=== PATIENT | female | born 1995 | race Caucasian/White ===

== ENCOUNTER 2017-10-25 19:30 | Emergency (ER) | payer OTHER ==
[2017-10-25] MEDS ORDERED: IPRATROPIUM BROM 0.5MG/2.5ML ONE ×2 (20:11→20:13)
[2017-10-25] MEDS ORDERED: ONDANSETRON 4 MG (ODT) TAB ONE ×2 (20:12→20:14)
[2017-10-25] MEDS ORDERED: LEVALBUTEROL 1.25 MG/3 ML NEB ONE ×2 (20:12→20:14)
--- NOTE | 2017-10-25 20:46 | ER ---
Nurse's Notes [facility] Name: Deborah Torres Age: 22 yrs Sex: Female : 1995 Arrival Date: 10/25/2017 Time: 19:36 Bed 18 Private MD: Diagnosis: Cough Presentation: 10/25 19:44 Presenting complaint: Patient states: cough \T\ congestion x 2 weeks. Was seen by PCP and aa1 given allergy medicine, nasal spray, and an inhaler but nothing is helping. Transition of care: patient was not received from another setting of care. Onset of symptoms was October 10, 2017. Care prior to arrival: None. 19:44 Method Of Arrival: Ambulatory aa1 19:44 Acuity: NORM 4 aa1 Triage Assessment: 19:46 General: Appears in no apparent distress. comfortable, Behavior is calm, cooperative, aa1 appropriate for age. 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 - Social history:: Smoking status: Patient uses tobacco products, denies chronic smoking, but will smoke occasionally. Screenin:00 Abuse screen: Denies threats or abuse. Denies injuries from another. Nutritional aj1 screening: No deficits noted. Tuberculosis screening: No symptoms or risk factors identified. Fall Risk None identified. Assessment: 20:00 General: Appears in no apparent distress. uncomfortable, Behavior is calm, cooperative, aj1 appropriate for age. Pain: Complains of pain in left aspect of posterior pharynx and right aspect of posterior pharynx Pain does not radiate. Neuro: Level of Consciousness is awake, alert, obeys commands, Oriented to person, place, time, situation, Speech is normal, Facial symmetry appears normal. Cardiovascular: Heart tones S1 S2 present Patient's skin is warm and dry. Rhythm is regular. Respiratory: Airway is patent Respiratory effort is even, unlabored, Respiratory pattern is regular, symmetrical, Breath sounds are clear bilaterally. GI: Abdomen is non-distended, Reports vomiting, Patient currently denies diarrhea, nausea. : Denies burning with urination. EENT: Reports nasal congestion nasal discharge sore throat. Derm: No signs and/or symptoms reported regarding the dermatologic system. Skin is pink, warm \T\ dry. normal. Musculoskeletal: No signs and/or symptoms reported regarding the musculoskeletal system. Circulation, motion, and sensation intact. 21:11 Reassessment: Patient appears in no apparent distress at this time. No changes from aj1 previously documented assessment. Patient and/or family updated on plan of care and expected duration. Pain level reassessed. Patient is alert, oriented x 3, equal unlabored respirations, skin warm/dry/pink. Vital Signs: 19:46 BP 134 / 82; Pulse 117; Resp 20; Temp 97.6; Pulse Ox 98% on R/A; Weight 84.82 kg; aa1 Height 5 ft. 4 in. (162.56 cm); Pain 10/10; 21:06 BP 132 / 92; Pulse 127; Resp 20; Pulse Ox 100% on R/A; aj1 19:46 Body Mass Index 32.10 (84.82 kg, 162.56 cm) aa1 21:06 Notified Matt Hooper NP of patient vital signs, ok to discharge patietn aj1 ED Course: 19:36 Patient arrived in ED. al2 19:45 Triage completed. aa1 19:46 Arm band placed on left wrist. Patient placed in an exam room, on a stretcher. aa1 19:47 Tea Hooper [facility]C [facility]. kb 19:47 Sheng Griffith MD is Attending Physician. kb 19:51 Thea Jules, ELÍAS is Primary Nurse. aj1 20:00 Patient has correct armband on for positive identification. Bed in low position. Call aj1 light in reach. Side rails up X 1. 20:00 Strep Sent. aa1 20:00 No provider procedures requiring assistance completed. Patient did not have IV access aj during this emergency room visit. 20:27 Patient moved to radiology via wheelchair. kp1 20:33 Patient moved back from radiology. kp1 Administered Medications: 20:00 Drug: Xopenex (3) 1.25 mg Route: Inhalation; aa1 20:00 Drug: AtroVENT Aerosol 0.5 mg Route: Inhalation; aa1 20:00 Drug: Zofran 4 mg Route: PO; aa1 21:12 Follow up: Response: No adverse reaction aj1 Outcome: 20:46 Discharge ordered by . kb 21:11 Discharged to home ambulatory. aj1 21:11 Condition: good 21:11 Discharge instructions given to patient, Instructed on discharge instructions, follow up and referral plans. Demonstrated understanding of instructions, follow-up care. 21:11 Patient left the ED. aj1 Signatures: Tea Hooper, HUMERA-C SIEBEL CRM DEVELOPER-Thea Padgett RN RN aj1 Myriam Gonzalez RN RN aa1 Cherry Rosales kp1 Cici Magana al2
--- NOTE | 2017-10-25 20:46 | EDPHYS ---
Physician Documentation [facility] Name: Deborah Torres Age: 22 yrs Sex: Female : 1995 Arrival Date: 10/25/2017 Time: 19:36 Bed 18 Private MD: ED Physician Sheng Griffith HPI: 10/25 19:55 This 22 yrs old Female presents to ER via Ambulatory with complaints of kb Cough, Congestion, Fever. 19:55 The patient or guardian reports cough, that is intermittent, described as moderate. kb Onset: The symptoms/episode began/occurred 2 week(s) ago. Severity of symptoms: At their worst the symptoms were mild, moderate, in the emergency department the symptoms are unchanged. Modifying factors: The symptoms are alleviated by nothing, the symptoms are aggravated by nothing. Associated signs and symptoms: Pertinent positives: rhinorrhea, sore throat, vomiting, Pertinent negatives: chest pain, diarrhea, ear ache, fever, nausea. The patient has not experienced similar symptoms in the past. The patient has not recently seen a physician. 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 - Social history:: Smoking status: Patient uses tobacco products, denies chronic smoking, but will smoke occasionally. ROS: 19:54 Cardiovascular: Negative for chest pain, palpitations, and edema, Back: Negative for kb injury and pain, : Negative for injury, bleeding, discharge, and swelling, MS/Extremity: Negative for injury and deformity, Skin: Negative for injury, rash, and discoloration, Neuro: Negative for headache, weakness, numbness, tingling, and seizure. 19:54 Constitutional: Positive for fever, Negative for body aches, chills, fatigue, malaise, poor PO intake, weight loss. 19:54 ENT: Positive for rhinorrhea, sinus congestion, sore throat. 19:54 Respiratory: Positive for cough, Negative for dyspnea on exertion, hemoptysis, orthopnea, pleurisy, shortness of breath, sputum production, wheezing. Exam: 19:54 Constitutional: This is a well developed, well nourished patient who is awake, alert, kb and in no acute distress. Head/Face: Normocephalic, atraumatic. ENT: Nares patent. No nasal discharge, no septal abnormalities noted. Tympanic membranes are normal and external auditory canals are clear. Oropharynx with no redness, swelling, or masses, exudates, or evidence of obstruction, uvula midline. Mucous membranes moist. Neck: Trachea midline, no thyromegaly or masses palpated, and no cervical lymphadenopathy. Supple, full range of motion without nuchal rigidity, or vertebral point tenderness. No Meningismus. Chest/axilla: Normal chest wall appearance and motion. Nontender with no deformity. No lesions are appreciated. Cardiovascular: Regular rate and rhythm with a normal S1 and S2. No gallops, murmurs, or rubs. Normal PMI, no JVD. No pulse deficits. Respiratory: Lungs have equal breath sounds bilaterally, clear to auscultation and percussion. No rales, rhonchi or wheezes noted. No increased work of breathing, no retractions or nasal flaring. Abdomen/GI: Soft, non-tender, with normal bowel sounds. No distension or tympany. No guarding or rebound. No evidence of tenderness throughout. Skin: Warm, dry with normal turgor. Normal color with no rashes, no lesions, and no evidence of cellulitis. MS/ Extremity: Pulses equal, no cyanosis. Neurovascular intact. Full, normal range of motion. Neuro: Awake and alert, GCS 15, oriented to person, place, time, and situation. Cranial nerves II-XII grossly intact. Motor strength 5/5 in all extremities. Sensory grossly intact. Cerebellar exam normal. Normal gait. Vital Signs: 19:46 BP 134 / 82; Pulse 117; Resp 20; Temp 97.6; Pulse Ox 98% on R/A; Weight 84.82 kg; aa1 Height 5 ft. 4 in. (162.56 cm); Pain 10/10; 21:06 BP 132 / 92; Pulse 127; Resp 20; Pulse Ox 100% on R/A; aj1 19:46 Body Mass Index 32.10 (84.82 kg, 162.56 cm) aa1 21:06 Notified Matt Hooper NP of patient vital signs, ok to discharge fordmeghana aj1 MDM: 19:47 Patient medically screened. kb 19:52 Data reviewed: vital signs, nurses notes. Data interpreted: Pulse oximetry: on room air kb is 98 %. Interpretation: normal. Counseling: I had a detailed discussion with the patient and/or guardian regarding: the historical points, exam findings, and any diagnostic results supporting the discharge/admit diagnosis, lab results, radiology results, the need for outpatient follow up, a family practitioner, to return to the emergency department if symptoms worsen or persist or if there are any questions or concerns that arise at home. 10/25 19:48 Order name: Strep 10/25 20:36 Order name: Group A Streptococcus Rapid Sc; Complete Time: 20:37 EDMS 10/25 19:48 Order name: Chest Pa And Lat (2 Views) XRAY 10/25 20:52 Order name: RAD; Complete Time: 20:55 EDMS Administered Medications: 20:00 Drug: Xopenex (3) 1.25 mg Route: Inhalation; aa1 20:00 Drug: AtroVENT Aerosol 0.5 mg Route: Inhalation; aa1 20:00 Drug: Zofran 4 mg Route: PO; aa1 21:12 Follow up: Response: No adverse reaction aj1 Disposition: 21:13 Co-signature as Attending Physician, Sheng Griffith MD. pkl Disposition: 10/25/17 20:46 Discharged to Home. Impression: Cough. - Condition is Stable. - Discharge Instructions: Cough, Adult, [id number]. - Medication Reconciliation Form, Thank You Letter, Antibiotic Education, Prescription Opioid Use form. - Follow up: Emergency Department; When: As needed; Reason: Worsening of condition. Follow up: Private Physician; When: 2 - 3 days; Reason: Recheck today's complaints, Continuance of care, Re-evaluation by your physician. Signatures: Dispatcher [employer] EDPR Tea Hooper, NAM SNOWP-Thea Padgett RN RN aj1 Myriam Gonzalez RN RN aa1 Sheng Griffith, MD MD pkl
--- NOTE | 2017-10-25 20:52 | RAD REPORT ---
EXAM DESCRIPTION: RAD - Chest Pa And Lat (2 Views) - 10/25/2017 8:33 pm CLINICAL HISTORY: Persistent cough and congestion COMPARISON: October 2015 TECHNIQUE: PA and lateral views of the chest were obtained. FINDINGS: The lungs are clear. Lung markings are similar to comparison. Heart size is normal and ce ntral vasculature is within normal limits. No pleural effusion or pneumothorax seen. No acute bony finding noted. No aortic abnormality. IMPRESSION: No acute cardiopulmonary process. No significant interval change.
[2017-10-25 21:23] VITALS: BP 132/92; O2SAT 100
[2017-10-25 21:24] VITALS: TEMP 97.6
== END 2017-10-25 21:11 | disposition home or self-care (01) ==
LOC: ER 19:30
DX: R05 Cough (principal); F41.9 Anxiety disorder, unspecified; F32.9 Major depressive disorder, single episode, unspecified; J45.909 Unspecified asthma, uncomplicated; Z72.0 Tobacco use; Z88.5 Allergy status to narcotic agent; Z88.8 Allergy status to other drugs, medicaments and biological substances; Z91.048 Other nonmedicinal substance allergy status
CPT/HCPCS: 71046; 87070; 87081; 99284

== ENCOUNTER 2017-11-06 11:57 | Emergency (ER) | payer OTHER ==
--- OUTSIDE RECORDS SUMMARY | 2017-11-06 12:00 | XMS REPORT | Clinical Summary ---
:1995 Author Organization [facility] Address [address] [place] [address] Phone Care Team Providers Name Role Phone Unavailable Primary Care Provider Unavailable Allergies Not on File Current Medications Not on file Active Problems Not on file Encounters Date Type Specialty Care Team Description 02/05/2017 Telephone Transplant Anurag Belcher RN Kidney Transplant Donor Pre-evaluation 02/05/2017 Abstract Transplant Abdullahi Terrazas after 11/05/2016 Social History Tobacco Use Types Packs/Day Years Used Date Never Assessed Sex Assigned at Date Recorded Not on file Last Filed Vital Signs Not on file Plan of Treatment Health Maintenance Due Date Last Done Comments INFLUENZA VACCINE 05/03/2017 Results Not on fileafter 11/05/2016
[2017-11-06 12:50] LABS: Absolute Lymphocytes (CBC) 2.4 K/uL (0.7-4.9); Absolute Monocytes 0.4 K/uL (0.1-1.3); Absolute Neutrophil 5.4 K/uL (1.8-8.0); Basophils % 0.4 % (0-1.3); Eosinophils % 4.6 % (0-4.4); Hematocrit 35.4 % (36.0-45.0); Lymphocytes % 27.4 % (15.3-44.8); MCH 19.1 pg (27.0-35.0); MCV 62.4 fL (80-100); MPV 9.2 fL (7.6-11.3); Monocytes % 4.6 % (3.3-12.3); RBC Red Blood Cell Count 5.68 M/uL (3.86-4.86)
[2017-11-06 12:52] LABS: Bicarbonate 22 mEq/L (21-31); Glucose Level 102 mg/dL (65-120); Lipase 22 U/L (22-51); Potassium 3.8 mEq/L (3.6-5.0); Sodium Level 136 mEq/L (135-145)
--- NOTE | 2017-11-06 12:57 | RAD REPORT ---
EXAM DESCRIPTION: US - Abdomen Exam Limited - 11/06/2017 12:31 pm CLINICAL HISTORY: Abdominal pain. COMPARISON: 2012 FINDINGS: The gallbladder wall is not thickened. A gallstone is not seen. The biliary tree is normal caliber. Fatty infiltration liver seen IMPRESSION: Unremarkable gallbladder ultrasound.
[2017-11-06 12:58] LABS: ALT/SGPT 80 IU/L (10-60); AST/SGOT 50 IU/L (10-42); Alkaline Phosphatase 113 IU/L (42-121); Amylase Level 51 U/L (28-100); BUN Blood Urea Nitrogen 14 mg/dL (6-20); Bilirubin Direct 0.1 mg/dL (0-0.2); Bilirubin Total 0.5 mg/dL (0.3-1.2); Protein, Total 7.6 g/dL (6.0-8.3)
[2017-11-06 13:12] LABS: Blood Morphology Comment NOTED (NOT SEEN); Hypochromasia 2+; Platelet Estimate ADEQ; Urine White Blood Cell Casts OK
--- NOTE | 2017-11-06 13:15 | ER ---
Nurse's Notes [facility] Name: Deborah Torres Age: 22 yrs Sex: Female : 1995 Arrival Date: 11/06/2017 Time: 11:59 Bed 20 Private MD: Diagnosis: Upper abdominal pain, unspecified Presentation: 11/06 12:02 Presenting complaint: Patient states: I had a miscarriage in August, got a depo-shot la1 last week and been having epigastric pain that radiates to my back and nausea. Transition of care: patient was not received from another setting of care. Onset of symptoms was November 06, 2017. Care prior to arrival: None. 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 - Social history:: Smoking status: Patient uses tobacco products, denies chronic smoking, but will smoke occasionally. Screenin:24 Abuse screen: Denies threats or abuse. Nutritional screening: No deficits noted. em Tuberculosis screening: No symptoms or risk factors identified. Fall Risk None identified. Assessment: 12:12 General: Appears in no apparent distress. uncomfortable, Behavior is calm, cooperative. em Pain: Complains of pain in epigastric area, right upper quadrant and left upper quadrant Pain radiates to left low back and right low back Pain currently is 8 out of 10 on a pain scale. Quality of pain is described as crampy, pressure, Pain began 2 weeks ago. Neuro: Level of Consciousness is awake, alert, obeys commands, Oriented to person, place, time, situation. Cardiovascular: Capillary refill < 3 seconds Patient's skin is warm and dry. Respiratory: Airway is patent Respiratory effort is even, unlabored, Respiratory pattern is regular, symmetrical. GI: Abdomen is flat, Bowel sounds present X 4 quads. Abd is soft X 4 quads Abdomen is tender to palpation in right upper quadrant and left upper quadrant Reports nausea, vomiting, Patient currently denies diarrhea. : Reports urinary frequency, Denies burning with urination. EENT: No signs and/or symptoms were reported regarding the EENT system. Derm: Skin is intact, Skin is pink, warm \T\ dry. Musculoskeletal: Range of motion: intact in all extremities. 12:15 General: The previous assessment is accurate, call light remains within reach. . ss 12:52 Reassessment: Patient appears in no apparent distress at this time. Patient and/or em family updated on plan of care and expected duration. Pain level reassessed. Patient is alert, oriented x 3, equal unlabored respirations, skin warm/dry/pink. Patient states feeling better. 13:40 Reassessment: Patient appears in no apparent distress at this time. Patient and/or em family updated on plan of care and expected duration. Pain level reassessed. Patient is alert, oriented x 3, equal unlabored respirations, skin warm/dry/pink. Patient states feeling better. Patient states symptoms have improved. Vital Signs: 12:03 BP 125 / 100; Pulse 102; Resp 19; Temp 98.2(TE); Pulse Ox 100% on R/A; Weight 136.08 la1 kg; Height 5 ft. 4 in. (162.56 cm); 12:53 BP 120 / 95; Pulse 85; Resp 18; Pulse Ox 100% on R/A; em 13:40 BP 123 / 93; Pulse 88; Resp 18; Pulse Ox 99% on R/A; Pain 3/10; em 12:03 Body Mass Index 51.49 (136.08 kg, 162.56 cm) la1 ED Course: 11:59 Patient arrived in ED. as 12:01 Tea Hooper FNP-C is PHCP. kb 12:01 Shawn Pollard MD is Attending Physician. kb 12:03 Triage completed. la1 12:04 Arm band placed on right wrist. la1 12:08 Thanh Connolly LVN is Primary Nurse. em 12:22 No provider procedures requiring assistance completed. Initial lab(s) drawn, by me, em sent to lab. Inserted saline lock: 20 gauge in right antecubital area, using aseptic technique. Blood collected. 12:24 Patient has correct armband on for positive identification. Placed in gown. Bed in low em position. Call light in reach. Side rails up X2. 12:25 Urine collected: clean catch specimen, clear. mh5 12:28 US Abdomen Limited In Process Unspecified. EDMS 12:32 Ultrasound completed. Patient tolerated well. sg3 13:49 IV discontinued, intact, bleeding controlled, No redness/swelling at site. Pressure em dressing applied. Administered Medications: 13:46 Drug: Bentyl 20 mg Route: PO; em 13:46 Follow up: Response: Medication administered at discharge. em Outcome: 13:14 Discharge ordered by . nicki 13:49 Discharged to home ambulatory. em 13:49 Condition: good 13:49 Discharge instructions given to patient, Instructed on discharge instructions, follow up and referral plans. medication usage, Demonstrated understanding of instructions, follow-up care, medications, Prescriptions given X 1. 13:51 Patient left the ED. em Signatures: Dispatcher [employer] EDWI Tea Hooper, RIPSHEAR OPERATOR-C RIPSHEAR OPERATOR-Ckb Thanh Connolly, POISER POISER em Radha Bourne Shelby, RN RN ss Attema, Lee, RN RN la1 Martinez, [facility] Lesly Dietz sg3
--- NOTE | 2017-11-06 13:15 | EDPHYS ---
Physician Documentation [facility] Name: Deborah Torres Age: 22 yrs Sex: Female : 1995 Arrival Date: 11/06/2017 Time: 11:59 Bed 20 Private MD: ED Physician Shawn Pollard HPI: 11/06 12:21 This 22 yrs old Female presents to ER via Ambulatory with complaints of kb Abdominal Pain. 12:21 The patient presents with abdominal pain in the upper abdomen. Onset: The kb symptoms/episode began/occurred 1 week(s) ago. The symptoms do not radiate. Associated signs and symptoms: Pertinent positives: diarrhea, Pertinent negatives: nausea and vomiting. The symptoms are described as achy, constant. Modifying factors: The symptoms are alleviated by nothing, the symptoms are aggravated by pressure. Severity of pain: At its worst the pain was moderate in the emergency department the pain is unchanged. The patient has not experienced similar symptoms in the past. The patient has not recently seen a physician. CHICKEN BONER: 13:50 LMP 10/28/2017 em Historical: - Allergies: 12:03 HYDROCODONE; la1 12:03 promethazine HCl; la1 12:03 Tape; la1 - PMHx: 12:03 Anxiety; Asthma; Bipolar disorder; Depression; Pre-eclampsia; premature births, 2 la1 miscarrages; Thyroid problem; - Immunization history:: Adult Immunizations up to date. - Social history:: Smoking status: Patient uses tobacco products, denies chronic smoking, but will smoke occasionally. ROS: 12:22 Constitutional: Negative for fever, chills, and weight loss, Cardiovascular: Negative kb for chest pain, palpitations, and edema, Respiratory: Negative for shortness of breath, cough, wheezing, and pleuritic chest pain, : Negative for injury, bleeding, discharge, and swelling, MS/Extremity: Negative for injury and deformity, Skin: Negative for injury, rash, and discoloration, Neuro: Negative for headache, weakness, numbness, tingling, and seizure. 12:22 Abdomen/GI: Positive for abdominal pain, diarrhea, Negative for nausea and vomiting. Exam: 12:22 Constitutional: This is a well developed, well nourished patient who is awake, alert, kb and in no acute distress. Head/Face: Normocephalic, atraumatic. Chest/axilla: Normal chest wall appearance and motion. Nontender with no deformity. No lesions are appreciated. Cardiovascular: Regular rate and rhythm with a normal S1 and S2. No gallops, murmurs, or rubs. Normal PMI, no JVD. No pulse deficits. Respiratory: Lungs have equal breath sounds bilaterally, clear to auscultation and percussion. No rales, rhonchi or wheezes noted. No increased work of breathing, no retractions or nasal flaring. Skin: Warm, dry with normal turgor. Normal color with no rashes, no lesions, and no evidence of cellulitis. MS/ Extremity: Pulses equal, no cyanosis. Neurovascular intact. Full, normal range of motion. Neuro: Awake and alert, GCS 15, oriented to person, place, time, and situation. Cranial nerves II-XII grossly intact. Motor strength 5/5 in all extremities. Sensory grossly intact. Cerebellar exam normal. Normal gait. 12:22 Abdomen/GI: Inspection: abdomen appears normal, Bowel sounds: normal, in all quadrants, Palpation: soft, in all quadrants, mild abdominal tenderness, in the right lower quadrant and left lower quadrant, moderate abdominal tenderness, in the right upper quadrant and left upper quadrant. Vital Signs: 12:03 BP 125 / 100; Pulse 102; Resp 19; Temp 98.2(TE); Pulse Ox 100% on R/A; Weight 136.08 la1 kg; Height 5 ft. 4 in. (162.56 cm); 12:53 BP 120 / 95; Pulse 85; Resp 18; Pulse Ox 100% on R/A; em 13:40 BP 123 / 93; Pulse 88; Resp 18; Pulse Ox 99% on R/A; Pain 3/10; em 12:03 Body Mass Index 51.49 (136.08 kg, 162.56 cm) la1 MDM: 12:05 Patient medically screened. kb 12:22 Data reviewed: vital signs, nurses notes. Data interpreted: Pulse oximetry: on room air kb is 100 %. Interpretation: normal. 13:13 Counseling: I had a detailed discussion with the patient and/or guardian regarding: the kb historical points, exam findings, and any diagnostic results supporting the discharge/admit diagnosis, lab results, radiology results, the need for outpatient follow up, a family practitioner, to return to the emergency department if symptoms worsen or persist or if there are any questions or concerns that arise at home. 11/06 12:05 Order name: Amylase, Serum; Complete Time: 13:02 kb 11/06 12:05 Order name: Basic Metabolic Panel; Complete Time: 13:02 kb 11/06 12:05 Order name: CBC with Diff; Complete Time: 13:13 kb 11/06 12:05 Order name: Hepatic Function; Complete Time: 13:02 kb 11/06 12:05 Order name: Lipase; Complete Time: 13:02 kb 11/06 12:05 Order name: Urine Microscopic Only; Complete Time: 13:26 kb 11/06 12:05 Order name: Urine Test (obtain specimen); Complete Time: 12:22 kb 11/06 12:05 Order name: IV Saline Lock; Complete Time: 12:22 kb 11/06 12:05 Order name: US Abdomen Limited; Complete Time: 13:02 kb 11/06 12:20 Order name: Urine Dipstick--Ancillary (enter results); Complete Time: 13:29 ag 11/06 12:20 Order name: Urine --Ancillary (enter results); Complete Time: 13:29 ag 11/06 12:53 Order name: CBC Smear Scan; Complete Time: 13:13 EDMS 11/06 13:25 Order name: Urine Culture EDMS 11/06 12:05 Order name: Labs collected and sent; Complete Time: 12:22 kb 11/06 12:05 Order name: Urine Dipstick-Ancillary (obtain specimen); Complete Time: 12:22 kb Administered Medications: 13:46 Drug: Bentyl 20 mg Route: PO; em 13:46 Follow up: Response: Medication administered at discharge. em Disposition: 15:49 Co-signature as Attending Physician, Shawn Pollard MD I agree with the assessment and emilie plan of care. Disposition: 11/06/17 13:14 Discharged to Home. Impression: Upper abdominal pain, unspecified. - Condition is Stable. - Discharge Instructions: Abdominal Pain, Adult, [id number]. - Prescriptions for Bentyl 20 mg Oral Tablet - take 1 tablet by ORAL route every 6 hours As needed; 20 tablet. - Medication Reconciliation Form, Thank You Letter, Antibiotic Education, Prescription Opioid Use form. - Follow up: Emergency Department; When: As needed; Reason: Worsening of condition. Follow up: Private Physician; When: 2 - 3 days; Reason: Recheck today's complaints, Continuance of care, Re-evaluation by your physician. Signatures: Dispatcher [employer] Tea Ambrosio, NAM GRUBBS-Shawn Perez MD MD cha Munoz, Edgar, QUILTING MACHINE OPERATOR QUILTING MACHINE OPERATOR Donnell Segundo, RN RN la1
[2017-11-06 13:22] LABS: Urine Bacteria 20-50 /HPF (<20); Urine RBC <5 /HPF (NONE SEEN)
[2017-11-06 13:23] LABS: Urine Culture Reflex Order REFLEXED
[2017-11-06 13:24] LABS: Urine Amorphous Sediment 1+ /HPF (NONE SEEN); Urine Mucus 1+ /HPF (NONE SEEN)
[2017-11-06 13:28] LABS: Urine Blood NEGATIVE (NEG); Urine Glucose NEGATIVE (NEG); Urine Protein NEGATIVE (NEG); Urine Specific Gravity 1.025 (1.005-1.030); Urine pH 5.5 (5.0-7.0)
[2017-11-06 14:02] VITALS: TEMP 98.2
[2017-11-06] MEDS ORDERED: DICYCLOMINE HCL 10 MG CAP ONE (14:03)
[2017-11-06 14:05] VITALS: BP 123/93; O2SAT 99
== END 2017-11-06 13:51 | disposition home or self-care (01) ==
LOC: ER 11:57
DX: R10.10 Upper abdominal pain, unspecified (principal); Z72.0 Tobacco use; Z88.5 Allergy status to narcotic agent; Z88.8 Allergy status to other drugs, medicaments and biological substances
CPT/HCPCS: 36415; 76705; 80048; 80076; 81003; 81015; 81025; 82150; 83690; 85025; 87086; 87088; 99284

== ENCOUNTER 2018-07-27 16:44 | Emergency (ER) | payer OTHER, SELFPAY ==
--- OUTSIDE RECORDS SUMMARY | 2018-07-27 16:46 | XMS REPORT | Clinical Summary ---
:1995 Author Organization [facility] Address [address] [place] [address] Care Team Providers Name Role Phone Unavailable Primary Care Provider Unavailable Allergies Not on File Medications Not on file Active Problems Not on file Social History Tobacco Use Types Packs/Day Years Used Date Never Assessed Sex Assigned at Date Recorded Not on file Job Start Date Occupation Industry Not on file Not on file Not on file Travel History Travel Start Travel End No recent travel history available. Last Filed Vital Signs Not on file Plan of Treatment Health Maintenance Due Date Last Done Comments INFLUENZA VACCINE 05/03/2018 Results Not on fileafter 07/26/2017
--- NOTE | 2018-07-27 19:21 | ER ---
Nurse's Notes [facility] Name: Deborah Torres Age: 23 yrs Sex: Female : 1995 Arrival Date: 07/27/2018 Time: 16:47 Bed 8 Private MD: Diagnosis: Otitis externa Presentation: 07/27 17:02 Presenting complaint: Patient states: Right ear pain for 2 weeks and pelvic cramping aj for 2 days. Transition of care: patient was not received from another setting of care. Onset of symptoms was July 12, 2018. Risk Assessment: Do you want to hurt yourself or someone else? Patient reports no desire to harm self or others. Initial Sepsis Screen: Does the patient meet any 2 criteria? No. Patient's initial sepsis screen is negative. Does the patient have a suspected source of infection? No. Patient's initial sepsis screen is negative. Care prior to arrival: None. 17:02 Method Of Arrival: Ambulatory aj 17:02 Acuity: NORM 3 aj Triage Assessment: 17:04 General: Appears in no apparent distress. comfortable, Behavior is calm, cooperative, aj appropriate for age. Pain: Complains of pain in right ear. EENT: Reports pain in right ear. Neuro: Level of Consciousness is awake, alert, obeys commands, Oriented to person, place, time, situation, Appropriate for age. Respiratory: Airway is patent Respiratory effort is even, unlabored, Respiratory pattern is regular, symmetrical. GI: Reports cramping. Derm: Skin is intact, is healthy with good turgor, Skin is pink, warm \T\ dry. normal. 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 - Social history:: Smoking status: Patient uses tobacco products, denies chronic smoking, but will smoke occasionally, Patient uses alcohol, only on a social basis. - Ebola Screening: : Patient negative for fever greater than or equal to 101.5 degrees Fahrenheit, and additional compatible Ebola Virus Disease symptoms Patient denies exposure to infectious person Patient denies travel to an Ebola-affected area in the 21 days before illness onset No symptoms or risks identified at this time. Screenin:07 Abuse screen: Denies threats or abuse. Denies injuries from another. Nutritional hj screening: No deficits noted. Tuberculosis screening: No symptoms or risk factors identified. Fall Risk None identified. Assessment: 18:13 General: Appears in no apparent distress. Behavior is calm, cooperative. Pain: Pain hb currently is 1 out of 10 on a pain scale. Neuro: Level of Consciousness is awake, alert, obeys commands, Oriented to person, place, time, situation. Cardiovascular: Capillary refill < 3 seconds Patient's skin is warm and dry. Respiratory: Airway is patent Trachea midline Respiratory effort is even, unlabored, Respiratory pattern is regular, symmetrical, Breath sounds are clear bilaterally. GI: No signs and/or symptoms were reported involving the gastrointestinal system. : Reports cramping. EENT: No signs and/or symptoms were reported regarding the EENT system. Derm: Skin is intact, is healthy with good turgor, Skin is pink, warm \T\ dry. Musculoskeletal: No signs and/or symptoms reported regarding the musculoskeletal system. 18:58 Reassessment: Patient and/or family updated on plan of care and expected duration. Pain hj level reassessed. Patient is alert, oriented x 3, equal unlabored respirations, skin warm/dry/pink. awaiting POC;. Vital Signs: 17:04 BP 127 / 84; Pulse 98; Resp 18; Temp 97.5; Pulse Ox 99% on R/A; Weight 97.52 kg; Height aj 5 ft. 4 in. (162.56 cm); 18:39 BP 125 / 80; Pulse 95; Resp 18; Pulse Ox 99% on R/A; hj 17:04 Body Mass Index 36.90 (97.52 kg, 162.56 cm) aj ED Course: 16:47 Patient arrived in ED. rg4 17:03 Triage completed. aj 17:04 Arm band placed on left wrist. Patient placed in waiting room, Patient notified of wait aj time. 17:35 Ethan Block MD is Attending Physician. tw4 17:50 Larry Patten, RN is Primary Nurse. hj 18:07 Patient has correct armband on for positive identification. Placed in gown. Bed in low hj position. Call light in reach. Side rails up X 1. Adult w/ patient. 19:25 No provider procedures requiring assistance completed. Patient did not have IV access ak1 during this emergency room visit. Administered Medications: No medications were administered Outcome: 19:20 Discharge ordered by . tw4 19:25 Discharged to home ambulatory, with family. ak1 19:25 Condition: good 19:25 Discharge instructions given to patient, Instructed on discharge instructions, follow up and referral plans. medication usage, Demonstrated understanding of instructions, follow-up care, medications, Prescriptions given X 1. 19:41 Patient left the ED. ak1 Signatures: Linda Dickerson RN RN Stephenie De Leon RN RN ak1 Larry Patten, RN Zonia Peres RN RN hb Garcia, Rubi 4 Ethan Block MD MD 4
--- NOTE | 2018-07-27 19:21 | EDPHYS ---
Physician Documentation [facility] Name: Deborah Torres Age: 23 yrs Sex: Female : 1995 Arrival Date: 07/27/2018 Time: 16:47 Bed 8 Private MD: ED Physician Ethan Block HPI: 07/27 19:23 This 23 yrs old Female presents to ER via Ambulatory with complaints of Ear tw4 Pain, Diarrhea, Abdominal Pain. 19:23 The patient presents with pain. The complaints affect the right ear. Onset: The tw4 symptoms/episode began/occurred yesterday. Modifying factors: The symptoms are alleviated by nothing, the symptoms are aggravated by nothing. Associated signs and symptoms: The patient has no apparent associated signs or symptoms. Severity of symptoms: At their worst the symptoms were moderate in the emergency department the symptoms are unchanged. The patient has not experienced similar symptoms in the past. RN INTENSIVE CARE UNIT: 17:04 LMP N/A - Irregular menses aj Historical: - Allergies: 17:04 HYDROCODONE; aj 17:04 promethazine HCl; aj 17:04 Tape; aj - Home Meds: 17:04 ProAir HFA 90 mcg/actuation inhalation HFAA 2 puffs every 4-6 hours [Active]; aj - PMHx: 17:04 Anxiety; Asthma; Bipolar disorder; Depression; Pre-eclampsia; premature births, 2 aj miscarrages; Thyroid problem; - PSHx: 17:04 Tonsillectomy; ; aj - Immunization history:: Adult Immunizations up to date. - Social history:: Smoking status: Patient uses tobacco products, denies chronic smoking, but will smoke occasionally, Patient uses alcohol, only on a social basis. - Ebola Screening: : Patient negative for fever greater than or equal to 101.5 degrees Fahrenheit, and additional compatible Ebola Virus Disease symptoms Patient denies exposure to infectious person Patient denies travel to an Ebola-affected area in the 21 days before illness onset No symptoms or risks identified at this time. ROS: 19:23 Constitutional: Negative for fever, chills, and weight loss, Eyes: Negative for injury, tw4 pain, redness, and discharge. 19:23 Cardiovascular: Negative for chest pain, palpitations, and edema, Respiratory: Negative for shortness of breath, cough, wheezing, and pleuritic chest pain. 19:23 Back: Negative for injury and pain, MS/Extremity: Negative for injury and deformity, Skin: Negative for injury, rash, and discoloration. 19:23 ENT: Positive for ear pain, Negative for injury or acute deformity, drainage from ear(s), Gum pain hearing loss, pulling at ears, Teeth pain tinnitus, nasal discharge. 19:23 Abdomen/GI: Positive for abdominal pain, Negative for nausea and vomiting, nausea, vomiting, and diarrhea, nausea, vomiting, diarrhea. Exam: 19:23 Constitutional: This is a well developed, well nourished patient who is awake, alert, tw4 and in no acute distress. Head/Face: Normocephalic, atraumatic. Chest/axilla: Normal chest wall appearance and motion. Nontender with no deformity. No lesions are appreciated. Cardiovascular: Regular rate and rhythm with a normal S1 and S2. No gallops, murmurs, or rubs. Normal PMI, no JVD. No pulse deficits. Respiratory: Lungs have equal breath sounds bilaterally, clear to auscultation and percussion. No rales, rhonchi or wheezes noted. No increased work of breathing, no retractions or nasal flaring. Abdomen/GI: Soft, non-tender, with normal bowel sounds. No distension or tympany. No guarding or rebound. No evidence of tenderness throughout. Back: No spinal tenderness. No costovertebral tenderness. Full range of motion. MS/ Extremity: Pulses equal, no cyanosis. Neurovascular intact. Full, normal range of motion. Neuro: Awake and alert, GCS 15, oriented to person, place, time, and situation. Cranial nerves II-XII grossly intact. Motor strength 5/5 in all extremities. Sensory grossly intact. Cerebellar exam normal. Normal gait. Vital Signs: 17:04 BP 127 / 84; Pulse 98; Resp 18; Temp 97.5; Pulse Ox 99% on R/A; Weight 97.52 kg; Height aj 5 ft. 4 in. (162.56 cm); 18:39 BP 125 / 80; Pulse 95; Resp 18; Pulse Ox 99% on R/A; hj 17:04 Body Mass Index 36.90 (97.52 kg, 162.56 cm) aj MDM: 17:51 Patient medically screened. tw4 19:23 Differential diagnosis: otitis media, otitis externa. Data reviewed: vital signs, tw4 nurses notes. Counseling: I had a detailed discussion with the patient and/or guardian regarding: the historical points, exam findings, and any diagnostic results supporting the discharge/admit diagnosis. 07/27 18:15 Order name: Urine Dipstick--Ancillary (enter results) bd 07/27 18:15 Order name: Urine --Ancillary (enter results) bd Administered Medications: No medications were administered Disposition: 07/27/18 19:20 Discharged to Home. Impression: Otitis externa. - Condition is Stable. - Discharge Instructions: Otitis Externa. - Prescriptions for Cortisporin- TC 3.3-3-10-0.5 mg/mL Otic Suspension - instill 4 drop by OTIC route every 6 hours; 1 bottle. - Medication Reconciliation Form, Thank You Letter, Antibiotic Education, Prescription Opioid Use form. - Follow up: Private Physician; When: Upon discharge from the Emergency Department; Reason: Recheck today's complaints, Continuance of care. - Problem is new. - Symptoms have improved. Signatures: Dispatcher [employer] EDLinda Ray, RN RN Stephenie De Leon RN RN ak1 Ethan Block MD MD tw4 Corrections: (The following items were deleted from the chart) 19:41 19:20 07/27/2018 19:20 Discharged to Home. Impression: Otitis externa. Condition is ak1 Stable. Forms are Medication Reconciliation Form, Thank You Letter, Antibiotic Education, Prescription Opioid Use. Follow up: Private Physician; When: Upon discharge from the Emergency Department; Reason: Recheck today's complaints, Continuance of care. Problem is new. Symptoms have improved. tw4
[2018-07-27 20:46] VITALS: TEMP 97.5; O2SAT 99
[2018-07-27 20:47] VITALS: BP 125/80
[2018-07-27 21:32] LABS: Urine Blood TRACE (NEG); Urine Glucose NEGATIVE (NEG); Urine Protein NEGATIVE (NEG)
== END 2018-07-27 19:41 | disposition home or self-care (01) ==
LOC: ER 16:44
DX: H60.91 Unspecified otitis externa, right ear (principal); J45.909 Unspecified asthma, uncomplicated; Z72.0 Tobacco use; Z88.5 Allergy status to narcotic agent; Z88.8 Allergy status to other drugs, medicaments and biological substances; Z91.048 Other nonmedicinal substance allergy status
CPT/HCPCS: 81003; 81025; 99282

== ENCOUNTER 2018-08-16 15:35 | Emergency (ER) | payer SELFPAY ==
--- OUTSIDE RECORDS SUMMARY | 2018-08-16 15:59 | XMS REPORT | Clinical Summary ---
:1995 Author Organization [facility] Address [address] [place] [address] Care Team Providers Name Role Phone Unavailable [...] INFLUENZA VACCINE 05/03/2018 Results Not on fileafter 08/15/2017
--- NOTE | 2018-08-16 17:44 | ER ---
Nurse's Notes [facility] Name: Deborah Torres Age: 23 yrs Sex: Female : 1995 Arrival Date: 08/16/2018 Time: 15:36 Bed 9 Private MD: Diagnosis: Left leg pain Presentation: 08/16 15:49 Presenting complaint: Patient states: i was running and fell on a hole, my whole L leg hj fell in the hole; denies hitting head or LOC;. Transition of care: patient was not received from another setting of care. Onset of symptoms was August 16, 2018. Risk Assessment: Do you want to hurt yourself or someone else? Patient reports no desire to harm self or others. Initial Sepsis Screen: Does the patient meet any 2 criteria? No. Patient's initial sepsis screen is negative. Does the patient have a suspected source of infection? No. Patient's initial sepsis screen is negative. Care prior to arrival: None. 15:49 Method Of Arrival: Ambulatory 15:49 Acuity: NORM 4 15:52 Mechanism of Injury: Fall. Trauma event details: Injury occurred in the [facility], Injury occurred: at home. Injury occurred: August 16, 2018. Triage Assessment: 15:51 General: Appears in no apparent distress. uncomfortable, Behavior is calm, cooperative, hj appropriate for age. Pain: Complains of pain in left leg Pain currently is 10 out of 10 on a pain scale. 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 - Social history:: Smoking status: Patient/guardian denies using tobacco, Patient/guardian denies using alcohol. - Ebola Screening: : Patient negative for fever greater than or equal to 101.5 degrees Fahrenheit, and additional compatible Ebola Virus Disease symptoms Patient denies exposure to infectious person Patient denies travel to an Ebola-affected area in the 21 days before illness onset. Screenin:51 Abuse screen: Denies threats or abuse. Denies injuries from another. Nutritional hj screening: No deficits noted. Tuberculosis screening: No symptoms or risk factors identified. Fall Risk None identified. Assessment: 17:00 General: Appears in no apparent distress. comfortable, Behavior is cooperative. Pain: iw Complains of pain in left knee and left leg. Neuro: Level of Consciousness is awake, alert, obeys commands, Moves all extremities. Full function. Cardiovascular: Patient's skin is warm and dry. Respiratory: Respiratory effort is even, unlabored, Respiratory pattern is regular. Derm: Skin is intact, is healthy with good turgor. Musculoskeletal: Reports pain in left knee and left leg. Vital Signs: 15:52 BP 117 / 78; Pulse 96; Resp 18; Temp 97.6(TE); Pulse Ox 100% on R/A; Weight 113.4 kg; hj Height 5 ft. 4 in. (162.56 cm); Pain 10/10; 15:52 Body Mass Index 42.91 (113.40 kg, 162.56 cm) ED Course: 15:36 Patient arrived in ED. mr 15:50 Triage completed. hj 15:51 Arm band placed on left wrist. hj 16:17 Linda Dickerson, RN is Primary Nurse. lizeth 16:21 Rodolfo Freire MD is Attending Physician. ps1 17:31 Bonnie Abad RN is Primary Nurse. iw 17:47 No provider procedures requiring assistance completed. Patient did not have IV access iw during this emergency room visit. Administered Medications: No medications were administered Outcome: 17:47 AMA AMA form signed iw 17:47 Condition: good 17:47 Discharge instructions given to patient, family, Instructed on follow up and referral plans. 17:48 Patient left the ED. iw Signatures: Linda Dickerson RN RN aj Rivera, Mary mr Bonnie Abad RN RN iw Joaquin, Henry, RN RN Rodolfo Freire MD MD ps1 Corrections: (The following items were deleted from the chart) 15:55 15:52 Pulse 96bpm; Resp 18bpm; Pulse Ox 100% RA; Temp 97.6F Temporal; 113.4 kg; Height hj 5 ft. 4 in.; BMI: 42.9; Pain 05/12; hj
--- NOTE | 2018-08-16 17:44 | EDPHYS ---
Physician Documentation [facility] Name: Deborah Torres Age: 23 yrs Sex: Female : 1995 Arrival Date: 08/16/2018 Time: 15:36 Bed 9 Private MD: ED Physician Rodolfo Freire HPI: 08/16 17:37 This 23 yrs old Female presents to ER via Ambulatory with complaints of Fall ps1 Injury. 17:37 patient states that she fell in a hole and twisted her leg and ankle. She states that ps1 she has not been able to ambulate without pain. Pain is rated as moderate and worse with movement. No medications tried prior to evaluation. . 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 - Social history:: Smoking status: Patient/guardian denies using tobacco, Patient/guardian denies using alcohol. - Ebola Screening: : Patient negative for fever greater than or equal to 101.5 degrees Fahrenheit, and additional compatible Ebola Virus Disease symptoms Patient denies exposure to infectious person Patient denies travel to an Ebola-affected area in the 21 days before illness onset. ROS: 17:37 Constitutional: Negative for fever, chills, and weight loss, Eyes: Negative for injury, ps1 pain, redness, and discharge, Cardiovascular: Negative for chest pain, palpitations, and edema, Respiratory: Negative for shortness of breath, cough, wheezing, and pleuritic chest pain, Abdomen/GI: Negative for abdominal pain, nausea, vomiting, diarrhea, and constipation, Back: Negative for injury and pain, Skin: Negative for injury, rash, and discoloration. 17:37 MS/extremity: Positive for pain. Exam: 17:37 Constitutional: This is a well developed, well nourished patient who is awake, alert, ps1 and in no acute distress. Head/Face: Normocephalic, atraumatic. Eyes: Pupils equal round and reactive to light, extra-ocular motions intact. Lids and lashes normal. Conjunctiva and sclera are non-icteric and not injected. ENT: Nares patent. No nasal discharge, no septal abnormalities noted. Tympanic membranes are normal and external auditory canals are clear. Oropharynx with no redness, swelling, or masses, exudates, or evidence of obstruction, uvula midline. Mucous membranes moist. Chest/axilla: Normal chest wall appearance and motion. Nontender with no deformity. No lesions are appreciated. Cardiovascular: Regular rate and rhythm. No gallops, murmurs, or rubs. Normal PMI, no JVD. No pulse deficits. Respiratory: Lungs have equal breath sounds bilaterally, clear to auscultation and percussion. No rales, rhonchi or wheezes noted. No increased work of breathing, no retractions or nasal flaring. Abdomen/GI: Soft, non-tender, with normal bowel sounds. No distension or tympany. No guarding or rebound. No evidence of tenderness throughout. Neuro: Awake and alert, GCS 15, oriented to person, place, time, and situation. Cranial nerves II-XII grossly intact. Sensory grossly intact. 17:37 Musculoskeletal/extremity: Extremities: grossly normal except: noted in the left knee and anterior aspect of left ankle: Vital Signs: 15:52 BP 117 / 78; Pulse 96; Resp 18; Temp 97.6(TE); Pulse Ox 100% on R/A; Weight 113.4 kg; hj Height 5 ft. 4 in. (162.56 cm); Pain 10/10; 15:52 Body Mass Index 42.91 (113.40 kg, 162.56 cm) MDM: 16:51 Patient medically screened. ps1 17:37 Data reviewed: vital signs, nurses notes. ED course: patient is requesting to leave AMA ps1 2/2 not being able to wait for imaging. R/B discussed. Wrapped with ALFREDO bandage. . 08/16 17:30 Order name: Urine Dipstick--Ancillary (enter results) bd 08/16 17:30 Order name: Urine --Ancillary (enter results) bd Administered Medications: No medications were administered Disposition: 08/16/18 17:43 Patient has left against medical advice. Impression: Left leg pain. - Patients states they are going to Home. - Condition is Stable. - Discharge Instructions: Ankle Pain. Follow up: Private Physician; When: As needed; Reason: Further diagnostic work-up, Recheck today's complaints, Re-evaluation by your physician. Follow up: Emergency Department; When: As needed; Reason: Worsening of condition. - Problem is new. - Symptoms have improved. Signatures: Dispatcher [employer] EDBonnie Monroe RN RN iw Larry Patten RN RN hj Rodolfo Freire MD MD ps1 Corrections: (The following items were deleted from the chart) 17:48 17:43 08/16/2018 17:43 Patients has left against medical advice. Impression: Left leg iw pain. Patient states they are going to Home. Condition is Stable. Follow up: Private Physician; When: As needed; Reason: Further diagnostic work-up, Recheck today's complaints, Re-evaluation by your physician. Follow up: Emergency Department; When: As needed; Reason: Worsening of condition. Problem is new. Symptoms have improved. ps1
[2018-08-16 18:00] LABS: Urine Blood NEGATIVE (NEG); Urine Glucose NEGATIVE (NEG); Urine Protein NEGATIVE (NEG); Urine Specific Gravity 1.015 (1.005-1.030); Urine pH 5.5 (5.0-7.0)
[2018-08-16 18:35] VITALS: BP 117/78; TEMP 97.6; O2SAT 100
== END 2018-08-16 17:48 | disposition left against medical advice (07) ==
LOC: ER 15:35
DX: M79.605 Pain in left leg (principal); J45.909 Unspecified asthma, uncomplicated; Z88.6 Allergy status to analgesic agent
CPT/HCPCS: 81003; 81025; 99281

== ENCOUNTER 2018-08-24 21:35 | Emergency (ER) | payer SELFPAY ==
--- OUTSIDE RECORDS SUMMARY | 2018-08-24 21:38 | XMS REPORT | Clinical Summary ---
:1995 Author Organization [facility] Address [address] [place] [address] Care Team Providers Name Role Phone Unavailable [...] INFLUENZA VACCINE 05/03/2018 Results Not on fileafter 08/23/2017
--- NOTE | 2018-08-24 23:34 | EDPHYS ---
Physician Documentation [facility] Name: Deborah Torres Age: 23 yrs Sex: Female : 1995 Arrival Date: 08/24/2018 Time: 21:39 Bed 25 Private MD: ED Physician Ethan Block HPI: 08/25 05:26 This 23 yrs old Female presents to ER via Ambulatory with complaints of Ear tw4 Pain. 05:26 The patient presents with pain. The complaints affect the left ear. Onset: The tw4 symptoms/episode began/occurred this morning. Modifying factors: The symptoms are alleviated by nothing, the symptoms are aggravated by. Associated signs and symptoms: The patient has no apparent associated signs or symptoms. The patient has not experienced similar symptoms in the past, but family has similar symptoms. 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 - Social history:: Smoking status: Patient uses tobacco products, denies chronic smoking, but will smoke occasionally. - Ebola Screening: : No symptoms or risks identified at this time. ROS: 08/25 05:26 Constitutional: Negative for fever, chills, and weight loss, Eyes: Negative for injury, tw4 pain, redness, and discharge. ENT: Positive for ear pain. Exam: 05:26 Constitutional: This is a well developed, well nourished patient who is awake, alert, tw4 and in no acute distress. Head/Face: Normocephalic, atraumatic. ENT: Nares patent. No nasal discharge, no septal abnormalities noted. Tympanic membranes are normal and external auditory canals are clear. Oropharynx with no redness, swelling, or masses, exudates, or evidence of obstruction, uvula midline. Mucous membranes moist. Chest/axilla: Normal chest wall appearance and motion. Nontender with no deformity. No lesions are appreciated. Cardiovascular: Regular rate and rhythm with a normal S1 and S2. No gallops, murmurs, or rubs. Normal PMI, no JVD. No pulse deficits. Respiratory: Lungs have equal breath sounds bilaterally, clear to auscultation and percussion. No rales, rhonchi or wheezes noted. No increased work of breathing, no retractions or nasal flaring. Vital Signs: 08/24 22:02 BP 156 / 110 RA; Pulse 94; Resp 18; Temp 98.8(O); Pulse Ox 99% on R/A; Weight 113.4 kg; lp1 Height 5 ft. 4 in. (162.56 cm); Pain 10/10; 23:06 BP 143 / 99; Pulse 88; Resp 16; Temp 98.4(O); Pulse Ox 99% ; Pain 0/10; ls4 22:02 Body Mass Index 42.91 (113.40 kg, 162.56 cm) lp1 MDM: 22:29 Patient medically screened. tw4 23:31 Differential diagnosis: otitis media, otitis externa, acute otalgia, cerumen impaction. tw4 Data reviewed: vital signs, nurses notes. Data interpreted: Pulse oximetry: Interpretation: normal. Medical screen evaluation completed. EMTALA emergency medical condition absent. Special discussion: I discussed with the patient/guardian in detail that at this point there is no indication for admission to the hospital. It is understood, however, that if the symptoms persist or worsen the patient needs to return immediately for re-evaluation. 08/25 05:26 Counseling: I had a detailed discussion with the patient and/or guardian regarding: the tw4 historical points, exam findings, and any diagnostic results supporting the discharge/admit diagnosis. Administered Medications: No medications were administered Disposition: 08/24 23:31 [facility] [place]. tw4 Disposition: 08/24/18 23:33 Discharged to Home. Impression: Otalgia, right ear. - Condition is Stable. - Discharge Instructions: Pain Without a Known Cause, Medical Screening Exam. - Medication Reconciliation Form, Thank You Letter, Antibiotic Education, Prescription Opioid Use form. - Follow up: Private Physician; When: Upon discharge from the Emergency Department; Reason: Recheck today's complaints, Continuance of care. - Problem is new. - Symptoms are unchanged. Signatures: Tamie Davis, RN RN lp1 Ethan Block MD MD tw4 Kacey Lawrence RN RN ls4 Corrections: (The following items were deleted from the chart) 23:41 23:33 08/24/2018 23:33 Discharged to Home. Impression: Otalgia, right ear. Condition is ls4 Stable. Forms are Medication Reconciliation Form, Thank You Letter, Antibiotic Education, Prescription Opioid Use. Follow up: Private Physician; When: Upon discharge from the Emergency Department; Reason: Recheck today's complaints, Continuance of care. Problem is new. Symptoms are unchanged. tw4
--- NOTE | 2018-08-24 23:34 | ER ---
Nurse's Notes [facility] Name: Deborah Torres Age: 23 yrs Sex: Female : 1995 Arrival Date: 08/24/2018 Time: 21:39 Bed 25 Private MD: Diagnosis: Otalgia, right ear Presentation: 08/24 22:00 Presenting complaint: Patient states: Left ear pain x 1 month, worse today; Denies and lp1 fever. Transition of care: patient was not received from another setting of care. Onset of symptoms was August 24, 2018. Risk Assessment: Do you want to hurt yourself or someone else? Patient reports no desire to harm self or others. Initial Sepsis Screen: Does the patient meet any 2 criteria? No. Patient's initial sepsis screen is negative. Does the patient have a suspected source of infection? No. Patient's initial sepsis screen is negative. Care prior to arrival: None. 22:00 Method Of Arrival: Ambulatory lp1 22:00 Acuity: NORM 4 lp1 Triage Assessment: 22:03 General: Appears uncomfortable, Behavior is crying. EENT: Reports pain in left ear. 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 - Social history:: Smoking status: Patient uses tobacco products, denies chronic smoking, but will smoke occasionally. - Ebola Screening: : No symptoms or risks identified at this time. Screenin:02 Abuse screen: Denies threats or abuse. Denies injuries from another. Nutritional lp1 screening: No deficits noted. Tuberculosis screening: No symptoms or risk factors identified. Fall Risk None identified. Assessment: 22:52 General: Appears uncomfortable, Behavior is anxious. Pain: Complains of pain in left ls4 ear Pain currently is 10 out of 10 on a pain scale. Neuro: No deficits noted. Cardiovascular: No deficits noted. Respiratory: No deficits noted. Derm: No deficits noted. Musculoskeletal: No deficits noted. 23:05 Reassessment: Patient and/or family updated on plan of care and expected duration. Pain ls4 level reassessed. Patient is alert, oriented x 3, equal unlabored respirations, skin warm/dry/pink. patient resting quietly. 23:40 Reassessment: Patient appears in no apparent distress at this time. pt given ls4 information on dental clinic . Vital Signs: 22:02 BP 156 / 110 RA; Pulse 94; Resp 18; Temp 98.8(O); Pulse Ox 99% on R/A; Weight 113.4 kg; lp1 Height 5 ft. 4 in. (162.56 cm); Pain 10/10; 23:06 BP 143 / 99; Pulse 88; Resp 16; Temp 98.4(O); Pulse Ox 99% ; Pain 0/10; ls4 22:02 Body Mass Index 42.91 (113.40 kg, 162.56 cm) lp1 ED Course: 21:39 Patient arrived in ED. al2 22:01 Triage completed. lp1 22:02 Arm band placed on left wrist. lp1 22:07 Kacey Lawrence, ELÍAS is Primary Nurse. ls4 22:29 Ethan Block MD is Attending Physician. tw4 22:51 No provider procedures requiring assistance completed. ls4 22:52 Placed in gown. Bed in low position. Side rails up X 1. ls4 23:39 Patient did not have IV access during this emergency room visit. ls4 Administered Medications: No medications were administered Outcome: 23:33 Discharge ordered by . tw4 23:39 Discharged to home ambulatory. ls4 23:39 Condition: stable 23:39 Discharge instructions given to patient, family. 23:41 Patient left the ED. ls4 Signatures: Tamie Davis, RN RN lp1 Cici Magana al2 Ethan Block MD MD tw4 Kacey Lawrence RN RN ls4 Corrections: (The following items were deleted from the chart) 22:04 22:02 BP 156 / 110; Pulse 94bpm; Resp 18bpm; Pulse Ox 99% RA; Temp 98.8F Oral; 113.4 lp1 kg; Height 5 ft. 4 in.; BMI: 42.9; Pain 10/10; lp1
[2018-08-25 00:53] VITALS: O2SAT 99
[2018-08-25 00:55] VITALS: BP 143/99; TEMP 98.4
== END 2018-08-24 23:41 | disposition home or self-care (01) ==
LOC: ER 21:35
DX: H92.01 Otalgia, right ear (principal); Z72.0 Tobacco use
CPT/HCPCS: 99281

== ENCOUNTER 2018-08-28 18:51 | Emergency (ER) | payer SELFPAY ==
--- OUTSIDE RECORDS SUMMARY | 2018-08-28 18:53 | XMS REPORT | Clinical Summary ---
:1995 Author Organization [facility] Address [address] [place] [address] Care Team Providers Name Role Phone Unavailable [...] INFLUENZA VACCINE 05/03/2018 Results Not on fileafter 08/27/2017
--- OUTSIDE RECORDS SUMMARY | 2018-08-28 18:53 | XMS REPORT ---
:1995 [facility] [address] [place] [address] Dr. Cartwright [address] [place] [address] Care Team Providers Name Role Phone Unavailable Unavailable Unavailable Problems This patient has no known problems. Allergies, Adverse Reactions, Alerts This patient has no known allergies or adverse reactions. Medications This patient has no known medications.
[2018-08-28 20:09] LABS: Urine Blood NEGATIVE (NEG); Urine Glucose NEGATIVE (NEG); Urine Protein NEGATIVE (NEG)
[2018-08-28 20:16] LABS: Absolute Lymphocytes (CBC) 2.2 K/uL (0.7-4.9); Absolute Monocytes 0.5 K/uL (0.1-1.3); Basophils % 0.5 % (0-1.3); Eosinophils % 0.7 % (0-4.4); Hematocrit 39.5 % (36.0-45.0); Lymphocytes % 24.4 % (15.3-44.8)
[2018-08-28 20:31] LABS: BUN Blood Urea Nitrogen 11 mg/dL (7-18); Bicarbonate 26 mmol/L (21-32); Glucose Level 81 mg/dL (74-106); HCG, Quantitative 110 mIU/mL (1-3); Potassium 3.7 mmol/L (3.5-5.1); Sodium Level 140 mmol/L (136-145)
--- NOTE | 2018-08-28 21:20 | RAD REPORT ---
EXAM DESCRIPTION: US - Transvaginal OB - 08/28/2018 9:09 pm CLINICAL HISTORY: Vaginal bleeding, beta HCG 110 COMPARISON: None. TECHNIQUE: Endovaginal sonography performed FINDINGS: No uterine mass identified. Uterus is 7.2 x 4.1 x 4.7 cm. No intrauterine gestational sac or sac remnant. No endometrial hematoma or mass. A 1.4 centimeter left ovarian cyst is present. Doppler evaluation shows normal ovarian stroma blood f low pattern. No suspicious solid or cystic ovarian or adnexal finding. No evidence for ectopic pregna ncy. IMPRESSION: No intrauterine gestational sac or sac remnant. No evidence for ectopic . A 1.4 centimeter left ovarian cyst is present.
[2018-08-28] MEDS ORDERED: ACETAMINOPHEN 500 MG TAB ONE (21:27)
--- NOTE | 2018-08-28 21:39 | ER ---
Nurse's Notes [facility] Name: Deborah Torres Age: 23 yrs Sex: Female : 1995 Arrival Date: 08/28/2018 Time: 18:52 Bed 26 [facility] MD: Diagnosis: Incomplete spontaneous without complication Presentation: 08/28 19:07 Presenting complaint: Patient states: "I just found out I was and I am lp1 spotting, I feel like I'm being stabbed in my hips and it hurts"; Cramping began yesterday, patient had positive test last night; Light pink spotting noticed when she wipes. Transition of care: patient was not received from another setting of care. Onset of symptoms was August 28, 2018. Risk Assessment: Do you want to hurt yourself or someone else? Patient reports no desire to harm self or others. Initial Sepsis Screen: Does the patient meet any 2 criteria? No. Patient's initial sepsis screen is negative. Does the patient have a suspected source of infection? No. Patient's initial sepsis screen is negative. Care prior to arrival: None. 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 - Social history:: Smoking status: Patient uses tobacco products, denies chronic smoking, but will smoke occasionally. - Ebola Screening: : No symptoms or risks identified at this time. Screenin:12 Abuse screen: Denies threats or abuse. Denies injuries from another. Nutritional lp1 screening: No deficits noted. Tuberculosis screening: No symptoms or risk factors identified. Fall Risk None identified. Assessment: 19:38 General: Appears in no apparent distress. Behavior is calm, cooperative. Pain: la1 Complains of pain in right lower quadrant and left lower quadrant. Neuro: Level of Consciousness is awake, alert, obeys commands, Oriented to person, place, time, situation. Cardiovascular: Heart tones S1 S2 present Capillary refill < 3 seconds Patient's skin is warm and dry. Respiratory: Airway is patent Respiratory effort is even, unlabored, Respiratory pattern is regular, symmetrical. GI: Abdomen is round Bowel sounds present X 4 quads. Abd is soft X 4 quads. : No signs and/or symptoms were reported regarding the genitourinary system. 21:04 Reassessment: Patient appears in no apparent distress at this time. No changes from la1 previously documented assessment. Patient and/or family updated on plan of care and expected duration. Pain level reassessed. Patient is alert, oriented x 3, equal unlabored respirations, skin warm/dry/pink. Vital Signs: 19:09 BP 136 / 88; Pulse 88; Resp 18; Temp 98.4(TE); Pulse Ox 99% on R/A; Weight 99.79 kg lp1 (R); Height 5 ft. 4 in. (162.56 cm); Pain 7/10; 22:02 BP 135 / 84; Pulse 83; Resp 19; Pulse Ox 100% ; rv 19:09 Body Mass Index 37.76 (99.79 kg, 162.56 cm) lp1 ED Course: 18:52 Patient arrived in ED. as 19:09 Triage completed. lp1 19:12 Arm band placed on left wrist. lp1 19:34 Donnell Sharif RN is Primary Nurse. la1 19:35 Graham Nicholson MD is Attending Physician. gs 19:38 No provider procedures requiring assistance completed. Inserted saline lock: 20 gauge la1 in right antecubital area, using aseptic technique. Blood collected. 19:39 Call light in reach. Side rails up X 1. la1 21:09 Transvaginal OB In Process Unspecified. EDMS 21:10 Ultrasound completed. Patient tolerated well. sg3 22:03 IV discontinued, bleeding controlled, No redness/swelling at site. Pressure dressing rv applied. Administered Medications: 21:19 Drug: Tylenol 1000 mg Route: PO; la1 21:39 Follow up: Response: No adverse reaction; Pain is decreased la1 Outcome: 21:38 Discharge ordered by . chris 22:03 Discharged to home ambulatory. rv 22:03 Condition: good 22:03 Discharge instructions given to patient, Instructed on discharge instructions, follow up and referral plans. Demonstrated understanding of instructions, follow-up care. 22:04 Patient left the ED. rv Signatures: Dispatcher [employer] Radha Swift Laura, RN RN lp1 Donnell Sharif RN RN la1 Graham Nicholson MD MD gs Godinez, Sarah 3 Joaquín Amlaguer RN RN rv
--- NOTE | 2018-08-28 21:39 | EDPHYS ---
Physician Documentation [facility] Name: Deborah Torres Age: 23 yrs Sex: Female : 1995 Arrival Date: 08/28/2018 Time: 18:52 Bed 26 Private MD: ED Physician Graham Nicholson HPI: 08/28 21:33 This 23 yrs old Female presents to ER via Ambulatory with complaints of gs Vaginal Bleeding, + Preg <12wks. 21:33 The patient presents to the emergency department with vaginal bleeding, described as gs spotting. The estimated gestational age is 6 weeks. Associated signs and symptoms: Pertinent negatives: chest pain, dysuria, fever. The patient has experienced similar episodes in the past, a few times. 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 - Social history:: Smoking status: Patient uses tobacco products, denies chronic smoking, but will smoke occasionally. - Ebola Screening: : No symptoms or risks identified at this time. ROS: 21:33 All other systems are negative. gs Exam: 21:33 Head/Face: Normocephalic, atraumatic. Eyes: Pupils equal round and reactive to light, gs extra-ocular motions intact. Lids and lashes normal. Conjunctiva and sclera are non-icteric and not injected. Cornea within normal limits. Periorbital areas with no swelling, redness, or edema. ENT: Nares patent. No nasal discharge, no septal abnormalities noted. Tympanic membranes are normal and external auditory canals are clear. Oropharynx with no redness, swelling, or masses, exudates, or evidence of obstruction, uvula midline. Mucous membranes moist. Neck: Trachea midline, no thyromegaly or masses palpated, and no cervical lymphadenopathy. Supple, full range of motion without nuchal rigidity, or vertebral point tenderness. No Meningismus. Chest/axilla: Normal chest wall appearance and motion. Nontender with no deformity. No lesions are appreciated. Cardiovascular: Regular rate and rhythm with a normal S1 and S2. No gallops, murmurs, or rubs. Normal PMI, no JVD. No pulse deficits. Respiratory: Lungs have equal breath sounds bilaterally, clear to auscultation and percussion. No rales, rhonchi or wheezes noted. No increased work of breathing, no retractions or nasal flaring. Back: No spinal tenderness. No costovertebral tenderness. Full range of motion. Skin: Warm, dry with normal turgor. Normal color with no rashes, no lesions, and no evidence of cellulitis. MS/ Extremity: Pulses equal, no cyanosis. Neurovascular intact. Full, normal range of motion. Neuro: Awake and alert, GCS 15, oriented to person, place, time, and situation. Cranial nerves II-XII grossly intact. Motor strength 5/5 in all extremities. Sensory grossly intact. Cerebellar exam normal. Normal gait. 21:33 Constitutional: The patient appears alert, awake. 21:33 Abdomen/GI: Palpation: mild abdominal tenderness, in the suprapubic area, right lower quadrant and left lower quadrant, rebound tenderness, is not appreciated. Vital Signs: 19:09 BP 136 / 88; Pulse 88; Resp 18; Temp 98.4(TE); Pulse Ox 99% on R/A; Weight 99.79 kg lp1 (R); Height 5 ft. 4 in. (162.56 cm); Pain 7/10; 22:02 BP 135 / 84; Pulse 83; Resp 19; Pulse Ox 100% ; rv 19:09 Body Mass Index 37.76 (99.79 kg, 162.56 cm) lp1 MDM: 19:50 Patient medically screened. gs 21:33 Differential diagnosis: threatened Ab, inevitable Ab, complete Ab, ectopic . gs Data reviewed: vital signs, nurses notes. Counseling: I had a detailed discussion with the patient and/or guardian regarding: the historical points, exam findings, and any diagnostic results supporting the discharge/admit diagnosis, lab results, radiology results, the need for outpatient follow up. Response to treatment: the patient's symptoms have markedly improved after treatment. 08/28 19:42 Order name: Urine Dipstick--Ancillary (enter results); Complete Time: 21: 08/28 19:42 Order name: Urine --Ancillary (enter results); Complete Time: 21: 08/28 19:52 Order name: Quantitative Hcg; Complete Time: 21: 08/28 19:52 Order name: Abo/rh Typing; Complete Time: 21: 08/28 19:52 Order name: Basic Metabolic Panel; Complete Time: 21: 08/28 19:52 Order name: CBC with Diff; Complete Time: 21: 08/28 19:52 Order name: Urine Test (obtain specimen); Complete Time: :56 08/28 19:52 Order name: IV Saline Lock; Complete Time: 19:56 08/28 19:52 Order name: Labs collected and sent; Complete Time: 19:56 08/28 19:52 Order name: NPO; Complete Time: 19:56 08/28 19:52 Order name: Urine Dipstick-Ancillary (obtain specimen); Complete Time: 19:56 08/28 21:09 Order name: Transvaginal OB; Complete Time: 21:33 EDMS Administered Medications: 21:19 Drug: Tylenol 1000 mg Route: PO; la1 21:39 Follow up: Response: No adverse reaction; Pain is decreased la1 Disposition: 08/28/18 21:38 Discharged to Home. Impression: Incomplete spontaneous without complication. - Condition is Stable. - Discharge Instructions: Miscarriage. - Medication Reconciliation Form, Thank You Letter, Antibiotic Education, Prescription Opioid Use form. - Follow up: Private Physician; When: 2 - 3 days; Reason: Re-evaluation by your physician. Signatures: Dispatcher [employer] EDMS Tamie Davis RN RN lp1 Donnell Sharif RN RN la1 Graham Nicholson MD MD gs Vicente, Ronaldo RN RN rv Corrections: (The following items were deleted from the chart) 21:09 19:53 Pelvis Complete+US.RAD.BRZ ordered. EDSD EDMS 22:04 21:38 08/28/2018 21:38 Discharged to Home. Impression: Incomplete spontaneous rv without complication. Condition is Stable. Forms are Medication Reconciliation Form, Thank You Letter, Antibiotic Education, Prescription Opioid Use. Follow up: Private Physician; When: 2 - 3 days; Reason: Re-evaluation by your physician. gs
[2018-08-28 22:18] VITALS: TEMP 98.4
[2018-08-28 22:19] VITALS: BP 135/84; O2SAT 100
== END 2018-08-28 22:04 | disposition home or self-care (01) ==
LOC: ER 18:51
DX: O03.4 Incomplete spontaneous abortion without complication (principal); O99.331 Smoking (tobacco) complicating pregnancy, first trimester; J45.909 Unspecified asthma, uncomplicated; Z3A.01 Less than 8 weeks gestation of pregnancy; Z88.5 Allergy status to narcotic agent; Z88.8 Allergy status to other drugs, medicaments and biological substances
CPT/HCPCS: 36415; 76817; 80048; 81003; 81025; 84702; 85025; 86900; 86901; 99284

== ENCOUNTER 2018-09-05 21:03 | Emergency (ER) | payer OTHER, SELFPAY ==
--- OUTSIDE RECORDS SUMMARY | 2018-09-05 21:06 | XMS REPORT ---
:1995 [facility] Address [address] [place] [address] Dr. Cart[address] [place] [id number] Care Team Providers Name Role Phone Unavailable Unavailable Unavailable Problems This patient has no known problems. Allergies, Adverse Reactions, Alerts This patient has no known allergies or adverse reactions. Medications This patient has no known medications.
--- OUTSIDE RECORDS SUMMARY | 2018-09-05 21:06 | XMS REPORT | Clinical Summary ---
:1995 Author Organization [facility] Address [address] [place] [address] Care Team Providers Name Role Phone Unavailable [...] INFLUENZA VACCINE 05/03/2018 Results Not on fileafter 09/04/2017
--- NOTE | 2018-09-05 23:07 | EDPHYS ---
Physician Documentation [facility] Name: Deborah Torres Age: 23 yrs Sex: Female : 1995 Arrival Date: 09/05/2018 Time: 21:07 Bed Hall1 Private MD: Itzel Patrick C ED Physician Graham Nicholson HPI: 09/05 21:47 This 23 yrs old Female presents to ER via Ambulatory with complaints of jr8 Vomiting, Headache, Sore Throat. 21:47 The patient presents to the emergency department with nausea, vomiting. Onset: The jr8 symptoms/episode began/occurred acutely, yesterday. Possible causes: sick contacts, by family, daughter. The symptoms are aggravated by nothing. The symptoms are alleviated by nothing. Associated signs and symptoms: Pertinent positives: nausea, vomiting, sinus congestion, cough. Severity of symptoms: At their worst the symptoms were moderate in the emergency department the symptoms are unchanged. The patient has not experienced similar symptoms in the past. The patient has not recently seen a physician. 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 - Social history:: Smoking status: Patient/guardian denies using tobacco. - Ebola Screening: : No symptoms or risks identified at this time. ROS: 21:47 Eyes: Negative for injury, pain, redness, and discharge, Neck: Negative for injury, jr8 pain, and swelling, Cardiovascular: Negative for chest pain, palpitations, and edema, Back: Negative for injury and pain, MS/Extremity: Negative for injury and deformity, Skin: Negative for injury, rash, and discoloration, Neuro: Negative for headache, weakness, numbness, tingling, and seizure. 21:47 Constitutional: Positive for body aches, chills, fever. 21:47 ENT: Positive for ear pain, rhinorrhea, sinus pain, sore throat. 21:47 Respiratory: Positive for cough, Negative for dyspnea on exertion, shortness of breath, sputum production, wheezing. 21:47 Abdomen/GI: Positive for nausea and vomiting, Negative for abdominal pain, diarrhea, abdominal distension. Exam: 21:47 Eyes: Pupils equal round and reactive to light, extra-ocular motions intact. Lids and jr8 lashes normal. Conjunctiva and sclera are non-icteric and not injected. Cornea within normal limits. Periorbital areas with no swelling, redness, or edema. ENT: Nares patent. No nasal discharge, no septal abnormalities noted. Mild erythema and swelling of turbinates present bilaterally. Tympanic membranes are normal and external auditory canals are clear. Oropharynx with no redness, swelling, or masses, exudates, or evidence of obstruction, uvula midline. Mucous membranes moist. Neck: Trachea midline, no thyromegaly or masses palpated, and no cervical lymphadenopathy. Supple, full range of motion without nuchal rigidity, or vertebral point tenderness. No Meningismus. Cardiovascular: Regular rate and rhythm with a normal S1 and S2. No gallops, murmurs, or rubs. Normal PMI, no JVD. No pulse deficits. Respiratory: Lungs have equal breath sounds bilaterally, clear to auscultation and percussion. No rales, rhonchi or wheezes noted. No increased work of breathing, no retractions or nasal flaring. Abdomen/GI: Soft, non-tender, with normal bowel sounds. No distension or tympany. No guarding or rebound. No evidence of tenderness throughout. Back: No spinal tenderness. No costovertebral tenderness. Full range of motion. Skin: Warm, dry with normal turgor. Normal color with no rashes, no lesions, and no evidence of cellulitis. MS/ Extremity: Pulses equal, no cyanosis. Neurovascular intact. Full, normal range of motion. Neuro: Awake and alert, GCS 15, oriented to person, place, time, and situation. Cranial nerves II-XII grossly intact. Motor strength 5/5 in all extremities. Sensory grossly intact. Cerebellar exam normal. Normal gait. Vital Signs: 21:25 BP 133 / 84; Pulse 98; Resp 18; Temp 97.4; Pulse Ox 98% on R/A; Weight 96.16 kg (R); ak1 Height 5 ft. 4 in. (162.56 cm) (R); Pain 7/10; 22:58 BP 129 / 87; Pulse 95; Resp 17 S; Temp 98.6(O); Pulse Ox 98% on R/A; cc3 21:25 Body Mass Index 36.39 (96.16 kg, 162.56 cm) ak1 MDM: 21:25 Patient medically screened. jr8 23:05 Data reviewed: vital signs, nurses notes, lab test result(s), Flu: negative and as a jr8 result, I will discharge patient. Data interpreted: Pulse oximetry: on room air is 98 %. Interpretation: normal. Counseling: I had a detailed discussion with the patient and/or guardian regarding: the historical points, exam findings, and any diagnostic results supporting the discharge/admit diagnosis, lab results, the need for outpatient follow up, a family practitioner, to return to the emergency department if symptoms worsen or persist or if there are any questions or concerns that arise at home. 09/05 21:39 Order name: Influenza Screen (a \T\ B); Complete Time: 23:04 jr8 Administered Medications: No medications were administered Disposition: 09/06 02:53 Co-signature as Attending Physician, Graham Nicholson MD. Disposition: 09/05/18 23:07 Discharged to Home. Impression: Acute upper respiratory infection, unspecified, Viral infection, unspecified. - Condition is Stable. - Discharge Instructions: Viral Respiratory Infection. - Prescriptions for Augmentin 875- 125 mg Oral Tablet - take 1 tablet by ORAL route every 12 hours for 10 days; 20 tablet. Reglan 10 mg Oral Tablet - take 1 tablet by ORAL route every 6 hours As needed; 20 tablet. - Medication Reconciliation Form, Thank You Letter, Antibiotic Education, Prescription Opioid Use form. - Follow up: Private Physician; When: As needed; Reason: Recheck today's complaints, Continuance of care, Re-evaluation by your physician. - Problem is new. - Symptoms have improved. Signatures: Dispatcher [employer] EDMS Uziel Nobles PA PA jr8 Stephenie Diez, RN RN ak1 Graham Nicholson MD MD Gabriella Crespo cc3 Corrections: (The following items were deleted from the chart) 09/05 23:26 23:07 09/05/2018 23:07 Discharged to Home. Impression: Acute upper respiratory cc3 infection, unspecified; Viral infection, unspecified. Condition is Stable. Forms are Medication Reconciliation Form, Thank You Letter, Antibiotic Education, Prescription Opioid Use. Follow up: Private Physician; When: As needed; Reason: Recheck today's complaints, Continuance of care, Re-evaluation by your physician. Problem is new. Symptoms have improved. jr8
--- NOTE | 2018-09-05 23:07 | ER ---
Nurse's Notes [facility] Name: Deborah Torres Age: 23 yrs Sex: Female : 1995 Arrival Date: 09/05/2018 Time: 21:07 Bed [place]1 Private MD: Itzel Patrick C Diagnosis: Acute upper respiratory infection, unspecified;Viral infection, unspecified Presentation: 09/05 21:23 Presenting complaint: Patient states: abd pain, headache, throat pain. pt LMP 07/18/18. ak1 Transition of care: patient was not received from another setting of care. Onset of symptoms was September 05, 2018. Risk Assessment: Do you want to hurt yourself or someone else? Patient reports no desire to harm self or others. Initial Sepsis Screen: Does the patient meet any 2 criteria? No. Patient's initial sepsis screen is negative. Does the patient have a suspected source of infection? No. Patient's initial sepsis screen is negative. Care prior to arrival: None. 21:23 Method Of Arrival: Ambulatory ak1 21:23 Acuity: NORM 4 ak1 Triage Assessment: 21:20 GI: Reports vomiting. cc3 21:25 General: Appears in no apparent distress. Behavior is calm, cooperative. 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 - Social history:: Smoking status: Patient/guardian denies using tobacco. - Ebola Screening: : No symptoms or risks identified at this time. Screenin:20 Abuse screen: Denies threats or abuse. Denies injuries from another. Nutritional cc3 screening: No deficits noted. Tuberculosis screening: No symptoms or risk factors identified. Fall Risk Ambulatory Aid- None/Bed Rest/Nurse Assist (0 pts). Gait- Normal/Bed Rest/Wheelchair (0 pts) Mental Status- Oriented to own ability (0 pts). Assessment: 21:20 Pain: Complains of pain in head. GI: Abdomen is round obese. cc3 22:30 Reassessment: Patient appears in no apparent distress at this time. Patient and/or cc3 family updated on plan of care and expected duration. Pain level reassessed. Patient is alert, oriented x 3, equal unlabored respirations, skin warm/dry/pink. 23:25 Reassessment: Patient appears in no apparent distress at this time. Patient and/or cc3 family updated on plan of care and expected duration. Pain level reassessed. Patient is alert, oriented x 3, equal unlabored respirations, skin warm/dry/pink. SHADI Nobles discharged the patient home with prescription given. No IV cannula in situ. Patient left ER vitally stable and ambulatory with her family. Vital Signs: 21:25 BP 133 / 84; Pulse 98; Resp 18; Temp 97.4; Pulse Ox 98% on R/A; Weight 96.16 kg (R); ak1 Height 5 ft. 4 in. (162.56 cm) (R); Pain 7/10; 22:58 BP 129 / 87; Pulse 95; Resp 17 S; Temp 98.6(O); Pulse Ox 98% on R/A; cc3 21:25 Body Mass Index 36.39 (96.16 kg, 162.56 cm) ak1 ED Course: 21:07 Patient arrived in ED. am2 21:08 Itzel Patrick FNP is Private Physician. am2 21:20 Gabriella Crespo is Primary Nurse. cc3 21:20 Patient has correct armband on for positive identification. Bed in low position. Call cc3 light in reach. Side rails up X 1. Pulse ox on. NIBP on. 21:22 Uziel Nobles PA is PHCP. jr8 21:22 Graham Nicholson MD is Attending Physician. jr8 21:24 Triage completed. ak1 21:25 Arm band placed on Patient placed in an exam room, on a stretcher, Patient notified of ak1 wait time. 23:25 No provider procedures requiring assistance completed. Patient did not have IV access cc3 during this emergency room visit. Administered Medications: No medications were administered Outcome: 23:07 Discharge ordered by . ryan 23:25 Discharged to home ambulatory, with family. cc3 23:25 Condition: stable 23:25 Discharge instructions given to patient, Instructed on discharge instructions, follow up and referral plans. medication usage, Demonstrated understanding of instructions, follow-up care, medications, Prescriptions given X 2. 23:26 Patient left the ED. cc3 Signatures: Uziel Nobles PA PA jr8 Krenek, Amber, RN RN ak1 Linda Valente Charlene cc3
[2018-09-06 01:01] VITALS: BP 133/84; TEMP 97.4; O2SAT 98
== END 2018-09-05 23:26 | disposition home or self-care (01) ==
LOC: ER 21:03
DX: J06.9 Acute upper respiratory infection, unspecified (principal); B34.9 Viral infection, unspecified; O99.511 Diseases of the respiratory system complicating pregnancy, first trimester; J45.909 Unspecified asthma, uncomplicated; Z3A.01 Less than 8 weeks gestation of pregnancy
CPT/HCPCS: 87804; 99283

== ENCOUNTER 2018-09-07 23:37 | Emergency (ER) | payer OTHER ==
--- OUTSIDE RECORDS SUMMARY | 2018-09-07 23:39 | XMS REPORT ---
:1995 [facility] Address [address] [place] [address] Dr. Cartwright [address] [place] [id number] Care Team Providers Name Role Phone Unavailable Unavailable Unavailable Problems This patient has no known problems. Allergies, Adverse Reactions, Alerts This patient has no known allergies or adverse reactions. Medications This patient has no known medications.
--- OUTSIDE RECORDS SUMMARY | 2018-09-07 23:39 | XMS REPORT | Clinical Summary ---
:1995 Author Organization [facility] Address [address] [place] [address] Care Team Providers Name Role Phone Unavailable [...] INFLUENZA VACCINE 05/03/2018 Results Not on fileafter 09/06/2017
--- NOTE | 2018-09-08 00:04 | ER ---
Nurse's Notes [facility] Name: Deborah Torres Age: 23 yrs Sex: Female : 1995 Arrival Date: 09/07/2018 Time: 23:39 Bed 15 Private MD: Diagnosis: Otalgia, left ear Presentation: 09/07 23:55 Presenting complaint: Patient states: I have an ear ache in my left ear that I have had jb4 since july. 23:55 Transition of care: patient was not received from another setting of care. Onset of jb4 symptoms was July 03, 2018. Risk Assessment: Do you want to hurt yourself or someone else? Patient reports no desire to harm self or others. Initial Sepsis Screen: Does the patient meet any 2 criteria? No. Patient's initial sepsis screen is negative. Does the patient have a suspected source of infection? No. Patient's initial sepsis screen is negative. Care prior to arrival: None. 23:55 Method Of Arrival: Ambulatory jb4 23:55 Acuity: NORM 5 jb4 Triage Assessment: 23:55 General: Appears in no apparent distress. uncomfortable, Behavior is calm, cooperative, jb4 appropriate for age. Pain: Complains of pain in left ear Pain does not radiate. Pain currently is 6 out of 10 on a pain scale. EENT: Ear canal clear on left ear. Neuro: Level of Consciousness is awake, alert, obeys commands, confused, Oriented to person, place, time, situation. Cardiovascular: Patient's skin is warm and dry. Respiratory: Airway is patent Respiratory effort is even, unlabored, Respiratory pattern is regular, symmetrical. GI: No signs and/or symptoms were reported involving the gastrointestinal system. : No signs and/or symptoms were reported regarding the genitourinary system. Derm: Skin is intact, Skin is pink, warm \T\ dry. Musculoskeletal: Circulation, motion, and sensation intact. Historical: - Allergies: 23:55 HYDROCODONE; jb4 23:55 promethazine HCl; jb4 23:55 Tape; jb4 - Home Meds: 23:55 Vitamin Oral [Active]; ProAir HFA 90 mcg/actuation inhalation HFAA 2 puffs jb4 every 4-6 hours [Active]; Amoxicillin Oral [Active]; - PMHx: 23:55 Anxiety; Asthma; Bipolar disorder; Depression; Hypertension; Pre-eclampsia; premature jb4 births, 2 miscarrages; Thyroid problem; - PSHx: 23:55 ; Tonsillectomy; jb4 - Immunization history:: Adult Immunizations up to date. - Social history:: Smoking status: Patient/guardian denies using tobacco, but has a distant history of tobacco abuse, Patient/guardian denies using alcohol. - Ebola Screening: : No symptoms or risks identified at this time. Screenin:55 Abuse screen: Denies threats or abuse. Nutritional screening: No deficits noted. jb4 Tuberculosis screening: No symptoms or risk factors identified. Fall Risk None identified. Assessment: 23:55 General: see triage assessment.. jb4 Vital Signs: 23:52 BP 150 / 104 RA Sitting (auto/reg); Pulse 90 RA; Temp 99.0(O); Pulse Ox 100% on R/A; mb4 ED Course: 23:39 Patient arrived in ED. ds1 23:43 Tea Hooper FNP-C is [facility]. kb 23:43 Shawn Pollard MD is Attending Physician. kb 23:55 Arm band placed on left wrist. jb4 23:55 Patient has correct armband on for positive identification. Bed in low position. Call jb4 light in reach. Side rails up X 1. Pulse ox on. NIBP on. 02/06 00:04 Sandoval Preciado, RN is Primary Nurse. jb4 00:06 Triage completed. jb4 00:21 No provider procedures requiring assistance completed. Patient did not have IV access jb4 during this emergency room visit. Administered Medications: 00:20 Drug: Tylenol 1000 mg Route: PO; jb4 00:20 Follow up: Response: No adverse reaction jb4 Outcome: 00:03 Discharge ordered by . kb 00:21 Discharged to home ambulatory, with family. jb4 00:21 Condition: stable 00:21 Discharge instructions given to patient, family, Instructed on discharge instructions, follow up and referral plans. medication usage, Demonstrated understanding of instructions, follow-up care, medications. 00:21 Patient left the ED. jb4 Signatures: Tea Hooper FNP-C FNP-Ckb Sanford, Demi ds1 Sandoval Preciado, RN RN jb4 Oneyda Venegas 4
--- NOTE | 2018-09-08 00:05 | EDPHYS ---
Physician Documentation [facility] Name: Deborah Torres Age: 23 yrs Sex: Female : 1995 Arrival Date: 09/07/2018 Time: 23:39 Bed 15 Private MD: ED Physician Shawn Pollard HPI: 09/08 00:11 This 23 yrs old Female presents to ER via Ambulatory with complaints of Ear kb Pain. 00:11 The patient presents with pain, moderate. The complaints affect the left ear. Onset: kb The symptoms/episode began/occurred 2 month(s) ago. Modifying factors: The symptoms are alleviated by nothing, the symptoms are aggravated by nothing. Associated signs and symptoms: The patient has no apparent associated signs or symptoms. Severity of symptoms: At their worst the symptoms were moderate in the emergency department the symptoms are unchanged. The patient has not experienced similar symptoms in the past. The patient has been recently seen at the [facility] Emergency Department, this week, for similar complaints. Historical: - Allergies: 09/07 23:55 HYDROCODONE; jb4 23:55 promethazine HCl; jb4 23:55 Tape; jb4 - Home Meds: 23:55 Vitamin Oral [Active]; ProAir HFA 90 mcg/actuation inhalation HFAA 2 puffs jb4 every 4-6 hours [Active]; Amoxicillin Oral [Active]; - PMHx: 23:55 Anxiety; Asthma; Bipolar disorder; Depression; Hypertension; Pre-eclampsia; premature jb4 births, 2 miscarrages; Thyroid problem; - PSHx: 23:55 ; Tonsillectomy; jb4 - Immunization history:: Adult Immunizations up to date. - Social history:: Smoking status: Patient/guardian denies using tobacco, but has a distant history of tobacco abuse, Patient/guardian denies using alcohol. - Ebola Screening: : No symptoms or risks identified at this time. ROS: 09/08 00:08 Constitutional: Negative for fever, chills, and weight loss, Neck: Negative for injury, kb pain, and swelling, Cardiovascular: Negative for chest pain, palpitations, and edema, Respiratory: Negative for shortness of breath, cough, wheezing, and pleuritic chest pain, Abdomen/GI: Negative for abdominal pain, nausea, vomiting, diarrhea, and constipation, MS/Extremity: Negative for injury and deformity, Skin: Negative for injury, rash, and discoloration, Neuro: Negative for headache, weakness, numbness, tingling, and seizure. ENT: Positive for ear pain. Exam: 00:11 Constitutional: This is a well developed, well nourished patient who is awake, alert, kb and in no acute distress. Head/Face: Normocephalic, atraumatic. ENT: Nares patent. No nasal discharge, no septal abnormalities noted. Tympanic membranes are normal and external auditory canals are clear. Oropharynx with no redness, swelling, or masses, exudates, or evidence of obstruction, uvula midline. Mucous membranes moist. Neck: Trachea midline, no thyromegaly or masses palpated, and no cervical lymphadenopathy. Supple, full range of motion without nuchal rigidity, or vertebral point tenderness. No Meningismus. Chest/axilla: Normal chest wall appearance and motion. Nontender with no deformity. No lesions are appreciated. Cardiovascular: Regular rate and rhythm with a normal S1 and S2. No gallops, murmurs, or rubs. Normal PMI, no JVD. No pulse deficits. Respiratory: Lungs have equal breath sounds bilaterally, clear to auscultation and percussion. No rales, rhonchi or wheezes noted. No increased work of breathing, no retractions or nasal flaring. Abdomen/GI: Soft, non-tender, with normal bowel sounds. No distension or tympany. No guarding or rebound. No evidence of tenderness throughout. Skin: Warm, dry with normal turgor. Normal color with no rashes, no lesions, and no evidence of cellulitis. MS/ Extremity: Pulses equal, no cyanosis. Neurovascular intact. Full, normal range of motion. Neuro: Awake and alert, GCS 15, oriented to person, place, time, and situation. Cranial nerves II-XII grossly intact. Motor strength 5/5 in all extremities. Sensory grossly intact. Cerebellar exam normal. Normal gait. Vital Signs: 09/07 23:52 BP 150 / 104 RA Sitting (auto/reg); Pulse 90 RA; Temp 99.0(O); Pulse Ox 100% on R/A; mb4 MDM: 23:43 Patient medically screened. kb 09/08 00:01 Data reviewed: vital signs, nurses notes. Data interpreted: Pulse oximetry: on room air kb is 100 %. Interpretation: normal. Counseling: I had a detailed discussion with the patient and/or guardian regarding: the historical points, exam findings, and any diagnostic results supporting the discharge/admit diagnosis, the need for outpatient follow up, an ENT specialist, to return to the emergency department if symptoms worsen or persist or if there are any questions or concerns that arise at home. Administered Medications: 00:20 Drug: Tylenol 1000 mg Route: PO; jb4 00:20 Follow up: Response: No adverse reaction jb4 Disposition: 12:26 Co-signature as Attending Physician, Shawn Pollard MD I agree with the assessment and emilie plan of care. Disposition: 09/08/18 00:03 Discharged to Home. Impression: Otalgia, left ear. - Condition is Stable. - Discharge Instructions: Earache, Adult. - Medication Reconciliation Form, Thank You Letter, Antibiotic Education, Prescription Opioid Use form. - Follow up: Emergency Department; When: As needed; Reason: Worsening of condition. Follow up: Private Physician; When: 2 - 3 days; Reason: Recheck today's complaints, Continuance of care, Re-evaluation by your physician. Signatures: Tea Hooper, FAST BRIM POUNCER-C FAST BRIM POUNCER-Ckb Shawn Pollard MD MD cha Bryson, James, RN RN jb4 Corrections: (The following items were deleted from the chart) 00:21 00:03 09/08/2018 00:03 Discharged to Home. Impression: Otalgia, left ear. Condition is jb4 Stable. Forms are Medication Reconciliation Form, Thank You Letter, Antibiotic Education, Prescription Opioid Use. Follow up: Emergency Department; When: As needed; Reason: Worsening of condition. Follow up: Private Physician; When: 2 - 3 days; Reason: Recheck today's complaints, Continuance of care, Re-evaluation by your physician. kb
[2018-09-08] MEDS ORDERED: ACETAMINOPHEN 500 MG TAB ONE (00:21)
[2018-09-08 01:33] VITALS: BP 150/104; TEMP 99; O2SAT 100
== END 2018-09-08 00:21 | disposition home or self-care (01) ==
LOC: ER 23:37
DX: H92.02 Otalgia, left ear (principal); I10 Essential (primary) hypertension; F32.9 Major depressive disorder, single episode, unspecified; J45.909 Unspecified asthma, uncomplicated; F31.9 Bipolar disorder, unspecified; Z88.5 Allergy status to narcotic agent; Z88.8 Allergy status to other drugs, medicaments and biological substances
CPT/HCPCS: 99283

== ENCOUNTER 2018-09-21 21:17 | Emergency (ER) | payer OTHER ==
--- OUTSIDE RECORDS SUMMARY | 2018-09-21 21:21 | XMS REPORT ---
:1995 [facility] Address [address] [place] [address] Dr. Cartwright [address] [place] [id number] Care Team Providers Name Role Phone Unavailable Unavailable Unavailable Problems This patient has no known problems. Allergies, Adverse Reactions, Alerts This patient has no known allergies or adverse reactions. Medications This patient has no known medications.
--- OUTSIDE RECORDS SUMMARY | 2018-09-21 21:21 | XMS REPORT | Clinical Summary ---
:1995 Author Organization [facility] Address [address] [place] [address] Care Team Providers Name Role Phone Unavailable [...] INFLUENZA VACCINE 05/03/2018 Results Not on fileafter 09/20/2017
[2018-09-21 22:15] LABS: Urine Blood NEGATIVE (NEG); Urine Glucose NEGATIVE (NEG); Urine Protein NEGATIVE (NEG); Urine Specific Gravity 1.015 (1.005-1.030); Urine pH 6.5 (5.0-7.0)
[2018-09-21 22:51] LABS: Absolute Lymphocytes (CBC) 2.4 K/uL (0.7-4.9); Absolute Monocytes 0.4 K/uL (0.1-1.3); Absolute Neutrophil 7.3 K/uL (1.8-8.0); Basophils % 0.6 % (0-1.3); Lymphocytes % 23.4 % (15.3-44.8); MPV 9.8 fL (7.6-11.3); Monocytes % 4.2 % (3.3-12.3); RBC Red Blood Cell Count 5.73 M/uL (3.86-4.86)
[2018-09-21] MEDS ORDERED: NA CHLORIDE 0.9% 1,000 ML ONE (22:52)
[2018-09-21 23:17] LABS: ALT/SGPT 85 U/L (12-78); AST/SGOT 49 U/L (15-37); Albumin 3.4 g/dL (3.4-5.0); Alkaline Phosphatase 134 U/L (45-117); BUN Blood Urea Nitrogen 7 mg/dL (7-18); Bicarbonate 25 mmol/L (21-32); Bilirubin Direct 0.1 mg/dL (0-0.2); Bilirubin Total 0.6 mg/dL (0.2-1.0); Glucose Level 98 mg/dL (74-106); HCG, Quantitative 41408 mIU/mL (1-3); Potassium 3.9 mmol/L (3.5-5.1); Protein, Total 7.6 g/dL (6.4-8.2); Sodium Level 136 mmol/L (136-145)
--- NOTE | 2018-09-21 23:45 | EDPHYS ---
Physician Documentation [facility] Name: Deborah Torres Age: 23 yrs Sex: Female : 1995 Arrival Date: 09/21/2018 Time: 21:20 Bed 4 Private MD: ED Physician Luke Hi GAMBLING COUNSELLOR: 09/21 21:34 LMP 07/18/2018 lp1 Historical: - Allergies: 21:34 HYDROCODONE; lp1 21:34 promethazine HCl; lp1 21:34 Tape; lp1 - Home Meds: 21:34 Vitamin Oral [Active]; Iron CR Oral [Active]; ProAir HFA 90 mcg/actuation lp1 inhalation HFAA 2 puffs every 4-6 hours [Active]; - PMHx: 21:34 Anxiety; Asthma; Bipolar disorder; Depression; Hypertension; Pre-eclampsia; premature lp1 births, 2 miscarrages; Thyroid problem; - PSHx: 21:34 ; Tonsillectomy; lp1 - Immunization history:: Adult Immunizations up to date, Flu vaccine is not up to date. - Social history:: Smoking status: Patient/guardian denies using tobacco. - Ebola Screening: : No symptoms or risks identified at this time. Vital Signs: 21:34 BP 124 / 90; Pulse 89; Resp 16; Temp 98.5(O); Pulse Ox 100% on R/A; Weight 104.33 kg; lp1 Height 5 ft. 4 in. (162.56 cm); Pain 7/10; 21:34 Body Mass Index 39.48 (104.33 kg, 162.56 cm) lp1 MDM: 23:09 Patient medically screened. snw 09/21 22:07 Order name: Urine Dipstick--Ancillary (enter results); Complete Time: 22:16 5 09/21 22:07 Order name: Urine --Ancillary (enter results); Complete Time: 22:16 ar5 09/21 22:17 Order name: Basic Metabolic Panel; Complete Time: 23:19 snw 09/21 22:17 Order name: CBC with Diff; Complete Time: 22:55 snw 09/21 22:17 Order name: Hepatic Function; Complete Time: 23:19 snw 09/21 22:17 Order name: HCG-Quantitative; Complete Time: 23:19 snw 09/21 22:17 Order name: IV Saline Lock; Complete Time: 22:36 snw 09/21 22:17 Order name: Labs collected and sent; Complete Time: 22:36 snw 09/21 22:37 Order name: US Transvaginal Ob snw Administered Medications: 22:45 Drug: NS 0.9% 1000 ml Route: IV; Rate: 125 ml/hr; Site: right antecubital; ak1 23:58 Follow up: IV Status: Order to discontinue infusion ak1 Disposition: 23:44 Chart complete. [facility] 09/22 00:35 Co-signature as Attending Physician, Luke Hi MD. rn Disposition: 09/21/18 23:45 Discharged to Home. Impression: related conditions, unspecified. - Condition is Stable. - Discharge Instructions: Abdominal Pain During , First Trimester of , Hypertension During . - Medication Reconciliation Form, Thank You Letter, Antibiotic Education, Prescription Opioid Use form. - Follow up: Private Physician; When: as scheduled; Reason: Recheck today's complaints, Continuance of care, Re-evaluation by your physician. Follow up: Emergency Department; When: As needed; Reason: Worsening of condition. Signatures: Dispatcher [employer] EDID Princess Hoover, UPHOLSTERY CLEANER-C UPHOLSTERY CLEANER-Csnw Luke Hi MD MD rn Pena, Laura, RN RN lp1 Stephenie Diez RN RN ak1 Corrections: (The following items were deleted from the chart) 09/21 22:41 22:38 Transvaginal Study (Probe)+US.RAD.BRZ ordered. [facility] 09/22 00:05 09/21 23:45 09/21/2018 23:45 Discharged to Home. Impression: related ak1 conditions, unspecified. Condition is Stable. Forms are Medication Reconciliation Form, Thank You Letter, Antibiotic Education, Prescription Opioid Use. Follow up: Private Physician; When: as scheduled; Reason: Recheck today's complaints, Continuance of care, Re-evaluation by your physician. Follow up: Emergency Department; When: As needed; Reason: Worsening of condition. snw
--- NOTE | 2018-09-21 23:45 | ER ---
Nurse's Notes [facility] Name: Deborah Torres Age: 23 yrs Sex: Female : 1995 Arrival Date: 09/21/2018 Time: 21:20 Bed 4 Private MD: Diagnosis: related conditions, unspecified Presentation: 09/21 21:31 Presenting complaint: Patient states: Nasal drainage, vomiting, headaches, chest pain, lp1 dizziness, pain in hips for 3 days; " I feel like I'm dehydrated"; States "I've been discharging a lot, I'm supposed to be 9 weeks ". Transition of care: patient was not received from another setting of care. Onset of symptoms was September 21, 2018. Risk Assessment: Do you want to hurt yourself or someone else? Patient reports no desire to harm self or others. Initial Sepsis Screen: Does the patient meet any 2 criteria? No. Patient's initial sepsis screen is negative. Does the patient have a suspected source of infection? No. Patient's initial sepsis screen is negative. Care prior to arrival: None. 21:31 Method Of Arrival: Ambulatory lp1 21:31 Acuity: NORM 3 lp1 Triage Assessment: 22:23 Headache History: Other pt did not mention a headache upon assessment in ER4. General: ak1 Appears in no apparent distress. Pain: Pain began pt did not mention a headache upon assessment once in ER4. 22:24 Pain: Pain level that patient reports is acceptable is 4 out of 10 on a pain scale. ak1 23:57 Pain: Also complains of no other associated symptoms. ak1 MATERIAL STRESS TESTER: 21:34 LMP 07/18/2018 lp1 Historical: - Allergies: 21:34 HYDROCODONE; lp1 21:34 promethazine HCl; lp1 21:34 Tape; lp1 - Home Meds: 21:34 Vitamin Oral [Active]; Iron CR Oral [Active]; ProAir HFA 90 mcg/actuation lp1 inhalation HFAA 2 puffs every 4-6 hours [Active]; - PMHx: 21:34 Anxiety; Asthma; Bipolar disorder; Depression; Hypertension; Pre-eclampsia; premature lp1 births, 2 miscarrages; Thyroid problem; - PSHx: 21:34 ; Tonsillectomy; lp1 - Immunization history:: Adult Immunizations up to date, Flu vaccine is not up to date. - Social history:: Smoking status: Patient/guardian denies using tobacco. - Ebola Screening: : No symptoms or risks identified at this time. Screenin:36 Abuse screen: Denies threats or abuse. Denies injuries from another. Nutritional lp1 screening: No deficits noted. Tuberculosis screening: No symptoms or risk factors identified. Fall Risk None identified. Assessment: 22:20 General: Appears in no apparent distress. Behavior is calm, cooperative, no vomiting ak1 noted or reported since arriving to ER. pt c/o nasal congestion. . Pain: Denies pain. Neuro: Level of Consciousness is awake, alert, obeys commands, Oriented to person, place, time, situation, Coffee Sommelier are equal bilaterally Moves all extremities. Gait is steady, Speech is normal, Facial symmetry appears normal. Cardiovascular: No deficits noted. Respiratory: Reports cough that is pt states she had an asthma attack this morning using her inhaler and did an at home neb treatment. GI: No signs and/or symptoms were reported involving the gastrointestinal system. : No signs and/or symptoms were reported regarding the genitourinary system. EENT: Reports nasal congestion nasal discharge. Derm: No signs and/or symptoms reported regarding the dermatologic system. Musculoskeletal: No signs and/or symptoms reported regarding the musculoskeletal system. Vital Signs: 21:34 BP 124 / 90; Pulse 89; Resp 16; Temp 98.5(O); Pulse Ox 100% on R/A; Weight 104.33 kg; lp1 Height 5 ft. 4 in. (162.56 cm); Pain 7/10; 21:34 Body Mass Index 39.48 (104.33 kg, 162.56 cm) lp1 ED Course: 21:20 Patient arrived in ED. es 21:33 Triage completed. lp1 21:33 Arm band placed on left wrist. lp1 22:00 Princess Hoover [facility] snw 22:00 Luke Hi MD is Attending Physician. snw 22:20 Stephenie Diez, ELÍAS is Primary Nurse. ak1 22:22 Patient has correct armband on for positive identification. Bed in low position. Call ak1 light in reach. Side rails up X 1. Pulse ox on. NIBP on. 22:35 Inserted saline lock: 20 gauge in right antecubital area, using aseptic technique. mw2 Blood collected. 22:58 US Transvaginal Ob In Process Unspecified. EDMS 22:58 US Transvaginal Ob Sent. mw2 23:56 No provider procedures requiring assistance completed. IV discontinued, intact, ak1 bleeding controlled, No redness/swelling at site. Pressure dressing applied. Administered Medications: 22:45 Drug: NS 0.9% 1000 ml Route: IV; Rate: 125 ml/hr; Site: right antecubital; ak1 23:58 Follow up: IV Status: Order to discontinue infusion ak1 Outcome: 23:45 Discharge ordered by . snnaseem 23:57 Discharged to home ambulatory. ak1 23:57 Condition: good 23:57 Discharge instructions given to patient, Instructed on discharge instructions, follow up and referral plans. Demonstrated understanding of instructions, follow-up care. 09/22 00:05 Patient left the ED. ak1 Signatures: Dispatcher [employer] EDVT Princess Hoover, MACHINE DEBURRER-C MACHINE DEBURRER-Csnw Elin Sy Laura, RN RN lp1 Stephenie Diez RN RN ak1 Clem Pichardo mw2
[2018-09-22 02:21] VITALS: BP 124/90; TEMP 98.5; O2SAT 100
--- NOTE | 2018-09-22 08:23 | RAD REPORT ---
EXAM DESCRIPTION: US - Transvaginal OB - 09/21/2018 10:58 pm CLINICAL HISTORY: with abdominal pain and vaginal bleeding COMPARISON: August 28, 2018 FINDINGS: The uterus 6 x 5 x 6 centimeters. A gestational sac is present within the endometrium. Wi thin this is a yolk sac and pole with a crown-rump length 1.1 centimeters. Cardiac activity 123 beats per minute. Two small subchorionic bleeds are present Left ovary is normal size and echotexture. Right ovary was not seen. Right and left adnexa unremarkab le. No significant free fluid is seen. IMPRESSION: Single live intrauterine with an estimated gestational age 7 weeks 1 day JEIMY 05/09/2019 Small subchorionic bleeds
== END 2018-09-22 00:05 | disposition home or self-care (01) ==
LOC: ER 21:17
DX: O26.91 Pregnancy related conditions, unspecified, first trimester (principal); O99.341 Other mental disorders complicating pregnancy, first trimester; F41.9 Anxiety disorder, unspecified; F31.9 Bipolar disorder, unspecified; F32.9 Major depressive disorder, single episode, unspecified; O16.1 Unspecified maternal hypertension, first trimester; O99.511 Diseases of the respiratory system complicating pregnancy, first trimester; J45.909 Unspecified asthma, uncomplicated; Z3A.01 Less than 8 weeks gestation of pregnancy; Z88.5 Allergy status to narcotic agent; Z88.8 Allergy status to other drugs, medicaments and biological substances
CPT/HCPCS: 36415; 76817; 80048; 80076; 81003; 81025; 84702; 85025; 96360; 99284; J7030

== ENCOUNTER 2018-10-12 22:33 | Emergency (ER) | payer OTHER ==
--- OUTSIDE RECORDS SUMMARY | 2018-10-12 22:34 | XMS REPORT | Clinical Summary ---
:1995 Author Organization [facility] Address [address] [place] [address] Care Team Providers Name Role Phone Unavailable [...] INFLUENZA VACCINE 05/03/2018 Results Not on fileafter 10/11/2017
--- OUTSIDE RECORDS SUMMARY | 2018-10-12 22:34 | XMS REPORT ---
:1995 [facility] [address] [place] [address] Dr. Cart[address] [place] [id number] Care Team Providers Name Role Phone Unavailable Unavailable Unavailable Problems This patient has no known problems. Allergies, Adverse Reactions, Alerts This patient has no known allergies or adverse reactions. Medications This patient has no known medications.
[2018-10-12 23:18] LABS: Absolute Monocytes 0.4 K/uL (0.1-1.3); Absolute Neutrophil 5.9 K/uL (1.8-8.0); Basophils % 0.9 % (0-1.3); Eosinophils % 1.1 % (0-4.4); Hematocrit 38.2 % (36.0-45.0); Lymphocytes % 23.2 % (15.3-44.8); MPV 9.6 fL (7.6-11.3); Monocytes % 4.7 % (3.3-12.3); RBC Red Blood Cell Count 5.22 M/uL (3.86-4.86)
[2018-10-12 23:44] LABS: Urine Blood NEGATIVE (NEG); Urine Glucose NEGATIVE (NEG); Urine Protein NEGATIVE (NEG); Urine Specific Gravity >1.030 (1.005-1.030); Urine pH 6.5 (5.0-7.0)
--- NOTE | 2018-10-13 00:35 | EDPHYS ---
Physician Documentation [facility] Name: Deborah Torres Age: 23 yrs Sex: Female : 1995 Arrival Date: 10/12/2018 Time: 22:35 Bed 20 Private MD: Pat Patrick ED Physician Graham Nicholson HPI: 10/12 23:24 This 23 yrs old Female presents to ER via Ambulatory with complaints of snw Vaginal Bleeding, + Preg <12wks. 23:24 The patient presents with vaginal bleeding that is spotting. Onset: The snw symptoms/episode began/occurred suddenly, today, and improved today. Associated signs and symptoms: The patient has no apparent associated signs or symptoms. Severity of symptoms: At their worst the symptoms were very mild. The patient has experienced similar episodes in the past. The patient has been recently seen by a physician: with similar presenting complaints, and was referred to a specialist. Historical: - Allergies: 22:49 HYDROCODONE; jd3 22:49 promethazine HCl; jd3 22:49 Tape; jd3 - Home Meds: 22:49 Vitamin Oral [Active]; ProAir HFA 90 mcg/actuation inhalation HFAA 2 puffs jd3 every 4-6 hours [Active]; - PMHx: 22:49 Anxiety; Bipolar disorder; Depression; Hypertension; Pre-eclampsia; Asthma; Thyroid jd3 problem; - PSHx: 22:49 Tonsillectomy; ; jd3 - Immunization history:: Adult Immunizations up to date, Flu vaccine is up to date. - Social history:: Smoking status: Patient uses tobacco products, denies chronic smoking, but will smoke occasionally. - Ebola Screening: : Patient negative for fever greater than or equal to 101.5 degrees Fahrenheit, and additional compatible Ebola Virus Disease symptoms. ROS: 23:23 Constitutional: Negative for fever, chills, and weight loss, Eyes: Negative for injury, snw pain, redness, and discharge, ENT: Negative for injury, pain, and discharge, Neck: Negative for injury, pain, and swelling, Cardiovascular: Negative for chest pain, palpitations, and edema, Respiratory: Negative for shortness of breath, cough, wheezing, and pleuritic chest pain, Abdomen/GI: Negative for abdominal pain, nausea, vomiting, diarrhea, and constipation, Back: Negative for injury and pain, MS/Extremity: Negative for injury and deformity, Skin: Negative for injury, rash, and discoloration, Neuro: Negative for headache, weakness, numbness, tingling, and seizure. 23:23 : Positive for spotting x 1 episode today, pt states her feet hurt as she has worked all day and has been standing a lot. Exam: 22:58 Constitutional: This is a well developed, well nourished patient who is awake, alert, snw and in no acute distress. Head/Face: Normocephalic, atraumatic. Eyes: Pupils equal round and reactive to light, extra-ocular motions intact. Lids and lashes normal. Conjunctiva and sclera are non-icteric and not injected. Cornea within normal limits. Periorbital areas with no swelling, redness, or edema. ENT: Nares patent. No nasal discharge, no septal abnormalities noted. Tympanic membranes are normal and external auditory canals are clear. Oropharynx with no redness, swelling, or masses, exudates, or evidence of obstruction, uvula midline. Mucous membranes moist. Neck: Trachea midline, no thyromegaly or masses palpated, and no cervical lymphadenopathy. Supple, full range of motion without nuchal rigidity, or vertebral point tenderness. No Meningismus. Chest/axilla: Normal chest wall appearance and motion. Nontender with no deformity. No lesions are appreciated. Cardiovascular: Regular rate and rhythm with a normal S1 and S2. No gallops, murmurs, or rubs. Normal PMI, no JVD. No pulse deficits. Respiratory: Lungs have equal breath sounds bilaterally, clear to auscultation and percussion. No rales, rhonchi or wheezes noted. No increased work of breathing, no retractions or nasal flaring. Abdomen/GI: Soft, non-tender, with normal bowel sounds. No distension or tympany. No guarding or rebound. No evidence of tenderness throughout. Back: No spinal tenderness. No costovertebral tenderness. Full range of motion. Skin: Warm, dry with normal turgor. Normal color with no rashes, no lesions, and no evidence of cellulitis. MS/ Extremity: Pulses equal, no cyanosis. Neurovascular intact. Full, normal range of motion. Neuro: Awake and alert, GCS 15, oriented to person, place, time, and situation. Cranial nerves II-XII grossly intact. Motor strength 5/5 in all extremities. Sensory grossly intact. Cerebellar exam normal. Normal gait. Psych: Awake, alert, with orientation to person, place and time. Behavior, mood, and affect are within normal limits. Vital Signs: 22:50 BP 128 / 78; Pulse 88; Resp 18 S; Temp 98.4(O); Pulse Ox 100% on R/A; Weight 57.61 kg jd3 (R); Height 5 ft. 3 in. (160.02 cm) (R); Pain 3/; 10/13 00:16 BP 124 / 79; Pulse 76; Resp 19; Pulse Ox 100% on R/A; Pain 3/10; ed1 10/12 22:50 Body Mass Index 22.50 (57.61 kg, 160.02 cm) jd3 MDM: 10/12 22:43 Patient medically screened. snw 10/13 00:19 Data reviewed: vital signs, nurses notes. Data interpreted: Pulse oximetry: on room air snw is 100 %. Interpretation: normal. Counseling: I had a detailed discussion with the patient and/or guardian regarding: the historical points, exam findings, and any diagnostic results supporting the discharge/admit diagnosis, lab results, the need for outpatient follow up, for definitive care, to return to the emergency department if symptoms worsen or persist or if there are any questions or concerns that arise at home. Special discussion: Based on the history and exam findings, there is no indication for further emergent testing or inpatient evaluation. I discussed with the patient/guardian the need to see the brand representative for further evaluation of the symptoms. 10/12 22:47 Order name: CBC with Diff; Complete Time: 23:40 snw 10/12 22:47 Order name: HCG-Quantitative; Complete Time: 00:04 snw 10/12 22:48 Order name: TS snw 10/12 22:58 Order name: Urine Dipstick--Ancillary (enter results); Complete Time: 23:49 ar5 10/12 22:58 Order name: Urine --Ancillary (enter results); Complete Time: 23:49 ar5 Administered Medications: No medications were administered Disposition: 07:00 Co-signature as Attending Physician, Graham Nicholson MD. chris Disposition: 10/13/18 00:35 Discharged to Home. Impression: Threatened . - Condition is Stable. - Discharge Instructions: Threatened Miscarriage, Vaginal Bleeding During , First Trimester, Pelvic Rest. - Work release form, Medication Reconciliation Form, Thank You Letter, Antibiotic Education, Prescription Opioid Use form. - Follow up: Private Physician; When: Tomorrow; Reason: Recheck today's complaints, Continuance of care, Re-evaluation by your physician. Follow up: Emergency Department; When: As needed; Reason: Worsening of condition. Signatures: Dispatcher [employer] EDMS Princess Hoover, MARKETING TECHNOLOGY COORDINATOR-C MARKETING TECHNOLOGY COORDINATOR-Csnw Sandrita Wood RN RN ed1 Graham Nicholson MD MD Emile Malagon RN RN jd3 Corrections: (The following items were deleted from the chart) 00:49 00:35 10/13/2018 00:35 Discharged to Home. Impression: Threatened . Condition ed1 is Stable. Forms are Medication Reconciliation Form, Thank You Letter, Antibiotic Education, Prescription Opioid Use. Follow up: Private Physician; When: Tomorrow; Reason: Recheck today's complaints, Continuance of care, Re-evaluation by your physician. Follow up: Emergency Department; When: As needed; Reason: Worsening of condition. snw
--- NOTE | 2018-10-13 00:35 | ER ---
Nurse's Notes [facility] Name: Deborah Torres Age: 23 yrs Sex: Female : 1995 Arrival Date: 10/12/2018 Time: 22:35 Bed 20 Private MD: Pat Ptarick Diagnosis: Threatened Presentation: 10/12 22:46 Presenting complaint: Patient states: "I have had 4 miscarriages and I am currently 10 jd3 weeks . I was having pressure at work and I thought I just had to pee, but when I went I noticed blood in the urine.". Transition of care: patient was not received from another setting of care. Onset of symptoms was October 12, 2018. Risk Assessment: Do you want to hurt yourself or someone else? Patient reports no desire to harm self or others. Initial Sepsis Screen: Does the patient meet any 2 criteria? No. Patient's initial sepsis screen is negative. Does the patient have a suspected source of infection? No. Patient's initial sepsis screen is negative. Care prior to arrival: None. 22:46 Method Of Arrival: Ambulatory jd3 22:46 Acuity: NORM 3 jd3 Historical: - Allergies: 22:49 HYDROCODONE; jd3 22:49 promethazine HCl; jd3 22:49 Tape; jd3 - Home Meds: 22:49 Vitamin Oral [Active]; ProAir HFA 90 mcg/actuation inhalation HFAA 2 puffs jd3 every 4-6 hours [Active]; - PMHx: 22:49 Anxiety; Bipolar disorder; Depression; Hypertension; Pre-eclampsia; Asthma; Thyroid jd3 problem; - PSHx: 22:49 Tonsillectomy; ; jd3 - Immunization history:: Adult Immunizations up to date, Flu vaccine is up to date. - Social history:: Smoking status: Patient uses tobacco products, denies chronic smoking, but will smoke occasionally. - Ebola Screening: : Patient negative for fever greater than or equal to 101.5 degrees Fahrenheit, and additional compatible Ebola Virus Disease symptoms. Screenin:13 Abuse screen: Denies threats or abuse. Denies injuries from another. Nutritional ed1 screening: No deficits noted. Tuberculosis screening: No symptoms or risk factors identified. Fall Risk None identified. Assessment: 23:13 Obstetrical Assessment: Patient reports abdominal cramping, vaginal spotting. General: ed1 Appears in no apparent distress. Behavior is calm, cooperative. Pain: Complains of pain in suprapubic area Pain does not radiate. Pain currently is 3 out of 10 on a pain scale. Quality of pain is described as crampy, Pain began 1 hour ago. Is intermittent. Neuro: Level of Consciousness is awake, alert, obeys commands, Oriented to person, place, time, situation. Cardiovascular: Denies chest pain, Heart tones S1 S2 present. Respiratory: Airway is patent Respiratory effort is even, unlabored, Respiratory pattern is regular, symmetrical, Breath sounds are clear bilaterally. GI: No signs and/or symptoms were reported involving the gastrointestinal system. : Reports vaginal bleeding that is spotty. EENT: No signs and/or symptoms were reported regarding the EENT system. Derm: Skin is intact, is healthy with good turgor, Skin is dry, Skin is normal, Skin temperature is warm. Musculoskeletal: Circulation, motion, and sensation intact. Range of motion: intact in all extremities. 10/13 00:16 Reassessment: Patient appears in no apparent distress at this time. No changes from ed1 previously documented assessment. Patient and/or family updated on plan of care and expected duration. Pain level reassessed. Patient is alert, oriented x 3, equal unlabored respirations, skin warm/dry/pink. Vital Signs: 10/12 22:50 BP 128 / 78; Pulse 88; Resp 18 S; Temp 98.4(O); Pulse Ox 100% on R/A; Weight 57.61 kg jd3 (R); Height 5 ft. 3 in. (160.02 cm) (R); Pain 3/10; 10/13 00:16 BP 124 / 79; Pulse 76; Resp 19; Pulse Ox 100% on R/A; Pain 3/10; ed1 10/12 22:50 Body Mass Index 22.50 (57.61 kg, 160.02 cm) jd3 ED Course: 10/12 22:35 Patient arrived in ED. mr 22:36 Princess Hoover FNP-C is [facility]. snw 22:36 Graham Nicholson MD is Attending Physician. snw 22:36 Pat Patrick is Private Physician. mr 22:40 Sandrita Wood, RN is Primary Nurse. ed1 22:48 Triage completed. jd3 22:51 Arm band placed on. jd3 23:13 Patient has correct armband on for positive identification. Placed in gown. Bed in low ed1 position. Call light in reach. Side rails up X 1. Pulse ox on. NIBP on. Door closed. Warm blanket given. 23:13 Initial lab(s) drawn, by me, sent to lab. T\\T\\S collected, blood band applied to patient. ed1 Inserted saline lock: 20 gauge in right antecubital area, using aseptic technique. Blood collected. 03 00:48 No provider procedures requiring assistance completed. IV discontinued, intact, ed1 bleeding controlled, No redness/swelling at site. Pressure dressing applied. Administered Medications: No medications were administered Outcome: 00:35 Discharge ordered by . snw 00:48 Discharged to home ambulatory. ed1 00:48 Condition: good 00:48 Discharge instructions given to patient, Instructed on discharge instructions, follow up and referral plans. Demonstrated understanding of instructions, follow-up care. 00:49 Patient left the ED. ed1 Signatures: Princess Hoover, FRONT CLERK-C FRONT CLERK-Csnw Seema Thomas WoodSandrita, RN RN ed1 Emile Malagon, ELÍAS RN jd3
[2018-10-13 01:19] VITALS: TEMP 98.4; O2SAT 100
[2018-10-13 01:21] VITALS: BP 124/79
== END 2018-10-13 00:49 | disposition home or self-care (01) ==
LOC: ER 22:33
DX: O20.0 Threatened abortion (principal); Z3A.10 10 weeks gestation of pregnancy; J45.909 Unspecified asthma, uncomplicated; Z88.6 Allergy status to analgesic agent
CPT/HCPCS: 36415; 81003; 81025; 84702; 85025; 86850; 86900; 86901; 99283

== ENCOUNTER 2018-11-27 11:25 | Emergency (ER) | payer OTHER ==
--- OUTSIDE RECORDS SUMMARY | 2018-11-27 11:27 | XMS REPORT | Clinical Summary ---
:1995 Author Organization [facility] Address [address] [place] [address] Care Team Providers Name Role Phone Unavailable [...] INFLUENZA VACCINE 05/03/2018 Results Not on fileafter 11/26/2017
--- OUTSIDE RECORDS SUMMARY | 2018-11-27 11:28 | XMS REPORT ---
:1995 [facility] Address [address] [place] [address] Dr. Cart[address] [place] [id number] Care Team Providers Name Role Phone Unavailable Unavailable Unavailable Problems This patient has no known problems. Allergies, Adverse Reactions, Alerts This patient has no known allergies or adverse reactions. Medications This patient has no known medications.
[2018-11-27] MEDS ORDERED: METOCLOPRAMIDE 10 MG/2mL INJ ONE (12:16)
[2018-11-27] MEDS ORDERED: KETOROLAC 30 MG/ML INJ ONE (12:16)
[2018-11-27] MEDS ORDERED: DIPHENHYDRAMINE 50 MG/ML VIAL ONE (12:16)
[2018-11-27] MEDS ORDERED: NA CHLORIDE 0.9% 1,000 ML ONE (12:16)
[2018-11-27 12:29] LABS: Absolute Lymphocytes (CBC) 2.1 K/uL (0.7-4.9); Absolute Monocytes 0.4 K/uL (0.1-1.3); Absolute Neutrophil 4.9 K/uL (1.8-8.0); Basophils % 0.7 % (0-1.3); Eosinophils % 2.5 % (0-4.4); Hematocrit 36.9 % (36.0-45.0); Lymphocytes % 27.2 % (15.3-44.8); Monocytes % 5.3 % (3.3-12.3)
[2018-11-27 12:32] LABS: Urine Blood NEGATIVE (NEG); Urine Glucose NEGATIVE (NEG); Urine Protein NEGATIVE (NEG); Urine pH 5.5 (5.0-7.0)
[2018-11-27 12:46] LABS: BUN Blood Urea Nitrogen 13 mg/dL (7-18); Bicarbonate 24 mmol/L (21-32); Glucose Level 97 mg/dL (74-106); Potassium 3.9 mmol/L (3.5-5.1); Sodium Level 141 mmol/L (136-145)
--- NOTE | 2018-11-27 13:47 | ER ---
Nurse's Notes [facility] Name: Deborah Torres Age: 23 yrs Sex: Female : 1995 Arrival Date: 11/27/2018 Time: 11:28 Bed 14 Private MD: Diagnosis: Nausea and vomiting;Diarrhea, unspecified;Migraine Presentation: 11/27 11:42 Presenting complaint: Patient states: diarrhea X 1 week, vomiting for a few days, iw fever, chills, sore throat, runny nose for 4 days, and headache. Transition of care: patient was not received from another setting of care. Onset of symptoms was November 23, 2018. Risk Assessment: Do you want to hurt yourself or someone else? Patient reports no desire to harm self or others. Initial Sepsis Screen: Does the patient meet any 2 criteria? No. Patient's initial sepsis screen is negative. Does the patient have a suspected source of infection? No. Patient's initial sepsis screen is negative. Care prior to arrival: None. 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 - Social history:: Smoking status: Patient uses tobacco products, denies chronic smoking, but will smoke occasionally. - Ebola Screening: : Patient negative for fever greater than or equal to 101.5 degrees Fahrenheit, and additional compatible Ebola Virus Disease symptoms Patient denies exposure to infectious person Patient denies travel to an Ebola-affected area in the 21 days before illness onset No symptoms or risks identified at this time. Screenin:36 Abuse screen: Denies threats or abuse. Denies injuries from another. Nutritional jl7 screening: No deficits noted. Tuberculosis screening: No symptoms or risk factors identified. Fall Risk IV access (20 points). Total Chan Fall Scale indicates No Risk (0-24 pts). Assessment: 12:00 Pain: Complains of pain in EATON Pain currently is 8.5 out of 10 on a pain scale. Quality jl7 of pain is described as aching, Pain began 2-3 days ago. Is continuous. Neuro: Level of Consciousness is awake, alert, obeys commands, Oriented to person, place, time, situation. Cardiovascular: Patient's skin is warm and dry. Respiratory: Airway is patent Respiratory effort is even, unlabored, Respiratory pattern is regular, symmetrical. GI: Abdomen is round non-distended. : No signs and/or symptoms were reported regarding the genitourinary system. EENT: No signs and/or symptoms were reported regarding the EENT system. Derm: Skin is pink, warm \T\ dry. Musculoskeletal: No signs and/or symptoms reported regarding the musculoskeletal system. 12:33 General: Appears in no apparent distress. jl7 13:30 Reassessment: Patient appears in no apparent distress at this time. Patient and/or jl7 family updated on plan of care and expected duration. Pain level reassessed. Patient is alert, oriented x 3, equal unlabored respirations, skin warm/dry/pink. Pt given a cup of water and is attempting to drink it now. Vital Signs: 11:44 BP 133 / 85; Pulse 80; Resp 16; Temp 99.5(O); Pulse Ox 99% on R/A; Weight 90.72 kg; iw Height 5 ft. 4 in. (162.56 cm); Pain 7/10; 13:48 BP 123 / 68; Pulse 68; Resp 16 S; Pulse Ox 99% on R/A; Pain 2/10; jl7 11:44 Body Mass Index 34.33 (90.72 kg, 162.56 cm) iw ED Course: 11:28 Patient arrived in ED. rg4 11:31 Tea Hooper FNP-C [facility]. kb 11:31 Luke Hi MD is Attending Physician. kb 11:43 Triage completed. iw 11:45 Arm band placed on. iw 11:55 Monse Tran, ELÍAS is Primary Nurse. jl7 12:20 Initial lab(s) drawn, by me, sent to lab. Urine collected: clean catch specimen, clear, jl7 Flu and/or RSV swab sent to lab. Inserted saline lock: 22 gauge in right forearm, using aseptic technique. Blood collected. 12:36 Patient has correct armband on for positive identification. Bed in low position. Call jl7 light in reach. Side rails up X 1. Pulse ox on. NIBP on. Warm blanket given. 13:58 No provider procedures requiring assistance completed. IV discontinued, intact, jl7 bleeding controlled, No redness/swelling at site. Pressure dressing applied. Administered Medications: 12:12 Drug: NS 0.9% 1000 ml Route: IV; Rate: 1000 ml; Site: right forearm; jl7 13:30 Follow up: IV Status: Completed infusion; IV Intake: 1000ml jl7 12:13 Drug: TORadol 30 mg Route: IVP; Site: right forearm; jl7 13:30 Follow up: Response: No adverse reaction; Pain is decreased jl7 12:15 Drug: Benadryl 12.5 mg Route: IVP; Site: right forearm; jl7 13:15 Follow up: Response: No adverse reaction; Pain is decreased jl7 12:18 Drug: Reglan 10 mg Route: IVP; Site: right forearm; jl7 13:30 Follow up: Response: No adverse reaction jl7 Intake: 13:30 IV: 1000ml; Total: 1000ml. jl7 Outcome: 13:46 Discharge ordered by . nicki 13:58 Discharged to home ambulatory. jl7 13:58 Condition: stable 13:58 Discharge instructions given to patient, Instructed on discharge instructions, follow up and referral plans. medication usage, Demonstrated understanding of instructions, follow-up care, medications, Prescriptions given X 2. 13:59 Patient left the ED. jl7 Signatures: Tea Hooper, KYLEEC ULTRASOUND TECH-Bonnie Felipe, RN Anna Birch Jahala, RN RN jl7
--- NOTE | 2018-11-27 13:47 | EDPHYS ---
Physician Documentation [facility] Name: Deborah Torres Age: 23 yrs Sex: Female : 1995 Arrival Date: 11/27/2018 Time: 11:28 Bed 14 Private MD: ED Physician Luke Hi HPI: 11/27 13:31 This 23 yrs old Female presents to ER via Ambulatory with complaints of kb Vomiting, Cough, Runny Nose. 13:31 The patient presents to the emergency department with nausea, vomiting, diarrhea, kb abdominal pain, described as crampy. Onset: The symptoms/episode began/occurred 1 week(s) ago. Possible causes: unknown. The symptoms are aggravated by nothing. The symptoms are alleviated by nothing. Associated signs and symptoms: Pertinent positives: diarrhea, nausea, vomiting. Severity of symptoms: At their worst the symptoms were moderate in the emergency department the symptoms are unchanged. The patient has not experienced similar symptoms in the past. The patient has not recently seen a physician. 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 - Social history:: Smoking status: Patient uses tobacco products, denies chronic smoking, but will smoke occasionally. - Ebola Screening: : Patient negative for fever greater than or equal to 101.5 degrees Fahrenheit, and additional compatible Ebola Virus Disease symptoms Patient denies exposure to infectious person Patient denies travel to an Ebola-affected area in the 21 days before illness onset No symptoms or risks identified at this time. ROS: 13:31 ENT: Negative for injury, pain, and discharge, Neck: Negative for injury, pain, and kb swelling, Cardiovascular: Negative for chest pain, palpitations, and edema, Respiratory: Negative for shortness of breath, cough, wheezing, and pleuritic chest pain, Back: Negative for injury and pain, MS/Extremity: Negative for injury and deformity, Skin: Negative for injury, rash, and discoloration, Neuro: Negative for headache, weakness, numbness, tingling, and seizure. 13:31 Constitutional: Positive for body aches, chills, fatigue, fever, malaise, Negative for poor PO intake, weight loss. 13:31 Abdomen/GI: Positive for nausea, vomiting, and diarrhea, abdominal cramps. Exam: 13:30 Constitutional: This is a well developed, well nourished patient who is awake, alert, kb and in no acute distress. Head/Face: Normocephalic, atraumatic. ENT: Nares patent. No nasal discharge, no septal abnormalities noted. Tympanic membranes are normal and external auditory canals are clear. Oropharynx with no redness, swelling, or masses, exudates, or evidence of obstruction, uvula midline. Mucous membranes moist. Neck: Trachea midline, no thyromegaly or masses palpated, and no cervical lymphadenopathy. Supple, full range of motion without nuchal rigidity, or vertebral point tenderness. No Meningismus. Chest/axilla: Normal chest wall appearance and motion. Nontender with no deformity. No lesions are appreciated. Cardiovascular: Regular rate and rhythm with a normal S1 and S2. No gallops, murmurs, or rubs. Normal PMI, no JVD. No pulse deficits. Respiratory: Lungs have equal breath sounds bilaterally, clear to auscultation and percussion. No rales, rhonchi or wheezes noted. No increased work of breathing, no retractions or nasal flaring. Abdomen/GI: Soft, non-tender, with normal bowel sounds. No distension or tympany. No guarding or rebound. No evidence of tenderness throughout. Skin: Warm, dry with normal turgor. Normal color with no rashes, no lesions, and no evidence of cellulitis. MS/ Extremity: Pulses equal, no cyanosis. Neurovascular intact. Full, normal range of motion. Neuro: Awake and alert, GCS 15, oriented to person, place, time, and situation. Cranial nerves II-XII grossly intact. Motor strength 5/5 in all extremities. Sensory grossly intact. Cerebellar exam normal. Normal gait. Vital Signs: 11:44 BP 133 / 85; Pulse 80; Resp 16; Temp 99.5(O); Pulse Ox 99% on R/A; Weight 90.72 kg; iw Height 5 ft. 4 in. (162.56 cm); Pain 7/10; 13:48 BP 123 / 68; Pulse 68; Resp 16 S; Pulse Ox 99% on R/A; Pain 2/10; jl7 11:44 Body Mass Index 34.33 (90.72 kg, 162.56 cm) iw MDM: 11:33 Patient medically screened. kb 13:30 Data reviewed: vital signs, nurses notes. Data interpreted: Pulse oximetry: on room air kb is 99 %. Interpretation: normal. Counseling: I had a detailed discussion with the patient and/or guardian regarding: the historical points, exam findings, and any diagnostic results supporting the discharge/admit diagnosis, lab results, the need for outpatient follow up, a family practitioner, to return to the emergency department if symptoms worsen or persist or if there are any questions or concerns that arise at home. 11/27 11:44 Order name: Basic Metabolic Panel; Complete Time: 12:48 kb 11/27 11:44 Order name: CBC with Diff; Complete Time: 12:40 kb 11/27 11:44 Order name: Flu; Complete Time: 12:41 kb 11/27 12:08 Order name: Urine Dipstick--Ancillary (enter results); Complete Time: 12:39 eb 11/27 12:08 Order name: Urine --Ancillary (enter results); Complete Time: 12:39 eb 11/27 11:44 Order name: IV Saline Lock; Complete Time: 12:25 kb 11/27 11:44 Order name: Labs collected and sent; Complete Time: 12:25 kb 11/27 11:44 Order name: Urine Dipstick-Ancillary (obtain specimen); Complete Time: 12:24 kb 11/27 13:30 Order name: PO challenge; Complete Time: 13:45 kb Administered Medications: 12:12 Drug: NS 0.9% 1000 ml Route: IV; Rate: 1000 ml; Site: right forearm; jl7 13:30 Follow up: IV Status: Completed infusion; IV Intake: 1000ml jl7 12:13 Drug: TORadol 30 mg Route: IVP; Site: right forearm; jl7 13:30 Follow up: Response: No adverse reaction; Pain is decreased jl7 12:15 Drug: Benadryl 12.5 mg Route: IVP; Site: right forearm; jl7 13:15 Follow up: Response: No adverse reaction; Pain is decreased jl7 12:18 Drug: Reglan 10 mg Route: IVP; Site: right forearm; jl7 13:30 Follow up: Response: No adverse reaction jl7 Disposition: 16:53 Co-signature as Attending Physician, Luke Hi MD. rn Disposition: 11/27/18 13:46 Discharged to Home. Impression: Nausea and vomiting, Diarrhea, unspecified, Migraine. - Condition is Stable. - Discharge Instructions: Nausea and Vomiting, Adult, [id number], Diarrhea, Adult, [id number], Migraine Headache, [id number]. - Prescriptions for Bentyl 20 mg Oral Tablet - take 1 tablet by ORAL route every 6 hours As needed; 20 tablet. Zofran 4 mg Oral Tablet - take 1 tablet by ORAL route every 6 hours As needed; 20 tablet. - Medication Reconciliation Form, Thank You Letter, Antibiotic Education, Prescription Opioid Use, Work release form form. - Follow up: Emergency Department; When: As needed; Reason: Worsening of condition. Follow up: Private Physician; When: 2 - 3 days; Reason: Recheck today's complaints, Continuance of care, Re-evaluation by your physician. Signatures: Dispatcher [employer] EDTea Ventura, PHYSICAL TESTING SUPERVISOR-C PHYSICAL TESTING SUPERVISOR-Ckb Bonnie Abad RN RN iw Nieto, Roman, MD MD rn Leal, Jahala, RN RN jl7 Corrections: (The following items were deleted from the chart) 13:59 13:46 11/27/2018 13:46 Discharged to Home. Impression: Nausea and vomiting; Diarrhea, jl7 unspecified; Migraine. Condition is Stable. Forms are Medication Reconciliation Form, Thank You Letter, Antibiotic Education, Prescription Opioid Use. Follow up: Emergency Department; When: As needed; Reason: Worsening of condition. Follow up: Private Physician; When: 2 - 3 days; Reason: Recheck today's complaints, Continuance of care, Re-evaluation by your physician. kb
[2018-11-27 14:04] VITALS: TEMP 99.5; O2SAT 99
[2018-11-27 14:05] VITALS: BP 123/68
== END 2018-11-27 13:59 | disposition home or self-care (01) ==
LOC: ER 11:25
DX: G43.909 Migraine, unspecified, not intractable, without status migrainosus (principal); R11.2 Nausea with vomiting, unspecified; R19.7 Diarrhea, unspecified; F41.9 Anxiety disorder, unspecified; J45.909 Unspecified asthma, uncomplicated; F31.9 Bipolar disorder, unspecified; F32.9 Major depressive disorder, single episode, unspecified; I10 Essential (primary) hypertension; Z88.5 Allergy status to narcotic agent; Z88.8 Allergy status to other drugs, medicaments and biological substances; Z72.0 Tobacco use
CPT/HCPCS: 36415; 80048; 81003; 81025; 85025; 87804; 96361; 96374; 96375; 99284; J2765; J7030

== ENCOUNTER 2018-12-17 15:47 | Emergency (ER) | payer OTHER ==
--- OUTSIDE RECORDS SUMMARY | 2018-12-17 15:49 | XMS REPORT ---
:1995 [facility] Address [address] [place] [address] Dr. Cartwright [address] [place] [id number] Care Team Providers Name Role Phone Unavailable Unavailable Unavailable Problems This patient has no known problems. Allergies, Adverse Reactions, Alerts This patient has no known allergies or adverse reactions. Medications This patient has no known medications.
--- OUTSIDE RECORDS SUMMARY | 2018-12-17 15:49 | XMS REPORT | Clinical Summary ---
:1995 Author Organization [facility] Address [address] [place] [address] Care Team Providers Name Role Phone Unavailable [...] INFLUENZA VACCINE 05/03/2018 Results Not on fileafter 12/16/2017
[2018-12-17 18:15] LABS: Absolute Lymphocytes (CBC) 2.3 K/uL (0.7-4.9); Absolute Monocytes 0.5 K/uL (0.1-1.3); Absolute Neutrophil 6.5 K/uL (1.8-8.0); Basophils % 1.2 % (0-1.3); Eosinophils % 1.1 % (0-4.4); Hematocrit 37.6 % (36.0-45.0); Lymphocytes % 23.9 % (15.3-44.8); MPV 9.9 fL (7.6-11.3); Monocytes % 5.2 % (3.3-12.3); RBC Red Blood Cell Count 5.33 M/uL (3.86-4.86)
[2018-12-17] MEDS ORDERED: NA CHLORIDE 0.9% 1,000 ML ONE (18:15)
[2018-12-17 18:42] LABS: Urine Blood NEGATIVE (NEG); Urine Glucose NEGATIVE (NEG); Urine Protein TRACE (NEG); Urine Specific Gravity 1.025 (1.005-1.030); Urine pH 5.5 (5.0-7.0)
[2018-12-17 19:00] LABS: ALT/SGPT 87 U/L (12-78); AST/SGOT 43 U/L (15-37); Albumin 3.7 g/dL (3.4-5.0); Alkaline Phosphatase 118 U/L (45-117); BUN Blood Urea Nitrogen 12 mg/dL (7-18); Bicarbonate 23 mmol/L (21-32); Bilirubin Direct 0.2 mg/dL (0-0.2); Bilirubin Total 0.8 mg/dL (0.2-1.0); Glucose Level 88 mg/dL (74-106); Lipase 87 U/L (73-393); Potassium 3.8 mmol/L (3.5-5.1); Protein, Total 7.3 g/dL (6.4-8.2); Sodium Level 143 mmol/L (136-145)
--- NOTE | 2018-12-17 19:49 | ER ---
Nurse's Notes [facility] Name: Deborah Torres Age: 23 yrs Sex: Female : 1995 Arrival Date: 12/17/2018 Time: 15:49 Bed 23 Private MD: Diagnosis: Abdominal and pelvic pain;Diarrhea, unspecified Presentation: 12/17 15:52 Presenting complaint: Patient states: N/V/D and lower abd pressure that began 3.5 weeks ss ago. Pt was diagnosed with a stomach bug 2 weeks ago in the ER. Transition of care: patient was not received from another setting of care. Onset of symptoms was November 2018. Risk Assessment: Do you want to hurt yourself or someone else? Patient reports no desire to harm self or others. Initial Sepsis Screen: Does the patient meet any 2 criteria? No. Patient's initial sepsis screen is negative. Does the patient have a suspected source of infection? No. Patient's initial sepsis screen is negative. Care prior to arrival: None. 15:52 Method Of Arrival: Ambulatory ss 15:52 Acuity: NORM 3 ss Triage Assessment: 19:20 General: Appears in no apparent distress. Behavior is calm, cooperative. Pain: Denies ls4 pain. GI: Reports diarrhea. 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 - Social history:: Smoking status: Patient uses tobacco products, smokes one-half pack cigarettes per day. - Ebola Screening: : Patient denies exposure to infectious person Patient denies travel to an Ebola-affected area in the 21 days before illness onset. Screenin:23 Abuse screen: Denies threats or abuse. Denies injuries from another. Nutritional ls4 screening: No deficits noted. Tuberculosis screening: No symptoms or risk factors identified. Fall Risk None identified. Assessment: 19:21 GI: Abdomen is non-distended, obese, Bowel sounds present X 4 quads. Abd is soft and ls4 non tender X 4 quads. Vital Signs: 15:54 BP 132 / 92; Pulse 89; Resp 16; Temp 98.5(TE); Pulse Ox 98% on R/A; Weight 106.59 kg; ss Height 5 ft. 4 in. (162.56 cm); Pain 8/10; 19:22 BP 127 / 88; Pulse 76; Resp 16; Temp 98.3; Pulse Ox 99% on R/A; Pain 0/10; ls4 15:54 Body Mass Index 40.34 (106.59 kg, 162.56 cm) ED Course: 15:49 Patient arrived in ED. as 15:53 Triage completed. ss 15:54 Arm band placed on left wrist. ss 17:10 Bed in low position. Call light in reach. Side rails up X 1. ls4 17:12 Robles Graham PA is PHCP. [facility] 17:12 Graham Nicholson MD is Attending Physician. [facility] 17:48 Kacey Lawrence RN is Primary Nurse. ls4 18:00 No provider procedures requiring assistance completed. Inserted saline lock: 20 gauge ls4 in right antecubital area, using aseptic technique. Blood collected. 18:05 Basic Metabolic Panel Sent. ls4 19:05 Pulse ox on. NIBP on. Door closed. Warm blanket given. Pillow given. Verbal reassurance ls4 given. 19:05 Initial lab(s) drawn, by dc, sent to lab. ls4 19:48 Macario Cummins MD is Referral Physician. jmm 20:15 IV discontinued, intact, bleeding controlled, No redness/swelling at site. Pressure ls4 dressing applied. Administered Medications: 18:05 Drug: NS 0.9% 1000 ml Route: IV; Rate: 1 bolus; Site: right antecubital; ls4 19:05 Follow up: IV Status: Completed infusion; IV Intake: 1000ml ls4 Intake: 19:05 IV: 1000ml; Total: 1000ml. ls4 Outcome: 19:48 Discharge ordered by . [facility] 20:15 Discharged to home ambulatory, with family. ls4 20:15 Condition: improved 20:15 Discharge instructions given to Instructed on discharge instructions, follow up and referral plans. medication usage, Demonstrated understanding of instructions, follow-up care, medications. 20:16 Patient left the ED. ls4 Signatures: Mickail, Robles, PA PA jmm Steffen, Radha as Smirch, Deloris, ELÍAS RN ss Kacey Lawrence RN RN ls4
--- NOTE | 2018-12-17 19:49 | EDPHYS ---
Physician Documentation [facility] Name: Deborah Torres Age: 23 yrs Sex: Female : 1995 Arrival Date: 12/17/2018 Time: 15:49 Bed 23 Private MD: ED Physician Graham Nicholson HPI: 12/17 17:40 This 23 yrs old Female presents to ER via Ambulatory with complaints of jmm Vomiting/Diarrhea, Abdominal Pain, Headache. 17:40 The patient presents to the emergency department with nausea, diarrhea. Onset: The jmm symptoms/episode began/occurred gradually, 2.5 week(s) ago. Possible causes: unknown. The symptoms are aggravated by nothing. The symptoms are alleviated by nothing. This is a 23 year old female with a history of anxiety, bipolar, depression, htn that presents to the ED with complaints of ongoing cough, sore throat, diarrhea, beginning 2.5 weeks ago. Patient states over the counter medication gives her no relief. . [employer]: 19:20 LMP N/A - control method ls4 Historical: - Allergies: 15:54 HYDROCODONE; ss 15:54 promethazine HCl; ss 15:54 Tape; ss - PMHx: 15:54 Anxiety; Asthma; Bipolar disorder; Depression; Hypertension; Pre-eclampsia; Thyroid ss problem; - PSHx: 15:54 Tonsillectomy; ; ss - Immunization history:: Adult Immunizations up to date. - Social history:: Smoking status: Patient uses tobacco products, smokes one-half pack cigarettes per day. - Ebola Screening: : Patient denies exposure to infectious person Patient denies travel to an Ebola-affected area in the 21 days before illness onset. ROS: 17:40 Constitutional: Negative for fever, chills, and weight loss. jmm 17:40 Cardiovascular: Negative for chest pain, palpitations, and edema. 17:40 ENT: Positive for sore throat. 17:40 Respiratory: Positive for cough. 17:40 Abdomen/GI: Positive for diarrhea. 17:40 All other systems are negative. Exam: 17:40 Head/Face: atraumatic. Eyes: EOMI, no conjunctival erythema appreciated ENT: Moist jmm Mucus Membranes Neck: Trachea midline, Supple Chest/axilla: Normal chest wall appearance and motion. Cardiovascular: Regular rate and rhythm. No edema appreciated Respiratory: Normal respirations, no respiratory distress appreciated 17:40 Constitutional: The patient appears in no acute distress, alert, awake. 17:40 Abdomen/GI: Inspection: abdomen appears normal, Bowel sounds: normal, Palpation: soft, in all quadrants. 17:40 Musculoskeletal/extremity: ROM: intact in all extremities. 17:40 Skin: Appearance: Color: 17:40 Neuro: Orientation: is normal, Mentation: is normal, Memory: is normal. 17:40 Psych: Behavior/mood is pleasant, cooperative. Vital Signs: 15:54 BP 132 / 92; Pulse 89; Resp 16; Temp 98.5(TE); Pulse Ox 98% on R/A; Weight 106.59 kg; ss Height 5 ft. 4 in. (162.56 cm); Pain 8/10; 19:22 BP 127 / 88; Pulse 76; Resp 16; Temp 98.3; Pulse Ox 99% on R/A; Pain 0/10; ls4 15:54 Body Mass Index 40.34 (106.59 kg, 162.56 cm) ss MDM: 17:35 Patient medically screened. [facility] 19:47 Data reviewed: vital signs, nurses notes. Counseling: I had a detailed discussion with [facility] the patient and/or guardian regarding: the historical points, exam findings, and any diagnostic results supporting the discharge/admit diagnosis, the need for outpatient follow up, to return to the emergency department if symptoms worsen or persist or if there are any questions or concerns that arise at home. 19:47 ED course: On reeevaluation of the patient's abdomen, patient has pain on palpation of [facility] the right upper and lower quadrant. I advised the patient the need for ct imaging for further evaluation. Patient declined CT. Patient was made aware that missed appendicitis could be life threatening. Patient understood and stated she would return to the ED tomorrow morning for reevaluation. Patient was otherwise given strict return precautions. . 12/17 17:36 Order name: Basic Metabolic Panel [facility] 12/17 17:36 Order name: CBC with Diff; Complete Time: 18:50 [facility] 12/17 17:36 Order name: Creatinine for Radiology; Complete Time: 18:50 [facility] 12/17 17:36 Order name: Hepatic Function; Complete Time: 19:17 [facility] 12/17 17:36 Order name: Lipase; Complete Time: 19:17 [facility] 12/17 17:36 Order name: Coles Screen Profile; Complete Time: 18:50 [facility] 12/17 17:36 Order name: IV Saline Lock; Complete Time: 18:05 [facility] 12/17 17:36 Order name: Labs collected and sent; Complete Time: 18:05 [facility] 12/17 17:36 Order name: Urine Dipstick-Ancillary (obtain specimen); Complete Time: 18:50 [facility] 12/17 17:36 Order name: Basic Metabolic Panel; Complete Time: 19:17 [facility] 12/17 18:19 Order name: Urine Dipstick--Ancillary (enter results); Complete Time: 18:50 eb Administered Medications: 18:05 Drug: NS 0.9% 1000 ml Route: IV; Rate: 1 bolus; Site: right antecubital; ls4 19:05 Follow up: IV Status: Completed infusion; IV Intake: 1000ml ls4 Disposition: 12/18 08:26 Co-signature as Attending Physician, Graham Nicholson MD. Disposition: 12/17/18 19:48 Discharged to Home. Impression: Abdominal and pelvic pain, Diarrhea, unspecified. - Condition is Stable. - Discharge Instructions: Abdominal Pain, Adult, Diarrhea, Adult, Pelvic Pain, Female. - Medication Reconciliation Form, Thank You Letter, Antibiotic Education, Prescription Opioid Use, Work release form form. - Follow up: Macario Cummins MD; When: 2 - 3 days; Reason: Recheck today's complaints, Continuance of care, Re-evaluation by your physician. Signatures: Dispatcher [employer] [facility] Robles Graham PA PA jmm Smirch, Shelby, Graham Arevalo RN, MD MD Kacey Lawrence, RN RN ls4 Corrections: (The following items were deleted from the chart) 12/17 20:16 19:48 12/17/2018 19:48 Discharged to Home. Impression: Abdominal and pelvic pain; ls4 Diarrhea, unspecified. Condition is Stable. Forms are Medication Reconciliation Form, Thank You Letter, Antibiotic Education, Prescription Opioid Use. Follow up: Macario Cummins; When: 2 - 3 days; Reason: Recheck today's complaints, Continuance of care, Re-evaluation by your physician. [facility]
[2018-12-17 20:23] VITALS: BP 127/88; TEMP 98.3; O2SAT 99
== END 2018-12-17 20:16 | disposition home or self-care (01) ==
LOC: ER 15:47
DX: R19.7 Diarrhea, unspecified (principal); I10 Essential (primary) hypertension; F17.210 Nicotine dependence, cigarettes, uncomplicated; Z88.5 Allergy status to narcotic agent; Z88.8 Allergy status to other drugs, medicaments and biological substances
CPT/HCPCS: 36415; 80048; 80076; 81003; 83690; 85025; 86308; 96360; 99284; J7030

== ENCOUNTER 2019-03-28 18:36 | Emergency (ER) | payer OTHER ==
--- OUTSIDE RECORDS SUMMARY | 2019-03-28 19:07 | XMS REPORT | Clinical Summary ---
:1995 Author Organization [facility] Address [address] [place] [address] Care Team Providers Name Role Phone Unavailable [...] INFLUENZA VACCINE 05/03/2018 Results Not on fileafter 03/27/2018
--- OUTSIDE RECORDS SUMMARY | 2019-03-28 19:07 | XMS REPORT | Summary of Care ---
:1995 Author Organization [facility] Address [address] [place] [address] Care Team Providers Name Role Phone Jeremie Michael Medicaid o Jaswinder Montesinos Primary Care Provider Unavailable Encounter Details Date Type Department Care Team Description 03/02/2019 Orders Only [facility] Doctor Unassigned, No [address] [facility] [place] [address] [address] [place] [address] Allergies Active Allergy Reactions Severity Noted Date Comments Adhesive Tape-Silicones Rash 10/09/2015 Hydrocodone Rash 09/14/2014 itching Promethazine Hcl Itching 09/02/2018 Itching and hives documented as of this encounter (statuses as of 03/03/2019) Medications Medication Sig Dispensed Refills Start Date End Date Status acetaminophen (TYLENOL) Take by mouth. 0 Active 325 mg Cap albuterol 90 Inhale 2 Puffs 8.5 g 3 09/02/2018 Active mcg/actuation every 6 (six) inhalerIndications: hours as needed History of asthma for Wheezing or Shortness of Breath. hydroxyprogesterone 1 mL by 1 mL 0 09/27/2018 Active caproate, ppres, 250 Intramuscular mg/mL route weekly. injectionIndications: H/O premature rupture of membranes in previous , currently , first trimester doxylamine-pyridoxine, Take two tablets 60 tablet 1 09/27/2018 Active vit B6, (DICLEGIS) 10-10 at bedtime on day mg per 1 and 2. If tabletIndications: High symptoms persist, risk , take a 1 tablet in antepartum morning and 2 at bedtime. If symptoms persist, take 1 in am, 1 in pm and 2 at bedtime. (maximum 4 tablets per day) vit Take 1 Packet by 30 Each 6 10/11/2018 Active 77-ffsz-chgxr-dha mouth daily. (SELECT-OB + DHA) 29 mg iron-1 mg -250 mg combo packIndications: High risk , antepartum ondansetron (ZOFRAN) 4 Take 1 tablet by 4 tablet 0 10/28/2018 Active mg tabletIndications: mouth every 8 Missed (eight) hours as needed for Nausea and Vomiting (N/V). ibuprofen 800 mg Take 1 tablet by 20 tablet 0 11/04/2018 Active tabletIndications: mouth every 8 Missed (eight) hours as needed for Pain (scale 1-3) or Pain (scale 4-6). documented as of this encounter (statuses as of 03/03/2019) Active Problems Problem Noted Date Threatened miscarriage in early 10/13/2018 Desires (vaginal after ) trial 09/02/2018 Hx of preeclampsia, prior , currently , first trimester 09/02 Right thyroid nodule 08/05/2017 H/O premature rupture of membranes in previous , currently 07/30/2017 , first trimester Previous delivery affecting , antepartum 10/20/2016 Multiparity 10/20/2016 Obesity 10/20/2016 History of depression 04/16/2015 History of anxiety 04/16/2015 History of asthma 04/16/2015 Thyroid hormone resistance syndrome 02/14/2015 Other specified hypothyroidism 09/18/2014 Overview: Dx at age 11. Levothyroxine- discontinued by Mar 2104. 12/11/2013 TSH=4.5 FT4=2.82 (high) FT3=7.28 (high). Recurrent too hot or too cold, N/V no weight loss (3 lb wt gain in preg). YAN (-), RF (-). History of seizures 09/18/2014 Overview: Childhood x 1 episiode documented as of this encounter (statuses as of 03/03/2019) Resolved Problems Problem Noted Date Resolved Date High-risk in first trimester 07/30/2017 09/02/2018 Supervision of high risk , antepartum, first 10/20/2016 09/02/2018 trimester Encounter for routine gynecological examination 04/16/2015 10/20/2016 Overview: ICD10 Diagnosis Term Dye Line Operator Utility Screening for STD (sexually transmitted disease) 04/16/2015 10/20/2016 General counseling and advice for contraceptive management 04/16/20152016 Overview: ICD10 Diagnosis Term Dye Line Operator Utility Initiation of Depo Provera 04/16/2015 10/20/2016 Anemia 04/16/2015 10/20/2016 Overview: ICD10 Diagnosis Term Dye Line Operator Utility care and examination of lactating mother 03/14/2015 04/16/2015 Hemorrhoids, 03/14/2015 04/16/2015 contractions, third trimester 02/22/2015 03/14/2015 Thyroid nodule 02/14/2015 03/15/2015 Elevated blood pressure 02/13/2015 03/15/2015 Hyperthyroidism 02/13/2015 03/14/2015 Acute headache 02/12/2015 03/14/2015 Nausea and vomiting during prior to 22 weeks 12/18/2014 03/14/2015 gestation Supervision of other high-risk 09/18/2014 03/14/2015 Overview: ICD10 Diagnosis Term Dye Line Operator Utility Asthma 09/18/2014 04/16/2015 Overview: Dx at age 6-7. Inhaler combivent, albuterol nebulizer and xopinex. ICD10 Diagnosis Term Dye Line Operator Utility Generalized anxiety disorder 09/18/2014 04/16/2015 Overview: Problem with breathing and leg paralyze with "shockling pain". No med Depression 09/18/2014 04/16/2015 Overview: Bipolar- since age 16-17 with suicidal attempt with conflict with mom. Trial of antidepressant and stopped med due to thyroid med problem. No med last 2 years.. Cannot control anger. No manic state. Obesity complicating , childbirth, or puerperium, 09/18/20142014 antepartum Overview: ICD10 Diagnosis Term Dye Line Operator Utility documented as of this encounter (statuses as of 03/03/2019) Immunizations Name Administration Dates Next Due HPV 07/05/2010, 02/12/2010, 12/14/2009 Influenza Virus Vaccine - Whole 07/05/2010 Influenza Virus Vaccine Quad .5 mL IM 6+ 09/27/2018 MO Influenza Virus Vaccine Quad IM 3+ YRS 10/20/2016 Tdap 01/29/2015 documented as of this encounter Social History Tobacco Use Types Packs/Day Years Used Date Former Smoker 0.5 1 Smokeless Tobacco: Never Used Comments: 3-4 cig /day for 8 yrs but stopped for Alcohol Use Drinks/Week oz/Week Comments No 0 Standard drinks or equivalent 0.0 Sex Assigned at Date Recorded Not on file Job Start Date Occupation Industry Not on file Not on file Not on file Travel History Travel Start Travel End No recent travel history available. documented as of this encounter Last Filed Vital Signs Not on filedocumented in this encounter Plan of Treatment Health Maintenance Due Date Last Done Comments MENINGOCOCCAL B VACCINES (1 2005 of 2 - Risk Bexsero 2-dose series) INFLUENZA VACCINE 04/03/2019 09/27/2018, 10/20/2016, 07/05/2010 CHLAMYDIA SCREENING 09/02/2019 09/02/2018, 07/02/2017, 10/20/2016, Additional history exists PAP SMEAR 10/21/2019 10/20/2016 DTaP,Tdap,and Td Vaccines (2 01/29/2025 01/29/2015 - Td) HPV VACCINES Completed 07/05/2010, 02/12/2010, 12/14/2009 PNEUMOCOCCAL 0-64 YEARS Aged Out No longer eligible COMBINED SERIES based on patient's age to complete this topic documented as of this encounter Procedures Procedure Name Priority Date/Time Associated Diagnosis Comments SCANNED LAB RESULTS Routine 03/02/2019 12:01 AM CDT documented in this encounter Results SCANNED LAB RESULTS (03/02/2019 12:01 AM CDT) Specimen Performing Organization Address City/State/Zipcode Phone Number HIM documented in this encounter Insurance Payer Benefit Plan / Subscriber ID Effective Phone Address Type Group Dates [employer] xxxxxxxxx 2019-Pres [address] Medicaid [facility] ent [id number] [place] [address] [employer] MEDICAID OF xxxxxxxxx 2018-Pres [phone] Medicaid [place] ent [id number] [place] [address] documented as of this encounter
--- OUTSIDE RECORDS SUMMARY | 2019-03-28 19:07 | XMS REPORT ---
:1995 Author [facility] Address [address] [place] [address] Dr. Cartwright [address] [place] [id number] Care Team Providers Name Role Phone Unavailable Unavailable Unavailable Problems This patient has no known problems. Allergies, Adverse Reactions, Alerts This patient has no known allergies or adverse reactions. Medications This patient has no known medications.
[2019-03-28] MEDS ORDERED: FAMOTIDINE 20 MG/2 ML VIAL IV ONE (19:47)
[2019-03-28] MEDS ORDERED: ONDANSETRON 4 MG/2 ML VIAL ONE (19:47)
[2019-03-28 20:26] LABS: Absolute Lymphocytes (CBC) 2.4 K/uL (0.7-4.9); Basophils % 0.6 % (0-1.3); Hematocrit 40.9 % (36.0-45.0); Lymphocytes % 25.6 % (15.3-44.8); RBC Red Blood Cell Count 5.73 M/uL (3.86-4.86)
[2019-03-28 20:39] LABS: Albumin 3.7 g/dL (3.4-5.0); Bilirubin Direct 0.1 mg/dL (0-0.2); Bilirubin Total 0.6 mg/dL (0.2-1.0); Potassium 3.5 mmol/L (3.5-5.1)
--- NOTE | 2019-03-28 20:44 | RAD REPORT ---
EXAM DESCRIPTION: US - Abdomen Exam Limited - 03/28/2019 8:02 pm CLINICAL HISTORY: ABD PAIN COMPARISON: Abdomen Exam Limited dated 11/06/2017 FINDINGS: No gallstones, sludge or other abnormalities within the gallbladder lumen. There is no wal l thickening or pericholecystic fluid. No common duct stone or biliary tree dilatation identified. Fatty infiltration of the liver. IMPRESSION: Normal gallbladder and biliary tree ultrasound. Fatty infiltration of the liver. Liver only partially imaged.
[2019-03-28] MEDS ORDERED: LIDOCAINE VISCOUS 2% SOLN 15 ML UDC ONE (20:56)
[2019-03-28] MEDS ORDERED: MAGNE/ALUM HYDROXD 30 ML UCUP ONE (20:56)
[2019-03-28 21:13] LABS: Urine Blood NEGATIVE (NEG); Urine Glucose NEGATIVE (NEG); Urine Protein NEGATIVE (NEG); Urine pH 5.5 (5.0-7.0)
--- NOTE | 2019-03-28 21:22 | ER ---
Nurse's Notes [facility] Name: Deborah Torres Age: 23 yrs Sex: Female : 1995 Arrival Date: 03/28/2019 Time: 18:43 Bed 8 Private MD: Pat Patrick Diagnosis: Upper abdominal pain, unspecified;Cough Presentation: 03/28 19:12 Presenting complaint: Patient states: Upper abdominal pain that has increased; cough lp1 and congestion, fatigue; "I kailey throw up every now and then and it's mucus"; "It hurts for me to breath, cough and laugh; and my urine is a whole different color". Transition of care: patient was not received from another setting of care. Onset of symptoms was March 28, 2019. Risk Assessment: Do you want to hurt yourself or someone else? Patient reports no desire to harm self or others. Care prior to arrival: None. 19:12 Method Of Arrival: Ambulatory lp1 19:12 Acuity: NORM 3 lp1 19:30 Initial Sepsis Screen: Does the patient meet any 2 criteria? No. Patient's initial rr5 sepsis screen is negative. Does the patient have a suspected source of infection? No. Patient's initial sepsis screen is negative. 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 - Social history:: Smoking status: Patient uses tobacco products, smokes one pack cigarettes per day. - Ebola Screening: : No symptoms or risks identified at this time. Screenin:18 Abuse screen: Denies threats or abuse. Denies injuries from another. Nutritional rr5 screening: No deficits noted. Tuberculosis screening: No symptoms or risk factors identified. Fall Risk IV access (20 points). Total Chan Fall Scale indicates No Risk (0-24 pts). Assessment: 19:30 General: Appears in no apparent distress. comfortable, Behavior is calm, cooperative, rr5 appropriate for age, Reports fatigue for. 19:30 Pain: Complains of pain in right upper quadrant and left upper quadrant Pain does not rr5 radiate. Pain currently is 10 out of 10 on a pain scale. Quality of pain is described as aching, Pain began gradually, Is intermittent. Neuro: Level of Consciousness is awake, alert, obeys commands, Oriented to person, place, time, situation, Appropriate for age. Cardiovascular: Capillary refill < 3 seconds Patient's skin is warm and dry. Respiratory: Reports cough that is congestion Airway is patent Respiratory effort is even, unlabored, Respiratory pattern is regular, symmetrical. GI: Abdomen is round obese, Bowel sounds present X 4 quads. Abd is soft and non tender Reports upper abdominal pain, nausea, vomiting. : No signs and/or symptoms were reported regarding the genitourinary system. EENT: No signs and/or symptoms were reported regarding the EENT system. Derm: Skin is intact, Skin temperature is warm. Musculoskeletal: Circulation, motion, and sensation intact. Capillary refill < 3 seconds. 20:40 Reassessment: patient complaint still in pain.pain score 10/10. ED provider aware with rr5 order made and carried out. 21:20 Reassessment: pt given ice water for PO challenge with [facility] at the bedside. will ak1 reassess after pt drinks. 21:35 Reassessment: Patient appears in no apparent distress at this time. Patient is alert, rr5 oriented x 3, equal unlabored respirations, skin warm/dry/pink. discharge instruction given and explained without complaints made. Vital Signs: 19:25 BP 128 / 90; Pulse 81; Resp 18; Temp 98.4(O); Pulse Ox 100% on R/A; Weight 94 kg (M); lp1 Height 5 ft. 4 in. (162.56 cm); Pain 10/10; 20:30 BP 133 / 78; Pulse 75; Resp 17; Temp 98.4; Pulse Ox 100% ; Pain 10/10; rr5 21:30 BP 136 / 85; Pulse 79; Resp 17; Temp 98.3; Pulse Ox 99% on R/A; rr5 19:25 Body Mass Index 35.57 (94.00 kg, 162.56 cm) lp1 ED Course: 18:43 Patient arrived in ED. mr 18:43 Hermilo Patrickie is Private Physician. mr 19:14 Triage completed. lp1 19:14 Arm band placed on right wrist. lp1 19:25 hSawn Roberts PA is PHCP. cp 19:25 Shawn Pollard MD is Attending Physician. cp 19:33 Matthew Weller, ELÍAS is Primary Nurse. rr5 19:42 Attending Physician role handed off by Shawn Pollard MD cp 19:42 Chula Bowman MD is Attending Physician. cp 20:02 US Abdomen Limited: RUQ/epigastric pain In Process Unspecified. EDMS 20:15 Inserted saline lock: 20 gauge in right antecubital area, using aseptic technique. rr5 Blood collected. 20:20 Patient has correct armband on for positive identification. Bed in low position. Call rr5 light in reach. 21:15 XRAY Chest (1 view) In Process Unspecified. EDMS 21:21 Edilberto Garcias MD is Referral Physician. cp 21:36 No provider procedures requiring assistance completed. IV discontinued, intact, rr5 bleeding controlled, No redness/swelling at site. Pressure dressing applied. Administered Medications: 20:15 Drug: Zofran 4 mg Route: IVP; Site: right antecubital; rr5 21:05 Follow up: Response: No adverse reaction rr5 20:17 Drug: Pepcid 20 mg Route: IVP; Site: right antecubital; rr5 21:06 Follow up: Response: No adverse reaction rr5 20:55 Drug: GI Cocktail without - (Maalox Suspension 30 ml, Lidocaine Liquid 2 % 15 rr5 ml) Route: PO; 21:20 Follow up: Response: No adverse reaction ak1 Outcome: 21:22 Discharge ordered by . cp 21:36 Discharged to home ambulatory, with family. rr5 21:36 Condition: stable 21:36 Discharge instructions given to patient, Instructed on discharge instructions, follow up and referral plans. medication usage, Demonstrated understanding of instructions, follow-up care, medications, Prescriptions given X 3. 21:37 Patient left the ED. rr5 Signatures: Dispatcher [employer] EDMS Seema Thomas mr RyanTamie, RN RN lp1 Stephenie Diez RN RN ak1 Shawn Roberts PA PA cp Roque, Raymond RN RN rr5 Corrections: (The following items were deleted from the chart) 19:16 19:15 LMP 02/14/2019 lp1 lp1
--- NOTE | 2019-03-28 21:23 | EDPHYS ---
Physician Documentation [facility] Name: Deborah Torres Age: 23 yrs Sex: Female : 1995 Arrival Date: 03/28/2019 Time: 18:43 Bed 8 Private MD: Pat Patrick ED Physician Chula Bowman HPI: 03/28 19:45 This 23 yrs old Female presents to ER via Ambulatory with complaints of cp Abdominal Pain, Congestion. 19:45 The patient presents with abdominal pain in the upper abdomen. cp 19:45 Onset: The symptoms/episode began/occurred 3 month(s) ago. cp 19:45 The symptoms do not radiate. Associated signs and symptoms: Pertinent positives: cough cp for past 3 days, Pertinent negatives: chest pain, constipation, diarrhea, dysuria, fever, hematuria, vomiting. 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 - Social history:: Smoking status: Patient uses tobacco products, smokes one pack cigarettes per day. - Ebola Screening: : No symptoms or risks identified at this time. ROS: 20:00 Constitutional: Negative for body aches, chills, fever, poor PO intake. cp 20:00 Eyes: Negative for injury, pain, redness, and discharge. cp Exam: 20:10 Constitutional: The patient appears in no acute distress, alert, awake, non-toxic, well cp developed, well nourished. 20:10 Head/Face: Normocephalic, atraumatic. cp 20:10 Eyes: Periorbital structures: appear normal, Conjunctiva: normal, no exudate, no injection, Sclera: no appreciated abnormality, Lids and lashes: appear normal, bilaterally. 20:10 ENT: External ear(s): are unremarkable, Nose: is normal, Mouth: is normal, Posterior pharynx: is normal, airway is patent, no erythema, no exudate. 20:10 Chest/axilla: Inspection: normal, Palpation: is normal, no crepitus, no tenderness. 20:10 Cardiovascular: Rate: normal, Rhythm: regular. 20:10 Respiratory: the patient does not display signs of respiratory distress, Respirations: normal, no use of accessory muscles, no retractions, no splinting, no tachypnea, labored breathing, is not present, intercostal retractions, are absent, shallow respirations, are not present, tachypnea, is not appreciated, Breath sounds: are clear throughout, no decreased breath sounds, no stridor, no wheezing. 20:10 Abdomen/GI: Inspection: abdomen appears normal, Bowel sounds: active, all quadrants, Palpation: soft, in all quadrants, mild abdominal tenderness, in the right upper quadrant and left upper quadrant, rebound tenderness, is not appreciated, involuntary guarding, is not appreciated. 20:10 Back: pain, is absent, ROM is normal. Vital Signs: 19:25 BP 128 / 90; Pulse 81; Resp 18; Temp 98.4(O); Pulse Ox 100% on R/A; Weight 94 kg (M); lp1 Height 5 ft. 4 in. (162.56 cm); Pain 10/10; 20:30 BP 133 / 78; Pulse 75; Resp 17; Temp 98.4; Pulse Ox 100% ; Pain 10/10; rr5 21:30 BP 136 / 85; Pulse 79; Resp 17; Temp 98.3; Pulse Ox 99% on R/A; rr5 19:25 Body Mass Index 35.57 (94.00 kg, 162.56 cm) lp1 MDM: 19:29 Patient medically screened. emilie 20:00 Differential diagnosis: cholecystitis, Cholelithiasis, gastritis, non-specific abd cp pain, pancreatitis, Peptic Ulcer Disease, Perf. Duodenal Ulcer, Perf. Gastric Ulcer. 21:20 Data reviewed: vital signs, nurses notes, lab test result(s), radiologic studies, cp ultrasound. 21:20 Counseling: I had a detailed discussion with the patient and/or guardian regarding: the cp historical points, exam findings, and any diagnostic results supporting the discharge/admit diagnosis, lab results, radiology results, the need for outpatient follow up, a health policy nurse, to return to the emergency department if symptoms worsen or persist or if there are any questions or concerns that arise at home. Response to treatment: the patient's symptoms have mildly improved after treatment, and as a result, I will discharge patient. Special discussion: Based on the patient's Hx, exam, and Dx evaluation, there is no indication for emergent surgery or inpatient Tx. It is understood by the patient/guardian that if the Sx's persist or worsen they need to return immediately for re-evaluation. 03/28 19:37 Order name: Basic Metabolic Panel; Complete Time: 21:16 03/28 21:16 Interpretation: Normal except: GFR 80. 03/28 19:37 Order name: CBC with Diff; Complete Time: 21:16 03/28 21:16 Interpretation: Normal except: RBC 5.73; MCV 71.3; MCH 22.6; MCHC 31.7; RDW 18.2. 03/28 19:37 Order name: Creatinine for Radiology; Complete Time: 21:16 03/28 19:37 Order name: Hepatic Function; Complete Time: 21:16 03/28 21:17 Interpretation: Normal except: AST 66; ALT 91; GLOB 4.3; A/G 0.9. 03/28 19:37 Order name: Lipase; Complete Time: 21:16 03/28 21:06 Order name: Urine Dipstick--Ancillary (enter results); Complete Time: 21:16 [facility] 03/28 19:37 Order name: IV Saline Lock; Complete Time: 20:19 03/28 19:37 Order name: Labs collected and sent; Complete Time: 20:19 03/28 19:37 Order name: US Abdomen Limited: RUQ/epigastric pain; Complete Time: 21:16 03/28 21:17 Interpretation: Report reviewed. 03/28 20:32 Order name: XRAY Chest (1 view) 03/28 21:06 Order name: Urine --Ancillary (enter results); Complete Time: 21:16 [facility] 03/28 19:37 Order name: Urine Dipstick-Ancillary (obtain specimen); Complete Time: 20:19 03/28 19:37 Order name: Urine Test (obtain specimen); Complete Time: 20:19 cp 03/28 19:37 Order name: NPO; Complete Time: 19:38 cp 03/28 21:17 Order name: PO challenge; Complete Time: 21:20 cp Administered Medications: 20:15 Drug: Zofran 4 mg Route: IVP; Site: right antecubital; rr5 21:05 Follow up: Response: No adverse reaction rr5 20:17 Drug: Pepcid 20 mg Route: IVP; Site: right antecubital; rr5 21:06 Follow up: Response: No adverse reaction rr5 20:55 Drug: GI Cocktail without - (Maalox Suspension 30 ml, Lidocaine Liquid 2 % 15 rr5 ml) Route: PO; 21:20 Follow up: Response: No adverse reaction ak1 Disposition: 03/28/19 21:22 Discharged to Home. Impression: Upper abdominal pain, unspecified, Cough. - Condition is Stable. - Discharge Instructions: Abdominal Pain, Adult, Cough, Adult. - Prescriptions for Bentyl 20 mg Oral Tablet - take 1 tablet by ORAL route every 6 hours As needed; 30 tablet. Protonix 40 mg Oral Tablet - take 1 tablet by ORAL route once daily; 30 tablet. Zofran 4 mg Oral Tablet - take 1 tablet by ORAL route every 12 hours As needed; 20 tablet. - Medication Reconciliation Form, Thank You Letter, Antibiotic Education, Prescription Opioid Use form. - Follow up: Edilberto Garcias MD; When: 2 - 3 days; Reason: upper abdomen pain. - Problem is an ongoing problem. - Symptoms have improved. Addendum: 03/30/2019 07:30 Co-signature as Attending Physician, Chula Bowman MD. m a2 Signatures: Dispatcher [employer] Shawn Galarza MD MD cha Pena, Laura RN RN lp1 Shawn Roberts PA PA Chula Sanchez MD MD ma2 Matthew Weller RN RN rr5 Stephenie Diez RN ak1 Corrections: (The following items were deleted from the chart) 03/28 21:37 21:22 03/28/2019 21:22 Discharged to Home. Impression: Upper abdominal pain, rr5 unspecified; Cough. Condition is Stable. Forms are Medication Reconciliation Form, Thank You Letter, Antibiotic Education, Prescription Opioid Use. Follow up: Edilberto Garcias; When: 2 - 3 days; Reason: upper abdomen pain. Problem is an ongoing problem. Symptoms have improved. cp
[2019-03-28 22:09] VITALS: BP 136/85; TEMP 98.3; O2SAT 99
--- NOTE | 2019-03-29 07:20 | RAD REPORT ---
EXAM DESCRIPTION: RAD - Chest Single View - 03/28/2019 9:14 pm CLINICAL HISTORY: Upper abdominal pain, cough and congestion, asthma history COMPARISON: October 2017 TECHNIQUE: AP portable chest image was obtained 2046 hours . FINDINGS: Lung volumes are low. No focal lung parenchymal process. Interstitial pattern matches comp arison. Heart and vasculature are normal. No measurable pleural effusion and no pneumothorax. No acut e bony abnormality seen. No acute aortic findings suspected. IMPRESSION: No acute cardiopulmonary process. No significant interval change.
== END 2019-03-28 21:37 | disposition home or self-care (01) ==
LOC: ER 18:36
DX: R05 Cough (principal); I10 Essential (primary) hypertension; J45.909 Unspecified asthma, uncomplicated; F17.210 Nicotine dependence, cigarettes, uncomplicated; Z88.5 Allergy status to narcotic agent; Z88.8 Allergy status to other drugs, medicaments and biological substances; Z91.048 Other nonmedicinal substance allergy status
CPT/HCPCS: 85025; 80048; 36415; 81025; 80076; 81003; 83690; 71045; 76705; J2405; 96374; 96375; 99284

== ENCOUNTER 2019-05-22 17:37 | Emergency (ER) | payer OTHER ==
[2019-05-22] MEDS ORDERED: KETOROLAC 30 MG/ML INJ ONE (18:19)
[2019-05-22] MEDS ORDERED: ONDANSETRON 4 MG/2 ML VIAL ONE ×2 (18:20→20:08)
[2019-05-22] MEDS ORDERED: NA CHLORIDE 0.9% 1,000 ML ONE (18:20)
[2019-05-22 18:39] LABS: Urine Blood TRACE (NEG); Urine Glucose NEGATIVE (NEG); Urine Protein 1+ (NEG)
[2019-05-22 18:43] LABS: Absolute Lymphocytes (CBC) 2.1 K/uL (0.7-4.9); Basophils % 0.3 % (0-1.3); Hematocrit 38.2 % (36.0-45.0); MPV 9.7 fL (7.6-11.3); RBC Red Blood Cell Count 5.28 M/uL (3.86-4.86)
[2019-05-22 18:55] LABS: BUN Blood Urea Nitrogen 10 mg/dL (7-18); Bicarbonate 27 mmol/L (21-32); Glucose Level 101 mg/dL (74-106); Potassium 3.9 mmol/L (3.5-5.1); Sodium Level 140 mmol/L (136-145)
--- NOTE | 2019-05-22 19:47 | RAD REPORT ---
EXAM DESCRIPTION: CT - Abdomen Pelvis W Contrast - 05/22/2019 7:35 pm CLINICAL HISTORY: Abdominal pain COMPARISON: 2018 TECHNIQUE: Computed axial tomography of the abdomen pelvis was obtained. 100 cc Isovue-300 was admin istered intravenously. Oral contrast was not requested which limits evaluation of bowel. All CT scans are performed using dose optimization technique as appropriate and may include automated exposure control or mA/KV adjustment according to patient size. FINDINGS: Liver has a diminished attenuation consistent with fatty infiltration. Liver is borderline enlarged. Spleen is borderline enlarged Pancreas, adrenal and kidneys appear unremarkable. There is no evidence of diverticulitis. Normal appendix IMPRESSION: Fatty infiltration liver Borderline hepatic and splenic enlargement
--- NOTE | 2019-05-22 19:58 | ER ---
Nurse's Notes [facility] Name: Deborah Torres Age: 24 yrs Sex: Female : 1995 Arrival Date: 05/22/2019 Time: 17:39 Bed 19 Private MD: Diagnosis: Abdominal and pelvic pain Presentation: 05/22 17:44 Presenting complaint: Cough, sinus congestion, and chills x 3 weeks, sore throat, lower hb abdominal pain, and pain all over x 3 days. Transition of care: patient was not received from another setting of care. Onset of symptoms was May 07, 2019. Risk Assessment: Do you want to hurt yourself or someone else? Patient reports no desire to harm self or others. Initial Sepsis Screen: Does the patient meet any 2 criteria? No. Patient's initial sepsis screen is negative. Does the patient have a suspected source of infection? No. Patient's initial sepsis screen is negative. Care prior to arrival: None. 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 - Social history:: Smoking status: Patient/guardian denies using tobacco. - Ebola Screening: : No symptoms or risks identified at this time. Screenin:04 Abuse screen: Denies threats or abuse. Nutritional screening: No deficits noted. em Tuberculosis screening: No symptoms or risk factors identified. Fall Risk None identified. Assessment: 18:20 General: Appears in no apparent distress. comfortable, Behavior is calm, cooperative, em Reports fever for off and on for 3 weeks. Pain: Complains of pain in left lower quadrant and right lower quadrant Pain currently is 10 out of 10 on a pain scale. Quality of pain is described as crampy, Pain began 3 weeks ago. Neuro: Level of Consciousness is awake, alert, obeys commands, Oriented to person, place, time, situation, Appropriate for age. Cardiovascular: Capillary refill < 3 seconds Patient's skin is warm and dry. Respiratory: Reports cough that is productive, Airway is patent Respiratory effort is even, unlabored, Respiratory pattern is regular, symmetrical, Breath sounds are clear bilaterally. GI: Abdomen is round non-distended, Bowel sounds present X 4 quads. Abd is soft X 4 quads Abdomen is tender to palpation in right lower quadrant and left lower quadrant Reports diarrhea, nausea, vomiting. : Denies burning with urination, discharge, vaginal bleeding. EENT: Nares are clear Oral mucosa is moist. Throat is clear is pink. Derm: Skin is intact, is healthy with good turgor, Skin is pink, warm \T\ dry. Musculoskeletal: Capillary refill < 3 seconds, Range of motion: intact in all extremities. 18:53 Reassessment: Patient appears in no apparent distress at this time. Patient and/or em family updated on plan of care and expected duration. Pain level reassessed. Patient is alert, oriented x 3, equal unlabored respirations, skin warm/dry/pink. reports pain 10/10. 19:47 Reassessment: Patient appears in no apparent distress at this time. Patient and/or ak1 family updated on plan of care and expected duration. Pain level reassessed. Patient is alert, oriented x 3, equal unlabored respirations, skin warm/dry/pink. Vital Signs: 17:46 BP 154 / 94; Pulse 87; Resp 16; Temp 97.9; Pulse Ox 100% on R/A; Weight 99.79 kg; hb Height 5 ft. 4 in. (162.56 cm); Pain 10/10; 18:53 BP 111 / 71; Pulse 73; Resp 18; Pulse Ox 99% on R/A; Pain 10/10; em 19:56 BP 123 / 62 LA Supine (auto/); Pulse 72 MON; Resp 16; Temp 98.6(O); Pulse Ox 100% on ds4 R/A; Pain 8/10; 17:46 Body Mass Index 37.76 (99.79 kg, 162.56 cm) hb ED Course: 17:39 Patient arrived in ED. as 17:45 Triage completed. hb 17:46 Arm band placed on. hb 17:51 Thanh Connolly LVN is Primary Nurse. em 18:01 Uziel Nobles PA is PHCP. jr8 18:01 Graham Nicholson MD is Attending Physician. jr8 18:04 Patient has correct armband on for positive identification. Placed in gown. Bed in low em position. Call light in reach. Adult w/ patient. Pulse ox on. NIBP on. 18:27 Urine collected: clean catch specimen, clear. mh5 19:32 CT completed. Patient tolerated procedure well. Patient moved back from CT. bq 19:35 CT Abd/Pelvis - IV Contrast Only In Process Unspecified. EDMS 20:15 No provider procedures requiring assistance completed. IV discontinued, intact, ak1 bleeding controlled, No redness/swelling at site. Pressure dressing applied. Administered Medications: 18:30 Drug: NS 0.9% 1000 ml Route: IV; Rate: 1000 ml; Site: right forearm; ss 19:59 Follow up: IV Status: Completed infusion; IV Intake: 1000ml ak1 18:32 Drug: Zofran 4 mg Route: IVP; Site: right forearm; ss 18:53 Follow up: Response: No adverse reaction; Nausea is decreased em 18:32 Drug: TORadol - Ketorolac 15 mg Route: IVP; Site: right forearm; ss 18:53 Follow up: Response: No adverse reaction; Pain is unchanged, physician notified em 20:05 Not Given (Patient Refused; pt stated she is allergic to phenergen): Phenergan 12.5 mg ak1 IVP once 20:13 Drug: Bentyl 20 mg Route: PO; ak1 20:14 Follow up: Response: No adverse reaction ak1 20:14 Drug: Zofran 4 mg Route: IVP; Site: right forearm; ak1 20:14 Follow up: Response: No adverse reaction ak1 Intake: 19:59 IV: 1000ml; Total: 1000ml. ak1 Outcome: 19:58 Discharge ordered by MD. davis 20:14 Discharged to home ambulatory. ak1 20:14 Condition: good 20:14 Discharge instructions given to patient, Instructed on discharge instructions, follow up and referral plans. no drinking with medication, no driving heavy equipment, medication usage, Demonstrated understanding of instructions, follow-up care, medications, Prescriptions given X 2. 20:19 Patient left the ED. ak1 Signatures: Dispatcher [employer] EDMS Anna Marie Gardiner bq Thanh Connolly, MARINE EQUIPMENT PRESERVATION INSPECTOR MARINE EQUIPMENT PRESERVATION INSPECTOR Radha Levi Shelby, RN RN Uziel Nobles PA PA jr8 Swanson, Donovan ds4 Krenek, Amber RN RN ak1 Zonia Venegas RN RN Rylee Bourne [facility] Corrections: (The following items were deleted from the chart) 17:44 Presenting complaint: Cough, sinus congestion, and chills x 3 weeks, sore throat, hb lower abdominal pain, and pain all over x 3 days. hb 17:44 Acuity: NORM 4 hb hb
--- NOTE | 2019-05-22 19:58 | EDPHYS ---
Physician Documentation [facility] Name: Deborah Torres Age: 24 yrs Sex: Female : 1995 Arrival Date: 05/22/2019 Time: 17:39 Bed 19 Private MD: ED Physician Graham Nicholson HPI: 05/22 18:17 This 24 yrs old Female presents to ER via Ambulatory with complaints of jr8 Congestion, Sore Throat, Pain All Over. 18:17 The patient presents with abdominal pain in the lower abdomen. Onset: The jr8 symptoms/episode began/occurred 3 day(s) ago. The symptoms do not radiate. Associated signs and symptoms: Pertinent positives: nausea, vomiting, and diarrhea. The symptoms are described as sharp. Pt reports she has had congestion for three weeks, abd pain for the last three days, and an episode of syncope this morning after using the restroom. 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 - Social history:: Smoking status: Patient/guardian denies using tobacco. - Ebola Screening: : No symptoms or risks identified at this time. ROS: 18:20 Constitutional: Negative for fever, chills, and weight loss, Eyes: Negative for injury, jr8 pain, redness, and discharge, Neck: Negative for injury, pain, and swelling, Cardiovascular: Negative for chest pain, palpitations, and edema, Respiratory: Negative for shortness of breath, cough, wheezing, and pleuritic chest pain, Back: Negative for injury and pain, MS/Extremity: Negative for injury and deformity, Neuro: Negative for headache, weakness, numbness, tingling, and seizure. 18:20 ENT: Positive for sore throat. 18:20 Abdomen/GI: Positive for abdominal pain, nausea, vomiting, and diarrhea, abdominal cramps. Exam: 18:21 Constitutional: This is a well developed, well nourished patient who is awake, alert, jr8 and in no acute distress. Head/Face: Normocephalic, atraumatic. Eyes: Pupils equal round and reactive to light, extra-ocular motions intact. Lids and lashes normal. Conjunctiva and sclera are non-icteric and not injected. Cornea within normal limits. Periorbital areas with no swelling, redness, or edema. ENT: Nares patent. No nasal discharge, no septal abnormalities noted. Tympanic membranes are normal and external auditory canals are clear. Oropharynx with no redness, swelling, or masses, exudates, or evidence of obstruction, uvula midline. Mucous membranes moist. Neck: Trachea midline, no thyromegaly or masses palpated, and no cervical lymphadenopathy. Supple, full range of motion without nuchal rigidity, or vertebral point tenderness. No Meningismus. Chest/axilla: Normal chest wall appearance and motion. Nontender with no deformity. No lesions are appreciated. Cardiovascular: Regular rate and rhythm with a normal S1 and S2. No gallops, murmurs, or rubs. Normal PMI, no JVD. No pulse deficits. Respiratory: Lungs have equal breath sounds bilaterally, clear to auscultation and percussion. No rales, rhonchi or wheezes noted. No increased work of breathing, no retractions or nasal flaring. Back: No spinal tenderness. No costovertebral tenderness. Full range of motion. MS/ Extremity: Pulses equal, no cyanosis. Neurovascular intact. Full, normal range of motion. 18:21 Abdomen/GI: Inspection: abdomen appears normal, obese Bowel sounds: normal, in all quadrants, Palpation: soft, in all quadrants, moderate abdominal tenderness, in the right lower quadrant and left lower quadrant, Indicators: McBurney's point is not tender, Anderson's sign is negative, Rovsing's sign is negative, Obturator sign is negative, Psoas sign is negative. Vital Signs: 17:46 BP 154 / 94; Pulse 87; Resp 16; Temp 97.9; Pulse Ox 100% on R/A; Weight 99.79 kg; hb Height 5 ft. 4 in. (162.56 cm); Pain 10/10; 18:53 BP 111 / 71; Pulse 73; Resp 18; Pulse Ox 99% on R/A; Pain 10/10; em 19:56 BP 123 / 62 LA Supine (auto/); Pulse 72 MON; Resp 16; Temp 98.6(O); Pulse Ox 100% on ds4 R/A; Pain 8/10; 17:46 Body Mass Index 37.76 (99.79 kg, 162.56 cm) hb MDM: 18:02 Patient medically screened. jr8 19:56 Data reviewed: vital signs, nurses notes, lab test result(s), radiologic studies, and jr8 as a result, I will discharge patient. Data interpreted: Pulse oximetry: on room air is 99 %. Interpretation: normal. Counseling: I had a detailed discussion with the patient and/or guardian regarding: the historical points, exam findings, and any diagnostic results supporting the discharge/admit diagnosis, lab results, radiology results, the need for outpatient follow up, a family practitioner. ED course: Pt tolerating PO, no fevers, no localized abd pain. Return precautions given. 05/22 18:16 Order name: CBC with Diff; Complete Time: 18:49 jr8 05/22 18:16 Order name: BMP; Complete Time: 18:56 jr8 05/22 18:28 Order name: Urine Dipstick--Ancillary (enter results); Complete Time: 18:49 bd 05/22 18:28 Order name: Urine --Ancillary (enter results); Complete Time: 18:49 bd 05/22 19:15 Order name: CT Abd/Pelvis - IV Contrast Only; Complete Time: 19:56 jr8 05/22 18:16 Order name: SL; Complete Time: 18:17 jr8 05/22 18:16 Order name: Urine Dipstick-Ancillary (obtain specimen); Complete Time: 18:17 jr8 05/22 18:16 Order name: Urine Test (obtain specimen); Complete Time: 18:17 jr8 Administered Medications: 18:30 Drug: NS 0.9% 1000 ml Route: IV; Rate: 1000 ml; Site: right forearm; ss 19:59 Follow up: IV Status: Completed infusion; IV Intake: 1000ml ak1 18:32 Drug: Zofran 4 mg Route: IVP; Site: right forearm; ss 18:53 Follow up: Response: No adverse reaction; Nausea is decreased em 18:32 Drug: TORadol - Ketorolac 15 mg Route: IVP; Site: right forearm; ss 18:53 Follow up: Response: No adverse reaction; Pain is unchanged, physician notified em 20:05 Not Given (Patient Refused; pt stated she is allergic to phenergen): Phenergan 12.5 mg ak1 IVP once 20:13 Drug: Bentyl 20 mg Route: PO; ak1 20:14 Follow up: Response: No adverse reaction ak1 20:14 Drug: Zofran 4 mg Route: IVP; Site: right forearm; ak1 20:14 Follow up: Response: No adverse reaction ak1 Disposition: 05/22/19 19:58 Discharged to Home. Impression: Abdominal and pelvic pain. - Condition is Stable. - Discharge Instructions: Abdominal Pain, Adult, Gastritis, Adult. - Prescriptions for Bentyl 20 mg Oral Tablet - take 1 tablet by ORAL route every 6 hours As needed; 20 tablet. Zofran 4 mg Oral Tablet - take 1 tablet by ORAL route every 12 hours As needed; 20 tablet. - Work release form, Medication Reconciliation Form, Thank You Letter form. - Follow up: Private Physician; When: 2 - 3 days; Reason: Recheck today's complaints, Re-evaluation by your physician. Follow up: Emergency Department; When: As needed; Reason: Worsening of condition. - Problem is new. - Symptoms have improved. Signatures: Dispatcher [employer] EDDeloris Zamudio RN RN Uziel Ramirez PA PA jr8 Stephenie Diez RN RN ak1 Zonia Venegas RN RN Thanh Connolly IRRIGATION SYSTEM INSTALLER Corrections: (The following items were deleted from the chart) 19:58 05/22/2019 19:58 Discharged to Home. Impression: Abdominal and pelvic pain. ak1 Condition is Stable. Forms are Medication Reconciliation Form, Thank You Letter, Antibiotic Education, Prescription Opioid Use. Follow up: Private Physician; When: 2 - 3 days; Reason: Recheck today's complaints, Re-evaluation by your physician. Follow up: Emergency Department; When: As needed; Reason: Worsening of condition. Problem is new. Symptoms have improved. jr8
[2019-05-22] MEDS ORDERED: DICYCLOMINE HCL 10 MG CAP ONE (20:08)
[2019-05-22 20:34] VITALS: BP 123/62; TEMP 98.6; O2SAT 100
== END 2019-05-22 20:19 | disposition home or self-care (01) ==
LOC: ER 17:37
DX: R10.2 Pelvic and perineal pain (principal); Z88.5 Allergy status to narcotic agent; Z88.8 Allergy status to other drugs, medicaments and biological substances; Z91.048 Other nonmedicinal substance allergy status
CPT/HCPCS: 96361; 85025; 80048; 36415; 81025; 81003; 74177; 96375; 96374; 99284; Q9967; J7030; J2405 ×2

== ENCOUNTER 2019-08-10 20:06 | Emergency (ER) | payer OTHER ==
--- OUTSIDE RECORDS SUMMARY | 2019-08-10 20:09 | XMS REPORT ---
:1995 [facility] Address [address] [place] [address] Dr. Cartwright [address] [place] [id number] Care Team Providers Name Role Phone Unavailable Unavailable Unavailable Problems This patient has no known problems. Allergies, Adverse Reactions, Alerts This patient has no known allergies or adverse reactions. Medications This patient has no known medications.
[2019-08-10] MEDS ORDERED: ALBUTEROL 2.5 MG/3 ML NEB SOL ONE (20:25)
[2019-08-10] MEDS ORDERED: IPRATROPIUM BROM 0.5MG/2.5ML ONE (20:25)
[2019-08-10] MEDS ORDERED: IBUPROFEN 400 MG TAB ONE (20:58)
--- NOTE | 2019-08-10 21:43 | ER ---
Nurse's Notes [facility] Name: Deborah Torres Age: 24 yrs Sex: Female : 1995 Arrival Date: 08/10/2019 Time: 20:09 Bed 20 Private MD: Diagnosis: Bronchitis, not specified as acute or chronic Presentation: 08/10 20:33 Presenting complaint: Patient states: "I am having a hard time breathing and my chest jd3 hurts because I am so congested.". Transition of care: patient was not received from another setting of care. Onset of symptoms was August 10, 2019. Risk Assessment: Do you want to hurt yourself or someone else? Patient reports no desire to harm self or others. Initial Sepsis Screen: Does the patient meet any 2 criteria? No. Patient's initial sepsis screen is negative. Does the patient have a suspected source of infection? No. Patient's initial sepsis screen is negative. Care prior to arrival: None. 20:33 Method Of Arrival: Ambulatory j 20:33 Acuity: NORM 3 jd3 Triage Assessment: 20:38 Respiratory: Onset: The symptoms/episode began/occurred at an unknown time. the patient jd3 has mild shortness of breath. 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 - Social history:: Smoking status: Patient uses tobacco products, denies chronic smoking, but will smoke occasionally. - Ebola Screening: : Patient negative for fever greater than or equal to 101.5 degrees Fahrenheit, and additional compatible Ebola Virus Disease symptoms. Screenin:39 Abuse screen: Denies threats or abuse. Nutritional screening: No deficits noted. jd3 Tuberculosis screening: No symptoms or risk factors identified. Fall Risk Ambulatory Aid- None/Bed Rest/Nurse Assist (0 pts). Gait- Normal/Bed Rest/Wheelchair (0 pts) Mental Status- Oriented to own ability (0 pts). Total Chan Fall Scale indicates No Risk (0-24 pts). Assessment: 20:37 General: Appears in no apparent distress. uncomfortable, Behavior is calm, cooperative, jd3 appropriate for age. Pain: Complains of pain in chest Quality of pain is described as aching, pressure. Neuro: Level of Consciousness is awake, alert, obeys commands, Oriented to person, place, time, situation. Cardiovascular: Capillary refill < 3 seconds Patient's skin is warm and dry. Respiratory: Reports shortness of breath at rest cough that is persistent Airway is patent Respiratory effort is even, unlabored, Respiratory pattern is regular, symmetrical. GI: Abdomen is round non-distended, Abd is soft and non tender Reports vomiting, Patient currently denies abdominal pain. : No signs and/or symptoms were reported regarding the genitourinary system. EENT: No signs and/or symptoms were reported regarding the EENT system. Derm: Skin is intact, Skin is dry, Skin is normal, Skin temperature is warm. Musculoskeletal: Circulation, motion, and sensation intact. Range of motion: intact in all extremities. 21:22 Reassessment: Patient appears in no apparent distress at this time. Patient and/or jd3 family updated on plan of care and expected duration. Pain level reassessed. Patient is alert, oriented x 3, equal unlabored respirations, skin warm/dry/pink. Patient states feeling better. Vital Signs: 20:36 BP 116 / 45; Pulse 100; Resp 22 S; Temp 98.1(O); Pulse Ox 99% on R/A; Weight 95.25 kg jd3 (R); Height 5 ft. 4 in. (162.56 cm) (R); Pain 10/10; 21:23 BP 118 / 57; Pulse 105; Resp 19 S; Pulse Ox 98% on R/A; jd3 20:36 Body Mass Index 36.05 (95.25 kg, 162.56 cm) d3 ED Course: 20:09 Patient arrived in ED. cf2 20:10 Tea Hooper FNP-C is [facility]. jd3 20:10 Luke Hi MD is Attending Physician. jd3 20:21 Emile Malagon, RN is Primary Nurse. jd3 20:34 Triage completed. jd3 20:37 Arm band placed on. jd3 20:38 Patient has correct armband on for positive identification. Bed in low position. Call jd3 light in reach. Side rails up X 1. 20:40 Strep Sent. jd3 20:40 Flu Sent. jd3 21:48 No provider procedures requiring assistance completed. Patient did not have IV access jd3 during this emergency room visit. Administered Medications: 20:39 Drug: DuoNeb (3:1) (2.5 mg - 0.5 mg) 3 ml Route: Nebulizer; jd3 21:49 Follow up: Response: No adverse reaction jd3 20:57 Drug: Ibuprofen 800 mg Route: PO; jd3 21:49 Follow up: Response: No adverse reaction jd3 Outcome: 21:42 Discharge ordered by . kb 21:48 Discharged to home ambulatory. jd3 21:48 Condition: stable 21:48 Discharge instructions given to patient, Instructed on discharge instructions, follow up and referral plans. medication usage, Demonstrated understanding of instructions, follow-up care, medications, Prescriptions given X 3. 21:49 Patient left the ED. jd3 Signatures: Tea Hooper FNP-C FNP-Emile Renee, RN RN jd3 Adams, Candido cf2
--- NOTE | 2019-08-10 21:43 | EDPHYS ---
Physician Documentation [facility] Name: Deborah Torres Age: 24 yrs Sex: Female : 1995 Arrival Date: 08/10/2019 Time: 20:09 Bed 20 Private MD: ED Physician Luke Hi HPI: 08/10 20:25 This 24 yrs old Female presents to ER via Unassigned with complaints of kb Breathing Difficulty, Chest Pain, Cough. 20:25 The patient or guardian reports cough, that is intermittent, described as moderate, kb with no sputum, difficulty breathing, flu symptoms, low-grade fever, myalgias. Onset: The symptoms/episode began/occurred 1 week(s) ago, and became worse 3 day(s) ago. Severity of symptoms: At their worst the symptoms were moderate, in the emergency department the symptoms are unchanged. Modifying factors: The symptoms are alleviated by nothing, the symptoms are aggravated by nothing. Associated signs and symptoms: Pertinent positives: fever, rhinorrhea, sore throat. The patient has experienced similar episodes in the past. The patient has not recently seen a physician. Pt reports cough for a week that got worse 3 days ago. Now reports congestion, chills, sore throat and shortness of breath as well. . 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 - Social history:: Smoking status: Patient uses tobacco products, denies chronic smoking, but will smoke occasionally. - Ebola Screening: : Patient negative for fever greater than or equal to 101.5 degrees Fahrenheit, and additional compatible Ebola Virus Disease symptoms. ROS: 20:23 Neck: Negative for injury, pain, and swelling, Cardiovascular: Negative for chest pain, kb palpitations, and edema, Abdomen/GI: Negative for abdominal pain, nausea, vomiting, diarrhea, and constipation, Back: Negative for injury and pain, MS/Extremity: Negative for injury and deformity, Skin: Negative for injury, rash, and discoloration, Neuro: Negative for headache, weakness, numbness, tingling, and seizure. 20:23 Constitutional: Positive for body aches, chills, fatigue, malaise. 20:23 ENT: Positive for rhinorrhea, sinus congestion, sore throat. 20:23 Respiratory: Positive for cough, shortness of breath. Exam: 20:24 Constitutional: This is a well developed, well nourished patient who is awake, alert, kb and in no acute distress. Head/Face: Normocephalic, atraumatic. Neck: Trachea midline, no thyromegaly or masses palpated, and no cervical lymphadenopathy. Supple, full range of motion without nuchal rigidity, or vertebral point tenderness. No Meningismus. Chest/axilla: Normal chest wall appearance and motion. Nontender with no deformity. No lesions are appreciated. Cardiovascular: Regular rate and rhythm with a normal S1 and S2. No gallops, murmurs, or rubs. Normal PMI, no JVD. No pulse deficits. Respiratory: Lungs have equal breath sounds bilaterally, clear to auscultation and percussion. No rales, rhonchi or wheezes noted. No increased work of breathing, no retractions or nasal flaring. Abdomen/GI: Soft, non-tender, with normal bowel sounds. No distension or tympany. No guarding or rebound. No evidence of tenderness throughout. Back: No spinal tenderness. No costovertebral tenderness. Full range of motion. Skin: Warm, dry with normal turgor. Normal color with no rashes, no lesions, and no evidence of cellulitis. MS/ Extremity: Pulses equal, no cyanosis. Neurovascular intact. Full, normal range of motion. Neuro: Awake and alert, GCS 15, oriented to person, place, time, and situation. Cranial nerves II-XII grossly intact. Motor strength 5/5 in all extremities. Sensory grossly intact. Cerebellar exam normal. Normal gait. 20:24 ENT: External ear(s): are unremarkable, Ear canal(s): are normal, TM's: are normal, kb Nose: nasal drainage, that is minimal, and is seen coming from both nares, that is clear, Mouth: is normal, Posterior pharynx: is normal. Vital Signs: 20:36 BP 116 / 45; Pulse 100; Resp 22 S; Temp 98.1(O); Pulse Ox 99% on R/A; Weight 95.25 kg jd3 (R); Height 5 ft. 4 in. (162.56 cm) (R); Pain 10/10; 21:23 BP 118 / 57; Pulse 105; Resp 19 S; Pulse Ox 98% on R/A; jd3 20:36 Body Mass Index 36.05 (95.25 kg, 162.56 cm) jd3 MDM: 20:13 Patient medically screened. kb 20:23 Data reviewed: vital signs, nurses notes. kb 20:59 Data interpreted: Pulse oximetry: on room air is 99 %. Interpretation: normal. kb 21:41 Counseling: I had a detailed discussion with the patient and/or guardian regarding: the kb historical points, exam findings, and any diagnostic results supporting the discharge/admit diagnosis, lab results, radiology results, the need for outpatient follow up, a family practitioner, to return to the emergency department if symptoms worsen or persist or if there are any questions or concerns that arise at home. 08/10 20:16 Order name: Flu; Complete Time: 21:40 kb 08/10 20:16 Order name: Strep; Complete Time: 21:40 kb 08/10 21:15 Order name: Throat Culture EDMS Administered Medications: 20:39 Drug: DuoNeb (3:1) (2.5 mg - 0.5 mg) 3 ml Route: Nebulizer; jd3 21:49 Follow up: Response: No adverse reaction jd3 20:57 Drug: Ibuprofen 800 mg Route: PO; jd3 21:49 Follow up: Response: No adverse reaction jd3 Disposition: 08/11 00:29 Co-signature as Attending Physician, Luke Hi MD. rn Disposition: 08/10/19 21:42 Discharged to Home. Impression: Bronchitis, not specified as acute or chronic. - Condition is Stable. - Discharge Instructions: Acute Bronchitis, [id number], Viral Respiratory Infection, [id number]. - Prescriptions for Prednisone 20 mg Oral Tablet - take 1 tablet by ORAL route once daily for 5 days; 5 tablet. Tessalon Perles 100 mg Oral Capsule - take 1 capsule by ORAL route every 8 hours As needed; 15 capsule. Albuterol Sulfate 90 mcg/actuation - inhale 1-2 puff by INHALATION route every 4-6 hours; 1 Inhaler. - Medication Reconciliation Form, Thank You Letter, Antibiotic Education, Prescription Opioid Use form. - Follow up: Emergency Department; When: As needed; Reason: Worsening of condition. Follow up: Private Physician; When: 2 - 3 days; Reason: Recheck today's complaints, Continuance of care, Re-evaluation by your physician. Signatures: Dispatcher [employer] EDMS Tea Hooper, NAM GRUBBS-Luke Campos MD MD rn Davies, Jonathon, RN RN jd3 Corrections: (The following items were deleted from the chart) 08/10 20:25 20:24 Constitutional: This is a well developed, well nourished patient who is awake, kb alert, and in no acute distress. Head/Face: Normocephalic, atraumatic. ENT: Nares patent. No nasal discharge, no septal abnormalities noted. Tympanic membranes are normal and external auditory canals are clear. Oropharynx with no redness, swelling, or masses, exudates, or evidence of obstruction, uvula midline. Mucous membranes moist. Neck: Trachea midline, no thyromegaly or masses palpated, and no cervical lymphadenopathy. Supple, full range of motion without nuchal rigidity, or vertebral point tenderness. No Meningismus. Chest/axilla: Normal chest wall appearance and motion. Nontender with no deformity. No lesions are appreciated. Cardiovascular: Regular rate and rhythm with a normal S1 and S2. No gallops, murmurs, or rubs. Normal PMI, no JVD. No pulse deficits. Respiratory: Lungs have equal breath sounds bilaterally, clear to auscultation and percussion. No rales, rhonchi or wheezes noted. No increased work of breathing, no retractions or nasal flaring. Abdomen/GI: Soft, non-tender, with normal bowel sounds. No distension or tympany. No guarding or rebound. No evidence of tenderness throughout. Back: No spinal tenderness. No costovertebral tenderness. Full range of motion. Skin: Warm, dry with normal turgor. Normal color with no rashes, no lesions, and no evidence of cellulitis. MS/ Extremity: Pulses equal, no cyanosis. Neurovascular intact. Full, normal range of motion. Neuro: Awake and alert, GCS 15, oriented to person, place, time, and situation. Cranial nerves II-XII grossly intact. Motor strength 5/5 in all extremities. Sensory grossly intact. Cerebellar exam normal. Normal gait. kb 20:59 20:58 ECG was reviewed by the Attending Physician. kb kb :59 :58 Rate is 66 beats/min. Rhythm is regular. QRS [place] is Normal. HI interval is kb normal at 134 msec. QRS interval is normal at 70 msec. QT interval is normal at 426 msec. kb 21:49 21:42 08/10/2019 21:42 Discharged to Home. Impression: Bronchitis, not specified as jd3 acute or chronic. Condition is Stable. Forms are Medication Reconciliation Form, Thank You Letter, Antibiotic Education, Prescription Opioid Use. Follow up: Emergency Department; When: As needed; Reason: Worsening of condition. Follow up: Private Physician; When: 2 - 3 days; Reason: Recheck today's complaints, Continuance of care, Re-evaluation by your physician. kb
[2019-08-10 22:07] VITALS: TEMP 98.1
[2019-08-10 22:09] VITALS: BP 118/57; O2SAT 98
== END 2019-08-10 21:49 | disposition home or self-care (01) ==
LOC: ER 20:06
DX: J40 Bronchitis, not specified as acute or chronic (principal); I10 Essential (primary) hypertension; F31.9 Bipolar disorder, unspecified; E07.9 Disorder of thyroid, unspecified; Z72.0 Tobacco use
CPT/HCPCS: 87070; 87081; 87804; 94640; 99284

== ENCOUNTER 2019-10-13 22:39 | Emergency (ER) | payer OTHER ==
[2019-10-14 00:38] LABS: Urine Blood NEGATIVE (NEG); Urine Glucose NEGATIVE (NEG); Urine Protein 1+ (NEG); Urine Specific Gravity >1.030 (1.005-1.030); Urine pH 5.5 (5.0-7.0)
[2019-10-14 00:59] LABS: Urine Bacteria 20-50 /HPF (<20); Urine Culture Reflex Order REFLEXED; Urine Mucus 1+ /HPF (NONE SEEN); Urine RBC <5 /HPF (NONE SEEN)
[2019-10-14] MEDS ORDERED: IBUPROFEN 400 MG TAB ONE (01:06)
[2019-10-14] MEDS ORDERED: CEFTRIAXONE 1000 MG/VIAL ONE (01:10)
[2019-10-14] MEDS ORDERED: LIDOCAINE 2% MPF 5 ML VIAL ONE (01:10)
--- NOTE | 2019-10-14 01:14 | ER ---
Nurse's Notes [facility] Name: Deborah Torres Age: 24 yrs Sex: Female : 1995 Arrival Date: 10/13/2019 Time: 22:45 Bed 14 Private MD: Diagnosis: Urinary tract infection, site not specified;Generalized abdominal pain Presentation: 10/12 23:26 Chief complaint: Patient states: RIGHT UPPER QUADRANT PAIN THAT COMES AND GOES OVER THE ls4 LAST MONTH. Coronavirus screen: The patient has NOT traveled to a country currently being monitored by the [facility] within the last 14 days. Ebola Screen: Patient negative for fever greater than or equal to 101.5 degrees Fahrenheit, and additional compatible Ebola Virus Disease symptoms. Initial Sepsis Screen: Does the patient meet any 2 criteria? No. Patient's initial sepsis screen is negative. Does the patient have a suspected source of infection? No. Patient's initial sepsis screen is negative. Risk Assessment: Do you want to hurt yourself or someone else? Patient reports no desire to harm self or others. 23:26 Method Of Arrival: Ambulatory ls4 23:26 Acuity: NORM 4 ls4 Triage Assessment: 23:30 General: Appears in no apparent distress. Behavior is calm, cooperative. Pain: ls4 Complains of pain in right upper quadrant Pain currently is 10 out of 10 on a pain scale. Noted to be AMBULATES EASILY, NO FACIAL GRIMACE. HANDS AND LEGS RELAXED. SITS AND LIFTS LEGS INTO BED WITH NO DIFFICULTY. Historical: - Allergies: 23:30 HYDROCODONE; ls4 23:30 promethazine HCl; ls4 23:30 Tape; ls4 - PMHx: 23:30 Anxiety; Asthma; Bipolar disorder; Depression; Hypertension; Migraines; Pre-eclampsia; ls4 premature births, 2 miscarrages; Thyroid problem; - Immunization history:: Adult Immunizations up to date, Flu vaccine is not up to date. Patient has never been vaccinated. . - Social history:: Smoking status: Patient denies any tobacco usage or history of. Screenin:35 Abuse screen: Denies threats or abuse. Denies injuries from another. Nutritional ls4 screening: No deficits noted. Tuberculosis screening: No symptoms or risk factors identified. Fall Risk None identified. Assessment: 23:40 General: Appears in no apparent distress. comfortable, Behavior is calm, cooperative, aa1 appropriate for age. Pain: Complains of pain in right upper quadrant Pain began 2 months ago Is intermittent. Neuro: Level of Consciousness is awake, alert, obeys commands, Oriented to person, place, time, situation, Moves all extremities. Full function Gait is steady, Speech is normal. Respiratory: Airway is patent Respiratory effort is even, unlabored, Respiratory pattern is regular, symmetrical. GI: Abdomen is non-distended, Bowel sounds present X 4 quads. Abd is soft X 4 quads Abdomen is tender to palpation in right upper quadrant Reports upper abdominal pain, nausea, vomiting. : Reports "her uterus hurts" Denies discharge, vaginal bleeding. EENT: No signs and/or symptoms were reported regarding the EENT system. Derm: Skin is intact, is healthy with good turgor, Skin is pink, warm \\T\\ dry. Musculoskeletal: Circulation, motion, and sensation intact. Capillary refill < 3 seconds. 10/13 01:49 Reassessment: Patient appears in no apparent distress at this time. Patient is alert, aa1 oriented x 3, equal unlabored respirations, skin warm/dry/pink. Discussed d/c \\T\\ f/u instructions with pt; denies questions or concerns at this time. Ambulatory to lobby with steady gait. Patient states feeling better. Vital Signs: 10/12 23:26 BP 130 / 81; Pulse 74; Resp 14; Temp 98.5; Pulse Ox 100% on R/A; Weight 88 kg; Height 5 ls4 ft. 2 in. (157.48 cm); Pain 10/10; 23:33 BP 130 / 81; Pulse 74; Resp 14; Temp 98.4; Pulse Ox 99% ; Pain 10/10; ls4 23:26 Body Mass Index 35.48 (88.00 kg, 157.48 cm) ls4 ED Course: 22:45 Patient arrived in ED. jg7 22:59 Princess Hoover FNP-C is [facility]. snw 22:59 Shawn Pollard MD is Attending Physician. snw 23:26 Kacey Lawrence, ELÍAS is Primary Nurse. ls4 23:29 Triage completed. ls4 23:35 Patient has correct armband on for positive identification. Bed in low position. Call ls4 light in reach. Side rails up X 1. 10/13 00:52 Myriam Garcia, RN is Primary Nurse. aa1 01:49 No provider procedures requiring assistance completed. Patient did not have IV access aa1 during this emergency room visit. Administered Medications: 01:10 Drug: Rocephin (cefTRIAXone) 1 grams Route: IM; Site: right gluteus; aa1 01:48 Follow up: Response: No adverse reaction aa1 01:10 Drug: Motrin 800 mg Route: PO; aa1 01:48 Follow up: Response: No adverse reaction; Pain is decreased aa1 Outcome: :13 Discharge ordered by . blanca 01:49 Discharged to home ambulatory, with family. aa1 01:49 Condition: good 01:49 Discharge instructions given to patient, Instructed on discharge instructions, follow up and referral plans. medication usage, Demonstrated understanding of instructions, follow-up care, medications, Prescriptions given X 2. 01:53 Patient left the ED. aa1 Signatures: Myriam Garcia, ELÍAS RN aa1 Princess Hoover, FILTER TANK TENDER-C FILTER TANK TENDER-Royaw Kacey Lawrence RN RN ls4 Ellie Whitman jg7
--- NOTE | 2019-10-14 01:15 | EDPHYS ---
Physician Documentation [facility] Name: Deborah Torres Age: 24 yrs Sex: Female : 1995 Arrival Date: 10/13/2019 Time: 22:45 Bed 14 Private MD: JUDY Physician Shawn Pollard HPI: 10/13 00:08 This 24 yrs old Female presents to ER via Ambulatory with complaints of snw Abdominal Pain, Vomiting, Decreased Appetite. 00:08 The patient presents with abdominal pain in the right upper quadrant, right lower snw quadrant. Onset: The symptoms/episode began/occurred acutely, waxing and waning. The symptoms do not radiate. Associated signs and symptoms: none. The symptoms are described as crampy. Severity of pain: At its worst the pain was moderate. The patient has experienced similar episodes in the past. It is unknown whether or not the patient has recently seen a physician. Historical: - Allergies: 10/12 23:30 HYDROCODONE; ls4 23:30 promethazine HCl; ls4 23:30 Tape; ls4 - PMHx: 23:30 Anxiety; Asthma; Bipolar disorder; Depression; Hypertension; Migraines; Pre-eclampsia; ls4 premature births, 2 miscarrages; Thyroid problem; - Immunization history:: Adult Immunizations up to date, Flu vaccine is not up to date. Patient has never been vaccinated. . - Social history:: Smoking status: Patient denies any tobacco usage or history of. ROS: 10/13 00:07 Constitutional: Negative for fever, chills, and weight loss, Eyes: Negative for injury, snw pain, redness, and discharge, ENT: Negative for injury, pain, and discharge, Neck: Negative for injury, pain, and swelling, Cardiovascular: Negative for chest pain, palpitations, and edema, Respiratory: Negative for shortness of breath, cough, wheezing, and pleuritic chest pain, Back: Negative for injury and pain, : Negative for injury, bleeding, discharge, and swelling, MS/Extremity: Negative for injury and deformity, Skin: Negative for injury, rash, and discoloration, Neuro: Negative for headache, weakness, numbness, tingling, and seizure, Psych: Negative for depression, anxiety, suicide ideation, homicidal ideation, and hallucinations. Abdomen/GI: Positive for abdominal pain, of the right upper quadrant and right lower quadrant. Exam: 00:07 Head/Face: Normocephalic, atraumatic. Eyes: Pupils equal round and reactive to light, snw extra-ocular motions intact. Lids and lashes normal. Conjunctiva and sclera are non-icteric and not injected. Cornea within normal limits. Periorbital areas with no swelling, redness, or edema. ENT: Nares patent. No nasal discharge, no septal abnormalities noted. Tympanic membranes are normal and external auditory canals are clear. Oropharynx with no redness, swelling, or masses, exudates, or evidence of obstruction, uvula midline. Mucous membranes moist. Neck: Trachea midline, no thyromegaly or masses palpated, and no cervical lymphadenopathy. Supple, full range of motion without nuchal rigidity, or vertebral point tenderness. No Meningismus. Chest/axilla: Normal chest wall appearance and motion. Nontender with no deformity. No lesions are appreciated. Cardiovascular: Regular rate and rhythm with a normal S1 and S2. No gallops, murmurs, or rubs. Normal PMI, no JVD. No pulse deficits. Respiratory: Lungs have equal breath sounds bilaterally, clear to auscultation and percussion. No rales, rhonchi or wheezes noted. No increased work of breathing, no retractions or nasal flaring. Abdomen/GI: Soft, non-tender, with normal bowel sounds. No distension or tympany. No guarding or rebound. No evidence of tenderness throughout. Back: No spinal tenderness. No costovertebral tenderness. Full range of motion. Skin: Warm, dry with normal turgor. Normal color with no rashes, no lesions, and no evidence of cellulitis. MS/ Extremity: Pulses equal, no cyanosis. Neurovascular intact. Full, normal range of motion. Neuro: Awake and alert, GCS 15, oriented to person, place, time, and situation. Cranial nerves II-XII grossly intact. Motor strength 5/5 in all extremities. Sensory grossly intact. Cerebellar exam normal. Normal gait. Psych: Awake, alert, with orientation to person, place and time. Behavior, mood, and affect are within normal limits. 00:07 Constitutional: The patient appears alert, awake, obese, unkempt. Vital Signs: 10/12 23:26 BP 130 / 81; Pulse 74; Resp 14; Temp 98.5; Pulse Ox 100% on R/A; Weight 88 kg; Height 5 ls4 ft. 2 in. (157.48 cm); Pain 10/10; 23:33 BP 130 / 81; Pulse 74; Resp 14; Temp 98.4; Pulse Ox 99% ; Pain 10/10; ls4 23:26 Body Mass Index 35.48 (88.00 kg, 157.48 cm) ls4 MDM: 23:08 Patient medically screened. [facility] 10/13 01:14 Data reviewed: vital signs, nurses notes. Data interpreted: Pulse oximetry: on room air snw is 99 %. Interpretation: normal. Counseling: I had a detailed discussion with the patient and/or guardian regarding: the historical points, exam findings, and any diagnostic results supporting the discharge/admit diagnosis, the presence of at least one elevated blood pressure reading (>120/80) during this emergency department visit, lab results, the need for outpatient follow up, to return to the emergency department if symptoms worsen or persist or if there are any questions or concerns that arise at home. Special discussion: Based on the patient's Hx, exam, and Dx evaluation, there is no indication for emergent surgery or inpatient Tx. It is understood by the patient/guardian that if the Sx's persist or worsen they need to return immediately for re-evaluation. I have referred the patient to see his PCP for further evaluation of high blood pressure. Based on the history and exam findings, there is no indication for further emergent testing or inpatient evaluation. I discussed with the patient/guardian the need to see the primary care provider for further evaluation of the symptoms. 10/12 23:59 Order name: Urine Microscopic Only; Complete Time: 01:00 snw 10/13 00:24 Order name: Urine Dipstick--Ancillary (enter results) [facility] 10/13 00:24 Order name: Urine --Ancillary (enter results) [facility] 10/13 01:02 Order name: Urine Culture [facility] 10/12 23:59 Order name: Urine Test (obtain specimen); Complete Time: 00:24 snw 10/12 23:59 Order name: Urine Dipstick-Ancillary (obtain specimen); Complete Time: 00:24 snw Administered Medications: 01:10 Drug: Rocephin (cefTRIAXone) 1 grams Route: IM; Site: right gluteus; aa1 01:48 Follow up: Response: No adverse reaction aa1 01:10 Drug: Motrin 800 mg Route: PO; aa1 01:48 Follow up: Response: No adverse reaction; Pain is decreased aa1 Disposition: 07:42 Co-signature as Attending Physician, Shawn Pollard MD I agree with the assessment and emilie plan of care. Disposition: 10/14/19 01:13 Discharged to Home. Impression: Urinary tract infection, site not specified, Generalized abdominal pain. - Condition is Stable. - Discharge Instructions: Abdominal Pain, Adult, Urinary Tract Infection, Adult, Rehydration, Adult, [place] Diet. - Prescriptions for Augmentin 875- 125 mg Oral Tablet - take 1 tablet by ORAL route every 12 hours for 10 days; 20 tablet. Zofran 4 mg Oral Tablet - take 1 tablet by ORAL route every 12 hours As needed; 6 tablet. - Work release form, Medication Reconciliation Form, Thank You Letter, Antibiotic Education, Prescription Opioid Use form. - Follow up: Emergency Department; When: As needed; Reason: Worsening of condition. Follow up: Private Physician; When: 1 - 2 days; Reason: Recheck today's complaints, Continuance of care, Re-evaluation by your physician. Signatures: Dispatcher [employer] Myriam Cooper RN RN aa1 Shawn Pollard MD MD cha Therrien, Shelly, TRAIN BRAKEMAN-C TRAIN BRAKEMAN-Csnw Kacey Lawrence RN RN ls4 Corrections: (The following items were deleted from the chart) 01:53 01:13 10/14/2019 01:13 Discharged to Home. Impression: Urinary tract infection, site aa1 not specified; Generalized abdominal pain. Condition is Stable. Forms are Medication Reconciliation Form, Thank You Letter, Antibiotic Education, Prescription Opioid Use. Follow up: Emergency Department; When: As needed; Reason: Worsening of condition. Follow up: Private Physician; When: 1 - 2 days; Reason: Recheck today's complaints, Continuance of care, Re-evaluation by your physician. snw
[2019-10-14 02:06] VITALS: BP 130/81
[2019-10-14 02:08] VITALS: TEMP 98.4; O2SAT 99
== END 2019-10-14 01:53 | disposition home or self-care (01) ==
LOC: ER 22:39
DX: N39.0 Urinary tract infection, site not specified (principal); Z88.5 Allergy status to narcotic agent; Z88.8 Allergy status to other drugs, medicaments and biological substances; Z91.048 Other nonmedicinal substance allergy status
CPT/HCPCS: 81003; 81015; 81025; 87086; 87088; 96372; 99283

== ENCOUNTER 2019-10-25 14:54 | Emergency (ER) | payer OTHER ==
--- OUTSIDE RECORDS SUMMARY | 2019-10-25 14:56 | XMS REPORT ---
:1995 [facility] [address] [place] [address] Dr. Cartwright [address] [place] [id number] Care Team Providers Name Role Phone Unavailable Unavailable Unavailable Problems This patient has no known problems. Allergies, Adverse Reactions, Alerts This patient has no known allergies or adverse reactions. Medications This patient has no known medications.
[2019-10-25] MEDS ORDERED: NA CHLORIDE 0.9% 1,000 ML ONE (15:49)
[2019-10-25] MEDS ORDERED: DIPHENHYDRAMINE 50 MG/ML VIAL ONE (15:49)
[2019-10-25] MEDS ORDERED: KETOROLAC 30 MG/ML INJ ONE (15:49)
[2019-10-25] MEDS ORDERED: METOCLOPRAMIDE 10 MG/2mL INJ ONE (15:49)
[2019-10-25 16:40] LABS: Absolute Lymphocytes (CBC) 0.9 K/uL (0.7-4.9); Basophils % 0.3 % (0-1.3); Hematocrit 40.8 % (36.0-45.0); Lymphocytes % 8.9 % (15.3-44.8); MPV 10.2 fL (7.6-11.3)
[2019-10-25 16:55] LABS: Albumin 3.5 g/dL (3.4-5.0); Bilirubin Direct 0.2 mg/dL (0-0.2); Bilirubin Total 1.4 mg/dL (0.2-1.0); Potassium 3.3 mmol/L (3.5-5.1); Protein, Total 7.4 g/dL (6.4-8.2)
--- NOTE | 2019-10-25 18:24 | RAD REPORT ---
EXAM DESCRIPTION: CT - Abdomen Pelvis W Contrast - 10/25/2019 5:45 pm CLINICAL HISTORY: Abdominal pain COMPARISON: 2018 TECHNIQUE: Computed axial tomography of the abdomen pelvis was obtained. 100 cc Isovue-300 was admin istered intravenously. Oral contrast was not requested which limits evaluation of bowel. All CT scans are performed using dose optimization technique as appropriate and may include automated exposure control or mA/KV adjustment according to patient size. FINDINGS: Fatty liver. The liver and spleen are mildly enlarged. Pancreas, adrenal and kidneys appear unremarkable. There is no evidence of diverticulitis. Normal appendix IMPRESSION: Mild hepatosplenomegaly
--- NOTE | 2019-10-25 19:22 | ER ---
Nurse's Notes [facility] Name: Deborah Torres Age: 24 yrs Sex: Female : 1995 Arrival Date: 10/25/2019 Time: 14:56 Bed 8 Private MD: Diagnosis: Generalized abdominal pain;Diarrhea, unspecified;Nausea with vomiting, unspecified Presentation: 10/24 15:08 Chief complaint: Diffuse abdominal pain and diarrhea x 2 days. Body aches, sore throat, hb and cough x 3 days. Coronavirus screen: Patient reports a subjective fever or greater than 100.4F, or cough, or shortness of breath, or difficulty breathing. Surgical mask placed on patient. Patient moved to private room, placed in contact and droplet isolation with eye protection until further assessment. Ebola Screen: No symptoms or risks identified at this time. Initial Sepsis Screen: Does the patient meet any 2 criteria? No. Patient's initial sepsis screen is negative. Does the patient have a suspected source of infection? No. Patient's initial sepsis screen is negative. Risk Assessment: Do you want to hurt yourself or someone else? Patient reports no desire to harm self or others. 15:08 Method Of Arrival: Ambulatory hb 15:08 Acuity: NORM 3 hb 19:39 Onset of symptoms was October 25, 2019. jd3 [employer]: 19:39 LMP N/A - Irregular menses jd3 Historical: - Allergies: 15:09 HYDROCODONE; hb 15:09 promethazine HCl; hb 15:09 Tape; hb - PMHx: 15:09 Anxiety; Asthma; Depression; Hypertension; Migraines; Pre-eclampsia; premature births, hb 2 miscarrages; Thyroid problem; Bipolar disorder; - Immunization history:: Adult Immunizations up to date. - Social history:: Smoking status: Patient denies any tobacco usage or history of. Screenin:25 Abuse screen: Denies threats or abuse. Nutritional screening: No deficits noted. em Tuberculosis screening: No symptoms or risk factors identified. Fall Risk None identified. Assessment: 15:35 General: Appears in no apparent distress. comfortable, Behavior is calm, cooperative, em Reports fatigue for >3 days, Denies feeling ill. Pain: Complains of pain in abdomen and head Pain currently is 10 out of 10 on a pain scale. Neuro: Level of Consciousness is awake, alert, obeys commands, Oriented to person, place, time, situation, Appropriate for age. Cardiovascular: Capillary refill < 3 seconds Patient's skin is warm and dry. Respiratory: Airway is patent Respiratory effort is even, unlabored, Respiratory pattern is regular, symmetrical, Breath sounds are clear. Respiratory: Reports cough that is. GI: Abdomen is flat, Bowel sounds present X 4 quads. Abd is soft X 4 quads Abdomen is tender to palpation in abdomen diffusely Reports diarrhea, nausea, vomiting. Derm: Skin is intact, is healthy with good turgor, Skin is pink, warm \T\ dry. Musculoskeletal: Capillary refill < 3 seconds, Range of motion: intact in all extremities. 16:57 Reassessment: Patient appears in no apparent distress at this time. Patient and/or em family updated on plan of care and expected duration. Pain level reassessed. Patient is alert, oriented x 3, equal unlabored respirations, skin warm/dry/pink. Patient denies pain at this time. Patient states feeling better. Patient states symptoms have improved. 17:34 Reassessment: Patient appears in no apparent distress at this time. wheeled to CT via em stretcher. 19:36 Reassessment: Patient appears in no apparent distress at this time. Patient and/or jd3 family updated on plan of care and expected duration. Pain level reassessed. Patient is alert, oriented x 3, equal unlabored respirations, skin warm/dry/pink. pt reported understanding of discharge instructions. pt discharged to lobby with a mask to wait for family. Patient states feeling better. General: Appears in no apparent distress. uncomfortable, Behavior is calm, cooperative, appropriate for age. Pain: Complains of pain in head and abdomen Quality of pain is described as aching. Neuro: Level of Consciousness is awake, alert, obeys commands, Oriented to person, place, time, situation. Cardiovascular: Denies chest pain, Heart tones S1 S2 present Capillary refill < 3 seconds Patient's skin is warm and dry. Respiratory: Reports cough that is non-productive, Airway is patent Respiratory effort is even, unlabored, Respiratory pattern is regular, symmetrical, Breath sounds are clear bilaterally. GI: Abdomen is round non-distended, Bowel sounds present X 4 quads. Abd is soft and non tender X 4 quads. Reports diarrhea, nausea. : No signs and/or symptoms were reported regarding the genitourinary system. EENT: No signs and/or symptoms were reported regarding the EENT system. Derm: Skin is intact, Skin is dry, Skin is normal, Skin temperature is warm. Musculoskeletal: Circulation, motion, and sensation intact. Range of motion: intact in all extremities. Vital Signs: 15:08 BP 151 / 100; Pulse 73; Resp 16; Temp 99; Pulse Ox 98% on R/A; Weight 90.72 kg; Height hb 5 ft. 4 in. (162.56 cm); Pain 10/10; 16:58 BP 121 / 72; Pulse 81; Resp 18; Pulse Ox 99% on R/A; Pain 0/10; em 19:40 BP 125 / 82; Pulse 89; Resp 17 S; Pulse Ox 100% on R/A; jd3 15:08 Body Mass Index 34.33 (90.72 kg, 162.56 cm) hb ED Course: 14:56 Patient arrived in ED. ag5 15:09 Triage completed. hb 15:10 Arm band placed on. hb 15:14 Thanh Connolly, RN is Primary Nurse. em 15:25 Patient has correct armband on for positive identification. Bed in low position. Call em light in reach. 15:26 Tea Hooper FNP-C [facility]. kb 15:26 Luke Hi MD is Attending Physician. kb 15:42 Urine collected: clean catch specimen, cloudy. em 15:50 Initial lab(s) drawn, by me, sent to lab. Inserted saline lock: 20 gauge in right em antecubital area, using aseptic technique. Blood collected. 17:47 CT Abd/Pelvis - IV Contrast Only In Process Unspecified. EDMS 19:39 No provider procedures requiring assistance completed. IV discontinued, intact, jd3 bleeding controlled, No redness/swelling at site. Pressure dressing applied. Administered Medications: 15:50 Drug: NS 0.9% 1000 ml Route: IV; Rate: 1000 ml; Site: right antecubital; em 18:40 Follow up: IV Status: Completed infusion; IV Intake: 1000ml em 15:50 Drug: Benadryl 12.5 mg Route: IVP; Site: right antecubital; em 17:00 Follow up: Response: No adverse reaction; Marked relief of symptoms; Pain is decreased em 15:52 Drug: TORadol 30 mg Route: IVP; Site: right antecubital; em 17:00 Follow up: Response: No adverse reaction; Marked relief of symptoms; Pain is decreased em 15:53 Drug: Reglan 10 mg Route: IVP; Site: right antecubital; em 17:00 Follow up: Response: No adverse reaction; Marked relief of symptoms; Pain is decreased em 19:25 Drug: Potassium Chloride 20 mEq Route: PO; ea 19:36 Follow up: Response: Medication administered at discharge. jd3 19:35 Drug: fentaNYL (PF) 25 mcg Route: IVP; Site: right antecubital; jd3 19:36 Follow up: Response: Medication administered at discharge.; RASS: Alert and Calm (0) jd3 Intake: 18:40 IV: 1000ml; Total: 1000ml. em Outcome: 19:21 Discharge ordered by MD. kb 19:39 Discharged to home ambulatory, with family. jd3 19:39 Condition: stable 19:39 Discharge instructions given to patient, Instructed on discharge instructions, follow up and referral plans. medication usage, Demonstrated understanding of instructions, follow-up care, medications, Prescriptions given X 2. 19:41 Patient left the ED. jd3 Signatures: Dispatcher [employer] EDMS Tea Hooper, HUMERA-C [employer]ING ASSEMBLER-Thanh Kim, Zonia Castro RN, RN Emili Hernadez RN RN ea Davies, Jonathon, RN RN jd3 Gaskin, Ajare ag5 Corrections: (The following items were deleted from the chart) 15:10 15:08 Chief complaint: Diffuse abdominal pain and diarrhea x 2 days hb hb 15:10 15:08 Coronavirus screen: Patient denies fever greater than 100.4F, cough, shortness of hb breath, or difficulty breathing. Proceed with normal triage process. hb 19:39 19:36 Reassessment: Patient appears in no apparent distress at this time. Patient jd3 and/or family updated on plan of care and expected duration. Pain level reassessed. Patient is alert, oriented x 3, equal unlabored respirations, skin warm/dry/pink. pt reported understanding of discharge instructions. Patient states feeling better. jd3
--- NOTE | 2019-10-25 19:22 | EDPHYS ---
Physician Documentation [facility] Name: Deborah Torres Age: 24 yrs Sex: Female : 1995 Arrival Date: 10/25/2019 Time: 14:56 Bed 8 Private MD: ED Physician Luke Hi HPI: 10/24 16:08 This 24 yrs old Female presents to ER via Ambulatory with complaints of kb Vomiting/Diarrhea, Weakness, Headache. 16:08 The patient presents to the emergency department with nausea, vomiting, diarrhea, kb abdominal pain. Onset: The symptoms/episode began/occurred 1 week(s) ago. Possible causes: unknown. The symptoms are aggravated by nothing. The symptoms are alleviated by nothing. Associated signs and symptoms: Pertinent positives: abdominal pain, diarrhea, fever, nausea, vomiting. Severity of symptoms: At their worst the symptoms were moderate in the emergency department the symptoms are unchanged. The patient has not experienced similar symptoms in the past. The patient has not recently seen a physician. Pt reports diarrhea for a week, nausea and vomiting with abd pain since this morning, cough, congestion, shortness of breath, sore throat, EATON and fever since yesterday. History of asthma and migraines. . 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 - Social history:: Smoking status: Patient denies any tobacco usage or history of. ROS: 16:07 Neck: Negative for injury, pain, and swelling, Cardiovascular: Negative for chest pain, kb palpitations, and edema, Back: Negative for injury and pain, : Negative for injury, bleeding, discharge, and swelling, MS/Extremity: Negative for injury and deformity, Skin: Negative for injury, rash, and discoloration. 16:07 Constitutional: Positive for body aches, chills, fatigue, fever, malaise. 16:07 ENT: Positive for sinus congestion, sore throat. 16:07 Respiratory: Positive for cough, shortness of breath, Negative for dyspnea on exertion, hemoptysis, orthopnea, pleurisy, sputum production, wheezing. 16:07 Neuro: Positive for headache. Exam: 16:07 Constitutional: This is a well developed, well nourished patient who is awake, alert, kb and in no acute distress. Head/Face: Normocephalic, atraumatic. ENT: Nares patent. No nasal discharge, no septal abnormalities noted. Tympanic membranes are normal and external auditory canals are clear. Oropharynx with no redness, swelling, or masses, exudates, or evidence of obstruction, uvula midline. Mucous membranes moist. Neck: Trachea midline, no thyromegaly or masses palpated, and no cervical lymphadenopathy. Supple, full range of motion without nuchal rigidity, or vertebral point tenderness. No Meningismus. Chest/axilla: Normal chest wall appearance and motion. Nontender with no deformity. No lesions are appreciated. Cardiovascular: Regular rate and rhythm with a normal S1 and S2. No gallops, murmurs, or rubs. Normal PMI, no JVD. No pulse deficits. Respiratory: Lungs have equal breath sounds bilaterally, clear to auscultation and percussion. No rales, rhonchi or wheezes noted. No increased work of breathing, no retractions or nasal flaring. Back: No spinal tenderness. No costovertebral tenderness. Full range of motion. Skin: Warm, dry with normal turgor. Normal color with no rashes, no lesions, and no evidence of cellulitis. MS/ Extremity: Pulses equal, no cyanosis. Neurovascular intact. Full, normal range of motion. Neuro: Awake and alert, GCS 15, oriented to person, place, time, and situation. Cranial nerves II-XII grossly intact. Motor strength 5/5 in all extremities. Sensory grossly intact. Cerebellar exam normal. Normal gait. 16:07 Abdomen/GI: Inspection: abdomen appears normal, Bowel sounds: normal, in all quadrants, Palpation: soft, in all quadrants, moderate abdominal tenderness, in all quadrants. Vital Signs: 15:08 BP 151 / 100; Pulse 73; Resp 16; Temp 99; Pulse Ox 98% on R/A; Weight 90.72 kg; Height hb 5 ft. 4 in. (162.56 cm); Pain 10/10; 16:58 BP 121 / 72; Pulse 81; Resp 18; Pulse Ox 99% on R/A; Pain 0/10; em 19:40 BP 125 / 82; Pulse 89; Resp 17 S; Pulse Ox 100% on R/A; jd3 15:08 Body Mass Index 34.33 (90.72 kg, 162.56 cm) hb MDM: 15:26 Patient medically screened. kb 16:08 Data reviewed: vital signs, nurses notes. Data interpreted: Pulse oximetry: on room air kb is 98 %. Interpretation: normal. 19:20 Counseling: I had a detailed discussion with the patient and/or guardian regarding: the kb historical points, exam findings, and any diagnostic results supporting the discharge/admit diagnosis, lab results, radiology results, the need for outpatient follow up, a family practitioner, to return to the emergency department if symptoms worsen or persist or if there are any questions or concerns that arise at home. 10/24 15:38 Order name: Basic Metabolic Panel; Complete Time: 16:56 kb 10/24 15:38 Order name: CBC with Diff; Complete Time: 16:45 kb 10/24 15:38 Order name: Hepatic Function; Complete Time: 16:56 kb 10/24 15:38 Order name: Lipase; Complete Time: 16:56 kb 10/24 15:38 Order name: Flu; Complete Time: 17:19 kb 10/24 15:38 Order name: Strep; Complete Time: 16:59 kb 10/24 15:42 Order name: Urine Dipstick--Ancillary (enter results); Complete Time: 10:10 bd 10/24 15:42 Order name: Urine --Ancillary (enter results); Complete Time: 10:10 bd 10/24 16:59 Order name: Throat Culture EDKS 10/24 17:20 Order name: CT Abd/Pelvis - IV Contrast Only; Complete Time: 18:31 kb 10/24 15:38 Order name: IV Saline Lock; Complete Time: 16:22 kb 10/24 15:38 Order name: Labs collected and sent; Complete Time: 16:22 kb 10/24 15:38 Order name: Urine Dipstick-Ancillary (obtain specimen); Complete Time: 15:41 kb Administered Medications: 15:50 Drug: NS 0.9% 1000 ml Route: IV; Rate: 1000 ml; Site: right antecubital; em 18:40 Follow up: IV Status: Completed infusion; IV Intake: 1000ml em 15:50 Drug: Benadryl 12.5 mg Route: IVP; Site: right antecubital; em 17:00 Follow up: Response: No adverse reaction; Marked relief of symptoms; Pain is decreased em 15:52 Drug: TORadol 30 mg Route: IVP; Site: right antecubital; em 17:00 Follow up: Response: No adverse reaction; Marked relief of symptoms; Pain is decreased em 15:53 Drug: Reglan 10 mg Route: IVP; Site: right antecubital; em 17:00 Follow up: Response: No adverse reaction; Marked relief of symptoms; Pain is decreased em 19:25 Drug: Potassium Chloride 20 mEq Route: PO; ea 19:36 Follow up: Response: Medication administered at discharge. jd3 19:35 Drug: fentaNYL (PF) 25 mcg Route: IVP; Site: right antecubital; jd3 19:36 Follow up: Response: Medication administered at discharge.; RASS: Alert and Calm (0) jd3 Disposition: 10/25 10:10 Co-signature as Attending Physician, Luke Hi MD. rn Disposition: 10/25/19 19:21 Discharged to Home. Impression: Generalized abdominal pain, Diarrhea, unspecified, Nausea with vomiting, unspecified. - Condition is Stable. - Discharge Instructions: Food Choices to Help Relieve Diarrhea, Adult, Viral Gastroenteritis, Adult, [id number]. - Prescriptions for Bentyl 20 mg Oral Tablet - take 1 tablet by ORAL route every 6 hours As needed; 20 tablet. Zofran 4 mg Oral Tablet - take 1 tablet by ORAL route every 6 hours As needed; 20 tablet. - Medication Reconciliation Form, Thank You Letter, Antibiotic Education, Prescription Opioid Use form. - Follow up: Emergency Department; When: As needed; Reason: Worsening of condition. Follow up: Private Physician; When: 2 - 3 days; Reason: Recheck today's complaints, Continuance of care, Re-evaluation by your physician. Signatures: Dispatcher [employer] Tea Ambrosio, NAM GRUBBS-Thanh Kim RN Luke Escobedo MD MD rn Baxter, Heather, RN RN hb Antunez, Elena, RN RN ea Davies, Jonathon, RN RN jd3 Corrections: (The following items were deleted from the chart) 10/24 19:41 19:21 10/25/2019 19:21 Discharged to Home. Impression: Generalized abdominal pain; jd3 Diarrhea, unspecified; Nausea with vomiting, unspecified. Condition is Stable. Forms are Medication Reconciliation Form, Thank You Letter, Antibiotic Education, Prescription Opioid Use. Follow up: Emergency Department; When: As needed; Reason: Worsening of condition. Follow up: Private Physician; When: 2 - 3 days; Reason: Recheck today's complaints, Continuance of care, Re-evaluation by your physician. kb
[2019-10-25 20:00] VITALS: TEMP 99
[2019-10-25 20:03] VITALS: BP 125/82; O2SAT 100
[2019-10-25 20:42] LABS: Urine Blood NEGATIVE (NEG); Urine Glucose NEGATIVE (NEG); Urine Protein TRACE (NEG); Urine Specific Gravity 1.025 (1.005-1.030)
[2019-10-27] MEDS ORDERED: NA CHLORIDE 0.9% 250 ML ONE (12:45)
[2019-11-04] MEDS ORDERED: PIPER/TAZO/NS 3.375gm 3.375 GM/100 ML BAG ONE (02:39)
== END 2019-10-25 19:41 | disposition home or self-care (01) ==
LOC: ER 14:54
DX: R10.84 Generalized abdominal pain (principal); R19.7 Diarrhea, unspecified; I10 Essential (primary) hypertension; Z88.5 Allergy status to narcotic agent; Z88.8 Allergy status to other drugs, medicaments and biological substances; Z91.048 Other nonmedicinal substance allergy status
CPT/HCPCS: 87070; 85025; 80048; 36415; 81025; 80076; 87081; 81003; 83690; 87804 ×2; 74177; Q9967; J2765; J1200; J7030; 96361; 96374; 96375; 99284

== ENCOUNTER 2020-02-13 15:47 | Emergency (ER) | payer OTHER ==
--- OUTSIDE RECORDS SUMMARY | 2020-02-13 17:03 | XMS REPORT | Clinical Summary ---
:1995 Author Organization [facility] Address [address] [place] [address] Care Team Providers Name Role Phone Unavailable [...] INFLUENZA VACCINE 05/03/2018 Results Not on fileafter 02/12/2019
--- OUTSIDE RECORDS SUMMARY | 2020-02-13 17:03 | XMS REPORT | Continuity of Care Document ---
:1995 Author Organization [facility] t Address [address] [place] [address] Care Team Providers Name Role Phone Doctor Unassigned, Name Attending Clinician Unavailable Problems This patient has no known problems. Allergies, Adverse Reactions, Alerts This patient has no known allergies or adverse reactions. Social History Social Habit Start Date Stop Date Quantity Comments Source Sex Assigned At [facility] Medications This patient has no known medications. Procedures This patient has no known procedures. Plan of Care Planned Activity Planned Date Details Comments Source Future Scheduled 2018-05-[address] [facility] 00:00:00 [code = INFLUENZA Medical Ce nter VACCINE] Encounters Start End Encounter Admission Attending Care Care Encounter Source Date/Time Date/Time Type Type Clinicians Facility Department ID 2019-03-02 2019-03-02 Orders Doctor ADRIÁN [id number] 00:00:00 00:00:00 Only Unassigned, BAILEY [id number] [place] [facility] [id number] Results This patient has no known results.
--- NOTE | 2020-02-13 19:45 | ER ---
Nurse's Notes [facility] Name: Deborah Torres Age: 24 yrs Sex: Female : 1995 Arrival Date: 02/13/2020 Time: 15:53 Bed Waiting Private MD: Diagnosis: Presentation: 02/12 16:40 Chief complaint: Patient states: Positive test Thursday. Vaginal bleeding and ll1 cramping started today. Believes she is having another miscarriage. G12, P2. Coronavirus screen: Proceed with normal triage. Patient denies a cough. Patient denies shortness of breath or difficulty breathing. Patient denies measured and/or subjective temperature greater than 100.4F prior to today's visit. Patient denies travel on a cruise ship or to a country the [facility] currently lists as an affected area. Patient denies contact with known and/or suspected case of COVID-19. Ebola Screen: Patient denies travel to an Ebola-affected area in the 21 days before illness onset. Initial Sepsis Screen: Does the patient meet any 2 criteria? No. Patient's initial sepsis screen is negative. Risk Assessment: Do you want to hurt yourself or someone else? Patient reports no desire to harm self or others. Onset of symptoms was February 13, 2020. 16:40 Method Of Arrival: Ambulatory ll1 16:40 Acuity: NORM 3 ll1 Historical: - Allergies: 16:43 HYDROCODONE; ll1 16:43 promethazine HCl; ll1 16:43 Tape; ll1 16:43 PENICILLINS; ll1 - PMHx: 16:43 Anxiety; Asthma; Depression; Hypertension; Migraines; Pre-eclampsia; premature births, ll1 2 miscarrages; Thyroid problem; Bipolar disorder; - PSHx: 16:43 ; Tonsillectomy; ll1 - Immunization history:: Flu vaccine is up to date. - Social history:: Smoking status: Patient reports the use of cigarette tobacco products, smokes one-half pack cigarettes per day, Patient uses street drugs, marijuana, Patient/guardian denies using alcohol. Vital Signs: 16:40 BP 128 / 95; Pulse 86; Resp 18; Temp 98.2; Pulse Ox 96% ; Pain 7/10; ll1 ED Course: 15:53 Patient arrived in ED. mr 16:42 Triage completed. ll1 16:43 Arm band placed on Patient notified of wait time. ll1 18:22 Geraldo Alcala NP is PHCP. pm1 18:22 Shawn Pollard MD is Attending Physician. pm1 18:26 Patient's name was called from ER lobby. No response. sv 19:35 not in lobby when called at 1900 and 1935. Left without being treated. ll1 Administered Medications: No medications were administered Outcome: 19:44 Patient left the ED. ll1 Signatures: Pat Duckworth, RN RN Seema Thomas mr Geraldo Alcala, [employer] SUPPORT SPECIALIST pm1 Geeta Simmons RN RN 1
[2020-02-13 19:50] VITALS: BP 128/95; TEMP 98.2; O2SAT 96
== END 2020-02-13 19:44 | disposition left against medical advice (07) ==
LOC: ER 15:47
DX: O20.9 Hemorrhage in early pregnancy, unspecified (principal); F17.210 Nicotine dependence, cigarettes, uncomplicated; Z88.0 Allergy status to penicillin; Z88.6 Allergy status to analgesic agent; Z53.21 Procedure and treatment not carried out due to patient leaving prior to being seen by health care provider
CPT/HCPCS: 99281

== ENCOUNTER 2020-07-26 10:34 | Emergency (ER) | payer OTHER ==
--- OUTSIDE RECORDS SUMMARY | 2020-07-26 10:35 | XMS REPORT | Clinical Summary ---
:1995 Author Organization [facility] Address [address] [place] [address] Care Team Providers Name Role Phone Unavailable Primary Care Provider Unavailable Allergies Not on File Medications Not on file Active Problems Not on file Social History Tobacco Use Types Packs/Day Years Used Date Never Assessed Sex Assigned at Date Recorded Not on file Last Filed Vital Signs Not on file Plan of Treatment Not on file Results Not on fileafter 07/26/2019
--- OUTSIDE RECORDS SUMMARY | 2020-07-26 10:35 | XMS REPORT | Continuity of Care Document ---
:[address] [facility] t Address [address] [place] [address] Care Team Providers Name Role Phone Doctor Unassigned, Name Attending Clinician Unavailable Problems This patient has no known problems. Allergies, Adverse Reactions, Alerts This patient has no known allergies or adverse reactions. Social History Social Habit Start Date Stop Date Quantity Comments Source Sex Assigned At [facility] Medications This patient has no known medications. Procedures This patient has no known procedures. Encounters Start End Encounter Admission Attending Care Care Encounter Source Date/Time Date/Time Type Type Clinicians Facility Department ID 2019-03-02 2019-03-02 Orders Doctor SAMPSON [id number] 00:00:00 00:00:00 Only UnassBAILEY cross [id number] [place] [facility] [id number] Results This patient has no known results.
[2020-07-26] MEDS ORDERED: DIPHENHYDRAMINE 50 MG/ML VIAL ONE (11:18)
[2020-07-26] MEDS ORDERED: NA CHLORIDE 0.9% 1,000 ML ONE (11:18)
[2020-07-26] MEDS ORDERED: KETOROLAC 30 MG/ML INJ ONE (11:18)
[2020-07-26] MEDS ORDERED: METOCLOPRAMIDE 10 MG/2mL INJ ONE (11:18)
[2020-07-26] MEDS ORDERED: ONDANSETRON 4 MG/2 ML VIAL ONE (11:18)
[2020-07-26 11:59] LABS: Urine Blood NEGATIVE (NEG); Urine Glucose NEGATIVE (NEG); Urine Protein NEGATIVE (NEG); Urine pH 6.5 (5.0-7.0)
--- NOTE | 2020-07-26 12:19 | ER ---
Nurse's Notes [facility] Name: Deborah Torres Age: 25 yrs Sex: Female : 1995 Arrival Date: 07/26/2020 Time: 10:36 Bed 8 Private MD: Diagnosis: Headache;Dizziness and giddiness Presentation: 07/26 10:46 Chief complaint: Patient states: Migraine EATON for 1 week. N/V with dizziness for 3 days. ll1 No fever. Coronavirus screen: Client denies travel out of the [place] in the last 14 days. headache, nausea, vomiting. Client presents with at least one sign or symptom that may indicate coronavirus-19. Standard/surgical mask placed on the client. Ebola Screen: Patient denies travel to an Ebola-affected area in the 21 days before illness onset. Initial Sepsis Screen: Does the patient meet any 2 criteria? HR > 90 bpm. No. Patient's initial sepsis screen is negative. Does the patient have a suspected source of infection? Yes: Other: EATON, N/V. Risk Assessment: Do you want to hurt yourself or someone else? Patient reports no desire to harm self or others. Onset of symptoms was July 20, 2020. 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 - Social history:: Smoking status: Patient reports the use of cigarette tobacco products, denies chronic smoking, but will smoke occasionally. Screenin:15 Abuse screen: Denies threats or abuse. Denies injuries from another. Nutritional jl7 screening: No deficits noted. Tuberculosis screening: No symptoms or risk factors identified. Fall Risk IV access (20 points). Total Chan Fall Scale indicates No Risk (0-24 pts). Assessment: 11:00 General: Appears in no apparent distress. uncomfortable, Behavior is calm, cooperative, jl7 appropriate for age. Pain: Complains of pain in EATON Pain does not radiate. Pain currently is 7 out of 10 on a pain scale. at worst was 10 out of 10 on a pain scale. Quality of pain is described as throbbing, Pain began 1 week ago Is continuous. Neuro: Level of Consciousness is awake, alert, obeys commands, Oriented to person, place, time, situation, Moves all extremities. Full function Gait is steady, Speech is normal, Facial symmetry appears normal. Cardiovascular: Denies chest pain, Patient's skin is warm and dry. Respiratory: Airway is patent Respiratory effort is even, unlabored, Respiratory pattern is regular, symmetrical. GI: Reports nausea, vomiting. : Reports cramping. Derm: Skin is pink, warm \T\ dry. Vital Signs: 10:46 BP 136 / 103; Pulse 98; Resp 17; Temp 98.7; Pulse Ox 98% ; Weight 89.36 kg; Height 5 ll1 ft. 4 in. (162.56 cm); Pain 6/10; 12:18 BP 112 / 76; Pulse 60; Resp 15; Pulse Ox 100% ; Pain 0/10; jl7 10:46 Body Mass Index 33.81 (89.36 kg, 162.56 cm) ll1 ED Course: 10:36 Patient arrived in ED. as 10:38 Shawn Roberts PA is PHCP. cp 10:38 Shawn Pollard MD is Attending Physician. cp 10:45 Arm band placed on Patient placed in an exam room, on a stretcher. ll1 10:48 Triage completed. ll1 10:59 Monse Tran, ELÍAS is Primary Nurse. jl7 11:15 Patient has correct armband on for positive identification. Bed in low position. Call jl7 light in reach. Side rails up X 1. Pulse ox on. NIBP on. 11:15 Inserted saline lock: 20 gauge in right antecubital area, using aseptic technique. jl7 12:32 No provider procedures requiring assistance completed. IV discontinued, intact, jl7 bleeding controlled, No redness/swelling at site. Pressure dressing applied. Administered Medications: 11:15 Drug: NS 0.9% 1000 ml Route: IV; Rate: 1 bolus; Site: right antecubital; jl7 12:00 Follow up: Response: No adverse reaction; IV Status: Completed infusion; IV Intake: jl7 1000ml 11:15 Drug: TORadol - Ketorolac 15 mg Route: IVP; Site: right antecubital; jl7 12:19 Follow up: Response: No adverse reaction; Pain is decreased jl7 11:18 Drug: Zofran (Ondansetron) 4 mg Route: IVP; Site: right antecubital; jl7 11:35 Follow up: Response: No adverse reaction; Nausea is decreased jl7 11:20 Drug: Benadryl 25 mg Route: IVP; Site: right antecubital; jl7 12:19 Follow up: Response: No adverse reaction; Marked relief of symptoms jl7 11:24 Drug: Reglan 10 mg Route: IVP; Site: right antecubital; jl7 12:19 Follow up: Response: No adverse reaction; Marked relief of symptoms jl7 Intake: 12:00 IV: 1000ml; Total: 1000ml. jl7 Outcome: 12:19 Discharge ordered by MD. crow 12:32 Discharged to home ambulatory. jl7 12:32 Condition: stable 12:32 Discharge instructions given to patient, Instructed on discharge instructions, follow up and referral plans. medication usage, Demonstrated understanding of instructions, follow-up care, medications, Prescriptions given X 3. 12:36 Patient left the ED. jl7 Signatures: Radha Bourne Corey, PA PA cp Leal, Jahala, RN RN jl7 Geeta Simmons RN RN ll1 Corrections: (The following items were deleted from the chart) 11:29 11:18 Zofran (Ondansetron) 4 mg IVP in left antecubital jl7 jl7 11:30 11:15 TORadol - Ketorolac 15 mg IVP in left antecubital jl7 jl7
--- NOTE | 2020-07-26 12:19 | EDPHYS ---
Physician Documentation [facility] Name: Deborah Torres Age: 25 yrs Sex: Female : 1995 Arrival Date: 07/26/2020 Time: 10:36 Bed 8 Private MD: ED Physician Shawn Pollard HPI: 07/26 11:00 This 25 yrs old Female presents to ER via Ambulatory with complaints of cp Headache, Dizziness, Vomiting. 11:00 The patient complains of pain to the top of head and forehead. The patient describes cp the headache as aching. Onset: The symptoms/episode began/occurred 1 week(s) ago. 11:00 Associated signs and symptoms: Pertinent positives: dizziness, nausea, vomiting, cp Pertinent negatives: fever, neck stiffness, sinus congestion, sinus tenderness, vision changes, weakness. Severity of symptoms: in the emergency department the pain is unchanged, despite home interventions. Headache History: The patient has had previous headaches and this one is similar to previous episodes. 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 - Social history:: Smoking status: Patient reports the use of cigarette tobacco products, denies chronic smoking, but will smoke occasionally. ROS: 11:05 Constitutional: Negative for body aches, chills, fever, poor PO intake. cp 11:05 Eyes: Negative for injury, pain, redness, and discharge. cp 11:05 ENT: Negative for ear pain, sinus congestion, sinus pain, sore throat, difficulty swallowing, difficulty handling secretions. 11:05 Neck: Negative for pain with movement, pain at rest, stiffness, tenderness. 11:05 Cardiovascular: Negative for chest pain, palpitations. 11:05 Respiratory: Negative for cough, shortness of breath, wheezing. 11:05 Abdomen/GI: Positive for nausea and vomiting, Negative for abdominal pain, diarrhea, constipation. 11:05 : Negative for urinary symptoms. 11:05 Neuro: Positive for dizziness, headache, Negative for altered mental status, weakness. 11:05 All other systems are negative. Exam: 11:10 Head/Face: Normocephalic, atraumatic. cp 11:10 Constitutional: The patient appears in no acute distress, alert, awake, non-toxic, well developed, well nourished. 11:10 Eyes: Periorbital structures: appear normal, Pupils: equal, round, and reactive to light and accomodation, Extraocular movements: intact throughout, Conjunctiva: normal, no exudate, no injection, Sclera: no appreciated abnormality, Lids and lashes: appear normal, bilaterally. 11:10 ENT: External ear(s): are unremarkable, Ear canal(s): are normal, clear, TM's: dullness, bilaterally, Nose: is normal, Mouth: Lips: moist, Oral mucosa: pink and intact, moist, Posterior pharynx: Airway: no evidence of obstruction, patent, Tonsils: are normal in appearance, erythema, is not appreciated, exudate, is not appreciated, Voice: is normal. 11:10 Neck: ROM/movement: is normal, is supple, without pain, no range of motions limitations, no meningismus. 11:10 Chest/axilla: Inspection: normal, Palpation: is normal, no crepitus, no tenderness. 11:10 Cardiovascular: Rate: normal, Rhythm: regular, Edema: is not appreciated, JVD: is not appreciated. 11:10 Respiratory: the patient does not display signs of respiratory distress, Respirations: normal, no use of accessory muscles, no retractions, labored breathing, is not present, Breath sounds: are clear throughout, no decreased breath sounds, no stridor, no wheezing. 11:10 Abdomen/GI: Inspection: abdomen appears normal, Palpation: abdomen is soft and non-tender, in all quadrants. 11:10 Neuro: Orientation: to person, place \T\ time. Mentation: is normal, Cerebellar function: is grossly normal, Motor: moves all fours, strength is normal, Sensation: is normal, Gait: is steady, at a normal pace, without difficulty. Vital Signs: 10:46 BP 136 / 103; Pulse 98; Resp 17; Temp 98.7; Pulse Ox 98% ; Weight 89.36 kg; Height 5 ll1 ft. 4 in. (162.56 cm); Pain 6/10; 12:18 BP 112 / 76; Pulse 60; Resp 15; Pulse Ox 100% ; Pain 0/10; jl7 10:46 Body Mass Index 33.81 (89.36 kg, 162.56 cm) ll1 MDM: 10:41 Patient medically screened. 11:15 Differential diagnosis: cluster headache, meningitis, meningoencephalitis, migraine, cp sinusitis, tension headache. 12:15 Data reviewed: vital signs, nurses notes, lab test result(s), and as a result, I will cp discharge patient. 12:15 Counseling: I had a detailed discussion with the patient and/or guardian regarding: the cp historical points, exam findings, and any diagnostic results supporting the discharge/admit diagnosis, lab results, to return to the emergency department if symptoms worsen or persist or if there are any questions or concerns that arise at home. Response to treatment: the patient's symptoms have markedly improved after treatment, Headache and nausea improved. No vomiting observed. Will discharge to home for continued monitoring. 07/26 11:11 Order name: Urine Dipstick--Ancillary (enter results); Complete Time: 12:10 em1 07/26 12:10 Interpretation: Reviewed. 07/26 11:11 Order name: Urine --Ancillary (enter results); Complete Time: 12:10 em1 07/26 12:10 Interpretation: Reviewed. 07/26 10:50 Order name: Urine Dipstick-Ancillary (obtain specimen); Complete Time: 11:10 07/26 10:50 Order name: Urine Test (obtain specimen); Complete Time: 11:10 07/26 10:50 Order name: IV; Complete Time: 12:02 cp Administered Medications: 11:15 Drug: NS 0.9% 1000 ml Route: IV; Rate: 1 bolus; Site: right antecubital; jl7 12:00 Follow up: Response: No adverse reaction; IV Status: Completed infusion; IV Intake: jl7 1000ml 11:15 Drug: TORadol - Ketorolac 15 mg Route: IVP; Site: right antecubital; jl7 12:19 Follow up: Response: No adverse reaction; Pain is decreased jl7 11:18 Drug: Zofran (Ondansetron) 4 mg Route: IVP; Site: right antecubital; jl7 11:35 Follow up: Response: No adverse reaction; Nausea is decreased jl7 11:20 Drug: Benadryl 25 mg Route: IVP; Site: right antecubital; jl7 12:19 Follow up: Response: No adverse reaction; Marked relief of symptoms jl7 11:24 Drug: Reglan 10 mg Route: IVP; Site: right antecubital; jl7 12:19 Follow up: Response: No adverse reaction; Marked relief of symptoms jl7 Disposition: 07/26/20 12:19 Discharged to Home. Impression: Headache, Dizziness and giddiness. - Condition is Stable. - Discharge Instructions: Dizziness, Migraine Headache. - Prescriptions for Ibuprofen 800 mg Oral Tablet - take 1 tablet by ORAL route every 8 hours As needed take with food; 30 tablet. Zofran 4 mg Oral Tablet - take 1 tablet by ORAL route every 12 hours As needed; 20 tablet. Meclizine 25 mg Oral Tablet - take 1 tablet by ORAL route every 8 hours As needed; 30 tablet. - Medication Reconciliation Form, Thank You Letter, Antibiotic Education, Prescription Opioid Use form. - Follow up: Private Physician; When: 1 - 2 days; Reason: Worsening of condition. - Problem is new. - Symptoms have improved. Addendum: 07/28/2020 11:34 Co-signature as Attending Physician, Shawn Pollard MD I agree with the assessment and c enrique plan of care. Signatures: Dispatcher [employer] EDShawn Dixon MD MD cha Page, Corey, PA PA cp Monse Tran RN RN stone7 Geeta Simmons RN RN ll1 Corrections: (The following items were deleted from the chart) 07/26 12:20 12:19 07/26/2020 12:19 Discharged to Home. Impression: Headache. Condition is Stable. cp Forms are Medication Reconciliation Form, Thank You Letter, Antibiotic Education, Prescription Opioid Use. Follow up: Private Physician; When: 1 - 2 days; Reason: Worsening of condition. Problem is new. Symptoms have improved. cp 12:36 12:20 07/26/2020 12:19 Discharged to Home. Impression: Headache; Dizziness and jl7 giddiness. Condition is Stable. Discharge Instructions: Dizziness, Migraine Headache. Prescriptions for Ibuprofen 800 mg Oral Tablet - take 1 tablet by ORAL route every 8 hours As needed take with food; 30 tablet, Zofran 4 mg Oral Tablet - take 1 tablet by ORAL route every 12 hours As needed; 20 tablet, Meclizine 25 mg Oral Tablet - take 1 tablet by ORAL route every 8 hours As needed; 30 tablet. and Forms are Medication Reconciliation Form, Thank You Letter, Antibiotic Education, Prescription Opioid Use. Follow up: Private Physician; When: 1 - 2 days; Reason: Worsening of condition. Problem is new. Symptoms have improved. cp
[2020-07-26 12:41] VITALS: TEMP 98.7
[2020-07-26 12:42] VITALS: BP 112/76; O2SAT 100
== END 2020-07-26 12:36 | disposition home or self-care (01) ==
LOC: ER 10:34
DX: R51.9 Headache, unspecified (principal); R42 Dizziness and giddiness; I10 Essential (primary) hypertension; Z88.0 Allergy status to penicillin; Z88.5 Allergy status to narcotic agent; Z88.8 Allergy status to other drugs, medicaments and biological substances; Z91.048 Other nonmedicinal substance allergy status
CPT/HCPCS: 96361; 81025; 81003; 96375; 96374; 99284; J2765; J1200; J7030; J2405

== ENCOUNTER 2020-11-13 00:30 | Emergency (ER) | payer OTHER ==
--- OUTSIDE RECORDS SUMMARY | 2020-11-13 00:32 | XMS REPORT | Continuity of Care Document ---
:1995 Author Organization [facility] t Address [address] [place] [address] Care Team Providers Name Role Phone Manish Osorio Attending Clinician Problems This patient has no known problems. Allergies, Adverse Reactions, Alerts This patient has no known allergies or adverse reactions. Social History Social Habit Start Date Stop Date Quantity Comments Source Sex Assigned At [facility] Medications This patient has no known medications. Procedures This patient has no known procedures. 

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
[2020-11-13] MEDS ORDERED: ACETAMINOPHEN 500 MG TAB ONE (01:42)
[2020-11-13 02:17] VITALS: TEMP 98.1
[2020-11-13 02:18] VITALS: BP 115/76; O2SAT 96
== END 2020-11-13 02:00 | disposition home or self-care (01) ==
LOC: ER 00:30
DX: S60.512A Abrasion of left hand, initial encounter (principal); S60.511A Abrasion of right hand, initial encounter; V03.00XA Pedestrian on foot injured in collision with car, pick-up truck or van in nontraffic accident, initial encounter; F41.9 Anxiety disorder, unspecified; J45.909 Unspecified asthma, uncomplicated; F31.9 Bipolar disorder, unspecified; I10 Essential (primary) hypertension
CPT/HCPCS: 99284

== ENCOUNTER 2021-10-04 15:28 | Emergency (ER) | payer OTHER ==
--- OUTSIDE RECORDS SUMMARY | 2021-10-04 15:32 | XMS REPORT | Continuity of Care Document ---
:1995 Author Organization [facility] t Address [address] [place] [address] Care Team Providers Name Role Phone GABI, A Primary Care Physician Unavailable MARISOL VAZ Attending Clinician Unavailable VANESSA Attending Clinician Unavailable Micaela ASHLEY Attending Clinician Unavailable KING ALLISON, C Attending Clinician Unavailable Marisol Vaz MD Attending Clinician Vanessa GOTTLIEB Attending Clinician Pollo GRUBBS N Attending Clinician Denzelu_P Attending Clinician Unavailable Raju_P Admitting Clinician Unavailable Payers Payer Name Policy Type Policy Number Effective Date Expiration Date Kris acosta [facility] [id number] 2019 00:00:00 Problems Condition Condition Condition Status Onset Resolution Last Treating Co mments Source Name Details Category Date Date Treatment Clinician Date Disease Active Uni vers with with 2-11 ity of inconclusi [place]clus[place] Med[place] viability, viability, Br anch single or single or unspecifie unspecifie d fetus d fetus S/P S/P Disease Active Univers 9- ity of 00:00: [place] 00 Medical Branch COVID-19 COVID-19 Disease Active Unive rs virus IgG virus IgG 8-18 ity of antibody antibody 00:00: [place] detected detected 00 Medica l Branch Marijuana Marijuana Disease Active Uni vers use use 1-19 ity of 00:00: [place] 00 [facility] Branch Thyroid Thyroid Disease Active Overview: Univ ers hormone hormone 7-15 Formattin ity o f resistance resistance 00:00: g of this [place] syndrome syndrome 00 note Medica l might be Branch different from the original. Please see scanned labs for genetic report 03/02/19. Has Autosomal dominant THR syndrome Thyroid Thyroid Disease Active Univers nodule nodule 02-14 ity of 00:00: [place] [facility] Branch Asthma Asthma Disease Active Overview: Univer s affecting affecting 2-16 Formattin i ty of 00:00: [place] in third in third 00 note Medica l trimester trimester might be Br anch different from the original. Dx at age 6-7. 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 Bipolar- since age 16-17 with suicidal attempt with conflict with mom. Trial of antidepre ssant and stopped med due to thyroid med problem. No med last 2 years.. Cannot control anger. No manic state. History of History of Disease Active Overview : Univers seizures seizures 2-16 Formattin ity of 00:00: g of this [place] note Medical might be Branch different from the original. Childhood x 1 episiode Allergies, Adverse Reactions, Alerts Allergy Allergy Status Severity Reaction(s) Onset Inactive Treating Comm ents Source Name Type Date Date Clinician Penicill Propensi Active Nausea 2020-08 Univer s in ty to and/or 0-06 ity of adverse Vomiting 00:00: [place] reaction 00 Medical s Branch PENICILL DRUG Active High N/V 2020-08 Univers IN INGREDI 0-06 ity of 00:00: [place] [facility] Prometha Propensi Active Itching 2019-0 Itching Univ ers zine Hcl ty to 09-02 and hives ity o f adverse 00:00: [place] reaction 00 Medical s Branch PROMETHA DRUG Active ITCHING 2019- Univers ZINE HCL INGREDI 09-02 ity of 00:00: [place] [facility] Adhesive Propensi Active Rash 2016-0 Univer s Tape-Lolly ty to 3-08 ity of icones adverse 00:00: [place] reaction 00 Medical s Branch ADHESIVE DRUG Active Rash 2015- Univers TAPE-LOLLY 3-08 ity of ICONES 00:00: [place] 00 Medical Branch Hydrocod Drug Active Itching 2011- itching Univer s one Allergy 03-29 ity of 00:00: [place] 00 Medical Branch HYDROCOD DRUG Active Low Rash 2011- Univers ONE INGREDI 03-29 ity of 00:00: [place] 00 [facility] Social History Social Habit Start Date Stop Date Quantity Comments Source ASSERTION 2021-08-01 University of 00:00:00 [facility] Exposure to Not sure [place] of SARS-CoV-2 (event) [facility] Alcohol intake 2021-09-13 2021-09-13 0 /d University of 00:00:00 00:00:00 [facility] Cigarettes smoked 2021-08-30 2021-08-30 Univers ity of current (pack per 00:00:00 00:00:00 ) - Reported [place] Cigarette 2021-08-30 2021-08-30 University of pack-years 00:00:00 00:00:00 [facility] Tobacco use and 2021-08-30 2021-08-30 Never used Universit y of exposure 00:00:00 00:00:00 [facility] Tobacco Comment 2021-08-30 2021-08-30 2-3 cig /day Univers ity of 00:00:00 00:00:00 [facility] History of tobacco 2020-08-14 Smoker Univer sity of use 00:00:00 [facility] Sex [birth year] At [birth year] Universit y of 00:00:00 00:00:00 [facility] Smoking Status Start Date Stop Date Source Current every day 2021-08-30 00:00:00 [facility] smoker [facility] Former smoker 2017-07-02 00:00:00 2017-07-02 00:00:00 [facility] Medications Ordered Filled Start Stop Current Ordering Indication Dosage Frequency Signature Comments Components Source Medication Medication Date Date Medication? Clinician (SIG) Name Name [facility] everettaminoph Yes Take by Un mohamud en (TYLENOL 2-11 mouth. ity of ORAL) 11:54: [address] acetaminoph Yes Take by Un mohamud en (TYLENOL 2-11 mouth. ity of ORAL) 11:54: [address] acetaminoph Yes Take by Un mohamud en (TYLENOL 2-11 mouth. ity of ORAL) 11:54: [address] acetaminoph Yes Take by Un m[place]amud en (TYLENOL 2-11 mouth. ity of ORAL) 11:54: [address] acetaminoph Yes Take by Un mohamud en (TYLENOL 2-11 mouth. ity of ORAL) 11:54: [address] PNV Yes [id number] Take 1 Univers 102-iron-fo -28 TAB-CAP/M2 it y of 00:00: by mouth [place] (VITAFOL FE 00 daily. Medica l PLUS) 90 mg Branch iron- 1 mg-200 mg Cap PNV 2021- No [id number] Take 1 Univer s 102-iron-fo -28 02-11 TAB-CAP/M2 i ty of 00:00: 00:[place] (VITAFOL FE 00 :00 daily. Medica l PLUS) 90 mg Branch iron- 1 mg-200 mg Cap ondansetron Yes [id number] 4mg Take 1 Univers 4 mg 1-27 tablet by ity of disintegrat 00:00: mouth [place] ing tablet 00 every 8 Medica l (eight) Branch hours as needed for Nausea and Vomiting (N/V) or N/V alternatin g with Promethazi ne. ondansetron 2021- No [id number] 4mg Take 1 Univers 4 mg 08-29 tablet by ity of disintegrat 00:00: 00:00 [place] tablet 00 :00 every 8 Medica l (eight) Branch hours as needed for Nausea and Vomiting (N/V) or N/V alternatin g with Promethazi ne. amoxicillin 2020-08 Yes Univer s 400 mg/5 mL 08-25 ity of oral 00:00: [place] suspension 00 Medical Branch amoxicillin 2020-08- No Unive rs 400 mg/5 mL 08-25 ity of oral 00:00: 00:00 [place] suspension 00 :00 Medical Branch fluticasone 2020-08 Yes [id number] 1{puff} Inhale 1 Univers propion-ina 1-22 Puff every it y of meteroL 00:00: 12 [place] (ADVAIR (twelve) Medical DISKUS) hours. Branch 250-50 mcg/dose inhalation disk fluticasone 2020-08 Yes [id number] 1{puff} Inhale 1 Univers propion-ina 1-22 Puff every it y of meteroL 00:00: 12 [place] (ADVAIR () Medical DISKUS) hours. Branch 250-50 mcg/dose inhalation disk fluticasone 2020-08 Yes [id number] 1{puff} Inhale 1 Univers propion-ina 1-22 Puff every it y of meteroL 00:00: 12 [place] (ADVAIR () Medical DISKUS) hours. Branch 250-50 mcg/dose inhalation disk fluticasone 2020-08 Yes [id number] 1{puff} Inhale 1 Univers propion-ina 1-22 Puff every it y of meteroL 00:00: 12 [place] (ADVAIR (twelve) Medical DISKUS) hours. Branch 250-50 mcg/dose inhalation disk fluticasone 2020-08 Yes [id number] 1{puff} Inhale 1 Univers propion-ina 1-22 Puff every it y of meteroL 00:00: 12 [place] (ADVAIR (twelve) Medical DISKUS) hours. Branch 250-50 mcg/dose inhalation disk fluticasone 2020-08 Yes [id number] 1{puff} Inhale 1 Univers propion-ina 1-22 Puff every it y of meteroL 00:00: 12 [place] (ADVAIR 00 (twelve) Medical DISKUS) hours. Branch 250-50 mcg/dose inhalation disk fluticasone 2020-08 Yes [id number] 1{puff} Inhale 1 Univers propion-ina 1-22 Puff every it y of meteroL 00:00: 12 [place] (ADVAIR 00 (twelve) Medical DISKUS) hours. Branch 250-50 mcg/dose inhalation disk famotidine 2020-08 Yes Univers 40 mg/5 mL 1-13 ity of (8 mg/mL) 00:00: [place] suspension 00 Medical Branch famotidine 2020-08 Yes Univers 40 mg/5 mL 1-13 ity of (8 mg/mL) 00:00: [place] suspension 00 Medical Branch famotidine 2020-08 Yes Univers 40 mg/5 mL 1-13 ity of (8 mg/mL) 00:00: [place] suspension 00 Medical Branch famotidine 2020-08- No Univer s 40 mg/5 mL 1-13 02-11 ity of (8 mg/mL) 00:00: 00:00 [place] suspension 00 :00 Medical Branch SERTRALINE 2020-08- No [id number] 50mg TAKE 1 Univers 50 mg 08-03 TABLET BY ity of tablet 00:00: 05:59 MOUTH [place] 00 :00 DAILY FOR Medical 45 DAYS. Branch SERTRALINE 2020-08- No [id number] 50mg TAKE 1 Univers 50 mg 08-03 TABLET BY ity of tablet 00:00: 05:59 MOUTH [place] 00 :00 DAILY FOR Medical 45 DAYS. Branch cetirizine 2020-08 Yes [id number] 10mg Take 1 U nivers (ZYRTEC) 10 0-06 tablet by ity of mg tablet 00:00: mouth [place] 00 daily. Medical Branch fluticasone 2020-08 Yes [id number] 1{spray Use 1 Univers propionate 0-06 } [place] in ity o f 50 00:00: each [place] mcg/actuati 00 nostril Medic al on nasal daily. Branch spray azelastine 2020-08 Yes [id number] 1{spray Use 1 Univers 137 mcg 0-06 } [place] in ity of (0.1 %) 00:00: each [place] nasal spray 00 nostril 2 Med ical (two) Branch times daily. Use in each nostril as directed albuterol 2020-08 Yes [id number] 2{puff} Inhale 2 Univers 90 0-06 Puffs ity of mcg/actuati 00:00: every 6 [place] on inhaler 00 (six) Medical hours as Branch needed for Wheezing or Shortness of Breath. cetirizine 2020-08 Yes [id number] 10mg Take 1 U nivers (ZYRTEC) 10 0-06 tablet by ity of mg tablet 00:00: mouth [place] 00 daily. Medical Branch fluticasone 2020-08 Yes [id number] 1{spray Use 1 Univers propionate 0-06 } [place] in ity o f 50 00:00: each [place] mcg/actuati 00 nostril Medic al on nasal daily. Branch spray azelastine 2020-08 Yes [id number] 1{spray Use 1 Univers 137 mcg 0-06 } [place] in ity of (0.1 %) 00:00: each [place] nasal spray 00 nostril 2 Med ical (two) Branch times daily. Use in each nostril as directed albuterol 2020-08 Yes [id number] 2{puff} Inhale 2 Univers 90 0-06 Puffs ity of mcg/actuati 00:00: every 6 [place] on inhaler 00 (six) Medical hours as Branch needed for Wheezing or Shortness of Breath. cetirizine 2020-08 Yes [id number] 10mg Take 1 U nivers (ZYRTEC) 10 0-06 tablet by ity of mg tablet 00:00: mouth [place] 00 daily. Medical Branch fluticasone 2020-08 Yes [id number] 1{spray Use 1 Univers propionate 0-06 } [place] in ity o f 50 00:00: each [place] mcg/actuati 00 nostril Medic al on nasal daily. Branch spray azelastine 2020-08 Yes [id number] 1{spray Use 1 Univers 137 mcg 0-06 } [place] in ity of (0.1 %) 00:00: each [place] nasal spray 00 nostril 2 Med ical (two) Branch times daily. Use in each nostril as directed albuterol 2020-08 Yes [id number] 2{puff} Inhale 2 Univers 90 0-06 Puffs ity of mcg/actuati 00:00: every 6 [place] on inhaler 00 (six) Medical hours as Branch needed for Wheezing or Shortness of Breath. cetirizine 2020-08 Yes [id number] 10mg Take 1 U nivers (ZYRTEC) 10 0-06 tablet by ity of mg tablet 00:00: mouth [place] 00 daily. Medical Branch fluticasone 2020-08 Yes [id number] 1{spray Use 1 Univers propionate 0-06 } [place] in ity o f 50 00:00: each [place] mcg/actuati 00 nostril Medic al on nasal daily. Branch spray azelastine 2020-08 Yes [id number] 1{spray Use 1 Univers 137 mcg 0-06 } [place] in ity of (0.1 %) 00:00: each [place] nasal spray 00 nostril 2 Med ical (two) Branch times daily. Use in each nostril as directed albuterol 2020-08 Yes [id number] 2{puff} Inhale 2 Univers 90 0-06 Puffs ity of mcg/actuati 00:00: every 6 [place] on inhaler 00 (six) Medical hours as Branch needed for Wheezing or Shortness of Breath. cetirizine 2020-08 Yes [id number] 10mg Take 1 U nivers (ZYRTEC) 10 0-06 tablet by ity of mg tablet 00:00: mouth [place] 00 daily. Medical Branch fluticasone 2020-08 Yes [id number] 1{spray Use 1 Univers propionate 0-06 } [place] in ity o f 50 00:00: each [place] mcg/actuati 00 nostril Medic al on nasal daily. Branch spray azelastine 2020-08 Yes [id number] 1{spray Use 1 Univers 137 mcg 0-06 } [place] in ity of (0.1 %) 00:00: each [place] nasal spray 00 nostril 2 Med ical (two) Branch times daily. Use in each nostril as directed albuterol 2020-08 Yes [id number] 2{puff} Inhale 2 Univers 90 0-06 Puffs ity of mcg/actuati 00:00: every 6 [place] on inhaler 00 (six) Medical hours as Branch needed for Wheezing or Shortness of Breath. cetirizine 2020-08 Yes [id number] 10mg Take 1 U nivers (ZYRTEC) 10 0-06 tablet by ity of mg tablet 00:00: mouth [place] 00 daily. Medical Branch fluticasone 2020-08 Yes [id number] 1{spray Use 1 Univers propionate 0-06 } [place] in ity o f 50 00:00: each [place] mcg/actuati 00 nostril Medic al on nasal daily. Branch spray azelastine 2020-08 Yes [id number] 1{spray Use 1 Univers 137 mcg 0-06 } [place] in ity of (0.1 %) 00:00: each [place] nasal spray 00 nostril 2 Med ical (two) Branch times daily. Use in each nostril as directed albuterol 2020-08 Yes [id number] 2{puff} Inhale 2 Univers 90 0-06 Puffs ity of mcg/actuati 00:00: every 6 [place] on inhaler 00 (six) Medical hours as Branch needed for Wheezing or Shortness of Breath. cetirizine 2020-08 Yes [id number] 10mg Take 1 U nivers (ZYRTEC) 10 0-06 tablet by ity of mg tablet 00:00: mouth [place] 00 daily. Medical Branch fluticasone 2020-08 Yes [id number] 1{spray Use 1 Univers propionate 0-06 } [place] in ity o f 50 00:00: each [place] mcg/actuati 00 nostril Medic al on nasal daily. Branch spray azelastine 2020-08 Yes [id number] 1{spray Use 1 Univers 137 mcg 0-06 } [place] in ity of (0.1 %) 00:00: each [place] nasal spray 00 nostril 2 Med ical (two) Branch times daily. Use in each nostril as directed albuterol 2020-08 Yes [id number] 2{puff} Inhale 2 Univers 90 0-06 Puffs ity of mcg/actuati 00:00: every 6 [place] on inhaler 00 (six) Medical hours as Branch needed for Wheezing or Shortness of Breath. Yes [id number] 1{tbl} Take 1 Univers vitamin 8-31 tablet by ity of w/FA tablet 00:00: mouth [place] 00 daily. Medical Branch Yes [id number] 1{tbl} Take 1 Univers vitamin 8-31 tablet by ity of w/FA tablet 00:00: mouth [place] 00 daily. Medical Branch 0 Yes [id number] 1{tbl} Take 1 Univers vitamin 8-31 tablet by ity of w/FA tablet 00:00: mouth [place] 00 daily. Medical Branch 0 2022- No [id number] 1{tbl} Take 1 Univers vitamin 8-31 02-11 tablet by ity of w/FA tablet 00:00: 00:00 [place] 00 :00 daily. [facility] Immunizations Ordered Filled Immunization Date Status Comments [facility] e Immunization Name Name TDAP 2021-01-29 Completed University of 00:00:00 [facility] TDAP 2021-01-29 Completed University of 00:00:00 [facility] TDAP 2021-01-29 Completed University of 00:00:00 [facility] TDAP 2021-01-29 Completed University of 00:00:00 [facility] TDAP 2021-01-29 Completed University of 00:00:00 [facility] TDAP 2021-01-29 Completed University of 00:00:00 [facility] TDAP 2021-01-29 Completed University of 00:00:00 [facility] Influenza Virus 2018-09-27 Completed Universit y of Vaccine Quad .5 mL 00:00:00 [facility] 6+ MO Branch Influenza Virus 2018-09-27 Completed Universit y of Vaccine [place] .5 mL 00:00:00 [facility] 6+ MO Branch Influenza Virus 2018-09-27 Completed Universit y of Vaccine Quad .5 mL 00:00:[address] [facility] [place] IM 6+ MO Branch Influenza Virus 2018-09-27 Completed Universit y of Vaccine [place] .5 mL 00:00:[address] [facility] [place] IM 6+ MO Branch Influenza Virus 2018-09-27 Completed Universit y of Vaccine [place] .5 mL 00:00:[address] [facility] [place] IM 6+ MO Branch Influenza Virus 2018-09-27 Completed Universit y of Vaccine [place] .5 mL 00:00:[address] [facility] [place] IM 6+ MO Branch Influenza Virus 2018-09-27 Completed Universit y of Vaccine Quad .5 mL 00:00:00 [facility] 6+ MO Branch Influenza Virus 2016-10-20 Completed Universit y of Vaccine Quad IM 3+ 00:00:00 [facility] Influenza Virus 2016-10-20 Completed Universit y of Vaccine Quad IM 3+ 00:00:00 [facility] Influenza Virus 2016-10-20 Completed Universit y of Vaccine Quad IM 3+ 00:00:00 [facility] Influenza Virus 2016-10-20 Completed Universit y of Vaccine Quad IM 3+ 00:00:00 [facility] Influenza Virus 2016-10-20 Completed Universit y of Vaccine Quad IM 3+ 00:00:00 [facility] Influenza Virus 2016-10-20 Completed Universit y of Vaccine Quad IM 3+ 00:00:00 [facility] Influenza Virus 2016-10-20 Completed Universit y of Vaccine Quad IM 3+ 00:00:00 [facility] TDAP 2015-01-29 Completed University of 00:00:00 [facility] TDAP 2015-01-29 Completed University of 00:00:00 [facility] TDAP 2015-01-29 Completed University of 00:00:00 [facility] TDAP 2015-01-29 Completed University of 00:00:00 [facility] TDAP 2015-01-29 Completed University of 00:00:00 [facility] TDAP 2015-01-29 Completed University of 00:00:00 [facility] TDAP 2015-01-29 Completed University of 00:00:00 [facility] HPV 2010-07-05 Completed University of 00:00:00 [facility] Influenza Virus 2010-07-05 Completed Universit y of Vaccine - Whole 00:00:00 [facility] HPV 2010-07-05 Completed University of 00:00:00 [facility] Influenza Virus 2010-07-05 Completed Universit y of Vaccine - Whole 00:00:00 [facility] HPV 2010-07-05 Completed University of 00:00:00 [facility] Influenza Virus 2010-07-05 Completed Universit y of Vaccine - Whole 00:00:00 [facility] HPV 2010-07-05 Completed University of 00:00:00 [facility] Influenza Virus 2010-07-05 Completed Universit y of Vaccine - Whole 00:00:00 [facility] HPV 2010-07-05 Completed University of 00:00:00 [facility] Influenza Virus 2010-07-05 Completed Universit y of Vaccine - Whole 00:00:00 [facility] HPV 2010-07-05 Completed University of 00:00:00 [facility] Influenza Virus 2010-07-05 Completed Universit y of Vaccine - Whole 00:00:00 [facility] HPV 2010-07-05 Completed University of 00:00:00 [facility] Influenza Virus 2010-07-05 Completed Universit y of Vaccine - Whole 00:00:00 [facility] HPV 2010-02-12 Completed University of 00:00:[address] [facility] [place] Branch HPV 2010-02-12 Completed University of 00:00:[address] [facility] [place] Branch HPV 2010-02-12 Completed University of 00:00:[address] [facility] [place] Branch HPV 2010-02-12 Completed University of 00:00:[address] [facility] [place] Branch HPV 2010-02-12 Completed University of 00:00:[address] [facility] [place] Branch HPV 2010-02-12 Completed University of 00:00:[address] [facility] [place] Branch HPV 2010-02-12 Completed University of 00:00:00 [facility] HPV 2009-12-14 Completed University of 00:00:00 [facility] HPV 2009-12-14 Completed University of 00:00:[address] [facility] [place] Branch HPV 2009-12-14 Completed University of 00:00:[address] [facility] [place] Branch HPV 2009-12-14 Completed University of 00:00:[address] [facility] [place] Branch HPV 2009-12-14 Completed University of 00:00:00 [facility] HPV 2009-12-14 Completed University of 00:00:00 [facility] HPV 2009-12-14 Completed University of 00:00:00 [facility] Vital Signs Vital Name Observation Time Observation Value Comments Source Systolic blood 2021-09-13 17:53:00 109 mm[Hg] Univer sity of pressure [facility] Diastolic blood 2021-09-13 17:53:00 75 mm[Hg] Unive rsity of pressure [facility] Heart rate 2021-09-13 17:53:00 76 /min [facility] Body temperature 2021-09-13 17:53:[address] [facility] Res[facility] rate 2021-09-13 17:53:00 20 /min [facility] Body height 2021-09-13 17:53:00 162.6 cm [facility] Body weight 2021-09-13 17:53:00 83.575 kg [facility] BMI 2021-09-13 17:53:00 31.63 kg/m2 Universi [facility] [place] [facility] Systolic blood 2021-08-27 19:18:00 126 mm[Hg] Univer sity of pressure [facility] Diastolic blood 2021-08-27 19:18:00 75 mm[Hg] Unive rsity of pressure [facility] Heart rate 2021-08-27 19:18:00 91 /min [facility] Body height 2021-08-27 19:18:00 162.6 cm [facility] Body weight 2021-08-27 19:18:00 83.598 kg [facility] BMI 2021-08-27 19:18:00 31.64 kg/m2 [facility] Oxygen saturation in 2021-08-27 19:18:00 97 /min [facility] Arterial blood by [facility] Pulse oximetry Branch Procedures Procedure Date / Time Performing Clinician Source Performed US OB TRANSVAGINAL 2021-09-13 18:37:27 Rebekah Vaz [facility] POCT URINALYSIS W/O 2021-09-13 00:00:00 Rebekah Vaz [facility] Encounters Start End Encounter Admission Attending Care Care Encounter Source Date/Time Date/Time Type Type Clinicians Facility Department ID 2021-10-02 2021-10-02 Outpatient R REBEKAH VAZ [facility] [id number] Univers 14:00:00 14:00:00 [id number] [facility] 2021-10-02 2021-10-02 Outpatient R REBEKAH VAZ [facility] [id number] Univers 14:00:00 14:00:00 [facility] 2021-10-01 2021-10-01 Outpatient R VANESSA [facility] [id number] Univers 12:30:00 12:30:00 WENTONG [facility] 2021-10-01 2021-10-01 Outpatient [facility] [id number] Univers 12:30:00 12:30:00 [id number] [facility] 2021-09-[facility] 2021-09-30 Outpatient R [facility] [id number] Univers 17:00:00 17:00:00 [id number] ity [facility] 2021-09-30 2021-09-30 Outpatient R GABI, [facility] [id number] Univers 17:00:00 17:00:00 SHILA ity [facility] 2021-09-28 2021-09-28 Outpatient R KARLA ALLISON, [facility] [id number] Univers 09:20:00 09:35:47 VERNON ity [facility] 2021-09-28 2021-09-28 Outpatient R [facility] [id number] Univers 09:20:00 09:20:00 [id number] ity [facility] 2021-09-27 2021-09-27 Outpatient R REBEKAH VAZ [facility] [id number] Univers 12:30:00 12:30:00 [id number] ity [facility] 2021-09-27 2021-09-27 Outpatient R REBEKAH VAZ [facility] [id number] Univers 12:30:00 12:30:00 ity [facility] 2021-09-27 2021-09-27 Telephone Татьяна [facility] [id number] Univers 00:00:00 00:00:00 Marisol TAYLOR [id number] it y of W[place]'S [id number] [place] [facility] [id number] [address] 2021-09-20 2021-09-20 Telephone Rebekah Vaz [facility] [id number] Univers 00:00:00 00:00:00 Marisol TAYLOR [id number] it y of [id number] [id number] [address] 2021-09-14 2021-09-14 Patient Vanessa [facility] [id number] Univers 00:00:00 00:00:00 Secure [facility] [id number] ity of [place] [id number] Marty as ROSAS?BLEA [phone] [place] MYERS [address] [place] [address] MEDICAL OFFICE BUILDING 2021-09-13 2021-09-13 Outpatient R REEBKAH VAZ [facility] [id number] Univers 11:15:00 12:08:16 ity of [facility] 2021-09-13 2021-09-13 Routine Rebekah Vaz [facility] [id number] Univers 11:15:00 12:08:16 Marisol CLAUDIA [id number] i ty of [id number] [id number] [address] 2021-09-13 2021-09-13 Letter Rebekah Vaz [facility] [id number] Univers 00:00:00 00:00:00 (Out) Marisol CLAUDIA [id number] it y [id number] [id number] [address] 2021-09-04 2021-09-04 Outpatient R ТАТЬЯНА [facility] [id number] Univers 15:00:00 15:00:00 ity of [facility] 2021-09-02 2021-09-02 Outpatient R GABI [facility] [id number] Univers 09:45:00 09:45:00 [facility] 2021-09-02 2021-09-02 Outpatient R VANESSA [facility] [id number] Univers 00:00:00 00:00:00 [facility] 2021-08-30 2021-08-30 Outpatient R [facility] [id number] Univers 17:00:00 17:00:00 [id number] ity [facility] 2021-08-27 2021-08-27 [facility] [id number] Univers 13:00:00 14:05:18 Visit [facility] [id number] it y of [place] [id number] Marty as ROSAS?BLEA [id number] [place] [address] MEDICAL OFFICE BUILDING 2021-08-27 2021-08-27 Outpatient R VANESSA [facility] [id number] Univers 13:00:00 14:05:18 [facility] 2020-11-07 2020-11-07 Routine [facility] [id number] 10:03:48 10:53:52 Opal N [employer] [id number] Visit REGIONAL [id number] MATERNAL [id number] & CHILD [address] [place] [address] 2019-10-28 2019-10-28 Outpatient Raju_P [facility] [id number] [place] 02:06:00 02:06:00 [id number] [facility] Results Test Description Test Time Test Comments Results Result Comments Source POCT URINALYSIS W/O SPECIFIC GRAVITY 2021-09-13 17:47:00 Test Item Value Reference Range Interpretation Comme nts POCT PH U (test code = 3254) n/a 5-8 POCT U LEUK EST (test code = 3263) n/a Negative - Negative POCT U NIT (test code = 3262) n/a Negative - Negative POCT U PROT (test code = 3259) negative Negative - Negative POCT U GLU (test code = 3256) negative Negative - Negative POCT U KETONE (test code = 3258) n.a Negative - Negative POCT U BLD (test code = 3257) n/a Negative - Negative [facility]
[2021-10-04] MEDS ORDERED: ONDANSETRON 4 MG/2 ML VIAL ONE (16:04)
[2021-10-04] MEDS ORDERED: NA CHLORIDE 0.9% 1,000 ML ONE (16:04)
[2021-10-04] MEDS ORDERED: MORPHINE 4 MG/ML SYR ONE ×2 (16:04→17:07)
[2021-10-04 16:21] LABS: Absolute Lymphocytes (CBC) 1.1 K/uL (0.7-4.9); Hematocrit 34.8 % (36.0-45.0); Lymphocytes % 11.2 % (15.3-44.8); MPV 8.9 fL (7.6-11.3); RBC Red Blood Cell Count 4.98 M/uL (3.86-4.86)
[2021-10-04 16:41] LABS: BUN Blood Urea Nitrogen 13 mg/dL (7-18); Bicarbonate 25 mmol/L (21-32); Glucose Level 112 mg/dL (74-106); Sodium Level 138 mmol/L (136-145)
[2021-10-04 16:57] LABS: HCG, Quantitative 4519 mIU/mL (1-3)
[2021-10-04 17:02] LABS: Blood Morphology Comment NOTED (NOT SEEN); Platelet Estimate ADEQ; White Blood Cell Scan OK (OK)
--- NOTE | 2021-10-04 17:13 | RAD REPORT ---
EXAM DESCRIPTION: US - Transvaginal Study Probe - 10/04/2021 4:58 pm CLINICAL HISTORY: Abdominal pain/vaginal bleeding COMPARISON: none FINDINGS: The uterus measures 10 x 4 x 5cm. A fibroid is not seen. Endometrial stripe measures 9 mil limeters. A gestational sac is not seen. Small nabothian cysts within the cervix. Uterus is retroverted The ovaries are normal in size and echotexture. The right and left at adnexa unremarkable. No significant free fluid is seen. IMPRESSION: If the patient is beta HCG positive then this may indicate an . Other considerat ions include an early intrauterine in which the gestational sac is not seen or even ectopic . This all should be correlated clinically and with serial beta HCG levels. Followup endovaginal sonogr am in 1 week may be helpful
[2021-10-04] MEDS ORDERED: METHYLERGONOVINE 0.2MG/ML AMP IM ONE (18:01)
[2021-10-04 18:27] LABS: Urine Blood 3+ (Negative); Urine Glucose Negative (Negative); Urine Protein Trace (Negative)
--- NOTE | 2021-10-04 18:53 | EDPHYS ---
Physician Documentation [facility] Name: Deborah Torres Age: 26 yrs Sex: Female : 1995 Arrival Date: 10/04/2021 Time: 15:37 Bed 25 Private MD: ED Physician Shawn Pollard HPI: 10/04 15:44 This 26 yrs old Female presents to ER via Unassigned with complaints of Vaginal cp Bleeding. 15:44 The patient presents to the emergency department with abdominal pain, of the right cp lower quadrant and left lower quadrant, that started today, vaginal bleeding, with clots, with tissue. 15:44 course: care: private OB physician, Dr. Griffith, Ultrasound: the patient cp had an ultrasound. 15:44 Associated signs and symptoms: Pertinent positives: abdominal pain, vaginal bleeding, cp Pertinent negatives: chest pain, dysuria, fever, vomiting. 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 - Social history:: Smoking status: Patient denies any tobacco usage or history of. ROS: 15:50 Constitutional: Negative for body aches, chills, fever, poor PO intake. cp 15:50 Abdomen/GI: Positive for abdominal pain, Negative for vomiting, diarrhea, constipation. cp 15:50 : Positive for vaginal bleeding. 15:50 Eyes: Negative for injury, pain, redness, and discharge. cp 15:50 Cardiovascular: Negative for chest pain, palpitations. 15:50 Respiratory: Negative for cough, shortness of breath, wheezing. 15:50 Neuro: Negative for altered mental status, headache, numbness, weakness. 15:50 All other systems are negative. Exam: 15:55 Constitutional: The patient appears in no acute distress, alert, awake, non-toxic, well cp developed, well nourished, uncomfortable. 15:55 Head/Face: Normocephalic, atraumatic. cp 15:55 Eyes: Periorbital structures: appear normal, Conjunctiva: normal, no exudate, no injection, Sclera: no appreciated abnormality, Lids and lashes: appear normal, bilaterally. 15:55 ENT: External ear(s): are unremarkable, Nose: is normal, Mouth: Lips: moist, Oral mucosa: moist, Posterior pharynx: Airway: no evidence of obstruction, patent. 15:55 Chest/axilla: Inspection: normal, Palpation: is normal, no crepitus, no tenderness. 15:55 Cardiovascular: Rate: tachycardic, Rhythm: regular. 15:55 Respiratory: the patient does not display signs of respiratory distress, Respirations: normal, no use of accessory muscles, no retractions, labored breathing, is not present, Breath sounds: are clear throughout, no decreased breath sounds, no stridor, no wheezing. 15:55 Abdomen/GI: Inspection: abdomen appears normal, Bowel sounds: active, all quadrants, Palpation: soft, in all quadrants, severe abdominal tenderness, in the suprapubic area, rebound tenderness, is not appreciated, voluntary guarding, is elicited in the suprapubic area. 15:55 Back: CVA tenderness, is absent. 15:55 Neuro: Orientation: to person, place \T\ time. Mentation: is normal. 18:30 : Pelvic Exam: External exam: is normal, Speculum exam: mild bleeding, os that is cp closed, no tissue in cervix is seen, no tissue in vagina is seen, discharge, bloody, the nurse was present for the exam. Vital Signs: 15:47 BP 111 / 83; Pulse 101; Resp 20; Temp 98.3; Pulse Ox 100% ; Weight 84.37 kg; Height 5 enrique ft. 4 in. (162.56 cm); 19:19 BP 120 / 77; Pulse 96; Resp 18; Pulse Ox 99% on R/A; ab2 15:47 Body Mass Index 31.93 (84.37 kg, 162.56 cm) enrique MDM: 15:40 Patient medically screened. emilie 16:00 Differential diagnosis: threatened Ab, inevitable Ab, complete Ab, retained Ab. cp 18:53 Data reviewed: vital signs, nurses notes, lab test result(s), radiologic studies, cp ultrasound. 18:53 Counseling: I had a detailed discussion with the patient and/or guardian regarding: the cp historical points, exam findings, and any diagnostic results supporting the discharge/admit diagnosis, lab results, radiology results, the need for outpatient follow up, an OB/Gyne specialist, to return to the emergency department if symptoms worsen or persist or if there are any questions or concerns that arise at home. Response to treatment: the patient's symptoms have markedly improved after treatment, and as a result, I will discharge patient. 10/04 15:42 Order name: Abo/rh Typing; Complete Time: 17:01 10/04 15:42 Order name: Basic Metabolic Panel; Complete Time: 17:01 10/04 17:01 Interpretation: Normal except: GLUC 112. 10/04 15:42 Order name: CBC with Diff; Complete Time: 17:15 10/04 16:27 Interpretation: Normal except: RBC 4.98; HGB 11.4; HCT 34.8; MCV 69.9; MCH 23.0; RDW cp 17.6; MARYAN% 82.4; LYM% 11.2; NEUT A 8.2. 03 15:42 Order name: Quantitative Hcg; Complete Time: 17:01 10/04 17:02 Interpretation: Abnormal: HCGQ 4519. cp 10/04 17:02 Order name: CBC Smear Scan; Complete Time: 17:15 [facility] 10/04 18:27 Order name: Urine Dipstick-Ancillary; Complete Time: 18:49 [facility] 10/04 16:57 Order name: Transvaginal Study Probe; Complete Time: 17:15 [facility] 10/04 15:42 Order name: IV Saline Lock; Complete Time: 16:03 10/04 15:42 Order name: Labs collected and sent; Complete Time: 16:03 10/04 15:42 Order name: NPO; Complete Time: 16:03 10/04 15:42 Order name: Urine Dipstick-Ancillary (obtain specimen); Complete Time: 18:34 10/04 15:42 Order name: Urine Test (obtain specimen); Complete Time: 18:34 10/04 17:19 Order name: Pelvic Exam Setup cp Administered Medications: 16:03 Drug: morphine 2 mg Route: IVP; Site: left antecubital; enrique 16:03 Drug: Zofran (Ondansetron) 4 mg Route: IVP; Site: left antecubital; enrique 16:06 Follow up: Response: No adverse reaction enrique 16:04 Drug: NS 0.9% 1000 ml Route: IV; Rate: 1 bolus; Site: left antecubital; enrique 16:06 Drug: morphine 2 mg Route: IVP; Site: left antecubital; enrique 17:16 Follow up: Response: No adverse reaction enrique 18:05 Drug: METHERgine 0.2 mg Route: IM; Site: left gluteus; enrique 18:28 Follow up: Response: No adverse reaction enrique 19:19 Drug: Tylenol #3 (300 mg-30 mg) 2 tabs Route: PO; ab2 Disposition Summary: 10/04/21 18:53 Discharge Ordered Location: Home cp Problem: new cp Symptoms: have improved cp Condition: Stable cp Diagnosis - Complete or unspecified spontaneous without complication cp Followup: cp - With: Private Physician - When: 2 - 3 days - Reason: Repeat Beta-HCG (48 Hours) Discharge Instructions: - Discharge Summary Sheet cp - Miscarriage cp - Recurrent Loss cp Forms: - Medication Reconciliation Form cp - Thank You Letter cp - Antibiotic Education cp - Prescription Opioid Use cp - Work release form Prescriptions: - Tylenol-Codeine #3 300 mg-30 mg Oral - take 2 tablet by ORAL route every 8 hours; 15 tablet; Refills: 0, Product cp Selection Permitted - Methergine 0.2 mg Oral tablet - take 1 tablet by ORAL route every 6 hours for 2 days; 5 tablet; Refills: 0, cp Product Selection Permitted - Zofran 4 mg Oral Tablet - take 1 tablet by ORAL route every 12 hours As needed; 20 tablet; Refills: 0, cp Product Selection Permitted Signatures: Dispatcher [employer] EDShawn Dixon MD MD cha Page, Corey, PA PA cp Ida-StagerZonia RN RN Renny Pryor ab2 Corrections: (The following items were deleted from the chart) 15:49 15:48 PMHx: premature births, 2 miscarrages; enrique enrique 16:57 15:42 Transvaginal Ob+US.RAD.BRZ ordered. EDMS EDMS
--- NOTE | 2021-10-04 18:53 | ER ---
Nurse's Notes [facility] Name: Deborah Torres Age: 26 yrs Sex: Female : 1995 Arrival Date: 10/04/2021 Time: 15:37 Bed 25 Private MD: Diagnosis: Complete or unspecified spontaneous without complication Presentation: 10/04 15:47 Chief complaint: Patient states: 9 WEEKS VAGINAL BLEED. Coronavirus screen: Vaccine status: Patient reports being unvaccinated. Ebola Screen: Patient denies travel to an Ebola-affected area in the 21 days before illness onset. Initial Sepsis Screen: Does the patient meet any 2 criteria? No. Patient's initial sepsis screen is negative. Does the patient have a suspected source of infection? No. Patient's initial sepsis screen is negative. Risk Assessment: Do you want to hurt yourself or someone else? Patient reports no desire to harm self or others. Onset of symptoms was October 04, 2021. 15:47 Method Of Arrival: EMS: [facility] 15:47 Acuity: NORM 3 enrique Triage Assessment: 15:48 General: Appears uncomfortable, Behavior is anxious, crying. Pain: Complains of pain in enrique abdomen. 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 - Social history:: Smoking status: Patient denies any tobacco usage or history of. Screenin:50 Abuse screen: Denies threats or abuse. Denies injuries from another. Nutritional enrique screening: No deficits noted. Tuberculosis screening: No symptoms or risk factors identified. Fall Risk None identified. Assessment: 15:50 General: Appears uncomfortable, Behavior is cooperative, anxious, crying. Pain: enrique Complains of pain in abdomen. : Reports vaginal bleeding that is bright red, heavy flow. Vital Signs: 15:47 BP 111 / 83; Pulse 101; Resp 20; Temp 98.3; Pulse Ox 100% ; Weight 84.37 kg; Height 5 enrique ft. 4 in. (162.56 cm); 19:19 BP 120 / 77; Pulse 96; Resp 18; Pulse Ox 99% on R/A; ab2 15:47 Body Mass Index 31.93 (84.37 kg, 162.56 cm) enrique ED Course: 15:37 Patient arrived in ED. eb 15:39 Shawn Roberts PA is PHCP. cp 15:39 Shawn Pollard MD is Attending Physician. cp 15:48 Triage completed. enrique 15:48 Arm band placed on. enrique 15:50 Patient has correct armband on for positive identification. Bed in low position. enrique 15:50 No provider procedures requiring assistance completed. enrique 16:57 Transvaginal Study Probe In Process Unspecified. EDMS 19:20 IV discontinued, intact, bleeding controlled, No redness/swelling at site. Pressure ab2 dressing applied. Administered Medications: 16:03 Drug: morphine 2 mg Route: IVP; Site: left antecubital; enrique 16:03 Drug: Zofran (Ondansetron) 4 mg Route: IVP; Site: left antecubital; enrique 16:06 Follow up: Response: No adverse reaction enrique 16:04 Drug: NS 0.9% 1000 ml Route: IV; Rate: 1 bolus; Site: left antecubital; enrique 16:06 Drug: morphine 2 mg Route: IVP; Site: left antecubital; enrique 17:16 Follow up: Response: No adverse reaction enrique 18:05 Drug: METHERgine 0.2 mg Route: IM; Site: left gluteus; enrique 18:28 Follow up: Response: No adverse reaction enrique 19:19 Drug: Tylenol #3 (300 mg-30 mg) 2 tabs Route: PO; ab2 Outcome: 18:53 Discharge ordered by . cp 19:19 Discharged to home ambulatory, with family. ab2 19:19 Condition: good 19:19 Discharge instructions given to patient, Instructed on discharge instructions, follow up and referral plans. Demonstrated understanding of instructions, follow-up care. 19:20 Patient left the ED. ab2 Signatures: Dispatcher [employer] EDMS Shawn Roberts PA PA cp Botello, Elizabeth eb Au-Stager, Heather, RN RN Renny Pryor Corrections: (The following items were deleted from the chart) 15:49 15:48 PMHx: premature births, 2 miscarrages; klaus enrique
[2021-10-04] MEDS ORDERED: CODEINE 30MG/APAP 300MG TAB ONE (19:21)
[2021-10-04 19:59] VITALS: TEMP 98.3
[2021-10-04 20:01] VITALS: BP 120/77; O2SAT 99
== END 2021-10-04 19:20 | disposition home or self-care (01) ==
LOC: ER 15:28
DX: O03.9 Complete or unspecified spontaneous abortion without complication (principal); I10 Essential (primary) hypertension; F31.9 Bipolar disorder, unspecified; Z88.0 Allergy status to penicillin; Z88.5 Allergy status to narcotic agent; Z91.048 Other nonmedicinal substance allergy status
CPT/HCPCS: 85025; 80048; 36415; 86900; 86901; 84702; 81003; 76830; 96375; 96372; 96374; 99283; J2210; J7030; J2405

== ENCOUNTER 2021-11-16 14:24 | Emergency (ER) | payer OTHER ==
--- OUTSIDE RECORDS SUMMARY | 2021-11-16 14:29 | XMS REPORT | Continuity of Care Document ---
:1995 Author Organization [facility] t Address [address] [place] [address] Care Team Providers Name Role Phone Micaela Rivera Primary Care Physician JARETT Attending Clinician Unavailable Jarett GOTTLIEB Attending Clinician Gato SOLORIO Attending Clinician MARISOL VAZ Attending Clinician Unavailable VANESSA Attending Clinician Unavailable Micaela ASHLEY Attending Clinician Unavailable Cesar ACOSTA III Attending Clinician Unavailable Marisol Vaz MD Attending Clinician Vanessa GOTTLIEB Attending Clinician Doctor Unassigned, Name Attending Clinician Unavailable Manish Osorio Attending Clinician Raju_P Attending Clinician Unavailable Raju_P Admitting Clinician Unavailable Payers Payer Name Policy Type Policy Number Effective Date Expiration Date S [facility] [id number] 2019 00:00:00 Problems Condition Condition Condition Status Onset Resolution Last Treating Co mments Source Name Details Category Date Date Treatment Clinician Date Disease Active Uni vers with with 2-11 ity of inconclusi [place] Med[place] viability, viability, Br anch single or single or unspecifie unspecifie d fetus d fetus S/P S/P Disease Active Univers 04-03 ity of 00:00: [place] 00 Medical Branch COVID-19 COVID-19 Disease Active Unive rs virus IgG virus IgG 8-18 ity of antibody antibody 00:00: [place] detected detected 00 Medica l Branch Marijuana Marijuana Disease Active Uni vers use use 1- ity of 00:00: [place] 00 Medical Branch Thyroid Thyroid Disease Active Overview: Univ ers hormone hormone 7-15 Formattin ity o f resistance resistance 00:00: 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 Please see scanned labs for genetic report 03/02/19. Has Autosomal dominant THR syndrome Thyroid Thyroid Disease Active Univers nodule nodule 02-14 ity of 00:00: [place] 00 Medical Branch Asthma Asthma Disease Active Overview: Univer s affecting affecting 2-16 Formattin i ty of 00:00: [place] in third in third 00 note Medica l trimester trimester might be Br anch different from the original. Dx at age 6-7. 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 Bipolar- since age 16-17 with suicidal attempt with conflict with mom. Trial of antidepre ssant and stopped med due to thyroid med problem. No med last 2 years.. Cannot control anger. No manic state. History of History of Disease Active Overview : Univers seizures seizures 2-16 Formattin ity of 00:00: g of this [place] note Medical might be Branch different from [...] IN INGREDI 0-06 ity of 00:00: [place] 00 Medical Branch Prometha Propensi Active Itching 2018- Itching Univ ers zine Hcl ty to 09-02 and hives ity o f adverse 00:00: [place] reaction 00 Medical s Branch PROMETHA DRUG Active ITCHING 2018- Univers ZINE HCL INGREDI 09-02 ity of 00:00: [place] 00 Medical Branch Adhesive Propensi Active Rash 2015-0 Univer s Tape-Lolly ty to 3-08 ity of icones adverse 00:00: [place] reaction 00 Medical s Branch ADHESIVE DRUG Active Rash Univers TAPE-LOLLY 3-08 ity of ICONES 00:00: [place] 00 [facility] Branch Hydrocod Drug Active Itching 2011- itching Univer s one Allergy 8-27 ity of 00:00: [place] 00 [facility] Branch HYDROCOD DRUG Active Low Rash 2011- Univers ONE INGREDI 8-27 ity of 00:00: [place] 00 [facility] Social History Social Habit Start Date Stop Date Quantity Comments Source ASSERTION 2021-08-01 [place] of 00:00:00 [facility] Exposure to Not sure University of SARS-CoV-2 (event) [facility] Alcohol intake 2021-10-28 2021-10-28 0 /d University of 00:00:00 00:00:00 [facility] Cigarettes smoked 2021-08-30 2021-08-30 Univers ity of current (pack per 00:00:00 00:00:00 ) - Reported Branch Cigarette 2021-08-30 2021-08-30 University of pack-years 00:00:00 00:00:00 [facility] Tobacco use and 2021-08-30 2021-08-30 Never used Universit y of exposure 00:00:00 00:00:00 [facility] Tobacco Comment 2021-08-30 2021-08-30 2-3 cig /day Univers ity of 00:00:00 00:00:00 [facility] History of tobacco 2020-08-14 Smoker Univer sity of use 00:00:00 [facility] Sex [birth year] Universit y of 00:00:00 00:00:00 [facility] Smoking Status Start Date Stop Date Source Current every day 2021-08-30 00:00:00 [facility] smoker [facility] Former smoker 2017-07-02 00:00:00 2017-07-02 00:00:00 [facility] [place] Medications Ordered Filled Start Stop Current Ordering Indication Dosage Frequency Signature Comments Components Source Medication Medication Date Date Medication? Clinician (SIG) Name Name acetaminoph Yes Take by Un mohamud en (TYLENOL 3-28 mouth. ity of ORAL) 17:23: [address] Branch bromphenira Yes [id number] 5mL Take 5 mL Univers mine-pseudo 3-28 by mouth 4 it y of ephedrine-D 00:00: (four[place] (BROMFED 00 times Medical DM) 2-30-10 daily as Bran ch mg/5 mL needed for syrup Congestion /Allergies . doxycycline 2021- Yes [id number] 100mg Take 1 Univers hyclate 100 3-28 04-08 tablet by it y of mg tablet 00:00: 04:59 [place] 2 [place] 00 :00 (two) Medical times Branch daily for 10 days. albuterol Yes [id number] 2{puff} Inhale 2 Univers 90 2-26 Puffs ity of mcg/actuati 00:00: every 6 [place] as on inhaler 00 (six) Medical hours as Branch needed for Wheezing or Shortness of Breath. cetirizine Yes [id number] 10mg Take 1 U nivers 10 mg 2-26 tablet by ity of tablet 00:00: mouth [place] 00 daily. Medical Branch fluticasone Yes [id number] 2{spray Use 2 Univers propionate 2-26 } Sprays in ity of 50 00:00: each [place] mcg/actuati 00 nostril Medic al on nasal daily. Branch spray albuterol Yes [id number] 2{puff} Inhale 2 Univers 90 2-26 Puffs ity of mcg/actuati 00:00: every 6 [place] on inhaler 00 (six) Medical hours as Branch needed for Wheezing or Shortness of Breath. cetirizine Yes [id number] 10mg Take 1 U nivers 10 mg 2-26 tablet by ity of tablet 00:00: mouth [place] 00 daily. Medical Branch fluticasone Yes [id number] 2{spray Use 2 Univers propionate 2-26 } Sprays in ity of 50 00:00: each [place] mcg/actuati 00 nostril Medic al on nasal daily. Branch spray acetaminoph Yes Take by Un mohamud en (TYLENOL 2-11 mouth. ity of ORAL) 11:54: [place] Medical Branch acetaminoph Yes Take by Un mohamud en (TYLENOL 2-11 mouth. ity of ORAL) 11:54: [place] [id number] Medical Branch acetaminoph Yes Take by Un mohamud en (TYLENOL 2-11 mouth. ity of ORAL) 11:54: [place] [address] Medical Branch acetaminoph Yes Take by Un mohamud en (TYLENOL 2-11 mouth. ity of ORAL) 11:54: [place] [address] Medical Branch acetaminoph Yes Take by Un mohamud en (TYLENOL 2-11 mouth. ity of ORAL) 11:54: [place] [address] Medical Branch acetaminoph Yes Take by Un mohamud en (TYLENOL 2-11 mouth. ity of ORAL) 11:54: [place] [address] Medical Branch acetaminoph Yes Take by Un mohamud en (TYLENOL 2-11 mouth. ity of ORAL) 11:54: [place] [address] Medical Branch PNV Yes [id number] Take 1 Univers 102-iron-fo 1-28 TAB-CAP/M2 it y of late-dha 00:00: by mouth [place] (VITAFOL FE 00 daily. Medica l PLUS) 90 mg Branch iron- 1 mg-200 mg Cap PNV 2021- No [id number] Take 1 Univer s 102-iron-fo 1-28 02-11 TAB-CAP/M2 i ty of late-dha 00:00: 00:00 by [facility] [place] [facility] (VIT[facility] FE 00 :00 daily. Medica l PLUS) 90 mg Branch iron- 1 mg-200 mg Cap ondansetron Yes [id number] 4mg Take 1 Univers 4 mg 1-27 tablet by ity of disintegrat 00:00: mouth [place] ing tablet 00 every 8 Medica l (eight) Branch hours as needed for Nausea and Vomiting (N/V) or N/V alternatin g with Promethazi ne. ondansetron 2021- No [id number] 4mg Take 1 Univers 4 mg 1-27 -11 tablet by ity of disintegrat 00:00: 00:00 [place] tablet 00 :00 every 8 Medica l (eight) Branch hours as needed for Nausea and Vomiting (N/V) or N/V alternatin g with Promethazi ne. amoxicillin 2020-08 Yes Univer s 400 mg/5 mL 23 ity of oral 00:00: [place] suspension 00 Medical Branch amoxicillin 2020-08- No Unive rs 400 mg/5 mL 23 -11 ity of oral 00:00: 00:00 [place] suspension 00 :00 Medical Branch fluticasone 2020-08 Yes [id number] 1{puff} Inhale 1 Univers propion-ina 1-22 Puff every it y of meteroL 00:00: 12 [place] (ADVAIR ) Medical DISKUS) hours. Branch 250-50 mcg/dose inhalation disk fluticasone 2020-08 Yes [id number] 1{puff} Inhale 1 Univers propion-ina 1-22 Puff every it y of meteroL 00:00: 12 [place] (ADVAIR ) Medical DISKUS) hours. Branch 250-50 mcg/dose inhalation disk fluticasone 2020-08 Yes [id number] 1{puff} Inhale 1 Univers propion-ina 1-22 Puff every it y of meteroL 00:00: 12 [place] (ADVAIR ) Medical DISKUS) hours. Branch 250-50 mcg/dose inhalation disk fluticasone 2020-08 Yes [id number] 1{puff} Inhale 1 Univers propion-ina 1-22 Puff every it y of meteroL 00:00: 12 [place] (ADVAIR ) Medical DISKUS) hours. Branch 250-50 mcg/dose inhalation disk fluticasone 2020-1 Yes [id number] 1{puff} Inhale 1 Univers propion-ina 1-22 Puff every it y of meteroL 00:00: 12 [place] (ADVAIR () Medical DISKUS) hours. Branch 250-50 mcg/dose inhalation disk fluticasone 2020-1 Yes [id number] 1{puff} Inhale 1 Univers propion-ina 1-22 Puff every it y of meteroL 00:00: 12 [place] (ADVAIR () Medical DISKUS) hours. Branch 250-50 mcg/dose inhalation disk fluticasone 2020-1 Yes [id number] 1{puff} Inhale 1 Univers propion-ina 1-22 Puff every it y of meteroL 00:00: 12 [place] (ADVAIR () Medical DISKUS) hours. Branch 250-50 mcg/dose inhalation disk fluticasone 2020- Yes [id number] 1{puff} Inhale 1 Univers propion-ina 1-22 Puff every it y of meteroL 00:00: 12 [place] (ADVAIR () Medical DISKUS) hours. Branch 250-50 mcg/dose inhalation disk fluticasone 2020-1 Yes [id number] 1{puff} Inhale 1 Univers propion-ina 1-22 Puff every it y of meteroL 00:00: 12 [place] (ADVAIR () Medical DISKUS) hours. Branch 250-50 mcg/dose inhalation disk fluticasone 2020-1 Yes [id number] 1{puff} Inhale 1 Univers propion-ina 1-22 Puff every it y of meteroL 00:00: 12 [place] (ADVAIR () Medical DISKUS) hours. Branch 250-50 mcg/dose inhalation disk famotidine 2020-08 Yes Univers 40 mg/5 mL 1-13 ity of (8 mg/mL) 00:00: [place] suspension Medical Branch famotidine 2020-08 Yes Univers 40 mg/5 mL 1-13 ity of (8 mg/mL) 00:00: [place] suspension Medical Branch famotidine 2020-08 Yes Univers 40 mg/5 mL 1-13 ity of (8 mg/mL) 00:00: [place] suspension 00 Medical Branch famotidine 2020-08- No Univer s 40 mg/5 mL 08-15 ity of (8 mg/mL) 00:00: 00:00 [place] suspension 00 :00 Medical Branch SERTRALINE 2020-08- No [id number] 50mg TAKE 1 Univers 50 mg 08-03 TABLET BY ity of tablet 00:00: 05:59 MOUTH [place] 00 :00 DAILY FOR Medical 45 DAYS. Branch SERTRALINE 2020-08- No [id number] 50mg TAKE 1 Univers 50 mg 08-03 TABLET BY ity of tablet 00:00: 05:59 MOUTH [place] 00 :00 DAILY FOR Medical 45 DAYS. Branch albuterol 2020-08 Yes [id number] 2{puff} Inhale 2 Univers 90 0-06 Puffs ity of mcg/actuati 00:00: every 6 [place] on inhaler 00 (six) Medical hours as Branch needed for Wheezing or Shortness of Breath. cetirizine 2020-08 Yes [id number] 10mg Take 1 U nivers (ZYRTEC) 10 0-06 tablet by ity of mg tablet 00:00: mouth [place] 00 daily. Medical Branch fluticasone 2020-08 Yes [id number] 1{spray Use 1 Univers propionate 0-06 } [place] in ity o f 50 00:00: each [place] mcg/actuati 00 nostril Medic al on nasal daily. Branch spray azelastine 2020-08 Yes [id number] 1{spray Use 1 Univers 137 mcg 0-06 } [place] in ity of (0.1 %) 00:00: each [place] nasal spray 00 nostril 2 Med ical (two) Branch times daily. Use in each nostril as directed albuterol 2020-08 Yes [id number] 2{puff} Inhale 2 Univers 90 0-06 Puffs ity of mcg/actuati 00:00: every 6 [place] on inhaler 00 (six) Medical hours as Branch needed for Wheezing or Shortness of Breath. cetirizine 2020-08 Yes [id number] 10mg Take 1 U nivers (ZYRTEC) 10 0-06 tablet by ity of mg tablet 00:00: mouth [place] 00 daily. Medical Branch fluticasone 2020-08 Yes [id number] 1{spray Use 1 Univers propionate 0-06 } [place] in ity o f 50 00:00: each [place] mcg/actuati 00 nostril Medic al on nasal daily. Branch spray azelastine 2020-08 Yes [id number] 1{spray Use 1 Univers 137 mcg 0-06 } [place] in ity of (0.1 %) 00:00: each [place] nasal spray 00 nostril 2 Med ical (two) Branch times daily. Use in each nostril as directed albuterol 2020-08 Yes [id number] 2{puff} Inhale 2 Univers 90 0-06 Puffs ity of mcg/actuati 00:00: every 6 [place] on inhaler 00 (six) Medical hours as Branch needed for Wheezing or Shortness of Breath. cetirizine 2020-08 Yes [id number] 10mg Take 1 U nivers (ZYRTEC) 10 0-06 tablet by ity of mg tablet 00:00: mouth [place] 00 daily. Medical Branch fluticasone 2020-08 Yes [id number] 1{spray Use 1 Univers propionate 0-06 } [place] in ity o f 50 00:00: each [place] mcg/actuati 00 nostril Medic al on nasal daily. Branch spray azelastine 2020-08 Yes [id number] 1{spray Use 1 Univers 137 mcg 0-06 } [place] in ity of (0.1 %) 00:00: each [place] nasal spray 00 nostril 2 Med ical (two) Branch times daily. Use in each nostril as directed albuterol 2020-08 Yes [id number] 2{puff} Inhale 2 Univers 90 0-06 Puffs ity of mcg/actuati 00:00: every 6 [place] on inhaler 00 (six) Medical hours as Branch needed for Wheezing or Shortness of Breath. cetirizine 2020-08 Yes [id number] 10mg Take 1 U nivers (ZYRTEC) 10 0-06 tablet by ity of mg tablet 00:00: mouth [place] 00 daily. Medical Branch fluticasone 2020-08 Yes [id number] 1{spray Use 1 Univers propionate 0-06 } [place] in ity o f 50 00:00: each [place] mcg/actuati 00 nostril Medic al on nasal daily. Branch spray azelastine 2020-08 Yes [id number] 1{spray Use 1 Univers 137 mcg 0-06 } [place] in ity of (0.1 %) 00:00: each [place] nasal spray 00 nostril 2 Med ical (two) Branch times daily. Use in each nostril as directed albuterol 2020-08 Yes [id number] 2{puff} Inhale 2 Univers 90 0-06 Puffs ity of mcg/actuati 00:00: every 6 [place] on inhaler 00 (six) Medical hours as Branch needed for Wheezing or Shortness of Breath. cetirizine 2020-08 Yes [id number] 10mg Take 1 U nivers (ZYRTEC) 10 0-06 tablet by ity of mg tablet 00:00: mouth [place] 00 daily. Medical Branch fluticasone 2020-08 Yes [id number] 1{spray Use 1 Univers propionate 0-06 } [place] in ity o f 50 00:00: each [place] mcg/actuati 00 nostril Medic al on nasal daily. Branch spray azelastine 2020-08 Yes [id number] 1{spray Use 1 Univers 137 mcg 0-06 } [place] in ity of (0.1 %) 00:00: each [place] nasal spray 00 nostril 2 Med ical (two) Branch times daily. Use in each nostril as directed albuterol 2020-08 Yes [id number] 2{puff} Inhale 2 Univers 90 0-06 Puffs ity of mcg/actuati 00:00: every 6 [place] on inhaler 00 (six) Medical hours as Branch needed for Wheezing or Shortness of Breath. cetirizine 2020-08 Yes [id number] 10mg Take 1 U nivers (ZYRTEC) 10 0-06 tablet by ity of mg tablet 00:00: mouth [place] 00 daily. Medical Branch fluticasone 2020-08 Yes [id number] 1{spray Use 1 Univers propionate 0-06 } [place] in ity o f 50 00:00: each [place] mcg/actuati 00 nostril Medic al on nasal daily. Branch spray azelastine 2020-08 Yes [id number] 1{spray Use 1 Univers 137 mcg 0-06 } [place] in ity of (0.1 %) 00:00: each [place] nasal spray 00 nostril 2 Med ical (two) Branch times daily. Use in each nostril as directed albuterol 2020-08 Yes [id number] 2{puff} Inhale 2 Univers 90 0-06 Puffs ity of mcg/actuati 00:00: every 6 [place] on inhaler 00 (six) Medical hours as Branch needed for Wheezing or Shortness of Breath. cetirizine 2020-08 Yes [id number] 10mg Take 1 U nivers (ZYRTEC) 10 0-06 tablet by ity of mg tablet 00:00: mouth [place] 00 daily. Medical Branch fluticasone 2020-08 Yes [id number] 1{spray Use 1 Univers propionate 0-06 } [place] in ity o f 50 00:00: each [place] mcg/actuati 00 nostril Medic al on nasal daily. Branch spray azelastine 2020-08 Yes [id number] 1{spray Use 1 Univers 137 mcg 0-06 } [place] in ity of (0.1 %) 00:00: each [place] nasal spray 00 nostril 2 Med ical (two) Branch times daily. Use in each nostril as directed albuterol 2020-08 Yes [id number] 2{puff} Inhale 2 Univers 90 0-06 Puffs ity of mcg/actuati 00:00: every 6 [place] on inhaler 00 (six) Medical hours as Branch needed for Wheezing or Shortness of Breath. cetirizine 2020-08 Yes [id number] 10mg Take 1 U nivers (ZYRTEC) 10 0-06 tablet by ity of mg tablet 00:00: mouth [place] 00 daily. Medical Branch fluticasone 2020-08 Yes [id number] 1{spray Use 1 Univers propionate 0-06 } [place] in ity o f 50 00:00: each [place] mcg/actuati 00 nostril Medic al on nasal daily. Branch spray azelastine 2020-08 Yes [id number] 1{spray Use 1 Univers 137 mcg 0-06 } [place] in ity of (0.1 %) 00:00: each [place] nasal spray 00 nostril 2 Med ical (two) Branch times daily. Use in each nostril as directed albuterol 2020-08 Yes [id number] 2{puff} Inhale 2 Univers 90 0-06 Puffs ity of mcg/actuati 00:00: every 6 [place] on inhaler 00 (six) Medical hours as Branch needed for Wheezing or Shortness of Breath. cetirizine 2020-08 Yes [id number] 10mg Take 1 U nivers (ZYRTEC) 10 0-06 tablet by ity of mg tablet 00:00: mouth [place] 00 daily. Medical Branch fluticasone 2020-08 Yes [id number] 1{spray Use 1 Univers propionate 0-06 } [place] in ity o f 50 00:00: each [place] mcg/actuati 00 nostril Medic al on nasal daily. Branch spray azelastine 2020-08 Yes [id number] 1{spray Use 1 Univers 137 mcg 0-06 } [place] in ity of (0.1 %) 00:00: each [place] nasal spray 00 nostril 2 Med ical (two) Branch times daily. Use in each nostril as directed albuterol 2020-08 Yes [id number] 2{puff} Inhale 2 Univers 90 0-06 Puffs ity of mcg/actuati 00:00: every 6 [place] on inhaler 00 (six) Medical hours as Branch needed for Wheezing or Shortness of Breath. cetirizine 2020-08 Yes [id number] 10mg Take 1 U nivers (ZYRTEC) 10 0-06 tablet by ity of mg tablet 00:00: mouth [place] 00 daily. Medical Branch fluticasone 2020-08 Yes [id number] 1{spray Use 1 Univers propionate 0-06 } [place] in ity o f 50 00:00: each [place] mcg/actuati 00 nostril Medic al on nasal daily. Branch spray azelastine 2020-08 Yes [id number] 1{spray Use 1 Univers 137 mcg 0-06 } [place] in ity of (0.1 %) 00:00: each [place] nasal spray 00 nostril 2 Med ical (two) Branch times daily. Use in each nostril as directed Yes [id number] 1{tbl} Take 1 Univers vitamin 8-31 tablet by ity of w/FA tablet 00:00: mouth [place] 00 daily. Medical Branch Yes [id number] 1{tbl} Take 1 Univers vitamin 8-31 tablet by ity of w/FA tablet 00:00: mouth [place] 00 daily. Medical Branch 2020-0 Yes [id number] 1{tbl} Take 1 Univers vitamin 8-31 tablet by ity of w/FA tablet 00:00: mouth [place] 00 daily. Medical Branch 0 2022- No [id number] 1{tbl} Take 1 Univers vitamin 8-31 02-11 tablet by ity of w/FA tablet 00:00: 00:00 [place] 00 :00 daily. [facility] Immunizations Ordered Filled Immunization Date Status Comments [facility] e Immunization Name Name TDAP 2021-01-29 Completed University of 00:00:00 [facility] TDAP 2021-01-29 Completed University of 00:00:00 [facility] TDAP 2021-01-29 Completed University of 00:00:00 [facility] TDAP 2021-01-29 Completed University of 00:00:00 [facility] TDAP 2021-01-29 Completed University of 00:00:00 [facility] TDAP 2021-01-29 Completed University of 00:00:00 [facility] TDAP 2021-01-29 Completed University of 00:00:00 [facility] TDAP 2021-01-29 Completed University of 00:00:00 [facility] TDAP 2021-01-29 Completed University of 00:00:00 [facility] TDAP 2021-01-29 Completed University of 00:00:00 [facility] Influenza Virus 2018-09-27 Completed Universit y of Vaccine [place] .5 mL 00:00:00 [facility] IM 6+ MO Branch Influenza Virus 2018-09-27 Completed Universit y of Vaccine [place] .5 mL 00:00:00 [facility] IM 6+ MO Branch Influenza Virus 2018-09-27 Completed Universit y of Vaccine [place] .5 mL 00:00:00 [place] [facility] IM 6+ MO Branch Influenza Virus 2018-09-27 Completed Universit y of Vaccine [place] .5 mL 00:00:00 [place] [facility] IM 6+ MO Branch Influenza Virus 2018-09-27 Completed Universit y of Vaccine [place] .5 mL 00:00:00 [place] [facility] IM 6+ MO Branch Influenza Virus 2018-09-27 Completed Universit y of Vaccine [place] .5 mL 00:00:00 [facility] IM 6+ MO Branch Influenza Virus 2018-09-27 Completed Universit y of Vaccine [place] .5 mL 00:00:00 [place] [facility] IM 6+ MO Branch Influenza Virus 2018-09-27 Completed Universit y of Vaccine [place] .5 mL 00:00:00 [place] [facility] IM 6+ MO Branch Influenza Virus 2018-09-27 Completed Universit y of Vaccine [place] .5 mL 00:00:00 [place] [facility] IM 6+ MO Branch Influenza Virus 2018-09-27 Completed Universit y of Vaccine [place] .5 mL 00:00:00 [place] [facility] IM 6+ MO [place] Influenza Virus 2016-10-20 Completed Universit y of Vaccine [place] IM 3+ 00:00:00 [facility] Influenza Virus 2016-10-20 Completed Universit y of Vaccine [place] IM 3+ 00:00:00 [facility] Influenza Virus 2016-10-20 Completed Universit y of Vaccine [place] IM 3+ 00:00:00 [facility] Influenza Virus 2016-10-20 Completed Universit y of Vaccine [place] IM 3+ 00:00:00 [facility] Influenza Virus 2016-10-20 Completed Universit y of Vaccine [place] IM 3+ 00:00:00 [facility] Influenza Virus 2016-10-20 Completed Universit y of Vaccine [place] IM 3+ 00:00:00 [facility] Influenza Virus 2016-10-20 Completed Universit y of Vaccine [place] IM 3+ 00:00:00 [facility] Influenza Virus 2016-10-20 Completed Universit y of Vaccine [place] IM 3+ 00:00:00 [facility] Influenza Virus 2016-10-20 Completed Universit y of Vaccine [place] IM 3+ 00:00:00 [facility] Influenza Virus 2016-10-20 Completed Universit y of Vaccine [place] IM 3+ 00:00:00 [facility] TDAP 2015-01-29 Completed University of 00:00:00 [facility] TDAP 2015-01-29 Completed University of 00:00:00 [facility] TDAP 2015-01-29 Completed University of 00:00:00 [facility] TDAP 2015-01-29 Completed University of 00:00:00 [facility] TDAP 2015-01-29 Completed University of 00:00:00 [facility] TDAP 2015-01-29 Completed University of 00:00:00 [facility] TDAP 2015-01-29 Completed University of 00:00:00 [facility] TDAP 2015-01-29 Completed University of 00:00:00 [facility] TDAP 2015-01-29 Completed University of 00:00:00 [facility] TDAP 2015-01-29 Completed University of 00:00:00 [facility] HPV 2010-07-05 Completed University of 00:00:00 [facility] Influenza Virus 2010-07-05 Completed Universit y of Vaccine - Whole 00:00:00 [facility] HPV 2010-07-05 Completed University of 00:00:00 [facility] Influenza Virus 2010-07-05 Completed Universit y of Vaccine - Whole 00:00:00 [facility] HPV 2010-07-05 Completed University of 00:00:00 [facility] Influenza Virus 2010-07-05 Completed Universit y of Vaccine - Whole 00:00:00 [facility] HPV 2010-07-05 Completed University of 00:00:00 [facility] Influenza Virus 2010-07-05 Completed Universit y of Vaccine - Whole 00:00:00 [facility] HPV 2010-07-05 Completed University of 00:00:00 [facility] Influenza Virus 2010-07-05 Completed Universit y of Vaccine - Whole 00:00:00 [facility] HPV 2010-07-05 Completed University of 00:00:00 [facility] Influenza Virus 2010-07-05 Completed Universit y of Vaccine - Whole 00:00:00 [facility] HPV 2010-07-05 Completed University of 00:00:00 [facility] Influenza Virus 2010-07-05 Completed Universit y of Vaccine - Whole 00:00:00 [facility] HPV 2010-07-05 Completed University of 00:00:00 [facility] Influenza Virus 2010-07-05 Completed Universit y of Vaccine - Whole 00:00:00 [facility] HPV 2010-07-05 Completed University of 00:00:00 [facility] Influenza Virus 2010-07-05 Completed Universit y of Vaccine - Whole 00:00:00 [facility] HPV 2010-07-05 Completed University of 00:00:00 [facility] Influenza Virus 2010-07-05 Completed Universit y of Vaccine - Whole 00:00:00 [facility] HPV 2010-02-12 Completed University of 00:00:00 [facility] HPV 2010-02-12 Completed University of 00:00:00 [facility] HPV 2010-02-12 Completed University of 00:00:00 [facility] HPV 2010-02-12 Completed University of 00:00:00 [facility] HPV 2010-02-12 Completed University of 00:00:00 [facility] HPV 2010-02-12 Completed University of 00:00:00 [facility] HPV 2010-02-12 Completed University [facility] 00:00:00 [facility] HPV 2010-02-12 Completed University of 00:00:00 [facility] HPV 2010-02-12 Completed University of 00:00:00 [facility] HPV 2010-02-12 Completed University of 00:00:00 [facility] HPV 2009-12-14 Completed University of 00:00:00 [facility] HPV 2009-12-14 Completed University of 00:00:00 [facility] HPV 2009-12-14 Completed University of 00:00:00 [facility] HPV 2009-12-14 Completed University of 00:00:00 [facility] HPV 2009-12-14 Completed University of 00:00:00 [facility] HPV 2009-12-14 Completed University of 00:00:00 [facility] HPV 2009-12-14 Completed University of 00:00:00 [facility] HPV 2009-12-14 Completed University of 00:00:00 [facility] HPV 2009-12-14 Completed University of 00:00:00 [facility] HPV 2009-12-14 Completed University of 00:00:00 [facility] Vital Signs Vital Name Observation Time Observation Value Comments Source Systolic blood 2021-10-28 22:18:00 132 mm[Hg] Univer sity of pressure [facility] Diastolic blood 2021-10-28 22:18:00 95 mm[Hg] Unive rsity of pressure [facility] Heart rate 2021-10-28 22:18:00 113 /min [facility] Body temperature 2021-10-28 22:18:00 36.83 Lien [facility] 2021-10-28 22:18:00 16 /min [facility] Body height 2021-10-28 22:18:00 162.6 cm [facility] Body weight 2021-10-28 22:18:00 83.462 kg [facility] BMI 2021-10-28 22:18:00 31.58 kg/m2 Universi ty of [facility] Oxygen saturation in 2021-10-28 22:18:00 100 /min University of Arterial blood by [facility] Pulse oximetry Branch Systolic blood 2021-09-13 17:53:00 109 mm[Hg] Univer sity of pressure [facility] Diastolic blood 2021-09-13 17:53:00 75 mm[Hg] Unive rsity of pressure [facility] Heart rate 2021-09-13 17:53:00 76 /min Universi ty of [facility] Body temperature 2021-09-13 17:53:00 36.78 Lien Univ ersity of [facility] Respiratory rate 2021-09-13 17:53:00 20 /min Univ ersity of [facility] Body height 2021-09-13 17:53:00 162.6 cm Universi ty of [facility] Body weight 2021-09-13 17:53:00 83.575 kg Universi ty of [facility] BMI 2021-09-13 17:53:00 31.63 kg/m2 Universi ty of [facility] Systolic blood 2021-08-27 19:18:00 126 mm[Hg] Univer sity of pressure [facility] Diastolic blood 2021-08-27 19:18:00 75 mm[Hg] Unive rsity of pressure [facility] Heart rate 2021-08-27 19:18:00 91 /min Universi ty of [facility] Body height 2021-08-27 19:18:00 162.6 cm Universi ty of [facility] Body weight 2021-08-27 19:18:00 83.598 kg Universi ty of [facility] BMI 2021-08-27 19:18:00 31.64 kg/m2 Universi ty of [facility] Oxygen saturation in 2021-08-27 19:18:00 97 /min University of Arterial blood by [facility] Pulse oximetry Branch Procedures Procedure Date / Time Performing Clinician Source Performed US OB TRANSVAGINAL 2021-09-13 18:37:27 Rebekah Vaz [facility] 2021-09-13 06:01:00 Doctor Unassigned, [facility] POCT URINALYSIS W/O 2021-09-13 00:00:00 Rebekah Vaz [facility] SPECIFIC [facility] Encounters Start End Encounter Admission Attending Care Care Encounter Source Date/Time Date/Time Type Type Clinicians Facility Department ID 2021-10-28 2021-10-28 Outpatient R JARETT [facility] [id number] Univers 17:20:00 17:53:40 [facility] 2021-10-28 2021-10-28 Jimbo Denson [facility] [id number] [id number] Univers 17:20:00 17:53:40 Care Miguel HEALTH [id number] it y [facility] [id number] Marty as ROSAS?BLEA [id number] [address] MEDICAL OFFICE [facility] 2021-10-28 2021-10-28 Outpatient R [facility] [id number] Univers 17:20:00 17:20:00 [id number] [facility] 2021-10-21 2021-10-21 Shirley Hoskins [facility] [id number] Univers 00:00:00 00:00:00 [facility] [id number] it y of [facility] [id number] Marty as ROSAS?BLEA [id number] [address] MEDICAL OFFICE [facility] 2021-10-02 2021-10-02 Outpatient R REBEKAH VAZ [facility] [id number] Univers 14:00:00 14:00:00 [id number] [facility] 2021-10-02 2021-10-02 Outpatient R REBEKAH VAZ [facility] [id number] Univers 14:00:00 14:00:00 ity [facility] 2021-10-01 2021-10-01 Outpatient R VANESSA [facility] [id number] Univers 12:30:00 12:30:00 [facility] 2021-10-01 2021-10-01 Outpatient [facility] [id number] Univers 12:30:00 12:30:00 [id number] [facility] 2021-09-30 2021-09-30 Outpatient R [facility] [id number] Univers 17:00:00 17:00:00 [id number] ity [facility] 2021-09-30 2021-09-30 Outpatient R GABI, [facility] [id number] Univers 17:00:00 17:00:00 SHILA ity [facility] 2021-09-28 2021-09-28 Outpatient R KING ALLISON, [facility] [id number] Univers 09:20:00 09:35:47 VERNON ity [facility] 2021-09-28 2021-09-28 Outpatient R [facility] [id number] Univers 09:20:00 09:20:00 [id number] ity [facility] 2021-09-27 2021-09-27 Outpatient R ТАТЬЯНА REBEKAH [facility] [id number] Univers 12:30:00 12:30:00 [id number] ity [facility] 2021-09-27 2021-09-27 Outpatient R ТАТЬЯНА REBEKAH [facility] [id number] Univers 12:30:00 12:30:00 ity of [facility] 2021-09-27 2021-09-27 Telephone Татьяна Rebekah [facility] [id number] Univers 00:00:00 00:00:00 Marisol TAYLOR [id number] it y [id number] [id number] [address] 2021-09-20 2021-09-20 Telephone Татьяна Rebekah [facility] [id number] Univers 00:00:00 00:00:00 Marisol TAYLOR [id number] it [id number] [id number] [address] 2021-09-14 2021-09-14 Patient Vanessa [facility] [id number] Univers 00:00:00 00:00:00 Secure [facility] [id number] ity of [place] [id number] Marty as ROSAS?BLEA [id number] [place] marcela MYERS [address] [place] [address] MEDICAL OFFICE BUILDING 2021-09-13 2021-09-13 Outpatient R REBEKAH VAZ [facility] [id number] Univers 11:15:00 12:08:16 ity [facility] 2021-09-13 2021-09-13 Routine Rebekah Vaz [facility] [id number] [id number] Univers 11:15:00 12:08:16 Marisol TAYLOR [id number] i ty of [id number] [id number] [address] 2021-09-13 2021-09-13 Letter Rebekah Vaz [facility] [id number] Univers 00:00:00 00:00:00 (Out) Marisol TAYLOR [id number] it y [id number] [id number] [address] 2021-09-13 2021-09-13 Orders Doctor ADRIÁN [id number] [id number] Univers 00:00:00 00:00:00 Only Unassigned, BAILEY [id number] ity of [place] [facility] [id number] Marty as [id number] [address] 2021-09-04 2021-09-04 Outpatient R ТАТЬЯНА REBEKAH [facility] [id number] Univers 15:00:00 15:00:00 ity [facility] 2021-09-02 2021-09-02 Outpatient R GABI [facility] [id number] Univers 09:45:00 09:45:00 SHILA [facility] 2021-09-02 2021-09-02 Outpatient R VANESSA [facility] [id number] Univers 00:00:00 00:00:00 ABRAHAMKIMANI [facility] 2021-08-30 2021-08-30 Outpatient R [facility] [id number] Univers 17:00:00 17:00:00 [id number] [facility] 2021-08-27 2021-08-27 Office Vanessa [facility] 1.2.840.114 [id number] Univers 13:00:00 14:05:18 Visit [facility] [id number] it y [facility] [id number] Marty as ROSAS?BLEA [id number] [place] marcela [address] MEDICAL OFFICE BUILDING 2021-08-27 2021-08-27 Outpatient R VANESSA [facility] [id number] Univers 13:00:00 14:05:18 [facility] 2020-11-07 2020-11-07 [facility] [id number] 10:03:48 10:53:52 Opal N [facility] [id number] Visit [facility] [id number] MATERNAL [id number] & CHILD 107 [facility] 2019-10-28 2019-10-28 Outpatient Raju_P [facility] [id number] [place] 02:06:00 02:06:00 [id number] Medical [...] code = 3257) n/a Negative - Negative [facility]
[2021-11-16] MEDS ORDERED: NA CHLORIDE 0.9% 1,000 ML ONE (15:12)
[2021-11-16] MEDS ORDERED: ONDANSETRON 4 MG/2 ML VIAL ONE (15:12)
[2021-11-16 15:23] LABS: Absolute Lymphocytes (CBC) 1.7 K/uL (0.7-4.9); Hematocrit 30.6 % (36.0-45.0); Lymphocytes % 19.7 % (15.3-44.8); MPV 9.2 fL (7.6-11.3); RBC Red Blood Cell Count 4.74 M/uL (3.86-4.86)
[2021-11-16 15:34] LABS: Albumin 3.1 g/dL (3.4-5.0); Bilirubin Total 0.9 mg/dL (0.2-1.0); Potassium 3.9 mmol/L (3.5-5.1); Protein, Total 6.6 g/dL (6.4-8.2)
[2021-11-16] MEDS ORDERED: ACETAMINOPHEN 325 MG TABLET ONE (15:51)
[2021-11-16 16:01] LABS: Urine Blood Trace-intact (Negative); Urine Glucose Negative (Negative); Urine Protein Negative (Negative); Urine Specific Gravity 1.025 (1.005-1.030); Urine pH 6.5 (5.0-7.0)
[2021-11-16 16:30] LABS: SARS-COV-2 RT PCR NEGATIVE (NEGATIVE)
[2021-11-16 17:00] LABS: Urine Specific Gravity/Preg 1.025 (1.005-1.030)
--- NOTE | 2021-11-16 18:13 | RAD REPORT ---
EXAM DESCRIPTION: CTAbdomen Pelvis W Contrast - 11/16/2021 6:02 pm CLINICAL HISTORY: LLQ abdominal pain COMPARISON: Abdomen Pelvis W Contrast dated 10/25/2019; Abdomen Pelvis W Contrast dated 9; Abdomen Pelvis W Contrast dated 08/22/2017; CT ABD PELVIS W CONTRAST dated 02/19/2009 TECHNIQUE: CT of the abdomen and pelvis was performed. All CT scans are performed using dose optimization technique as appropriate and may include automated exposure control or mA/KV adjustment according to patient size. FINDINGS: Lower chest: No acute abnormality. Liver: No acute abnormality or suspicious lesions. Mild hepatomegaly with steatosis. Biliary: No biliary ductal dilatation. Stomach: No significant focal abnormality. Duodenum: No significant focal abnormality. Pancreas: No significant abnormality. Spleen: Mild splenomegaly. Adrenal: No suspicious lesions. Kidney/ureter: No hydronephrosis. No renal calculi. Retroperitoneum: No retroperitoneal adenopathy. Vascular: No aneurysm. Bowel: No significant focal abnormality. Normal appendix. Peritoneum: No ascites or free air. Bladder: Grossly unremarkable. Reproductive: No adnexal masses. Bones: No acute fracture. Other: n/a IMPRESSION: No acute intra-abdominal or pelvic finding. Normal appendix.
--- NOTE | 2021-11-16 18:49 | EDPHYS ---
Physician Documentation [facility] Name: Deborah Torres Age: 26 yrs Sex: Female : 1995 Arrival Date: 11/16/2021 Time: 14:27 Bed 19 Private MD: ED Physician Shawn Pollard HPI: 11/16 14:40 This 26 yrs old Female presents to ER via Ambulatory with complaints of Sinus jmm Infection-symptoms worsening. 14:40 The patient presents to the emergency department with nausea, vomiting, diarrhea, jmm abdominal pain. Onset: The symptoms/episode began/occurred acutely, 1 day(s) ago. Possible causes: unknown. The symptoms are aggravated by nothing. The symptoms are alleviated by nothing. Associated signs and symptoms: Pertinent positives: abdominal pain, diarrhea, vomiting. The patient has not experienced similar symptoms in the past. Patient also complains of cough, congestion, which has been ongoing for over a week. . 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 - Social history:: Smoking status: Patient reports the use of cigarette tobacco products. ROS: 14:40 Constitutional: Positive for body aches, chills. jmm 14:40 Respiratory: Positive for cough. 14:40 Abdomen/GI: Positive for abdominal pain, nausea and vomiting, vomiting. 14:40 All other systems are negative. 14:40 ENT: Positive for sinus congestion, sinus pain. jmm 14:40 Constitutional: Positive for fever. jmm Exam: 14:40 Constitutional: This is a well developed, well nourished patient who is awake, alert, jmm and in no acute distress. Head/Face: atraumatic. Eyes: EOMI, no conjunctival erythema appreciated ENT: Moist Mucus Membranes Neck: Trachea midline, Supple Chest/axilla: Normal chest wall appearance and motion. Cardiovascular: Regular rate and rhythm. No edema appreciated Respiratory: Normal respirations, no respiratory distress appreciated Abdomen/GI: Non distended, soft Back: Normal ROM Skin: General appearance color normal MS/ Extremity: Moves all extremities, no obvious deformities appreciated, no edema noted to the lower extremities Neuro: Awake and alert Psych: Behavior is normal, Mood is normal, Patient is cooperative and pleasant 18:43 Head/face: Noted is Sinus tenderness, that is moderate, is located over the right [facility] maxillary sinus and left maxillary sinus. Vital Signs: 14:38 BP 137 / 94; Pulse 103; Resp 18; Temp 98.6; Pulse Ox 100% on R/A; Weight 81.65 kg; 7 Height 5 ft. 4 in. (162.56 cm); Pain 10/10; 16:04 BP 98 / 56; Pulse 95; Resp 16 S; Temp 98.7(O); Pulse Ox 99% on R/A; aa5 18:30 BP 107 / 59; Pulse 88; Resp 18 S; Temp 98.3(O); Pulse Ox 99% on R/A; aa5 14:38 Body Mass Index 30.90 (81.65 kg, 162.56 cm) 7 MDM: 14:43 Patient medically screened. [facility] 18:43 Data reviewed: vital signs, nurses notes. [facility] 18:46 Counseling: I had a detailed discussion with the patient and/or guardian regarding: the [facility] historical points, exam findings, and any diagnostic results supporting the discharge/admit diagnosis. 18:47 Counseling: I had a detailed discussion with the patient and/or guardian regarding: lab [facility] results, radiology results, the need for outpatient follow up, to return to the emergency department if symptoms worsen or persist or if there are any questions or concerns that arise at home. ED course: Patient is alert and non toxic in appearance in the ED. States feeling better. Now able to tolerate PO. Patient otherwise given strict return precautions. Patient understood and agrees with the plan of care. . 11/16 14:40 Order name: CBC with Diff; Complete Time: 15:46 [facility] 11/16 14:40 Order name: CMP; Complete Time: 15:46 [facility] 11/16 14:40 Order name: Lipase; Complete Time: 15:46 [facility] 11/16 14:40 Order name: COVID-19/FLU A+B (Document "Date of Onset" if Symptomatic); Complete Time: [facility] 16:36 11/16 16:01 Order name: Urine Dipstick-Ancillary; Complete Time: 16:08 [facility] 11/16 16:04 Order name: Urine --Ancillary (enter results); Complete Time: 17:26 em1 11/16 14:40 Order name: IV Saline Lock; Complete Time: 15:05 [facility] 11/16 14:40 Order name: Labs collected and sent; Complete Time: 15:05 [facility] 11/16 14:41 Order name: Urine Dipstick-Ancillary (obtain specimen); Complete Time: 16:00 [facility] 11/16 14:41 Order name: Urine Test (obtain specimen); Complete Time: 16:00 [facility] 11/16 16:57 Order name: CT Abd/Pelvis - IV Contrast Only; Complete Time: 18:17 [facility] Administered Medications: 15:00 Drug: NS 0.9% 1000 ml Route: IV; Rate: 1 bolus; Site: left antecubital; aa5 16:00 Follow up: IV Status: Completed infusion; IV Intake: 1000ml aa5 15:00 Drug: Zofran (Ondansetron) 4 mg Route: IVP; Site: left antecubital; aa5 15:10 Follow up: Response: No adverse reaction aa5 16:00 Drug: Tylenol 650 mg Route: PO; aa5 18:30 Follow up: Response: No adverse reaction aa5 Disposition Summary: 11/16/21 18:49 Discharge Ordered Location: Home jmm Condition: Stable jmm Diagnosis - Cough jmm - Vomiting jmm - Diarrhea, unspecified jmm - Lower abdominal pain, unspecified jmm Followup: jmm - With: Private Physician - When: 2 - 3 days - Reason: Recheck today's complaints, Continuance of care, Re-evaluation by your physician Discharge Instructions: - Discharge Summary Sheet jmm - Abdominal Pain, Adult jmm - Diarrhea, Adult jmm - Vomiting, Adult jmm Forms: - Medication Reconciliation Form jmm - Thank You Letter jmm - Antibiotic Education jmm - Prescription Opioid Use jmm - Work release form tw5 Prescriptions: - cefdinir 300 mg Oral capsule - take 1 capsule by ORAL route every 12 hours for 10 days; 20 capsule; Refills: [facility] 0, Product Selection Permitted - ondansetron 4 mg Oral tablet,disintegrating - take 1 tablet by ORAL route every 4-6 hours As needed; 20 tablet; Refills: 0, [facility] Product Selection Permitted - dicyclomine 20 mg Oral Tablet - take 1 tablet by ORAL route 4 times per day; 20 tablet; Refills: 0, Product [facility] Selection Permitted Signatures: Dispatcher [employer] Robles Tejada PA PA jmm Calderon, Audri, RN RN aa5 Monse Tran RN RN jl7
--- NOTE | 2021-11-16 18:49 | ER ---
Nurse's Notes [facility] Name: Deborah Torres Age: 26 yrs Sex: Female : 1995 Arrival Date: 11/16/2021 Time: 14:27 Bed 19 Private MD: Diagnosis: Cough;Vomiting;Diarrhea, unspecified;Lower abdominal pain, unspecified Presentation: 11/16 14:38 Chief complaint: Patient states: Congestion, N/V/D, body aches, EATON x 1 week. jl7 Coronavirus screen: chills, congestion, fatigue, headache, nausea, vomiting. Client presents with at least one sign or symptom that may indicate coronavirus-19. Standard/surgical mask placed on the client. Provider contacted for isolation considerations. Ebola Screen: No symptoms or risks identified at this time. Initial Sepsis Screen: Does the patient meet any 2 criteria? No. Patient's initial sepsis screen is negative. Does the patient have a suspected source of infection? No. Patient's initial sepsis screen is negative. Risk Assessment: Do you want to hurt yourself or someone else? Patient reports no desire to harm self or others. Onset of symptoms is unknown. 14:38 Method Of Arrival: Ambulatory [facility] 14:38 Acuity: NORM 3 jl7 Triage Assessment: 14:40 General: Appears in no apparent distress. uncomfortable, Behavior is calm, cooperative, jl7 appropriate for age. Pain: Complains of pain in EATON Pain currently is 10 out of 10 on a pain scale. 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 - Social history:: Smoking status: Patient reports the use of cigarette tobacco products. Screenin:05 Abuse screen: Denies threats or abuse. Nutritional screening: No deficits noted. aa5 Tuberculosis screening: No symptoms or risk factors identified. Fall Risk None identified. Assessment: 15:00 General: Appears uncomfortable, Behavior is calm, cooperative. Pain: Complains of pain aa5 in whole body. Neuro: Level of Consciousness is awake, alert, obeys commands, Oriented to person, place, time, situation. Cardiovascular: Heart tones S1 S2 present Rhythm is regular. Respiratory: Airway is patent Respiratory effort is even, unlabored, Respiratory pattern is regular, symmetrical, Breath sounds are clear bilaterally. GI: Abdomen is round non-distended, Bowel sounds present X 4 quads. Abd is soft and non tender X 4 quads. Reports diarrhea, nausea, vomiting. : No signs and/or symptoms were reported regarding the genitourinary system. EENT: Reports nasal congestion sore throat . Derm: Skin is pink, warm \T\ dry. 16:05 Reassessment: Patient is alert, oriented x 3, equal unlabored respirations, skin aa5 warm/dry/pink. Patient states symptoms have not improved. 17:10 Reassessment: Patient is alert, oriented x 3, equal unlabored respirations, skin aa5 warm/dry/pink. awaiting CT scan . 19:22 Reassessment: Patient is alert, oriented x 3, equal unlabored respirations, skin aa5 warm/dry/pink. 19:22 General: Appears comfortable. aa5 Vital Signs: 14:38 BP 137 / 94; Pulse 103; Resp 18; Temp 98.6; Pulse Ox 100% on R/A; Weight 81.65 kg; jl7 Height 5 ft. 4 in. (162.56 cm); Pain 10/10; 16:04 BP 98 / 56; Pulse 95; Resp 16 S; Temp 98.7(O); Pulse Ox 99% on R/A; aa5 18:30 BP 107 / 59; Pulse 88; Resp 18 S; Temp 98.3(O); Pulse Ox 99% on R/A; aa5 14:38 Body Mass Index 30.90 (81.65 kg, 162.56 cm) 7 ED Course: 14:27 Patient arrived in ED. as 14:40 Robles Graham PA is PHCP. [facility] 14:40 Shawn Pollard MD is Attending Physician. [facility] 14:40 Triage completed. jl7 14:40 Arm band placed on right wrist. jl7 14:52 Tiff Fernandez, RN is Primary Nurse. aa5 15:00 Patient has correct armband on for positive identification. Bed in low position. Call aa5 light in reach. Side rails up X 1. Pulse ox on. NIBP on. 15:00 Inserted saline lock: 20 gauge in left antecubital area, using aseptic technique. Blood aa5 collected. 15:05 Initial lab(s) drawn, by me, sent to lab. aa5 18:04 CT Abd/Pelvis - IV Contrast Only In Process Unspecified. EDMS 19:22 No provider procedures requiring assistance completed. IV discontinued, intact, aa5 bleeding controlled, No redness/swelling at site. Pressure dressing applied. Administered Medications: 15:00 Drug: NS 0.9% 1000 ml Route: IV; Rate: 1 bolus; Site: left antecubital; aa5 16:00 Follow up: IV Status: Completed infusion; IV Intake: 1000ml aa5 15:00 Drug: Zofran (Ondansetron) 4 mg Route: IVP; Site: left antecubital; aa5 15:10 Follow up: Response: No adverse reaction aa5 16:00 Drug: Tylenol 650 mg Route: PO; aa5 18:30 Follow up: Response: No adverse reaction aa5 Intake: 16:00 IV: 1000ml; Total: 1000ml. aa5 Outcome: 18:49 Discharge ordered by . ada 19:22 Discharged to home ambulatory. aa5 19:22 Condition: stable 19:22 Discharge instructions given to patient, Instructed on discharge instructions, follow up and referral plans. medication usage, Demonstrated understanding of instructions, follow-up care, medications, Prescriptions given X 3. 19:25 Patient left the ED. aa5 Signatures: Dispatcher [employer] EDMS Robles Graham PA PA jmm Martinez, Amelia as Tiff Fernandez, RN RN aa5 Monse Tran RN RN jl7 Corrections: (The following items were deleted from the chart) 15:32 15:05 Inserted saline lock: 20 gauge in left antecubital area, using aseptic technique. aa5 Blood collected. aa5 16:08 16:04 Pulse 95bpm; Resp 16bpm; Spontaneous; Pulse Ox 99% RA; Temp 98.7F Oral; aa5 aa5 16:11 15:00 EENT: Reports sore throat . aa5 aa5
[2021-11-16 20:33] VITALS: BP 98/56; TEMP 98.7; O2SAT 99
== END 2021-11-16 19:25 | disposition home or self-care (01) ==
LOC: ER 14:24
DX: R05.9 Cough, unspecified (principal); R11.10 Vomiting, unspecified; R19.7 Diarrhea, unspecified; R10.30 Lower abdominal pain, unspecified; I10 Essential (primary) hypertension; J45.909 Unspecified asthma, uncomplicated; F31.9 Bipolar disorder, unspecified; Z20.822 Contact with and (suspected) exposure to COVID-19; Z72.0 Tobacco use; Z88.0 Allergy status to penicillin; Z88.5 Allergy status to narcotic agent; Z88.8 Allergy status to other drugs, medicaments and biological substances; Z91.048 Other nonmedicinal substance allergy status
CPT/HCPCS: 96361; 85025; 36415; 81025; 81003; 83690; 80053; 0240U; 74177; 96374; 99284; Q9967; J7030; J2405

== ENCOUNTER 2022-01-22 00:43 | Emergency (ER) | payer OTHER ==
--- OUTSIDE RECORDS SUMMARY | 2022-01-22 00:46 | XMS REPORT | Continuity of Care Document ---
:1995 Author Organization [facility] t Address 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 Please see scanned labs for genetic report 03/02/19. Has Autosomal dominant THR syndrome Thyroid Thyroid Disease Active Univers nodule nodule 02-14 ity of 00:00: [place] [facility] Asthma Asthma Disease Active Overview: Univer s affecting affecting 2-16 Formattin i ty of 00:00: [place] of this [place] third in third 00 note Medica l trimester trimester might be Br anch different from the original. Dx at age 6-7. 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 Bipolar- since age 16-17 with suicidal attempt with conflict with mom. Trial of antidepre ssant and stopped med due to thyroid med problem. No med last 2 years.. Cannot control anger. No manic state. History of History of Disease Active Overview : Univers seizures seizures 2-16 Formattin ity of 00:00: g of this note Medical might be Branch different from [...] 00 Medical Branch Prometha Propensi Active Itching 2019-0 Itching Univ ers zine Hcl ty to 09-02 and hives ity o f adverse 00:00: [place] reaction 00 Medical s Branch PROMETHA DRUG Active ITCHING 2019-0 Univers ZINE HCL INGREDI 09-02 ity of 00:00: [place] [facility] Adhesive Propensi Active Rash 2016-0 Univer s Tape-Lolly ty to 3-08 ity of icones adverse 00:00: [place] reaction 00 Medical s Branch ADHESIVE DRUG Active Rash 2016-0 Univers TAPE-LOLLY 3-08 ity of ICONES 00:00: [place] 00 Medical Branch Hydrocod Drug Active Itching 2011- itching Univer s one Allergy 03-29 ity of 00:00: [place] 00 Medical Branch HYDROCOD DRUG Active Low Rash 2011- Univers ONE INGREDI 03-29 ity of 00:00: [place] [address] [facility] Social History Social Habit Start Date Stop Date Quantity Comments Source Exposure to 2021-11-30 2021-12-10 Not sure University SARS-CoV-2 (event) 00:00:00 15:44:00 [facility] Alcohol intake 2021-12-10 2021-12-10 0 /d University of 00:00:00 00:00:00 [facility] Cigarettes smoked 2021-08-30 2021-08-30 Univers ity of current (pack per 00:00:00 00:00:00 ) - Reported Branch Cigarette 2021-08-30 2021-08-30 University of pack-years 00:00:00 00:00:00 [facility] Tobacco use and 2021-08-30 2021-08-30 Never used Universit y of exposure 00:00:00 00:00:00 [facility] Tobacco Comment 2021-08-30 2021-08-30 2-3 cig /day Univers ity of 00:00:00 00:00:00 [facility] History of tobacco 2020-08-14 Smoker Univer sity of use 00:00:00 [facility] Sex Ass[birth year] At [birth year] Universit y of 00:00:00 00:00:00 [facility] Smoking Status Start Date Stop Date Source Current every day smoker 2021-08-30 00:00:00 [facility] Medications Ordered Filled Start Stop Current Ordering Indication Dosage Frequency Signature Comments Components Source Medication Medication Date Date Medication? Clinician (SIG) Name Name eli 2021- Yes [id number] 10mg Take 1 Univers (SINGULAIR) 5-10 06-10 tablet by it y of 10 mg 00:00: 04:59 mouth [place] tablet 00 :00 daily for Medical 30 days. [place] kylest 2021- Yes [id number] 10mg Take 1 Univers (SINGULAIR) 5-10 06-10 tablet by it y of 10 mg 00:00: 04:59 mouth [place] tablet 00 :00 daily for Medical 30 days. [place] eli 2021- Yes [id number] 10mg Take 1 Univers (SINGULAIR) 5-10 06-10 tablet by it y of 10 mg 00:00: 04:59 mouth [place] tablet 00 :00 daily for Medical 30 days. [place] benzonatate 2021- Yes [id number] 100mg Take 1 Univers (TESSALON 5-10 05-18 capsule by Simone) 100 00:00: 04:59 [place] mg capsule 00 :00 every 8 Medica l (eight) Branch hours for 7 days. benzonatate 2021- Yes [id number] 100mg Take 1 Univers (TESSALON 5-10 05-18 capsule by Simone) 100 00:00: 04:59 [place] mg capsule 00 :00 every 8 Medica l (eight) Branch hours for 7 days. ondansetron 2021- Yes [id number] 4mg Take 1 Univers 4 mg 5-10 05-16 tablet by ity of disintegrat 00:00: 04:59 [place] tablet 00 :00 every 8 Medica l (eight) Branch hours as needed for Nausea and Vomiting (N/V) for up to 5 days. ondansetron 2021- Yes [id number] 4mg Take 1 Univers 4 mg 5-10 05-16 tablet by ity of disintegrat 00:00: 04:59 [place] tablet 00 :00 every 8 Medica l (eight) Branch hours as needed for Nausea and Vomiting (N/V) for up to 5 days. acetaminoph Yes Take by Un mohamud en (TYLENOL 3-28 mouth. ity of ORAL) 17:23: [address] Branch acetaminoph 0 Yes Take by Un mohamud en (TYLENOL 3-28 mouth. ity of ORAL) 17:23: [address] Branch acetaminoph 0 Yes Take by Un mohamud en (TYLENOL 3-28 mouth. ity of ORAL) 17:23: [address] Branch bromphenira Yes [id number] 5mL Take 5 mL Univers mine-pseudo 3-28 by mouth 4 it y of ephedrine-D 00:00: (four[place] (BROMFED 00 times Medical DM) 2-30-10 daily as Bran ch mg/5 mL needed for syrup Congestion /Allergies . bromphenira 0 Yes [id number] 5mL Take 5 mL Univers mine-pseudo 3-28 by mouth 4 it y of ephedrine-D 00:00: (four[place] (BROMFED 00 times Medical DM) 2-30-10 daily as Bran ch mg/5 mL needed for syrup Congestion /Allergies . bromphenira 0 Yes [id number] 5mL Take 5 mL Univers mine-pseudo 3-28 by mouth 4 it y of ephedrine-D 00:00: (four) [place] (BROMFED 00 times Medical DM) 2-30-10 daily as Bran ch mg/5 mL needed for syrup Congestion /Allergies . albuterol Yes [id number] 2{puff} Inhale 2 Univers 90 2-26 Puffs ity of mcg/actuati 00:00: every 6 [place] as on inhaler 00 (six) Medical hours as Branch needed for Wheezing or Shortness of Breath. cetirizine Yes [id number] 10mg Take 1 U nivers 10 mg 2-26 tablet by ity of tablet 00:00: mouth [place] 00 daily. Medical Branch fluticasone Yes [id number] 2{spray Use 2 Univers propionate 2-26 } Sprays in ity of 50 00:00: each [place] mcg/actuati 00 nostril Medic al on nasal daily. Branch spray albuterol 0 Yes [id number] 2{puff} Inhale 2 Univers 90 2-26 Puffs ity of mcg/actuati 00:00: every 6 [place] as on inhaler 00 (six) Medical hours as Branch needed for Wheezing or Shortness of Breath. cetirizine 0 Yes [id number] 10mg Take 1 U nivers 10 mg 2-26 tablet by ity of tablet 00:00: mouth [place] 00 daily. Medical Branch fluticasone 0 Yes [id number] 2{spray Use 2 Univers propionate 2-26 } Sprays in ity of 50 00:00: each [place] mcg/actuati 00 nostril Medic al on nasal daily. Branch spray albuterol 0 Yes [id number] 2{puff} Inhale 2 Univers 90 2-26 Puffs ity of mcg/actuati 00:00: every 6 [place] as on inhaler 00 (six) Medical hours as Branch needed for Wheezing or Shortness of Breath. cetirizine 0 Yes [id number] 10mg Take 1 U nivers 10 mg 2-26 tablet by ity of tablet 00:00: mouth [place] 00 daily. Medical Branch fluticasone 0 Yes [id number] 2{spray Use 2 Univers propionate 2-26 } Sprays in ity of 50 00:00: each [place] mcg/actuati 00 nostril Medic al on nasal daily. Branch spray fluticasone 2020-08 Yes [id number] 1{puff} Inhale 1 Univers propion-ina 1-22 Puff every it y of meteroL 00:00: 12 [place] (ADVAIR () Medical DISKUS) hours. Branch 250-50 mcg/dose inhalation disk fluticasone 2020-08 Yes [id number] 1{puff} Inhale 1 Univers propion-ina 1-22 Puff every it y of meteroL 00:00: 12 [place] (ADVAIR () Medical DISKUS) hours. Branch 250-50 mcg/dose inhalation disk fluticasone 2020-08 Yes [id number] 1{puff} Inhale 1 Univers propion-ina 1-22 Puff every it y of meteroL 00:00: 12 [place] (ADVAIR () Medical DISKUS) hours. Branch 250-50 mcg/dose inhalation disk albuterol 2020-08 Yes [id number] 2{puff} Inhale 2 Univers 90 0-06 Puffs ity of mcg/actuati 00:00: every 6 [place] on inhaler 00 (six) Medical hours as Branch needed for Wheezing or Shortness of Breath. cetirizine 2020-08 Yes [id number] 10mg Take 1 U nivers (ZYRTEC) 10 0-06 tablet by ity of mg tablet 00:00: mouth [place] 00 daily. Medical Branch fluticasone 2020-08 Yes [id number] 1{spray Use 1 Univers propionate 0-06 } [place] ity o f 50 00:00: each [place] mcg/actuati 00 nostril Medic al on nasal daily. Branch spray azelastine 2020-08 Yes [id number] 1{spray Use 1 Univers 137 mcg 0-06 } [place] in ity of (0.1 %) 00:00: each [place] nasal spray 00 nostril 2 Med ical (two) Branch times daily. Use in each nostril as directed albuterol 2020-08 Yes [id number] 2{puff} Inhale 2 Univers 90 0-06 Puffs ity of mcg/actuati 00:00: every 6 [place] as on inhaler 00 (six) Medical hours as Branch needed for Wheezing or Shortness of Breath. cetirizine 2020-08 Yes [id number] 10mg Take 1 U nivers (ZYRTEC) 10 0-06 tablet by ity of mg tablet 00:00: mouth [place] 00 daily. Medical Branch fluticasone 2020-08 Yes [id number] 1{spray Use 1 Univers propionate 0-06 } [place] in ity o f 50 00:00: each [place] mcg/actuati 00 nostril Medic al on nasal daily. Branch spray azelastine 2020-08 Yes [id number] 1{spray Use 1 Univers 137 mcg 0-06 } [place] in ity of (0.1 %) 00:00: each [place] nasal spray 00 nostril 2 Med ical (two) Branch times daily. Use in each nostril as directed albuterol 2020-08 Yes [id number] 2{puff} Inhale 2 Univers 90 0-06 Puffs ity of mcg/actuati 00:00: every 6 [place] as on inhaler 00 (six) Medical hours as Branch needed for Wheezing or Shortness of Breath. cetirizine 2020-08 Yes [id number] 10mg Take 1 U nivers (ZYRTEC) 10 0-06 tablet by ity of mg tablet 00:00: mouth [place] 00 daily. Medical Branch fluticasone 2020-08 Yes [id number] 1{spray Use 1 Univers propionate 0-06 } [place] in ity o f 50 00:00: each [place] mcg/actuati 00 nostril Medic al on nasal daily. Branch spray azelastine 2020-08 Yes [id number] 1{spray Use 1 Univers 137 mcg 0-06 } [place] in ity of (0.1 %) 00:00: each [place] nasal spray 00 nostril 2 Med ical (two) Branch times daily. Use in each nostril as directed Immunizations Ordered Filled Immunization Date Status Comments [facility] e Immunization Name Name [facility] 2021-01-29 Completed University of 00:00:00 [facility] TDAP 2021-01-29 Completed University of 00:00:00 [facility] TDAP 2021-01-29 Completed University of 00:00:00 [facility] Influenza Virus 2018-09-27 Completed Universit y of Vaccine Quad .5 mL 00:00:00 [facility] 6+ [place] Influenza Virus 2018-09-27 Completed Universit y of Vaccine Quad .5 mL 00:00:00 [facility] 6+ [place] Influenza Virus 2018-09-27 Completed Universit y of Vaccine Quad .5 mL 00:00:00 [facility] 6+ [place] Influenza Virus 2016-10-20 Completed Universit y of Vaccine Quad IM 3+ 00:00:00 [facility] Influenza Virus 2016-10-20 Completed Universit y of Vaccine Quad IM 3+ 00:00:00 [facility] Influenza Virus 2016-10-20 Completed Universit y of Vaccine Quad IM 3+ 00:00:00 [facility] TDAP 2015-01-29 Completed University of 00:00:00 [facility] TDAP 2015-01-29 Completed University of 00:00:00 [facility] TDAP 2015-01-29 Completed University of 00:00:00 [facility] HPV 2010-07-05 Completed University of 00:00:00 [facility] Influenza Virus 2010-07-05 Completed Universit y of Vaccine - Whole 00:00:00 [facility] Branch HPV 2010-07-05 Completed University of 00:00:00 [facility] Influenza Virus 2010-07-05 Completed Universit y of Vaccine - Whole 00:00:00 [facility] Branch HPV 2010-07-05 Completed University of 00:00:00 [facility] Influenza Virus 2010-07-05 Completed Universit y of Vaccine - Whole 00:00:00 [facility] Branch HPV 2010-02-12 Completed University of 00:00:00 [facility] HPV 2010-02-12 Completed University of 00:00:00 [facility] HPV 2010-02-12 Completed University of 00:00:00 [facility] HPV 2009-12-14 Completed University of 00:00:00 [facility] HPV 2009-12-14 Completed University of 00:00:00 [facility] HPV 2009-12-14 Completed University of 00:00:00 [facility] Vital Signs Vital Name Observation Time Observation Value Comments Source Systolic blood 2021-12-10 20:45:00 134 mm[Hg] Univer sity of pressure [facility] Diastolic blood 2021-12-10 20:45:00 84 mm[Hg] Unive rsity of [facility] Heart rate 2021-12-10 20:45:00 91 /min [facility] Body temperature 2021-12-10 20:45:00 36.94 Lien [facility] [place] [facility] rate 2021-12-10 20:45:00 18 /min [facility] Body height 2021-12-10 20:45:00 162.6 cm [facility] Body weight 2021-12-10 20:45:00 83.235 kg [facility] BMI 2021-12-10 20:45:00 31.50 kg/m2 [facility] Oxygen saturation in 2021-12-10 20:45:00 98 /min [facility] blood by [facility] [place] Pulse oximetry Branch Procedures Procedure Date / Time Performed Performing Clinician Sourc e POCT GRP A STREP 2021-12-10 21:36:00 Tata Hammonds [facility] (MOLECULAR) [facility] POCT MOLECULAR FLU 2021-12-10 21:02:00 Tata Hammonds [facility] Encounters Start End Encounter Admission Attending Care Care Encounter Source Date/Time Date/Time Type Type Clinicians Facility Department ID 2022-01-08 2022-01-08 Refilana Elbertdieter [facility] [id number] Univers 00:00:00 00:00:00 [employer] [facility] [id number] it y of [place] [id number] Marty as ROSAS?BLEA [id number] [address] MEDICAL OFFICE [facility] 2021-12-11 2021-12-11 Telephone ADRIÁN Josue [id number] Univers 00:00:00 00:00:00 Rhonda BAILEY [id number] it y of [facility] [id number] [place] as [id number] [address] 2021-12-10 2021-12-10 Urgent Cecelia Vogel [facility] [id number] Univers 15:40:00 16:07:31 Care Cassius [facility] [id number] ity [facility] [id number] Marty as ROSAS?BLEA [id number] [address] OFFICE [facility] 2021-12-10 2021-12-10 Outpatient R LELA [facility] [id number] Univers 15:40:00 16:07:31 [facility] 2020-11-07 2020-11-07 [facility] [id number] 10:03:48 10:53:52 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 Visit REGIONAL [id number] MATERNAL [phone] & CHILD [address] [place] [address] 2019-10-28 2019-10-28 Outpatient Raju_P [facility] [id number] [place] 02:06:00 02:06:00 [id number] [facility] Results Test Description Test Time Test Comments Results Result Comments Source POCT GRP A STREP (MOLECULAR) 2021-12-10 21:46:00 Test Item Value Reference Range Interpretation Comme nts POCT GP A STREP (test code = 68481-1) negative Negative - Negat tigist Lab Interpretation (test code = 66803-2) [id number] 21:14:37 Test Item Value Reference Range Interpretation Comments POCT Molecular FluA (test code = Negative Negative 37866-5) POCT Molecular FluB (test code = Negative Negative 82754-0) Lab Interpretation (test code = Normal 39024-6) [facility]
[2022-01-22 01:28] LABS: Urine Blood Negative (Negative); Urine Glucose Negative (Negative); Urine Protein Negative (Negative); Urine Specific Gravity 1.025 (1.005-1.030)
[2022-01-22 01:30] LABS: Absolute Lymphocytes (CBC) 3.2 K/uL (0.7-4.9); Hematocrit 35.2 % (36.0-45.0); Lymphocytes % 31.4 % (15.3-44.8); RBC Red Blood Cell Count 5.59 M/uL (3.86-4.86)
[2022-01-22 01:38] LABS: Albumin 3.6 g/dL (3.4-5.0); Bilirubin Total 0.5 mg/dL (0.2-1.0); Potassium 3.7 mmol/L (3.5-5.1); Protein, Total 7.2 g/dL (6.4-8.2)
[2022-01-22] MEDS ORDERED: NA CHLORIDE 0.9% 1,000 ML ONE (01:38)
[2022-01-22] MEDS ORDERED: ONDANSETRON 4 MG/2 ML VIAL ONE (01:38)
[2022-01-22 01:54] LABS: Urine Specific Gravity/Preg 1.025 (1.005-1.030)
[2022-01-22 02:49] LABS: Anisocytosis 1+; Blood Morphology Comment NOTED (NOT SEEN); Hypochromasia 1+; Platelet Estimate ADEQ; White Blood Cell Scan OK (OK)
--- NOTE | 2022-01-22 04:11 | ER ---
Nurse's Notes [facility] Name: Deborah Torres Age: 26 yrs Sex: Female : 1995 Arrival Date: 01/22/2022 Time: 00:46 Bed 19 Private MD: Diagnosis: Abdominal pain, vomiting, intrauterine (5-week / 3-day) Presentation: 01/22 01:23 Chief complaint: Patient states: "I'm having nausea, vomiting, body aches, sore throat, as6 and I took a test and it was positive". Coronavirus screen: Client presents with at least one sign or symptom that may indicate coronavirus-19. Standard/surgical mask placed on the client. Provider contacted for isolation considerations. Ebola Screen: No symptoms or risks identified at this time. Initial Sepsis Screen: Does the patient meet any 2 criteria? No. Patient's initial sepsis screen is negative. Does the patient have a suspected source of infection? No. Patient's initial sepsis screen is negative. Risk Assessment: Do you want to hurt yourself or someone else? Patient reports no desire to harm self or others. Onset of symptoms is unknown. 01:23 Method Of Arrival: Ambulatory as6 01:23 Acuity: NORM 3 as6 PROP DRAWER: 01:43 LMP N/A - Irregular menses, Verified lg3 Historical: - Allergies: 01:25 HYDROCODONE; as6 01:25 PENICILLINS; as6 01:25 promethazine HCl; as6 01:25 Tape; as6 - PMHx: 01:25 Anxiety; Asthma; Bipolar disorder; Depression; Hypertension; Migraines; Pre-eclampsia; as6 Thyroid problem; - PSHx: 01:25 Tonsillectomy; section; as6 - Immunization history:: Client reports having NOT received the Covid vaccine. - Social history:: Smoking status: Patient reports the use of cigarette tobacco products, smokes one pack cigarettes per day. Screenin:39 Abuse screen: Denies threats or abuse. Denies injuries from another. Nutritional lg3 screening: No deficits noted. Tuberculosis screening: No symptoms or risk factors identified. Fall Risk None identified. Assessment: 01:39 General: Appears in no apparent distress. comfortable, Behavior is calm, cooperative. lg3 Pain: Complains of pain in generalized. Neuro: No deficits noted. [place] Agitation-Sedation Scale (RASS): 0 - Alert and Calm Level of Consciousness is awake, alert, obeys commands, Oriented to person, place, time, situation. Cardiovascular: No deficits noted. Denies chest pain, Capillary refill < 3 seconds Clubbing of nail beds is absent JVD is absent Patient's skin is warm and dry. Respiratory: No deficits noted. Airway is patent Trachea midline Respiratory effort is even, unlabored, Respiratory pattern is regular, symmetrical, Breath sounds are clear bilaterally. GI: Abdomen is round non-distended, Bowel sounds present X 4 quads. Abd is soft and non tender X 4 quads. Reports nausea, vomiting. : No deficits noted. No signs and/or symptoms were reported regarding the genitourinary system. EENT: No deficits noted. Reports sore throat. Derm: Parent/caregiver reports the patient having an increase of generalized bruising. Musculoskeletal: No deficits noted. No signs and/or symptoms reported regarding the musculoskeletal system. Circulation, motion, and sensation intact. Range of motion: intact in all extremities. 02:21 Reassessment: Patient appears in no apparent distress at this time. No changes from lg3 previously documented assessment. Patient and/or family updated on plan of care and expected duration. Pain level reassessed. Patient is alert, oriented x 3, equal unlabored respirations, skin warm/dry/pink. 04:01 Reassessment: Patient appears in no apparent distress at this time. No changes from ke1 previously documented assessment. Patient and/or family updated on plan of care and expected duration. Pain level reassessed. Patient is alert, oriented x 3, equal unlabored respirations, skin warm/dry/pink. Vital Signs: 01:23 BP 125 / 84; Pulse 94; Resp 18 S; Temp 98.5(O); Pulse Ox 100% on R/A; Weight 86.18 kg as6 (R); Height 5 ft. 4 in. (162.56 cm) (R); Pain 7/10; 01:23 Body Mass Index 32.61 (86.18 kg, 162.56 cm) as6 ED Course: 00:46 Patient arrived in ED. bp1 00:56 Rod Moya MD is Attending Physician. kdr 01:23 Inserted saline lock: 20 gauge in right antecubital area, using aseptic technique. oe Blood collected. 01:25 Triage completed. as6 01:26 Arm band placed on. as6 01:28 Diane Sanders, RN is Primary Nurse. lg3 01:28 Strep Sent. mw2 01:28 Flu Sent. mw2 01:28 COVID-19 SARS RT PCR (Document "Date of Onset" if Symptomatic) Sent. mw2 01:29 CBC with Diff Sent. lg3 01:29 CMP Sent. lg3 01:29 Lipase Sent. lg3 01:39 Patient has correct armband on for positive identification. Bed in low position. Call lg3 light in reach. Side rails up X 1. Client placed on continuous cardiac and pulse oximetry monitoring. NIBP monitoring applied. Door closed. Noise minimized. Warm blanket given. 01:39 Droplet isolation initiated. lg3 01:46 CBC Smear Scan Sent. lg3 02:20 HCG, Quantitative Sent. lg3 02:20 Throat Culture Sent. lg3 03:29 Transvaginal OB In Process Unspecified. EDMS 06:30 No provider procedures requiring assistance completed. IV discontinued. ke1 Administered Medications: 01:38 Drug: NS 0.9% 1000 ml Route: IV; Rate: 1 bolus; Site: right antecubital; lg3 01:38 Drug: Zofran (Ondansetron) 4 mg Route: IVP; Site: right antecubital; lg3 01:38 Follow up: Response: No adverse reaction lg3 Medication: 01:39 VIS not applicable for this client. lg3 Outcome: 04:10 Discharge ordered by . kdr 06:30 Discharged to home ambulatory. ke1 06:30 Condition: good 06:30 Discharge instructions given to patient. 06:31 Patient left the ED. ke1 Signatures: Dispatcher [employer] EDMS Rod Moya MD MD kdr Joshua Wilson oe Clem Pichardo mw2 Diane Sanders, RN RN lg3 Val Bedolla Ashby, ELÍAS MCKINLEY as6 Pascual Huertas, ELÍAS RN ke1 Corrections: (The following items were deleted from the chart) 01:52 01:46 QUANTITATIVE HCG+C.LAB.BRZ drawn and sent. lg3 EDMS
--- NOTE | 2022-01-22 04:11 | EDPHYS ---
Physician Documentation [facility] Name: Deborah Torres Age: 26 yrs Sex: Female : 1995 Arrival Date: 01/22/2022 Time: 00:46 Bed 19 Private MD: ED Physician Rod Moya HPI: 01/22 04:05 This 26 yrs old Female presents to ER via Ambulatory with complaints of Vomiting. kdr 04:05 Patient states that she is been feeling poorly for a few days. She states that she has kdr had some nausea, vomiting, body aches and sore throat. She also indicated that she recently took a test and found that it was positive. He is nontoxic-appearing and does not require immediate emergent intervention. Onset: The symptoms/episode began/occurred Over the last few days. Severity of symptoms: At their worst the symptoms were mild. The patient has not experienced similar symptoms in the past. The patient has not recently seen a physician. 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 - Social history:: Smoking status: Patient reports the use of cigarette tobacco products, smokes one pack cigarettes per day. ROS: 04:05 Constitutional: Negative for fever, chills, and weight loss, Eyes: Negative for injury, kdr pain, redness, and discharge, Neck: Negative for injury, pain, and swelling, Cardiovascular: Negative for chest pain, palpitations, and edema, Respiratory: Negative for shortness of breath, cough, wheezing, and pleuritic chest pain, Back: Negative for injury and pain, : Negative for injury, bleeding, discharge, and swelling, MS/Extremity: Negative for injury and deformity, Skin: Negative for injury, rash, and discoloration, Neuro: Negative for headache, weakness, numbness, tingling, and seizure activity. Psych: Negative for depression, anxiety, suicide ideation, homicidal ideation, and hallucinations, Allergy/Immunology: Negative for hives, rash, and allergies, Endocrine: Negative for neck swelling, polydipsia, polyuria, polyphagia, and marked weight changes, Hematologic/Lymphatic: Negative for swollen nodes, abnormal bleeding, and unusual bruising. 04:05 Abdomen/GI: Positive for abdominal pain, nausea and vomiting, Negative for diarrhea, constipation, abdominal cramps, abdominal distension, anorexia, dysphagia, hematemesis, black/tarry stool, rectal pain, rectal bleeding. Exam: 04:05 Constitutional: This is a well developed, well nourished patient who is awake, alert, kdr and in no acute distress. Head/Face: Normocephalic, atraumatic. Eyes: Pupils equal round and reactive to light, extra-ocular motions intact. Lids and lashes normal. Conjunctiva and sclera are non-icteric and not injected. Cornea within normal limits. Periorbital areas with no swelling, redness, or edema. Neck: Trachea midline, no thyromegaly or masses palpated, and no cervical lymphadenopathy. Supple, full range of motion without nuchal rigidity, or vertebral point tenderness. No Meningismus. Chest/axilla: Normal chest wall appearance and motion. Nontender with no deformity. No lesions are appreciated. Cardiovascular: Regular rate and rhythm with a normal S1 and S2. No gallops, murmurs, or rubs. Normal PMI, no JVD. No pulse deficits. Respiratory: Lungs have equal breath sounds bilaterally, clear to auscultation and percussion. No rales, rhonchi or wheezes noted. No increased work of breathing, no retractions or nasal flaring. Abdomen/GI: Soft, non-tender, with normal bowel sounds. No distension or tympany. No guarding or rebound. No evidence of tenderness throughout. Back: No spinal tenderness. No costovertebral tenderness. Full range of motion. Skin: Warm, dry with normal turgor. Normal color with no rashes, no lesions, and no evidence of cellulitis. MS/ Extremity: Pulses equal, no cyanosis. Neurovascular intact. Full, normal range of motion. Neuro: Awake and alert, GCS 15, oriented to person, place, time, and situation. Cranial nerves II-XII grossly intact. Motor strength 5/5 in all extremities. Sensory grossly intact. Cerebellar exam normal. Normal gait. Psych: Awake, alert, with orientation to person, place and time. Behavior, mood, and affect are within normal limits. Vital Signs: 01:23 BP 125 / 84; Pulse 94; Resp 18 S; Temp 98.5(O); Pulse Ox 100% on R/A; Weight 86.18 kg as6 (R); Height 5 ft. 4 in. (162.56 cm) (R); Pain 7/10; 01:23 Body Mass Index 32.61 (86.18 kg, 162.56 cm) as6 MDM: 04:05 Data reviewed: vital signs, nurses notes, lab test result(s), radiologic studies. ED kdr course: The loader technician indicated that the exam showed a 5-week 3-day intrauterine . The exam was otherwise unremarkable.. 04:10 Medical screening is not applicable. kdr 01/22 00:56 Order name: CBC with Diff; Complete Time: 03:55 kdr 01/22 00:56 Order name: CMP; Complete Time: 03:55 kdr 01/22 00:56 Order name: Lipase; Complete Time: 03:55 kdr 01/22 01:05 Order name: PT-INR kdr 01/22 01:05 Order name: Flu; Complete Time: 03:55 kdr 01/22 01:16 Order name: COVID-19 SARS RT PCR (Document "Date of Onset" if Symptomatic); Complete mw2 Time: 03:55 01/22 01:20 Order name: Strep; Complete Time: 02:21 lg3 01/22 01:28 Order name: Urine --Ancillary (enter results); Complete Time: 02:21 mw2 01/22 01:28 Order name: Urine Dipstick-Ancillary; Complete Time: 02:21 EDMS 01/22 01:44 Order name: CBC Smear Scan; Complete Time: 03:55 EDMS 01/22 01:52 Order name: Throat Culture [facility] 01/22 01:52 Order name: HCG, Quantitative; Complete Time: 03:55 EDMS 01/22 00:56 Order name: IV Saline Lock; Complete Time: 01:29 kdr 01/22 00:56 Order name: Labs collected and sent; Complete Time: 01:29 kdr 01/22 01:16 Order name: Urine Test (obtain specimen); Complete Time: 01:28 [facility] 01/22 01:16 Order name: Urine Dipstick-Ancillary (obtain specimen); Complete Time: 01:27 [facility] 01/22 03:29 Order name: Transvaginal OB EDMS Administered Medications: 01:38 Drug: NS 0.9% 1000 ml Route: IV; Rate: 1 bolus; Site: right antecubital; lg3 01:38 Drug: Zofran (Ondansetron) 4 mg Route: IVP; Site: right antecubital; lg3 01:38 Follow up: Response: No adverse reaction lg3 Disposition Summary: 01/22/22 04:10 Discharge Ordered Location: Home kdr Problem: new kdr Symptoms: have improved kdr Condition: Fair kdr Diagnosis - Abdominal pain, vomiting, intrauterine (5-week / 3-day) kdr Followup: kdr - With: Private Physician - When: 2 - 3 days - Reason: If symptoms return, Further diagnostic work-up, Recheck today's complaints, Continuance of care, Re-evaluation by your physician Discharge Instructions: - Discharge Summary Sheet kdr - First Trimester of , [id number] kdr - Nausea and Vomiting, Adult, [id number] kdr - Abdominal Pain During , [id number] kdr - Managing Stress During kdr Forms: - Medication Reconciliation Form kdr - Thank You Letter kdr Prescriptions: - Zofran 4 mg Oral Tablet - take 1 tablet by ORAL route every 4-6 hours As needed; 12 tablet; Refills: 0, kdr Product Selection Permitted - Pepcid 20 mg Oral Tablet - take 1 tablet by ORAL route once daily for 10 days; 10 tablet; Refills: 0, kdr Product Selection Permitted Signatures: Dispatcher [employer] EDMS Rod Moya MD MD kdr Clem Pichardo mw2 Diane Sanders RN RN lg3 David Villalobos, ELÍAS RN as6 Corrections: (The following items were deleted from the chart) 01:52 01:44 QUANTITATIVE HCG+C.LAB.BRZ ordered. EDMS EDMS 03:29 02:45 OB Limited+US.RAD.BRZ ordered. EDMS EDMS
[2022-01-22 05:15] LABS: Protime INR 0.99
[2022-01-22 06:53] VITALS: BP 125/84; TEMP 98.5; O2SAT 100
--- NOTE | 2022-01-22 13:36 | RAD REPORT ---
EXAM DESCRIPTION: US - Transvaginal OB - 01/22/2022 4:51 am COMPARISON: None. CLINICAL HISTORY: [facility] MAIN ABD PAIN TECHNIQUE: Transvaginal sonographic images of the pelvis were performed. FINDINGS: Uterus: The uterus is in a retroverted position. Endometrial Cavity: An intrauterine gestational sac is present and measures 5 mm. This correspond s to an estimated gestational age of 5 weeks 1 days. No pole is identified. Right Adnexa: The right ovary is unremarkable. Normal vascularity. This measures 3.3 x 2.0 x 2.4 cm. Left Adnexa: The left ovary is unremarkable. Incompletely visualized. This measures 2.5 x 1.5 x 2.2 cm. Peritoneal cavity: No free fluid is seen in the cul-de-sac. IMPRESSION: Early intrauterine gestation. Follow-up ultrasound in 14 days or more is recommended to assess viability. Electronically signed by: Kenrick Bazan MD 01/22/2022 4:34 AM CDT Due to temporary technical issues with the PACS/Fluency reporting system, reports are being signed by the in house radiologist without review as a courtesy to ensure prompt reporting. The interpreting r adiologist is fully responsible for the content of the report.
== END 2022-01-22 06:31 | disposition home or self-care (01) ==
LOC: ER 00:43
DX: O21.9 Vomiting of pregnancy, unspecified (principal); O99.331 Smoking (tobacco) complicating pregnancy, first trimester; F17.210 Nicotine dependence, cigarettes, uncomplicated; Z3A.01 Less than 8 weeks gestation of pregnancy; Z88.0 Allergy status to penicillin; Z88.5 Allergy status to narcotic agent; Z88.8 Allergy status to other drugs, medicaments and biological substances; Z91.048 Other nonmedicinal substance allergy status; Z20.822 Contact with and (suspected) exposure to COVID-19
CPT/HCPCS: 87070; 85025; 36415; 81025; 85610; 87081; 84702; 81003; 83690; 80053; 87804 ×2; 76817; U0003; J7030; J2405

== ENCOUNTER 2022-03-29 20:49 | Emergency (ER) | payer OTHER ==
--- OUTSIDE RECORDS SUMMARY | 2022-03-29 20:53 | XMS REPORT | Continuity of Care Document ---
:1995 Author Organization [facility] t Address [address] [place] [address] Care Team Providers Name Role Phone Soni Rivera Primary Care Physician Rosa Velasco MA Attending Clinician Unavailable Rhonda Josue RN Attending Clinician Unavailable ZIGGY VOGEL Attending Clinician Unavailable Ebrahim Ziggy GRUBBS Attending Clinician Provider, [facility] Attending Clinician Unavailable JAMILA ZALDIVAR Attending Clinician Unavailable KASHIF RYAN Attending Clinician Unavailable Kashif Solano Attending Clinician SONI ASHLEY Attending Clinician Unavailable Jamila Zaldivar MD Attending Clinician Miguel Denson MD Attending Clinician MIGUEL DENSON Attending Clinician Unavailable Doctor Unassigned, [place] Attending Clinician Unavailable Opal Osorio Attending Clinician Denzelu_P Attending Clinician Unavailable Raju_P Admitting Clinician Unavailable Payers Payer Name Policy Type Policy Number Effective Date Expiration Date S ource Problems Condition Condition Condition Status Onset Resolution Last Treating Co mments Source Name Details Category Date Date Treatment Clinician Date History of History of Disease Active U nivers 6-30 ity of labor labor 00:00: [place] 00 [facility] History of History of Disease Active U nivers miscarriag miscarriag 6 it y of e, e, 00:00: [place] currently currently 00 [facility] Branch Tobacco Tobacco Disease Active Univers abuse abuse 6 ity of 00:00: [place] 00 [facility] Disease Active Uni vers with with 2-11 ity of inconclusi inconclusi [place] Med[place] viability, viability, Br anch single or single or unspecifie unspecifie d fetus d fetus History of History of Disease Active U nivers 9- ity of section section 00:00: [place] 00 [facility] Branch COVID-19 COVID-19 Disease Active Unive rs virus IgG virus IgG 8-18 ity of antibody antibody 00:00: [place] detected detected 00 Medica l Branch Marijuana Marijuana Disease Active Uni vers use use 1-19 ity of 00:00: [place] 00 [facility] Branch History of History of Disease Active U nivers gestationa gestationa 1-31 it y of l l 00:00: [place] hypertensi hypertensi 00 Me dical on on Branch Thyroid Thyroid Disease Active Overview: Univ ers hormone hormone 7-15 Formattin ity o f resistance resistance 00:00: 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 Please see scanned labs for genetic report 03/02/19. Has Autosomal dominant THR syndrome Thyroid Thyroid Disease Active Univers nodule nodule 7-15 ity of 00:00: [place] 00 Medical [facility] Asthma Asthma Disease Active Overview: Univer s affecting affecting 2-16 Formattin i ty of 00:00: [place] third in third 00 note Medica l trimester trimester might be Br anch different from the original. Dx at age 6-7. Inhaler combivent , albuterol nebulizer and xopinex.I CD10 Diagnosis [employer] Utility Anxiety Anxiety Disease Active Overview: [...] [place] [facility] Prometha Propensi Active Itching Itching Univ ers zine Hcl ty to 09-02 and hives ity o f adverse 00:00: [place] reaction Medical s Branch PROMETHA DRUG Active ITCHING Univers ZINE HCL INGREDI 09-02 ity of 00:00: [place] [facility] Adhesive Propensi Active Rash 2015- Univer s Tape-Lolly ty to 3-08 ity of icones adverse 00:00: [place] reaction Medical s Branch ADHESIVE DRUG Active Rash Univers TAPE-LOLLY 3-08 ity of ICONES 00:00: Medical Branch Hydrocod Drug Active Itching itching Univer s one Allergy 03-29 ity of 00:00: [place] [facility] HYDROCOD DRUG Active Low Rash 2011- Univers ONE INGREDI 03-29 ity of 00:00: Medical Branch Social History Social Habit Start Date Stop Date Quantity Comments Source ASSERTION 2022-01-02 University of 00:00:00 [facility] Exposure to 2022-03-10 2022-03-20 Yes [place] of SARS-CoV-2 (event) 00:00:00 17:34:00 [facility] Alcohol intake 2022-03-20 2022-03-20 0 /d University of 00:00:00 00:00:00 [facility] Cigarettes smoked 2022-02-27 2022-02-27 Univers ity of current (pack per 00:00:00 00:00:00 [facility] ed) - Reported Branch Cigarette 2022-02-27 2022-02-27 University of pack-years 00:00:00 00:00:00 [facility] Tobacco use and 2022-02-27 2022-02-27 Smokeless Universit y of exposure 00:00:00 00:00:00 tobacco [facility]-user [facility] Comment 2022-02-27 2022-02-27 2-3 cig /day Univers ity of 00:00:00 00:00:00 [facility] History of tobacco 2020-08-14 Cigarette Smoker University of use 00:00:00 [facility] Sex Assigned At [address] [facility] 00:[facility] Smoking Status Start Date Stop Date Source Smokes tobacco daily 2022-02-27 00:00:00 [facility] ity of [facility] Medications Ordered Filled Start Stop Current Ordering Indication Dosage Frequency Signature Comments Components Source Medication Medication Date Date Medication? Clinician (SIG) Name Name ondansetron 2021- Yes [id number] 4mg Take 1 Univers 4 mg 8-18 08-24 tablet by ity of disintegrat 00:00: 04:59 [place] :00 every 8 Medica l (eight) Branch hours as needed for Nausea and Vomiting (N/V) for up to 5 days. ondansetron 2021- Yes [id number] 4mg Take 1 Univers 4 mg 8-18 08-24 tablet by ity of disintegrat 00:00: 04:59 [place] 00 :00 every 8 Medica l (eight) Branch hours as needed for Nausea and Vomiting (N/V) for up to 5 days. ondansetron 2021- Yes [id number] 4mg Take 1 Univers 4 mg 8-18 08-24 tablet by ity of disintegrat 00:00: 04:59 [place] 00 :00 every 8 Medica l (eight) Branch hours as needed for Nausea and Vomiting (N/V) for up to 5 days. ondansetron 2021- Yes [id number] 4mg Take 1 Univers 4 mg 8-18 08-24 tablet by ity of disintegrat 00:00: 04:59 [place] :00 every 8 Medica l (eight) Branch hours as needed for Nausea and Vomiting (N/V) for up to 5 days. amoxicillin 2021- Yes [id number] 1{tbl} Take 1 Univers -clavulanat 8- 08-12 tablet by it y of e 875-125 00:00: 04:59 mouth [place] mg per 00 :00 every 12 Medical tablet (twelve) Branch hours for 10 days. Levothyroxi 2021- No [id number] 25ug Take 1 Univers ne 25 mcg 7-29 -29 capsule by ity of capsule 00:00: 00:00 mouth in [place] 00 :00 the Medical morning. Branch doxylamine Yes [id number] 25mg Take 1 Univers 25 mg 7-28 tablet by ity of tablet 00:00: mouth at [place] [address] bedtime. Medical Branch doxylamine Yes [id number] 25mg Take 1 Univers 25 mg 7-28 tablet by ity of tablet 00:00: mouth at [place] 00 bedtime. Medical Branch doxylamine Yes [id number] 25mg Take 1 Univers 25 mg 7-28 tablet by ity of tablet 00:00: mouth at [place] 00 bedtime. Medical Branch doxylamine 0 Yes [id number] 25mg Take 1 Univers 25 mg 7-28 tablet by ity of tablet 00:00: mouth at [place] 00 bedtime. Medical Branch doxylamine Yes [id number] 25mg Take 1 Univers 25 mg 7-28 tablet by ity of tablet 00:00: mouth at [place] [address] bedtime. Medical Branch doxylamine Yes [id number] 25mg Take 1 Univers 25 mg 7-28 tablet by ity of tablet 00:00: mouth at [place] 00 bedtime. Medical Branch doxylamine- Yes [id number] Doxylamine Univers pyridoxine, 02-07 10 ity of vit B6, 00:00: mg/pyridox [place] (DICLEGIS[place] 00 ine 10 mg Medi rosa isela 10-10 mg (Diclegis) Branc h per tablet : Oral: Initial: Two tablets at bedtime on day 1 and 2; if symptoms persist, take 1 tablet in morning and 2 tablets at bedtime on day 3; if symptoms persist, may increase to 1 tablet in morning, 1 tablet mid-aftern oon, and 2 tablets at bedtime on day 4 (maximum: doxylamine 40 mg/pyridox ine 40 mg (4 tablets) per day). albuterol Yes [id number] 2{puff} Inhale 2 Univers 90 7-08 Puffs ity of mcg/actuati 00:00: every 6 [place] on inhaler 00 (six) Medical hours as Branch needed for Shortness of Breath. doxylamine- Yes [id number] Doxylamine Univers pyridoxine, 02-07 10 ity of vit B6, 00:00: mg/pyridox [place] (DICLEGIS[place] 00 ine 10 mg Medi rosa isela 10-10 mg (Diclegis) Branc h per tablet : Oral: Initial: Two tablets at bedtime on day 1 and 2; if symptoms persist, take 1 tablet in morning and 2 tablets at bedtime on day 3; if symptoms persist, may increase to 1 tablet in morning, 1 tablet mid-aftern oon, and 2 tablets at bedtime on day 4 (maximum: doxylamine 40 mg/pyridox ine 40 mg (4 tablets) per day). albuterol Yes [id number] 2{puff} Inhale 2 Univers 90 7-08 Puffs ity of mcg/actuati 00:00: every 6 [place] on inhaler 00 (six) Medical hours as Branch needed for Shortness of Breath. doxylamine- Yes [id number] Doxylamine Univers pyridoxine, 02-07 10 ity of vit B6, 00:00: mg/pyridox [place] (DICLEGIS[place] 00 ine 10 mg Medi rosa isela 10-10 mg (Diclegis) Branc h per tablet : Oral: Initial: Two tablets at bedtime on day 1 and 2; if symptoms persist, take 1 tablet in morning and 2 tablets at bedtime on day 3; if symptoms persist, may increase to 1 tablet in morning, 1 tablet mid-aftern oon, and 2 tablets at bedtime on day 4 (maximum: doxylamine 40 mg/pyridox ine 40 mg (4 tablets) per day). albuterol Yes [id number] 2{puff} Inhale 2 Univers 90 7-08 Puffs ity of mcg/actuati 00:00: every 6 [place] on inhaler 00 (six) Medical hours as Branch needed for Shortness of Breath. doxylamine- Yes [id number] Doxylamine Univers pyridoxine, 02-07 10 ity of vit B6, 00:00: mg/pyridox [place] (DICLEGIS[place] 00 ine 10 mg Medi rosa isela 10-10 mg (Diclegis) Branc h per tablet : Oral: Initial: Two tablets at bedtime on day 1 and 2; if symptoms persist, take 1 tablet in morning and 2 tablets at bedtime on day 3; if symptoms persist, may increase to 1 tablet in morning, 1 tablet mid-aftern oon, and 2 tablets at bedtime on day 4 (maximum: doxylamine 40 mg/pyridox ine 40 mg (4 tablets) per day). albuterol Yes [id number] 2{puff} Inhale 2 Univers 90 7-08 Puffs ity of mcg/actuati 00:00: every 6 [place] on inhaler 00 (six) Medical hours as Branch needed for Shortness of Breath. doxylamine- Yes [id number] Doxylamine Univers pyridoxine, 02-07 10 ity of vit B6, 00:00: mg/pyridox [place] (DICLEGIS[place] 00 ine 10 mg Medi rosa isela 10-10 mg (Diclegis) Branc h per tablet : Oral: Initial: Two tablets at bedtime on day 1 and 2; if symptoms persist, take 1 tablet in morning and 2 tablets at bedtime on day 3; if symptoms persist, may increase to 1 tablet in morning, 1 tablet mid-aftern oon, and 2 tablets at bedtime on day 4 (maximum: doxylamine 40 mg/pyridox ine 40 mg (4 tablets) per day). albuterol Yes [id number] 2{puff} Inhale 2 Univers 90 7-08 Puffs ity of mcg/actuati 00:00: every 6 [place] inhaler 00 (six) Medical hours as Branch needed for Shortness of Breath. doxylamine- Yes [id number] Doxylamine Univers pyridoxine, 02-07 10 ity of vit B6, 00:00: mg/pyridox [place] (DICLEGIS[place] 00 ine 10 mg Medi rosa isela 10-10 mg (Diclegis) Branc h per tablet : Oral: Initial: Two tablets at bedtime on day 1 and 2; if symptoms persist, take 1 tablet in morning and 2 tablets at bedtime on day 3; if symptoms persist, may increase to 1 tablet in morning, 1 tablet mid-aftern oon, and 2 tablets at bedtime on day 4 (maximum: doxylamine 40 mg/pyridox ine 40 mg (4 tablets) per day). albuterol Yes [id number] 2{puff} Inhale 2 Univers 90 7-08 Puffs ity of mcg/actuati 00:00: every 6 [place] inhaler 00 (six) Medical hours as Branch needed for Shortness of Breath. doxylamine- Yes [id number] Doxylamine Univers pyridoxine, 02-07 10 ity of vit B6, 00:00: mg/pyridox [place] (DICLEGIS[place] 00 ine 10 mg Medi rosa isela 10-10 mg (Diclegis) Branc h per tablet : Oral: Initial: Two tablets at bedtime on day 1 and 2; if symptoms persist, take 1 tablet in morning and 2 tablets at bedtime on day 3; if symptoms persist, may increase to 1 tablet in morning, 1 tablet mid-aftern oon, and 2 tablets at bedtime on day 4 (maximum: doxylamine 40 mg/pyridox ine 40 mg (4 tablets) per day). albuterol Yes [id number] 2{puff} Inhale 2 Univers 90 7-08 Puffs ity of mcg/actuati 00:00: every 6 [place] inhaler 00 (six) Medical hours as Branch needed for Shortness of Breath. doxylamine- Yes [id number] Doxylamine Univers pyridoxine, 7-08 10 ity of vit B6, 00:00: mg/pyridox [place] (DICLEGIS[place] 00 ine 10 mg Medi rosa isela 10-10 mg (Diclegis) Branc h per tablet : Oral: Initial: Two tablets at bedtime on day 1 and 2; if symptoms persist, take 1 tablet in morning and 2 tablets at bedtime on day 3; if symptoms persist, may increase to 1 tablet in morning, 1 tablet mid-aftern oon, and 2 tablets at bedtime on day 4 (maximum: doxylamine 40 mg/pyridox ine 40 mg (4 tablets) per day). albuterol Yes [id number] 2{puff} Inhale 2 Univers 90 7-08 Puffs ity of mcg/actuati 00:00: every 6 [place] on inhaler 00 (six) Medical hours as Branch needed for Shortness of Breath. aspirin 81 Yes [id number] 81mg Take 1 Univers mg EC 7-07 tablet by ity of tablet 00:00: mouth [place] 00 daily. Medical Branch aspirin 81 Yes [id number] 81mg Take 1 Univers mg EC 7-07 tablet by ity of tablet 00:00: mouth [place] 00 daily. Medical Branch aspirin 81 0 Yes [id number] 81mg Take 1 Univers mg EC 7-07 tablet by ity of tablet 00:00: mouth [place] 00 daily. Medical Branch aspirin 81 0 Yes [id number] 81mg Take 1 Univers mg EC 7-07 tablet by ity of tablet 00:00: mouth [place] 00 daily. Medical Branch aspirin 81 0 Yes [id number] 81mg Take 1 Univers mg EC 7-07 tablet by ity of tablet 00:00: mouth [place] 00 daily. Medical Branch aspirin 81 0 Yes [id number] 81mg Take 1 Univers mg EC 7-07 tablet by ity of tablet 00:00: mouth [place] 00 daily. Medical Branch aspirin 81 0 Yes [id number] 81mg Take 1 Univers mg EC 7-07 tablet by ity of tablet 00:00: mouth [place] 00 daily. Medical Branch aspirin 81 2021-0 Yes [id number] 81mg Take 1 Univers mg EC 7-07 tablet by ity of tablet 00:00: mouth [place] 00 daily. Medical Branch aspirin 81 2021-0 Yes [id number] 81mg Take 1 Univers mg EC 7-07 tablet by ity of tablet 00:00: mouth [place] 00 daily. Medical Branch Prenat Vit 2021-0 Yes [id number] 1{packe Take 1 Univers Comb.10-Iro 6-27 t} Packet by ity of n-FA-DHA 00:00: mouth [place] (VITAFOL-OB 00 daily. Medica l +DHA) Branch 65-1-250 mg combo pack Prenat Vit 2021-0 Yes [id number] 1{packe Take 1 Univers Comb.10-Iro 6-27 t} Packet by ity of n-FA-DHA 00:00: mouth [place] (VITAFOL-OB 00 daily. Medica l +DHA) Branch 65-1-250 mg combo pack Prenat Vit 2021-0 Yes [id number] 1{packe Take 1 Univers Comb.10-Iro 6-27 t} Packet by ity of n-FA-DHA 00:00: mouth [place] (VITAFOL-OB 00 daily. Medica l +DHA) Branch 65-1-250 mg combo pack Prenat Vit 2021-0 Yes [id number] 1{packe Take 1 Univers Comb.10-Iro 6-27 t} Packet by ity of n-FA-DHA 00:00: mouth [place] (VITAFOL-OB 00 daily. Medica l +DHA) Branch 65-1-250 mg combo pack Prenat Vit 2021-0 Yes [id number] 1{packe Take 1 Univers Comb.10-Iro 6-27 t} Packet by ity of n-FA-DHA 00:00: mouth [place] (VITAFOL-OB 00 daily. Medica l +DHA) Branch 65-1-250 mg combo pack Prenat Vit 2-0 Yes [id number] 1{packe Take 1 Univers Comb.10-Iro 6-27 t} Packet by ity of n-FA-DHA 00:00: mouth [place] (VITAFOL-OB 00 daily. Medica l +DHA) Branch 65-1-250 mg combo pack Prenat Vit 2022-0 Yes [id number] 1{packe Take 1 Univers Comb.10-Iro 6-27 t} Packet by ity of n-FA-DHA 00:00: mouth [place] (VITAFOL-OB 00 daily. Medica l +DHA) Branch 65-1-250 mg combo pack Prenat Vit 2022-0 Yes [id number] 1{packe Take 1 Univers Comb.10-Iro 6-27 t} Packet by ity of n-FA-DHA 00:00: mouth [place] (VITAFOL-OB 00 daily. Medica l +DHA) Branch 65-1-250 mg combo pack Prenat Vit 2022-0 Yes [id number] 1{packe Take 1 Univers Comb.10-Iro 6-27 t} Packet by ity of n-FA-DHA 00:00: mouth [place] (VITAFOL-OB 00 daily. Medica l +DHA) Branch 65-1-250 mg combo pack Prenat Vit 2-0 Yes [id number] 1{packe Take 1 Univers Comb.10-Iro 6-27 t} Packet by ity of n-FA-DHA 00:00: mouth [place] (VITAFOL-OB 00 daily. Medica l +DHA) Branch 65-1-250 mg combo pack Immunizations Ordered Filled Immunization Date Status Comments [facility] e Immunization Name Name [facility] 2021-01-29 Completed University of 00:00:00 [facility] TDAP 2021-01-29 Completed University of 00:00:00 [facility] TDAP 2021-01-29 Completed University of 00:00:00 [facility] TDAP 2021-01-29 Completed University of 00:00:00 [facility] TDAP 2021-01-29 Completed University of 00:00:00 [facility] TDAP 2021-01-29 Completed University of 00:00:00 [facility] TDAP 2021-01-29 Completed University of 00:00:00 [facility] TDAP 2021-01-29 Completed University of 00:00:00 [facility] TDAP 2021-01-29 Completed University of 00:00:00 [facility] TDAP 2021-01-29 Completed University of 00:00:00 [facility] Influenza Virus 2018-09-27 Completed Universit y of Vaccine Quad .5 mL 00:00:00 [place] [facility] IM 6+ MO Branch Influenza Virus 2018-09-27 Completed Universit y of Vaccine Quad .5 mL 00:00:00 [place] [facility] IM 6+ MO Branch Influenza Virus 2018-09-27 Completed Universit y of Vaccine [place] .5 mL 00:00:00 [place] [facility] IM 6+ MO Branch Influenza Virus 2018-09-27 Completed Universit y of Vaccine [place] .5 mL 00:00:00 [place] [facility] IM 6+ MO Branch Influenza Virus 2018-09-27 Completed Universit y of Vaccine [place] .5 mL 00:00:00 [place] [facility] IM 6+ MO Branch Influenza Virus 2018-09-27 Completed Universit y of Vaccine [place] .5 mL 00:00:00 [place] [facility] IM 6+ MO Branch Influenza Virus 2018-09-27 Completed Universit y of Vaccine [place] .5 mL 00:00:00 [place] [facility] IM 6+ MO Branch Influenza Virus 2018-09-27 Completed Universit y of Vaccine [place] .5 mL 00:00:00 [place] [facility] IM 6+ MO Branch Influenza Virus 2018-09-27 Completed Universit y of Vaccine [place] .5 mL 00:00:00 [place] [facility] IM 6+ MO Branch Influenza Virus 2018-09-27 Completed Universit y of Vaccine [place] .5 mL 00:00:00 [place] [facility] 6+ MO Branch Influenza Virus 2016-10-20 Completed Universit y of Vaccine [place] IM 3+ 00:00:00 [facility] Influenza Virus 2016-10-20 Completed Universit y of Vaccine Quad IM 3+ 00:00:00 [facility] Influenza Virus 2016-10-20 Completed Universit y of Vaccine [place] IM 3+ 00:00:00 [facility] Influenza Virus 2016-10-20 Completed Universit y of Vaccine [place] IM 3+ 00:00:00 [facility] Influenza Virus 2016-10-20 Completed Universit y of Vaccine [place] IM 3+ 00:00:00 [facility] Influenza Virus 2016-10-20 Completed Universit y of Vaccine [place] IM 3+ 00:00:00 [facility] Influenza Virus 2016-10-20 Completed Universit y of Vaccine Quad IM 3+ 00:00:00 [facility] Influenza Virus 2016-10-20 Completed Universit y of Vaccine Quad IM 3+ 00:00:00 [facility] Influenza Virus 2016-10-20 Completed Universit y of Vaccine Quad IM 3+ 00:00:00 [facility] Influenza Virus 2016-10-20 Completed Universit y of Vaccine Quad IM 3+ 00:00:00 [facility] TDAP 2015-01-29 Completed University of 00:00:00 [facility] TDAP 2015-01-29 Completed University of 00:00:00 [facility] TDAP 2015-01-29 Completed University of 00:00:00 [facility] TDAP 2015-01-29 Completed University of 00:00:00 [facility] TDAP 2015-01-29 Completed University of 00:00:00 [facility] TDAP 2015-01-29 Completed University of 00:00:00 [facility] TDAP 2015-01-29 Completed University of 00:00:00 [facility] TDAP 2015-01-29 Completed University of 00:00:00 [facility] TDAP 2015-01-29 Completed University of 00:00:00 [facility] TDAP 2015-01-29 Completed University of 00:00:00 [facility] HPV 2010-07-05 Completed University of 00:00:00 [facility] Influenza Virus 2010-07-05 Completed Universit y of Vaccine - Whole 00:00:00 [facility] HPV 2010-07-05 Completed University of 00:00:00 [facility] Influenza Virus 2010-07-05 Completed Universit y of Vaccine - Whole 00:00:00 [facility] HPV 2010-07-05 Completed University of 00:00:00 [facility] Influenza Virus 2010-07-05 Completed Universit y of Vaccine - Whole 00:00:00 [facility] HPV 2010-02-12 Completed University of 00:00:00 [facility] HPV 2010-02-12 Completed University of 00:00:00 [facility] HPV 2010-02-12 Completed University of 00:00:00 [facility] HPV 2009-12-14 Completed University of 00:00:00 [facility] HPV 2009-12-14 Completed University of 00:00:00 [facility] HPV 2009-12-14 Completed University of 00:00:00 [facility] Vital Signs Vital Name Observation Time Observation Value Comments Source Systolic blood 2022-03-20 22:37:00 126 mm[Hg] Univer sity of pressure [facility] Diastolic blood 2022-03-20 22:37:00 80 mm[Hg] Unive rsity of pressure [place] [facility] Heart rate 2022-03-20 22:37:00 83 /min Universi ty of [place] [facility] Body temperature 2022-03-20 22:37:00 37.33 Lien Univ ersity of [place] [facility] Respiratory rate 2022-03-20 22:37:00 18 /min Univ ersity of [place] [facility] Body height 2022-03-20 22:37:00 162.6 cm Universi ty of [place] [facility] Body weight 2022-03-20 22:37:00 86.637 kg Universi ty of [place] [facility] BMI 2022-03-20 22:37:00 32.79 kg/m2 Universi ty of [place] [facility] Oxygen saturation in 2022-03-20 22:37:00 97 /min University of Arterial blood by [place] [employer] rosa isela Pulse oximetry Branch Systolic blood 2022-03-03 21:16:00 127 mm[Hg] Univer sity of pressure [place] [facility] Diastolic blood 2022-03-03 21:16:00 79 mm[Hg] Unive rsity of pressure [place] [facility] Heart rate 2022-03-03 21:16:00 98 /min Universi ty of [place] [facility] Body temperature 2022-03-03 21:16:00 37.22 Lien Univ ersity of [place] [facility] Respiratory rate 2022-03-03 21:16:00 18 /min Univ ersity of [place] [facility] Body height 2022-03-03 21:16:00 162.6 cm Universi ty of [place] [facility] Body weight 2022-03-03 21:16:00 86.637 kg Universi ty of [place] [facility] BMI 2022-03-03 21:16:00 32.79 kg/m2 Universi ty of [place] [facility] Oxygen saturation in 2022-03-03 21:16:00 97 /min University of Arterial blood by [place] [employer] rosa isela Pulse oximetry Branch Systolic blood 2022-02-27 18:51:00 139 mm[Hg] Univer sity of pressure [place] [facility] Diastolic blood 2022-02-27 18:51:00 84 mm[Hg] Unive rsity of pressure [place] [facility] Heart rate 2022-02-27 18:51:00 94 /min Universi ty of [place] [facility] Body temperature 2022-02-27 18:51:00 36.89 Lien Univ ersity of [place] [facility] Respiratory rate 2022-02-27 18:51:00 18 /min Univ ersity of [place] [facility] Body height 2022-02-27 18:51:00 162.6 cm Universi ty of [place] [facility] Body weight 2022-02-27 18:51:00 86.637 kg Universi ty of [place] [facility] BMI 2022-02-27 18:51:00 32.79 kg/m2 Universi ty of [facility] Systolic blood 2022-02-07 22:20:00 125 mm[Hg] Univer sity of pressure [place] [facility] Diastolic blood 2022-02-07 22:20:00 76 mm[Hg] Unive rsity of pressure [facility] Heart rate 2022-02-07 22:20:00 112 /min Universi ty of [place] [facility] Respiratory rate 2022-02-07 22:20:00 17 /min Univ ersity of [place] [facility] Body height 2022-02-07 22:20:00 162.6 cm Universi ty of [place] [facility] Body weight 2022-02-07 22:20:00 87.091 kg Universi ty of [place] [facility] BMI 2022-02-07 22:20:00 32.96 kg/m2 Universi ty of [facility] Oxygen saturation in 2022-02-07 22:20:00 99 /min University of Arterial blood by [facility] Pulse oximetry Branch Systolic blood 2022-02-06 18:06:00 124 mm[Hg] Univer sity of pressure [place] [facility] Diastolic blood 2022-02-06 18:06:00 83 mm[Hg] Unive rsity of pressure [place] [facility] Heart rate 2022-02-06 18:06:00 74 /min Universi ty of [facility] Body temperature 2022-02-06 18:06:00 36.61 Lien Univ ersity of [facility] Respiratory rate 2022-02-06 18:06:00 19 /min [facility] Body height 2022-02-06 18:06:00 162.6 cm [facility] Body weight 2022-02-06 18:06:00 87.59 kg [facility] BMI 2022-02-06 18:06:00 33.15 kg/m2 [facility] Procedures Procedure Date / Time Performed Performing Clinician Sourc e POCT MOLECULAR STREP 2022-03-20 22:48:00 Ziggy Vogel [facility] CONSENT/REFUSAL FOR 2022-03-03 21:12:46 Doctor Unassigned, No Un [facility] DIAGNOSIS AND Name [facility] TREATMENT POCT URINALYSIS W/O 2022-02-27 00:00:00 Sam Zaldivarn [facility] SPECIFIC Formerly [facility] <14 WEEKS US 2022-02-06 22:17:13 Zen Jamila [facility] POCT URINALYSIS W/O 2022-02-06 18:15:00 Zen Jamila [facility] 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 2022-01-27 05:01:00 Doctor Unassigned, No [facility] ULTRASOUND Name [facility] Encounters Start End Encounter Admission Attending Care Care Encounter Source Date/Time Date/Time Type Type Clinicians Facility Department ID 2022-03-24 2022-03-24 ANNETTE Haley [id number] Univers 00:00:00 00:00:00 Management Rosa OLIVAS 350.1.13.10 ity [facility] [place]2.7.2.[place] [phone] [facility] 086 Branch 2022-03-21 2022-03-21 ADRIÁN Murray [id number] Univers 00:00:00 00:00:00 (Out) Rhonda AVALOS 350.1.13.10 it y of [facility] 4.2.7.2.686 Marty as [phone] [facility] 019 Branch 2022-03-20 2022-03-20 Outpatient R LELA [facility] [id number] Univers 17:40:00 18:04:01 [facility] 2022-03-20 2022-03-20 Urgent Lela RUST [id number] Univers 17:40:00 18:00:00 Care [facility] 350.1.13.10 it y of [place] 4.2.7.2.686 Marty as ROSAS?BLEA [id number] In marcela [address] MEDICAL OFFICE BUILDING 2022-03-20 2022-03-20 Outpatient R [facility] [id number] Univers 17:40:00 17:40:00 [id number] ity of [facility] 2022-03-20 2022-03-20 [facility] [id number] Univers 17:15:00 17:15:00 RANIA ity of [facility] 2022-03-20 2022-03-20 Letter Provider, RUST [id number] Univers 00:00:00 00:00:00 (Out) [facility] 350.1.13.10 it y of Urgent Care [place] 4.2.7.2.686 [place] ROSAS?BLEA [id number] [address] MEDICAL OFFICE [facility] 2022-03-18 2022-03-18 Outpatient R [facility] [id number] Univers 13:00:00 13:00:00 [id number] ity of [facility] 2022-03-18 2022-03-18 Outpatient R [facility]AMILA [facility] [id number] Univers 13:00:00 13:00:00 ity of [facility] 2022-03-13 2022-03-13 Outpatient R [facility]AMILA [facility] [id number] Univers 09:00:00 09:00:00 [id number] ity of [facility] 2022-03-07 2022-03-07 Outpatient [facility] [id number] Univers 08:30:00 08:30:00 [id number] ity of [facility] 2022-03-07 2022-03-07 Outpatient R JAMILA [facility] [id number] Univers 08:30:00 08:30:00 ity of [facility] 2022-03-03 2022-03-03 Emergency X RIDDLE, RUST ERT [id number] Univers 16:18:00 16:40:00 KASHIF it y of [facility] 2022-03-03 2022-03-03 Emergency [place], RUST [id number] Univers 16:18:00 16:40:00 Chanoguerrero MARSHALL 350.1.13.10 ity [facility] 4.2.7.2.686 [facility] [id number] [facility] [address] [place] 2022-03-03 2022-03-03 Outpatient R [facility] [id number] Univers 09:45:00 09:45:00 [id number] ity [facility] 2022-03-03 2022-03-03 Outpatient R GABI[facility] [id number] Univers 09:45:00 09:45:00 SONI ity [facility] 2022-02-27 2022-02-27 Outpatient R JAMILA [facility] [id number] Univers 13:45:00 14:33:07 ity [facility] 2022-02-27 2022-02-27 Routine Jamila Zaldivar [facility] [id number] Univers 13:45:00 14:33:07 CLAUDIA 350.1.13.10 i ty of Visit [facility] 4.2.7.2.686 [facility] [id number] [facility] 134 Branch 2022-02-08 2022-02-08 ADRIÁN Murray [id number] Univers 00:00:00 00:00:00 (Out) Rhonda AVALOS 350.1.13.10 it y of [facility] 4.2.7.2.686 Marty as [id number] [facility] 019 Branch 2022-02-07 2022-02-07 [facility] [id number] Univers 17:40:00 18:00:00 [facility] 350.1.13.10 it y of [place] 4.2.7.2.686 Marty as ROSAS?BLEA [id number] In [address] MEDICAL OFFICE BUILDING 2022-02-07 2022-02-07 Outpatient R JARETT [facility] [id number] Univers 17:40:00 17:49:36 MIGUEL ity [facility] 2022-02-072022-02-07 Outpatient R [facility] [id number] Univers 17:40:00 17:40:00 [id number] ity of [facility] 2022-02-06 2022-02-06 Routine Jamila Zaldivar RUST FATOU 1.2.840.114 [id number] Univers 13:00:00 13:54:43 CLAUDIA 350.1.13.10 i ty of Visit [facility] 4.2.7.2.686 [facility] [id number] [facility] 134 Branch 2022-01-27 2022-01-27 Orders Doctor ADRIÁN [id number] Univers 00:00:00 00:00:00 Only Unassigned, BAILEY 350.1.13.10 ity of [place] [facility] 4.2.7.2.686 Marty [id number] [facility] 009 Branch 2020-11-07 2020-11-07 Routine Pollo RUST [id number] 10:03:48 10:53:52 Opal N CLEANER TOUCH UP WORKER 350.1.13.[address] [facility] 4.2.7.2.686 MATERNAL [id number] & CHILD 107 [facility] 2019-10-28 2019-10-28 Outpatient Raju_P [facility] [id number] [place] 02:06:00 02:06:00 [id number] [facility] Results Test Description Test Time Test Comments Results Result Comments Source POCT MOLECULAR STREP 2022-03-20 22:56:08 Test Item Value Reference Range Interpretation Comme nts POCT Molecular Strep (test code = 66219-3) Negative Negative Lab Interpretation (test code = 15118-9) [facility]O SPECIFIC [id number] 18:52:00 Test Item Value Reference Range Interpretation Comments POCT PH U (test code = 3254) N/A 5-8 POCT U LEUK EST (test code = N/A Negative - Negative 3263) POCT U NIT (test code = 3262) N/A Negative - Negative POCT U PROT (test code = 3259) Negative Negative - Negative POCT U GLU (test code = 3256) Negative Negative - Negative POCT U KETONE (test code = 3258) N/A Negative - Negative POCT U BLD (test code = 3257) N/A Negative - Negative [facility] W/O SPECIFIC [id number] 18:15:00 Test Item Value Reference Range Interpretation Comments POCT PH U (test code = 3254) n/a 5-8 POCT U LEUK EST (test code = n/a Negative - Negative 3263) POCT U NIT (test code = 3262) n/a Negative - Negative POCT U PROT (test code = 3259) negative Negative - Negative POCT U GLU (test code = 3256) normal Negative - Negative POCT U KETONE (test code = 3258) n/a Negative - Negative POCT U BLD (test code = 3257) n/a Negative - Negative [facility]
--- NOTE | 2022-03-29 21:25 | RAD REPORT ---
EXAM DESCRIPTION: CT - Head Brain Wo Cont - 03/29/2022 9:19 pm CLINICAL HISTORY: head injury COMPARISON: <Comparisons> TECHNIQUE: All CT scans are performed using dose optimization technique as appropriate and may inclu de automated exposure control or mA/KV adjustment according to patient size. FINDINGS: No intracranial hemorrhage, hydrocephalus or extra-axial fluid collection.No areas of brai n edema or evidence of midline shift. Left maxillary sinus thickening. The calvarium is intact. IMPRESSION: No acute intracranial abnormality.
[2022-03-29] MEDS ORDERED: ACETAMINOPHEN 500 MG TAB ONE (21:32)
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
--- NOTE | 2022-03-29 22:08 | RAD REPORT ---
EXAM DESCRIPTION: US - OB Limited - 03/29/2022 9:57 pm CLINICAL HISTORY: ABD PAIN COMPARISON: <Comparisons> FINDINGS: A single variable presenting gestation is identified. Heart rate normal. The intracranial contents and spine are grossly normal. A normal stomach bubble is noted. A nor mal fluid-filled urinary bladder seen without pelviectasis. The cord appears three-vessel. Four -chamber view of the heart is grossly unremarkable for gestational age. No gross abnormalities are id entifiable for gestational age. measurements are as follows: BPD:2.9 Centimeters 15 week 2 day HC:11.3 Centimeters 15 week 3 day AC:9.9 Centimeters 16 week 0 day FL:1.8 Centimeters 15 week 3 day The estimated gestational age (EGA) is 15 week 4 day with an JEIMY of09/16/2022. The placenta is posterior. No placenta previa. The amniotic fluid index is subjectively normal. The maternal adnexa show no worrisome findings. IMPRESSION: 1. Single, variable presenting gestation with an EGA of 15 week 4 day and an JEIMY of the 09/16/2022. 2. No gross abnormalities are identifiable. 3. Posterior placenta. No previa. 4. Amniotic fluid index issubjectively normal.
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
[2022-03-30 01:15] VITALS: TEMP 98.6
[2022-03-30 01:18] VITALS: BP 126/85; O2SAT 99
== END 2022-03-29 22:48 | disposition home or self-care (01) ==
LOC: ER 20:49
DX: O9A.212 Injury, poisoning and certain other consequences of external causes complicating pregnancy, second trimester (principal); S09.90XA Unspecified injury of head, initial encounter; O26.892 Other specified pregnancy related conditions, second trimester; Y04.8XXA Assault by other bodily force, initial encounter; Z3A.15 15 weeks gestation of pregnancy; Z79.82 Long term (current) use of aspirin; Z88.0 Allergy status to penicillin; Z88.5 Allergy status to narcotic agent; Z88.8 Allergy status to other drugs, medicaments and biological substances; Z91.048 Other nonmedicinal substance allergy status
CPT/HCPCS: 70450; 71045; 76815; 99284

== ENCOUNTER 2022-05-17 10:52 | Emergency (ER) | payer OTHER ==
--- OUTSIDE RECORDS SUMMARY | 2022-05-17 11:00 | XMS REPORT | Continuity of Care Document ---
:1995 Author Organization [facility] t Address [address] [place] [address] Care Team Providers Name Role Phone SONI CONTRERAS Primary Care Physician Unavailable ROD PRICE Attending Clinician Unavailable REBEKAH VAZ Attending Clinician Unavailable Lab, Ang - Db Attending Clinician Unavailable Rod Price MD Attending Clinician Nurse, [facility] Attending Clinician Unavailable Rebekah Vaz MD Attending Clinician , [facility] Room Attending Clinician Unavailable Severo Mcclellan MD Attending Clinician SEVERO MCCLELLAN Attending Clinician Unavailable SEVERO MCCLELLAN Attending Clinician Unavailable Mayo MCKINLEY, Christine Attending Clinician Unavailable Pob, [facility] Main Attending Clinician Unavailable Aydin Ferrera MD Attending Clinician JULIAN ELENA Attending Clinician Unavailable 2, [facility] Room Attending Clinician Unavailable Ulices GOTTLIBE, Julian Austin Attending Clinician Jamila Zaldivar MD Attending Clinician Nurse, [facility] Attending Clinician Unavailable Doctor Unassigned, [place] Attending Clinician Unavailable Ana Cristina Coates RN Attending Clinician Unavailable Conchita Hoskins PA-C Attending Clinician Wicho Boateng DO Attending Clinician Nurse, [facility] Attending Clinician Unavailable Cecelia Welch Attending Clinician CECELIA SANDERSON Attending Clinician Unavailable Jarett GOTTLIEB, Linda Attending Clinician Rosa Velasco MA Attending Clinician Unavailable Rhonda Josue RN Attending Clinician Unavailable Provider, [facility] Attending Clinician Unavailable JAMILA ZALDIVAR Attending Clinician Unavailable KASHIF RYAN Attending Clinician Unavailable Kayla ACNKashif Colón Attending Clinician SONI CONTRERAS Attending Clinician Unavailable JEANNA BULLOCK Attending Clinician Unavailable LINDA DENSON Attending Clinician Unavailable Amanda Patiño Attending Clinician Nelson Patel Attending Clinician VERNON GONZALEZ III Attending Clinician Unavailable Jeanna Bullock MD Attending Clinician NELSON HAMMONDS Attending Clinician Unavailable King ALLISON MD, James C Attending Clinician MAR SEGURA Attending Clinician Unavailable JOSH BECKHAM Attending Clinician Unavailable Only, Ang Db Test Attending Clinician Unavailable LIBBY GR Attending Clinician Unavailable Libby Richard Attending Clinician Soni Rivera Attending Clinician MUKUND SOTO Attending Clinician Unavailable Mukund Celaya Attending Clinician ERIC MOCK Attending Clinician Unavailable Eric Osorio Attending Clinician AMANDA CHINCHILLA Attending Clinician Unavailable Hill Barfield MD Attending Clinician Adrián Parikh MD Attending Clinician TAB KERNS Attending Clinician Unavailable [facility], [facility] Attending Clinician Unavailable Susanna Jeronimo MD Attending Clinician [phone] Lab, [facility] Attending Clinician Unavailable Visit, [facility] Nurse Attending Clinician Unavailable Ang FILTER TANK TENDER, Kathryn Miranda Attending Clinician Fellow, [facility] Mfm Attending Clinician Unavailable Faculty, [facility] Mf Attending Clinician Unavailable Makayla Lechuga Attending Clinician Unavailable Maico Saini MD Attending Clinician Jurgen RN, Chuy Attending Clinician Unavailable Bonnie [facility], Tab Guerrero Attending Clinician [phone] Al Lorenzo MD, Leona Attending Clinician [phone] Damien MCKINLEY, Ellie Ponce Attending Clinician Unavailable Kandi Reid MD Attending Clinician MAICO SAINI Attending Clinician Unavailable Brandon Whitten MD Attending Clinician Tammy Ortiz MD Attending Clinician ROBERT HARVEY Attending Clinician Unavailable Emmanuel Lepe MD Attending Clinician Maldonado Marie MD Attending Clinician [facility], Rhonda Howe Attending Clinician Risk, Vbu-Mgmsf-Wn/High Attending Clinician Unavailable [facility] Attending Clinician Raju_P Attending Clinician Unavailable JAMILA ZALDIVAR Admitting Clinician Unavailable SEVERO MCCLELLAN Admitting Clinician Unavailable Jamila Zaldivar MD Admitting Clinician Julian Elena MD Admitting Clinician Raju_P Admitting Clinician Unavailable Payers Payer Name Policy Type Policy Number Effective Date Expiration Date Kris acosta [employer] NELI [id number] 2021 00:00:00 Problems Condition Condition Condition Status Onset Resolution Last Treating Co mments Source Name Details Category Date Date Treatment Clinician Date Round Round Disease Active Univers ligament ligament 9-30 ity of pain pain 00:00: [place] 00 Medical Branch History of History of Disease Active U nivers 6-30 [place] [facility] History of History of Disease Active U nivers miscarriag miscarriag 6-27 it y of e, e, 00:00: [place] currently currently 00 [facility] Branch Tobacco Tobacco Disease Active Univers abuse abuse 6-27 ity of 00:00: [place] 00 Medical Branch History of History of Disease Active U nivers 9- ity of section section 00:00: [place] 00 Medical Branch COVID-19 COVID-19 Disease Active Unive rs virus IgG virus IgG 8-18 ity of antibody antibody 00:00: [place] detected detected 00 Medica l Branch High risk High risk Disease Active Uni vers , , 7-20 [place] of ante[place] Marijuana Marijuana Disease Active Uni vers use use 1-19 ity of 00:00: [place] 00 Medical Branch History of [...] albuterol nebulizer and xopinex.I CD10 Diagnosis Term Ob/Gyn Physician Utility Anxiety Anxiety Disease Active Overview: Univ [...] Univers IN INGREDI 0-06 ity of 00:00: Medical [place] Prometha Propensi Active Itching 2018- Itching Univ ers zine Hcl ty to 09-02 and hives ity o f adverse 00:00: [place] reaction 00 Medical s Branch PROMETHA DRUG Active ITCHING Univers ZINE HCL INGREDI 09-02 ity of 00:00: Medical [place] Adhesive Propensi Active Rash 2015- Univer s Tape-Fannie ty to 3-08 ity of icones adverse 00:00: [place] reaction 00 Medical s Branch ADHESIVE DRUG Active Rash 2016- Univers TAPE-FANNIE 3-08 ity of ICONES 00:00: [facility] [place] Hydrocod Drug Active Itching itching Univer s one Allergy 8-27 ity of 00:00: [place] 00 [facility] [place] HYDROCOD DRUG Active Low Rash 2011- Univers ONE INGREDI 8-27 ity of 00:00: [facility] [place] Social History Social Habit Start Date Stop Date Quantity Comments Source ASSERTION 2022-01-02 University of 00:00:00 [facility] Exposure to 2022-05-06 2022-05-16 Not sure [facility] SARS-CoV-2 (event) 00:00:00 08:07:00 [facility] Alcohol intake 2022-05-09 2022-05-09 0 /d University of 00:00:00 00:00:00 [facility] Cigarettes smoked 2022-02-27 2022-02-27 Univers ity of current (pack per 00:00:00 00:00:00 ) - Reported Branch Cigarette 2022-02-27 2022-02-27 University of pack-years 00:00:00 00:00:00 [facility] Tobacco use and 2022-02-27 2022-02-27 Smokeless Universit y of exposure 00:00:00 00:00:00 tobacco non-user [facility] dical [place] Tobacco Comment 2022-02-27 2022-02-27 2-3 cig /day Univers ity of 00:00:00 00:00:00 [facility] History of tobacco 2020-08-14 Cigarette Smoker University of use 00:00:00 [facility] Sex Assigned At [birth year] [facility] Smoking Status Start Date Stop Date Source Smokes tobacco daily 2022-02-27 00:00:00 Univers ity of [facility] Medications Ordered Filled Start Stop Current Ordering Indication Dosage Frequency Signature Comments Components Source Medication Medication Date Date Medication? Clinician (SIG) Name Name hydroxyprog 2021-08- No [id number] 275mg Univers esterone(PF 0-05-16 ity of ) (YI 14:30: 13:21 [place] AUTO-INJECT 00 :00 Medical OR) 275 Branch mg/1.1 mL injection 275 mg hydroxyprog 2021-08- No [id number] 275mg 275 mg, Univers esterone(PF 005-16 Subcutaneo i ty of ) (YI 14:30: 13:21 [place]-INJECT [place] :00 1 dose, On Me dical OR) 275 Fri Branch mg/1.1 mL 05/16/22 injection at 0930, 275 mg Routine hydroxyprog 2021-08- No [id number] 275mg Univers esterone(PF 007 07 ity of ) (YI 15:15: 14:19 [place] AUTO-INJECT 00 :00 Medical OR) 275 Branch mg/1.1 mL injection 275 mg hydroxyprog 2022-1 2022- No [id number] 275mg 275 mg, Univers esterone(PF 05-09 Subcutaneo i ty of ) (YI 15:15: 14:19 [place] AUTO-INJECT 00 :00 1 dose, On Me dical OR) 275 Fri Branch mg/1.1 mL 05/09/22 at injection 1015, 275 mg Routine hydroxyprog 2022-0 2022- No [id number] 275mg Univers esterone(PF 05-02 ity of ) (YI :45: 21:31 [place] AUTO-INJECT 00 :00 Medical OR) 275 Branch mg/1.1 mL injection 275 mg hydroxyprog 2022-0 2022- No [id number] 275mg 275 mg, Univers esterone(PF 05-02 Subcutaneo i ty of ) (YI :45: 21:31 [place] AUTO-INJECT 00 :00 1 dose, On Me dical OR) 275 Fri Branch mg/1.1 mL 05/02/22 at injection 1645, 275 mg Routine hydroxyprog 2022-0 2022- No [id number] 275mg Univers esterone(PF 05-02 ity of ) (YI :45: 21:31 [place] AUTO-INJECT 00 :00 Medical OR) 275 Branch mg/1.1 mL injection 275 mg hydroxyprog 2022-0 2022- No [id number] 275mg 275 mg, Univers esterone(PF 05-02 Subcutaneo i ty of ) (YI :45: 21:31 [place], [place] AUTO-INJECT 00 :00 1 dose, On Me dical OR) 275 Fri Branch mg/1.1 mL 05/02/22 at injection 1645, 275 mg Routine hydroxyprog 2022-0 2022- No [id number] 275mg Univers esterone(PF 05-02 ity of ) (YI :45: 21:31 [place] AUTO-INJECT 00 :00 Medical OR) 275 Branch mg/1.1 mL injection 275 mg hydroxyprog 0 2021- No [id number] 275mg 275 mg, Univers esterone(PF 05-02 Subcutaneo i ty of ) (YI 21:45: 21:31 [place], [place] AUTO-INJECT 00 :00 1 dose, On Me dical OR) 275 Fri Branch mg/1.1 mL 05/02/22 at injection 1645, 275 mg Routine hydroxyprog 2021-0 2021- No [id number] 275mg Univers esterone(PF 04-25 ity of ) (YI 15:45: 14:56 [place] AUTO-INJECT 00 :00 Medical OR) 275 Branch mg/1.1 mL injection 275 mg hydroxyprog 2021- No [id number] 275mg 275 mg, Univers esterone(PF 04-25 Subcutaneo i ty of ) (YI 15:45: 14:56 [place], [place] AUTO-INJECT 00 :00 1 dose, On Me dical OR) 275 Fri Branch mg/1.1 mL 04/25/22 at injection 1045, 275 mg Routine hydroxyprog 2021- No [id number] 275mg Univers esterone(PF 04-25 ity of ) (YI 15:45: 14:56 [place] AUTO-INJECT 00 :00 Medical OR) 275 Branch mg/1.1 mL injection 275 mg hydroxyprog 2021- No [id number] 275mg 275 mg, Univers esterone(PF 04-25 Subcutaneo i ty of ) (YI 15:45: 14:56 [place] AUTO-INJECT 00 :00 1 dose, On Me dical OR) 275 Fri Branch mg/1.1 mL 04/25/22 at injection 1045, 275 mg Routine YI, PF, 2021-0 Yes Univer s 275 mg/1.1 9-16 ity of mL 00:00: [place] injection 00 Medical Branch YI, PF, 2021-0 Yes Univer s 275 mg/1.1 9-16 ity of mL 00:00: [place] injection 00 Medical Branch YI, PF, 2021-0 Yes Univer s 275 mg/1.1 9-16 ity of mL 00:00: [place] injection 00 Medical Branch YI, PF, 2-0 Yes Univer s 275 mg/1.1 9-16 ity of mL 00:00: [place] injection 00 Medical Branch YI, PF, 2-0 Yes Univer s 275 mg/1.1 9-16 ity of mL 00:00: [place] injection 00 Medical Branch YI, PF, 2-0 Yes Univer s 275 mg/1.1 9-16 ity of mL 00:00: [place] injection 00 Medical Branch YI, PF, 2021-0 Yes Univer s 275 mg/1.1 9-16 ity of mL 00:00: [place] injection 00 Medical Branch YI, PF, 2021-0 Yes Univer s 275 mg/1.1 9-16 ity of mL 00:00: [place] injection 00 Medical Branch YI, PF, 2021-0 Yes Univer s 275 mg/1.1 9-16 ity of mL 00:00: [place] injection 00 Medical Branch YI, PF, 2021-0 Yes Univer s 275 mg/1.1 9-16 ity of mL 00:00: [place] injection 00 Medical Branch YI, PF, 2021-0 Yes Univer s 275 mg/1.1 9-16 ity of mL 00:00: [place] injection 00 Medical Branch YI, PF, 2-0 Yes Univer s 275 mg/1.1 9-16 ity of mL 00:00: [place] injection 00 Medical Branch YI, PF, 2-0 Yes Univer s 275 mg/1.1 9-16 ity of mL 00:00: [place] injection 00 Medical Branch YI, PF, 2021-0 Yes Univer s 275 mg/1.1 9-16 ity of mL 00:00: [place] injection 00 Medical Branch YI, PF, 2-0 Yes Univer s 275 mg/1.1 9-16 ity of mL 00:00: [place] injection 00 Medical Branch YI, PF, 2021-0 Yes Univer s 275 mg/1.1 9-16 ity of mL 00:00: [place] injection 00 Medical Branch cephALEXin 2-0 Yes [id number] 500mg Take 1 Univers (KEFLEX) 9-11 capsule by ity o f 500 mg 00:00: mouth in [place] capsule 00 the Medical morning Branch and 1 capsule in the evening. cephALEXin 2022-0 Yes [id number] 500mg Take 1 Univers (KEFLEX) 9-11 capsule by ity o f 500 mg 00:00: mouth in [place] capsule 00 the Medical morning Branch and 1 capsule in the evening. cephALEXin 2022-0 Yes [id number] 500mg Take 1 Univers (KEFLEX) 9-11 capsule by ity o f 500 mg 00:00: mouth in [place] capsule 00 the Medical morning Branch and 1 capsule in the evening. cephALEXin 2022-0 Yes [id number] 500mg Take 1 Univers (KEFLEX) 9-11 capsule by ity o f 500 mg 00:00: mouth in [place] capsule 00 the Medical morning Branch and 1 capsule in the evening. cephALEXin 2022-0 Yes [id number] 500mg Take 1 Univers (KEFLEX) 9-11 capsule by ity o f 500 mg 00:00: mouth in [place] capsule 00 the Medical morning Branch and 1 capsule in the evening. cephALEXin 2022-0 Yes [id number] 500mg Take 1 Univers (KEFLEX) 9-11 capsule by ity o f 500 mg 00:00: mouth in [place] capsule 00 the Medical morning Branch and 1 capsule in the evening. cephALEXin 2022-0 Yes [id number] 500mg Take 1 Univers (KEFLEX) 9-11 capsule by ity o f 500 mg 00:00: mouth in [place] capsule 00 the Medical morning Branch and 1 capsule in the evening. cephALEXin 2022-0 Yes [id number] 500mg Take 1 Univers (KEFLEX) 9-11 capsule by ity o f 500 mg 00:00: mouth in [place] capsule 00 the Medical morning Branch and 1 capsule in the evening. cephALEXin 2022-0 Yes [id number] 500mg Take 1 Univers (KEFLEX) 9-11 capsule by ity o f 500 mg 00:00: mouth in [place] capsule 00 the Medical morning Branch and 1 capsule in the evening. cephALEXin 2022-0 Yes [id number] 500mg Take 1 Univers (KEFLEX) 9-11 capsule by ity o f 500 mg 00:00: mouth in [place] capsule 00 the Medical morning Branch and 1 capsule in the evening. cephALEXin 2022-0 Yes [id number] 500mg Take 1 Univers (KEFLEX) 9-11 capsule by ity o f 500 mg 00:00: mouth in [place] capsule 00 the Medical morning Branch and 1 capsule in the evening. cephALEXin 2022-0 Yes [id number] 500mg Take 1 Univers (KEFLEX) 9-11 capsule by ity o f 500 mg 00:00: mouth in [place] capsule 00 the Medical morning Branch and 1 capsule in the evening. cephALEXin 2022-0 Yes [id number] 500mg Take 1 Univers (KEFLEX) 9-11 capsule by ity o f 500 mg 00:00: mouth in [place] capsule 00 the Medical morning Branch and 1 capsule in the evening. cephALEXin 2022-0 Yes [id number] 500mg Take 1 Univers (KEFLEX) 9-11 capsule by ity o f 500 mg 00:00: mouth in [place] capsule 00 the Medical morning Branch and 1 capsule in the evening. cephALEXin 2022-0 Yes [id number] 500mg Take 1 Univers (KEFLEX) 9-11 capsule by ity o f 500 mg 00:00: mouth in [place] capsule 00 the Medical morning Branch and 1 capsule in the evening. cephALEXin 2022-0 Yes [id number] 500mg Take 1 Univers (KEFLEX) 9-11 capsule by ity o f 500 mg 00:00: mouth in [place] capsule 00 the Medical morning Branch and 1 capsule in the evening. cephALEXin 2022-0 Yes [id number] 500mg Take 1 Univers (KEFLEX) 9-11 capsule by ity o f 500 mg 00:00: mouth in [place] capsule 00 the Medical morning Branch and 1 capsule in the evening. cephALEXin 2022-0 Yes [id number] 500mg Take 1 Univers (KEFLEX) 9-11 capsule by ity o f 500 mg 00:00: mouth in [place] capsule 00 the Medical morning Branch and 1 capsule in the evening. cephALEXin 2022-0 Yes [id number] 500mg Take 1 Univers (KEFLEX) 9-11 capsule by ity o f 500 mg 00:00: mouth in [place] capsule 00 the Medical morning Branch and 1 capsule in the evening. cephALEXin 2022-0 Yes [id number] 500mg Take 1 Univers (KEFLEX) 9-11 capsule by ity o f 500 mg 00:00: mouth in [place] capsule 00 the Medical morning Branch and 1 capsule in the evening. cephALEXin 2022-0 Yes [id number] 500mg Take 1 Univers (KEFLEX) 9-11 capsule by ity o f 500 mg 00:00: mouth in [place] capsule 00 the Medical morning Branch and 1 capsule in the evening. cephALEXin 2022-0 Yes [id number] 500mg Take 1 Univers (KEFLEX) 9-11 capsule by ity o f 500 mg 00:00: mouth in [place] capsule 00 the Branch and 1 capsule in the evening. cephALEXin 2022-0 Yes [id number] 500mg Take 1 Univers (KEFLEX) 9-11 capsule by ity o f 500 mg 00:00: mouth in [place] capsule 00 the Branch and 1 capsule in the evening. cephALEXin 2022-0 Yes [id number] 500mg Take 1 Univers (KEFLEX) 9-11 capsule by ity o f 500 mg 00:00: mouth in [place] capsule 00 the and 1 capsule in the evening. cephALEXin 2-0 Yes [id number] 500mg Take 1 Univers (KEFLEX) 9-11 capsule by ity o f 500 mg 00:00: mouth in [place] capsule 00 the and 1 capsule in the evening. cephALEXin 2-0 Yes [id number] 500mg Take 1 Univers (KEFLEX) 9-11 capsule by ity o f 500 mg 00:00: mouth in [place] capsule 00 the and 1 capsule in the evening. metroNIDAZO 0 No 500mg 500 mg, U nivers LE (FLAGYL) 04-11 Oral, ity of tablet 500 23:15: 23:48 ONCE, 1 [place] as mg 00 :00 dose, On Medical Thu04/11/22 Branch at 1815, Routine
Reason for Anti-Infec tive: Documented Infection< br>Documen vivek Infection Site: Other
O ther site: vaginal
Duration of Therapy: 7 days metroNIDAZO 2021-0 Yes [id number] 500mg Take 1 Univers LE (FLAGYL) 04-11 tablet by ity of 500 mg 00:00: mouth [place] tablet 00 every 12 Medical (twelve) Branch hours. metroNIDAZO 2022-0 Yes [id number] 500mg Take 1 Univers LE (FLAGYL) - tablet by ity of 500 mg 00:00: mouth [place] tablet 00 every 12 Medical (twelve) Branch hours. metroNIDAZO 2022-0 Yes [id number] 500mg Take 1 Univers LE (FLAGYL) 9-09 tablet by ity of 500 mg 00:00: mouth [place] tablet 00 every 12 Medical (twelve) Branch hours. metroNIDAZO 2022-0 Yes [id number] 500mg Take 1 Univers LE (FLAGYL) 9-09 tablet by ity of 500 mg 00:00: mouth [place] tablet 00 every 12 Medical (twelve) Branch hours. metroNIDAZO 2022-0 Yes [id number] 500mg Take 1 Univers LE (FLAGYL) 9-09 tablet by ity of 500 mg 00:00: mouth [place] tablet 00 every 12 Medical (twelve) Branch hours. metroNIDAZO 2-0 Yes [id number] 500mg Take 1 Univers LE (FLAGYL) 9-09 tablet by ity of 500 mg 00:00: mouth [place] tablet 00 every 12 Medical (twelve) Branch hours. metroNIDAZO 2-0 Yes [id number] 500mg Take 1 Univers LE (FLAGYL) 9-09 tablet by ity of 500 mg 00:00: mouth [place] tablet 00 every 12 Medical (twelve) Branch hours. metroNIDAZO 2021-0 Yes [id number] 500mg Take 1 Univers LE (FLAGYL) 9-09 tablet by ity of 500 mg 00:00: mouth [place] tablet 00 every 12 Medical (twelve) Branch hours. metroNIDAZO 2-0 Yes [id number] 500mg Take 1 Univers LE (FLAGYL) 9-09 tablet by ity of 500 mg 00:00: mouth [place] tablet 00 every 12 Medical (twelve) Branch hours. metroNIDAZO 2-0 Yes [id number] 500mg Take 1 Univers LE (FLAGYL) 9-09 tablet by ity of 500 mg 00:00: mouth [place] tablet 00 every 12 Medical (twelve) Branch hours. metroNIDAZO 2022-0 Yes [id number] 500mg Take 1 Univers LE (FLAGYL) 9-09 tablet by ity of 500 mg 00:00: mouth [place] tablet 00 every 12 Medical (twelve) Branch hours. metroNIDAZO 2022-0 Yes [id number] 500mg Take 1 Univers LE (FLAGYL) 9-09 tablet by ity of 500 mg 00:00: mouth [place] tablet 00 every 12 Medical (twelve) Branch hours. metroNIDAZO 2-0 Yes [id number] 500mg Take 1 Univers LE (FLAGYL) 9-09 tablet by ity of 500 mg 00:00: mouth [place] tablet 00 every 12 Medical (twelve) Branch hours. metroNIDAZO 2-0 Yes [id number] 500mg Take 1 Univers LE (FLAGYL) 9-09 tablet by ity of 500 mg 00:00: mouth [place] tablet 00 every 12 Medical (twelve) Branch hours. metroNIDAZO 2021-0 Yes [id number] 500mg Take 1 Univers LE (FLAGYL) 9-09 tablet by ity of 500 mg 00:00: mouth [place] tablet 00 every 12 Medical (twelve) Branch hours. metroNIDAZO 2021-0 Yes [id number] 500mg Take 1 Univers LE (FLAGYL) 9-09 tablet by ity of 500 mg 00:00: mouth [place] tablet 00 every 12 Medical (twelve) Branch hours. metroNIDAZO 2021-0 Yes [id number] 500mg Take 1 Univers LE (FLAGYL) 9-09 tablet by ity of 500 mg 00:00: mouth [place] tablet 00 every 12 Medical (twelve) Branch hours. metroNIDAZO 2021-0 Yes [id number] 500mg Take 1 Univers LE (FLAGYL) 9-09 tablet by ity of 500 mg 00:00: mouth [place] tablet 00 every 12 Medical (twelve) Branch hours. metroNIDAZO 2021-0 Yes [id number] 500mg Take 1 Univers LE (FLAGYL) 9-09 tablet by ity of 500 mg 00:00: mouth [place] tablet 00 every 12 Medical (twelve) Branch hours. metroNIDAZO 2021-0 Yes [id number] 500mg Take 1 Univers LE (FLAGYL) 9-09 tablet by ity of 500 mg 00:00: mouth [place] tablet 00 every 12 Medical (twelve) Branch hours. metroNIDAZO 2021-0 Yes [id number] 500mg Take 1 Univers LE (FLAGYL) 9-09 tablet by ity of 500 mg 00:00: mouth [place] tablet 00 every 12 Medical (twelve) Branch hours. metroNIDAZO 2022-0 Yes [id number] 500mg Take 1 Univers LE (FLAGYL) 9-09 tablet by ity of 500 mg 00:00: mouth [place] tablet 00 every 12 Medical (twelve) Branch hours. metroNIDAZO 2-0 Yes [id number] 500mg Take 1 Univers LE (FLAGYL) 9-09 tablet by ity of 500 mg 00:00: mouth [place] tablet 00 every 12 Medical (twelve) Branch hours. metroNIDAZO 2022-0 Yes [id number] 500mg Take 1 Univers LE (FLAGYL) 9-09 tablet by ity of 500 mg 00:00: mouth [place] tablet 00 every 12 Medical (twelve) Branch hours. metroNIDAZO 2022-0 Yes [id number] 500mg Take 1 Univers LE (FLAGYL) 9-09 tablet by ity of 500 mg 00:00: mouth [place] tablet 00 every 12 Medical (twelve) Branch hours. metroNIDAZO 2022-0 Yes [id number] 500mg Take 1 Univers LE (FLAGYL) 9-09 tablet by ity of 500 mg 00:00: mouth [place] tablet 00 every 12 Medical (twelve) Branch hours. metoclopram 2022-0 Yes [id number] 10mg Take 1 Univers richa HCl 10 8-31 tablet by ity of mg tablet 00:00: mouth [place] 00 every 6 Medical (six) Branch hours as needed for Nausea and Vomiting (N/V) or Gastroesop hageal reflux. famotidine 2022-0 Yes [id number] 20mg Take 1 U nivers 20 mg 8-31 tablet by ity of tablet 00:00: mouth in [place] 00 the Medical morning Branch and 1 tablet in the evening. metoclopram 2022-0 Yes [id number] 10mg Take 1 Univers richa HCl 10 8-31 tablet by ity of mg tablet 00:00: mouth [place] 00 every 6 Medical (six) Branch hours as needed for Nausea and Vomiting (N/V) or Gastroesop hageal reflux. famotidine 2022-0 Yes [id number] 20mg Take 1 U nivers 20 mg 8-31 tablet by ity of tablet 00:00: mouth in [place] 00 the Medical morning Branch and 1 tablet in the evening. metoclopram 2022-0 Yes [id number] 10mg Take 1 Univers richa HCl 10 8-31 tablet by ity of mg tablet 00:00: mouth [place] 00 every 6 Medical (six) Branch hours as needed for Nausea and Vomiting (N/V) or Gastroesop hageal reflux. famotidine 2022-0 Yes [id number] 20mg Take 1 U nivers 20 mg 8-31 tablet by ity of tablet 00:00: mouth in [place] 00 the Medical morning Branch and 1 tablet in the evening. metoclopram 2022-0 Yes [id number] 10mg Take 1 Univers richa HCl 10 8-31 tablet by ity of mg tablet 00:00: mouth [place] 00 every 6 Medical (six) Branch hours as needed for Nausea and Vomiting (N/V) or Gastroesop hageal reflux. famotidine 2022-0 Yes [id number] 20mg Take 1 U nivers 20 mg 8-31 tablet by ity of tablet 00:00: mouth in [place] 00 the Medical morning Branch and 1 tablet in the evening. metoclopram 2022-0 Yes [id number] 10mg Take 1 Univers richa HCl 10 8-31 tablet by ity of mg tablet 00:00: mouth [place] 00 every 6 Medical (six) Branch hours as needed for Nausea and Vomiting (N/V) or Gastroesop hageal reflux. famotidine 2022-0 Yes [id number] 20mg Take 1 U nivers 20 mg 8-31 tablet by ity of tablet 00:00: mouth in [place] 00 the Medical morning Branch and 1 tablet in the evening. metoclopram 2022-0 Yes [id number] 10mg Take 1 Univers richa HCl 10 8-31 tablet by ity of mg tablet 00:00: mouth [place] 00 every 6 Medical (six) Branch hours as needed for Nausea and Vomiting (N/V) or Gastroesop hageal reflux. famotidine 2022-0 Yes [id number] 20mg Take 1 U nivers 20 mg 8-31 tablet by ity of tablet 00:00: mouth in [place] 00 the Medical morning Branch and 1 tablet in the evening. metoclopram 2022-0 Yes [id number] 10mg Take 1 Univers richa HCl 10 8-31 tablet by ity of mg tablet 00:00: mouth [place] 00 every 6 Medical (six) Branch hours as needed for Nausea and Vomiting (N/V) or Gastroesop hageal reflux. famotidine 2022-0 Yes [id number] 20mg Take 1 U nivers 20 mg 8-31 tablet by [facility] of tablet 00:00: mouth in [place] 00 the Medical morning Branch and 1 tablet in the evening. metoclopram 2022-0 Yes [id number] 10mg Take 1 [facility] HCl 10 8-31 tablet by [facility] of mg tablet 00:00: mouth [place] 00 every 6 Medical (six) Branch hours as needed for Nausea and Vomiting (N/V) or Gastroesop hageal reflux. famotidine 2022-0 Yes [id number] 20mg Take 1 [facility] 20 mg 8-31 tablet by [facility] of tablet 00:00: mouth in [place] 00 the Medical morning Branch and 1 tablet in the evening. metoclopram 2022-0 Yes [id number] 10mg Take 1 [facility] HCl 10 8-31 tablet by [facility] of mg tablet 00:00: mouth [place] 00 every 6 Medical (six) Branch hours as needed for Nausea and Vomiting (N/V) or Gastroesop hageal reflux. famotidine 2022-0 Yes [id number] 20mg Take 1 [facility] 20 mg 8-31 tablet by [facility] of tablet 00:00: mouth in [place] 00 the Medical morning Branch and 1 tablet in the evening. metoclopram 2022-0 Yes [id number] 10mg Take 1 [facility] HCl 10 8-31 tablet by [facility] of mg tablet 00:00: mouth [place] 00 every 6 Medical (six) Branch hours as needed for Nausea and Vomiting (N/V) or Gastroesop hageal reflux. famotidine 2022-0 Yes [id number] 20mg Take 1 [facility] 20 mg 8-31 tablet by [facility] of tablet 00:00: mouth in [place] 00 the Medical morning Branch and 1 tablet in the evening. metoclopram 2022-0 Yes [id number] 10mg Take 1 [facility] HCl 10 8-31 tablet by [facility] of mg tablet 00:00: mouth [place] 00 every 6 Medical (six) Branch hours as needed for Nausea and Vomiting (N/V) or Gastroesop hageal reflux. famotidine 2022-0 Yes [id number] 20mg Take 1 [facility] 20 mg 8-31 tablet by [facility] of tablet 00:00: mouth in [place] 00 the Medical morning Branch and 1 tablet in the evening. metoclopram 2022-0 Yes [id number] 10mg Take 1 [facility] HCl 10 8-31 tablet by [facility] of mg tablet 00:00: mouth [place] 00 every 6 Medical (six) Branch hours as needed for Nausea and Vomiting (N/V) or Gastroesop hageal reflux. famotidine 2022-0 Yes [id number] 20mg Take 1 [facility] 20 mg 8-31 tablet by [facility] of tablet 00:00: mouth in [place] 00 the Medical morning Branch and 1 tablet in the evening. metoclopram 2022-0 Yes [id number] 10mg Take 1 [facility] HCl 10 8-31 tablet by [facility] of mg tablet 00:00: mouth [place] 00 every 6 Medical (six) Branch hours as needed for Nausea and Vomiting (N/V) or Gastroesop hageal reflux. famotidine 2022-0 Yes [id number] 20mg Take 1 [facility] 20 mg 8-31 tablet by [facility] of tablet 00:00: mouth in [place] 00 the Medical morning Branch and 1 tablet in the evening. metoclopram 2022-0 Yes [id number] 10mg Take 1 [facility] HCl 10 8-31 tablet by [facility] of mg tablet 00:00: mouth [place] 00 every 6 Medical (six) Branch hours as needed for Nausea and Vomiting (N/V) or Gastroesop hageal reflux. famotidine 2022-0 Yes [id number] 20mg Take 1 [facility] 20 mg 8-31 tablet by [facility] of tablet 00:00: mouth in [place] 00 the Medical morning Branch and 1 tablet in the evening. metoclopram 2022-0 Yes [id number] 10mg Take 1 [facility] HCl 10 8-31 tablet by [facility] of mg tablet 00:00: mouth [place] [address] every 6 Medical (six) Branch hours as needed for Nausea and Vomiting (N/V) or Gastroesop hageal reflux. famotidine 2022-0 Yes [id number] 20mg Take 1 [facility] 20 mg 8-31 tablet by [facility] of tablet 00:00: mouth in [place] 00 the Medical morning Branch and 1 tablet in the evening. metoclopram 2022-0 Yes [id number] 10mg Take 1 [facility] HCl 10 8-31 tablet by [facility] of mg tablet 00:00: mouth [place] [address] every 6 Medical (six) Branch hours as needed for Nausea and Vomiting (N/V) or Gastroesop hageal reflux. famotidine 2022-0 Yes [id number] 20mg Take 1 [facility] 20 mg 8-31 tablet by [facility] of tablet 00:00: mouth in [place] 00 the Medical morning Branch and 1 tablet in the evening. metoclopram 2022-0 Yes [id number] 10mg Take 1 [facility] HCl 10 8-31 tablet by [facility] of mg tablet 00:00: mouth [place] 00 every 6 Medical (six) Branch hours as needed for Nausea and Vomiting (N/V) or Gastroesop hageal reflux. famotidine 2022-0 Yes [id number] 20mg Take 1 [facility] 20 mg 8-31 tablet by [facility] of tablet 00:00: mouth in [place] 00 the Medical morning Branch and 1 tablet in the evening. metoclopram 2022-0 Yes [id number] 10mg Take 1 [facility] HCl 10 8-31 tablet by [facility] of mg tablet 00:00: mouth [place] 00 every 6 Medical (six) Branch hours as needed for Nausea and Vomiting (N/V) or Gastroesop hageal reflux. famotidine 2022-0 Yes [id number] 20mg Take 1 [facility] 20 mg 8-31 tablet by [facility] of tablet 00:00: mouth in [place] 00 the Medical morning Branch and 1 tablet in the evening. metoclopram 2022-0 Yes [id number] 10mg Take 1 [facility] HCl 10 8-31 tablet by [facility] of mg tablet 00:00: mouth [place] 00 every 6 Medical (six) Branch hours as needed for Nausea and Vomiting (N/V) or Gastroesop hageal reflux. famotidine 2022-0 Yes [id number] 20mg Take 1 [facility] 20 mg 8-31 tablet by [facility] of tablet 00:00: mouth in [place] 00 the Medical morning Branch and 1 tablet in the evening. metoclopram 2022-0 Yes [id number] 10mg Take 1 [facility] HCl 10 8-31 tablet by [facility] of mg tablet 00:00: mouth [place] 00 every 6 Medical (six) Branch hours as needed for Nausea and Vomiting (N/V) or Gastroesop hageal reflux. famotidine 2022-0 Yes [id number] 20mg Take 1 [facility] 20 mg 8-31 tablet by [facility] of tablet 00:00: mouth in [place] 00 the Medical morning Branch and 1 tablet in the evening. metoclopram 2022-0 Yes [id number] 10mg Take 1 [facility] HCl 10 8-31 tablet by [facility] of mg tablet 00:00: mouth [place] 00 every 6 Medical (six) Branch hours as needed for Nausea and Vomiting (N/V) or Gastroesop hageal reflux. famotidine 2022-0 Yes [id number] 20mg Take 1 [facility] 20 mg 8-31 tablet by [facility] of tablet 00:00: mouth in [place] 00 the Medical morning Branch and 1 tablet in the evening. metoclopram 2022-0 Yes [id number] 10mg Take 1 [facility] HCl 10 8-31 tablet by [facility] of mg tablet 00:00: mouth [place] 00 every 6 Medical (six) Branch hours as needed for Nausea and Vomiting (N/V) or Gastroesop hageal reflux. famotidine 2022-0 Yes [id number] 20mg Take 1 [facility] 20 mg 8-31 tablet by [facility] of tablet 00:00: mouth in [place] 00 the Medical morning Branch and 1 tablet in the evening. metoclopram 2022-0 Yes [id number] 10mg Take 1 [facility] HCl 10 8-31 tablet by [facility] of mg tablet 00:00: mouth [place] 00 every 6 Medical (six) Branch hours as needed for Nausea and Vomiting (N/V) or Gastroesop hageal reflux. famotidine 2022-0 Yes [id number] 20mg Take 1 [facility] 20 mg 8-31 tablet by [facility] of tablet 00:00: mouth in [place] 00 the Medical morning Branch and 1 tablet in the evening. metoclopram 2022-0 Yes [id number] 10mg Take 1 [facility] HCl 10 8-31 tablet by [facility] of mg tablet 00:00: mouth [place] 00 every 6 Medical (six) Branch hours as needed for Nausea and Vomiting (N/V) or Gastroesop hageal reflux. famotidine 2022-0 Yes [id number] 20mg Take 1 [facility] 20 mg 8-31 tablet by [facility] of tablet 00:00: mouth in [place] 00 the Medical morning Branch and 1 tablet in the evening. metoclopram 2022-0 Yes [id number] 10mg Take 1 [facility] HCl 10 8-31 tablet by [facility] of mg tablet 00:00: mouth [place] 00 every 6 Medical (six) Branch hours as needed for Nausea and Vomiting (N/V) or Gastroesop hageal reflux. famotidine 2022-0 Yes [id number] 20mg Take 1 [facility] 20 mg 8-31 tablet by [facility] of tablet 00:00: mouth in [place] 00 the Medical morning Branch and 1 tablet in the evening. metoclopram 2022-0 Yes [id number] 10mg Take 1 [facility] HCl 10 8-31 tablet by [facility] of mg tablet 00:00: mouth [place] 00 every 6 Medical (six) Branch hours as needed for Nausea and Vomiting (N/V) or Gastroesop hageal reflux. famotidine 2022-0 Yes [id number] 20mg Take 1 [facility] 20 mg 8-31 tablet by [facility] of tablet 00:00: mouth in [place] 00 the Medical morning Branch and 1 tablet in the evening. metoclopram 2022-0 Yes [id number] 10mg Take 1 [facility] HCl 10 8-31 tablet by [facility] of mg tablet 00:00: mouth [place] 00 every 6 Medical (six) Branch hours as needed for Nausea and Vomiting (N/V) or Gastroesop hageal reflux. famotidine 2022-0 Yes [id number] 20mg Take 1 [facility] 20 mg 8-31 tablet by [facility] of tablet 00:00: mouth in [place] 00 the Medical morning Branch and 1 tablet in the evening. metoclopram 2022-0 Yes [id number] 10mg Take 1 [facility] HCl 10 8-31 tablet by [facility] of mg tablet 00:00: mouth [place] 00 every 6 Medical (six) Branch hours as needed for Nausea and Vomiting (N/V) or Gastroesop hageal reflux. famotidine 2022-0 Yes [id number] 20mg Take 1 [facility] 20 mg 8-31 tablet by [facility] of tablet 00:00: mouth in [place] 00 the Medical morning Branch and 1 tablet in the evening. metoclopram 2022-0 Yes [id number] 10mg Take 1 [facility] HCl 10 8-31 tablet by [facility] of mg tablet 00:00: mouth [place] 00 every 6 Medical (six) Branch hours as needed for Nausea and Vomiting (N/V) or Gastroesop hageal reflux. famotidine 2022-0 Yes [id number] 20mg Take 1 [facility] 20 mg 8-31 tablet by [facility] of tablet 00:00: mouth in [place] 00 the Medical morning Branch and 1 tablet in the evening. metoclopram 2022-0 Yes [id number] 10mg Take 1 [facility] HCl 10 8-31 tablet by [facility] of mg tablet 00:00: mouth [place] 00 every 6 Medical (six) Branch hours as needed for Nausea and Vomiting (N/V) or Gastroesop hageal reflux. famotidine Yes [id number] 20mg Take 1 [facility] 20 mg 8-31 tablet by [facility] of tablet 00:00: mouth in [place] 00 the Medical morning Branch and 1 tablet in the evening. doxylamine Yes [id number] 25mg Take 1 [facility] 25 mg 7-28 tablet by [facility] of tablet 00:00: mouth at [place] [address] bedtime. Medical Branch doxylamine Yes [id number] 25mg Take 1 [facility] 25 mg 7-28 tablet by [facility] of tablet 00:00: mouth at [place] [address] bedtime. Medical Branch doxylamine Yes [id number] 25mg Take 1 [facility] 25 mg 7-28 tablet by [facility] of tablet 00:00: mouth at [place] [address] bedtime. Medical Branch doxylamine Yes [id number] 25mg Take 1 [facility] 25 mg 7-28 tablet by [facility] of tablet 00:00: mouth at [place] [address] bedtime. Medical Branch doxylamine Yes [id number] 25mg Take 1 [facility] 25 mg 7-28 tablet by [facility] of tablet 00:00: mouth at [place] [address] bedtime. Medical Branch doxylamine Yes [id number] 25mg Take 1 [facility] 25 mg 7-28 tablet by [facility] of tablet 00:00: mouth at [place] [address] bedtime. Medical Branch doxylamine Yes [id number] 25mg Take 1 [facility] 25 mg 7-28 tablet by [facility] of tablet 00:00: mouth at [place] [address] bedtime. Medical Branch doxylamine Yes [id number] 25mg Take 1 [facility] 25 mg 7-28 tablet by [facility] of tablet 00:00: mouth at [place] [address] bedtime. Medical Branch doxylamine Yes [id number] 25mg Take 1 [facility] 25 mg 7-28 tablet by [facility] of tablet 00:00: mouth at [place] [address] bedtime. Medical Branch doxylamine Yes [id number] 25mg Take 1 [facility] 25 mg 7-28 tablet by [facility] of tablet 00:00: mouth at [place] [address] bedtime. Medical Branch doxylamine Yes [id number] 25mg Take 1 [facility] 25 mg 7-28 tablet by [facility] of tablet 00:00: mouth at [place] [address] bedtime. Medical Branch doxylamine 0 Yes [id number] 25mg Take 1 [facility] 25 mg 7-28 tablet by [facility] of tablet 00:00: mouth at [place] [address] bedtime. Medical Branch doxylamine 0 Yes [id number] 25mg Take 1 [facility] 25 mg 7-28 tablet by [facility] of tablet 00:00: mouth at [place] [address] bedtime. Medical Branch doxylamine 0 Yes [id number] 25mg Take 1 [facility] 25 mg 7-28 tablet by [facility] of tablet 00:00: mouth at [place] [address] bedtime. Medical Branch doxylamine Yes [id number] 25mg Take 1 [facility] 25 mg 7-28 tablet by [facility] of tablet 00:00: mouth at [place] [address] bedtime. Medical Branch doxylamine Yes [id number] 25mg Take 1 [facility] 25 mg 7-28 tablet by [facility] of tablet 00:00: mouth at [place] [address] bedtime. Medical Branch doxylamine 0 Yes [id number] 25mg Take 1 [facility] 25 mg 7-28 tablet by [facility] of tablet 00:00: mouth at [place] [address] bedtime. Medical Branch doxylamine Yes [id number] 25mg Take 1 [facility] 25 mg 7-28 tablet by [facility] of tablet 00:00: mouth at [place] [address] bedtime. Medical Branch doxylamine 0 Yes [id number] 25mg Take 1 [facility] 25 mg 7-28 tablet by [facility] of tablet 00:00: mouth at [place] [address] bedtime. Medical Branch doxylamine 0 Yes [id number] 25mg Take 1 [facility] 25 mg 7-28 tablet by [facility] of tablet 00:00: mouth at [place] [address] bedtime. Medical Branch doxylamine 0 Yes [id number] 25mg Take 1 [facility] 25 mg 7-28 tablet by [facility] of tablet 00:00: mouth at [place] [address] bedtime. Medical Branch doxylamine 0 Yes [id number] 25mg Take 1 [facility] 25 mg 7-28 tablet by [facility] of tablet 00:00: mouth at [place] [address] bedtime. Medical Branch doxylamine 2021-0 Yes [id number] 25mg Take 1 [facility] 25 mg 7-28 tablet by [facility] of tablet 00:00: mouth at [place] [address] bedtime. Medical Branch doxylamine Yes [id number] 25mg Take 1 [facility] 25 mg 7-28 tablet by [facility] of tablet 00:00: mouth at [place] [address] bedtime. Medical Branch doxylamine Yes [id number] 25mg Take 1 [facility] 25 mg 7-28 tablet by [facility] of tablet 00:00: mouth at [place] [address] bedtime. Medical Branch doxylamine Yes [id number] 25mg Take 1 [facility] 25 mg 7-28 tablet by [facility] of tablet 00:00: mouth at [place] [address] bedtime. Medical Branch doxylamine Yes [id number] 25mg Take 1 [facility] 25 mg 7-28 tablet by [facility] of tablet 00:00: mouth at [place] [address] bedtime. Medical Branch doxylamine Yes [id number] 25mg Take 1 [facility] 25 mg 7-28 tablet by [facility] of tablet 00:00: mouth at [place] [address] bedtime. Medical Branch doxylamine Yes [id number] 25mg Take 1 [facility] 25 mg 7-28 tablet by [facility] of tablet 00:00: mouth at [place] [address] bedtime. Medical Branch doxylamine Yes [id number] 25mg Take 1 [facility] 25 mg 7-28 tablet by [facility] of tablet 00:00: mouth at [place] [address] bedtime. Medical Branch doxylamine- Yes [id number] Doxylamine [facility] pyridoxine, 02-07 10 ity of [...] mg (4 tablets) per day). albuterol Yes [id number] 2{puff} Inhale 2 [facility] 90 7-08 Puffs ity of mcg/actuati 00:00: every 6 [place] as on inhaler 00 (six) Medical hours as Branch needed for Shortness of Breath. doxylamine- Yes [id number] Doxylamine [facility] pyridoxine, 02-07 10 ity of [...] mg (4 tablets) per day). albuterol Yes [id number] 2{puff} Inhale 2 [facility] 90 7-08 Puffs [facility] of mcg/actuati 00:00: every 6 [place] on inhaler 00 (six) Medical hours as Branch needed for Shortness of Breath. doxylamine Yes [id number] Doxylamine [facility] pyridoxine, 02-07 10 ity of [...] mg (4 tablets) per day). albuterol Yes [id number] 2{puff} Inhale 2 [facility] 90 7-08 Puffs [facility] of mcg/actuati 00:00: every 6 [place] on inhaler 00 (six) Medical hours as Branch needed for Shortness of Breath. doxylamine- Yes [id number] Doxylamine [facility] pyridoxine, 02-07 10 ity of [...] mg (4 tablets) per day). albuterol Yes [id number] 2{puff} Inhale 2 [facility] 90 7-08 Puffs [facility] of mcg/actuati 00:00: every 6 [place] on inhaler 00 (six) Medical hours as Branch needed for Shortness of Breath. doxylamine- Yes [id number] Doxylamine [facility] pyridoxine, 02-07 10 ity of [...] mg (4 tablets) per day). albuterol Yes [id number] 2{puff} Inhale 2 [facility] 90 7-08 Puffs [facility] of mcg/actuati 00:00: every 6 [place] on inhaler 00 (six) Medical hours as Branch needed for Shortness of Breath. doxylamine- Yes [id number] Doxylamine [facility] pyridoxine, 02-07 10 ity of [...] mg (4 tablets) per day). albuterol Yes [id number] 2{puff} Inhale 2 [facility] 90 7-08 Puffs [facility]y of mcg/actuati 00:00: every 6 [place] on inhaler 00 (six) Medical hours as Branch needed for Shortness of Breath. doxylamine- Yes [id number] Doxylamine [facility] pyridoxine, 02-07 10 ity of [...] mg (4 tablets) per day). albuterol Yes [id number] 2{puff} Inhale 2 [facility] 90 7-08 Puffs [facility] of mcg/actuati 00:00: every 6 [place] on inhaler 00 (six) Medical hours as Branch needed for Shortness of Breath. doxylamine- Yes [id number] Doxylamine [facility] pyridoxine, 02-07 10 ity of [...] mg (4 tablets) per day). albuterol Yes [id number] 2{puff} Inhale 2 [facility] 90 7-08 Puffs [facility] of mcg/actuati 00:00: every 6 [place] on inhaler 00 (six) Medical hours as Branch needed for Shortness of Breath. doxylamine- Yes [id number] Doxylamine [facility] pyridoxine, 02-07 10 ity of [...] mg (4 tablets) per day). albuterol Yes [id number] 2{puff} Inhale 2 [facility] 90 7-08 Puffs [facility]y of mcg/actuati 00:00: every 6 [place] on inhaler 00 (six) Medical hours as Branch needed for Shortness of Breath. doxylamine Yes [id number] Doxylamine [facility] pyridoxine, 02-07 10 ity of [...] mg (4 tablets) per day). albuterol Yes [id number] 2{puff} Inhale 2 [facility] 90 7-08 Puffs ity of mcg/actuati 00:00: every 6 [place] inhaler 00 (six) Medical hours as Branch needed for Shortness of Breath. doxylamine- Yes [id number] Doxylamine [facility] pyridoxine, 02-07 10 ity of [...] mg (4 tablets) per day). albuterol Yes [id number] 2{puff} Inhale 2 [facility] 90 7-08 Puffs [facility]y of mcg/actuati 00:00: every 6 [place] on inhaler 00 (six) Medical hours as Branch needed for Shortness of Breath. doxylamine- Yes [id number] Doxylamine [facility] pyridoxine, 02-07 10 ity of [...] mg (4 tablets) per day). albuterol Yes [id number] 2{puff} Inhale 2 [facility] 90 7-08 Puffs ity of mcg/actuati 00:00: every 6 [place] on inhaler 00 (six) Medical hours as Branch needed for Shortness of Breath. doxylamine- Yes [id number] Doxylamine [facility] pyridoxine, 02-07 10 ity of [...] mg (4 tablets) per day). albuterol Yes [id number] 2{puff} Inhale 2 [facility] 90 7-08 Puffs [facility]y of mcg/actuati 00:00: every 6 [place] inhaler 00 (six) Medical hours as Branch needed for Shortness of Breath. doxylamine- Yes [id number] Doxylamine [facility] pyridoxine, 02-07 10 ity of [...] mg (4 tablets) per day). albuterol Yes [id number] 2{puff} Inhale 2 [facility] 90 7-08 Puffs ity of mcg/actuati 00:00: every 6 [place] inhal[place] 00 (six) Medical hours as Branch needed for Shortness of Breath. doxylamine- Yes [id number] Doxylamine [facility] pyridoxine, 02-07 10 ity of [...] mg (4 tablets) per day). albuterol Yes [id number] 2{puff} Inhale 2 [facility] 90 7-08 Puffs ity of mcg/actuati 00:00: every 6 [place] 00 (six) Medical hours as Branch needed for Shortness of Breath. doxylamine- Yes [id number] Doxylamine [facility] pyridoxine, 02-07 10 ity of [...] mg (4 tablets) per day). albuterol Yes [id number] 2{puff} Inhale 2 [facility] 90 7-08 Puffs [facility]y of mcg/actuati 00:00: every 6 [place] on inhaler 00 (six) Medical hours as Branch needed for Shortness of Breath. doxylamine- Yes [id number] Doxylamine [facility] pyridoxine, 02-07 10 ity of [...] mg (4 tablets) per day). albuterol Yes [id number] 2{puff} Inhale 2 [facility] 90 7-08 Puffs ity of mcg/actuati 00:00: every 6 [place] on inhaler 00 (six) Medical hours as Branch needed for Shortness of Breath. doxylamine- Yes [id number] Doxylamine [facility] pyridoxine, 02-07 10 ity of [...] mg (4 tablets) per day). albuterol Yes [id number] 2{puff} Inhale 2 [facility] 90 7-08 Puffs ity of mcg/actuati 00:00: every 6 [place] inhaler 00 (six) Medical hours as Branch needed for Shortness of Breath. doxylamine- Yes [id number] Doxylamine [facility] pyridoxine, 02-07 10 ity of [...] mg (4 tablets) per day). albuterol Yes [id number] 2{puff} Inhale 2 [facility] 90 7-08 Puffs ity of mcg/actuati 00:00: every 6 [place] on inhaler 00 (six) Medical hours as Branch needed for Shortness of Breath. doxylamine- Yes [id number] Doxylamine [facility] pyridoxine, 02-07 10 ity of [...] mg (4 tablets) per day). albuterol Yes [id number] 2{puff} Inhale 2 [facility] 90 7-08 Puffs ity of mcg/actuati 00:00: every 6 [place] on inhaler 00 (six) Medical hours as Branch needed for Shortness of Breath. doxylamine- Yes [id number] Doxylamine [facility] pyridoxine, 02-07 10 ity of [...] mg (4 tablets) per day). albuterol Yes [id number] 2{puff} Inhale 2 [facility] 90 7-08 Puffs ity of mcg/actuati 00:00: every 6 [place] on inhaler 00 (six) Medical hours as Branch needed for Shortness of Breath. doxylamine- Yes [id number] Doxylamine [facility] pyridoxine, 02-07 10 ity of [...] mg (4 tablets) per day). albuterol Yes [id number] 2{puff} Inhale 2 [facility] 90 7-08 Puffs ity of mcg/actuati 00:00: every 6 [place] on inhaler 00 (six) Medical hours as Branch needed for Shortness of Breath. doxylamine- Yes [id number] Doxylamine [facility] pyridoxine, 02-07 10 ity of [...] mg (4 tablets) per day). albuterol Yes [id number] 2{puff} Inhale 2 [facility] 90 7-08 Puffs ity of mcg/actuati 00:00: every 6 [place] on inhaler 00 (six) Medical hours as Branch needed for Shortness of Breath. doxylamine- Yes [id number] Doxylamine [facility] pyridoxine, 02-07 10 ity of [...] mg (4 tablets) per day). albuterol Yes [id number] 2{puff} Inhale 2 [facility] 90 7-08 Puffs ity of mcg/actuati 00:00: every 6 [place] on inhaler 00 (six) Medical hours as Branch needed for Shortness of Breath. doxylamine- Yes [id number] Doxylamine [facility] pyridoxine, 02-07 10 ity of [...] mg (4 tablets) per day). albuterol Yes [id number] 2{puff} Inhale 2 [facility] 90 7-08 Puffs ity of mcg/actuati 00:00: every 6 [place] on inhaler 00 (six) Medical hours as Branch needed for Shortness of Breath. doxylamine- Yes [id number] Doxylamine [facility] pyridoxine, 02-07 10 ity of [...] mg (4 tablets) per day). albuterol Yes [id number] 2{puff} Inhale 2 [facility] 90 7-08 Puffs ity of mcg/actuati 00:00: every 6 [place] on inhaler 00 (six) Medical hours as Branch needed for Shortness of Breath. doxylamine- Yes [id number] Doxylamine [facility] pyridoxine, 02-07 10 ity of [...] mg (4 tablets) per day). albuterol Yes [id number] 2{puff} Inhale 2 [facility] 90 7-08 Puffs ity of mcg/actuati 00:00: every 6 [place] on inhaler 00 (six) Medical hours as Branch needed for Shortness of Breath. doxylamine- Yes [id number] Doxylamine [facility] pyridoxine, 02-07 10 ity of [...] mg (4 tablets) per day). albuterol Yes [id number] 2{puff} Inhale 2 [facility] 90 7-08 Puffs ity of mcg/actuati 00:00: every 6 [place] on inhaler 00 (six) Medical hours as Branch needed for Shortness of Breath. doxylamine- Yes [id number] Doxylamine [facility] pyridoxine, 02-07 10 ity of [...] mg (4 tablets) per day). albuterol Yes [id number] 2{puff} Inhale 2 [facility] 90 7-08 Puffs ity of mcg/actuati 00:00: every 6 [place] on inhaler 00 (six) Medical hours as Branch needed for Shortness of Breath. doxylamine- Yes [id number] Doxylamine [facility] pyridoxine, 708 10 ity of vit B6, 00:00: mg/pyridox [...] mg (4 tablets) per day). albuterol Yes [id number] 2{puff} Inhale 2 [facility] 90 7-08 Puffs ity of mcg/actuati 00:00: every 6 [place] as on inhaler 00 (six) Medical hours as Branch needed for Shortness of Breath. aspirin 81 Yes [id number] 81mg Take 1 [facility] mg EC 7-07 tablet by ity of tablet 00:00: mouth [place] 00 daily. Medical Branch aspirin 81 Yes [id number] 81mg Take 1 [facility] mg EC 7-07 tablet by ity of tablet 00:00: mouth [place] 00 daily. Medical Branch aspirin 81 0 Yes [id number] 81mg Take 1 [facility] mg EC 7-07 tablet by ity of tablet 00:00: mouth [place] 00 daily. Medical Branch aspirin 81 0 Yes [id number] 81mg Take 1 [facility] mg EC 7-07 tablet by ity of tablet 00:00: mouth [place] 00 daily. Medical Branch aspirin 81 0 Yes [id number] 81mg Take 1 [facility] mg EC 7-07 tablet by ity of tablet 00:00: mouth [place] 00 daily. Medical Branch aspirin 81 0 Yes [id number] 81mg Take 1 [facility] mg EC 7-07 tablet by ity of tablet 00:00: mouth [place] 00 daily. Medical Branch aspirin 81 0 Yes [id number] 81mg Take 1 [facility] mg EC 7-07 tablet by ity of tablet 00:00: mouth [place] 00 daily. Medical Branch aspirin 81 2021-0 Yes [id number] 81mg Take 1 [facility] mg EC 7-07 tablet by ity of tablet 00:00: mouth [place] 00 daily. Medical Branch aspirin 81 2021-0 Yes [id number] 81mg Take 1 [facility] mg EC 7-07 tablet by ity of tablet 00:00: mouth [place] 00 daily. Medical Branch aspirin 81 2021-0 Yes [id number] 81mg Take 1 [facility] mg EC 7-07 tablet by ity of tablet 00:00: mouth [place] 00 daily. Medical Branch aspirin 81 2021-0 Yes [id number] 81mg Take 1 [facility] mg EC 7-07 tablet by ity of tablet 00:00: mouth [place] 00 daily. Medical Branch aspirin 81 2021-0 Yes [id number] 81mg Take 1 [facility] mg EC 7-07 tablet by ity of tablet 00:00: mouth [place] 00 daily. Medical Branch aspirin 81 2021-0 Yes [id number] 81mg Take 1 [facility] mg EC 7-07 tablet by ity of tablet 00:00: mouth [place] 00 daily. Medical Branch aspirin 81 2021-0 Yes [id number] 81mg Take 1 [facility] mg EC 7-07 tablet by ity of tablet 00:00: mouth [place] 00 daily. Medical Branch aspirin 81 2021-0 Yes [id number] 81mg Take 1 [facility] mg EC 7-07 tablet by ity of tablet 00:00: mouth [place] 00 daily. Medical Branch aspirin 81 2021-0 Yes [id number] 81mg Take 1 [facility] mg EC 7-07 tablet by ity of tablet 00:00: mouth [place] 00 daily. Medical Branch aspirin 81 2021-0 Yes [id number] 81mg Take 1 [facility] mg EC 7-07 tablet by ity of tablet 00:00: mouth [place] 00 daily. [facility] aspirin 81 2021-0 Yes [id number] 81mg Take 1 [facility] mg EC 7-07 tablet by ity of tablet 00:00: mouth [place] 00 daily. [facility] aspirin 81 2021-0 Yes [id number] 81mg Take 1 [facility] mg EC 7-07 tablet by ity of tablet 00:00: mouth [place] 00 daily. [facility] aspirin 81 2021-0 Yes [id number] 81mg Take 1 [facility] mg EC 7-07 tablet by ity of tablet 00:00: mouth [place] 00 daily. [facility] aspirin 81 0 Yes [id number] 81mg Take 1 [facility] mg EC 7-07 tablet by ity of tablet 00:00: mouth [place] 00 daily. [facility] aspirin 81 2021-0 Yes [id number] 81mg Take 1 [facility] mg EC 7-07 tablet by ity of tablet 00:00: mouth [place] 00 daily. [facility] aspirin 81 2021-0 Yes [id number] 81mg Take 1 [facility] mg EC 7-07 tablet by ity of tablet 00:00: mouth [place] 00 daily. [facility] aspirin 81 0 Yes [id number] 81mg Take 1 [facility] mg EC 7-07 tablet by ity of tablet 00:00: mouth [place] 00 daily. [facility] aspirin 81 2021-0 Yes [id number] 81mg Take 1 [facility] mg EC 7-07 tablet by ity of tablet 00:00: mouth [place] 00 daily. [facility] aspirin 81 2021-0 Yes [id number] 81mg Take 1 [facility] mg EC 7-07 tablet by ity of tablet 00:00: mouth [place] 00 daily. [facility] aspirin 81 0 Yes [id number] 81mg Take 1 [facility] mg EC 7-07 tablet by ity of tablet 00:00: mouth [place] 00 daily. [facility] aspirin 81 2021-0 Yes [id number] 81mg Take 1 [facility] mg EC 7-07 tablet by ity of tablet 00:00: mouth [place] 00 daily. [facility] aspirin 81 0 Yes [id number] 81mg Take 1 [facility] mg EC 7-07 tablet by ity of tablet 00:00: mouth [place] 00 daily. [facility] aspirin 81 2021-0 Yes [id number] 81mg Take 1 [facility] mg EC 7-07 tablet by ity of tablet 00:00: mouth [place] 00 daily. [facility] aspirin 81 2021-0 Yes [id number] 81mg Take 1 [facility] mg EC 7-07 tablet by ity of tablet 00:00: mouth [place] 00 daily. [facility] Prenat Vit 2021-0 Yes [id number] 1{packe Take 1 Univers Comb.10-Iro 6-27 t} Packet by ity of n-FA-DHA 00:00: mouth [place] (VITAFOL-OB 00 daily. Medica l +DHA) Branch 65-1-250 mg combo pack Prenat Vit 2021-0 Yes [id number] 1{packe Take 1 [facility] Comb.10-Iro 6-27 t} Packet by ity of n-FA-DHA 00:00: mouth [place] (VITAFOL-OB 00 daily. Medica l +DHA) Branch 65-1-250 mg combo pack Prenat Vit 2022-0 Yes [id number] 1{packe Take 1 [facility] Comb.10-Iro 6-27 t} Packet by ity of n-FA-DHA 00:00: mouth [place] (VITAFOL-OB 00 daily. Medica l +DHA) Branch 65-1-250 mg combo pack Prenat Vit 2022-0 Yes [id number] 1{packe Take 1 [facility] Comb.10-Iro 6-27 t} Packet by ity of n-FA-DHA 00:00: mouth [place] (VITAFOL-OB 00 daily. Medica l +DHA) Branch 65-1-250 mg combo pack Prenat Vit 2022-0 Yes [id number] 1{packe Take 1 [facility] Comb.10-Iro 6-27 t} Packet by ity of n-FA-DHA 00:00: mouth [place] (VITAFOL-OB 00 daily. Medica l +DHA) Branch 65-1-250 mg combo pack Prenat Vit 2022-0 Yes [id number] 1{packe Take 1 [facility] Comb.10-Iro 6-27 t} Packet by ity of n-FA-DHA 00:00: mouth [place] (VITAFOL-OB 00 daily. Medica l +DHA) Branch 65-1-250 mg combo pack Prenat Vit 2022-0 Yes [id number] 1{packe Take 1 [facility] Comb.10-Iro 6-27 t} Packet by ity of n-FA-DHA 00:00: mouth [place] (VITAFOL-OB 00 daily. Medica l +DHA) Branch 65-1-250 mg combo pack Prenat Vit 2022-0 Yes [id number] 1{packe Take 1 [facility] Comb.10-Iro 6-27 t} Packet by ity of n-FA-DHA 00:00: mouth [place] (VITAFOL-OB 00 daily. Medica l +DHA) Branch 65-1-250 mg combo pack Prenat Vit 2022-0 Yes [id number] 1{packe Take 1 [facility] Comb.10-Iro 6-27 t} Packet by ity of n-FA-DHA 00:00: mouth [place] (VITAFOL-OB 00 daily. Medica l +DHA) Branch 65-1-250 mg combo pack Prenat Vit 2022-0 Yes [id number] 1{packe Take 1 [facility] Comb.10-Iro 6-27 t} Packet by ity of n-FA-DHA 00:00: mouth [place] (VITAFOL-OB 00 daily. Medica l +DHA) Branch 65-1-250 mg combo pack Prenat Vit 2022-0 Yes [id number] 1{packe Take 1 [facility] Comb.10-Iro 6-27 t} Packet by ity of n-FA-DHA 00:00: mouth [place] (VITAFOL-OB 00 daily. Medica l +DHA) Branch 65-1-250 mg combo pack Prenat Vit 2022-0 Yes [id number] 1{packe Take 1 [facility] Comb.10-Iro 6-27 t} Packet by ity of n-FA-DHA 00:00: mouth [place] (VITAFOL-OB 00 daily. Medica l +DHA) Branch 65-1-250 mg combo pack Prenat Vit 2022-0 Yes [id number] 1{packe Take 1 [facility] Comb.10-Iro 6-27 t} Packet by ity of n-FA-DHA 00:00: mouth [place] (VITAFOL-OB 00 daily. Medica l +DHA) Branch 65-1-250 mg combo pack Prenat Vit 2022-0 Yes [id number] 1{packe Take 1 [facility] Comb.10-Iro 6-27 t} Packet by ity of n-FA-DHA 00:00: mouth [place] (VITAFOL-OB 00 daily. Medica l +DHA) Branch 65-1-250 mg combo pack Prenat Vit 2022-0 Yes [id number] 1{packe Take 1 [facility] Comb.10-Iro 6-27 t} Packet by ity of n-FA-DHA 00:00: mouth [place] (VITAFOL-OB 00 daily. Medica l +DHA) Branch 65-1-250 mg combo pack Prenat Vit 2022-0 Yes [id number] 1{packe Take 1 [facility] Comb.10-Iro 6-27 t} Packet by ity of n-FA-DHA 00:00: mouth [place] (VITAFOL-OB 00 daily. Medica l +DHA) Branch 65-1-250 mg combo pack Prenat Vit 2022-0 Yes [id number] 1{packe Take 1 [facility] Comb.10-Iro 6-27 t} Packet by ity of n-FA-DHA 00:00: mouth [place] (VITAFOL-OB 00 daily. Medica l +DHA) Branch 65-1-250 mg combo pack Prenat Vit 2022-0 Yes [id number] 1{packe Take 1 [facility] Comb.10-Iro 6-27 t} Packet by ity of n-FA-DHA 00:00: mouth [place] (VITAFOL-OB 00 daily. Medica l +DHA) Branch 65-1-250 mg combo pack Prenat Vit 2022-0 Yes [id number] 1{packe Take 1 [facility] Comb.10-Iro 6-27 t} Packet by ity of n-FA-DHA 00:00: mouth [place] (VITAFOL-OB 00 daily. Medica l +DHA) Branch 65-1-250 mg combo pack Prenat Vit 2022-0 Yes [id number] 1{packe Take 1 [facility] Comb.10-Iro 6-27 t} Packet by ity of n-FA-DHA 00:00: mouth [place] (VITAFOL-OB 00 daily. Medica l +DHA) Branch 65-1-250 mg combo pack Prenat Vit 2022-0 Yes [id number] 1{packe Take 1 [facility] Comb.10-Iro 6-27 t} Packet by ity of n-FA-DHA 00:00: mouth [place] (VITAFOL-OB 00 daily. Medica l +DHA) Branch 65-1-250 mg combo pack Prenat Vit 2022-0 Yes [id number] 1{packe Take 1 [facility] Comb.10-Iro 6-27 t} Packet by ity of n-FA-DHA 00:00: mouth [place] (VITAFOL-OB 00 daily. Medica l +DHA) Branch 65-1-250 mg combo pack Prenat Vit 2022-0 Yes [id number] 1{packe Take 1 [facility] Comb.10-Iro 6-27 t} Packet by ity of n-FA-DHA 00:00: mouth [place] (VITAFOL-OB 00 daily. Medica l +DHA) Branch 65-1-250 mg combo pack Prenat Vit 2022-0 Yes [id number] 1{packe Take 1 [facility] Comb.10-Iro 6-27 t} Packet by ity of n-FA-DHA 00:00: mouth [place] (VITAFOL-OB 00 daily. Medica l +DHA) Branch 65-1-250 mg combo pack Prenat Vit 2022-0 Yes [id number] 1{packe Take 1 [facility] Comb.10-Iro 6-27 t} Packet by ity of n-FA-DHA 00:00: mouth [place] (VITAFOL-OB 00 daily. Medica l +DHA) Branch 65-1-250 mg combo pack Prenat Vit 2022-0 Yes [id number] 1{packe Take 1 [facility] Comb.10-Iro 6-27 t} Packet by ity of n-FA-DHA 00:00: mouth [place] (VITAFOL-OB 00 daily. Medica l +DHA) Branch 65-1-250 mg combo pack Prenat Vit 2022-0 Yes [id number] 1{packe Take 1 [facility] Comb.10-Iro 6-27 t} Packet by ity of n-FA-DHA 00:00: mouth [place] (VITAFOL-OB 00 daily. Medica l +DHA) Branch 65-1-250 mg combo pack Prenat Vit 2022-0 Yes [id number] 1{packe Take 1 [facility] Comb.10-Iro 6-27 t} Packet by ity of n-FA-DHA 00:00: mouth [place] (VITAFOL-OB 00 daily. Medica l +DHA) Branch 65-1-250 mg combo pack Prenat Vit 2022-0 Yes [id number] 1{packe Take 1 [facility] Comb.10-Iro 6-27 t} Packet by ity of n-FA-DHA 00:00: mouth [place] (VITAFOL-OB 00 daily. Medica l +DHA) Branch 65-1-250 mg combo pack Prenat Vit 2022-0 Yes [id number] 1{packe Take 1 [facility] Comb.10-Iro 6-27 t} Packet by ity of n-FA-DHA 00:00: mouth [place] (VITAFOL-OB 00 daily. Medica l +DHA) Branch 65-1-250 mg combo pack Prenat Vit 2021-0 Yes [id number] 1{packe Take 1 [facility] Comb.10-Iro 6-27 t} Packet by ity of n-FA-DHA 00:00: mouth [place] (VITAFOL-OB 00 daily. Medica l +DHA) Branch 65-1-250 mg combo pack Immunizations Ordered Filled Immunization Date Status Comments [facility] e Immunization Name Name Influenza Virus 2022-05-02 Completed [facility], 00:00:00 [place] [facility] Preserv and ABX Branch Free 6 MO-64 YRS Influenza Virus 2022-05-02 Completed [facility], 00:00:00 [place] [facility] Preserv and ABX Branch Free 6 MO-64 YRS Influenza Virus 2022-05-02 Completed [facility], 00:00:00 [place] [facility] Preserv and ABX Branch Free 6 MO-64 YRS Influenza Virus 2022-05-02 Completed [facility], 00:00:00 [place] [facility] Preserv and ABX Branch Free 6 MO-64 YRS Influenza Virus 2022-05-02 Completed [facility], 00:00:00 [place] [facility] Preserv and ABX Branch Free 6 MO-64 YRS Influenza Virus 2022-05-02 Completed [facility], 00:00:00 [place] [facility] Preserv and ABX Branch Free 6 MO-64 YRS Influenza Virus 2022-05-02 Completed [facility], 00:00:00 [place] [facility] Preserv and ABX Branch Free 6 MO-64 YRS Influenza Virus 2022-05-02 Completed [facility], 00:00:00 [place] [facility] Preserv and ABX Branch Free 6 MO-64 YRS Influenza Virus 2022-05-02 Completed [facility] y [facility], 00:00:00 [place] [facility] Preserv and ABX Branch Free 6 MO-64 YRS Influenza Virus 2022-05-02 Completed [facility] y [facility], 00:00:00 [place] [facility] Preserv and ABX Branch Free 6 MO-64 YRS Influenza Virus 2022-05-02 Completed [facility] y [facility], 00:00:00 [place] [facility] Preserv and ABX Branch Free 6 MO-64 YRS Influenza Virus 2022-05-02 Completed [facility] y [facility], 00:00:00 [place] [facility] Preserv and ABX Branch Free 6 MO-64 YRS Influenza Virus 2022-05-02 Completed [facility] y [facility], 00:00:00 [place] [facility] Preserv and ABX Branch Free 6 MO-64 YRS Influenza Virus 2022-05-02 Completed [facility] y [facility], 00:00:00 [place] [facility] Preserv and ABX Branch Free 6 MO-64 YRS Influenza Virus 2022-05-02 Completed [facility] y [facility], 00:00:00 [place] [facility] Preserv and ABX Branch Free 6 MO-64 YRS Influenza Virus 2022-05-02 Completed [facility] y [facility], 00:00:00 [place] [facility] Preserv and ABX Branch Free 6 MO-64 YRS TDAP 2021-01-29 Completed [facility] of 00:00:00 [facility] TDAP 2021-01-29 Completed [facility] of 00:00:00 [facility] TDAP 2021-01-29 Completed University of 00:00:00 [facility] TDAP 2021-01-29 Completed [facility] of 00:00:00 [facility] TDAP 2021-01-29 Completed [facility] of 00:00:00 [facility] TDAP 2021-01-29 Completed [facility] of 00:00:00 [facility] TDAP 2021-01-29 Completed [facility] of 00:00:00 [facility] TDAP 2021-01-29 Completed [facility] of 00:00:00 [facility] TDAP 2021-01-29 Completed [facility] of 00:00:00 [facility] TDAP 2021-01-29 Completed [facility] of 00:00:00 [facility] TDAP 2021-01-29 Completed [facility] of 00:00:00 [facility] TDAP 2021-01-29 Completed [facility] of 00:00:00 [facility] TDAP 2021-01-29 Completed University of 00:00:00 [facility] TDAP 2021-01-29 Completed [facility] of 00:00:00 [facility] TDAP 2021-01-29 Completed [facility] of 00:00:00 [facility] TDAP 2021-01-29 Completed [facility] of 00:00:00 [place] [facility] TDAP 2021-01-29 Completed [facility] 00:00:00 [place] [facility] TDAP 2021-01-29 Completed [facility] of 00:00:00 [facility] TDAP 2021-01-29 Completed [facility] of 00:00:00 [facility] TDAP 2021-01-29 Completed [facility] of 00:00:00 [facility] TDAP 2021-01-29 Completed [facility] of 00:00:00 [facility] TDAP 2021-01-29 Completed [facility] of 00:00:00 [facility] TDAP 2021-01-29 Completed [facility] of 00:00:00 [facility] TDAP 2021-01-29 Completed [facility] of 00:00:00 [facility] TDAP 2021-01-29 Completed [facility] of 00:00:00 [facility] TDAP 2021-01-29 Completed [facility] of 00:00:00 [facility] TDAP 2021-01-29 Completed [facility] of 00:00:00 [facility] TDAP 2021-01-29 Completed [facility] of 00:00:00 [facility] TDAP 2021-01-29 Completed [facility] of 00:00:00 [facility] TDAP 2021-01-29 Completed [facility] of 00:00:00 [facility] TDAP 2021-01-29 Completed [facility] of 00:00:00 [facility] Influenza Virus 2018-09-27 Completed [facility] .5 mL 00:00:00 [place] [facility] 6+ MO Branch Influenza Virus 2018-09-27 Completed [facility] .5 mL 00:00:00 [place] [facility] 6+ MO Branch Influenza Virus 2018-09-27 Completed [facility] .5 mL 00:00:00 [place] [facility] 6+ MO Branch Influenza Virus 2018-09-27 Completed [facility] .5 mL 00:00:00 [place] [facility] 6+ MO Branch Influenza Virus 2018-09-27 Completed [facility] .5 mL 00:00:00 [place] [facility] 6+ MO Branch Influenza Virus 2018-09-27 Completed [facility] .5 mL 00:00:00 [place] [facility] 6+ MO Branch Influenza Virus [...] y of [facility] .5 mL 00:00:00 [place] [facility] 6+ MO Branch Influenza Virus 2018-09-27 Completed [facility] y [facility] .5 mL 00:00:00 [place] [facility] 6+ MO Branch Influenza Virus 2018-09-27 Completed [facility] .5 mL 00:00:00 [place] [facility] 6+ MO Branch Influenza Virus 2018-09-27 Completed [facility] .5 mL 00:00:00 [place] [facility] 6+ MO Branch Influenza Virus 2018-09-27 Completed [facility] .5 mL 00:00:00 [place] [facility] 6+ MO Branch Influenza Virus 2018-09-27 Completed [facility] y [facility] .5 mL 00:00:00 [facility] 6+ MO Branch Influenza Virus 2018-09-27 Completed [facility] y of [facility] .5 mL 00:00:00 [place] [facility] 6+ MO Branch Influenza Virus 2018-09-27 Completed [facility] .5 mL 00:00:00 [place] [facility] 6+ MO Branch Influenza Virus 2018-09-27 Completed [facility] .5 mL 00:00:00 [place] [facility] 6+ MO Branch Influenza Virus 2018-09-27 Completed [facility] .5 mL 00:00:00 [place] [facility] 6+ MO Branch Influenza Virus 2018-09-27 Completed [facility] .5 mL 00:00:00 [place] [facility] 6+ MO Branch Influenza Virus 2018-09-27 Completed [facility] .5 mL 00:00:00 [place] [facility] 6+ MO Branch Influenza Virus 2018-09-27 Completed [...] y of [facility] .5 mL 00:00:00 [place] [facility] 6+ MO Branch Influenza Virus 2018-09-27 Completed [facility] .5 mL 00:00:00 [place] [facility] 6+ MO Branch Influenza Virus 2016-10-20 Completed [facility] y [facility] 3+ 00:00:00 [facility] Influenza Virus 2016-10-20 Completed [facility]it y of [facility] IM 3+ 00:00:00 [facility] Influenza Virus 2016-10-20 Completed [facility] y of [facility] IM 3+ 00:00:00 [facility] Influenza Virus 2016-10-20 Completed [facility] y of [facility] IM 3+ 00:00:00 [facility] Influenza Virus 2016-10-20 Completed [facility] y of [facility] IM 3+ 00:00:00 [facility] Influenza Virus 2016-10-20 Completed [facility] y of [facility] IM 3+ 00:00:00 [facility] Influenza Virus 2016-10-20 Completed [facility] y of [facility] IM 3+ 00:00:00 [facility] Influenza Virus 2016-10-20 Completed [facility] y of [facility] IM 3+ 00:00:00 [facility] Influenza Virus 2016-10-20 Completed [facility] y of [facility] IM 3+ 00:00:00 [facility] Influenza Virus 2016-10-20 Completed [facility] y of [facility] IM 3+ 00:00:00 [facility] Influenza Virus 2016-10-20 Completed [facility] y of [facility] IM 3+ 00:00:00 [facility] Influenza Virus 2016-10-20 Completed [facility] y of [facility] IM 3+ 00:00:00 [facility] Influenza Virus 2016-10-20 Completed [facility] y of [facility] IM 3+ 00:00:00 [facility] Influenza Virus 2016-10-20 Completed [facility] y of [facility] IM 3+ 00:00:00 [facility] Influenza Virus 2016-10-20 Completed [facility] y of [facility] 3+ 00:00:00 [facility] Influenza Virus 2016-10-20 Completed [facility] y of [facility] 3+ 00:00:00 [facility] Influenza Virus 2016-10-20 Completed [facility] y of [facility] 3+ 00:00:00 [facility] Influenza Virus 2016-10-20 Completed [facility] y of [facility] 3+ 00:00:00 [facility] Influenza Virus 2016-10-20 Completed [facility] y of [facility] 3+ 00:00:00 [facility] Influenza Virus 2016-10-20 Completed [facility] y of [facility] 3+ 00:00:00 [facility] Influenza Virus 2016-10-20 Completed [facility] y of [facility] 3+ 00:00:00 [facility] Influenza Virus 2016-10-20 Completed [facility] y of [facility] 3+ 00:00:00 [facility] Influenza Virus 2016-10-20 Completed [facility] y of [facility] IM 3+ 00:00:00 [facility] Influenza Virus 2016-10-20 Completed [facility] y of [facility] IM 3+ 00:00:00 [facility] Influenza Virus 2016-10-20 Completed [facility] y of [facility] IM 3+ 00:00:00 [facility] Influenza Virus 2016-10-20 Completed [facility] y of [facility] IM 3+ 00:00:00 [facility] Influenza Virus 2016-10-20 Completed [facility] y of [facility] 3+ 00:00:00 [facility] Influenza Virus 2016-10-20 Completed [facility] y of [facility] 3+ 00:00:00 [facility] Influenza Virus 2016-10-20 Completed [facility] y of [facility] IM 3+ 00:00:00 [facility] Influenza Virus 2016-10-20 Completed [facility]it y of [facility]ine [facility] IM 3+ 00:00:00 [facility] Influenza Virus 2016-10-20 Completed [facility]it y of [facility] IM 3+ 00:00:00 [facility] TDAP 2015-01-29 Completed University of 00:00:00 [facility] TDAP 2015-01-29 Completed [facility] of 00:00:00 [facility] TDAP 2015-01-29 Completed [facility] of 00:00:00 [facility] TDAP 2015-01-29 Completed [facility] of 00:00:00 [facility] TDAP 2015-01-29 Completed [facility] of 00:00:00 [facility] TDAP 2015-01-29 Completed [facility] of 00:00:00 [facility] TDAP 2015-01-29 Completed [facility] of 00:00:00 [facility] TDAP 2015-01-29 Completed [facility] of 00:00:00 [facility] TDAP 2015-01-29 Completed [facility] of 00:00:00 [facility] TDAP 2015-01-29 Completed [facility] of 00:00:00 [facility] TDAP 2015-01-29 Completed [facility] of 00:00:00 [facility] TDAP 2015-01-29 Completed [facility] of 00:00:00 [facility] TDAP 2015-01-29 Completed [facility] of 00:00:00 [facility] TDAP 2015-01-29 Completed [facility] of 00:00:00 [facility] TDAP 2015-01-29 Completed [facility] of 00:00:00 [facility] TDAP 2015-01-29 Completed [facility] of 00:00:00 [facility] TDAP 2015-01-29 Completed [facility] of 00:00:00 [facility] TDAP 2015-01-29 Completed [facility] of 00:00:00 [facility] TDAP 2015-01-29 Completed [facility] of 00:00:00 [facility] TDAP 2015-01-29 Completed [facility] of 00:00:00 [facility] TDAP 2015-01-29 Completed [facility] of 00:00:00 [facility] TDAP 2015-01-29 Completed [facility] of 00:00:00 [facility] TDAP 2015-01-29 Completed [facility] of 00:00:00 [facility] TDAP 2015-01-29 Completed [facility] of 00:00:00 [facility] TDAP 2015-01-29 Completed [facility] of 00:00:00 [facility] TDAP 2015-01-29 Completed [facility] of 00:00:00 [facility] TDAP 2015-01-29 Completed University of 00:00:00 [facility] TDAP 2015-01-29 Completed University of 00:00:00 [facility] TDAP 2015-01-29 Completed University of 00:00:00 [facility] TDAP 2015-01-29 Completed [facility] of 00:00:00 [facility] TDAP 2015-01-29 Completed [facility] of 00:00:00 [facility] HPV 2010-07-05 Completed University of 00:00:00 [facility] Influenza Virus 2010-07-05 Completed Universit y of Vaccine - Whole 00:00:[address] [facility] HPV 2010-07-05 Completed University of 00:00:00 [facility] Influenza Virus 2010-07-05 Completed Universit y of Vaccine - Whole 00:00:[address] [facility] HPV 2010-07-05 Completed [facility] of 00:00:00 [facility] Influenza Virus 2010-07-05 Completed Universit y of Vaccine - Whole 00:00:[address] [facility] HPV 2010-07-05 Completed [facility] of 00:00:00 [facility] Influenza Virus 2010-07-05 Completed Universit y of Vaccine - Whole 00:00:[address] [facility] HPV 2010-07-05 Completed [facility] of 00:00:00 [facility] Influenza Virus 2010-07-05 Completed Universit y of Vaccine - Whole 00:00:[address] [facility] HPV 2010-07-05 Completed [facility] of 00:00:00 [facility] Influenza Virus 2010-07-05 Completed Universit y of Vaccine - Whole 00:00:[address] [facility] HPV 2010-02-12 Completed [facility] of 00:00:00 [facility] HPV 2010-02-12 Completed [facility] of 00:00:00 [facility] HPV 2010-02-12 Completed [facility] of 00:00:00 [facility] HPV 2010-02-12 Completed [facility] of 00:00:00 [facility] HPV 2010-02-12 Completed [facility] of 00:00:00 [facility] HPV 2010-02-12 Completed [facility] of 00:00:00 [facility] HPV 2009-12-14 Completed [facility] of 00:00:00 [facility] HPV 2009-12-14 Completed [facility] of 00:00:00 [facility] HPV 2009-12-14 Completed [facility] of 00:00:00 [facility] HPV 2009-12-14 Completed [facility] of 00:00:00 [place] [facility] HPV 2009-12-14 Completed [facility] of 00:00:00 [facility] HPV 2009-12-14 Completed [facility] of 00:00:00 [facility] Vital Signs Vital Name Observation Time Observation Value Comments Source Body weight 2022-05-16 13:20:00 90.266 kg [facility] [place] [facility] BMI 2022-05-16 13:20:00 34.16 kg/m2 [facility] [place] [facility] Systolic blood 2022-05-09 14:17:00 116 mm[Hg] Univer sity of pressure [place] [facility] Diastolic blood 2022-05-09 14:17:00 80 mm[Hg] Unive rsity of pressure [facility] Heart rate 2022-05-09 14:17:00 79 /min [facility] [place] [facility] [place] Body temperature 2022-05-09 14:17:00 36.56 Lien Univ ersity of [facility] Respiratory rate 2022-05-09 14:17:00 18 /min Univ ersity of [facility] Body height 2022-05-09 14:17:00 162.6 cm [facility] [place] [facility] Body weight 2022-05-09 14:17:00 88.451 kg [facility] [place] [facility] BMI 2022-05-09 14:17:00 33.47 kg/m2 [facility] [place] [facility] Systolic blood 2022-05-02 19:37:00 120 mm[Hg] [facility]ity of pressure [place] [facility] Diastolic blood 2022-05-02 19:37:00 82 mm[Hg] Unive rsity of pressure [place] [facility] Heart rate 2022-05-02 19:37:00 85 /min [facility] [place] [facility] Body temperature 2022-05-02 19:37:00 36.67 Lien Univ ersity of [facility] Respiratory rate 2022-05-02 19:37:00 18 /min [facility] [place] [facility] Body height 2022-05-02 19:37:00 162.6 cm [facility] [place] [facility] Body weight 2022-05-02 19:37:00 88.905 kg [facility] [place] [facility] BMI 2022-05-02 19:37:00 33.64 kg/m2 [facility] [place] [facility] Systolic blood 2022-04-25 14:49:00 116 mm[Hg] Un[facility]ity of pressure [place] [facility] Diastolic blood 2022-04-25 14:49:00 76 mm[Hg] Unive rsity of pressure [place] [facility] Heart rate 2022-04-25 14:49:00 77 /min [facility] [place] [facility] Body temperature 2022-04-25 14:49:00 36.67 Lien [facility] [place] [facility] Branch Respiratory rate 2022-04-25 14:49:00 18 /min [facility] Body weight 2022-04-25 14:49:00 88.27 kg [facility] BMI 2022-04-25 14:49:00 33.39 kg/m2 [facility] Systolic blood 2022-04-11 20:50:00 135 mm[Hg] [facility] Diastolic blood 2022-04-11 20:50:00 81 mm[Hg] [facility] Heart rate 2022-04-11 20:50:00 84 /min [facility] Oxygen saturation in 2022-04-11 20:50:00 99 /min [facility] of Arterial blood by [facility] Pulse oximetry Branch Body height 2022-04-11 20:45:00 162.6 cm [facility] Body weight 2022-04-11 20:45:00 86.637 kg [facility] BMI 2022-04-11 20:45:00 32.77 kg/m2 [facility] Body temperature 2022-04-11 20:18:00 37.22 Lien [facility] Respiratory rate 2022-04-11 20:18:00 18 /min [facility] Systolic blood 2022-04-11 19:39:00 116 mm[Hg] [facility] Diastolic blood 2022-04-11 19:39:00 75 mm[Hg] [facility] Heart rate 2022-04-11 19:39:00 90 /min [facility] Body temperature 2022-04-11 19:39:00 37.06 Lien [facility] Respiratory rate 2022-04-11 19:39:00 18 /min [facility] Body height 2022-04-11 19:39:00 162.6 cm [facility] Body weight 2022-04-11 19:39:00 88.083 kg [facility] BMI 2022-04-11 19:39:00 33.33 kg/m2 [facility] Oxygen saturation in 2022-04-11 19:39:00 97 /min [facility] Arterial blood by [facility] Pulse oximetry Branch BMI 2022-04-02 14:51:00 33.99 kg/m2 [facility] Systolic blood 2022-04-02 14:51:00 114 mm[Hg] [facility] Diastolic blood 2022-04-02 14:51:00 73 mm[Hg] [facility] Heart rate 2022-04-02 14:51:00 82 /min [facility] Body temperature 2022-04-02 14:51:00 36.78 Lien [facility] Respiratory rate 2022-04-02 14:51:00 18 /min [facility] Body height 2022-04-02 14:51:00 162.6 cm [facility] Body weight 2022-04-02 14:51:00 89.812 kg [facility] Procedures Procedure Date / Time Performing Clinician Source Performed SECOND AND THIRD 2022-05-12 19:14:00 Rebekah Vaz [facility] TRIMESTER ULTRASOUND Medical [facility] URINE CULTURE 2022-05-02 21:31:00 [place]bekah Vaz [place] [facility] FLU VACC ([phone]), 6 2022-05-02 19:55:18 Rebekah Vaz [facility] MO-64 YRS, .5ML, IM, QUAD Medica l Branch (FLUCELVAX) POCT URINALYSIS W/O 2022-05-02 00:00:00 Rebekah Vaz [facility] SPECIFIC GRAVITY [facility] EXTERNAL PROVIDER RECORDS 2022-04-24 05:01:00 Doctor Unassigned, [facility] [place] [facility] MEDICATION CORRESPONDENCE 2022-04-15 05:01:00 Doctor Krueger [facility] [place] [facility] [place] URINALYSIS 2022-04-11 21:14:00 Rebekah Vaz [place] [facility] ADC CLC OR LCC ONLY - WET 2022-04-11 21:14:00 Rebekah Vaz [facility] CONSENT/REFUSAL FOR 2022-04-11 20:18:44 Doctor Evans [facility]NOSIS [facility] AUTHORIZATION TO RELEASE 2022-04-02 05:01:00 Doctor Krueger [facility] PHI TO [facility] POCT URINALYSIS W/O 2022-04-02 00:00:00 Rebekah Vaz [facility] SPECIFIC GRAVITY [facility] 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 2022-02-06 05:01:00 Doctor Krueger [facility] [place] [facility] Encounters Start End Encounter Admission Attending Care Care Encounter Source Date/Time Date/Time Type Type Clinicians Facility Department ID 2022-04-11 Outpatient X [facility] CHRISTOPHER [id number] Univers 19:02:10 ity [facility] 2021-06-03 Outpatient [facility] [id number] Univers 18:52:17 ity [facility] 2021-06-03 Outpatient P [facility] CHRISTOPHER [id number] Univers 07:14:53 [facility] 2021-06-03 Outpatient [facility] [id number] Univers 07:14:18 ity [facility] 2021-06-03 Emergency [facility] [id number] [facility]02 Emergency [facility] [id number] [facility] 2022-08-15 2022-08-15 Outpatient Ruben PRICE [facility] [id number] Univers 11:00:00 11:00:00 ROD anglin [facility] 2022-07-11 2022-07-11 Outpatient Ruben PRICE [facility] [id number] Univers 10:00:00 10:00:00 ROD anglin [facility] 2022-05-30 2022-05-30 Outpatient R REBEKAH VAZ [facility] [id number] Univers 09:00:00 09:00:00 ity [facility] 2022-05-27 2022-05-27 Outpatient P [facility] [id number] Univers 13:45:00 13:45:00 ity [facility] 2022-05-23 2022-05-23 Outpatient R REBEKAH VAZ [facility] [id number] Univers 09:00:00 09:00:00 ity [facility] 2022-05-16 2022-05-16 [facility] [id number] Univers 11:15:00 11:15:00 ROD anglin [facility] 2022-05-16 2022-05-16 Braiding Operator Lab, Poncho Diamond [facility] 1.2.840.1 14 [id number] Univers 11:15:00 11:15:00 Visit Rod Price HEALTH 350.1.13.10 ity of [place] 4.2.7.2.686 Marty as EMMETT?BLEA [id number] Ma marcela MYERS [address] [place] MEDICAL OFFICE BUILDING 2022-05-16 2022-05-16 Nurse Nurse, Lkj [facility] 1.2.840.114 [id number] Univers 09:00:00 09:15:00 Visit Rebekah Vaz 350.1.13.10 ity of [place] [id number] [facility] [address] [place] 2022-05-16 2022-05-16 Letter Dee [facility] 1.2.299.661 [id number] Univers 00:00:00 00:00:00 (Out) Rod Mosqueda HEALTH 350.1.13.10 it y of [place] 4.2.7.2.686 Marty as EMMETT?BLEA [id number] Ma marcela MYERS [address] [place] MEDICAL OFFICE BUILDING 2022-05-12 2022-05-12 Braiding Operator 1, [facility] Usg Room UNIVERSIT 1 .2.840.114 [id number] Univers 13:30:00 14:29:00 Visit Severo Mcclellan HEALTH 350.1.13.10 ity of CL[place]ICS [place].2.[place] [id number] [facility] 104 [address] 2022-05-12 2022-05-12 Outpatient P SEVERO MCCLELLAN [facility] [id number] Univers 13:30:00 13:30:00 RITCHIE SEVERO [facility] 2022-05-10 2022-05-10 Nurse ADRIÁN Huber 1.2.840.114 [id number] Univers 00:00:00 00:00:00 Triage Christine AVALOS 350.1.13.10 it y of [facility] 4.2.7.2.686 [place] as [id number] [facility] 019 Branch 2022-05-09 2022-05-09 Outpatient R REBEKAH VAZ [facility] [id number] Univers 09:00:00 09:15:22 [facility] 2022-05-09 2022-05-09 Nurse [facility] 1.2.840.114 [id number] Univers 09:00:00 09:15:22 Visit Rebekah Vaz 350.1.13.10 ity of [facility] 4.2.7.2.[place] [id number] [facility] 134 [address] 2022-05-09 2022-05-09 [facility] 1.2.840.114 [id number] Univers 00:00:00 00:00:00 Rod [facility] 350.1.13.10 it y of [place] 4.2.7.2.686 [place] as EMMETT?BLEA [phone] Ma marcela MYERS [address] [place] MEDICAL OFFICE BUILDING 2022-05-05 2022-05-05 Braiding Operator David, Mehdi Lab Main [facility] 1.2.8 40.114 [id number] Univers 13:45:00 14:00:00 Visit Aydin Ferrera 350.1.13.10 ity of Rebekah Vaz 4.2.7.2.686 [place] PROFESSIO [id number] Ma marcela WALSH [address] [facility] 2022-05-05 2022-05-05 Outpatient R REBEKAH VAZ [facility] [id number] Univers 13:45:00 13:45:00 ity [facility] 2022-05-05 2022-05-05 Telephone Татьяна Rebekah [facility] 1.2.840.114 [id number] Univers 00:00:00 00:00:00 Yonathan MARSHALL 350.1.13.10 i ty of [place] 4.2.7.2.[place] PROFESS[place] [id number] Ma dical [address] 2022-05-02 2022-05-02 Outpatient R ТАТЬЯНА REBEKAH [facility] [id number] Univers 14:30:00 16:22:52 ity [facility] 2022-05-02 2022-05-02 Routine Татьяна Rebekah [facility] 1.2.840.114 [id number] Univers 14:30:00 16:22:52 Cam CLAUDIA 350.1.13.10 i ty of Visit [place] 4.2.7.2.686 [place] [facility] [id number] [address] 2022-04-28 2022-04-28 Outpatient P ULICES [facility] [id number] Univers 14:15:00 15:28:24 JULIAN ity [facility] 2022-04-28 2022-04-28 Braiding Operator 2, [facility] Us Room UNIVERSIT 1 .2.840.114 [id number] Univers 14:15:00 14:45:00 Visit Julian Elena HEALTH 350.1.13. 10 ity of CL[place] [id number] [address] 2022-04-28 2022-04-28 Telephone Jamila Zaldivar [facility] FATOU 1.2.840.11 [id number] Univers 00:00:00 00:00:00 CALUDIA 350.1.13.10 it y [place] [id number] [address] 2022-04-25 2022-04-25 Nurse Nurse, [facility] 1.2.840.114 [id number] Univers 10:00:00 10:00:00 Visit ТатьянаDarshanteo MARSHALL 350.1.13.10 ity of [facility] [place].2.[place] PROF[place] [id number] Ma dical NAL [address] [place] [address] 2022-04-25 2022-04-25 Outpatient R REBEKAH VAZ [facility] [id number] Univers 10:00:00 09:46:21 ity of [facility] 2022-04-24 2022-04-24 Orders Doctor ADRIÁN 1.2.840.114 [id number] Univers 00:00:00 00:00:00 Only Unassigned, BAILEY 350.1.13.[address] [facility] 4.2.7.2.686 [place] as [id number] [address] 2022-04-22 2022-04-22 Telephone Rebekah Vaz [facility] 1.2.840.114 [id number] Univers 00:00:00 00:00:00 Cam ROLANDO 350.1.13.10 i ty of [facility] 4.2.7.2.[place] PROF[place] [id number] Ma dical NAL [address] [place] [address] 2022-04-18 2022-04-18 Telephone Rebekah Vaz [facility] 1.2.840.114 [id number] Univers 00:00:00 00:00:00 Cam ROLANDO 350.1.13.10 i ty of [facility] 4.2.7.2.[place] [id number] Ma dical NAL [address] [place] [address] 2022-04-15 2022-04-15 Orders Doctor ADRIÁN 1.2.840.114 [id number] Univers 00:00:00 00:00:00 Only Unassigned, BAILEY 350.1.13.10 ity of [facility] 4.2.7.2.686 Marty as [id number] [address] 2022-04-14 2022-04-14 Patient Jaxon [facility] 1.2.840.114 [id number] Univers 00:00:00 00:00:00 Secure Msg Ana Cristinanisa MARSHALL 350.1.13.10 ity of [facility] 4.2.7.2.[place] PROF[place] [id number] Ma dical NAL [address] [place] [address] 2022-04-132022-04-13 Case REID Hoskins 1.2.946.525 [id number] Univers 00:00:00 00:00:00 Management Conchita PEDIATRIC 350.1.13.10 ity of [place].2.7.2.686 [place] ADULT [id number] [facility] PRIMARY [address] CARE CLINIC 2022-04-11 2022-04-11 Outpatient X REBEKAH VAZ [facility] CHRISTOPHER [id number] Univers 15:23:00 19:00:00 ity of [facility] 2022-04-11 2022-04-11 Emergency Wicho Boateng [facility] 1.2.840.1 14 [id number] Univers 15:23:00 19:00:00 ZenNatividadbarrett MARSHALL 350.1.13.10 ity of Rebekah Vaz 4.2.7.2.686 [facility] [id number] [place] 984223 Branch 2022-04-11 2022-04-11 Nurse Nurse, Poncho Diamond [facility] 1.2.840.114 [id number] Univers 14:45:00 15:05:00 Visit [facility] 350.1.13.10 ity of [place] 4.2.7.2.686 Marty as EMMETT?BLEA [id number] [address] MEDICAL OFFICE BUILDING 2022-04-11 2022-04-11 Outpatient R LELA [facility] [id number] Univers 14:45:00 15:02:41 [facility] 2022-04-11 2022-04-11 Outpatient R LELA [facility] [id number] Univers 14:20:00 14:20:00 [facility]IA [facility] 2022-04-10 2022-04-10 Outpatient R [facility] [id number] Univers 08:45:00 08:45:00 ity [facility] 2022-04-02 2022-04-02 Outpatient R REBEKAH VAZ [facility] [id number] Univers 10:00:00 10:44:45 ity [facility] 2022-04-02 2022-04-02 Routine Rebekah Vaz [facility] 1.2.514.638 [id number] Univers 10:00:00 10:44:45 Cam ANGLEKENNETH 350.1.13.10 ity of Visit [place] 4.2.[place] PROFESS[place] [id number] [facility] 134 [facility] 2022-04-02 2022-04-02 Outpatient R VAZ [facility] [id number] Univers 10:00:00 10:44:45 ity of [facility] 2022-04-02 2022-04-02 Telephone Татьяна [facility] 1.2.840.114 [id number] Univers 00:00:00 00:00:00 Cam ROLANDO 350.1.13.10 i ty of [place] 4.2.7.2.[place] PROFESS[place] [id number] [address] 2022-04-02 2022-04-02 Orders Doctor ADRIÁN 1.2.840.114 [id number] Univers 00:00:00 00:00:00 Only Unassigned, BAILEY 350.1.13.10 ity of [place] [facility] 4.2.7.2.686 Marty as [id number] [facility] [address] [place] 2022-03-30 2022-03-30 Shirley Denson [facility] 1.2.840.114 [id number] Univers 00:00:00 00:00:00 Linda HEALTH 350.1.13.10 it y of [place] 4.2.7.2.686 Marty as EMMETT?BLEA [id number] [facility] [address] [place] MEDICAL OFFICE BUILDING 2022-03-24 2022-03-24 ANNETTE Haley 1.2.840.114 [id number] Univers 00:00:00 00:00:00 Management Rosa OLIVAS 350.1.13.10 [place] of [place].7.2.[place] [id number] [facility] [address] [place] 2022-03-21 2022-03-21 ADRIÁN Murray 1.2.840.114 [id number] Univers 00:00:00 00:00:00 (Out) Rhonda BAILEY 350.1.13.10 it y of HOSPITAL 4.2.7.2.686 [place] [id number] [address] 2022-03-20 2022-03-20 Outpatient R LELA [facility] [id number] Univers 17:40:00 18:04:01 [facility] 2022-03-20 2022-03-20 Urgent [facility] 1.2.840.114 [id number] Univers 17:40:00 18:00:00 Care [facility] 350.1.13.10 it y of [place] 4.2.7.2.686 Marty as EMMETT?BLEA [id number] [address] MEDICAL OFFICE [facility] 2022-03-20 2022-03-20 Outpatient R LELA [facility] [id number] Univers 17:15:00 17:15:00 [facility] 2022-03-20 2022-03-20 Letter Provider, [facility] 1.2.917.454 [id number] Univers 00:00:00 00:00:00 (Out) [facility] 350.1.13.10 it y of Urgent Care [place] 4.2.7.2.686 [place] EMMETT?BLEA [id number] [address] MEDICAL OFFICE BUILDING 2022-03-18 2022-03-18 Outpatient R JAMILA ZALDIVAR [facility] [id number] Univers 13:00:00 13:00:00 ity of [facility] 2022-03-07 2022-03-07 Outpatient R NATIVIDAD ZALDIVARN [facility] [id number] Univers 08:30:00 08:30:00 ity of [facility] 2022-03-03 2022-03-03 [facility] ERT [id number] Univers 16:18:00 16:40:00 [place] it y of [facility] 2022-03-03 2022-03-03 Emergency [facility] 1.2.515.990 [id number] Univers 16:18:00 16:40:00 [facility] 350.1.13.10 [facility]y [facility].2.7.2.686 [facility] [id number] [facility] 0[address] 2022-03-03 2022-03-03 Outpatient R DIANE [facility] [id number] Univers 09:45:00 09:45:00 SONI ity [facility] 2022-02-27 2022-02-27 Outpatient R JAMILA ZALDIVAR [facility] [id number] Univers 13:45:00 14:33:07 ity [facility] 2022-02-27 2022-02-27 Routine Jamila Zaldivar [facility] LAINEZ 1.2.840.114 [id number] Univers 13:45:00 14:33:07 CLAUDIA 350.1.13.10 i ty of Visit [place] 4.2.7.2.[place] [facility] [id number] [facility] [address] [place] 2022-02-27 2022-02-27 Outpatient R JAMILA ZALDIVAR [facility] [id number] Univers 13:45:00 13:45:00 ity [facility] 2022-02-11 2022-02-11 Outpatient R KOBE [facility] [id number] Univers 14:00:00 14:00:00 [facility] 2022-02-11 2022-02-11 Outpatient R KOBE [facility] [id number] Univers 14:00:00 14:00:00 [facility] 2022-02-08 2022-02-08 ADRIÁN Murray 1.2.840.114 [id number] Univers 00:00:00 00:00:00 (Out) Rhonda AVALOS 350.1.13.10 it y of HOSPITAL 4.2.7.2.686 [place] as [id number] [facility] [address] 2022-02-07 2022-02-07 Jimbo Denson ILANTONELLA 1.2.840.114 [id number] Univers 17:40:00 18:00:00 Care Linda HEALTH 350.1.13.10 it y of [place] 4.2.7.2.686 [place] as EMMETT?BLEA [id number] [address] MEDICAL OFFICE BUILDING 2022-02-07 2022-02-07 Outpatient R JARETT [facility] [id number] Univers 17:40:00 17:49:36 LINDA ity of [facility] 2022-02-07 2022-02-07 Outpatient R [facility] [id number] Univers 09:00:00 09:00:00 ity of [facility] 2022-02-06 2022-02-06 Outpatient R JAMILA ZALDIVAR [facility] [id number] Univers 13:00:00 13:54:43 ity of [facility] 2022-02-06 2022-02-06 Routine Jamila Zaldivar [facility] 1.2.840.114 [id number] Univers 13:00:00 13:54:43 CLAUDIA 350.1.13.10 i ty of Visit [facility] 4.2.7.2.686 [facility] [id number] [address] 2022-02-06 2022-02-06 Outpatient R JAMILA ZALDIVAR [facility] [id number] Univers 13:00:00 13:00:00 ity of [facility] 2022-02-06 2022-02-06 Orders Doctor ADRIÁN 1.2.840.114 [id number] Univers 00:00:00 00:00:00 Only Unassigned, BAILEY 350.1.13.10 ity of [place] [facility] 4.2.7.2.686 Marty as [id number] [address] 2022-01-31 2022-01-31 Outpatient R JAMILA ZALDIVAR [facility] [id number] Univers 13:15:00 14:15:21 ity of [facility] 2022-01-31 2022-01-31 Routine Jamila Zaldivar [facility] 1.2.840.114 [id number] Univers 13:15:00 14:15:21 [place] 350.1.13.10 ity of Visit [place] 4.2.7.2.686 [place] [facility] [id number] Ma dical [address] 2022-01-31 2022-01-31 Outpatient R JAMILA ZALDIVAR [facility] [id number] Univers 13:30:00 13:30:00 ity [facility] 2022-01-29 2022-01-29 Braiding Operator Lab, [facility] 1.2.840.1 14 [id number] Univers 14:30:00 14:58:49 Visit Jamila Zaldivar 350.1.13.10 ity of [place] 4.2.7.2.686 [place] as EMMETT?BLEA [id number] [address] OFFICE [facility] 2022-01-29 2022-01-29 Braiding Operator Lab, [facility] 1.2.840.1 14 [id number] Univers 14:30:00 14:45:00 Visit Jamila Zaldivar 350.1.13.10 ity of [facility] 4.2.7.2.686 [place] as EMMETT?BLEA [id number] [address] 2022-01-29 2022-01-29 Outpatient R JAMILA ZALDIVAR [facility] [id number] Univers 14:30:00 14:30:00 ity [facility] 2022-01-29 2022-01-29 Outpatient R JAMILA ZALDIVAR [facility] [id number] Univers 10:30:00 10:30:00 ity of [facility] 2022-01-29 2022-01-29 Telephone Jamila Zaldivar [facility] 1.2.840.11 [id number] Univers 00:00:00 00:00:00 CLAUDIA 350.1.13.10 it y [place] [id number] [address] 2022-01-29 2022-01-29 Patient Jaxon [facility] 1.2.840.114 [id number] Univers 00:00:00 00:00:00 Secure Msg Ana Cristina MARSHALL 350.1.13.10 ity of [place].7.2.[place] PROFESS[place] [id number] [address] 2022-01-29 2022-01-29 Telephone Jamila Zaldivar [facility] 1.2.840.11 [id number] Univers 00:00:00 00:00:00 CLAUDIA 350.1.13.10 it y of W[place] 4.2.7.2.[place] HEALTH [id number] [address] 2022-01-27 2022-01-27 Braiding Operator Lab, Ang - Db [facility] 1.2.840.1 14 [id number] Univers 10:45:00 10:45:00 Visit Jamila Zaldivar 350.1.13.10 ity of [place] 4.2.7.2.686 Marty as EMMETT?BLEA [id number] Ma marcela [facility] [address] MEDICAL OFFICE [facility] 2022-01-27 2022-01-27 Urgent Amanda Chinchilla [facility] 1.2.840. 114 [id number] Univers 10:20:00 10:40:00 Care Song Linda HEALTH 350.1.13.10 ity of [facility] 4.2.7.2.686 [place] as EMMETT?BLEA [id number] [facility] [address] [facility] OFFICE [facility] 2022-01-27 2022-01-27 Outpatient R JAMILA ZALDIVAR [facility] [id number] Univers 08:30:00 09:36:17 ity of [facility] 2022-01-27 2022-01-27 Initial Jamila Zaldivar [facility] 1.2.840.114 [id number] Univers 08:30:00 09:36:17 CLAUDIA 350.1.13.10 i ty of [place] [id number] [address] 2022-01-27 2022-01-27 Letter Jamila Zaldivar [facility] 1.2.840.114 [id number] Univers 00:00:00 00:00:00 (Out) CLAUDIA 350.1.13.10 it y [place] [id number] [address] 2022-01-27 2022-01-27 Telephone Jamila Zaldivar [facility] 1.2.840.11 [id number] Univers 00:00:00 00:00:00 CLAUDIA 350.1.13.10 it [place] [id number] [address] 2022-01-27 2022-01-27 Orders Doctor ADRIÁN 1.2.840.114 [id number] Univers 00:00:00 00:00:00 Only Unassigned, BAILEY 350.1.13.10 ity of [place] 4.2.7.2.686 Marty as [phone] [facility] [address] [place] 2022-01-08 2022-01-08 [facility] 1.2.840.114 [id number] Univers 00:00:00 00:00:00 Rania HEALTH 350.1.13.10 it y of [place] 4.2.7.2.686 Marty as EMMETT?BLEA [id number] [address] MEDICAL OFFICE [facility] 2021-12-11 2021-12-11 Telephone ADRIÁN Josue 1.2.419.035 [id number] Univers 00:00:00 00:00:00 Rhonda BAILEY 350.1.13.10 it y of [facility] 4.2.7.2.686 Marty as [id number] [facility] [address] [place] 2021-12-10 2021-12-10 Outpatient R EBRARODDY, [facility] [id number] Univers 15:40:00 16:07:31 CECELIA [facility] 2021-12-10 2021-12-10 Urgent Ebrahim, Cecelia [facility] 1.2.840.114 [id number] Univers 15:40:00 16:07:31 Care Green, [place] [facility] 350.1.13.10 ity of [place] 4.2.7.2.686 Marty as EMMETT?BLEA [id number] [address] MEDICAL OFFICE [facility] 2021-12-10 2021-12-10 Outpatient R EBRAHIM, [facility] [id number] Univers 15:40:00 16:07:31 CECELIA anglin [facility] 2021-10-28 2021-10-28 [facility] [id number] Univers 17:20:00 17:53:40 LINDA itcorona [facility] 2021-10-28 2021-10-28 [facility] 1.2.840.114 [id number] Univers 17:20:00 17:53:40 [facility] 350.1.13.10 it y of [place] 4.2.7.2.686 Marty as EMMETT?BLEA [id number] [address] [place] [facility] 2021-10-21 2021-10-21 [facility] 1.2.678.417 [id number] Univers 00:00:00 00:00:00 [facility] 350.1.13.10 it y of [place] 4.2.7.2.686 Marty as EMMETT?BLEA [id number] [address] MEDICAL OFFICE [facility] 2021-10-02 2021-10-02 Outpatient R REBEKAH VAZ [facility] [id number] Univers 14:00[facility]00 [facility] 2021-10-01 Outpatient R KOBE [facility] [id number] Univers 12:30:00 12:30:00 [facility] 2021-10-01 2021-10-01 Outpatient R KOBE [facility] [id number] Univers 10:00:00 10:00:00 [facility] 2021-09-30 2021-09-30 Outpatient R DIANE [facility] [id number] Univers 17:00:00 17:00:00 SONI [facility] 2021-09-28 2021-09-28 Outpatient R KING ALLISON [facility] [id number] Univers 09:20:00 09:35:47 VERNON [facility] 2021-09-27 2021-09-27 Outpatient R REBEKAH VAZ [facility] [id number] Univers 12:30:00 12:30:00 [facility] 2021-09-27 2021-09-27 Telephone Rebekah Vaz ILANTONELLA LAINEZ 1.2.840.114 [id number] Univers 00:00:00 00:00:00 Yonathan CLAUDIA 350.1.13.10 it y of [place] [id number] [place] [address] [place] 2021-09-20 2021-09-20 Telephone Rebekah Vaz [facility] 1.2.840.114 [id number] Univers 00:00:00 00:00:00 Yonathan TAYLOR 350.1.13.10 it y of [place] [id number] [address] 2021-09-14 2021-09-14 Patient Kobe [facility] 1.2.840.114 [id number] Univers 00:00:00 00:00:00 [facility] 350.1.13.10 ity of [place] 4.2.7.2.686 Marty as EMMETT?BLEA [phone] [address] MEDICAL OFFICE BUILDING 2021-09-13 2021-09-13 Outpatient R ТАТЬЯНА [facility] [id number] Univers 11:15:00 12:08:16 ity of [facility] 2021-09-13 2021-09-13 Routine Татьяна [facility] 1.2.840.114 [id number] Univers 11:15:00 12:08:16 Yonathan TAYLOR 350.1.13.10 i ty of Visit [place] [id number] [address] 2021-09-13 2021-09-13 Letter Rebekah Vaz [facility] 1.2.840.114 [id number] Univers 00:00:00 00:00:00 (Out) Yonathan TAYLOR 350.1.13.10 it y of [place] [id number] [address] 2021-09-13 2021-09-13 Orders Doctor ADRIÁN 1.2.840.114 [id number] Univers 00:00:00 00:00:00 Only Unassigned, BAILEY 350.1.13.10 ity of [place] [facility] 4.2.7.2.686 Marty as [id number] [address] 2021-09-04 2021-09-04 Outpatient R ТАТЬЯНА [facility] [id number] Univers 15:00:00 15:00:00 ity of [facility] 2021-09-02 2021-09-02 Outpatient R DIANE [facility] [id number] Univers 09:45:00 09:45:00 SONI ity [facility] 2021-09-02 2021-09-02 Outpatient R KOBE [facility] [id number] Univers 00:00:00 00:00:00 ABRAHAMONG itcorona [facility] 2021-09-02 2021-09-02 Outpatient R KOBE [facility] [id number] Univers 00:00:00 00:00:00 WENTONG [facility] 2021-09-02 2021-09-02 Outpatient R KOBE [facility] [id number] Univers 00:00:00 00:00:00 [facility] 2021-08-30 2021-08-30 Outpatient R DARSHAN VAZEN [facility] [id number] Univers 12:30:00 13:36:54 ity [facility] 2021-08-30 2021-08-30 Initial Vaz Rebekah [facility] LAINEZ 1.2.840.114 [id number] Univers 12:30:00 13:36:54 Yonathan TAYLOR 350.1.13.10 i ty of Visit [place] 4.[place] [id number] [address] 2021-08-30 2021-08-30 Letter Rebekah Vaz [facility] LAINEZ 1.2.840.114 [id number] Univers 00:00:00 00:00:00 (Out) Yonathan TAYLOR 350.1.13.10 it y of [place] [id number] [address] 2021-08-29 2021-08-29 Outpatient R CASSIUS [facility] [id number] Univers 18:40:00 19:35:58 [facility] 2021-08-29 2021-08-29 Urgent Vernon Gonzalez [facility] 1.2.840.114 [id number] Univers 18:40:00 19:00:00 [facility] [employer] 350.1.13.10 ity of [place] 4.2.7.2.686 Marty as EMMETT?BLEA [id number] Ma marcela MYERS [address] MEDICAL OFFICE [facility] 2021-08-29 2021-08-29 Outpatient R CASSIUS [facility] [id number] Univers 18:40:00 18:40:00 NELSON ity [facility] 2021-08-27 2021-08-27 Braiding Operator Lab, Ang - Db [facility] 1.2.840.1 14 [id number] Univers 14:00:00 14:15:00 Visit Kobe [facility] 350.1.13.10 ity of [place] 4.2.7.2.686 Marty as EMMETT?BLEA [id number] Ma marcela MYERS [address] MEDICAL OFFICE [facility] 2021-08-27 2021-08-27 Office Kobe [facility] 1.2.840.114 [id number] Univers 13:00:00 14:05:18 Visit [facility] [employer] 350.1.13.10 it y of [place] 4.2.7.2.686 Marty as EMMETT?BLEA [id number] Ma marcela MYERS [address] MEDICAL OFFICE [facility] 2021-08-27 2021-08-27 Outpatient R KOBE [facility] [id number] Univers 13:00:00 14:05:18 [facility] 2021-08-27 2021-08-27 Outpatient R COLTON [facility] [id number] Univers 14:00:00 14:00:00 MAR ity [facility] 2021-08-27 2021-08-27 Outpatient R KOBE [facility] [id number] Univers 14:00:00 14:00:00 [facility] 2021-08-27 2021-08-27 Orders Doctor ADRIÁN 1.2.840.114 [id number] Univers 00:00:00 00:00:00 Only Unassigned, BAILEY 350.1.13.10 ity of [place] [facility] 4.2.7.2.686 Marty as [id number] [address] 2021-08-27 2021-08-27 Letter Kobe [facility] 1.2.840.114 [id number] Univers 00:00:00 00:00:00 (Out) [facility] [employer] 350.1.13.10 it y of [place] 4.2.7.2.686 Marty as EMMETT?BLEA [id number] Ma marcela MYERS [address] MEDICAL OFFICE BUILDING 2021-08-26 2021-08-26 Outpatient R GRACEALDEN [facility] [id number] Univers 09:00:00 09:00:00 [facility] ity [facility] 2021-08-26 2021-08-26 Outpatient R GRACEALDEN [facility] [id number] Univers 09:00:00 09:00:00 JOSH ity [facility] 2021-08-26 2021-08-26 Outpatient R GRACEALDEN [facility] [id number] Univers 09:00:00 09:00:00 [facility] 2021-08-23 2021-08-23 Outpatient R REBEKAH VAZ [facility] [id number] Univers 10:45:00 10:45:00 ity [facility] 2021-07-23 2021-07-23 Laboratory Only, Ang Db Test [facility] 1.2.8 40.114 [id number] Univers 18:00:00 18:15:[address] [facility] 350.1.13.10 ity of [place] 4.2.7.2.686 Marty as EMMETT?BLEA [id number] Ma marcela [facility] [address] MEDICAL OFFICE [facility] 2021-07-23 2021-07-23 [facility] [id number] Univers 18:00:00 18:00:00 NELSON ity [facility] 2021-07-23 2021-07-23 [facility] [id number] Univers 16:00:00 16:00:00 NELSON ity [facility] 2021-07-23 2021-07-23 Outpatient R [facility] [id number] Univers 15:45:00 15:45:00 ity [facility] 2021-07-04 2021-07-04 Orders Doctor SAMPSON 1.2.840.114 [id number] Univers 00:00:00 00:00:00 Only Unassigned, BAILEY 350.1.13.[address] 4.2.7.2.686 Marty as [id number] [address] 2021-06-26 2021-06-26 [facility] [id number] Univers 16:00:00 16:11:06 LIBBY young [facility] 2021-06-26 2021-06-26 Urgent Nelson Hammonds [facility] 1.2.840.114 [id number] Univers 14:02:21 14:22:21 Brandon Libby Gr J HEALTH 350.1.13.10 ity [facility] 4.2.7.2.686 Marty as EMMETT?BLEA [id number] [address] MEDICAL OFFICE BUILDING 2021-06-26 2021-06-26 Outpatient [facility] [id number] Univers 14:00:00 14:00:00 LIBBY young [facility] 2021-06-26 2021-06-26 Outpatient R [facility] [id number] Univers 10:00:00 10:00:00 [facility] 2021-06-24 2021-06-24 Out[facility] [id number] Univers 10:00:00 10:00:00 SONI [facility] 2021-06-24 2021-06-24 Telephone [facility] 1.2.727.393 [id number] Univers 00:00:00 00:00:00 Soni Hinojosa HEALTH 350.1.13.10 i ty [facility] 4.2.7.2.686 Marty as EMMETT?BLEA [id number] [address] MEDICAL OFFICE BUILDING 2021-06-21 2021-06-21 Outpatient [facility] [id number] Univers 09:30:00 09:30:00 MUKUND [facility] 2021-06-21 2021-06-21 Refilana [facility]otoUNIVERS[facility] 1.2.840.114 [id number] Univers 00:00:00 00:00:00 Mukund HEALTH 350.1.13.10 it y of [place] 4.2.7.2.686 Marty as EMMETT?BLEA [id number] [facility] [address] MEDICAL OFFICE [facility] 2021-06-18 2021-06-18 Outpatient R CHARLES [facility] [id number] Univers 09:30:00 09:30:00 MUKUND ity [facility] 2021-06-18 2021-06-18 Telephone [facility]UN[facility] 1.2.271.532 [id number] Univers 00:00:00 00:00:00 Mukund HEALTH 350.1.13.10 it y of [place] 4.2.7.2.686 Marty as EMMETT?BLEA [phone] [address] OFFICE [facility] 2021-06-13 2021-06-13 Patient [facility]UN[facility] 1.2.840.114 [id number] Univers 00:00:00 00:00:00 Secure Msg Mukund HEALTH 350.1.13.10 ity [facility] 4.2.7.2.686 Marty as EMMETT?BLEA [id number] [address] 2021-06-12 2021-06-12 [facility] [id number] Univers 13:30:00 14:12:46 ERIC anglin [facility] 2021-06-12 2021-06-12 Office [facility] 1.2.306.474 [id number] Univers 13:23:25 14:12:46 Visit Eric Hammond AUTOMOBILE SERVICE [employer]ITER 350.1.13.10 it y of [facility] 4.2.7.2.686 Marty as MATERNAL [phone] Med ical & CHILD [address] [place] [address] 2021-06-12 2021-06-12 Out[facility] [id number] Univers 13:30:00 13:30:00 ERIC anglin [facility] 2021-06-07 2021-06-07 Hospital [facility]UN[facility] 1.2.840.114 [id number] Univers 10:32:59 23:59:00 Encounter Mukund HEALTH 350.1.13.10 ity of [place] 4.2.7.2.686 Marty as EMMETT?BLEA [id number] Ma marcela MYERS [address] [facility] OFFICE [facility] 2021-06-07 2021-06-07 Outpatient R CHARLES, [facility] [id number] Univers 10:32:59 23:59:00 MUKUND anglin [facility] 2021-06-07 2021-06-07 Outpatient R CHARLES, [facility] [id number] Univers 09:30:00 10:38:03 MUKUNDJUSTO anglin [facility] 2021-06-07 2021-06-07 Office CharlesUN[facility] 1.2.840.114 [id number] Univers 09:27:17 10:38:03 Visit Mukund HEALTH 350.1.13.10 it y of [place] 4.2.7.2.686 Marty as EMMETT?BLEA [id number] Ma marcela [facility] [address] [facility] OFFICE [facility] 2021-06-07 2021-06-07 Outpatient R CHARLES, [facility] [id number] Univers 09:30:00 09:30:00 MUKUND anglin [facility] 2021-06-05 2021-06-05 Shirley DensonUNIVERSITY OF [facility] 1.2.840.114 [id number] Univers 00:00:00 00:00:00 Linda HEALTH 350.1.13.10 it y of [place] 4.2.7.2.686 Marty as EMMETT?BLEA [phone] Ma marcela MYERS [address] [facility] OFFICE [facility] 2021-06-04 2021-06-04 Outpatient R CHARLES [facility] [id number] Univers 09:30:00 09:30:00 MUKUND anglin [facility] 2021-06-01 2021-06-01 Shirley [facility]UNIV[facility] 1.2.840.114 [id number] Univers 00:00:00 00:00:00 Mukund HEALTH 350.1.13.10 it y of [place] 4.2.7.2.686 Marty as EMMETT?BLEA [id number] Ma marcela [address] OFFICE [facility] 2021-05-31 2021-05-31 Shirley Denson [facility] 1.2.840.114 [id number] Univers 00:00:00 00:00:00 Linda HEALTH 350.1.13.10 it y of [place] 4.2.7.2.686 Marty as EMMETT?BLEA [id number] Ma marcela ALCANTARA [address] [facility] OFFICE [facility] 2021-05-20 2021-05-20 Outpatient R CHAPINCITO [facility] [id number] Univers 13:30:00 13:30:00 JOSH corona [facility] 2021-05-17 2021-05-17 Outpatient R EMILI [facility] [id number] Univers 10:15:00 10:15:00 ERIC corona [facility] 2021-05-10 2021-05-10 Braiding Operator Lab, Ang - Db [facility] 1.2.840.1 14 [id number] Univers 13:53:17 14:07:26 Visit Soni [facility] 350.1.13.10 ity of [place] 4.2.7.2.686 Marty as Emmett?Blea [id number] [facility] 353 [facility] Office [facility] 2021-05-10 2021-05-10 Office Mukund Soto [facility] 1.2.840.114 [id number] Univers 12:57:45 13:53:07 Visit Soin [facility] 350.1.13.10 ity of [place] 4.2.7.2.686 Marty as Emmett?Blea [phone] Ma marcela myers 044 [facility] Office [facility] 2021-05-10 2021-05-10 Out[facility] [id number] Univers 13:00:00 13:00:00 SONI anglin [facility] 2021-05-08 2021-05-08 Urgent Linda Denson [facility] 1.2.840.114 [id number] Univers 18:49:53 19:09:53 Care Amanda [facility] 350.1.13.10 ity of [place] 4.2.7.2.686 Marty as Emmett?Blea [id number] [facility] 370 [facility] Office [facility] 2021-05-08 2021-05-08 Outpatient R ISAIAH [facility] [id number] Univers 19:00:00 19:00:00 AMANDA anglin o f [facility] 2021-05-08 2021-05-08 Outpatient R [facility] [id number] Univers 17:20:00 17:20:00 itcorona [facility] 2021-04-25 2021-04-25 Routine [facility] 1.2.791.712 [id number] Univers 15:59:10 16:44:08 Eric Barrett AUTOMOBILE SERVICE WRITER 350.1.13.10 i ty of Visit REGIONAL 4.2.7.2.686 Marty as MATERNAL [id number] Med ical & CHILD [address] [place] [address] 2021-04-25 2021-04-25 Outpatient R EMILI [facility] [id number] Univers 16:00:00 16:00:00 ERIC anglin [facility] 2021-03-31 2021-04-03 Hospital ADRIÁN Elena 1.2.007.913 [id number] Univers 16:58:00 13:59:00 Encounter Julian AVALOS [place].1.13.10 [place] [address]..2.686 Marty as [id number] [address] 2021-04-02 2021-04-02 Outpatient R EMILI [facility] [id number] Univers 14:15:00 14:15:00 ERIC anglin [facility] 2021-03-31 2021-04-01 Anesthesia [place] 1.2.840 .114 [id number] Univers 20:35:00 03:48:00 Event Adrián Parikh 350.1.13.10 [place] [address].7.2.686 Marty as [id number] [address] 2021-03-31 2021-04-01 Surgery ADRIÁN Elena 1.2.840.114 [id number] Univers 23:00:00 00:43:00 Julian AVALOS [address]1.13.[address]686 Marty as [phone] [address] 2021-03-27 2021-03-27 Out[facility] [id number] Univers 15:45:00 15:45:00 TAB anglin o f [facility] 2021-03-26 2021-03-26 Braiding Operator Ultrasound, [facility] 1.2 .840.114 [id number] Univers 15:04:09 15:34:09 Visit Eric Mock AUTOMOBILE SERVICE WRITER 350.1.13.10 ity of [place]anna Jeronimo REGIONAL 4.2.7.2 .686 [place] MATERNAL [phone] [facility] & CHILD [address] [place] [address] 2021-03-26 2021-03-26 Braiding Operator Ultrasound, [facility] 1.2 .840.114 [id number] Univers 15:04:09 15:34:09 Visit Eric Mock AUTOMOBILE SERVICE WRITER 350.1.13.10 ity of Susanna Jeronimojeanette REGIONAL 4.2.7.2 .686 [place] MATERNAL [id number] [facility] & [address] 2021-03-26 2021-03-26 Outpatient P [facility] [id number] Univers 15:15:00 15:15:00 ERIC anglin [facility] 2021-03-26 2021-03-26 Routine [facility] 1.2.594.012 [id number] Univers 14:15:58 15:03:13 Eric Hammond AUTOMOBILE SERVICE WRITER 350.1.13.10 i ty of Visit REGIONAL 4.2.7.2.686 Marty as MATERNAL [id number] [facility] & [address] 2021-03-26 2021-03-26 Routine [facility] 1.2.812.881 [id number] Univers 14:15:58 15:03:13 Eric Hammond AUTOMOBILE SERVICE WRITER 350.1.13.10 i ty of Visit REGIONAL 4.2.7.2.686 Marty as MATERNAL [id number] [facility] & [address] 2021-03-21 2021-03-21 Telephone [facility] 1.2.840.114 [id number] Univers 00:00:00 00:00:00 Eric Hammond AUTOMOBILE SERVICE WRITER 350.1.13.10 it y of REGIONAL 4.2.7.2.686 Marty as MATERNAL [phone] Med ical & CHILD [address] [place] [address] 2021-03-20 2021-03-20 Outpatient R EMILI [facility] [id number] Univers 12:45:00 12:45:00 ERIC anglin [facility] 2021-03-20 2021-03-20 Braiding Operator Lab, Ang-Rmchp [facility] 1.2.840. 114 [id number] Univers 12:42:40 12:42:47 Visit Eric Mock AUTOMOBILE SERVICE WRITER 350.1.13.10 ity of [facility] 4.2.7.2.686 Marty as MATERNAL [phone] Med ical & CHILD 107 [facility] 2021-03-20 2021-03-20 Telephone [facility] 1.2.840.114 [id number] Univers 00:00:00 00:00:00 Eric Hammond AUTOMOBILE SERVICE WRITER 350.1.13.10 it y of [facility] 4.2.7.2.686 Marty as MATERNAL [phone] Med ical & CHILD [address] [place] [address] 2021-03-19 2021-03-19 Routine [facility] 1.2.938.638 [id number] Univers 14:24:31 15:03:42 Eric N AUTOMOBILE SERVICE WRITER 350.1.13.10 i ty of Visit [facility] 4.2.7.2.686 Marty as MATERNAL [phone] Med ical & CHILD [address] [place] [address] 2021-03-19 2021-03-19 [facility] [id number] Univers 14:15:00 14:15:00 ERIC anglin [facility] 2021-03-12 2021-03-12 Outpatient R [facility] [id number] Univers 09:30:00 09:30:00 itcorona [facility] 2021-03-05 2021-03-05 Routine [facility] 1.2.471.917 [id number] Univers 10:48:25 11:35:50 Eric N AUTOMOBILE SERVICE WRITER 350.1.13.10 i ty of Visit [facility] 4.2.7.2.686 Marty as MATERNAL [phone] Med ical & CHILD 107 [facility] 2021-03-05 2021-03-05 Outpatient Ruben MOCK [facility] [id number] Univers 11:00:00 11:00:00 ERIC corona [facility] 2021-02-27 2021-02-27 Nurse Visit, Ruperto Nurse [facility] 1.2 .840.114 [id number] Univers 15:40:08 15:58:05 Visit Kathryn Fry AUTOMOBILE SERVICE WRITER 350.1.13.10 ity of [facility] 4.2.7.2.686 Marty as MATERNAL [phone] [facility] ical & CHILD [address] [place] [address] 2021-02-27 2021-02-27 Braiding Operator Ultrasound, Margie [facility] 1.2 .840.114 [id number] Univers 14:55:25 15:25:25 Visit Eric Mock AUTOMOBILE SERVICE WRITER 350.1.13.10 ity of [facility] 4.2.7.2.686 Marty as MATERNAL [id number] [facility] ical & CHILD 369 [facility] 2021-02-27 2021-02-27 Outpatient P [facility] [id number] Univers 15:00:00 [facility] 2021-02-26 2021-02-26 Outpatient Ruben MOCK [facility] [id number] Univers 10:45:00 10:45:00 ERIC anglin [facility] 2021-02-22 2021-02-22 Outpatient SEVERO ESCOBAR [facility] [id number] Univers 10:45:00 10:45:00 SEVERO MCCLELLAN [facility] 2021-02-22 2021-02-22 Telemedici Fellow, [facility] 1.2.840.114 [id number] Univers 08:26:49 08:41:49 ne Visit Severo Mcclellan [facility] 350.1.13.[address] [facility] 4.2.7.2.686 [place] [phone] [address] 2021-02-19 2021-02-19 Routine Emili [facility] 1.2.287.420 [id number] Univers 13:04:02 13:55:40 Eric Barrett AUTOMOBILE SERVICE WRITER 350.1.13.10 i ty of Visit REGIONAL 4.2.7.2.686 [place] as MATERNAL [id number] [facility] & CHILD [address] [place] [address] 2021-02-19 2021-02-19 Outpatient R [facility] [id number] Univers 13:00:00 13:00:00 ity [facility] 2021-02-19 2021-02-19 [facility] [id number] Univers 13:00:00 13:00:00 ERIC ity [facility] 2021-02-19 2021-02-19 Telephone Emili [facility] 1.2.840.114 [id number] Univers 00:00:00 00:00:00 Eric Hammond AUTOMOBILE SERVICE WRITER 350.1.13.10 it y of REGIONAL 4.2.7.2.686 [place] as MATERNAL [phone] [address] 2021-02-18 2021-02-18 Outpatient R [facility] [id number] Univers 10:00:00 10:00:00 ity [facility] 2021-02-18 2021-02-18 Telephone Hortencia [facility] 1.2.840.114 [id number] Univers 00:00:00 00:00:00 [facility] AUTOMOBILE SERVICE WRITER 350.1.13.10 ity of [facility] REGIONAL 4.2.7.2.686 Marty as MATERNAL [id number] [facility] & CHILD [address] [place] [address] 2021-02-15 2021-02-15 Telemedici Makayla Lechuga [facility] 1.2.8 40.114 [id number] Univers 12:53:36 12:53:48 ne Visit Maico Saini AUTOMOBILE SERVICE WRITER 350.1.13.10 ity of REGIONAL 4.2.7.2.686 Marty as MATERNAL [id number] [facility] & CHILD [address] [place] [address] 2021-02-15 2021-02-15 Outpatient P [facility] [id number] Univers 09:45:00 09:45:00 ity [facility] 2021-02-12 2021-02-12 Routine [facility] [id number] [id number] Univers 13:33:25 14:47:59 Eric N AUTOMOBILE SERVICE WRITER 350.1.13.10 i ty of Visit REGIONAL 4.2.7.2.686 Marty as MATERNAL [phone] [address] 2021-02-12 2021-02-12 Outpatient R [facility] [id number] Univers 14:00:00 14:00:00 ERIC ity of [facility] 2021-02-08 2021-02-08 Telephone [facility] 1.2.840.114 [id number] Univers 00:00:00 00:00:00 Eric Hammond AUTOMOBILE SERVICE WRITER 350.1.13.10 it y of [facility] 4.2.7.2.686 Marty as MATERNAL [id number] [address] 2021-02-08 2021-02-08 Nurse ADRIÁN Seaman 1.2.840.114 [id number] Univers 00:00:00 00:00:00 Triage Chuy AVALOS 350.1.13.10 ity of [facility] 4.2.7.2.686 Marty as [id number] [address] 2021-02-05 2021-02-05 Outpatient R [facility] [id number] Univers 12:45:00 12:45:00 ity [facility] 2021-02-01 2021-02-01 [facility] 1.2.840.114 [id number] Univers 00:00:00 00:00:00 Tab Guerrero AUTOMOBILE SERVICE WRITER 350.1.13.10 ity of [facility] 4.2.7.2.686 Marty as MATERNAL [phone] [facility] & CHILD [address] [place] [address] 2021-01-31 2021-01-31 Braiding Operator 1, [facility] Us Room UNIVERSIT 1 .2.840.114 [id number] Univers 15:10:46 16:18:12 Visit Leona Ambriz 350.1 .13.[address] [facility] 4.2.7.2.686 [place] [phone] [facility] [address] 2021-01-31 2021-01-31 Outpatient P [facility] [id number] Univers 15:30:00 15:30:00 ity [facility] 2021-01-29 2021-01-29 Emergency Jamila Zaldivar [facility] 1.2.840.114 [id number] Univers 22:06:00 23:25:00 [place] 350.1.13.10 i ty of [place].7.2.686 [place] [phone] [facility] 083 [place] 2021-01-29 2021-01-29 [facility] 1.2.874.631 [id number] Univers 13:29:22 14:23:00 Eric Hammond AUTOMOBILE SERVICE WRITER 350.1.13.10 i ty of Visit [facility] 4.2.7.2.686 [place] as MATERNAL [phone] Med ical & CHILD [address] [place] [address] 2021-01-29 2021-01-29 Outpatient R EMILI [facility] [id number] Univers 13:45:00 13:45:00 ERIC anglin of [facility] 2021-01-29 2021-01-29 Telephone Emili [facility] 1.2.840.114 [id number] Univers 00:00:00 00:00:00 Eric Hammond AUTOMOBILE SERVICE WRITER 350.1.13.10 it y of [facility] 4.2.7.2.686 [place] as MATERNAL [phone] [facility] & CHILD [address] [place] [address] 2021-01-29 2021-01-29 Nurse ADRIÁN Quezada 1.2.840.114 [id number] Univers 00:00:00 00:00:00 Triage Ellie Ponce BAILEY 350.1.13.10 ity of [facility] 4.2.7.2.686 Marty as [phone] [facility] 019 [place] 2021-01-29 2021-01-29 Orders Doctor SAMPSON 1.2.840.114 [id number] Univers 00:00:00 00:00:00 Only Unassigned, BAILEY 350.1.13.10 ity of [place] [facility] 4.2.7.2.686 Marty as [phone] [address] 2021-01-21 2021-01-21 Outpatient R [facility] [id number] Univers 11:00:00 11:00:00 ity [facility] 2021-01-21 2021-01-21 Telemedici Faculty, [facility] 1.2.840.114 [id number] Univers 09:02:46 09:17:46 ne Visit Julian Elena AUTOMOBILE SERVICE WRITER 350.1.13. 10 ity of REGIONAL 4.2.7.2.686 [place] as MATERNAL [phone] [facility] ical & CHILD [address] [place] [address] 2021-01-18 2021-01-18 Telephone Emili [facility] 1.2.840.114 [id number] Univers 00:00:00 00:00:00 Eric Hammond AUTOMOBILE SERVICE WRITER 350.1.13.10 it y of REGIONAL 4.2.7.2.686 [place] as MATERNAL [phone] [facility] & CHILD [address] [place] [address] 2021-01-15 2021-01-15 [facility] [id number] Univers 10:00:00 10:00:00 ERIC anglin [facility] 2021-01-15 2021-01-15 Tele[facility] 1.2.840.114 [id number] Univers 00:00:00 00:00:00 Eric Hammond AUTOMOBILE SERVICE WRITER 350.1.13.10 it y of REGIONAL 4.2.7.2.686 [place] as MATERNAL [phone] [facility] & CHILD [address] [place] [address] 2021-01-08 2021-01-08 Nurse Visit, Ruperto Nurse [facility] 1.2 .840.114 [id number] Univers 10:03:31 10:18:41 Visit Eric Mock AUTOMOBILE SERVICE WRITER 350.1.13.10 ity of REGIONAL 4.2.7.2.686 [place] as MATERNAL [phone] [facility] & CHILD [address] [place] [address] 2021-01-08 2021-01-08 Outpatient R [facility] [id number] Univers 10:00:00 10:00:00 ity [facility] 2021-01-03 2021-01-03 Braiding Operator Lab, InocencioRmchp [facility] 1.2.840. 114 [id number] Univers 08:59:03 10:31:23 Visit Eric Mock AUTOMOBILE SERVICE WRITER 350.1.13.10 ity of REGIONAL 4.2.7.2.686 [place] as MATERNAL [phone] [facility] & CHILD [address] [place] [address] 2021-01-03 2021-01-03 Outpatient R [facility] [id number] Univers 08:30:00 08:30:00 ity [facility] 2021-01-02 2021-01-02 Outpatient R [facility] [id number] Univers 10:30:00 10:30:00 ity [facility] 2021-01-01 2021-01-01 Outpatient R EMILI [facility] [id number] Univers 12:45:00 12:45:00 ERIC anglin [facility] 2021-01-01 2021-01-01 Routine Emili [facility] 1.2.563.832 [id number] Univers 08:34:05 09:19:16 Eric Hammond AUTOMOBILE SERVICE WRITER 350.1.13.10 i ty of Visit [facility] 4.2.7.2.686 Marty as MATERNAL [phone] [address] 2021-01-01 2021-01-01 Outpatient R EMILI [facility] [id number] Univers 08:45:00 08:45:00 ERIC anglin [facility] 2020-12-26 2020-12-26 Nurse Visit, [facility] Nurse [facility] 1.2 .840.114 [id number] Univers 09:32:52 10:04:57 Visit Eric Mock AUTOMOBILE SERVICE WRITER 350.1.13.10 ity of REGIONAL 4.2.7.2.686 [place] as MATERNAL [phone] [facility] & [address] 2020-12-26 2020-12-26 Outpatient R [facility] [id number] Univers 09:30:00 09:30:00 ity [facility] 2020-12-24 2020-12-24 Outpatient R [facility] [id number] Univers 15:00:00 15:00:00 ity of [facility] 2020-12-24 2020-12-24 Telemedici Faculty, [facility] 1.2.840.114 [id number] Univers 08:59:50 09:14:50 ne Visit Kandi Reid AUTOMOBILE SERVICE WRITER 350.1.13.10 ity of [facility] 4.2.7.2.686 Marty as MATERNAL [phone] [facility] & CHILD [address] [place] [address] 2020-12-21 2020-12-21 Outpatient P MAICO SAINI [facility] [id number] Univers 11:15:00 11:15:00 ity of [facility] 2020-12-21 2020-12-21 Telephone Emili [facility] 1.2.840.114 [id number] Univers 00:00:00 00:00:00 Eric Hammond AUTOMOBILE SERVICE WRITER 350.1.13.10 it y of [facility] 4.2.7.2.686 [place] as MATERNAL [phone] [address] 2020-12-19 2020-12-19 Nurse Visit, Ruperto Nurse [facility] 1.2 .840.114 [id number] Univers 09:52:56 10:23:27 Visit Eric Mock AUTOMOBILE SERVICE WRITER 350.1.13.10 ity of [place] [id number] Marty as MATERNAL [phone] [facility] & [address] 2020-12-19 2020-12-19 Outpatient R [facility] [id number] Univers 09:30:00 09:30:00 ity of [facility] 2020-12-18 2020-12-18 Orders Doctor SAMPSON 1.2.840.114 [id number] Univers 00:00:00 00:00:00 Only Unassigned, BAILEY 350.1.13.10 ity of [place] [address]686 Marty as [phone] [address] 2020-12-15 2020-12-15 Nurse ADRIÁN Quezada 1.2.840.114 [id number] Univers 00:00:00 00:00:00 Triage Ellie AVALOS 350.1.13.10 ity [facility] 4.2.7.2.686 Marty as [phone] [address] 2020-12-12 2020-12-12 Nurse Visit, Ruperto Nurse [facility] 1.2 .840.114 [id number] Univers 10:18:52 10:44:10 Visit Eric Mock AUTOMOBILE SERVICE WRITER 350.1.13.10 ity of [facility] 4.2.7.2.686 Marty as MATERNAL [phone] [facility] & CHILD [address] [place] [address] 2020-12-12 2020-12-12 Outpatient R [facility] [id number] Univers 10:00:00 10:00:00 ity [facility] 2020-12-12 2020-12-12 Braiding Operator Ultrasound, [facility] 1.2 .840.114 [id number] Univers 09:28:22 09:58:22 Visit Kathryn Fry AUTOMOBILE SERVICE WRITER 350.1.13.10 [facility] 4.2.7.2.686 [place] Tammy Ortiz MATERNAL [phone] [facility] & CHILD [address] [place] [address] 2020-12-10 2020-12-10 Outpatient R CANDICE [facility] [id number] Univers 08:30:00 08:30:00 ROBERT [facility] 2020-12-05 2020-12-05 Routine Emili [facility] 1.2.212.624 [id number] Univers 08:24:48 09:04:09 Eric Hammond AUTOMOBILE SERVICE WRITER 350.1.13.10 i ty of Visit [facility] 4.2.7.2.686 Marty as MATERNAL [phone] [address] 2020-12-05 2020-12-05 Outpatient R EMILI [facility] [id number] Univers 08:30:00 08:30:00 [facility] 2020-12-05 2020-12-05 Braiding Operator Ultrasound, [facility] 1.2 .840.114 [id number] Univers 07:59:46 08:24:35 Visit Kathryn Fry AUTOMOBILE SERVICE WRITER 350.1.13.10 ity of [place] Whitten REGIONAL 4.2.7.2.686 [place] Severo Mcclellan MATERNAL [phone] Medical & CHILD [address] [place] [address] 2020-12-03 2020-12-03 Telephone Emili ILANTONELLA 1.2.840.114 [id number] Univers 00:00:00 00:00:00 Eric Hammond AUTOMOBILE SERVICE WRITER 350.1.13.10 it y of REGIONAL 4.2.7.2.686 Marty as MATERNAL [phone] [facility] ical & CHILD [address] [place] [address] 2020-11-29 2020-11-29 Outpatient R EMILI [facility] [id number] Univers 08:45:00 08:45:00 ERIC anglin [facility] 2020-11-28 2020-11-28 Nurse Visit, Ruperto Nurse [facility] 1.2 .840.114 [id number] Univers 09:01:14 09:28:22 Visit Eric Mock AUTOMOBILE SERVICE WRITER 350.1.13.10 ity of [facility] 4.2.7.2.686 Marty as MATERNAL [phone] [facility] & CHILD [address] [place] [address] 2020-11-28 2020-11-28 Outpatient R EMILI [facility] [id number] Univers 08:30:00 08:30:00 ERIC anglin [facility] 2020-11-22 2020-11-22 Braiding Operator Ultrasound, [facility] 1.2 .840.114 [id number] Univers 08:53:19 10:08:19 Visit Emmanuel Lepe AUTOMOBILE SERVICE WRITER 350.1.13.10 ity of [facility] 4.2.7.2.686 Marty as MATERNAL [phone] [facility] & CHILD [address] [place] [address] 2020-11-22 2020-11-22 Outpatient P [facility] [id number] Univers 08:45:00 08:45:00 ity [facility] 2020-11-21 2020-11-21 Nurse Visit, Ruperto Nurse [facility] 1.2 .840.114 [id number] Univers 08:53:59 09:10:18 Visit Eric Mock AUTOMOBILE SERVICE WRITER 350.1.13.10 ity of REGIONAL 4.2.7.2.686 [place] as MATERNAL [phone] Med ical & CHILD [address] [place] [address] 2020-11-21 2020-11-21 Outpatient R EMILI [facility] [id number] Univers 08:30:00 08:30:00 ERIC ity [facility] 2020-11-14 2020-11-14 Braiding Operator Ultrasound, [facility] 1.2 .840.114 [id number] Univers 08:56:46 09:26:46 Visit Kathryn Fry AUTOMOBILE SERVICE WRITER 350.1.13.10 ity of [place] Whitten [facility] 4.2.7.2.686 [place] MATERNAL [phone] [facility] & CHILD [address] [place] [address] 2020-11-14 2020-11-14 Routine [facility] 1.2.840.114 [id number] Univers 08:23:13 08:38:13 Kathryn Miranda AUTOMOBILE SERVICE WRITER 350.1.13.10 ity of Visit REGIONAL 4.2.7.2.686 Marty as MATERNAL [phone] [facility] & CHILD [address] [place] [address] 2020-11-14 2020-11-14 Outpatient R [facility] [id number] Univers 08:30:00 08:30:00 ity of [facility] 2020-11-13 2020-11-13 Outpatient R [facility] [id number] Univers 17:20:00 17:20:00 ity of [facility] 2020-11-13 2020-11-13 Telephone [facility] 1.2.840.114 [id number] Univers 00:00:00 00:00:00 Eric Hammond AUTOMOBILE SERVICE WRITER 350.1.13.10 it y of REGIONAL 4.2.7.2.686 [place] as MATERNAL [phone] [facility] & CHILD [address] [place] [address] 2020-11-07 2020-11-07 Routine [facility] 1.2.796.781 [id number] Univers 10:03:48 10:53:52 Eric Hammond AUTOMOBILE SERVICE WRITER 350.1.13.10 i ty of Visit REGIONAL 4.2.7.2.686 Marty as MATERNAL [phone] Med ical & CHILD [address] [place] [address] 2020-11-07 2020-11-07 Routine [facility] 1.2.801.656 [id number] 10:03:48 10:53:52 Eric N AUTOMOBILE SERVICE WRITER 350.1.13.10 Visit REGIONAL 4.2.7.2.686 MATERNAL [phone] & CHILD [address] [place] [address] 2020-11-07 2020-11-07 [facility]patient [facility] [id number] Univers 09:15:00 09:15:00 ERIC anglin [facility] 2020-11-06 2020-11-06 Outpatient [facility] [id number] Univers 14:15:00 14:15:00 ERIC anglin [facility] 2020-11-05 2020-11-05 Telephone [facility] 1.2.840.114 [id number] Univers 00:00:00 00:00:00 Eric N AUTOMOBILE SERVICE WRITER 350.1.13.10 it y of REGIONAL 4.2.7.2.686 Marty as MATERNAL [phone] [facility] ical & CHILD [address] [place] [address] 2020-10-31 2020-10-31 Telephone [facility] 1.2.840.114 [id number] Univers 00:00:00 00:00:00 Eric N AUTOMOBILE SERVICE WRITER 350.1.13.10 it y of REGIONAL 4.2.7.2.686 Marty as MATERNAL [phone] [facility] ical & CHILD [address] [place] [address] 2020-10-31 2020-10-31 Telephone [facility] 1.2.840.114 [id number] Univers 00:00:00 00:00:00 Eric N AUTOMOBILE SERVICE WRITER 350.1.13.10 it y of REGIONAL 4.2.7.2.686 [place] as MATERNAL [phone] Med ical & CHILD [address] [place] [address] 2020-10-30 2020-10-30 Telephone [facility] 1.2.840.114 [id number] Univers 00:00:00 00:00:00 Eric N AUTOMOBILE SERVICE WRITER 350.1.13.10 it y of [facility] 4.2.7.2.686 Marty as MATERNAL [phone] Med ical & CHILD 107 [facility] 2020-10-29 2020-10-29 Emergency Cynthia [facility] 1.2.639.072 [id number] Univers 15:24:00 18:12:00 Maldonado Jacobo [place] 350.1.13.10 ity of [place] 4.2.7.2.686 [place] [facility] [phone] [facility] 084 [place] 2020-10-29 2020-10-29 Outpatient R [facility] [id number] Univers 09:30:00 09:30:00 ity of [facility] 2020-10-29 2020-10-29 Telemedici Faculty, Poncho [facility] 1.2.840.114 [id number] Univers 08:09:37 08:24:37 ne Visit Brandon Whitten AUTOMOBILE SERVICE WRITER 350.1.13.10 ity of [facility] 4.2.7.2.686 Marty as MATERNAL [phone] Med ical & CHILD [address] [place] [address] 2020-10-29 2020-10-29 Telephone [facility] 1.2.840.114 [id number] Univers 00:00:00 00:00:00 Eric Hammond AUTOMOBILE SERVICE WRITER 350.1.13.10 it y of [facility] 4.2.7.2.686 Marty as MATERNAL [phone] [facility] & CHILD [address] [place] [address] 2020-10-29 2020-10-29 Orders Doctor ADRIÁN 1.2.840.114 [id number] Univers 00:00:00 00:00:00 Only Unassigned, BAILEY 350.1.13.10 ity of [place] [facility] 4.2.7.2.686 Marty as [phone] [facility] 009 [place] 2020-10-28 2020-10-28 Telephone Ana [facility] 1.2.629.718 [id number] Univers 00:00:00 00:00:00 Rhonda Howe AUTOMOBILE SERVICE WRITER 350.1.13.10 ity of [facility] 4.2.7.2.686 Marty as MATERNAL [phone] Med ical & [facility] 107 [facility] 2020-10-26 2020-10-26 Telephone [facility] 1.2.840.114 [id number] Univers 00:00:00 00:00:00 Eric N AUTOMOBILE SERVICE WRITER 350.1.13.10 it y of REGIONAL 4.2.7.2.686 [place] as MATERNAL [phone] [facility] & CHILD [address] [place] [address] 2020-10-24 2020-10-24 Telephone [facility] 1.2.840.114 [id number] Univers 00:00:00 00:00:00 Eric N AUTOMOBILE SERVICE WRITER 350.1.13.10 it y of REGIONAL 4.2.7.2.686 [place] as MATERNAL [phone] [facility] & CHILD [address] [place] [address] 2020-10-22 2020-10-22 Telephone [facility] 1.2.033.524 [id number] Univers 00:00:00 00:00:00 Rhonda Howe AUTOMOBILE SERVICE WRITER 350.1.13.10 ity of REGIONAL 4.2.7.2.686 [place] as MATERNAL [phone] [facility] & CHILD [address] [place] [address] 2020-10-04 2020-10-04 Routine Risk, Ppq-Gncul-Sc/High [facility] 1. 2.840.114 [id number] Univers 14:35:18 15:12:11 Rhonda Perez AUTOMOBILE SERVICE WRITER 350.1.13.10 ity of Visit REGIONAL 4.2.7.2.686 [place] as MATERNAL [phone] [facility] & CHILD [address] [place] [address] 2020-10-04 2020-10-04 Outpatient R [facility] [id number] Univers 14:30:00 14:30:00 ity of [facility] 2020-10-04 2020-10-04 Telephone [facility] 1.2.840.114 [id number] Univers 00:00:00 00:00:00 Eric N AUTOMOBILE SERVICE WRITER 350.1.13.10 it y of REGIONAL 4.2.7.2.686 Marty as MATERNAL [phone] [facility] & CHILD [address] [place] [address] 2020-10-03 2020-10-03 Telephone Emili [facility] 1.2.840.114 [id number] Univers 00:00:00 00:00:00 Eric Hammond AUTOMOBILE SERVICE WRITER 350.1.13.10 it y of REGIONAL 4.2.7.2.686 [place] as MATERNAL [phone] Med ical & CHILD [address] [place] [address] 2020-10-01 2020-10-01 Telephone [facility] 1.2.840.114 [id number] Univers 00:00:00 00:00:00 Eric Hammond AUTOMOBILE SERVICE WRITER 350.1.13.10 it y of REGIONAL 4.2.7.2.686 [place] as MATERNAL [phone] Med ical & CHILD [address] [place] [address] 2020-09-25 2020-09-25 Orders Doctor ADRIÁN 1.2.840.114 [id number] Univers 00:00:00 00:00:00 Only Unassigned, BAILEY 350.1.13.10 ity of [place] [facility] 4.2.7.2.686 Marty as [phone] [address] 2020-09-13 2020-09-13 Routine Risk, Mmg-Snqoa-Vt/High [facility] 1. 2.840.114 [id number] Univers 15:33:54 16:21:30 Onelia Price AUTOMOBILE SERVICE WRITER 350.1.13.10 ity of Visit REGIONAL 4.2.7.2.686 [place] as MATERNAL [phone] [facility] & CHILD [address] [place] [address] 2020-09-13 2020-09-13 Outpatient R [facility] [id number] Univers 15:30:00 15:30:00 ity [facility] 2020-09-06 2020-09-06 Outpatient R [facility] [id number] Univers 15:00:00 15:00:00 ity [facility] 2020-09-03 2020-09-03 Telephone [facility] 1.2.840.114 [id number] Univers 00:00:00 00:00:00 Eric Hammond AUTOMOBILE SERVICE WRITER 350.1.13.10 it y of REGIONAL 4.2.7.2.686 [place] as MATERNAL [phone] Med ical & CHILD 107 [facility] 2020-08-31 2020-08-31 Braiding Operator Ultrasound, Margie [facility] 1.2 .840.114 [id number] Univers 15:11:17 15:41:17 Visit Leona Ambriz AUTOMOBILE SERVICE WRITER 350.1. 13.10 ity of REGIONAL 4.2.7.2.686 [place] as MATERNAL [phone] Med ical & CHILD 369 [facility] 2020-08-31 2020-08-31 Outpatient P [facility] [id number] Univers 15:00:00 15:00:00 ity of [facility] 2020-08-31 2020-08-31 Abstract Emili [facility] 1.2.840.114 [id number] Univers 00:00:00 00:00:00 Eric N AUTOMOBILE SERVICE WRITER 350.1.13.10 it y of REGIONAL 4.2.7.2.686 [place] as MATERNAL [phone] [facility] ical & CHILD [address] [place] [address] 2020-08-31 2020-08-31 Telephone Emili [facility] 1.2.840.114 [id number] Univers 00:00:00 00:00:00 Eric Hammond AUTOMOBILE SERVICE WRITER 350.1.13.10 it y of REGIONAL 4.2.7.2.686 [place] as MATERNAL [phone] [facility] ical & CHILD [address] [place] [address] 2020-08-29 2020-08-29 Telephone Emili [facility] 1.2.840.114 [id number] Univers 00:00:00 00:00:00 Eric Hammond AUTOMOBILE SERVICE WRITER 350.1.13.10 it y of REGIONAL 4.2.7.2.686 [place] as MATERNAL [phone] [facility] ical & CHILD [address] [place] [address] 2020-08-27 2020-08-27 Telephone Emili [facility] 1.2.840.114 [id number] Univers 00:00:00 00:00:00 Eric Hammond AUTOMOBILE SERVICE WRITER 350.1.13.10 it y of REGIONAL 4.2.7.2.686 Marty as MATERNAL [phone] [facility] ical & CHILD [address] [place] [address] 2020-08-22 2020-08-22 Telephone Emili [facility] 1.2.840.114 [id number] Univers 00:00:00 00:00:00 Eric Hammond AUTOMOBILE SERVICE WRITER 350.1.13.10 it y of REGIONAL 4.2.7.2.686 Marty as MATERNAL [phone] [facility] ical & CHILD [address] [place] [address] 2020-08-21 2020-08-21 Initial [facility] 1.2.594.524 [id number] Univers 14:51:44 16:19:05 Eric Barrett AUTOMOBILE SERVICE WRITER 350.1.13.10 i ty of Visit REGIONAL 4.2.7.2.686 [place] as MATERNAL [phone] [facility] & CHILD [address] [place] [address] 2020-08-21 2020-08-21 [facility] [id number] Univers 14:00:00 14:00:00 ERIC anglin of [facility] 2020-08-21 2020-08-21 Orders Doctor ADRIÁN 1.2.840.114 [id number] Univers 00:00:00 00:00:00 Only Unassigned, BAILEY 350.1.13.10 ity of [place] [facility] 4.2.7.2.686 Marty as [phone] [address] 2020-08-14 2020-08-14 Outpatient R [facility] [id number] Univers 09:15:00 09:15:00 ity of [facility] 2019-10-28 2019-10-28 Outpatient Raju_P [facility] [id number] [place] 02:06:00 02:06:00 0[facility] 2019-03-02 2019-03-02 Orders Doctor ADRIÁN 1.2.840.114 [id number] Univers 00:00:00 00:00:00 Only UnassignedBAILEY 350.1.13.10 ity of [place] [facility] 4.2.7.2.686 Marty as [phone] [address] Results Test Description Test Time Test Comments Results Result Comments Source POCT URINALYSIS W/O SPECIFIC GRAVITY 2022-05-02 21:58:00 Test Item Value Reference Range Interpretation Comme nts POCT PH U (test code = 3254) na 5-8 POCT U LEUK EST (test code = 3263) na Negative - Negative POCT U NIT (test code = 3262) na Negative - Negative POCT U PROT (test code = 3259) neg Negative - Negative POCT U GLU (test code = 3256) neg Negative - Negative POCT U KETONE (test code = 3258) na Negative - Negative POCT U BLD (test code = 3257) na Negative - Negative [facility] SPECIFIC [id number] 21:58:00 Test Item Value Reference Range Interpretation Comments POCT PH U (test code = 3254) na 5-8 POCT U LEUK EST (test code = 3263) na Negative - Negative POCT U NIT (test code = 3262) na Negative - Negative POCT U PROT (test code = 3259) neg Negative - Negative POCT U GLU (test code = 3256) neg Negative - Negative POCT U KETONE (test code = 3258) na Negative - Negative POCT U BLD (test code = 3257) na Negative - Negative [facility] W/O SPECIFIC [id number] 21:58:00 Test Item Value Reference Range Interpretation Comments POCT PH U (test code = 3254) na 5-8 POCT U LEUK EST (test code = 3263) na Negative - Negative POCT U NIT (test code = 3262) na Negative - Negative POCT U PROT (test code = 3259) neg Negative - Negative POCT U GLU (test code = 3256) neg Negative - Negative POCT U KETONE (test code = 3258) na Negative - Negative POCT U BLD (test code = 3257) na Negative - Negative [facility] [id number] 22:00:08 Test Item Value Reference Range Interpretation Comments APPEARANCE (test code = Clear Clear [id number]) COLOR (test code = Yellow Colorless A [id number]) PH (test code = 4.8-8.0 1668572471) SP GRAVITY (test code = 1.003-1.035 0282171838) GLU U QUAL (test code = Negative Negative 8233631558) BLOOD (test code = Negative Negative 7720404653) KETONES (test code = Negative Negative 6366123118) PROTEIN (test code = Negative Negative 2887-8) UROBILIN (test code = Normal Normal 2026346680) BILIRUBIN (test code = Negative Negative 6588723919) NITRITE (test code = Negative Negative 0603741110) LEUK VALENTINE (test code = Negative Negative 5946325981) RBC/HPF (test code = See_Comment [Autom ated message] [id number]) The system [employer] generated this result transmitted ref erence range: 0 - 3 HP F. The reference range was not used to int erpret this result as normal/abnormal . WBC/HPF (test code = See_Comment [Autom ated message] [id number]) The system [employer] generated this result transmitted ref erence range: 0 - 5 HP F. The reference range was not used to int erpret this result as normal/abnormal . BACTERIA (test code = Few Negative A 1217473342) MUCOUS (test code = Slight Negative LPF A [id number]) SQ EPITH (test code = HPF 1577912831) Lab Interpretation (test Abnormal code = 09217-8) [facility] OR [facility] ONLY - WET [id number] 21:45:14 Test Item Value Reference Range Interpretation Comments CLUE CELLS WET PREP (test code = Moderate None Seen HPF A 6645904741) BACTERIA WET PREP (test code = Few None Seen HPF A 0793288787) WBC WET PREP (test code = Few None Seen HPF A 6621139126) RBC WET PREP (test code = None Seen None Seen HPF 8131084671) TRICHOMONAS WET PREP (test code = None Seen None Seen HPF 7096813622) YEAST WET PREP (test code = Few None Seen HPF A 4675297630) Lab Interpretation (test code = Abnormal 88022-9) [facility] URINALYSIS W/O SPECIFIC [id number] 14:51:00 Test Item Value Reference Range Interpretation Comments [...] code = 3257) n/a Negative - Negative [facility]
[2022-05-17] MEDS ORDERED: ACETAMINOPHEN 500 MG TAB ONE (11:47)
--- NOTE | 2022-05-17 12:06 | RAD REPORT ---
EXAM DESCRIPTION: US - Extremity Nonvascular Limited - 05/17/2022 11:55 am CLINICAL HISTORY: Left arm pain COMPARISON: None FINDINGS: Sonographic evaluation of the left upper arm does not demonstrate hematoma/abscess. No mass visualized IMPRESSION: No significant abnormality is displayed
--- NOTE | 2022-05-17 13:22 | ER ---
Nurse's Notes [facility] Name: Deborah Torres Age: 26 yrs Sex: Female : 1995 Arrival Date: 05/17/2022 Time: 10:53 Bed 19 Private MD: Diagnosis: Left shoulder/deltoid pain, Presentation: 05/17 11:12 Chief complaint: Patient states: Weekly Strawberry shots to left arm for labor jl7 prevention, got the injection yesterday and immediately had swelling and pain at the site, symptoms have gotten worse as time has passed, pain, swelling, tingling down the whole arm, inability to lift my left arm. Coronavirus screen: Vaccine status: Patient reports being unvaccinated. At this time, the client does not indicate any symptoms associated with coronavirus-19. Ebola Screen: No symptoms or risks identified at this time. Initial Sepsis Screen: Does the patient meet any 2 criteria? No. Patient's initial sepsis screen is negative. Does the patient have a suspected source of infection? No. Patient's initial sepsis screen is negative. Risk Assessment: Do you want to hurt yourself or someone else? Patient reports no desire to harm self or others. Onset of symptoms was May 16, 2022. 11:12 Method Of Arrival: Ambulatory [facility] 11:12 Acuity: NORM 3 jl7 Triage Assessment: 11:18 General: Appears in no apparent distress. uncomfortable, Behavior is calm, cooperative, jl7 appropriate for age. Pain: Complains of pain in left arm. 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 - Social history:: Smoking status: Patient reports the use of cigarette tobacco products. Screenin:36 Abuse screen:. Nutritional screening: No deficits noted. Tuberculosis screening: No mb8 symptoms or risk factors identified. Fall Risk None identified. Assessment: 11:34 Pain: Complains of pain in left arm Pain radiates to left hand Pain currently is 10 out mb8 of 10 on a pain scale. Quality of pain is described as tingling, Pain began 1 day ago. Cardiovascular: Denies chest pain, diaphoresis, lightheadedness, palpitations, shortness of breath, Capillary refill < 3 seconds Patient's skin is warm and dry. Pulses are 3+ in right radial artery and left radial artery Chest pain is denied. Respiratory: Breath sounds are clear bilaterally. Denies shortness of breath labored breathing. Derm: Rash noted that is red, raised, hot. 13:10 Reassessment: Patient and/or family updated on plan of care and expected duration. Pain mb8 level reassessed. Patient is alert, oriented x 3, equal unlabored respirations, skin warm/dry/pink. General: Patient wants to leave AMA. Dr. Moya aware and will come speak with patient. I updated patient on US results. . Vital Signs: 11:12 BP 133 / 86; Pulse 92; Resp 17; Temp 98.2; Pulse Ox 99% ; Weight 90.26 kg; Height 5 ft. jl7 4 in. (162.56 cm); Pain 10/10; 11:12 Body Mass Index 34.16 (90.26 kg, 162.56 cm) jl7 ED Course: 10:53 Patient arrived in ED. as 11:18 Triage completed. jl7 11:18 Arm band placed on right wrist. jl7 11:22 Aydin Argueta, ELÍAS is Primary Nurse. mb8 11:25 Rod Moya MD is Attending Physician. kdr 11:36 Patient has correct armband on for positive identification. Placed in gown. Bed in low mb8 position. Call light in reach. Side rails up X2. Client placed on continuous cardiac and pulse oximetry monitoring. NIBP monitoring applied. concession manager on. 11:36 No provider procedures requiring assistance completed. mb8 11:57 US Extrmty Nonvasular Limited In Process Unspecified. EDMS 13:37 Patient did not have IV access during this emergency room visit. mb8 Administered Medications: 11:49 Drug: Tylenol 1000 mg Route: PO; mb8 12:26 Follow up: Response: No adverse reaction mb8 Medication: 11:36 VIS not applicable for this client. mb8 Outcome: 13:22 Discharge ordered by . kdr 13:37 Discharged to home ambulatory. mb8 13:37 Condition: stable 13:37 Discharge instructions given to patient, Instructed on discharge instructions, follow up and referral plans. no drinking with medication, no driving heavy equipment, medication usage, Demonstrated understanding of instructions, follow-up care, medications, Prescriptions given X 1. 13:37 Patient left the ED. mb8 Signatures: Dispatcher [employer] EDMS Rod Moya MD MD kdr Martinez, Amelia as Leal, Jahala RN RN jl7 Aydin Argueta RN RN mb8
--- NOTE | 2022-05-17 13:22 | EDPHYS ---
Physician Documentation [facility] Name: Deborah Torres Age: 26 yrs Sex: Female : 1995 Arrival Date: 05/17/2022 Time: 10:53 Bed 19 Private MD: ED Physician Rod Moya HPI: 05/17 17:40 This 26 yrs old Female presents to ER via Ambulatory with complaints of Numbness Of Arm.kdr 17:40 Patient presents to the ED after taking another one of her weekly Suh shots to the kdr left arm for labor prevention. She had received injection yesterday at immediately had swelling and pain at the site. Her symptoms have gotten worse over time and include swelling, tingling down the whole arm, inability to lift or move the left arm.. Onset: The symptoms/episode began/occurred yesterday. Severity of symptoms: At their worst the symptoms were moderate severe incapacitating just prior to arrival, in the emergency department the symptoms are unchanged. The patient has not experienced similar symptoms in the past. The patient has not recently seen a physician. 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 - Social history:: Smoking status: Patient reports the use of cigarette tobacco products. ROS: 17:40 Constitutional: Negative for fever, chills, and weight loss, Eyes: Negative for injury, kdr pain, redness, and discharge, Neck: Negative for injury, pain, and swelling, Cardiovascular: Negative for chest pain, palpitations, and edema, Respiratory: Negative for shortness of breath, cough, wheezing, and pleuritic chest pain, Abdomen/GI: Negative for abdominal pain, nausea, vomiting, diarrhea, and constipation, Back: Negative for injury and pain, : Negative for injury, bleeding, discharge, and swelling, Neuro: Negative for headache, weakness, numbness, tingling, and seizure activity. Psych: Negative for depression, anxiety, suicide ideation, homicidal ideation, and hallucinations, Allergy/Immunology: Negative for hives, rash, and allergies, Endocrine: Negative for neck swelling, polydipsia, polyuria, polyphagia, and marked weight changes, Hematologic/Lymphatic: Negative for swollen nodes, abnormal bleeding, and unusual bruising. 17:40 Skin: Positive for Paresthesias and tingling in the left arm distal to the injection site. Exam: 17:40 Constitutional: This is a well developed, well nourished patient who is awake, alert, kdr and in no acute distress. Head/Face: Normocephalic, atraumatic. 17:40 Musculoskeletal/extremity: Extremities: grossly normal except: noted in the anterior aspect of left shoulder: pain, swelling, tenderness. Vital Signs: 11:12 BP 133 / 86; Pulse 92; Resp 17; Temp 98.2; Pulse Ox 99% ; Weight 90.26 kg; Height 5 ft. jl7 4 in. (162.56 cm); Pain 10/10; 11:12 Body Mass Index 34.16 (90.26 kg, 162.56 cm) jl7 MDM: 13:22 Patient medically screened. kdr 17:40 Data reviewed: vital signs, nurses notes, lab test result(s), radiologic studies. kdr Counseling: I had a detailed discussion with the patient and/or guardian regarding: the historical points, exam findings, and any diagnostic results supporting the discharge/admit diagnosis, lab results, radiology results, the need for outpatient follow up. 05/17 11:25 Order name: US Sharla Taylor Limited; Complete Time: 12:41 jl7 Administered Medications: 11:49 Drug: Tylenol 1000 mg Route: PO; mb8 12:26 Follow up: Response: No adverse reaction mb8 Disposition Summary: 05/17/22 13:22 Discharge Ordered Location: Home kdr Problem: an ongoing problem kdr Symptoms: are unchanged kdr Condition: Stable kdr Diagnosis - Left shoulder/deltoid pain, kdr Followup: kdr - With: Private Physician - When: 2 - 3 days - Reason: If symptoms return, Further diagnostic work-up, Recheck today's complaints, Continuance of care, Re-evaluation by your physician Discharge Instructions: - Discharge Summary Sheet kdr Forms: - Medication Reconciliation Form kdr - Thank You Letter kdr - Prescription Opioid Use kdr Prescriptions: - Tramadol 50 mg Oral Tablet - take 1 tablet by ORAL route every 8 hours as needed for pain in the evening; 12 kdr tablet; Refills: 0, Product Selection Permitted Signatures: Dispatcher [employer] Rod Fermin MD MD kdr Leal, Jahala RN RN jl7 Aydin Argueta RN RN mb8
[2022-05-17 14:21] VITALS: BP 133/86; TEMP 98.2; O2SAT 99
== END 2022-05-17 13:37 | disposition home or self-care (01) ==
LOC: ER 10:52
DX: M25.512 Pain in left shoulder (principal); Z88.0 Allergy status to penicillin; Z88.6 Allergy status to analgesic agent; I10 Essential (primary) hypertension; F32.A Depression, unspecified; F31.9 Bipolar disorder, unspecified; G43.909 Migraine, unspecified, not intractable, without status migrainosus
CPT/HCPCS: 76882; 99284

== ENCOUNTER 2022-06-14 20:46 | Emergency (ER) | payer OTHER ==
--- OUTSIDE RECORDS SUMMARY | 2022-06-14 20:55 | XMS REPORT | Continuity of Care Document ---
:1995 Author Organization [facility] t Address [address] [place] [address] Care Team Providers Name Role Phone PCP, PATIENT DOES NOT HAVE A Primary Care Physician Unavaila ROD Lama Attending Clinician Unavailable REBEKAH VAZ Attending Clinician Unavailable Ultrasound, Adc m Attending Clinician Unavailable Rebekah Vaz MD Attending Clinician Johnna Chowdhury MD Attending Clinician [phone] JOHNNA CHOWDHURY Attending Clinician Unavailable JULIAN ELENA Attending Clinician Unavailable Faculty, [facility] Attending Clinician Unavailable Julian Elena MD Attending Clinician Rod Price MD Attending Clinician TRITSCHLER, CHERYAL Attending Clinician Unavailable TRISHAQUILLECHLMANI, CHERYAL Attending Clinician Unavailable Doctor Unassigned, [place] Attending Clinician Unavailable Lab, Ang - Db Attending Clinician Unavailable Nurse, [facility] Attending Clinician Unavailable 1, [facility] Usg Room Attending Clinician Unavailable Severo Mcclellan MD Attending Clinician SEVERO MCCLELLAN Attending Clinician Unavailable SEVERO MCCLELLAN Attending Clinician Unavailable Christine Huber RN Attending Clinician Unavailable Po, [facility] Lab Main Attending Clinician Unavailable Aydin Ferrera MD Attending Clinician 2, [facility] Usg Room Attending Clinician Unavailable Jamila Zaldivar MD Attending Clinician Nurse, [facility] Attending Clinician Unavailable Ana Cristina Coates RN Attending Clinician Unavailable Conchita Hoskins PA-C Attending Clinician Wicho Boateng DO Attending Clinician Nurse, [facility] Attending Clinician Unavailable EbrahiCecelia Deluna Attending Clinician EBRAHIM, RANIA Attending Clinician Unavailable Linda Denson MD Attending Clinician Rosa Velasco MA Attending Clinician Unavailable Rhonda Josue RN Attending Clinician Unavailable Provider, [facility] Attending Clinician Unavailable JAMILA ZALDIVAR Attending Clinician Unavailable RIDKASHIF ACUNA Attending Clinician Unavailable Oneida Kashif COY Attending Clinician SONI CONTRERAS Attending Clinician Unavailable JEANNA BULLOCK Attending Clinician Unavailable LINDA DENSON Attending Clinician Unavailable Amanda Patiño Attending Clinician Nelson Patel Attending Clinician VERNON GONZALEZ III Attending Clinician Unavailable Jeanna Bullock MD Attending Clinician NELSON HAMMONDS Attending Clinician Unavailable King ALLISON MD, James C Attending Clinician MAR SEGURA Attending Clinician Unavailable JOSH BECKHAM Attending Clinician Unavailable Only, [facility] Attending Clinician Unavailable LIBBY GR Attending Clinician Unavailable Libby Richard Attending Clinician Soni Rivera Attending Clinician MUKUND SOTO Attending Clinician Unavailable Charles RESEARCH PROFESSIONAL, Mukund Attending Clinician ERIC MOCK Attending Clinician Unavailable Emili RESEARCH PROFESSIONAL, Eric Hammond Attending Clinician AMANDA CHINCHILLA Attending Clinician Unavailable Hill Barfield MD Attending Clinician Adrián Parikh MD Attending Clinician TAB KERNS Attending Clinician Unavailable Ultrasound, [facility] Attending Clinician Unavailable Susanna Jeronimo MD Attending Clinician [phone] [facility], [facility] Attending Clinician Unavailable Visit, [facility] Nurse Attending Clinician Unavailable Ang SNOWP, Kathryn Miranda Attending Clinician Fellow, [facility] Attending Clinician Unavailable Makayla Lechuga Attending Clinician Unavailable Maico Saini MD Attending Clinician Jurgen MCKINLEY, Chuy Attending Clinician Unavailable Akindonnell [facility] Attending Clinician [phone] Damien MCKINLEY, Ellie Ponce Attending Clinician Unavailable Kandi Reid MD Attending Clinician MAICO SAINI Attending Clinician Unavailable Brandon Whitten MD Attending Clinician Tammy Ortiz MD Attending Clinician ROBERT HARVEY Attending Clinician Unavailable Emmanuel Lepe MD Attending Clinician Maldonado Marie MD Attending Clinician Ana [facility] Attending Clinician , Ayq-Zbcxy-Ld/ Attending Clinician Unavailable Dee [facility] Colón Attending Clinician Raju_P Attending Clinician Unavailable JAMILA ZALDIVAR Admitting Clinician Unavailable SEVERO MCCLELLAN Admitting Clinician Unavailable Jamila Zaldivar MD Admitting Clinician Julian Elena MD Admitting Clinician Arely Admitting Clinician Unavailable Payers Payer Name Policy Type Policy Number Effective Date Expiration Date Kris QUINTEROS [id number] 2021 00:00:00 Problems Condition Condition Condition Status Onset Resolution Last Treating Co mments Source Name Details Category Date Date Treatment Clinician Date Round Round Disease Active Univers ligament ligament 9-30 ity of pain pain 00:00: [place] 00 Medical Branch History of History of Disease Active U nivers 6-30 [place] [facility] History of History of Disease Active U nivers miscarriag miscarriag 6-27 it y of e, e, 00:00: [place] currently currently 00 [facility] Tobacco Tobacco Disease Active Univers abuse abuse 6- ity of 00:00: [place] 00 Medical Branch History of History of Disease Active U nivers 9 ity of section section 00:00: [place] 00 Medical Branch COVID-19 COVID-19 Disease Active Unive rs virus IgG virus IgG 8-18 ity of antibody antibody 00:00: [place] detected detected 00 Medica l Branch High risk High risk Disease Active Uni vers , , 7-20 [place] ante[place] Marijuana Marijuana Disease Active Uni [...] this [place] third in third note Medica l trimester trimester might be Br anch different from the original. Dx at age 6-7. Inhaler combivent , albuterol nebulizer and xopinex.I CD10 Diagnosis Term Syruper Utility Anxiety Anxiety Disease Active Overview: Univ [...] Disease Active Overview : Univers seizures seizures -16 Formattin ity of 00:00: g of this note Medical might be Branch different from the original. Childhood x 1 episiode Allergies, Adverse Reactions, Alerts Allergy Allergy Status Severity Reaction(s) Onset Inactive Treating Comm ents Source Name Type Date Date Clinician Penicill Propensi Active Nausea 2020-08 Univer s in ty to and/or 0-06 ity of adverse Vomiting 00:00: [place] reaction Medical s Branch PENICILL DRUG Active High N/V 2020-08 Univers IN INGREDI 0-06 ity of 00:00: Medical Branch Prometha Propensi Active Itching Itching Univ ers zine Hcl ty to 09-02 and hives ity o f adverse 00:00: [place] reaction Medical s Branch PROMETHA DRUG Active ITCHING Univers ZINE HCL INGREDI 09-02 ity of 00:00: Medical Branch Adhesive Propensi Active Rash 2015- Univer s Tape-Fannie ty to 3-08 ity of icones adverse 00:00: [place] reaction Medical s Branch ADHESIVE DRUG Active Rash 2015- Univers TAPE-FANNIE 3-08 ity of ICONES 00:00: Medical Branch Hydrocod Drug Active Itching itching Univer s one Allergy 8- ity of 00:00: Medical Branch HYDROCOD DRUG Active Low Rash 2011- Univers ONE INGREDI 8-27 ity of 00:00: [address] Social History Social Habit Start Date Stop Date Quantity Comments Source ASSERTION 2022-01-02 University of 00:00:00 [facility] Alcohol intake 2022-05-27 2022-05-27 0 /d University of 00:00:00 00:00:00 [facility] Exposure to 2022-05-16 2022-05-26 Not sure University SARS-CoV-2 (event) 00:00:00 11:04:00 [facility] Cigarettes smoked 2022-02-27 2022-02-27 Univers ity of current (pack per 00:00:00 00:00:00 [facility] ) - Reported Branch Cigarette 2022-02-27 2022-02-27 University of pack-years 00:00:00 00:00:00 [facility] Tobacco use and 2022-02-27 2022-02-27 Smokeless Universit y of exposure 00:00:00 00:00:00 tobacco [facility]-user [facility] 2022-02-27 2022-02-27 2-3 cig /day Univers ity of 00:00:00 00:00:00 [facility] History of tobacco 2020-08-14 Cigarette Smoker University of use 00:00:00 [facility] Sex Assigned At [address] [facility] 00:00[facility]00 [facility] Smoking Status Start Date Stop Date Source Smokes tobacco daily 2022-02-27 00:00:00 Univers ity of [facility] Medications Ordered Filled Start Stop Current Ordering Indication Dosage Frequency Signature Comments Components Source Medication Medication Date Date Medication? Clinician (SIG) Name Name methIMAzole 2021-08 Yes [id number] 5mg Take 1 Univers 5 mg tablet 0-25 tablet by ity of 00:00: mouth in [place] 00 the Medical morning. Branch methIMAzole 2021-08 Yes [id number] 5mg Take 1 Univers 5 mg tablet 0-25 tablet by ity of 00:00: mouth in [place] 00 the Medical morning. Branch methIMAzole 2021-08 Yes [id number] 5mg Take 1 Univers 5 mg tablet 0-25 tablet by ity of 00:00: mouth in [place] 00 the Medical morning. Branch methIMAzole 2021-08 Yes [id number] 5mg Take 1 Univers 5 mg tablet 0-25 tablet by ity of 00:00: mouth in [place] 00 the Medical morning. Branch traMADoL 50 2021-08 Yes Univer s mg tablet 0-18 ity of 00:00: [place] [facility] traMADoL 50 2021-08 Yes Univer s mg tablet 0-18 ity of 00:00: [place] [facility] traMADoL 50 2021-08 Yes Univer s mg tablet 0-18 ity of 00:00: [place] [facility] traMADoL 50 2021-08 Yes Univer s mg tablet 0-18 ity of 00:00: [place] [facility] traMADoL 50 2021-08 Yes Univer s mg tablet 0-18 ity of 00:00: [place] [facility] traMADoL 50 2021-08 Yes Univer s mg tablet 0-18 ity of 00:00: [place] [facility] traMADoL 50 2021-08 Yes Univer s mg tablet 0-18 ity of 00:00: [place] [facility] traMADoL 50 2021-08 Yes Univer s mg tablet 0-18 ity of 00:00: [place] [facility] hydroxyprog 2021-08- No [id number] 275mg Univers esterone(PF 0-16 05- ity of ) (YI 14:30: 13:21 [place] AUTO-INJECT 00 :00 Medical OR) 275 Branch mg/1.1 mL injection 275 mg hydroxyprog 2021-08- No [id number] 275mg 275 mg, Univers esterone(PF 005-16 Subcutaneo i ty of ) (YI 14:30: 13:21 [place] :00 1 dose, On Me dical OR) 275 Fri Branch mg/1.1 mL 05/16/22 injection at 0930, 275 mg Routine hydroxyprog 2021-08- No [id number] 275mg Univers esterone(PF 005-09 ity of ) (YI 15:15: 14:19 [place] AUTO-INJECT 00 :00 Medical OR) 275 Branch mg/1.1 mL injection 275 mg hydroxyprog 2021-08- No [id number] 275mg 275 mg, Univers esterone(PF 0-07 10-07 Subcutaneo i ty of ) (YI 15:15: 14:19 [place]O-INJECT 00 :00 1 dose, On Me dical OR) 275 Fri Branch mg/1.1 mL 05/09/22 at injection 1015, 275 mg Routine hydroxyprog 2022-0 2022- No [id number] 275mg Univers esterone(PF 05-02 ity of ) (YI 21:45: 21:31 [place] AUTO-INJECT 00 :00 Medical OR) 275 Branch mg/1.1 mL injection 275 mg hydroxyprog 2022-0 2022- No [id number] 275mg 275 mg, Univers esterone(PF 05-02 Subcutaneo i ty of ) (YI :45: 21:31 [place], [place] AUTO-INJECT 00 :00 1 dose, On Me dical OR) 275 Fri Branch mg/1.1 mL 05/02/22 at injection 1645, 275 mg Routine hydroxyprog 2022-0 2022- No [id number] 275mg Univers esterone(PF 05-02 ity of ) (YI :45: 21:31 [place] AUTO-INJECT 00 :00 Medical OR) 275 Branch mg/1.1 mL injection 275 mg hydroxyprog 2022-0 2022- No [id number] 275mg 275 mg, Univers esterone(PF 05-02 Subcutaneo i ty of ) (YI :45: 21:31 [place], [place] AUTO-INJECT 00 :00 1 dose, On Me dical OR) 275 Fri Branch mg/1.1 mL 05/02/22 at injection 1645, 275 mg Routine hydroxyprog 2022-0 2022- No [id number] 275mg Univers esterone(PF 05-02 ity of ) (YI :45: 21:31 [place] AUTO-INJECT 00 :00 Medical OR) 275 Branch mg/1.1 mL injection 275 mg hydroxyprog 2022-0 2022- No [id number] 275mg 275 mg, Univers esterone(PF 05-02 Subcutaneo i ty of ) (YI 21:45: 21:31 [place]CE, [place] AUTO-INJECT 00 :00 1 dose, On Me dical OR) 275 Fri Branch mg/1.1 mL 05/02/22 at injection 1645, 275 mg Routine hydroxyprog 2021-0 2021- No [id number] 275mg Univers esterone(PF 04-25 ity of ) (YI 15:45: 14:56 [place] AUTO-INJECT 00 :00 Medical OR) 275 Branch mg/1.1 mL injection 275 mg hydroxyprog 2021-0 2021- No [id number] 275mg 275 mg, Univers esterone(PF 04-25 Subcutaneo i ty of ) (YI 15:45: 14:56 [place]CE, [place] AUTO-INJECT 00 :00 1 dose, On Me dical OR) 275 Fri Branch mg/1.1 mL 04/25/22 at injection 1045, 275 mg Routine hydroxyprog 2021-2021- No [id number] 275mg Univers esterone(PF 04-25 ity of ) (YI 15:45: 14:56 [place] AUTO-INJECT 00 :00 Medical OR) 275 Branch mg/1.1 mL injection 275 mg hydroxyprog 0 2021- No [id number] 275mg 275 mg, Univers esterone(PF 04-25 Subcutaneo [...] 00:00: [place] injection 00 Medical Branch cephALEXin 2021-0 Yes [id number] 500mg Take 1 Univers (KEFLEX) 9-11 capsule by ity o f 500 mg 00:00: mouth in [place] capsule 00 the Medical morning Branch and 1 capsule in the evening. cephALEXin 2021-0 Yes [id number] 500mg Take 1 Univers (KEFLEX) 9-11 capsule by ity o f 500 mg 00:00: mouth in [place] capsule 00 the Medical morning Branch and 1 capsule in the evening. cephALEXin 2021-0 Yes [id number] 500mg Take 1 Univers (KEFLEX) 9-11 capsule by ity o f 500 mg 00:00: mouth in [place] capsule 00 the Medical morning Branch and 1 capsule in the evening. cephALEXin 2022-0 Yes [id number] 500mg Take 1 Univers (KEFLEX) 9-11 capsule by ity o f 500 mg 00:00: mouth in [place] capsule 00 the Medical morning Branch and 1 capsule in the evening. cephALEXin 2022-0 Yes [id number] 500mg Take 1 Univers (KEFLEX) 9-11 capsule by ity o f 500 mg 00:00: mouth in [place] capsule 00 the Medical morning Branch and 1 capsule in the evening. cephALEXin 2022-0 Yes [id number] 500mg Take 1 Univers (KEFLEX) 9-11 capsule by ity o f 500 mg 00:00: mouth in [place] capsule 00 the Medical morning Branch and 1 capsule in the evening. cephALEXin 2022-0 Yes [id number] 500mg Take 1 Univers (KEFLEX) 9-11 capsule by ity o f 500 mg 00:00: mouth in [place] capsule 00 the Medical morning Branch and 1 capsule in the evening. cephALEXin 2022-0 Yes [id number] 500mg Take 1 Univers (KEFLEX) 9-11 capsule by ity o f 500 mg 00:00: mouth in [place] capsule 00 the Medical morning Branch and 1 capsule in the evening. cephALEXin 2022-0 Yes [id number] 500mg Take 1 Univers (KEFLEX) 9-11 capsule by ity o f 500 mg 00:00: mouth in [place] capsule 00 the Medical morning Branch and 1 capsule in the evening. cephALEXin 2022-0 Yes [id number] 500mg Take 1 Univers (KEFLEX) 9-11 capsule by ity o f 500 mg 00:00: mouth in [place] capsule 00 the Medical morning Branch and 1 capsule in the evening. cephALEXin 2022-0 Yes [id number] 500mg Take 1 Univers (KEFLEX) 9-11 capsule by ity o f 500 mg 00:00: mouth in [place] capsule 00 the Medical morning Branch and 1 capsule in the evening. cephALEXin 2022-0 Yes [id number] 500mg Take 1 Univers (KEFLEX) 9-11 capsule by ity o f 500 mg 00:00: mouth in [place] capsule 00 the Medical morning Branch and 1 capsule in the evening. cephALEXin 2022-0 Yes [id number] 500mg Take 1 Univers (KEFLEX) 9-11 capsule by ity o f 500 mg 00:00: mouth in [place] capsule 00 the Medical morning Branch and 1 capsule in the evening. cephALEXin 2022-0 Yes [id number] 500mg Take 1 Univers (KEFLEX) 9-11 capsule by ity o f 500 mg 00:00: mouth in [place] capsule 00 the Medical morning Branch and 1 capsule in the evening. cephALEXin 2022-0 Yes [id number] 500mg Take 1 Univers (KEFLEX) 9-11 capsule by ity o f 500 mg 00:00: mouth in [place] capsule 00 the Medical morning Branch and 1 capsule in the evening. cephALEXin 2022-0 Yes [id number] 500mg Take 1 Univers (KEFLEX) 9-11 capsule by ity o f 500 mg 00:00: mouth in [place] capsule 00 the Medical morning Branch and 1 capsule in the evening. cephALEXin 2022-0 Yes [id number] 500mg Take 1 Univers (KEFLEX) 9-11 capsule by ity o f 500 mg 00:00: mouth in [place] capsule 00 the Medical morning Branch and 1 capsule in the evening. cephALEXin 2022-0 Yes [id number] 500mg Take 1 Univers (KEFLEX) 9-11 capsule by ity o f 500 mg 00:00: mouth in [place] capsule 00 the Medical morning Branch and 1 capsule in the evening. cephALEXin 2022-0 Yes [id number] 500mg Take 1 Univers (KEFLEX) 9-11 capsule by ity o f 500 mg 00:00: mouth in [place] capsule 00 the Medical morning Branch and 1 capsule in the evening. cephALEXin 2022-0 Yes [id number] 500mg Take 1 Univers (KEFLEX) 9-11 capsule by ity o f 500 mg 00:00: mouth in [place] capsule 00 the Medical morning Branch and 1 capsule in the evening. cephALEXin 2022-0 Yes [id number] 500mg Take 1 Univers (KEFLEX) 9-11 capsule by ity o f 500 mg 00:00: mouth in [place] capsule 00 the Medical morning Branch and 1 capsule in the evening. cephALEXin 2022-0 Yes [id number] 500mg Take 1 Univers (KEFLEX) 9-11 capsule by ity o f 500 mg 00:00: mouth in [place] capsule 00 the Medical morning Branch and 1 capsule in the evening. cephALEXin 2022-0 Yes [id number] 500mg Take 1 Univers (KEFLEX) 9-11 capsule by ity o f 500 mg 00:00: mouth in [place] capsule 00 the Medical morning Branch and 1 capsule in the evening. cephALEXin 2022-0 Yes [id number] 500mg Take 1 Univers (KEFLEX) 9-11 capsule by ity o f 500 mg 00:00: mouth in [place] capsule 00 the Medical morning Branch and 1 capsule in the evening. cephALEXin 2022-0 Yes [id number] 500mg Take 1 Univers (KEFLEX) 9-11 capsule by ity o f 500 mg 00:00: mouth in [place] capsule 00 the Medical morning Branch and 1 capsule in the evening. cephALEXin 2022-0 Yes [id number] 500mg Take 1 Univers (KEFLEX) 9-11 capsule by ity o f 500 mg 00:00: mouth in [place] capsule 00 the Medical morning Branch and 1 capsule in the evening. cephALEXin 2022-0 Yes [id number] 500mg Take 1 Univers (KEFLEX) 9-11 capsule by ity o f 500 mg 00:00: mouth in [place] capsule 00 the Medical morning Branch and 1 capsule in the evening. cephALEXin 2-0 Yes [id number] 500mg Take 1 Univers (KEFLEX) 9-11 capsule by ity o f 500 mg 00:00: mouth in [place] capsule 00 the Medical morning Branch and 1 capsule in the evening. cephALEXin 2-0 Yes [id number] 500mg Take 1 Univers (KEFLEX) 9-11 capsule by ity o f 500 mg 00:00: mouth in [place] capsule 00 the Medical morning Branch and 1 capsule in the evening. cephALEXin 2022-0 2022- No [id number] 500mg Take 1 Univers (KEFLEX) 9-11 10-21 capsule by ity of 500 mg 00:00: 00:00 mouth in [place] capsule 00 :00 the Medical morning Branch and 1 capsule in the evening. cephALEXin 2022-0 2022- No [id number] 500mg Take 1 Univers (KEFLEX) 9-11 10-21 capsule by ity of 500 mg 00:00: 00:00 mouth in [place] capsule 00 :00 the Medical morning Branch and 1 capsule in the evening. cephALEXin 2022-0 2022- No [id number] 500mg Take 1 Univers (KEFLEX) 9-11 10-21 capsule by ity of 500 mg 00:00: 00:00 mouth in [place] capsule 00 :00 the Medical morning Branch and 1 capsule in the evening. cephALEXin 2021- No [id number] 500mg Take 1 Univers (KEFLEX) -06 12- capsule by ity of 500 mg 00:00: 00:00 mouth in [place] capsule 00 :00 the Medical morning Branch and 1 capsule in the evening. metroNIDAZO 2021- No 500mg 500 mg, U nivers LE (FLAGYL) 04-11 Oral, ity of tablet 500 23:15: 23:48 ONCE, 1 [place] as mg 00 :00 dose, On Medical Thu04/11/22 Branch at 1815, Routine
Reason for Anti-Infec tive: Documented Infection< br>Documen vivek Infection Site: Other
O ther site: vaginal
Duration of Therapy: 7 days metroNIDAZO 0 Yes [id number] 500mg Take 1 Univers LE (FLAGYL) 9 tablet by ity of 500 mg 00:00: mouth [place] tablet 00 every 12 Medical (twelve) Branch hours. metroNIDAZO 2021-0 Yes [id number] 500mg Take 1 Univers LE (FLAGYL) 9- tablet by ity of 500 mg 00:00: mouth [place] tablet 00 every 12 Medical (twelve) Branch hours. metroNIDAZO 2021-0 Yes [id number] 500mg Take 1 Univers LE (FLAGYL) 9- tablet by ity of 500 mg 00:00: mouth [place] tablet 00 every 12 Medical (twelve) Branch hours. metroNIDAZO 2021-0 Yes [id number] 500mg Take 1 Univers LE (FLAGYL) 9-09 tablet by ity of 500 mg 00:00: mouth [place] tablet 00 every 12 Medical (twelve) Branch hours. metroNIDAZO 2021-0 Yes [id number] 500mg Take 1 Univers LE (FLAGYL) 9-09 tablet by ity of 500 mg 00:00: mouth [place] tablet 00 every 12 Medical (twelve) Branch hours. metroNIDAZO 2021-0 Yes [id number] 500mg Take 1 Univers LE (FLAGYL) 9- tablet by ity of 500 mg 00:00: mouth [place] tablet 00 every 12 Medical (twelve) Branch hours. metroNIDAZO 2-0 Yes [id number] 500mg Take 1 Univers LE (FLAGYL) 9-09 tablet by ity of 500 mg 00:00: mouth [place] tablet 00 every 12 Medical (twelve) Branch hours. metroNIDAZO 2022-0 Yes [id number] 500mg Take 1 Univers LE (FLAGYL) 9-09 tablet by ity of 500 mg 00:00: mouth [place] tablet 00 every 12 Medical (twelve) Branch hours. metroNIDAZO 2021-0 Yes [id number] 500mg Take 1 Univers LE (FLAGYL) 9-09 tablet by ity of 500 mg 00:00: mouth [place] tablet 00 every 12 Medical (twelve) Branch hours. metroNIDAZO 2021-0 Yes [id number] 500mg Take 1 Univers LE (FLAGYL) 9-09 tablet by ity of 500 mg 00:00: mouth [place] tablet 00 every 12 Medical (twelve) Branch hours. metroNIDAZO 2021-0 Yes [id number] 500mg Take 1 Univers LE (FLAGYL) 9-09 tablet by ity of 500 mg 00:00: mouth [place] tablet 00 every 12 Medical (twelve) Branch hours. metroNIDAZO 2021-0 Yes [id number] 500mg Take 1 Univers LE (FLAGYL) 9-09 tablet by ity of 500 mg 00:00: mouth [place] tablet 00 every 12 Medical (twelve) Branch hours. metroNIDAZO 2021-0 Yes [id number] 500mg Take 1 Univers LE (FLAGYL) 9-09 tablet by ity of 500 mg 00:00: mouth [place] tablet 00 every 12 Medical (twelve) Branch hours. metroNIDAZO 2021-0 Yes [id number] 500mg Take 1 Univers LE (FLAGYL) 9-09 tablet by ity of 500 mg 00:00: mouth [place] tablet 00 every 12 Medical (twelve) Branch hours. metroNIDAZO 2-0 Yes [id number] 500mg Take 1 Univers LE (FLAGYL) 9-09 tablet by ity of 500 mg 00:00: mouth [place] tablet 00 every 12 Medical (twelve) Branch hours. metroNIDAZO 2-0 Yes [id number] 500mg Take 1 Univers LE (FLAGYL) 9-09 tablet by ity of 500 mg 00:00: mouth [place] tablet 00 every 12 Medical (twelve) Branch hours. metroNIDAZO 2022-0 Yes [id number] 500mg Take 1 Univers LE (FLAGYL) 9-09 tablet by ity of 500 mg 00:00: mouth [place] tablet 00 every 12 Medical (twelve) Branch hours. metroNIDAZO 2-0 Yes [id number] 500mg Take 1 Univers LE (FLAGYL) 9-09 tablet by ity of 500 mg 00:00: mouth [place] tablet 00 every 12 Medical (twelve) Branch hours. metroNIDAZO 2021-0 Yes [id number] 500mg Take 1 Univers LE (FLAGYL) 9-09 tablet by ity of 500 mg 00:00: mouth [place] tablet 00 every 12 Medical (twelve) Branch hours. metroNIDAZO 2021-0 Yes [id number] 500mg Take 1 Univers LE (FLAGYL) 9-09 tablet by ity of 500 mg 00:00: mouth [place] tablet 00 every 12 Medical (twelve) Branch hours. metroNIDAZO 2021-0 Yes [id number] 500mg Take 1 Univers LE (FLAGYL) 9-09 tablet by ity of 500 mg 00:00: mouth [place] tablet 00 every 12 Medical (twelve) Branch hours. metroNIDAZO 2021-0 Yes [id number] 500mg Take 1 Univers LE (FLAGYL) 9-09 tablet by ity of 500 mg 00:00: mouth [place] tablet 00 every 12 Medical (twelve) Branch hours. metroNIDAZO 2021-0 Yes [id number] 500mg Take 1 Univers LE (FLAGYL) 9-09 tablet by ity of 500 mg 00:00: mouth [place] tablet 00 every 12 Medical (twelve) Branch hours. metroNIDAZO 2021-0 Yes [id number] 500mg Take 1 Univers LE (FLAGYL) 9-09 tablet by ity of 500 mg 00:00: mouth [place] tablet 00 every 12 Medical (twelve) Branch hours. metroNIDAZO 2021-0 Yes [id number] 500mg Take 1 Univers LE (FLAGYL) 9-09 tablet by ity of 500 mg 00:00: mouth [place] tablet 00 every 12 Medical (twelve) Branch hours. metroNIDAZO 2-0 Yes [id number] 500mg Take 1 Univers LE (FLAGYL) 9-09 tablet by ity of 500 mg 00:00: mouth [place] tablet 00 every 12 Medical (twelve) Branch hours. metroNIDAZO 2021-0 Yes [id number] 500mg Take 1 Univers LE (FLAGYL) 9-09 tablet by ity of 500 mg 00:00: mouth [place] tablet 00 every 12 Medical (twelve) Branch hours. metroNIDAZO 2022-0 Yes [id number] 500mg Take 1 Univers LE (FLAGYL) 9-09 tablet by ity of 500 mg 00:00: mouth [place] tablet 00 every 12 Medical (twelve) Branch hours. metroNIDAZO 2022-0 Yes [id number] 500mg Take 1 Univers LE (FLAGYL) 9-09 tablet by ity of 500 mg 00:00: mouth [place] tablet 00 every 12 Medical (twelve) Branch hours. metroNIDAZO 2022-0 Yes [id number] 500mg Take 1 Univers LE (FLAGYL) 9-09 tablet by ity of 500 mg 00:00: mouth [place] tablet 00 every 12 Medical (twelve) Branch hours. metroNIDAZO 2-0 Yes [id number] 500mg Take 1 [facility] ([facility]YL) 9-09 tablet by [facility] 500 mg 00:00: mouth [place] tablet 00 every 12 Medical (twelve) Branch hours. metroNIDAZO 2021-0 Yes [id number] 500mg Take 1 [facility] (FLAGYL) 9-09 tablet by [facility] 500 mg 00:00: mouth [place] tablet 00 every 12 Medical (twelve) Branch hours. metroNIDAZO 2-0 Yes [id number] 500mg Take 1 [facility] (FLAGYL) 9-09 tablet by [facility] 500 mg 00:00: mouth [place] tablet 00 every 12 Medical (twelve) Branch hours. metroNIDAZO 2-0 Yes [id number] 500mg Take 1 [facility] (FLAGYL) 9-09 tablet by [facility] 500 mg 00:00: mouth [place] tablet 00 every 12 Medical (twelve) Branch hours. metroNIDAZO 2-0 Yes [id number] 500mg Take 1 [facility] (FLAGYL) 9-09 tablet by [facility] 500 mg 00:00: mouth [place] tablet 00 every 12 Medical (twelve) Branch hours. metroNIDAZO 2022-0 Yes [id number] 500mg Take 1 [facility] (FLAGYL) 9-09 tablet by [facility] 500 mg 00:00: mouth [place] tablet 00 every 12 Medical (twelve) Branch hours. metroNIDAZO 2022-0 Yes [id number] 500mg Take 1 [facility] (FLAGYL) 9-09 tablet by [facility] 500 mg 00:00: mouth [place] tablet 00 every 12 Medical (twelve) Branch hours. metroNIDAZO 2022-0 Yes [id number] 500mg Take 1 [facility] (FLAGYL) 9-09 tablet by [facility] 500 mg 00:00: mouth [place] tablet 00 every 12 Medical (twelve) Branch hours. metroNIDAZO 2022-0 Yes [id number] 500mg Take 1 [facility] (FLAGYL) 9-09 tablet by [facility] 500 mg 00:00: mouth [place] tablet 00 every 12 Medical (twelve) Branch hours. metroNIDAZO 2022-0 Yes [id number] 500mg Take 1 [facility] (FLAGYL) 9-09 tablet by [facility] 500 mg 00:00: mouth [place] tablet 00 every 12 Medical (twelve) Branch hours. metoclopram 2022-0 Yes [id number] 10mg Take 1 [facility] HCl 10 8-31 tablet by [facility] mg tablet 00:00: mouth [place] 00 every 6 Medical (six) Branch hours as needed for Nausea and Vomiting (N/V) or Gastroesop hageal reflux. famotidine 2022-0 Yes [id number] 20mg Take 1 [facility] 20 mg 8-31 tablet by [facility] tablet 00:00: mouth in [place] 00 the Medical morning Branch and 1 tablet in the evening. metoclopram 2022-0 Yes [id number] 10mg Take 1 [facility] HCl 10 8-31 tablet by [facility] mg tablet 00:00: mouth [place] 00 every 6 Medical (six) Branch hours as needed for Nausea and Vomiting (N/V) or Gastroesop hageal reflux. famotidine 2022-0 Yes [id number] 20mg Take 1 [facility] 20 mg 8-31 tablet by [facility] tablet 00:00: mouth in [place] 00 the Medical morning Branch and 1 tablet in the evening. metoclopram 2022-0 Yes [id number] 10mg Take 1 [facility] HCl 10 8-31 tablet by [facility] mg tablet 00:00: mouth [place] 00 every 6 Medical (six) Branch hours as needed for Nausea and Vomiting (N/V) or Gastroesop hageal reflux. famotidine 2022-0 Yes [id number] 20mg Take 1 [facility] 20 mg 8-31 tablet by [facility] tablet 00:00: mouth in [place] 00 the Medical morning Branch and 1 tablet in the evening. metoclopram 2022-0 Yes [id number] 10mg Take 1 [facility] HCl 10 8-31 tablet by [facility] mg tablet 00:00: mouth [place] 00 every 6 Medical (six) Branch hours as needed for Nausea and Vomiting (N/V) or Gastroesop hageal reflux. famotidine 2022-0 Yes [id number] 20mg Take 1 [facility] 20 mg 8-31 tablet by [facility] tablet 00:00: mouth in [place] 00 the Medical morning Branch and 1 tablet in the evening. metoclopram 2022-0 Yes [id number] 10mg Take 1 [facility] HCl 10 8-31 tablet by [facility] mg tablet 00:00: mouth [place] 00 every 6 Medical (six) Branch hours as needed for Nausea and Vomiting (N/V) or Gastroesop hageal reflux. famotidine 2022-0 Yes [id number] 20mg Take 1 [facility] 20 mg 8-31 tablet by [facility] tablet 00:00: mouth in [place] 00 the Medical morning Branch and 1 tablet in the evening. metoclopram 2022-0 Yes [id number] 10mg Take 1 [facility] HCl 10 8-31 tablet by [facility] mg tablet 00:00: mouth [place] 00 every 6 Medical (six) Branch hours as needed for Nausea and Vomiting (N/V) or Gastroesop hageal reflux. famotidine 2022-0 Yes [id number] 20mg Take 1 [facility] 20 mg 8-31 tablet by [facility] tablet 00:00: mouth in [place] 00 the Medical morning Branch and 1 tablet in the evening. metoclopram 2022-0 Yes [id number] 10mg Take 1 [facility] HCl 10 8-31 tablet by [facility] mg tablet 00:00: mouth [place] 00 every 6 Medical (six) Branch hours as needed for Nausea and Vomiting (N/V) or Gastroesop hageal reflux. famotidine 2022-0 Yes [id number] 20mg Take 1 [facility] 20 mg 8-31 tablet by [facility] tablet 00:00: mouth in [place] 00 the Medical morning Branch and 1 tablet in the evening. metoclopram 2022-0 Yes [id number] 10mg Take 1 [facility] HCl 10 8-31 tablet by [facility] mg tablet 00:00: mouth [place] 00 every 6 Medical (six) Branch hours as needed for Nausea and Vomiting (N/V) or Gastroesop hageal reflux. famotidine 2022-0 Yes [id number] 20mg Take 1 [facility] 20 mg 8-31 tablet by [facility] tablet 00:00: mouth in [place] 00 the Medical morning Branch and 1 tablet in the evening. metoclopram 2022-0 Yes [id number] 10mg Take 1 [facility] HCl 10 8-31 tablet by [facility] mg tablet 00:00: mouth [place] 00 every 6 Medical (six) Branch hours as needed for Nausea and Vomiting (N/V) or Gastroesop hageal reflux. famotidine 2022-0 Yes [id number] 20mg Take 1 [facility] 20 mg 8-31 tablet by [facility] of tablet 00:00: mouth in [place] 00 the Medical morning Branch and 1 tablet in the evening. metoclopram 2022-0 Yes [id number] 10mg Take 1 [facility] HCl 10 8-31 tablet by [facility] of mg tablet 00:00: mouth [place] [address] every 6 Medical (six) Branch hours as needed for Nausea and Vomiting (N/V) or Gastroesop hageal reflux. famotidine 2022-0 Yes [id number] 20mg Take 1 [facility] 20 mg 8-31 tablet by [facility] of tablet 00:00: mouth in [place] 00 the Medical morning Branch and 1 tablet in the evening. metoclopram 2022-0 Yes [id number] 10mg Take 1 [facility] HCl 10 8-31 tablet by [facility] mg tablet 00:00: mouth [place] 00 every 6 Medical (six) Branch hours as needed for Nausea and Vomiting (N/V) or Gastroesop hageal reflux. famotidine 2022-0 Yes [id number] 20mg Take 1 [facility] 20 mg 8-31 tablet by [facility] tablet 00:00: mouth in [place] 00 the Medical morning Branch and 1 tablet in the evening. metoclopram 2022-0 Yes [id number] 10mg Take 1 [facility] HCl 10 8-31 tablet by [facility] mg tablet 00:00: mouth [place] 00 every 6 Medical (six) Branch hours as needed for Nausea and Vomiting (N/V) or Gastroesop hageal reflux. famotidine 2022-0 Yes [id number] 20mg Take 1 [facility] 20 mg 8-31 tablet by [facility] tablet 00:00: mouth in [place] 00 the Medical morning Branch and 1 tablet in the evening. metoclopram 2022-0 Yes [id number] 10mg Take 1 [facility] HCl 10 8-31 tablet by [facility] mg tablet 00:00: mouth [place] 00 every 6 Medical (six) Branch hours as needed for Nausea and Vomiting (N/V) or Gastroesop hageal reflux. famotidine 2022-0 Yes [id number] 20mg Take 1 [facility] 20 mg 8-31 tablet by [facility] tablet 00:00: mouth in [place] 00 the Medical morning Branch and 1 tablet in the evening. metoclopram 2022-0 Yes [id number] 10mg Take 1 [facility] HCl 10 8-31 tablet by [facility] mg tablet 00:00: mouth [place] 00 every 6 Medical (six) Branch hours as needed for Nausea and Vomiting (N/V) or Gastroesop hageal reflux. famotidine 2022-0 Yes [id number] 20mg Take 1 [facility] 20 mg 8-31 tablet by [facility] of tablet 00:00: mouth in [place] 00 the Medical morning Branch and 1 tablet in the evening. metoclopram 2022-0 Yes [id number] 10mg Take 1 [facility] HCl 10 8-31 tablet by [facility] mg tablet 00:00: mouth [place] [address] every 6 Medical (six) Branch hours as needed for Nausea and Vomiting (N/V) or Gastroesop hageal reflux. famotidine 2022-0 Yes [id number] 20mg Take 1 [facility] 20 mg 8-31 tablet by [facility] of tablet 00:00: mouth in [place] 00 the Medical morning Branch and 1 tablet in the evening. metoclopram 2022-0 Yes [id number] 10mg Take 1 [facility] HCl 10 8-31 tablet by [facility] of mg tablet 00:00: mouth [place] [address] every 6 Medical (six) Branch hours as needed for Nausea and Vomiting (N/V) or Gastroesop hageal reflux. famotidine 2022-0 Yes [id number] 20mg Take 1 [facility] 20 mg 8-31 tablet by [facility] of tablet 00:00: mouth in [place] 00 the Medical morning Branch and 1 tablet in the evening. metoclopram 2022-0 Yes [id number] 10mg Take 1 [facility] HCl 10 8-31 tablet by [facility] mg tablet 00:00: mouth [place] 00 every 6 Medical (six) Branch hours as needed for Nausea and Vomiting (N/V) or Gastroesop hageal reflux. famotidine 2022-0 Yes [id number] 20mg Take 1 [facility] 20 mg 8-31 tablet by [facility] of tablet 00:00: mouth in [place] 00 the Medical morning Branch and 1 tablet in the evening. metoclopram 2022-0 Yes [id number] 10mg Take 1 [facility] HCl 10 8-31 tablet by [facility] mg tablet 00:00: mouth [place] 00 every 6 Medical (six) Branch hours as needed for Nausea and Vomiting (N/V) or Gastroesop hageal reflux. famotidine 2022-0 Yes [id number] 20mg Take 1 [facility] 20 mg 8-31 tablet by [facility] of tablet 00:00: mouth in [place] 00 the Medical morning Branch and 1 tablet in the evening. metoclopram 2022-0 Yes [id number] 10mg Take 1 [facility] HCl 10 8-31 tablet by [facility] mg tablet 00:00: mouth [place] 00 every 6 Medical (six) Branch hours as needed for Nausea and Vomiting (N/V) or Gastroesop hageal reflux. famotidine 2022-0 Yes [id number] 20mg Take 1 [facility] 20 mg 8-31 tablet by [facility] of tablet 00:00: mouth in [place] 00 the Medical morning Branch and 1 tablet in the evening. metoclopram 2022-0 Yes [id number] 10mg Take 1 [facility] HCl 10 8-31 tablet by [facility] of mg tablet 00:00: mouth [place] 00 every 6 Medical (six) Branch hours as needed for Nausea and Vomiting (N/V) or Gastroesop hageal reflux. famotidine 2022-0 Yes [id number] 20mg Take 1 [facility] 20 mg 8-31 tablet by [facility] of tablet 00:00: mouth in [place] 00 the Medical morning Branch and 1 tablet in the evening. metoclopram 2022-0 Yes [id number] 10mg Take 1 [facility] HCl 10 8-31 tablet by [facility] of mg tablet 00:00: mouth [place] 00 every 6 Medical (six) Branch hours as needed for Nausea and Vomiting (N/V) or Gastroesop hageal reflux. famotidine 2022-0 Yes [id number] 20mg Take 1 [facility] 20 mg 8-31 tablet by [facility] of tablet 00:00: mouth in [place] 00 the Medical morning Branch and 1 tablet in the evening. metoclopram 2022-0 Yes [id number] 10mg Take 1 [facility] HCl 10 8-31 tablet by [facility] of mg tablet 00:00: mouth [place] 00 every 6 Medical (six) Branch hours as needed for Nausea and Vomiting (N/V) or Gastroesop hageal reflux. famotidine 2022-0 Yes [id number] 20mg Take 1 [facility] 20 mg 8-31 tablet by [facility] of tablet 00:00: mouth in [place] 00 the Medical morning Branch and 1 tablet in the evening. metoclopram 2022-0 Yes [id number] 10mg Take 1 [facility] HCl 10 8-31 tablet by [facility] of mg tablet 00:00: mouth [place] 00 every 6 Medical (six) Branch hours as needed for Nausea and Vomiting (N/V) or Gastroesop hageal reflux. famotidine 2022-0 Yes [id number] 20mg Take 1 [facility] 20 mg 8-31 tablet by [facility] of tablet 00:00: mouth in [place] 00 the Medical morning Branch and 1 tablet in the evening. metoclopram 2022-0 Yes [id number] 10mg Take 1 [facility] HCl 10 8-31 tablet by [facility] of mg tablet 00:00: mouth [place] 00 every 6 Medical (six) Branch hours as needed for Nausea and Vomiting (N/V) or Gastroesop hageal reflux. famotidine 2022-0 Yes [id number] 20mg Take 1 [facility] 20 mg 8-31 tablet by [facility] of tablet 00:00: mouth in [place] 00 the Medical morning Branch and 1 tablet in the evening. metoclopram 2022-0 Yes [id number] 10mg Take 1 [facility] HCl 10 8-31 tablet by [facility] of mg tablet 00:00: mouth [place] 00 every 6 Medical (six) Branch hours as needed for Nausea and Vomiting (N/V) or Gastroesop hageal reflux. famotidine 2022-0 Yes [id number] 20mg Take 1 [facility] 20 mg 8-31 tablet by [facility] of tablet 00:00: mouth in [place] 00 the Medical morning Branch and 1 tablet in the evening. metoclopram 2022-0 Yes [id number] 10mg Take 1 [facility] HCl 10 8-31 tablet by [facility] of mg tablet 00:00: mouth [place] 00 every 6 Medical (six) Branch hours as needed for Nausea and Vomiting (N/V) or Gastroesop hageal reflux. famotidine 2022-0 Yes [id number] 20mg Take 1 [facility] 20 mg 8-31 tablet by [facility] of tablet 00:00: mouth in [place] 00 the Medical morning Branch and 1 tablet in the evening. metoclopram 2022-0 Yes [id number] 10mg Take 1 [facility] HCl 10 8-31 tablet by [facility] of mg tablet 00:00: mouth [place] 00 every 6 Medical (six) Branch hours as needed for Nausea and Vomiting (N/V) or Gastroesop hageal reflux. famotidine 2022-0 Yes [id number] 20mg Take 1 [facility] 20 mg 8-31 tablet by [facility] of tablet 00:00: mouth in [place] 00 the Medical morning Branch and 1 tablet in the evening. metoclopram 2022-0 Yes [id number] 10mg Take 1 [facility] HCl 10 8-31 tablet by [facility] of mg tablet 00:00: mouth [place] 00 every 6 Medical (six) Branch hours as needed for Nausea and Vomiting (N/V) or Gastroesop hageal reflux. famotidine 2022-0 Yes [id number] 20mg Take 1 [facility] 20 mg 8-31 tablet by [facility] of tablet 00:00: mouth in [place] 00 the Medical morning Branch and 1 tablet in the evening. metoclopram 2022-0 Yes [id number] 10mg Take 1 [facility] HCl 10 8-31 tablet by [facility] of mg tablet 00:00: mouth [place] 00 every 6 Medical (six) Branch hours as needed for Nausea and Vomiting (N/V) or Gastroesop hageal reflux. famotidine 2022-0 Yes [id number] 20mg Take 1 [facility] 20 mg 8-31 tablet by [facility] of tablet 00:00: mouth in [place] 00 the Medical morning Branch and 1 tablet in the evening. metoclopram 2022-0 Yes [id number] 10mg Take 1 [facility] HCl 10 8-31 tablet by [facility] of mg tablet 00:00: mouth [place] 00 every 6 Medical (six) Branch hours as needed for Nausea and Vomiting (N/V) or Gastroesop hageal reflux. famotidine 2022-0 Yes [id number] 20mg Take 1 [facility] 20 mg 8-31 tablet by [facility] of tablet 00:00: mouth in [place] 00 the Medical morning Branch and 1 tablet in the evening. metoclopram 2022-0 Yes [id number] 10mg Take 1 [facility] HCl 10 8-31 tablet by [facility] of mg tablet 00:00: mouth [place] 00 every 6 Medical (six) Branch hours as needed for Nausea and Vomiting (N/V) or Gastroesop hageal reflux. famotidine 2022-0 Yes [id number] 20mg Take 1 [facility] 20 mg 8-31 tablet by [facility] of tablet 00:00: mouth in [place] 00 the Medical morning Branch and 1 tablet in the evening. metoclopram 2022-0 Yes [id number] 10mg Take 1 [facility] HCl 10 8-31 tablet by [facility] of mg tablet 00:00: mouth [place] 00 every 6 Medical (six) Branch hours as needed for Nausea and Vomiting (N/V) or Gastroesop hageal reflux. famotidine 2022-0 Yes [id number] 20mg Take 1 [facility] 20 mg 8-31 tablet by [facility] of tablet 00:00: mouth in [place] 00 the Medical morning Branch and 1 tablet in the evening. metoclopram 2022-0 Yes [id number] 10mg Take 1 [facility] HCl 10 8-31 tablet by [facility] of mg tablet 00:00: mouth [place] 00 every 6 Medical (six) Branch hours as needed for Nausea and Vomiting (N/V) or Gastroesop hageal reflux. famotidine 2022-0 Yes [id number] 20mg Take 1 [facility] 20 mg 8-31 tablet by [facility] of tablet 00:00: mouth in [place] 00 the Medical morning Branch and 1 tablet in the evening. metoclopram 2022-0 Yes [id number] 10mg Take 1 [facility] HCl 10 8-31 tablet by [facility] of mg tablet 00:00: mouth [place] 00 every 6 Medical (six) Branch hours as needed for Nausea and Vomiting (N/V) or Gastroesop hageal reflux. famotidine 2022-0 Yes [id number] 20mg Take 1 [facility] 20 mg 8-31 tablet by [facility] of tablet 00:00: mouth in [place] 00 the Medical morning Branch and 1 tablet in the evening. metoclopram 2022-0 Yes [id number] 10mg Take 1 [facility] HCl 10 8-31 tablet by [facility] of mg tablet 00:00: mouth [place] 00 every 6 Medical (six) Branch hours as needed for Nausea and Vomiting (N/V) or Gastroesop hageal reflux. famotidine 2022-0 Yes [id number] 20mg Take 1 [facility] 20 mg 8-31 tablet by [facility] of tablet 00:00: mouth in [place] 00 the Medical morning Branch and 1 tablet in the evening. metoclopram 2022-0 Yes [id number] 10mg Take 1 [facility] HCl 10 8-31 tablet by [facility] of mg tablet 00:00: mouth [place] 00 every 6 Medical (six) Branch hours as needed for Nausea and Vomiting (N/V) or Gastroesop hageal reflux. famotidine 2022-0 Yes [id number] 20mg Take 1 [facility] 20 mg 8-31 tablet by [facility] of tablet 00:00: mouth in [place] 00 the Medical morning Branch and 1 tablet in the evening. metoclopram 2022-0 Yes [id number] 10mg Take 1 [facility] HCl 10 8-31 tablet by [facility] of mg tablet 00:00: mouth [place] 00 every 6 Medical (six) Branch hours as needed for Nausea and Vomiting (N/V) or Gastroesop hageal reflux. famotidine 2022-0 Yes [id number] 20mg Take 1 [facility] 20 mg 8-31 tablet by [facility] of tablet 00:00: mouth in [place] 00 the Medical morning Branch and 1 tablet in the evening. metoclopram 2022-0 Yes [id number] 10mg Take 1 [facility] HCl 10 8-31 tablet by [facility] of mg tablet 00:00: mouth [place] 00 every 6 Medical (six) Branch hours as needed for Nausea and Vomiting (N/V) or Gastroesop hageal reflux. famotidine 2022-0 Yes [id number] 20mg Take 1 [facility] 20 mg 8-31 tablet by [facility] of tablet 00:00: mouth in [place] 00 the Medical morning Branch and 1 tablet in the evening. metoclopram 2022-0 Yes [id number] 10mg Take 1 [facility] HCl 10 8-31 tablet by [facility] of mg tablet 00:00: mouth [place] 00 every 6 Medical (six) Branch hours as needed for Nausea and Vomiting (N/V) or Gastroesop hageal reflux. famotidine 2022-0 Yes [id number] 20mg Take 1 [facility] 20 mg 8-31 tablet by [facility] of tablet 00:00: mouth in [place] 00 the Medical morning Branch and 1 tablet in the evening. metoclopram 2022-0 Yes [id number] 10mg Take 1 [facility] HCl 10 8-31 tablet by [facility] of mg tablet 00:00: mouth [place] 00 every 6 Medical (six) Branch hours as needed for Nausea and Vomiting (N/V) or Gastroesop hageal reflux. famotidine 2022-0 Yes [id number] 20mg Take 1 [facility] 20 mg 8-31 tablet by [facility] of tablet 00:00: mouth in [place] 00 the Medical morning Branch and 1 tablet in the evening. metoclopram 2022-0 Yes [id number] 10mg Take 1 [facility] HCl 10 8-31 tablet by [facility] of mg tablet 00:00: mouth [place] 00 every 6 Medical (six) Branch hours as needed for Nausea and Vomiting (N/V) or Gastroesop hageal reflux. famotidine 2022-0 Yes [id number] 20mg Take 1 [facility] 20 mg 8-31 tablet by [facility] of tablet 00:00: mouth in [place] 00 the Medical morning Branch and 1 tablet in the evening. metoclopram 2022-0 Yes [id number] 10mg Take 1 [facility] HCl 10 8-31 tablet by [facility] of mg tablet 00:00: mouth [place] 00 every 6 Medical (six) Branch hours as needed for Nausea and Vomiting (N/V) or Gastroesop hageal reflux. famotidine 2022-0 Yes [id number] 20mg Take 1 [facility] 20 mg 8-31 tablet by [facility] of tablet 00:00: mouth in [place] 00 the Medical morning Branch and 1 tablet in the evening. metoclopram 2022-0 Yes [id number] 10mg Take 1 [facility] HCl 10 8-31 tablet by [facility] of mg tablet 00:00: mouth [place] 00 every 6 Medical (six) Branch hours as needed for Nausea and Vomiting (N/V) or Gastroesop hageal reflux. famotidine 2022-0 Yes [id number] 20mg Take 1 [facility] 20 mg 8-31 tablet by [facility] of tablet 00:00: mouth in [place] 00 the Medical morning Branch and 1 tablet in the evening. metoclopram 2021-0 Yes [id number] 10mg Take 1 [facility] HCl 10 8-31 tablet by [facility] of mg tablet 00:00: mouth [place] 00 every 6 Medical (six) Branch hours as needed for Nausea and Vomiting (N/V) or Gastroesop hageal reflux. famotidine 2021-0 Yes [id number] 20mg Take 1 [facility] 20 mg 8-31 tablet by [facility] tablet 00:00: mouth in [place] 00 the Medical morning Branch and 1 tablet in the evening. doxylamine 2021-0 Yes [id number] 25mg Take 1 [facility] 25 mg 7-28 tablet by [facility] tablet 00:00: mouth at [place] [address] bedtime. Medical Branch doxylamine 0 Yes [id number] 25mg Take 1 [facility] 25 mg 7-28 tablet by [facility] of tablet 00:00: mouth at [place] [address] bedtime. Medical Branch doxylamine 0 Yes [id number] 25mg Take 1 [facility] 25 mg 7-28 tablet by [facility] of tablet 00:00: mouth at [place] [address] bedtime. Medical Branch doxylamine 0 Yes [id number] 25mg Take 1 [facility] 25 mg 7-28 tablet by [facility] of tablet 00:00: mouth at [place] [address] bedtime. [facility] Branch doxylamine 0 Yes [id number] 25mg Take 1 [facility] 25 mg 7-28 tablet by [facility] of tablet 00:00: mouth at [place] [address] bedtime. Medical Branch doxylamine 2021-0 Yes [id number] 25mg Take 1 [facility] 25 mg 7-28 tablet by [facility] of tablet 00:00: mouth at [place] [address] bedtime. Medical Branch doxylamine 2021-0 Yes [id number] 25mg Take 1 [facility] 25 mg 7-28 tablet by [facility] of tablet 00:00: mouth at [place] [address] bedtime. Medical Branch doxylamine 0 Yes [id number] 25mg Take 1 [facility] 25 mg 7-28 tablet by [facility] of tablet 00:00: mouth at [place] [address] bedtime. Medical Branch doxylamine 2021-0 Yes [id number] 25mg Take 1 [facility] 25 mg 7-28 tablet by [facility] of tablet 00:00: mouth at [place] [address] bedtime. [facility] Branch doxylamine 2021-0 Yes [id number] 25mg Take 1 [facility] 25 mg 7-28 tablet by [facility] of tablet 00:00: mouth at [place] [address] bedtime. [facility] Branch doxylamine 2021-0 Yes [id number] 25mg Take 1 [facility] 25 mg 7-28 tablet by [facility] of tablet 00:00: mouth at [place] [address] bedtime. [facility] Branch doxylamine 0 Yes [id number] 25mg Take 1 [facility] 25 mg 7-28 tablet by [facility] of tablet 00:00: mouth at [place] [address] bedtime. [facility] Branch doxylamine 0 Yes [id number] 25mg Take 1 [facility] 25 mg 7-28 tablet by [facility] of tablet 00:00: mouth at [place] [address] bedtime. [facility] doxylamine 0 Yes [id number] 25mg Take 1 [facility] 25 mg 7-28 tablet by [facility] of tablet 00:00: mouth at [place] [address] bedtime. [facility] doxylamine 0 Yes [id number] 25mg Take 1 [facility] 25 mg 7-28 tablet by [facility] of tablet 00:00: mouth at [place] [address] bedtime. [facility] Branch doxylamine Yes [id number] 25mg Take 1 [facility] 25 mg 7-28 tablet by [facility] of tablet 00:00: mouth at [place] [address] bedtime. [facility] doxylamine 2021-0 Yes [id number] 25mg Take 1 [facility] 25 mg 7-28 tablet by [facility] of tablet 00:00: mouth at [place] [address] bedtime. Medical Branch doxylamine 2021-0 Yes [id number] 25mg Take 1 [facility] 25 mg 7-28 tablet by [facility] of tablet 00:00: mouth at [place] [address] bedtime. [facility] Branch doxylamine 2021-0 Yes [id number] 25mg Take 1 [facility] 25 mg 7-28 tablet by [facility] of tablet 00:00: mouth at [place] [address] bedtime. [facility] Branch doxylamine 2021-0 Yes [id number] 25mg Take 1 [facility] 25 mg 7-28 tablet by [facility] of tablet 00:00: mouth at [place] [address] bedtime. [facility] Branch doxylamine 2021-0 Yes [id number] 25mg Take 1 [facility] 25 mg 7-28 tablet by [facility] of tablet 00:00: mouth at [place] 00 bedtime. [facility] doxylamine 0 Yes [id number] 25mg Take 1 [facility] 25 mg 7-28 tablet by [facility] of tablet 00:00: mouth at [place] [address] bedtime. [facility] Branch doxylamine 0 Yes [id number] 25mg Take 1 [facility] 25 mg 7-28 tablet by [facility] of tablet 00:00: mouth at [place] [address] bedtime. [facility] doxylamine 0 Yes [id number] 25mg Take 1 [facility] 25 mg 7-28 tablet by [facility] of tablet 00:00: mouth at [place] [address] bedtime. [facility] doxylamine 0 Yes [id number] 25mg Take 1 [facility] 25 mg 7-28 tablet by [facility] of tablet 00:00: mouth at [place] [address] bedtime. [facility] doxylamine Yes [id number] 25mg Take 1 [facility] 25 mg 7-28 tablet by [facility] of tablet 00:00: mouth at [place] [address] bedtime. [facility] doxylamine 0 Yes [id number] 25mg Take 1 [facility] 25 mg 7-28 tablet by [facility] of tablet 00:00: mouth at [place] [address] bedtime. [facility] doxylamine 0 Yes [id number] 25mg Take 1 [facility] 25 mg 7-28 tablet by [facility] of tablet 00:00: mouth at [place] [address] bedtime. [facility] doxylamine 0 Yes [id number] 25mg Take 1 [facility] 25 mg 7-28 tablet by [facility] of tablet 00:00: mouth at [place] [address] bedtime. [facility] doxylamine 0 Yes [id number] 25mg Take 1 [facility] 25 mg 7-28 tablet by [facility] of tablet 00:00: mouth at [place] [address] bedtime. [facility] doxylamine 0 Yes [id number] 25mg Take 1 [facility] 25 mg 7-28 tablet by [facility] of tablet 00:00: mouth at [place] [address] bedtime. [facility] doxylamine 0 Yes [id number] 25mg Take 1 [facility] 25 mg 7-28 tablet by [facility] of tablet 00:00: mouth at [place] [address] bedtime. [facility] doxylamine 0 Yes [id number] 25mg Take 1 [facility] 25 mg 7-28 tablet by [facility] of tablet 00:00: mouth at [place] [address] bedtime. [facility] doxylamine No [id number] 25mg Take 1 [facility] 25 mg 7-28 10-21 tablet by [facility] tablet 00:00: 00:00 mouth at [place] 00 :00 bedtime. [facility] doxylamine 2021- No [id number] 25mg Take 1 [facility] 25 mg 7-28 10-21 tablet by [facility] of tablet 00:00: 00:00 mouth at [place] 00 :00 bedtime. [facility] doxylamine 2021- No [id number] 25mg Take 1 [facility] 25 mg 7-28 10-21 tablet by [facility] of tablet 00:00: 00:00 mouth at [place] 00 :00 bedtime. [facility] doxylamine 2021- No [id number] 25mg Take 1 [facility] 25 mg 7-28 10-21 tablet by [facility] of tablet 00:00: 00:00 mouth at [place] 00 :00 bedtime. [facility] albuterol Yes [id number] 2{puff} Inhale 2 [facility] 90 7-08 Puffs ity of mcg/actuati 00:00: every 6 [place] on inhaler 00 (six) Medical hours as Branch needed for Shortness of Breath. doxylamine- Yes [id number] Doxylamine [facility] pyridoxine, 02-07 10 ity of [...] mg (4 tablets) per day). albuterol Yes [id number] 2{puff} Inhale 2 [facility] 90 7-08 Puffs [facility]y of mcg/actuati 00:00: every 6 [place] on inhaler 00 (six) Medical hours as Branch needed for Shortness of Breath. doxylamine- Yes [id number] Doxylamine [facility] pyridoxine, 02-07 10 ity of [...] mg (4 tablets) per day). albuterol Yes [id number] 2{puff} Inhale 2 [facility] 90 7-08 Puffs [facility] of mcg/actuati 00:00: every 6 [place] on inhaler 00 (six) Medical hours as Branch needed for Shortness of Breath. doxylamine- Yes [id number] Doxylamine [facility] pyridoxine, 02-07 10 ity of [...] mg (4 tablets) per day). albuterol Yes [id number] 2{puff} Inhale 2 [facility] 90 7-08 Puffs [facility] of mcg/actuati 00:00: every 6 [place] on inhaler 00 (six) Medical hours as Branch needed for Shortness of Breath. doxylamine- Yes [id number] Doxylamine [facility] pyridoxine, 02-07 10 ity of [...] mg (4 tablets) per day). albuterol Yes [id number] 2{puff} Inhale 2 [facility] 90 7-08 Puffs [facility]y of mcg/actuati 00:00: every 6 [place] on inhaler 00 (six) Medical hours as Branch needed for Shortness of Breath. doxylamine- Yes [id number] Doxylamine [facility] pyridoxine, 02-07 10 ity of [...] mg (4 tablets) per day). albuterol Yes [id number] 2{puff} Inhale 2 [facility] 90 7-08 Puffs [facility]y of mcg/actuati 00:00: every 6 [place] on inhaler 00 (six) Medical hours as Branch needed for Shortness of Breath. doxylamine- Yes [id number] Doxylamine [facility] pyridoxine, 02-07 10 ity of [...] mg (4 tablets) per day). albuterol Yes [id number] 2{puff} Inhale 2 [facility] 90 7-08 Puffs [facility]y of mcg/actuati 00:00: every 6 [place] on inhaler 00 (six) Medical hours as Branch needed for Shortness of Breath. doxylamine- Yes [id number] Doxylamine [facility] pyridoxine, 02-07 10 ity of [...] mg (4 tablets) per day). albuterol Yes [id number] 2{puff} Inhale 2 [facility] 90 7-08 Puffs [facility]y of mcg/actuati 00:00: every 6 [place] on inhaler 00 (six) Medical hours as Branch needed for Shortness of Breath. doxylamine- Yes [id number] Doxylamine [facility] pyridoxine, 02-07 10 ity of [...] mg (4 tablets) per day). albuterol Yes [id number] 2{puff} Inhale 2 [facility] 90 7-08 Puffs [facility]y of mcg/actuati 00:00: every 6 [place] on inhaler 00 (six) Medical hours as Branch needed for Shortness of Breath. doxylamine- Yes [id number] Doxylamine [facility] pyridoxine, 02-07 10 ity of [...] mg (4 tablets) per day). albuterol Yes [id number] 2{puff} Inhale 2 [facility] 90 7-08 Puffs ity of mcg/actuati 00:00: every 6 [place] on inhaler 00 (six) Medical hours as Branch needed for Shortness of Breath. doxylamine- Yes [id number] Doxylamine [facility] pyridoxine, 02-07 10 ity of [...] mg (4 tablets) per day). albuterol Yes [id number] 2{puff} Inhale 2 [facility] 90 7-08 Puffs ity of mcg/actuati 00:00: every 6 [place] on inhaler 00 (six) Medical hours as Branch needed for Shortness of Breath. doxylamine- Yes [id number] Doxylamine [facility] pyridoxine, 02-07 10 ity of [...] mg (4 tablets) per day). albuterol Yes [id number] 2{puff} Inhale 2 [facility] 90 7-08 Puffs it[facility] of mcg/actuati 00:00: every 6 [place] on inhaler 00 (six) Medical hours as Branch needed for Shortness of Breath. doxylamine- Yes [id number] Doxylamine [facility] pyridoxine, 02-07 10 ity of [...] mg (4 tablets) per day). albuterol Yes [id number] 2{puff} Inhale 2 [facility] 90 7-08 Puffs ity of mcg/actuati 00:00: every 6 [place] on inhaler 00 (six) Medical hours as Branch needed for Shortness of Breath. doxylamine- Yes [id number] Doxylamine [facility] pyridoxine, 02-07 10 ity of [...] mg (4 tablets) per day). albuterol Yes [id number] 2{puff} Inhale 2 [facility] 90 7-08 Puffs [facility]y of mcg/actuati 00:00: every 6 [place] on inhaler 00 (six) Medical hours as Branch needed for Shortness of Breath. doxylamine- Yes [id number] Doxylamine [facility] pyridoxine, 02-07 10 ity of [...] mg (4 tablets) per day). albuterol Yes [id number] 2{puff} Inhale 2 [facility] 90 7-08 Puffs ity of mcg/actuati 00:00: every 6 [place] on inhaler 00 (six) Medical hours as Branch needed for Shortness of Breath. doxylamine- Yes [id number] Doxylamine [facility] pyridoxine, 02-07 10 ity of [...] mg (4 tablets) per day). albuterol Yes [id number] 2{puff} Inhale 2 [facility] 90 7-08 Puffs ity of mcg/actuati 00:00: every 6 [place] on inhaler 00 (six) Medical hours as Branch needed for Shortness of Breath. doxylamine- Yes [id number] Doxylamine [facility] pyridoxine, 02-07 10 ity of [...] mg (4 tablets) per day). albuterol Yes [id number] 2{puff} Inhale 2 [facility] 90 7-08 Puffs ity of mcg/actuati 00:00: every 6 [place] on inhaler 00 (six) Medical hours as Branch needed for Shortness of Breath. doxylamine- Yes [id number] Doxylamine [facility] pyridoxine, 02-07 10 ity of [...] mg (4 tablets) per day). albuterol Yes [id number] 2{puff} Inhale 2 [facility] 90 7-08 Puffs ity of mcg/actuati 00:00: every 6 [place] on inhaler 00 (six) Medical hours as Branch needed for Shortness of Breath. doxylamine- Yes [id number] Doxylamine [facility] pyridoxine, 02-07 10 ity of [...] mg (4 tablets) per day). albuterol Yes [id number] 2{puff} Inhale 2 [facility] 90 7-08 Puffs ity of mcg/actuati 00:00: every 6 [place] on inhaler 00 (six) Medical hours as Branch needed for Shortness of Breath. doxylamine- Yes [id number] Doxylamine [facility] pyridoxine, 02-07 10 ity of [...] mg (4 tablets) per day). albuterol Yes [id number] 2{puff} Inhale 2 [facility] 90 7-08 Puffs ity of mcg/actuati 00:00: every 6 [place] on inhaler 00 (six) Medical hours as Branch needed for Shortness of Breath. doxylamine- Yes [id number] Doxylamine [facility] pyridoxine, 02-07 10 ity of [...] mg (4 tablets) per day). albuterol Yes [id number] 2{puff} Inhale 2 [facility] 90 7-08 Puffs ity of mcg/actuati 00:00: every 6 [place] on inhaler 00 (six) Medical hours as Branch needed for Shortness of Breath. doxylamine- Yes [id number] Doxylamine [facility] pyridoxine, 02-07 10 ity of [...] mg (4 tablets) per day). albuterol Yes [id number] 2{puff} Inhale 2 [facility] 90 7-08 Puffs ity of mcg/actuati 00:00: every 6 [place] on inhaler 00 (six) Medical hours as Branch needed for Shortness of Breath. doxylamine- Yes [id number] Doxylamine [facility] pyridoxine, 02-07 10 ity of [...] mg (4 tablets) per day). albuterol Yes [id number] 2{puff} Inhale 2 [facility] 90 7-08 Puffs ity of mcg/actuati 00:00: every 6 [place] on inhaler 00 (six) Medical hours as Branch needed for Shortness of Breath. doxylamine- Yes [id number] Doxylamine [facility] pyridoxine, 02-07 10 ity of [...] mg (4 tablets) per day). albuterol Yes [id number] 2{puff} Inhale 2 [facility] 90 7-08 Puffs ity of mcg/actuati 00:00: every 6 [place] on inhaler 00 (six) Medical hours as Branch needed for Shortness of Breath. doxylamine- Yes [id number] Doxylamine [facility] pyridoxine, 02-07 10 ity of [...] mg (4 tablets) per day). albuterol Yes [id number] 2{puff} Inhale 2 [facility] 90 7-08 Puffs ity of mcg/actuati 00:00: every 6 [place] on inhaler 00 (six) Medical hours as Branch needed for Shortness of Breath. doxylamine- Yes [id number] Doxylamine [facility] pyridoxine, 02-07 10 ity of [...] mg (4 tablets) per day). albuterol Yes [id number] 2{puff} Inhale 2 [facility] 90 7-08 Puffs ity of mcg/actuati 00:00: every 6 [place] on inhaler 00 (six) Medical hours as Branch needed for Shortness of Breath. doxylamine- Yes [id number] Doxylamine [facility] pyridoxine, 7-08 10 ity of [...] mg (4 tablets) per day). albuterol Yes [id number] 2{puff} Inhale 2 [facility] 90 7-08 Puffs ity of mcg/actuati 00:00: every 6 [place] on inhaler 00 (six) Medical hours as Branch needed for Shortness of Breath. albuterol Yes [id number] 2{puff} Inhale 2 [facility] 90 7-08 Puffs ity of mcg/actuati 00:00: every 6 [place] on inhaler 00 (six) Medical hours as Branch needed for Shortness of Breath. albuterol Yes [id number] 2{puff} Inhale 2 [facility] 90 7-08 Puffs ity of mcg/actuati 00:00: every 6 [place] on inhaler 00 (six) Medical hours as Branch needed for Shortness of Breath. albuterol Yes [id number] 2{puff} Inhale 2 [facility] 90 7-08 Puffs ity of mcg/actuati 00:00: every 6 [place] on inhaler 00 (six) Medical hours as Branch needed for Shortness of Breath. albuterol Yes [id number] 2{puff} Inhale 2 [facility] 90 7-08 Puffs ity of mcg/actuati 00:00: every 6 [place] on inhaler 00 (six) Medical hours as Branch needed for Shortness of Breath. albuterol Yes [id number] 2{puff} Inhale 2 [facility] 90 7-08 Puffs ity of mcg/actuati 00:00: every 6 [place] on inhaler 00 (six) Medical hours as Branch needed for Shortness of Breath. albuterol Yes [id number] 2{puff} Inhale 2 [facility] 90 7-08 Puffs ity of mcg/actuati 00:00: every 6 [place] on inhaler 00 (six) Medical hours as Branch needed for Shortness of Breath. albuterol Yes [id number] 2{puff} Inhale 2 [facility] 90 7-08 Puffs ity of mcg/actuati 00:00: every 6 [place] on inhaler 00 (six) Medical hours as Branch needed for Shortness of Breath. albuterol Yes [id number] 2{puff} Inhale 2 [facility] 90 7-08 Puffs ity of mcg/actuati 00:00: every 6 [place] on inhaler 00 (six) Medical hours as Branch needed for Shortness of Breath. albuterol Yes [id number] 2{puff} Inhale 2 [facility] 90 7-08 Puffs ity of mcg/actuati 00:00: every 6 [place] on inhaler 00 (six) Medical hours as Branch needed for Shortness of Breath. albuterol Yes [id number] 2{puff} Inhale 2 [facility] 90 7-08 Puffs ity of mcg/actuati 00:00: every 6 [place] on inhaler 00 (six) Medical hours as Branch needed for Shortness of Breath. albuterol Yes [id number] 2{puff} Inhale 2 [facility] 90 7-08 Puffs ity of mcg/actuati 00:00: every 6 [place] on inhaler 00 (six) Medical hours as Branch needed for Shortness of Breath. doxylamine- Yes [id number] Doxylamine [facility] pyridoxine, 02-07 10 ity of [...] mg (4 tablets) per day). albuterol Yes [id number] 2{puff} Inhale 2 [facility] 90 7-08 Puffs ity of mcg/actuati 00:00: every 6 [place] [facility] on inhaler 00 (six) Medical hours as Branch needed for Shortness of Breath. doxylamine Yes [id number] Doxylamine [facility] pyridoxine, 02-07 10 ity of [...] mg (4 tablets) per day). albuterol Yes [id number] 2{puff} Inhale 2 [facility] 90 7-08 Puffs ity of mcg/actuati 00:00: every 6 [place] on inhaler 00 (six) Medical hours as Branch needed for Shortness of Breath. doxylamine- Yes [id number] Doxylamine [facility] pyridoxine, 02-07 10 ity of [...] mg (4 tablets) per day). albuterol Yes [id number] 2{puff} Inhale 2 [facility] 90 7-08 Puffs ity of mcg/actuati 00:00: every 6 [place] on inhaler 00 (six) Medical hours as Branch needed for Shortness of Breath. doxylamine- Yes [id number] Doxylamine [facility] pyridoxine, 02-07 10 ity of [...] mg (4 tablets) per day). albuterol Yes [id number] 2{puff} Inhale 2 [facility] 90 7-08 Puffs ity of mcg/actuati 00:00: every 6 [place] on inhaler 00 (six) Medical hours as Branch needed for Shortness of Breath. doxylamine- Yes [id number] Doxylamine [facility] pyridoxine, 02-07 10 ity of [...] mg (4 tablets) per day). albuterol Yes [id number] 2{puff} Inhale 2 [facility] 90 7-08 Puffs ity of mcg/actuati 00:00: every 6 [place] [facility] on inhaler 00 (six) Medical hours as Branch needed for Shortness of Breath. doxylamine- Yes [id number] Doxylamine [facility] pyridoxine, 02-07 10 ity of [...] mg (4 tablets) per day). albuterol Yes [id number] 2{puff} Inhale 2 [facility] 90 7-08 Puffs ity of mcg/actuati 00:00: every 6 [place] [facility] on inhaler 00 (six) Medical hours as Branch needed for Shortness of Breath. doxylamine- Yes [id number] Doxylamine [facility] pyridoxine, 02-07 10 ity of [...] ine 40 mg (4 tablets) per day). doxylamine- 2021- No [id number] Doxylamine [facility] pyridoxine, 02-07 10- 10 ity of vit B6, 00:00: 00:00 mg/pyridox [facility] (DICLEGIS) 00 :00 ine 10 mg Medi rosa isela 10-10 [...] ine 40 mg (4 tablets) per day). doxylamine- 2021- No [id number] Doxylamine [facility] pyridoxine, 02-07 10 ity of vit B6, 00:00: 00:00 mg/pyridox [facility] (DICLEGIS) 00 :00 ine 10 mg Medi rosa isela 10-10 [...] ine 40 mg (4 tablets) per day). doxylamine- 2021- No [id number] Doxylamine [facility] pyridoxine, 02-07 10 ity of vit B6, 00:00: 00:00 mg/pyridox [facility] (DICLEGIS) 00 :00 ine 10 mg Medi rosa isela 10-10 [...] ine 40 mg (4 tablets) per day). doxylamine2021- No [id number] Doxylamine [facility] pyridoxine, 02-07 10 ity of vit B6, 00:00: 00:00 mg/pyridox [facility] (DICLEGIS) 00 :00 ine 10 mg Medi rosa isela 10-10 [...] ine 40 mg (4 tablets) per day). aspirin 81 2021-0 Yes [id number] 81mg Take 1 [facility] mg EC 7-07 tablet by [facility] of tablet 00:00: mouth [place] 00 daily. [facility] aspirin 81 2021-0 Yes [id number] 81mg Take 1 [facility] mg EC 7-07 tablet by ity of tablet 00:00: mouth [place] 00 daily. [facility] aspirin 81 2021-0 Yes [id number] 81mg Take 1 [facility] mg EC 7-07 tablet by ity of tablet 00:00: mouth [place] 00 daily. [facility] aspirin 81 0 Yes [id number] 81mg Take 1 [facility] mg EC 7-07 tablet by ity of tablet 00:00: mouth [place] 00 daily. [facility] aspirin 81 2021-0 Yes [id number] 81mg Take 1 [facility] mg EC 7-07 tablet by ity of tablet 00:00: mouth [place] 00 daily. [facility] aspirin 81 2021-0 Yes [id number] 81mg Take 1 [facility] mg EC 7-07 tablet by ity of tablet 00:00: mouth [place] 00 daily. [facility] aspirin 81 2021-0 Yes [id number] 81mg Take 1 [facility] mg EC 7-07 tablet by ity of tablet 00:00: mouth [place] 00 daily. [facility] aspirin 81 2021-0 Yes [id number] 81mg Take 1 [facility] mg EC 7-07 tablet by ity of tablet 00:00: mouth [place] 00 daily. [facility] aspirin 81 2021-0 Yes [id number] 81mg Take 1 [facility] mg EC 7-07 tablet by ity of tablet 00:00: mouth [place] 00 daily. [facility] aspirin 81 2021-0 Yes [id number] 81mg Take 1 [facility] mg EC 7-07 tablet by ity of tablet 00:00: mouth [place] 00 daily. [facility] aspirin 81 2022-0 Yes [id number] 81mg Take 1 [facility] mg EC 7-07 tablet by ity of tablet 00:00: mouth [place] 00 daily. [facility] aspirin 81 2021-0 Yes [id number] 81mg Take 1 [facility] mg EC 7-07 tablet by ity of tablet 00:00: mouth [place] 00 daily. [facility] aspirin 81 2021-0 Yes [id number] 81mg Take 1 [facility] mg EC 7-07 tablet by ity of tablet 00:00: mouth [place] 00 daily. [facility] aspirin 81 2021-0 Yes [id number] 81mg Take 1 [facility] mg EC 7-07 tablet by ity of tablet 00:00: mouth [place] 00 daily. [facility] aspirin 81 2021-0 Yes [id number] 81mg Take 1 [facility] mg EC 7-07 tablet by ity of tablet 00:00: mouth [place] 00 daily. [facility] aspirin 81 0 Yes [id number] 81mg Take 1 [facility] mg EC 7-07 tablet by ity of tablet 00:00: mouth [place] 00 daily. [facility] aspirin 81 0 Yes [id number] 81mg Take 1 [facility] mg EC 7-07 tablet by ity of tablet 00:00: mouth [place] 00 daily. [facility] aspirin 81 0 Yes [id number] 81mg Take 1 [facility] mg EC 7-07 tablet by ity of tablet 00:00: mouth [place] 00 daily. [facility] aspirin 81 2021-0 Yes [id number] 81mg Take 1 [facility] mg EC 7-07 tablet by ity of tablet 00:00: mouth [place] 00 daily. [facility] aspirin 81 2021-0 Yes [id number] 81mg Take 1 [facility] mg EC 7-07 tablet by ity of tablet 00:00: mouth [place] 00 daily. [facility] aspirin 81 2021-0 Yes [id number] 81mg Take 1 [facility] mg EC 7-07 tablet by ity of tablet 00:00: mouth [place] 00 daily. [facility] aspirin 81 2021-0 Yes [id number] 81mg Take 1 [facility] mg EC 7-07 tablet by ity of tablet 00:00: mouth [place] 00 daily. [facility] aspirin 81 2021-0 Yes [id number] 81mg Take 1 [facility] mg EC 7-07 tablet by ity of tablet 00:00: mouth [place] 00 daily. [facility] aspirin 81 2021-0 Yes [id number] 81mg Take 1 [facility] mg EC 7-07 tablet by ity of tablet 00:00: mouth [place] 00 daily. [facility] aspirin 81 2021-0 Yes [id number] 81mg Take 1 [facility] mg EC 7-07 tablet by ity of tablet 00:00: mouth [place] 00 daily. [facility] aspirin 81 2021-0 Yes [id number] 81mg Take 1 [facility] mg EC 7-07 tablet by ity of tablet 00:00: mouth [place] 00 daily. [facility] aspirin 81 2021-0 Yes [id number] 81mg Take 1 [facility] mg EC 7-07 tablet by ity of tablet 00:00: mouth [place] 00 daily. [facility] aspirin 81 2021-0 Yes [id number] 81mg Take 1 [facility] mg EC 7-07 tablet by ity of tablet 00:00: mouth [place] 00 daily. [facility] aspirin 81 2021-0 Yes [id number] 81mg Take 1 [facility] mg EC 7-07 tablet by ity of tablet 00:00: mouth [place] 00 daily. [facility] aspirin 81 2021-0 Yes [id number] 81mg Take 1 [facility] mg EC 7-07 tablet by ity of tablet 00:00: mouth [place] 00 daily. [facility] aspirin 81 2021-0 Yes [id number] 81mg Take 1 [facility] mg EC 7-07 tablet by ity of tablet 00:00: mouth [place] 00 daily. [facility] aspirin 81 2021-0 Yes [id number] 81mg Take 1 [facility] mg EC 7-07 tablet by ity of tablet 00:00: mouth [place] 00 daily. [facility] aspirin 81 2021-0 Yes [id number] 81mg Take 1 [facility] mg EC 7-07 tablet by ity of tablet 00:00: mouth [place] 00 daily. [facility] aspirin 81 2021-0 Yes [id number] 81mg Take 1 [facility] mg EC 7-07 tablet by ity of tablet 00:00: mouth [place] 00 daily. [facility] aspirin 81 2021-0 Yes [id number] 81mg Take 1 [facility] mg EC 7-07 tablet by ity of tablet 00:00: mouth [place] 00 daily. [facility] aspirin 81 2021-0 Yes [id number] 81mg Take 1 [facility] mg EC 7-07 tablet by ity of tablet 00:00: mouth [place] 00 daily. [facility] aspirin 81 2021-0 Yes [id number] 81mg Take 1 [facility] mg EC 7-07 tablet by ity of tablet 00:00: mouth [place] 00 daily. [facility] aspirin 81 2021-0 Yes [id number] 81mg Take 1 [facility] mg EC 7-07 tablet by ity of tablet 00:00: mouth [place] 00 daily. [facility] aspirin 81 2021-0 Yes [id number] 81mg Take 1 [facility] mg EC 7-07 tablet by ity of tablet 00:00: mouth [place] 00 daily. [facility] aspirin 81 2021-0 Yes [id number] 81mg Take 1 [facility] mg EC 7-07 tablet by ity of tablet 00:00: mouth [place] 00 daily. [facility] aspirin 81 2021-0 Yes [id number] 81mg Take 1 [facility] mg EC 7-07 tablet by ity of tablet 00:00: mouth [place] 00 daily. [facility] aspirin 81 2021-0 Yes [id number] 81mg Take 1 [facility] mg EC 7-07 tablet by ity of tablet 00:00: mouth [place] 00 daily. [facility] aspirin 81 2021-0 Yes [id number] 81mg Take 1 [facility] mg EC 7-07 tablet by ity of tablet 00:00: mouth [place] 00 daily. [facility] aspirin 81 2021-0 Yes [id number] 81mg Take 1 [facility] mg EC 7-07 tablet by ity of tablet 00:00: mouth [place] 00 daily. [facility] aspirin 81 2021-0 Yes [id number] 81mg Take 1 [facility] mg EC 7-07 tablet by ity of tablet 00:00: mouth [place] 00 daily. [facility] Prenat Vit 2021-0 Yes [id number] 1{packe Take 1 [facility] Comb.10-Iro 6-27 t} Packet by ity of n-FA-DHA 00:00: mouth [place] (VITAFOL-OB 00 daily. Medica l +DHA) Branch 65-1-250 mg combo pack Prenat Vit Yes [id number] 1{packe Take 1 [facility] Comb.10-Iro 6-27 t} Packet by ity of n-FA-DHA 00:00: mouth [place] (VITAFOL-OB 00 daily. Medica l +DHA) Branch 65-1-250 mg combo pack Prenat Vit Yes [id number] 1{packe Take 1 [facility] Comb.10-Iro 6-27 t} Packet by ity of n-FA-DHA 00:00: mouth [place] (VITAFOL-OB 00 daily. Medica l +DHA) Branch 65-1-250 mg combo pack Prenat Vit 2022-0 Yes [id number] 1{packe Take 1 [facility] Comb.10-Iro 6-27 t} Packet by ity of n-FA-DHA 00:00: mouth [place] (VITAFOL-OB 00 daily. Medica l +DHA) Branch 65-1-250 mg combo pack Prenat Vit 2022-0 Yes [id number] 1{packe Take 1 [facility] Comb.10-Iro 6-27 t} Packet by ity of n-FA-DHA 00:00: mouth [place] (VITAFOL-OB 00 daily. Medica l +DHA) Branch 65-1-250 mg combo pack Prenat Vit 2022-0 Yes [id number] 1{packe Take 1 [facility] Comb.10-Iro 6-27 t} Packet by ity of n-FA-DHA 00:00: mouth [place] (VITAFOL-OB 00 daily. Medica l +DHA) Branch 65-1-250 mg combo pack Prenat Vit 2022-0 Yes [id number] 1{packe Take 1 [facility] Comb.10-Iro 6-27 t} Packet by ity of n-FA-DHA 00:00: mouth [place] (VITAFOL-OB 00 daily. Medica l +DHA) Branch 65-1-250 mg combo pack Prenat Vit 2022-0 Yes [id number] 1{packe Take 1 [facility] Comb.10-Iro 6-27 t} Packet by ity of n-FA-DHA 00:00: mouth [place] (VITAFOL-OB 00 daily. Medica l +DHA) Branch 65-1-250 mg combo pack Prenat Vit 2022-0 Yes [id number] 1{packe Take 1 [facility] Comb.10-Iro 6-27 t} Packet by ity of n-FA-DHA 00:00: mouth [place] (VITAFOL-OB 00 daily. Medica l +DHA) Branch 65-1-250 mg combo pack Prenat Vit 2022-0 Yes [id number] 1{packe Take 1 [facility] Comb.10-Iro 6-27 t} Packet by ity of n-FA-DHA 00:00: mouth [place] (VITAFOL-OB 00 daily. Medica l +DHA) Branch 65-1-250 mg combo pack Prenat Vit 2022-0 Yes [id number] 1{packe Take 1 [facility] Comb.10-Iro 6-27 t} Packet by ity of n-FA-DHA 00:00: mouth [place] (VITAFOL-OB 00 daily. Medica l +DHA) Branch 65-1-250 mg combo pack Prenat Vit 2022-0 Yes [id number] 1{packe Take 1 [facility] Comb.10-Iro 6-27 t} Packet by ity of n-FA-DHA 00:00: mouth [place] (VITAFOL-OB 00 daily. Medica l +DHA) Branch 65-1-250 mg combo pack Prenat Vit 2022-0 Yes [id number] 1{packe Take 1 [facility] Comb.10-Iro 6-27 t} Packet by ity of n-FA-DHA 00:00: mouth [place] (VITAFOL-OB 00 daily. Medica l +DHA) Branch 65-1-250 mg combo pack Prenat Vit 2022-0 Yes [id number] 1{packe Take 1 [facility] Comb.10-Iro 6-27 t} Packet by ity of n-FA-DHA 00:00: mouth [place] (VITAFOL-OB 00 daily. Medica l +DHA) Branch 65-1-250 mg combo pack Prenat Vit 2022-0 Yes [id number] 1{packe Take 1 [facility] Comb.10-Iro 6-27 t} Packet by ity of n-FA-DHA 00:00: mouth [place] (VITAFOL-OB 00 daily. Medica l +DHA) Branch 65-1-250 mg combo pack Prenat Vit 2022-0 Yes [id number] 1{packe Take 1 [facility] Comb.10-Iro 6-27 t} Packet by ity of n-FA-DHA 00:00: mouth [place] (VITAFOL-OB 00 daily. Medica l +DHA) Branch 65-1-250 mg combo pack Prenat Vit 2022-0 Yes [id number] 1{packe Take 1 [facility] Comb.10-Iro 6-27 t} Packet by ity of n-FA-DHA 00:00: mouth [place] (VITAFOL-OB 00 daily. Medica l +DHA) Branch 65-1-250 mg combo pack Prenat Vit 2022-0 Yes [id number] 1{packe Take 1 [facility] Comb.10-Iro 6-27 t} Packet by ity of n-FA-DHA 00:00: mouth [place] (VITAFOL-OB 00 daily. Medica l +DHA) Branch 65-1-250 mg combo pack Prenat Vit 2022-0 Yes [id number] 1{packe Take 1 [facility] Comb.10-Iro 6-27 t} Packet by ity of n-FA-DHA 00:00: mouth [place] (VITAFOL-OB 00 daily. Medica l +DHA) Branch 65-1-250 mg combo pack Prenat Vit 2022-0 Yes [id number] 1{packe Take 1 [facility] Comb.10-Iro 6-27 t} Packet by ity of n-FA-DHA 00:00: mouth [place] (VITAFOL-OB 00 daily. Medica l +DHA) Branch 65-1-250 mg combo pack Prenat Vit 2022-0 Yes [id number] 1{packe Take 1 [facility] Comb.10-Iro 6-27 t} Packet by ity of n-FA-DHA 00:00: mouth [place] (VITAFOL-OB 00 daily. Medica l +DHA) Branch 65-1-250 mg combo pack Prenat Vit 2022-0 Yes [id number] 1{packe Take 1 [facility] Comb.10-Iro 6-27 t} Packet by ity of n-FA-DHA 00:00: mouth [place] (VITAFOL-OB 00 daily. Medica l +DHA) Branch 65-1-250 mg combo pack Prenat Vit 2022-0 Yes [id number] 1{packe Take 1 [facility] Comb.10-Iro 6-27 t} Packet by ity of n-FA-DHA 00:00: mouth [place] (VITAFOL-OB 00 daily. Medica l +DHA) Branch 65-1-250 mg combo pack Prenat Vit 2022-0 Yes [id number] 1{packe Take 1 [facility] Comb.10-Iro 6-27 t} Packet by ity of n-FA-DHA 00:00: mouth [place] (VITAFOL-OB 00 daily. Medica l +DHA) Branch 65-1-250 mg combo pack Prenat Vit 2022-0 Yes [id number] 1{packe Take 1 [facility] Comb.10-Iro 6-27 t} Packet by ity of n-FA-DHA 00:00: mouth [place] (VITAFOL-OB 00 daily. Medica l +DHA) Branch 65-1-250 mg combo pack Prenat Vit 2022-0 Yes [id number] 1{packe Take 1 [facility] Comb.10-Iro 6-27 t} Packet by ity of n-FA-DHA 00:00: mouth [place] (VITAFOL-OB 00 daily. Medica l +DHA) Branch 65-1-250 mg combo pack Prenat Vit 2022-0 Yes [id number] 1{packe Take 1 [facility] Comb.10-Iro 6-27 t} Packet by ity of n-FA-DHA 00:00: mouth [place] (VITAFOL-OB 00 daily. Medica l +DHA) Branch 65-1-250 mg combo pack Prenat Vit 2022-0 Yes [id number] 1{packe Take 1 [facility] Comb.10-Iro 6-27 t} Packet by ity of n-FA-DHA 00:00: mouth [place] (VITAFOL-OB 00 daily. Medica l +DHA) Branch 65-1-250 mg combo pack Prenat Vit 2022-0 Yes [id number] 1{packe Take 1 [facility] Comb.10-Iro 6-27 t} Packet by ity of n-FA-DHA 00:00: mouth [place] (VITAFOL-OB 00 daily. Medica l +DHA) Branch 65-1-250 mg combo pack Prenat Vit 2022-0 Yes [id number] 1{packe Take 1 [facility] Comb.10-Iro 6-27 t} Packet by ity of n-FA-DHA 00:00: mouth [place] (VITAFOL-OB 00 daily. Medica l +DHA) Branch 65-1-250 mg combo pack Prenat Vit 2022-0 Yes [id number] 1{packe Take 1 Univers Comb.10-Iro 6-27 t} Packet by ity of n-FA-DHA 00:00: mouth [place] (VITAFOL-OB 00 daily. Medica l +DHA) Branch 65-1-250 mg combo pack Prenat Vit 2022-0 Yes [id number] 1{packe Take 1 Univers Comb.10-Iro 6-27 t} Packet by ity of n-FA-DHA 00:00: mouth [place] (VITAFOL-OB 00 daily. Medica l +DHA) Branch 65-1-250 mg combo pack Prenat Vit 2022-0 Yes [id number] 1{packe Take 1 Univers Comb.10-Iro 6-27 t} Packet by ity of n-FA-DHA 00:00: mouth [place] (VITAFOL-OB 00 daily. Medica l +DHA) Branch 65-1-250 mg combo pack Prenat Vit 2022-0 Yes [id number] 1{packe Take 1 Univers Comb.10-Iro 6-27 t} Packet by ity of n-FA-DHA 00:00: mouth [place] (VITAFOL-OB 00 daily. Medica l +DHA) Branch 65-1-250 mg combo pack Prenat Vit 2022-0 Yes [id number] 1{packe Take 1 Univers Comb.10-Iro 6-27 t} Packet by ity of n-FA-DHA 00:00: mouth [place] (VITAFOL-OB 00 daily. Medica l +DHA) Branch 65-1-250 mg combo pack Prenat Vit 2022-0 Yes [id number] 1{packe Take 1 Univers Comb.10-Iro 6-27 t} Packet by ity of n-FA-DHA 00:00: mouth [place] (VITAFOL-OB 00 daily. Medica l +DHA) Branch 65-1-250 mg combo pack Prenat Vit 2022-0 Yes [id number] 1{packe Take 1 Univers Comb.10-Iro 6-27 t} Packet by ity of n-FA-DHA 00:00: mouth [place] (VITAFOL-OB 00 daily. Medica l +DHA) Branch 65-1-250 mg combo pack Prenat Vit 2022-0 Yes [id number] 1{packe Take 1 Univers Comb.10-Iro 6-27 t} Packet by ity of n-FA-DHA 00:00: mouth [place] (VITAFOL-OB 00 daily. Medica l +DHA) Branch 65-1-250 mg combo pack Prenat Vit 2022-0 Yes [id number] 1{packe Take 1 Univers Comb.10-Iro 6-27 t} Packet by ity of n-FA-DHA 00:00: mouth [place] (VITAFOL-OB 00 daily. Medica l +DHA) Branch 65-1-250 mg combo pack Prenat Vit 2022-0 Yes [id number] 1{packe Take 1 Univers Comb.10-Iro 6-27 t} Packet by ity of n-FA-DHA 00:00: mouth [place] (VITAFOL-OB 00 daily. Medica l +DHA) Branch 65-1-250 mg combo pack Prenat Vit 2022-0 Yes [id number] 1{packe Take 1 Univers Comb.10-Iro 6-27 t} Packet by ity of n-FA-DHA 00:00: mouth [place] (VITAFOL-OB 00 daily. Medica l +DHA) Branch 65-1-250 mg combo pack Prenat Vit 2022-0 Yes [id number] 1{packe Take 1 Univers Comb.10-Iro 6-27 t} Packet by ity of n-FA-DHA 00:00: mouth [place] (VITAFOL-OB 00 daily. Medica l +DHA) Branch 65-1-250 mg combo pack Prenat Vit 2022-0 Yes [id number] 1{packe Take 1 Univers Comb.10-Iro 6-27 t} Packet by ity of n-FA-DHA 00:00: mouth [place] (VITAFOL-OB 00 daily. Medica l +DHA) Branch 65-1-250 mg combo pack Prenat Vit 2022-0 Yes [id number] 1{packe Take 1 Univers Comb.10-Iro 6-27 t} Packet by ity of n-FA-DHA 00:00: mouth [place] (VITAFOL-OB 00 daily. Medica l +DHA) Branch 65-1-250 mg combo pack Prenat Vit 2022-0 Yes [id number] 1{packe Take 1 Univers Comb.10-Iro 6-27 t} Packet by ity of n-FA-DHA 00:00: mouth [place] (VITAFOL-OB 00 daily. Medica l +DHA) Branch 65-1-250 mg combo pack Immunizations Ordered Filled Immunization Date Status Comments [facility] e Immunization Name Name Influenza Virus 2022-05-02 [...] Universit y of Vaccine Quad IM, 00:00:00 [place] [facility] Free 6 MO-64 YRS TDAP 2021-01-29 Completed University of 00:00:00 [facility] TDAP 2021-01-29 Completed University of 00:00:00 [facility] TDAP 2021-01-29 Completed University of 00:00:00 [facility] TDAP 2021-01-29 Completed University of 00:00:00 [facility] TDAP 2021-01-29 Completed University of 00:00:00 [facility] TDAP 2021-01-29 Completed University of 00:00:00 [facility] TDAP 2021-01-29 Completed University of 00:00:00 [facility] TDAP 2021-01-29 Completed University of 00:00:00 [facility] TDAP 2021-01-29 Completed University of 00:00:00 [facility] TDAP 2021-01-29 Completed University of 00:00:00 [facility] TDAP 2021-01-29 Completed University of 00:00:00 [facility] TDAP 2021-01-29 Completed University of 00:00:00 [facility] TDAP 2021-01-29 Completed University of 00:00:00 [facility] TDAP 2021-01-29 Completed University of 00:00:00 [facility] TDAP 2021-01-29 Completed University of 00:00:00 [facility] TDAP 2021-01-29 Completed University of 00:00:00 [facility] TDAP 2021-01-29 Completed University of 00:00:00 [facility] TDAP 2021-01-29 Completed University of 00:00:00 [facility] TDAP 2021-01-29 Completed University of 00:00:00 [facility] TDAP 2021-01-29 Completed University of 00:00:00 [facility] TDAP 2021-01-29 Completed University of 00:00:00 [facility] TDAP 2021-01-29 Completed University of 00:00:00 [facility] TDAP 2021-01-29 Completed University of 00:00:00 [facility] TDAP 2021-01-29 Completed University of 00:00:00 [facility] TDAP 2021-01-29 Completed University of 00:00:00 [facility] TDAP 2021-01-29 Completed University of 00:00:00 [facility] TDAP 2021-01-29 Completed University of 00:00:00 [facility] TDAP 2021-01-29 Completed University of 00:00:00 [facility] TDAP 2021-01-29 Completed University of 00:00:00 [facility] TDAP 2021-01-29 Completed University of 00:00:00 [facility] TDAP 2021-01-29 Completed University of 00:00:00 [facility] TDAP 2021-01-29 Completed University of 00:00:00 [facility] TDAP 2021-01-29 Completed University of 00:00:00 [facility] TDAP 2021-01-29 Completed University of 00:00:00 [facility] TDAP 2021-01-29 Completed University of 00:00:00 [facility] TDAP 2021-01-29 Completed University of 00:00:00 [facility] TDAP 2021-01-29 Completed University of 00:00:00 [facility] TDAP 2021-01-29 Completed University of 00:00:00 [facility] TDAP 2021-01-29 Completed University of 00:00:00 [facility] TDAP 2021-01-29 Completed University of 00:00:00 [facility] TDAP 2021-01-29 Completed University of 00:00:00 [facility] TDAP 2021-01-29 Completed University of 00:00:00 [facility] TDAP 2021-01-29 Completed University of 00:00:00 [facility] TDAP 2021-01-29 Completed University of 00:00:00 [facility] TDAP 2021-01-29 Completed University of 00:00:00 [facility] Influenza Virus 2018-09-27 Completed Universit y of Vaccine Quad .5 mL 00:00:00 [facility] 6+ [place] Branch Influenza Virus 2018-09-27 Completed Universit y of Vaccine [facility] .5 mL 00:00:00 [facility] 6+ [place] Branch Influenza Virus 2018-09-27 Completed Universit y of Vaccine [facility] .5 mL 00:00:00 [facility] 6+ [place] Branch Influenza Virus 2018-09-27 Completed Universit y of Vaccine Quad .5 mL 00:00:00 [facility] 6+ MO Branch Influenza Virus 2018-09-27 Completed Universit y of Vaccine Quad .5 mL 00:00:00 [facility] 6+ [place] Branch Influenza Virus 2018-09-27 Completed Universit y of Vaccine Quad .5 mL 00:00:00 [facility] 6+ [place] Branch Influenza Virus 2018-09-27 Completed Universit y of Vaccine [facility] .5 mL 00:00:00 [facility] 6+ [place] Branch Influenza Virus 2018-09-27 Completed Universit y of Vaccine [facility] .5 mL 00:00:00 [facility] 6+ [place] Branch Influenza Virus 2018-09-27 Completed Universit y of Vaccine Quad .5 mL 00:00:00 [facility] 6+ [place] Branch Influenza Virus 2018-09-27 Completed Universit y of Vaccine Quad .5 mL 00:00:00 [place] [id number] Branch Influenza Virus 2018-09-27 Completed Universit y of Vaccine Quad .5 mL 00:00:00 [facility] 6+ [place] Branch Influenza Virus 2018-09-27 Completed Universit y of Vaccine Quad .5 mL 00:00:00 [facility] 6+ [place] Branch Influenza Virus 2018-09-27 Completed Universit y of Vaccine Quad .5 mL 00:00:00 [place] [facility] 6+ [place] Branch Influenza Virus 2018-09-27 Completed Universit y of Vaccine Quad .5 mL 00:00:00 [facility] 6+ [place] Branch Influenza Virus 2018-09-27 Completed Universit y of Vaccine Quad .5 mL 00:00:00 [place] [facility] 6+ MO Branch Influenza Virus 2018-09-27 Completed Universit y of Vaccine Quad .5 mL 00:00:00 [facility] 6+ [place] Branch Influenza Virus 2018-09-27 Completed [...] y of Vaccine Quad .5 mL 00:00:00 [place] [facility] 6+ MO Branch Influenza Virus 2018-09-27 Completed Universit y of Vaccine Quad .5 mL 00:00:00 [place] [facility] 6+ MO [facility] Influenza Virus 2018-09-27 Completed Universit y of Vaccine Quad .5 mL 00:00:00 [place] [facility] 6+ [place] [facility] Influenza Virus 2018-09-27 Completed Universit y of Vaccine Quad .5 mL 00:00:00 [place] [facility] 6+ MO Branch Influenza Virus 2018-09-27 Completed Universit y of Vaccine Quad .5 mL 00:00:00 [place] [facility] 6+ MO Branch Influenza Virus [...] y of Vaccine Quad .5 mL 00:00:00 [place] [facility] 6+ [place] [facility] Influenza Virus 2018-09-27 Completed Universit y of Vaccine Quad .5 mL 00:00:00 [place] [facility] 6+ MO Branch Influenza Virus 2018-09-27 Completed Universit y of Vaccine Quad .5 mL 00:00:00 [place] [facility] 6+ MO [facility] Influenza Virus 2018-09-27 Completed Universit y of Vaccine Quad .5 mL 00:00:00 [place] [facility] 6+ MO Branch Influenza Virus 2018-09-27 Completed Universit y of Vaccine Quad .5 mL 00:00:00 [place] [facility] 6+ [place] [facility] Influenza Virus 2018-09-27 Completed [facility]it y of Vaccine Quad .5 mL 00:00:00 [place] [facility] 6+ [place] Branch Influenza Virus 2016-10-20 Completed Universit y of Vaccine Quad IM 3+ 00:00:00 [facility] Influenza Virus 2016-10-20 Completed Universit y of Vaccine Quad IM 3+ 00:00:00 [facility] Influenza Virus 2016-10-20 Completed Universit y of Vaccine [facility] IM 3+ 00:00:00 [facility] Influenza Virus 2016-10-20 Completed Universit y of Vaccine Quad IM 3+ 00:00:00 [facility] Influenza Virus 2016-10-20 Completed Universit y of Vaccine Quad IM 3+ 00:00:00 [facility] Influenza Virus 2016-10-20 Completed Universit y of Vaccine Quad IM 3+ 00:00:00 [facility] Influenza Virus 2016-10-20 Completed Universit y of Vaccine Quad IM 3+ 00:00:00 [facility] Influenza Virus 2016-10-20 Completed Universit y of Vaccine Quad IM 3+ 00:00:00 [facility] Influenza Virus 2016-10-20 Completed Universit y of Vaccine Quad IM 3+ 00:00:00 [facility] Influenza Virus 2016-10-20 Completed Universit y of Vaccine Quad IM 3+ 00:00:00 [facility] Influenza Virus 2016-10-20 Completed Universit y of Vaccine Quad IM 3+ 00:00:00 [facility] Influenza Virus 2016-10-20 Completed Universit y of Vaccine Quad IM 3+ 00:00:00 [facility] Influenza Virus 2016-10-20 Completed Universit y of Vaccine Quad IM 3+ 00:00:00 [facility] Influenza Virus 2016-10-20 Completed Universit y of Vaccine Quad IM 3+ 00:00:00 [facility] Influenza Virus 2016-10-20 Completed Universit y of Vaccine Quad IM 3+ 00:00:00 [facility] Influenza Virus 2016-10-20 Completed Universit y of Vaccine Quad IM 3+ 00:00:00 [facility] Influenza Virus 2016-10-20 Completed Universit y of Vaccine Quad IM 3+ 00:00:00 [facility] Influenza Virus 2016-10-20 Completed Universit y of Vaccine Quad IM 3+ 00:00:00 [facility] Influenza Virus 2016-10-20 Completed Universit y of Vaccine Quad IM 3+ 00:00:00 [facility] Influenza Virus 2016-10-20 Completed Universit y of Vaccine Quad IM 3+ 00:00:00 [facility] Influenza Virus 2016-10-20 Completed Universit y of Vaccine Quad IM 3+ 00:00:00 [facility] Influenza Virus 2016-10-20 Completed Universit y of Vaccine Quad IM 3+ 00:00:00 [facility] Influenza Virus 2016-10-20 Completed Universit y of Vaccine Quad IM 3+ 00:00:00 [facility] Influenza Virus 2016-10-20 Completed Universit y of Vaccine Quad IM 3+ 00:00:00 [facility] Influenza Virus 2016-10-20 Completed Universit y of Vaccine Quad IM 3+ 00:00:00 [facility] Influenza Virus 2016-10-20 Completed Universit y of Vaccine Quad IM 3+ 00:00:00 [facility] Influenza Virus 2016-10-20 Completed Universit y of Vaccine Quad IM 3+ 00:00:00 [facility] Influenza Virus 2016-10-20 Completed Universit y of Vaccine Quad IM 3+ 00:00:00 [facility] Influenza Virus 2016-10-20 Completed Universit y of Vaccine Quad IM 3+ 00:00:00 [facility] Influenza Virus 2016-10-20 Completed Universit y of Vaccine Quad IM 3+ 00:00:00 [facility] Influenza Virus 2016-10-20 Completed Universit y of Vaccine Quad IM 3+ 00:00:00 [facility] Influenza Virus 2016-10-20 Completed Universit y of Vaccine [facility] IM 3+ 00:00:00 [facility] Influenza Virus 2016-10-20 Completed Universit y of Vaccine Quad IM 3+ 00:00:00 [facility] Influenza Virus 2016-10-20 Completed Universit y of Vaccine Quad IM 3+ 00:00:00 [facility] Influenza Virus 2016-10-20 Completed Universit y of Vaccine Quad IM 3+ 00:00:00 [facility] Influenza Virus 2016-10-20 Completed Universit y of Vaccine Quad IM 3+ 00:00:00 [facility] Influenza Virus 2016-10-20 Completed Universit y of Vaccine Quad IM 3+ 00:00:00 [facility] Influenza Virus 2016-10-20 Completed Universit y of Vaccine Quad IM 3+ 00:00:00 [facility] Influenza Virus 2016-10-20 Completed Universit y of Vaccine Quad IM 3+ 00:00:00 [facility] Influenza Virus 2016-10-20 Completed Universit y of Vaccine [facility] IM 3+ 00:00:00 [facility] Influenza Virus 2016-10-20 Completed Universit y of Vaccine Quad IM 3+ 00:00:00 [facility] Influenza Virus 2016-10-20 Completed Universit y of Vaccine Quad IM 3+ 00:00:00 [facility] Influenza Virus 2016-10-20 Completed Universit y of Vaccine Quad IM 3+ 00:00:00 [facility] Influenza Virus 2016-10-20 Completed Universit y of Vaccine [facility] IM 3+ 00:00:00 [facility] Influenza Virus 2016-10-20 Completed Universit y of Vaccine [facility] IM 3+ 00:00:00 [facility] TDAP 2015-01-29 Completed University of 00:00:00 [facility] TDAP 2015-01-29 Completed University of 00:00:00 [facility] TDAP 2015-01-29 Completed University of 00:00:00 [facility] TDAP 2015-01-29 Completed University of 00:00:00 [facility] TDAP 2015-01-29 Completed University of 00:00:00 [facility] TDAP 2015-01-29 Completed University of 00:00:00 [facility] TDAP 2015-01-29 Completed University of 00:00:00 [facility] TDAP 2015-01-29 Completed University of 00:00:00 [facility] TDAP 2015-01-29 Completed University of 00:00:00 [facility] TDAP 2015-01-29 Completed University of 00:00:00 [facility] TDAP 2015-01-29 Completed University of 00:00:00 [facility] TDAP 2015-01-29 Completed University of 00:00:00 [facility] TDAP 2015-01-29 Completed University of 00:00:00 [facility] TDAP 2015-01-29 Completed University of 00:00:00 [facility] TDAP 2015-01-29 Completed University of 00:00:00 [facility] TDAP 2015-01-29 Completed University of 00:00:00 [facility] TDAP 2015-01-29 Completed University of 00:00:00 [facility] TDAP 2015-01-29 Completed University of 00:00:00 [facility] TDAP 2015-01-29 Completed University of 00:00:00 [facility] TDAP 2015-01-29 Completed University of 00:00:00 [facility] TDAP 2015-01-29 Completed University of 00:00:00 [facility] TDAP 2015-01-29 Completed University of 00:00:00 [facility] TDAP 2015-01-29 Completed University of 00:00:00 [facility] TDAP 2015-01-29 Completed University of 00:00:00 [facility] TDAP 2015-01-29 Completed University of 00:00:00 [facility] TDAP 2015-01-29 Completed University of 00:00:00 [facility] TDAP 2015-01-29 Completed University of 00:00:00 [facility] TDAP 2015-01-29 Completed University of 00:00:00 [facility] TDAP 2015-01-29 Completed University of 00:00:00 [facility] TDAP 2015-01-29 Completed University of 00:00:00 [facility] TDAP 2015-01-29 Completed University of 00:00:00 [facility] TDAP 2015-01-29 Completed University of 00:00:00 [facility] TDAP 2015-01-29 Completed University of 00:00:00 [facility] TDAP 2015-01-29 Completed University of 00:00:00 [facility] TDAP 2015-01-29 Completed University of 00:00:00 [facility] TDAP 2015-01-29 Completed University of 00:00:00 [facility] TDAP 2015-01-29 Completed University of 00:00:00 [facility] TDAP 2015-01-29 Completed University of 00:00:00 [facility] TDAP 2015-01-29 Completed University of 00:00:00 [facility] TDAP 2015-01-29 Completed University of 00:00:00 [facility] TDAP 2015-01-29 Completed University of 00:00:00 [facility] TDAP 2015-01-29 Completed University of 00:00:00 [facility] TDAP 2015-01-29 Completed University of 00:00:00 [facility] TDAP 2015-01-29 Completed University of 00:00:00 [facility] TDAP 2015-01-29 Completed University of 00:00:00 [facility] HPV 2010-07-05 Completed University of 00:00:00 [facility] Influenza Virus 2010-07-05 Completed Universit y of Vaccine - Whole 00:00:00 [facility] HPV 2010-07-05 Completed University of 00:00:00 [facility] Influenza Virus 2010-07-05 Completed Universit y of Vaccine - Whole 00:00:00 [facility] HPV 2010-07-05 Completed University of 00:00:00 [facility] Influenza Virus 2010-07-05 Completed Universit y of Vaccine - Whole 00:00:00 [facility] HPV 2010-07-05 Completed University of 00:00:00 [facility] Influenza Virus 2010-07-05 Completed Universit y of Vaccine - Whole 00:00:00 [facility] HPV 2010-07-05 Completed University of 00:00:00 [facility] Influenza Virus 2010-07-05 Completed Universit y of Vaccine - Whole 00:00:00 [facility] HPV 2010-07-05 Completed University of 00:00:00 [facility] Influenza Virus 2010-07-05 Completed Universit y of Vaccine - Whole 00:00:00 [facility] HPV 2010-07-05 Completed University of 00:00:00 [facility] Influenza Virus 2010-07-05 Completed Universit y of Vaccine - Whole 00:00:00 [facility] HPV 2010-07-05 Completed University of 00:00:00 [facility] Influenza Virus 2010-07-05 Completed Universit y of Vaccine - Whole 00:00:00 [facility] HPV 2010-07-05 Completed University of 00:00:00 [facility] Influenza Virus 2010-07-05 Completed Universit y of Vaccine - Whole 00:00:00 [facility] HPV 2010-02-12 Completed University of 00:00:00 [facility] HPV 2010-02-12 Completed University of 00:00:00 [facility] HPV 2010-02-12 Completed University of 00:00:00 [facility] HPV 2010-02-12 Completed University of 00:00:00 [facility] HPV 2010-02-12 Completed University of 00:00:00 [facility] HPV 2010-02-12 Completed University of 00:00:00 [facility] HPV 2010-02-12 Completed University of 00:00:00 [facility] HPV 2010-02-12 Completed University of 00:00:00 [facility] HPV 2010-02-12 Completed University of 00:00:00 [facility] HPV 2009-12-14 Completed University of 00:00:00 [facility] HPV 2009-12-14 Completed University of 00:00:00 [facility] HPV 2009-12-14 Completed University of 00:00:00 [facility] HPV 2009-12-14 Completed University of 00:00:00 [facility] HPV 2009-12-14 Completed University of 00:00:00 [facility] HPV 2009-12-14 Completed University of 00:00:00 [facility] HPV 2009-12-14 Completed University of 00:00:00 [facility] HPV 2009-12-14 Completed University of 00:00:00 [facility] HPV 2009-12-14 Completed University of 00:00:00 [facility] Vital Signs Vital Name Observation Time Observation Value Comments Source Systolic blood 2022-05-23 13:46:00 128 mm[Hg] Univer sity of pressure [facility] Diastolic blood 2022-05-23 13:46:00 83 mm[Hg] Unive rsity of pressure [facility] Heart rate 2022-05-23 13:46:00 93 /min Universi ty of [facility] Body temperature 2022-05-23 13:46:00 36.89 Lien Univ ersity of [facility] Respiratory rate 2022-05-23 13:46:00 16 /min Univ ersity of [facility] Body height 2022-05-23 13:46:00 162.6 cm Universi ty of [facility] Body weight 2022-05-23 13:46:00 88.089 kg Universi ty of [facility] BMI 2022-05-23 13:46:00 33.33 kg/m2 Universi ty of [facility] Oxygen saturation in 2022-05-23 13:46:00 98 /min University of Arterial blood by [facility] Pulse oximetry Branch Systolic blood 2022-05-21 20:21:00 122 mm[Hg] Univer sity of pressure [facility] Diastolic blood 2022-05-21 20:21:00 80 mm[Hg] Unive rsity of pressure [facility] Body temperature 2022-05-21 20:21:00 36.83 Lien Univ ersity of [facility] Respiratory rate 2022-05-21 20:21:00 18 /min Univ ersity of [facility] Body height 2022-05-21 20:21:00 162.6 cm Universi ty of [facility] Body weight 2022-05-21 20:21:00 87.998 kg Universi ty of [facility] BMI 2022-05-21 20:21:00 33.30 kg/m2 Universi ty of [facility] Systolic blood 2022-05-16 14:24:00 113 mm[Hg] Univer sity of pressure [facility] Diastolic blood 2022-05-16 14:24:00 71 mm[Hg] Unive rsity of pressure [facility] Heart rate 2022-05-16 14:24:00 84 /min [facility] [facility] Body height 2022-05-16 14:24:00 162.6 cm [facility] Body weight 2022-05-16 14:24:00 90.266 kg [facility] BMI 2022-05-16 14:24:00 34.16 kg/m2 [facility] Oxygen saturation in 2022-05-16 14:24:00 98 /min University of Arterial blood by [facility] Pulse oximetry Branch Body weight 2022-05-16 13:20:00 90.266 kg [facility] BMI 2022-05-16 13:20:00 34.16 kg/m2 [facility] Systolic blood 2022-05-09 14:17:00 116 mm[Hg] [facility] Diastolic blood 2022-05-09 14:17:00 80 mm[Hg] [facility] [place] Heart rate 2022-05-09 14:17:00 79 /min [facility] Body temperature 2022-05-09 14:17:00 36.56 Lien [facility] Respiratory rate 2022-05-09 14:17:00 18 /min [facility] Body height 2022-05-09 14:17:00 162.6 cm [facility] Body weight 2022-05-09 14:17:00 88.451 kg [facility] BMI 2022-05-09 14:17:00 33.47 kg/m2 [facility] Systolic blood 2022-05-02 19:37:00 120 mm[Hg] [facility] Diastolic blood 2022-05-02 19:37:00 82 mm[Hg] [facility] Heart rate 2022-05-02 19:37:00 85 /min [facility] Body temperature 2022-05-02 19:37:00 36.67 Lien [facility] Respiratory rate 2022-05-02 19:37:00 18 /min [facility] Body height 2022-05-02 19:37:00 162.6 cm [facility] Body weight 2022-05-02 19:37:00 88.905 kg [facility] BMI 2022-05-02 19:37:00 33.64 kg/m2 [facility] Systolic blood 2022-04-25 14:49:00 116 mm[Hg] [facility] Diastolic blood 2022-04-25 14:49:00 76 mm[Hg] [facility] Heart rate 2022-04-25 14:49:00 77 /min [facility] Body temperature 2022-04-25 14:49:00 36.67 Lien [facility] Respiratory rate 2022-04-25 14:49:00 18 /min Univ [facility] Body weight 2022-04-25 14:49:00 88.27 kg [facility] [place] [facility] [place] BMI 2022-04-25 14:49:00 33.39 kg/m2 [facility] Systolic blood 2022-04-11 20:50:00 135 mm[Hg] [facility] Diastolic blood 2022-04-11 20:50:00 81 mm[Hg] [facility] [place] Heart rate 2022-04-11 20:50:00 84 /min [facility] Oxygen saturation in 2022-04-11 20:50:00 99 /min University Arterial blood by [facility] Pulse oximetry Branch Body height 2022-04-11 20:45:00 162.6 cm [facility] [place] Body weight 2022-04-11 20:45:00 86.637 kg [facility] BMI 2022-04-11 20:45:00 32.77 kg/m2 [facility] Body temperature 2022-04-11 20:18:00 37.22 Lien Univ [facility] Respiratory rate 2022-04-11 20:18:00 18 /min Univ [facility] Systolic blood 2022-04-11 19:39:00 116 mm[Hg] [facility] Diastolic blood 2022-04-11 19:39:00 75 mm[Hg] [facility] Heart rate 2022-04-11 19:39:00 90 /min [facility] [place] Body temperature 2022-04-11 19:39:00 37.06 Lien [facility] ersity of [facility] Respiratory rate 2022-04-11 19:39:00 18 /min [facility] [place] Body height 2022-04-11 19:39:00 162.6 cm [facility] [place] Body weight 2022-04-11 19:39:00 88.083 kg [facility] BMI 2022-04-11 19:39:00 33.33 kg/m2 [facility] Oxygen saturation in 2022-04-11 19:39:00 97 /min [facility] Arterial blood by [facility] Pulse oximetry Branch Systolic blood 2022-04-02 14:51:00 114 mm[Hg] Univer sity of pressure [facility] Diastolic blood 2022-04-02 14:51:00 73 mm[Hg] Unive rsity of pressure [facility] Heart rate 2022-04-02 14:51:00 82 /min [facility] Body temperature 2022-04-02 14:51:00 36.78 Lien [facility] ersity of [facility] Respiratory rate 2022-04-02 14:51:00 18 /min [facility] ersity of [facility] Body height 2022-04-02 14:51:00 162.6 cm [facility] [place] Body weight 2022-04-02 14:51:00 89.812 kg [facility] BMI 2022-04-02 14:51:00 33.99 kg/m2 [facility] Procedures Procedure Date / Time Performing Clinician Source Performed SECOND AND THIRD 2022-05-27 19:01:00 Rebekah Vaz [facility] TRIMESTER ULTRASOUND Medical [facility] EXTERNAL PROVIDER RECORDS 2022-05-20 05:01:00 Doctor Unassigned, [facility] [place] [facility] SECOND AND THIRD 2022-05-12 19:14:00 Rebekah Vaz [facility] TRIMESTER ULTRASOUND Medical [facility] URINE CULTURE 2022-05-02 21:31:00 Rebekah Vaz [place] [facility] FLU VACC (), 6 2022-05-02 19:55:18 Rebekah Vaz [facility] MO-64 YRS, .5ML, IM, QUAD Medica l Branch (FLUCELVAX) POCT URINALYSIS W/O 2022-05-02 00:00:00 Rebekah Vaz [facility] EXTERNAL PROVIDER RECORDS 2022-04-24 05:01:00 Doctor Krueger [facility] [place] [facility] [place] MEDICATION CORRESPONDENCE 2022-04-15 05:01:00 Doctor Evans [facility] [place] [facility] [place] URINALYSIS 2022-04-11 21:14:00 Rebekah Vaz [place] [facility] ADC CLC OR LCC ONLY - WET 2022-04-11 21:14:00 Rebekah Vaz [facility] CONSENT/REFUSAL FOR 2022-04-11 20:18:44 Doctor Krueger [facility] DIAGNOSIS AND TREATMENT [place] [facility] [place] AUTHORIZATION TO RELEASE 2022-04-02 05:01:00 Doctor Krueger [facility] PHI TO [facility] Medical [place] POCT URINALYSIS W/O 2022-04-02 00:00:00 Rebekah Vaz [facility] ORDER SELECTOR CLINIC ULTRASOUND 2022-02-06 05:01:00 Doctor Krueger [facility] Medical [place] Encounters Start End Encounter Admission Attending Care Care Encounter Source Date/Time Date/Time Type Type Clinicians Facility Department ID 2022-04-11 Outpatient X [facility] CHRISTOPHER [id number] Univers 19:02:10 ity of [facility] 2021-06-03 Outpatient [facility] [id number] Univers 18:52:17 ity of [facility] 2021-06-03 Outpatient P [facility] CHRISTOPHER [id number] Univers 07:14:53 ity of [facility] 2021-06-03 Outpatient [facility] [id number] Univers 07:14:18 ity of [facility] 2021-06-03 Emergency [facility] [id number] Univers 04:49:13 ity of [facility] 2021-06-02 Emergency [facility] [id number] Univers 09:17:44 ity of [facility] 2022-08-15 2022-08-15 Outpatient R DEE [facility] [id number] Univers 11:00:00 11:00:00 ROD corona [facility] 2022-07-11 2022-07-11 Outpatient R DEE [facility] [id number] Univers 10:00:00 10:00:00 ROD anglin [facility] 2022-06-20 2022-06-20 Outpatient R REBEKAH VAZ [facility] [id number] Univers 09:15:00 09:15:00 ity [facility] 2022-06-11 2022-06-11 Outpatient P [facility] [id number] Univers 09:30:00 09:30:00 ity [facility] 2022-05-30 2022-05-30 Outpatient R ТАТЬЯНА REBEKAH [facility] [id number] Univers 09:00:00 09:00:00 [facility] 2022-05-27 2022-05-27 Methods Time Analyst Ultrasound, Adc [facility] 1.2 .840.114 [id number] Univers 13:45:00 14:30:51 Visit Rebekah Vaz [facility] 350.1.13.10 ity of [place] Johnna Lorenzo [place] 4.2.7.2. 686 [facility] [id number] Sd dical [address] 2022-05-27 2022-05-27 Outpatient P FANTASMA [facility] [id number] Univers 13:45:00 13:45:00 YENNY it y of JOHNNA Ponce [facility] 2022-05-26 2022-05-26 Outpatient R RONNI [facility] [id number] Univers 11:00:00 17:02:24 JULIAN anglin [facility] 2022-05-26 2022-05-26 Telemedici Faculty, Poncho Rmchp [facility] 1.2.840.114 [id number] Univers 11:00:00 17:02:24 ne Visit Julian Elena ORDER SELECTOR 350.1.13. 10 ity of [facility] 4.2.7.2.686 Marty as MATERNAL [id number] Med ical & CHILD [address] [place] [address] 2022-05-26 2022-05-26 Telephone [facility] 1.2.840.114 [id number] Univers 00:00:00 00:00:00 Rod [facility] 350.1.13.10 it y of [place] 4.2.7.2.686 Marty as EMMETT?BLEA [id number] Sd marcela MYERS [address] [place] [address] MEDICAL OFFICE [facility] 2022-05-23 2022-05-23 Outpatient R ТАТЬЯНА [facility] DOTHAN [id number] Univers 09:15:00 09:17:22 ity [facility] 2022-05-23 2022-05-23 [facility]ine [facility] 1.2.840.114 [id number] Univers 09:15:00 09:17:22 Yonathan TAYLOR 350.1.13.10 i ty of [place] [id number] [address] 2022-05-23 2022-05-23 Letter Татьяна [facility] 1.2.840.114 [id number] Univers 00:00:00 00:00:00 (Out) Yonathan TAYLOR 350.1.13.10 it y [place] [id number] [address] 2022-05-21 2022-05-21 Outpatient R ANGELO RODRIGUEZ [facility] B [id number] Univers 15:00:00 15:39:34 ANGELO RODRIGUEZ [facility] 2022-05-21 2022-05-21 [facility] 1.2.840.114 [id number] Univers 15:00:00 15:39:34 Juleeewa CLAUDIA 350.1.13.10 i ty of Visit [place] [id number] [address] 2022-05-21 2022-05-21 Letter Phu [facility] 1.2.840.114 [id number] Univers 00:00:00 00:00:00 (Out) Angelo TAYLOR 350.1.13.10 it y of [place] [id number] [facility] [address] [place] 2022-05-20 2022-05-20 Orders Doctor ADRIÁN 1.2.840.114 [id number] Univers 00:00:00 00:00:00 Only Unassigned, BAILEY 350.1.13.10 ity of [place] [facility] 4.2.7.2.686 Marty as [id number] [place] [address] Branch 2022-05-19 2022-05-19 Telephone Rebekah Vaz [facility] 1.2.840.114 [id number] Univers 00:00:00 00:00:00 Yonathan TAYLOR 350.1.13.10 it y of PEDIATRIC 4.2.7.2.686 Te [facility] [id number] [address] 2022-05-16 2022-05-16 Methods Time Analyst Lab, Poncho - [facility] 1.2.840.1 14 [id number] Univers 11:15:00 11:15:00 Visit Rod Price Jaylin [facility] 350.1.13.10 ity of [place] 4.2.7.2.686 Marty as EMMETT?BLEA [id number] [facility]d [facility] [address] [place] MEDICAL OFFICE BUILDING 2022-05-16 2022-05-16 [facility] [id number] Univers 10:30:00 10:30:00 ROD itcorona [facility] 2022-05-16 2022-05-16 Office [facility] 1.2.421.348 [id number] Univers 10:30:00 10:30:00 Visit Rod [facility] 350.1.13.10 it y of [facility] 4.2.7.2.686 Marty as EMMETT?BLEA [id number] [facility] [address] [place] MEDICAL OFFICE BUILDING 2022-05-16 2022-05-16 Nurse Nurse, Lkj [facility] 1.2.840.114 [id number] Univers 09:00:00 09:15:00 Visit Rebekah Vaz 350.1.13.10 ity [place] [id number] [address] 2022-05-16 2022-05-16 Letter [facility] 1.2.246.931 [id number] Univers 00:00:00 00:00:00 (Out) Rod Mosqueda HEALTH 350.1.13.10 it y of [place] 4.2.7.2.686 Marty as EMMETT?BLEA [id number] [address] MEDICAL OFFICE BUILDING 2022-05-12 2022-05-12 Methods Time Analyst 1, [facility] Us Room UNIVERSIT 1 .2.840.114 [id number] Univers 13:30:00 14:29:00 Visit Severo Mcclellan HEALTH 350.1.13.[address] [facility] 4.2.7.2.686 [place] [id number] [address] 2022-05-12 2022-05-12 Outpatient P SEVERO MCCLELLAN [facility] [id number] Univers 13:30:00 13:30:00 SEVERO MCCLELLAN ity [facility] 2022-05-10 2022-05-10 Nurse ADRIÁN Huber 1.2.840.114 [id number] Univers 00:00:00 00:00:00 Triage Christine PERRYY 350.1.13.10 it y of HOSPITAL 4.2.7.2.686 Marty as [id number] [address] 2022-05-09 2022-05-09 Outpatient R REBEKAH VAZ [facility] [id number] Univers 09:00:00 09:15:22 ity of [facility] 2022-05-09 2022-05-09 Nurse Nurse, Lktish [facility] 1.2.840.114 [id number] Univers 09:00:00 09:15:22 Visit Rebekah Vaz 350.1.13.10 ity [place] [id number] [address] 2022-05-09 2022-05-09 Telephone Dee [facility] 1.2.840.114 [id number] Univers 00:00:00 00:00:00 Rod Jaylin HEALTH 350.1.13.10 it y of [facility] 4.2.7.2.686 Marty as EMMETT?BLEA [id number] [facility] [address] [place] MEDICAL [facility] BUILDING 2022-05-05 2022-05-05 Methods Time Analyst David, [facility] Lab Main [facility] 1.2.8 40.114 [id number] Univers 13:45:00 14:00:00 Visit Aydin Ferrera [place] 350.1.13.10 ity of Rebekah Vaz Yonathan [place] 4.2.7.2.686 [facility] [id number] Sd diclala [facility] 353 [facility] 2022-05-05 2022-05-05 Outpatient R REBEKAH VAZ [facility] [id number] Univers 13:45:00 13:45:00 ity of [facility] 2022-05-05 2022-05-05 Telephone Татьяна [facility] 1.2.840.114 [id number] Univers 00:00:00 00:00:00 Yonathan MARSHALL 350.1.13.10 i ty of [place] 4.2.7.2.686 [place] [facility] [id number] [facility] 134 [facility] 2022-05-02 2022-05-02 Outpatient R REBEKAH VAZ [facility] [id number] Univers 14:30:00 16:22:52 ity of [facility] 2022-05-02 2022-05-02 Routine Татьяна Rebekah [facility] 1.2.840.114 [id number] Univers 14:30:00 16:22:52 Yonathan TAYLOR 350.1.13.10 i ty of Visit [place] 4[place].2.[place] [id number] [address] 2022-04-28 2022-04-28 Outpatient P RONNI [facility] [id number] Univers 14:15:00 15:28:24 JULIAN anglin [facility] 2022-04-28 2022-04-28 Methods Time Analyst 2, [facility] Us Room UNIVERSIT 1 .2.840.114 [id number] Univers 14:15:00 14:45:00 Visit Julian Elena Y HEALTH 350.1.13. [address] [facility] 4.2.7.2.686 [place] [id number] [facility] [address] [place] 2022-04-28 2022-04-28 Telephone Jamila Zaldivar [facility] LAINEZ 1.2.840.11 [id number] Univers 00:00:00 00:00:00 CLAUDIA 350.1.13.10 it y of [place].2.[place] [id number] [facility] [address] [place] 2022-04-25 2022-04-25 Nurse Nurse, [facility] 1.2.840.114 [id number] Univers 10:00:00 10:00:00 Visit Rebekah Vaz 350.1.13.10 ity of [place].2.686 [place] PROFESSIO [id number] [address] 2022-04-25 2022-04-25 Outpatient R REBEKAH VAZ [facility] [id number] Univers 10:00:00 09:46:21 ity of [facility] 2022-04-24 2022-04-24 Orders Doctor ADRIÁN 1.2.840.114 [id number] Univers 00:00:00 00:00:00 Only Unassigned, BAILEY 350.1.13.10 ity of [place] [facility] 4.2.7.2.686 Marty as [id number] [facility] [address] [place] 2022-04-22 2022-04-22 Telephone Rebekah Vaz [facility] 1.2.840.114 [id number] Univers 00:00:00 00:00:00 Yonathan MARSHALL 350.1.13.10 i ty of [facility] [place].2.[place] PROF[place] [id number] Sd dical NAL [address] [place] [address] 2022-04-18 2022-04-18 Telephone Rebekah Vaz [facility] 1.2.840.114 [id number] Univers 00:00:00 00:00:00 Yonathan MARSHALL 350.1.13.10 i ty of [facility] [place].2.7.2.[place] PROFESS[place] [id number] Sd dical NAL [address] [place] [address] 2022-04-15 2022-04-15 Orders Doctor ADRIÁN 1.2.840.114 [id number] Univers 00:00:00 00:00:00 Only Unassigned, BAILEY 350.1.13.10 ity of [place] [facility] 4.2.7.2.686 Marty as [id number] [facility] [address] 2022-04-14 2022-04-14 Patient Jaxon [facility] 1.2.840.114 [id number] Univers 00:00:00 00:00:00 Secure Msg Ana Cristina [place] 350.1.13.10 ity of [place].2.7.2.686 [place] PROFESS[place] [id number] Sd dical [facility] [address] BUILDING 2022-04-13 2022-04-13 Case REID Hoskins 1.2.756.969 [id number] Univers 00:00:00 00:00:00 Management Conchita PEDIATRIC 350.1.13.10 ity of [place].2.7.2.686 [place] [id number] [facility] PRIMARY [address] CARE CLINIC 2022-04-11 2022-04-11 Outpatient X REBEKAH VAZ [facility] CHRISOTPHER [id number] Univers 15:23:00 19:00:00 ity of [facility] 2022-04-11 2022-04-11 Emergency Tasneem Wicho [facility] 1.2.840.1 14 [id number] Univers 15:23:00 19:00:00 Zen Jamila MARSHALL 350.1.13.10 ity of Rebekah Vaz 4.2.7.2.686 [facility] [id number] [facility] [address] 2022-04-11 2022-04-11 Nurse Nurse, [facility] 1.2.840.114 [id number] Univers 14:45:00 15:05:00 Visit Cecelia Vogel 350.1.13.10 ity of [place] 4.2.7.2.686 Marty as EMMETT?BLEA [id number] Sd dical EY [address] MEDICAL OFFICE BUILDING 2022-04-11 2022-04-11 Outpatient R LELA [facility] [id number] Univers 14:45:00 15:02:41 CECELIA ity [facility] 2022-04-11 2022-04-11 [facility] [id number] Univers 14:20:00 14:20:00 RANIA ity [facility] 2022-04-10 2022-04-10 Outpatient R [facility] [id number] Univers 08:45:00 08:45:00 ity of [facility] 2022-04-02 2022-04-02 Outpatient R REBEKAH VAZ [facility] [id number] Univers 10:00:00 10:44:45 ity of [facility] 2022-04-02 2022-04-02 Routine Татьяна [facility] 1.2.383.880 [id number] Univers 10:00:00 10:44:45 Cam R[place] 350.1.13.10 ity of Visit [place].2.7.2.686 [place] PROFESSIO [id number] Me dical NAL [address] [place] [address] 2022-04-02 2022-04-02 Outpatient R REBEKAH VAZ [facility] [id number] Univers 10:00:00 10:44:45 ity of [facility] 2022-04-02 2022-04-02 Telephone Татьяна Rebekah [facility] 1.2.840.114 [id number] Univers 00:00:00 00:00:00 Cam ROLANDO 350.1.13.10 i ty of [place] 4.2.7.2.686 [place] PROFESSIO [id number] Sd dical NAL [address] [place] [address] 2022-04-02 2022-04-02 Orders Doctor ADRIÁN 1.2.840.114 [id number] Univers 00:00:00 00:00:00 Only Unassigned, BAILEY 350.1.13.10 ity of [place] [facility] 4.2.7.2.686 Marty as [id number] [address] 2022-03-30 2022-03-30 Shirley Denson [facility] 1.2.840.114 [id number] Univers 00:00:00 00:00:00 [facility] 350.1.13.10 it y of [facility] 4.2.7.2.686 Marty as EMMETT?BLEA [id number] [address] MEDICAL OFFICE BUILDING 2022-03-24 2022-03-24 Case ANNETTE Velasco 1.2.840.114 [id number] Univers 00:00:00 00:00:00 Management Rosa OLIVAS 350.1.13.10 ity of [place]2.7.2.686 [place] [id number] [place] [address] [place] 2022-03-21 2022-03-21 Letter ADRIÁN Josue 1.2.840.114 [id number] Univers 00:00:00 00:00:00 (Out) Rhonda BAILEY 350.1.13.10 it y of [facility] 4.2.7.2.686 Marty as [id number] [address] 2022-03-20 2022-03-20 Outpatient R LELA [facility] [id number] Univers 17:40:00 18:04:01 [facility] 2022-03-20 2022-03-20 Urgent [facility] 1.2.840.114 [id number] Univers 17:40:00 18:00:00 [facility] 350.1.13.10 it y of [place] 4.2.7.2.686 Marty as EMMETT?BLEA [id number] [address] MEDICAL OFFICE [facility] 2022-03-20 2022-03-20 Outpatient R LELA [facility] [id number] Univers 17:15:00 17:15:[address] [facility] 2022-03-20 2022-03-20 Letter [facility], [facility] 1.2.656.959 [id number] Univers 00:00:00 00:00:00 (Out) Ang Db HEALTH 350.1.13.10 it y of Urgent Care [place] 4.2.7.2.686 [place] EMMETT?BLEA [id number] [address] MEDICAL OFFICE [facility] 2022-03-18 2022-03-18 Outpatient R JAMILA ZALDIVAR [facility] [id number] Univers 13:00:00 13:00:00 ity [facility] 2022-03-07 2022-03-07 Outpatient R JAMILA ZALDIVAR [facility] [id number] Univers 08:30:00 08:30:00 ity [facility] 2022-03-03 2022-03-03 Emergency X SHELBY [facility] ERT [id number] Univers 16:18:00 16:40:00 KASHIF it y of [facility] 2022-03-03 2022-03-03 Emergency Shelby [facility] 1.2.873.254 [id number] Univers 16:18:00 16:40:00 Kashif MARSHALL 350.1.13.10 ity [facility] 4.2.7.2.686 [facility] [id number] [facility] [address] 2022-03-03 2022-03-03 Outpatient R DIANE [facility] [id number] Univers 09:45:00 09:45:00 [facility] 2022-02-27 2022-02-27 Outpatient R JAMILA ZALDIVAR [facility] [id number] Univers 13:45:00 14:33:07 ity [facility] 2022-02-27 2022-02-27 Routine Zen [facility] 1.2.840.114 [id number] Univers 13:45:00 14:33:07 CLAUDIA 350.1.13.10 i ty of Visit [facility]OMEN'S 4.2.7.2.686 [facility] [id number] [facility] [address] 2022-02-27 2022-02-27 Outpatient R ZENNATIVIDADN [facility] [id number] Univers 13:45:00 13:45:00 ity [facility] 2022-02-11 2022-02-11 Outpatient R KOBE [facility] [id number] Univers 14:00:00 14:00:00 [facility]-11 2022-02-11 Outpatient R KOBE [facility] [id number] Univers 14:00:00 14:00:00 [facility] 2022-02-08 2022-02-08 ADRINÁ Murray 1.2.840.114 [id number] Univers 00:00:00 00:00:00 (Out) Rhonda AVALOS 350.1.13.10 it y of HOSPITAL 4.2.7.2.686 Marty as [id number] [facility] [address] 2022-02-07 2022-02-07 Urgent Jarett [facility] 1.2.840.114 [id number] Univers 17:40:00 18:00:00 [facility] [id number] it y of [place] 4.2.7.2.686 Marty as EMMETT?BLEA [id number] [facility] [address] MED[facility] OFF[facility] BUILD[facility] 2022-02-07 2022-02-07 Outpatient R JARETT [facility] [id number] Univers 17:40:00 17:49:36 [place]DA [place] [facility] 2022-02-07 2022-02-07 Outpatient R [facility] [id number] Univers 09:00:00 09:00:00 ity [facility] 2022-02-06 2022-02-06 Outpatient R JAMILA ZALDIVAR [facility] [id number] Univers 13:00:00 13:54:43 ity [facility] 2022-02-06 2022-02-06 Routine Jamila Zaldivar [facility] 1.2.840.114 [id number] Univers 13:00:00 13:54:43 CLAUDIA 350.1.13.10 i ty of Visit WOMEN[facility] 4.2.7.2.686 [facility] [id number] [facility] [address] 2022-02-06 2022-02-06 Outpatient R JAMILA ZALDIVAR [facility] [id number] Univers 13:00:00 13:00:00 ity [facility] 2022-02-06 2022-02-06 Orders Doctor ADRIÁN 1.2.840.114 [id number] Univers 00:00:00 00:00:00 Only Unassigned, BAILEY 350.1.13.10 ity of [place] [facility] 4.2.7.2.686 Marty as [id number] [facility] [address] 2022-01-31 2022-01-31 Outpatient R JAMILA ZALDIVAR [facility] [id number] Univers 13:15:00 14:15:21 ity of [facility] 2022-01-31 2022-01-31 Routine Jamila Zaldivar [facility] 1.2.840.114 [id number] Univers 13:15:00 14:15:21 [place] 350.1.13.10 ity of Visit [place].2.686 [place] [id number] [address] 2022-01-31 2022-01-31 Outpatient R JAMILA ZALDIVAR [facility] [id number] Univers 13:30:00 13:30:00 ity of [facility] 2022-01-29 2022-01-29 Methods Time Analyst Lab, Ang - Db [facility] 1.2.840.1 14 [id number] Univers 14:30:00 14:58:[address] [facility] 350.1.13.10 ity of [place] 4.2.7.2.686 Marty as EMMETT?BLEA [id number] [address] OFFICE [facility] 2022-01-29 2022-01-29 Methods Time Analyst Lab, Ang - Db [facility] 1.2.840.1 14 [id number] Univers 14:30:00 14:45:00 Visit Jamila Zaldivar 350.1.13.10 ity of [place] 4.2.7.2.686 Marty as EMMETT?BLEA [id number] [address] OFFICE [facility] 2022-01-29 2022-01-29 Outpatient R JAMILA ZALDIVAR [facility] [id number] Univers 14:30:00 14:30:00 ity of [facility] 2022-01-29 2022-01-29 Outpatient R JAMILA ZALDIVAR [facility] [id number] Univers 10:30:00 10:30:00 ity of [facility] 2022-01-29 2022-01-29 Telephone Jamila Zaldivar [facility] 1.2.840.11 [id number] Univers 00:00:00 00:00:00 CLAUDIA 350.1.13.10 it y [place] [facility] [id number] [address] 2022-01-29 2022-01-29 Patient Jaxon [facility] 1.2.840.114 [id number] Univers 00:00:00 00:00:00 Secure Msg Ana Cristina MARSHALL 350.1.13.10 ity of [place].686 [place] [id number] Sd marcela [facility] 134 [facility] 2022-01-29 2022-01-29 Telephone Jamila Zaldivar [facility] 1.2.840.11 4 [id number] Univers 00:00:00 00:00:00 CLAUDIA 350.1.13.10 it y of [place] [id number] [address] 2022-01-27 2022-01-27 Methods Time Analyst Lab, Poncho Diamond [facility] 1.2.840.1 14 [id number] Univers 10:45:00 10:45:00 Visit [facility] 350.1.13.10 ity of [place] 4.2.7.2.686 Marty as EMMETT?BLEA [id number] [facility] [address] [facility] OFFICE [facility] 2022-01-27 2022-01-27 Urgent Amanda Chinchilla [facility] 1.2.840. 114 [id number] Univers 10:20:00 10:40:00 [facility] 350.1.13.10 ity of [place] 4.2.7.2.686 Marty as EMMETT?BLEA [id number] [facility] 370 [facility] 2022-01-27 2022-01-27 Outpatient R JAMILA ZALDIVAR [facility] [id number] Univers 08:30:00 09:36:17 ity of [facility] 2022-01-27 2022-01-27 Initial Jamila Zaldivar [facility] 1.2.840.114 [id number] Univers 08:30:00 09:36:17 CLAUDIA 350.1.13.10 i ty of Visit [place].2.7.2.[place] [id number] [address] 2022-01-27 2022-01-27 Letter Jamila Zaldivar [facility] 1.2.840.114 [id number] Univers 00:00:00 00:00:00 (Out) CLAUDIA 350.1.13.10 it y of [place] 4.2.7.2.686 [place] [facility] [id number] [address] 2022-01-27 2022-01-27 Telephone Jamila Zaldivar [facility] 1.2.840.11 4 [id number] Univers 00:00:00 00:00:00 CLAUDIA 350.1.13.10 it y of WOMEN'S 4.2.7.2.686 [facility] HEALTH [id number] [address] 2022-01-27 2022-01-27 Orders Doctor ADRIÁN 1.2.840.114 [id number] Univers 00:00:00 00:00:00 Only Unassigned, BAILEY 350.1.13.10 ity of [place] [facility] 4.2.7.2.686 Marty as [id number] [facility] [address] 2022-01-08 2022-01-08 Refill Lela [facility] 1.2.840.114 [id number] Univers 00:00:00 00:00:00 Randaniel HEALTH 350.1.13.10 it y of [place] 4.2.7.2.686 Marty as EMMETT?BLEA [id number] [address] MEDICAL OFFICE BUILDING 2021-12-11 2021-12-11 Telephone ADRIÁN Josue 1.2.759.356 [id number] Univers 00:00:00 00:00:00 Rhondakam AVALOS 350.1.13.10 it y of HOSPITAL 4.2.7.2.686 Marty as [phone] [facility] [address] 2021-12-10 2021-12-10 Outpatient R LELA [facility] [id number] Univers 15:40:00 16:07:31 CECELIA anglin [facility] 2021-12-10 2021-12-10 Urgent Cecelia Vogel [facility] 1.2.840.114 [id number] Univers 15:40:00 16:07:31 Care Nelson Hammonds HEALTH 350.1.13.10 ity of [facility] 4.2.7.2.686 Marty as EMMETT?BLEA [id number] [address] MEDICAL OFFICE [facility] 2021-12-10 2021-12-10 Outpatient R LELA [facility] [id number] Univers 15:40:00 16:07:31 CECELIA [facility] 2021-10-28 2021-10-28 [facility] [id number] Univers 17:20:00 17:53:40 LINDA [facility] 2021-10-28 2021-10-28 [facility] 1.2.840.114 [id number] Univers 17:20:00 17:53:40 Care Linda HEALTH 350.1.13.10 it y of [place] 4.2.7.2.686 Marty as EMMETT?BLEA [phone] [address] MEDICAL OFFICE [facility] 2021-10-21 2021-10-21 Shirley Hoskins [facility] 1.2.001.860 [id number] Univers 00:00:00 00:00:00 Conchita HEALTH 350.1.13.10 it y of [facility] 4.2.7.2.686 Marty as EMMETT?BLEA [id number] [address] MEDICAL OFFICE [facility] 2021-10-02 2021-10-02 Outpatient R REBEKAH VAZ [facility] [id number] Univers 14:00:00 14:00:00 [facility] 2021-10-01 2021-10-01 Outpatient R KOBE [facility] [id number] Univers 12:30:00 12:30:00 JEANNA [facility] 2021-10-01 2021-10-01 Outpatient R KOBE [facility] [id number] Univers 10:00:00 10:00:00 JEANNA [facility] 2021-09-30 2021-09-30 Outpatient R DIANE [facility] [id number] Univers 17:00:00 17:00:00 SONI [facility] 2021-09-28 2021-09-28 Outpatient R KING ALLISON [facility] [id number] Univers 09:20:00 09:35:47 VERNON ity of [facility] 2021-09-27 2021-09-27 Outpatient R REBEKAH VAZ [facility] [id number] Univers 12:30:00 12:30:00 ity of [facility] 2021-09-27 2021-09-27 Telephone Rebekah Vaz WIANTONELLA LAINEZ 1.2.840.114 [id number] Univers 00:00:00 00:00:00 Yonathan TAYLOR 350.1.13.10 it y of [place] [id number] [address] 2021-09-20 2021-09-20 Telephone Rebekah Vaz WIANTONELLA LAINEZ 1.2.840.114 [id number] Univers 00:00:00 00:00:00 Yonathan TAYLOR 350.1.13.10 it y of [place].2.[place] [id number] [address] 2021-09-14 2021-09-14 Patient Kobe [facility] 1.2.840.114 [id number] Univers 00:00:00 00:00:00 Secure [facility] 350.1.13.10 ity of [place] 4.2.7.2.686 Marty as EMMETT?BLEA [id number] Sd marcela MYERS [address] [place] [address] MEDICAL OFFICE BUILDING 2021-09-13 2021-09-13 Outpatient R REBEKAH VAZ [facility] [id number] Univers 11:15:00 12:08:16 ity [facility] 2021-09-13 2021-09-13 Routine Rebekah Vaz [facility] 1.2.840.114 [id number] Univers 11:15:00 12:08:16 Yonathan TAYLOR 350.1.13.10 i ty of Visit [place] 4.2.7.2.[place] [id number] [address] 2021-09-13 2021-09-13 Letter Rebekah Vaz WIANTONELLA LAINEZ 1.2.840.114 [id number] Univers 00:00:00 00:00:00 (Out) Yonathan TAYLOR 350.1.13.10 it y of [place] 4.2.7.2.686 [place] [id number] [facility] [address] [place] 2021-09-13 2021-09-13 Orders Doctor ADRIÁN 1.2.840.114 [id number] Univers 00:00:00 00:00:00 Only Unassigned, BAILEY 350.1.13.10 ity of [place] [facility] 4.2.7.2.686 Marty as [phone] [place] [address] [address] 2021-09-04 2021-09-04 Outpatient R REBEKAH VAZ [facility] [id number] Univers 15:00:00 15:00:00 ity [facility] 2021-09-02 2021-09-02 Outpatient R DIANE [facility] [id number] Univers 09:45:00 09:45:00 SONI ity [facility] 2021-09-02 2021-09-02 Outpatient R KOBE [facility] [id number] Univers 00:00:00 00:00:00 WENTONG ity [facility] 2021-09-02 2021-09-02 Outpatient R KOBE [facility] [id number] Univers 00:00:00 00:00:00 WENTONG ity [facility] 2021-09-02 2021-09-02 Outpatient R KOBE [facility] [id number] Univers 00:00:00 00:00:00 [facility] 2021-08-30 2021-08-30 Outpatient R REBEKAH VAZ [facility] [id number] Univers 12:30:00 13:36:54 ity [facility] 2021-08-30 2021-08-30 Initial Rebekah Vaz WIANTONELLA LAINEZ 1.2.840.114 [id number] Univers 12:30:00 13:36:54 Yonathan TAYLOR 350.1.13.10 i ty of Visit [place] 4.2.7.2.686 [place] [id number] [address] 2021-08-30 2021-08-30 Letter Rebekah Vaz WIANTONELLA LAINEZ 1.2.840.114 [id number] Univers 00:00:00 00:00:00 (Out) Yonathan TAYLOR 350.1.13.10 it y of [place] 4.2.[place].2.[place] [id number] [facility] [address] [place] 2021-08-29 2021-08-29 Outpatient R KACI [facility] [id number] Univers 18:40:00 19:35:58 NELSON [facility] 2021-08-29 2021-08-29 Urgent Vernon Gonzalez Cesar [facility] 1.2.840.114 [id number] Univers 18:40:00 19:00:[address] [facility] 350.1.13.10 ity of [place] 4.2.7.2.686 Marty as EMMETT?BLEA [id number] Sd marcela MYERS [address] MEDICAL OFFICE BUILDING 2021-08-29 2021-08-29 Outpatient R KACI [facility] [id number] Univers 18:40:00 18:40:00 [facility] 2021-08-27 2021-08-27 Methods Time Analyst Lab, Ang - [facility] 1.2.840.1 14 [id number] Univers 14:00:00 14:15:00 Visit Kobe [facility] 350.1.13.10 ity of [place] 4.2.7.2.686 Marty as EMMETT?BLEA [id number] Sd marcela MYERS [address] MEDICAL OFFICE [facility] 2021-08-27 2021-08-27 Office [facility] 1.2.840.114 [id number] Univers 13:00:00 14:05:18 Visit [facility] 350.1.13.10 it y of [place] 4.2.7.2.686 Marty as EMMETT?BLEA [id number] Sd marcela MYERS [address] MEDICAL OFFICE BUILDING 2021-08-27 2021-08-27 Outpatient R KOBE [facility] [id number] Univers 13:00:00 14:05:18 [facility] 2021-08-27 2021-08-27 Outpatient R COLTON [facility] [id number] Univers 14:00:00 14:00:00 MAR [facility] 2021-08-27 2021-08-27 Outpatient R KOBE [facility] [id number] Univers 14:00:00 14:00:00 WENTONG ity [facility] 2021-08-27 2021-08-27 Orders Doctor ADRIÁN 1.2.840.114 [id number] Univers 00:00:00 00:00:00 Only Unassigned, BAILEY 350.1.13.10 [facility] 4.2.7.2.686 Marty as [id number] [address] 2021-08-27 2021-08-27 Letter Kobe [facility] 1.2.840.114 [id number] Univers 00:00:00 00:00:00 (Out) [facility] 350.1.13.10 it y of [place] 4.2.7.2.686 Marty as EMMETT?BLEA [id number] [facility] [address] [place] MEDICAL OFFICE BUILDING 2021-08-26 2021-08-26 Outpatient R CHAPINCITO [facility] [id number] Univers 09:00:00 09:00:00 [facility] 2021-08-26 2021-08-26 Outpatient R CHAPINCITO [facility] [id number] Univers 09:00:00 09:00:00 [facility] 2021-08-26 2021-08-26 Outpatient R CHAPINCITO [facility] [id number] Univers 09:00:00 09:00:00 [facility] 2021-08-23 2021-08-23 Outpatient R REBEKAH VAZ [facility] [id number] Univers 10:45:00 10:45:00 [facility] 2021-07-23 2021-07-23 Laboratory Only, Ang Db Test [facility] 1.2.8 40.114 [id number] Univers 18:00:00 18:15:00 Only Nelson Hammonds HEALTH 350.1.13.10 ity of [facility] 4.2.7.2.686 Marty as EMMETT?BLEA [phone] [facility] [address] [place] MEDICAL OFFICE BUILDING 2021-07-23 2021-07-23 Outpatient R KACI [facility] [id number] Univers 18:00:00 18:00:00 NELSON itcorona [facility] 2021-07-23 2021-07-23 Outpatient R KACI [facility] [id number] Univers 16:00:00 16:00:00 NELSON itcorona [facility] 2021-07-23 2021-07-23 Outpatient R [facility] [id number] Univers 15:45:00 15:45:00 ity [facility] 2021-07-04 2021-07-04 Orders Doctor SAMPSON 1.2.840.114 [id number] Univers 00:00:00 00:00:00 Only Unassigned, BAILEY 350.1.13.10 ity of [facility] 4.2.7.2.686 Marty as [id number] [address] 2021-06-26 2021-06-26 Outpatient [facility] [id number] Univers 16:00:00 16:11:06 LIBBY anglin o hector [facility] 2021-06-26 2021-06-26 Urgent Nelson Hammonds [facility] 1.2.840.114 [id number] Univers 14:02:21 14:22:[address] [facility] 350.1.13.10 ity of [place] 4.2.7.2.686 Marty as EMMETT?BLEA [id number] [address] MEDICAL OFFICE BUILDING 2021-06-26 2021-06-26 Outpatient [facility] [id number] Univers 14:00:00 14:00:00 LIBBY derrek veronika young [facility] 2021-06-26 2021-06-26 Outpatient R [facility] [id number] Univers 10:00:00 10:00:00 [facility] 2021-06-24 2021-06-24 [facility] [id number] Univers 10:00:00 10:00:00 SONI [facility] 2021-06-24 2021-06-24 Telephone [facility] 1.2.318.375 [id number] Univers 00:00:00 00:00:00 Soni Hinojosa HEALTH 350.1.13.10 i ty of [place] 4.2.7.2.686 Marty as EMMETT?BLEA [id number] Me marcela ALCANT[address] MEDICAL OFFICE [facility] 2021-06-21 2021-06-21 Outpatient R CHARLES [facility] [id number] Univers 09:30:00 09:30:00 MUKUND anglin [facility] 2021-06-21 2021-06-21 Refill [facility] 1.2.840.114 [id number] Univers 00:00:00 00:00:00 Mukund HEALTH 350.1.13.10 it y of [place] 4.2.7.2.686 Marty as EMMETT?BLEA [id number] Sd marcela [address] MEDICAL OFFICE [facility] 2021-06-18 2021-06-18 Outpatient R [facility] [id number] Univers 09:30:00 09:30:00 MUKUNDJUSTO anglin [facility] 2021-06-18 2021-06-18 Telephone [facility] 1.2.674.525 [id number] Univers 00:00:00 00:00:00 Mukund HEALTH 350.1.13.10 it y of [place] 4.2.7.2.686 Marty as EMMETT?BLEA [id number] [address] MEDICAL OFFICE [facility] 2021-06-13 2021-06-13 Patient [facility] 1.2.840.114 [id number] Univers 00:00:00 00:00:00 Secure Msg Mukund HEALTH 350.1.13.10 ity of [place] 4.2.7.2.686 Marty as EMMETT?BLEA [id number] Sd marcela ALCANTARA[address] MEDICAL OFFICE [facility] 2021-06-12 2021-06-12 Outpatient [facility] [id number] Univers 13:30:00 14:12:46 ERIC angiln [facility] 2021-06-12 2021-06-12 Office [facility] 1.2.197.035 [id number] Univers 13:23:25 14:12:46 Visit Eric Hammond ORDER SELECTOR 350.1.13.10 it y of [facility] 4.2.7.2.686 Marty as MATERNAL [id number] Med ical & CHILD 107 [facility] 2021-06-12 2021-06-12 Outpatient Ruben MOCK [facility] [id number] Univers 13:30:00 13:30:00 ERIC anglin [facility] 2021-06-07 2021-06-07 [facility] 1.2.840.114 [id number] Univers 10:32:59 23:59:00 Encounter Mukund HEALTH 350.1.13.10 ity [facility] 4.2.7.2.686 Marty as EMMETT?BLEA [id number] Sd marcela MYERS [address] MEDICAL OFFICE [facility] 2021-06-07 2021-06-07 Outpatient Ruben SOTO [facility] [id number] Univers 10:32:59 23:59:00 MUKUND anglin [facility] 2021-06-07 2021-06-07 Outpatient Ruben SOTO [facility] [id number] Univers 09:30:00 10:38:03 MUKUND anglin [facility] 2021-06-07 2021-06-07 [facility] 1.2.840.114 [id number] Univers 09:27:17 10:38:03 Visit Mukund CANDELARIA 350.1.13.10 it y [facility] 4.2.7.2.686 Marty as EMMETT?BLEA [id number] Sd marcela MYERS [address] [facility] OFFICE [facility] 2021-06-07 2021-06-07 Outpatient Ruben SOTO [facility] [id number] Univers 09:30:00 09:30:00 MUKUND anglin [facility] 2021-06-05 2021-06-05 Shirley Denson [facility] 1.2.840.114 [id number] Univers 00:00:00 00:00:00 Linda HEALTH 350.1.13.10 it y of [place] 4.2.7.2.686 Marty as EMMETT?BLEA [phone] Sd marcela ALCANTARA [address] MEDICAL OFFICE [facility] 2021-06-04 2021-06-04 Outpatient Ruben [facility] [id number] Univers 09:30:00 09:30:00 MUKUND anglin [facility] 2021-06-01 2021-06-01 Refilana [facility] 1.2.840.114 [id number] Univers 00:00:00 00:00:00 Mukund HEALTH 350.1.13.10 it y of [place] 4.2.7.2.686 Marty as EMMETT?BLEA [phone] [facility] [address] MEDICAL OFFICE [facility] 2021-05-31 2021-05-31 Refilana [facility] 1.2.840.114 [id number] Univers 00:00:00 00:00:00 Linda HEALTH 350.1.13.10 it y of [facility] 4.2.7.2.686 Marty as EMMETT?BLEA [phone] [facility] [address] [facility] OFFICE [facility] 2021-05-20 2021-05-20 Outpatient R CHAPINCITO [facility] [id number] Univers 13:30:00 13:30:00 JOSH corona [facility] 2021-05-17 2021-05-17 Outpatient [facility] [id number] Univers 10:15:00 10:15:00 ERIC ocrona [facility] 2021-05-10 2021-05-10 Methods Time Analyst Lab, Ang - [facility] 1.2.840.1 14 [id number] Univers 13:53:17 14:07:26 Visit Soni [facility] 350.1.13.10 ity of [place] 4.2.7.2.686 Marty as Emmett?Blea [id number] [facility] [address] [facility] Office [facility] 2021-05-10 2021-05-10 Office Mukund Soto [facility] 1.2.840.114 [id number] Univers 12:57:45 13:53:07 Visit Soni [facility] 350.1.13.10 ity of [place] 4.2.7.2.686 Marty as Emmett?Blea [phone] [facility] Office [facility] 2021-05-10 2021-05-10 Outpatient [facility] [id number] Univers 13:00:00 13:00:00 SONI anglin [facility] 2021-05-08 2021-05-08 Urgent Linda Denson [facility] 1.2.840.114 [id number] Univers 18:49:53 19:09:53 [facility] 350.1.13.10 [facility] 4.2.7.2.686 Marty as Emmett?Blea [phone] [address] Medical Office Building 2021-05-08 2021-05-08 Outpatient [facility] [id number] Univers 19:00:00 19:00:00 AMANDA anglin o f [facility] 2021-05-08 2021-05-08 Outpatient R [facility] [id number] Univers 17:20:00 17:20:00 [facility] 2021-04-25 2021-04-25 Routine [facility] 1.2.572.686 [id number] Univers 15:59:10 16:44:08 Eric Hammond ORDER SELECTOR 350.1.13.10 i ty of Visit REGIONAL 4.2.7.2.686 Marty as MATERNAL [id number] Med ical & CHILD [address] [place] [address] 2021-04-25 2021-04-25 Outpatient [facility] [id number] Univers 16:00:00 16:00:00 ERIC anglin [facility] 2021-03-31 2021-04-03 Hospital ADRIÁN Elena 1.2.197.832 [id number] Univers 16:58:00 13:59:00 Encounter Julian [facility].13.10 [facility] 4.2.7.2.686 Marty as [phone] [address] 2021-04-02 2021-04-02 Outpatient R [facility] [id number] Univers 14:15:00 14:15:00 ERIC anglin [facility] 2021-03-31 2021-04-01 Anesthesia [place] 1.2.840 .114 [id number] Univers 20:35:00 03:48:00 Event Adrián Parikh BAILEY 350.1.13.10 ity of [facility] 4.2.7.2.686 Marty as [phone] [address] 2021-03-31 2021-04-01 Surgery ADRIÁN Elena 1.2.840.114 [id number] Univers 23:00:00 00:43:00 Julian PERRYY 350.1.13.10 ity [facility] 4.2.7.2.686 Marty as [phone] [address] 2021-03-27 2021-03-27 Outpatient R [facility] [id number] Univers 15:45:00 15:45:00 TAB young [facility] 2021-03-26 2021-03-26 Methods Time Analyst Ultrasound, [facility] 1.2 .840.114 [id number] Univers 15:04:09 15:34:09 Visit Eric Mock ORDER SELECTOR 350.1.13.10 [facility] 4.2.7.2 .686 [place] MATERNAL [id number] Med ical & CHILD [address] [place] [address] 2021-03-26 2021-03-26 Methods Time Analyst Ultrasound, [facility] 1.2 .840.114 [id number] Univers 15:04:09 15:34:09 Visit Eric Mock ORDER SELECTOR 350.1.13.10 ity of Susanna Jeronimo [facility] 4.2.7.2 .686 [place] MATERNAL [phone] [facility] ical & CHILD [address] [place] [address] 2021-03-26 2021-03-26 [facility] [id number] Univers 15:15:00 15:15:00 ERIC anglin [facility] 2021-03-26 2021-03-26 [facility] 1.2.370.117 [id number] Univers 14:15:58 15:03:13 Eric Hammond ORDER SELECTOR 350.1.13.10 i ty of Visit REGIONAL 4.2.7.2.686 Marty as MATERNAL [phone] Med ical & CHILD [address] [facility] 2021-03-26 2021-03-26 [facility] 1.2.088.394 [id number] Univers 14:15:58 15:03:13 Eric Hammond ORDER SELECTOR 350.1.13.10 i ty of Visit REGIONAL 4.2.7.2.686 Marty as MATERNAL [id number] [facility] ical & CHILD [address] [place] [address] 2021-03-21 2021-03-21 Telephone [facility] 1.2.840.114 [id number] Univers 00:00:00 00:00:00 Eric Hammond ORDER SELECTOR 350.1.13.10 it y of REGIONAL 4.2.7.2.686 Marty as MATERNAL [id number] [facility] & CHILD [address] [place] [address] 2021-03-20 2021-03-20 Outpatient R EMILI [facility] [id number] Univers 12:45:00 12:45:00 ERIC anglin [facility] 2021-03-20 2021-03-20 Methods Time Analyst Lab, Ang-Rmchp [facility] 1.2.840. 114 [id number] Univers 12:42:40 12:42:47 Visit Eric Mock ORDER SELECTOR 350.1.13.10 ity of [facility] 4.2.7.2.686 Marty as MATERNAL [id number] [facility] & CHILD [address] [place] [address] 2021-03-20 2021-03-20 Telephone [facility] 1.2.840.114 [id number] Univers 00:00:00 00:00:00 Eric Hammond ORDER SELECTOR 350.1.13.10 it y of REGIONAL 4.2.7.2.686 Marty as MATERNAL [phone] [facility] ical & CHILD [address] [place] [address] 2021-03-19 2021-03-19 Routine [facility] 1.2.280.165 [id number] Univers 14:24:31 15:03:42 Eric Hammond ORDER SELECTOR 350.1.13.10 i ty of Visit REGIONAL 4.2.7.2.686 Marty as MATERNAL [id number] Med ical & CHILD [address] [place] [address] 2021-03-19 2021-03-19 Outpatient R [facility] [id number] Univers 14:15:00 14:15:00 ERICDEYSI anglin [facility] 2021-03-12 2021-03-12 Outpatient R [facility] [id number] Univers 09:30:00 09:30:00 ity [facility] 2021-03-05 2021-03-05 Routine [facility] 1.2.969.721 [id number] Univers 10:48:25 11:35:50 Eric Hammond ORDER SELECTOR 350.1.13.10 i ty of Visit REGIONAL 4.2.7.2.686 Marty as MATERNAL [id number] [facility] & CHILD [address] [place] [address] 2021-03-05 2021-03-05 Outpatient R [facility] [id number] Univers 11:00:00 11:00:00 ERIC [facility] 2021-02-27 2021-02-27 [facility] 1.2 .840.114 [id number] Univers 15:40:08 15:58:05 Visit Kathryn Fry ORDER SELECTOR 350.1.13.10 ity of REGIONAL 4.2.7.2.686 Marty as MATERNAL [phone] [facility] & [address] 2021-02-27 2021-02-27 Methods Time Analyst Ultrasound, Inocenciodieter [facility] 1.2 .840.114 [id number] Univers 14:55:25 15:25:25 Visit Eric Mock ORDER SELECTOR 350.1.13.10 ity of REGIONAL 4.2.7.2.686 Marty as MATERNAL [id number] [facility] & CHILD [address] [place] [address] 2021-02-27 2021-02-27 Outpatient P [facility] [id number] Univers 15:00:00 15:00:00 [facility] 2021-02-26 2021-02-26 Outpatient Ruben MOCK [facility] [id number] Univers 10:45:00 10:45:00 ERIC anglin [facility] 2021-02-22 2021-02-22 Outpatient SEVERO ESCOBAR [facility] [id number] Univers 10:45:00 10:45:00 SEVERO MCCLELLAN [facility] 2021-02-22 2021-02-22 Telemedici Fellow, Len [facility] U [facility] 1.2.840.114 [id number] Univers 08:26:49 08:41:49 ne Visit Eleuterio Severo [facility] 350.1.13.[address] [facility] 4.2.7.2.686 [place] [phone] [address] 2021-02-19 2021-02-19 Routine [facility] 1.2.017.345 [id number] Univers 13:04:02 13:55:40 Eric Hammond ORDER SELECTOR 350.1.13.10 i ty of Visit [facility] 4.2.7.2.686 Marty as MATERNAL [phone] Med ical & CHILD [address] [place] [address] 2021-02-19 2021-02-19 Outpatient R [facility] [id number] Univers 13:00:00 13:00:00 [facility] 2021-02-19 2021-02-19 Outpatient R [facility] [id number] Univers 13:00:00 13:00:00 [facility] 2021-02-19 2021-02-19 Telephone [facility] 1.2.840.114 [id number] Univers 00:00:00 00:00:00 Eric Hammond ORDER SELECTOR 350.1.13.10 it y of [facility] 4.2.7.2.686 Marty as MATERNAL [id number] Med ical & CHILD [address] [place] [address] 2021-02-18 2021-02-18 Outpatient R [facility] [id number] Univers 10:00:00 10:00:00 [facility] 2021-02-18 2021-02-18 Telephone [facility] 1.2.840.114 [id number] Univers 00:00:00 00:00:00 [facility] ORDER SELECTOR 350.1.13.10 ity [facility] 4.2.7.2.686 Marty as MATERNAL [id number] Med ical & CHILD [address] [place] [address] 2021-02-15 2021-02-15 Telemedici Makayla Lechuga [facility] 1.2.8 40.114 [id number] Univers 12:53:36 12:53:48 ne Visit ParveenMaico Vivek ORDER SELECTOR 350.1.13.10 ity of [facility] 4.2.7.2.686 Marty as MATERNAL [id number] [facility] & CHILD [address] [place] [address] 2021-02-15 2021-02-15 Outpatient P [facility] [id number] Univers 09:45:00 09:45:00 ity [facility] 2021-02-12 2021-02-12 Routine [facility] 1.2.310.409 [id number] Univers 13:33:25 14:47:59 Eric Hammond ORDER SELECTOR 350.1.13.10 i ty of Visit [facility] 4.2.7.2.686 Marty as MATERNAL [id number] [address] 2021-02-12 2021-02-12 [facility] [id number] Univers 14:00:00 14:00:00 ERIC anglin [facility] 2021-02-08 2021-02-08 Telephone Emili [facility] 1.2.840.114 [id number] Univers 00:00:00 00:00:00 Eric Hammond ORDER SELECTOR 350.1.13.10 it y of REGIONAL 4.2.7.2.686 Marty as MATERNAL [id number] [address] 2021-02-08 2021-02-08 Nurse ADRIÁN Seaman 1.2.840.114 [id number] Univers 00:00:00 00:00:00 Triage Aneatricjeanette AVALOS 350.1.13.10 ity of [facility] 4.2.7.2.686 Marty as [id number] [address] 2021-02-05 2021-02-05 Outpatient R [facility] [id number] Univers 12:45:00 12:45:00 ity [facility] 2021-02-01 2021-02-01 Abstract Bonnie [facility] 1.2.840.114 [id number] Univers 00:00:00 00:00:00 Tab C ORDER SELECTOR 350.1.13.10 ity of [facility] 4.2.7.2.686 Marty as MATERNAL [phone] [facility] & CHILD [address] [place] [address] 2021-01-31 2021-01-31 Methods Time Analyst 1, [facility] Us Room UNIVERSIT 1 .2.840.114 [id number] Univers 15:10:46 16:18:12 Visit Fantasma ApariciokenneyJohnna hdz Xfire 350.1 .13.[address] [facility] 4.2.7.2.[place] [id number] [facility] [address] [place] 2021-01-31 2021-01-31 Outpatient P [facility] [id number] Univers 15:30:00 15:30:00 ity [facility] 2021-01-29 2021-01-29 Emergency Zen, Jamila [facility] 1.2.840.114 [id number] Univers 22:06:00 23:25:00 [place] 350.1.13.10 i ty of [place].2.7.2.686 [place] [phone] [facility] [address] [place] 2021-01-29 2021-01-29 Routine [facility] 1.2.650.651 [id number] Univers 13:29:22 14:23:00 Eric Hammond ORDER SELECTOR 350.1.13.10 i ty of Visit [facility] 4.2.7.2.686 Marty as MATERNAL [id number] [facility] CHILD [address] [place] [address] 2021-01-29 2021-01-29 [facility] [id number] Univers 13:45:00 13:45:00 ERIC anglin [facility] 2021-01-29 2021-01-29 Telephone [facility] 1.2.840.114 [id number] Univers 00:00:00 00:00:00 Eric Hammond ORDER SELECTOR 350.1.13.10 it y of [facility] 4.2.7.2.686 Marty as MATERNAL [id number] [facility] & CHILD [address] [place] [address] 2021-01-29 2021-01-29 Nurse ADRIÁN Quezada 1.2.840.114 [id number] Univers 00:00:00 00:00:00 Triage Ellie AVALOS 350.1.13.10 ity of [facility] 4.2.7.2.686 Marty as [phone] [facility] [address] [place] 2021-01-29 2021-01-29 Orders Doctor ADRIÁN 1.2.840.114 [id number] Univers 00:00:00 00:00:00 Only Unassigned, BAILEY 350.1.13.10 ity of [place] [facility] 4.2.7.2.686 Marty as [id number] [facility] [address] [place] 2021-01-21 2021-01-21 Outpatient R [facility] [id number] Univers 11:00:00 11:00:00 ity [facility] 2021-01-21 2021-01-21 Telemedici Faculty, Poncho [facility] 1.2.840.114 [id number] Univers 09:02:46 09:17:46 ne Visit Julian Elena ORDER SELECTOR 350.1.13. 10 ity of [facility] 4.2.7.2.686 Marty as MATERNAL [phone] Med ical & CHILD [address] [place] [address] 2021-01-18 2021-01-18 Telephone [facility] 1.2.840.114 [id number] Univers 00:00:00 00:00:00 Eric Hammond ORDER SELECTOR 350.1.13.10 it y of [facility] 4.2.7.2.686 Marty as MATERNAL [id number] Med ical & CHILD [address] [place] [address] 2021-01-15 2021-01-15 [facility] [id number] Univers 10:00:00 10:00:00 ERIC anglin [facility] 2021-01-15 2021-01-15 Telephone [facility] 1.2.840.114 [id number] Univers 00:00:00 00:00:00 Eric Hammond ORDER SELECTOR 350.1.13.10 it y of [facility] 4.2.7.2.686 Marty as MATERNAL [id number] Med ical & CHILD [address] [place], [place] [address] 2021-01-08 2021-01-08 [facility] 1.2 .840.114 [id number] Univers 10:03:31 10:18:41 Visit Eric Mock ORDER SELECTOR 350.1.13.10 ity of REGIONAL 4.2.7.2.686 Marty as MATERNAL [id number] [address] 2021-01-08 2021-01-08 Outpatient R [facility] [id number] Univers 10:00:00 10:00:00 [facility] 2021-01-03 2021-01-03 Methods [facility] 1.2.840. 114 [id number] Univers 08:59:03 10:31:23 Visit Eric Mock ORDER SELECTOR 350.1.13.10 ity of REGIONAL 4.2.7.2.686 Marty as MATERNAL [id number] [address] 2021-01-03 2021-01-03 Outpatient R [facility] [id number] Univers 08:30:00 08:30:00 [facility] 2021-01-02 2021-01-02 Outpatient R [facility] [id number] Univers 10:30:00 10:30:00 [facility] 2021-01-01 2021-01-01 [facility] [id number] Univers 12:45:00 12:45:00 ERIC [facility] 2021-01-01 2021-01-01 Routine [facility] 1.2.192.641 [id number] Univers 08:34:05 09:19:16 Eric Hammond ORDER SELECTOR 350.1.13.10 i ty of Visit REGIONAL 4.2.7.2.686 Marty as MATERNAL [phone] [address] 2021-01-01 2021-01-01 [facility] [id number] Univers 08:45:00 08:45:00 ERIC [facility] 2020-12-26 2020-12-26 Nurse Visit, Ruperto Nurse [facility] 1.2 .840.114 [id number] Univers 09:32:52 10:04:57 Visit Eric Mock ORDER SELECTOR 350.1.13.10 ity of [facility]IONAL 4.2.7.2.686 Marty as MATERNAL [id number] [facility] ical & CHILD [address] [place] [address] 2020-12-26 2020-12-26 Outpatient R [facility] [id number] Univers 09:30:00 09:30:00 ity of [facility] 2020-12-24 2020-12-24 Outpatient R [facility] [id number] Univers 15:00:00 15:00:00 ity [facility] 2020-12-24 2020-12-24 Telemedici Faculty, Poncho Berry [facility] 1.2.840.114 [id number] Univers 08:59:50 09:14:50 ne Visit Kandi Reid ORDER SELECTOR 350.1.13.10 ity of REGIONAL 4.2.7.2.686 Marty as MATERNAL [id number] [facility] CHILD [address] [place] [address] 2020-12-21 2020-12-21 Outpatient MAICO DIETRICH [facility] [id number] Univers 11:15:00 11:15:00 ity [facility] 2020-12-21 2020-12-21 Telephone Emili WIANTONELLA 1.2.840.114 [id number] Univers 00:00:00 00:00:00 Eric Hammond ORDER SELECTOR 350.1.13.10 it y of [facility]AL 4.2.7.2.686 Marty as MATERNAL [phone] [facility] ical & CHILD [address] [place] [address] 2020-12-19 2020-12-19 Nurse [facility] 1.2 .840.114 [id number] Univers 09:52:56 10:23:27 Visit Eric Mock ORDER SELECTOR 350.1.13.10 ity of [facility]AL 4.2.7.2.686 Marty as MATERNAL [id number] [facility] & CHILD [address] [place] [address] 2020-12-19 2020-12-19 Outpatient R [facility] [id number] Univers 09:30:00 09:30:00 ity [facility] 2020-12-18 2020-12-18 Orders Doctor ADRIÁN 1.2.840.114 [id number] Univers 00:00:00 00:00:00 Only Unassigned, BAILEY 350.1.13.10 ity of [place] [facility] 4.2.7.2.686 Marty as [phone] [facility] [address] [place] 2020-12-15 2020-12-15 Nurse ADRIÁN Quezada 1.2.840.114 [id number] Univers 00:00:00 00:00:00 Triage Ellie AVALOS 350.1.13.10 ity of [facility] 4.2.7.2.686 Marty as [phone] [facility] [address] [place] 2020-12-12 2020-12-12 Nurse Visit, InocencioRmp Nurse [facility] 1.2 .840.114 [id number] Univers 10:18:52 10:44:10 Visit Eric Mock ORDER SELECTOR 350.1.13.10 ity [facility] 4.2.7.2.686 Marty as MATERNAL [phone] Med ical & CHILD 107 [facility] 2020-12-12 2020-12-12 Outpatient R [facility] [id number] Univers 10:00:00 10:00:00 ity [facility] 2020-12-12 2020-12-12 Methods Time Analyst Ultrasound, Margie [facility] 1.2 .840.114 [id number] Univers 09:28:22 09:58:22 Visit Kathryn Fry ORDER SELECTOR 350.1.13.10 ity of [place] Whitten [facility] 4.2.7.2.686 [place] Tammy Ortiz MATERNAL [phone] Medical & CHILD 369 [facility] 2020-12-10 2020-12-10 [facility] [id number] Univers 08:30:00 08:30:00 ROBERT ity [facility] 2020-12-05 2020-12-05 Routine Emili [facility] 1.2.584.111 [id number] Univers 08:24:48 09:04:09 Eric Hammond ORDER SELECTOR 350.1.13.10 i ty of Visit REGIONAL 4.2.7.2.686 Marty as MATERNAL [id number] [facility] & [address] 2020-12-05 2020-12-05 Outpatient R EMILI [facility] [id number] Univers 08:30:00 08:30:00 ERIC anglin [facility] 2020-12-05 2020-12-05 Methods Time Analyst Ultrasound, [facility] 1.2 .840.114 [id number] Univers 07:59:46 08:24:35 Visit Kathryn Fry ORDER SELECTOR 350.1.13.10 ity of [place] Whitten [facility] 4.2.7.2.686 [place] Severo Mcclellan MATERNAL [id number] Medical & CHILD [address] [place] [address] 2020-12-03 2020-12-03 Telephone Emili [facility] 1.2.840.114 [id number] Univers 00:00:00 00:00:00 Eric Hammond ORDER SELECTOR 350.1.13.10 it y of REGIONAL 4.2.7.2.686 Marty as MATERNAL [phone] [facility] & CHILD [address] [place] [address] 2020-11-29 2020-11-29 Outpatient Ruben OMCK [facility] [id number] Univers 08:45:00 08:45:00 ERIC anglin [facility] 2020-11-28 2020-11-28 Nurse Visit, Poncho-Rmchp Nurse [facility] 1.2 .840.114 [id number] Univers 09:01:14 09:28:22 Visit Eric Mock ORDER SELECTOR 350.1.13.10 ity of [facility] 4.2.7.2.686 Marty as MATERNAL [id number] [address] 2020-11-28 2020-11-28 Outpatient Ruben MOCK [facility] [id number] Univers 08:30:00 08:30:00 ERIC anglin [facility] 2020-11-22 2020-11-22 Methods Time Analyst Ultrasound, [facility] 1.2 .840.114 [id number] Univers 08:53:19 10:08:19 Visit Emmanuel Lepe ORDER SELECTOR 350.1.13.10 ity of REGIONAL 4.2.7.2.686 Marty as MATERNAL [phone] [facility] ical & CHILD [address] [place] [address] 2020-11-22 2020-11-22 Outpatient P [facility] [id number] Univers 08:45:00 08:45:00 ity of [facility] 2020-11-21 2020-11-21 Nurse Visit, PonchoRmchp Nurse [facility] 1.2 .840.114 [id number] Univers 08:53:59 09:10:18 Visit Eric Mock ORDER SELECTOR 350.1.13.10 ity of [facility] 4.2.7.2.686 Marty as MATERNAL [id number] [facility] ical & CHILD [address] [place] [address] 2020-11-21 2020-11-21 Outpatient R EMILI [facility] [id number] Univers 08:30:00 08:30:00 ERIC ity [facility] 2020-11-14 2020-11-14 Methods Time Analyst [facility]trasound[facility] 1.2 .840.114 [id number] Univers 08:56:46 09:26:46 Visit Kathryn Fry ORDER SELECTOR 350.1.13.10 ity of [place] Brandon Ruben [facility] 4.2.7.2.686 [place] MATERNAL [phone] [facility] CHILD [address] [place] [address] 2020-11-14 2020-11-14 Routine Ang [facility] 1.2.840.114 [id number] Univers 08:23:13 08:38:13 Kathryn Miranda ORDER SELECTOR 350.1.13.10 ity of Visit REGIONAL 4.2.7.2.686 Marty as MATERNAL [id number] [facility] ical & CHILD [address] [place] [address] 2020-11-14 2020-11-14 Outpatient R [facility] [id number] Univers 08:30:00 08:30:00 ity of [facility] 2020-11-13 2020-11-13 Outpatient R [facility] [id number] Univers 17:20:00 17:20:00 itcorona [facility] 2020-11-13 2020-11-13 Telephone [facility] 1.2.840.114 [id number] Univers 00:00:00 00:00:00 Eric N ORDER SELECTOR 350.1.13.10 it y of [place] 4.2.7.2.686 Marty as MATERNAL [id number] [facility] & [address] 2020-11-07 2020-11-07 Routine [facility] 1.2.483.942 [id number] [facility] 10:03:48 10:53:52 Eric N ORDER SELECTOR 350.1.13.10 i ty of Visit REGIONAL 4.2.7.2.686 Marty as MATERNAL [id number] [address] 2020-11-07 2020-11-07 Routine [facility] 1.2.395.758 [id number] 10:03:48 10:53:52 Eric N ORDER SELECTOR 350.1.13.10 Visit REGIONAL 4.2.7.2.686 MATERNAL [phone] & [address] 2020-11-07 2020-11-07 Outpatient R EMILI [facility] [id number] Univers 09:15:00 09:15:00 ERIC anglin [facility] 2020-11-06 2020-11-06 [facility] [id number] Univers 14:15:00 14:15:00 ERIC anglin [facility] 2020-11-05 2020-11-05 Telephone [facility] 1.2.840.114 [id number] Univers 00:00:00 00:00:00 Eric N ORDER SELECTOR 350.1.13.10 it y of [place]AL 4.2.7.2.686 Marty as MATERNAL [id number] [address] 2020-10-31 2020-10-31 Telephone [facility] 1.2.840.114 [id number] Univers 00:00:00 00:00:00 Eric N ORDER SELECTOR 350.1.13.10 it y of REGIONAL 4.2.7.2.686 Marty as MATERNAL [id number] Med ical & CHILD 107 [facility] 2020-10-31 2020-10-31 Telephone Emili [facility] 1.2.840.114 [id number] Univers 00:00:00 00:00:00 Eric Hammond ORDER SELECTOR 350.1.13.10 it y of [facility] 4.2.7.2.686 Marty as MATERNAL [id number] Med ical & CHILD [address] [place] [address] 2020-10-30 2020-10-30 Telephone [facility] 1.2.840.114 [id number] Univers 00:00:00 00:00:00 Eric Hammond ORDER SELECTOR 350.1.13.10 it y of [facility] 4.2.7.2.686 Marty as MATERNAL [id number] [facility] CHILD [address] [place] [address] 2020-10-29 2020-10-29 Emergency Cynthia [facility] 1.2.622.105 [id number] Univers 15:24:00 18:12:00 Maldonado Jacobo [place] 350.1.13.10 ity [facility] 4.2.7.2.686 [place] [facility] [id number] [address] 2020-10-29 2020-10-29 Outpatient R [facility] [id number] Univers 09:30:00 09:30:00 ity of [facility] 2020-10-29 2020-10-29 Telemedici Faculty, Poncho [facility] 1.2.840.114 [id number] Univers 08:09:37 08:24:37 ne Visit Brandon Whitten ORDER SELECTOR 350.1.13.10 ity of [facility] 4.2.7.2.686 Marty as MATERNAL [phone] Med ical & CHILD [address] [place] [address] 2020-10-29 2020-10-29 Telephone [facility] 1.2.840.114 [id number] Univers 00:00:00 00:00:00 Eric Hammond ORDER SELECTOR 350.1.13.10 it y of [facility] 4.2.7.2.686 Marty as MATERNAL [id number] Med ical & CHILD [address] [place] [address] 2020-10-29 2020-10-29 Orders Doctor ADRIÁN 1.2.840.114 [id number] Univers 00:00:00 00:00:00 Only Unassigned, BAILEY 350.1.13.10 ity of [place] [facility] 4.2.7.2.686 Marty as [phone] [address] 2020-10-28 2020-10-28 Telephone [facility] 1.2.588.004 [id number] Univers 00:00:00 00:00:00 Rhonda Howe ORDER SELECTOR 350.1.13.10 ity of [facility] 4.2.7.2.686 Marty as MATERNAL [id number] [facility] ical & CHILD [address] [place] [address] 2020-10-26 2020-10-26 Telephone [facility] 1.2.840.114 [id number] Univers 00:00:00 00:00:00 Eric Hammond ORDER SELECTOR 350.1.13.10 it y of [facility] 4.2.7.2.686 Marty as MATERNAL [phone] [facility] ical & CHILD [address] [place] [address] 2020-10-24 2020-10-24 Telephone [facility] 1.2.840.114 [id number] Univers 00:00:00 00:00:00 Eric Hammond ORDER SELECTOR 350.1.13.10 it y of [facility] 4.2.7.2.686 Marty as MATERNAL [phone] [facility] ical & CHILD [address] [place] [address] 2020-10-22 2020-10-22 Telephone [facility] 1.2.171.653 [id number] Univers 00:00:00 00:00:00 Rhonda Howe ORDER SELECTOR 350.1.13.10 ity of REGIONAL 4.2.7.2.686 [place] as MATERNAL [id number] [facility] & CHILD [address] [place] [address] 2020-10-04 2020-10-04 Routine Risk, Nms-Vgmqs-Lq/High [facility] 1. 2.840.114 [id number] Univers 14:35:18 15:12:11 Rhonda Perez ORDER SELECTOR 350.1.13.10 ity of Visit [facility] 4.2.7.2.686 [place] as MATERNAL [phone] Med ical & CHILD 107 [facility] 2020-10-04 2020-10-04 Outpatient R [facility] [id number] Univers 14:30:00 14:30:00 ity of [facility] 2020-10-04 2020-10-04 Telephone [facility] 1.2.840.114 [id number] Univers 00:00:00 00:00:00 Eric Hammond ORDER SELECTOR 350.1.13.10 it y of REGIONAL 4.2.7.2.686 Marty as MATERNAL [id number] [facility] ical & CHILD [address] [place] [address] 2020-10-03 2020-10-03 [facility] 1.2.840.114 [id number] Univers 00:00:00 00:00:00 Eric Hammond ORDER SELECTOR [id number] it y of [facility] [id number] Marty as MATERNAL [phone] [facility] ical & CHILD [address] [place] [address] 2020-10-01 2020-10-01 Telephone [facility] 1.2.840.114 [id number] Univers 00:00:00 00:00:00 Eric Hammond ORDER SELECTOR [id number] it y of REGIONAL [id number] Marty as MATERNAL [id number] [facility] & CHILD [address] [place] [address] 2020-09-25 2020-09-25 Orders Doctor ADRIÁN 1.2.840.114 [id number] Univers 00:00:00 00:00:00 Only Unassigned, BAILEY [id number] ity of [place] [facility] [id number] Marty as [phone] [address] 2020-09-13 2020-09-13 Routine Risk, Qqj-Dfvrb-Cr/High [facility] 1. 2.840.114 [id number] Univers 15:33:54 16:21:30 Onelia Price ORDER SELECTOR 350.1.13.10 ity of Visit REGIONAL 4.2.7.2.686 Marty as MATERNAL [id number] [facility] ical & CHILD [address] [place] [address] 2020-09-13 2020-09-13 Outpatient R [facility] [id number] Univers 15:30:00 15:30:00 ity [facility] 2020-09-06 2020-09-06 Outpatient R [facility] [id number] Univers 15:00:00 15:00:00 ity [facility] 2020-09-03 2020-09-03 Telephone SAJI Mock 1.2.840.114 [id number] Univers 00:00:00 00:00:00 Eric Hammond ORDER SELECTOR 350.1.13.10 it y of REGIONAL 4.2.7.2.686 Marty as MATERNAL [id number] Med ical & CHILD [address] [place] [address] 2020-08-31 2020-08-31 Methods Time Analyst Ultrasound, Margie [facility] 1.2 .840.114 [id number] Univers 15:11:17 15:41:17 Visit Johnna Chowdhury ORDER SELECTOR 350.1. 13.10 ity of REGIONAL 4.2.7.2.686 Marty as MATERNAL [id number] Med ical & CHILD 369 [facility] 2020-08-31 2020-08-31 Outpatient P [facility] [id number] Univers 15:00:00 [facility]:00[facility] 2020-08-31 2020-08-31 Abstract Emili WIANTONELLA 1.2.840.114 [id number] Univers 00:00:00 00:00:00 Eric Hammond ORDER SELECTOR 350.1.13.10 it y of REGIONAL 4.2.7.2.686 Marty as MATERNAL [phone] Med ical & CHILD [address] [place] [address] 2020-08-31 2020-08-31 Telephone Emili WIANTONELLA 1.2.840.114 [id number] Univers 00:00:00 00:00:00 Eric Hammond ORDER SELECTOR 350.1.13.10 it y of REGIONAL 4.2.7.2.686 Marty as MATERNAL [id number] Med ical & CHILD [address] [place] [address] 2020-08-29 2020-08-29 Telephone Emili WIANTONELLA 1.2.840.114 [id number] Univers 00:00:00 00:00:00 Eric N ORDER SELECTOR 350.1.13.10 it y of REGIONAL 4.2.7.2.686 Marty as MATERNAL [phone] [facility] & CHILD [address] [place] [address] 2020-08-27 2020-08-27 [facility] 1.2.840.114 [id number] Univers 00:00:00 00:00:00 Eric N ORDER SELECTOR 350.1.13.10 it y of REGIONAL 4.2.7.2.686 Marty as MATERNAL [phone] [facility] CHILD [address] [place] [address] 2020-08-22 2020-08-22 Telephone [facility] 1.2.840.114 [id number] Univers 00:00:00 00:00:00 Eric N ORDER SELECTOR 350.1.13.10 it y of [facility] 4.2.7.2.686 Marty as MATERNAL [id number] [address] 2020-08-21 2020-08-21 Initial [facility] 1.2.120.589 [id number] Univers 14:51:44 16:19:05 Eric N ORDER SELECTOR 350.1.13.10 i ty of Visit REGIONAL 4.2.7.2.686 Marty as MATERNAL [id number] [address] 2020-08-21 2020-08-21 [facility] [id number] Univers 14:00:00 14:00:00 ERIC anglin [facility] 2020-08-21 2020-08-21 Orders Doctor SAMPSON 1.2.840.114 [id number] Univers 00:00:00 00:00:00 Only Unassigned, BAILEY 350.1.13.10 ity of [place] [facility] 4.2.7.2.686 Marty as [id number] [address] 2020-08-14 2020-08-14 Outpatient R [facility] [id number] Univers 09:15:00 09:15:00 derrek [facility] 2019-10-28 2019-10-28 Outpatient Denzelu_P [facility] [id number] [place] 02:06:00 02:06:00 0[facility] 2019-03-02 2019-03-02 Orders Doctor ADRIÁN 1.2.840.114 [id number] Univers 00:00:00 00:00:00 Only Unassigned, BAILEY 350.1.13.10 ity of [place] [facility] 4.2.7.2.686 Marty as [phone] [facility] [address] Results Test Description Test Time Test Comments [...] code = 3257) na Negative - Negative [facility] SPECIFIC [id number] 21:58:00 Test Item Value Reference Range Interpretation [...] code = 3257) na Negative - Negative [facility] SPECIFIC [id number] 21:58:00 Test Item Value Reference Range Interpretation [...] code = 3257) na Negative - Negative [facility] 22[facility]00:08 Test Item Value Reference Range Interpretation Comments APPEARANCE (test code = Clear Clear 3655716277) COLOR (test code = Yellow Colorless A 4726881808) PH (test code = 4.8-8.0 3436934706) SP GRAVITY (test code = 1.003-1.035 2365292259) GLU U QUAL (test code = Negative Negative 5485484115) BLOOD (test code = Negative Negative 5428462878) KETONES (test code = Negative Negative 5485956316) PROTEIN (test code = Negative Negative 2887-8) UROBILIN (test code = Normal Normal 5479162575) BILIRUBIN (test code = Negative Negative 4455034062) NITRITE (test code = Negative Negative 2710990566) LEUK VALENTINE (test code = Negative Negative 4359927689) RBC/HPF (test code = See_Comment [Autom ated message] 2036362449) The system Ardian generated this result transmitted ref erence range: 0 - 3 HP F. The reference range was not used to int erpret this result as normal/abnormal . WBC/HPF (test code = See_Comment [Autom ated message] 8086905232) The system Ardian generated this result transmitted ref erence range: 0 - 5 HP F. The reference range was not used to int erpret this result as normal/abnormal . BACTERIA (test code = Few Negative A 6441297955) MUCOUS (test code = Slight Negative LPF A 0195311293) SQ EPITH (test code = HPF 5960540724) Lab Interpretation (test Abnormal code = 93963-2) [facility] [id number] 21:45:14 Test Item Value Reference Range Interpretation Comments CLUE CELLS WET PREP (test code = Moderate None Seen HPF A 2180407948) BACTERIA WET PREP (test code = Few None Seen HPF A 0506503867) WBC WET PREP (test code = Few None Seen HPF A 4225263769) RBC WET PREP (test code = None Seen None Seen HPF 8452560101) TRICHOMONAS WET PREP (test code = None Seen None Seen HPF 0567210873) YEAST WET PREP (test code = Few None Seen HPF A 1474329781) Lab Interpretation (test code = Abnormal 50638-5) [facility] SPECIFIC [id number] 14:51:00 Test Item Value Reference Range Interpretation [...] code = 3257) n/a Negative - Negative [facility]
[2022-06-14] MEDS ORDERED: ACETAMINOPHEN 500 MG TAB ONE (22:28)
--- NOTE | 2022-06-14 22:50 | RAD REPORT ---
EXAM DESCRIPTION: RAD - Foot Left 3 View - 06/14/2022 10:40 pm CLINICAL HISTORY: great toe pain COMPARISON: Abdomen 1 View (KUB) dated 06/14/2022; Abdomen 1 View (KUB) dated 06/13/2022FOOT W OBLIQ UES dated 02/19/2009 FINDINGS/IMPRESSION: No acute fracture. No malalignment. No significant focal degenerative changes.
--- NOTE | 2022-06-14 23:26 | EDPHYS ---
Physician Documentation [facility] Name: Deborah Torres Age: 27 yrs Sex: Female : 1995 Arrival Date: 06/14/2022 Time: 20:46 Bed 14 Private MD: ED Physician Husam Olsen HPI: 06/14 22:20 This 27 yrs old Female presents to ER via Ambulatory with complaints of Toe Injury. cp 22:20 The patient presents with an injury. cp 22:20 The complaints affect the left great toe. Context: Patient reports left great toe cp struck pumpkin causing nail to be from nailbed. Patient reports she then completely removed nail from left great toe. C/o left great toe pain, bleeding. Onset: The symptoms/episode began/occurred just prior to arrival. Associated signs and symptoms: The patient has no apparent associated signs or symptoms. 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 - Social history:: Smoking status: unknown. ROS: 22:25 MS/extremity: Positive for injury or acute deformity, of the left great toe, Negative cp for paresthesias. 22:25 Constitutional: Negative for body aches, chills, fever, poor PO intake. cp 22:25 Cardiovascular: Negative for chest pain. 22:25 Respiratory: Negative for cough, shortness of breath. 22:25 Back: Negative for pain at rest, pain with movement. 22:25 All other systems are negative. Exam: 22:30 Constitutional: The patient appears in no acute distress, alert, awake, non-toxic, well cp developed, well nourished, uncomfortable. 22:30 Head/Face: Normocephalic, atraumatic. cp 22:30 Cardiovascular: Rate: normal, Rhythm: regular, Pulses: Pulses are 2+ in left dorsalis pedis artery. 22:30 Respiratory: the patient does not display signs of respiratory distress, Respirations: normal, no use of accessory muscles, no retractions. 22:30 Musculoskeletal/extremity: Extremities: grossly normal except: noted in the left great toe: mild swelling noted, nail completely removed exposing intact nailbed with mild bleeding, no open wounds noted, tender to palpation of distal phalanx with mild swelling and ecchymosis, full AROM left great toe, neurovascular intact. Vital Signs: 20:54 BP 116 / 79; Pulse 87; Resp 16 S; Temp 99.1(O); Pulse Ox 100% on R/A; Weight 90.72 kg bb (R); Height 5 ft. 4 in. (162.56 cm) (R); Pain 8/10; 23:00 Pain 1/10; ke1 23:56 BP 120 / 78; Pulse 81; Resp 18; Temp 98.6; Pulse Ox 100% on R/A; ke1 20:54 Body Mass Index 34.33 (90.72 kg, 162.56 cm) bb MDM: 21:39 Patient medically screened. cp 22:30 Differential diagnosis: fracture, laceration, open fracture, nailbed injury, contusion. cp 23:25 Data reviewed: vital signs, nurses notes, radiologic studies, plain films. cp 23:25 Test interpretation: by ED physician or midlevel provider: plain radiologic studies. cp Counseling: I had a detailed discussion with the patient and/or guardian regarding: the historical points, exam findings, and any diagnostic results supporting the discharge/admit diagnosis, radiology results, to return to the emergency department if symptoms worsen or persist or if there are any questions or concerns that arise at home. Response to treatment: the patient's symptoms have mildly improved after treatment, and as a result, I will discharge patient. ED course: Patient declined having nail sutured in place. Wound cleaned and dressed. Will discharge to home for continued monitoring. 06/14 22:16 Order name: XRAY Foot LEFT 3 View; Complete Time: 23:17 cp 06/14 23:17 Interpretation: Reviewed report. cp 06/14 23:24 Order name: Crutches; Complete Time: 23:55 cp 06/14 23:24 Order name: Wound dressing: antibiotic and non-stick dressing; Complete Time: 23:55 cp Administered Medications: 22:30 Drug: Tylenol 1000 mg Route: PO; ke1 23:00 Follow up: Pain 08/12 Adult ke1 Disposition: 06/15 04:36 Co-signature as Attending Physician, Husam Olsen DO I was immediately available on-site ms3 in the Emergency Department for consultation in the care of the patient. Disposition Summary: 06/14/22 23:25 Discharge Ordered Location: Home cp Problem: new cp Symptoms: have improved cp Condition: Stable cp Diagnosis - Contusion of left great toe with damage to nail cp Followup: cp - With: Private Physician - When: 2 - 3 days - Reason: Wound Recheck Discharge Instructions: - Discharge Summary Sheet cp - Nail Avulsion cp Forms: - Medication Reconciliation Form cp - Thank You Letter cp - Antibiotic Education cp - Prescription Opioid Use cp - Work release form ke1 Prescriptions: - Cephalexin 500 mg Oral Capsule - take 1 capsule by ORAL route every 8 hours for 10 days; 30 capsule; Refills: 0, cp Product Selection Permitted Signatures: Dispatcher [employer] Rosa Do RN RN Shawn Hobbs PA PA cp Husam Olsen DO DO ms3 Pascual Huertas RN RN ke1
--- NOTE | 2022-06-14 23:26 | ER ---
Nurse's Notes [facility] Name: Deborah Torres Age: 27 yrs Sex: Female : 1995 Arrival Date: 06/14/2022 Time: 20:46 Bed 14 Private MD: Diagnosis: Contusion of left great toe with damage to nail Presentation: 06/14 20:54 Chief complaint: Patient states: she fell over a pumpkin injuring her left big toenail bb which is very painful. Coronavirus screen: At this time, the client does not indicate any symptoms associated with coronavirus-19. Ebola Screen: No symptoms or risks identified at this time. Initial Sepsis Screen: Does the patient meet any 2 criteria? No. Patient's initial sepsis screen is negative. Does the patient have a suspected source of infection? No. Patient's initial sepsis screen is negative. Risk Assessment: Do you want to hurt yourself or someone else? Patient reports no desire to harm self or others. Onset of symptoms was June 14, 2022. 20:54 Method Of Arrival: Ambulatory bb 20:54 Acuity: NORM 4 bb Triage Assessment: 21:45 General: Appears in no apparent distress. Behavior is appropriate for age. Pain: ke1 Complains of pain in left big toe Pain currently is 5 out of 10 on a pain scale. at worst was 10 out of 10 on a pain scale. level that patient reports is acceptable is 2 out of 10 on a pain scale. 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 - Social history:: Smoking status: unknown. Screenin:44 Abuse screen: Denies threats or abuse. Nutritional screening: No deficits noted. ke1 Tuberculosis screening: No symptoms or risk factors identified. Fall Risk None identified. Assessment: 22:29 Pain: Complains of pain in left big toe Pain currently is 4 out of 10 on a pain scale. ke1 23:55 Reassessment: Patient states feeling better. Patient states symptoms have improved. ke1 Vital Signs: 20:54 BP 116 / 79; Pulse 87; Resp 16 S; Temp 99.1(O); Pulse Ox 100% on R/A; Weight 90.72 kg bb (R); Height 5 ft. 4 in. (162.56 cm) (R); Pain 8/10; 23:00 Pain 1/10; ke1 23:56 BP 120 / 78; Pulse 81; Resp 18; Temp 98.6; Pulse Ox 100% on R/A; ke1 20:54 Body Mass Index 34.33 (90.72 kg, 162.56 cm) ED Course: 20:46 Patient arrived in ED. as 20:55 Triage completed. bb 20:55 Arm band placed on Patient placed in waiting room, Patient notified of wait time. bb 20:56 Shawn Roberts PA is PHCP. cp 20:56 Husam Olsen DO is Attending Physician. cp 21:39 Pascual Huertas, ELÍAS is Primary Nurse. ke1 21:45 Bed in low position. Call light in reach. ke1 22:42 XRAY Foot LEFT 3 View In Process Unspecified. EDMS 23:55 No provider procedures requiring assistance completed. Patient did not have IV access ke1 during this emergency room visit. Administered Medications: 22:30 Drug: Tylenol 1000 mg Route: PO; ke1 23:00 Follow up: Pain 08/12 Adult ke1 Medication: 23:56 VIS not applicable for this client. ke1 Outcome: 23:25 Discharge ordered by MD. cp 23:56 Discharged to home with crutches. ke1 23:56 Condition: good 23:56 Discharge instructions given to patient. 23:56 Patient left the ED. ke1 Signatures: Dispatcher [employer] Radha Swift Brenda, RN RN bb Page, Corey, PA PA cp Ebrottie, Kouassi, RN RN ke1
[2022-06-14] MEDS ORDERED: MUPIROCIN 2% OINT 22GM TUBE TOP ONE (23:30)
[2022-06-15 00:20] VITALS: O2SAT 100
[2022-06-15 00:22] VITALS: BP 120/78; TEMP 98.6
== END 2022-06-14 23:56 | disposition home or self-care (01) ==
LOC: ER 20:46
DX: S90.212A Contusion of left great toe with damage to nail, initial encounter (principal); I10 Essential (primary) hypertension; Z88.0 Allergy status to penicillin; Z88.5 Allergy status to narcotic agent; Z88.8 Allergy status to other drugs, medicaments and biological substances; Z91.048 Other nonmedicinal substance allergy status
CPT/HCPCS: 99283

== ENCOUNTER 2022-09-13 14:04 | Emergency (ER) | payer OTHER ==
--- OUTSIDE RECORDS SUMMARY | 2022-09-13 14:22 | XMS REPORT | Continuity of Care Document ---
:1995 Author Organization [facility] t Address [address] [place] [address] Care Team Providers Name Role Phone Pcp, Patient Does Not Have A Primary Care Physician [phone] REBEKAH VAZ Attending Clinician Unavailable ANGELO RODRIGUEZ Attending Clinician Unavailable ANGELO RODRIGUEZ Attending Clinician Unavailable Rebekah Vaz MD Attending Clinician Doctor Unassigned, [place] Attending Clinician Unavailable Pob, [facility] Main Attending Clinician Unavailable Ultrasound, [facility] Attending Clinician Unavailable Shawn Levy DO Attending Clinician Severo Mcclellan MD Attending Clinician SEVERO MCCLELLAN Attending Clinician Unavailable SEVERO MCCLELLAN Attending Clinician Unavailable Kyle MCKINLEY, Manuel Álvarez Attending Clinician Unavailable Valarie Norton RN Attending Clinician Unavailable Trinity Wills RN Attending Clinician Unavailable EBRAHIMCECELIA Attending Clinician Unavailable Ebrahim SKATE MAKER, Rania Attending Clinician Unknown, Attending Attending Clinician Unavailable Provider, [facility] Attending Clinician Unavailable ROD PRICE Attending Clinician Unavailable SUSANNA WOO Attending Clinician Unavailable Susanna Woo MD Attending Clinician [phone] Pcp, Patient Does Not Have A Attending Clinician [phone], [facility] Lab Attending Clinician Unavailable KASHIF RYAN Attending Clinician Unavailable Kashif Solano Attending Clinician King ALLISON MD, Vernon Guerrero Attending Clinician CAROLYN AMATO Attending Clinician Unavailable Carolyn Amato DO Attending Clinician KASSIDY PARSONS Attending Clinician Unavailable Kassidy Parsons MD Attending Clinician MAICO SAINI Attending Clinician Unavailable Makayla Lechuga Attending Clinician Unavailable Maico Saini MD Attending Clinician Jennifer Schultz RN Attending Clinician Unavailable JOHNNA CHOWDHURY Attending Clinician Unavailable Faculty, [facility] Attending Clinician Unavailable Johnna Chowdhury MD Attending Clinician [phone] Ultrasound, [facility] Attending Clinician Unavailable JULIAN ELENA Attending Clinician Unavailable Julian Elena MD Attending Clinician Rod Price MD Attending Clinician Lab, [facility] Attending Clinician Unavailable Nurse, [facility] Attending Clinician Unavailable 1, [facility] Usg Room Attending Clinician Unavailable Christine Huber RN Attending Clinician Unavailable Aydin Ferrera MD Attending Clinician 2, [facility] Usg Room Attending Clinician Unavailable Jamila Zaldivar MD Attending Clinician Nurse, [facility] Attending Clinician Unavailable Ana Cristina Coates RN Attending Clinician Unavailable Conchita Hoskins PA-C Attending Clinician Wicho Boateng DO Attending Clinician Nurse, [facility] Attending Clinician Unavailable Jarett GOTTLIEB, Linda Attending Clinician Rosa Velasco MA Attending Clinician Unavailable Rhonda Josue RN Attending Clinician Unavailable JAMILA ZALDIVAR Attending Clinician Unavailable SONI CONTRERAS Attending Clinician Unavailable JEANNA BULLOCK Attending Clinician Unavailable LINDA DENSON Attending Clinician Unavailable Renée SKATE MAKERAmanda Attending Clinician Cassius GRUBBS, Nelson Attending Clinician VERNON GONZALEZ III Attending Clinician Unavailable Kobe GOTTLIEB, Jeanna Attending Clinician NELSON HAMMONDS Attending Clinician Unavailable MAR SEGURA Attending Clinician Unavailable JOSH BECKHAM Attending Clinician Unavailable Only, [facility] Attending Clinician Unavailable LIBBY GR Attending Clinician Unavailable Simón SKATE MAKER, Libby Maya Attending Clinician Soni Rivera Attending Clinician MUKUND SOTO Attending Clinician Unavailable Charles SKATE MAKERMukund Attending Clinician ERIC MOCK Attending Clinician Unavailable Emili SNOWP, Eric Hammond Attending Clinician AMANDA CHINCHILLA Attending Clinician Unavailable Hill Barfield MD Attending Clinician Adrián Parikh MD Attending Clinician TAB KERNS Attending Clinician Unavailable Lab, [facility] Attending Clinician Unavailable Visit, [facility] Nurse Attending Clinician Unavailable Ang GRUBBS, Kathryn Miranda Attending Clinician Fellow, [facility] Mfm Attending Clinician Unavailable Jurgen MCKINLEY, Chuy Attending Clinician Unavailable Tab Duong Attending Clinician [phone] Damien MCKINLEY, Ellie Zhao Attending Clinician Unavailable Franklin GOTTLIEB, Kandi Attending Clinician Brandon Whitten MD Attending Clinician Diana GOTTLIEB, Tammy Simmons Attending Clinician ROBERT HARVEY Attending Clinician Unavailable Roberth GOTTLIEB, Emmanuel Mckeon Attending Clinician Cynthia GOTTLIEB, Maldonado Jacobo Attending Clinician Ana [facility], Rhonda Howe Attending Clinician Risk, Jol-Dhmyp-Vx/High Attending Clinician Unavailable Dee [facility], Onelia Pan Attending Clinician Raju_P Attending Clinician Unavailable SUSANNA WOO Admitting Clinician Unavailable JAMILA ZALDIVAR Admitting Clinician Unavailable SEVERO MCCLELLAN Admitting Clinician Unavailable REBEKAH VAZ Admitting Clinician Unavailable Rebekah Vaz MD Admitting Clinician Susanna Woo MD Admitting Clinician [phone] CAROLYN AMATO Admitting Clinician Unavailable Jamila Zaldivar MD Admitting Clinician Ulices GOTTLIEB, Julian Austin Admitting Clinician Raju_P Admitting Clinician Unavailable Payers Payer Name Policy Type Policy Number Effective Date Expiration Date S dave [employer] [id number] 2020 00:00:00 Problems Condition Condition Condition Status Onset Resolution Last Treating Co mments Source Name Details Category Date Date Treatment Clinician Date Liveborn Liveborn Disease Active Unive rs infant, of , of 2-09 [place] y of [place] , , 00 [place] born in born in [facility] by by delivery delivery Tubal Tubal Disease Active Univers ligation ligation 1-27 ity of evaluation evaluation 00:00: Jamie toure [address] [place] [address] Chronic Chronic Disease Active 2021-08 Univers hypertensi hypertensi 2-29 [place] of on during on during 00:[place] [facility] Round Round Disease Active Univers ligament ligament 9-30 ity of pain pain 00:00: [address] History of History of Disease Active U nivers 6-30 [place]y of delivery, [place], 00:[place] 00 [facility] History of History of Disease Active U nivers miscarriag miscarriag 6-27 it y of e, e, 00:00: [place] currently currently 00 [facility] Branch Tobacco Tobacco Disease Active Univers abuse abuse 6-27 ity of 00:00: [place] 00 Medical Branch Previous Previous Disease Active Unive rs 9-01 ity of section section 00:00: [place] 00 Medical Branch 38 weeks 38 weeks Disease Active Unive rs gestation gestation 8-29 ity of of of 00:00: [place] 00 [facility] COVID-19 COVID-19 Disease Active Unive rs virus IgG virus IgG 8-18 ity of antibody antibody 00:00: [place] detected detected 00 Medica l Branch High risk High risk Disease Active Uni vers , , 7-20 it y of antepartum antepartum 00:[place] 00 [place] Marijuana Marijuana Disease Active Uni vers use [...] albuterol nebulizer and xopinex.I 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 Bipolar- since age 16-17 with suicidal attempt with conflict with mom. Trial of antidepre ssant and stopped med due to thyroid med problem. No med last 2 years.. Cannot control anger. No manic state. History of History of Disease Active Overview : Univers seizures seizures 2-16 Formattin ity of 00:00: g of this [place] note Medical might be Branch different from the original. Childhood x 1 episiode Allergies, Adverse Reactions, Alerts Allergy Allergy Status Severity Reaction(s) Onset Inactive Treating Comm ents Source Name Type Date Date Clinician Penicill Propensi Active Nausea 2020-08 Univer s in ty to and/or 0-06 ity of adverse Vomiting 00:00: [place] reaction 00 Medical s [place] PENICILL DRUG Active High N/V 2020-08 Univers IN INGREDI 0-06 ity of 00:00: [place] [facility] Prometha Propensi Active Itching 2018-0 Itching Univ ers zine Hcl ty to 09-02 and hives ity o f adverse 00:00: [place] reaction 00 Medical s [place] PROMETHA DRUG Active ITCHING 2018-0 Univers ZINE HCL INGREDI - ity of 00:00: [place] [facility] Adhesive Propensi Active Rash 2016-0 Univer s Tape-Fannie ty to 3-08 ity of icones adverse 00:00: [place] reaction 00 Medical s Branch ADHESIVE DRUG Active Rash 2016-0 Univers TAPE-FANNIE 3-08 ity of ICONES 00:00: [place] [facility] Hydrocod Drug Active Itching 2011-0 itching Univer s one Allergy 8-27 ity of 00:00: [place] 00 [facility] HYDROCOD DRUG Active Low Rash 2012-0 Univers ONE INGREDI 8-27 ity of 00:00: [place] [facility] [place] Social History Social Habit Start Date Stop Date Quantity Comments Source ASSERTION 2022-01-02 University of 00:00:00 [facility] Alcohol intake 2022-09-12 2022-09-12 0 /d University of 00:00:00 00:00:00 [facility] Exposure to 2022-08-26 2022-09-05 Not sure University of SARS-CoV-2 (event) 00:00:00 13:37:00 [facility] Cigarettes smoked 2022-02-27 2022-02-27 Univers ity of current (pack per 00:00:00 00:00:00 [facility] ) - Reported Branch Cigarette 2022-02-27 2022-02-27 University of pack-years 00:00:00 00:00:00 [facility] Tobacco use and 2022-02-27 2022-02-27 Smokeless Universit y of exposure 00:00:00 00:00:00 tobacco non-user [facility] Tobacco Comment 2022-02-27 2022-02-27 2-3 cig /day Univers ity of 00:00:00 00:00:00 [facility] History of tobacco 2020-08-14 Cigarette Smoker University of use 00:00:00 [facility] Sex Ass[birth year] At [birth year] NIKIA Childs 00:00:00 00:00:00 Medical Center Smoking Status Start Date Stop Date Source Smokes tobacco daily 2022-02-27 00:00:00 Univers ity of [facility] Medications Ordered Filled Start Stop Current Ordering Indication Dosage Frequency Signature Comments Components Source Medication Medication Date Date Medication? Clinician (SIG) Name Name ibuprofen 2022-0 Yes 600mg 600 mg, Univ ers (IBU) 2-11 Oral, Q6H ity of tablet 600 06:00: ABX, First [place] mg 00 dose on [facility] 09/13/22 at 0000, Until Discontinu ed, Routine ibuprofen 3-0 Yes 600mg 600 mg, Univ ers (IBU) 2-11 Oral, Q6H ity of tablet 600 06:00: ABX, First [place] mg 00 dose on [facility] 09/13/22 at 0000, Until Discontinu ed, Routine cetirizine 3-0 Yes 5mg 5 mg, Univer s (ZYRTEC) 2-10 Oral, ity of tablet 5 mg 15:00: DAILY[place] 00 First [place] Medical on [place] 09/12/22 at 0900, Until Discontinu ed, Routine cetirizine 3-0 Yes 5mg 5 mg, Univer s (ZYRTEC) 2-10 Oral, ity of tablet 5 mg 15:00: DAILY, [place] 00 First dose Medical on Thu [place] 09/12/22 at 0900, Until Discontinu ed, Routine ketorolac 2022-0 2022- Yes 30mg 30 mg, Unive rs (TORADOL) 09-12 Slow IV ity of injection 06:00: 05:59 [place], Q6H [place] 30 mg 00 :00 ABX, 4 Medical doses, Branch First dose on Thu09/12/22 at 0000, Last dose on Thu09/12/22 at 1800, Routine ketorolac 2022-0 2022- Yes 30mg 30 mg, Unive rs (TORADOL) 09-12 Slow IV ity of injection 06:00: 05:59 [place], Q6H [place] 30 mg 00 :00 ABX, 4 Medical doses, Branch First dose on Thu09/12/22 at 0000, Last dose on Thu09/12/22 at 1800, Routine acetaminoph 0 Yes 650mg 650 mg, Un mohamud en 2-10 Oral, Q6H ity of (TYLENOL) 02:00: ABX, First [place] tablet 650 00 dose on Medica l mg [facility] 09/11/22 Branch at 1999, Until Discontinu ed, Routine acetaminoph 2022-0 Yes 650mg 650 mg, Un mohamud en 2-10 Oral, Q6H ity of (TYLENOL) 02:00: ABX, First [place] tablet 650 00 dose on Medica l mg [facility] 09/11/22 Branch at 1999, Until Discontinu ed, Routine acetaminoph 2022-0 Yes [id number] 650mg Take 2 Univers en 325 mg 2-10 103 tablets by ity of tablet 00:00: mouth [place] 00 every 6 Medical (six) Branch hours as needed for Pain (scale 1-3) or Pain (scale 4-6). 2022-0 Yes [id number] 1{tbl} Take 1 Univers vitamin 2-10 103 tablet by ity of w/FA tablet 00:00: mouth [place] the Medical morning. Branch docusate 2022-0 Yes [id number] 200mg Take 2 Univers 100 mg 2-10 103 capsules ity of capsule 00:00: by mouth [place] 00 once daily Medical as needed Branch for Constipati on. ferrous 2022-0 Yes [id number] 325mg Take 1 Univers sulfate 325 2-10 103 tablet by ity of mg (65 mg 00:00: mouth in [facility] iron) 00 the Medical tablet morning Branch and 1 tablet in the evening. ibuprofen 2022-0 Yes [id number] 600mg Take 1 Univers 600 mg 2-10 103 tablet by ity of tablet 00:00: mouth [place] 00 every 6 Medical (six) Branch hours as needed (Pain). Take with food or milk. acetaminoph 2022-0 Yes [id number] 650mg Take 2 Univers en 325 mg 2-10 103 tablets by ity of tablet 00:00: mouth [place] 00 every 6 Medical (six) Branch hours as needed for Pain (scale 1-3) or Pain (scale 4-6). 2022-0 Yes [id number] 1{tbl} Take 1 Univers vitamin 2-10 103 tablet by ity of w/FA tablet 00:00: mouth in [facility] 00 the Medical morning. Branch docusate 0 Yes [id number] 200mg Take 2 Univers 100 mg 2-10 103 capsules ity of capsule 00:00: by mouth [place] 00 once daily Medical as needed Branch for Constipati on. ferrous 2022-0 Yes [id number] 325mg Take 1 Univers sulfate 325 2-10 103 tablet by ity of mg (65 mg 00:00: mouth in [facility]) 00 the Medical tablet morning Branch and 1 tablet in the evening. ibuprofen 2022-0 Yes [id number] 600mg Take 1 Univers 600 mg 2-10 103 tablet by ity of tablet 00:00: mouth [place] 00 every 6 Medical (six) Branch hours as needed (Pain). Take with food or milk. gabapentin 2022-0 2022- Yes [id number] 300mg Take 1 Univers 300 mg 2-10 02-16 103 capsule by ity of capsule 00:00: 05:59 mouth in [place] 00 :00 the Medical morning Branch and 1 capsule at noon and 1 capsule in the evening. Do all this for 5 days. gabapentin 2022-0 2022- Yes [id number] 300mg Take 1 Univers 300 mg 2-10 02-16 103 capsule by ity of capsule 00:00: 05:59 mouth in [place] 00 :00 the Medical morning Branch and 1 capsule at noon and 1 capsule in the evening. Do all this for 5 days. gabapentin 2022-0 Yes 300mg 300 mg, Uni vers (NEURONTIN) 2-09 Oral, TID, it y of capsule 300 20:00: First dose [place] mg 00 on [facility] 09/11/22 at Branch 1400, Until Discontinu ed, Routine gabapentin 2022-0 Yes 300mg 300 mg, Uni vers (NEURONTIN) 2-09 Oral, TID, it y of capsule 300 20:00: First dose [place] mg 00 on [facility] 09/11/22 at Branch 1400, Until Discontinu ed, Routine ondansetron 2022-0 202- No 4mg 4 mg, Slow Univers (ZOFRAN 09-11 IV Push, ity of (PF)) 16:15: 16:22 ONCE, 1 [place] injection 4 00 :00 dose, On Medi rosa isela mg [facility] 09/11/22 Branch at 1015, Routine nalbuphine 2022-0 Yes 5mg 5 mg, Univer s (NUBAIN) 2- Intravenou ity o f injection 5 15:58: s, PRN, 1 [place] mg 16 dose, Medical Starting Branch on [facility] 09/11/22 at 0958, Until Discontinu ed, Routine, itching nalbuphine 2022-0 Yes 5mg 5 mg, Univer s (NUBAIN) 2- Intravenou ity o f injection 5 15:58: s, PRN, 1 [place] mg 16 dose, Medical Starting Branch on [facility] 09/11/22 at 0958, Until Discontinu ed, Routine, itching naloxone 2022-0 2022- Yes .4mg 0.4 mg, Unive rs (NARCAN) 09-11 Slow IV ity of injection 15:58: 00:14 [place], PRN [place] 0.4 mg 16 :19 - [facility] [place], Starting on [facility] 09/11/22 at 0958, Until 09/13/22 at 1814, Routine, Analgesia Recovery naloxone 2022-0 2022- Yes .4mg 0.4 mg, Unive rs (NARCAN) 09-11- Slow IV ity of injection 15:58: 00:14 [place], PRN [place] 0.4 mg 16 :19 - SEE [facility] NS, Starting on [facility] 09/11/22 at 0958, Until 09/13/22 at 1814, Routine, Analgesia Recovery mupirocin 2022-0 Yes Intra-op [facility] ers (BACTROBAN 09-11 ity of OINT) 2 % 15:23: [place] skin 00 Medical ointment [place] mupirocin 2022-0 Yes Intra-op [facility] ers (BACTROBAN 09-11 ity of OINT) 2 % 15:23: [place] skin 00 Medical ointment [place] lactated 0 2022- No 1000mL at 125 [facility] ers ringers IV 09-11 02-09 mL/hr, ity of infusion 15:15: 21:15 1,000 mL, [place] as 1,000 mL 00 :00 IV Medical Infusion, [place] ONCE, 1 dose, On [place] 09/11/22 at 0915, Routine sodium 2022-0 Yes PRN, Univers chloride 09-11 Starting ity of 0.9 % 14:56: on [place] irrigation 00 09/11/22 at [facility] solution [address] [place] [address] Until Discontinu ed, Intra-op sodium 2022-0 Yes PRN, Univers chloride 09-11 Starting ity of 0.9 % 14:56: on [place] irrigation 00 09/11/22 at [facility] solution [address] [place] [address] Until Discontinu ed, Intra-op ziprasidone 0 Yes 20mg 20 mg, [facility] ers (GEODON) 209 Oral, BID, ity o f capsule 20 14:30: First dose [place] mg 00 on [facility] Medical 09/11/22 at [place] 0830, Until Discontinu ed ziprasidone 0 Yes 20mg 20 mg, [facility] ers (GEODON) 2-09 Oral, BID, ity o f capsule 20 14:30: First dose [place] mg 00 on [place] Medical 09/11/22 at [place] 0830, Until Discontinu ed rho(D) 2022-0 Yes 300ug 300 mcg, Univer s immune - Intramuscu ity of globulin 14:21: lar, ONCE, [place] as (RHOGAM) 17 For 1 Medical syringe 300 dose, [facility] Conditiona l, Routine rho(D) 0 Yes 300ug 300 mcg, Univer s immune - Intramuscu ity of globulin 14:21: lar, ONCE, [place] (RHOGAM) 17 For 1 Medical syringe 300 dose, Branch mcg Conditiona l, Routine diphenhydrA 2023-0 Yes 25mg 25 mg, Univ ers MINE 2-09 Slow IV ity of (BENADRYL) 14:21: Push, [place] injection 11 Q6HPRN, Medical 25 mg Starting Branch on [place] 09/11/22 at 0821, Until Discontinu ed, Routine, Itching diphenhydrA 2023-0 Yes 25mg 25 mg, Univ ers [facility] 2-09 Oral, ity of (BENADRYL) 14:21: Q6HPRN, [place] tablet 25 11 Starting Medica l mg on [place] Branch 09/11/22 at 0821, Until Discontinu ed, Routine, Sleep, Itching ondansetron 2023-0 Yes 4mg 4 mg, Slow Univers (ZOFRAN 2- IV Push, ity of (PF)) 14:21: Q8HPRN, [place] injection 4 11 Starting Medi rosa isela mg on [place] Branch 09/11/22 at 0821, Until Discontinu ed, Routine, Nausea and Vomiting (N/V) bisacodyL 3-0 Yes 10mg 10 mg, Univer s (DULCOLAX) 2- Rectal, ity of suppository 14:21: QDAILYPRN, [place] 10 mg 11 Starting Medical on [place] Branch 09/11/22 at 0821, Until Discontinu ed, Routine, Constipati on simethicone 2023-0 Yes 160mg 160 mg, Un mohamud (GAS RELIEF 2-09 Oral, ity of (SIMETHICON 14:21: PC+HSPRN, [place] E)) 11 Starting Medical chewable on [place] Branch tablet 160 09/11/22 at mg 0821, Until Discontinu ed, Routine, Gas diphenhydrA 2023-0 Yes 25mg 25 mg, Univ ers MINE 2-09 Slow IV ity of (BENADRYL) 14:21: Push, [place] injection 11 Q6HPRN, Medical 25 mg Starting Branch on [place] 09/11/22 at 0821, Until Discontinu ed, Routine, Itching diphenhydrA 2023-0 Yes 25mg 25 mg, Univ ers MINE 2-09 Oral, ity of (BENADRYL) 14:21: Q6HPRN, [place] tablet 25 11 Starting Medica l mg on [place] Branch 09/11/22 at 0821, Until Discontinu ed, Routine, Sleep, Itching ondansetron 2022-0 Yes 4mg 4 mg, Slow Univers (ZOFRAN 2- IV Push, ity of (PF)) 14:21: Q8HPRN, [place] injection 4 11 Starting Medi rosa isela mg on [place] Branch 09/11/22 at 0821, Until Discontinu ed, Routine, Nausea and Vomiting (N/V) bisacodyL 2022-0 Yes 10mg 10 mg, Univer s (DULCOLAX) 2-09 Rectal, ity of suppository 14:21: QDAILYPRN, [place] 10 mg 11 Starting Medical on [place] Branch 09/11/22 at 0821, Until Discontinu ed, Routine, Constipati on simethicone 2022-0 Yes 160mg 160 mg, Un mohamud (GAS RELIEF 2 Oral, ity of (SIMETHICON 14:21: PC+HSPRN, [place] E)) 11 Starting Medical chewable on [facility] tablet 160 09/11/22 at mg 0821, Until Discontinu ed, Routine, Gas docusate 2022-0 Yes 200mg 200 mg, Unive rs (COLACE) 2-09 Oral, ity of capsule 200 14:21: QDAILYPRN, [place] mg 10 Starting Medical on [place] Branch 09/11/22 at 0821, Until Discontinu ed, Routine, Constipati on magnesium 2022-0 Yes 30mL 30 mL, Univer s hydroxide 2-09 Oral, ity of (MILK OF 14:21: QDAILYPRN, [place] MAGNESIA) 10 Starting Medica l 400 mg/5 mL on [place] Branch suspension 09/11/22 at 30 mL 0821, Until Discontinu ed, Routine, Constipati on lactated 2022-0 Yes 1000mL at 125 Unive rs ringers IV 2-09 mL/hr, ity of infusion 14:21: 1,000 mL, [place] 1,000 mL 10 IV Medical Infusion, Branch PRN, 1 dose, Starting on [place] 09/11/22 at 0821, Until Discontinu ed, Routine docusate Yes 200mg 200 mg, Unive rs (COLACE) 09-11 Oral, ity of capsule 200 14:21: QDAILYPRN, [place] mg 10 Starting Medical on [place] Branch 09/11/22 at 0821, Until Discontinu ed, Routine, Constipati on magnesium Yes 30mL 30 mL, Univer s hydroxide 09-11 Oral, ity of (MILK OF 14:21: QDAILYPRN, [place] MAGNESIA) 10 Starting Medica l 400 mg/5 mL on [place] Branch suspension 09/11/22 at 30 mL 0821, Until Discontinu ed, Routine, Constipati on lactated Yes 1000mL at 125 Unive rs ringers IV 2 mL/hr, ity of infusion 14:21: 1,000 mL, [place] 1,000 mL 10 IV Medical Infusion, Branch PRN, 1 dose, Starting on [place] 09/11/22 at 0821, Until Discontinu ed, Routine sodium 2022- No 30mL 30 mL, Univers citrate-cit 09-11 Oral, ity of cm acid 11:59: 13:17 PRE-PROCED [place] (BICITRA) 02 :00 URE ONCE, Medic al 500-334 1 dose, Branch mg/5 mL Starting solution 30 on [place] mL 09/11/22 at 0559, Until Discontinu ed, Routine, Surgery/Pr ocedure [id number] IV 2022- No 1000mL at 1-125 U nivers infusion 09-11- mL/hr, IV ity o f 1,000 mL 11:59: 14:21 Infusion, [place] 02 :15 TITRATE, Medical Starting Branch on [place] 09/11/22 at 0559, Until [place] 09/11/22 at 0821, Routine ceFAZolin 2022- No 2000mg 2,000 mg, Univers (ANCEF) 09-11 IV ity of 2,000 mg in 11:59: 14:21 Piggyback, [place] NaCl 0.9% 02 :15 O.R. Medical (NS) 100 mL HOLDING Branc h MINI-BAG ONCE, Starting on [place] 09/11/22 at 0559, Until [place] 09/11/22 at 0821, Administer over 30 Minutes, 100 mL
Reas on for Anti-Infec tive: Surgical Prophylaxi s
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
Duration of therapy: within 24 hours of surgery famotidine Yes 20mg 20 mg, Unive rs (PEPCID 09-04 Slow IV ity of (PF)) 14:00: Push, [place] injection 00 Q12H, Medical 20 mg First dose Branch on [place] 09/04/22 at 0800, Until Discontinu ed, Routine acetaminoph 2022- No 1000mg 1,000 mg, Univers en 09-04 Oral, ity of (TYLENOL) 08:30: 07:44 ONCE, 1 [place] tablet 00 :00 dose, On Medical 1,000 mg [place] 09/04/22 Branc h at 0230, Routine diphenhydrA 2022- No 25mg 25 mg, Uni vers MINE 09-04 Oral, ity of (BENADRYL) 08:30: 07:44 ONCE, 1 [place] tablet 25 00 :00 dose, On Medica l mg [facility] 09/04/22 Branch at 0230, Routine NaCl 0.9% 2022- No 1000mL at 999 Uni vers (NS) IV 09-04 mL/hr, IV ity of infusion 07:00: 06:36 Infusion, [place] 1,000 mL 00 :00 ONCE, 1 Medical dose, On Branch [place] 09/04/22 at 0100, Routine FENTanyl PF 2022- Yes 50ug 50 mcg, Un mohamud (SUBLIMAZE 09-04 Slow IV ity o f (PF)) 06:14: 05:59 Push, ONCE [place] injection 37 :00 PRN, 1 Medical 50 mcg dose, Branch Starting on [place] 09/04/22 at 0014, Until [place] 09/04/22 at 2359, Routine, Pain (scale 7-10) alum-mag 0 Yes 30mL 30 mL, Univers hydroxide-s 09-04 Oral, ity of imeth 06:13: Q6HPRN, [place] (MAALOX 18 Starting Medical PLUS / on [place] [facility] MAG-AL 09/04/22 at PLUS) 0013, 200-200-20 Until mg/5 mL Discontinu suspension ed, 30 mL Routine, Indigestio n ferrous 2022- No Take by [facility] s sulfate 08-29 mouth. ity of (IRON ORAL) 11:17: 00:00 [place] 46 :00 [facility] ferrous 2022-0 Yes Take by [facility] sulfate 1-12 mouth. ity of (IRON ORAL) 09:59: [address] ferrous 0 Yes Take by [facility] sulfate 1-12 mouth. ity of (IRON ORAL) 09:59: [address] ferrous 0 Yes Take by [facility] sulfate 1-12 mouth. ity of (IRON ORAL) 09:59: [address] ferrous Yes Take by [facility] sulfate 1-12 mouth. ity of (IRON ORAL) 09:59: [address] ferrous 0 Yes Take by [facility] sulfate 1-12 mouth. ity of (IRON ORAL) 09:59: [address] ferrous Yes Take by [facility] sulfate 1-12 mouth. ity of (IRON ORAL) 09:59: [address] ferrous 0 Yes Take by [facility] sulfate 1-12 mouth. ity of (IRON ORAL) 09:59: [address] ferrous Yes Take by [facility] sulfate 1-12 mouth. ity of (IRON ORAL) 09:59: [address] ferrous 2022-0 Yes Take by [facility] sulfate 1-12 mouth. ity of (IRON ORAL) 09:59: [address] butorphanol 2022- No 1mg 1 mg, Univ ers (STADOL) 08-12 Intravenou ity of injection 1 05:00: 04:25 s, ONCE, 1 [place] mg 00 :00 dose, On Medical 08/11/22 Branch at 2300, Routine diphenhydrA 2022- No 25mg 25 mg, Uni vers MINE 08-12 Oral, ity of (BENADRYL) 02:45: 02:07 ONCE, 1 [place] tablet 25 00 :00 dose, On Medica l mg 08/11/22 Branch at 2045, Routine metoclopram 2022- No 10mg 10 mg, Uni vers richa HCl 1-10 01-10 Oral, ity of (REGLAN) 02:45: 02:07 ONCE, 1 [place] tablet 10 00 :00 dose, On Medica l mg [facility] 08/11/22 Branch at 2045, Routine acetaminoph Yes 1000mg 1,000 mg, Univers en 1-10 Oral, ity of (TYLENOL) 02:44: [id number], [place] tablet 03 Starting Medical 1,000 mg on Thu Branch 08/11/22 at 2044, Until Discontinu ed, Routine, pain ferrous Yes Take by Univers sulfate 1-10 mouth. ity of (IRON ORAL) 00:32: [address] ferrous Yes Take by Univers sulfate 1-10 mouth. ity of (IRON ORAL) 00:32: [address] ondansetron 2021-08- No 4mg 4 mg, Slow Univers (ZOFRAN 07-31 IV Push, ity of (PF)) 02:00: 01:18 ONCE, On [place] injection 4 00 :00 Wed Medical mg 07/30/22 Branch at 2000, For 1 dose
Do ses of ondansetro n 16 mg and above need to be administer ed via IV piggyback. For Dose >=24mg ECG monitoring is advisable.
terbutaline 2021-08 No .25mg 0.25 mg, Univers (BRETHINE) 07-31 Subcutaneo it y of injection 01:15: 00:27 [place] 0.25 mg 00 :00 1 dose, On Medica l [facility] Branch 07/30/22 at 1915, Routine NaCl 0.9% 2021-08- No 1000mL at 999 Uni vers (NS) IV 12-29 mL/hr, IV ity of infusion 01:15: 00:50 Infusion, [place] 1,000 mL 00 :29 ONCE, 1 Medical dose, On Branch 07/30/22 at 1915, Routine ferrous 2021-08 Yes Take by Univers sulfate 2-28 mouth. ity of (IRON ORAL) 21:21: [address] ferrous 2021-08 Yes Take by Univers sulfate 2-28 mouth. ity of (IRON ORAL) 21:21: [address] ferrous 2021-08 Yes Take by [facility] sulfate 2-28 mouth. ity of (IRON ORAL) 21:21: [address] ferrous 2021-08 Yes Take by [facility] sulfate 2-28 mouth. ity of (IRON ORAL) 21:21: [address] ondansetron 2021-08- No 4mg 4 mg, Univ ers (ZOFRAN-ODT 2-28 12- Oral, ity of ) 08:45: 07:48 ONCE, 1 [place] disintegrat 00 :00 dose, On Medi rosa isela ing tablet Wed Branch 4 mg 07/30/22 at 0245, Routine ondansetron 2021-08 Yes [id number] 4mg Take 1 Univers 4 mg 2-28 tablet by ity of disintegrat 00:00: mouth [place] ing tablet 00 every 8 Medica l (eight) Branch hours as needed for Nausea and Vomiting (N/V). ondansetron 2021-08 Yes [id number] 4mg Take 1 Univers 4 mg 2-28 tablet by ity of disintegrat 00:00: mouth [place] ing tablet 00 every 8 Medica l (eight) Branch hours as needed for Nausea and Vomiting (N/V). ondansetron 2021-08 Yes [id number] 4mg Take 1 Univers 4 mg 2-28 tablet by ity of disintegrat 00:00: mouth [place] ing tablet 00 every 8 Medica l (eight) Branch hours as needed for Nausea and Vomiting (N/V). ondansetron 2021-08 Yes [id number] 4mg Take 1 Univers 4 mg 2-28 tablet by ity of disintegrat 00:00: mouth [place] ing tablet 00 every 8 Medica l (eight) Branch hours as needed for Nausea and Vomiting (N/V). ondansetron 2021-08 Yes [id number] 4mg Take 1 Univers 4 mg 2-28 tablet by ity of disintegrat 00:00: mouth [place] ing tablet 00 every 8 Medica l (eight) Branch hours as needed for Nausea and Vomiting (N/V). ondansetron 2021-08 Yes [id number] 4mg Take 1 Univers 4 mg 2-28 tablet by ity of disintegrat 00:00: mouth [place] ing tablet 00 every 8 Medica l (eight) Branch hours as needed for Nausea and Vomiting (N/V). ondansetron 2021-08 Yes [id number] 4mg Take 1 Univers 4 mg 2-28 tablet by ity of disintegrat 00:00: mouth [place] ing tablet 00 every 8 Medica l (eight) Branch hours as needed for Nausea and Vomiting (N/V). ondansetron 2021-08 Yes [id number] 4mg Take 1 Univers 4 mg 2-28 tablet by ity of disintegrat 00:00: mouth [place] ing tablet 00 every 8 Medica l (eight) Branch hours as needed for Nausea and Vomiting (N/V). ondansetron 2021-08 Yes [id number] 4mg Take 1 Univers 4 mg 2-28 tablet by ity of disintegrat 00:00: mouth [place] ing tablet 00 every 8 Medica l (eight) Branch hours as needed for Nausea and Vomiting (N/V). ondansetron 2021-08 Yes [id number] 4mg Take 1 Univers 4 mg 2-28 tablet by ity of disintegrat 00:00: mouth [place] ing tablet 00 every 8 Medica l (eight) Branch hours as needed for Nausea and Vomiting (N/V). ondansetron 2021-08 Yes [id number] 4mg Take 1 Univers 4 mg 2-28 tablet by ity of disintegrat 00:00: mouth [place] ing tablet 00 every 8 Medica l (eight) Branch hours as needed for Nausea and Vomiting (N/V). ondansetron 2021-08 Yes [id number] 4mg Take 1 Univers 4 mg 2-28 tablet by ity of disintegrat 00:00: mouth [place] ing tablet 00 every 8 Medica l (eight) Branch hours as needed for Nausea and Vomiting (N/V). ondansetron 2021-08 Yes [id number] 4mg Take 1 Univers 4 mg 2-28 tablet by ity of disintegrat 00:00: mouth [place] ing tablet 00 every 8 Medica l (eight) Branch hours as needed for Nausea and Vomiting (N/V). ondansetron 2021-08 Yes [id number] 4mg Take 1 Univers 4 mg 2-28 tablet by ity of disintegrat 00:00: mouth [place] ing tablet 00 every 8 Medica l (eight) Branch hours as needed for Nausea and Vomiting (N/V). ondansetron 2021-08 Yes [id number] 4mg Take 1 Univers 4 mg 2-28 tablet by ity of disintegrat 00:00: mouth [place] ing tablet 00 every 8 Medica l (eight) Branch hours as needed for Nausea and Vomiting (N/V). ondansetron 2021-08 Yes [id number] 4mg Take 1 Univers 4 mg 2-28 tablet by ity of disintegrat 00:00: mouth [place] ing tablet 00 every 8 Medica l (eight) Branch hours as needed for Nausea and Vomiting (N/V). ondansetron 2021-08 Yes [id number] 4mg Take 1 Univers 4 mg 2-28 tablet by ity of disintegrat 00:00: mouth [place] ing tablet 00 every 8 Medica l (eight) Branch hours as needed for Nausea and Vomiting (N/V). ondansetron 2021-08 Yes [id number] 4mg Take 1 Univers 4 mg 2-28 tablet by ity of disintegrat 00:00: mouth [place] ing tablet 00 every 8 Medica l (eight) Branch hours as needed for Nausea and Vomiting (N/V). ondansetron 2021-08 Yes [id number] 4mg Take 1 Univers 4 mg 2-28 tablet by ity of disintegrat 00:00: mouth [place] ing tablet 00 every 8 Medica l (eight) Branch hours as needed for Nausea and Vomiting (N/V). ondansetron 2021-08 Yes [id number] 4mg Take 1 Univers 4 mg 2-28 tablet by ity of disintegrat 00:00: mouth [place] ing tablet 00 every 8 Medica l (eight) Branch hours as needed for Nausea and Vomiting (N/V). ondansetron 2021-08 Yes [id number] 4mg Take 1 Univers 4 mg 2-28 tablet by ity of disintegrat 00:00: mouth [place] ing tablet 00 every 8 Medica l (eight) Branch hours as needed for Nausea and Vomiting (N/V). ondansetron 2021-08 Yes [id number] 4mg Take 1 Univers 4 mg 2-28 tablet by ity of disintegrat 00:00: mouth [place] ing tablet 00 every 8 Medica l (eight) Branch hours as needed for Nausea and Vomiting (N/V). ondansetron 2021-08 Yes [id number] 4mg Take 1 Univers 4 mg 2-28 tablet by ity of disintegrat 00:00: mouth [place] ing tablet 00 every 8 Medica l (eight) Branch hours as needed for Nausea and Vomiting (N/V). ondansetron 2021-08 Yes [id number] 4mg Take 1 Univers 4 mg 2-28 tablet by ity of disintegrat 00:00: mouth [place] ing tablet 00 every 8 Medica l (eight) Branch hours as needed for Nausea and Vomiting (N/V). ondansetron 2021-08 Yes [id number] 4mg Take 1 Univers 4 mg 2-28 tablet by ity of disintegrat 00:00: mouth [place] ing tablet 00 every 8 Medica l (eight) Branch hours as needed for Nausea and Vomiting (N/V). ondansetron 2021-08 Yes [id number] 4mg Take 1 Univers 4 mg 2-28 tablet by ity of disintegrat 00:00: mouth [place] ing tablet 00 every 8 Medica l (eight) Branch hours as needed for Nausea and Vomiting (N/V). ondansetron 2021-08 Yes [id number] 4mg Take 1 Univers 4 mg 2-28 tablet by ity of disintegrat 00:00: mouth [place] ing tablet 00 every 8 Medica l (eight) Branch hours as needed for Nausea and Vomiting (N/V). ondansetron 2021-08 Yes [id number] 4mg Take 1 Univers 4 mg 2-28 tablet by ity of disintegrat 00:00: mouth [place] ing tablet 00 every 8 Medica l (eight) Branch hours as needed for Nausea and Vomiting (N/V). ferrous 2021-08 Yes Take by Univers sulfate 2-16 mouth. ity of (IRON ORAL) 08:50: [address] ferrous 2021-08 Yes Take by Univers sulfate 2-16 mouth. ity of (IRON ORAL) 08:50: [address] ferrous 2021-08 Yes Take by Univers sulfate 2-16 mouth. ity of (IRON ORAL) 08:50: [address] ferrous 2021-08 Yes Take by Univers sulfate 2-16 mouth. ity of (IRON ORAL) 08:50: [address] ferrous 2021-08 Yes Take by Univers sulfate 2-16 mouth. ity of (IRON ORAL) 08:50: [place] [id number] Medical Branch ferrous 2021-08 Yes Take by Univers sulfate 2-16 mouth. ity of (IRON ORAL) 08:50: [place] [address] Medical Branch ferrous 2021-08 Yes Take by Univers sulfate 2-16 mouth. ity of (IRON ORAL) 08:50: [address] Branch ferrous 2021-08 Yes Take by Univers sulfate 2-16 mouth. ity of (IRON ORAL) 08:50: [address] Branch ferrous 2021-08 Yes Take by Univers sulfate 2-16 mouth. ity of (IRON ORAL) 08:50: [address] Branch benzonatate 2021-08 Yes [id number] 100mg Take 1 Univers 100 mg 2-16 capsule by ity of capsule 00:00: mouth [place] 00 every 8 Medical (eight) Branch hours as needed for Cough. benzonatate 2021-08 Yes [id number] 100mg Take 1 Univers 100 mg 2-16 capsule by ity of capsule 00:00: mouth [place] 00 every 8 Medical (eight) Branch hours as needed for Cough. benzonatate 2021-08 Yes [id number] 100mg Take 1 [facility] 100 mg 2-16 capsule by ity of capsule 00:00: mouth [place] 00 every 8 Medical (eight) Branch hours as needed for Cough. benzonatate 2021-08 Yes [id number] 100mg Take 1 [facility] 100 mg 2-16 capsule by ity of capsule 00:00: mouth [place] 00 every 8 Medical (eight) Branch hours as needed for Cough. benzonatate 2021-08 Yes [id number] 100mg Take 1 Univers 100 mg 2-16 capsule by ity of capsule 00:00: mouth [place] 00 every 8 Medical (eight) Branch hours as needed for Cough. benzonatate 2021-08 Yes [id number] 100mg Take 1 Univers 100 mg 2-16 capsule by ity of capsule 00:00: mouth [place] 00 every 8 Medical (eight) Branch hours as needed for Cough. benzonatate 2021-08 Yes [id number] 100mg Take 1 Univers 100 mg 2-16 capsule by ity of capsule 00:00: mouth [place] 00 every 8 Medical (eight) Branch hours as needed for Cough. benzonatate 2021-08 Yes [id number] 100mg Take 1 Univers 100 mg 2-16 capsule by ity of capsule 00:00: mouth [place] 00 every 8 Medical (eight) Branch hours as needed for Cough. benzonatate 2021-08 Yes [id number] 100mg Take 1 Univers 100 mg 2-16 capsule by ity of capsule 00:00: mouth [place] 00 every 8 Medical (eight) Branch hours as needed for Cough. benzonatate 2021-08 Yes [id number] 100mg Take 1 [facility] 100 mg 2-16 capsule by ity of capsule 00:00: mouth [place] 00 every 8 Medical (eight) Branch hours as needed for Cough. benzonatate 2021-08 Yes [id number] 100mg Take 1 [facility] 100 mg 2-16 capsule by ity of capsule 00:00: mouth [place] 00 every 8 Medical (eight) Branch hours as needed for Cough. benzonatate 2021-08 Yes [id number] 100mg Take 1 [facility] 100 mg 2-16 capsule by ity of capsule 00:00: mouth [place] 00 every 8 Medical (eight) Branch hours as needed for Cough. benzonatate 2021-08 Yes [id number] 100mg Take 1 Univers 100 mg 2-16 capsule by ity of capsule 00:00: mouth [place] 00 every 8 Medical (eight) Branch hours as needed for Cough. benzonatate 2021-08 Yes [id number] 100mg Take 1 [facility] 100 mg 2-16 capsule by ity of capsule 00:00: mouth [place] 00 every 8 Medical (eight) Branch hours as needed for Cough. benzonatate 2021-08 Yes [id number] 100mg Take 1 [facility] 100 mg 2-16 capsule by ity of capsule 00:00: mouth [place] 00 every 8 Medical (eight) Branch hours as needed for Cough. benzonatate 2021-08 Yes [id number] 100mg Take 1 [facility] 100 mg 2-16 capsule by ity of capsule 00:00: mouth [place] 00 every 8 Medical (eight) Branch hours as needed for Cough. benzonatate 2021-08 Yes [id number] 100mg Take 1 Univers 100 mg 2-16 capsule by ity of capsule 00:00: mouth [place] 00 every 8 Medical (eight) Branch hours as needed for Cough. benzonatate 2021-08 Yes [id number] 100mg Take 1 Univers 100 mg 2-16 capsule by ity of capsule 00:00: mouth [place] 00 every 8 Medical (eight) Branch hours as needed for Cough. benzonatate 2021-08 Yes [id number] 100mg Take 1 [facility] 100 mg 2-16 capsule by ity of capsule 00:00: mouth [place] 00 every 8 Medical (eight) Branch hours as needed for Cough. benzonatate 2021-08 Yes [id number] 100mg Take 1 [facility] 100 mg 2-16 capsule by ity of capsule 00:00: mouth [place] 00 every 8 Medical (eight) Branch hours as needed for Cough. benzonatate 2021-08 Yes [id number] 100mg Take 1 Univers 100 mg 2-16 capsule by ity of capsule 00:00: mouth [place] 00 every 8 Medical (eight) Branch hours as needed for Cough. benzonatate 2021-08 Yes [id number] 100mg Take 1 Univers 100 mg 2-16 capsule by ity of capsule 00:00: mouth [place] 00 every 8 Medical (eight) Branch hours as needed for Cough. benzonatate 2021-08 Yes [id number] 100mg Take 1 Univers 100 mg 2-16 capsule by ity of capsule 00:00: mouth [place] 00 every 8 Medical (eight) Branch hours as needed for Cough. benzonatate 2021-08 Yes [id number] 100mg Take 1 Univers 100 mg 2-16 capsule by ity of capsule 00:00: mouth [place] 00 every 8 Medical (eight) Branch hours as needed for Cough. benzonatate 2021-08 Yes [id number] 100mg Take 1 Univers 100 mg 2-16 capsule by ity of capsule 00:00: mouth [place] 00 every 8 Medical (eight) Branch hours as needed for Cough. benzonatate 2021-08 Yes [id number] 100mg Take 1 Univers 100 mg 2-16 capsule by ity of capsule 00:00: mouth [place] 00 every 8 Medical (eight) Branch hours as needed for Cough. benzonatate 2021-08 Yes [id number] 100mg Take 1 Univers 100 mg 2-16 capsule by ity of capsule 00:00: mouth [place] 00 every 8 Medical (eight) Branch hours as needed for Cough. benzonatate 2021-08 Yes [id number] 100mg Take 1 Univers 100 mg 2-16 capsule by ity of capsule 00:00: mouth [place] 00 every 8 Medical (eight) Branch hours as needed for Cough. benzonatate 2021-08 Yes [id number] 100mg Take 1 Univers 100 mg 2-16 capsule by ity of capsule 00:00: mouth [place] 00 every 8 Medical (eight) Branch hours as needed for Cough. benzonatate 2021-08 Yes [id number] 100mg Take 1 Univers 100 mg 2-16 capsule by ity of capsule 00:00: mouth [place] 00 every 8 Medical (eight) Branch hours as needed for Cough. benzonatate 2021-08 Yes [id number] 100mg Take 1 Univers 100 mg 2-16 capsule by ity of capsule 00:00: mouth [place] 00 every 8 Medical (eight) Branch hours as needed for Cough. benzonatate 2021-08 Yes [id number] 100mg Take 1 Univers 100 mg 2-16 capsule by ity of capsule 00:00: mouth [place] 00 every 8 Medical (eight) Branch hours as needed for Cough. benzonatate 2021-08 Yes [id number] 100mg Take 1 [facility] 100 mg 2-16 capsule by ity of capsule 00:00: mouth [place] 00 every 8 Medical (eight) Branch hours as needed for Cough. benzonatate 2021-08 Yes [id number] 100mg Take 1 [facility] 100 mg 2-16 capsule by ity of capsule 00:00: mouth 00 every 8 Medical (eight) Branch hours as needed for Cough. LATUDA 2021-08 Yes PLEASE SEE Un [facility] mg tablet 0-27 ATTACHED ity of 00:00: FOR DETAILED Medical DIRECTIONS Branch LATUDA 20 2021-08 Yes PLEASE SEE Un [facility] mg tablet 0-27 ATTACHED ity of 00:00: FOR DETAILED Medical DIRECTIONS Branch LATUDA 20 2021-08 Yes PLEASE SEE Un [place] mg tablet 0-27 ATTACHED ity of 00:00: FOR DETAILED Medical DIRECTIONS Branch LATUDA 20 2021-08 Yes PLEASE SEE Un [place] mg tablet 0-27 ATTACHED ity of 00:00: FOR DETAILED Medical DIRECTIONS Branch LATUDA 20 2021-08 Yes PLEASE SEE Un [place] mg tablet 0-27 ATTACHED ity of 00:00: FOR DETAILED Medical DIRECTIONS Branch LATUDA 20 2021-08 Yes PLEASE SEE Un [place] mg tablet 0-27 ATTACHED ity of 00:00: FOR DETAILED Medical DIRECTIONS Branch LATUDA 20 2021-08 Yes PLEASE SEE [facility] [place] mg tablet 0-27 ATTACHED ity of 00:00: FOR DETAILED Medical DIRECTIONS Branch LATUDA 20 2021-08 Yes PLEASE SEE [facility] [place] mg tablet 0-27 ATTACHED ity of 00:00: FOR DETAILED Medical DIRECTIONS Branch LATUDA 20 2021-08 Yes PLEASE SEE [facility] [place] mg tablet 0-27 ATTACHED ity of 00:00: FOR DETAILED Medical DIRECTIONS Branch LATUDA 20 2021- Yes PLEASE SEE [facility] [place] mg tablet 0-27 ATTACHED ity of 00:00: FOR DETAILED Medical DIRECTIONS Branch LATUDA 20 2021- Yes PLEASE SEE [facility] [place] mg tablet 0-27 ATTACHED ity of 00:00: FOR DETAILED Medical DIRECTIONS Branch LATUDA 20 2021- Yes PLEASE SEE [facility] [place] mg tablet 0-27 ATTACHED ity of 00:00: FOR DETAILED Medical DIRECTIONS Branch LATUDA 20 2021- Yes PLEASE SEE [facility] [place] mg tablet 0-27 ATTACHED ity of 00:00: FOR DETAILED Medical DIRECTIONS Branch LATUDA 20 2021- Yes PLEASE SEE [facility] [place] mg tablet 0-27 ATTACHED ity of 00:00: FOR DETAILED Medical DIRECTIONS Branch LATUDA 20 2021- Yes PLEASE SEE [facility] [place] mg tablet 0-27 ATTACHED ity of 00:00: FOR DETAILED Medical DIRECTIONS Branch LATUDA 20 2021- Yes PLEASE SEE [facility] [place] mg tablet 0-27 ATTACHED ity of 00:00: FOR DETAILED Medical DIRECTIONS Branch LATUDA 20 2021- Yes PLEASE SEE [place] mg tablet 0-27 ATTACHED ity of 00:00: FOR DETAILED Medical DIRECTIONS Branch LATUDA 20 2021- Yes PLEASE SEE [place] mg tablet 0-27 ATTACHED ity of 00:00: FOR DETAILED Medical DIRECTIONS Branch LATUDA 20 2021- Yes PLEASE SEE [facility] [place] mg tablet 0-27 ATTACHED ity of 00:00: FOR DETAILED Medical DIRECTIONS Branch LATUDA 20 2021- Yes PLEASE SEE [facility] [place] mg tablet 0-27 ATTACHED ity of 00:00: FOR DETAILED Medical DIRECTIONS Branch LATUDA 20 2021- Yes PLEASE SEE [facility] [place] mg tablet 0-27 ATTACHED ity of 00:00: FOR DETAILED Medical DIRECTIONS Branch LATUDA 20 2021- Yes PLEASE SEE [facility] [place] mg tablet 0-27 ATTACHED ity of 00:00: FOR DETAILED Medical DIRECTIONS Branch LATUDA 20 2021- Yes PLEASE SEE [facility] [place] mg tablet 0-27 ATTACHED ity of 00:00: FOR DETAILED Medical DIRECTIONS Branch LATUDA 20 2021- Yes PLEASE SEE [facility] [place] mg tablet 0-27 ATTACHED ity of 00:00: FOR DETAILED Medical DIRECTIONS Branch LATUDA 20 2021- Yes PLEASE SEE [facility] [place] mg tablet 0-27 ATTACHED ity of 00:00: FOR DETAILED Medical DIRECTIONS Branch LATUDA 20 2021- Yes PLEASE SEE [facility] [place] mg tablet 0-27 ATTACHED ity of 00:00: FOR DETAILED Medical DIRECTIONS Branch LATUDA 20 2021- Yes PLEASE SEE [facility] [place] mg tablet 0-27 ATTACHED ity of 00:00: FOR DETAILED Medical DIRECTIONS Branch LATUDA 20 2021- Yes PLEASE SEE [facility] [place] mg tablet 0-27 ATTACHED ity of 00:00: FOR DETAILED Medical DIRECTIONS Branch LATUDA 20 2021- Yes PLEASE SEE [facility] [place] mg tablet 0-27 ATTACHED ity of 00:00: FOR DETAILED Medical DIRECTIONS Branch LATUDA 20 2021- Yes PLEASE SEE [facility] [place] mg tablet 0-27 ATTACHED ity of 00:00: FOR DETAILED Medical DIRECTIONS Branch LATUDA 20 2021- Yes PLEASE SEE [facility] [place] mg tablet 0-27 ATTACHED ity of 00:00: FOR DETAILED Medical DIRECTIONS Branch LATUDA 20 2021- Yes PLEASE SEE [facility] [place] mg tablet 0-27 ATTACHED ity of 00:00: FOR DETAILED Medical DIRECTIONS Branch LATUDA 20 2021- Yes PLEASE SEE [facility] [place] mg tablet 0-27 ATTACHED ity of 00:00: FOR DETAILED Medical DIRECTIONS Branch LATUDA 20 2021- Yes PLEASE SEE [facility] [place] mg tablet 0-27 ATTACHED ity of 00:00: FOR DETAILED Medical DIRECTIONS Branch LATUDA 20 2021- Yes PLEASE SEE [facility] [place] mg tablet 0-27 ATTACHED ity of 00:00: FOR DETAILED Medical DIRECTIONS Branch LATUDA 20 2021- Yes PLEASE SEE [facility] [place] [facility] tablet 0-27 ATTACHED ity of 00:00: FOR DETAILED Medical DIRECTIONS Branch LATUDA 20 2021- Yes PLEASE SEE [facility] [place] mg tablet 0-27 ATTACHED ity of 00:00: FOR DETAILED Medical DIRECTIONS Branch LATUDA 20 2021- Yes PLEASE SEE [facility] [place] mg tablet 0-27 ATTACHED ity of 00:00: FOR DETAILED Medical DIRECTIONS Branch LATUDA 20 2021- Yes PLEASE SEE [facility] [place] mg tablet 0-27 ATTACHED ity of 00:00: FOR DETAILED Medical DIRECTIONS Branch LATUDA 20 2021- Yes PLEASE SEE [facility] [place] mg tablet 0-27 ATTACHED ity of 00:00: FOR DETAILED Medical DIRECTIONS Branch LATUDA 20 2021- Yes PLEASE SEE [facility] [place] mg tablet 0-27 ATTACHED ity of 00:00: FOR DETAILED Medical DIRECTIONS Branch LATUDA 20 2021-1 Yes PLEASE SEE [facility] [place] mg tablet 0-27 ATTACHED ity of 00:00: FOR DETAILED Medical DIRECTIONS Branch LATUDA 20 2021- Yes PLEASE SEE [facility] [place] mg tablet 0-27 ATTACHED ity of 00:00: FOR DETAILED Medical DIRECTIONS Branch LATUDA 20 2021- Yes PLEASE SEE [facility] [place] mg tablet 0-27 ATTACHED ity of 00:00: FOR DETAILED Medical DIRECTIONS Branch LATUDA 20 2021- Yes PLEASE SEE [facility] [place] mg tablet 0-27 ATTACHED ity of 00:00: FOR DETAILED Medical DIRECTIONS Branch LATUDA 20 2021- Yes PLEASE SEE [facility] [place] [facility] tablet 0-27 ATTACHED ity of 00:00: FOR DETAILED Medical DIRECTIONS Branch LATUDA 20 2021- Yes PLEASE SEE [facility] [place] mg tablet 0-27 ATTACHED ity of 00:00: FOR DETAILED Medical DIRECTIONS Branch LATUDA 20 2021- Yes PLEASE SEE [facility] [place] mg tablet 0-27 ATTACHED ity of 00:00: FOR DETAILED Medical DIRECTIONS Branch LATUDA 20 2021- Yes PLEASE SEE [facility] [place] [facility] tablet 0-27 ATTACHED ity of 00:00: FOR DETAILED Medical DIRECTIONS Branch LATUDA 20 2021- Yes PLEASE SEE [facility] [place] mg tablet 0-27 ATTACHED ity of 00:00: FOR DETAILED Medical DIRECTIONS Branch LATUDA 20 2021-1 Yes PLEASE SEE [facility] [place] mg tablet 0-27 ATTACHED ity of 00:00: FOR DETAILED Medical DIRECTIONS Branch LATUDA 20 2021- Yes PLEASE SEE [facility] [place] mg tablet 0-27 ATTACHED ity of 00:00: FOR DETAILED Medical DIRECTIONS Branch LATUDA 20 2021-1 Yes PLEASE SEE [facility] [place] mg tablet 0-27 ATTACHED ity of 00:00: FOR DETAILED Medical DIRECTIONS Branch LATUDA 20 2021- Yes PLEASE SEE [facility] [place] mg tablet 0-27 ATTACHED ity of 00:00: FOR DETAILED Medical DIRECTIONS Branch LATUDA 20 2021-08 Yes PLEASE SEE [facility] mg tablet 0-27 ATTACHED ity of 00:00: FOR [place] DETAILED Medical DIRECTIONS Branch LATUDA 20 2021- Yes PLEASE SEE [facility] mg tablet 0-27 ATTACHED ity of 00:00: FOR [place] DETAILED Medical DIRECTIONS Branch LATUDA 20 2021- Yes PLEASE SEE [facility] mg tablet 0-27 ATTACHED ity of 00:00: FOR [place] DETAILED Medical DIRECTIONS Branch LATUDA 20 2021-08 Yes PLEASE SEE [facility] mg tablet 0-27 ATTACHED ity of 00:00: FOR [place] DETAILED Medical DIRECTIONS Branch methIMAzole 2021-08 Yes [id number] 5mg Take 1 [facility] 5 mg tablet 0-25 tablet by ity of 00:00: mouth in [place] the Medical morning. Branch methIMAzole 2021-08 Yes [id number] 5mg Take 1 [facility] 5 mg tablet 0-25 tablet by ity of 00:00: mouth in [place] the Medical morning. Branch methIMAzole 2021-08 Yes [id number] 5mg Take 1 [facility] 5 mg tablet 0-25 tablet by ity of 00:00: mouth in [place] the morning. Branch methIMAzole 2021-08 Yes [id number] 5mg Take 1 [facility] 5 mg tablet 0-25 tablet by ity of 00:00: mouth in [place] the Medical morning. Branch methIMAzole 2021-08 Yes [id number] 5mg Take 1 [facility] 5 mg tablet 0-25 tablet by ity of 00:00: mouth in [place] the Medical morning. Branch methIMAzole 2021- Yes [id number] 5mg Take 1 [facility] 5 mg tablet 0-25 tablet by ity of 00:00: mouth in [place] the Medical morning. Branch methIMAzole 2021-08 Yes [id number] 5mg Take 1 [facility] 5 mg tablet 0-25 tablet by ity of 00:00: mouth in [place] the Medical morning. Branch methIMAzole 2021-08 Yes [id number] 5mg Take 1 [facility] 5 mg tablet 0-25 tablet by [facility]y of 00:00: mouth in [place] the Medical morning. Branch methIMAzole 2021-08 Yes [id number] 5mg Take 1 [facility] 5 mg tablet 0-25 tablet by [facility] of 00:00: mouth in [place] the morning. Branch methIMAzole 2021-08 Yes [id number] 5mg Take 1 [facility] 5 mg tablet 0-25 tablet by [facility]y of 00:00: mouth in [place] the morning. Branch methIMAzole 2021-08 Yes [id number] 5mg Take 1 [facility] 5 mg tablet 0-25 tablet by [facility]y of 00:00: mouth in [place] the morning. Branch methIMAzole 2021-08 Yes [id number] 5mg Take 1 [facility] 5 mg tablet 0-25 tablet by [facility]y of 00:00: mouth in [place] the morning. Branch methIMAzole 2021-08 Yes [id number] 5mg Take 1 [facility] 5 mg tablet 0-25 tablet by [facility]y of 00:00: mouth in [place] the morning. Branch methIMAzole 2021-08 Yes [id number] 5mg Take 1 [facility] 5 mg tablet 0-25 tablet by [facility]y of 00:00: mouth in [place] the morning. Branch methIMAzole 2021-08 Yes [id number] 5mg Take 1 [facility] 5 mg tablet 0-25 tablet by [facility]y of 00:00: mouth in [place] the morning. Branch methIMAzole 2021-08 Yes [id number] 5mg Take 1 [facility] 5 mg tablet 0-25 tablet by ity of 00:00: mouth in [place] the morning. Branch methIMAzole 2021-08 Yes [id number] 5mg Take 1 [facility] 5 mg tablet 0-25 tablet by [facility]y of 00:00: mouth in [place] the morning. Branch methIMAzole 2021-08 Yes [id number] 5mg Take 1 [facility] 5 mg tablet 0-25 tablet by [facility]y of 00:00: mouth in [place] the Medical morning. Branch methIMAzole 2021-08 Yes [id number] 5mg Take 1 [facility] 5 mg tablet 0-25 tablet by [facility]y of 00:00: mouth in [place] the Medical morning. Branch methIMAzole 2021-08 Yes [id number] 5mg Take 1 [facility] 5 mg tablet 0-25 tablet by ity of 00:00: mouth in [place] the Medical morning. Branch methIMAzole 2021-08 Yes [id number] 5mg Take 1 [facility] 5 mg tablet 0-25 tablet by ity of 00:00: mouth in [place] the morning. Branch methIMAzole 2021-08 Yes [id number] 5mg Take 1 [facility] 5 mg tablet 0-25 tablet by [facility]y of 00:00: mouth in [place] the morning. Branch methIMAzole 2021-08 Yes [id number] 5mg Take 1 [facility] 5 mg tablet 0-25 tablet by [facility]y of 00:00: mouth in [place] the morning. Branch methIMAzole 2021-08 Yes [id number] 5mg Take 1 [facility] 5 mg tablet 0-25 tablet by [facility]y of 00:00: mouth in [place] the morning. Branch methIMAzole 2021-08 Yes [id number] 5mg Take 1 [facility] 5 mg tablet 0-25 tablet by [facility]y of 00:00: mouth in [place] the morning. Branch methIMAzole 2021-08 Yes [id number] 5mg Take 1 [facility] 5 mg tablet 0-25 tablet by [facility]y of 00:00: mouth in [place] the morning. Branch methIMAzole 2021-08 Yes [id number] 5mg Take 1 [facility] 5 mg tablet 0-25 tablet by [facility]y of 00:00: mouth in [place] the morning. Branch methIMAzole 2021-08 Yes [id number] 5mg Take 1 [facility] 5 mg tablet 0-25 tablet by ity of 00:00: mouth in [place] the morning. Branch methIMAzole 2021-08 Yes [id number] 5mg Take 1 [facility] 5 mg tablet 0-25 tablet by ity of 00:00: mouth in [place] the morning. Branch methIMAzole 2021-08 Yes [id number] 5mg Take 1 [facility] 5 mg tablet 0-25 tablet by [facility]y of 00:00: mouth in [place] the morning. Branch methIMAzole 2021-08 Yes [id number] 5mg Take 1 [facility] 5 mg tablet 0-25 tablet by [facility]y of 00:00: mouth in [place] the Medical morning. Branch methIMAzole 2021-08 Yes [id number] 5mg Take 1 [facility] 5 mg tablet 0-25 tablet by [facility]y of 00:00: mouth in [place] the Medical morning. Branch methIMAzole 2021-08 Yes [id number] 5mg Take 1 [facility] 5 mg tablet 0-25 tablet by ity of 00:00: mouth in [place] the morning. Branch methIMAzole 2021-08 Yes [id number] 5mg Take 1 [facility] 5 mg tablet 0-25 tablet by ity of 00:00: mouth in [place] the morning. Branch methIMAzole 2021-08 Yes [id number] 5mg Take 1 [facility] 5 mg tablet 0-25 tablet by ity of 00:00: mouth in [place] the morning. Branch methIMAzole 2021-08 Yes [id number] 5mg Take 1 [facility] 5 mg tablet 0-25 tablet by [facility]y of 00:00: mouth in [place] the Medical morning. Branch methIMAzole 2021-08 Yes [id number] 5mg Take 1 [facility] 5 mg tablet 0-25 tablet by [facility]y of 00:00: mouth in [place] the morning. Branch methIMAzole 2021-08 Yes [id number] 5mg Take 1 [facility] 5 mg tablet 0-25 tablet by [facility]y of 00:00: mouth in [place] the morning. Branch methIMAzole 2021-08 Yes [id number] 5mg Take 1 [facility] 5 mg tablet 0-25 tablet by ity of 00:00: mouth in [place] the morning. Branch methIMAzole 2021-08 Yes [id number] 5mg Take 1 [facility] 5 mg tablet 0-25 tablet by [facility]y of 00:00: mouth in [place] the morning. Branch methIMAzole 2021-08 Yes [id number] 5mg Take 1 [facility] 5 mg tablet 0-25 tablet by ity of 00:00: mouth in [place] the morning. Branch methIMAzole 2021-08 Yes [id number] 5mg Take 1 [facility] 5 mg tablet 0-25 tablet by [facility]y of 00:00: mouth in [place] the Medical morning. Branch methIMAzole 2021-08 Yes [id number] 5mg Take 1 [facility] 5 mg tablet 0-25 tablet by ity of 00:00: mouth in [place] the Medical morning. Branch methIMAzole 2021-08 Yes [id number] 5mg Take 1 [facility] 5 mg tablet 0-25 tablet by [facility]y of 00:00: mouth in [place] the Medical morning. Branch methIMAzole 2021-1 Yes [id number] 5mg Take 1 [facility] 5 mg tablet 0-25 tablet by [facility]y of 00:00: mouth in [place] the Medical morning. Branch methIMAzole 2021-08 Yes [id number] 5mg Take 1 [facility] 5 mg tablet 0-25 tablet by ity of 00:00: mouth in [place] the Medical morning. Branch methIMAzole 2021-08 Yes [id number] 5mg Take 1 [facility] 5 mg tablet 0-25 tablet by ity of 00:00: mouth in [place] the Medical morning. Branch methIMAzole 2021- Yes [id number] 5mg Take 1 [facility] 5 mg tablet 0-25 tablet by [facility]y of 00:00: mouth in [place] the Medical morning. Branch methIMAzole 2021- Yes [id number] 5mg Take 1 [facility] 5 mg tablet 0-25 tablet by ity of 00:00: mouth in [place] the Medical morning. Branch methIMAzole 2021-08 Yes [id number] 5mg Take 1 [facility] 5 mg tablet 0-25 tablet by [facility] of 00:00: mouth in [place] the Medical morning. Branch methIMAzole 2021-08 Yes [id number] 5mg Take 1 [facility] 5 mg tablet 0-25 tablet by [facility] of 00:00: mouth in [place] the Medical morning. Branch methIMAzole 2021-08 Yes [id number] 5mg Take 1 [facility] 5 mg tablet 0-25 tablet by ity of 00:00: mouth in [place] the Medical morning. Branch methIMAzole 2021- Yes [id number] 5mg Take 1 [facility] 5 mg tablet 0-25 tablet by ity of 00:00: mouth in [place] the Medical morning. Branch methIMAzole 2021- Yes [id number] 5mg Take 1 [facility] 5 mg tablet 0-25 tablet by [facility]y of 00:00: mouth in [place] the Medical morning. Branch methIMAzole 2021- Yes [id number] 5mg Take 1 [facility] 5 mg tablet 0-25 tablet by ity of 00:00: mouth in [place] the Medical morning. Branch methIMAzole 2021- Yes [id number] 5mg Take 1 [facility] 5 mg tablet 0-25 tablet by [facility]y of 00:00: mouth in [place] the Medical morning. Branch methIMAzole 2021-08 Yes [id number] 5mg Take 1 [facility] 5 mg tablet 0-25 tablet by ity of 00:00: mouth in [place] 00 the Medical morning. Branch methIMAzole 2021-08 Yes [id number] 5mg Take 1 [facility] 5 mg tablet 0-25 tablet by ity of 00:00: mouth in [place] 00 the Medical morning. Branch methIMAzole 2021-08 Yes [id number] 5mg Take 1 [facility] 5 mg tablet 0-25 tablet by ity of 00:00: mouth in [place] 00 the Medical morning. Branch methIMAzole 2021-08 Yes [id number] 5mg Take 1 [facility] 5 mg tablet 0-25 tablet by ity of 00:00: mouth in [place] 00 the Medical morning. Branch methIMAzole 2021-08 Yes [id number] 5mg Take 1 [facility] 5 mg tablet 0-25 tablet by ity of 00:00: mouth in [place] 00 the Medical morning. Branch methIMAzole 2021-08 Yes [id number] 5mg Take 1 [facility] 5 mg tablet 0-25 tablet by ity of 00:00: mouth in [place] 00 the Medical morning. Branch methIMAzole 2021-08- No [id number] 5mg Take 1 [facility] 5 mg tablet 0-25 02-10 tablet by it y of 00:00: 00:00 mouth in [place] 00 :00 the Medical morning. Branch methIMAzole 2021-08- No [id number] 5mg Take 1 [facility] 5 mg tablet 0-25 02-10 tablet by it y of 00:00: 00:00 mouth in [place] 00 :00 the Medical morning. Branch traMADoL 50 2021-08 Yes Univer s mg tablet 0-18 ity of 00:00: [place] 00 Medical Branch traMADoL 50 2021-08 Yes Univer s mg tablet 0-18 ity of 00:00: [place] 00 Medical Branch traMADoL 50 2021-08 Yes Univer s mg tablet 0-18 ity of 00:00: [place] 00 Medical Branch traMADoL 50 2021-08 Yes Univer s mg tablet 0-18 ity of 00:00: [place] 00 Medical Branch traMADoL 50 2021-08 Yes Univer s mg tablet 0-18 ity of 00:00: [place] 00 Medical Branch traMADoL 50 2021-08 Yes Univer s mg tablet 0-18 ity of 00:00: Medical Branch traMADoL 50 2021-08 Yes Univer s mg tablet 0-18 ity of 00:00: Medical Branch traMADoL 50 2021-08 Yes Univer s mg tablet 0-18 ity of 00:00: Medical Branch traMADoL 50 2021-08 Yes Univer s mg tablet 0-18 ity of 00:00: Medical Branch traMADoL 50 2021-08 Yes Univer s mg tablet 0-18 ity of 00:00: Medical Branch traMADoL 50 2021-08- No Unive rs mg tablet 0-18 11-18 ity of 00:00: 00:00 [place] 00 :00 Medical Branch traMADoL 50 2021-08- No Unive rs mg tablet 0-18 11-18 ity of 00:00: 00:00 [place] 00 :00 Medical Branch hydroxyprog 2021-08- No [id number] 275mg [facility] esterone(PF 005-16 ity of ) (YI 14:30: 13:21 [place] AUTO-INJECT 00 :00 Medical OR) 275 Branch mg/1.1 mL injection 275 mg hydroxyprog 2021-08- No [id number] 275mg 275 mg, [facility] esterone(PF 005-16 Subcutaneo i ty of ) (YI 14:30: 13:21 [place] AUTO-INJECT 00 :00 1 dose, On Me dical OR) 275 Fri Branch mg/1.1 mL 05/16/22 injection at 0930, 275 mg Routine hydroxyprog 2021-08- No [id number] 275mg [facility] esterone(PF 005-09 ity of ) (YI 15:15: 14:19 [place] AUTO-INJECT 00 :00 Medical OR) 275 Branch mg/1.1 mL injection 275 mg hydroxyprog 2021-08- No [id number] 275mg 275 mg, [facility] esterone(PF 005-09 Subcutaneo i ty of ) (YI 15:15: 14:19 [place], [place], [place] AUTO-INJECT 00 :00 1 dose, On Me dical OR) 275 Fri Branch mg/1.1 mL 05/09/22 at injection 1015, 275 mg Routine hydroxyprog 2022-0 2022- No [id number] 275mg [facility] esterone(PF 05-02 ity of ) (YI :45: 21:31 [place] AUTO-INJECT 00 :00 Medical OR) 275 Branch mg/1.1 mL injection 275 mg hydroxyprog 2022-0 2022- No [id number] 275mg 275 mg, [facility] esterone(PF 05-02 Subcutaneo i ty of ) (YI :45: 21:31 [place], [place], [place] AUTO-INJECT 00 :00 1 dose, On Me dical OR) 275 Fri Branch mg/1.1 mL 05/02/22 at injection 1645, 275 mg Routine hydroxyprog 2022-0 2022- No [id number] 275mg [facility] esterone(PF 05-02 ity of ) (YI :45: 21:31 [place] AUTO-INJECT 00 :00 Medical OR) 275 Branch mg/1.1 mL injection 275 mg hydroxyprog 2022-0 2022- No [id number] 275mg 275 mg, [facility] esterone(PF 05-02 Subcutaneo i ty of ) (YI :45: 21:31 [place], [place]CE, [place] AUTO-INJECT 00 :00 1 dose, On Me dical OR) 275 Fri Branch mg/1.1 mL 05/02/22 at injection 1645, 275 mg Routine hydroxyprog 2022-0 2022- No [id number] 275mg [facility] esterone(PF 05-02 ity of ) (YI :45: 21:31 [place] AUTO-INJECT 00 :00 Medical OR) 275 Branch mg/1.1 mL injection 275 mg hydroxyprog 2022-0 2022- No [id number] 275mg 275 mg, [facility] esterone(PF 05-02 Subcutaneo i ty of ) (YI :45: 21:31 [place], [place]CE, [place] AUTO-INJECT 00 :00 1 dose, On Me dical OR) 275 Fri Branch mg/1.1 mL 05/02/22 at injection 1645, 275 mg Routine hydroxyprog 2022-0 2022- No [id number] 275mg [facility] esterone(PF 04-25 ity of ) (YI 15:45: 14:56 [place] AUTO-INJECT 00 :00 Medical OR) 275 Branch mg/1.1 mL injection 275 mg hydroxyprog 0 2021- No [id number] 275mg 275 mg, [facility] esterone(PF 04-25 Subcutaneo i ty of ) (YI 15:45: 14:56 [place], ONCE, [place] AUTO-INJECT 00 :00 1 dose, On Me dical OR) 275 Fri Branch mg/1.1 mL 04/25/22 at injection 1045, 275 mg Routine hydroxyprog 0 2021- No [id number] 275mg [facility] esterone(PF 04-25 ity of ) (YI 15:45: 14:56 [place] AUTO-INJECT 00 :00 Medical OR) 275 Branch mg/1.1 mL injection 275 mg hydroxyprog 2021- No [id number] 275mg 275 mg, [facility] esterone(PF 04-25 Subcutaneo [...] injection 00 Medical Branch YI, PF, 2021-0 2021- No Unive rs 275 mg/1.1 16 11-18 ity of mL 00:00: 00:00 [place] injection 00 :00 Medical Branch YI, PF, 2021-0 2- No Unive rs 275 mg/1.1 -16 11-18 ity of mL 00:00: 00:00 [place] injection 00 :00 Medical Branch cephALEXin 2021-0 Yes [id number] 500mg Take 1 [facility] (KEFLEX) 9-11 capsule by ity o f 500 mg 00:00: mouth in [place] capsule 00 the Medical morning Branch and 1 capsule in the evening. cephALEXin 2022-0 Yes [id number] 500mg Take 1 [facility] (KEFLEX) 9-11 capsule by ity o f 500 mg 00:00: mouth in [place] capsule 00 the Medical morning Branch and 1 capsule in the evening. cephALEXin 2022-0 Yes [id number] 500mg Take 1 [facility] (KEFLEX) 9-11 capsule by ity o f 500 mg 00:00: mouth in [place] capsule 00 the Medical morning Branch and 1 capsule in the evening. cephALEXin 2022-0 Yes [id number] 500mg Take 1 [facility] (KEFLEX) 9-11 capsule by ity o f 500 mg 00:00: mouth in [place] capsule 00 the Medical morning Branch and 1 capsule in the evening. cephALEXin 2022-0 Yes [id number] 500mg Take 1 [facility] (KEFLEX) 9-11 capsule by ity o f 500 mg 00:00: mouth in [place] capsule 00 the Medical morning Branch and 1 capsule in the evening. cephALEXin 2022-0 Yes [id number] 500mg Take 1 [facility] (KEFLEX) 9-11 capsule by ity o f 500 mg 00:00: mouth in [place] capsule 00 the Medical morning Branch and 1 capsule in the evening. cephALEXin 2022-0 Yes [id number] 500mg Take 1 [facility] (KEFLEX) 9-11 capsule by ity o f 500 mg 00:00: mouth in [place] capsule 00 the Medical morning Branch and 1 capsule in the evening. cephALEXin 2022-0 Yes [id number] 500mg Take 1 [facility] (KEFLEX) 9-11 capsule by ity o f 500 mg 00:00: mouth in [place] capsule 00 the Medical morning Branch and 1 capsule in the evening. cephALEXin 2022-0 Yes [id number] 500mg Take 1 [facility] (KEFLEX) 9-11 capsule by ity o f 500 mg 00:00: mouth in [place] capsule 00 the Medical morning Branch and 1 capsule in the evening. cephALEXin 2022-0 Yes [id number] 500mg Take 1 [facility] (KEFLEX) 9-11 capsule by ity o f 500 mg 00:00: mouth in [place] capsule 00 the Medical morning Branch and 1 capsule in the evening. cephALEXin 2022-0 Yes [id number] 500mg Take 1 [facility] (KEFLEX) 9-11 capsule by ity o f 500 mg 00:00: mouth in [place] capsule 00 the Medical morning Branch and 1 capsule in the evening. cephALEXin 2022-0 Yes [id number] 500mg Take 1 [facility] (KEFLEX) 9-11 capsule by ity o f 500 mg 00:00: mouth in [place] capsule 00 the Medical morning Branch and 1 capsule in the evening. cephALEXin 2022-0 Yes [id number] 500mg Take 1 [facility] (KEFLEX) 9-11 capsule by ity o f 500 mg 00:00: mouth in [place] capsule 00 the Medical morning Branch and 1 capsule in the evening. cephALEXin 2022-0 Yes [id number] 500mg Take 1 [facility] (KEFLEX) 9-11 capsule by ity o f 500 mg 00:00: mouth in [place] capsule 00 the Medical morning Branch and 1 capsule in the evening. cephALEXin 2022-0 Yes [id number] 500mg Take 1 [facility] (KEFLEX) 9-11 capsule by ity o f 500 mg 00:00: mouth in [place] capsule 00 the Medical morning Branch and 1 capsule in the evening. cephALEXin 2022-0 Yes [id number] 500mg Take 1 [facility] (KEFLEX) 9-11 capsule by ity o f 500 mg 00:00: mouth in [place] capsule 00 the Medical morning Branch and 1 capsule in the evening. cephALEXin 2022-0 Yes [id number] 500mg Take 1 [facility] (KEFLEX) 9-11 capsule by ity o f 500 mg 00:00: mouth in [place] capsule 00 the Medical morning Branch and 1 capsule in the evening. cephALEXin 2022-0 Yes [id number] 500mg Take 1 [facility] (KEFLEX) 9-11 capsule by ity o f 500 mg 00:00: mouth in [place] capsule 00 the Medical morning Branch and 1 capsule in the evening. cephALEXin 2022-0 Yes [id number] 500mg Take 1 [facility] (KEFLEX) 9-11 capsule by ity o f 500 mg 00:00: mouth in [place] capsule 00 the Medical morning Branch and 1 capsule in the evening. cephALEXin 2022-0 Yes [id number] 500mg Take 1 [facility] (KEFLEX) 9-11 capsule by ity o f 500 mg 00:00: mouth in [place] capsule 00 the Medical morning Branch and 1 capsule in the evening. cephALEXin 2022-0 Yes [id number] 500mg Take 1 [facility] (KEFLEX) 9-11 capsule by ity o f 500 mg 00:00: mouth in [place] capsule 00 the Medical morning Branch and 1 capsule in the evening. cephALEXin 2022-0 Yes [id number] 500mg Take 1 [facility] (KEFLEX) 9-11 capsule by ity o f 500 mg 00:00: mouth in [place] capsule 00 the Medical morning Branch and 1 capsule in the evening. cephALEXin 2022-0 Yes [id number] 500mg Take 1 [facility] (KEFLEX) 9-11 capsule by ity o f 500 mg 00:00: mouth in [place] capsule 00 the Medical morning Branch and 1 capsule in the evening. cephALEXin 2022-0 Yes [id number] 500mg Take 1 [facility] (KEFLEX) 9-11 capsule by ity o f 500 mg 00:00: mouth in [place] capsule 00 the Medical morning Branch and 1 capsule in the evening. cephALEXin 2022-0 Yes [id number] 500mg Take 1 [facility] (KEFLEX) 9-11 capsule by ity o f 500 mg 00:00: mouth in [place] capsule 00 the Medical morning Branch and 1 capsule in the evening. cephALEXin 2022-0 Yes [id number] 500mg Take 1 [facility] (KEFLEX) 9-11 capsule by ity o f 500 mg 00:00: mouth in [place] capsule 00 the Medical morning Branch and 1 capsule in the evening. cephALEXin 2022-0 Yes [id number] 500mg Take 1 [facility] (KEFLEX) 9-11 capsule by ity o f 500 mg 00:00: mouth in [place] capsule 00 the Medical morning Branch and 1 capsule in the evening. cephALEXin 2022-0 Yes [id number] 500mg Take 1 [facility] (KEFLEX) 9-11 capsule by ity o f 500 mg 00:00: mouth in [place] capsule 00 the Medical morning Branch and 1 capsule in the evening. cephALEXin 2022-0 Yes [id number] 500mg Take 1 [facility] (KEFLEX) 9-11 capsule by ity o f 500 mg 00:00: mouth in [place] capsule 00 the Medical morning Branch and 1 capsule in the evening. cephALEXin 2022-0 2022- No [id number] 500mg Take 1 [facility] (KEFLEX) 9-11 10-21 capsule by ity of 500 mg 00:00: 00:00 mouth in [place] capsule 00 :00 the Medical morning Branch and 1 capsule in the evening. cephALEXin 2021- No [id number] 500mg Take 1 [facility] (KEFLEX) 9-11 10-21 capsule by ity of 500 mg 00:00: 00:00 mouth in [place] capsule 00 :00 the Medical morning Branch and 1 capsule in the evening. cephALEXin 2021- No [id number] 500mg Take 1 [facility] (KEFLEX) 9-11 10-21 capsule by ity of 500 mg 00:00: 00:00 mouth in [place] capsule 00 :00 the Medical morning Branch and 1 capsule in the evening. cephALEXin 2021- No [id number] 500mg Take 1 [facility] (KEFLEX) 9-11 10- capsule by ity of 500 mg 00:00: [...] of Therapy: 7 days metroNIDAZO 2021-0 Yes [id number] 500mg Take 1 [facility] LE (FLAGYL) 04-11 tablet by ity of 500 mg 00:00: mouth [place] tablet 00 every 12 Medical (twelve) Branch hours. metroNIDAZO 2021-0 Yes [id number] 500mg Take 1 [facility] LE (FLAGYL) - tablet by ity of 500 mg 00:00: mouth [place] tablet 00 every 12 Medical (twelve) Branch hours. metroNIDAZO 2021-0 Yes [id number] 500mg Take 1 [facility] LE (FLAGYL) - tablet by ity of 500 mg 00:00: mouth [place] tablet 00 every 12 Medical (twelve) Branch hours. metroNIDAZO 2021-0 Yes [id number] 500mg Take 1 [facility] LE (FLAGYL) 04-11 tablet by ity of 500 mg 00:00: mouth [place] tablet 00 every 12 Medical (twelve) Branch hours. metroNIDAZO 2022-0 Yes [id number] 500mg Take 1 [facility] LE (FLAGYL) 9-09 tablet by ity of 500 mg 00:00: mouth [place] tablet 00 every 12 Medical (twelve) Branch hours. metroNIDAZO 2022-0 Yes [id number] 500mg Take 1 [facility] LE (FLAGYL) 9-09 tablet by ity of 500 mg 00:00: mouth [place] tablet 00 every 12 Medical (twelve) Branch hours. metroNIDAZO 2022-0 Yes [id number] 500mg Take 1 [facility] LE (FLAGYL) 9-09 tablet by ity of 500 mg 00:00: mouth [place] tablet 00 every 12 Medical (twelve) Branch hours. metroNIDAZO 2-0 Yes [id number] 500mg Take 1 [facility] LE (FLAGYL) 9-09 tablet by ity of 500 mg 00:00: mouth [place] tablet 00 every 12 Medical (twelve) Branch hours. metroNIDAZO 2021-0 Yes [id number] 500mg Take 1 [facility] LE (FLAGYL) 9-09 tablet by ity of 500 mg 00:00: mouth [place] tablet 00 every 12 Medical (twelve) Branch hours. metroNIDAZO 2021-0 Yes [id number] 500mg Take 1 [facility] LE (FLAGYL) 9-09 tablet by ity of 500 mg 00:00: mouth [place] tablet 00 every 12 Medical (twelve) Branch hours. metroNIDAZO 2021-0 Yes [id number] 500mg Take 1 [facility] LE (FLAGYL) 9-09 tablet by ity of 500 mg 00:00: mouth [place] tablet 00 every 12 Medical (twelve) Branch hours. metroNIDAZO 2-0 Yes [id number] 500mg Take 1 [facility] LE (FLAGYL) 9-09 tablet by ity of 500 mg 00:00: mouth [place] tablet 00 every 12 Medical (twelve) Branch hours. metroNIDAZO 2022-0 Yes [id number] 500mg Take 1 [facility] LE (FLAGYL) 9-09 tablet by ity of 500 mg 00:00: mouth [place] tablet 00 every 12 Medical (twelve) Branch hours. metroNIDAZO 2022-0 Yes [id number] 500mg Take 1 [facility] LE (FLAGYL) 9-09 tablet by ity of 500 mg 00:00: mouth [place] tablet 00 every 12 Medical (twelve) Branch hours. metroNIDAZO 2-0 Yes [id number] 500mg Take 1 [facility] LE (FLAGYL) 9-09 tablet by ity of 500 mg 00:00: mouth [place] tablet 00 every 12 Medical (twelve) Branch hours. metroNIDAZO 2-0 Yes [id number] 500mg Take 1 [facility] LE (FLAGYL) 9-09 tablet by ity of 500 mg 00:00: mouth [place] tablet 00 every 12 Medical (twelve) Branch hours. metroNIDAZO 2021-0 Yes [id number] 500mg Take 1 [facility] LE (FLAGYL) 9-09 tablet by ity of 500 mg 00:00: mouth [place] tablet 00 every 12 Medical (twelve) Branch hours. metroNIDAZO 2021-0 Yes [id number] 500mg Take 1 [facility] LE (FLAGYL) 9-09 tablet by ity of 500 mg 00:00: mouth [place] tablet 00 every 12 Medical (twelve) Branch hours. metroNIDAZO 2021-0 Yes [id number] 500mg Take 1 [facility] LE (FLAGYL) 9-09 tablet by ity of 500 mg 00:00: mouth [place] tablet 00 every 12 Medical (twelve) Branch hours. metroNIDAZO 2021-0 Yes [id number] 500mg Take 1 [facility] LE (FLAGYL) 9-09 tablet by ity of 500 mg 00:00: mouth [place] tablet 00 every 12 Medical (twelve) Branch hours. metroNIDAZO 2021-0 Yes [id number] 500mg Take 1 [facility] LE (FLAGYL) 9-09 tablet by ity of 500 mg 00:00: mouth [place] tablet 00 every 12 Medical (twelve) Branch hours. metroNIDAZO 2021-0 Yes [id number] 500mg Take 1 [facility] LE (FLAGYL) 9-09 tablet by ity of 500 mg 00:00: mouth [place] tablet 00 every 12 Medical (twelve) Branch hours. metroNIDAZO 2021-0 Yes [id number] 500mg Take 1 [facility] LE (FLAGYL) 9-09 tablet by ity of 500 mg 00:00: mouth [place] tablet 00 every 12 Medical (twelve) Branch hours. metroNIDAZO 2-0 Yes [id number] 500mg Take 1 [facility] LE (FLAGYL) 9-09 tablet by ity of 500 mg 00:00: mouth [place] tablet 00 every 12 Medical (twelve) Branch hours. metroNIDAZO 2-0 Yes [id number] 500mg Take 1 [facility] LE (FLAGYL) 9-09 tablet by ity of 500 mg 00:00: mouth [place] tablet 00 every 12 Medical (twelve) Branch hours. metroNIDAZO 2022-0 Yes [id number] 500mg Take 1 [facility] LE (FLAGYL) 9-09 tablet by ity of 500 mg 00:00: mouth [place] tablet 00 every 12 Medical (twelve) Branch hours. metroNIDAZO 2022-0 Yes [id number] 500mg Take 1 [facility] LE (FLAGYL) 9-09 tablet by ity of 500 mg 00:00: mouth [place] tablet 00 every 12 Medical (twelve) Branch hours. metroNIDAZO 2021-0 Yes [id number] 500mg Take 1 [facility] LE (FLAGYL) 9-09 tablet by ity of 500 mg 00:00: mouth [place] tablet 00 every 12 Medical (twelve) Branch hours. metroNIDAZO 2021-0 Yes [id number] 500mg Take 1 [facility] LE (FLAGYL) 9-09 tablet by ity of 500 mg 00:00: mouth [place] tablet 00 every 12 Medical (twelve) Branch hours. metroNIDAZO 2021-0 Yes [id number] 500mg Take 1 [facility] LE (FLAGYL) 9-09 tablet by ity of 500 mg 00:00: mouth [place] tablet 00 every 12 Medical (twelve) Branch hours. metroNIDAZO 2021-0 Yes [id number] 500mg Take 1 [facility] LE (FLAGYL) 9-09 tablet by ity of 500 mg 00:00: mouth [place] tablet 00 every 12 Medical (twelve) Branch hours. metroNIDAZO 2-0 Yes [id number] 500mg Take 1 [facility] LE (FLAGYL) 9-09 tablet by ity of 500 mg 00:00: mouth [place] tablet 00 every 12 Medical (twelve) Branch hours. metroNIDAZO 2-0 Yes [id number] 500mg Take 1 [facility] LE (FLAGYL) 9-09 tablet by ity of 500 mg 00:00: mouth [place] tablet 00 every 12 Medical (twelve) Branch hours. metroNIDAZO 2022-0 Yes [id number] 500mg Take 1 [facility] LE (FLAGYL) 9-09 tablet by ity of 500 mg 00:00: mouth [place] tablet 00 every 12 Medical (twelve) Branch hours. metroNIDAZO 2-0 Yes [id number] 500mg Take 1 [facility] LE (FLAGYL) 9-09 tablet by ity of 500 mg 00:00: mouth [place] tablet 00 every 12 Medical (twelve) Branch hours. metroNIDAZO 2022-0 Yes [id number] 500mg Take 1 [facility] LE (FLAGYL) 9-09 tablet by ity of 500 mg 00:00: mouth [place] tablet 00 every 12 Medical (twelve) Branch hours. metroNIDAZO 2021-0 Yes [id number] 500mg Take 1 [facility] LE (FLAGYL) 9-09 tablet by ity of 500 mg 00:00: mouth [place] tablet 00 every 12 Medical (twelve) Branch hours. metroNIDAZO 2021-0 Yes [id number] 500mg Take 1 [facility] (FLAGYL) 9-09 tablet by [facility] 500 mg 00:00: mouth [place] tablet 00 every 12 Medical (twelve) Branch hours. metroNIDAZO 2021-0 Yes [id number] 500mg Take 1 [facility] (FLAGYL) 9-09 tablet by [facility] 500 mg 00:00: mouth [place] tablet 00 every 12 Medical (twelve) Branch hours. metroNIDAZO 2021-0 Yes [id number] 500mg Take 1 [facility] (FLAGYL) 9-09 tablet by [facility] of 500 mg 00:00: mouth [place] tablet 00 every 12 Medical (twelve) Branch hours. metroNIDAZO 2021-0 Yes [id number] 500mg Take 1 [facility] (FLAGYL) 9-09 tablet by [facility] of 500 mg 00:00: mouth [place] tablet 00 every 12 Medical (twelve) Branch hours. metroNIDAZO 2021-0 Yes [id number] 500mg Take 1 [facility] (FLAGYL) 9-09 tablet by [facility] 500 mg 00:00: mouth [place] tablet 00 every 12 Medical (twelve) Branch hours. metroNIDAZO 2021-0 2022- No [id number] 500mg Take 1 [facility] (FLAGYL) 9-09 11-18 tablet by it y of 500 mg 00:00: 00:00 mouth [place] tablet 00 :00 every 12 Medical (twelve) Branch hours. metroNIDAZO 2022-0 2022- No [id number] 500mg Take 1 [facility] (FLAGYL) 9-09 11-18 tablet by it y of 500 mg 00:00: 00:00 mouth [place] tablet 00 :00 every 12 Medical (twelve) Branch hours. metoclopram 2021-0 Yes [id number] 10mg Take 1 [facility] HCl 10 8-31 tablet by [facility] of mg tablet 00:00: mouth [place] 00 every 6 Medical (six) Branch hours as needed for Nausea and Vomiting (N/V) or Gastroesop hageal reflux. famotidine 2022-0 Yes [id number] 20mg Take 1 [facility] 20 mg 8-31 tablet by [facility] tablet 00:00: mouth in [place] 00 the Medical morning Branch and 1 tablet in the evening. metoclopram 2022-0 Yes [id number] 10mg Take 1 [facility] HCl 10 8-31 tablet by [facility] of mg tablet 00:00: mouth [place] 00 every 6 Medical (six) Branch hours as needed for Nausea and Vomiting (N/V) or Gastroesop hageal reflux. famotidine 2022-0 Yes [id number] 20mg Take 1 [facility] 20 mg 8-31 tablet by [facility] tablet 00:00: mouth in [place] 00 the Medical morning Branch and 1 tablet in the evening. metoclopram 2022-0 Yes [id number] 10mg Take 1 [facility] HCl 10 8-31 tablet by [facility] of mg tablet 00:00: mouth [place] 00 every 6 Medical (six) Branch hours as needed for Nausea and Vomiting (N/V) or Gastroesop hageal reflux. famotidine 2022-0 Yes [id number] 20mg Take 1 [facility] 20 mg 8-31 tablet by [facility] tablet 00:00: mouth in [place] 00 the Medical morning Branch and 1 tablet in the evening. metoclopram 2022-0 Yes [id number] 10mg Take 1 [facility] HCl 10 8-31 tablet by [facility] mg tablet 00:00: mouth [place] 00 every 6 Medical (six) Branch hours as needed for Nausea and Vomiting (N/V) or Gastroesop hageal reflux. famotidine 2022-0 Yes [id number] 20mg Take 1 [facility] 20 mg 8-31 tablet by [facility] tablet 00:00: mouth in [place] 00 the Medical morning Branch and 1 tablet in the evening. metoclopram 2022-0 Yes [id number] 10mg Take 1 [facility] HCl 10 8-31 tablet by [facility] of mg tablet 00:00: mouth [place] 00 every 6 Medical (six) Branch hours as needed for Nausea and Vomiting (N/V) or Gastroesop hageal reflux. famotidine 2022-0 Yes [id number] 20mg Take 1 [facility] 20 mg 8-31 tablet by [facility] tablet 00:00: mouth in [place] 00 the Medical morning Branch and 1 tablet in the evening. metoclopram 2022-0 Yes [id number] 10mg Take 1 [facility] HCl 10 8-31 tablet by [facility] of mg tablet 00:00: mouth [place] 00 every 6 Medical (six) Branch hours as needed for Nausea and Vomiting (N/V) or Gastroesop hageal reflux. famotidine 2022-0 Yes [id number] 20mg Take 1 [facility] 20 mg 8-31 tablet by [facility] of tablet 00:00: mouth in [place] 00 the Medical morning Branch and 1 tablet in the evening. metoclopram 2022-0 Yes [id number] 10mg Take 1 [facility] HCl 10 8-31 tablet by [facility] of mg tablet 00:00: mouth [place] 00 every 6 Medical (six) Branch hours as needed for Nausea and Vomiting (N/V) or Gastroesop hageal reflux. famotidine 2022-0 Yes [id number] 20mg Take 1 [facility] 20 mg 8-31 tablet by [facility] of tablet 00:00: mouth in [place] 00 the Medical morning Branch and 1 tablet in the evening. metoclopram 2022-0 Yes [id number] 10mg Take 1 [facility] HCl 10 8-31 tablet by [facility] of mg tablet 00:00: mouth [place] 00 every 6 Medical (six) Branch hours as needed for Nausea and Vomiting (N/V) or Gastroesop hageal reflux. famotidine 2022-0 Yes [id number] 20mg Take 1 [facility] 20 mg 8-31 tablet by [facility] of tablet 00:00: mouth in [place] 00 the Medical morning Branch and 1 tablet in the evening. metoclopram 2022-0 Yes [id number] 10mg Take 1 [facility] HCl 10 8-31 tablet by [facility] of mg tablet 00:00: mouth [place] 00 every 6 Medical (six) Branch hours as needed for Nausea and Vomiting (N/V) or Gastroesop hageal reflux. famotidine 2022-0 Yes [id number] 20mg Take 1 [facility] 20 mg 8-31 tablet by [facility] of tablet 00:00: mouth in [place] 00 the Medical morning Branch and 1 tablet in the evening. metoclopram 2022-0 Yes [id number] 10mg Take 1 [facility] HCl 10 8-31 tablet by [facility] of mg tablet 00:00: mouth [place] 00 every 6 Medical (six) Branch hours as needed for Nausea and Vomiting (N/V) or Gastroesop hageal reflux. famotidine 2022-0 Yes [id number] 20mg Take 1 [facility] 20 mg 8-31 tablet by [facility] of tablet 00:00: mouth in [place] 00 the Medical morning Branch and 1 tablet in the evening. metoclopram 2022-0 Yes [id number] 10mg Take 1 [facility] HCl 10 8-31 tablet by [facility] of mg tablet 00:00: mouth [place] 00 every 6 Medical (six) Branch hours as needed for Nausea and Vomiting (N/V) or Gastroesop hageal reflux. famotidine 2022-0 Yes [id number] 20mg Take 1 [facility] 20 mg 8-31 tablet by [facility] of tablet 00:00: mouth in [place] 00 the Medical morning Branch and 1 tablet in the evening. metoclopram 2022-0 Yes [id number] 10mg Take 1 [facility] HCl 10 8-31 tablet by [facility] of mg tablet 00:00: mouth [place] [address] every 6 Medical (six) Branch hours as needed for Nausea and Vomiting (N/V) or Gastroesop hageal reflux. famotidine 2022-0 Yes [id number] 20mg Take 1 [facility] 20 mg 8-31 tablet by [facility] of tablet 00:00: mouth in [place] 00 the Medical morning Branch and 1 tablet in the evening. metoclopram 2022-0 Yes [id number] 10mg Take 1 [facility] HCl 10 8-31 tablet by [facility] of mg tablet 00:00: mouth [place] 00 every 6 Medical (six) Branch hours as needed for Nausea and Vomiting (N/V) or Gastroesop hageal reflux. famotidine 2022-0 Yes [id number] 20mg Take 1 [facility] 20 mg 8-31 tablet by [facility] of tablet 00:00: mouth in [place] 00 the Medical morning Branch and 1 tablet in the evening. metoclopram 2022-0 Yes [id number] 10mg Take 1 [facility] HCl 10 8-31 tablet by [facility] of mg tablet 00:00: mouth [place] 00 every 6 Medical (six) Branch hours as needed for Nausea and Vomiting (N/V) or Gastroesop hageal reflux. famotidine 2022-0 Yes [id number] 20mg Take 1 [facility] 20 mg 8-31 tablet by [facility] of tablet 00:00: mouth in [place] 00 the Medical morning Branch and 1 tablet in the evening. metoclopram 2022-0 Yes [id number] 10mg Take 1 [facility] HCl 10 8-31 tablet by [facility] of mg tablet 00:00: mouth [place] 00 every 6 Medical (six) Branch hours as needed for Nausea and Vomiting (N/V) or Gastroesop hageal reflux. famotidine 2022-0 Yes [id number] 20mg Take 1 [facility] 20 mg 8-31 tablet by [facility] of tablet 00:00: mouth in [place] 00 the Medical morning Branch and 1 tablet in the evening. metoclopram 2022-0 Yes [id number] 10mg Take 1 [facility] HCl 10 8-31 tablet by [facility] of mg tablet 00:00: mouth [place] [address] every 6 Medical (six) Branch hours as needed for Nausea and Vomiting (N/V) or Gastroesop hageal reflux. famotidine 2022-0 Yes [id number] 20mg Take 1 [facility] 20 mg 8-31 tablet by [facility] of tablet 00:00: mouth in [place] 00 the Medical morning Branch and 1 tablet in the evening. metoclopram 2022-0 Yes [id number] 10mg Take 1 [facility] HCl 10 8-31 tablet by [facility] of mg tablet 00:00: mouth [place] 00 every 6 Medical (six) Branch hours as needed for Nausea and Vomiting (N/V) or Gastroesop hageal reflux. famotidine 2022-0 Yes [id number] 20mg Take 1 [facility] 20 mg 8-31 tablet by [facility] of tablet 00:00: mouth in [place] 00 the Medical morning Branch and 1 tablet in the evening. metoclopram 2022-0 Yes [id number] 10mg Take 1 [facility] HCl 10 8-31 tablet by [facility] of mg tablet 00:00: mouth [place] 00 every 6 Medical (six) Branch hours as needed for Nausea and Vomiting (N/V) or Gastroesop hageal reflux. famotidine 2022-0 Yes [id number] 20mg Take 1 [facility] 20 mg 8-31 tablet by [facility] of tablet 00:00: mouth in [place] 00 the Medical morning Branch and 1 tablet in the evening. metoclopram 2022-0 Yes [id number] 10mg Take 1 [facility] HCl 10 8-31 tablet by [facility] of mg tablet 00:00: mouth [place] 00 every 6 Medical (six) Branch hours as needed for Nausea and Vomiting (N/V) or Gastroesop hageal reflux. famotidine 2022-0 Yes [id number] 20mg Take 1 [facility] 20 mg 8-31 tablet by [facility] of tablet 00:00: mouth in [place] 00 the Medical morning Branch and 1 tablet in the evening. metoclopram 2022-0 Yes [id number] 10mg Take 1 [facility] HCl 10 8-31 tablet by [facility] of mg tablet 00:00: mouth [place] 00 every 6 Medical (six) Branch hours as needed for Nausea and Vomiting (N/V) or Gastroesop hageal reflux. famotidine 2022-0 Yes [id number] 20mg Take 1 [facility] 20 mg 8-31 tablet by [facility] of tablet 00:00: mouth in [place] 00 the Medical morning Branch and 1 tablet in the evening. metoclopram 2022-0 Yes [id number] 10mg Take 1 [facility] HCl 10 8-31 tablet by [facility] of mg tablet 00:00: mouth [place] [address] every 6 Medical (six) Branch hours as needed for Nausea and Vomiting (N/V) or Gastroesop hageal reflux. famotidine 2022-0 Yes [id number] 20mg Take 1 [facility] 20 mg 8-31 tablet by [facility] of tablet 00:00: mouth in [place] 00 the Medical morning Branch and 1 tablet in the evening. metoclopram 2022-0 Yes [id number] 10mg Take 1 [facility] HCl 10 8-31 tablet by [facility] of mg tablet 00:00: mouth [place] 00 every 6 Medical (six) Branch hours as needed for Nausea and Vomiting (N/V) or Gastroesop hageal reflux. famotidine 2022-0 Yes [id number] 20mg Take 1 [facility] 20 mg 8-31 tablet by [facility] of tablet 00:00: mouth in [place] 00 the Medical morning Branch and 1 tablet in the evening. metoclopram 2022-0 Yes [id number] 10mg Take 1 [facility] HCl 10 8-31 tablet by [facility] of mg tablet 00:00: mouth [place] 00 every 6 Medical (six) Branch hours as needed for Nausea and Vomiting (N/V) or Gastroesop hageal reflux. famotidine 2022-0 Yes [id number] 20mg Take 1 [facility] 20 mg 8-31 tablet by [facility] of tablet 00:00: mouth in [place] 00 the Medical morning Branch and 1 tablet in the evening. metoclopram 2022-0 Yes [id number] 10mg Take 1 [facility] HCl 10 8-31 tablet by [facility] of mg tablet 00:00: mouth [place] 00 every 6 Medical (six) Branch hours as needed for Nausea and Vomiting (N/V) or Gastroesop hageal reflux. famotidine 2022-0 Yes [id number] 20mg Take 1 [facility] 20 mg 8-31 tablet by [facility] of tablet 00:00: mouth in [place] 00 the Medical morning Branch and 1 tablet in the evening. metoclopram 2022-0 Yes [id number] 10mg Take 1 [facility] HCl 10 8-31 tablet by [facility] of mg tablet 00:00: mouth [place] 00 every 6 Medical (six) Branch hours as needed for Nausea and Vomiting (N/V) or Gastroesop hageal reflux. famotidine 2022-0 Yes [id number] 20mg Take 1 [facility] 20 mg 8-31 tablet by [facility] of tablet 00:00: mouth in [place] 00 the Medical morning Branch and 1 tablet in the evening. metoclopram 2022-0 Yes [id number] 10mg Take 1 [facility] HCl 10 8-31 tablet by [facility] of mg tablet 00:00: mouth [place] 00 every 6 Medical (six) Branch hours as needed for Nausea and Vomiting (N/V) or Gastroesop hageal reflux. famotidine 2022-0 Yes [id number] 20mg Take 1 [facility] 20 mg 8-31 tablet by [facility] of tablet 00:00: mouth in [place] 00 the Medical morning Branch and 1 tablet in the evening. metoclopram 2022-0 Yes [id number] 10mg Take 1 [facility] HCl 10 8-31 tablet by [facility] of mg tablet 00:00: mouth [place] 00 every 6 Medical (six) Branch hours as needed for Nausea and Vomiting (N/V) or Gastroesop hageal reflux. famotidine 2022-0 Yes [id number] 20mg Take 1 [facility] 20 mg 8-31 tablet by [facility] of tablet 00:00: mouth in [place] 00 the Medical morning Branch and 1 tablet in the evening. metoclopram 2022-0 Yes [id number] 10mg Take 1 [facility] HCl 10 8-31 tablet by [facility] of mg tablet 00:00: mouth [place] 00 every 6 Medical (six) Branch hours as needed for Nausea and Vomiting (N/V) or Gastroesop hageal reflux. famotidine 2022-0 Yes [id number] 20mg Take 1 [facility] 20 mg 8-31 tablet by [facility] of tablet 00:00: mouth in [place] 00 the Medical morning Branch and 1 tablet in the evening. metoclopram 2022-0 Yes [id number] 10mg Take 1 [facility] HCl 10 8-31 tablet by [facility] of mg tablet 00:00: mouth [place] 00 every 6 Medical (six) Branch hours as needed for Nausea and Vomiting (N/V) or Gastroesop hageal reflux. famotidine 2022-0 Yes [id number] 20mg Take 1 [facility] 20 mg 8-31 tablet by [facility] of tablet 00:00: mouth in [place] 00 the Medical morning Branch and 1 tablet in the evening. metoclopram 2022-0 Yes [id number] 10mg Take 1 [facility] HCl 10 8-31 tablet by [facility] of mg tablet 00:00: mouth [place] 00 every 6 Medical (six) Branch hours as needed for Nausea and Vomiting (N/V) or Gastroesop hageal reflux. famotidine 2022-0 Yes [id number] 20mg Take 1 [facility] 20 mg 8-31 tablet by [facility] of tablet 00:00: mouth in [place] 00 the Medical morning Branch and 1 tablet in the evening. metoclopram 2022-0 Yes [id number] 10mg Take 1 [facility] HCl 10 8-31 tablet by [facility] of mg tablet 00:00: mouth [place] 00 every 6 Medical (six) Branch hours as needed for Nausea and Vomiting (N/V) or Gastroesop hageal reflux. famotidine 2022-0 Yes [id number] 20mg Take 1 [facility] 20 mg 8-31 tablet by [facility] of tablet 00:00: mouth in [place] 00 the Medical morning Branch and 1 tablet in the evening. metoclopram 2022-0 Yes [id number] 10mg Take 1 [facility] HCl 10 8-31 tablet by [facility] of mg tablet 00:00: mouth [place] 00 every 6 Medical (six) Branch hours as needed for Nausea and Vomiting (N/V) or Gastroesop hageal reflux. famotidine 2022-0 Yes [id number] 20mg Take 1 [facility] 20 mg 8-31 tablet by [facility] of tablet 00:00: mouth in [place] 00 the Medical morning Branch and 1 tablet in the evening. metoclopram 2022-0 Yes [id number] 10mg Take 1 [facility] HCl 10 8-31 tablet by [facility] of mg tablet 00:00: mouth [place] 00 every 6 Medical (six) Branch hours as needed for Nausea and Vomiting (N/V) or Gastroesop hageal reflux. famotidine 2022-0 Yes [id number] 20mg Take 1 [facility] 20 mg 8-31 tablet by [facility] of tablet 00:00: mouth in [place] 00 the Medical morning Branch and 1 tablet in the evening. metoclopram 2022-0 Yes [id number] 10mg Take 1 [facility] HCl 10 8-31 tablet by [facility] of mg tablet 00:00: mouth [place] 00 every 6 Medical (six) Branch hours as needed for Nausea and Vomiting (N/V) or Gastroesop hageal reflux. famotidine 2022-0 Yes [id number] 20mg Take 1 [facility] 20 mg 8-31 tablet by [facility] of tablet 00:00: mouth in [place] 00 the Medical morning Branch and 1 tablet in the evening. metoclopram 2022-0 Yes [id number] 10mg Take 1 [facility] HCl 10 8-31 tablet by [facility] of mg tablet 00:00: mouth [place] 00 every 6 Medical (six) Branch hours as needed for Nausea and Vomiting (N/V) or Gastroesop hageal reflux. famotidine 2022-0 Yes [id number] 20mg Take 1 [facility] 20 mg 8-31 tablet by [facility] of tablet 00:00: mouth in [place] 00 the Medical morning Branch and 1 tablet in the evening. metoclopram 2022-0 Yes [id number] 10mg Take 1 [facility] HCl 10 8-31 tablet by [facility] of mg tablet 00:00: mouth [place] 00 every 6 Medical (six) Branch hours as needed for Nausea and Vomiting (N/V) or Gastroesop hageal reflux. famotidine 2022-0 Yes [id number] 20mg Take 1 [facility] 20 mg 8-31 tablet by [facility] of tablet 00:00: mouth in [place] 00 the Medical morning Branch and 1 tablet in the evening. metoclopram 2022-0 Yes [id number] 10mg Take 1 [facility] HCl 10 8-31 tablet by [facility] of mg tablet 00:00: mouth [place] 00 every 6 Medical (six) Branch hours as needed for Nausea and Vomiting (N/V) or Gastroesop hageal reflux. famotidine 2022-0 Yes [id number] 20mg Take 1 [facility] 20 mg 8-31 tablet by [facility] of tablet 00:00: mouth in [place] 00 the Medical morning Branch and 1 tablet in the evening. metoclopram 2022-0 Yes [id number] 10mg Take 1 [facility] HCl 10 8-31 tablet by [facility] of mg tablet 00:00: mouth [place] [address] every 6 Medical (six) Branch hours as needed for Nausea and Vomiting (N/V) or Gastroesop hageal reflux. famotidine 2022-0 Yes [id number] 20mg Take 1 [facility] 20 mg 8-31 tablet by [facility] of tablet 00:00: mouth in [place] 00 the Medical morning Branch and 1 tablet in the evening. metoclopram 2022-0 Yes [id number] 10mg Take 1 [facility] HCl 10 8-31 tablet by [facility] of mg tablet 00:00: mouth [place] [address] every 6 Medical (six) Branch hours as needed for Nausea and Vomiting (N/V) or Gastroesop hageal reflux. famotidine 2022-0 Yes [id number] 20mg Take 1 [facility] 20 mg 8-31 tablet by [facility] of tablet 00:00: mouth in [place] 00 the Medical morning Branch and 1 tablet in the evening. metoclopram 2022-0 Yes [id number] 10mg Take 1 [facility] HCl 10 8-31 tablet by [facility] of mg tablet 00:00: mouth [place] 00 every 6 Medical (six) Branch hours as needed for Nausea and Vomiting (N/V) or Gastroesop hageal reflux. famotidine 2022-0 Yes [id number] 20mg Take 1 [facility] 20 mg 8-31 tablet by [facility] of tablet 00:00: mouth in [place] 00 the Medical morning Branch and 1 tablet in the evening. metoclopram 2022-0 Yes [id number] 10mg Take 1 [facility] HCl 10 8-31 tablet by [facility] of mg tablet 00:00: mouth [place] 00 every 6 Medical (six) Branch hours as needed for Nausea and Vomiting (N/V) or Gastroesop hageal reflux. famotidine 2022-0 Yes [id number] 20mg Take 1 [facility] 20 mg 8-31 tablet by [facility] of tablet 00:00: mouth in [place] 00 the Medical morning Branch and 1 tablet in the evening. metoclopram 2022-0 Yes [id number] 10mg Take 1 [facility] HCl 10 8-31 tablet by [facility] of mg tablet 00:00: mouth [place] 00 every 6 Medical (six) Branch hours as needed for Nausea and Vomiting (N/V) or Gastroesop hageal reflux. famotidine 2022-0 Yes [id number] 20mg Take 1 [facility] 20 mg 8-31 tablet by [facility] of tablet 00:00: mouth in [place] 00 the Medical morning Branch and 1 tablet in the evening. metoclopram 2022-0 Yes [id number] 10mg Take 1 [facility] HCl 10 8-31 tablet by [facility] of mg tablet 00:00: mouth [place] [address] every 6 Medical (six) Branch hours as needed for Nausea and Vomiting (N/V) or Gastroesop hageal reflux. famotidine 2022-0 Yes [id number] 20mg Take 1 [facility] 20 mg 8-31 tablet by [facility] of tablet 00:00: mouth in [place] 00 the Medical morning Branch and 1 tablet in the evening. metoclopram 2022-0 Yes [id number] 10mg Take 1 [facility] HCl 10 8-31 tablet by [facility] of mg tablet 00:00: mouth [place] 00 every 6 Medical (six) Branch hours as needed for Nausea and Vomiting (N/V) or Gastroesop hageal reflux. famotidine 2022-0 Yes [id number] 20mg Take 1 [facility] 20 mg 8-31 tablet by [facility] of tablet 00:00: mouth in [place] 00 the Medical morning Branch and 1 tablet in the evening. metoclopram 2022-0 Yes [id number] 10mg Take 1 [facility] HCl 10 8-31 tablet by [facility] of mg tablet 00:00: mouth [place] 00 every 6 Medical (six) Branch hours as needed for Nausea and Vomiting (N/V) or Gastroesop hageal reflux. famotidine 2022-0 Yes [id number] 20mg Take 1 [facility] 20 mg 8-31 tablet by [facility] of tablet 00:00: mouth in [place] 00 the Medical morning Branch and 1 tablet in the evening. metoclopram 2022-0 Yes [id number] 10mg Take 1 [facility] HCl 10 8-31 tablet by [facility] of mg tablet 00:00: mouth [place] 00 every 6 Medical (six) Branch hours as needed for Nausea and Vomiting (N/V) or Gastroesop hageal reflux. famotidine 2022-0 Yes [id number] 20mg Take 1 [facility] 20 mg 8-31 tablet by [facility] of tablet 00:00: mouth in [place] 00 the Medical morning Branch and 1 tablet in the evening. metoclopram 2022-0 Yes [id number] 10mg Take 1 [facility] HCl 10 8-31 tablet by [facility] of mg tablet 00:00: mouth [place] [address] every 6 Medical (six) Branch hours as needed for Nausea and Vomiting (N/V) or Gastroesop hageal reflux. famotidine 2022-0 Yes [id number] 20mg Take 1 [facility] 20 mg 8-31 tablet by [facility] of tablet 00:00: mouth in [place] 00 the Medical morning Branch and 1 tablet in the evening. metoclopram 2022-0 Yes [id number] 10mg Take 1 [facility] HCl 10 8-31 tablet by [facility] of mg tablet 00:00: mouth [place] 00 every 6 Medical (six) Branch hours as needed for Nausea and Vomiting (N/V) or Gastroesop hageal reflux. famotidine 2022-0 Yes [id number] 20mg Take 1 [facility] 20 mg 8-31 tablet by [facility] of tablet 00:00: mouth in [place] 00 the Medical morning Branch and 1 tablet in the evening. metoclopram 2022-0 Yes [id number] 10mg Take 1 [facility] HCl 10 8-31 tablet by [facility] of mg tablet 00:00: mouth [place] 00 every 6 Medical (six) Branch hours as needed for Nausea and Vomiting (N/V) or Gastroesop hageal reflux. famotidine 2022-0 Yes [id number] 20mg Take 1 [facility] 20 mg 8-31 tablet by [facility] of tablet 00:00: mouth in [place] 00 the Medical morning Branch and 1 tablet in the evening. metoclopram 2022-0 Yes [id number] 10mg Take 1 [facility] HCl 10 8-31 tablet by [facility] of mg tablet 00:00: mouth [place] 00 every 6 Medical (six) Branch hours as needed for Nausea and Vomiting (N/V) or Gastroesop hageal reflux. famotidine 2022-0 Yes [id number] 20mg Take 1 [facility] 20 mg 8-31 tablet by [facility] of tablet 00:00: mouth in [place] 00 the Medical morning Branch and 1 tablet in the evening. metoclopram 2022-0 Yes [id number] 10mg Take 1 [facility] HCl 10 8-31 tablet by [facility] of mg tablet 00:00: mouth [place] 00 every 6 Medical (six) Branch hours as needed for Nausea and Vomiting (N/V) or Gastroesop hageal reflux. famotidine 2022-0 Yes [id number] 20mg Take 1 [facility] 20 mg 8-31 tablet by [facility] of tablet 00:00: mouth in [place] 00 the Medical morning Branch and 1 tablet in the evening. metoclopram 2022-0 Yes [id number] 10mg Take 1 [facility] HCl 10 8-31 tablet by [facility] of mg tablet 00:00: mouth [place] [address] every 6 Medical (six) Branch hours as needed for Nausea and Vomiting (N/V) or Gastroesop hageal reflux. famotidine 2022-0 Yes [id number] 20mg Take 1 [facility] 20 mg 8-31 tablet by [facility] of tablet 00:00: mouth in [place] 00 the Medical morning Branch and 1 tablet in the evening. metoclopram 2022-0 Yes [id number] 10mg Take 1 [facility] HCl 10 8-31 tablet by [facility] of mg tablet 00:00: mouth [place] [address] every 6 Medical (six) Branch hours as needed for Nausea and Vomiting (N/V) or Gastroesop hageal reflux. famotidine 2022-0 Yes [id number] 20mg Take 1 [facility] 20 mg 8-31 tablet by [facility] of tablet 00:00: mouth in [place] 00 the Medical morning Branch and 1 tablet in the evening. metoclopram 2022-0 Yes [id number] 10mg Take 1 [facility] HCl 10 8-31 tablet by [facility] of mg tablet 00:00: mouth [place] 00 every 6 Medical (six) Branch hours as needed for Nausea and Vomiting (N/V) or Gastroesop hageal reflux. famotidine 2022-0 Yes [id number] 20mg Take 1 [facility] 20 mg 8-31 tablet by [facility] of tablet 00:00: mouth in [place] 00 the Medical morning Branch and 1 tablet in the evening. metoclopram 2022-0 Yes [id number] 10mg Take 1 [facility] HCl 10 8-31 tablet by [facility] of mg tablet 00:00: mouth [place] 00 every 6 Medical (six) Branch hours as needed for Nausea and Vomiting (N/V) or Gastroesop hageal reflux. famotidine 2022-0 Yes [id number] 20mg Take 1 [facility] 20 mg 8-31 tablet by [facility] of tablet 00:00: mouth in [place] 00 the Medical morning Branch and 1 tablet in the evening. metoclopram 2022-0 Yes [id number] 10mg Take 1 [facility] HCl 10 8-31 tablet by [facility] of mg tablet 00:00: mouth [place] 00 every 6 Medical (six) Branch hours as needed for Nausea and Vomiting (N/V) or Gastroesop hageal reflux. famotidine 2022-0 Yes [id number] 20mg Take 1 [facility] 20 mg 8-31 tablet by [facility] of tablet 00:00: mouth in [place] 00 the Medical morning Branch and 1 tablet in the evening. metoclopram 2022-0 Yes [id number] 10mg Take 1 [facility] HCl 10 8-31 tablet by [facility] of mg tablet 00:00: mouth [place] 00 every 6 Medical (six) Branch hours as needed for Nausea and Vomiting (N/V) or Gastroesop hageal reflux. famotidine 2022-0 Yes [id number] 20mg Take 1 [facility] 20 mg 8-31 tablet by [facility] tablet 00:00: mouth in [place] 00 the Medical morning Branch and 1 tablet in the evening. metoclopram 2022-0 Yes [id number] 10mg Take 1 [facility] 10 8-31 tablet by [facility] mg tablet 00:00: mouth [place] 00 every 6 Medical (six) Branch hours as needed for Nausea and Vomiting (N/V) or Gastroesop hageal reflux. famotidine 2022-0 Yes [id number] 20mg Take 1 [facility] 20 mg 8-31 tablet by [facility] tablet 00:00: mouth in [place] 00 the Medical morning Branch and 1 tablet in the evening. metoclopram 2022-0 Yes [id number] 10mg Take 1 [facility] 10 8-31 tablet by [facility] mg tablet 00:00: mouth [place] 00 every 6 Medical (six) Branch hours as needed for Nausea and Vomiting (N/V) or Gastroesop hageal reflux. famotidine 2022-0 Yes [id number] 20mg Take 1 [facility] 20 mg 8-31 tablet by [facility] tablet 00:00: mouth in [place] 00 the Medical morning Branch and 1 tablet in the evening. metoclopram 2022-0 Yes [id number] 10mg Take 1 [facility] 10 8-31 tablet by [facility] mg tablet 00:00: mouth [place] 00 every 6 Medical (six) Branch hours as needed for Nausea and Vomiting (N/V) or Gastroesop hageal reflux. famotidine 2022-0 Yes [id number] 20mg Take 1 [facility] 20 mg 8-31 tablet by [facility] tablet 00:00: mouth in [place] 00 the Medical morning Branch and 1 tablet in the evening. metoclopram 2022-0 Yes [id number] 10mg Take 1 [facility] 10 8-31 tablet by [facility] mg tablet 00:00: mouth [place] 00 every 6 Medical (six) Branch hours as needed for Nausea and Vomiting (N/V) or Gastroesop hageal reflux. famotidine 2022-0 Yes [id number] 20mg Take 1 [facility] 20 mg 8-31 tablet by [facility] tablet 00:00: mouth in [place] 00 the Medical morning Branch and 1 tablet in the evening. metoclopram 2022-0 Yes [id number] 10mg Take 1 [facility] 10 8-31 tablet by [facility] mg tablet 00:00: mouth [place] 00 every 6 Medical (six) Branch hours as needed for Nausea and Vomiting (N/V) or Gastroesop hageal reflux. famotidine 2022-0 Yes [id number] 20mg Take 1 [facility] 20 mg 8-31 tablet by [facility] tablet 00:00: mouth in [place] 00 the Medical morning Branch and 1 tablet in the evening. metoclopram 2022-0 Yes [id number] 10mg Take 1 [facility] 10 8-31 tablet by [facility] mg tablet 00:00: mouth [place] 00 every 6 Medical (six) Branch hours as needed for Nausea and Vomiting (N/V) or Gastroesop hageal reflux. famotidine 2022-0 Yes [id number] 20mg Take 1 [facility] 20 mg 8-31 tablet by [facility] tablet 00:00: mouth in [place] 00 the Medical morning Branch and 1 tablet in the evening. metoclopram 2022-0 Yes [id number] 10mg Take 1 [facility] 10 8-31 tablet by [facility] mg tablet 00:00: mouth [place] 00 every 6 Medical (six) Branch hours as needed for Nausea and Vomiting (N/V) or Gastroesop hageal reflux. famotidine 2022-0 Yes [id number] 20mg Take 1 [facility] 20 mg 8-31 tablet by [facility] tablet 00:00: mouth in [place] 00 the Medical morning Branch and 1 tablet in the evening. metoclopram 2022-0 Yes [id number] 10mg Take 1 [facility] 10 8-31 tablet by [facility] mg tablet 00:00: mouth [place] 00 every 6 Medical (six) Branch hours as needed for Nausea and Vomiting (N/V) or Gastroesop hageal reflux. famotidine 2022-0 Yes [id number] 20mg Take 1 [facility] 20 mg 8-31 tablet by [facility] tablet 00:00: mouth in [place] 00 the Medical morning Branch and 1 tablet in the evening. metoclopram 2022-0 Yes [id number] 10mg Take 1 [facility] 10 8-31 tablet by [facility] mg tablet 00:00: mouth [place] 00 every 6 Medical (six) Branch hours as needed for Nausea and Vomiting (N/V) or Gastroesop hageal reflux. famotidine 2022-0 Yes [id number] 20mg Take 1 [facility] 20 mg 8-31 tablet by [facility] tablet 00:00: mouth in [place] 00 the Medical morning Branch and 1 tablet in the evening. metoclopram 2022-0 Yes [id number] 10mg Take 1 [facility] 10 8-31 tablet by [facility] mg tablet 00:00: mouth [place] 00 every 6 Medical (six) Branch hours as needed for Nausea and Vomiting (N/V) or Gastroesop hageal reflux. famotidine 2022-0 Yes [id number] 20mg Take 1 [facility] 20 mg 8-31 tablet by [facility] tablet 00:00: mouth in [place] 00 the Medical morning Branch and 1 tablet in the evening. metoclopram 2022-0 Yes [id number] 10mg Take 1 [facility] 10 8-31 tablet by [facility] mg tablet 00:00: mouth [place] 00 every 6 Medical (six) Branch hours as needed for Nausea and Vomiting (N/V) or Gastroesop hageal reflux. famotidine 2022-0 Yes [id number] 20mg Take 1 [facility] 20 mg 8-31 tablet by [facility] tablet 00:00: mouth in [place] 00 the Medical morning Branch and 1 tablet in the evening. metoclopram 2022-0 Yes [id number] 10mg Take 1 [facility] 10 8-31 tablet by [facility] mg tablet 00:00: mouth [place] [address] every 6 Medical (six) Branch hours as needed for Nausea and Vomiting (N/V) or Gastroesop hageal reflux. famotidine 2022-0 Yes [id number] 20mg Take 1 [facility] 20 mg 8-31 tablet by [facility] tablet 00:00: mouth in [place] 00 the Medical morning Branch and 1 tablet in the evening. metoclopram 2022-0 Yes [id number] 10mg Take 1 [facility] 10 8-31 tablet by [facility] mg tablet 00:00: mouth [place] 00 every 6 Medical (six) Branch hours as needed for Nausea and Vomiting (N/V) or Gastroesop hageal reflux. famotidine 2022-0 Yes [id number] 20mg Take 1 [facility] 20 mg 8-31 tablet by [facility] tablet 00:00: mouth in [place] 00 the Medical morning Branch and 1 tablet in the evening. metoclopram 2022-0 Yes [id number] 10mg Take 1 [facility] 10 8-31 tablet by [facility] mg tablet 00:00: mouth [place] 00 every 6 Medical (six) Branch hours as needed for Nausea and Vomiting (N/V) or Gastroesop hageal reflux. famotidine 2022-0 Yes [id number] 20mg Take 1 [facility] 20 mg 8-31 tablet by [facility] tablet 00:00: mouth in [place] 00 the Medical morning Branch and 1 tablet in the evening. metoclopram 2022-0 Yes [id number] 10mg Take 1 [facility] 10 8-31 tablet by [facility] mg tablet 00:00: mouth [place] 00 every 6 Medical (six) Branch hours as needed for Nausea and Vomiting (N/V) or Gastroesop hageal reflux. famotidine 2022-0 Yes [id number] 20mg Take 1 [facility] 20 mg 8-31 tablet by [facility] tablet 00:00: mouth in [place] 00 the Medical morning Branch and 1 tablet in the evening. metoclopram 2022-0 Yes [id number] 10mg Take 1 [facility] 10 8-31 tablet by [facility] mg tablet 00:00: mouth [place] [address] every 6 Medical (six) Branch hours as needed for Nausea and Vomiting (N/V) or Gastroesop hageal reflux. famotidine 2022-0 Yes [id number] 20mg Take 1 [facility] 20 mg 8-31 tablet by [facility] tablet 00:00: mouth in [place] [address] the Medical morning Branch and 1 tablet in the evening. metoclopram 2022-0 Yes [id number] 10mg Take 1 [facility] 10 8-31 tablet by [facility] mg tablet 00:00: mouth [place] [address] every 6 Medical (six) Branch hours as needed for Nausea and Vomiting (N/V) or Gastroesop hageal reflux. famotidine 2022-0 Yes [id number] 20mg Take 1 [facility] 20 mg 8-31 tablet by [facility] tablet 00:00: mouth in [place] 00 the Medical morning Branch and 1 tablet in the evening. metoclopram 2022-0 Yes [id number] 10mg Take 1 [facility] 10 8-31 tablet by [facility] mg tablet 00:00: mouth [place] [address] every 6 Medical (six) Branch hours as needed for Nausea and Vomiting (N/V) or Gastroesop hageal reflux. famotidine 2022-0 Yes [id number] 20mg Take 1 [facility] 20 mg 8-31 tablet by [facility] tablet 00:00: mouth in [place] 00 the Medical morning Branch and 1 tablet in the evening. metoclopram 2022-0 Yes [id number] 10mg Take 1 [facility] 10 8-31 tablet by [facility] mg tablet 00:00: mouth [place] 00 every 6 Medical (six) Branch hours as needed for Nausea and Vomiting (N/V) or Gastroesop hageal reflux. famotidine 2022-0 Yes [id number] 20mg Take 1 [facility] 20 mg 8-31 tablet by [facility] tablet 00:00: mouth in [place] 00 the Medical morning Branch and 1 tablet in the evening. metoclopram 2022-0 Yes [id number] 10mg Take 1 [facility] 10 8-31 tablet by [facility] mg tablet 00:00: mouth [place] 00 every 6 Medical (six) Branch hours as needed for Nausea and Vomiting (N/V) or Gastroesop hageal reflux. famotidine 2022-0 Yes [id number] 20mg Take 1 [facility] 20 mg 8-31 tablet by [facility] tablet 00:00: mouth in [place] 00 the Medical morning Branch and 1 tablet in the evening. metoclopram 2022-0 Yes [id number] 10mg Take 1 [facility] 10 8-31 tablet by [facility] mg tablet 00:00: mouth [place] 00 every 6 Medical (six) Branch hours as needed for Nausea and Vomiting (N/V) or Gastroesop hageal reflux. famotidine 2022-0 Yes [id number] 20mg Take 1 [facility] 20 mg 8-31 tablet by [facility] tablet 00:00: mouth in [place] 00 the Medical morning Branch and 1 tablet in the evening. metoclopram 2022-0 Yes [id number] 10mg Take 1 [facility] 10 8-31 tablet by [facility] mg tablet 00:00: mouth [place] 00 every 6 Medical (six) Branch hours as needed for Nausea and Vomiting (N/V) or Gastroesop hageal reflux. famotidine 2022-0 Yes [id number] 20mg Take 1 [facility] 20 mg 8-31 tablet by [facility] tablet 00:00: mouth in [place] 00 the Medical morning Branch and 1 tablet in the evening. metoclopram 2022-0 Yes [id number] 10mg Take 1 [facility] 10 8-31 tablet by [facility] mg tablet 00:00: mouth [place] 00 every 6 Medical (six) Branch hours as needed for Nausea and Vomiting (N/V) or Gastroesop hageal reflux. famotidine 2022-0 Yes [id number] 20mg Take 1 [facility] 20 mg 8-31 tablet by [facility] tablet 00:00: mouth in [place] 00 the Medical morning Branch and 1 tablet in the evening. metoclopram 2022-0 Yes [id number] 10mg Take 1 [facility] 10 8-31 tablet by [facility] mg tablet 00:00: mouth [place] 00 every 6 Medical (six) Branch hours as needed for Nausea and Vomiting (N/V) or Gastroesop hageal reflux. famotidine 2022-0 Yes [id number] 20mg Take 1 [facility] 20 mg 8-31 tablet by [facility] tablet 00:00: mouth in [place] 00 the Medical morning Branch and 1 tablet in the evening. metoclopram 2022-0 Yes [id number] 10mg Take 1 [facility] 10 8-31 tablet by [facility] mg tablet 00:00: mouth [place] 00 every 6 Medical (six) Branch hours as needed for Nausea and Vomiting (N/V) or Gastroesop hageal reflux. famotidine 2022-0 Yes [id number] 20mg Take 1 [facility] 20 mg 8-31 tablet by [facility] tablet 00:00: mouth in [place] 00 the Medical morning Branch and 1 tablet in the evening. metoclopram 2022-0 Yes [id number] 10mg Take 1 [facility] 10 8-31 tablet by [facility] mg tablet 00:00: mouth [place] 00 every 6 Medical (six) Branch hours as needed for Nausea and Vomiting (N/V) or Gastroesop hageal reflux. famotidine 2022-0 Yes [id number] 20mg Take 1 [facility] 20 mg 8-31 tablet by [facility] tablet 00:00: mouth in [place] 00 the Medical morning Branch and 1 tablet in the evening. metoclopram 2022-0 Yes [id number] 10mg Take 1 [facility] 10 8-31 tablet by [facility] mg tablet 00:00: mouth [place] 00 every 6 Medical (six) Branch hours as needed for Nausea and Vomiting (N/V) or Gastroesop hageal reflux. famotidine 2022-0 Yes [id number] 20mg Take 1 [facility] 20 mg 8-31 tablet by [facility] tablet 00:00: mouth in [place] 00 the Medical morning Branch and 1 tablet in the evening. metoclopram 2022-0 Yes [id number] 10mg Take 1 [facility] 10 8-31 tablet by [facility] mg tablet 00:00: mouth [place] 00 every 6 Medical (six) Branch hours as needed for Nausea and Vomiting (N/V) or Gastroesop hageal reflux. famotidine 2022-0 Yes [id number] 20mg Take 1 [facility] 20 mg 8-31 tablet by [facility] tablet 00:00: mouth in [place] 00 the Medical morning Branch and 1 tablet in the evening. metoclopram 2022-0 Yes [id number] 10mg Take 1 [facility] 10 8-31 tablet by [facility] mg tablet 00:00: mouth [place] 00 every 6 Medical (six) Branch hours as needed for Nausea and Vomiting (N/V) or Gastroesop hageal reflux. famotidine 2022-0 Yes [id number] 20mg Take 1 [facility] 20 mg 8-31 tablet by [facility] tablet 00:00: mouth in [place] 00 the Medical morning Branch and 1 tablet in the evening. metoclopram 2022-0 Yes [id number] 10mg Take 1 [facility] 10 8-31 tablet by [facility] mg tablet 00:00: mouth [place] 00 every 6 Medical (six) Branch hours as needed for Nausea and Vomiting (N/V) or Gastroesop hageal reflux. famotidine 2022-0 Yes [id number] 20mg Take 1 [facility] 20 mg 8-31 tablet by [facility] tablet 00:00: mouth in [place] 00 the Medical morning Branch and 1 tablet in the evening. metoclopram 2022-0 Yes [id number] 10mg Take 1 [facility] 10 8-31 tablet by [facility] mg tablet 00:00: mouth [place] 00 every 6 Medical (six) Branch hours as needed for Nausea and Vomiting (N/V) or Gastroesop hageal reflux. famotidine 2022-0 Yes [id number] 20mg Take 1 [facility] 20 mg 8-31 tablet by [facility] tablet 00:00: mouth in [place] 00 the Medical morning Branch and 1 tablet in the evening. metoclopram 2022-0 Yes [id number] 10mg Take 1 [facility] 10 8-31 tablet by [facility] mg tablet 00:00: mouth [place] 00 every 6 Medical (six) Branch hours as needed for Nausea and Vomiting (N/V) or Gastroesop hageal reflux. famotidine 2022-0 Yes [id number] 20mg Take 1 [facility] 20 mg 8-31 tablet by [facility] tablet 00:00: mouth in [place] 00 the Medical morning Branch and 1 tablet in the evening. metoclopram 2022-0 Yes [id number] 10mg Take 1 [facility] 10 8-31 tablet by [facility] mg tablet 00:00: mouth [place] 00 every 6 Medical (six) Branch hours as needed for Nausea and Vomiting (N/V) or Gastroesop hageal reflux. famotidine 2022-0 Yes [id number] 20mg Take 1 [facility] 20 mg 8-31 tablet by [facility] tablet 00:00: mouth in [place] 00 the Medical morning Branch and 1 tablet in the evening. metoclopram 2022-0 Yes [id number] 10mg Take 1 [facility] 10 8-31 tablet by [facility] mg tablet 00:00: mouth [place] 00 every 6 Medical (six) Branch hours as needed for Nausea and Vomiting (N/V) or Gastroesop hageal reflux. famotidine 2022-0 Yes [id number] 20mg Take 1 [facility] 20 mg 8-31 tablet by [facility] tablet 00:00: mouth in [place] 00 the Medical morning Branch and 1 tablet in the evening. metoclopram 2022-0 Yes [id number] 10mg Take 1 [facility] 10 8-31 tablet by [facility] mg tablet 00:00: mouth [place] 00 every 6 Medical (six) Branch hours as needed for Nausea and Vomiting (N/V) or Gastroesop hageal reflux. famotidine 2022-0 Yes [id number] 20mg Take 1 [facility] 20 mg 8-31 tablet by [facility] tablet 00:00: mouth in [place] 00 the Medical morning Branch and 1 tablet in the evening. metoclopram 2022-0 Yes [id number] 10mg Take 1 [facility] 10 8-31 tablet by [facility] mg tablet 00:00: mouth [place] 00 every 6 Medical (six) Branch hours as needed for Nausea and Vomiting (N/V) or Gastroesop hageal reflux. famotidine 2022-0 Yes [id number] 20mg Take 1 [facility] 20 mg 8-31 tablet by [facility] tablet 00:00: mouth in [place] 00 the Medical morning Branch and 1 tablet in the evening. metoclopram 2022-0 Yes [id number] 10mg Take 1 [facility] HCl 10 8-31 tablet by [facility] mg tablet 00:00: mouth [place] 00 every 6 Medical (six) Branch hours as needed for Nausea and Vomiting (N/V) or Gastroesop hageal reflux. famotidine 2022-0 Yes [id number] 20mg Take 1 [facility] 20 mg 8-31 tablet by [facility] tablet 00:00: mouth in [place] 00 the Medical morning Branch and 1 tablet in the evening. metoclopram 2022-0 Yes [id number] 10mg Take 1 [facility] 10 8-31 tablet by [facility] mg tablet 00:00: mouth [place] 00 every 6 Medical (six) Branch hours as needed for Nausea and Vomiting (N/V) or Gastroesop hageal reflux. famotidine 2022-0 Yes [id number] 20mg Take 1 [facility] 20 mg 8-31 tablet by [facility] tablet 00:00: mouth in [place] 00 the Medical morning Branch and 1 tablet in the evening. metoclopram 2022-0 Yes [id number] 10mg Take 1 [facility] 10 8-31 tablet by [facility] mg tablet 00:00: mouth [place] 00 every 6 Medical (six) Branch hours as needed for Nausea and Vomiting (N/V) or Gastroesop hageal reflux. famotidine 2022-0 Yes [id number] 20mg Take 1 [facility] 20 mg 8-31 tablet by [facility] tablet 00:00: mouth in [place] 00 the Medical morning Branch and 1 tablet in the evening. metoclopram 2022-0 Yes [id number] 10mg Take 1 [facility] 10 8-31 tablet by [facility] mg tablet 00:00: mouth [place] 00 every 6 Medical (six) Branch hours as needed for Nausea and Vomiting (N/V) or Gastroesop hageal reflux. famotidine 2022-0 Yes [id number] 20mg Take 1 [facility] 20 mg 8-31 tablet by [facility] tablet 00:00: mouth in [place] 00 the Medical morning Branch and 1 tablet in the evening. metoclopram 2022-0 Yes [id number] 10mg Take 1 [facility] 10 8-31 tablet by [facility] mg tablet 00:00: mouth [place] 00 every 6 Medical (six) Branch hours as needed for Nausea and Vomiting (N/V) or Gastroesop hageal reflux. famotidine 2022-0 Yes [id number] 20mg Take 1 [facility] 20 mg 8-31 tablet by [facility] tablet 00:00: mouth in [place] 00 the Medical morning Branch and 1 tablet in the evening. metoclopram 2022-0 Yes [id number] 10mg Take 1 [facility] 10 8-31 tablet by [facility] mg tablet 00:00: mouth [place] 00 every 6 Medical (six) Branch hours as needed for Nausea and Vomiting (N/V) or Gastroesop hageal reflux. famotidine 2022-0 Yes [id number] 20mg Take 1 [facility] 20 mg 8-31 tablet by [facility] tablet 00:00: mouth in [place] 00 the Medical morning Branch and 1 tablet in the evening. metoclopram 2022-0 Yes [id number] 10mg Take 1 [facility] 10 8-31 tablet by [facility] mg tablet 00:00: mouth [place] [address] every 6 Medical (six) Branch hours as needed for Nausea and Vomiting (N/V) or Gastroesop hageal reflux. famotidine 2022-0 Yes [id number] 20mg Take 1 [facility] 20 mg 8-31 tablet by [facility] tablet 00:00: mouth in [place] 00 the Medical morning Branch and 1 tablet in the evening. metoclopram 2022-0 Yes [id number] 10mg Take 1 [facility] 10 8-31 tablet by [facility] mg tablet 00:00: mouth [place] 00 every 6 Medical (six) Branch hours as needed for Nausea and Vomiting (N/V) or Gastroesop hageal reflux. famotidine 2022-0 Yes [id number] 20mg Take 1 [facility] 20 mg 8-31 tablet by [facility] tablet 00:00: mouth in [place] 00 the Medical morning Branch and 1 tablet in the evening. metoclopram 2022-0 Yes [id number] 10mg Take 1 [facility] 10 8-31 tablet by [facility] mg tablet 00:00: mouth [place] 00 every 6 Medical (six) Branch hours as needed for Nausea and Vomiting (N/V) or Gastroesop hageal reflux. famotidine 2022-0 Yes [id number] 20mg Take 1 [facility] 20 mg 8-31 tablet by [facility] tablet 00:00: mouth in [place] 00 the Medical morning Branch and 1 tablet in the evening. metoclopram 2022- No [id number] 10mg Take 1 [facility] HCl 10 8- 02-10 tablet by [facility] mg tablet 00:00: 00:00 mouth [place] 00 :00 every 6 Medical (six) Branch hours as needed for Nausea and Vomiting (N/V) or Gastroesop hageal reflux. famotidine 2022- No [id number] 20mg Take 1 [facility] 20 mg 8- 02-10 tablet by [facility] tablet 00:00: 00:00 mouth in [place] 00 :00 the Medical morning Branch and 1 tablet in the evening. metoclopram 2022- No [id number] 10mg Take 1 [facility] HCl 10 8- 02-10 tablet by [facility] mg tablet 00:00: 00:00 mouth [place] 00 :00 every 6 Medical (six) Branch hours as needed for Nausea and Vomiting (N/V) or Gastroesop hageal reflux. famotidine 2022- No [id number] 20mg Take 1 [facility] 20 mg 8- 02-10 tablet by [facility] tablet 00:00: 00:00 mouth in [place] 00 :00 the Medical morning Branch and 1 tablet in the evening. doxylamine 0 Yes [id number] 25mg Take 1 [facility] 25 mg 7-28 tablet by [facility] tablet 00:00: mouth at [place] [address] bedtime. Medical Branch doxylamine 0 Yes [id number] 25mg Take 1 [facility] 25 mg 7-28 tablet by [facility] tablet 00:00: mouth at [place] [address] bedtime. Medical Branch doxylamine 2021-0 Yes [id number] 25mg Take 1 [facility] 25 mg 7-28 tablet by [facility] tablet 00:00: mouth at [place] [address] bedtime. Medical Branch doxylamine 2021-0 Yes [id number] 25mg Take 1 [facility] 25 mg 7-28 tablet by [facility] tablet 00:00: mouth at [place] [address] bedtime. Medical Branch doxylamine 2021-0 Yes [id number] 25mg Take 1 [facility] 25 mg 7-28 tablet by [facility] tablet 00:00: mouth at [place] [address] bedtime. Medical Branch doxylamine 2022-0 Yes [id number] 25mg Take 1 [facility] 25 mg 7-28 tablet by [facility] tablet 00:00: mouth at [place] [address] bedtime. Medical Branch doxylamine Yes [id number] 25mg Take 1 [facility] 25 mg 7-28 tablet by [facility] tablet 00:00: mouth at [place] [address] bedtime. Medical Branch doxylamine Yes [id number] 25mg Take 1 [facility] 25 mg 7-28 tablet by [facility] tablet 00:00: mouth at [place] [address] bedtime. [facility] Branch doxylamine Yes [id number] 25mg Take 1 [facility] 25 mg 7-28 tablet by [facility] tablet 00:00: mouth at [place] [address] bedtime. [facility] Branch doxylamine Yes [id number] 25mg Take 1 [facility] 25 mg 7-28 tablet by [facility] tablet 00:00: mouth at [place] [address] bedtime. [facility] Branch doxylamine Yes [id number] 25mg Take 1 [facility] 25 mg 7-28 tablet by [facility] tablet 00:00: mouth at [place] [address] bedtime. [facility] Branch doxylamine Yes [id number] 25mg Take 1 [facility] 25 mg 7-28 tablet by [facility] tablet 00:00: mouth at [place] [address] bedtime. [facility] doxylamine Yes [id number] 25mg Take 1 [facility] 25 mg 7-28 tablet by [facility] tablet 00:00: mouth at [place] [address] bedtime. [facility] Branch doxylamine Yes [id number] 25mg Take 1 [facility] 25 mg 7-28 tablet by [facility] tablet 00:00: mouth at [place] [address] bedtime. [facility] Branch doxylamine Yes [id number] 25mg Take 1 [facility] 25 mg 7-28 tablet by [facility] tablet 00:00: mouth at [place] [address] bedtime. [facility] Branch doxylamine 0 Yes [id number] 25mg Take 1 [facility] 25 mg 7-28 tablet by [facility] tablet 00:00: mouth at [place] [address] bedtime. Medical Branch doxylamine Yes [id number] 25mg Take 1 [facility] 25 mg 7-28 tablet by [facility] tablet 00:00: mouth at [place] [address] bedtime. Medical Branch doxylamine Yes [id number] 25mg Take 1 [facility] 25 mg 7-28 tablet by [facility] tablet 00:00: mouth at [place] [address] bedtime. [facility] Branch doxylamine Yes [id number] 25mg Take 1 [facility] 25 mg 7-28 tablet by [facility] tablet 00:00: mouth at [place] [address] bedtime. [facility] Branch doxylamine Yes [id number] 25mg Take 1 [facility] 25 mg 7-28 tablet by [facility] of tablet 00:00: mouth at [place] [address] bedtime. Medical Branch doxylamine Yes [id number] 25mg Take 1 [facility] 25 mg 7-28 tablet by [facility] of tablet 00:00: mouth at [place] [address] bedtime. Medical Branch doxylamine Yes [id number] 25mg Take 1 [facility] 25 mg 7-28 tablet by [facility] of tablet 00:00: mouth at [place] [address] bedtime. [facility] Branch doxylamine Yes [id number] 25mg Take 1 [facility] 25 mg 7-28 tablet by [facility] of tablet 00:00: mouth at [place] [address] bedtime. Medical Branch doxylamine Yes [id number] 25mg Take 1 [facility] 25 mg 7-28 tablet by [facility] of tablet 00:00: mouth at [place] [address] bedtime. [facility] Branch doxylamine Yes [id number] 25mg Take 1 [facility] 25 mg 7-28 tablet by [facility] of tablet 00:00: mouth at [place] [address] bedtime. [facility] Branch doxylamine Yes [id number] 25mg Take 1 [facility] 25 mg 7-28 tablet by [facility] of tablet 00:00: mouth at [place] [address] bedtime. [facility] Branch doxylamine Yes [id number] 25mg Take 1 [facility] 25 mg 7-28 tablet by [facility] of tablet 00:00: mouth at [place] [address] bedtime. [facility] Branch doxylamine 0 Yes [id number] 25mg Take 1 [facility] 25 mg 7-28 tablet by [facility] of tablet 00:00: mouth at [place] [address] bedtime. Medical Branch doxylamine Yes [id number] 25mg Take 1 [facility] 25 mg 7-28 tablet by [facility] of tablet 00:00: mouth at [place] [address] bedtime. Medical Branch doxylamine Yes [id number] 25mg Take 1 [facility] 25 mg 7-28 tablet by [facility] of tablet 00:00: mouth at [place] [address] bedtime. [facility] doxylamine Yes [id number] 25mg Take 1 [facility] 25 mg 7-28 tablet by [facility] of tablet 00:00: mouth at [place] [address] bedtime. [facility] doxylamine Yes [id number] 25mg Take 1 [facility] 25 mg 7-28 tablet by [facility] of tablet 00:00: mouth at [place] [address] bedtime. [facility] doxylamine Yes [id number] 25mg Take 1 [facility] 25 mg 7-28 tablet by [facility] of tablet 00:00: mouth at [place] [address] bedtime. [facility] doxylamine 2021- No [id number] 25mg Take 1 [facility] 25 mg 7-28 10-21 tablet by ity of tablet 00:00: 00:00 mouth at [place] 00 :00 bedtime. [facility] doxylamine 2021- No [id number] 25mg Take 1 [facility] 25 mg 7-28 10-21 tablet by ity of tablet 00:00: 00:00 mouth at [place] 00 :00 bedtime. [facility] doxylamine 2021- No [id number] 25mg Take 1 [facility] 25 mg 7-28 10-21 tablet by ity of tablet 00:00: 00:00 mouth at [place] 00 :00 bedtime. [facility] doxylamine 2021- No [id number] 25mg Take 1 [facility] 25 mg 7-28 10-21 tablet by ity of tablet 00:00: 00:00 mouth at [place] 00 :00 bedtime. [facility] doxylamine- Yes [id number] Doxylamine [facility] pyridoxine, 02-07 10 ity of [...] mg (4 tablets) per day). albuterol Yes [id number] 2{puff} Inhale 2 [facility] 90 7-08 Puffs ity of mcg/actuati 00:00: every 6 [place] as on inhaler 00 (six) Medical hours as Branch needed for Shortness of Breath. doxylamine- Yes [id number] Doxylamine [facility] pyridoxine, 02-07 10 ity of [...] mg (4 tablets) per day). albuterol Yes [id number] 2{puff} Inhale 2 [facility] 90 7-08 Puffs ity of mcg/actuati 00:00: every 6 [place] as on inhaler 00 (six) Medical hours as Branch needed for Shortness of Breath. doxylamine- Yes [id number] Doxylamine [facility] pyridoxine, 02-07 10 ity of [...] mg (4 tablets) per day). albuterol Yes [id number] 2{puff} Inhale 2 [facility] 90 7-08 Puffs ity of mcg/actuati 00:00: every 6 [place] as on inhaler 00 (six) Medical hours as Branch needed for Shortness of Breath. doxylamine- Yes [id number] Doxylamine [facility] pyridoxine, 02-07 10 ity of [...] mg (4 tablets) per day). albuterol Yes [id number] 2{puff} Inhale 2 [facility] 90 7-08 Puffs ity of mcg/actuati 00:00: every 6 [place] as on inhaler 00 (six) Medical hours as Branch needed for Shortness of Breath. doxylamine- Yes [id number] Doxylamine [facility] pyridoxine, 02-07 10 ity of [...] mg (4 tablets) per day). albuterol Yes [id number] 2{puff} Inhale 2 [facility] 90 7-08 Puffs ity of mcg/actuati 00:00: every 6 [place] as on inhaler 00 (six) Medical hours as Branch needed for Shortness of Breath. doxylamine- Yes [id number] Doxylamine [facility] pyridoxine, 02-07 10 ity of [...] mg (4 tablets) per day). albuterol Yes [id number] 2{puff} Inhale 2 [facility] 90 7-08 Puffs ity of mcg/actuati 00:00: every 6 [place] as on inhaler 00 (six) Medical hours as Branch needed for Shortness of Breath. doxylamine- Yes [id number] Doxylamine [facility] pyridoxine, 02-07 10 ity of [...] mg (4 tablets) per day). albuterol Yes [id number] 2{puff} Inhale 2 [facility] 90 7-08 Puffs ity of mcg/actuati 00:00: every 6 [place] as on inhaler 00 (six) Medical hours as Branch needed for Shortness of Breath. doxylamine- Yes [id number] Doxylamine [facility] pyridoxine, 02-07 10 ity of [...] mg (4 tablets) per day). albuterol Yes [id number] 2{puff} Inhale 2 [facility] 90 7-08 Puffs ity of mcg/actuati 00:00: every 6 [place] as on inhaler 00 (six) Medical hours as Branch needed for Shortness of Breath. doxylamine- Yes [id number] Doxylamine [facility] pyridoxine, 02-07 10 ity of [...] mg (4 tablets) per day). albuterol Yes [id number] 2{puff} Inhale 2 [facility] 90 7-08 Puffs ity of mcg/actuati 00:00: every 6 [place] as on inhaler 00 (six) Medical hours as Branch needed for Shortness of Breath. doxylamine- Yes [id number] Doxylamine [facility] pyridoxine, 02-07 10 ity of [...] mg (4 tablets) per day). albuterol Yes [id number] 2{puff} Inhale 2 [facility] 90 7-08 Puffs ity of mcg/actuati 00:00: every 6 [place] as on inhaler 00 (six) Medical hours as Branch needed for Shortness of Breath. doxylamine- Yes [id number] Doxylamine [facility] pyridoxine, 02-07 10 ity of [...] mg (4 tablets) per day). albuterol Yes [id number] 2{puff} Inhale 2 [facility] 90 7-08 Puffs ity of mcg/actuati 00:00: every 6 [place] as on inhaler 00 (six) Medical hours as Branch needed for Shortness of Breath. doxylamine- Yes [id number] Doxylamine [facility] pyridoxine, 02-07 10 ity of [...] mg (4 tablets) per day). albuterol Yes [id number] 2{puff} Inhale 2 [facility] 90 7-08 Puffs ity of mcg/actuati 00:00: every 6 [place] as on inhaler 00 (six) Medical hours as Branch needed for Shortness of Breath. doxylamine- Yes [id number] Doxylamine [facility] pyridoxine, 02-07 10 ity of [...] mg (4 tablets) per day). albuterol Yes [id number] 2{puff} Inhale 2 [facility] 90 7-08 Puffs ity of mcg/actuati 00:00: every 6 [place] as on inhaler 00 (six) Medical hours as Branch needed for Shortness of Breath. doxylamine- Yes [id number] Doxylamine [facility] pyridoxine, 02-07 10 ity of [...] mg (4 tablets) per day). albuterol Yes [id number] 2{puff} Inhale 2 [facility] 90 7-08 Puffs ity of mcg/actuati 00:00: every 6 [place] as on inhaler 00 (six) Medical hours as Branch needed for Shortness of Breath. doxylamine- Yes [id number] Doxylamine [facility] pyridoxine, 02-07 10 ity of [...] mg (4 tablets) per day). albuterol Yes [id number] 2{puff} Inhale 2 [facility] 90 7-08 Puffs ity of mcg/actuati 00:00: every 6 [place] as on inhaler 00 (six) Medical hours as Branch needed for Shortness of Breath. doxylamine- Yes [id number] Doxylamine [facility] pyridoxine, 02-07 10 ity of [...] mg (4 tablets) per day). albuterol Yes [id number] 2{puff} Inhale 2 [facility] 90 7-08 Puffs ity of mcg/actuati 00:00: every 6 [place] as on inhaler 00 (six) Medical hours as Branch needed for Shortness of Breath. doxylamine- Yes [id number] Doxylamine [facility] pyridoxine, 02-07 10 ity of [...] mg (4 tablets) per day). albuterol Yes [id number] 2{puff} Inhale 2 [facility] 90 7-08 Puffs ity of mcg/actuati 00:00: every 6 [place] as on inhaler 00 (six) Medical hours as Branch needed for Shortness of Breath. doxylamine- Yes [id number] Doxylamine [facility] pyridoxine, 02-07 10 ity of [...] mg (4 tablets) per day). albuterol Yes [id number] 2{puff} Inhale 2 [facility] 90 7-08 Puffs ity of mcg/actuati 00:00: every 6 [place] as on inhaler 00 (six) Medical hours as Branch needed for Shortness of Breath. doxylamine- Yes [id number] Doxylamine [facility] pyridoxine, 02-07 10 ity of [...] mg (4 tablets) per day). albuterol Yes [id number] 2{puff} Inhale 2 [facility] 90 7-08 Puffs ity of mcg/actuati 00:00: every 6 [place] as on inhaler 00 (six) Medical hours as Branch needed for Shortness of Breath. doxylamine- Yes [id number] Doxylamine [facility] pyridoxine, 02-07 10 ity of [...] mg (4 tablets) per day). albuterol Yes [id number] 2{puff} Inhale 2 [facility] 90 7-08 Puffs ity of mcg/actuati 00:00: every 6 [place] as on inhaler 00 (six) Medical hours as Branch needed for Shortness of Breath. doxylamine- Yes [id number] Doxylamine [facility] pyridoxine, 02-07 10 ity of [...] mg (4 tablets) per day). albuterol Yes [id number] 2{puff} Inhale 2 [facility] 90 7-08 Puffs ity of mcg/actuati 00:00: every 6 [place] as on inhaler 00 (six) Medical hours as Branch needed for Shortness of Breath. doxylamine- Yes [id number] Doxylamine [facility] pyridoxine, 02-07 10 ity of [...] mg (4 tablets) per day). albuterol Yes [id number] 2{puff} Inhale 2 [facility] 90 7-08 Puffs ity of mcg/actuati 00:00: every 6 [place] as on inhaler 00 (six) Medical hours as Branch needed for Shortness of Breath. doxylamine- Yes [id number] Doxylamine [facility] pyridoxine, 02-07 10 ity of [...] mg (4 tablets) per day). albuterol Yes [id number] 2{puff} Inhale 2 [facility] 90 7-08 Puffs ity of mcg/actuati 00:00: every 6 [place] as on inhaler 00 (six) Medical hours as Branch needed for Shortness of Breath. doxylamine- Yes [id number] Doxylamine [facility] pyridoxine, 02-07 10 ity of [...] mg (4 tablets) per day). albuterol Yes [id number] 2{puff} Inhale 2 [facility] 90 7-08 Puffs ity of mcg/actuati 00:00: every 6 [place] as on inhaler 00 (six) Medical hours as Branch needed for Shortness of Breath. doxylamine- Yes [id number] Doxylamine [facility] pyridoxine, 02-07 10 ity of [...] mg (4 tablets) per day). albuterol Yes [id number] 2{puff} Inhale 2 [facility] 90 7-08 Puffs ity of mcg/actuati 00:00: every 6 [place] as on inhaler 00 (six) Medical hours as Branch needed for Shortness of Breath. doxylamine Yes [id number] Doxylamine [facility] pyridoxine, 02-07 10 ity of [...] mg (4 tablets) per day). albuterol Yes [id number] 2{puff} Inhale 2 [facility] 90 7-08 Puffs ity of mcg/actuati 00:00: every 6 [place] as on inhaler 00 (six) Medical hours as Branch needed for Shortness of Breath. doxylamine- Yes [id number] Doxylamine [facility] pyridoxine, 02-07 10 ity of [...] mg (4 tablets) per day). albuterol Yes [id number] 2{puff} Inhale 2 [facility] 90 7-08 Puffs ity of mcg/actuati 00:00: every 6 [place] as on inhaler 00 (six) Medical hours as Branch needed for Shortness of Breath. doxylamine- Yes [id number] Doxylamine [facility] pyridoxine, 02-07 10 ity of [...] mg (4 tablets) per day). albuterol Yes [id number] 2{puff} Inhale 2 [facility] 90 7-08 Puffs ity of mcg/actuati 00:00: every 6 [place] as on inhaler 00 (six) Medical hours as Branch needed for Shortness of Breath. doxylamine- Yes [id number] Doxylamine [facility] pyridoxine, 02-07 10 ity of [...] mg (4 tablets) per day). albuterol Yes [id number] 2{puff} Inhale 2 [facility] 90 7-08 Puffs ity of mcg/actuati 00:00: every 6 [place] as on inhaler 00 (six) Medical hours as Branch needed for Shortness of Breath. doxylamine- Yes [id number] Doxylamine [facility] pyridoxine, 02-07 10 ity of [...] mg (4 tablets) per day). albuterol Yes [id number] 2{puff} Inhale 2 [facility] 90 7-08 Puffs ity of mcg/actuati 00:00: every 6 [place] as on inhaler 00 (six) Medical hours as Branch needed for Shortness of Breath. doxylamine- Yes [id number] Doxylamine [facility] pyridoxine, 02-07 10 ity of [...] mg (4 tablets) per day). albuterol Yes [id number] 2{puff} Inhale 2 [facility] 90 7-08 Puffs ity of mcg/actuati 00:00: every 6 [place] as on inhaler 00 (six) Medical hours as Branch needed for Shortness of Breath. doxylamine- Yes [id number] Doxylamine [facility] pyridoxine, 02-07 10 ity of [...] mg (4 tablets) per day). albuterol Yes [id number] 2{puff} Inhale 2 [facility] 90 7-08 Puffs ity of mcg/actuati 00:00: every 6 [place] as on inhaler 00 (six) Medical hours as Branch needed for Shortness of Breath. doxylamine- Yes [id number] Doxylamine [facility] pyridoxine, 02-07 10 ity of [...] mg (4 tablets) per day). albuterol Yes [id number] 2{puff} Inhale 2 [facility] 90 7-08 Puffs ity of mcg/actuati 00:00: every 6 [place] as on inhaler 00 (six) Medical hours as Branch needed for Shortness of Breath. albuterol Yes [id number] 2{puff} Inhale 2 [facility] 90 7-08 Puffs ity of mcg/actuati 00:00: every 6 [place] as on inhaler 00 (six) Medical hours as Branch needed for Shortness of Breath. albuterol Yes [id number] 2{puff} Inhale 2 [facility] 90 7-08 Puffs ity of mcg/actuati 00:00: every 6 [place] as on inhaler 00 (six) Medical hours as Branch needed for Shortness of Breath. albuterol Yes [id number] 2{puff} Inhale 2 [facility] 90 7-08 Puffs ity of mcg/actuati 00:00: every 6 [place] as on inhaler 00 (six) Medical hours as Branch needed for Shortness of Breath. albuterol Yes [id number] 2{puff} Inhale 2 [facility] 90 7-08 Puffs ity of mcg/actuati 00:00: every 6 [place] as on inhaler 00 (six) Medical hours as Branch needed for Shortness of Breath. albuterol Yes [id number] 2{puff} Inhale 2 [facility] 90 7-08 Puffs ity of mcg/actuati 00:00: every 6 [place] as on inhaler 00 (six) Medical hours as Branch needed for Shortness of Breath. albuterol Yes [id number] 2{puff} Inhale 2 [facility] 90 7-08 Puffs ity of mcg/actuati 00:00: every 6 [place] as on inhaler 00 (six) Medical hours as Branch needed for Shortness of Breath. albuterol Yes [id number] 2{puff} Inhale 2 [facility] 90 7-08 Puffs ity of mcg/actuati 00:00: every 6 [place] as on inhaler 00 (six) Medical hours as Branch needed for Shortness of Breath. albuterol Yes [id number] 2{puff} Inhale 2 [facility] 90 7-08 Puffs ity of mcg/actuati 00:00: every 6 [place] as on inhaler 00 (six) Medical hours as Branch needed for Shortness of Breath. albuterol Yes [id number] 2{puff} Inhale 2 [facility] 90 7-08 Puffs ity of mcg/actuati 00:00: every 6 [place] as on inhaler 00 (six) Medical hours as Branch needed for Shortness of Breath. albuterol Yes [id number] 2{puff} Inhale 2 [facility] 90 7-08 Puffs ity of mcg/actuati 00:00: every 6 [place] as on inhaler 00 (six) Medical hours as Branch needed for Shortness of Breath. albuterol Yes [id number] 2{puff} Inhale 2 [facility] 90 7-08 Puffs ity of mcg/actuati 00:00: every 6 [place] as on inhaler 00 (six) Medical hours as Branch needed for Shortness of Breath. albuterol Yes [id number] 2{puff} Inhale 2 [facility] 90 7-08 Puffs ity of mcg/actuati 00:00: every 6 [place] as on inhaler 00 (six) Medical hours as Branch needed for Shortness of Breath. albuterol Yes [id number] 2{puff} Inhale 2 [facility] 90 7-08 Puffs ity of mcg/actuati 00:00: every 6 [place] as on inhaler 00 (six) Medical hours as Branch needed for Shortness of Breath. albuterol Yes [id number] 2{puff} Inhale 2 [facility] 90 7-08 Puffs ity of mcg/actuati 00:00: every 6 [place] as on inhaler 00 (six) Medical hours as Branch needed for Shortness of Breath. albuterol Yes [id number] 2{puff} Inhale 2 [facility] 90 7-08 Puffs ity of mcg/actuati 00:00: every 6 [place] as on inhaler 00 (six) Medical hours as Branch needed for Shortness of Breath. albuterol Yes [id number] 2{puff} Inhale 2 [facility] 90 7-08 Puffs ity of mcg/actuati 00:00: every 6 [place] as on inhaler 00 (six) Medical hours as Branch needed for Shortness of Breath. albuterol Yes [id number] 2{puff} Inhale 2 [facility] 90 7-08 Puffs ity of mcg/actuati 00:00: every 6 [place] as on inhaler 00 (six) Medical hours as Branch needed for Shortness of Breath. albuterol Yes [id number] 2{puff} Inhale 2 [facility] 90 7-08 Puffs ity of mcg/actuati 00:00: every 6 [place] as on inhaler 00 (six) Medical hours as Branch needed for Shortness of Breath. albuterol Yes [id number] 2{puff} Inhale 2 [facility] 90 7-08 Puffs ity of mcg/actuati 00:00: every 6 [place] as on inhaler 00 (six) Medical hours as Branch needed for Shortness of Breath. albuterol Yes [id number] 2{puff} Inhale 2 [facility] 90 7-08 Puffs ity of mcg/actuati 00:00: every 6 [place] as on inhaler 00 (six) Medical hours as Branch needed for Shortness of Breath. albuterol Yes [id number] 2{puff} Inhale 2 [facility] 90 7-08 Puffs ity of mcg/actuati 00:00: every 6 [place] as on inhaler 00 (six) Medical hours as Branch needed for Shortness of Breath. albuterol Yes [id number] 2{puff} Inhale 2 [facility] 90 7-08 Puffs ity of mcg/actuati 00:00: every 6 [place] as on inhaler 00 (six) Medical hours as Branch needed for Shortness of Breath. albuterol Yes [id number] 2{puff} Inhale 2 [facility] 90 7-08 Puffs ity of mcg/actuati 00:00: every 6 [place] as on inhaler 00 (six) Medical hours as Branch needed for Shortness of Breath. albuterol Yes [id number] 2{puff} Inhale 2 [facility] 90 7-08 Puffs ity of mcg/actuati 00:00: every 6 [place] as on inhaler 00 (six) Medical hours as Branch needed for Shortness of Breath. albuterol Yes [id number] 2{puff} Inhale 2 [facility] 90 7-08 Puffs ity of mcg/actuati 00:00: every 6 [place] as on inhaler 00 (six) Medical hours as Branch needed for Shortness of Breath. albuterol Yes [id number] 2{puff} Inhale 2 [facility] 90 7-08 Puffs ity of mcg/actuati 00:00: every 6 [place] as on inhaler 00 (six) Medical hours as Branch needed for Shortness of Breath. albuterol Yes [id number] 2{puff} Inhale 2 [facility] 90 7-08 Puffs ity of mcg/actuati 00:00: every 6 [place] as on inhaler 00 (six) Medical hours as Branch needed for Shortness of Breath. albuterol Yes [id number] 2{puff} Inhale 2 [facility] 90 7-08 Puffs ity of mcg/actuati 00:00: every 6 [place] as on inhaler 00 (six) Medical hours as Branch needed for Shortness of Breath. albuterol Yes [id number] 2{puff} Inhale 2 [facility] 90 7-08 Puffs ity of mcg/actuati 00:00: every 6 [place] as on inhaler 00 (six) Medical hours as Branch needed for Shortness of Breath. albuterol Yes [id number] 2{puff} Inhale 2 [facility] 90 7-08 Puffs ity of mcg/actuati 00:00: every 6 [place] as on inhaler 00 (six) Medical hours as Branch needed for Shortness of Breath. albuterol Yes [id number] 2{puff} Inhale 2 [facility] 90 7-08 Puffs ity of mcg/actuati 00:00: every 6 [place] as on inhaler 00 (six) Medical hours as Branch needed for Shortness of Breath. albuterol Yes [id number] 2{puff} Inhale 2 [facility] 90 7-08 Puffs ity of mcg/actuati 00:00: every 6 [place] as on inhaler 00 (six) Medical hours as Branch needed for Shortness of Breath. albuterol Yes [id number] 2{puff} Inhale 2 [facility] 90 7-08 Puffs ity of mcg/actuati 00:00: every 6 [place] as on inhaler 00 (six) Medical hours as Branch needed for Shortness of Breath. albuterol Yes [id number] 2{puff} Inhale 2 [facility] 90 7-08 Puffs ity of mcg/actuati 00:00: every 6 [place] as on inhaler 00 (six) Medical hours as Branch needed for Shortness of Breath. albuterol Yes [id number] 2{puff} Inhale 2 [facility] 90 7-08 Puffs ity of mcg/actuati 00:00: every 6 [place] as on inhaler 00 (six) Medical hours as Branch needed for Shortness of Breath. albuterol Yes [id number] 2{puff} Inhale 2 [facility] 90 7-08 Puffs ity of mcg/actuati 00:00: every 6 [place] as on inhaler 00 (six) Medical hours as Branch needed for Shortness of Breath. albuterol Yes [id number] 2{puff} Inhale 2 [facility] 90 7-08 Puffs ity of mcg/actuati 00:00: every 6 [place] as on inhaler 00 (six) Medical hours as Branch needed for Shortness of Breath. albuterol Yes [id number] 2{puff} Inhale 2 [facility] 90 7-08 Puffs ity of mcg/actuati 00:00: every 6 [place] as on inhaler 00 (six) Medical hours as Branch needed for Shortness of Breath. albuterol Yes [id number] 2{puff} Inhale 2 [facility] 90 7-08 Puffs ity of mcg/actuati 00:00: every 6 [place] as on inhaler 00 (six) Medical hours as Branch needed for Shortness of Breath. albuterol Yes [id number] 2{puff} Inhale 2 [facility] 90 7-08 Puffs ity of mcg/actuati 00:00: every 6 [place] as on inhaler 00 (six) Medical hours as Branch needed for Shortness of Breath. albuterol Yes [id number] 2{puff} Inhale 2 [facility] 90 7-08 Puffs ity of mcg/actuati 00:00: every 6 [place] as on inhaler 00 (six) Medical hours as Branch needed for Shortness of Breath. albuterol Yes [id number] 2{puff} Inhale 2 [facility] 90 7-08 Puffs ity of mcg/actuati 00:00: every 6 [place] as on inhaler 00 (six) Medical hours as Branch needed for Shortness of Breath. albuterol Yes [id number] 2{puff} Inhale 2 [facility] 90 7-08 Puffs ity of mcg/actuati 00:00: every 6 [place] as on inhaler 00 (six) Medical hours as Branch needed for Shortness of Breath. albuterol Yes [id number] 2{puff} Inhale 2 [facility] 90 7-08 Puffs ity of mcg/actuati 00:00: every 6 [place] as on inhaler 00 (six) Medical hours as Branch needed for Shortness of Breath. albuterol Yes [id number] 2{puff} Inhale 2 [facility] 90 7-08 Puffs ity of mcg/actuati 00:00: every 6 [place] as on inhaler 00 (six) Medical hours as Branch needed for Shortness of Breath. albuterol Yes [id number] 2{puff} Inhale 2 [facility] 90 7-08 Puffs ity of mcg/actuati 00:00: every 6 [place] as on inhaler 00 (six) Medical hours as Branch needed for Shortness of Breath. albuterol Yes [id number] 2{puff} Inhale 2 [facility] 90 7-08 Puffs ity of mcg/actuati 00:00: every 6 [place] as on inhaler 00 (six) Medical hours as Branch needed for Shortness of Breath. albuterol Yes [id number] 2{puff} Inhale 2 [facility] 90 7-08 Puffs ity of mcg/actuati 00:00: every 6 [place] as on inhaler 00 (six) Medical hours as Branch needed for Shortness of Breath. albuterol Yes [id number] 2{puff} Inhale 2 [facility] 90 7-08 Puffs ity of mcg/actuati 00:00: every 6 [place] as on inhaler 00 (six) Medical hours as Branch needed for Shortness of Breath. albuterol Yes [id number] 2{puff} Inhale 2 [facility] 90 7-08 Puffs ity of mcg/actuati 00:00: every 6 [place] as on inhaler 00 (six) Medical hours as Branch needed for Shortness of Breath. albuterol Yes [id number] 2{puff} Inhale 2 [facility] 90 7-08 Puffs ity of mcg/actuati 00:00: every 6 [place] as on inhaler 00 (six) Medical hours as Branch needed for Shortness of Breath. albuterol Yes [id number] 2{puff} Inhale 2 [facility] 90 7-08 Puffs ity of mcg/actuati 00:00: every 6 [place] as on inhaler 00 (six) Medical hours as Branch needed for Shortness of Breath. albuterol Yes [id number] 2{puff} Inhale 2 [facility] 90 7-08 Puffs ity of mcg/actuati 00:00: every 6 [place] as on inhaler 00 (six) Medical hours as Branch needed for Shortness of Breath. albuterol Yes [id number] 2{puff} Inhale 2 [facility] 90 7-08 Puffs ity of mcg/actuati 00:00: every 6 [place] as on inhaler 00 (six) Medical hours as Branch needed for Shortness of Breath. albuterol Yes [id number] 2{puff} Inhale 2 [facility] 90 7-08 Puffs ity of mcg/actuati 00:00: every 6 [place] as on inhaler 00 (six) Medical hours as Branch needed for Shortness of Breath. albuterol Yes [id number] 2{puff} Inhale 2 [facility] 90 7-08 Puffs ity of mcg/actuati 00:00: every 6 [place] as on inhaler 00 (six) Medical hours as Branch needed for Shortness of Breath. albuterol Yes [id number] 2{puff} Inhale 2 [facility] 90 7-08 Puffs ity of mcg/actuati 00:00: every 6 [place] as on inhaler 00 (six) Medical hours as Branch needed for Shortness of Breath. albuterol Yes [id number] 2{puff} Inhale 2 [facility] 90 7-08 Puffs ity of mcg/actuati 00:00: every 6 [place] as on inhaler 00 (six) Medical hours as Branch needed for Shortness of Breath. albuterol Yes [id number] 2{puff} Inhale 2 [facility] 90 7-08 Puffs ity of mcg/actuati 00:00: every 6 [place] as on inhaler 00 (six) Medical hours as Branch needed for Shortness of Breath. albuterol Yes [id number] 2{puff} Inhale 2 [facility] 90 7-08 Puffs ity of mcg/actuati 00:00: every 6 [place] as on inhaler 00 (six) Medical hours as Branch needed for Shortness of Breath. albuterol Yes [id number] 2{puff} Inhale 2 [facility] 90 7-08 Puffs ity of mcg/actuati 00:00: every 6 [place] as on inhaler 00 (six) Medical hours as Branch needed for Shortness of Breath. albuterol Yes [id number] 2{puff} Inhale 2 [facility] 90 7-08 Puffs ity of mcg/actuati 00:00: every 6 [place] as on inhaler 00 (six) Medical hours as Branch needed for Shortness of Breath. albuterol Yes [id number] 2{puff} Inhale 2 [facility] 90 7-08 Puffs ity of mcg/actuati 00:00: every 6 [place] as on inhaler 00 (six) Medical hours as Branch needed for Shortness of Breath. albuterol Yes [id number] 2{puff} Inhale 2 [facility] 90 7-08 Puffs ity of mcg/actuati 00:00: every 6 [place] as on inhaler 00 (six) Medical hours as Branch needed for Shortness of Breath. albuterol Yes [id number] 2{puff} Inhale 2 [facility] 90 7-08 Puffs ity of mcg/actuati 00:00: every 6 [place] as on inhaler 00 (six) Medical hours as Branch needed for Shortness of Breath. albuterol Yes [id number] 2{puff} Inhale 2 [facility] 90 7-08 Puffs ity of mcg/actuati 00:00: every 6 [place] as on inhaler 00 (six) Medical hours as Branch needed for Shortness of Breath. albuterol Yes [id number] 2{puff} Inhale 2 [facility] 90 7-08 Puffs ity of mcg/actuati 00:00: every 6 [place] as on inhaler 00 (six) Medical hours as Branch needed for Shortness of Breath. albuterol Yes [id number] 2{puff} Inhale 2 [facility] 90 7-08 Puffs ity of mcg/actuati 00:00: every 6 [place] as on inhaler 00 (six) Medical hours as Branch needed for Shortness of Breath. albuterol Yes [id number] 2{puff} Inhale 2 [facility] 90 7-08 Puffs ity of mcg/actuati 00:00: every 6 [place] as on inhaler 00 (six) Medical hours as Branch needed for Shortness of Breath. albuterol Yes [id number] 2{puff} Inhale 2 [facility] 90 7-08 Puffs ity of mcg/actuati 00:00: every 6 [place] as on inhaler 00 (six) Medical hours as Branch needed for Shortness of Breath. albuterol Yes [id number] 2{puff} Inhale 2 [facility] 90 7-08 Puffs ity of mcg/actuati 00:00: every 6 [place] as on inhaler 00 (six) Medical hours as Branch needed for Shortness of Breath. doxylamine- 2021- No [id number] Doxylamine [facility] pyridoxine, 02-07 10 ity of [...] (4 tablets) per day). doxylamine- 2021- No [id number] Doxylamine [facility] pyridoxine, 02-07 10 ity of [...] (4 tablets) per day). doxylamine- 2021- No [id number] Doxylamine [facility] pyridoxine, 02-07 10 ity of [...] (4 tablets) per day). doxylamine- 2021- No [id number] Doxylamine [facility] pyridoxine, 02-07 10 ity of [...] mg (4 tablets) per day). aspirin 81 2021- Yes [id number] 81mg Take 1 [facility] mg EC 7-07 tablet by ity of tablet 00:00: mouth [place] 00 daily. Medical Branch aspirin 81 2021-0 Yes [id number] 81mg Take 1 [facility] mg EC 7-07 tablet by ity of tablet 00:00: mouth [place] 00 daily. [facility] aspirin 81 2021-0 Yes [id number] 81mg Take 1 [facility] mg EC 7-07 tablet by ity of tablet 00:00: mouth [place] 00 daily. [facility] aspirin 81 2021-0 Yes [id number] 81mg Take 1 [facility] mg EC 7-07 tablet by ity of tablet 00:00: mouth [place] 00 daily. [facility] aspirin 81 2021-0 Yes [id number] 81mg Take 1 [facility]07 tablet by [facility] tablet 00:00: mouth [place] 00 daily. [facility] aspirin 81 2021-0 Yes [id number] 81mg Take 1 [facility] 7-07 tablet by [facility] tablet 00:00: mouth [place] 00 daily. [facility] aspirin 81 2021-0 Yes [id number] 81mg Take 1 [facility] 7-07 tablet by [facility] tablet 00:00: mouth [place] 00 daily. [facility] aspirin 81 2021-0 Yes [id number] 81mg Take 1 [facility] mg EC 7-07 tablet by [facility] tablet 00:00: mouth [place] 00 daily. [facility] aspirin 81 2021-0 Yes [id number] 81mg Take 1 [facility] EC 7-07 tablet by [facility] tablet 00:00: mouth [place] 00 daily. [facility] aspirin 81 2021-0 Yes [id number] 81mg Take 1 [facility] 7-07 tablet by [facility] tablet 00:00: mouth [place] 00 daily. [facility] aspirin 81 2021-0 Yes [id number] 81mg Take 1 [facility] EC 7-07 tablet by [facility] tablet 00:00: mouth [place] 00 daily. [facility] aspirin 81 2021-0 Yes [id number] 81mg Take 1 [facility] EC 7-07 tablet by [facility] tablet 00:00: mouth [place] 00 daily. [facility] aspirin 81 2021-0 Yes [id number] 81mg Take 1 [facility] EC 7-07 tablet by [facility] tablet 00:00: mouth [place] 00 daily. [facility] aspirin 81 2021-0 Yes [id number] 81mg Take 1 [facility] mg EC 7-07 tablet by [facility] tablet 00:00: mouth [place] 00 daily. [facility] aspirin 81 2021-0 Yes [id number] 81mg Take 1 [facility] mg EC 7-07 tablet by [facility] tablet 00:00: mouth [place] 00 daily. [facility] aspirin 81 2021-0 Yes [id number] 81mg Take 1 [facility] mg EC 7-07 tablet by [facility] tablet 00:00: mouth [place] 00 daily. [facility] aspirin 81 2021-0 Yes [id number] 81mg Take 1 [facility] EC 7-07 tablet by [facility] tablet 00:00: mouth [place] 00 daily. [facility] aspirin 81 2021-0 Yes [id number] 81mg Take 1 [facility] EC 7-07 tablet by [facility] tablet 00:00: mouth [place] 00 daily. [facility] aspirin 81 2021-0 Yes [id number] 81mg Take 1 [facility] 7-07 tablet by [facility] tablet 00:00: mouth [place] 00 daily. [facility] aspirin 81 2021-0 Yes [id number] 81mg Take 1 [facility] 7-07 tablet by [facility] tablet 00:00: mouth [place] 00 daily. [facility] aspirin 81 2021-0 Yes [id number] 81mg Take 1 [facility] 7-07 tablet by [facility] tablet 00:00: mouth [place] 00 daily. [facility] aspirin 81 2021-0 Yes [id number] 81mg Take 1 [facility] 7-07 tablet by [facility] tablet 00:00: mouth [place] 00 daily. [facility] aspirin 81 2021-0 Yes [id number] 81mg Take 1 [facility] EC 7-07 tablet by [facility] tablet 00:00: mouth [place] 00 daily. [facility] aspirin 81 2021-0 Yes [id number] 81mg Take 1 [facility] 7-07 tablet by [facility] tablet 00:00: mouth [place] 00 daily. [facility] aspirin 81 2021-0 Yes [id number] 81mg Take 1 [facility] EC 7-07 tablet by [facility] tablet 00:00: mouth [place] 00 daily. [facility] aspirin 81 2021-0 Yes [id number] 81mg Take 1 [facility] EC 7-07 tablet by [facility] tablet 00:00: mouth [place] 00 daily. [facility] aspirin 81 2021-0 Yes [id number] 81mg Take 1 [facility] EC 7-07 tablet by [facility] tablet 00:00: mouth [place] 00 daily. [facility] aspirin 81 2021-0 Yes [id number] 81mg Take 1 [facility] 7-07 tablet by [facility] tablet 00:00: mouth [place] 00 daily. [facility] aspirin 81 2021-0 Yes [id number] 81mg Take 1 [facility] EC 7-07 tablet by [facility] tablet 00:00: mouth [place] 00 daily. [facility] aspirin 81 2021-0 Yes [id number] 81mg Take 1 [facility] 7-07 tablet by [facility] tablet 00:00: mouth [place] 00 daily. [facility] aspirin 81 2021-0 Yes [id number] 81mg Take 1 [facility] 7-07 tablet by [facility] tablet 00:00: mouth [place] 00 daily. [facility] aspirin 81 2021-0 Yes [id number] 81mg Take 1 [facility] 7-07 tablet by [facility] tablet 00:00: mouth [place] 00 daily. [facility] aspirin 81 2021-0 Yes [id number] 81mg Take 1 [facility] 7-07 tablet by [facility] tablet 00:00: mouth [place] 00 daily. [facility] aspirin 81 2021-0 Yes [id number] 81mg Take 1 [facility] 7-07 tablet by [facility] tablet 00:00: mouth [place] 00 daily. [facility] aspirin 81 2021-0 Yes [id number] 81mg Take 1 [facility] 7-07 tablet by [facility] tablet 00:00: mouth [place] 00 daily. [facility] aspirin 81 2021-0 Yes [id number] 81mg Take 1 [facility] EC 7-07 tablet by [facility] tablet 00:00: mouth [place] 00 daily. [facility] aspirin 81 2021-0 Yes [id number] 81mg Take 1 [facility] EC 7-07 tablet by [facility] tablet 00:00: mouth [place] 00 daily. [facility] aspirin 81 2021-0 Yes [id number] 81mg Take 1 [facility] EC 7-07 tablet by [facility] tablet 00:00: mouth [place] 00 daily. [facility] aspirin 81 2021-0 Yes [id number] 81mg Take 1 [facility] EC 7-07 tablet by [facility] tablet 00:00: mouth [place] 00 daily. [facility] aspirin 81 2021-0 Yes [id number] 81mg Take 1 [facility] 7-07 tablet by [facility] tablet 00:00: mouth [place] 00 daily. [facility] aspirin 81 2021-0 Yes [id number] 81mg Take 1 [facility] 7-07 tablet by [facility] tablet 00:00: mouth [place] 00 daily. [facility] aspirin 81 2021-0 Yes [id number] 81mg Take 1 [facility] 7-07 tablet by [facility] tablet 00:00: mouth [place] 00 daily. [facility] aspirin 81 2021-0 Yes [id number] 81mg Take 1 [facility] 7-07 tablet by [facility] tablet 00:00: mouth [place] 00 daily. [facility] aspirin 81 2022-0 Yes [id number] 81mg Take 1 [facility] 7-07 tablet by [facility] tablet 00:00: mouth [place] 00 daily. [facility] aspirin 81 2021-0 Yes [id number] 81mg Take 1 [facility] 7-07 tablet by [facility] tablet 00:00: mouth [place] 00 daily. [facility] aspirin 81 2021-0 Yes [id number] 81mg Take 1 [facility] EC 7-07 tablet by [facility] tablet 00:00: mouth [place] 00 daily. [facility] aspirin 81 2021-0 Yes [id number] 81mg Take 1 [facility] EC 7-07 tablet by [facility] tablet 00:00: mouth [place] 00 daily. [facility] aspirin 81 2021-0 Yes [id number] 81mg Take 1 [facility] EC 7-07 tablet by [facility] tablet 00:00: mouth [place] 00 daily. [facility] aspirin 81 2021-0 Yes [id number] 81mg Take 1 [facility] EC 7-07 tablet by [facility] tablet 00:00: mouth [place] 00 daily. [facility] aspirin 81 0 Yes [id number] 81mg Take 1 [facility] EC 7-07 tablet by [facility] tablet 00:00: mouth [place] 00 daily. [facility] aspirin 81 0 Yes [id number] 81mg Take 1 [facility] EC 7-07 tablet by [facility] tablet 00:00: mouth [place] 00 daily. [facility] aspirin 81 2021-0 Yes [id number] 81mg Take 1 [facility] 7-07 tablet by [facility] tablet 00:00: mouth [place] 00 daily. [facility] aspirin 81 2021-0 Yes [id number] 81mg Take 1 [facility] 7-07 tablet by [facility] tablet 00:00: mouth [place] 00 daily. [facility] aspirin 81 2021-0 Yes [id number] 81mg Take 1 [facility] 7-07 tablet by [facility] tablet 00:00: mouth [place] 00 daily. [facility] aspirin 81 2021-0 Yes [id number] 81mg Take 1 [facility] 7-07 tablet by [facility] tablet 00:00: mouth [place] 00 daily. [facility] aspirin 81 2021-0 Yes [id number] 81mg Take 1 [facility] 7-07 tablet by [facility] tablet 00:00: mouth [place] 00 daily. [facility] aspirin 81 2021-0 Yes [id number] 81mg Take 1 [facility] EC 7-07 tablet by [facility] tablet 00:00: mouth [place] 00 daily. [facility] aspirin 81 2021-0 Yes [id number] 81mg Take 1 [facility] 7-07 tablet by [facility] tablet 00:00: mouth [place] 00 daily. [facility] aspirin 81 2021-0 Yes [id number] 81mg Take 1 [facility] EC 7-07 tablet by [facility] tablet 00:00: mouth [place] 00 daily. [facility] aspirin 81 2021-0 Yes [id number] 81mg Take 1 [facility] EC 7-07 tablet by [facility] tablet 00:00: mouth [place] 00 daily. [facility] aspirin 81 2021-0 Yes [id number] 81mg Take 1 [facility] 7-07 tablet by [facility] tablet 00:00: mouth [place] 00 daily. [facility] aspirin 81 2021-0 Yes [id number] 81mg Take 1 [facility] 7-07 tablet by [facility] tablet 00:00: mouth [place] 00 daily. [facility] aspirin 81 2021-0 Yes [id number] 81mg Take 1 [facility] 7-07 tablet by [facility] tablet 00:00: mouth [place] 00 daily. [facility] aspirin 81 0 Yes [id number] 81mg Take 1 [facility] 7-07 tablet by [facility] tablet 00:00: mouth [place] 00 daily. [facility] aspirin 81 2021-0 Yes [id number] 81mg Take 1 [facility] 7-07 tablet by [facility] tablet 00:00: mouth [place] 00 daily. [facility] aspirin 81 2021-0 Yes [id number] 81mg Take 1 [facility] EC 7-07 tablet by [facility] of tablet 00:00: mouth [place] 00 daily. [facility] aspirin 81 2021-0 Yes [id number] 81mg Take 1 [facility] EC 7-07 tablet by [facility] of tablet 00:00: mouth [place] 00 daily. [facility] aspirin 81 2021-0 Yes [id number] 81mg Take 1 [facility] EC 7-07 tablet by [facility] tablet 00:00: mouth [place] 00 daily. [facility] aspirin 81 2021-0 Yes [id number] 81mg Take 1 [facility] EC 7-07 tablet by [facility] of tablet 00:00: mouth [place] 00 daily. [facility] aspirin 81 2021-0 Yes [id number] 81mg Take 1 [facility] EC 7-07 tablet by [facility] tablet 00:00: mouth [place] 00 daily. [facility] aspirin 81 2021-0 Yes [id number] 81mg Take 1 [facility] EC 7-07 tablet by [facility] tablet 00:00: mouth [place] 00 daily. [facility] aspirin 81 2021-0 Yes [id number] 81mg Take 1 [facility] 7-07 tablet by [facility] tablet 00:00: mouth [place] 00 daily. [facility] aspirin 81 2021-0 Yes [id number] 81mg Take 1 [facility] 7-07 tablet by [facility] of tablet 00:00: mouth [place] 00 daily. [facility] aspirin 81 2021-0 Yes [id number] 81mg Take 1 [facility] 7-07 tablet by [facility] tablet 00:00: mouth [place] 00 daily. [facility] aspirin 81 2021-0 Yes [id number] 81mg Take 1 [facility] EC 7-07 tablet by [facility] of tablet 00:00: mouth [place] 00 daily. [facility] aspirin 81 2021-0 Yes [id number] 81mg Take 1 [facility] EC 7-07 tablet by [facility] of tablet 00:00: mouth [place] 00 daily. [facility] aspirin 81 2021-0 Yes [id number] 81mg Take 1 [facility] EC 7-07 tablet by [facility] of tablet 00:00: mouth [place] 00 daily. [facility] aspirin 81 2021-0 Yes [id number] 81mg Take 1 [facility] EC 7-07 tablet by [facility] of tablet 00:00: mouth [place] 00 daily. [facility] aspirin 81 2021-0 Yes [id number] 81mg Take 1 [facility] mg EC 7-07 tablet by [facility] of tablet 00:00: mouth [place] 00 daily. [facility] aspirin 81 2021-0 Yes [id number] 81mg Take 1 [facility] mg EC 7-07 tablet by [facility] of tablet 00:00: mouth [place] 00 daily. [facility] aspirin 81 2021-0 Yes [id number] 81mg Take 1 [facility] mg EC 7-07 tablet by [facility] of tablet 00:00: mouth [place] 00 daily. [facility] aspirin 81 2021-0 Yes [id number] 81mg Take 1 [facility] EC 7-07 tablet by [facility] of tablet 00:00: mouth [place] 00 daily. [facility] aspirin 81 2021-0 Yes [id number] 81mg Take 1 [facility] EC 7-07 tablet by [facility] of tablet 00:00: mouth [place] 00 daily. [facility] aspirin 81 2021-0 Yes [id number] 81mg Take 1 [facility] mg EC 7-07 tablet by [facility] of tablet 00:00: mouth [place] 00 daily. [facility] aspirin 81 2021-0 Yes [id number] 81mg Take 1 [facility] mg EC 7-07 tablet by [facility] of tablet 00:00: mouth [place] 00 daily. [facility] aspirin 81 2021-0 Yes [id number] 81mg Take 1 [facility] mg EC 7-07 tablet by [facility] of tablet 00:00: mouth [place] 00 daily. [facility] aspirin 81 2021-0 Yes [id number] 81mg Take 1 [facility] mg EC 7-07 tablet by [facility] of tablet 00:00: mouth [place] 00 daily. [facility] aspirin 81 2021-0 Yes [id number] 81mg Take 1 [facility] mg EC 7-07 tablet by [facility] of tablet 00:00: mouth [place] 00 daily. [facility] aspirin 81 2021-0 Yes [id number] 81mg Take 1 [facility] mg EC 7-07 tablet by [facility] of tablet 00:00: mouth [place] 00 daily. [facility] aspirin 81 2021-0 Yes [id number] 81mg Take 1 [facility] mg EC 7-07 tablet by [facility] of tablet 00:00: mouth [place] 00 daily. [facility] aspirin 81 2021-0 Yes [id number] 81mg Take 1 [facility] mg EC 7-07 tablet by [facility] of tablet 00:00: mouth [place] 00 daily. [facility] aspirin 81 2021-0 Yes [id number] 81mg Take 1 [facility] mg EC 7-07 tablet by [facility] of tablet 00:00: mouth [place] 00 daily. [facility] aspirin 81 2021-0 Yes [id number] 81mg Take 1 [facility] mg EC 7-07 tablet by [facility] of tablet 00:00: mouth [place] 00 daily. [facility] aspirin 81 2021-0 Yes [id number] 81mg Take 1 [facility] mg EC 7-07 tablet by [facility] of tablet 00:00: mouth [place] 00 daily. [facility] aspirin 81 2021-0 Yes [id number] 81mg Take 1 [facility] mg EC 7-07 tablet by [facility] of tablet 00:00: mouth [place] 00 daily. [facility] aspirin 81 2021-0 Yes [id number] 81mg Take 1 [facility] mg EC 7-07 tablet by [facility] of tablet 00:00: mouth [place] 00 daily. [facility] aspirin 81 0 Yes [id number] 81mg Take 1 [facility] mg EC 7-07 tablet by [facility] of tablet 00:00: mouth [place] 00 daily. [facility] aspirin 81 2021-0 Yes [id number] 81mg Take 1 [facility] mg EC 7-07 tablet by [facility] of tablet 00:00: mouth [place] 00 daily. [facility] aspirin 81 2021-0 Yes [id number] 81mg Take 1 [facility] mg EC 7-07 tablet by [facility] of tablet 00:00: mouth [place] 00 daily. [facility] aspirin 81 0 Yes [id number] 81mg Take 1 [facility] mg EC 7-07 tablet by [facility] of tablet 00:00: mouth [place] 00 daily. [facility] aspirin 81 0 Yes [id number] 81mg Take 1 [facility] mg EC 7-07 tablet by [facility] of tablet 00:00: mouth [place] 00 daily. [facility] aspirin 81 0 Yes [id number] 81mg Take 1 [facility] mg EC 7-07 tablet by [facility] of tablet 00:00: mouth [place] 00 daily. [facility] aspirin 81 0 Yes [id number] 81mg Take 1 [facility] mg EC 7-07 tablet by [facility] of tablet 00:00: mouth [place] 00 daily. [facility] aspirin 81 2021-0 2022- No [id number] 81mg Take 1 [facility] mg EC 7-07 02-10 tablet by [facility] of tablet 00:00: 00:00 mouth [place] 00 :00 daily. [facility] aspirin 81 2021-0 2022- No [id number] 81mg Take 1 [facility] mg EC 7-07 02-10 tablet by [facility] of tablet 00:00: 00:00 mouth [place] 00 :00 daily. [facility] acetaminoph 2021-0 2021- No Take by [facility] (TYLENOL 6-30 -30 mouth. ity o f ORAL) 08:26: 00:00 [place] 40 :00 [facility] acetaminoph 2021-0 2021- No Take by [facility] (TYLENOL 6-30 -30 mouth. ity o f ORAL) 08:26: 00:00 [place] 40 :00 [facility] Prenat Vit 2021-0 Yes [id number] 1{packe Take 1 [facility] Comb.10-Iro 6-27 t} Packet by ity of n-FA-DHA 00:00: mouth [place] (VITAFOL-OB 00 daily. Medica l +DHA) Branch 65-1-250 mg combo pack Prenat Vit 2022-0 Yes [id number] 1{packe Take 1 [facility] Comb.10-Iro 6-27 t} Packet by ity of n-FA-DHA 00:00: mouth [place] (VITAFOL-OB 00 daily. Med[facility] +DHA) Branch 65-1-250 mg combo pack Prenat Vit 2022-0 Yes [id number] 1{packe Take 1 [facility] Comb.10-Iro 6-27 t} Packet by ity of n-FA-DHA 00:00: mouth [place] (VITAFOL-OB 00 daily. [facility] +DHA) Branch 65-1-250 mg combo pack Prenat Vit 2022-0 Yes [id number] 1{packe Take 1 [facility] Comb.10-Iro 6-27 t} Packet by [facility]y of n-FA-DHA 00:00: mouth [place] (VITAFOL-OB 00 daily. [facility] +DHA) Branch 65-1-250 mg combo pack Prenat Vit 2022-0 Yes [id number] 1{packe Take 1 [facility] Comb.10-Iro 6-27 t} Packet by ity of n-FA-DHA 00:00: mouth [place] (VITAFOL-OB 00 daily. [facility] +DHA) Branch 65-1-250 mg combo pack Prenat Vit 2022-0 Yes [id number] 1{packe Take 1 [facility] Comb.10-Iro 6-27 t} Packet by [facility]y of n-FA-DHA 00:00: mouth [place] (VITAFOL-OB 00 daily. Med[facility] +DHA) Branch 65-1-250 mg combo pack Prenat Vit 2022-0 Yes [id number] 1{packe Take 1 [facility] Comb.10-Iro 6-27 t} Packet by ity of n-FA-DHA 00:00: mouth [place] (VITAFOL-OB 00 daily. [facility] +DHA) Branch 65-1-250 mg combo pack Prenat Vit 2022-0 Yes [id number] 1{packe Take 1 [facility] Comb.10-Iro 6-27 t} Packet by ity of n-FA-DHA 00:00: mouth [place] (VITAFOL-OB 00 daily. Med[facility] +DHA) Branch 65-1-250 mg combo pack Prenat Vit 2022-0 Yes [id number] 1{packe Take 1 [facility] Comb.10-Iro 6-27 t} Packet by ity of n-FA-DHA 00:00: mouth [place] (VITAFOL-OB 00 daily. Med[facility] +DHA) Branch 65-1-250 mg combo pack Prenat Vit 2022-0 Yes [id number] 1{packe Take 1 [facility] Comb.10-Iro 6-27 t} Packet by ity of n-FA-DHA 00:00: mouth [place] (VITAFOL-OB 00 daily. Med[facility] l +DHA) Branch 65-1-250 mg combo pack Prenat Vit 2022-0 Yes [id number] 1{packe Take 1 [facility] Comb.10-Iro 6-27 t} Packet by ity of n-FA-DHA 00:00: mouth [place] (VITAFOL-OB 00 daily. Med[facility] l +DHA) Branch 65-1-250 mg combo pack Prenat Vit 2022-0 Yes [id number] 1{packe Take 1 [facility] Comb.10-Iro 6-27 t} Packet by ity of n-FA-DHA 00:00: mouth [place] (VITAFOL-OB 00 daily. Med[facility] +DHA) Branch 65-1-250 mg combo pack Prenat Vit 2022-0 Yes [id number] 1{packe Take 1 [facility] Comb.10-Iro 6-27 t} Packet by ity of n-FA-DHA 00:00: mouth [place] (VITAFOL-OB 00 daily. Med[facility] +DHA) Branch 65-1-250 mg combo pack Prenat Vit 2022-0 Yes [id number] 1{packe Take 1 [facility] Comb.10-Iro 6-27 t} Packet by ity of n-FA-DHA 00:00: mouth [place] (VITAFOL-OB 00 daily. Med[facility] l +DHA) Branch 65-1-250 mg combo pack Prenat Vit 2022-0 Yes [id number] 1{packe Take 1 [facility] Comb.10-Iro 6-27 t} Packet by ity of n-FA-DHA 00:00: mouth [place] (VITAFOL-OB 00 daily. Med[facility] +DHA) Branch 65-1-250 mg combo pack Prenat Vit 2022-0 Yes [id number] 1{packe Take 1 [facility] Comb.10-Iro 6-27 t} Packet by ity of n-FA-DHA 00:00: mouth [place] (VITAFOL-OB 00 daily. Med[facility] l +DHA) Branch 65-1-250 mg combo pack Prenat Vit 2022-0 Yes [id number] 1{packe Take 1 [facility] Comb.10-Iro 6-27 t} Packet by ity of n-FA-DHA 00:00: mouth [place] (VITAFOL-OB 00 daily. Med[facility] +DHA) Branch 65-1-250 mg combo pack Prenat Vit 2022-0 Yes [id number] 1{packe Take 1 [facility] Comb.10-Iro 6-27 t} Packet by [facility]y of n-FA-DHA 00:00: mouth [place] (VITAFOL-OB 00 daily. Med[facility] l +DHA) Branch 65-1-250 mg combo pack Prenat Vit 2022-0 Yes [id number] 1{packe Take 1 [facility] Comb.10-Iro 6-27 t} Packet by [facility]y of n-FA-DHA 00:00: mouth [place] (VITAFOL-OB 00 daily. Med[facility] +DHA) Branch 65-1-250 mg combo pack Prenat Vit 2022-0 Yes [id number] 1{packe Take 1 [facility] Comb.10-Iro 6-27 t} Packet by [facility]y of n-FA-DHA 00:00: mouth [place] (VITAFOL-OB 00 daily. Med[facility] l +DHA) Branch 65-1-250 mg combo pack Prenat Vit 2022-0 Yes [id number] 1{packe Take 1 [facility] Comb.10-Iro 6-27 t} Packet by [facility]y of n-FA-DHA 00:00: mouth [place] (VITAFOL-OB 00 daily. Med[facility] l +DHA) Branch 65-1-250 mg combo pack Prenat Vit 2022-0 Yes [id number] 1{packe Take 1 [facility] Comb.10-Iro 6-27 t} Packet by ity of n-FA-DHA 00:00: mouth [place] (VITAFOL-OB 00 daily. Med[facility] l +DHA) Branch 65-1-250 mg combo pack Prenat Vit 2022-0 Yes [id number] 1{packe Take 1 [facility] Comb.10-Iro 6-27 t} Packet by [facility]y of n-FA-DHA 00:00: mouth [place] (VITAFOL-OB 00 daily. Med[facility] l +DHA) Branch 65-1-250 mg combo pack Prenat Vit 2022-0 Yes [id number] 1{packe Take 1 [facility] Comb.10-Iro 6-27 t} Packet by ity of n-FA-DHA 00:00: mouth [place] (VITAFOL-OB 00 daily. Medica l +DHA) Branch 65-1-250 mg combo pack Prenat Vit 2022-0 Yes [id number] 1{packe Take 1 [facility] Comb.10-Iro 6-27 t} Packet by ity of n-FA-DHA 00:00: mouth [place] (VITAFOL-OB 00 daily. Medica l +DHA) Branch 65-1-250 mg combo pack Prenat Vit 2022-0 Yes [id number] 1{packe Take 1 [facility] Comb.10-Iro 6-27 t} Packet by [facility]y of n-FA-DHA 00:00: mouth [place] (VITAFOL-OB 00 daily. Med[facility] l +DHA) Branch 65-1-250 mg combo pack Prenat Vit 2022-0 Yes [id number] 1{packe Take 1 [facility] Comb.10-Iro 6-27 t} Packet by ity of n-FA-DHA 00:00: mouth [place] (VITAFOL-OB 00 daily. Med[facility] l +DHA) Branch 65-1-250 mg combo pack Prenat Vit 2022-0 Yes [id number] 1{packe Take 1 [facility] Comb.10-Iro 6-27 t} Packet by [facility]y of n-FA-DHA 00:00: mouth [place] (VITAFOL-OB 00 daily. Med[facility] l +DHA) Branch 65-1-250 mg combo pack Prenat Vit 2022-0 Yes [id number] 1{packe Take 1 [facility] Comb.10-Iro 6-27 t} Packet by ity of n-FA-DHA 00:00: mouth [place] (VITAFOL-OB 00 daily. Med[facility] l +DHA) Branch 65-1-250 mg combo pack Prenat Vit 2022-0 Yes [id number] 1{packe Take 1 [facility] Comb.10-Iro 6-27 t} Packet by [facility]y of n-FA-DHA 00:00: mouth [place] (VITAFOL-OB 00 daily. Medica l +DHA) Branch 65-1-250 mg combo pack Prenat Vit 2022-0 Yes [id number] 1{packe Take 1 [facility] Comb.10-Iro 6-27 t} Packet by ity of n-FA-DHA 00:00: mouth [place] (VITAFOL-OB 00 daily. Medica l +DHA) Branch 65-1-250 mg combo pack Prenat Vit 2022-0 Yes [id number] 1{packe Take 1 [facility] Comb.10-Iro 6-27 t} Packet by ity of n-FA-DHA 00:00: mouth [place] (VITAFOL-OB 00 daily. Medica l +DHA) Branch 65-1-250 mg combo pack Prenat Vit 2022-0 Yes [id number] 1{packe Take 1 [facility] Comb.10-Iro 6-27 t} Packet by ity of n-FA-DHA 00:00: mouth [place] (VITAFOL-OB 00 daily. Med[facility] l +DHA) Branch 65-1-250 mg combo pack Prenat Vit 2022-0 Yes [id number] 1{packe Take 1 [facility] Comb.10-Iro 6-27 t} Packet by ity of n-FA-DHA 00:00: mouth [place] (VITAFOL-OB 00 daily. Medica l +DHA) Branch 65-1-250 mg combo pack Prenat Vit 2022-0 Yes [id number] 1{packe Take 1 [facility] Comb.10-Iro 6-27 t} Packet by ity of n-FA-DHA 00:00: mouth [place] (VITAFOL-OB 00 daily. Medica l +DHA) Branch 65-1-250 mg combo pack Prenat Vit 2022-0 Yes [id number] 1{packe Take 1 [facility] Comb.10-Iro 6-27 t} Packet by ity of n-FA-DHA 00:00: mouth [place] (VITAFOL-OB 00 daily. Medica l +DHA) Branch 65-1-250 mg combo pack Prenat Vit 2022-0 Yes [id number] 1{packe Take 1 [facility] Comb.10-Iro 6-27 t} Packet by ity of n-FA-DHA 00:00: mouth [place] (VITAFOL-OB 00 daily. Medica l +DHA) Branch 65-1-250 mg combo pack Prenat Vit 2022-0 Yes [id number] 1{packe Take 1 [facility] Comb.10-Iro 6-27 t} Packet by ity of n-FA-DHA 00:00: mouth [place] (VITAFOL-OB 00 daily. Medica l +DHA) Branch 65-1-250 mg combo pack Prenat Vit 2022-0 Yes [id number] 1{packe Take 1 [facility] Comb.10-Iro 6-27 t} Packet by ity of n-FA-DHA 00:00: mouth [place] (VITAFOL-OB 00 daily. Medica l +DHA) Branch 65-1-250 mg combo pack Prenat Vit 2022-0 Yes [id number] 1{packe Take 1 [facility] Comb.10-Iro 6-27 t} Packet by ity of n-FA-DHA 00:00: mouth [place] (VITAFOL-OB 00 daily. Medica l +DHA) Branch 65-1-250 mg combo pack Prenat Vit 2022-0 Yes [id number] 1{packe Take 1 [facility] Comb.10-Iro 6-27 t} Packet by ity of n-FA-DHA 00:00: mouth [place] (VITAFOL-OB 00 daily. Medica l +DHA) Branch 65-1-250 mg combo pack Prenat Vit 2022-0 Yes [id number] 1{packe Take 1 [facility] Comb.10-Iro 6-27 t} Packet by ity of n-FA-DHA 00:00: mouth [place] (VITAFOL-OB 00 daily. Medica l +DHA) Branch 65-1-250 mg combo pack Prenat Vit 2022-0 Yes [id number] 1{packe Take 1 [facility] Comb.10-Iro 6-27 t} Packet by ity of n-FA-DHA 00:00: mouth [place] (VITAFOL-OB 00 daily. Medica l +DHA) Branch 65-1-250 mg combo pack Prenat Vit 2022-0 Yes [id number] 1{packe Take 1 [facility] Comb.10-Iro 6-27 t} Packet by ity of n-FA-DHA 00:00: mouth [place] (VITAFOL-OB 00 daily. Medica l +DHA) Branch 65-1-250 mg combo pack Prenat Vit 2022-0 Yes [id number] 1{packe Take 1 [facility] Comb.10-Iro 6-27 t} Packet by ity of n-FA-DHA 00:00: mouth [place] (VITAFOL-OB 00 daily. Medica l +DHA) Branch 65-1-250 mg combo pack Prenat Vit 2022-0 Yes [id number] 1{packe Take 1 [facility] Comb.10-Iro 6-27 t} Packet by ity of n-FA-DHA 00:00: mouth [place] (VITAFOL-OB 00 daily. Medica l +DHA) Branch 65-1-250 mg combo pack Prenat Vit 2022-0 Yes [id number] 1{packe Take 1 [facility] Comb.10-Iro 6-27 t} Packet by ity of n-FA-DHA 00:00: mouth [place] (VITAFOL-OB 00 daily. Medica l +DHA) Branch 65-1-250 mg combo pack Prenat Vit 2022-0 Yes [id number] 1{packe Take 1 [facility] Comb.10-Iro 6-27 t} Packet by ity of n-FA-DHA 00:00: mouth [place] (VITAFOL-OB 00 daily. Medica l +DHA) Branch 65-1-250 mg combo pack Prenat Vit 2022-0 Yes [id number] 1{packe Take 1 [facility] Comb.10-Iro 6-27 t} Packet by ity of n-FA-DHA 00:00: mouth [place] (VITAFOL-OB 00 daily. Medica l +DHA) Branch 65-1-250 mg combo pack Prenat Vit 2022-0 Yes [id number] 1{packe Take 1 [facility] Comb.10-Iro 6-27 t} Packet by ity of n-FA-DHA 00:00: mouth [place] (VITAFOL-OB 00 daily. Medica l +DHA) Branch 65-1-250 mg combo pack Prenat Vit 2022-0 Yes [id number] 1{packe Take 1 [facility] Comb.10-Iro 6-27 t} Packet by ity of n-FA-DHA 00:00: mouth [place] (VITAFOL-OB 00 daily. Medica l +DHA) Branch 65-1-250 mg combo pack Prenat Vit 2022-0 Yes [id number] 1{packe Take 1 [facility] Comb.10-Iro 6-27 t} Packet by ity of n-FA-DHA 00:00: mouth [place] (VITAFOL-OB 00 daily. Medica l +DHA) Branch 65-1-250 mg combo pack Prenat Vit 2022-0 Yes [id number] 1{packe Take 1 [facility] Comb.10-Iro 6-27 t} Packet by ity of n-FA-DHA 00:00: mouth [place] (VITAFOL-OB 00 daily. Medica l +DHA) Branch 65-1-250 mg combo pack Prenat Vit 2022-0 Yes [id number] 1{packe Take 1 [facility] Comb.10-Iro 6-27 t} Packet by ity of n-FA-DHA 00:00: mouth [place] (VITAFOL-OB 00 daily. Medica l +DHA) Branch 65-1-250 mg combo pack Prenat Vit 2022-0 Yes [id number] 1{packe Take 1 [facility] Comb.10-Iro 6-27 t} Packet by ity of n-FA-DHA 00:00: mouth [place] (VITAFOL-OB 00 daily. Medica l +DHA) Branch 65-1-250 mg combo pack Prenat Vit 2022-0 Yes [id number] 1{packe Take 1 [facility] Comb.10-Iro 6-27 t} Packet by ity of n-FA-DHA 00:00: mouth [place] (VITAFOL-OB 00 daily. Medica l +DHA) Branch 65-1-250 mg combo pack Prenat Vit 2022-0 Yes [id number] 1{packe Take 1 [facility] Comb.10-Iro 6-27 t} Packet by ity of n-FA-DHA 00:00: mouth [place] (VITAFOL-OB 00 daily. Medica l +DHA) Branch 65-1-250 mg combo pack Prenat Vit 2022-0 Yes [id number] 1{packe Take 1 Univers Comb.10-Iro 6-27 t} Packet by ity of n-FA-DHA 00:00: mouth [place] (VITAFOL-OB 00 daily. Medica l +DHA) Branch 65-1-250 mg combo pack Prenat Vit 2022-0 Yes [id number] 1{packe Take 1 Univers Comb.10-Iro 6-27 t} Packet by ity of n-FA-DHA 00:00: mouth [place] (VITAFOL-OB 00 daily. Medica l +DHA) Branch 65-1-250 mg combo pack Prenat Vit 2022-0 Yes [id number] 1{packe Take 1 Univers Comb.10-Iro 6-27 t} Packet by ity of n-FA-DHA 00:00: mouth [place] (VITAFOL-OB 00 daily. Medica l +DHA) Branch 65-1-250 mg combo pack Prenat Vit 2022-0 Yes [id number] 1{packe Take 1 Univers Comb.10-Iro 6-27 t} Packet by ity of n-FA-DHA 00:00: mouth [place] (VITAFOL-OB 00 daily. Medica l +DHA) Branch 65-1-250 mg combo pack Prenat Vit 2022-0 Yes [id number] 1{packe Take 1 Univers Comb.10-Iro 6-27 t} Packet by ity of n-FA-DHA 00:00: mouth [place] (VITAFOL-OB 00 daily. Medica l +DHA) Branch 65-1-250 mg combo pack Prenat Vit 2022-0 Yes [id number] 1{packe Take 1 Univers Comb.10-Iro 6-27 t} Packet by ity of n-FA-DHA 00:00: mouth [place] (VITAFOL-OB 00 daily. Medica l +DHA) Branch 65-1-250 mg combo pack Prenat Vit 2022-0 Yes [id number] 1{packe Take 1 Univers Comb.10-Iro 6-27 t} Packet by ity of n-FA-DHA 00:00: mouth [place] (VITAFOL-OB 00 daily. Medica l +DHA) Branch 65-1-250 mg combo pack Prenat Vit 2022-0 Yes [id number] 1{packe Take 1 Univers Comb.10-Iro 6-27 t} Packet by ity of n-FA-DHA 00:00: mouth [place] (VITAFOL-OB 00 daily. Medica l +DHA) Branch 65-1-250 mg combo pack Prenat Vit 2022-0 Yes [id number] 1{packe Take 1 Univers Comb.10-Iro 6-27 t} Packet by ity of n-FA-DHA 00:00: mouth [place] (VITAFOL-OB 00 daily. Medica l +DHA) Branch 65-1-250 mg combo pack Prenat Vit 2022-0 Yes [id number] 1{packe Take 1 Univers Comb.10-Iro 6-27 t} Packet by ity of n-FA-DHA 00:00: mouth [place] (VITAFOL-OB 00 daily. Medica l +DHA) Branch 65-1-250 mg combo pack Prenat Vit 2022-0 Yes [id number] 1{packe Take 1 Univers Comb.10-Iro 6-27 t} Packet by ity of n-FA-DHA 00:00: mouth [place] (VITAFOL-OB 00 daily. Medica l +DHA) Branch 65-1-250 mg combo pack Prenat Vit 2022-0 Yes [id number] 1{packe Take 1 Univers Comb.10-Iro 6-27 t} Packet by ity of n-FA-DHA 00:00: mouth [place] (VITAFOL-OB 00 daily. Medica l +DHA) Branch 65-1-250 mg combo pack Prenat Vit 2022-0 Yes [id number] 1{packe Take 1 Univers Comb.10-Iro 6-27 t} Packet by ity of n-FA-DHA 00:00: mouth [place] (VITAFOL-OB 00 daily. Medica l +DHA) Branch 65-1-250 mg combo pack Prenat Vit 2022-0 Yes [id number] 1{packe Take 1 Univers Comb.10-Iro 6-27 t} Packet by ity of n-FA-DHA 00:00: mouth [place] (VITAFOL-OB 00 daily. Medica l +DHA) Branch 65-1-250 mg combo pack Prenat Vit 2022-0 Yes [id number] 1{packe Take 1 Univers Comb.10-Iro 6-27 t} Packet by ity of n-FA-DHA 00:00: mouth [place] (VITAFOL-OB 00 daily. Medica l +DHA) Branch 65-1-250 mg combo pack Prenat Vit 2022-0 Yes [id number] 1{packe Take 1 Univers Comb.10-Iro 6-27 t} Packet by ity of n-FA-DHA 00:00: mouth [place] (VITAFOL-OB 00 daily. Medica l +DHA) Branch 65-1-250 mg combo pack Prenat Vit 2022-0 Yes [id number] 1{packe Take 1 Univers Comb.10-Iro 6-27 t} Packet by ity of n-FA-DHA 00:00: mouth [place] (VITAFOL-OB 00 daily. Medica l +DHA) Branch 65-1-250 mg combo pack Prenat Vit 2022-0 Yes [id number] 1{packe Take 1 Univers Comb.10-Iro 6-27 t} Packet by ity of n-FA-DHA 00:00: mouth [place] (VITAFOL-OB 00 daily. Medica l +DHA) Branch 65-1-250 mg combo pack Prenat Vit 2022-0 Yes [id number] 1{packe Take 1 Univers Comb.10-Iro 6-27 t} Packet by ity of n-FA-DHA 00:00: mouth [place] (VITAFOL-OB 00 daily. Medica l +DHA) Branch 65-1-250 mg combo pack Prenat Vit 2022-0 Yes [id number] 1{packe Take 1 Univers Comb.10-Iro 6-27 t} Packet by ity of n-FA-DHA 00:00: mouth [place] (VITAFOL-OB 00 daily. Medica l +DHA) Branch 65-1-250 mg combo pack Prenat Vit 2022-0 Yes [id number] 1{packe Take 1 Univers Comb.10-Iro 6-27 t} Packet by ity of n-FA-DHA 00:00: mouth [place] (VITAFOL-OB 00 daily. Medica l +DHA) Branch 65-1-250 mg combo pack Prenat Vit 2022-0 Yes [id number] 1{packe Take 1 Univers Comb.10-Iro 6-27 t} Packet by ity of n-FA-DHA 00:00: mouth [place] (VITAFOL-OB 00 daily. Medica l +DHA) Branch 65-1-250 mg combo pack Prenat Vit 2022-0 Yes [id number] 1{packe Take 1 Univers Comb.10-Iro 6-27 t} Packet by ity of n-FA-DHA 00:00: mouth [place] (VITAFOL-OB 00 daily. Medica l +DHA) Branch 65-1-250 mg combo pack Prenat Vit 2022-0 Yes [id number] 1{packe Take 1 Univers Comb.10-Iro 6-27 t} Packet by ity of n-FA-DHA 00:00: mouth [place] (VITAFOL-OB 00 daily. Medica l +DHA) Branch 65-1-250 mg combo pack Prenat Vit 2022-0 Yes [id number] 1{packe Take 1 Univers Comb.10-Iro 6-27 t} Packet by ity of n-FA-DHA 00:00: mouth [place] (VITAFOL-OB 00 daily. Medica l +DHA) Branch 65-1-250 mg combo pack Prenat Vit 2022-0 Yes [id number] 1{packe Take 1 Univers Comb.10-Iro 6-27 t} Packet by ity of n-FA-DHA 00:00: mouth [place] (VITAFOL-OB 00 daily. Medica l +DHA) Branch 65-1-250 mg combo pack Prenat Vit 2022-0 Yes [id number] 1{packe Take 1 Univers Comb.10-Iro 6-27 t} Packet by ity of n-FA-DHA 00:00: mouth [place] (VITAFOL-OB 00 daily. Medica l +DHA) Branch 65-1-250 mg combo pack Prenat Vit 2022-0 Yes [id number] 1{packe Take 1 Univers Comb.10-Iro 6-27 t} Packet by ity of n-FA-DHA 00:00: mouth [place] (VITAFOL-OB 00 daily. Medica l +DHA) Branch 65-1-250 mg combo pack Prenat Vit 2022-0 Yes [id number] 1{packe Take 1 Univers Comb.10-Iro 6-27 t} Packet by ity of n-FA-DHA 00:00: mouth [place] (VITAFOL-OB 00 daily. Medica l +DHA) Branch 65-1-250 mg combo pack Prenat Vit 2022-0 Yes [id number] 1{packe Take 1 Univers Comb.10-Iro 6-27 t} Packet by ity of n-FA-DHA 00:00: mouth [place] (VITAFOL-OB 00 daily. Medica l +DHA) Branch 65-1-250 mg combo pack Prenat Vit 2022-0 Yes [id number] 1{packe Take 1 Univers Comb.10-Iro 6-27 t} Packet by ity of n-FA-DHA 00:00: mouth [place] (VITAFOL-OB 00 daily. Medica l +DHA) Branch 65-1-250 mg combo pack Prenat Vit 2022-0 Yes [id number] 1{packe Take 1 [facility] Comb.10-Iro 6-27 t} Packet by ity of n-FA-DHA 00:00: mouth [place] (VITAFOL-OB 00 daily. Medica l +DHA) Branch 65-1-250 mg combo pack Prenat Vit 2022-0 Yes [id number] 1{packe Take 1 Univers Comb.10-Iro 6-27 t} Packet by ity of n-FA-DHA 00:00: mouth [place] (VITAFOL-OB 00 daily. Medica l +DHA) Branch 65-1-250 mg combo pack Prenat Vit 2022-0 Yes [id number] 1{packe Take 1 Univers Comb.10-Iro 6-27 t} Packet by ity of n-FA-DHA 00:00: mouth [place] (VITAFOL-OB 00 daily. Medica l +DHA) Branch 65-1-250 mg combo pack Prenat Vit 2022-0 Yes [id number] 1{packe Take 1 [facility] Comb.10-Iro 6-27 t} Packet by ity of n-FA-DHA 00:00: mouth [place] (VITAFOL-OB 00 daily. Medica l +DHA) Branch 65-1-250 mg combo pack Prenat Vit 2022-0 Yes [id number] 1{packe Take 1 [facility] Comb.10-Iro 6-27 t} Packet by ity of n-FA-DHA 00:00: mouth [place] (VITAFOL-OB 00 daily. Medica l +DHA) Branch 65-1-250 mg combo pack Prenat Vit 2022-0 Yes [id number] 1{packe Take 1 [facility] Comb.10-Iro 6-27 t} Packet by ity of n-FA-DHA 00:00: mouth [place] (VITAFOL-OB 00 daily. Medica l +DHA) Branch 65-1-250 mg combo pack Prenat Vit 2022-0 Yes [id number] 1{packe Take 1 [facility] Comb.10-Iro 6-27 t} Packet by ity of n-FA-DHA 00:00: mouth [place] (VITAFOL-OB 00 daily. Medica l +DHA) Branch 65-1-250 mg combo pack Prenat Vit 2022-0 Yes [id number] 1{packe Take 1 [facility] Comb.10-Iro 6-27 t} Packet by ity of n-FA-DHA 00:00: mouth [place] (VITAFOL-OB 00 daily. Medica l +DHA) Branch 65-1-250 mg combo pack Prenat Vit 2022-0 Yes [id number] 1{packe Take 1 [facility] Comb.10-Iro 6-27 t} Packet by ity of n-FA-DHA 00:00: mouth [place] (VITAFOL-OB 00 daily. Medica l +DHA) Branch 65-1-250 mg combo pack Prenat Vit 2022-0 Yes [id number] 1{packe Take 1 [facility] Comb.10-Iro 6-27 t} Packet by ity of n-FA-DHA 00:00: mouth [place] (VITAFOL-OB 00 daily. Medica l +DHA) Branch 65-1-250 mg combo pack Prenat Vit 2022-0 Yes [id number] 1{packe Take 1 [facility] Comb.10-Iro 6-27 t} Packet by ity of n-FA-DHA 00:00: mouth [place] (VITAFOL-OB 00 daily. Medica l +DHA) Branch 65-1-250 mg combo pack Prenat Vit 2022-0 Yes [id number] 1{packe Take 1 [facility] Comb.10-Iro 6-27 t} Packet by ity of n-FA-DHA 00:00: mouth [place] (VITAFOL-OB 00 daily. Medica l +DHA) Branch 65-1-250 mg combo pack Prenat Vit 2022-0 Yes [id number] 1{packe Take 1 [facility] Comb.10-Iro 6-27 t} Packet by ity of n-FA-DHA 00:00: mouth [place] (VITAFOL-OB 00 daily. Medica l +DHA) Branch 65-1-250 mg combo pack Prenat Vit 2022-0 Yes [id number] 1{packe Take 1 [facility] Comb.10-Iro 6-27 t} Packet by ity of n-FA-DHA 00:00: mouth [place] (VITAFOL-OB 00 daily. Medica l +DHA) Branch 65-1-250 mg combo pack Prenat Vit 2022-0 Yes [id number] 1{packe Take 1 [facility] Comb.10-Iro 6-27 t} Packet by ity of n-FA-DHA 00:00: mouth [place] (VITAFOL-OB 00 daily. Medica l +DHA) Branch 65-1-250 mg combo pack Prenat Vit 2022-0 Yes [id number] 1{packe Take 1 [facility] Comb.10-Iro 6-27 t} Packet by ity of n-FA-DHA 00:00: mouth [place] (VITAFOL-OB 00 daily. Medica l +DHA) Branch 65-1-250 mg combo pack Prenat Vit 2022-0 Yes [id number] 1{packe Take 1 Univers Comb.10-Iro 6-27 t} Packet by ity of n-FA-DHA 00:00: mouth [place] (VITAFOL-OB 00 daily. Medica l +DHA) Branch 65-1-250 mg combo pack Prenat Vit 2022-0 2023- No [id number] 1{packe Take 1 Univers Comb.10-Iro 6-27 02-10 t} Packet by it y of n-FA-DHA 00:00: 00:00 mouth [place] (VITAFOL-OB 00 :00 daily. Medica l +DHA) Branch 65-1-250 mg combo pack Prenat Vit 2022- No [id number] 1{packe Take 1 Univers Comb.10-Iro 6 02-10 t} Packet by it y of n-FA-DHA 00:00: 00:00 mouth [place] (VITAFOL-OB 00 :00 daily. Medica l +DHA) Branch 65-1-250 mg combo pack bromphenira 2021- No [id number] 5mL Take 5 mL Univers mine-pseudo 3-28 -30 by mouth 4 i ty of ephedrine-D 00:00: 00:00 (four) [place] as M (BROMFED 00 :00 times Medical DM) 2-30-10 daily as Bran ch mg/5 mL needed for syrup Congestion /Allergies . bromphenira No [id number] 5mL Take 5 mL Univers mine-pseudo 3-28 06-30 by mouth 4 i ty of ephedrine-D 00:00: 00:00 (four) [place] M (BROMFED 00 :00 times Medical DM) 2-30-10 daily as Bran ch mg/5 mL needed for syrup Congestion /Allergies . albuterol 2021- No [id number] 2{puff} Inhale 2 Univers 90 2-26 06-30 Puffs ity of mcg/actuati 00:00: 00:00 every 6 [place] on inhaler 00 :00 (six) Medical hours as Branch needed for Wheezing or Shortness of Breath. cetirizine 2021- No [id number] 10mg Take 1 Univers 10 mg 2- 06-30 tablet by ity of tablet 00:00: 00:00 mouth [place] 00 :00 daily. Medical Branch fluticasone 2021- No [id number] 2{spray Use 2 Univers propionate 2-26 06-30 } Sprays in ity of 50 00:00: 00:00 each [place] mcg/actuati 00 :00 nostril Medic al on nasal daily. Branch spray albuterol 2021- No [id number] 2{puff} Inhale 2 Univers 90 2-26 06-30 Puffs ity of mcg/actuati 00:00: 00:00 every 6 [place] inhaler 00 :00 (six) Medical hours as Branch needed for Wheezing or Shortness of Breath. cetirizine 2021- No [id number] 10mg Take 1 Univers 10 mg 2 06-30 tablet by ity of tablet 00:00: 00:00 mouth [place] 00 :00 daily. Medical Branch fluticasone 2021- No [id number] 2{spray Use 2 Univers propionate 2-26 06-30 } Sprays in ity of 50 00:00: 00:00 each [place] mcg/actuati 00 :00 nostril Medic al on nasal daily. Branch spray fluticasone 2020-08- No [id number] 1{puff} Inhale 1 Univers propion-ina 1-22 06-30 Puff every i ty of meteroL 00:00: 00:00 12 [place] (ADVAIR 00 :00 (twelve) Medical DISKUS) hours. Branch 250-50 mcg/dose inhalation disk fluticasone 2020-08- No [id number] 1{puff} Inhale 1 Univers propion-ina 1-22 06-30 Puff every i ty of meteroL 00:00: 00:00 12 [place] (ADVAIR 00 :00 (twelve) Medical DISKUS) hours. Branch 250-50 mcg/dose inhalation disk albuterol 2020-08- No [id number] 2{puff} Inhale 2 Univers 90 0-06 06-30 Puffs ity of mcg/actuati 00:00: 00:00 every 6 [place] inhaler 00 :00 (six) Medical hours as Branch needed for Wheezing or Shortness of Breath. cetirizine 2020-08- No [id number] 10mg Take 1 Univers (ZYRTEC) 10 0-06 06-30 tablet by it y of mg tablet 00:00: 00:00 mouth [place] 00 :00 daily. Medical Branch fluticasone 2020-08- No [id number] 1{spray Use 1 Univers propionate 0-06 06-30 } [place] in ity of 50 00:00: 00:00 each [place] mcg/actuati 00 :00 nostril Medic al on nasal daily. Branch spray azelastine 2020-08- No [id number] 1{spray Use 1 Univers 137 mcg 0-06 06-30 } [place] in ity of (0.1 %) 00:00: 00:00 each [place] nasal spray 00 :00 nostril 2 Med ical (two) Branch times daily. Use in each nostril as directed albuterol 2020-08- No [id number] 2{puff} Inhale 2 Univers 90 0- 06-30 Puffs ity of mcg/actuati 00:00: 00:00 every 6 [place] inhaler 00 :00 (six) Medical hours as Branch needed for Wheezing or Shortness of Breath. cetirizine 2020-08- No [id number] 10mg Take 1 Univers (ZYRTEC) 10 0-30 tablet by it y of mg tablet 00:00: 00:00 mouth [place] 00 :00 daily. Medical Branch fluticasone 2020-08- No [id number] 1{spray Use 1 Univers propionate 0-30 } [place] in ity of 50 00:00: 00:00 each [place] mcg/actuati 00 :00 nostril Medic al on nasal daily. Branch spray azelastine 2020-08- No [id number] 1{spray Use 1 Univers 137 mcg 0-30 } [place] in ity of (0.1 %) 00:00: 00:00 each [place] nasal spray 00 :00 nostril 2 Med ical (two) Branch times daily. Use in each nostril as directed Immunizations Ordered Filled Immunization Date Status Comments [facility] e Immunization Name Name Influenza Virus 2022-05-02 [...] Universit y of Vaccine Quad IM, 00:00:00 [place] Me dical Preserv and ABX Branch Free 6 MO-64 YRS TDAP 2021-01-29 Completed University of 00:00:00 [facility] TDAP 2021-01-29 Completed University of 00:00:00 [facility] TDAP 2021-01-29 Completed University of 00:00:00 [facility] TDAP 2021-01-29 Completed University of 00:00:00 [facility] TDAP 2021-01-29 Completed University of 00:00:00 [facility] TDAP 2021-01-29 Completed University of 00:00:00 [facility] TDAP 2021-01-29 Completed University of 00:00:00 [facility] TDAP 2021-01-29 Completed University of 00:00:00 [facility] TDAP 2021-01-29 Completed University of 00:00:00 [facility] TDAP 2021-01-29 Completed University of 00:00:00 [facility] TDAP 2021-01-29 Completed University of 00:00:00 [facility] TDAP 2021-01-29 Completed University of 00:00:00 [facility] TDAP 2021-01-29 Completed University of 00:00:00 [facility] TDAP 2021-01-29 Completed University of 00:00:00 [facility] Branch TDAP 2021-01-29 Completed University of 00:00:00 [facility] Branch TDAP 2021-01-29 Completed University of 00:00:00 [facility] Branch TDAP 2021-01-29 Completed University of 00:00:00 [facility] TDAP 2021-01-29 Completed University of 00:00:00 [facility] TDAP 2021-01-29 Completed University of 00:00:00 [facility] TDAP 2021-01-29 Completed University of 00:00:00 [facility] TDAP 2021-01-29 Completed University of 00:00:00 [facility] TDAP 2021-01-29 Completed University of 00:00:00 [facility] TDAP 2021-01-29 Completed University of 00:00:00 [facility] TDAP 2021-01-29 Completed University of 00:00:00 [facility] TDAP 2021-01-29 Completed University of 00:00:00 [facility] TDAP 2021-01-29 Completed University of 00:00:00 [facility] TDAP 2021-01-29 Completed University of 00:00:00 [facility] TDAP 2021-01-29 Completed University of 00:00:00 [facility] TDAP 2021-01-29 Completed University of 00:00:00 [facility] TDAP 2021-01-29 Completed University of 00:00:00 [facility] TDAP 2021-01-29 Completed University of 00:00:00 [facility] TDAP 2021-01-29 Completed University of 00:00:00 [facility] TDAP 2021-01-29 Completed University of 00:00:00 [facility] TDAP 2021-01-29 Completed University of 00:00:00 [facility] Branch TDAP 2021-01-29 Completed University of 00:00:00 [facility] TDAP 2021-01-29 Completed University of 00:00:00 [facility] TDAP 2021-01-29 Completed University of 00:00:00 [facility] TDAP 2021-01-29 Completed University of 00:00:00 [facility] TDAP 2021-01-29 Completed University of 00:00:00 [facility] TDAP 2021-01-29 Completed University of 00:00:00 [facility] Branch TDAP 2021-01-29 Completed University of 00:00:00 [facility] TDAP 2021-01-29 Completed University of 00:00:00 [facility] Branch TDAP 2021-01-29 Completed University of 00:00:00 [facility] TDAP 2021-01-29 Completed University of 00:00:00 [facility] TDAP 2021-01-29 Completed University of 00:00:00 [facility] Branch TDAP 2021-01-29 Completed University of 00:00:00 [facility] TDAP 2021-01-29 Completed University of 00:00:00 [facility] TDAP 2021-01-29 Completed University of 00:00:00 [facility] TDAP 2021-01-29 Completed University of 00:00:00 [facility] TDAP 2021-01-29 Completed University of 00:00:00 [facility] TDAP 2021-01-29 Completed University of 00:00:00 [facility] TDAP 2021-01-29 Completed University of 00:00:00 [facility] TDAP 2021-01-29 Completed University of 00:00:00 [facility] TDAP 2021-01-29 Completed University of 00:00:00 [facility] TDAP 2021-01-29 Completed University of 00:00:00 [facility] TDAP 2021-01-29 Completed University of 00:00:00 [facility] TDAP 2021-01-29 Completed University of 00:00:00 [facility] TDAP 2021-01-29 Completed University of 00:00:00 [facility] TDAP 2021-01-29 Completed University of 00:00:00 [facility] TDAP 2021-01-29 Completed University of 00:00:00 [facility] TDAP 2021-01-29 Completed University of 00:00:00 [facility] TDAP 2021-01-29 Completed University of 00:00:00 [facility] TDAP 2021-01-29 Completed University of 00:00:00 [facility] TDAP 2021-01-29 Completed University of 00:00:00 [facility] TDAP 2021-01-29 Completed University of 00:00:00 [facility] TDAP 2021-01-29 Completed University of 00:00:00 [facility] Branch TDAP 2021-01-29 Completed University of 00:00:00 [facility] Branch TDAP 2021-01-29 Completed University of 00:00:00 [place] [facility] TDAP 2021-01-29 Completed University of 00:00:00 [place] [facility] TDAP 2021-01-29 Completed University of 00:00:00 [facility] Branch TDAP 2021-01-29 Completed University of 00:00:00 [facility] Branch TDAP 2021-01-29 Completed University of 00:00:00 [facility] Branch TDAP 2021-01-29 Completed University of 00:00:00 [facility] Branch TDAP 2021-01-29 Completed University of 00:00:00 [facility] Branch TDAP 2021-01-29 Completed University of 00:00:00 [facility] Branch TDAP 2021-01-29 Completed University of 00:00:00 [facility] TDAP 2021-01-29 Completed University of 00:00:00 [facility] TDAP 2021-01-29 Completed University of 00:00:00 [facility] TDAP 2021-01-29 Completed University of 00:00:00 [facility] TDAP 2021-01-29 Completed University of 00:00:00 [facility] TDAP 2021-01-29 Completed University of 00:00:00 [facility] TDAP 2021-01-29 Completed University of 00:00:00 [facility] TDAP 2021-01-29 Completed University of 00:00:00 [facility] TDAP 2021-01-29 Completed University of 00:00:00 [facility] Branch TDAP 2021-01-29 Completed University of 00:00:00 [facility] TDAP 2021-01-29 Completed University of 00:00:00 [facility] TDAP 2021-01-29 Completed University of 00:00:00 [facility] Branch TDAP 2021-01-29 Completed University of 00:00:00 [facility] Branch TDAP 2021-01-29 Completed University of 00:00:00 [facility] TDAP 2021-01-29 Completed University of 00:00:00 [facility] TDAP 2021-01-29 Completed University of 00:00:00 [facility] Branch TDAP 2021-01-29 Completed University of 00:00:00 [facility] TDAP 2021-01-29 Completed University of 00:00:00 [facility] TDAP 2021-01-29 Completed University of 00:00:00 [place] [facility] TDAP 2021-01-29 Completed University of 00:00:00 [place] [facility] TDAP 2021-01-29 Completed University of 00:00:00 [facility] TDAP 2021-01-29 Completed University of 00:00:00 [facility] TDAP 2021-01-29 Completed University of 00:00:00 [facility] TDAP 2021-01-29 Completed University of 00:00:00 [facility] TDAP 2021-01-29 Completed University of 00:00:00 [facility] TDAP 2021-01-29 Completed University of 00:00:00 [facility] TDAP 2021-01-29 Completed University of 00:00:00 [facility] TDAP 2021-01-29 Completed University of 00:00:00 [facility] TDAP 2021-01-29 Completed University of 00:00:00 [facility] TDAP 2021-01-29 Completed University of 00:00:00 [facility] TDAP 2021-01-29 Completed University of 00:00:00 [facility] TDAP 2021-01-29 Completed University of 00:00:00 [facility] Influenza Virus 2018-09-27 Completed Universit y of Vaccine Quad .5 mL 00:00:00 [place] [facility] IM 6+ MO Branch Influenza Virus 2018-09-27 Completed Universit y of Vaccine Quad .5 mL 00:00:00 [place] Medical IM 6+ MO Branch Influenza Virus 2018-09-27 Completed Universit y of Vaccine Quad .5 mL 00:00:00 [place] Medical IM 6+ MO Branch Influenza Virus 2018-09-27 Completed Universit y of Vaccine Quad .5 mL 00:00:00 [place] [facility] IM 6+ MO Branch Influenza Virus 2018-09-27 Completed Universit y of Vaccine Quad .5 mL 00:00:00 [place] [facility] IM 6+ MO Branch Influenza Virus 2018-09-27 Completed Universit y of Vaccine Quad .5 mL 00:00:00 [place] [facility] IM 6+ MO Branch Influenza Virus 2018-09-27 Completed Universit y of Vaccine Quad .5 mL 00:00:00 [place] [facility] IM 6+ MO Branch Influenza Virus [...] y of Vaccine Quad .5 mL 00:00:00 [place] Medical 6+ MO Branch Influenza Virus 2018-09-27 Completed Universit y of Vaccine Quad .5 mL 00:00:00 [place] [facility] IM 6+ MO Branch Influenza Virus 2018-09-27 Completed Universit y of Vaccine Quad .5 mL 00:00:00 [place] [facility] 6+ MO Branch Influenza Virus 2018-09-27 Completed Universit y [facility] .5 mL 00:00:00 [facility] Influenza Virus 2018-09-27 Completed [facility] 00:00:00 [facility] Influenza Virus 2018-09-27 Completed [facility] .5 mL 00[facility]00:00 [facility] Influenza Virus [...] y [facility] .5 mL 00:00:00 [facility] Influenza Virus 2018-09-27 Completed [facility] .5 mL 00:00:00 [facility] Influenza Virus 2018-09-27 Completed [facility] .5 mL 00:00:00 [facility] Influenza Virus 2018-09-27 Completed [facility] .5 mL 00:00:00 [facility] Influenza Virus 2018-09-27 Completed [facility] .5 mL 00:00:00 [facility] Influenza Virus [...] y [facility] .5 mL 00:00:00 [facility] Influenza Virus 2018-09-27 Completed [facility] .5 mL 00:00:00 [facility] Influenza Virus 2018-09-27 Completed [facility] .5 mL 00:00:00 [facility] Influenza Virus 2018-09-27 Completed [facility] .5 mL 00:00:00 [facility] Influenza Virus 2018-09-27 Completed [facility] .5 mL 00:00:00 [facility] Influenza Virus 2018-09-27 Completed [facility] .5 mL 00:00:00 [facility] Influenza Virus 2018-09-27 Completed [facility] .5 mL 00:00:00 [facility] Influenza Virus 2018-09-27 Completed [facility] .5 mL 00:00:00 [facility] Influenza Virus 2018-09-27 Completed [facility] .5 mL 00:00:00 [facility] Influenza Virus 2018-09-27 Completed [facility] .5 mL 00:00:00 [facility] Influenza Virus 2018-09-27 Completed [facility] .5 mL 00:00:00 [facility] Influenza Virus 2018-09-27 Completed [facility] .5 mL 00:00:00 [facility] Influenza Virus [...] y [facility] .5 mL 00:00:00 [facility] Influenza Virus 2018-09-27 Completed [facility] .5 mL 00:00:00 [facility] Influenza Virus 2018-09-27 Completed [facility] .5 mL 00:00:00 [facility] Influenza Virus 2018-09-27 Completed [facility] .5 mL 00:00:00 [facility] Influenza Virus 2018-09-27 Completed [facility] .5 mL 00:00:00 [facility] Influenza Virus 2018-09-27 Completed [facility] .5 mL 00:00:00 [facility] Influenza Virus 2018-09-27 Completed [facility] .5 mL 00:00:00 [facility] Influenza Virus 2018-09-27 Completed [facility] .5 mL 00:00:00 [facility] Influenza Virus 2018-09-27 Completed [facility] .5 mL 00:00:00 [facility] Influenza Virus 2018-09-27 Completed [facility] .5 mL 00:00:00 [facility] Influenza Virus 2018-09-27 Completed [facility] .5 mL 00:00:00 [facility] Influenza Virus 2018-09-27 Completed [facility] .5 mL 00:00:00 [facility] Influenza Virus [...] y [facility] .5 mL 00:00:00 [facility] Influenza Virus 2018-09-27 Completed [facility] .5 mL 00:00:00 [facility] Influenza Virus 2018-09-27 Completed [facility] .5 mL 00:00:00 [facility] Influenza Virus 2018-09-27 Completed [facility] .5 mL 00:00:00 [facility] Influenza Virus 2018-09-27 Completed [facility] .5 mL 00:00:00 [facility] Influenza Virus 2018-09-27 [...] y [facility] .5 mL 00:00:00 [facility] Influenza Virus 2018-09-27 Completed [facility] .5 mL 00:00:00 [facility] Influenza Virus 2018-09-27 Completed [facility] .5 mL 00:00:00 [facility] Influenza Virus 2018-09-27 Completed [facility] .5 mL 00:00:00 [facility] Influenza Virus 2018-09-27 Completed [facility] .5 mL 00:00:00 [facility] Influenza Virus 2018-09-27 Completed [facility] .5 mL 00:00:00 [facility] Influenza Virus 2018-09-27 Completed [facility] .5 mL 00:00:00 [facility] Influenza Virus [...] y [facility] .5 mL 00:00:00 [facility] Influenza Virus [...] y [facility] .5 mL 00:00:00 [facility] Influenza Virus 2018-09-27 Completed [facility] .5 mL 00:00:00 [facility] Influenza Virus 2018-09-27 Completed [facility] .5 mL 00:00:00 [facility] Influenza Virus 2018-09-27 Completed [facility] .5 mL 00:00:00 [facility] Influenza Virus 2018-09-27 Completed [facility] .5 mL 00:00:00 [facility] Influenza Virus 2018-09-27 Completed [facility] .5 mL 00:00:00 [facility] Influenza Virus 2018-09-27 Completed [facility] .5 mL 00:00:00 [facility] Influenza Virus 2018-09-27 Completed [facility] .5 mL 00:00:00 [facility] Influenza Virus 2016-10-20 Completed [facility] IM 3+ 00:00:00 [facility] Influenza Virus 2016-10-20 Completed [facility] IM 3+ 00:00:00 [facility] Influenza Virus 2016-10-20 Completed [facility] IM 3+ 00:00:00 [facility] Influenza Virus 2016-10-20 Completed [facility] IM 3+ 00:00:00 [facility] Influenza Virus 2016-10-20 Completed [facility] IM 3+ 00:00:00 [facility] Influenza Virus 2016-10-20 Completed [facility] IM 3+ 00:00:00 [facility] Influenza Virus 2016-10-20 Completed [facility] IM 3+ 00:00:00 [facility] Influenza Virus 2016-10-20 Completed [facility] IM 3+ 00:00:00 [facility] Influenza Virus 2016-10-20 Completed [facility] IM 3+ 00:00:00 [facility] Influenza Virus 2016-10-20 Completed [facility] IM 3+ 00:00:00 [facility] Influenza Virus 2016-10-20 Completed [facility] IM 3+ 00:00:00 [facility] Influenza Virus 2016-10-20 Completed [facility] IM 3+ 00:00:00 [facility] Influenza Virus 2016-10-20 Completed [facility] IM 3+ 00:00:00 [facility] Influenza Virus 2016-10-20 Completed [facility] IM 3+ 00:00:00 [facility] Influenza Virus 2016-10-20 Completed [facility] IM 3+ 00:00:00 [facility] Influenza Virus 2016-10-20 Completed [facility] IM 3+ 00:00:00 [facility] Influenza Virus 2016-10-20 Completed [facility] IM 3+ 00:00:00 [facility] Influenza Virus 2016-10-20 Completed [facility] IM 3+ 00:00:00 [facility] Influenza Virus 2016-10-20 Completed [facility] IM 3+ 00:00:00 [facility] Influenza Virus 2016-10-20 Completed [facility] IM 3+ 00:00:00 [facility] Influenza Virus 2016-10-20 Completed [facility] IM 3+ 00:00:00 [facility] Influenza Virus 2016-10-20 Completed [facility] IM 3+ 00:00:00 [facility] Influenza Virus 2016-10-20 Completed [facility] IM 3+ 00:00:00 [facility] Influenza Virus 2016-10-20 Completed [facility] IM 3+ 00:00:00 [facility] Influenza Virus 2016-10-20 Completed [facility] IM 3+ 00:00:00 [facility] Influenza Virus 2016-10-20 Completed [facility] IM 3+ 00:00:00 [facility] Influenza Virus 2016-10-20 Completed [facility] IM 3+ 00:00:00 [facility] Influenza Virus 2016-10-20 Completed [facility] IM 3+ 00:00:00 [facility] Influenza Virus 2016-10-20 Completed [facility] IM 3+ 00:00:00 [facility] Influenza Virus 2016-10-20 Completed [facility] IM 3+ 00:00:00 [facility] Influenza Virus 2016-10-20 Completed [facility] IM 3+ 00:00:00 [facility] Influenza Virus 2016-10-20 Completed [facility] IM 3+ 00:00:00 [facility] Influenza Virus 2016-10-20 Completed [facility] IM 3+ 00:00:00 [facility] Influenza Virus 2016-10-20 Completed [facility] IM 3+ 00:00:00 [facility] Influenza Virus 2016-10-20 Completed [facility] IM 3+ 00:00:00 [facility] Influenza Virus 2016-10-20 Completed [facility] IM 3+ 00:00:00 [facility] Influenza Virus 2016-10-20 Completed [facility] IM 3+ 00:00:00 [facility] Influenza Virus 2016-10-20 Completed [facility] IM 3+ 00:00:00 [facility] Influenza Virus 2016-10-20 Completed [facility] IM 3+ 00:00:00 [facility] Influenza Virus 2016-10-20 Completed [facility] IM 3+ 00:00:00 [facility] Influenza Virus 2016-10-20 Completed [facility] IM 3+ 00:00:00 [facility] Influenza Virus 2016-10-20 Completed [facility] IM 3+ 00:00:00 [facility] Influenza Virus 2016-10-20 Completed [facility] IM 3+ 00:00:00 [facility] Influenza Virus 2016-10-20 Completed [facility] IM 3+ 00:00:00 [facility] Influenza Virus 2016-10-20 Completed [facility] IM 3+ 00:00:00 [facility] Influenza Virus 2016-10-20 Completed [facility] IM 3+ 00:00:00 [facility] Influenza Virus 2016-10-20 Completed [facility] IM 3+ 00:00:00 [facility] Influenza Virus 2016-10-20 Completed [facility] IM 3+ 00:00:00 [facility] Influenza Virus 2016-10-20 Completed [facility] IM 3+ 00:00:00 [facility] Influenza Virus 2016-10-20 Completed [facility] IM 3+ 00:00:00 [facility] Influenza Virus 2016-10-20 Completed [facility] IM 3+ 00:00:00 [facility] Influenza Virus 2016-10-20 Completed [facility] IM 3+ 00:00:00 [facility] Influenza Virus 2016-10-20 Completed [facility] IM 3+ 00:00:00 [facility] Influenza Virus 2016-10-20 Completed [facility] IM 3+ 00:00:00 [facility] Influenza Virus 2016-10-20 Completed [facility] IM 3+ 00:00:00 [facility] Influenza Virus 2016-10-20 Completed [facility] IM 3+ 00:00:00 [facility] Influenza Virus 2016-10-20 Completed [facility] IM 3+ 00:00:00 [facility] Influenza Virus 2016-10-20 Completed [facility] IM 3+ 00:00:00 [facility] Influenza Virus 2016-10-20 Completed [facility] IM 3+ 00:00:00 [facility] Influenza Virus 2016-10-20 Completed [facility] IM 3+ 00:00:00 [facility] Influenza Virus 2016-10-20 Completed [facility] IM 3+ 00:00:00 [facility] Influenza Virus 2016-10-20 Completed [facility] IM 3+ 00:00:00 [facility] Influenza Virus 2016-10-20 Completed [facility] IM 3+ 00:00:00 [facility] Influenza Virus 2016-10-20 Completed [facility] IM 3+ 00:00:00 [facility] Influenza Virus 2016-10-20 Completed [facility] IM 3+ 00:00:00 [facility] Influenza Virus 2016-10-20 Completed [facility] IM 3+ 00:00:00 [facility] Influenza Virus 2016-10-20 Completed [facility] IM 3+ 00:00:00 [facility] Influenza Virus 2016-10-20 Completed [facility] IM 3+ 00:00:00 [facility] Influenza Virus 2016-10-20 Completed [facility] IM 3+ 00:00:00 [facility] Influenza Virus 2016-10-20 Completed [facility] IM 3+ 00:00:00 [facility] Influenza Virus 2016-10-20 Completed [facility] IM 3+ 00:00:00 [facility] Influenza Virus 2016-10-20 Completed [facility] IM 3+ 00:00:00 [facility] Influenza Virus 2016-10-20 Completed [facility] IM 3+ 00:00:00 [facility] Influenza Virus 2016-10-20 Completed [facility] IM 3+ 00:00:00 [facility] Influenza Virus 2016-10-20 Completed [facility] IM 3+ 00:00:00 [facility] Influenza Virus 2016-10-20 Completed [facility] IM 3+ 00:00:00 [facility] Influenza Virus 2016-10-20 Completed [facility] IM 3+ 00:00:00 [facility] Influenza Virus 2016-10-20 Completed [facility] IM 3+ 00:00:00 [facility] Influenza Virus 2016-10-20 Completed [facility] IM 3+ 00:00:00 [facility] Influenza Virus 2016-10-20 Completed [facility] IM 3+ 00:00:00 [facility] Influenza Virus 2016-10-20 Completed [facility] IM 3+ 00:00:00 [facility] Influenza Virus 2016-10-20 Completed [facility] IM 3+ 00:00:00 [facility] Influenza Virus 2016-10-20 Completed [facility] IM 3+ 00:00:00 [facility] Influenza Virus 2016-10-20 Completed [facility] IM 3+ 00:00:00 [facility] Influenza Virus 2016-10-20 Completed [facility] IM 3+ 00:00:00 [facility] Influenza Virus 2016-10-20 Completed [facility] IM 3+ 00:00:00 [facility] Influenza Virus 2016-10-20 Completed [facility] IM 3+ 00:00:00 [facility] Influenza Virus 2016-10-20 Completed [facility] IM 3+ 00:00:00 [facility] Influenza Virus 2016-10-20 Completed [facility] IM 3+ 00:00:00 [facility] Influenza Virus 2016-10-20 Completed [facility] IM 3+ 00:00:00 [facility] Influenza Virus 2016-10-20 Completed [facility] IM 3+ 00:00:00 [facility] Influenza Virus 2016-10-20 Completed [facility] IM 3+ 00:00:00 [facility] Influenza Virus 2016-10-20 Completed [facility] IM 3+ 00:00:00 [facility] Influenza Virus 2016-10-20 Completed [facility] IM 3+ 00:00:00 [facility] Influenza Virus 2016-10-20 Completed [facility] IM 3+ 00:00:00 [facility] Influenza Virus 2016-10-20 Completed [facility] IM 3+ 00:00:00 [facility] Influenza Virus 2016-10-20 Completed [facility] IM 3+ 00:00:00 [facility] Influenza Virus 2016-10-20 Completed [facility] IM 3+ 00:00:00 [facility] Influenza Virus 2016-10-20 Completed [facility] IM 3+ 00:00:00 [facility] Influenza Virus 2016-10-20 Completed [facility] IM 3+ 00:00:00 [facility] Influenza Virus 2016-10-20 Completed [facility] IM 3+ 00:00:00 [facility] Influenza Virus 2016-10-20 Completed [facility] IM 3+ 00:00:00 [facility] Influenza Virus 2016-10-20 Completed [facility] IM 3+ 00:00:00 [facility] Influenza Virus 2016-10-20 Completed [facility] IM 3+ 00:00:00 [facility] Influenza Virus 2016-10-20 Completed [facility] IM 3+ 00:00:00 [facility] Influenza Virus 2016-10-20 Completed [facility] IM 3+ 00:00:00 [facility] Influenza Virus 2016-10-20 Completed [facility] IM 3+ 00:00:00 [facility] TDAP 2015-01-29 Completed [facility] 00:00:00 [facility] TDAP 2015-01-29 Completed [facility] 00[facility]00:00 [facility] TDAP 2015-01-29 Completed [facility] 00[facility]00:00 [facility] TDAP 2015-01-29 Completed [facility] 00:00:00 [facility] TDAP 2015-01-29 Completed [facility] 00[facility]00:00 [facility] TDAP 2015-01-29 Completed [facility] 00[facility]00:00 [facility] TDAP 2015-01-29 Completed [facility] 00[facility]00:00 [facility] TDAP 2015-01-29 Completed [facility] 00[facility]00:00 [facility] TDAP 2015-01-29 Completed [facility] 00[facility]00:00 [facility] TDAP 2015-01-29 Completed [facility] 00[facility]00:00 [facility] TDAP 2015-01-29 Completed [facility] 00:00:00 [facility] TDAP 2015-01-29 Completed [facility] 00[facility]00:00 [facility] TDAP 2015-01-29 Completed [facility] 00[facility]00:00 [facility] TDAP 2015-01-29 Completed [facility] 00:00:00 [facility] TDAP 2015-01-29 Completed [facility] 00[facility]00:00 [facility] TDAP 2015-01-29 Completed [facility] 00:00:00 [facility] TDAP 2015-01-29 Completed [facility] 00[facility]00:00 [facility] TDAP 2015-01-29 Completed [facility] 00:00:00 [facility] TDAP 2015-01-29 Completed [facility] 00:00:00 [facility] TDAP 2015-01-29 Completed [facility] 00:00:00 [facility] TDAP 2015-01-29 Completed [facility] 00:00:00 [facility] TDAP 2015-01-29 Completed [facility] 00:00:00 [facility] TDAP 2015-01-29 Completed [facility] 00:00:00 [facility] TDAP 2015-01-29 Completed [facility] 00:00:00 [facility] TDAP 2015-01-29 Completed [facility] 00:00:00 [facility] TDAP 2015-01-29 Completed [facility] 00:00:00 [facility] TDAP 2015-01-29 Completed [facility] 00:00:00 [facility] TDAP 2015-01-29 Completed [facility] 00:00:00 [facility] TDAP 2015-01-29 Completed [facility] 00:00:00 [facility] TDAP 2015-01-29 Completed [facility] 00:00:00 [facility] TDAP 2015-01-29 Completed [facility] 00:00:00 [facility] TDAP 2015-01-29 Completed [facility] 00:00:00 [facility] TDAP 2015-01-29 Completed [facility] 00:00:00 [facility] TDAP 2015-01-29 Completed [facility] 00:00:00 [facility] TDAP 2015-01-29 Completed [facility] 00:00:00 [facility] TDAP 2015-01-29 Completed [facility] 00:00:00 [facility] TDAP 2015-01-29 Completed [facility] 00:00:00 [facility] TDAP 2015-01-29 Completed [facility] 00:00:00 [facility] TDAP 2015-01-29 Completed [facility] 00:00:00 [facility] TDAP 2015-01-29 Completed [facility] 00:00:00 [facility] TDAP 2015-01-29 Completed [facility] 00:00:00 [facility] TDAP 2015-01-29 Completed [facility] 00:00:00 [facility] TDAP 2015-01-29 Completed [facility] 00:00:00 [facility] TDAP 2015-01-29 Completed [facility] 00:00:00 [facility] TDAP 2015-01-29 Completed [facility] 00:00:00 [facility] TDAP 2015-01-29 Completed [facility] 00:00:00 [facility] TDAP 2015-01-29 Completed [facility] 00:00:00 [facility] TDAP 2015-01-29 Completed [facility] 00:00:00 [facility] TDAP 2015-01-29 Completed [facility] 00:00:00 [facility] TDAP 2015-01-29 Completed [facility] 00:00:00 [facility] TDAP 2015-01-29 Completed [facility] 00:00:00 [facility] TDAP 2015-01-29 Completed [facility] 00:00:00 [facility] TDAP 2015-01-29 Completed [facility] 00:00:00 [facility] TDAP 2015-01-29 Completed [facility] 00:00:00 [facility] TDAP 2015-01-29 Completed [facility] 00:00:00 [facility] TDAP 2015-01-29 Completed [facility] 00:00:00 [facility] TDAP 2015-01-29 Completed [facility] 00:00:00 [facility] TDAP 2015-01-29 Completed [facility] 00:00:00 [facility] TDAP 2015-01-29 Completed [facility] 00:00:00 [facility] TDAP 2015-01-29 Completed [facility] 00:00:00 [facility] TDAP 2015-01-29 Completed [facility] 00:00:00 [facility] TDAP 2015-01-29 Completed [facility] 00:00:00 [facility] TDAP 2015-01-29 Completed [facility] 00:00:00 [facility] TDAP 2015-01-29 Completed [facility] 00:00:00 [facility] TDAP 2015-01-29 Completed [facility] 00:00:00 [facility] TDAP 2015-01-29 Completed [facility] 00:00:00 [facility] TDAP 2015-01-29 Completed [facility] 00:00:00 [facility] TDAP 2015-01-29 Completed [facility] 00:00:00 [facility] TDAP 2015-01-29 Completed [facility] 00:00:00 [facility] TDAP 2015-01-29 Completed [facility] 00:00:00 [facility] TDAP 2015-01-29 Completed [facility] 00:00:00 [facility] TDAP 2015-01-29 Completed [facility] 00:00:00 [facility] TDAP 2015-01-29 Completed [facility] 00:00:00 [facility] TDAP 2015-01-29 Completed [facility] 00:00:00 [facility] TDAP 2015-01-29 Completed [facility] 00:00:00 [facility] TDAP 2015-01-29 Completed [facility] 00:00:00 [facility] TDAP 2015-01-29 Completed [facility] 00:00:00 [facility] TDAP 2015-01-29 Completed [facility] 00:00:00 [facility] TDAP 2015-01-29 Completed [facility] 00:00:00 [facility] TDAP 2015-01-29 Completed [facility] 00:00:00 [facility] TDAP 2015-01-29 Completed [facility] 00:00:00 [facility] TDAP 2015-01-29 Completed [facility] 00:00:00 [facility] TDAP 2015-01-29 Completed [facility] 00:00:00 [facility] TDAP 2015-01-29 Completed [facility] 00:00:00 [facility] TDAP 2015-01-29 Completed [facility] 00:00:00 [facility] TDAP 2015-01-29 Completed [facility] 00:00:00 [facility] TDAP 2015-01-29 Completed [facility] 00:00:00 [facility] TDAP 2015-01-29 Completed [facility] 00:00:00 [facility] TDAP 2015-01-29 Completed [facility] 00:00:00 [facility] TDAP 2015-01-29 Completed [facility] 00:00:00 [facility] TDAP 2015-01-29 Completed [facility] 00:00:00 [facility] TDAP 2015-01-29 Completed [facility] 00[facility]00:00 [facility] TDAP 2015-01-29 Completed [facility] 00:00:00 [facility] TDAP 2015-01-29 Completed [facility] 00:00:00 [facility] TDAP 2015-01-29 Completed [facility] 00:00:00 [facility] TDAP 2015-01-29 Completed [facility] 00:00:00 [facility] TDAP 2015-01-29 Completed [facility] 00:00:00 [facility] TDAP 2015-01-29 Completed [facility] 00:00:00 [facility] TDAP 2015-01-29 Completed [facility] 00[facility]00:00 [facility] TDAP 2015-01-29 Completed [facility] 00:00:00 [facility] TDAP 2015-01-29 Completed [facility] 00:00:00 [facility] TDAP 2015-01-29 Completed [facility] 00:00:00 [facility] TDAP 2015-01-29 Completed [facility] 00:00:00 [facility] TDAP 2015-01-29 Completed [facility] 00:00:00 [facility] TDAP 2015-01-29 Completed [facility] 00:00:00 [facility] TDAP 2015-01-29 Completed [facility] 00:00:00 [facility] TDAP 2015-01-29 Completed [facility] 00:00:00 [facility] HPV 2010-07-05 Completed [facility] of 00:00:00 [facility] Influenza Virus 2010-07-05 Completed Universit y of Vaccine - Whole 00:00:00 [facility] HPV 2010-07-05 Completed [facility] of 00:00:00 [facility] Influenza Virus 2010-07-05 Completed Universit y of Vaccine - Whole 00:00:00 [facility] HPV 2010-07-05 Completed [facility] of 00:00:00 [facility] Influenza Virus 2010-07-05 Completed Universit y of Vaccine - Whole 00:00:00 [facility] HPV 2010-07-05 Completed [facility] of 00:00:00 [facility] Influenza Virus 2010-07-05 Completed Universit y of Vaccine - Whole 00:00:00 [facility] HPV 2010-07-05 Completed [facility] of 00:00:00 [facility] Influenza Virus 2010-07-05 Completed Universit y of Vaccine - Whole 00:00:00 [facility] HPV 2010-07-05 Completed [facility] 00:00:00 [facility] Influenza Virus 2010-07-05 Completed Universit y of Vaccine - Whole 00:00:00 [facility] HPV 2010-07-05 Completed [facility] 00:00:00 [facility] Influenza Virus 2010-07-05 Completed Universit y of Vaccine - Whole 00:00:00 [facility] HPV 2010-07-05 Completed [facility] 00[facility]00:00 [facility] Influenza Virus 2010-07-05 Completed Universit y of Vaccine - Whole 00:00:00 [facility] HPV 2010-07-05 Completed [facility] 00:00:00 [facility] Influenza Virus 2010-07-05 Completed Universit y of Vaccine - Whole 00:00:00 [facility] HPV 2010-07-05 Completed [facility] of 00:00:00 [facility] Influenza Virus 2010-07-05 Completed Universit y of Vaccine - Whole 00:00:00 [facility] HPV 2010-07-05 Completed [facility] 00:00:00 [facility] Influenza Virus 2010-07-05 Completed Universit y of Vaccine - Whole 00:00:00 [facility] HPV 2010-07-05 Completed [facility] of 00:00:00 [facility] Influenza Virus 2010-07-05 Completed Universit y of Vaccine - Whole 00:00:00 [facility] HPV 2010-07-05 Completed [facility] 00:00:00 [facility] Influenza Virus 2010-07-05 Completed Universit y of Vaccine - Whole 00:00:00 [facility] HPV 2010-07-05 Completed [facility] 00:00:00 [facility] Influenza Virus 2010-07-05 Completed Universit y of Vaccine - Whole 00:00:00 [facility] HPV 2010-07-05 Completed [facility] of 00:00:00 [facility] Influenza Virus 2010-07-05 Completed Universit y of Vaccine - Whole 00:00:00 [facility] HPV 2010-07-05 Completed [facility] of 00:00:00 [facility] Influenza Virus 2010-07-05 Completed Universit y of Vaccine - Whole 00:00:00 [facility] HPV 2010-07-05 Completed [facility] of 00:00:00 [facility] Influenza Virus 2010-07-05 Completed Universit y of Vaccine - Whole 00:00:00 [facility] HPV 2010-07-05 Completed [facility] 00:00:00 [facility] Influenza Virus 2010-07-05 Completed Universit y of Vaccine - Whole 00:00:00 [facility] HPV 2010-07-05 Completed [facility] 00:00:00 [facility] Influenza Virus 2010-07-05 Completed Universit y of Vaccine - Whole 00:00:00 [facility] HPV 2010-07-05 Completed [facility] of 00:00:00 [facility] Influenza Virus 2010-07-05 Completed Universit y of Vaccine - Whole 00:00:00 [facility] HPV 2010-07-05 Completed [facility] 00:00:00 [facility] Influenza Virus 2010-07-05 Completed Universit y of Vaccine - Whole 00:00:00 [facility] HPV 2010-07-05 Completed [facility] 00:00:00 [facility] Influenza Virus 2010-07-05 Completed Universit y of Vaccine - Whole 00:00:00 [facility] ical Branch HPV 2010-07-05 Completed [facility] 00:00:00 [facility] Influenza Virus 2010-07-05 Completed Universit y of Vaccine - Whole 00:00:00 [facility] ical Branch HPV 2010-02-12 Completed [facility] 00:00:00 [facility] HPV 2010-02-12 Completed [facility] 00:00:00 [facility] HPV 2010-02-12 Completed [facility] 00:00:00 [facility] HPV 2010-02-12 Completed [facility] 00:00:00 [facility] HPV 2010-02-12 Completed [facility] 00:00:00 [facility] HPV 2010-02-12 Completed [facility] 00:00:00 [facility] HPV 2010-02-12 Completed [facility] 00:00:00 [facility] HPV 2010-02-12 Completed [facility] 00:00:00 [facility] HPV 2010-02-12 Completed [facility] 00:00:00 [facility] HPV 2010-02-12 Completed [facility] 00:00:00 [facility] HPV 2010-02-12 Completed [facility] 00:00:00 [facility] HPV 2010-02-12 Completed [facility] 00:00:00 [facility] HPV 2010-02-12 Completed [facility] 00:00:00 [facility] HPV 2010-02-12 Completed [facility] 00:00:00 [facility] HPV 2010-02-12 Completed [facility] 00:00:00 [facility] HPV 2010-02-12 Completed [facility] of [...] HPV 2009-12-14 Completed [facility] 00:00:00 [facility] HPV 2009-12-14 Completed [facility] 00:00:00 [facility] HPV 2009-12-14 Completed [facility] 00:00:00 [facility] HPV 2009-12-14 Completed [facility] 00:00:00 [facility] HPV 2009-12-14 Completed [facility] 00:00:00 [facility] HPV 2009-12-14 Completed [facility] 00:00:00 [facility] HPV 2009-12-14 Completed [facility] 00:00:00 [facility] HPV 2009-12-14 Completed [facility] 00:00:00 [facility] HPV 2009-12-14 Completed [facility] 00:00:00 [facility] HPV 2009-12-14 Completed [facility] 00:00:00 [facility] HPV 2009-12-14 Completed [facility] 00:00:00 [facility] HPV 2009-12-14 Completed [facility] 00:00:00 [facility] HPV 2009-12-14 Completed [facility] 00:00:00 [facility] HPV 2009-12-14 Completed [facility] 00:00:00 [facility] HPV 2009-12-14 Completed [facility] 00:00:00 [facility] HPV 2009-12-14 Completed [facility] 00:00:00 [facility] HPV 2009-12-14 Completed [facility] 00:00:00 [facility] HPV 2009-12-14 Completed [facility] 00:00:00 [facility] HPV 2009-12-14 Completed [facility] 00:00:00 [facility] HPV 2009-12-14 Completed [facility] 00:00:00 [facility] HPV 2009-12-14 Completed [facility] 00:00:00 [facility] HPV 2009-12-14 Completed [facility] 00:00:00 [facility] HPV 2009-12-14 Completed [facility] 00:00:00 [facility] Vital Signs Vital Name Observation Time Observation Value Comments Source Heart rate 2022-09-12 16:30:00 66 /min [facility] Body temperature 2022-09-12 16:30:00 [facility] 2022-09-12 16:30:00 17 /[facility] Systolic blood 2022-09-12 14:00:00 110 mm[Hg] Univer sity of pressure [facility] Diastolic blood 2022-09-12 14:00:00 62 mm[Hg] Unive rsity of pressure [facility] Oxygen saturation in 2022-09-12 12:00:00 99 /min University of Arterial blood by [facility] Body height 2022-09-11 11:55:00 162.6 cm [facility] Body weight 2022-09-11 11:55:00 91.264 kg [facility] BMI 2022-09-11 11:55:00 34.54 kg/m2 [facility] Systolic blood 2022-09-11 15:45:00 119 mm[Hg] Univer sity of pressure [facility] Diastolic blood 2022-09-11 15:45:00 54 mm[Hg] Unive rsity of pressure [facility] Heart rate 2022-09-11 15:45:00 89 /min [facility] [place] Body temperature 2022-09-11 15:45:00 36.5 Lien Univ ersity of [facility] Respiratory rate 2022-09-11 15:45:00 21 /min Univ ersity of [facility] Oxygen saturation in 2022-09-11 15:45:00 99 /min [facility] Arterial blood by [facility] Body height 2022-09-11 11:55:00 162.6 cm [facility] Body weight 2022-09-11 11:55:00 91.264 kg [facility] BMI 2022-09-11 11:55:00 34.54 kg/m2 [facility] Systolic blood 2022-09-05 20:00:00 122 mm[Hg] Univer sity of pressure [facility] Diastolic blood 2022-09-05 20:00:00 80 mm[Hg] Unive rsity of pressure [facility] Heart rate 2022-09-05 20:00:00 89 /min [facility] Body temperature 2022-09-05 20:00:00 36.56 Lien Univ ersity of [facility] Body weight 2022-09-05 20:00:00 91.264 kg [facility] BMI 2022-09-05 20:00:00 34.54 kg/m2 [facility] Systolic blood 2022-09-04 08:30:00 109 mm[Hg] Univer sity of pressure [facility] Diastolic blood 2022-09-04 08:30:00 58 mm[Hg] Unive rsity of pressure [facility] Heart rate 2022-09-04 08:30:00 78 /min [facility] Oxygen saturation in 2022-09-04 08:30:00 96 /min [facility] Arterial blood by [facility] Systolic blood 2022-08-29 17:05:00 128 mm[Hg] Univer sity of pressure [facility] Diastolic blood 2022-08-29 17:05:00 79 mm[Hg] Unive rsity of pressure [facility] Heart rate 2022-08-29 17:05:00 96 /min [facility] Body temperature 2022-08-29 17:05:00 36.89 Lien Univ ersity of [facility] Respiratory rate 2022-08-29 17:05:00 16 /min Univ ersity of [facility] Body height 2022-08-29 17:05:00 162.6 cm [facility] Body weight 2022-08-29 17:05:00 92.262 kg [facility] BMI 2022-08-29 17:05:00 34.91 kg/m2 [facility] Oxygen saturation in 2022-08-29 17:05:00 99 /min [facility] Arterial blood by [facility] Systolic blood 2022-08-22 00:31:00 118 mm[Hg] Univer sity of pressure [facility] Diastolic blood 2022-08-22 00:31:00 77 mm[Hg] Unive rsity of pressure [facility] Heart rate 2022-08-22 00:31:00 105 /min [facility] Body temperature 2022-08-22 00:31:00 36.67 Lien Univ ersity of [facility] Respiratory rate 2022-08-22 00:31:00 16 /min Univ ersity of [facility] Body height 2022-08-22 00:31:00 162.6 cm [facility] Body weight 2022-08-22 00:31:00 91.808 kg [facility] BMI 2022-08-22 00:31:00 34.74 kg/m2 [facility] Oxygen saturation in 2022-08-22 00:31:00 98 /min [facility] Arterial blood by [facility] rosa isela [facility]xim[facility] Systolic blood 2022-08-14 15:56:00 108 mm[Hg] Univer sity of pressure [facility] Diastolic blood 2022-08-14 15:56:00 73 mm[Hg] Unive rsity of pressure [facility] Heart rate 2022-08-14 15:56:00 84 /min [facility] Body temperature 2022-08-14 15:56:00 36.72 Lien Univ ersity of [facility] Body weight 2022-08-14 15:56:00 90.357 kg [facility] BMI 2022-08-14 15:56:00 34.19 kg/m2 [facility] Heart rate 2022-08-12 06:00:00 85 /min [facility] Oxygen saturation in 2022-08-12 06:00:00 98 /min [facility] Arterial blood by [facility] Systolic blood 2022-08-12 05:30:00 118 mm[Hg] Univer sity of pressure [facility] Diastolic blood 2022-08-12 05:30:00 81 mm[Hg] Unive rsity of pressure [facility] Body temperature 2022-08-12 02:00:00 36.83 Lien Univ ersity of [facility] Respiratory rate 2022-08-12 00:46:00 18 /min Univ ersity of [facility] Body weight 2022-08-12 00:46:00 90.493 kg [facility] BMI 2022-08-12 00:46:00 34.24 kg/m2 [facility] Systolic blood 2022-07-31 15:00:00 110 mm[Hg] Univer sity of pressure [facility] Diastolic blood 2022-07-31 15:00:00 75 mm[Hg] Unive rsity of pressure [facility] Heart rate 2022-07-31 15:00:00 89 /min [facility] Body temperature 2022-07-31 15:00:00 36.72 Lien Univ ersity of [facility] Respiratory rate 2022-07-31 15:00:00 18 /min Univ ersity of [facility] Body height 2022-07-31 15:00:00 162.6 cm [facility] Body weight 2022-07-31 15:00:00 90.629 kg [facility] BMI 2022-07-31 15:00:00 34.30 kg/m2 [facility] Systolic blood 2022-07-31 01:49:00 131 mm[Hg] Univer sity of pressure [facility] Diastolic blood 2022-07-31 01:49:00 74 mm[Hg] Unive rsity of pressure [facility] Heart rate 2022-07-31 01:49:00 98 /min [facility] Respiratory rate 2022-07-31 01:49:00 16 /min Univ ersity of [facility] Oxygen saturation in 2022-07-31 01:49:00 100 /min [facility]terial blood by [place] [facility] Body temperature 2022-07-30 23:24:00 36.72 Lien Univ ersity of [facility] Systolic blood 2022-07-30 08:06:57 124 mm[Hg] Univer sity of pressure [facility] Diastolic blood 2022-07-30 08:06:57 71 mm[Hg] Unive rsity of pressure [facility] Heart rate 2022-07-30 08:06:57 100 /min [facility] Respiratory rate 2022-07-30 08:06:57 18 /min Univ ersity of [facility] Oxygen saturation in 2022-07-30 08:06:57 98 /min [facility]terial blood by [place] [facility] Body temperature 2022-07-30 07:37:00 36.61 Lien Univ ersity of [facility] Body height 2022-07-30 07:37:00 162.6 cm [facility] Body weight 2022-07-30 07:37:00 87.091 kg [facility] BMI 2022-07-30 07:37:00 32.96 kg/m2 [facility] Systolic blood 2022-07-18 17:24:00 117 mm[Hg] Univer sity of pressure [facility] Diastolic blood 2022-07-18 17:24:00 85 mm[Hg] Unive rsity of pressure [facility] Heart rate 2022-07-18 17:24:00 100 /min [facility] Body temperature 2022-07-18 17:24:00 36.78 Lien Univ ersity of [facility] Respiratory rate 2022-07-18 17:24:00 16 /min Univ ersity of [facility] Body height 2022-07-18 17:24:00 162.6 cm [facility] Body weight 2022-07-18 17:24:00 89.721 kg [facility] BMI 2022-07-18 17:24:00 33.95 kg/m2 [facility] Oxygen saturation in 2022-07-18 17:24:00 100 /min [facility] Arterial blood by [facility] Pulse [facility]xim[facility] Branch Systolic blood 2022-07-18 14:49:00 118 mm[Hg] Univer sity of pressure [facility] [place] Diastolic blood 2022-07-18 14:49:00 79 mm[Hg] Unive rsity of pressure [facility] Heart rate 2022-07-18 14:49:00 88 /min [facility] Body temperature 2022-07-18 14:49:00 36.72 Lien Univ ersity of [facility] Body height 2022-07-18 14:49:00 162.6 cm [facility] Body weight 2022-07-18 14:49:00 89.903 kg [facility] BMI 2022-07-18 14:49:00 34.02 kg/m2 [facility] Systolic blood 2022-07-01 16:37:00 130 mm[Hg] Univer sity of pressure [facility] Diastolic blood 2022-07-01 16:37:00 86 mm[Hg] Unive rsity of pressure [facility] Heart rate 2022-07-01 16:37:00 89 /min [facility] Body temperature 2022-07-01 16:37:00 36.83 Lien Univ ers[facility] of [facility] Respiratory rate 2022-07-01 16:37:00 18 /min Univ ersity of [facility] Body height 2022-07-01 16:37:00 162.6 cm [facility] Body weight 2022-07-01 16:37:00 89.812 kg [facility] BMI 2022-07-01 16:37:00 33.99 kg/m2 [facility] Systolic blood 2022-06-20 15:29:00 112 mm[Hg] Univer sity of pressure [facility] Diastolic blood 2022-06-20 15:29:00 70 mm[Hg] Unive rsity of pressure [facility] Heart rate 2022-06-20 15:29:00 87 /min [facility] Body temperature 2022-06-20 15:29:00 36.83 Lien Univ ersity [facility] Respiratory rate 2022-06-20 15:29:00 16 /min Univ ersity of [facility] Body height 2022-06-20 15:29:00 162.6 cm [facility] Body weight 2022-06-20 15:29:00 88.86 kg [facility] BMI 2022-06-20 15:29:00 33.63 kg/m2 [facility] Oxygen saturation in 2022-06-20 15:29:00 96 /min [facility] Arterial blood by [email or web address] rosa isela [facility] Systolic blood 2022-05-23 13:46:00 128 mm[Hg] Univer sity of pressure [facility] Diastolic blood 2022-05-23 13:46:00 83 mm[Hg] Unive rsity of pressure [facility] Heart rate 2022-05-23 13:46:00 93 /min [facility] Body temperature 2022-05-23 13:46:00 36.89 Lien Univ ersity of [facility] Respiratory rate 2022-05-23 13:46:00 16 /min Univ ersity of [facility] Body height 2022-05-23 13:46:00 162.6 cm [facility] Body weight 2022-05-23 13:46:00 88.089 kg [facility] BMI 2022-05-23 13:46:00 33.33 kg/m2 [facility] Oxygen saturation in 2022-05-23 13:46:00 98 /min [facility] Arterial blood by [email or web address] rosa isela [facility] Systolic blood 2022-05-21 20:21:00 122 mm[Hg] Univer sity of pressure [facility] Diastolic blood 2022-05-21 20:21:00 80 mm[Hg] Unive rsity of pressure [facility] Body temperature 2022-05-21 20:21:00 36.83 Lien Univ ersity of [facility] Respiratory rate 2022-05-21 20:21:00 18 /min Univ ersity of [facility] Body height 2022-05-21 20:21:00 162.6 cm [facility] Body weight 2022-05-21 20:21:00 87.998 kg [facility] BMI 2022-05-21 20:21:00 33.30 kg/m2 [facility] Systolic blood 2022-05-16 14:24:00 113 mm[Hg] Univer sity of pressure [facility] Diastolic blood 2022-05-16 14:24:00 71 mm[Hg] Unive rsity of pressure [facility] Heart rate 2022-05-16 14:24:00 84 /min [facility] Body height 2022-05-16 14:24:00 162.6 cm [facility] Body weight 2022-05-16 14:24:00 90.266 kg [facility] BMI 2022-05-16 14:24:00 34.16 kg/m2 [facility] Oxygen saturation in 2022-05-16 14:24:00 98 /min [facility] Arterial blood by [facility] P[facility] oxim[facility] Branch Body weight 2022-05-16 13:20:00 90.266 kg [facility] BMI 2022-05-16 13:20:00 34.16 kg/m2 [facility] Systolic blood 2022-05-09 14:17:00 116 mm[Hg] Univer sity of pressure [facility] Diastolic blood 2022-05-09 14:17:00 80 mm[Hg] Unive rsity of pressure [facility] Heart rate 2022-05-09 14:17:00 79 /min [facility] Body temperature 2022-05-09 14:17:00 36.56 Lien Univ ersity of [facility] Respiratory rate 2022-05-09 14:17:00 18 /min Univ ersity [facility] Body height 2022-05-09 14:17:00 162.6 cm [facility] Body weight 2022-05-09 14:17:00 88.451 kg [facility] BMI 2022-05-09 14:17:00 33.47 kg/m2 [facility] Systolic blood 2022-05-02 19:37:00 120 mm[Hg] Univer sity of pressure [facility] Diastolic blood 2022-05-02 19:37:00 82 mm[Hg] Unive rsity of pressure [facility] Heart rate 2022-05-02 19:37:00 85 /min [facility] Body temperature 2022-05-02 19:37:00 36.67 Lien Univ [facility] Respiratory rate 2022-05-02 19:37:00 18 /min Univ ersity of [facility] Body height 2022-05-02 19:37:00 162.6 cm [facility] Body weight 2022-05-02 19:37:00 88.905 kg [facility] BMI 2022-05-02 19:37:00 33.64 kg/m2 [facility] Systolic blood 2022-04-25 14:49:00 116 mm[Hg] [facility]iver [facility] Diastolic blood 2022-04-25 14:49:00 76 mm[Hg] Unive [facility] Heart rate 2022-04-25 14:49:00 77 /min [facility] [place] [facility] Body temperature 2022-04-25 14:49:00 36.67 Lien Univ [facility] [place] [facility] Respiratory rate 2022-04-25 14:49:00 18 /min [facility] [place] [facility] Body weight 2022-04-25 14:49:00 88.27 kg [facility] [place] [facility] BMI 2022-04-25 14:49:00 33.39 kg/m2 [facility] [place] [facility] Systolic blood 2022-04-11 20:50:00 135 mm[Hg] [facility]iver [facility] Diastolic blood 2022-04-11 20:50:00 81 mm[Hg] Unive [facility] Heart rate 2022-04-11 20:50:00 84 /min [facility] [place] [facility] Oxygen saturation in 2022-04-11 20:50:00 99 /min University of Arterial blood by [facility] Pulse oximetry Branch Body height 2022-04-11 20:45:00 162.6 cm [facility] [place] [facility] Body weight 2022-04-11 20:45:00 86.637 kg [facility] [place] [facility] BMI 2022-04-11 20:45:00 32.77 kg/m2 [facility] [place] [facility] Body temperature 2022-04-11 20:18:00 37.22 Lien [facility] [place] [facility] Respiratory rate 2022-04-11 20:18:00 18 /min [facility] [place] [facility] Systolic blood 2022-04-11 19:39:00 116 mm[Hg] [facility] Diastolic blood 2022-04-11 19:39:00 75 mm[Hg] Unive [facility] Heart rate 2022-04-11 19:39:00 90 /min [facility] [place] [facility] Body temperature 2022-04-11 19:39:00 37.06 Lien [facility] [place] [facility] Respiratory rate 2022-04-11 19:39:00 18 /min [facility] [place] [facility] Body height 2022-04-11 19:39:00 162.6 cm [facility] [place] [facility] Body weight 2022-04-11 19:39:00 88.083 kg [facility] [place] [facility] BMI 2022-04-11 19:39:00 33.33 kg/m2 [facility] [place] [facility] Oxygen saturation in 2022-04-11 19:39:00 97 /min University of Arterial blood by [facility] Pulse oximetry Branch Systolic blood 2022-04-02 14:51:00 114 mm[Hg] [facility] Diastolic blood 2022-04-02 14:51:00 73 mm[Hg] Unive [facility] Heart rate 2022-04-02 14:51:00 82 /min [facility] [place] [facility] Body temperature 2022-04-02 14:51:00 36.78 Lien [facility] Respiratory rate 2022-04-02 14:51:00 18 /min [facility] ersity of [facility] Body height 2022-04-02 14:51:00 162.6 cm Universi ty of [facility] Body weight 2022-04-02 14:51:00 89.812 kg Universi ty of [facility] BMI 2022-04-02 14:51:00 33.99 kg/m2 Universi ty of [facility] Systolic blood 2022-01-27 13:51:00 128 mm[Hg] Univer sity of pressure [facility] Diastolic blood 2022-01-27 13:51:00 88 mm[Hg] Unive [facility] Heart rate 2022-01-27 13:51:00 77 /min Universi ty of [facility] Body temperature 2022-01-27 13:51:00 36.78 Lien [facility] Respiratory rate 2022-01-27 13:51:00 18 /min [facility] ersity [facility] Body height 2022-01-27 13:51:00 162.6 cm Universi ty of [facility] Body weight 2022-01-27 13:51:00 86.864 kg Universi ty [facility] BMI 2022-01-27 13:51:00 32.87 kg/m2 Universi ty [facility] Procedures Procedure Date / Time Performing Clinician Source Performed CBC WITH DIFF 2022-09-12 06:45:00 Rebekah Vaz [facility] CBC WITH DIFF 2022-09-12 06:45:00 Татьяна [facility] SECTION 2022-09-11 13:54:00 Rebekah Vaz [facility] SECTION 2022-09-11 13:54:00 [facility] WITH DIFF 2022-09-11 12:22:00 Татьяна [facility] CBC WITH DIFF 2022-09-11 12:22:00 Татьяна [facility] CONSENT/REFUSAL FOR 2022-09-11 11:37:43 Doctor Unassigned, [facility] DIAGNOSIS AND TREATMENT [facility] CBC WITH DIFF 2022-09-09 16:15:00 ТатьянаEmateo Mcmanus [facility] HB ABO GROUPING 2022-09-09 16:15:00 ТатьянаEmateo Mcmanus [facility] RHO (D) IMMUNE GLOBULIN 2022-09-09 16:15:00 ТатьянаRebekah Yonathan [facility] RHO (D) IMMUNE GLOBULIN 2022-09-09 16:15:00 Rebekah Vaz [facility] POCT URINALYSIS W/O 2022-09-05 00:00:00 Rebekah Vaz [facility] CBC WITH DIFF 2022-09-04 06:35:00 Rebekah Vaz [facility] ADC OR ROXANN ONLY - RPR 2022-09-04 06:35:00 Rebekah Vaz [facility] HIV 1/2 AG-AB WITH REFLEX 2022-09-04 06:35:00 Rebekah Vaz [facility] HB ABO GROUPING 2022-09-04 06:30:00 Rebekah Vaz [facility] NON-STRESS TEST 2022-08-29 18:16:56 Rebekah Vaz [facility] DSU PRE-OP 2022-08-29 06:01:00 Doctor Unassigned, [facility] [place] DME/SUPPLY JUSTIFICATION 2022-08-20 06:01:00 Doctor Unassigned, [facility] DME/SUPPLY JUSTIFICATION 2022-08-15 06:01:00 Doctor Unassigned, [facility] POCT URINALYSIS W/O 2022-08-14 00:00:00 Rebekah Vaz [facility] URINALYSIS 2022-08-12 02:16:00 Breann Mendez [facility] US BIOPHYSICAL 2022-07-31 01:18:40 Rebekah Vaz [facility] URINALYSIS 2022-07-31 00:37:00 Rebekah Vaz [facility] ADC CLC OR LCC ONLY - WET 2022-07-31 00:37:00 Rebekah Vaz Un [facility] PREP [facility] POCT URINALYSIS W/O 2022-07-31 00:00:00 Rebekah Vaz [facility] CONSENT/REFUSAL FOR 2022-07-30 07:26:21 Doctor Unassamerica, [facility] DIAGNOSIS AND TREATMENT [place] [facility] [place] EMERGENCY SERVICES 2022-07-30 06:01:00 Doctor Unassigned, [facility] AGREEMENTS AND [facility] AUTHORIZATIONS POCT MOLECULAR FLU 2022-07-18 17:36:00 Unknown, Attending [facility] POCT MOLECULAR STREP 2022-07-18 17:32:00 Unknown, Attending [facility] POCT URINALYSIS W/O 2022-07-18 00:00:00 Angelo Rodriguez [facility] US HEAD NECK 2022-07-03 16:58:42 Carolyn Amato [facility] URINE CULTURE 2022-07-01 17:12:00 [facility] & CHLAMYDIA AMPLIFIED 2022-07-01 17:12:00 Adum, Kassidy [facility] GALV ONLY - VAGINAL 2022-07-01 17:12:00 Adum, Kassidy Pan [facility] PATHOGENS BY NUCLEIC ACID [facility] [place] TESTING POCT URINALYSIS W/O 2022-07-01 00:00:00 Admarine, Kassidy Pan [facility] STERILIZATION CONSENT 2022-06-20 06:01:00 Doctor Unassigned, [facility] FORM [facility] POCT URINALYSIS W/O 2022-06-20 00:00:00 Rebekah Vaz [facility] [place] SECOND AND THIRD 2022-05-27 19:01:00 Rebekah Vaz [facility] TRIMESTER ULTRASOUND [facility] EXTERNAL PROVIDER RECORDS 2022-05-20 05:01:00 Doctor Evans, [facility] [facility] [place] SECOND AND THIRD 2022-05-12 19:14:00 Rebekah Vaz [facility] TRIMESTER ULTRASOUND [facility] URINE CULTURE 2022-05-02 21:31:00 Rebekah Vaz [facility] FLU VACC ([id number]), 6 2022-05-02 19:55:18 Rebekah Vaz [facility] MO-64 YRS, .5ML, IM, QUAD Medica l Branch (FLUCELVAX) POCT URINALYSIS W/O 2022-05-02 00:00:00 Rebekah Vaz [facility] EXTERNAL PROVIDER RECORDS 2022-04-24 05:01:00 Doctor Unajorge alberto, [facility] Name [facility] [place] MEDICATION CORRESPONDENCE 2022-04-15 05:01:00 Doctor Evans, [facility] [place] URINALYSIS 2022-04-11 21:14:00 Rebekah Vaz [facility] ADC CLC OR LCC ONLY - WET 2022-04-11 21:14:00 Rebekah Vaz [facility] CONSENT/REFUSAL FOR 2022-04-11 20:18:44 Doctor Evans, [facility] DIAGNOSIS AND TREATMENT [place] [facility] [place] AUTHORIZATION TO RELEASE 2022-04-02 05:01:00 Doctor Evans, [facility] PHI TO [facility] [place] POCT URINALYSIS W/O 2022-04-02 00:00:00 Rebekah Vaz [facility] [place] 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 CLINIC ULTRASOUND 2022-02-06 05:01:00 Doctor Evans [facility] [place] <14 WEEKS US 2022-01-27 15:40:51 Jamila Zaldivar [facility] URINE DRUG (IMMUNOASSAY) 2022-01-27 14:08:00 Jamila Zaldivar [facility] COMPREHENSIVE DRUG [facility] SCREEN URINE CULTURE 2022-01-27 14:08:00 Jamila Zaldivar [facility] GC & CHLAMYDIA AMPLIFIED 2022-01-27 14:08:00 Jamila Zaldivar [facility] TRICHOMONAS AMPLIFIED 2022-01-27 14:08:00 Jamila Zaldivar [facility] POCT TEST 2022-01-27 00:00:00 Jamila Zaldivari ty of [facility] POCT URINALYSIS W/O 2022-01-27 00:00:00 [facility] Plan of Care Planned Activity Planned Date Details Comments Source Encounters Start End Encounter Admission Attending Care Care Encounter Source Date/Time Date/Time Type Type Clinicians Facility Department ID 2022-08-12 Outpatient P [facility] CHRISTOPHER [id number] Univers 00:32:52 ity of [facility] 2022-04-11 Outpatient X [facility] CHRISTOPHER [id number] Univers 19:02:10 ity of [facility] 2021-06-03 Outpatient [facility] [id number] Univers 18:52:17 ity of [facility] 2021-06-03 Outpatient P [facility] CHRISTOPHER [id number] Univers 07:14:53 ity of [facility] 2021-06-03 Outpatient [facility] [id number] Univers 07:14:18 ity of [facility] 2021-06-03 Emergency [facility] [id number] Univers 04:49:13 ity of [facility] 2021-06-02 Emergency [facility] [id number] Univers 09:17:44 ity of [facility] 2022-09-11 2022-09-12 Inpatient N REBEKAH VAZ [facility] CHRISTOPHER [id number] Univers 05:42:00 13:45:00 ity of [facility] 2022-09-11 2022-09-12 Hospital Rebekah Vaz [facility] 1.2.840.114 [id number] Univers 05:42:00 13:45:00 Encounter Cam ROLANDO 350.1.13.10 ity [facility] 4.2.7.2.686 [facility] [id number] [facility] rosa isela 083 Branch 2022-09-11 2022-09-11 Surgery Rebekah Vaz [facility] 1.2.184.918 [id number] Univers 07:50:00 09:49:00 Cam ANGLEKENNETH 350.1.13.10 i ty of [place] 4.2.7.2.686 [facility] [id number] [facility] rosa isela 013 Branch 2022-09-11 2022-09-11 Orders Doctor SAMPSON 1.2.840.114 [id number] Univers 00:00:00 00:00:00 Only Unassigned, BAILEY 350.1.13.10 ity of [place] [facility] 4.2.7.2.[address] [facility] [id number] [facility] 009 Branch 2022-09-09 2022-09-09 Rn Bariatric Mehdi Hernandez Lab Main [facility] 1.2.8 40.114 [id number] Univers 10:15:00 10:30:00 Visit Rebekah Vaz 350.1.13.10 ity of [place] 4.2.7.2.686 [facility] [id number] Fl dical [address] 2022-09-09 2022-09-09 Outpatient R REBEKAH VAZ [facility] [id number] Univers 10:15:00 10:15:00 ity of [facility] 2022-09-05 2022-09-05 Outpatient R REBEKAH VAZ [facility] [id number] Univers 14:00:00 14:14:35 ity of [facility] 2022-09-05 2022-09-05 Routine Rebekah Vaz [facility] LAINEZ 1.2.840.114 [id number] Univers 14:00:00 14:14:35 Yonathan TAYLOR 350.1.13.10 i ty of Visit WOMEN'S 4.2.7.2.686 [facility] [id number] [facility] 134 Branch 2022-09-03 2022-09-04 Outpatient X ТАТЬЯНА LAUREL [facility] CHRISTOPHER [id number] Univers 23:22:00 02:50:00 ity of [facility] 2022-09-03 2022-09-04 Emergency Rebekah Vaz [facility] 1.2.840.114 [id number] Univers 23:22:00 02:50:00 Yonathan MARSHALL 350.1.13.10 i ty of [place] 4.2.7.2.686 [facility] [id number] [facility] 083 Branch 2022-09-03 2022-09-03 Rn Bariatric Rosalba, Margie [facility] 1.2 .840.114 [id number] Univers 09:45:00 10:15:00 Visit Shawn Levy 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 350.1.13.10 ity of Severo Mcclellan [facility] 4.2.7.2.686 [place] MATERNAL [id number] Med ical & CHILD [address] [place] [address] 2022-09-03 2022-09-03 Outpatient P SEVERO MCCLELLAN [facility] [id number] Univers 09:45:00 09:45:00 SEVERO MCCLELLAN ity of [facility] 2022-09-03 2022-09-03 Nurse ADRIÁN Wright 1.2.840.114 [id number] Univers 00:00:00 00:00:00 Triage Chedomitilaica Henri PERRYY 350.1.13.10 ity of HOSPITAL 4.2.7.2.686 Marty as [id number] [facility] [address] [place] 2022-08-29 2022-08-29 Outpatient R REBEKAH VAZ [facility] [id number] Univers 11:00:00 12:14:43 ity of [facility] 2022-08-29 2022-08-29 Routine Rebekah Vaz [facility] 1.2.840.114 [id number] Univers 11:00:00 12:14:43 Cam CLAUDIA 350.1.13.10 i ty of [place] [id number] [address] 2022-08-29 2022-08-29 Orders Doctor ADRIÁN 1.2.840.114 [id number] Univers 00:00:00 00:00:00 Only Unassigned, BAILEY 350.1.13.10 ity of [place] [facility] 4.2.7.2.686 Marty as [id number] [facility] [address] [place] 2022-08-27 2022-08-27 Telephone Rebekah Vaz NJANTONELLA 1.2.840.114 [id number] Univers 00:00:00 00:00:00 Yonathan MARSHALL 350.1.13.10 i ty of [facility] 4.2.7.2.[place] [id number] Fl dical [address] 2022-08-27 2022-08-27 Telephone Rebekah Vaz NJANTONELLA 1.2.840.114 [id number] Univers 00:00:00 00:00:00 Yonathan MARSHALL 350.1.13.10 i ty of [place] [id number] [address] 2022-08-23 2022-08-23 Nurse ADRIÁN Norton 1.2.840.114 [id number] Univers 00:00:00 00:00:00 Triage Valarie BAILEY 350.1.13.10 ity of [facility] 4.2.7.2.686 Marty as [id number] [address] 2022-08-22 2022-08-22 Letter ADRIÁN Wills 1.2.840.114 [id number] Univers 00:00:00 00:00:00 (Out) Trinity AVALOS 350.1.13.10 it y of [facility] 4.2.7.2.686 Marty as [id number] [address] 2022-08-21 2022-08-21 Outpatient R LELA [facility] [id number] Univers 18:40:00 19:09:45 RANNINI ity [facility] 2022-08-21 2022-08-21 Urgent Cecelia Vogel [facility] 1.2.840.114 [id number] Univers 18:40:00 19:09:45 Care Unknown, [facility] HEALTH 350.1.13.10 ity of [place] 4.2.7.2.686 Marty as EMMETT?BLEA [id number] [address] MEDICAL OFFICE [facility] 2022-08-21 2022-08-21 Letter Gracy [facility] 1.2.016.015 [id number] Univers 00:00:00 00:00:00 (Out) [facility] 350.1.13.10 it y of Urgent Care [place] 4.2.7.2.686 [place] EMMETT?BLEA [id number] [address] MEDICAL OFFICE [facility] 2022-08-20 2022-08-20 Telephone Rebekah Vaz [facility] 1.2.840.114 [id number] Univers 00:00:00 00:00:00 Yonathan TAYLOR 350.1.13.10 it y of [place] [id number] [address] 2022-08-20 2022-08-20 Orders Doctor ADRIÁN 1.2.840.114 [id number] Univers 00:00:00 00:00:00 Only Unassigned, BAILEY 350.1.13.10 ity of [place] [facility] 4.2.7.2.686 Marty as [id number] [facility] [address] [place] 2022-08-15 2022-08-15 Outpatient R DEE [facility] [id number] Univers 11:00:00 11:00:00 ROD ity [facility] 2022-08-15 2022-08-15 Orders Doctor SAMPSON 1.2.840.114 [id number] Univers 00:00:00 00:00:00 Only Unassigned, BAILEY 350.1.13.10 ity [facility] 4.2.7.2.686 [place] as [id number] [address] 2022-08-14 2022-08-14 Outpatient R REBEKAH VAZ [facility] [id number] Univers 09:45:00 10:43:25 ity of [facility] 2022-08-14 2022-08-14 Routine Татьяна Rebekah [facility] 1.2.965.655 [id number] Univers 09:45:00 10:43:25 Cam ROLANDO 350.1.13.10 ity of [place] [id number] [address] 2022-08-11 2022-08-12 Outpatient P AMNA [facility] CHRISTOPHER [id number] Univers 18:26:00 00:00:00 SUSANNA ity [facility] 2022-08-11 2022-08-12 Hospital Shawn Levy 1.2.840.1 [id number] Univers 18:26:00 00:00:00 Encounter Susanna Woo 350. 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 350.1.13.10 ity of REGIONAL 4.2.7.2.686 Marty as MATERNAL [id number] [facility] ical & CHILD [address] [facility] 2022-08-06 2022-08-06 Outpatient P DOMINIC [facility] [id number] Univers 09:30:00 09:30:00 SHAWN ity of [facility] 2022-07-31 2022-07-31 Rn Bariatric 2, Adc Lab [facility] 1.2.840.114 [id number] Univers 09:45:00 10:00:00 Visit Rebekah Vaz [place] 350.1.13.10 ity [facility] [place].2.7.2.[place] [id number] Fl dical NAL 353 [facility] 2022-07-31 2022-07-31 Outpatient R REBEKAH VAZ [facility] [id number] Univers 09:00:00 09:29:39 ity of [facility] 2022-07-31 2022-07-31 Routine Rebekah Vaz [facility] 1.2.408.102 [id number] Univers 09:00:00 09:29:39 Yonathan [place] 350.1.13.10 ity of [place] [id number] Me dical NAL 134 [facility] 2022-07-30 2022-07-30 Outpatient P REBEKAH VAZ [facility] CHRISTOPHER [id number] Univers 16:50:00 19:59:00 ity of [facility] 2022-07-30 2022-07-30 Hospital Rebekah Vaz [facility] 1.2.840.114 [id number] Univers 16:50:00 19:59:00 Encounter Yonathan MARSHALL 350.1.13.10 ity of [facility] 4.2.7.2.[place] [id number] [place] [address] [place] 2022-07-30 2022-07-30 Emergency X SHELBY, [facility] ERT [id number] Univers 01:40:00 02:13:00 GREGORYGUERRERO it y of [facility] 2022-07-30 2022-07-30 Emergency [facility] 1.2.150.525 [id number] Univers 01:40:00 02:13:00 Gregoryguerrero ROLANDO 350.1.13.10 ity of [facility] 4.2.7.2.[place] [id number] [address] 2022-07-30 2022-07-30 Telephone Rebekah Vaz [facility] 1.2.840.114 [id number] Univers 00:00:00 00:00:00 Yonathan MARSHALL 350.1.13.10 i ty of [facility] 4.2.7.2.[place] [id number] Fl dical [address] 2022-07-24 2022-07-24 Telephone Rebekah Vaz [facility] 1.2.840.114 [id number] Univers 00:00:00 00:00:00 Yonathan TAYLOR 350.1.13.10 it y of [place] [id number] [address] 2022-07-22 2022-07-22 Telephone Phu NJANTONELLA LAINEZ 1.2.840.11 [id number] Univers 00:00:00 00:00:00 Angelo TAYLOR 350.1.13.10 it y of [place] [id number] [address] 2022-07-18 2022-07-18 Urgent Vernon Gonzalez [facility] 1.2.840.114 [id number] Univers 11:00:00 11:20:00 Care Unknown, Attending HEALTH 350.1.13.10 ity of [facility] 4.2.7.2.686 Marty as EMMETT?BLEA [id number] Fl dical [address] MEDICAL OFFICE [facility] 2022-07-18 2022-07-18 [facility] 1.2.840.114 [id number] Univers 10:00:00 10:00:00 Angelo TAYLOR 350.1.13.10 i ty of Visit [place] [id number] [address] 2022-07-18 2022-07-18 Outpatient R GENTRYMANI ANGELO [facility] [id number] Univers 10:00:00 09:09:37 TRISHERLYANGELO SINGLETON [facility] 2022-07-18 2022-07-18 Letter Vernon Gonzalez [facility] 1.2.840.114 [id number] Univers 00:00:00 00:00:00 (Out) C HEALTH 350.1.13.10 it y [facility] 4.2.7.2.686 Marty as EMMETT?BLEA [id number] [address] OFFICE [facility] 2022-07-11 2022-07-11 Outpatient R DEEEAST [facility] [id number] Univers 10:00:00 10:00:00 ROD [facility] 2022-07-09 2022-07-09 Rn [facility] 1.2 .840.114 [id number] Univers 09:30:00 10:00:00 Visit Shawn Levy 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 350.1.13.10 ity [facility] 4.2.7.2.686 Marty as MATERNAL [id number] [facility] ical & CHILD [address] [place] [address] 2022-07-09 2022-07-09 Outpatient P DOMINIC [facility] [id number] Univers 09:30:00 09:30:00 SHAWN [facility] 2022-07-03 2022-07-03 Outpatient R LMEAST [facility] [id number] Univers 10:10:36 23:59:00 CAROLYN [facility] 2022-07-03 2022-07-03 [facility] Lm [facility] 1.2.840.114 [id number] Univers 10:10:36 23:59:00 Encounter Carolyn MARSHALL 350.1.13.10 ity of [place].7.2.[place] [id number] [facility] [address] [place] 2022-07-01 2022-07-01 Outpatient R ADUM, [facility] [id number] Univers 10:15:00 11:12:59 KASSIDY ity of [facility] 2022-07-01 2022-07-01 Routine Adum, [facility] [id number] Univers 10:15:00 11:12:59 Kassidy L CLAUDIA [id number] ity of [place] [facility] [id number] [address] 2022-07-01 2022-07-01 Telephone Rebekah Vaz [facility] [id number] Univers 00:00:00 00:00:00 Yonathan MARSHALL [id number] i ty [place] [id number] Fl dical NAL [address] [facility] 2022-06-30 2022-06-30 Outpatient R MAICO SAINI [facility] [id number] Univers 13:45:00 14:24:52 ity of [facility] 2022-06-30 2022-06-30 Telemedici Makayla Lechuga [facility] 1.2.8 40.114 [id number] Univers 13:45:00 14:24:52 ne Visit Maico Saini 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7.2.686 Marty as [id number] [facility] [address] 2022-06-25 2022-06-25 Case KELLI AmatoIT 1.2.596.770 [id number] Univers 00:00:00 00:00:00 Management Carolyn Y HEALTH 350.1.13.10 ity of [facility] [place].2.7.2.[place] [id number] [facility] [address] 2022-06-23 2022-06-24 Outpatient R FANTASMA [facility] [id number] Univers 13:00:00 10:54:16 YENNY it y of S OROPEZA [facility] 2022-06-23 2022-06-24 Telemedici Faculty, Poncho 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 350.1 .13.10 ity of [facility] 4.2.7.2.686 [place] as MATERNAL [id number] Med ical & CHILD [address] [place] [address] 2022-06-20 2022-06-20 Outpatient R REBEKAH VAZ [facility] [id number] Univers 09:15:00 10:20:21 ity of [facility] 2022-06-20 2022-06-20 Routine Rebekah Vaz [facility] 1.2.840.114 97 [id number] Univers 09:15:00 10:20:21 Cam CLAUDIA 350.1.13.10 i ty of Visit [place] [id number] [facility] [address] 2022-06-20 2022-06-20 Orders Doctor ADRIÁN 1.2.840.114 [id number] Univers 00:00:00 00:00:00 Only Unassigned, BAILEY 350.1.13.10 ity of [place] [facility] 4.2.7.2.686 Marty as [id number] [address] 2022-06-19 2022-06-19 Telephone Rebekah Vaz [facility] 1.2.840.114 [id number] Univers 00:00:00 00:00:00 Yonathan MARSHALL 350.1.13.10 i ty of [place].2.[place] [id number] Fl dical [address] 2022-06-19 2022-06-19 Telephone Rebekah Vaz [facility] 1.2.840.114 [id number] Univers 00:00:00 00:00:00 Yonathan TAYLOR 350.1.13.10 it y of [place] [id number] [address] 2022-06-11 2022-06-11 Outpatient P [facility] [id number] Univers 09:30:00 09:30:00 ity [facility] 2022-05-30 2022-05-30 Outpatient R REBEKAH VAZ [facility] [id number] Univers 09:00:00 09:00:00 ity [facility] 2022-05-27 2022-05-27 Rn Bariatric Ultrasound, Adc [facility] 1.2 .840.114 [id number] Univers 13:45:00 14:30:51 Visit Rebekah VazKENNETH 350.1.13.10 ity of Fantasma Apariciojessica Oropeza [place] 4.2.7.2. 686 [place] PROFESSIO [id number] [address] 2022-05-27 2022-05-27 Outpatient P MEEK [facility] [id number] Univers 13:45:00 13:45:00 YENNY it y of JOHNNA Zhao [facility] 2022-05-26 2022-05-26 Outpatient R ULICES [facility] [id number] Univers 11:00:00 17:02:24 JULIAN ity [facility] 2022-05-26 2022-05-26 Telemedici Faculty, Poncho Rmchp [facility] 1.2.840.114 [id number] Univers 11:00:00 17:02:24 ne Visit Julian Elena 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 350.1.13. 10 ity [facility] 4.2.7.2.686 [place] as MATERNAL [phone] Med ical & CHILD 107 [facility] 2022-05-26 2022-05-26 Telephone Price, [facility] 1.2.840.114 [id number] Univers 00:00:00 00:00:00 [facility] 350.1.13.10 it y of [place] 4.2.7.2.686 Marty as EMMETT?BLEA [id number] [facility] [address] MEDICAL OFFICE BUILDING 2022-05-23 2022-05-23 Outpatient R REBEKAH VAZ [facility] [id number] Univers 09:15:00 09:17:22 ity [facility] 2022-05-23 2022-05-23 Routine Татьяна [facility] 1.2.840.114 97 [id number] Univers 09:15:00 09:17:22 Yonathan TAYLOR 350.1.13.10 i ty of Visit [place].2.[place] [id number] [address] 2022-05-23 2022-05-23 Letter Rebekah Vaz [facility] 1.2.840.114 97 [id number] Univers 00:00:00 00:00:00 (Out) Yonathan TAYLOR 350.1.13.10 it y of [place].2.[place] [id number] [address] 2022-05-21 2022-05-21 Outpatient R ANGELO RODRIGUEZ [facility] [id number] Univers 15:00:00 15:39:34 ANGELO RODRIGUEZ ity [facility] 2022-05-21 2022-05-21 Routine Phu [facility] 1.2.840.114 [id number] Univers 15:00:00 15:39:34 Angelo TAYLOR 350.1.13.10 i ty of Visit [place] 4.2.7.2.[place] [id number] [address] 2022-05-21 2022-05-21 Letter Phu [facility] 1.2.840.114 [id number] Univers 00:00:00 00:00:00 (Out) Angelo TAYLOR 350.1.13.10 it y of [place] [id number] [facility] [address] 2022-05-20 2022-05-20 Orders Doctor ADRIÁN 1.2.840.114 [id number] Univers 00:00:00 00:00:00 Only Unassigned, BAILEY 350.1.13.10 ity of [place] [facility] 4.2.7.2.686 Marty as [id number] [address] 2022-05-19 2022-05-19 Telephone Rebekah Vaz [facility] 1.2.840.114 [id number] Univers 00:00:00 00:00:00 Yonathan TAYLOR 350.1.13.10 it y of PED[facility]ATR[facility] 4.[facility].7.2.686 [id number] [address] 2022-05-16 2022-05-16 Rn Bariatric Lab, Ang - Db [facility] 1.2.840.1 14 [id number] Univers 11:15:00 11:15:00 Visit PriceRod [facility] 350.1.13.10 ity of [facility] 4.2.7.2.686 Marty as EMMETT?BLEA [phone] Fl marcela [facility] [address] MEDICAL OFFICE BUILDING 2022-05-16 2022-05-16 Outpatient R DEEEAST [facility] [id number] Univers 10:30:00 10:30:00 ROD itcorona [facility] 2022-05-16 2022-05-16 [facility] 1.2.520.004 [id number] [id number] Univers 10:30:00 10:30:00 Visit Rod Mosqueda coRank 350.1.13.10 it y of [place] 4.2.7.2.686 Marty as EMMETT?BLEA [id number] Fl marcela [facility] [address] MEDICAL OFFICE BUILDING 2022-05-16 2022-05-16 Nurse Nurse, [facility] 1.2.840.114 [id number] Univers 09:00:00 09:15:00 Visit Rebekah Vaz 350.1.13.10 ity of [place].2.[place] [id number] [facility] [address] 2022-05-16 2022-05-16 Letter [facility] 1.2.624.059 [id number] Univers 00:00:00 00:00:00 (Out) Rod Msoqueda HEALTH 350.1.13.10 it y of [place] 4.2.7.2.686 Marty as EMMETT?BLEA [id number] [address] MEDICAL OFFICE BUILDING 2022-05-12 2022-05-12 Rn Bariatric 1, [facility] Us Room UNIVERSIT 1 .2.840.114 [id number] Univers 13:30:00 14:29:00 Visit Severo Mcclellan HEALTH 350.1.13.10 ity of CLINICS 4.2.7.2.[place] [id number] [facility] [address] 2022-05-12 2022-05-12 Outpatient P SEVERO MCCLELLAN [facility] [id number] Univers 13:30:00 13:30:00 SEVERO MCCLELLAN ity [facility] 2022-05-10 2022-05-10 Nurse ADRIÁN Huber 1.2.840.114 [id number] Univers 00:00:00 00:00:00 Triage Christine AVALOS 350.1.13.10 it y of [facility] 4.2.7.2.686 Marty as [id number] [address] 2022-05-09 2022-05-09 Outpatient R REBEKAH VAZ [facility] [id number] Univers 09:00:00 09:15:22 ity of [facility] 2022-05-09 2022-05-09 Nurse Nurse, Rusty [facility] 1.2.840.114 [id number] Univers 09:00:00 09:15:22 Visit Rebekah Vaz 350.1.13.10 ity of [place]2.[place] [id number] [address] 2022-05-09 2022-05-09 Telephone eDe [facility] 1.2.840.114 97 [id number] Univers 00:00:00 00:00:00 Rod Mosqueda [facility] 350.1.13.10 it y of [facility] 4.2.7.2.686 Marty as EMMETT?BLEA [id number] [facility] 220 [facility] 2022-05-05 2022-05-05 Rn Bariatric David, [facility] Lab Main [facility] 1.2.8 40.114 [id number] Univers 13:45:00 14:00:00 Visit Aydin Ferrera ROLANDO 350.1.13.10 ity of Rebekah Vaz 4.2.7.2.[address] [facility] [id number] [address] 2022-05-05 2022-05-05 Outpatient R ТАТЬЯНА REBEKAH [facility] [id number] Univers 13:45:00 13:45:00 ity of [facility] 2022-05-05 2022-05-05 Telephone Татьяна [facility] 1.2.840.114 [id number] Univers 00:00:00 00:00:00 Yonathan MARSHALL 350.1.13.10 i ty of [place]2.7.2.686 [place] [facility] [id number] [address] 2022-05-02 2022-05-02 Outpatient R REBEKAH VAZ [facility] [id number] Univers 14:30:00 16:22:52 ity of [facility] 2022-05-02 2022-05-02 Routine Татьяна Rebekah [facility] 1.2.840.114 96 [id number] Univers 14:30:00 16:22:52 Yonathan TAYLOR 350.1.13.10 i ty of Visit W[place] 4.2.7.2.[place] [id number] [address] 2022-04-28 2022-04-28 Outpatient P ULICES [facility] [id number] Univers 14:15:00 15:28:24 JULIAN ity of [facility] 2022-04-28 2022-04-28 Rn Bariatric 2, [facility] Usg Room UNIVERSIT 1 .2.840.114 [id number] Univers 14:15:00 14:45:00 Visit Julian Elena [facility] 350.1.13. 10 ity of CLINICS 4.2.7.2.[place] [id number] [facility] [address] 2022-04-28 2022-04-28 Telephone Jamila Zaldivar [facility] 1.2.840.11 4 [id number] Univers 00:00:00 00:00:00 CLAUDIA 350.1.13.10 it y [place] [id number] [facility] [address] 2022-04-25 2022-04-25 Nurse Nurse, [facility] 1.2.840.114 [id number] Univers 10:00:00 10:00:00 Visit Rebekah Vaz 350.1.13.10 ity of [place].2.[place] PROFESS[place] 338.7054103 Fl dic[address] 2022-04-25 2022-04-25 Outpatient R REBEKAH VAZ [facility] [id number] Univers 10:00:00 09:46:21 ity of [facility] 2022-04-24 2022-04-24 Orders Doctor ADRIÁN 1.2.840.114 [id number] Univers 00:00:00 00:00:00 Only Unassigned, BAILEY 350.1.13.10 ity of [place] [facility] 4.2.7.2.686 Marty as [id number] [facility] [address] 2022-04-22 2022-04-22 Telephone Rebekah Vaz [facility] 1.2.840.114 [id number] Univers 00:00:00 00:00:00 Yonathan MARSHALL 350.1.13.10 i ty of [place].2.[place] 502.9410514 Fl dical NAL 134 [facility] 2022-04-18 2022-04-18 Telephone Rebekah Vaz [facility] 1.2.840.114 96 [id number] Univers 00:00:00 00:00:00 Yonathan MARSHALL 350.1.13.10 i ty of [place].7.2.[place] [id number] Fl dical NAL 134 [facility] 2022-04-15 2022-04-15 Orders Doctor ADRIÁN 1.2.840.114 [id number] Univers 00:00:00 00:00:00 Only Unassigned, BAILEY 350.1.13.10 ity of [place] [facility] 4.2.7.2.686 Marty as [id number] [facility] [address] 2022-04-14 2022-04-14 Patient Jaxon [facility] 1.2.840.114 [id number] Univers 00:00:00 00:00:00 Secure Msg Ana Cristinanisa MARSHALL 350.1.13.10 ity of [place]2.7.2.[place] [id number] Fl dical NAL 134 [facility] 2022-04-13 2022-04-13 Case REID Hoskins 1.2.190.823 [id number] Univers 00:00:00 00:00:00 Management Conchita PEDIATRIC 350.1.13.10 ity of [place]2.7.2.[place] AD[place] [id number] [facility] PRIMARY [address] CARE CLINIC 2022-04-11 2022-04-11 Outpatient X REBEKAH VAZ [facility] CHRISTOPHER [id number] Univers 15:23:00 19:00:00 ity of [facility] 2022-04-11 2022-04-11 Emergency Wicho Boateng [facility] 1.2.840.1 14 [id number] Univers 15:23:00 19:00:00 Jamila Zaldivar 350.1.13.10 ity of Rebekah Vaz 4.2.7.2.686 [facility] [id number] [facility] [address] 2022-04-11 2022-04-11 Nurse Nurse, [facility] 1.2.840.114 [id number] Univers 14:45:00 15:05:00 Visit Cecelia Vogel [facility] 350.1.13.10 ity of [place] 4.2.7.2.686 Marty as EMMETT?BLEA 737.6531610 Me dical KNEY [address] MEDICAL OFFICE [facility] 2022-04-11 2022-04-11 Outpatient R LELA [facility] [id number] Univers 14:45:00 15:02:41 RANIA ity [facility] 2022-04-11 2022-04-11 Outpatient R LELA [facility] [id number] Univers 14:20:00 14:20:00 RANIA ity [facility] 2022-04-10 2022-04-10 Outpatient R [facility] [id number] Univers 08:45:00 08:45:00 ity of [facility] 2022-04-02 2022-04-02 Outpatient R REBEKAH VAZ [facility] [id number] Univers 10:00:00 10:44:45 ity of [facility] 2022-04-02 2022-04-02 Routine Татьяна [facility] 1.2.032.200 [id number] 2205 Univers 10:00:00 10:44:45 Cam ROLANDO 350.1.13.10 ity of Visit [place].2.[place].2.[place] PROFESS[place] [id number] Fl diclala NAL 134 [facility] 2022-04-02 2022-04-02 Outpatient R REBEKAH VAZ [facility] [id number] Univers 10:00:00 10:44:45 ity of [facility] 2022-04-02 2022-04-02 Telephone Rebekah Vaz [facility] 1.2.840.114 [id number] Univers 00:00:00 00:00:00 Cam ANGLEKENNETH 350.1.13.10 i ty of [place] 4.2.7.2.[place]ESS[place] 144.8592645 Me dical NAL 134 [facility] 2022-04-02 2022-04-02 Orders Doctor ADRIÁN 1.2.840.114 [id number] Univers 00:00:00 00:00:00 Only Unassigned, BAILEY 350.1.13.10 ity of [place] [facility] 4.2.7.2.686 Marty as [id number] [address] 2022-03-30 2022-03-30 Shirley Denson [facility] 1.2.840.114 [id number] Univers 00:00:00 00:00:00 Linda HEALTH 350.1.13.10 it y of [place] 4.2.7.2.686 Marty as EMMETT?BLEA [id number] [address] MEDICAL OFFICE BUILDING 2022-03-24 2022-03-24 ANNETTE Haley 1.2.840.114 [id number] Univers 00:00:00 00:00:00 Management Rosa OLIVAS 350.1.13.10 ity [place] [id number] [address] 2022-03-21 2022-03-21 Letter ADRIÁN Josue 1.2.840.114 [id number] Univers 00:00:00 00:00:00 (Out) Rhonda PERRYY 350.1.13.10 it y of [facility] 4.2.7.2.686 Marty as [id number] [address] 2022-03-20 2022-03-20 Outpatient R EBJANE, [facility] [id number] Univers 17:40:00 18:04:01 [facility] 2022-03-20 2022-03-20 Urgent [facility] 1.2.840.114 [id number] Univers 17:40:00 18:00:00 Care Rania HEALTH 350.1.13.10 it y of [place] 4.2.7.2.686 Marty as EMMETT?BLEA [id number] [address] MEDICAL OFFICE [facility] 2022-03-20 2022-03-20 Outpatient R EBRAFLAVIAM, [facility] [id number] Univers 17:15:00 17:15:00 CECELIA ity [facility] 2022-03-20 2022-03-20 Letter Gracy, [facility] 1.2.416.206 [id number] Univers 00:00:00 00:00:00 (Out) Ang Db HEALTH 350.1.13.10 it y of Urgent Care [facility] 4.2.7.2.686 [place] EMMETT?BLEA [id number] Me marcela MYERS [address] [place] [address] MEDICAL OFFICE BUILDING 2022-03-18 2022-03-18 Outpatient R JAMILA ZALDIVAR [facility] [id number] Univers 13:00:00 13:00:00 ity of [facility] 2022-03-07 2022-03-07 Outpatient R JAMILA ZALDIVAR [facility] [id number] Univers 08:30:00 08:30:00 ity [facility] 2022-03-03 2022-03-03 Emergency X RIDKALPANA, [facility] ERT [id number] Univers 16:18:00 16:40:00 [facility] 2022-03-03 2022-03-03 Emergency [facility] 1.2.155.382 [id number] Univers 16:18:00 16:40:00 Kashif MARSHALL 350.1.13.10 ity [facility] 4.2.7.2.686 [facility] [id number] [facility] [address] 2022-03-03 2022-03-03 Outpatient R DIANE [facility] [id number] Univers 09:45:00 09:45:00 [facility] 2022-02-27 2022-02-27 Outpatient R JAMILA ZALDIVAR [facility] [id number] Univers 13:45:00 14:33:07 ity [facility] 2022-02-27 2022-02-27 Routine Zen Jamila [facility] 1.2.840.114 [id number] Univers 13:45:00 14:33:07 CLAUDIA 350.1.13.10 i ty of Visit [facility] 4.2.7.2.686 [facility] [id number] [facility] [address] 2022-02-27 2022-02-27 Outpatient R ZENJAMILA [facility] [id number] Univers 13:45:00 13:45:00 ity [facility] 2022-02-11 2022-02-11 Outpatient R KOBE [facility] [id number] Univers 14:00:00 14:00:00 [facility] 2022-02-11 2022-02-11 Outpatient R KOBE [facility] [id number] Univers 14:00:00 14:00:00 WENTONG ity of [facility] 2022-02-08 2022-02-08 ADRIÁN Murray 1.2.840.114 [id number] Univers 00:00:00 00:00:00 (Out) Rhonda BAILEY 350.1.13.10 it y of HOSPITAL 4.2.7.2.686 [place] as [id number] [facility] [address] 2022-02-07 2022-02-07 Urgent Jarett [facility] 1.2.840.114 [id number] Univers 17:40:00 18:00:00 Care Linda HEALTH 350.1.13.10 it y of [place] 4.2.7.2.686 Marty as EMMETT?BLEA [id number] [address] MEDICAL OFFICE BUILDING 2022-02-07 2022-02-07 Outpatient R JARETT [facility] [id number] Univers 17:40:00 17:49:36 [facility] 2022-02-07 2022-02-07 Outpatient R [facility] [id number] Univers 09:00:00 09:00:00 ity of [facility] 2022-02-06 2022-02-06 Outpatient R JAMILA ZALDIVAR [facility] [id number] Univers 13:00:00 13:54:43 ity of [facility] 2022-02-06 2022-02-06 Routine Jamila Zaldivar [facility] 1.2.840.114 [id number] Univers 13:00:00 13:54:43 CLAUDIA 350.1.13.10 i ty of Visit W[place]'S 4.2.7.2.686 [place] [facility] [id number] [facility] [address] 2022-02-06 2022-02-06 Outpatient R JAMILA ZALDIVAR [facility] [id number] Univers 13:00:00 13:00:00 ity of [facility] 2022-02-06 2022-02-06 Orders Doctor SAMPSON 1.2.840.114 [id number] Univers 00:00:00 00:00:00 Only Unassigned, BAILEY 350.1.13.10 ity of [place] [facility] 4.2.7.2.686 Marty as [id number] [address] 2022-01-31 2022-01-31 Outpatient R JAMILA ZALDIVAR [facility] [id number] Univers 13:15:00 14:15:21 ity of [facility] 2022-01-31 2022-01-31 Routine Jamila Zaldivar [facility] 1.2.840.114 [id number] Univers 13:15:00 14:15:21 ANGLEKENNETH 350.1.13.10 ity of Visit [place].2.[place] PROFESS[place] [id number] [address] 2022-01-31 2022-01-31 Outpatient R JAMILA ZALDIVAR [facility] [id number] Univers 13:30:00 13:30:00 ity of [facility] 2022-01-29 2022-01-29 Rn Bariatric Lab, Ang [facility] 1.2.840.1 14 [id number] Univers 14:30:00 14:58:49 Visit Jamila Zaldivar [facility] 350.1.13.10 ity of [place] 4.2.7.2.686 Marty as EMMETT?BLEA [id number] [address] MEDICAL OFFICE [facility] 2022-01-29 2022-01-29 Rn Bariatric Lab, Ang - Db [facility] 1.2.840.1 14 [id number] Univers 14:30:00 14:45:00 Visit Jamila Zaldivar 350.1.13.10 ity of [place] 4.2.7.2.686 Marty as EMMETT?BLEA [phone] [address] MEDICAL OFFICE [facility] 2022-01-29 2022-01-29 Outpatient R JAMILA ZALDIVAR [facility] [id number] Univers 14:30:00 14:30:00 ity of [facility] 2022-01-29 2022-01-29 Outpatient R JAMILA ZALDIVAR [facility] [id number] Univers 10:30:00 10:30:00 ity of [facility] 2022-01-29 2022-01-29 Telephone Jamila Zaldivar [facility] 1.2.840.11 [id number] Univers 00:00:00 00:00:00 DILLEY 350.1.13.10 it [place] [facility] [id number] [address] 2022-01-29 2022-01-29 Patient Jaxon [facility] 1.2.840.114 [id number] Univers 00:00:00 00:00:00 Secure Msg Ana Cristina ROLANDO 350.1.13.10 it[place] [id number] [address] 2022-01-29 2022-01-29 Telephone Jamila Zaldivar [facility] 1.2.840.11 4 [id number] Univers 00:00:00 00:00:00 CLAUDIA 350.1.13.10 it [place] [id number] [address] 2022-01-27 2022-01-27 Rn Bariatric Lab, Ang - [facility] 1.2.840.1 14 [id number] Univers 10:45:00 10:45:00 Visit Natividad Zaldivarn [facility] 350.1.13.10 ity of [place] 4.2.7.2.686 Marty as EMMETT?BLEA [phone] [facility] [address] MEDICAL OFFICE [facility] 2022-01-27 2022-01-27 Urgent Amanda Chinchilla [facility] 1.2.840. 114 [id number] Univers 10:20:00 10:40:00 Care Song, Linda HEALTH 350.1.13.10 ity of [place] 4.2.7.2.686 Marty as EMMETT?BLEA [phone] [facility] [address] MEDICAL OFFICE BUILDING 2022-01-27 2022-01-27 Outpatient R ZENNATIVIDADN [facility] [id number] Univers 08:30:00 09:36:17 ity of [facility] 2022-01-27 2022-01-27 Initial ZenNatividadn [facility] 1.2.840.114 [id number] Univers 08:30:00 09:36:17 CLAUDIA 350.1.13.10 i ty of [place] [id number] [address] 2022-01-27 2022-01-27 Letter Jamila Zaldivar [facility] 1.2.840.114 [id number] Univers 00:00:00 00:00:00 (Out) CLAUDIA 350.1.13.10 it [place] [id number] [address] 2022-01-27 2022-01-27 Telephone Jamila Zaldivar [facility] 1.2.840.11 [id number] Univers 00:00:00 00:00:00 CLAUDIA 350.1.13.10 it [place] [id number] [address] 2022-01-27 2022-01-27 Orders Doctor ADRIÁN 1.2.840.114 [id number] Univers 00:00:00 00:00:00 Only Unassigned, BAILEY 350.1.13.10 ity of [facility] 4.2.7.2.686 Marty as [id number] [facility] [address] 2022-01-08 2022-01-08 Refill Lela [facility] 1.2.840.114 [id number] Univers 00:00:00 00:00:00 University [facility] HEALTH 350.1.13.10 it y of [place] 4.2.7.2.686 Marty as EMMETT?BLEA [id number] [address] MEDICAL OFFICE BUILDING 2021-12-11 2021-12-11 Telephone ADRIÁN Josue 1.2.391.518 [id number] Univers 00:00:00 00:00:00 Rhonda AVALOS 350.1.13.10 it y of HOSPITAL 4.2.7.2.686 Marty as [id number] [facility] [address] 2021-12-10 2021-12-10 Outpatient R LELA [facility] [id number] Univers 15:40:00 16:07:31 CECELIA ity [facility] 2021-12-10 2021-12-10 Urgent Cecelia Vogel [facility] 1.2.840.114 [id number] Univers 15:40:00 16:07:31 Care [facility] 350.1.13.10 ity of [place] 4.2.7.2.686 Amrty as EMMETT?BLEA [phone] [address] OFFICE [facility] 2021-12-10 2021-12-10 Outpatient R LELA [facility] [id number] Univers 15:40:00 16:07:31 CECELIA [facility] 2021-10-28 2021-10-28 Outpatient R JARETT [facility] [id number] Univers 17:20:00 17:53:40 [facility] 2021-10-28 2021-10-28 [facility] 1.2.840.114 [id number] Univers 17:20:00 17:53:40 [facility] 350.1.13.10 it y of [place] 4.2.7.2.686 Marty as EMMETT?BLEA [id number] [address] OFFICE [facility] 2021-10-21 2021-10-21 Shirley [facility] 1.2.339.404 [id number] Univers 00:00:00 00:00:00 [facility] 350.1.13.10 it y of [facility] 4.2.7.2.686 Marty as EMMETT?BLEA [id number] [address] MEDICAL OFFICE [facility] 2021-10-02 2021-10-02 Outpatient R REBEKAH VAZ [facility] [id number] Univers 14:00:00 14:00:00 ity [facility] 2021-10-01 2021-10-01 Outpatient R KOBE [facility] [id number] Univers 12:30:00 12:30:00 JEANNA [facility] 2021-10-01 2021-10-01 Outpatient R KOBE [facility] [id number] Univers 10:00:00 10:00:00 ABRAHAMKIMANI [facility] 2021-09-30 2021-09-30 [facility] [id number] Univers 17:00:00 17:00:00 SONI ity [facility] 2021-09-28 2021-09-28 Outpatient R KING ALLISON [facility] [id number] Univers 09:20:00 09:35:47 VERNON ity [facility] 2021-09-27 2021-09-27 Outpatient R ТАТЬЯНА [facility] [id number] Univers 12:30:00 12:30:00 ity [facility] 2021-09-27 2021-09-27 Telephone Татьяна Rebekah [facility] LAINEZ 1.2.840.114 [id number] Univers 00:00:00 00:00:00 Yonathan TAYLOR 350.1.13.10 it y of [place] [id number] [address] 2021-09-20 2021-09-20 Telephone Татьяна Rebekah [facility] [place] 1.2.840.114 [id number] Univers 00:00:00 00:00:00 Yonathan TAYLOR 350.1.13.10 it y of [place] [id number] [address] 2021-09-14 2021-09-14 Patient Kobe [facility] 1.2.840.114 [id number] Univers 00:00:00 00:00:00 Secure [facility] 350.1.13.10 ity of [place] 4.2.7.2.686 Marty as EMMETT?BLEA [phone] Fl marcela MYERS [address] [place] [address] MEDICAL OFFICE BUILDING 2021-09-13 2021-09-13 Outpatient R ТАТЬЯНА REBEKAH [facility] [id number] Univers 11:15:00 12:08:16 ity [facility] 2021-09-13 2021-09-13 Routine Татьяна Rebekah [facility] LAINEZ 1.2.840.114 [id number] Univers 11:15:00 12:08:16 Yonathan TAYLOR 350.1.13.10 i ty of Visit [place] [id number] [address] 2021-09-13 2021-09-13 Letter Rebekah Vaz [facility] [place] 1.2.840.114 [id number] Univers 00:00:00 00:00:00 (Out) Yonathan TAYLOR 350.1.13.10 it y of [place] 4.[place] [id number] [address] 2021-09-13 2021-09-13 Orders Doctor ADRIÁN 1.2.840.114 [id number] Univers 00:00:00 00:00:00 Only Unassigned, BAILEY 350.1.13.10 ity of [place] [facility] 4.2.7.2.686 Marty as [id number] [address] 2021-09-04 2021-09-04 Outpatient R ТАТЬЯНА REBEKAH [facility] [id number] Univers 15:00:00 15:00:00 ity [facility] 2021-09-02 2021-09-02 Outpatient R DIANE [facility] [id number] Univers 09:45:00 09:45:00 SONI ity [facility] 2021-09-02 2021-09-02 Outpatient R KOBE [facility] [id number] Univers 00:00:00 00:00:00 WENTONG ity [facility] 2021-09-02 2021-09-02 Outpatient R KOBE [facility] [id number] Univers 00:00:00 00:00:00 [facility] ity [facility] 2021-09-02 2021-09-02 Outpatient R KOBE [facility] [id number] Univers 00:00:00 00:00:00 [facility] 2021-08-30 2021-08-30 Outpatient R REBEKAH VAZ [facility] [id number] Univers 12:30:00 13:36:54 ity [facility] 2021-08-30 2021-08-30 Ed Rebekah Vaz NJANTONELLA LAINEZ 1.2.840.114 [id number] Univers 12:30:00 13:36:54 Yonathan TAYLOR 350.1.13.10 i ty of Visit [place] 4.2.[place] [id number] [address] 2021-08-30 2021-08-30 Letter Rebekah Vaz [facility] [place] 1.2.840.114 [id number] Univers 00:00:00 00:00:00 (Out) Yonathan TAYLOR 350.1.13.10 it y of WOMEN'S 4.2.7.2.686 [place] HEALTH [id number] [address] 2021-08-29 2021-08-29 Outpatient R CASSIUS [facility] [id number] Univers 18:40:00 19:35:58 [facility] 2021-08-29 2021-08-29 Urgent Vernon Gonzalez [facility] 1.2.840.114 [id number] Univers 18:40:00 19:00:00 Brandon Cassius [facility] 350.1.13.10 ity of [place] 4.2.7.2.686 Marty as EMMETT?BLEA [phone] Fl elroylala [facility] [address] MEDICAL OFFICE [facility] 2021-08-29 2021-08-29 Outpatient R CASSIUS [facility] [id number] Univers 18:40:00 18:40:00 [facility] 2021-08-27 2021-08-27 Rn Bariatric Lab, [place] - Lobo [facility] 1.2.840.1 14 [id number] Univers 14:00:00 14:15:00 Visit Kobe Replaced by [facility] 350.1.13.10 ity of [place] 4.2.7.2.686 Marty as EMMETT?BLEA [phone] Fl elroylala MYERS [address] [place] MEDICAL OFFICE [facility] 2021-08-27 2021-08-27 Office [facility] 1.2.840.114 [id number] Univers 13:00:00 14:05:18 Visit Replaced by [facility] 350.1.13.10 it y of [place] 4.2.7.2.686 Marty as EMMETT?BLEA [phone] Fl elroylala MYERS [address] MEDICAL OFFICE BUILDING 2021-08-27 2021-08-27 Outpatient R KOBE [facility] [id number] Univers 13:00:00 14:05:18 [facility] 2021-08-27 2021-08-27 Outpatient R COLTON [facility] [id number] Univers 14:00:00 14:00:00 MAR itcorona [facility] 2021-08-27 2021-08-27 Outpatient R KOBE [facility] [id number] Univers 14:00:00 14:00:00 [facility] 2021-08-27 2021-08-27 Orders Doctor SAMPSON 1.2.840.114 [id number] Univers 00:00:00 00:00:00 Only Unassigned, BAILEY 350.1.13.10 [facility]y [facility] 4.2.7.2.686 Marty as [phone] [address] 2021-08-27 2021-08-27 Akil Bullock [facility] 1.2.840.114 [id number] Univers 00:00:00 00:00:00 (Out) [facility] coRank 350.1.13.10 it y of [place] 4.2.7.2.686 Marty as EMMETT?BLEA [phone] [address] MEDICAL OFFICE BUILDING 2021-08-26 2021-08-26 Outpatient R CHAPINCITO [facility] [id number] Univers 09:00:00 09:00:00 [facility] ity [facility] 2021-08-26 2021-08-26 Outpatient R CHAPINCITO [facility] [id number] Univers 09:00:00 09:00:00 [facility] 2021-08-26 2021-08-26 Outpatient R CHAPINCITO [facility] [id number] Univers 09:00:00 09:00:00 [facility] 2021-08-23 2021-08-23 Outpatient R REBEKAH VAZ [facility] [id number] Univers 10:45:00 10:45:00 ity [facility] 2021-07-23 2021-07-23 Laboratory Only, Ang Db Test [facility] 1.2.8 40.114 [id number] Univers 18:00:00 18:15:00 Only Green, Nelson HEALTH 350.1.13.10 ity of [facility] 4.2.7.2.686 Marty as EMMETT?BLEA [id number] [address] MEDICAL OFFICE BUILDING 2021-07-23 2021-07-23 Outpatient R CASSIUS [facility] [id number] Univers 18:00:00 18:00:00 NELSON itcorona [facility] 2021-07-23 2021-07-23 Outpatient R CASSIUS [facility] [id number] Univers 16:00:00 16:00:00 [facility] 2021-07-23 2021-07-23 Outpatient R [facility] [id number] Univers 15:45:00 15:45:00 ity [facility] 2021-07-04 2021-07-04 Orders Doctor ADRIÁN 1.2.840.114 [id number] Univers 00:00:00 00:00:00 Only Unassigned, VANCE 350.1.13.10 ity [facility] 4.2.7.2.686 Marty as [phone] [address] 2021-06-26 2021-06-26 Outpatient R SIMÓN [facility] [id number] Univers 16:00:00 16:11:06 LIBBY burnscorona mckeon [facility] 2021-06-26 2021-06-26 Urgent Nelson Hammonds [facility] 1.2.840.114 [id number] Univers 14:02:21 14:22:21 Libby Santamaria [facility] 350.1.13.10 ity [facility] 4.2.7.2.686 Marty as EMMETT?BLEA [phone] [address] MEDICAL OFFICE [facility] 2021-06-26 2021-06-26 Outpatient [facility] [id number] Univers 14:00:00 14:00:00 LIBBY anglin o f [facility] 2021-06-26 2021-06-26 Outpatient R [facility] [id number] Univers 10:00:00 10:00:00 ity [facility] 2021-06-24 2021-06-24 Outpatient R DIANE [facility] [id number] Univers 10:00:00 10:00:00 SONI anglin [facility] 2021-06-24 2021-06-24 Telephone [facility] 1.2.277.472 [id number] Univers 00:00:00 00:00:00 Soni A HEALTH 350.1.13.10 i ty of [place] 4.2.7.2.686 Marty as EMMETT?BLEA [id number] [address] MEDICAL OFFICE [facility] 2021-06-21 2021-06-21 Outpatient [facility] [id number] Univers 09:30:00 09:30:00 MUKUND anglin [facility] 2021-06-21 2021-06-21 Refill [facility] 1.2.840.114 [id number] Univers 00:00:00 00:00:00 Mukund HEALTH 350.1.13.10 it y of [place] 4.2.7.2.686 Marty as EMMETT?BLEA [id number] [address] OFFICE [facility] 2021-06-18 2021-06-18 Outpatient R [facility] [id number] Univers 09:30:00 09:30:00 MUKUND anglin [facility] 2021-06-18 2021-06-18 Telephone [facility] 1.2.213.336 [id number] Univers 00:00:00 00:00:00 Mukund HEALTH 350.1.13.10 it y of [place] 4.2.7.2.686 Marty as EMMETT?BLEA [id number] [address] OFFICE [facility] 2021-06-13 2021-06-13 Patient [facility] 1.2.840.114 [id number] Univers 00:00:00 00:00:00 Secure Msg Mukund HEALTH 350.1.13.10 ity of [place] 4.2.7.2.686 Marty as EMMETT?BLEA [id number] [address] OFFICE [facility] 2021-06-12 2021-06-12 Outpatient R EMILI [facility] [id number] Univers 13:30:00 14:12:46 ERIC anglin [facility] 2021-06-12 2021-06-12 Office [facility] 1.2.446.526 [id number] Univers 13:23:25 14:12:46 Visit Eric Hammond 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 350.1.13.10 it y of [facility] 4.2.7.2.686 Marty as MATERNAL [id number] [facility] ical & CHILD [address] [place] [address] 2021-06-12 2021-06-12 Outpatient Ruben [facility] [id number] Univers 13:30:00 13:30:00 ERIC anglin [facility] 2021-06-07 2021-06-07 [facility] 1.2.840.114 [id number] Univers 10:32:59 23:59:00 Encounter Mukund CANDELARIA 350.1.13.10 ity [facility] 4.2.7.2.686 Marty as EMMETT?BLEA [phone] Fl marcela MYERS [address] [facility] OFFICE [facility] 2021-06-07 2021-06-07 Outpatient Ruben [facility] [id number] Univers 10:32:59 23:59:00 MUKUND anglin [facility] 2021-06-07 2021-06-07 Outpatient Ruben [facility] [id number] Univers 09:30:00 10:38:03 MUKUND anglin [facility] 2021-06-07 2021-06-07 Office [facility] 1.2.840.114 [id number] Univers 09:27:17 10:38:03 Visit Mukund [facility] 350.1.13.10 it [facility] 4.2.7.2.686 Marty as EMMETT?BLEA [phone] Fl marcela MYERS [address] [facility] OFFICE [facility] 2021-06-07 2021-06-07 Outpatient Ruben [facility] [id number] Univers 09:30:00 09:30:00 MUKUND anglin [facility] 2021-06-05 2021-06-05 Shirley [facility] 1.2.840.114 [id number] Univers 00:00:00 00:00:00 Linda HEALTH 350.1.13.10 it y of [place] 4.2.7.2.686 Marty as EMMETT?BLEA [phone] Fl [facility] Center[facility] [address] [facility] OFFICE [facility] 2021-06-04 2021-06-04 Outpatient R CHARLES [facility] [id number] Univers 09:30:00 09:30:00 MUKUND anglin [facility] 2021-06-01 2021-06-01 Refilana [facility] 1.2.840.114 [id number] Univers 00:00:00 00:00:00 Mukund HEALTH 350.1.13.10 it y of [place] 4.2.7.2.686 Marty as EMMETT?BLEA [phone] Fl marcela [facility] [address] [facility] OFFICE [facility] 2021-05-31 2021-05-31 Shirley [facility] 1.2.840.114 [id number] Univers 00:00:00 00:00:00 Linda HEALTH 350.1.13.10 it y of [place] 4.2.7.2.686 Marty as EMMETT?BLEA [phone] [facility] [address] [facility] OFFICE [facility] 2021-05-20 2021-05-20 Outpatient R CHAPINCITO [facility] [id number] Univers 13:30:00 13:30:00 JOSH corona [facility] 2021-05-17 2021-05-17 Outpatient R EMILI [facility] [id number] Univers 10:15:00 10:15:00 ERIC corona [facility] 2021-05-10 2021-05-10 Rn Bariatric Lab, Ang - Db [facility] 1.2.840.1 14 [id number] Univers 13:53:17 14:07:26 Visit Soni [facility] 350.1.13.10 ity of [place] 4.2.7.2.686 Marty as Emmett?Blea [id number] Fl marcela myers 353 [facility] Office [facility] 2021-05-10 2021-05-10 Office Mukund Soto [facility] 1.2.840.114 [id number] Univers 12:57:45 13:53:07 Visit [facility].13.[facility] 4.2.7.2.686 Marty as Emmett?Blea [phone] Fl marcela myers [address] [place] Medical Office [facility] 2021-05-10 2021-05-10 Out[facility] [id number] Univers 13:00:00 13:00:00 SONI anglin [facility] 2021-05-08 2021-05-08 Urgent Linda Denson [facility] 1.2.840.114 [id number] Univers 18:49:53 19:09:53 [facility] 350.1.13.10 [facility] 4.2.7.2.686 Marty as Emmett?Blea [phone] Fl marcela [facility] [address] Medical Office [facility] 2021-05-08 2021-05-08 Outpatient R [facility] [id number] Univers 19:00:00 19:00:00 AMANDA anglin o f [facility] 2021-05-08 2021-05-08 Outpatient R [facility] [id number] Univers 17:20:00 17:20:00 itcorona [facility] 2021-04-25 2021-04-25 Routine [facility] 1.2.050.882 [id number] Univers 15:59:10 16:44:08 Eric Hammond 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 350.1.13.10 i ty of Visit REGIONAL 4.2.7.2.686 Marty as MATERNAL [phone] Med ical & CHILD [address] [place] [address] 2021-04-25 2021-04-25 Outpatient [facility] [id number] Univers 16:00:00 16:00:00 ERIC derrek [facility] 2021-03-31 2021-04-03 Hospital ADRIÁN Elena 1.2.888.688 [id number] Univers 16:58:00 13:59:00 Padmini AVALOS 350.1.13.10 ity of [facility] 4.2.7.2.686 Marty as [id number] [address] 2021-04-02 2021-04-02 Outpatient R [facility] [id number] Univers 14:15:00 14:15:00 ERIC anglin [facility] 2021-03-31 2021-04-01 Anesthesia [place] 1.2.840 .114 [id number] Univers 20:35:00 03:48:00 Event Adrián Parikh M BAI[place] 350.1.13.10 ity [place] [address].2.7.2.686 Marty as [id number] [address] 2021-03-31 2021-04-01 Surgery Ulices ADRIÁN 1.2.840.114 [id number] Univers 23:00:00 00:43:00 Julian Norman AVALOS 350.1.13.10 ity [place] [address]..7.2.686 Marty as [id number] [address] 2021-03-27 2021-03-27 Outpatient R LUIS F [facility] [id number] Univers 15:45:00 15:45:00 TAB mckeon [facility] 2021-03-26 2021-03-26 Rn Bariatric Ultrasound, [facility] 1.2 .840.114 [id number] Univers 15:04:09 15:34:09 Visit Eric Mock 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 350.1.13.10 ity of [place] Woo zaina REGIONAL 4.2.7.2 .686 [place] MATERNAL [phone] [facility] & CHILD [address] [place] [address] 2021-03-26 2021-03-26 Rn Bariatric Ultrasound, [facility] 1.2 .840.114 [id number] Univers 15:04:09 15:34:09 Visit Eric Mock 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 350.1.13.10 ity of [place] REGIONAL 4.2.7.2 .686 [place] MATERNAL [phone] [facility] & CHILD [address] [place] [address] 2021-03-26 2021-03-26 Outpatient P [facility] [id number] Univers 15:15:00 15:15:00 ERIC anglin [facility] 2021-03-26 2021-03-26 Routine [facility] 1.2.196.655 [id number] Univers 14:15:58 15:03:13 Eric Hammond 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 350.1.13.10 i ty of Visit REGIONAL 4.2.7.2.686 Marty as MATERNAL [phone] Med ical & CHILD [address] [place] [address] 2021-03-26 2021-03-26 Routine [facility] 1.2.077.946 [id number] Univers 14:15:58 15:03:13 Eric Hammond 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 350.1.13.10 i ty of Visit REGIONAL 4.2.7.2.686 Marty as MATERNAL [phone] Med ical & CHILD [address] [place] [address] 2021-03-21 2021-03-21 Telephone [facility] 1.2.840.114 [id number] Univers 00:00:00 00:00:00 Eric Hammond 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 350.1.13.10 it y of REGIONAL 4.2.7.2.686 Marty as MATERNAL [id number] Med ical & CHILD [address] [place] [address] 2021-03-20 2021-03-20 Outpatient R EMILI [facility] [id number] Univers 12:45:00 12:45:00 ERIC anglin [facility] 2021-03-20 2021-03-20 Rn Bariatric Lab, Ang-Rmchp [facility] 1.2.840. 114 [id number] Univers 12:42:40 12:42:47 Visit Eric Mock 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 350.1.13.10 ity of REGIONAL 4.2.7.2.686 Marty as MATERNAL [phone] [facility] ical & CHILD [address] [place] [address] 2021-03-20 2021-03-20 Telephone [facility] 1.2.840.114 [id number] Univers 00:00:00 00:00:00 Eric Hammond 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 350.1.13.10 it y of REGIONAL 4.2.7.2.686 Marty as MATERNAL [phone] Med ical & CHILD [address] [place] [address] 2021-03-19 2021-03-19 Routine [facility] 1.2.924.119 [id number] Univers 14:24:31 15:03:42 Eric Hammond 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 350.1.13.10 i ty of Visit REGIONAL 4.2.7.2.686 Marty as MATERNAL [id number] [facility] & [address] 2021-03-19 2021-03-19 Out[facility] [id number] Univers 14:15:00 14:15:00 ERIC [facility] 2021-03-12 2021-03-12 Outpatient R [facility] [id number] Univers 09:30:00 09:30:00 ity [facility] 2021-03-05 2021-03-05 Routine [facility] 1.2.638.589 [id number] Univers 10:48:25 11:35:50 Eric Hammond 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 350.1.13.10 i ty of Visit [facility] 4.2.7.2.686 Marty as MATERNAL [phone] [address] 2021-03-05 2021-03-05 Outpatient R [facility] [id number] Univers 11:00:00 11:00:00 [facility] 2021-02-27 2021-02-27 Nurse Visit, InocencioRmchp Nurse [facility] 1.2 .840.114 [id number] Univers 15:40:08 15:58:05 Visit Kathryn Fry 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 350.1.13.10 ity of [facility] [id number] Marty as MATERNAL [phone] [facility] & [address] 2021-02-27 2021-02-27 Rn Bariatric Ultrasound, Margie [facility] 1.2 .840.114 [id number] Univers 14:55:25 15:25:25 Visit Eric Mock 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 [id number] ity of [facility] [id number] Marty as MATERNAL [phone] [facility] & CHILD [address] [place] [address] 2021-02-27 2021-02-27 Outpatient P [facility] [id number] Univers 15:00:00 15:00:00 ity [facility] 2021-02-26 2021-02-26 Outpatient R EMILI [facility] [id number] Univers 10:45:00 10:45:00 ERIC anglin [facility] 2021-02-22 2021-02-22 Outpatient R SEVERO MCCLELLAN [facility] [id number] Univers 10:45:00 10:45:00 SEVERO MCCLELLAN [facility] 2021-02-22 2021-02-22 Telemedici Fellow, [facility] N[facility]ERSIT 1.2.840.114 [id number] Univers 08:26:49 08:41:49 ne Visit Severo Mcclellan [facility] [id number] ity of [facility] [id number] [place] [phone] [address] 2021-02-19 2021-02-19 Routine Emili [facility] [id number] Univers 13:04:02 13:55:40 Eric Hammond 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 [id number] i ty of Visit REGIONAL [id number] Marty as MATERNAL [phone] Med ical & CHILD [address] [place] [address] 2021-02-19 2021-02-19 Outpatient R [facility] [id number] Univers 13:00:00 [facility] 2021-02-19 2021-02-19 Outpatient R EMILI [facility] [id number] Univers 13:00:00 13:00:00 ERICJESUSITA anglin [facility] 2021-02-19 2021-02-19 [facility] 1.2.840.114 [id number] Univers 00:00:00 00:00:00 Eric Hammond 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 350.1.13.10 it y of REGIONAL 4.2.7.2.686 [place] as MATERNAL [phone] Med [facility] & CHILD [address] [place] [address] 2021-02-18 2021-02-18 Outpatient R [facility] [id number] Univers 10:00:00 10:00:00 [facility] 2021-02-18 2021-02-18 Telephone Hortencia [facility] 1.2.840.114 [id number] Univers 00:00:00 00:00:00 Ang Rmchp 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 350.1.13.10 ity of [facility] 4.2.7.2.686 Marty as MATERNAL [phone] [facility] & CHILD [address] [place] [address] 2021-02-15 2021-02-15 Telemedici Makayla Lechuga [facility] 1.2.8 40.114 [id number] Univers 12:53:36 12:53:48 ne Visit ParveenMaico Vivek 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 350.1.13.10 ity of [facility] 4.2.7.2.686 Marty as MATERNAL [phone] [facility] CHILD [address] [place] [address] 2021-02-15 2021-02-15 Outpatient P [facility] [id number] Univers 09:45:00 09:45:00 ity of [facility] 2021-02-12 2021-02-12 Routine [facility] 1.2.320.449 [id number] Univers 13:33:25 14:47:59 Eric Hammond 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 350.1.13.10 i ty of Visit [facility] 4.2.7.2.686 [place] as MATERNAL [phone] [address] 2021-02-12 2021-02-12 [facility] [id number] Univers 14:00:00 14:00:00 ERIC anglin [facility] 2021-02-08 2021-02-08 Telephone [facility] 1.2.840.114 [id number] Univers 00:00:00 00:00:00 Eric Hammond 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 350.1.13.10 it y of [facility] 4.2.7.2.686 Marty as MATERNAL [id number] [facility] & CHILD [address] [place] [address] 2021-02-08 2021-02-08 Nurse ADRIÁN Seaman 1.2.840.114 [id number] Univers 00:00:00 00:00:00 Triage Aneatricjeanette AVALOS 350.1.13.10 ity of [facility] 4.2.7.2.686 Marty as [phone] [address] 2021-02-05 2021-02-05 Outpatient R [facility] [id number] Univers 12:45:00 12:45:00 [facility] 2021-02-01 2021-02-01 Abstract Luldonnell [facility] 1.2.840.114 [id number] Univers 00:00:00 00:00:00 Tab C 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 350.1.13.10 ity of [facility] 4.2.7.2.686 Marty as MATERNAL [id number] [facility] & CHILD [address] [place] [address] 2021-01-31 2021-01-31 Rn Bariatric 1, [facility] Us Room UNIVERSIT 1 .2.840.114 [id number] Univers 15:10:46 16:18:12 Visit Fantasma Apariciojessica [facility] 350.1 .13.10 ity of [facility] 4.2.7.2.[place] [phone] [facility] [address] 2021-01-31 2021-01-31 Outpatient P [facility] [id number] Univers 15:30:00 15:30:00 [facility] 2021-01-29 2021-01-29 Emergency Fish, Jamila [facility] 1.2.840.114 [id number] Univers 22:06:00 23:25:00 Cullen 350.1.13.10 i ty of [place].2.7.2.686 [place] [phone] [facility] [address] 2021-01-29 2021-01-29 Routine [facility] 1.2.866.697 [id number] Univers 13:29:22 14:23:00 Eric N 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 350.1.13.10 i ty of Visit [facility] 4.2.7.2.686 Marty as MATERNAL [phone] [address] 2021-01-29 2021-01-29 [facility] [id number] Univers 13:45:00 13:45:00 ERIC ity [facility] 2021-01-29 2021-01-29 Telephone [facility] 1.2.840.114 [id number] Univers 00:00:00 00:00:00 Eric N 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 350.1.13.10 it y of [facility]ION[facility] 4.2.7.2.686 Marty as MATERNAL [phone] [facility] & CHILD [address] [place] [address] 2021-01-29 2021-01-29 Nurse ADRIÁN Quezada 1.2.840.114 [id number] Univers 00:00:00 00:00:00 Triage Ellie AVALOS 350.1.13.10 ity of [facility] 42.7.2.686 Marty as [phone] [facility] [address] 2021-01-29 2021-01-29 Orders Doctor ADRIÁN 1.2.840.114 [id number] Univers 00:00:00 00:00:00 Only Unassigned, BAILEY 350.1.13.10 ity of [place] [facility] 4.2.7.2.686 Marty as [phone] [facility] [address] 2021-01-21 2021-01-21 Outpatient R [facility] [id number] Univers 11:00:00 11:00:00 ity of [facility] 2021-01-21 2021-01-21 Telemedici Faculty, Poncho [facility] 1.2.840.114 [id number] Univers 09:02:46 09:17:46 ne Visit Julian Elena 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 350.1.13. 10 ity of [facility] 4.2.7.2.686 Marty as MATERNAL [phone] [address] 2021-01-18 2021-01-18 Telephone EmiliGARRYOWEN, UTANTONELLA 1.2.840.114 [id number] Univers 00:00:00 00:00:00 Eric Hammond 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 350.1.13.10 it y of [facility] 4.2.7.2.686 Marty as MATERNAL [id number] [address] 2021-01-15 2021-01-15 [facility] [id number] Univers 10:00:00 10:00:00 ERIC itcorona [facility] 2021-01-15 2021-01-15 Telephone [facility] 1.2.840.114 [id number] Univers 00:00:00 00:00:00 Eric Hammond 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 350.1.13.10 it y of [facility] 4.2.7.2.686 [place] as MATERNAL [phone] Med ical & CHILD 107 [facility] 2021-01-08 2021-01-08 Nurse Visit, [facility] Nurse [facility] 1.2 .840.114 [id number] Univers 10:03:31 10:18:41 Visit Eric Mock 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 350.1.13.10 ity of [facility] 4.2.7.2.686 Marty as MATERNAL [phone] Med ical & CHILD [address] [place] [address] 2021-01-08 2021-01-08 Outpatient R [facility] [id number] Univers 10:00:00 10:00:00 ity [facility] 2021-01-03 2021-01-03 Rn Bariatric Lab, [facility] 1.2.840. 114 [id number] Univers 08:59:03 10:31:23 Visit Eric Mock 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 350.1.13.10 ity of [facility] 4.2.7.2.686 Marty as MATERNAL [phone] Med ical & CHILD [address] [place] [address] 2021-01-03 2021-01-03 Outpatient R [facility] [id number] Univers 08:30:00 08:30:00 ity [facility] 2021-01-02 2021-01-02 Outpatient R [facility] [id number] Univers 10:30:00 10:30:00 [facility] 2021-01-01 2021-01-01 [facility] [id number] Univers 12:45:00 12:45:00 ERIC [facility] 2021-01-01 2021-01-01 Routine [facility] 1.2.643.833 [id number] Univers 08:34:05 09:19:16 Eric Hammond 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 350.1.13.10 i ty of Visit REGIONAL 4.2.7.2.686 Marty as MATERNAL [phone] Med ical & CHILD [address] [facility] 2021-01-01 2021-01-01 Outpatient R EMILI [facility] [id number] Univers 08:45:00 08:45:00 ERIC anglin [facility] 2020-12-26 2020-12-26 Nurse Visit, Ruperto Nurse [facility] 1.2 .840.114 [id number] Univers 09:32:52 10:04:57 Visit Eric Mock 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 350.1.13.10 ity of [facility] 4.2.7.2.686 Marty as MATERNAL [phone] [facility] & CHILD [address] [place] [address] 2020-12-26 2020-12-26 Outpatient R [facility] [id number] Univers 09:30:00 09:30:00 ity [facility] 2020-12-24 2020-12-24 Outpatient R [facility] [id number] Univers 15:00:00 15:00:00 ity [facility] 2020-12-24 2020-12-24 Telemedici Faculty, Poncho [facility] 1.2.840.114 [id number] Univers 08:59:50 09:14:50 ne Visit Kandi Reid 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 350.1.13.10 ity of [facility] 4.2.7.2.686 Marty as MATERNAL [phone] [facility] & CHILD [address] [place] [address] 2020-12-21 2020-12-21 Outpatient MAICO DIETRICH [facility] [id number] Univers 11:15:00 11:15:00 ity [facility] 2020-12-21 2020-12-21 Telephone Emili [facility] 1.2.840.114 [id number] Univers 00:00:00 00:00:00 Eric Hammond 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 350.1.13.10 it y of [facility] 4.2.7.2.686 Marty as MATERNAL [phone] [facility] & CHILD [address] [place] [address] 2020-12-19 2020-12-19 [facility] 1.2 .840.114 [id number] Univers 09:52:56 10:23:27 Visit Eric Mock 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 350.1.13.10 ity of [facility] 4.2.7.2.686 Marty as MATERNAL [phone] [facility] & CHILD [address] [place] [address] 2020-12-19 2020-12-19 Outpatient R [facility] [id number] Univers 09:30:00 09:30:00 ity [facility] 2020-12-18 2020-12-18 Orders Doctor ADRIÁN 1.2.840.114 [id number] Univers 00:00:00 00:00:00 Only Unassigned, BAILEY 350.1.13.10 ity of [place] [facility] 4.2.7.2.686 Marty as [phone] [facility] [address] 2020-12-15 2020-12-15 Nurse ADRIÁN Quezada 1.2.840.114 [id number] Univers 00:00:00 00:00:00 Triage Ellierubin AVALOS 350.1.13.10 ity of [facility] 4.2.7.2.686 Marty as [phone] [facility] [address] [place] 2020-12-12 2020-12-12 Nurse Visit, PonchoRmchp Nurse [facility] 1.2 .840.114 [id number] Univers 10:18:52 10:44:10 Visit Eric Mock 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 350.1.13.10 ity of [facility] 4.2.7.2.686 Marty as MATERNAL [phone] [address] 2020-12-12 2020-12-12 Outpatient R [facility] [id number] Univers 10:00:00 10:00:00 ity [facility] 2020-12-12 2020-12-12 Rn [facility]ric [facility]trasound, [facility] 1.2 .840.114 [id number] Univers 09:28:22 09:58:22 Visit Kahtryn Fry 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 350.1.13.10 ity of [place] Whitten [facility] 4.2.7.2.686 [place] Tammy Ortiz MATERNAL [phone] Medical & CHILD [address] [facility] 2020-12-10 2020-12-10 Outpatient R CANDICE [facility] [id number] Univers 08:30:00 08:30:00 ROBERT anglin [facility] 2020-12-05 2020-12-05 Routine Emili [facility] 1.2.012.409 [id number] Univers 08:24:48 09:04:09 Eric Hammond 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 350.1.13.10 i ty of Visit REGIONAL 4.2.7.2.686 Marty as MATERNAL [id number] [facility] & CHILD [address] [place] [address] 2020-12-05 2020-12-05 Outpatient R EMILI [facility] [id number] Univers 08:30:00 08:30:00 ERIC anglin [facility] 2020-12-05 2020-12-05 Rn Bariatric Ultrasound, Margie [facility] 1.2 .840.114 [id number] Univers 07:59:46 08:24:35 Visit Kathryn Fry 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 350.1.13.10 ity of [place] Whitten [facility] 4.2.7.2.686 [place] Severo Mcclellan MATERNAL [phone] Medical & CHILD [address] [place] [address] 2020-12-03 2020-12-03 Telephone Emili [facility] 1.2.840.114 [id number] Univers 00:00:00 00:00:00 Eric Hammond 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 350.1.13.10 it y of [facility] 4.2.7.2.686 Marty as MATERNAL [phone] [facility] & CHILD [address] [place] [address] 2020-11-29 2020-11-29 Outpatient Ruben MOCK [facility] [id number] Univers 08:45:00 08:45:00 ERIC anglin [facility] 2020-11-28 2020-11-28 Nurse Visit, Ruperto Nurse [facility] 1.2 .840.114 [id number] Univers 09:01:14 09:28:22 Visit Eric Mock 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 350.1.13.10 ity of [facility] 4.2.7.2.686 Marty as MATERNAL [phone] [facility] & CHILD [address] [place] [address] 2020-11-28 2020-11-28 Outpatient R EMILI [facility] [id number] Univers 08:30:00 08:30:00 ERIC anglin [facility] 2020-11-22 2020-11-22 Rn [facility]ariatric Ultrasound, [facility] 1.2 .840.114 [id number] Univers 08:53:19 10:08:19 Visit Emmanuel Lepe 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 350.1.13.10 ity of [facility] 4.2.7.2.686 Marty as MATERNAL [phone] Med ical & CHILD [address] [place] [address] 2020-11-22 2020-11-22 Outpatient P [facility] [id number] Univers 08:45:00 08:45:00 ity [facility] 2020-11-21 2020-11-21 Nurse [facility], [facility] 1.2 .840.114 [id number] Univers 08:53:59 09:10:18 Visit Eric Mock 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 350.1.13.10 ity of [facility] 4.2.7.2.686 Marty as MATERNAL [phone] Med ical & CHILD [address] [place] [address] 2020-11-21 2020-11-21 Outpatient R EMILI [facility] [id number] Univers 08:30:00 08:30:00 ERIC anglin [facility] 2020-11-14 2020-11-14 Rn [facility]ariatric Ultrasound, [facility] 1.2 .840.114 [id number] Univers 08:56:46 09:26:46 Visit Kathryn Fry 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 350.1.13.10 ity of [place] [facility] 4.2.7.2.686 [place] MATERNAL [phone] [facility] ical & CHILD [address] [place] [address] 2020-11-14 2020-11-14 Routine Ang [facility] 1.2.840.114 [id number] Univers 08:23:13 08:38:13 Kathryn Miranda 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 350.1.13.10 ity of Visit [facility] 4.2.7.2.686 Marty as MATERNAL [id number] Med ical & CHILD [address] [place] [address] 2020-11-14 2020-11-14 Outpatient R [facility] [id number] Univers 08:30:00 08:30:00 ity [facility] 2020-11-13 2020-11-13 Outpatient R [facility] [id number] Univers 17:20:00 17:20:00 ity [facility] 2020-11-13 2020-11-13 Telephone Emili NJANTONELLA 1.2.840.114 [id number] Univers 00:00:00 00:00:00 Eric N 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 350.1.13.10 it y of [facility] 4.2.7.2.686 Marty as MATERNAL [phone] Med ical & CHILD [address] [place] [address] 2020-11-07 2020-11-07 [facility]ine [facility] 1.2.254.271 [id number] Univers 10:03:48 10:53:52 Eric N 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 350.1.13.10 i ty of Visit REGIONAL 4.2.7.2.686 Marty as MATERNAL [phone] Med ical & CHILD [address] [place] [address] 2020-11-07 2020-11-07 [facility]ine [facility] 1.2.234.231 [id number] 10:03:48 10:53:52 Eric N 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 350.1.13.10 Visit REGIONAL 4.2.7.2.686 MATERNAL [phone] & CHILD [address] [place] [address] 2020-11-07 2020-11-07 [facility] [id number] Univers 09:15:00 09:15:00 ERIC anglin [facility] 2020-11-06 2020-11-06 Out[facility] [id number] Univers 14:15:00 14:15:00 ERIC anglin [facility] 2020-11-05 2020-11-05 Telephone [facility] 1.2.840.114 [id number] Univers 00:00:00 00:00:00 Eric N 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 350.1.13.10 it y of [facility] 4.2.7.2.686 Marty as MATERNAL [phone] [facility] ical & CHILD [address] [place] [address] 2020-10-31 2020-10-31 Telephone SAJI Mock 1.2.840.114 [id number] Univers 00:00:00 00:00:00 Eric Hammond 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 350.1.13.10 it y of [facility] 4.2.7.2.686 Marty as MATERNAL [phone] [facility] ical & CHILD [address] [place] [address] 2020-10-31 2020-10-31 Telephone Emili [facility] 1.2.840.114 [id number] Univers 00:00:00 00:00:00 Eric Hammond 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 350.1.13.10 it y of [facility] 4.2.7.2.686 Marty as MATERNAL [phone] [facility] & CHILD [address] [place] [address] 2020-10-30 2020-10-30 Telephone Emili [facility] 1.2.840.114 [id number] Univers 00:00:00 00:00:00 Eric Hammond 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 350.1.13.10 it y of [facility] 4.2.7.2.686 Marty as MATERNAL [phone] [facility] & CHILD [address] [place] [address] 2020-10-29 2020-10-29 Emergency Cynthia [facility] 1.2.404.904 [id number] Univers 15:24:00 18:12:00 Monahans Cullen 350.1.13.10 ity [facility] 4.2.7.2.686 [place] [facility] [phone] [address] 2020-10-29 2020-10-29 Outpatient R [facility] [id number] Univers 09:30:00 09:30:00 ity of [facility] 2020-10-29 2020-10-29 Telemedici Faculty, Poncho [facility] 1.2.840.114 [id number] Univers 08:09:37 08:24:37 ne Visit Brandon Whitten 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 350.1.13.10 ity of [facility] 4.2.7.2.686 Marty as MATERNAL [phone] [facility] & CHILD [address] [place] [address] 2020-10-29 2020-10-29 Telephone Emili [facility] 1.2.840.114 [id number] Univers 00:00:00 00:00:00 Eric N 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 350.1.13.10 it y of [facility] 4.2.7.2.686 Marty as MATERNAL [id number] [facility] ical & CHILD [address] [place] [address] 2020-10-29 2020-10-29 Orders Doctor ADRIÁN 1.2.840.114 [id number] Univers 00:00:00 00:00:00 Only Unassigned, BAILEY 350.1.13.10 ity of [place] [facility] 4.2.7.2.686 Marty as [phone] [address] 2020-10-28 2020-10-28 [facility]phone [facility] 1.2.002.772 [id number] Univers 00:00:00 00:00:00 Rhonda Howe 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 350.1.13.10 ity of [facility] 4.2.7.2.686 Marty as MATERNAL [phone] [facility] & CHILD [address] [place] [address] 2020-10-26 2020-10-26 Telephone [facility] 1.2.840.114 [id number] Univers 00:00:00 00:00:00 Eric Hammond 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 350.1.13.10 it y of [facility] 4.2.7.2.686 Marty as MATERNAL [phone] [facility] & CHILD [address] [place] [address] 2020-10-24 2020-10-24 Telephone [facility] 1.2.840.114 [id number] Univers 00:00:00 00:00:00 Eric Manish 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 350.1.13.10 it y of [facility] 4.2.7.2.686 Marty as MATERNAL [phone] [facility] ical & CHILD [address] [place] [address] 2020-10-22 2020-10-22 Telephone [facility] 1.2.288.737 [id number] Univers 00:00:00 00:00:00 Rhonda Howe 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 350.1.13.10 ity of [facility] 4.2.7.2.686 Marty as MATERNAL [phone] [facility] & CHILD [address] [place] [address] 2020-10-04 2020-10-04 Routine Risk, Eye-Ocmhb-Tr/High [facility] 1. 2.840.114 [id number] Univers 14:35:18 15:12:11 Rhonda Perez 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 350.1.13.10 ity of Visit [facility] 4.2.7.2.686 Marty as MATERNAL [id number] [facility] ical & CHILD [address] [place] [address] 2020-10-04 2020-10-04 Outpatient R [facility] [id number] Univers 14:30:00 14:30:00 ity of [facility] 2020-10-04 2020-10-04 Telephone [facility] 1.2.840.114 [id number] Univers 00:00:00 00:00:00 Eric Hammond 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 350.1.13.10 it y of [facility] 4.2.7.2.686 Marty as MATERNAL [phone] [facility] ical & CHILD [address] [place] [address] 2020-10-03 2020-10-03 Telephone [facility] 1.2.840.114 [id number] Univers 00:00:00 00:00:00 Eric Hammond 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 350.1.13.10 it y of [facility] 4.2.7.2.686 Marty as MATERNAL [id number] [facility] & CHILD [address] [place] [address] 2020-10-01 2020-10-01 Telephone [facility] 1.2.840.114 [id number] Univers 00:00:00 00:00:00 Eric Hammond 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 350.1.13.10 it y of [facility] 4.2.7.2.686 Marty as MATERNAL [phone] [facility] ical & CHILD [address] [place] [address] 2020-09-25 2020-09-25 Orders Doctor SAMPSON 1.2.840.114 [id number] Univers 00:00:00 00:00:00 Only Unassigned, BAILEY 350.1.13.10 ity of [place] [facility] 4.2.7.2.686 Marty as [phone] [address] 2020-09-13 2020-09-13 Routine Risk, Dhd-Hhzsq-Us/High [facility] 1. 2.840.114 [id number] Univers 15:33:54 16:21:30 Onelia Price 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 350.1.13.10 ity of Visit [facility]AL 4.2.7.2.686 Marty as MATERNAL [phone] [facility] & [address] 2020-09-13 2020-09-13 Outpatient R [facility] [id number] Univers 15:30:00 15:30:00 ity [facility] 2020-09-06 2020-09-06 Outpatient R [facility] [id number] Univers 15:00:00 15:00:00 ity [facility] 2020-09-03 2020-09-03 Telephone Emili NJANTONELLA 1.2.840.114 [id number] Univers 00:00:00 00:00:00 Eric Hammond 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 [id number] it y of REGIONAL [id number] Marty as MATERNAL [phone] [address] 2020-08-31 2020-08-31 [facility] .840.114 [id number] Univers 15:11:17 15:41:17 Visit Johnna Chowdhury 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 350.1. 13.10 ity of REGIONAL [id number] Marty as MATERNAL [phone] [facility] & [address] 2020-08-31 2020-08-31 Outpatient P [facility] [id number] Univers 15:00:00 15:00:00 ity [facility] 2020-08-31 2020-08-31 Abstract Emili NJANTONELLA 1.2.840.114 [id number] Univers 00:00:00 00:00:00 Eric Hammond 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 [id number] it y of REGIONAL [id number] Marty as MATERNAL [phone] [address] 2020-08-31 2020-08-31 Telephone Emili NJANTONELLA 1.2.840.114 [id number] Univers 00:00:00 00:00:00 Eric Hammond 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 [id number] it y of REGIONAL [id number] Marty as MATERNAL [phone] [facility] ical & CHILD [address] [place] [address] 2020-08-29 2020-08-29 Telephone Emili NJANTONELLA 1.2.840.114 [id number] Univers 00:00:00 00:00:00 Eric Hammond 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 [id number] it y of REGIONAL [id number] Marty as MATERNAL [phone] [facility] ical & CHILD [address] [place] [address] 2020-08-27 2020-08-27 [facility] 1.2.840.114 [id number] Univers 00:00:00 00:00:00 Eric N 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 [id number] it y of REGIONAL [id number] Marty as MATERNAL [phone] [facility] & CHILD [address] [place] [address] 2020-08-22 2020-08-22 Telephone Emili [facility] [id number] Univers 00:00:00 00:00:00 Eric Hammond 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 350.1.13.10 it y of REGIONAL 4.2.7.2.686 Marty as MATERNAL [id number] [facility] & CHILD [address] [place] [address] 2020-08-21 2020-08-21 [facility] [id number] Univers 14:51:44 16:19:05 Eric Hammond 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 350.1.13.10 i ty of Visit REGIONAL 4.2.7.2.686 Marty as MATERNAL [id number] [facility] ical & CHILD [address] [place] [address] 2020-08-21 2020-08-21 Outpatient R EMILI [facility] [id number] Univers 14:00:00 14:00:00 ERIC anglin [facility] 2020-08-21 2020-08-21 Orders Doctor SAMPSON 1.2.840.114 [id number] Univers 00:00:00 00:00:00 Only Unassigned, BAILEY 350.1.13.10 ity of [place] [facility] 4.2.7.2.686 Marty as [id number] [address] 2020-08-14 2020-08-14 Outpatient R [facility] [id number] Univers 09:15:00 09:15:00 ity of [facility] 2019-10-28 2019-10-28 Outpatient Raju_P MMG MMG [id number] [place] 02:06:00 02:06:00 0327 [facility] 2019-03-02 2019-03-02 Orders Doctor ADRIÁN 1.2.840.114 [id number] Univers 00:00:00 00:00:00 Only Unassigned, BAILEY 350.1.13.10 ity of [place] [facility] 4.2.7.2.686 Marty as [id number] [address] Results Test Description Test Time Test Comments Results Result Comments Source RHO (D) IMMUNE GLOBULIN 2022-09-11 16:36:07 Test Item Value Reference Range Interpretation Comme nts RHIG CANDIDATE? (test code = No- see comment Patient is not a candidate for RhIg- 5055) Patient is Rh P ositive.Performed at [facility] Laboratory [facility] Blood [address] [place], [place] [address]Toll Free: [phone] A No. [id number] [facility] IMM[facility]E [id number] 16:36:07 Test Item Value Reference Range Interpretation Comments RHIG CANDIDATE? No- see comment Patient i s not a (test code = candidate for R hIg- 5055) Patient is Rh Positive.Perfor med at [facility] Laboratory [facility] Blood [address] [place], [place] [address]Toll Free: [phone] A No. [id number] [facility] StationCBC with [id number] 13:09:16 Test Item Value Reference Range Interpretation Comments WBC (test code = 8.41 See_Comment [Automated 5018-2) message] The sy stem which generated this result transmitted reference range : 4.30 - 11.10 10*3/?L. The reference range was not used to interpret this result as normal/abnormal . RBC (test code = 4.93 See_Comment [Automated 410-8) message] The sy stem which generated this result transmitted reference range : 3.93 - 5.25 10*6/?L. The reference range was not used to interpret this result as normal/abnormal . HGB (test code = 9.2 g/dL 11.6-15.0 L 718-7) HCT (test code = 31.0 % 35.7-45.2 L 4544-3) MCV (test code = 62.9 fL 80.6-95.5 L 787-2) MCH (test code = 18.7 pg 25.9-32.8 L 785-6) MCHC (test code = 29.7 g/dL 31.6-35.1 L 786-4) RDW-SD (test code = 40.0 fL 39.0-49.9 95968-3) RDW-CV (test code = 18.6 % 12.0-15.5 H 788-0) PLT (test code = 272 See_Comment [Automated 777-3) message] The sy stem which generated this result transmitted reference range : 166 - 358 10*3/ ?L. The reference r eliezer was not used to interpret this result as normal/abnormal . MPV (test code = 9.8 fL 9.5-12.9 29183-8) NRBC/100 WBC (test 0.0 See_Comment [Automat ed code = 7888713064) message] The system which generated this result transmitted reference range : 0.0 - 10.0 /100 WBCs. The refer ence range was not u sed to interpret th is result as normal/abnormal . NRBC x10^3 (test code See_Comment [Auto mated = 0377518087) message] The s ystem which generated this result transmitted reference range : 10*3/?L. The reference range was not used to interpret this result as normal/abnormal . GRAN MAT (NEUT) % 68.7 % (test code = 770-8) IMM GRAN % (test code 0.60 % = 6241469325) LYMPH % (test code = 24.4 % 736-9) MONO % (test code = 5.4 % 5905-5) EOS % (test code = 0.5 % 713-8) BASO % (test code = 0.4 % 706-2) GRAN MAT x10^3(ANC) 5.79 10*3/uL 1.88-7.09 (test code = 3190440158) IMM GRAN x10^3 (test 0.05 10*3/uL 0.00-0.06 code = 5159487405) LYMPH x10^3 (test code 2.05 10*3/uL 1.32-3.29 = 731-0) MONO x10^3 (test code 0.45 10*3/uL 0.33-0.92 = 742-7) EOS x10^3 (test code = 0.04 10*3/uL 0.03-0.39 711-2) BASO x10^3 (test code 0.03 10*3/uL 0.01-0.07 = 704-7) Lab Interpretation Abnormal (test code = 30413-0) General acute hospital with [id number] 13:09:16 Test Item Value Reference Range Interpretation Comments WBC (test code = 8.41 See_Comment [Automated 5890-2) message] The sy stem which generated this result transmitted reference range : 4.30 - 11.10 10*3/?L. The reference range was not used to interpret this result as normal/abnormal . RBC (test code = 4.93 See_Comment [Automated 749-8) message] The sy stem which generated this result transmitted reference range : 3.93 - 5.25 10*6/?L. The reference range was not used to interpret this result as normal/abnormal . HGB (test code = 9.2 g/dL 11.6-15.0 L 718-7) HCT (test code = 31.0 % 35.7-45.2 L 4544-3) MCV (test code = 62.9 fL 80.6-95.5 L 787-2) MCH (test code = 18.7 pg 25.9-32.8 L 785-6) MCHC (test code = 29.7 g/dL 31.6-35.1 L 786-4) RDW-SD (test code = 40.0 fL 39.0-49.9 72672-9) RDW-CV (test code = 18.6 % 12.0-15.5 H 788-0) PLT (test code = 272 See_Comment [Automated 777-3) message] The sy stem which generated this result transmitted reference range : 166 - 358 10*3/ ?L. The reference r eliezer was not used to interpret this result as normal/abnormal . MPV (test code = 9.8 fL 9.5-12.9 04934-8) NRBC/100 WBC (test 0.0 See_Comment [Automat ed code = 0625544694) message] The system which generated this result transmitted reference range : 0.0 - 10.0 /100 WBCs. The refer ence range was not u sed to interpret th is result as normal/abnormal . NRBC x10^3 (test code See_Comment [Auto mated = 9191571723) message] The s ystem which generated this result transmitted reference range : 10*3/?L. The reference range was not used to interpret this result as normal/abnormal . GRAN MAT (NEUT) % 68.7 % (test code = 770-8) IMM GRAN % (test code 0.60 % = 3871313642) LYMPH % (test code = 24.4 % 736-9) MONO % (test code = 5.4 % 5905-5) EOS % (test code = 0.5 % 713-8) BASO % (test code = 0.4 % 706-2) GRAN MAT x10^3(ANC) 5.79 10*3/uL 1.88-7.09 (test code = 9611100330) IMM GRAN x10^3 (test 0.05 10*3/uL 0.00-0.06 code = 0041188595) LYMPH x10^3 (test code 2.05 10*3/uL 1.32-3.29 = 731-0) MONO x10^3 (test code 0.45 10*3/uL 0.33-0.92 = 742-7) EOS x10^3 (test code = 0.04 10*3/uL 0.03-0.39 711-2) BASO x10^3 (test code 0.03 10*3/uL 0.01-0.07 = 704-7) Lab Interpretation Abnormal (test code = 95259-4) [facility] StationPRENATAL WORKUP, BLOOD [id number] 17:00:38 Test Item Value Reference Range Interpretation Comments ABO & RH (test code O Positive Performe d at [facility] = 20) Laboratory Serv [facility] [address] [place], [place] [address]Toll Free: [phone] A No. [id number] IAT (test code = Negative Performed a t [facility] 1185) Laboratory Serv [facility] [address] [place], [place] [address]Toll Free: [phone] A No. [id number] General acute hospital WITH [id number] 16:26:18 Test Item Value Reference Range Interpretation Comments WBC (test code = 8.45 See_Comment [Automated 7165-2) message] The sy stem which generated this result transmitted reference range : 4.30 - 11.10 10*3/?L. The reference range was not used to interpret this result as normal/abnormal . RBC (test code = 5.01 See_Comment [Automated 089-8) message] The sy stem which generated this result transmitted reference range : 3.93 - 5.25 10*6/?L. The reference range was not used to interpret this result as normal/abnormal . HGB (test code = 9.3 g/dL 11.6-15.0 L 718-7) HCT (test code = 32.1 % 35.7-45.2 L 4544-3) MCV (test code = 64.1 fL 80.6-95.5 L 787-2) MCH (test code = 18.6 pg 25.9-32.8 L 785-6) MCHC (test code = 29.0 g/dL 31.6-35.1 L 786-4) RDW-SD (test code = 40.9 fL 39.0-49.9 09020-7) RDW-CV (test code = 18.7 % 12.0-15.5 H 788-0) PLT (test code = 256 See_Comment [Automated 207-3) message] The sy stem which generated this result transmitted reference range : 166 - 358 10*3/ ?L. The reference r leiezer was not used to interpret this result as normal/abnormal . MPV (test code = 9.4 fL 9.5-12.9 L 79620-8) NRBC/100 WBC (test 0.0 See_Comment [Automat ed code = 2209932698) message] The system which generated this result transmitted reference range : 0.0 - 10.0 /100 WBCs. The refer ence range was not u sed to interpret th is result as normal/abnormal . NRBC x10^3 (test code See_Comment [Auto mated = 8552277756) message] The s ystem which generated this result transmitted reference range : 10*3/?L. The reference range was not used to interpret this result as normal/abnormal . GRAN MAT (NEUT) % 75.4 % (test code = 770-8) IMM GRAN % (test code 0.70 % = 0823145015) LYMPH % (test code = 19.2 % 736-9) MONO % (test code = 4.1 % 5905-5) EOS % (test code = 0.4 % 713-8) BASO % (test code = 0.2 % 706-2) GRAN MAT x10^3(ANC) 6.37 10*3/uL 1.88-7.09 (test code = 2920111276) IMM GRAN x10^3 (test 0.06 10*3/uL 0.00-0.06 code = 5756120856) LYMPH x10^3 (test code 1.62 10*3/uL 1.32-3.29 = 731-0) MONO x10^3 (test code 0.35 10*3/uL 0.33-0.92 = 742-7) EOS x10^3 (test code = 0.03 10*3/uL 0.03-0.39 711-2) BASO x10^3 (test code 0.01-0.07 = 704-7) Lab Interpretation Abnormal (test code = 97670-5) General acute hospital WITH [id number] 16:26:18 Test Item Value Reference Range Interpretation Comments WBC (test code = 8.45 See_Comment [Automated 6690-2) message] The sy stem which generated this result transmitted reference range : 4.30 - 11.10 10*3/?L. The reference range was not used to interpret this result as normal/abnormal . RBC (test code = 5.01 See_Comment [Automated 789-8) message] The sy stem which generated this result transmitted reference range : 3.93 - 5.25 10*6/?L. The reference range was not used to interpret this result as normal/abnormal . HGB (test code = 9.3 g/dL 11.6-15.0 L 718-7) HCT (test code = 32.1 % 35.7-45.2 L 4544-3) MCV (test code = 64.1 fL 80.6-95.5 L 787-2) MCH (test code = 18.6 pg 25.9-32.8 L 785-6) MCHC (test code = 29.0 g/dL 31.6-35.1 L 786-4) RDW-SD (test code = 40.9 fL 39.0-49.9 48704-8) RDW-CV (test code = 18.7 % 12.0-15.5 H 788-0) PLT (test code = 256 See_Comment [Automated 777-3) message] The sy stem which generated this result transmitted reference range : 166 - 358 10*3/ ?L. The reference r eliezer was not used to interpret this result as normal/abnormal . MPV (test code = 9.4 fL 9.5-12.9 L 33133-5) NRBC/100 WBC (test 0.0 See_Comment [Automat ed code = 8219858409) message] The system which generated this result transmitted reference range : 0.0 - 10.0 /100 WBCs. The refer ence range was not u sed to interpret th is result as normal/abnormal . NRBC x10^3 (test code See_Comment [Auto mated = 3681199893) message] The s ystem which generated this result transmitted reference range : 10*3/?L. The reference range was not used to interpret this result as normal/abnormal . GRAN MAT (NEUT) % 75.4 % (test code = 770-8) IMM GRAN % (test code 0.70 % = 6695702920) LYMPH % (test code = 19.2 % 736-9) MONO % (test code = 4.1 % 5905-5) EOS % (test code = 0.4 % 713-8) BASO % (test code = 0.2 % 706-2) GRAN MAT x10^3(ANC) 6.37 10*3/uL 1.88-7.09 (test code = 8941503518) IMM GRAN x10^3 (test 0.06 10*3/uL 0.00-0.06 code = 0167184183) LYMPH x10^3 (test code 1.62 10*3/uL 1.32-3.29 = 731-0) MONO x10^3 (test code 0.35 10*3/uL 0.33-0.92 = 742-7) EOS x10^3 (test code = 0.03 10*3/uL 0.03-0.39 711-2) BASO x10^3 (test code 0.01-0.07 = 704-7) Lab Interpretation Abnormal (test code = 29527-1) [facility] Station[facility] UR[facility] W/O SPECIFIC [id number] 19:58:00 Test Item Value Reference Range Interpretation Comments POCT PH U (test code = 3254) n/a 5-8 POCT U LEUK EST (test code = n/a Negative - Negative 3263) POCT U NIT (test code = 3262) n/a Negative - Negative POCT U PROT (test code = 3259) Negative Negative - Negative POCT U GLU (test code = 3256) Normal Negative - Negative POCT U KETONE (test code = 3258) n/a Negative - Negative POCT U BLD (test code = 3257) n/a Negative - Negative [facility] StationADC OR ROXANN ONLY - [id number] 11:38:01 Test Item Value Reference Range Interpretation Comments RPR (Qualitative) (test code = Nonreactive Nonreactive 45903-4) Lab Interpretation (test code = Normal 85383-1) [facility] StationHIV 1/2 AG-AB WITH [id number] 08:22:15 Test Item Value Reference Range Interpretation Comments HIV 0.14 Negative Semi-quantitative (test code = 54639-9) NORM (test code = Non-reactive for HIV-1 NORM) antigen and HIV-1/HIV-2 antibodies. ?No laboratory evidence of HIV infection. ?Repeat in 2-4 weeks if acute HIV infection is suspected. [facility] StationType and Screen - ONCE [id number] 07:35:21 Test Item Value Reference Range Interpretation Comments ABO & RH (test code O Positive Performe d at [facility] = 20) Laboratory Serv [facility] [address] [place], [place] [address]Toll Free: [phone] A No. [id number] IAT (test code = Negative Performed a t [facility] 1185) Laboratory Serv [facility] [address] [place], [place] [address]Toll Free: [phone] A No. [id number] [facility] StationCBC WITH [id number] 07:08:09 Test Item Value Reference Range Interpretation Comments WBC (test code = 10.11 See_Comment [Automated 8375-2) message] The sy stem which generated this result transmitted reference range : 4.30 - 11.10 10*3/?L. The reference range was not used to interpret this result as normal/abnormal . RBC (test code = 4.81 See_Comment [Automated 479-8) message] The sy stem which generated this result transmitted reference range : 3.93 - 5.25 10*6/?L. The reference range was not used to interpret this result as normal/abnormal . HGB (test code = 9.0 g/dL 11.6-15.0 L 718-7) HCT (test code = 30.4 % 35.7-45.2 L 4544-3) MCV (test code = 63.2 fL 80.6-95.5 L 787-2) MCH (test code = 18.7 pg 25.9-32.8 L 785-6) MCHC (test code = 29.6 g/dL 31.6-35.1 L 786-4) RDW-SD (test code = 39.1 fL 39.0-49.9 13143-4) RDW-CV (test code = 17.8 % 12.0-15.5 H 788-0) PLT (test code = 293 See_Comment [Automated 487-3) message] The sy stem which generated this result transmitted reference range : 166 - 358 10*3/ ?L. The reference r eliezer was not used to interpret this result as normal/abnormal . MPV (test code = 10.2 fL 9.5-12.9 88571-9) NRBC/100 WBC (test 0.0 See_Comment [Automat ed code = 0765761660) message] The system which generated this result transmitted reference range : 0.0 - 10.0 /100 WBCs. The refer ence range was not u sed to interpret th is result as normal/abnormal . NRBC x10^3 (test code See_Comment [Auto mated = 5719719684) message] The s ystem which generated this result transmitted reference range : 10*3/?L. The reference range was not used to interpret this result as normal/abnormal . GRAN MAT (NEUT) % 70.4 % (test code = 770-8) IMM GRAN % (test code 0.80 % = 9781844186) LYMPH % (test code = 22.0 % 736-9) MONO % (test code = 5.6 % 5905-5) EOS % (test code = 0.7 % 713-8) BASO % (test code = 0.5 % 706-2) GRAN MAT x10^3(ANC) 7.12 10*3/uL 1.88-7.09 H (test code = 3901121163) IMM GRAN x10^3 (test 0.08 10*3/uL 0.00-0.06 H code = 3307761799) LYMPH x10^3 (test code 2.22 10*3/uL 1.32-3.29 = 731-0) MONO x10^3 (test code 0.57 10*3/uL 0.33-0.92 = 742-7) EOS x10^3 (test code = 0.07 10*3/uL 0.03-0.39 711-2) BASO x10^3 (test code 0.05 10*3/uL 0.01-0.07 = 704-7) Lab Interpretation Abnormal (test code = 91283-2) [facility] URINALYSIS W/O SPECIFIC [id number] 15:51:00 Test Item Value Reference Range Interpretation Comments POCT PH U (test code = 3254) 6 mg/dl 5-8 POCT U LEUK EST (test code = Trace Negative - Negative 3263) POCT U NIT (test code = 3262) negative Negative - Negative POCT U PROT (test code = 3259) Trace Negative - Negative POCT U GLU (test code = 3256) negative Negative - Negative POCT U KETONE (test code = 3258) 1+ Negative - Negative POCT U BLD (test code = 3257) negative Negative - Negative [facility] URINALYSIS W/O SPECIFIC [id number] 15:47:00 Test Item Value Reference Range Interpretation Comments POCT PH U (test code = 3254) 6 mg/dl 5-8 POCT U LEUK EST (test code = Trace Negative - Negative 3263) POCT U NIT (test code = 3262) negative Negative - Negative POCT U PROT (test code = 3259) Trace Negative - Negative POCT U GLU (test code = 3256) negative Negative - Negative POCT U KETONE (test code = 3258) 1+ Negative - Negative POCT U BLD (test code = 3257) negative Negative - Negative [facility] URINALYSIS W/O SPECIFIC [id number] 15:04:00 Test Item Value Reference Range Interpretation Comments [...] code = 3257) n/a Negative - Negative [facility] MOLECULAR [id number] 17:47:40 Test Item Value Reference Range Interpretation Comments POCT Molecular FluA (test code = Negative Negative 33010-7) POCT Molecular FluB (test code = Negative Negative 69993-4) Lab Interpretation (test code = Normal 75625-4) [facility] MOLECULAR [id number] 17:40:36 Test Item Value Reference Range Interpretation Comments POCT Molecular Strep (test code = Negative Negative 39201-7) Lab Interpretation (test code = Normal 84690-3) [facility] URINALYSIS W/O SPECIFIC [id number] 14:49:00 Test Item Value Reference Range Interpretation Comments POCT PH U (test code = 3254) 6 mg/dl 5-8 POCT U LEUK EST (test code = Negative Negative - Negative 3263) POCT U NIT (test code = 3262) Negative Negative - Negative POCT U PROT (test code = 3259) Negative Negative - Negative POCT U GLU (test code = 3256) Normal Negative - Negative POCT U KETONE (test code = 3258) Negative Negative - Negative POCT U BLD (test code = 3257) Negative Negative - Negative [facility] URINALYSIS W/O SPECIFIC [id number] 16:35:00 Test Item Value Reference Range Interpretation Comments POCT PH U (test code = 3254) 7 mg/dl 5-8 POCT U LEUK EST (test code = negative Negative - Negative 3263) POCT U NIT (test code = 3262) negative Negative - Negative POCT U PROT (test code = 3259) negative Negative - Negative POCT U GLU (test code = 3256) negative Negative - Negative POCT U KETONE (test code = 3258) negative Negative - Negative POCT U BLD (test code = 3257) Negative - Negative [facility] URINALYSIS W/O SPECIFIC [id number] 15:41:00 Test Item Value Reference Range Interpretation Comments [...] code = 3257) n/a Negative - Negative [facility] URINALYSIS W/O SPECIFIC [id number] 15:41:00 Test Item Value Reference Range Interpretation Comments [...] code = 3257) n/a Negative - Negative [facility] [id number] 21:58:00 Test Item Value Reference Range Interpretation [...] [facility] W/O SPECIFIC [id number] 21:58:00 Test Item Value Reference Range Interpretation [...] [facility] StationPO[facility] URIN[facility] W/O SPECIFIC [id number] 21:58:00 Test Item Value Reference Range Interpretation [...] [facility] StationURINALYSIS2022-09-09 22:00:08 Test Item Value Reference Range Interpretation Comments APPEARANCE (test code = Clear Clear 7220740612) COLOR (test code = Yellow Colorless A 6426786526) PH (test code = 4.8-8.0 9718297214) SP GRAVITY (test code = 1.003-1.035 3044348444) GLU U QUAL (test code = Negative Negative 1017705896) BLOOD (test code = Negative Negative 8608413717) KETONES (test code = Negative Negative 6084876549) PROTEIN (test code = Negative Negative 2887-8) UROBILIN (test code = Normal Normal 6632038293) BILIRUBIN (test code = Negative Negative 1665878276) NITRITE (test code = Negative Negative 2098200544) LEUK VALENTINE (test code = Negative Negative 8201852564) RBC/HPF (test code = See_Comment [Autom ated message] 6591591082) The system [employer] generated this result transmitted ref erence range: 0 - 3 HP F. The reference range was not used to int erpret this result as normal/abnormal . WBC/HPF (test code = See_Comment [Autom ated message] 7426234141) The system [employer] generated this result transmitted ref erence range: 0 - 5 HP F. The reference range was not used to int erpret this result as normal/abnormal . BACTERIA (test code = Few Negative A 4031611329) MUCOUS (test code = Slight Negative LPF A 7296862556) SQ EPITH (test code = HPF 2692091190) Lab Interpretation (test Abnormal code = 64397-7) [facility] StationAD [facility] OR [facility] ONLY - WET [id number] 21:45:14 Test Item Value Reference Range Interpretation Comments CLUE CELLS WET PREP (test code = Moderate None Seen HPF A 2386275271) BACTERIA WET PREP (test code = Few None Seen HPF A 7978061325) WBC WET PREP (test code = Few None Seen HPF A 2085340934) RBC WET PREP (test code = None Seen None Seen HPF 0866494683) TRICHOMONAS WET PREP (test code = None Seen None Seen HPF 8926863310) YEAST WET PREP (test code = Few None Seen HPF A 3034240775) Lab Interpretation (test code = Abnormal 22195-7) [facility] URINALYSIS W/O SPECIFIC [id number] 14:51:00 Test Item Value Reference Range Interpretation [...] code = 3257) n/a Negative - Negative [facility] [id number] 13:51:00 Test Item Value Reference Range Interpretation Comments POCT PREG (test code = 1605) Positive On board controls acceptable with C Yes Line (test code = 3574) POCT PREG LOT # (test code = 3575) POCT PREG TEST DATE (test code = 3576) [facility] URINALYSIS W/O SPECIFIC [id number] 13:51:00 Test Item Value Reference Range Interpretation Comments [...] code = 3257) n/a Negative - Negative [facility] [id number] 13:51:00 Test Item Value Reference Range Interpretation Comments POCT PREG (test code = 1605) Positive On board controls acceptable with C Yes Line (test code = 3574) POCT PREG LOT # (test code = 3575) POCT PREG TEST DATE (test code = 3576) [facility] UR[facility] W/O SPECIFIC [id number] 13:51:00 Test Item Value Reference Range Interpretation Comments [...] [facility]
[2022-09-13] MEDS ORDERED: KETOROLAC 30 MG/ML INJ ONE (14:49)
--- NOTE | 2022-09-13 14:58 | ER ---
Nurse's Notes [facility] Name: Deborah Torres Age: 27 yrs Sex: Female : 1995 Arrival Date: 09/13/2022 Time: 14:07 Bed 12 Private MD: Diagnosis: Low back pain;dental pain Presentation: 09/13 14:20 Chief complaint: Patient states: Dental pain and back spasms that began yesterday. Pt ss gave by 2 days ago and believes the pain medication she was receiving kept her pain at bay because it's much worse today. Coronavirus screen: Client denies travel out of the [place] in the last 14 days. Ebola Screen: Patient denies exposure to infectious person. Patient denies travel to an Ebola-affected area in the 21 days before illness onset. Initial Sepsis Screen: Does the patient meet any 2 criteria? No. Patient's initial sepsis screen is negative. Does the patient have a suspected source of infection? No. Patient's initial sepsis screen is negative. Risk Assessment: Do you want to hurt yourself or someone else? Patient reports no desire to harm self or others. Onset of symptoms was September 12, 2022. 14:20 Method Of Arrival: Ambulatory ss 14:20 Acuity: NORM 3 ss Historical: - Allergies: 14:22 HYDROCODONE; ss 14:22 PENICILLINS; ss 14:22 promethazine HCl; ss 14:22 Tape; ss - PMHx: 14:22 Anxiety; Asthma; Bipolar disorder; Depression; Hypertension; Migraines; Pre-eclampsia; ss Thyroid problem; - PSHx: 14:22 section; Tonsillectomy; ss - Immunization history:: Client reports having NOT received the Covid vaccine. - Social history:: Smoking status: Patient denies any tobacco usage or history of. Screenin:25 [facility] ED Fall Risk Assessment (Adult) History of falling in the last 3 months, ss including since admission No falls in past 3 months (0 pts). Abuse screen: Denies threats or abuse. Denies injuries from another. Nutritional screening: No deficits noted. Tuberculosis screening: Never had TB. Assessment: 14:25 General: Appears in no apparent distress. comfortable, Behavior is tearful. Denies ss fever. Pain: Complains of pain in dental pain, low back Pain currently is 10 out of 10 on a pain scale. Neuro: Level of Consciousness is awake, alert, obeys commands, Oriented to person, place, time, situation. Cardiovascular: Capillary refill < 3 seconds is brisk in bilateral fingers. Respiratory: Respiratory effort is even, unlabored. Derm: Skin is intact, is healthy with good turgor, Skin is pink, warm \T\ dry. normal. Musculoskeletal: Circulation, motion, and sensation intact. Range of motion: intact in all extremities. Vital Signs: 14:20 BP 153 / 80; Pulse 102; Resp 16; Temp 98.4(TE); Pulse Ox 100% on R/A; Height 5 ft. 4 ss in. (162.56 cm); Pain 10/10; ED Course: 14:07 Patient arrived in ED. mr 14:08 Robles Graham PA is PHCP. ada 14:08 Shawn Pollard MD is Attending Physician. [facility] 14:22 Triage completed. ss 14:22 Arm band placed on right wrist. ss 14:25 Patient has correct armband on for positive identification. ss 14:43 Deloris Cortez, ELÍAS is Primary Nurse. ss 15:17 No provider procedures requiring assistance completed. Patient did not have IV access ss during this emergency room visit. Administered Medications: 15:06 Drug: Ketorolac 30 mg Route: IM; Site: right gluteus; ss 15:09 Follow up: Response: Medication administered at discharge. ss 15:18 Drug: Zithromax (azithromycin) 250 mg Route: PO; ss 15:18 Follow up: Response: Medication administered at discharge. ss Medication: 14:25 VIS not applicable for this client. ss Outcome: 14:58 Discharge ordered by . [facility] 15:17 Discharged to home ambulatory. ss 15:17 Condition: good 15:17 Discharge instructions given to patient, Instructed on discharge instructions, follow up and referral plans. medication usage, Demonstrated understanding of instructions, follow-up care, medications, Prescriptions given X 2. 15:18 Patient left the ED. ss Signatures: Robles Graham PA PA jmm William Seema mr Deloris Cortez, RN RN ss
--- NOTE | 2022-09-13 14:58 | EDPHYS ---
Physician Documentation [facility] Name: Deborah Torres Age: 27 yrs Sex: Female : 1995 Arrival Date: 09/13/2022 Time: 14:07 Bed 12 Private MD: JUDY Physician Shawn Pollard Historical: - Allergies: 09/13 14:22 HYDROCODONE; ss 14:22 PENICILLINS; ss 14:22 promethazine HCl; ss 14:22 Tape; ss - PMHx: 14:22 Anxiety; Asthma; Bipolar disorder; Depression; Hypertension; Migraines; Pre-eclampsia; ss Thyroid problem; - PSHx: 14:22 section; Tonsillectomy; ss - Immunization history:: Client reports having NOT received the Covid vaccine. - Social history:: Smoking status: Patient denies any tobacco usage or history of. Vital Signs: 14:20 BP 153 / 80; Pulse 102; Resp 16; Temp 98.4(TE); Pulse Ox 100% on R/A; Height 5 ft. 4 ss in. (162.56 cm); Pain 10/10; MDM: 14:25 Patient medically screened. [facility] 14:57 Data reviewed: vital signs, nurses notes. [facility] Administered Medications: 15:06 Drug: Ketorolac 30 mg Route: IM; Site: right gluteus; ss 15:09 Follow up: Response: Medication administered at discharge. ss 15:18 Drug: Zithromax (azithromycin) 250 mg Route: PO; ss 15:18 Follow up: Response: Medication administered at discharge. Disposition Summary: 09/13/22 14:58 Discharge Ordered Location: Home [facility] Condition: Stable [facility] Diagnosis - Low back pain jmm - dental pain [facility] Followup: [facility] - With: Private Physician - When: 1 - 2 days - Reason: Recheck today's complaints, Continuance of care, Re-evaluation by your physician Discharge Instructions: - Discharge Summary Sheet [facility] - Acute Back Pain, Adult jm - Dental Pain [facility] Forms: - Medication Reconciliation Form [facility] - Thank You Letter [facility] - Antibiotic Education jm - Prescription Opioid Use [facility] Prescriptions: - Diclofenac Sodium 75 mg Oral Tablet Sustained Release - take 1 tablet by ORAL route 2 times per day; 30 tablet; Refills: 0, Product [facility] Selection Permitted - Zithromax Z-Mauro 250 mg Oral Tablet - take 1 tablet by ORAL route as directed for 5 days Day 1 - take two (2) tablets jmm one time. Day 2, 3, 4 , 5 take one (1) tablet once daily.; 6 tablet; Refills: 0, Product Selection Permitted Signatures: Robles Graham PA PA jmm Smirch, Shelby, ELÍAS RN ss
[2022-09-13] MEDS ORDERED: AZITHROMYCIN 250 MG TAB ONE (15:17)
[2022-09-13 15:29] VITALS: BP 153/80; TEMP 98.4; O2SAT 100
== END 2022-09-13 15:18 | disposition home or self-care (01) ==
LOC: ER 14:04
DX: M54.50 Low back pain, unspecified (principal); K08.89 Other specified disorders of teeth and supporting structures; I10 Essential (primary) hypertension; Z88.0 Allergy status to penicillin; Z88.5 Allergy status to narcotic agent; Z88.8 Allergy status to other drugs, medicaments and biological substances; Z91.048 Other nonmedicinal substance allergy status
CPT/HCPCS: 96372; 99283

== ENCOUNTER 2022-09-23 16:52 | Emergency (ER) | payer OTHER ==
--- OUTSIDE RECORDS SUMMARY | 2022-09-23 17:13 | XMS REPORT | Continuity of Care Document ---
:1995 Author Organization [facility] t Address [address] [place] [address] Care Team Providers Name Role Phone Pcp, Patient Does Not Have A Primary Care Physician [phone] REBEKAH VAZ Attending Clinician Unavailable ANGELO RODRIGUEZ Attending Clinician Unavailable ANGELO RODRIGUEZ Attending Clinician Unavailable Niki Mann RN Attending Clinician Unavailable Rebekah Vaz MD Attending Clinician Doctor Unassigned, [place] Attending Clinician Unavailable Pob, [facility] Lab Main Attending Clinician Unavailable Ultrasound, Ang-Mfm Attending Clinician Unavailable Shawn Levy DO Attending Clinician Severo Mcclellan MD Attending Clinician SEVERO MCCLELLAN Attending Clinician Unavailable SEVERO MCCLELLAN Attending Clinician Unavailable Kyle MCKINLEY, Manuel Álvarez Attending Clinician Unavailable Cierra MCKINLEY, Valarie Attending Clinician Unavailable Johann MCKINLEY, Trinity Álvarez Attending Clinician Unavailable EBRAHIMCECELIA Attending Clinician Unavailable Ebrahim CARD CLOTHIERCecelia Attending Clinician Unknown, Attending Attending Clinician Unavailable Provider, [facility] Attending Clinician Unavailable ROD PRICE Attending Clinician Unavailable SUSANNA WOO Attending Clinician Unavailable Amna GOTTLIEB, Susanna Negrete Attending Clinician [phone] Pcp, Patient Does Not Have A Attending Clinician [phone], [facility] Attending Clinician Unavailable KASHIF RYAN Attending [...] JOHNNA CHOWDHURY Attending Clinician Unavailable Faculty, [facility] Attending Clinician Unavailable Johnna Chowdhury MD Attending Clinician [phone] Ultrasound, [facility] Attending Clinician Unavailable JULIAN ELENA Attending Clinician Unavailable Julian Elena MD Attending Clinician Rod Price MD Attending Clinician Lab, Ang - Db Attending Clinician Unavailable Nurse, [facility] Attending Clinician Unavailable 1, [facility] Usg Room Attending Clinician Unavailable Christine Huber RN Attending Clinician Unavailable Iban GOTTLIEB, Aydin Attending Clinician 2, [facility] Usg Room Attending Clinician Unavailable Jamila Zaldivar MD Attending Clinician Nurse, [facility] Attending Clinician Unavailable Ana Cristina Coates RN Attending Clinician Unavailable Conchita Hoskins PA-C Attending Clinician Wicho Boateng DO Attending Clinician Nurse, [facility] Attending Clinician Unavailable Linda Denson MD Attending Clinician Rosa Velasco MA Attending Clinician Unavailable Rhonda Josue RN Attending Clinician Unavailable JAMILA ZALDIVAR Attending Clinician Unavailable SONI ASHLEY Attending Clinician Unavailable JEANNA BULLOCK Attending Clinician Unavailable LINDA DENSON Attending Clinician Unavailable Renée CARD CLOTHIERAmanda Attending Clinician Cassius GRUBBS, Nelson Attending Clinician VERNON GONZALEZ III Attending Clinician Unavailable Jeanna Bullock MD Attending Clinician NELSON CLEMONS Attending Clinician Unavailable MAR SEGURA Attending Clinician Unavailable JOSH BECKHAM Attending Clinician Unavailable Only, [facility] Attending Clinician Unavailable LIBBY GR Attending Clinician Unavailable Simón CARD CLOTHIERLibby Attending Clinician Soni Rivera Attending Clinician MUKUND SOTO Attending Clinician Unavailable Mukund Celaya Attending Clinician ERIC MOCK Attending Clinician Unavailable Eric Osorio Attending Clinician AMANDA CHINCHILLA Attending Clinician Unavailable Hill Barfield MD Attending Clinician Adrián Parikh MD Attending Clinician TAB KERNS Attending Clinician Unavailable Lab, Ang-Rmchp Attending Clinician Unavailable Visit, Ang-Rmchp Nurse Attending Clinician Unavailable Kathryn Castillo Attending Clinician Fellow, Len [facility] Rmchantonio Mfm Attending Clinician Unavailable Jurgen MCKINLEY, Chuy Attending Clinician Unavailable Tab Duong Attending Clinician [phone] Ellie Quezada RN Attending Clinician Unavailable Kandi Reid MD Attending Clinician Fish GOTTLIEB, Brandon Miranda Attending Clinician Tammy Ortiz MD Attending Clinician ROBERT HARVEY Attending Clinician Unavailable Roberth GOTTLIEB, Emmanuel Mckeon Attending Clinician Maldonado Marie MD Attending Clinician Perez [facility], Rhonda Howe Attending Clinician Risk, Dii-Bhmkn-Na/High Attending Clinician Unavailable Dee [facility] Attending Clinician Raju_P Attending Clinician Unavailable SUSANNA WOO Admitting Clinician Unavailable JAMILA ZALDIVAR Admitting Clinician Unavailable SEVERO MCCLELLAN Admitting Clinician Unavailable REBEKAH VAZ Admitting Clinician Unavailable Rebekah Vaz MD Admitting Clinician Susanna Woo MD Admitting Clinician [phone] CAROLYN AMATO Admitting Clinician Unavailable Jamila Zaldivar MD Admitting Clinician Julian Elena MD Admitting Clinician Raju_P Admitting Clinician Unavailable Payers Payer Name Policy Type Policy Number Effective Date Expiration Date S dave [employer] [id number] 2020 00:00:00 Problems Condition Condition Condition Status Onset Resolution Last Treating Co mments Source Name Details Category Date Date Treatment Clinician Date Liveborn Liveborn Disease Active Unive rs , of infant, of 2-09 [place] , [place] born in born in [facility] by by delivery delivery Tubal Tubal Disease Active Univers ligation ligation 1-27 [place] [address] [place] [address] Chronic Chronic Disease Active 2021-08 Univers hypertensi hypertensi 2-29 [place] of on during on during [place] [facility] Round Round Disease Active Univers ligament ligament 9-30 ity of pain pain 00:00: [place] 00 Medical Branch History of History of Disease Active U nivers 6-30 ity of delivery, [place], 00:[place] 00 [facility] Branch History of History of Disease Active U nivers miscarriag miscarriag 6-27 it y of e, e, 00:00: [place] currently currently 00 [facility] Branch Tobacco Tobacco Disease Active Univers abuse abuse 6-27 ity of 00:00: [place] [facility] Previous Previous Disease Active Unive rs 9- ity of section section 00:00: [place] 00 [facility] Branch 38 weeks 38 weeks Disease Active Unive rs gestation gestation 8-29 ity of of of 00:00: [place] 00 [facility] COVID-19 COVID-19 Disease Active Unive rs virus IgG virus IgG 8-18 ity of antibody antibody 00:00: [place] detected detected 00 Medica l Branch High risk High risk Disease Active Uni vers , , 7-20 it y of antepartum antepartum [place] Marijuana Marijuana Disease Active Uni vers use use 1-19 ity of 00:00: [place] 00 Medical [facility] History of History of Disease Active U [...] albuterol nebulizer and xopinex.I CD10 Diagnosis Term Duplex Trimmer Utility Anxiety Anxiety Disease Active 2015-0 Overview: Univ ers and and 2-16 Formattin [...] INGREDI 0-06 ity of 00:00: [place] [facility] Prometha Propensi Active Itching 2018-0 Itching Univ ers zine Hcl ty to 1 and hives ity o f adverse 00:00: [place] reaction 00 Medical s Branch PROMETHA DRUG Active ITCHING 2018-0 Univers ZINE HCL INGREDI 1- ity of 00:00: [place] [facility] Adhesive Propensi Active Rash 2016-0 Univer s Tape-Fannie ty to 3-08 ity of icones adverse 00:00: [place] reaction 00 Medical s Branch ADHESIVE DRUG Active Rash 2015-0 Univers TAPE-FANNIE 3-08 ity of ICONES 00:00: [place] [facility] Hydrocod Drug Active Itching 2011-0 itching Univer s one Allergy 8-27 ity of 00:00: [place] 00 Medical [facility] HYDROCOD DRUG Active Low Rash 2011-0 Univers ONE INGREDI 8-27 ity of 00:00: [place] [facility] Social History Social Habit Start Date Stop Date Quantity Comments Source ASSERTION 2022-01-02 [place] of 00:00:00 [facility] Alcohol intake 2022-09-20 2022-09-20 0 /d University of 00:00:00 00:00:00 [facility] Exposure to 2022-09-09 2022-09-19 Not sure University of SARS-CoV-2 (event) 00:00:00 10:27:00 [facility] Cigarettes smoked 2022-02-27 2022-02-27 Univers ity of current (pack per 00:00:00 00:00:00 [place] [facility] ) - Reported Branch Cigarette 2022-02-27 2022-02-27 University of pack-years 00:00:00 00:00:00 [facility] Tobacco use and 2022-02-27 2022-02-27 Smokeless Universit y of exposure 00:00:00 00:00:00 tobacco [facility]-user [facility] Comment 2022-02-27 2022-02-27 2-3 cig /day Univers ity of 00:00:00 00:00:00 [facility] History of tobacco 2020-08-14 Cigarette Smoker University of use 00:00:00 [facility] Sex Assigned At [birth year] NIKIA Childs 00:00:00 00:00:00 [facility] Smoking Status Start Date Stop Date Source Smokes tobacco daily 2022-02-27 00:00:00 Univers ity of [facility] Medications Ordered Filled Start Stop Current Ordering Indication Dosage Frequency Signature Comments Components Source Medication Medication Date Date Medication? Clinician (SIG) Name Name ibuprofen 2022-0 Yes 600mg 600 mg, Univ ers (IBU) 2-11 Oral, Q6H ity of tablet 600 06:00: ABX, First [place] mg 00 dose on [facility] 09/13/22 at 0000, Until Discontinu ed, Routine ibuprofen 2022-0 Yes 600mg 600 mg, Univ ers (IBU) 2-11 Oral, Q6H ity of tablet 600 06:00: ABX, First [place] mg 00 dose on [facility] 09/13/22 at 0000, Until Discontinu ed, Routine cetirizine 3-0 Yes 5mg 5 mg, Univer s (ZYRTEC) 2-10 Oral, ity of tablet 5 mg 15:00: DAILY, [place] 00 First dose Medical on Thu [place] 09/12/22 at 0900, Until Discontinu ed, Routine cetirizine 3-0 Yes 5mg 5 mg, Univer s (ZYRTEC) 2-10 Oral, ity of tablet 5 mg 15:00: DAILY, [place] 00 First dose Medical on Thu Branch 09/12/22 at 0900, Until Discontinu ed, Routine ketorolac 2022- Yes 30mg 30 mg, Unive rs (TORADOL) 09-12 Slow IV ity of injection 06:00: 05:59 Push, Q6H [place] 30 mg 00 :00 ABX, 4 Medical doses, Branch First dose on Thu09/12/22 at 0000, Last dose on Thu09/12/22 at 1800, Routine ketorolac 2022- Yes 30mg 30 mg, Unive rs (TORADOL) 09-12 Slow IV ity of injection 06:00: 05:59 Push, Q6H [place] 30 mg 00 :00 ABX, 4 Medical doses, Branch First dose on Thu09/12/22 at 0000, Last dose on Thu09/12/22 at 1800, Routine acetaminoph Yes 650mg 650 mg, Un mohamud en 2-10 Oral, Q6H ity of (TYLENOL) 02:00: ABX, First [place] tablet 650 00 dose on Medica l mg [facility] 09/11/22 Branch at 1999, Until Discontinu ed, Routine acetaminoph 0 Yes 650mg 650 mg, Un mohamud en 2-10 Oral, Q6H ity of (TYLENOL) 02:00: ABX, First [place] tablet 650 00 dose on Medica l mg [facility] 09/11/22 Branch at 1999, Until Discontinu ed, Routine acetaminoph Yes [id number] 650mg Take 2 Univers en 325 mg 2-10 103 tablets by ity of tablet 00:00: mouth 00 every 6 Medical (six) Branch hours as needed for Pain (scale 1-3) or Pain (scale 4-6). Yes [id number] 1{tbl} Take 1 Univers vitamin 2-10 103 tablet by ity of w/FA tablet 00:00: mouth in [place] 00 the Medical morning. Branch docusate Yes [id number] 200mg Take 2 Univers 100 mg 2-10 103 capsules ity of capsule 00:00: by mouth 00 once daily Medical as needed Branch for Constipati on. ferrous 2023-0 Yes [id number] 325mg Take 1 Univers sulfate 325 2-10 103 tablet by ity of mg (65 mg 00:00: [place] iron[place] 00 the Medical tablet morning Branch and 1 tablet in the evening. ibuprofen 2022-0 Yes [id number] 600mg Take 1 Univers 600 mg 2-10 103 tablet by ity of tablet 00:00: mouth [place] 00 every 6 Medical (six) Branch hours as needed (Pain). Take with food or milk. acetaminoph 2022-0 Yes [id number] 650mg Take 2 Univers en 325 mg 2-10 103 tablets by ity of tablet 00:00: mouth [place] 00 every 6 Medical (six) Branch hours as needed for Pain (scale 1-3) or Pain (scale 4-6). 2022-0 Yes [id number] 1{tbl} Take 1 Univers vitamin 2-10 103 tablet by ity of w/FA tablet 00:00: mouth in [place] 00 the Medical morning. Branch docusate 2022-0 Yes [id number] 200mg Take 2 Univers 100 mg 2-10 103 capsules ity of capsule 00:00: by mouth [place] 00 once daily Medical as needed Branch for Constipati on. ferrous 0 Yes [id number] 325mg Take 1 Univers sulfate 325 2-10 103 tablet by ity of mg (65 mg 00:00: [place] iron[place] 00 the Medical tablet morning Branch and 1 tablet in the evening. ibuprofen 2022-0 Yes [id number] 600mg Take 1 Univers 600 mg 2-10 103 tablet by ity of tablet 00:00: mouth [place] 00 every 6 Medical (six) Branch hours as needed (Pain). Take with food or milk. acetaminoph 0 Yes [id number] 650mg Take 2 Univers en 325 mg 2-10 103 tablets by ity of tablet 00:00: mouth [place] 00 every 6 Medical (six) Branch hours as needed for Pain (scale 1-3) or Pain (scale 4-6). 2022-0 Yes [id number] 1{tbl} Take 1 Univers vitamin 2-10 103 tablet by ity of w/FA tablet 00:00: mouth in [place] 00 the Medical morning. Branch docusate 2022-0 Yes [id number] 200mg Take 2 Univers 100 mg 2-10 103 capsules ity of capsule 00:00: by mouth [place] 00 once daily Medical as needed Branch for Constipati on. ferrous 2022-0 Yes [id number] 325mg Take 1 Univers sulfate 325 2-10 103 tablet by ity of mg (65 mg 00:00: [place] iron[place] 00 the Medical tablet morning Branch and 1 tablet in the evening. ibuprofen 2022-0 Yes [id number] 600mg Take 1 Univers 600 mg 2-10 103 tablet by ity of tablet 00:00: mouth [place] 00 every 6 Medical (six) Branch hours as needed (Pain). Take with food or milk. acetaminoph 2022-0 Yes [id number] 650mg Take 2 Univers en 325 mg 2-10 103 tablets by ity of tablet 00:00: mouth [place] 00 every 6 Medical (six) Branch hours as needed for Pain (scale 1-3) or Pain (scale 4-6). 2022-0 Yes [id number] 1{tbl} Take 1 Univers vitamin 2-10 103 tablet by ity of w/FA tablet 00:00: mouth in [place] 00 the Medical morning. Branch docusate 2022-0 Yes [id number] 200mg Take 2 Univers 100 mg 2-10 103 capsules ity of capsule 00:00: by mouth [place] 00 once daily Medical as needed Branch for Constipati on. ferrous 2022-0 Yes [id number] 325mg Take 1 Univers sulfate 325 2-10 103 tablet by ity of mg (65 mg 00:00: [place] iron) 00 the Medical tablet morning Branch and 1 tablet in the evening. ibuprofen 2022-0 Yes [id number] 600mg Take 1 Univers 600 mg 2-10 103 tablet by ity of tablet 00:00: mouth [place] 00 every 6 Medical (six) Branch hours as needed (Pain). Take with food or milk. acetaminoph 2022-0 Yes [id number] 650mg Take 2 Univers en 325 mg 2-10 103 tablets by ity of tablet 00:00: mouth [place] 00 every 6 Medical (six) Branch hours as needed for Pain (scale 1-3) or Pain (scale 4-6). 2022-0 Yes [id number] 1{tbl} Take 1 Univers vitamin 2-10 103 tablet by ity of w/FA tablet 00:00: mouth in [place] 00 the Medical morning. Branch docusate 2022-0 Yes [id number] 200mg Take 2 Univers 100 mg 2-10 103 capsules ity of capsule 00:00: by mouth [place] 00 once daily Medical as needed Branch for Constipati on. ferrous 2022-0 Yes [id number] 325mg Take 1 Univers sulfate 325 2-10 103 tablet by ity of mg (65 mg 00:00: mouth in [facility] iron) 00 the Medical tablet morning Branch and 1 tablet in the evening. ibuprofen 2022-0 Yes [id number] 600mg Take 1 Univers 600 mg 2-10 103 tablet by ity of tablet 00:00: mouth [place] 00 every 6 Medical (six) Branch hours as needed (Pain). Take with food or milk. acetaminoph 2022-0 Yes [id number] 650mg Take 2 Univers en 325 mg 2-10 103 tablets by ity of tablet 00:00: mouth [place] 00 every 6 Medical (six) Branch hours as needed for Pain (scale 1-3) or Pain (scale 4-6). 2022-0 Yes [id number] 1{tbl} Take 1 Univers vitamin 2-10 103 tablet by ity of w/FA tablet 00:00: mouth in [place] 00 the Medical morning. Branch docusate 0 Yes [id number] 200mg Take 2 Univers 100 mg 2-10 103 capsules ity of capsule 00:00: by mouth [place] 00 once daily Medical as needed Branch for Constipati on. ferrous 2022-0 Yes [id number] 325mg Take 1 Univers sulfate 325 2-10 103 tablet by ity of mg (65 mg 00:00: [place] iron[place] 00 the Medical tablet morning Branch and 1 tablet in the evening. ibuprofen 2022-0 Yes [id number] 600mg Take 1 Univers 600 mg 2-10 103 tablet by ity of tablet 00:00: mouth [place] 00 every 6 Medical (six) Branch hours as needed (Pain). Take with food or milk. traMADoL 50 2022-0 202- Yes [id number] 50mg Take 1 Uni vers mg tablet 2-10 02-18 tablet by ity of 00:00: 05:59 mouth [place] 00 :00 every 6 Medical (six) Branch hours as needed for Pain (scale 7-10) for up to 7 days. Indication s: acute pain traMADoL 50 2022-0 2022- Yes [id number] 50mg Take 1 Uni vers mg tablet 09-12-18 tablet by ity of 00:00: 05:59 mouth [place] 00 :00 every 6 Medical (six) Branch hours as needed for Pain (scale 7-10) for up to 7 days. Indication s: acute pain traMADoL 50 2022-0 2022- Yes [id number] 50mg Take 1 Uni vers mg tablet 09-12-18 tablet by ity of 00:00: 05:59 mouth [place] 00 :00 every 6 Medical (six) Branch hours as needed for Pain (scale 7-10) for up to 7 days. Indication s: acute pain traMADoL 50 2022-0 2022- No [id number] 50mg Take 1 Uni vers mg tablet 09-1218 tablet by ity of 00:00: 05:59 mouth [place] 00 :00 every 6 Medical (six) Branch hours as needed for Pain (scale 7-10) for up to 7 days. Indication s: acute pain gabapentin 2022-0 2022- Yes [id number] 300mg Take 1 Univers 300 mg 09-12 103 capsule by ity of capsule 00:00: 05:59 mouth in [place] 00 :00 the Medical morning Branch and 1 capsule at noon and 1 capsule in the evening. Do all this for 5 days. gabapentin 2022-0 2022- Yes [id number] 300mg Take 1 Univers 300 mg 09-12 103 capsule by ity of capsule 00:00: 05:59 mouth in [place] 00 :00 the [facility] morning Ismay and 1 capsule at noon and 1 capsule in the evening. Do all this for 5 days. gabapentin 2022-0 2022- Yes [id number] 300mg Take 1 Univers 300 mg 09-12 103 capsule by ity of capsule 00:00: 05:59 mouth in [place] 00 :00 the [facility] morning Branch and 1 capsule at noon and 1 capsule in the evening. Do all this for 5 days. gabapentin 2023-0 Yes 300mg 300 mg, Uni vers (NEURONTIN) 2-09 Oral, TID, it y of capsule 300 20:00: First dose [place] mg 00 on [facility] Medical 09/11/22 at Branch 1400, Until Discontinu ed, Routine gabapentin 2023-0 Yes 300mg 300 mg, Uni vers (NEURONTIN) 09-11 Oral, TID, it y of capsule 300 20:00: First dose [place] mg 00 on [facility] 09/11/22 at Branch 1400, Until Discontinu ed, Routine ondansetron 2022-0 2022- No 4mg 4 mg, Slow Univers (ZOFRAN 09-11 IV Push, ity of (PF)) 16:15: 16:22 ONCE, 1 [place] injection 4 00 :00 dose, On Medi rosa isela mg [facility] 09/11/22 Branch at 1015, Routine nalbuphine 2022-0 Yes 5mg 5 mg, Univer s (NUBAIN) 09-11 Intravenou ity o f injection 5 15:58: s, PRN, 1 [place] mg 16 dose, Medical Starting Branch on [facility] 09/11/22 at 0958, Until Discontinu ed, Routine, itching nalbuphine 2022-0 Yes 5mg 5 mg, Univer s (NUBAIN) 09-11 Intravenou ity o f injection 5 15:58: s, PRN, 1 [place] mg 16 dose, Medical Starting Branch on [facility] 09/11/22 at 0958, Until Discontinu ed, Routine, itching naloxone 2022-0 2022- Yes .4mg 0.4 mg, Unive rs (NARCAN) 09-11 Slow IV ity of injection 15:58: 00:14 Push, PRN [place] 0.4 mg 16 :19 - SEE Medical INSTRUCTIO Branch NS, Starting on [facility] 09/11/22 at 0958, Until 09/13/22 at 1814, Routine, Analgesia Recovery naloxone 2022-0 2022- Yes .4mg 0.4 mg, Unive rs (NARCAN) 09-11-12 Slow IV ity of injection 15:58: 00:14 [place], PRN [place] 0.4 mg 16 :19 - SEE Medical INSTRUCTIO Branch , Starting on [facility] 09/11/22 at 0958, Until 09/13/22 at 1814, Routine, Analgesia Recovery mupirocin 2022-0 Yes Intra-op Univ ers (BACTROBAN 09-11 ity of OINT) 2 % 15:23: [place] skin 00 Medical ointment Branch mupirocin 0 Yes Intra-op [facility] [place] [facility] ers (BACTROBAN 09-11 ity of OINT) 2 % 15:23: [place] skin 00 Medical ointment [place] lactated 0 2022- No 1000mL at 125 [facility] ringers IV 09-11 02-09 mL/hr, ity of infusion 15:15: 21:15 1,000 mL, [place] 1,000 mL 00 :00 IV Medical Infusion, Ismay ONCE, 1 dose, On [place] 09/11/22 at 0915, Routine sodium 2022-0 Yes PRN, Univers chloride 09-11 Starting ity of 0.9 % 14:56: on [place] irrigation 00 09/11/22 at [facility] solution 0856, Ismay Until Discontinu ed, Intra-op sodium 2022-0 Yes PRN, Univers chloride 09-11 Starting ity of 0.9 % 14:56: on Ag[place] irrigation 00 09/11/22 at [facility] solution 0856, Ismay Until Discontinu ed, Intra-op ziprasidone 0 Yes 20mg 20 mg, [facility] [place] [facility] ers (GEODON) 09-11 Oral, BID, ity o f capsule 20 14:30: First dose [place] mg 00 on [place] Medical 09/11/22 at Ismay 0830, Until Discontinu ed ziprasidone 0 Yes 20mg 20 mg, [facility] [place] [facility] ers (GEODON) 09-11 Oral, BID, ity o f capsule 20 14:30: First dose [place] mg 00 on [place] Medical 09/11/22 at Ismay 0830, Until Discontinu ed rho(D) 0 Yes 300ug 300 mcg, [facility] s immune 09-11 Intramuscu ity of globulin 14:21: lar, ONCE, [place] as (RHOGAM) 17 For 1 Medical syringe 300 dose, Ismay mcg Conditiona l, Routine rho(D) 0 Yes 300ug 300 mcg, Univer s immune - Intramuscu ity of globulin 14:21: lar, ONCE, [place] (RHOGAM) 17 For 1 Medical syringe 300 dose, Branch mcg Conditiona l, Routine diphenhydrA Yes 25mg 25 mg, [facility] [place] [facility] ers MINE 2 Slow IV ity of (BENADRYL) 14:21: Push, [...] IV Push, ity of (PF)) 14:21: Q8HPRN, [place] injection 4 11 Starting Medi rosa isela [...] 160mg 160 mg, Un mohamud (GAS RELIEF 209 Oral, ity of (SIMETHICON 14:21: PC+HSPRN, [place] E)) 11 Starting Medical chewable on [place] Branch tablet 160 09/11/22 at mg 0821, Until Discontinu ed, Routine, Gas diphenhydrA 2023-0 Yes 25mg 25 mg, Univ ers MINE 2-09 Slow IV ity of (BENADRYL) 14:21: Push, [place] injection 11 Q6HPRN, Medical 25 mg Starting [...] IV Push, ity of (PF)) 14:21: Q8HPRN, [place] injection 4 11 Starting Medi rosa isela mg on [place] Branch 09/11/22 at 0821, Until Discontinu ed, Routine, Nausea and Vomiting (N/V) bisacodyL 3-0 Yes 10mg 10 mg, Univer s (DULCOLAX) 2-09 Rectal, ity of suppository 14:21: QDAILYPRN, [place] 10 mg 11 Starting Medical on [place] Branch 09/11/22 at 0821, Until Discontinu ed, Routine, Constipati on simethicone 3-0 Yes 160mg 160 mg, Un mohamud (GAS RELIEF 2- Oral, ity of (SIMETHICON 14:21: PC+HSPRN, [place] E)) 11 Starting Medical chewable on [facility] Branch tablet 160 09/11/22 at mg 0821, [...] Until Discontinu ed, Routine, Constipati on lactated 3-0 Yes 1000mL at 125 Unive rs ringers IV 2-09 mL/hr, ity of infusion 14:21: 1,000 mL, [place] 1,000 mL 10 IV Medical Infusion, Branch PRN, 1 dose, Starting on [place] 09/11/22 at 0821, Until Discontinu ed, Routine docusate 3-0 Yes 200mg 200 mg, Unive rs (COLACE) 2-09 Oral, ity of capsule 200 14:21: QDAILYPRN, [place] mg 10 Starting Medical on [place] Branch 09/11/22 at 0821, Until Discontinu ed, Routine, Constipati on magnesium Yes 30mL 30 mL, Univer s hydroxide 09 Oral, ity of (MILK OF 14:21: QDAILYPRN, [...] of 2,000 mg in 11:59: 14:21 Piggyback, [place] NaCl 0.9% 02 :15 O.R. Medical (NS) 100 mL HOLDING Branc h MINI-BAG ONCE, Starting on [place] 09/11/22 at 0559, Until [place] 09/11/22 at 0821, Administer over 30 Minutes, 100 mL
Reas on for Anti-Infec tive: Surgical Prophylaxi s
Surgi rosa isela Prophylaxi s: [employer]
Duration of therapy: within 24 hours of surgery famotidine 2023-0 Yes 20mg 20 mg, Unive rs (PEPCID [...] 00 :00 dose, On Medica l mg [facility] 09/04/22 Branch at 0230, Routine NaCl 0.9% [...] 09-04 Oral, ity of imeth 06:13: Q6HPRN, [place] (MAALOX 18 Starting Medical PLUS / on [place] [facility] MAG-AL 09/04/22 at PLUS) 0013, 200-200-20 Until mg/5 mL Discontinu suspension ed, 30 mL Routine, Indigestio n ferrous 2022- No Take by Univer s sulfate 08-29 mouth. ity of (IRON ORAL) 11:17: 00:00 [place] 46 :00 [facility] ferrous 2022-0 Yes Take by Univers sulfate 1-12 mouth. ity of (IRON ORAL) 09:59: [address] ferrous 2022-0 Yes Take by Univers sulfate 1-12 mouth. ity of (IRON ORAL) 09:59: [address] ferrous 2022-0 Yes Take by Univers sulfate 1-12 mouth. ity of (IRON ORAL) 09:59: [address] ferrous 2022-0 Yes Take by Univers sulfate 1-12 mouth. ity of (IRON ORAL) 09:59: [address] ferrous 2022-0 Yes Take by Univers sulfate 1-12 mouth. ity of (IRON ORAL) 09:59: [address] ferrous 2022-0 Yes Take by Univers sulfate 1-12 mouth. ity of (IRON ORAL) 09:59: [address] ferrous 2022-0 Yes Take by Univers sulfate 1-12 mouth. ity of (IRON ORAL) 09:59: [address] ferrous 2022-0 Yes Take by Univers sulfate 1-12 mouth. ity of (IRON ORAL) 09:59: [address] ferrous 2022-0 Yes Take by Univers sulfate 1-12 mouth. ity of (IRON ORAL) 09:59: [address] butorphanol 2022-2022- No 1mg 1 mg, Univ ers (STADOL) 08-12 Intravenou ity of injection 1 05:00: 04:25 s, ONCE, 1 [place] mg 00 :00 dose, On Medical 08/11/22 Branch at 2300, Routine diphenhydrA 2022- No 25mg 25 mg, Uni vers MINE -08-12 Oral, ity of (BENADRYL) 02:45: 02:07 ONCE, 1 [place] tablet 25 00 :00 dose, On Medica l mg 08/11/22 Branch at 2044, Routine metoclopram 2022- No 10mg 10 mg, Uni vers richa HCl 08-12 Oral, ity of (REGLAN) 02:45: 02:07 ONCE, 1 [place] tablet 10 00 :00 dose, On Medica l mg [facility] 08/11/22 Branch at 2044, Routine acetaminoph 2023-0 Yes 1000mg 1,000 mg, Univers en 1-10 Oral, ity of (TYLENOL) 02:44: Q8HPRN, [place] tablet 03 Starting Medical 1,000 mg on Mon Branch 08/11/22 at 2044, Until Discontinu ed, Routine, pain ferrous Yes Take by Univers sulfate 1-10 mouth. ity of (IRON ORAL) 00:32: [address] ferrous Yes Take by Univers sulfate 1-10 mouth. ity of (IRON ORAL) 00:32: [address] ondansetron 2021-08- No 4mg 4 mg, Slow Univers (ZOFRAN 07-31 IV Push, ity of (PF)) 02:00: 01:18 ONCE, On [place] injection 4 00 :00 Wed Medical mg 07/30/22 Branch at 1999, For 1 dose
Do ses of ondansetro n 16 mg and above need to be administer ed via IV piggyback. For Dose >=24mg ECG monitoring is advisable.
terbutaline 2021-08 No .25mg 0.25 mg, Univers (BRETHINE) 07-31 Subcutaneo it y of injection 01:15: 00:27 [place]CE, [place] 0.25 mg 00 :00 1 dose, On Medica l [facility] 07/30/22 at 1915, Routine NaCl 0.9% 2021-08 No 1000mL at 999 Uni vers (NS) IV 12-29 mL/hr, IV ity of infusion 01:15: 00:50 Infusion, [place] 1,000 mL 00 :29 ONCE, 1 Medical dose, On Branch 07/30/22 at 1915, Routine ferrous 2021-08 Yes Take by Univers sulfate 2-28 mouth. ity of (IRON ORAL) 21:21: [address] ferrous 2021-08 Yes Take by Univers sulfate 2-28 mouth. ity of (IRON ORAL) 21:21: [address] ferrous 2021-08 Yes Take by Univers sulfate 2-28 mouth. ity of (IRON ORAL) 21:21: [address] ferrous 2021-08 Yes Take by Univers sulfate 2-28 mouth. ity of (IRON ORAL) 21:21: [place] [address] Medical Branch ondansetron 2021-08 No 4mg 4 mg, Univ ers (ZOFRAN-ODT 2-28 12-28 Oral, ity of ) 08:45: 07:48 ONCE, 1 [place] disintegrat 00 :00 dose, On Medi rosa isela ing tablet Wed Branch 4 mg 07/30/22 at 0245, Routine ondansetron 2021-08 Yes [id number] 4mg Take 1 Univers 4 mg 2-28 tablet by ity of disintegrat 00:00: mouth [place] ing tablet 00 every 8 Medica l (eight) Branch hours as needed for Nausea and Vomiting (N/V). ondansetron 2021-08 Yes [id number] 4mg Take 1 Univers 4 mg 2-28 tablet by ity of disintegrat 00:00: mouth [place] ing tablet 00 every 8 Medica l (eight) Branch hours as needed for Nausea and Vomiting (N/V). ondansetron 2021-08 Yes [id number] 4mg Take 1 Univers 4 mg 2-28 tablet by ity of disintegrat 00:00: mouth [place] ing tablet 00 every 8 Medica l (eight) Branch hours as needed for Nausea and Vomiting (N/V). ondansetron 2021-08 Yes [id number] 4mg Take 1 Univers 4 mg 2-28 tablet by ity of disintegrat 00:00: mouth [place] ing tablet 00 every 8 Medica l (eight) Branch hours as needed for Nausea and Vomiting (N/V). ondansetron 2021-08 Yes [id number] 4mg Take 1 Univers 4 mg 2-28 tablet by ity of disintegrat 00:00: mouth [place] ing tablet 00 every 8 Medica l (eight) Branch hours as needed for Nausea and Vomiting (N/V). ondansetron 2021-08 Yes [id number] 4mg Take 1 Univers 4 mg 2-28 tablet by ity of disintegrat 00:00: mouth [place] ing tablet 00 every 8 Medica l (eight) Branch hours as needed for Nausea and Vomiting (N/V). ondansetron 2021-08 Yes [id number] 4mg Take 1 Univers 4 mg 2-28 tablet by ity of disintegrat 00:00: mouth [place] ing tablet 00 every 8 Medica l (eight) Branch hours as needed for Nausea and Vomiting (N/V). ondansetron 2021-08 Yes [id number] 4mg Take 1 Univers 4 mg 2-28 tablet by ity of disintegrat 00:00: mouth [place] ing tablet 00 every 8 Medica l (eight) Branch hours as needed for Nausea and Vomiting (N/V). ondansetron 2021-08 Yes [id number] 4mg Take 1 Univers 4 mg 2-28 tablet by ity of disintegrat 00:00: mouth [place] ing tablet 00 every 8 Medica l (eight) Branch hours as needed for Nausea and Vomiting (N/V). ondansetron 2021-08 Yes [id number] 4mg Take 1 Univers 4 mg 2-28 tablet by ity of disintegrat 00:00: mouth [place] ing tablet 00 every 8 Medica l (eight) Branch hours as needed for Nausea and Vomiting (N/V). ondansetron 2021-08 Yes [id number] 4mg Take 1 Univers 4 mg 2-28 tablet by ity of disintegrat 00:00: mouth [place] ing tablet 00 every 8 Medica l (eight) Branch hours as needed for Nausea and Vomiting (N/V). ondansetron 2021-08 Yes [id number] 4mg Take 1 Univers 4 mg 2-28 tablet by ity of disintegrat 00:00: mouth [place] ing tablet 00 every 8 Medica l (eight) Branch hours as needed for Nausea and Vomiting (N/V). ondansetron 2021-08 Yes [id number] 4mg Take 1 Univers 4 mg 2-28 tablet by ity of disintegrat 00:00: mouth [place] ing tablet 00 every 8 Medica l (eight) Branch hours as needed for Nausea and Vomiting (N/V). ondansetron 2021-08 Yes [id number] 4mg Take 1 Univers 4 mg 2-28 tablet by ity of disintegrat 00:00: mouth [place] ing tablet 00 every 8 Medica l (eight) Branch hours as needed for Nausea and Vomiting (N/V). ondansetron 2021-08 Yes [id number] 4mg Take 1 Univers 4 mg 2-28 tablet by ity of disintegrat 00:00: mouth [place] ing tablet 00 every 8 Medica l (eight) Branch hours as needed for Nausea and Vomiting (N/V). ondansetron 2021-08 Yes [id number] 4mg Take 1 Univers 4 mg 2-28 tablet by ity of disintegrat 00:00: mouth [place] ing tablet 00 every 8 Medica l (eight) Branch hours as needed for Nausea and Vomiting (N/V). ondansetron 2021-08 Yes [id number] 4mg Take 1 Univers 4 mg 2-28 tablet by ity of disintegrat 00:00: mouth [place] ing tablet 00 every 8 Medica l (eight) Branch hours as needed for Nausea and Vomiting (N/V). ondansetron 2021-08 Yes [id number] 4mg Take 1 Univers 4 mg 2-28 tablet by ity of disintegrat 00:00: mouth [place] ing tablet 00 every 8 Medica l (eight) Branch hours as needed for Nausea and Vomiting (N/V). ondansetron 2021-08 Yes [id number] 4mg Take 1 Univers 4 mg 2-28 tablet by ity of disintegrat 00:00: mouth [place] ing tablet 00 every 8 Medica l (eight) Branch hours as needed for Nausea and Vomiting (N/V). ondansetron 2021-08 Yes [id number] 4mg Take 1 Univers 4 mg 2-28 tablet by ity of disintegrat 00:00: mouth [place] ing tablet 00 every 8 Medica l (eight) Branch hours as needed for Nausea and Vomiting (N/V). ondansetron 2021-08 Yes [id number] 4mg Take 1 Univers 4 mg 2-28 tablet by ity of disintegrat 00:00: mouth [place] ing tablet 00 every 8 Medica l (eight) Branch hours as needed for Nausea and Vomiting (N/V). ondansetron 2021-08 Yes [id number] 4mg Take 1 Univers 4 mg 2-28 tablet by ity of disintegrat 00:00: mouth [place] ing tablet 00 every 8 Medica l (eight) Branch hours as needed for Nausea and Vomiting (N/V). ondansetron 2021-08 Yes [id number] 4mg Take 1 Univers 4 mg 2-28 tablet by ity of disintegrat 00:00: mouth [place] ing tablet 00 every 8 Medica l (eight) Branch hours as needed for Nausea and Vomiting (N/V). ondansetron 2021-08 Yes [id number] 4mg Take 1 Univers 4 mg 2-28 tablet by ity of disintegrat 00:00: mouth [place] ing tablet 00 every 8 Medica l (eight) Branch hours as needed for Nausea and Vomiting (N/V). ondansetron 2021-08 Yes [id number] 4mg Take 1 Univers 4 mg 2-28 tablet by ity of disintegrat 00:00: mouth [place] ing tablet 00 every 8 Medica l (eight) Branch hours as needed for Nausea and Vomiting (N/V). ondansetron 2021-08 Yes [id number] 4mg Take 1 Univers 4 mg 2-28 tablet by ity of disintegrat 00:00: mouth [place] ing tablet 00 every 8 Medica l (eight) Branch hours as needed for Nausea and Vomiting (N/V). ondansetron 2021-08 Yes [id number] 4mg Take 1 Univers 4 mg 2-28 tablet by ity of disintegrat 00:00: mouth [place] ing tablet 00 every 8 Medica l (eight) Branch hours as needed for Nausea and Vomiting (N/V). ondansetron 2021-08 Yes [id number] 4mg Take 1 Univers 4 mg 2-28 tablet by ity of disintegrat 00:00: mouth [place] ing tablet 00 every 8 Medica l (eight) Branch hours as needed for Nausea and Vomiting (N/V). ferrous 2021-08 Yes Take by Univers sulfate 2-16 mouth. ity of (IRON ORAL) 08:50: [address] ferrous 2021-08 Yes Take by Univers sulfate 2-16 mouth. ity of (IRON ORAL) 08:50: [address] ferrous 2021-08 Yes Take by Univers sulfate 2-16 mouth. ity of (IRON ORAL) 08:50: [address] ferrous 2021-08 Yes Take by Univers sulfate 2-16 mouth. ity of (IRON ORAL) 08:50: [address] ferrous 2021-08 Yes Take by Univers sulfate 2-16 mouth. ity of (IRON ORAL) 08:50: [address] ferrous 2021-08 Yes Take by Univers sulfate 2-16 mouth. ity of (IRON ORAL) 08:50: [address] ferrous 2021-08 Yes Take by Univers sulfate 2-16 mouth. ity of (IRON ORAL) 08:50: [address] ferrous 2021-08 Yes Take by Univers sulfate 2-16 mouth. ity of (IRON ORAL) 08:50: [place] [address] Medical Branch ferrous 2021-08 Yes Take by Univers sulfate 2-16 mouth. ity of (IRON ORAL) 08:50: [place] [address] Medical Branch benzonatate 2021-08 Yes [id number] 100mg Take 1 Univers 100 mg 2-16 capsule by ity of capsule 00:00: mouth [place] 00 every 8 Medical (eight) Branch hours as needed for Cough. benzonatate 2021-08 Yes [id number] 100mg Take 1 Univers 100 mg 2-16 capsule by ity of capsule 00:00: mouth [place] 00 every 8 Medical (eight) Branch hours as needed for Cough. benzonatate 2021-08 Yes [id number] 100mg Take 1 Univers 100 mg 2-16 capsule by ity of capsule 00:00: mouth [place] 00 every 8 Medical (eight) Branch hours as needed for Cough. benzonatate 2021-08 Yes [id number] 100mg Take 1 Univers 100 mg 2-16 capsule by ity of capsule 00:00: mouth [place] 00 every 8 Medical (eight) Branch hours as needed for Cough. benzonatate 2021-08 Yes [id number] 100mg Take 1 Univers 100 mg 2-16 capsule by ity of capsule 00:00: mouth [place] 00 every 8 Medical (eight) Branch hours as needed for Cough. benzonatate 2021-08 Yes [id number] 100mg Take 1 Univers 100 mg 2-16 capsule by ity of capsule 00:00: mouth [place] 00 every 8 Medical (eight) Branch hours as needed for Cough. benzonatate 2021-08 Yes [id number] 100mg Take 1 Univers 100 mg 2-16 capsule by ity of capsule 00:00: mouth [place] 00 every 8 Medical (eight) Branch hours as needed for Cough. benzonatate 2021-08 Yes [id number] 100mg Take 1 Univers 100 mg 2-16 capsule by ity of capsule 00:00: mouth [place] 00 every 8 Medical (eight) Branch hours as needed for Cough. benzonatate 2021-08 Yes [id number] 100mg Take 1 Univers 100 mg 2-16 capsule by ity of capsule 00:00: mouth [place] 00 every 8 Medical (eight) Branch hours as needed for Cough. benzonatate 2021-08 Yes [id number] 100mg Take 1 Univers 100 mg 2-16 capsule by ity of capsule 00:00: mouth [place] 00 every 8 Medical (eight) Branch hours as needed for Cough. benzonatate 2021-08 Yes [id number] 100mg Take 1 Univers 100 mg 2-16 capsule by ity of capsule 00:00: mouth [place] 00 every 8 Medical (eight) Branch hours as needed for Cough. benzonatate 2021-08 Yes [id number] 100mg Take 1 Univers 100 mg 2-16 capsule by ity of capsule 00:00: mouth [place] 00 every 8 Medical (eight) Branch hours as needed for Cough. benzonatate 2021-08 Yes [id number] 100mg Take 1 Univers 100 mg 2-16 capsule by ity of capsule 00:00: mouth [place] 00 every 8 Medical (eight) Branch hours as needed for Cough. benzonatate 2021-08 Yes [id number] 100mg Take 1 Univers 100 mg 2-16 capsule by ity of capsule 00:00: mouth [place] 00 every 8 Medical (eight) Branch hours as needed for Cough. benzonatate 2021-08 Yes [id number] 100mg Take 1 Univers 100 mg 2-16 capsule by ity of capsule 00:00: mouth [place] 00 every 8 Medical (eight) Branch hours as needed for Cough. benzonatate 2021-08 Yes [id number] 100mg Take 1 Univers 100 mg 2-16 capsule by ity of capsule 00:00: mouth [place] 00 every 8 Medical (eight) Branch hours as needed for Cough. benzonatate 2021-08 Yes [id number] 100mg Take 1 Univers 100 mg 2-16 capsule by ity of capsule 00:00: mouth [place] 00 every 8 Medical (eight) Branch hours as needed for Cough. benzonatate 2021-08 Yes [id number] 100mg Take 1 Univers 100 mg 2-16 capsule by ity of capsule 00:00: mouth [place] 00 every 8 Medical (eight) Branch hours as needed for Cough. benzonatate 2021-08 Yes [id number] 100mg Take 1 Univers 100 mg 2-16 capsule by ity of capsule 00:00: mouth [place] 00 every 8 Medical (eight) Branch hours as needed for Cough. benzonatate 2021-08 Yes [id number] 100mg Take 1 Univers 100 mg 2-16 capsule by ity of capsule 00:00: mouth [place] 00 every 8 Medical (eight) Branch hours as needed for Cough. benzonatate 2021-08 Yes [id number] 100mg Take 1 Univers 100 mg 2-16 capsule by ity of capsule 00:00: mouth [place] 00 every 8 Medical (eight) Branch hours as needed for Cough. benzonatate 2021-08 Yes [id number] 100mg Take 1 Univers 100 mg 2-16 capsule by ity of capsule 00:00: mouth [place] 00 every 8 Medical (eight) Branch hours as needed for Cough. benzonatate 2021-08 Yes [id number] 100mg Take 1 Univers 100 mg 2-16 capsule by ity of capsule 00:00: mouth [place] 00 every 8 Medical (eight) Branch hours as needed for Cough. benzonatate 2021-08 Yes [id number] 100mg Take 1 Univers 100 mg 2-16 capsule by ity of capsule 00:00: mouth [place] 00 every 8 Medical (eight) Branch hours as needed for Cough. benzonatate 2021-08 Yes [id number] 100mg Take 1 Univers 100 mg 2-16 capsule by ity of capsule 00:00: mouth [place] 00 every 8 Medical (eight) Branch hours as needed for Cough. benzonatate 2021-08 Yes [id number] 100mg Take 1 Univers 100 mg 2-16 capsule by ity of capsule 00:00: mouth [place] 00 every 8 Medical (eight) Branch hours as needed for Cough. benzonatate 2021-08 Yes [id number] 100mg Take 1 Univers 100 mg 2-16 capsule by ity of capsule 00:00: mouth [place] 00 every 8 Medical (eight) Branch hours as needed for Cough. benzonatate 2021-08 Yes [id number] 100mg Take 1 Univers 100 mg 2-16 capsule by ity of capsule 00:00: mouth [place] 00 every 8 Medical (eight) Branch hours as needed for Cough. benzonatate 2021-08 Yes [id number] 100mg Take 1 Univers 100 mg 2-16 capsule by ity of capsule 00:00: mouth [place] 00 every 8 Medical (eight) Branch hours as needed for Cough. benzonatate 2021-08 Yes [id number] 100mg Take 1 Univers 100 mg 2-16 capsule by ity of capsule 00:00: mouth [place] 00 every 8 Medical (eight) Branch hours as needed for Cough. benzonatate 2021-08 Yes [id number] 100mg Take 1 Univers 100 mg 2-16 capsule by ity of capsule 00:00: mouth 00 every 8 Medical (eight) Branch hours as needed for Cough. benzonatate 2021-08 Yes [id number] 100mg Take 1 Univers 100 mg 2-16 capsule by ity of capsule 00:00: mouth 00 every 8 Medical (eight) Branch hours as needed for Cough. benzonatate 2021-08 Yes [id number] 100mg Take 1 Univers 100 mg 2-16 capsule by ity of capsule 00:00: mouth every 8 Medical (eight) Branch hours as needed for Cough. benzonatate 2021-08 Yes [id number] 100mg Take 1 Univers 100 mg 2-16 capsule by ity of capsule 00:00: mouth every 8 Medical (eight) Branch hours as needed for Cough. LATUDA 20 2021-08 Yes PLEASE SEE Un [...] LATUDA 20 2021- Yes PLEASE SEE Un mhoamud mg tablet 0-27 ATTACHED ity of 00:00: FOR DETAILED Medical DIRECTIONS Branch LATUDA 20 2021- Yes PLEASE SEE Un mohmaud mg tablet 0-27 ATTACHED ity of 00:00: [...] of 00:00: FOR DETAILED Medical DIRECTIONS Branch methIMAzole 2021- Yes [id number] 5mg Take 1 Univers 5 mg tablet 0-25 tablet by ity of 00:00: mouth in [place] the Medical morning. Branch methIMAzole 2021-08 Yes [id number] 5mg Take 1 Univers 5 mg tablet 0-25 tablet by ity of 00:00: mouth in [place] the Medical morning. Branch methIMAzole 2021-08 Yes [id number] 5mg Take 1 Univers 5 mg tablet 0-25 tablet by ity of 00:00: mouth in [place] the Medical morning. Branch methIMAzole 2021- Yes [id number] 5mg Take 1 Univers 5 mg tablet 0-25 tablet by ity of 00:00: mouth in [place] the Medical morning. Branch methIMAzole 2021-08 Yes [id number] 5mg Take 1 Univers 5 mg tablet 0-25 tablet by ity of 00:00: mouth in [place] the Medical morning. Branch methIMAzole 2021-08 Yes [id number] 5mg Take 1 Univers 5 mg tablet 0-25 tablet by ity of 00:00: mouth in [place] the Medical morning. Branch methIMAzole 2021-08 Yes [id number] 5mg Take 1 Univers 5 mg tablet 0-25 tablet by ity of 00:00: mouth in [place] 00 the Medical morning. Branch methIMAzole 2021- Yes [id number] 5mg Take 1 Univers 5 mg tablet 0-25 tablet by ity of 00:00: mouth in [place] the Medical morning. Branch methIMAzole 2021- Yes [id number] 5mg Take 1 Univers 5 mg tablet 0-25 tablet by ity of 00:00: mouth in [place] the Medical morning. Branch methIMAzole 2021- Yes [id number] 5mg Take 1 Univers 5 mg tablet 0-25 tablet by ity of 00:00: mouth in [place] the Medical morning. Branch methIMAzole 2021- Yes [id number] 5mg Take 1 Univers 5 mg tablet 0-25 tablet by ity of 00:00: mouth in [place] the Medical morning. Branch methIMAzole 2021- Yes [id number] 5mg Take 1 Univers 5 mg tablet 0-25 tablet by ity of 00:00: mouth in [place] the morning. Branch methIMAzole 2021- Yes [id number] 5mg Take 1 Univers 5 mg tablet 0-25 tablet by ity of 00:00: mouth in [place] the morning. Branch methIMAzole 2021-08 Yes [id number] 5mg Take 1 Univers 5 mg tablet 0-25 tablet by ity of 00:00: mouth in [place] the morning. Branch methIMAzole 2021-08 Yes [id number] 5mg Take 1 Univers 5 mg tablet 0-25 tablet by ity of 00:00: mouth in [place] the morning. Branch methIMAzole 2021- Yes [id number] 5mg Take 1 Univers 5 mg tablet 0-25 tablet by ity of 00:00: mouth in [place] the Medical morning. Branch methIMAzole 2021-08 Yes [id number] 5mg Take 1 Univers 5 mg tablet 0-25 tablet by ity of 00:00: mouth in [place] the Medical morning. Branch methIMAzole 2021- Yes [id number] 5mg Take 1 Univers 5 mg tablet 0-25 tablet by ity of 00:00: mouth in [place] the Medical morning. Branch methIMAzole 2021- Yes [id number] 5mg Take 1 Univers 5 mg tablet 0-25 tablet by ity of 00:00: mouth in [place] the Medical morning. Branch methIMAzole 2021-08 Yes [id number] 5mg Take 1 Univers 5 mg tablet 0-25 tablet by ity of 00:00: mouth in [place] the morning. Branch methIMAzole 2021-08 Yes [id number] 5mg Take 1 Univers 5 mg tablet 0-25 tablet by ity of 00:00: mouth in [place] the morning. Branch methIMAzole 2021-08 Yes [id number] 5mg Take 1 Univers 5 mg tablet 0-25 tablet by ity of 00:00: mouth in [place] the Medical morning. Branch methIMAzole 2021-08 Yes [id number] 5mg Take 1 Univers 5 mg tablet 0-25 tablet by ity of 00:00: mouth in [place] the Medical morning. Branch methIMAzole 2021-08 Yes [id number] 5mg Take 1 Univers 5 mg tablet 0-25 tablet by ity of 00:00: mouth in [place] the morning. Branch methIMAzole 2021-08 Yes [id number] 5mg Take 1 Univers 5 mg tablet 0-25 tablet by ity of 00:00: mouth in [place] the morning. Branch methIMAzole 2021-08 Yes [id number] 5mg Take 1 Univers 5 mg tablet 0-25 tablet by ity of 00:00: mouth in [place] the morning. Branch methIMAzole 2021-08 Yes [id number] 5mg Take 1 Univers 5 mg tablet 0-25 tablet by ity of 00:00: mouth in [place] the morning. Branch methIMAzole 2021-08 Yes [id number] 5mg Take 1 Univers 5 mg tablet 0-25 tablet by ity of 00:00: mouth in [place] the Medical morning. Branch methIMAzole 2021-08 Yes [id number] 5mg Take 1 Univers 5 mg tablet 0-25 tablet by ity of 00:00: mouth in [place] the Medical morning. Branch methIMAzole 2021-08 Yes [id number] 5mg Take 1 Univers 5 mg tablet 0-25 tablet by ity of 00:00: mouth in [place] the Medical morning. Branch methIMAzole 2021-08 Yes [id number] 5mg Take 1 Univers 5 mg tablet 0-25 tablet by ity of 00:00: mouth in [place] the Medical morning. Branch methIMAzole 2021-08 Yes [id number] 5mg Take 1 Univers 5 mg tablet 0-25 tablet by ity of 00:00: mouth in [place] the Medical morning. Branch methIMAzole 2021- Yes [id number] 5mg Take 1 Univers 5 mg tablet 0-25 tablet by ity of 00:00: mouth in [place] the Medical morning. Branch methIMAzole 2021- Yes [id number] 5mg Take 1 Univers 5 mg tablet 0-25 tablet by ity of 00:00: mouth in [place] the Medical morning. Branch methIMAzole 2021-08 Yes [id number] 5mg Take 1 Univers 5 mg tablet 0-25 tablet by ity of 00:00: mouth in [place] the Medical morning. Branch methIMAzole 2021- Yes [id number] 5mg Take 1 Univers 5 mg tablet 0-25 tablet by ity of 00:00: mouth in [place] the Medical morning. Branch methIMAzole 2021-08 Yes [id number] 5mg Take 1 Univers 5 mg tablet 0-25 tablet by ity of 00:00: mouth in [place] the Medical morning. Branch methIMAzole 2021-08 Yes [id number] 5mg Take 1 Univers 5 mg tablet 0-25 tablet by ity of 00:00: mouth in [place] the Medical morning. Branch methIMAzole 2021-08 Yes [id number] 5mg Take 1 Univers 5 mg tablet 0-25 tablet by ity of 00:00: mouth in [place] the Medical morning. Branch methIMAzole 2021- Yes [id number] 5mg Take 1 Univers 5 mg tablet 0-25 tablet by ity of 00:00: mouth in [place] the Medical morning. Branch methIMAzole 2021-08 Yes [id number] 5mg Take 1 Univers 5 mg tablet 0-25 tablet by ity of 00:00: mouth in [place] the Medical morning. Branch methIMAzole 2021- Yes [id number] 5mg Take 1 Univers 5 mg tablet 0-25 tablet by ity of 00:00: mouth in [place] the Medical morning. Branch methIMAzole 2021- Yes [id number] 5mg Take 1 Univers 5 mg tablet 0-25 tablet by ity of 00:00: mouth in [place] the Medical morning. Branch methIMAzole 2021-08 Yes [id number] 5mg Take 1 Univers 5 mg tablet 0-25 tablet by ity of 00:00: mouth in [place] the Medical morning. Branch methIMAzole 2021-08 Yes [id number] 5mg Take 1 Univers 5 mg tablet 0-25 tablet by ity of 00:00: mouth in [place] the morning. Branch methIMAzole 2021-08 Yes [id number] 5mg Take 1 Univers 5 mg tablet 0-25 tablet by ity of 00:00: mouth in [place] the Medical morning. Branch methIMAzole 2021-08 Yes [id number] 5mg Take 1 Univers 5 mg tablet 0-25 tablet by ity of 00:00: mouth in [place] the Medical morning. Branch methIMAzole 2021-08 Yes [id number] 5mg Take 1 Univers 5 mg tablet 0-25 tablet by ity of 00:00: mouth in [place] the morning. Branch methIMAzole 2021-08 Yes [id number] 5mg Take 1 Univers 5 mg tablet 0-25 tablet by ity of 00:00: mouth in [place] the morning. Branch methIMAzole 2021-08 Yes [id number] 5mg Take 1 Univers 5 mg tablet 0-25 tablet by ity of 00:00: mouth in [place] the morning. Branch methIMAzole 2021-08 Yes [id number] 5mg Take 1 Univers 5 mg tablet 0-25 tablet by ity of 00:00: mouth in [place] the morning. Branch methIMAzole 2021-08 Yes [id number] 5mg Take 1 Univers 5 mg tablet 0-25 tablet by ity of 00:00: mouth in [place] the Medical morning. Branch methIMAzole 2021-08 Yes [id number] 5mg Take 1 Univers 5 mg tablet 0-25 tablet by ity of 00:00: mouth in [place] the Medical morning. Branch methIMAzole 2021-08 Yes [id number] 5mg Take 1 Univers 5 mg tablet 0-25 tablet by ity of 00:00: mouth in [place] the Medical morning. Branch methIMAzole 2021-08 Yes [id number] 5mg Take 1 [facility] 5 mg tablet 0-25 tablet by ity of 00:00: mouth in [place] the Medical morning. Branch methIMAzole 2021-08 Yes [id number] 5mg Take 1 Univers 5 mg tablet 0-25 tablet by ity of 00:00: mouth in [place] the Medical morning. Branch methIMAzole 2021-08 Yes [id number] 5mg Take 1 Univers 5 mg tablet 0-25 tablet by ity of 00:00: mouth in [place] the Medical morning. Branch methIMAzole 2021-08 Yes [id number] 5mg Take 1 [facility] 5 mg tablet 0-25 tablet by ity of 00:00: mouth in [place] the Medical morning. Branch methIMAzole 2021-08 Yes [id number] 5mg Take 1 [facility] 5 mg tablet 0-25 tablet by ity of 00:00: mouth in [place] the Medical morning. Branch methIMAzole 2021-08 Yes [id number] 5mg Take 1 [facility] 5 mg tablet 0-25 tablet by ity of 00:00: mouth in [place] the Medical morning. Branch methIMAzole 2021-08 Yes [id number] 5mg Take 1 [facility] 5 mg tablet 0-25 tablet by ity of 00:00: mouth in [place] the Medical morning. Branch methIMAzole 2021-08 Yes [id number] 5mg Take 1 [facility] 5 mg tablet 0-25 tablet by ity of 00:00: mouth in [place] the Medical morning. Branch methIMAzole 2021-08- No [id number] 5mg Take 1 [facility] 5 mg tablet 0-25 02-10 tablet by it y of 00:00: 00:00 mouth in [place] 00 :00 the Medical morning. Branch methIMAzole 2021-08- No [id number] 5mg Take 1 [facility] 5 mg tablet 0-25 02-10 tablet by it y of 00:00: 00:00 mouth in [place] 00 :00 the Medical morning. Branch traMADoL 50 2021-08 Yes [facility] mg tablet 0-18 ity of 00:00: [place] 00 Medical Branch traMADoL 50 2021-08 Yes [facility] s mg tablet 0-18 ity of 00:00: [place] 00 Medical Branch traMADoL 50 2021-08 Yes Univer s mg tablet 0-18 ity of 00:00: [place] 00 Medical Branch traMADoL 50 2021-08 Yes [...] tablet 0-18 11-18 ity of 00:00: 00:00 [place] 00 :00 Medical Branch traMADoL 50 2021-08- No Unive rs mg tablet 0-18 11-18 ity of 00:00: 00:00 [place] 00 :00 Medical Branch hydroxyprog 2021-08- No [id number] 275mg [facility] esterone(PF 0-14 -14 ity of ) (YI 14:30: 13:21 [place] AUTO-INJECT 00 :00 Medical OR) 275 Branch mg/1.1 mL injection 275 mg hydroxyprog 2021-08- No [id number] 275mg 275 mg, [facility] esterone(PF 0-14 -14 Subcutaneo i ty of ) (YI 14:30: 13:21 [place] AUTO-INJECT 00 :00 1 dose, On Me dical OR) 275 Fri Branch mg/1.1 mL 05/16/22 injection at 0930, 275 mg Routine hydroxyprog 2021-08- No [id number] 275mg [facility] esterone(PF 0-07 10-07 ity of ) (YI 15:15: 14:19 [place] AUTO-INJECT 00 :00 Medical OR) 275 Branch mg/1.1 mL injection 275 mg hydroxyprog 2021-08- No [id number] 275mg 275 mg, [facility] esterone(PF 005-09 Subcutaneo i ty of ) (YI 15:15: 14:19 [place], [place]CE, [place] AUTO-INJECT 00 :00 1 dose, On Me dical OR) 275 Fri Branch mg/1.1 mL 05/09/22 at injection 1015, 275 mg Routine hydroxyprog 2022-0 2022- No [id number] 275mg [facility] esterone(PF 05-02 ity of ) (YI :45: 21:31 [place] AUTO-INJECT 00 :00 Medical OR) 275 Branch mg/1.1 mL injection 275 mg hydroxyprog 2022-0 2022- No [id number] 275mg 275 mg, [facility] esterone(PF 05-02 Subcutaneo i ty of ) (YI :45: 21:31 [place], [place]CE, [place] AUTO-INJECT 00 :00 1 dose, On Me dical OR) 275 Fri Branch mg/1.1 mL 05/02/22 at injection 1645, 275 mg Routine hydroxyprog 2022-0 2022- No [id number] 275mg [facility] esterone(PF 05-02 ity of ) (YI :45: 21:31 [place] AUTO-INJECT 00 :00 Medical OR) 275 Branch mg/1.1 mL injection 275 mg hydroxyprog 2022-0 2022- No [id number] 275mg 275 mg, [facility] esterone(PF 05-02 Subcutaneo i ty of ) (YI :45: 21:31 [place], [place]CE, [place] AUTO-INJECT 00 :00 1 dose, On Me dical OR) 275 Fri Branch mg/1.1 mL 05/02/22 at injection 1645, 275 mg Routine hydroxyprog 2022-0 2022- No [id number] 275mg [facility] esterone(PF 05-02 ity of ) (YI :45: 21:31 [place] AUTO-INJECT 00 :00 Medical OR) 275 Branch mg/1.1 mL injection 275 mg hydroxyprog 2022-0 2022- No [id number] 275mg 275 mg, [facility] esterone(PF 05-02 Subcutaneo i ty of ) (YI :45: 21:31 [place], [place]CE, [place] AUTO-INJECT 00 :00 1 dose, On Me dical OR) 275 Fri Branch mg/1.1 mL 05/02/22 at injection 1645, 275 mg Routine hydroxyprog 2021-0 2021- No [id number] 275mg [facility] esterone(PF 04-25 ity of ) (YI 15:45: 14:56 [place] AUTO-INJECT 00 :00 Medical OR) 275 Branch mg/1.1 mL injection 275 mg hydroxyprog 2021-0 2021- No [id number] 275mg 275 mg, [facility] esterone(PF 04-25 Subcutaneo i ty of ) (YI 15:45: 14:56 [place], [place]CE, [place] AUTO-INJECT 00 :00 1 dose, On Me dical OR) 275 Fri Branch mg/1.1 mL 04/25/22 at injection 1045, 275 mg Routine hydroxyprog 2021-0 2021- No [id number] 275mg [facility] esterone(PF 04-25 ity of ) (IY 15:45: 14:56 [place] AUTO-INJECT 00 :00 Medical OR) 275 Branch mg/1.1 mL injection 275 mg hydroxyprog 2021-0 2021- No [id number] 275mg 275 mg, [facility] esterone(PF 04-25 Subcutaneo [...] injection 00 Medical Branch YI, PF, 2-0 2022- No Unive rs 275 mg/1.1 9-16 11-18 ity of mL 00:00: 00:00 [place] injection 00 :00 Medical Branch MARILEE RICHMOND, 2-0 2022- No Unive rs 275 mg/1.1 04-1818 ity of mL 00:00: 00:00 [place] injection 00 :00 Medical Branch cephALEXin 2021-0 Yes [id number] 500mg Take 1 [facility] (KEFLEX) 9-11 capsule by ity o f 500 mg 00:00: mouth in [place] capsule 00 the Medical morning Branch and 1 capsule in the evening. cephALEXin 2-0 Yes [id number] 500mg Take 1 [facility] (KEFLEX) 9-11 capsule by ity o f 500 mg 00:00: mouth in [place] capsule 00 the Medical morning Branch and 1 capsule in the evening. cephALEXin 2-0 Yes [id number] 500mg Take 1 [facility] (KEFLEX) 9-11 capsule by ity o f 500 mg 00:00: mouth in [place] capsule 00 the Medical morning Branch and 1 capsule in the evening. cephALEXin 2-0 Yes [id number] 500mg Take 1 [facility] (KEFLEX) 9-11 capsule by ity o f 500 mg 00:00: mouth in [place] capsule 00 the Medical morning Branch and 1 capsule in the evening. cephALEXin 2021-0 Yes [id number] 500mg Take 1 [facility] (KEFLEX) 9-11 capsule by ity o f 500 mg 00:00: mouth in [place] capsule 00 the Medical morning Branch and 1 capsule in the evening. cephALEXin 2-0 Yes [id number] 500mg Take 1 [facility] (KEFLEX) 9-11 capsule by ity o f 500 mg 00:00: mouth in [place] capsule 00 the Medical morning Branch and 1 capsule in the evening. cephALEXin 2-0 Yes [id number] 500mg Take 1 [facility] (KEFLEX) 9-11 capsule by ity o f 500 mg 00:00: mouth in [place] capsule 00 the Medical morning Branch and 1 capsule in the evening. cephALEXin 2022-0 Yes [id number] 500mg Take 1 [facility] (KEFLEX) 9-11 capsule by ity o f 500 mg 00:00: mouth in [place] capsule 00 the Medical morning Branch and 1 capsule in the evening. cephALEXin 2022-0 Yes [id number] 500mg Take 1 [facility] (KEFLEX) 9-11 capsule by ity o f 500 mg 00:00: mouth in [place] capsule 00 the Medical morning Branch and 1 capsule in the evening. cephALEXin 2022-0 Yes [id number] 500mg Take 1 [facility] (KEFLEX) 9-11 capsule by ity o f 500 mg 00:00: mouth in [place] capsule 00 the Medical morning Branch and 1 capsule in the evening. cephALEXin 2022-0 Yes [id number] 500mg Take 1 [facility] (KEFLEX) 9-11 capsule by ity o f 500 mg 00:00: mouth in [place] capsule 00 the Medical morning Branch and 1 capsule in the evening. cephALEXin 2022-0 Yes [id number] 500mg Take 1 [facility] (KEFLEX) 9-11 capsule by ity o f 500 mg 00:00: mouth in [place] capsule 00 the Medical morning Branch and 1 capsule in the evening. cephALEXin 2022-0 Yes [id number] 500mg Take 1 [facility] (KEFLEX) 9-11 capsule by ity o f 500 mg 00:00: mouth in [place] capsule 00 the Medical morning Branch and 1 capsule in the evening. cephALEXin 2022-0 Yes [id number] 500mg Take 1 [facility] (KEFLEX) 9-11 capsule by ity o f 500 mg 00:00: mouth in [place] capsule 00 the Medical morning Branch and 1 capsule in the evening. cephALEXin 2022-0 Yes [id number] 500mg Take 1 [facility] (KEFLEX) 9-11 capsule by ity o f 500 mg 00:00: mouth in [place] capsule 00 the Medical morning Branch and 1 capsule in the evening. cephALEXin 2022-0 Yes [id number] 500mg Take 1 [facility] (KEFLEX) 9-11 capsule by ity o f 500 mg 00:00: mouth in [place] capsule 00 the Medical morning Branch and 1 capsule in the evening. cephALEXin 2022-0 Yes [id number] 500mg Take 1 [facility] (KEFLEX) 9-11 capsule by ity o f 500 mg 00:00: mouth in [place] capsule 00 the Medical morning Branch and 1 capsule in the evening. cephALEXin 2022-0 Yes [id number] 500mg Take 1 [facility] (KEFLEX) 9-11 capsule by ity o f 500 mg 00:00: mouth in [place] capsule 00 the Medical morning Branch and 1 capsule in the evening. cephALEXin 2022-0 Yes [id number] 500mg Take 1 [facility] (KEFLEX) 9-11 capsule by ity o f 500 mg 00:00: mouth in [place] capsule 00 the Medical morning Branch and 1 capsule in the evening. cephALEXin 2022-0 Yes [id number] 500mg Take 1 [facility] (KEFLEX) 9-11 capsule by ity o f 500 mg 00:00: mouth in [place] capsule 00 the Medical morning Branch and 1 capsule in the evening. cephALEXin 2022-0 Yes [id number] 500mg Take 1 [facility] (KEFLEX) 9-11 capsule by ity o f 500 mg 00:00: mouth in [place] capsule 00 the Medical morning Branch and 1 capsule in the evening. cephALEXin 2022-0 Yes [id number] 500mg Take 1 [facility] (KEFLEX) 9-11 capsule by ity o f 500 mg 00:00: mouth in [place] capsule 00 the Medical morning Branch and 1 capsule in the evening. cephALEXin 2022-0 Yes [id number] 500mg Take 1 [facility] (KEFLEX) 9-11 capsule by ity o f 500 mg 00:00: mouth in [place] capsule 00 the Medical morning Branch and 1 capsule in the evening. cephALEXin 2022-0 Yes [id number] 500mg Take 1 [facility] (KEFLEX) 9-11 capsule by ity o f 500 mg 00:00: mouth in [place] capsule 00 the Medical morning Branch and 1 capsule in the evening. cephALEXin 2022-0 Yes [id number] 500mg Take 1 [facility] (KEFLEX) 9-11 capsule by ity o f 500 mg 00:00: mouth in [place] capsule 00 the Medical morning Branch and 1 capsule in the evening. cephALEXin 2022-0 Yes [id number] 500mg Take 1 [facility] (KEFLEX) 9-11 capsule by ity o f 500 mg 00:00: mouth in [place] capsule 00 the Medical morning Branch and 1 capsule in the evening. cephALEXin 2022-0 Yes [id number] 500mg Take 1 [facility] (KEFLEX) 9-11 capsule by ity o f 500 mg 00:00: mouth in [place] capsule 00 the Medical morning Branch and 1 capsule in the evening. cephALEXin 2022-0 Yes [id number] 500mg Take 1 [facility] (KEFLEX) 9-11 capsule by ity o f 500 mg 00:00: mouth in [place] capsule 00 the Medical morning Branch and 1 capsule in the evening. cephALEXin 2022-0 Yes [id number] 500mg Take 1 [facility] (KEFLEX) 9-11 capsule by ity o f 500 mg 00:00: mouth in [place] capsule 00 the Medical morning Branch and 1 capsule in the evening. cephALEXin 2021-0 2021- No [id number] 500mg Take 1 [facility] (KEFLEX) 9-11 10-21 capsule by ity of 500 mg 00:00: 00:00 mouth in [place] capsule 00 :00 the Medical morning Branch and 1 capsule in the evening. cephALEXin 2021-0 2021- No [id number] 500mg Take 1 [facility] (KEFLEX) 9-11 10-21 capsule by ity of 500 mg 00:00: 00:00 mouth in [place] capsule 00 :00 the Medical morning Branch and 1 capsule in the evening. cephALEXin 2021-0 2021- No [id number] 500mg Take 1 [facility] (KEFLEX) 9-11 - capsule by ity of 500 mg 00:00: 00:00 mouth in [place] capsule 00 :00 the Medical morning Branch and 1 capsule in the evening. cephALEXin 2021-0 2021- No [id number] 500mg Take 1 [facility] (KEFLEX) -11 -21 capsule by ity of 500 mg 00:00: [...] vaginal
Duration of Therapy: 7 days metroNIDAZO 2-0 Yes [id number] 500mg Take 1 [facility] LE (FLAGYL) 04-11 tablet by ity of 500 mg 00:00: mouth [place] tablet 00 every 12 Medical (twelve) Branch hours. metroNIDAZO 2022-0 Yes [id number] 500mg Take 1 [facility] LE (FLAGYL) - tablet by ity of 500 mg 00:00: mouth [place] tablet 00 every 12 Medical (twelve) Branch hours. metroNIDAZO 2022-0 Yes [id number] 500mg Take 1 [facility] LE (FLAGYL) 9-09 tablet by ity of 500 mg 00:00: mouth [place] tablet 00 every 12 Medical (twelve) Branch hours. metroNIDAZO 2022-0 Yes [id number] 500mg Take 1 [facility] LE (FLAGYL) 9-09 tablet by ity of 500 mg 00:00: mouth [place] tablet 00 every 12 Medical (twelve) Branch hours. metroNIDAZO 2022-0 Yes [id number] 500mg Take 1 [facility] LE (FLAGYL) 9-09 tablet by ity of 500 mg 00:00: mouth [place] tablet 00 every 12 Medical (twelve) Branch hours. metroNIDAZO 2-0 Yes [id number] 500mg Take 1 [facility] LE (FLAGYL) 9-09 tablet by ity of 500 mg 00:00: mouth [place] tablet 00 every 12 Medical (twelve) Branch hours. metroNIDAZO 2021-0 Yes [id number] 500mg Take 1 [facility] LE (FLAGYL) 9-09 tablet by ity of 500 mg 00:00: mouth [place] tablet 00 every 12 Medical (twelve) Branch hours. metroNIDAZO 2021-0 Yes [id number] 500mg Take 1 [facility] LE (FLAGYL) 9-09 tablet by ity of 500 mg 00:00: mouth [place] tablet 00 every 12 Medical (twelve) Branch hours. metroNIDAZO 2021-0 Yes [id number] 500mg Take 1 [facility] LE (FLAGYL) 9-09 tablet by ity of 500 mg 00:00: mouth [place] tablet 00 every 12 Medical (twelve) Branch hours. metroNIDAZO 2-0 Yes [id number] 500mg Take 1 [facility] LE (FLAGYL) 9-09 tablet by ity of 500 mg 00:00: mouth [place] tablet 00 every 12 Medical (twelve) Branch hours. metroNIDAZO 2-0 Yes [id number] 500mg Take 1 [facility] LE (FLAGYL) 9-09 tablet by ity of 500 mg 00:00: mouth [place] tablet 00 every 12 Medical (twelve) Branch hours. metroNIDAZO 2022-0 Yes [id number] 500mg Take 1 [facility] LE (FLAGYL) 9-09 tablet by ity of 500 mg 00:00: mouth [place] tablet 00 every 12 Medical (twelve) Branch hours. metroNIDAZO 2022-0 Yes [id number] 500mg Take 1 [facility] LE (FLAGYL) 9-09 tablet by ity of 500 mg 00:00: mouth [place] tablet 00 every 12 Medical (twelve) Branch hours. metroNIDAZO 2022-0 Yes [id number] 500mg Take 1 [facility] LE (FLAGYL) 9-09 tablet by ity of 500 mg 00:00: mouth [place] tablet 00 every 12 Medical (twelve) Branch hours. metroNIDAZO 2022-0 Yes [id number] 500mg Take 1 [facility] LE (FLAGYL) 9-09 tablet by ity of 500 mg 00:00: mouth [place] tablet 00 every 12 Medical (twelve) Branch hours. metroNIDAZO 2-0 Yes [id number] 500mg Take 1 [facility] LE (FLAGYL) 9-09 tablet by ity of 500 mg 00:00: mouth [place] tablet 00 every 12 Medical (twelve) Branch hours. metroNIDAZO 2-0 Yes [id number] 500mg Take 1 [facility] LE (FLAGYL) 9-09 tablet by ity of 500 mg 00:00: mouth [place] tablet 00 every 12 Medical (twelve) Branch hours. metroNIDAZO 2021-0 Yes [id number] 500mg Take 1 [facility] LE (FLAGYL) 9-09 tablet by ity of 500 mg 00:00: mouth [place] tablet 00 every 12 Medical (twelve) Branch hours. metroNIDAZO 2021-0 Yes [id number] 500mg Take 1 [facility] LE (FLAGYL) 9-09 tablet by ity of 500 mg 00:00: mouth [place] tablet 00 every 12 Medical (twelve) Branch hours. metroNIDAZO 2-0 Yes [id number] 500mg Take 1 [facility] LE (FLAGYL) 9-09 tablet by ity of 500 mg 00:00: mouth [place] tablet 00 every 12 Medical (twelve) Branch hours. metroNIDAZO 2-0 Yes [id number] 500mg Take 1 [facility] LE (FLAGYL) 9-09 tablet by ity of 500 mg 00:00: mouth [place] tablet 00 every 12 Medical (twelve) Branch hours. metroNIDAZO 2022-0 Yes [id number] 500mg Take 1 [facility] LE (FLAGYL) 9-09 tablet by ity of 500 mg 00:00: mouth [place] tablet 00 every 12 Medical (twelve) Branch hours. metroNIDAZO 2-0 Yes [id number] 500mg Take 1 [facility] LE (FLAGYL) 9-09 tablet by ity of 500 mg 00:00: mouth [place] tablet 00 every 12 Medical (twelve) Branch hours. metroNIDAZO 2022-0 Yes [id number] 500mg Take 1 [facility] LE (FLAGYL) 9-09 tablet by ity of 500 mg 00:00: mouth [place] tablet 00 every 12 Medical (twelve) Branch hours. metroNIDAZO 2022-0 Yes [id number] 500mg Take 1 [facility] LE (FLAGYL) 9-09 tablet by ity of 500 mg 00:00: mouth [place] tablet 00 every 12 Medical (twelve) Branch hours. metroNIDAZO 2022-0 Yes [id number] 500mg Take 1 [facility] LE (FLAGYL) 9-09 tablet by ity of 500 mg 00:00: mouth [place] tablet 00 every 12 Medical (twelve) Branch hours. metroNIDAZO 2022-0 Yes [id number] 500mg Take 1 [facility] LE (FLAGYL) 9-09 tablet by ity of 500 mg 00:00: mouth [place] tablet 00 every 12 Medical (twelve) Branch hours. metroNIDAZO 2021-0 Yes [id number] 500mg Take 1 [facility] LE (FLAGYL) 9-09 tablet by ity of 500 mg 00:00: mouth [place] tablet 00 every 12 Medical (twelve) Branch hours. metroNIDAZO 2-0 Yes [id number] 500mg Take 1 [facility] LE (FLAGYL) 9-09 tablet by ity of 500 mg 00:00: mouth [place] tablet 00 every 12 Medical (twelve) Branch hours. metroNIDAZO 2-0 Yes [id number] 500mg Take 1 [facility] LE (FLAGYL) 9-09 tablet by ity of 500 mg 00:00: mouth [place] tablet 00 every 12 Medical (twelve) Branch hours. metroNIDAZO 2022-0 Yes [id number] 500mg Take 1 [facility] LE (FLAGYL) 9-09 tablet by ity of 500 mg 00:00: mouth [place] tablet 00 every 12 Medical (twelve) Branch hours. metroNIDAZO 2022-0 Yes [id number] 500mg Take 1 [facility] LE (FLAGYL) 9-09 tablet by ity of 500 mg 00:00: mouth [place] tablet 00 every 12 Medical (twelve) Branch hours. metroNIDAZO 2022-0 Yes [id number] 500mg Take 1 [facility] LE (FLAGYL) 9-09 tablet by ity of 500 mg 00:00: mouth [place] tablet 00 every 12 Medical (twelve) Branch hours. metroNIDAZO 2021-0 Yes [id number] 500mg Take 1 [facility] LE (FLAGYL) 9-09 tablet by ity of 500 mg 00:00: mouth [place] tablet 00 every 12 Medical (twelve) Branch hours. metroNIDAZO 2021-0 Yes [id number] 500mg Take 1 [facility] LE (FLAGYL) 9-09 tablet by ity of 500 mg 00:00: mouth [place] tablet 00 every 12 Medical (twelve) Branch hours. metroNIDAZO 2021-0 Yes [id number] 500mg Take 1 [facility] LE (FLAGYL) 9-09 tablet by ity of 500 mg 00:00: mouth [place] tablet 00 every 12 Medical (twelve) Branch hours. metroNIDAZO 2021-0 Yes [id number] 500mg Take 1 [facility] LE (FLAGYL) 9-09 tablet by ity of 500 mg 00:00: mouth [place] tablet 00 every 12 Medical (twelve) Branch hours. metroNIDAZO 2021-0 Yes [id number] 500mg Take 1 [facility] LE (FLAGYL) 9-09 tablet by ity of 500 mg 00:00: mouth [place] tablet 00 every 12 Medical (twelve) Branch hours. metroNIDAZO 2021-0 Yes [id number] 500mg Take 1 [facility] LE (FLAGYL) 9-09 tablet by ity of 500 mg 00:00: mouth [place] tablet 00 every 12 Medical (twelve) Branch hours. metroNIDAZO 2021-0 Yes [id number] 500mg Take 1 [facility] LE (FLAGYL) 9-09 tablet by ity of 500 mg 00:00: mouth [place] tablet 00 every 12 Medical (twelve) Branch hours. metroNIDAZO 2021-0 Yes [id number] 500mg Take 1 [facility] LE (FLAGYL) 9-09 tablet by ity of 500 mg 00:00: mouth [place] tablet 00 every 12 Medical (twelve) Branch hours. metroNIDAZO 2021-0 Yes [id number] 500mg Take 1 [facility] LE (FLAGYL) 9-09 tablet by ity of 500 mg 00:00: mouth [place] tablet 00 every 12 Medical (twelve) Branch hours. metroNIDAZO 2021-0 2021- No [id number] 500mg Take 1 [facility] LE (FLAGYL) 9-09 11-18 tablet by it y of 500 mg 00:00: 00:00 mouth [place] tablet 00 :00 every 12 Medical (twelve) Branch hours. metroNIDAZO 2-0 2- No [id number] 500mg Take 1 [facility] LE (FLAGYL) 04-11 11-18 tablet by it y of 500 mg 00:00: 00:00 mouth [place] tablet 00 :00 every 12 Medical (twelve) Branch hours. metoclopram 2022-0 Yes [id number] 10mg Take 1 [facility] richa HCl 10 8-31 tablet by ity of mg tablet 00:00: mouth [place] 00 every 6 Medical (six) Branch hours as needed for Nausea and Vomiting (N/V) or Gastroesop hageal reflux. famotidine 2022-0 Yes [id number] 20mg Take 1 U nivers 20 mg 8-31 tablet by ity of tablet 00:00: mouth in [place] 00 the Medical morning Branch and 1 tablet in the evening. metoclopram 2022-0 Yes [id number] 10mg Take 1 [facility] richa HCl 10 8-31 tablet by ity of mg tablet 00:00: mouth [place] 00 every 6 Medical (six) Branch hours as needed for Nausea and Vomiting (N/V) or Gastroesop hageal reflux. famotidine 2022-0 Yes [id number] 20mg Take 1 U nivers 20 mg 8-31 tablet by ity of tablet 00:00: mouth in [place] 00 the Medical morning Branch and 1 tablet in the evening. metoclopram 2022-0 Yes [id number] 10mg Take 1 [facility] richa HCl 10 8-31 tablet by ity of mg tablet 00:00: mouth [place] 00 every 6 Medical (six) Branch hours as needed for Nausea and Vomiting (N/V) or Gastroesop hageal reflux. famotidine 2022-0 Yes [id number] 20mg Take 1 U nivers 20 mg 8-31 tablet by ity of tablet 00:00: mouth in [place] 00 the Medical morning Branch and 1 tablet in the evening. metoclopram 2022-0 Yes [id number] 10mg Take 1 [facility] richa HCl 10 8-31 tablet by ity of mg tablet 00:00: mouth [place] 00 every 6 Medical (six) Branch hours as needed for Nausea and Vomiting (N/V) or Gastroesop hageal reflux. famotidine 2022-0 Yes [id number] 20mg Take 1 U nivers 20 mg 8-31 tablet by ity of tablet 00:00: mouth in [place] 00 the Medical morning Branch and 1 tablet in the evening. metoclopram 2022-0 Yes [id number] 10mg Take 1 [facility] richa HCl 10 8-31 tablet by ity of mg tablet 00:00: mouth [place] 00 every 6 Medical (six) Branch hours as needed for Nausea and Vomiting (N/V) or Gastroesop hageal reflux. famotidine 2022-0 Yes [id number] 20mg Take 1 U nivers 20 mg 8-31 tablet by ity of tablet 00:00: mouth in [place] 00 the Medical morning Branch and 1 tablet in the evening. metoclopram 2022-0 Yes [id number] 10mg Take 1 [facility] richa HCl 10 8-31 tablet by ity of mg tablet 00:00: mouth [place] 00 every 6 Medical (six) Branch hours as needed for Nausea and Vomiting (N/V) or Gastroesop hageal reflux. famotidine 2022-0 Yes [id number] 20mg Take 1 U nivers 20 mg 8-31 tablet by ity of tablet 00:00: mouth in [place] 00 the Medical morning Branch and 1 tablet in the evening. metoclopram 2022-0 Yes [id number] 10mg Take 1 [facility] richa HCl 10 8-31 tablet by ity of mg tablet 00:00: mouth [place] [address] every 6 Medical (six) Branch hours as needed for Nausea and Vomiting (N/V) or Gastroesop hageal reflux. famotidine 2022-0 Yes [id number] 20mg Take 1 U nivers 20 mg 8-31 tablet by ity of tablet 00:00: mouth in [place] 00 the Medical morning Branch and 1 tablet in the evening. metoclopram 2022-0 Yes [id number] 10mg Take 1 [facility] richa HCl 10 8-31 tablet by ity of mg tablet 00:00: mouth [place] 00 every 6 Medical (six) Branch hours as needed for Nausea and Vomiting (N/V) or Gastroesop hageal reflux. famotidine 2022-0 Yes [id number] 20mg Take 1 U nivers 20 mg 8-31 tablet by ity of tablet 00:00: mouth in [place] 00 the Medical morning Branch and 1 tablet in the evening. metoclopram 2022-0 Yes [id number] 10mg Take 1 [facility] richa HCl 10 8-31 tablet by ity of mg tablet 00:00: mouth [place] 00 every 6 Medical (six) Branch hours as needed for Nausea and Vomiting (N/V) or Gastroesop hageal reflux. famotidine 2022-0 Yes [id number] 20mg Take 1 [facility] nivers 20 mg 8-31 tablet by ity of tablet 00:00: mouth in [place] 00 the Medical morning Branch and 1 tablet in the evening. metoclopram 2022-0 Yes [id number] 10mg Take 1 [facility] richa HCl 10 8-31 tablet by ity of mg tablet 00:00: mouth [place] 00 every 6 Medical (six) Branch hours as needed for Nausea and Vomiting (N/V) or Gastroesop hageal reflux. famotidine 2022-0 Yes [id number] 20mg Take 1 [facility] nivers 20 mg 8-31 tablet by ity of tablet 00:00: mouth in [place] 00 the Medical morning Branch and 1 tablet in the evening. metoclopram 2022-0 Yes [id number] 10mg Take 1 [facility] richa HCl 10 8-31 tablet by ity of mg tablet 00:00: mouth [place] [address] every 6 Medical (six) Branch hours as needed for Nausea and Vomiting (N/V) or Gastroesop hageal reflux. famotidine 2022-0 Yes [id number] 20mg Take 1 U nivers 20 mg 8-31 tablet by ity of tablet 00:00: mouth in [place] 00 the Medical morning Branch and 1 tablet in the evening. metoclopram 2022-0 Yes [id number] 10mg Take 1 [facility] richa HCl 10 8-31 tablet by ity of mg tablet 00:00: mouth [place] 00 every 6 Medical (six) Branch hours as needed for Nausea and Vomiting (N/V) or Gastroesop hageal reflux. famotidine 2022-0 Yes [id number] 20mg Take 1 U nivers 20 mg 8-31 tablet by ity of tablet 00:00: mouth in [place] 00 the Medical morning Branch and 1 tablet in the evening. metoclopram 2022-0 Yes [id number] 10mg Take 1 [facility] richa HCl 10 8-31 tablet by ity of mg tablet 00:00: mouth [place] 00 every 6 Medical (six) Branch hours as needed for Nausea and Vomiting (N/V) or Gastroesop hageal reflux. famotidine 2022-0 Yes [id number] 20mg Take 1 [facility] nivers 20 mg 8-31 tablet by ity of tablet 00:00: mouth in [place] 00 the Medical morning Branch and 1 tablet in the evening. metoclopram 2022-0 Yes [id number] 10mg Take 1 [facility] richa HCl 10 8-31 tablet by ity of mg tablet 00:00: mouth [place] 00 every 6 Medical (six) Branch hours as needed for Nausea and Vomiting (N/V) or Gastroesop hageal reflux. famotidine 2022-0 Yes [id number] 20mg Take 1 [facility] nivers 20 mg 8-31 tablet by ity of tablet 00:00: mouth in [place] 00 the Medical morning Branch and 1 tablet in the evening. metoclopram 2022-0 Yes [id number] 10mg Take 1 [facility] richa HCl 10 8-31 tablet by ity of mg tablet 00:00: mouth [place] 00 every 6 Medical (six) Branch hours as needed for Nausea and Vomiting (N/V) or Gastroesop hageal reflux. famotidine 2022-0 Yes [id number] 20mg Take 1 [facility] nivers 20 mg 8-31 tablet by ity of tablet 00:00: mouth in [place] 00 the Medical morning Branch and 1 tablet in the evening. metoclopram 2022-0 Yes [id number] 10mg Take 1 [facility] richa HCl 10 8-31 tablet by ity of mg tablet 00:00: mouth [place] [address] every 6 Medical (six) Branch hours as needed for Nausea and Vomiting (N/V) or Gastroesop hageal reflux. famotidine 2022-0 Yes [id number] 20mg Take 1 [facility] 20 mg 8-31 tablet by [facility] tablet 00:00: mouth in [place] 00 the Medical morning Branch and 1 tablet in the evening. metoclopram 2022-0 Yes [id number] 10mg Take 1 [facility] 8-31 tablet by [facility] mg tablet 00:00: mouth [place] [address] every 6 Medical (six) Branch hours as needed for Nausea and Vomiting (N/V) or Gastroesop hageal reflux. famotidine 2022-0 Yes [id number] 20mg Take 1 [facility] 20 mg 8-31 tablet by [facility] tablet 00:00: mouth in [place] 00 the Medical morning Branch and 1 tablet in the evening. metoclopram 2022-0 Yes [id number] 10mg Take 1 [facility] 10 8-31 tablet by [facility] mg tablet 00:00: mouth [place] 00 every 6 Medical (six) Branch hours as needed for Nausea and Vomiting (N/V) or Gastroesop hageal reflux. famotidine 2022-0 Yes [id number] 20mg Take 1 [facility] 20 mg 8-31 tablet by [facility] tablet 00:00: mouth in [place] 00 the Medical morning Branch and 1 tablet in the evening. metoclopram 2022-0 Yes [id number] 10mg Take 1 [facility] 10 8-31 tablet by [facility] mg tablet 00:00: mouth [place] 00 every 6 Medical (six) Branch hours as needed for Nausea and Vomiting (N/V) or Gastroesop hageal reflux. famotidine 2022-0 Yes [id number] 20mg Take 1 [facility] 20 mg 8-31 tablet by [facility] tablet 00:00: mouth in [place] 00 the Medical morning Branch and 1 tablet in the evening. metoclopram 2022-0 Yes [id number] 10mg Take 1 [facility] 10 8-31 tablet by [facility] mg tablet 00:00: mouth [place] 00 every 6 Medical (six) Branch hours as needed for Nausea and Vomiting (N/V) or Gastroesop hageal reflux. famotidine 2022-0 Yes [id number] 20mg Take 1 [facility] 20 mg 8-31 tablet by [facility] tablet 00:00: mouth in [place] 00 the Medical morning Branch and 1 tablet in the evening. metoclopram 2022-0 Yes [id number] 10mg Take 1 [facility] 10 8-31 tablet by [facility] mg tablet 00:00: mouth [place] 00 every 6 Medical (six) Branch hours as needed for Nausea and Vomiting (N/V) or Gastroesop hageal reflux. famotidine 2022-0 Yes [id number] 20mg Take 1 [facility] 20 mg 8-31 tablet by [facility] tablet 00:00: mouth in [place] 00 the Medical morning Branch and 1 tablet in the evening. metoclopram 2022-0 Yes [id number] 10mg Take 1 [facility] 10 8-31 tablet by [facility] mg tablet 00:00: mouth [place] 00 every 6 Medical (six) Branch hours as needed for Nausea and Vomiting (N/V) or Gastroesop hageal reflux. famotidine 2022-0 Yes [id number] 20mg Take 1 [facility] 20 mg 8-31 tablet by [facility] tablet 00:00: mouth in [place] 00 the Medical morning Branch and 1 tablet in the evening. metoclopram 2022-0 Yes [id number] 10mg Take 1 [facility] 10 8-31 tablet by [facility] mg tablet 00:00: mouth [place] 00 every 6 Medical (six) Branch hours as needed for Nausea and Vomiting (N/V) or Gastroesop hageal reflux. famotidine 2022-0 Yes [id number] 20mg Take 1 [facility] 20 mg 8-31 tablet by [facility] tablet 00:00: mouth in [place] 00 the Medical morning Branch and 1 tablet in the evening. metoclopram 2022-0 Yes [id number] 10mg Take 1 [facility] 10 8-31 tablet by [facility] mg tablet 00:00: mouth [place] 00 every 6 Medical (six) Branch hours as needed for Nausea and Vomiting (N/V) or Gastroesop hageal reflux. famotidine 2022-0 Yes [id number] 20mg Take 1 [facility] 20 mg 8-31 tablet by [facility] tablet 00:00: mouth in [place] 00 the Medical morning Branch and 1 tablet in the evening. metoclopram 2022-0 Yes [id number] 10mg Take 1 [facility] 10 8-31 tablet by [facility] mg tablet 00:00: mouth [place] 00 every 6 Medical (six) Branch hours as needed for Nausea and Vomiting (N/V) or Gastroesop hageal reflux. famotidine 2022-0 Yes [id number] 20mg Take 1 [facility] 20 mg 8-31 tablet by [facility] tablet 00:00: mouth in [place] 00 the Medical morning Branch and 1 tablet in the evening. metoclopram 2022-0 Yes [id number] 10mg Take 1 [facility] 10 8-31 tablet by [facility] mg tablet 00:00: mouth [place] 00 every 6 Medical (six) Branch hours as needed for Nausea and Vomiting (N/V) or Gastroesop hageal reflux. famotidine 2022-0 Yes [id number] 20mg Take 1 [facility] 20 mg 8-31 tablet by [facility] tablet 00:00: mouth in [place] 00 the Medical morning Branch and 1 tablet in the evening. metoclopram 2022-0 Yes [id number] 10mg Take 1 [facility] 10 8-31 tablet by [facility] mg tablet 00:00: mouth [place] 00 every 6 Medical (six) Branch hours as needed for Nausea and Vomiting (N/V) or Gastroesop hageal reflux. famotidine 2022-0 Yes [id number] 20mg Take 1 [facility] 20 mg 8-31 tablet by [facility] tablet 00:00: mouth in [place] 00 the Medical morning Branch and 1 tablet in the evening. metoclopram 2022-0 Yes [id number] 10mg Take 1 [facility] 10 8-31 tablet by [facility] mg tablet 00:00: mouth [place] 00 every 6 Medical (six) Branch hours as needed for Nausea and Vomiting (N/V) or Gastroesop hageal reflux. famotidine 2022-0 Yes [id number] 20mg Take 1 [facility] 20 mg 8-31 tablet by [facility] tablet 00:00: mouth in [place] 00 the Medical morning Branch and 1 tablet in the evening. metoclopram 2022-0 Yes [id number] 10mg Take 1 [facility] 10 8-31 tablet by [facility] mg tablet 00:00: mouth [place] 00 every 6 Medical (six) Branch hours as needed for Nausea and Vomiting (N/V) or Gastroesop hageal reflux. famotidine 2022-0 Yes [id number] 20mg Take 1 [facility] 20 mg 8-31 tablet by [facility] tablet 00:00: mouth in [place] 00 the Medical morning Branch and 1 tablet in the evening. metoclopram 2022-0 Yes [id number] 10mg Take 1 [facility] 10 8-31 tablet by [facility] mg tablet 00:00: mouth [place] 00 every 6 Medical (six) Branch hours as needed for Nausea and Vomiting (N/V) or Gastroesop hageal reflux. famotidine 2022-0 Yes [id number] 20mg Take 1 [facility] 20 mg 8-31 tablet by [facility] tablet 00:00: mouth in [place] 00 the Medical morning Branch and 1 tablet in the evening. metoclopram 2022-0 Yes [id number] 10mg Take 1 [facility] 10 8-31 tablet by [facility] mg tablet 00:00: mouth [place] 00 every 6 Medical (six) Branch hours as needed for Nausea and Vomiting (N/V) or Gastroesop hageal reflux. famotidine 2022-0 Yes [id number] 20mg Take 1 [facility] 20 mg 8-31 tablet by [facility] tablet 00:00: mouth in [place] 00 the Medical morning Branch and 1 tablet in the evening. metoclopram 2022-0 Yes [id number] 10mg Take 1 [facility] 10 8-31 tablet by [facility] mg tablet 00:00: mouth [place] 00 every 6 Medical (six) Branch hours as needed for Nausea and Vomiting (N/V) or Gastroesop hageal reflux. famotidine 2022-0 Yes [id number] 20mg Take 1 [facility] 20 mg 8-31 tablet by [facility] tablet 00:00: mouth in [place] 00 the Medical morning Branch and 1 tablet in the evening. metoclopram 2022-0 Yes [id number] 10mg Take 1 [facility] 10 8-31 tablet by [facility] mg tablet 00:00: mouth [place] [address] every 6 Medical (six) Branch hours as needed for Nausea and Vomiting (N/V) or Gastroesop hageal reflux. famotidine 2022-0 Yes [id number] 20mg Take 1 [facility] 20 mg 8-31 tablet by [facility] tablet 00:00: mouth in [place] 00 the Medical morning Branch and 1 tablet in the evening. metoclopram 2022-0 Yes [id number] 10mg Take 1 [facility] 10 8-31 tablet by [facility] mg tablet 00:00: mouth [place] 00 every 6 Medical (six) Branch hours as needed for Nausea and Vomiting (N/V) or Gastroesop hageal reflux. famotidine 2022-0 Yes [id number] 20mg Take 1 [facility] 20 mg 8-31 tablet by [facility] tablet 00:00: mouth in [place] 00 the Medical morning Branch and 1 tablet in the evening. metoclopram 2022-0 Yes [id number] 10mg Take 1 [facility] 10 8-31 tablet by [facility] mg tablet 00:00: mouth [place] 00 every 6 Medical (six) Branch hours as needed for Nausea and Vomiting (N/V) or Gastroesop hageal reflux. famotidine 2022-0 Yes [id number] 20mg Take 1 [facility] 20 mg 8-31 tablet by [facility] tablet 00:00: mouth in [place] 00 the Medical morning Branch and 1 tablet in the evening. metoclopram 2022-0 Yes [id number] 10mg Take 1 [facility] 10 8-31 tablet by [facility] mg tablet 00:00: mouth [place] 00 every 6 Medical (six) Branch hours as needed for Nausea and Vomiting (N/V) or Gastroesop hageal reflux. famotidine 2022-0 Yes [id number] 20mg Take 1 [facility] 20 mg 8-31 tablet by [facility] tablet 00:00: mouth in [place] 00 the Medical morning Branch and 1 tablet in the evening. metoclopram 2022-0 Yes [id number] 10mg Take 1 [facility] 10 8-31 tablet by [facility] mg tablet 00:00: mouth [place] [address] every 6 Medical (six) Branch hours as needed for Nausea and Vomiting (N/V) or Gastroesop hageal reflux. famotidine 2022-0 Yes [id number] 20mg Take 1 [facility] 20 mg 8-31 tablet by [facility] tablet 00:00: mouth in [place] [address] the Medical morning Branch and 1 tablet in the evening. metoclopram 2022-0 Yes [id number] 10mg Take 1 [facility] 10 8-31 tablet by [facility] mg tablet 00:00: mouth [place] [address] every 6 Medical (six) Branch hours as needed for Nausea and Vomiting (N/V) or Gastroesop hageal reflux. famotidine 2022-0 Yes [id number] 20mg Take 1 [facility] 20 mg 8-31 tablet by [facility] tablet 00:00: mouth in [place] 00 the Medical morning Branch and 1 tablet in the evening. metoclopram 2022-0 Yes [id number] 10mg Take 1 [facility] 10 8-31 tablet by [facility] mg tablet 00:00: mouth [place] [address] every 6 Medical (six) Branch hours as needed for Nausea and Vomiting (N/V) or Gastroesop hageal reflux. famotidine 2022-0 Yes [id number] 20mg Take 1 [facility] 20 mg 8-31 tablet by [facility] tablet 00:00: mouth in [place] 00 the Medical morning Branch and 1 tablet in the evening. metoclopram 2022-0 Yes [id number] 10mg Take 1 [facility] 10 8-31 tablet by [facility] mg tablet 00:00: mouth [place] 00 every 6 Medical (six) Branch hours as needed for Nausea and Vomiting (N/V) or Gastroesop hageal reflux. famotidine 2022-0 Yes [id number] 20mg Take 1 [facility] 20 mg 8-31 tablet by [facility] tablet 00:00: mouth in [place] 00 the Medical morning Branch and 1 tablet in the evening. metoclopram 2022-0 Yes [id number] 10mg Take 1 [facility] 10 8-31 tablet by [facility] mg tablet 00:00: mouth [place] 00 every 6 Medical (six) Branch hours as needed for Nausea and Vomiting (N/V) or Gastroesop hageal reflux. famotidine 2022-0 Yes [id number] 20mg Take 1 [facility] 20 mg 8-31 tablet by [facility] tablet 00:00: mouth in [place] 00 the Medical morning Branch and 1 tablet in the evening. metoclopram 2022-0 Yes [id number] 10mg Take 1 [facility] 10 8-31 tablet by [facility] mg tablet 00:00: mouth [place] 00 every 6 Medical (six) Branch hours as needed for Nausea and Vomiting (N/V) or Gastroesop hageal reflux. famotidine 2022-0 Yes [id number] 20mg Take 1 [facility] 20 mg 8-31 tablet by [facility] tablet 00:00: mouth in [place] 00 the Medical morning Branch and 1 tablet in the evening. metoclopram 2022-0 Yes [id number] 10mg Take 1 [facility] 10 8-31 tablet by [facility] mg tablet 00:00: mouth [place] 00 every 6 Medical (six) Branch hours as needed for Nausea and Vomiting (N/V) or Gastroesop hageal reflux. famotidine 2022-0 Yes [id number] 20mg Take 1 [facility] 20 mg 8-31 tablet by [facility] tablet 00:00: mouth in [place] 00 the Medical morning Branch and 1 tablet in the evening. metoclopram 2022-0 Yes [id number] 10mg Take 1 [facility] 10 8-31 tablet by [facility] mg tablet 00:00: mouth [place] 00 every 6 Medical (six) Branch hours as needed for Nausea and Vomiting (N/V) or Gastroesop hageal reflux. famotidine 2022-0 Yes [id number] 20mg Take 1 [facility] 20 mg 8-31 tablet by [facility] tablet 00:00: mouth in [place] 00 the Medical morning Branch and 1 tablet in the evening. metoclopram 2022-0 Yes [id number] 10mg Take 1 [facility] 10 8-31 tablet by [facility] mg tablet 00:00: mouth [place] 00 every 6 Medical (six) Branch hours as needed for Nausea and Vomiting (N/V) or Gastroesop hageal reflux. famotidine 2022-0 Yes [id number] 20mg Take 1 [facility] 20 mg 8-31 tablet by [facility] tablet 00:00: mouth in [place] 00 the Medical morning Branch and 1 tablet in the evening. metoclopram 2022-0 Yes [id number] 10mg Take 1 [facility] 10 8-31 tablet by [facility] mg tablet 00:00: mouth [place] 00 every 6 Medical (six) Branch hours as needed for Nausea and Vomiting (N/V) or Gastroesop hageal reflux. famotidine 2022-0 Yes [id number] 20mg Take 1 [facility] 20 mg 8-31 tablet by [facility] tablet 00:00: mouth in [place] 00 the Medical morning Branch and 1 tablet in the evening. metoclopram 2022-0 Yes [id number] 10mg Take 1 [facility] 10 8-31 tablet by [facility] mg tablet 00:00: mouth [place] 00 every 6 Medical (six) Branch hours as needed for Nausea and Vomiting (N/V) or Gastroesop hageal reflux. famotidine 2022-0 Yes [id number] 20mg Take 1 [facility] 20 mg 8-31 tablet by [facility] tablet 00:00: mouth in [place] 00 the Medical morning Branch and 1 tablet in the evening. metoclopram 2022-0 Yes [id number] 10mg Take 1 [facility] 10 8-31 tablet by [facility] mg tablet 00:00: mouth [place] 00 every 6 Medical (six) Branch hours as needed for Nausea and Vomiting (N/V) or Gastroesop hageal reflux. famotidine 2022-0 Yes [id number] 20mg Take 1 [facility] 20 mg 8-31 tablet by [facility] tablet 00:00: mouth in [place] 00 the Medical morning Branch and 1 tablet in the evening. metoclopram 2022-0 Yes [id number] 10mg Take 1 [facility] 10 8-31 tablet by [facility] mg tablet 00:00: mouth [place] 00 every 6 Medical (six) Branch hours as needed for Nausea and Vomiting (N/V) or Gastroesop hageal reflux. famotidine 2022-0 Yes [id number] 20mg Take 1 [facility] 20 mg 8-31 tablet by [facility] tablet 00:00: mouth in [place] 00 the Medical morning Branch and 1 tablet in the evening. metoclopram 2022-0 Yes [id number] 10mg Take 1 [facility] 10 8-31 tablet by [facility] mg tablet 00:00: mouth [place] 00 every 6 Medical (six) Branch hours as needed for Nausea and Vomiting (N/V) or Gastroesop hageal reflux. famotidine 2022-0 Yes [id number] 20mg Take 1 [facility] 20 mg 8-31 tablet by [facility] tablet 00:00: mouth in [place] 00 the Medical morning Branch and 1 tablet in the evening. metoclopram 2022-0 Yes [id number] 10mg Take 1 [facility] 10 8-31 tablet by [facility] mg tablet 00:00: mouth [place] 00 every 6 Medical (six) Branch hours as needed for Nausea and Vomiting (N/V) or Gastroesop hageal reflux. famotidine 2022-0 Yes [id number] 20mg Take 1 [facility] 20 mg 8-31 tablet by [facility] tablet 00:00: mouth in [place] 00 the Medical morning Branch and 1 tablet in the evening. metoclopram 2022-0 Yes [id number] 10mg Take 1 [facility] 10 8-31 tablet by [facility] mg tablet 00:00: mouth [place] 00 every 6 Medical (six) Branch hours as needed for Nausea and Vomiting (N/V) or Gastroesop hageal reflux. famotidine 2022-0 Yes [id number] 20mg Take 1 [facility] 20 mg 8-31 tablet by [facility] tablet 00:00: mouth in [place] 00 the Medical morning Branch and 1 tablet in the evening. metoclopram 2022-0 Yes [id number] 10mg Take 1 [facility] 10 8-31 tablet by [facility] mg tablet 00:00: mouth [place] 00 every 6 Medical (six) Branch hours as needed for Nausea and Vomiting (N/V) or Gastroesop hageal reflux. famotidine 2022-0 Yes [id number] 20mg Take 1 [facility] 20 mg 8-31 tablet by [facility] tablet 00:00: mouth in [place] 00 the Medical morning Branch and 1 tablet in the evening. metoclopram 2022-0 Yes [id number] 10mg Take 1 [facility] 10 8-31 tablet by [facility] mg tablet 00:00: mouth [place] 00 every 6 Medical (six) Branch hours as needed for Nausea and Vomiting (N/V) or Gastroesop hageal reflux. famotidine 2022-0 Yes [id number] 20mg Take 1 [facility] 20 mg 8-31 tablet by [facility] tablet 00:00: mouth in [place] 00 the Medical morning Branch and 1 tablet in the evening. metoclopram 2022-0 Yes [id number] 10mg Take 1 [facility] 10 8-31 tablet by [facility] mg tablet 00:00: mouth [place] 00 every 6 Medical (six) Branch hours as needed for Nausea and Vomiting (N/V) or Gastroesop hageal reflux. famotidine 2022-0 Yes [id number] 20mg Take 1 [facility] 20 mg 8-31 tablet by [facility] tablet 00:00: mouth in [place] 00 the Medical morning Branch and 1 tablet in the evening. metoclopram 2022-0 Yes [id number] 10mg Take 1 [facility] 10 8-31 tablet by [facility] mg tablet 00:00: mouth [place] 00 every 6 Medical (six) Branch hours as needed for Nausea and Vomiting (N/V) or Gastroesop hageal reflux. famotidine 2022-0 Yes [id number] 20mg Take 1 [facility] 20 mg 8-31 tablet by [facility] tablet 00:00: mouth in [place] 00 the Medical morning Branch and 1 tablet in the evening. metoclopram 2022-0 Yes [id number] 10mg Take 1 [facility] 10 8-31 tablet by [facility] mg tablet 00:00: mouth [place] 00 every 6 Medical (six) Branch hours as needed for Nausea and Vomiting (N/V) or Gastroesop hageal reflux. famotidine 2022-0 Yes [id number] 20mg Take 1 [facility] 20 mg 8-31 tablet by [facility] tablet 00:00: mouth in [place] 00 the Medical morning Branch and 1 tablet in the evening. metoclopram 2022-0 Yes [id number] 10mg Take 1 [facility] 10 8-31 tablet by [facility] mg tablet 00:00: mouth [place] 00 every 6 Medical (six) Branch hours as needed for Nausea and Vomiting (N/V) or Gastroesop hageal reflux. famotidine 2022-0 Yes [id number] 20mg Take 1 [facility] 20 mg 8-31 tablet by [facility] tablet 00:00: mouth in [place] 00 the Medical morning Branch and 1 tablet in the evening. metoclopram 2022-0 Yes [id number] 10mg Take 1 [facility] 10 8-31 tablet by [facility] mg tablet 00:00: mouth [place] 00 every 6 Medical (six) Branch hours as needed for Nausea and Vomiting (N/V) or Gastroesop hageal reflux. famotidine 2022-0 Yes [id number] 20mg Take 1 [facility] 20 mg 8-31 tablet by [facility] tablet 00:00: mouth in [place] 00 the Medical morning Branch and 1 tablet in the evening. metoclopram 2022-0 Yes [id number] 10mg Take 1 [facility] 10 8-31 tablet by [facility] mg tablet 00:00: mouth [place] 00 every 6 Medical (six) Branch hours as needed for Nausea and Vomiting (N/V) or Gastroesop hageal reflux. famotidine 2022-0 Yes [id number] 20mg Take 1 [facility] 20 mg 8-31 tablet by [facility] tablet 00:00: mouth in [place] 00 the Medical morning Branch and 1 tablet in the evening. metoclopram 2022-0 Yes [id number] 10mg Take 1 [facility] 10 8-31 tablet by [facility] mg tablet 00:00: mouth [place] 00 every 6 Medical (six) Branch hours as needed for Nausea and Vomiting (N/V) or Gastroesop hageal reflux. famotidine 2022-0 Yes [id number] 20mg Take 1 [facility] 20 mg 8-31 tablet by [facility] tablet 00:00: mouth in [place] 00 the Medical morning Branch and 1 tablet in the evening. metoclopram 2022-0 Yes [id number] 10mg Take 1 [facility] 10 8-31 tablet by [facility] mg tablet 00:00: mouth [place] 00 every 6 Medical (six) Branch hours as needed for Nausea and Vomiting (N/V) or Gastroesop hageal reflux. famotidine 2022-0 Yes [id number] 20mg Take 1 [facility] 20 mg 8-31 tablet by [facility] tablet 00:00: mouth in [place] 00 the Medical morning Branch and 1 tablet in the evening. metoclopram 2022-0 Yes [id number] 10mg Take 1 [facility] 10 8-31 tablet by [facility] mg tablet 00:00: mouth [place] 00 every 6 Medical (six) Branch hours as needed for Nausea and Vomiting (N/V) or Gastroesop hageal reflux. famotidine 2022-0 Yes [id number] 20mg Take 1 [facility] 20 mg 8-31 tablet by [facility] tablet 00:00: mouth in [place] 00 the Medical morning Branch and 1 tablet in the evening. metoclopram 2022-0 Yes [id number] 10mg Take 1 [facility] 10 8-31 tablet by [facility] mg tablet 00:00: mouth [place] [address] every 6 Medical (six) Branch hours as needed for Nausea and Vomiting (N/V) or Gastroesop hageal reflux. famotidine 2022-0 Yes [id number] 20mg Take 1 [facility] 20 mg 8-31 tablet by [facility] tablet 00:00: mouth in [place] 00 the Medical morning Branch and 1 tablet in the evening. metoclopram 2022-0 Yes [id number] 10mg Take 1 [facility] 10 8-31 tablet by [facility] mg tablet 00:00: mouth [place] 00 every 6 Medical (six) Branch hours as needed for Nausea and Vomiting (N/V) or Gastroesop hageal reflux. famotidine 2022-0 Yes [id number] 20mg Take 1 [facility] 20 mg 8-31 tablet by [facility] tablet 00:00: mouth in [place] 00 the Medical morning Branch and 1 tablet in the evening. metoclopram 2022-0 Yes [id number] 10mg Take 1 [facility] 10 8-31 tablet by [facility] mg tablet 00:00: mouth [place] 00 every 6 Medical (six) Branch hours as needed for Nausea and Vomiting (N/V) or Gastroesop hageal reflux. famotidine 2022-0 Yes [id number] 20mg Take 1 [facility] 20 mg 8-31 tablet by [facility] tablet 00:00: mouth in [place] 00 the Medical morning Branch and 1 tablet in the evening. metoclopram 2022-0 Yes [id number] 10mg Take 1 [facility] 10 8-31 tablet by [facility] mg tablet 00:00: mouth [place] 00 every 6 Medical (six) Branch hours as needed for Nausea and Vomiting (N/V) or Gastroesop hageal reflux. famotidine 2022-0 Yes [id number] 20mg Take 1 [facility] 20 mg 8-31 tablet by [facility] tablet 00:00: mouth in [place] 00 the Medical morning Branch and 1 tablet in the evening. metoclopram 2022-0 Yes [id number] 10mg Take 1 [facility] 10 8-31 tablet by [facility] mg tablet 00:00: mouth [place] 00 every 6 Medical (six) Branch hours as needed for Nausea and Vomiting (N/V) or Gastroesop hageal reflux. famotidine 2022-0 Yes [id number] 20mg Take 1 [facility] 20 mg 8-31 tablet by [facility] tablet 00:00: mouth in [place] [address] the Medical morning Branch and 1 tablet in the evening. metoclopram 2022-0 Yes [id number] 10mg Take 1 [facility] 10 8-31 tablet by [facility] mg tablet 00:00: mouth [place] [address] every 6 Medical (six) Branch hours as needed for Nausea and Vomiting (N/V) or Gastroesop hageal reflux. famotidine 2022-0 Yes [id number] 20mg Take 1 [facility] 20 mg 8-31 tablet by [facility] tablet 00:00: mouth in [place] 00 the Medical morning Branch and 1 tablet in the evening. metoclopram 2022-0 Yes [id number] 10mg Take 1 [facility] 10 8-31 tablet by [facility] mg tablet 00:00: mouth [place] 00 every 6 Medical (six) Branch hours as needed for Nausea and Vomiting (N/V) or Gastroesop hageal reflux. famotidine 2022-0 Yes [id number] 20mg Take 1 [facility] 20 mg 8-31 tablet by [facility] tablet 00:00: mouth in [place] [address] the Medical morning Branch and 1 tablet in the evening. metoclopram 2022-0 Yes [id number] 10mg Take 1 [facility] 10 8-31 tablet by [facility] mg tablet 00:00: mouth [place] 00 every 6 Medical (six) Branch hours as needed for Nausea and Vomiting (N/V) or Gastroesop hageal reflux. famotidine 2022-0 Yes [id number] 20mg Take 1 [facility] 20 mg 8-31 tablet by [facility] tablet 00:00: mouth in [place] 00 the Medical morning Branch and 1 tablet in the evening. metoclopram 2022-0 Yes [id number] 10mg Take 1 [facility] 10 8-31 tablet by [facility] mg tablet 00:00: mouth [place] 00 every 6 Medical (six) Branch hours as needed for Nausea and Vomiting (N/V) or Gastroesop hageal reflux. famotidine 2022-0 Yes [id number] 20mg Take 1 [facility] 20 mg 8-31 tablet by [facility] tablet 00:00: mouth in [place] 00 the Medical morning Branch and 1 tablet in the evening. metoclopram 2022-0 Yes [id number] 10mg Take 1 [facility] 10 8-31 tablet by [facility] mg tablet 00:00: mouth [place] 00 every 6 Medical (six) Branch hours as needed for Nausea and Vomiting (N/V) or Gastroesop hageal reflux. famotidine 2022-0 Yes [id number] 20mg Take 1 [facility] 20 mg 8-31 tablet by [facility] tablet 00:00: mouth in [place] 00 the Medical morning Branch and 1 tablet in the evening. metoclopram 2022-0 Yes [id number] 10mg Take 1 [facility] 10 8-31 tablet by [facility] mg tablet 00:00: mouth [place] 00 every 6 Medical (six) Branch hours as needed for Nausea and Vomiting (N/V) or Gastroesop hageal reflux. famotidine 2022-0 Yes [id number] 20mg Take 1 [facility] 20 mg 8-31 tablet by [facility] tablet 00:00: mouth in [place] 00 the Medical morning Branch and 1 tablet in the evening. metoclopram 2022-0 Yes [id number] 10mg Take 1 [facility] 10 8-31 tablet by [facility] mg tablet 00:00: mouth [place] 00 every 6 Medical (six) Branch hours as needed for Nausea and Vomiting (N/V) or Gastroesop hageal reflux. famotidine 2022-0 Yes [id number] 20mg Take 1 [facility] 20 mg 8-31 tablet by [facility] tablet 00:00: mouth in [place] 00 the Medical morning Branch and 1 tablet in the evening. metoclopram 2022-0 Yes [id number] 10mg Take 1 [facility] 10 8-31 tablet by [facility] mg tablet 00:00: mouth [place] 00 every 6 Medical (six) Branch hours as needed for Nausea and Vomiting (N/V) or Gastroesop hageal reflux. famotidine 2022-0 Yes [id number] 20mg Take 1 [facility] 20 mg 8-31 tablet by [facility] tablet 00:00: mouth in [place] 00 the Medical morning Branch and 1 tablet in the evening. metoclopram 2022-0 Yes [id number] 10mg Take 1 [facility] HCl 10 8-31 tablet by [facility] mg tablet 00:00: mouth [place] 00 every 6 Medical (six) Branch hours as needed for Nausea and Vomiting (N/V) or Gastroesop hageal reflux. famotidine 2022-0 Yes [id number] 20mg Take 1 [facility] 20 mg 8-31 tablet by [facility] of tablet 00:00: mouth in [place] 00 the Medical morning Branch and 1 tablet in the evening. metoclopram 2022-0 Yes [id number] 10mg Take 1 [facility] HCl 10 8-31 tablet by [facility] of mg tablet 00:00: mouth [place] 00 every 6 Medical (six) Branch hours as needed for Nausea and Vomiting (N/V) or Gastroesop hageal reflux. famotidine 2022-0 Yes [id number] 20mg Take 1 [facility] 20 mg 8-31 tablet by [facility] of tablet 00:00: mouth in [place] 00 the Medical morning Branch and 1 tablet in the evening. metoclopram 2022-0 Yes [id number] 10mg Take 1 [facility] HCl 10 8-31 tablet by [facility] of mg tablet 00:00: mouth [place] 00 every 6 Medical (six) Branch hours as needed for Nausea and Vomiting (N/V) or Gastroesop hageal reflux. famotidine 2022-0 Yes [id number] 20mg Take 1 [facility] 20 mg 8-31 tablet by [facility] of tablet 00:00: mouth in [place] 00 the Medical morning Branch and 1 tablet in the evening. metoclopram 2022-0 Yes [id number] 10mg Take 1 [facility] HCl 10 8-31 tablet by [facility] of mg tablet 00:00: mouth [place] 00 every 6 Medical (six) Branch hours as needed for Nausea and Vomiting (N/V) or Gastroesop hageal reflux. famotidine 2022-0 Yes [id number] 20mg Take 1 [facility] 20 mg 8-31 tablet by [facility] of tablet 00:00: mouth in [place] 00 the Medical morning Branch and 1 tablet in the evening. metoclopram 2022-0 Yes [id number] 10mg Take 1 [facility] HCl 10 8-31 tablet by [facility] of mg tablet 00:00: mouth [place] 00 every 6 Medical (six) Branch hours as needed for Nausea and Vomiting (N/V) or Gastroesop hageal reflux. famotidine 2022-0 Yes [id number] 20mg Take 1 [facility] 20 mg 8-31 tablet by [facility] of tablet 00:00: mouth in [place] 00 the Medical morning Branch and 1 tablet in the evening. metoclopram 2022-0 Yes [id number] 10mg Take 1 [facility] HCl 10 8-31 tablet by [facility] of mg tablet 00:00: mouth [place] 00 every 6 Medical (six) Branch hours as needed for Nausea and Vomiting (N/V) or Gastroesop hageal reflux. famotidine 2022-0 Yes [id number] 20mg Take 1 [facility] 20 mg 8-31 tablet by [facility] of tablet 00:00: mouth in [place] 00 the Medical morning Branch and 1 tablet in the evening. metoclopram 2022-0 Yes [id number] 10mg Take 1 [facility] HCl 10 8-31 tablet by [facility] of mg tablet 00:00: mouth [place] 00 every 6 Medical (six) Branch hours as needed for Nausea and Vomiting (N/V) or Gastroesop hageal reflux. famotidine 2022-0 Yes [id number] 20mg Take 1 [facility] 20 mg 8-31 tablet by [facility] of tablet 00:00: mouth in [place] 00 the Medical morning Branch and 1 tablet in the evening. metoclopram 2022-0 Yes [id number] 10mg Take 1 [facility] HCl 10 8-31 tablet by [facility] of mg tablet 00:00: mouth [place] 00 every 6 Medical (six) Branch hours as needed for Nausea and Vomiting (N/V) or Gastroesop hageal reflux. famotidine 2022-0 Yes [id number] 20mg Take 1 [facility] 20 mg 8-31 tablet by [facility] of tablet 00:00: mouth in [place] 00 the Medical morning Branch and 1 tablet in the evening. metoclopram 2022-0 Yes [id number] 10mg Take 1 [facility] HCl 10 8-31 tablet by [facility] of mg tablet 00:00: mouth [place] 00 every 6 Medical (six) Branch hours as needed for Nausea and Vomiting (N/V) or Gastroesop hageal reflux. famotidine 2022-0 Yes [id number] 20mg Take 1 [facility] 20 mg 8-31 tablet by [facility] of tablet 00:00: mouth in [place] 00 the Medical morning Branch and 1 tablet in the evening. metoclopram 2022-0 Yes [id number] 10mg Take 1 [facility] HCl 10 8-31 tablet by [facility] of mg tablet 00:00: mouth [place] 00 every 6 Medical (six) Branch hours as needed for Nausea and Vomiting (N/V) or Gastroesop hageal reflux. famotidine 2022-0 Yes [id number] 20mg Take 1 [facility] 20 mg 8-31 tablet by [facility] of tablet 00:00: mouth in [place] 00 the Medical morning Branch and 1 tablet in the evening. metoclopram 2022-0 Yes [id number] 10mg Take 1 [facility] HCl 10 8-31 tablet by [facility] of mg tablet 00:00: mouth [place] 00 every 6 Medical (six) Branch hours as needed for Nausea and Vomiting (N/V) or Gastroesop hageal reflux. famotidine 2022-0 Yes [id number] 20mg Take 1 [facility] 20 mg 8-31 tablet by [facility] of tablet 00:00: mouth in [place] 00 the Medical morning Branch and 1 tablet in the evening. metoclopram 2022-0 Yes [id number] 10mg Take 1 [facility] HCl 10 8-31 tablet by [facility] of mg tablet 00:00: mouth [place] 00 every 6 Medical (six) Branch hours as needed for Nausea and Vomiting (N/V) or Gastroesop hageal reflux. famotidine 2022-0 Yes [id number] 20mg Take 1 [facility] 20 mg 8-31 tablet by [facility] of tablet 00:00: mouth in [place] 00 the Medical morning Branch and 1 tablet in the evening. metoclopram 2022-0 Yes [id number] 10mg Take 1 [facility] HCl 10 8-31 tablet by [facility] of mg tablet 00:00: mouth [place] 00 every 6 Medical (six) Branch hours as needed for Nausea and Vomiting (N/V) or Gastroesop hageal reflux. famotidine 2022-0 Yes [id number] 20mg Take 1 [facility] 20 mg 8-31 tablet by [facility] of tablet 00:00: mouth in [place] 00 the Medical morning Branch and 1 tablet in the evening. metoclopram 2022-0 Yes [id number] 10mg Take 1 [facility] HCl 10 8-31 tablet by [facility] of mg tablet 00:00: mouth [place] 00 every 6 Medical (six) Branch hours as needed for Nausea and Vomiting (N/V) or Gastroesop hageal reflux. famotidine 2022-0 Yes [id number] 20mg Take 1 [facility] 20 mg 8-31 tablet by [facility] of tablet 00:00: mouth in [place] 00 the Medical morning Branch and 1 tablet in the evening. metoclopram 2022-0 Yes [id number] 10mg Take 1 [facility] HCl 10 8-31 tablet by [facility] of mg tablet 00:00: mouth [place] 00 every 6 Medical (six) Branch hours as needed for Nausea and Vomiting (N/V) or Gastroesop hageal reflux. famotidine 2022-0 Yes [id number] 20mg Take 1 [facility] 20 mg 8-31 tablet by [facility] of tablet 00:00: mouth in [place] 00 the Medical morning Branch and 1 tablet in the evening. metoclopram 2022-0 Yes [id number] 10mg Take 1 [facility] HCl 10 8-31 tablet by [facility] of mg tablet 00:00: mouth [place] 00 every 6 Medical (six) Branch hours as needed for Nausea and Vomiting (N/V) or Gastroesop hageal reflux. famotidine 2022-0 Yes [id number] 20mg Take 1 [facility] 20 mg 8-31 tablet by [facility] of tablet 00:00: mouth in [place] 00 the Medical morning Branch and 1 tablet in the evening. metoclopram 2022-0 Yes [id number] 10mg Take 1 [facility] HCl 10 8-31 tablet by [facility] of mg tablet 00:00: mouth [place] 00 every 6 Medical (six) Branch hours as needed for Nausea and Vomiting (N/V) or Gastroesop hageal reflux. famotidine 2022-0 Yes [id number] 20mg Take 1 [facility] 20 mg 8-31 tablet by [facility] of tablet 00:00: mouth in [place] 00 the Medical morning Branch and 1 tablet in the evening. metoclopram 2022-0 Yes [id number] 10mg Take 1 [facility] HCl 10 8-31 tablet by [facility] of mg tablet 00:00: mouth [place] 00 every 6 Medical (six) Branch hours as needed for Nausea and Vomiting (N/V) or Gastroesop hageal reflux. famotidine 2022-0 Yes [id number] 20mg Take 1 [facility] 20 mg 8-31 tablet by [facility] of tablet 00:00: mouth in [place] 00 the Medical morning Branch and 1 tablet in the evening. metoclopram 2022-0 Yes [id number] 10mg Take 1 [facility] HCl 10 8-31 tablet by [facility] of mg tablet 00:00: mouth [place] [address] every 6 Medical (six) Branch hours as needed for Nausea and Vomiting (N/V) or Gastroesop hageal reflux. famotidine 2022-0 Yes [id number] 20mg Take 1 [facility] 20 mg 8-31 tablet by [facility] of tablet 00:00: mouth in [place] 00 the Medical morning Branch and 1 tablet in the evening. metoclopram 2022-0 Yes [id number] 10mg Take 1 [facility] HCl 10 8-31 tablet by [facility] of mg tablet 00:00: mouth [place] 00 every 6 Medical (six) Branch hours as needed for Nausea and Vomiting (N/V) or Gastroesop hageal reflux. famotidine 2022-0 Yes [id number] 20mg Take 1 [facility] 20 mg 8-31 tablet by [facility] of tablet 00:00: mouth in [place] 00 the Medical morning Branch and 1 tablet in the evening. metoclopram 2022-0 Yes [id number] 10mg Take 1 [facility] HCl 10 8-31 tablet by [facility] of mg tablet 00:00: mouth [place] 00 every 6 Medical (six) Branch hours as needed for Nausea and Vomiting (N/V) or Gastroesop hageal reflux. famotidine 2022-0 Yes [id number] 20mg Take 1 [facility] 20 mg 8-31 tablet by [facility] of tablet 00:00: mouth in [place] 00 the Medical morning Branch and 1 tablet in the evening. metoclopram 2022-0 Yes [id number] 10mg Take 1 [facility] HCl 10 8-31 tablet by [facility] of mg tablet 00:00: mouth [place] 00 every 6 Medical (six) Branch hours as needed for Nausea and Vomiting (N/V) or Gastroesop hageal reflux. famotidine 2022-0 Yes [id number] 20mg Take 1 [facility] 20 mg 8-31 tablet by [facility] of tablet 00:00: mouth in [place] 00 the Medical morning Branch and 1 tablet in the evening. metoclopram 2022-0 Yes [id number] 10mg Take 1 [facility] HCl 10 8-31 tablet by [facility] of mg tablet 00:00: mouth [place] 00 every 6 Medical (six) Branch hours as needed for Nausea and Vomiting (N/V) or Gastroesop hageal reflux. famotidine 2022-0 Yes [id number] 20mg Take 1 [facility] 20 mg 8-31 tablet by [facility] of tablet 00:00: mouth in [place] 00 the Medical morning Branch and 1 tablet in the evening. metoclopram 2022-0 Yes [id number] 10mg Take 1 [facility] HCl 10 8-31 tablet by [facility] of mg tablet 00:00: mouth [place] [address] every 6 Medical (six) Branch hours as needed for Nausea and Vomiting (N/V) or Gastroesop hageal reflux. famotidine 2022-0 Yes [id number] 20mg Take 1 [facility] 20 mg 8-31 tablet by [facility] of tablet 00:00: mouth in [place] 00 the Medical morning Branch and 1 tablet in the evening. metoclopram 2022-0 Yes [id number] 10mg Take 1 [facility] HCl 10 8-31 tablet by [facility] of mg tablet 00:00: mouth [place] [address] every 6 Medical (six) Branch hours as needed for Nausea and Vomiting (N/V) or Gastroesop hageal reflux. famotidine 2022-0 Yes [id number] 20mg Take 1 [facility] 20 mg 8-31 tablet by [facility] of tablet 00:00: mouth in [place] 00 the Medical morning Branch and 1 tablet in the evening. metoclopram 2022-0 Yes [id number] 10mg Take 1 [facility] HCl 10 8-31 tablet by [facility] of mg tablet 00:00: mouth [place] 00 every 6 Medical (six) Branch hours as needed for Nausea and Vomiting (N/V) or Gastroesop hageal reflux. famotidine Yes [id number] 20mg Take 1 [facility] 20 mg 8-31 tablet by [facility] of tablet 00:00: mouth in [place] 00 the Medical morning Branch and 1 tablet in the evening. metoclopram 2022- No [id number] 10mg Take 1 [facility] HCl 10 8-31 02-10 tablet by [facility] of mg tablet 00:00: 00:00 mouth [place] 00 :00 every 6 Medical (six) Branch hours as needed for Nausea and Vomiting (N/V) or Gastroesop hageal reflux. famotidine 2022- No [id number] 20mg Take 1 [facility] 20 mg 8-31 02-10 tablet by [facility] of tablet 00:00: 00:00 mouth in [place] 00 :00 the Medical morning Branch and 1 tablet in the evening. metoclopram 2022- No [id number] 10mg Take 1 [facility] HCl 10 8-31 02-10 tablet by [facility] of mg tablet 00:00: 00:00 mouth [place] 00 :00 every 6 Medical (six) Branch hours as needed for Nausea and Vomiting (N/V) or Gastroesop hageal reflux. famotidine 2022- No [id number] 20mg Take 1 [facility] 20 mg 8-31 02-10 tablet by [facility] of tablet 00:00: 00:00 mouth in [place] 00 :00 the Medical morning Branch and 1 tablet in the evening. doxylamine 2021-0 Yes [id number] 25mg Take 1 [facility] 25 mg 7-28 tablet by [facility] of tablet 00:00: mouth at [place] [address] bedtime. Medical Branch doxylamine 2021-0 Yes [id number] 25mg Take 1 [facility] 25 mg 7-28 tablet by [facility] of tablet 00:00: mouth at [place] [address] bedtime. Medical Branch doxylamine 2021-0 Yes [id number] 25mg Take 1 [facility] 25 mg 7-28 tablet by [facility] of tablet 00:00: mouth at [place] [address] bedtime. Medical Branch doxylamine 2021-0 Yes [id number] 25mg Take 1 [facility] 25 mg 7-28 tablet by [facility] of tablet 00:00: mouth at [place] [address] bedtime. Medical Branch doxylamine 2021-0 Yes [id number] 25mg Take 1 [facility] 25 mg 7-28 tablet by [facility] of tablet 00:00: mouth at [place] [address] bedtime. Medical Branch doxylamine 0 Yes [id number] 25mg Take 1 [facility] 25 mg 7-28 tablet by [facility] of tablet 00:00: mouth at [place] [address] bedtime. Medical Branch doxylamine 0 Yes [id number] 25mg Take 1 [facility] 25 mg 7-28 tablet by [facility] of tablet 00:00: mouth at [place] [address] bedtime. Medical Branch doxylamine Yes [id number] 25mg Take 1 [facility] 25 mg 7-28 tablet by [facility] of tablet 00:00: mouth at [place] [address] bedtime. Medical Branch doxylamine Yes [id number] 25mg Take 1 [facility] 25 mg 7-28 tablet by it[facility] of tablet 00:00: mouth at [place] [address] bedtime. Medical Branch doxylamine 0 Yes [id number] 25mg Take 1 [facility] 25 mg 7-28 tablet by [facility] of tablet 00:00: mouth at [place] [address] bedtime. Medical Branch doxylamine 0 Yes [id number] 25mg Take 1 [facility] 25 mg 7-28 tablet by [facility] of tablet 00:00: mouth at [place] [address] bedtime. Medical Branch doxylamine 0 Yes [id number] 25mg Take 1 [facility] 25 mg 7-28 tablet by [facility] of tablet 00:00: mouth at [place] [address] bedtime. Medical Branch doxylamine 2021-0 Yes [id number] 25mg Take 1 [facility] 25 mg 7-28 tablet by it[facility] of tablet 00:00: mouth at [place] [address] bedtime. Medical Branch doxylamine 2021-0 Yes [id number] 25mg Take 1 [facility] 25 mg 7-28 tablet by [facility] of tablet 00:00: mouth at [place] [address] bedtime. Medical Branch doxylamine 2021-0 Yes [id number] 25mg Take 1 [facility] 25 mg 7-28 tablet by [facility] of tablet 00:00: mouth at [place] [address] bedtime. Medical Branch doxylamine 2021-0 Yes [id number] 25mg Take 1 [facility] 25 mg 7-28 tablet by [facility] of tablet 00:00: mouth at [place] [address] bedtime. Medical Branch doxylamine 0 Yes [id number] 25mg Take 1 [facility] 25 mg 7-28 tablet by it[facility] of tablet 00:00: mouth at [place] [address] bedtime. Medical Branch doxylamine 0 Yes [id number] 25mg Take 1 [facility] 25 mg 7-28 tablet by it[facility] of tablet 00:00: mouth at [place] [address] bedtime. Medical Branch doxylamine 0 Yes [id number] 25mg Take 1 [facility] 25 mg 7-28 tablet by ity of tablet 00:00: mouth at [place] [address] bedtime. Medical Branch doxylamine Yes [id number] 25mg Take 1 [facility] 25 mg 7-28 tablet by it[facility] of tablet 00:00: mouth at [place] [address] bedtime. Medical Branch doxylamine Yes [id number] 25mg Take 1 [facility] 25 mg 7-28 tablet by [facility] of tablet 00:00: mouth at [place] [address] bedtime. Medical Branch doxylamine 0 Yes [id number] 25mg Take 1 [facility] 25 mg 7-28 tablet by it[facility] of tablet 00:00: mouth at [place] [address] bedtime. Medical Branch doxylamine Yes [id number] 25mg Take 1 [facility] 25 mg 7-28 tablet by ity of tablet 00:00: mouth at [place] [address] bedtime. Medical Branch doxylamine 0 Yes [id number] 25mg Take 1 [facility] 25 mg 7-28 tablet by it[facility] of tablet 00:00: mouth at [place] [address] bedtime. Medical Branch doxylamine 0 Yes [id number] 25mg Take 1 [facility] 25 mg 7-28 tablet by it[facility] of tablet 00:00: mouth at [place] [address] bedtime. Medical Branch doxylamine 0 Yes [id number] 25mg Take 1 [facility] 25 mg 7-28 tablet by ity of tablet 00:00: mouth at [place] [address] bedtime. Medical Branch doxylamine 0 Yes [id number] 25mg Take 1 [facility] 25 mg 7-28 tablet by ity of tablet 00:00: mouth at [place] [address] bedtime. Medical Branch doxylamine 2021-0 Yes [id number] 25mg Take 1 [facility] 25 mg 7-28 tablet by it[facility] of tablet 00:00: mouth at [place] 00 bedtime. Medical Branch doxylamine Yes [id number] 25mg Take 1 [facility] 25 mg 7-28 tablet by ity of tablet 00:00: mouth at [place] [address] bedtime. [facility] doxylamine Yes [id number] 25mg Take 1 [facility] 25 mg 7-28 tablet by ity of tablet 00:00: mouth at [place] 00 bedtime. [facility] doxylamine Yes [id number] 25mg Take 1 [facility] 25 mg 7-28 tablet by ity of tablet 00:00: mouth at [place] 00 bedtime. [facility] doxylamine Yes [id number] 25mg Take 1 [facility] 25 mg 7-28 tablet by ity of tablet 00:00: mouth at [place] [address] bedtime. [facility] doxylamine Yes [id number] 25mg Take 1 [facility] 25 mg 7-28 tablet by ity of tablet 00:00: mouth at [place] [address] bedtime. [facility] doxylamine 2021- No [id number] 25mg Take 1 [facility] 25 mg 7-28 10-21 tablet by ity of tablet 00:00: 00:00 mouth at [place] 00 :00 bedtime. [facility] doxylamine 2021- No [id number] 25mg Take 1 [facility] 25 mg 7-28 10-21 tablet by ity of tablet 00:00: 00:00 mouth at [place] 00 :00 bedtime. [facility] doxylamine 2021- No [id number] 25mg Take 1 [facility] 25 mg 7-28 10-21 tablet by ity of tablet 00:00: 00:00 mouth at [place] 00 :00 bedtime. [facility] doxylamine 2021- No [id number] 25mg Take 1 [facility] 25 mg 7-28 10-21 tablet by ity of tablet 00:00: 00:00 mouth at [place] 00 :00 bedtime. [facility] doxylamine- Yes [id number] Doxylamine [facility] pyridoxine, 02-07 10 ity of [...] mg (4 tablets) per day). albuterol Yes [id number] 2{puff} Inhale 2 [facility] 90 7-08 Puffs ity of mcg/actuati 00:00: every 6 [place] as on inhaler 00 (six) Medical hours as Branch needed for Shortness of Breath. doxylamine- Yes [id number] Doxylamine [facility] pyridoxine, 02-07 10 ity of [...] mg (4 tablets) per day). albuterol Yes [id number] 2{puff} Inhale 2 [facility] 90 7-08 Puffs ity of mcg/actuati 00:00: every 6 [place] as on inhaler 00 (six) Medical hours as Branch needed for Shortness of Breath. doxylamine- Yes [id number] Doxylamine [facility] pyridoxine, 02-07 10 ity of [...] mg (4 tablets) per day). albuterol Yes [id number] 2{puff} Inhale 2 [facility] 90 7-08 Puffs ity of mcg/actuati 00:00: every 6 [place] as on inhaler 00 (six) Medical hours as Branch needed for Shortness of Breath. doxylamine- Yes [id number] Doxylamine [facility] pyridoxine, 02-07 10 ity of [...] mg (4 tablets) per day). albuterol Yes [id number] 2{puff} Inhale 2 [facility] 90 7-08 Puffs ity of mcg/actuati 00:00: every 6 [place] as on inhaler 00 (six) Medical hours as Branch needed for Shortness of Breath. doxylamine- Yes [id number] Doxylamine [facility] pyridoxine, 02-07 10 ity of [...] mg (4 tablets) per day). albuterol Yes [id number] 2{puff} Inhale 2 [facility] 90 7-08 Puffs ity of mcg/actuati 00:00: every 6 [place] as on inhaler 00 (six) Medical hours as Branch needed for Shortness of Breath. doxylamine- Yes [id number] Doxylamine [facility] pyridoxine, 02-07 10 ity of [...] mg (4 tablets) per day). albuterol Yes [id number] 2{puff} Inhale 2 [facility] 90 7-08 Puffs ity of mcg/actuati 00:00: every 6 [place] as on inhaler 00 (six) Medical hours as Branch needed for Shortness of Breath. doxylamine- Yes [id number] Doxylamine [facility] pyridoxine, 02-07 10 ity of [...] mg (4 tablets) per day). albuterol Yes [id number] 2{puff} Inhale 2 [facility] 90 7-08 Puffs ity of mcg/actuati 00:00: every 6 [place] as on inhaler 00 (six) Medical hours as Branch needed for Shortness of Breath. doxylamine- Yes [id number] Doxylamine [facility] pyridoxine, 02-07 10 ity of [...] mg (4 tablets) per day). albuterol Yes [id number] 2{puff} Inhale 2 [facility] 90 7-08 Puffs ity of mcg/actuati 00:00: every 6 [place] as on inhaler 00 (six) Medical hours as Branch needed for Shortness of Breath. doxylamine- Yes [id number] Doxylamine [facility] pyridoxine, 02-07 10 ity of [...] mg (4 tablets) per day). albuterol Yes [id number] 2{puff} Inhale 2 [facility] 90 7-08 Puffs ity of mcg/actuati 00:00: every 6 [place] as on inhaler 00 (six) Medical hours as Branch needed for Shortness of Breath. doxylamine- Yes [id number] Doxylamine [facility] pyridoxine, 02-07 10 ity of [...] mg (4 tablets) per day). albuterol Yes [id number] 2{puff} Inhale 2 [facility] 90 7-08 Puffs ity of mcg/actuati 00:00: every 6 [place] as on inhaler 00 (six) Medical hours as Branch needed for Shortness of Breath. doxylamine- Yes [id number] Doxylamine [facility] pyridoxine, 02-07 10 ity of [...] mg (4 tablets) per day). albuterol Yes [id number] 2{puff} Inhale 2 [facility] 90 7-08 Puffs ity of mcg/actuati 00:00: every 6 [place] as on inhaler 00 (six) Medical hours as Branch needed for Shortness of Breath. doxylamine- Yes [id number] Doxylamine [facility] pyridoxine, 02-07 10 ity of [...] mg (4 tablets) per day). albuterol Yes [id number] 2{puff} Inhale 2 [facility] 90 7-08 Puffs ity of mcg/actuati 00:00: every 6 [place] as on inhaler 00 (six) Medical hours as Branch needed for Shortness of Breath. doxylamine- Yes [id number] Doxylamine [facility] pyridoxine, 02-07 10 ity of [...] mg (4 tablets) per day). albuterol Yes [id number] 2{puff} Inhale 2 [facility] 90 7-08 Puffs ity of mcg/actuati 00:00: every 6 [place] as on inhaler 00 (six) Medical hours as Branch needed for Shortness of Breath. doxylamine- Yes [id number] Doxylamine [facility] pyridoxine, 02-07 10 ity of [...] mg (4 tablets) per day). albuterol Yes [id number] 2{puff} Inhale 2 [facility] 90 7-08 Puffs ity of mcg/actuati 00:00: every 6 [place] as on inhaler 00 (six) Medical hours as Branch needed for Shortness of Breath. doxylamine- Yes [id number] Doxylamine [facility] pyridoxine, 02-07 10 ity of [...] mg (4 tablets) per day). albuterol Yes [id number] 2{puff} Inhale 2 [facility] 90 7-08 Puffs ity of mcg/actuati 00:00: every 6 [place] as on inhaler 00 (six) Medical hours as Branch needed for Shortness of Breath. doxylamine- Yes [id number] Doxylamine [facility] pyridoxine, 02-07 10 ity of [...] mg (4 tablets) per day). albuterol Yes [id number] 2{puff} Inhale 2 [facility] 90 7-08 Puffs ity of mcg/actuati 00:00: every 6 [place] as on inhaler 00 (six) Medical hours as Branch needed for Shortness of Breath. doxylamine- Yes [id number] Doxylamine [facility] pyridoxine, 02-07 10 ity of [...] mg (4 tablets) per day). albuterol Yes [id number] 2{puff} Inhale 2 [facility] 90 7-08 Puffs ity of mcg/actuati 00:00: every 6 [place] as on inhaler 00 (six) Medical hours as Branch needed for Shortness of Breath. doxylamine- Yes [id number] Doxylamine [facility] pyridoxine, 02-07 10 ity of [...] mg (4 tablets) per day). albuterol Yes [id number] 2{puff} Inhale 2 [facility] 90 7-08 Puffs ity of mcg/actuati 00:00: every 6 [place] as on inhaler 00 (six) Medical hours as Branch needed for Shortness of Breath. doxylamine- Yes [id number] Doxylamine [facility] pyridoxine, 02-07 10 ity of [...] mg (4 tablets) per day). albuterol Yes [id number] 2{puff} Inhale 2 [facility] 90 7-08 Puffs ity of mcg/actuati 00:00: every 6 [place] as on inhaler 00 (six) Medical hours as Branch needed for Shortness of Breath. doxylamine- Yes [id number] Doxylamine [facility] pyridoxine, 02-07 10 ity of [...] mg (4 tablets) per day). albuterol Yes [id number] 2{puff} Inhale 2 [facility] 90 7-08 Puffs ity of mcg/actuati 00:00: every 6 [place] as on inhaler 00 (six) Medical hours as Branch needed for Shortness of Breath. doxylamine- Yes [id number] Doxylamine [facility] pyridoxine, 02-07 10 ity of [...] mg (4 tablets) per day). albuterol Yes [id number] 2{puff} Inhale 2 [facility] 90 7-08 Puffs ity of mcg/actuati 00:00: every 6 [place] as on inhaler 00 (six) Medical hours as Branch needed for Shortness of Breath. doxylamine- Yes [id number] Doxylamine [facility] pyridoxine, 02-07 10 ity of [...] mg (4 tablets) per day). albuterol Yes [id number] 2{puff} Inhale 2 [facility] 90 7-08 Puffs ity of mcg/actuati 00:00: every 6 [place] as on inhaler 00 (six) Medical hours as Branch needed for Shortness of Breath. doxylamine- Yes [id number] Doxylamine [facility] pyridoxine, 02-07 10 ity of [...] mg (4 tablets) per day). albuterol Yes [id number] 2{puff} Inhale 2 [facility] 90 7-08 Puffs ity of mcg/actuati 00:00: every 6 [place] as on inhaler 00 (six) Medical hours as Branch needed for Shortness of Breath. doxylamine- Yes [id number] Doxylamine [facility] pyridoxine, 02-07 10 ity of [...] mg (4 tablets) per day). albuterol Yes [id number] 2{puff} Inhale 2 [facility] 90 7-08 Puffs ity of mcg/actuati 00:00: every 6 [place] as on inhaler 00 (six) Medical hours as Branch needed for Shortness of Breath. doxylamine- Yes [id number] Doxylamine [facility] pyridoxine, 02-07 10 ity of [...] mg (4 tablets) per day). albuterol Yes [id number] 2{puff} Inhale 2 [facility] 90 7-08 Puffs ity of mcg/actuati 00:00: every 6 [place] as on inhaler 00 (six) Medical hours as Branch needed for Shortness of Breath. doxylamine- Yes [id number] Doxylamine [facility] pyridoxine, 02-07 10 ity of [...] mg (4 tablets) per day). albuterol Yes [id number] 2{puff} Inhale 2 [facility] 90 7-08 Puffs ity of mcg/actuati 00:00: every 6 [place] as on inhaler 00 (six) Medical hours as Branch needed for Shortness of Breath. doxylamine- Yes [id number] Doxylamine [facility] pyridoxine, 02-07 10 [facility] of [...] mg (4 tablets) per day). albuterol Yes [id number] 2{puff} Inhale 2 [facility] 90 7-08 Puffs [facility]y of mcg/actuati 00:00: every 6 [place] as on inhaler 00 (six) Medical hours as Branch needed for Shortness of Breath. doxylamine- Yes [id number] Doxylamine [facility] pyridoxine, 02-07 10 [facility] of [...] mg (4 tablets) per day). albuterol Yes [id number] 2{puff} Inhale 2 [facility] 90 7-08 Puffs [facility] of mcg/actuati 00:00: every 6 [place] [facility] on inhaler 00 (six) Medical hours as Branch needed for Shortness of Breath. doxylamine- Yes [id number] Doxylamine [facility] pyridoxine, 02-07 10 ity of [...] mg (4 tablets) per day). albuterol Yes [id number] 2{puff} Inhale 2 [facility] 90 7-08 Puffs [facility]y of mcg/actuati 00:00: every 6 [place] [facility] on inhaler 00 (six) Medical hours as Branch needed for Shortness of Breath. doxylamine- Yes [id number] Doxylamine [facility] pyridoxine, 02-07 10 ity of [...] mg (4 tablets) per day). albuterol Yes [id number] 2{puff} Inhale 2 [facility] 90 7-08 Puffs [facility] of mcg/actuati 00:00: every 6 [place] [facility] on inhaler 00 (six) Medical hours as Branch needed for Shortness of Breath. doxylamine- Yes [id number] Doxylamine [facility] pyridoxine, 02-07 10 ity of [...] mg (4 tablets) per day). albuterol Yes [id number] 2{puff} Inhale 2 [facility] 90 7-08 Puffs [facility]y of mcg/actuati 00:00: every 6 [place] [facility] on inhaler 00 (six) Medical hours as Branch needed for Shortness of Breath. doxylamine- Yes [id number] Doxylamine [facility] pyridoxine, 02-07 10 ity of [...] mg (4 tablets) per day). albuterol Yes [id number] 2{puff} Inhale 2 [facility] 90 7-08 Puffs [facility]y of mcg/actuati 00:00: every 6 [place] [facility] on inhaler 00 (six) Medical hours as Branch needed for Shortness of Breath. doxylamine- Yes [id number] Doxylamine [facility] pyridoxine, 02-07 10 ity of [...] mg (4 tablets) per day). albuterol Yes [id number] 2{puff} Inhale 2 [facility] 90 7-08 Puffs [facility]y of mcg/actuati 00:00: every 6 [place] [facility] on inhaler 00 (six) Medical hours as Branch needed for Shortness of Breath. albuterol Yes [id number] 2{puff} Inhale 2 [facility] 90 7-08 Puffs [facility]y of mcg/actuati 00:00: every 6 [place] [facility] on inhaler 00 (six) Medical hours as Branch needed for Shortness of Breath. albuterol Yes [id number] 2{puff} Inhale 2 [facility] 90 7-08 Puffs [facility]y of mcg/actuati 00:00: every 6 [place] [facility] on inhaler 00 (six) Medical hours as Branch needed for Shortness of Breath. albuterol Yes [id number] 2{puff} Inhale 2 [facility] 90 7-08 Puffs [facility]y of mcg/actuati 00:00: every 6 [place] [facility] on inhaler 00 (six) Medical hours as Branch needed for Shortness of Breath. albuterol Yes [id number] 2{puff} Inhale 2 [facility] 90 7-08 Puffs [facility]y of mcg/actuati 00:00: every 6 [place] [facility] on inhaler 00 (six) Medical hours as [facility] needed for Shortness of Breath. albuterol Yes [id number] 2{puff} Inhale 2 [facility] 90 7-08 Puffs [facility]y of mcg/actuati 00:00: every 6 [place] [facility] on inhaler 00 (six) Medical hours as [facility] needed for Shortness of Breath. albuterol Yes [id number] 2{puff} Inhale 2 [facility] 90 7-08 Puffs ity of mcg/actuati 00:00: every 6 [place] [facility] on inhaler 00 (six) Medical hours as [facility] needed for Shortness of Breath. albuterol Yes [id number] 2{puff} Inhale 2 [facility] 90 7-08 Puffs [facility]y of mcg/actuati 00:00: every 6 [place] [facility] on inhaler 00 (six) Medical hours as [facility] needed for Shortness of Breath. albuterol Yes [id number] 2{puff} Inhale 2 [facility] 90 7-08 Puffs [facility]y of mcg/actuati 00:00: every 6 [place] [facility] on inhaler 00 (six) Medical hours as Branch needed for Shortness of Breath. albuterol Yes [id number] 2{puff} Inhale 2 [facility] 90 7-08 Puffs [facility]y of mcg/actuati 00:00: every 6 [place] [facility] on inhaler 00 (six) Medical hours as [facility] needed for Shortness of Breath. albuterol Yes [id number] 2{puff} Inhale 2 [facility] 90 7-08 Puffs ity of mcg/actuati 00:00: every 6 [place] [facility] on inhaler 00 (six) Medical hours as [facility] needed for Shortness of Breath. albuterol Yes [id number] 2{puff} Inhale 2 [facility] 90 7-08 Puffs [facility]y of mcg/actuati 00:00: every 6 [place] [facility] on inhaler 00 (six) Medical hours as Branch needed for Shortness of Breath. albuterol Yes [id number] 2{puff} Inhale 2 [facility] 90 7-08 Puffs [facility]y of mcg/actuati 00:00: every 6 [place] [facility] on inhaler 00 (six) Medical hours as [facility] needed for Shortness of Breath. albuterol Yes [id number] 2{puff} Inhale 2 [facility] 90 7-08 Puffs ity of mcg/actuati 00:00: every 6 [place] [facility] on inhaler 00 (six) Medical hours as Branch needed for Shortness of Breath. albuterol Yes [id number] 2{puff} Inhale 2 [facility] 90 7-08 Puffs ity of mcg/actuati 00:00: every 6 [place] [facility] on inhaler 00 (six) Medical hours as Branch needed for Shortness of Breath. albuterol Yes [id number] 2{puff} Inhale 2 [facility] 90 7-08 Puffs ity of mcg/actuati 00:00: every 6 [place] as on inhaler 00 (six) Medical hours as Branch needed for Shortness of Breath. albuterol Yes [id number] 2{puff} Inhale 2 [facility] 90 7-08 Puffs ity of mcg/actuati 00:00: every 6 [place] as on inhaler 00 (six) Medical hours as Branch needed for Shortness of Breath. albuterol Yes [id number] 2{puff} Inhale 2 [facility] 90 7-08 Puffs ity of mcg/actuati 00:00: every 6 [place] as on inhaler 00 (six) Medical hours as Branch needed for Shortness of Breath. albuterol Yes [id number] 2{puff} Inhale 2 [facility] 90 7-08 Puffs ity of mcg/actuati 00:00: every 6 [place] [facility] on inhaler 00 (six) Medical hours as Branch needed for Shortness of Breath. albuterol Yes [id number] 2{puff} Inhale 2 [facility] 90 7-08 Puffs ity of mcg/actuati 00:00: every 6 [place] as on inhaler 00 (six) Medical hours as Branch needed for Shortness of Breath. albuterol Yes [id number] 2{puff} Inhale 2 [facility] 90 7-08 Puffs ity of mcg/actuati 00:00: every 6 [place] as on inhaler 00 (six) Medical hours as Branch needed for Shortness of Breath. albuterol Yes [id number] 2{puff} Inhale 2 [facility] 90 7-08 Puffs ity of mcg/actuati 00:00: every 6 [place] as on inhaler 00 (six) Medical hours as Branch needed for Shortness of Breath. albuterol Yes [id number] 2{puff} Inhale 2 [facility] 90 7-08 Puffs ity of mcg/actuati 00:00: every 6 [facility] as on inhaler 00 (six) Medical hours as Branch needed for Shortness of Breath. albuterol Yes [id number] 2{puff} Inhale 2 [facility] 90 7-08 Puffs ity of mcg/actuati 00:00: every 6 [facility] as on inhaler 00 (six) Medical hours as Branch needed for Shortness of Breath. albuterol Yes [id number] 2{puff} Inhale 2 [facility] 90 7-08 Puffs ity of mcg/actuati 00:00: every 6 [facility] as on inhaler 00 (six) Medical hours as Branch needed for Shortness of Breath. albuterol Yes [id number] 2{puff} Inhale 2 [facility] 90 7-08 Puffs ity of mcg/actuati 00:00: every 6 [facility] as on inhaler 00 (six) Medical hours as Branch needed for Shortness of Breath. albuterol Yes [id number] 2{puff} Inhale 2 [facility] 90 7-08 Puffs ity of mcg/actuati 00:00: every 6 [facility] as on inhaler 00 (six) Medical hours as Branch needed for Shortness of Breath. albuterol Yes [id number] 2{puff} Inhale 2 [facility] 90 7-08 Puffs ity of mcg/actuati 00:00: every 6 [facility] as on inhaler 00 (six) Medical hours as Branch needed for Shortness of Breath. albuterol Yes [id number] 2{puff} Inhale 2 [facility] 90 7-08 Puffs ity of mcg/actuati 00:00: every 6 [facility] as on inhaler 00 (six) Medical hours as Branch needed for Shortness of Breath. albuterol Yes [id number] 2{puff} Inhale 2 [facility] 90 7-08 Puffs ity of mcg/actuati 00:00: every 6 [facility] as on inhaler 00 (six) Medical hours as Branch needed for Shortness of Breath. albuterol Yes [id number] 2{puff} Inhale 2 [facility] 90 7-08 Puffs ity of mcg/actuati 00:00: every 6 [facility] as on inhaler 00 (six) Medical hours as Branch needed for Shortness of Breath. albuterol Yes [id number] 2{puff} Inhale 2 [facility] 90 7-08 Puffs ity of mcg/actuati 00:00: every 6 [facility] as on inhaler 00 (six) Medical hours as Branch needed for Shortness of Breath. albuterol Yes [id number] 2{puff} Inhale 2 [facility] 90 7-08 Puffs ity of mcg/actuati 00:00: every 6 [facility] as on inhaler 00 (six) Medical hours as Branch needed for Shortness of Breath. albuterol Yes [id number] 2{puff} Inhale 2 [facility] 90 7-08 Puffs ity of mcg/actuati 00:00: every 6 [facility] as on inhaler 00 (six) Medical hours as Branch needed for Shortness of Breath. albuterol Yes [id number] 2{puff} Inhale 2 [facility] 90 7-08 Puffs ity of mcg/actuati 00:00: every 6 [facility] as on inhaler 00 (six) Medical hours as Branch needed for Shortness of Breath. albuterol Yes [id number] 2{puff} Inhale 2 [facility] 90 7-08 Puffs ity of mcg/actuati 00:00: every 6 [facility] as on inhaler 00 (six) Medical hours as Branch needed for Shortness of Breath. albuterol Yes [id number] 2{puff} Inhale 2 [facility] 90 7-08 Puffs ity of mcg/actuati 00:00: every 6 [facility] as on inhaler 00 (six) Medical hours as Branch needed for Shortness of Breath. albuterol Yes [id number] 2{puff} Inhale 2 [facility] 90 7-08 Puffs ity of mcg/actuati 00:00: every 6 [facility] as on inhaler 00 (six) Medical hours as Branch needed for Shortness of Breath. albuterol Yes [id number] 2{puff} Inhale 2 [facility] 90 7-08 Puffs ity of mcg/actuati 00:00: every 6 [facility] as on inhaler 00 (six) Medical hours as Branch needed for Shortness of Breath. albuterol Yes [id number] 2{puff} Inhale 2 [facility] 90 7-08 Puffs ity of mcg/actuati 00:00: every 6 [facility] as on inhaler 00 (six) Medical hours as Branch needed for Shortness of Breath. albuterol Yes [id number] 2{puff} Inhale 2 [facility] 90 7-08 Puffs ity of mcg/actuati 00:00: every 6 [facility] as on inhaler 00 (six) Medical hours as Branch needed for Shortness of Breath. albuterol Yes [id number] 2{puff} Inhale 2 [facility] 90 7-08 Puffs ity of mcg/actuati 00:00: every 6 [facility] as on inhaler 00 (six) Medical hours as Branch needed for Shortness of Breath. albuterol Yes [id number] 2{puff} Inhale 2 [facility] 90 7-08 Puffs ity of mcg/actuati 00:00: every 6 [facility] as on inhaler 00 (six) Medical hours as Branch needed for Shortness of Breath. albuterol Yes [id number] 2{puff} Inhale 2 [facility] 90 7-08 Puffs ity of mcg/actuati 00:00: every 6 [facility] as on inhaler 00 (six) Medical hours as Branch needed for Shortness of Breath. albuterol Yes [id number] 2{puff} Inhale 2 [facility] 90 7-08 Puffs ity of mcg/actuati 00:00: every 6 [facility] as on inhaler 00 (six) Medical hours as Branch needed for Shortness of Breath. albuterol Yes [id number] 2{puff} Inhale 2 [facility] 90 7-08 Puffs ity of mcg/actuati 00:00: every 6 [facility] as on inhaler 00 (six) Medical hours as Branch needed for Shortness of Breath. albuterol Yes [id number] 2{puff} Inhale 2 [facility] 90 7-08 Puffs ity of mcg/actuati 00:00: every 6 [facility] as on inhaler 00 (six) Medical hours as Branch needed for Shortness of Breath. albuterol Yes [id number] 2{puff} Inhale 2 [facility] 90 7-08 Puffs ity of mcg/actuati 00:00: every 6 [facility] as on inhaler 00 (six) Medical hours as Branch needed for Shortness of Breath. albuterol Yes [id number] 2{puff} Inhale 2 [facility] 90 7-08 Puffs ity of mcg/actuati 00:00: every 6 [facility] as on inhaler 00 (six) Medical hours as Branch needed for Shortness of Breath. albuterol Yes [id number] 2{puff} Inhale 2 [facility] 90 7-08 Puffs ity of mcg/actuati 00:00: every 6 [facility] as on inhaler 00 (six) Medical hours as Branch needed for Shortness of Breath. albuterol Yes [id number] 2{puff} Inhale 2 [facility] 90 7-08 Puffs ity of mcg/actuati 00:00: every 6 [facility] as on inhaler 00 (six) Medical hours as Branch needed for Shortness of Breath. albuterol Yes [id number] 2{puff} Inhale 2 [facility] 90 7-08 Puffs ity of mcg/actuati 00:00: every 6 [facility] as on inhaler 00 (six) Medical hours as Branch needed for Shortness of Breath. albuterol Yes [id number] 2{puff} Inhale 2 [facility] 90 7-08 Puffs ity of mcg/actuati 00:00: every 6 [facility] as on inhaler 00 (six) Medical hours as Branch needed for Shortness of Breath. albuterol Yes [id number] 2{puff} Inhale 2 [facility] 90 7-08 Puffs ity of mcg/actuati 00:00: every 6 [facility] as on inhaler 00 (six) Medical hours as Branch needed for Shortness of Breath. albuterol Yes [id number] 2{puff} Inhale 2 [facility] 90 7-08 Puffs ity of mcg/actuati 00:00: every 6 [facility] as on inhaler 00 (six) Medical hours as Branch needed for Shortness of Breath. albuterol Yes [id number] 2{puff} Inhale 2 [facility] 90 7-08 Puffs ity of mcg/actuati 00:00: every 6 [facility] as on inhaler 00 (six) Medical hours as Branch needed for Shortness of Breath. albuterol Yes [id number] 2{puff} Inhale 2 [facility] 90 7-08 Puffs ity of mcg/actuati 00:00: every 6 [facility] as on inhaler 00 (six) Medical hours as Branch needed for Shortness of Breath. albuterol Yes [id number] 2{puff} Inhale 2 [facility] 90 7-08 Puffs ity of mcg/actuati 00:00: every 6 [facility] as on inhaler 00 (six) Medical hours as Branch needed for Shortness of Breath. albuterol Yes [id number] 2{puff} Inhale 2 [facility] 90 7-08 Puffs ity of mcg/actuati 00:00: every 6 [facility] as on inhaler 00 (six) Medical hours as Branch needed for Shortness of Breath. albuterol Yes [id number] 2{puff} Inhale 2 [facility] 90 7-08 Puffs ity of mcg/actuati 00:00: every 6 [facility] as on inhaler 00 (six) Medical hours as Branch needed for Shortness of Breath. albuterol Yes [id number] 2{puff} Inhale 2 [facility] 90 7-08 Puffs ity of mcg/actuati 00:00: every 6 [facility] as on inhaler 00 (six) Medical hours as Branch needed for Shortness of Breath. albuterol Yes [id number] 2{puff} Inhale 2 [facility] 90 7-08 Puffs ity of mcg/actuati 00:00: every 6 [facility] as on inhaler 00 (six) Medical hours as Branch needed for Shortness of Breath. albuterol Yes [id number] 2{puff} Inhale 2 [facility] 90 7-08 Puffs ity of mcg/actuati 00:00: every 6 [facility] as on inhaler 00 (six) Medical hours as Branch needed for Shortness of Breath. albuterol Yes [id number] 2{puff} Inhale 2 [facility] 90 7-08 Puffs ity of mcg/actuati 00:00: every 6 [facility] as on inhaler 00 (six) Medical hours as Branch needed for Shortness of Breath. albuterol Yes [id number] 2{puff} Inhale 2 [facility] 90 7-08 Puffs ity of mcg/actuati 00:00: every 6 [facility] as on inhaler 00 (six) Medical hours as Branch needed for Shortness of Breath. albuterol Yes [id number] 2{puff} Inhale 2 [facility] 90 7-08 Puffs ity of mcg/actuati 00:00: every 6 [facility] as on inhaler 00 (six) Medical hours as Branch needed for Shortness of Breath. albuterol Yes [id number] 2{puff} Inhale 2 [facility] 90 7-08 Puffs ity of mcg/actuati 00:00: every 6 [facility] as on inhaler 00 (six) Medical hours as Branch needed for Shortness of Breath. albuterol Yes [id number] 2{puff} Inhale 2 [facility] 90 7-08 Puffs ity of mcg/actuati 00:00: every 6 [facility] as on inhaler 00 (six) Medical hours as Branch needed for Shortness of Breath. albuterol Yes [id number] 2{puff} Inhale 2 [facility] 90 7-08 Puffs ity of mcg/actuati 00:00: every 6 [facility] as on inhaler 00 (six) Medical hours as Branch needed for Shortness of Breath. albuterol Yes [id number] 2{puff} Inhale 2 [facility] 90 7-08 Puffs ity of mcg/actuati 00:00: every 6 [facility] as on inhaler 00 (six) Medical hours as Branch needed for Shortness of Breath. albuterol Yes [id number] 2{puff} Inhale 2 [facility] 90 7-08 Puffs ity of mcg/actuati 00:00: every 6 [facility] as on inhaler 00 (six) Medical hours as Branch needed for Shortness of Breath. albuterol Yes [id number] 2{puff} Inhale 2 [facility] 90 7-08 Puffs ity of mcg/actuati 00:00: every 6 [facility] as on inhaler 00 (six) Medical hours as Branch needed for Shortness of Breath. albuterol Yes [id number] 2{puff} Inhale 2 [facility] 90 7-08 Puffs ity of mcg/actuati 00:00: every 6 [facility] as on inhaler 00 (six) Medical hours as Branch needed for Shortness of Breath. albuterol Yes [id number] 2{puff} Inhale 2 [facility] 90 7-08 Puffs ity of mcg/actuati 00:00: every 6 [facility] as on inhaler 00 (six) Medical hours as Branch needed for Shortness of Breath. albuterol Yes [id number] 2{puff} Inhale 2 [facility] 90 7-08 Puffs ity of mcg/actuati 00:00: every 6 [facility] as on inhaler 00 (six) Medical hours as Branch needed for Shortness of Breath. albuterol Yes [id number] 2{puff} Inhale 2 [facility] 90 7-08 Puffs ity of mcg/actuati 00:00: every 6 [facility] as on inhaler 00 (six) Medical hours as Branch needed for Shortness of Breath. doxylamine- 2021- No [id number] Doxylamine [facility] pyridoxine, 02-07 10 ity of [...] (4 tablets) per day). doxylamine- 2021- No [id number] Doxylamine [facility] pyridoxine, 02-07 10 ity of [...] (4 tablets) per day). doxylamine- 2021- No [id number] Doxylamine [facility] pyridoxine, 02-07 10 ity of [...] (4 tablets) per day). doxylamine- 2021- No [id number] Doxylamine [facility] pyridoxine, 7 10-21 10 ity of vit B6, 00:00: 00:00 [...] mg (4 tablets) per day). aspirin 81 Yes [id number] 81mg Take 1 [facility] mg EC 7-07 tablet by ity of tablet 00:00: mouth [place] 00 daily. [facility] aspirin 81 Yes [id number] 81mg Take 1 [facility] mg EC 7-07 tablet by ity of tablet 00:00: mouth [place] 00 daily. [facility] aspirin 81 Yes [id number] 81mg Take 1 [facility] mg EC 7-07 tablet by ity of tablet 00:00: mouth [place] 00 daily. [facility] aspirin 81 0 Yes [id number] 81mg Take 1 [facility] mg EC 7-07 tablet by ity of tablet 00:00: mouth [place] 00 daily. [facility] aspirin 81 Yes [id number] 81mg Take 1 [facility] mg EC 7-07 tablet by ity of tablet 00:00: mouth [place] 00 daily. [facility] aspirin 81 0 Yes [id number] 81mg Take 1 [facility] mg EC 7-07 tablet by ity of tablet 00:00: mouth [place] 00 daily. [facility] aspirin 81 0 Yes [id number] 81mg Take 1 [facility] mg EC 7-07 tablet by ity of tablet 00:00: mouth [place] 00 daily. [facility] Branch aspirin 81 0 Yes [id number] 81mg Take 1 [facility] mg EC 7-07 tablet by ity of tablet 00:00: mouth [place] 00 daily. [facility] Branch aspirin 81 Yes [id number] 81mg Take 1 [facility] mg EC 7-07 tablet by ity of tablet 00:00: mouth [place] 00 daily. [facility] aspirin 81 2021-0 Yes [id number] 81mg Take 1 [facility] mg EC 7-07 tablet by ity of tablet 00:00: mouth [place] 00 daily. [facility] aspirin 81 2021-0 Yes [id number] 81mg Take 1 [facility] mg EC 7-07 tablet by ity of tablet 00:00: mouth [place] 00 daily. [facility] aspirin 81 2021-0 Yes [id number] 81mg Take 1 [facility] mg EC 7-07 tablet by ity of tablet 00:00: mouth [place] 00 daily. [facility] aspirin 81 2021-0 Yes [id number] 81mg Take 1 [facility] mg EC 7-07 tablet by ity of tablet 00:00: mouth [place] 00 daily. [facility] aspirin 81 2021-0 Yes [id number] 81mg Take 1 [facility] mg EC 7-07 tablet by ity of tablet 00:00: mouth [place] 00 daily. [facility] aspirin 81 2021-0 Yes [id number] 81mg Take 1 [facility] mg EC 7-07 tablet by ity of tablet 00:00: mouth [place] 00 daily. [facility] aspirin 81 2021-0 Yes [id number] 81mg Take 1 [facility] mg EC 7-07 tablet by ity of tablet 00:00: mouth [place] 00 daily. [facility] aspirin 81 2021-0 Yes [id number] 81mg Take 1 [facility] mg EC 7-07 tablet by ity of tablet 00:00: mouth [place] 00 daily. [facility] aspirin 81 2021-0 Yes [id number] 81mg Take 1 [facility] mg EC 7-07 tablet by ity of tablet 00:00: mouth [place] 00 daily. [facility] aspirin 81 2021-0 Yes [id number] 81mg Take 1 [facility] mg EC 7-07 tablet by ity of tablet 00:00: mouth [place] 00 daily. [facility] aspirin 81 2021-0 Yes [id number] 81mg Take 1 [facility] mg EC 7-07 tablet by ity of tablet 00:00: mouth [place] 00 daily. [facility] aspirin 81 2021-0 Yes [id number] 81mg Take 1 [facility] mg EC 7-07 tablet by ity of tablet 00:00: mouth [place] 00 daily. [facility] aspirin 81 2021-0 Yes [id number] 81mg Take 1 [facility] mg EC 7-07 tablet by ity of tablet 00:00: mouth [place] 00 daily. [facility] aspirin 81 2021-0 Yes [id number] 81mg Take 1 [facility] mg EC 7-07 tablet by ity of tablet 00:00: mouth [place] 00 daily. [facility] aspirin 81 2021-0 Yes [id number] 81mg Take 1 [facility] mg EC 7-07 tablet by ity of tablet 00:00: mouth [place] 00 daily. [facility] aspirin 81 2021-0 Yes [id number] 81mg Take 1 [facility] mg EC 7-07 tablet by ity of tablet 00:00: mouth [place] 00 daily. [facility] aspirin 81 2021-0 Yes [id number] 81mg Take 1 [facility] mg EC 7-07 tablet by ity of tablet 00:00: mouth [place] 00 daily. [facility] aspirin 81 2021-0 Yes [id number] 81mg Take 1 [facility] mg EC 7-07 tablet by ity of tablet 00:00: mouth [place] 00 daily. [facility] aspirin 81 2021-0 Yes [id number] 81mg Take 1 [facility] mg EC 7-07 tablet by ity of tablet 00:00: mouth [place] 00 daily. [facility] aspirin 81 2021-0 Yes [id number] 81mg Take 1 [facility] mg EC 7-07 tablet by ity of tablet 00:00: mouth [place] 00 daily. [facility] aspirin 81 2021-0 Yes [id number] 81mg Take 1 [facility] mg EC 7-07 tablet by ity of tablet 00:00: mouth [place] 00 daily. [facility] aspirin 81 2021-0 Yes [id number] 81mg Take 1 [facility] mg EC 7-07 tablet by ity of tablet 00:00: mouth [place] 00 daily. [facility] aspirin 81 2021-0 Yes [id number] 81mg Take 1 [facility] mg EC 7-07 tablet by ity of tablet 00:00: mouth [place] 00 daily. [facility] aspirin 81 2021-0 Yes [id number] 81mg Take 1 [facility] mg EC 7-07 tablet by ity of tablet 00:00: mouth [place] 00 daily. [facility] aspirin 81 2021-0 Yes [id number] 81mg Take 1 [facility] mg EC 7-07 tablet by ity of tablet 00:00: mouth [place] 00 daily. [facility] aspirin 81 2021-0 Yes [id number] 81mg Take 1 [facility] mg EC 7-07 tablet by ity of tablet 00:00: mouth [place] 00 daily. [facility] aspirin 81 2021-0 Yes [id number] 81mg Take 1 [facility] mg EC 7-07 tablet by ity of tablet 00:00: mouth [place] 00 daily. [facility] aspirin 81 2021-0 Yes [id number] 81mg Take 1 [facility] mg EC 7-07 tablet by ity of tablet 00:00: mouth [place] 00 daily. [facility] aspirin 81 2021-0 Yes [id number] 81mg Take 1 [facility] mg EC 7-07 tablet by ity of tablet 00:00: mouth [place] 00 daily. [facility] aspirin 81 2021-0 Yes [id number] 81mg Take 1 [facility] mg EC 7-07 tablet by ity of tablet 00:00: mouth [place] 00 daily. [facility] aspirin 81 2021-0 Yes [id number] 81mg Take 1 [facility] mg EC 7-07 tablet by ity of tablet 00:00: mouth [place] 00 daily. [facility] aspirin 81 2021-0 Yes [id number] 81mg Take 1 [facility] mg EC 7-07 tablet by ity of tablet 00:00: mouth [place] 00 daily. [facility] aspirin 81 2021-0 Yes [id number] 81mg Take 1 [facility] mg EC 7-07 tablet by ity of tablet 00:00: mouth [place] 00 daily. [facility] aspirin 81 2021-0 Yes [id number] 81mg Take 1 [facility] mg EC 7-07 tablet by ity of tablet 00:00: mouth [place] 00 daily. [facility] aspirin 81 2021-0 Yes [id number] 81mg Take 1 [facility] mg EC 7-07 tablet by ity of tablet 00:00: mouth [place] 00 daily. [facility] aspirin 81 2021-0 Yes [id number] 81mg Take 1 [facility] mg EC 7-07 tablet by ity of tablet 00:00: mouth [place] 00 daily. [facility] aspirin 81 2021-0 Yes [id number] 81mg Take 1 [facility] mg EC 7-07 tablet by ity of tablet 00:00: mouth [place] 00 daily. [facility] aspirin 81 2021-0 Yes [id number] 81mg Take 1 [facility] mg EC 7-07 tablet by ity of tablet 00:00: mouth [place] 00 daily. [facility] aspirin 81 2021-0 Yes [id number] 81mg Take 1 [facility] mg EC 7-07 tablet by ity of tablet 00:00: mouth [place] 00 daily. [facility] aspirin 81 2021-0 Yes [id number] 81mg Take 1 [facility] mg EC 7-07 tablet by ity of tablet 00:00: mouth [place] 00 daily. [facility] aspirin 81 2021-0 Yes [id number] 81mg Take 1 [facility] mg EC 7-07 tablet by ity of tablet 00:00: mouth [place] 00 daily. [facility] aspirin 81 2021-0 Yes [id number] 81mg Take 1 [facility] mg EC 7-07 tablet by ity of tablet 00:00: mouth [place] 00 daily. [facility] aspirin 81 2021-0 Yes [id number] 81mg Take 1 [facility] mg EC 7-07 tablet by ity of tablet 00:00: mouth [place] 00 daily. [facility] aspirin 81 2021-0 Yes [id number] 81mg Take 1 [facility] mg EC 7-07 tablet by ity of tablet 00:00: mouth [place] 00 daily. [facility] aspirin 81 2021-0 Yes [id number] 81mg Take 1 [facility] mg EC 7-07 tablet by ity of tablet 00:00: mouth [place] 00 daily. [facility] aspirin 81 0 Yes [id number] 81mg Take 1 [facility] mg EC 7-07 tablet by ity of tablet 00:00: mouth [place] 00 daily. [facility] aspirin 81 2021-0 Yes [id number] 81mg Take 1 [facility] mg EC 7-07 tablet by ity of tablet 00:00: mouth [place] 00 daily. [facility] aspirin 81 2021-0 Yes [id number] 81mg Take 1 [facility] mg EC 7-07 tablet by ity of tablet 00:00: mouth [place] 00 daily. [facility] Branch aspirin 81 2021-0 Yes [id number] 81mg Take 1 [facility] mg EC 7-07 tablet by ity of tablet 00:00: mouth [place] 00 daily. [facility] Branch aspirin 81 2021-0 Yes [id number] 81mg Take 1 [facility] mg EC 7-07 tablet by ity of tablet 00:00: mouth [place] 00 daily. [facility] Branch aspirin 81 2021-0 Yes [id number] 81mg Take 1 [facility] mg EC 7-07 tablet by ity of tablet 00:00: mouth [place] 00 daily. [facility] aspirin 81 2021-0 Yes [id number] 81mg Take 1 [facility]-07 tablet by [facility] tablet 00:00: mouth [place] 00 daily. [facility] aspirin 81 2021-0 Yes [id number] 81mg Take 1 [facility] mg [facility] 7-07 tablet by [facility] of tablet 00:00: mouth [place] 00 daily. [facility] aspirin 81 2021-0 Yes [id number] 81mg Take 1 [facility] mg EC 7-07 tablet by [facility] of tablet 00:00: mouth [place] 00 daily. [facility] aspirin 81 2021-0 Yes [id number] 81mg Take 1 [facility] mg EC 7-07 tablet by [facility] of tablet 00:00: mouth [place] 00 daily. [facility] aspirin 81 2021-0 Yes [id number] 81mg Take 1 [facility] mg EC 7-07 tablet by [facility] of tablet 00:00: mouth [place] 00 daily. [facility] aspirin 81 2021-0 Yes [id number] 81mg Take 1 [facility] mg EC 7-07 tablet by [facility] of tablet 00:00: mouth [place] 00 daily. [facility] aspirin 81 2021-0 Yes [id number] 81mg Take 1 [facility] mg EC 7-07 tablet by [facility] of tablet 00:00: mouth [place] 00 daily. [facility] aspirin 81 2021-0 Yes [id number] 81mg Take 1 [facility] mg EC 7-07 tablet by [facility] of tablet 00:00: mouth [place] 00 daily. [facility] aspirin 81 2021-0 Yes [id number] 81mg Take 1 [facility] mg EC 7-07 tablet by [facility] of tablet 00:00: mouth [place] 00 daily. [facility] aspirin 81 2021-0 Yes [id number] 81mg Take 1 [facility] mg EC 7-07 tablet by [facility] of tablet 00:00: mouth [place] 00 daily. [facility] aspirin 81 2021-0 Yes [id number] 81mg Take 1 [facility] mg EC 7-07 tablet by [facility] of tablet 00:00: mouth [place] 00 daily. [facility] aspirin 81 2021-0 Yes [id number] 81mg Take 1 [facility] mg EC 7-07 tablet by [facility] of tablet 00:00: mouth [place] 00 daily. [facility] aspirin 81 2021-0 Yes [id number] 81mg Take 1 [facility] mg EC 7-07 tablet by [facility] of tablet 00:00: mouth [place] 00 daily. [facility] aspirin 81 2021-0 Yes [id number] 81mg Take 1 [facility] mg EC 7-07 tablet by [facility] of tablet 00:00: mouth [place] 00 daily. [facility] aspirin 81 2021-0 Yes [id number] 81mg Take 1 [facility] mg EC 7-07 tablet by [facility] of tablet 00:00: mouth [place] 00 daily. [facility] aspirin 81 2021-0 Yes [id number] 81mg Take 1 [facility] mg EC 7-07 tablet by [facility] of tablet 00:00: mouth [place] 00 daily. [facility] aspirin 81 2021-0 Yes [id number] 81mg Take 1 [facility] mg EC 7-07 tablet by [facility] of tablet 00:00: mouth [place] 00 daily. [facility] aspirin 81 2021-0 Yes [id number] 81mg Take 1 [facility] mg EC 7-07 tablet by [facility] of tablet 00:00: mouth [place] 00 daily. [facility] aspirin 81 2021-0 Yes [id number] 81mg Take 1 [facility] mg EC 7-07 tablet by [facility] of tablet 00:00: mouth [place] 00 daily. [facility] aspirin 81 2021-0 Yes [id number] 81mg Take 1 [facility] mg EC 7-07 tablet by [facility] of tablet 00:00: mouth [place] 00 daily. [facility] aspirin 81 2021-0 Yes [id number] 81mg Take 1 [facility] mg EC 7-07 tablet by [facility] of tablet 00:00: mouth [place] 00 daily. [facility] aspirin 81 2021-0 Yes [id number] 81mg Take 1 [facility] mg EC 7-07 tablet by [facility] of tablet 00:00: mouth [place] 00 daily. [facility] aspirin 81 2021-0 Yes [id number] 81mg Take 1 [facility] mg EC 7-07 tablet by [facility] of tablet 00:00: mouth [place] 00 daily. [facility] aspirin 81 2021-0 Yes [id number] 81mg Take 1 [facility] mg EC 7-07 tablet by [facility] of tablet 00:00: mouth [place] 00 daily. [facility] aspirin 81 2021-0 Yes [id number] 81mg Take 1 [facility] mg EC 7-07 tablet by [facility] of tablet 00:00: mouth [place] 00 daily. [facility] aspirin 81 2021-0 Yes [id number] 81mg Take 1 [facility] mg EC 7-07 tablet by [facility] of tablet 00:00: mouth [place] 00 daily. [facility] aspirin 81 2021-0 Yes [id number] 81mg Take 1 [facility] mg EC 7-07 tablet by [facility] of tablet 00:00: mouth [place] 00 daily. [facility] aspirin 81 2021-0 Yes [id number] 81mg Take 1 [facility] mg EC 7-07 tablet by [facility] of tablet 00:00: mouth [place] 00 daily. [facility] aspirin 81 2021-0 Yes [id number] 81mg Take 1 [facility] EC 7-07 tablet by [facility] of tablet 00:00: mouth [place] 00 daily. [facility] aspirin 81 2021-0 Yes [id number] 81mg Take 1 [facility] mg EC 7-07 tablet by [facility] of tablet 00:00: mouth [place] 00 daily. [facility] aspirin 81 2021-0 Yes [id number] 81mg Take 1 [facility] mg EC 7-07 tablet by [facility] of tablet 00:00: mouth [place] 00 daily. [facility] aspirin 81 2021-0 Yes [id number] 81mg Take 1 [facility] mg EC 7-07 tablet by [facility] of tablet 00:00: mouth [place] 00 daily. [facility] aspirin 81 2021-0 Yes [id number] 81mg Take 1 [facility] mg EC 7-07 tablet by [facility] of tablet 00:00: mouth [place] 00 daily. [facility] aspirin 81 2021-0 Yes [id number] 81mg Take 1 [facility] mg EC 7-07 tablet by [facility] of tablet 00:00: mouth [place] 00 daily. [facility] aspirin 81 2021-0 Yes [id number] 81mg Take 1 [facility] mg EC 7-07 tablet by [facility] of tablet 00:00: mouth [place] 00 daily. [facility] aspirin 81 2021-0 Yes [id number] 81mg Take 1 [facility] mg EC 7-07 tablet by [facility] of tablet 00:00: mouth [place] 00 daily. [facility] aspirin 81 2021-0 Yes [id number] 81mg Take 1 [facility] mg EC 7-07 tablet by [facility] of tablet 00:00: mouth [place] 00 daily. [facility] aspirin 81 2021-0 Yes [id number] 81mg Take 1 [facility] mg EC 7-07 tablet by [facility] of tablet 00:00: mouth [place] 00 daily. [facility] aspirin 81 2021-0 Yes [id number] 81mg Take 1 [facility] mg EC 7-07 tablet by [facility] of tablet 00:00: mouth [place] 00 daily. [facility] aspirin 81 2021-0 Yes [id number] 81mg Take 1 [facility] mg EC 7-07 tablet by [facility] of tablet 00:00: mouth [place] 00 daily. [facility] aspirin 81 2021-0 Yes [id number] 81mg Take 1 [facility] mg EC 7-07 tablet by [facility] of tablet 00:00: mouth [place] 00 daily. [facility] aspirin 81 0 Yes [id number] 81mg Take 1 [facility] mg EC 7-07 tablet by [facility] of tablet 00:00: mouth [place] 00 daily. [facility] aspirin 81 0 Yes [id number] 81mg Take 1 [facility] mg EC 7-07 tablet by [facility] of tablet 00:00: mouth [place] 00 daily. [facility] aspirin 81 0 2022- No [id number] 81mg Take 1 [facility] mg EC 7-07 02-10 tablet by [facility] of tablet 00:00: 00:00 mouth [place] 00 :00 daily. [facility] aspirin 81 2021-0 2022- No [id number] 81mg Take 1 [facility] mg EC 7-07 02-10 tablet by [facility] of tablet 00:00: 00:00 mouth [place] 00 :00 daily. [facility] acetaminoph 2021- No Take by [facility] (TYLENOL 6-30 06-30 mouth. ity o f ORAL) 08:26: 00:00 [place] 40 :00 [facility] acetaminoph 2021- No Take by [facility] (TYLENOL 6-30 06-30 mouth. ity o f ORAL) 08:26: 00:00 [place] 40 :00 [facility] Prenat Vit Yes [id number] 1{packe Take 1 [facility] Comb.10-Iro 6-27 t} Packet by ity of n-FA-DHA 00:00: mouth [place] (VITAFOL-OB 00 daily. Medica l +DHA) Branch 65-1-250 mg combo pack Prenat Vit Yes [id number] 1{packe Take 1 [facility] Comb.10-Iro 6-27 t} Packet by ity of n-FA-DHA 00:00: mouth [place] (VITAFOL-OB 00 daily. Medica l +DHA) Branch 65-1-250 mg combo pack Prenat Vit Yes [id number] 1{packe Take 1 [facility] Comb.10-Iro 6-27 t} Packet by ity of n-FA-DHA 00:00: mouth [place] (VITAFOL-OB 00 daily. Medica l +DHA) Branch 65-1-250 mg combo pack Prenat Vit 2022-0 Yes [id number] 1{packe Take 1 [facility] Comb.10-Iro 6-27 t} Packet by ity of n-FA-DHA 00:00: mouth [place] (VITAFOL-OB 00 daily. Medica l +DHA) Branch 65-1-250 mg combo pack Prenat Vit 2022-0 Yes [id number] 1{packe Take 1 [facility] Comb.10-Iro 6-27 t} Packet by ity of n-FA-DHA 00:00: mouth [place] (VITAFOL-OB 00 daily. Medica l +DHA) Branch 65-1-250 mg combo pack Prenat Vit 2022-0 Yes [id number] 1{packe Take 1 [facility] Comb.10-Iro 6-27 t} Packet by ity of n-FA-DHA 00:00: mouth [place] (VITAFOL-OB 00 daily. Medica l +DHA) Branch 65-1-250 mg combo pack Prenat Vit 2022-0 Yes [id number] 1{packe Take 1 [facility] Comb.10-Iro 6-27 t} Packet by ity of n-FA-DHA 00:00: mouth [place] (VITAFOL-OB 00 daily. Medica l +DHA) Branch 65-1-250 mg combo pack Prenat Vit 2022-0 Yes [id number] 1{packe Take 1 [facility] Comb.10-Iro 6-27 t} Packet by ity of n-FA-DHA 00:00: mouth [place] (VITAFOL-OB 00 daily. Medica l +DHA) Branch 65-1-250 mg combo pack Prenat Vit 2022-0 Yes [id number] 1{packe Take 1 [facility] Comb.10-Iro 6-27 t} Packet by ity of n-FA-DHA 00:00: mouth [place] (VITAFOL-OB 00 daily. Medica l +DHA) Branch 65-1-250 mg combo pack Prenat Vit 2022-0 Yes [id number] 1{packe Take 1 [facility] Comb.10-Iro 6-27 t} Packet by ity of n-FA-DHA 00:00: mouth [place] (VITAFOL-OB 00 daily. Medica l +DHA) Branch 65-1-250 mg combo pack Prenat Vit 2022-0 Yes [id number] 1{packe Take 1 [facility] Comb.10-Iro 6-27 t} Packet by ity of n-FA-DHA 00:00: mouth [place] (VITAFOL-OB 00 daily. Medica l +DHA) Branch 65-1-250 mg combo pack Prenat Vit 2022-0 Yes [id number] 1{packe Take 1 [facility] Comb.10-Iro 6-27 t} Packet by ity of n-FA-DHA 00:00: mouth [place] (VITAFOL-OB 00 daily. Medica l +DHA) Branch 65-1-250 mg combo pack Prenat Vit 2022-0 Yes [id number] 1{packe Take 1 [facility] Comb.10-Iro 6-27 t} Packet by ity of n-FA-DHA 00:00: mouth [place] (VITAFOL-OB 00 daily. Medica l +DHA) Branch 65-1-250 mg combo pack Prenat Vit 2022-0 Yes [id number] 1{packe Take 1 [facility] Comb.10-Iro 6-27 t} Packet by ity of n-FA-DHA 00:00: mouth [place] (VITAFOL-OB 00 daily. Med[facility] l +DHA) Branch 65-1-250 mg combo pack Prenat Vit 2022-0 Yes [id number] 1{packe Take 1 [facility] Comb.10-Iro 6-27 t} Packet by ity of n-FA-DHA 00:00: mouth [place] (VITAFOL-OB 00 daily. Medica l +DHA) Branch 65-1-250 mg combo pack Prenat Vit 2022-0 Yes [id number] 1{packe Take 1 [facility] Comb.10-Iro 6-27 t} Packet by ity of n-FA-DHA 00:00: mouth [place] (VITAFOL-OB 00 daily. Medica l +DHA) Branch 65-1-250 mg combo pack Prenat Vit 2022-0 Yes [id number] 1{packe Take 1 [facility] Comb.10-Iro 6-27 t} Packet by ity of n-FA-DHA 00:00: mouth [place] (VITAFOL-OB 00 daily. Medica l +DHA) Branch 65-1-250 mg combo pack Prenat Vit 2022-0 Yes [id number] 1{packe Take 1 [facility] Comb.10-Iro 6-27 t} Packet by ity of n-FA-DHA 00:00: mouth [place] (VITAFOL-OB 00 daily. Med[facility] l +DHA) Branch 65-1-250 mg combo pack Prenat Vit 2022-0 Yes [id number] 1{packe Take 1 [facility] Comb.10-Iro 6-27 t} Packet by ity of n-FA-DHA 00:00: mouth [place] (VITAFOL-OB 00 daily. Med[facility] l +DHA) Branch 65-1-250 mg combo pack Prenat Vit 2022-0 Yes [id number] 1{packe Take 1 [facility] Comb.10-Iro 6-27 t} Packet by ity of n-FA-DHA 00:00: mouth [place] (VITAFOL-OB 00 daily. Medica l +DHA) Branch 65-1-250 mg combo pack Prenat Vit 2022-0 Yes [id number] 1{packe Take 1 [facility] Comb.10-Iro 6-27 t} Packet by ity of n-FA-DHA 00:00: mouth [place] (VITAFOL-OB 00 daily. Medica l +DHA) Branch 65-1-250 mg combo pack Prenat Vit 2022-0 Yes [id number] 1{packe Take 1 [facility] Comb.10-Iro 6-27 t} Packet by ity of n-FA-DHA 00:00: mouth [place] (VITAFOL-OB 00 daily. Medica l +DHA) Branch 65-1-250 mg combo pack Prenat Vit 2022-0 Yes [id number] 1{packe Take 1 [facility] Comb.10-Iro 6-27 t} Packet by ity of n-FA-DHA 00:00: mouth [place] (VITAFOL-OB 00 daily. Medica l +DHA) Branch 65-1-250 mg combo pack Prenat Vit 2022-0 Yes [id number] 1{packe Take 1 [facility] Comb.10-Iro 6-27 t} Packet by ity of n-FA-DHA 00:00: mouth [place] (VITAFOL-OB 00 daily. Medica l +DHA) Branch 65-1-250 mg combo pack Prenat Vit 2022-0 Yes [id number] 1{packe Take 1 [facility] Comb.10-Iro 6-27 t} Packet by ity of n-FA-DHA 00:00: mouth [place] (VITAFOL-OB 00 daily. Medica l +DHA) Branch 65-1-250 mg combo pack Prenat Vit 2022-0 Yes [id number] 1{packe Take 1 [facility] Comb.10-Iro 6-27 t} Packet by ity of n-FA-DHA 00:00: mouth [place] (VITAFOL-OB 00 daily. Medica l +DHA) Branch 65-1-250 mg combo pack Prenat Vit 2022-0 Yes [id number] 1{packe Take 1 [facility] Comb.10-Iro 6-27 t} Packet by ity of n-FA-DHA 00:00: mouth [place] (VITAFOL-OB 00 daily. Medica l +DHA) Branch 65-1-250 mg combo pack Prenat Vit 2022-0 Yes [id number] 1{packe Take 1 [facility] Comb.10-Iro 6-27 t} Packet by ity of n-FA-DHA 00:00: mouth [place] (VITAFOL-OB 00 daily. Medica l +DHA) Branch 65-1-250 mg combo pack Prenat Vit 2022-0 Yes [id number] 1{packe Take 1 [facility] Comb.10-Iro 6-27 t} Packet by ity of n-FA-DHA 00:00: mouth [place] (VITAFOL-OB 00 daily. Medica l +DHA) Branch 65-1-250 mg combo pack Prenat Vit 2022-0 Yes [id number] 1{packe Take 1 [facility] Comb.10-Iro 6-27 t} Packet by ity of n-FA-DHA 00:00: mouth [place] (VITAFOL-OB 00 daily. Medica l +DHA) Branch 65-1-250 mg combo pack Prenat Vit 2022-0 Yes [id number] 1{packe Take 1 [facility] Comb.10-Iro 6-27 t} Packet by ity of n-FA-DHA 00:00: mouth [place] (VITAFOL-OB 00 daily. Medica l +DHA) Branch 65-1-250 mg combo pack Prenat Vit 2022-0 Yes [id number] 1{packe Take 1 [facility] Comb.10-Iro 6-27 t} Packet by ity of n-FA-DHA 00:00: mouth [place] (VITAFOL-OB 00 daily. Medica l +DHA) Branch 65-1-250 mg combo pack Prenat Vit 2022-0 Yes [id number] 1{packe Take 1 [facility] Comb.10-Iro 6-27 t} Packet by ity of n-FA-DHA 00:00: mouth [place] (VITAFOL-OB 00 daily. Medica l +DHA) Branch 65-1-250 mg combo pack Prenat Vit 2022-0 Yes [id number] 1{packe Take 1 [facility] Comb.10-Iro 6-27 t} Packet by ity of n-FA-DHA 00:00: mouth [place] (VITAFOL-OB 00 daily. Medica l +DHA) Branch 65-1-250 mg combo pack Prenat Vit 2022-0 Yes [id number] 1{packe Take 1 [facility] Comb.10-Iro 6-27 t} Packet by ity of n-FA-DHA 00:00: mouth [place] (VITAFOL-OB 00 daily. Medica l +DHA) Branch 65-1-250 mg combo pack Prenat Vit 2022-0 Yes [id number] 1{packe Take 1 [facility] Comb.10-Iro 6-27 t} Packet by ity of n-FA-DHA 00:00: mouth [place] (VITAFOL-OB 00 daily. Medica l +DHA) Branch 65-1-250 mg combo pack Prenat Vit 2022-0 Yes [id number] 1{packe Take 1 [facility] Comb.10-Iro 6-27 t} Packet by ity of n-FA-DHA 00:00: mouth [place] (VITAFOL-OB 00 daily. Medica l +DHA) Branch 65-1-250 mg combo pack Prenat Vit 2022-0 Yes [id number] 1{packe Take 1 [facility] Comb.10-Iro 6-27 t} Packet by ity of n-FA-DHA 00:00: mouth [place] (VITAFOL-OB 00 daily. Medica l +DHA) Branch 65-1-250 mg combo pack Prenat Vit 2022-0 Yes [id number] 1{packe Take 1 [facility] Comb.10-Iro 6-27 t} Packet by ity of n-FA-DHA 00:00: mouth [place] (VITAFOL-OB 00 daily. Medica l +DHA) Branch 65-1-250 mg combo pack Prenat Vit 2022-0 Yes [id number] 1{packe Take 1 [facility] Comb.10-Iro 6-27 t} Packet by ity of n-FA-DHA 00:00: mouth [place] (VITAFOL-OB 00 daily. Medica l +DHA) Branch 65-1-250 mg combo pack Prenat Vit 2022-0 Yes [id number] 1{packe Take 1 [facility] Comb.10-Iro 6-27 t} Packet by ity of n-FA-DHA 00:00: mouth [place] (VITAFOL-OB 00 daily. Medica l +DHA) Branch 65-1-250 mg combo pack Prenat Vit 2022-0 Yes [id number] 1{packe Take 1 [facility] Comb.10-Iro 6-27 t} Packet by ity of n-FA-DHA 00:00: mouth [place] (VITAFOL-OB 00 daily. Medica l +DHA) Branch 65-1-250 mg combo pack Prenat Vit 2022-0 Yes [id number] 1{packe Take 1 [facility] Comb.10-Iro 6-27 t} Packet by ity of n-FA-DHA 00:00: mouth [place] (VITAFOL-OB 00 daily. Medica l +DHA) Branch 65-1-250 mg combo pack Prenat Vit 2022-0 Yes [id number] 1{packe Take 1 [facility] Comb.10-Iro 6-27 t} Packet by ity of n-FA-DHA 00:00: mouth [place] (VITAFOL-OB 00 daily. Medica l +DHA) Branch 65-1-250 mg combo pack Prenat Vit 2022-0 Yes [id number] 1{packe Take 1 [facility] Comb.10-Iro 6-27 t} Packet by ity of n-FA-DHA 00:00: mouth [place] (VITAFOL-OB 00 daily. Medica l +DHA) Branch 65-1-250 mg combo pack Prenat Vit 2022-0 Yes [id number] 1{packe Take 1 [facility] Comb.10-Iro 6-27 t} Packet by ity of n-FA-DHA 00:00: mouth [place] (VITAFOL-OB 00 daily. Medica l +DHA) Branch 65-1-250 mg combo pack Prenat Vit 2022-0 Yes [id number] 1{packe Take 1 [facility] Comb.10-Iro 6-27 t} Packet by ity of n-FA-DHA 00:00: mouth [place] (VITAFOL-OB 00 daily. Medica l +DHA) Branch 65-1-250 mg combo pack Prenat Vit 2022-0 Yes [id number] 1{packe Take 1 [facility] Comb.10-Iro 6-27 t} Packet by ity of n-FA-DHA 00:00: mouth [place] (VITAFOL-OB 00 daily. Medica l +DHA) Branch 65-1-250 mg combo pack Prenat Vit 2022-0 Yes [id number] 1{packe Take 1 [facility] Comb.10-Iro 6-27 t} Packet by ity of n-FA-DHA 00:00: mouth [place] (VITAFOL-OB 00 daily. Medica l +DHA) Branch 65-1-250 mg combo pack Prenat Vit 2022-0 Yes [id number] 1{packe Take 1 [facility] Comb.10-Iro 6-27 t} Packet by ity of n-FA-DHA 00:00: mouth [place] (VITAFOL-OB 00 daily. Medica l +DHA) Branch 65-1-250 mg combo pack Prenat Vit 2022-0 Yes [id number] 1{packe Take 1 [facility] Comb.10-Iro 6-27 t} Packet by ity of n-FA-DHA 00:00: mouth [place] (VITAFOL-OB 00 daily. Medica l +DHA) Branch 65-1-250 mg combo pack Prenat Vit 2022-0 Yes [id number] 1{packe Take 1 [facility] Comb.10-Iro 6-27 t} Packet by ity of n-FA-DHA 00:00: mouth [place] (VITAFOL-OB 00 daily. Medica l +DHA) Branch 65-1-250 mg combo pack Prenat Vit 2022-0 Yes [id number] 1{packe Take 1 [facility] Comb.10-Iro 6-27 t} Packet by ity of n-FA-DHA 00:00: mouth [place] (VITAFOL-OB 00 daily. Medica l +DHA) Branch 65-1-250 mg combo pack Prenat Vit 2022-0 Yes [id number] 1{packe Take 1 [facility] Comb.10-Iro 6-27 t} Packet by ity of n-FA-DHA 00:00: mouth [place] (VITAFOL-OB 00 daily. Medica l +DHA) Branch 65-1-250 mg combo pack Prenat Vit 2022-0 Yes [id number] 1{packe Take 1 [facility] Comb.10-Iro 6-27 t} Packet by ity of n-FA-DHA 00:00: mouth [place] (VITAFOL-OB 00 daily. Medica l +DHA) Branch 65-1-250 mg combo pack Prenat Vit 2022-0 Yes [id number] 1{packe Take 1 [facility] Comb.10-Iro 6-27 t} Packet by ity of n-FA-DHA 00:00: mouth [place] (VITAFOL-OB 00 daily. Medica l +DHA) Branch 65-1-250 mg combo pack Prenat Vit 2022-0 Yes [id number] 1{packe Take 1 [facility] Comb.10-Iro 6-27 t} Packet by ity of n-FA-DHA 00:00: mouth [place] (VITAFOL-OB 00 daily. Medica l +DHA) Branch 65-1-250 mg combo pack Prenat Vit 2022-0 Yes [id number] 1{packe Take 1 [facility] Comb.10-Iro 6-27 t} Packet by ity of n-FA-DHA 00:00: mouth [place] (VITAFOL-OB 00 daily. Medica l +DHA) Branch 65-1-250 mg combo pack Prenat Vit 2022-0 Yes [id number] 1{packe Take 1 [facility] Comb.10-Iro 6-27 t} Packet by ity of n-FA-DHA 00:00: mouth [place] (VITAFOL-OB 00 daily. Medica l +DHA) Branch 65-1-250 mg combo pack Prenat Vit 2022-0 Yes [id number] 1{packe Take 1 [facility] Comb.10-Iro 6-27 t} Packet by ity of n-FA-DHA 00:00: mouth [place] (VITAFOL-OB 00 daily. Medica l +DHA) Branch 65-1-250 mg combo pack Prenat Vit 2022-0 Yes [id number] 1{packe Take 1 [facility] Comb.10-Iro 6-27 t} Packet by ity of n-FA-DHA 00:00: mouth [place] (VITAFOL-OB 00 daily. Medica l +DHA) Branch 65-1-250 mg combo pack Prenat Vit 2022-0 Yes [id number] 1{packe Take 1 [facility] Comb.10-Iro 6-27 t} Packet by ity of n-FA-DHA 00:00: mouth [place] (VITAFOL-OB 00 daily. Medica l +DHA) Branch 65-1-250 mg combo pack Prenat Vit 2022-0 Yes [id number] 1{packe Take 1 [facility] Comb.10-Iro 6-27 t} Packet by ity of n-FA-DHA 00:00: mouth [place] (VITAFOL-OB 00 daily. Medica l +DHA) Branch 65-1-250 mg combo pack Prenat Vit 2022-0 Yes [id number] 1{packe Take 1 [facility] Comb.10-Iro 6-27 t} Packet by ity of n-FA-DHA 00:00: mouth [place] (VITAFOL-OB 00 daily. Medica l +DHA) Branch 65-1-250 mg combo pack Prenat Vit 2022-0 Yes [id number] 1{packe Take 1 [facility] Comb.10-Iro 6-27 t} Packet by ity of n-FA-DHA 00:00: mouth [place] (VITAFOL-OB 00 daily. Medica l +DHA) Branch 65-1-250 mg combo pack Prenat Vit 2022-0 Yes [id number] 1{packe Take 1 [facility] Comb.10-Iro 6-27 t} Packet by ity of n-FA-DHA 00:00: mouth [place] (VITAFOL-OB 00 daily. Medica l +DHA) Branch 65-1-250 mg combo pack Prenat Vit 2022-0 Yes [id number] 1{packe Take 1 [facility] Comb.10-Iro 6-27 t} Packet by ity of n-FA-DHA 00:00: mouth [place] (VITAFOL-OB 00 daily. Medica l +DHA) Branch 65-1-250 mg combo pack Prenat Vit 2022-0 Yes [id number] 1{packe Take 1 [facility] Comb.10-Iro 6-27 t} Packet by ity of n-FA-DHA 00:00: mouth [place] (VITAFOL-OB 00 daily. Medica l +DHA) Branch 65-1-250 mg combo pack Prenat Vit 2022-0 Yes [id number] 1{packe Take 1 [facility] Comb.10-Iro 6-27 t} Packet by ity of n-FA-DHA 00:00: mouth [place] (VITAFOL-OB 00 daily. Medica l +DHA) Branch 65-1-250 mg combo pack Prenat Vit 2022-0 Yes [id number] 1{packe Take 1 [facility] Comb.10-Iro 6-27 t} Packet by ity of n-FA-DHA 00:00: mouth [place] (VITAFOL-OB 00 daily. Medica l +DHA) Branch 65-1-250 mg combo pack Prenat Vit 2022-0 Yes [id number] 1{packe Take 1 [facility] Comb.10-Iro 6-27 t} Packet by ity of n-FA-DHA 00:00: mouth [place] (VITAFOL-OB 00 daily. Medica l +DHA) Branch 65-1-250 mg combo pack Prenat Vit 2022-0 Yes [id number] 1{packe Take 1 [facility] Comb.10-Iro 6-27 t} Packet by ity of n-FA-DHA 00:00: mouth [place] (VITAFOL-OB 00 daily. Medica l +DHA) Branch 65-1-250 mg combo pack Prenat Vit 2022-0 Yes [id number] 1{packe Take 1 [facility] Comb.10-Iro 6-27 t} Packet by ity of n-FA-DHA 00:00: mouth [place] (VITAFOL-OB 00 daily. Medica l +DHA) Branch 65-1-250 mg combo pack Prenat Vit 2022-0 Yes [id number] 1{packe Take 1 [facility] Comb.10-Iro 6-27 t} Packet by ity of n-FA-DHA 00:00: mouth [place] (VITAFOL-OB 00 daily. Medica l +DHA) Branch 65-1-250 mg combo pack Prenat Vit 2022-0 Yes [id number] 1{packe Take 1 [facility] Comb.10-Iro 6-27 t} Packet by ity of n-FA-DHA 00:00: mouth [place] (VITAFOL-OB 00 daily. Medica l +DHA) Branch 65-1-250 mg combo pack Prenat Vit 2022-0 Yes [id number] 1{packe Take 1 [facility] Comb.10-Iro 6-27 t} Packet by ity of n-FA-DHA 00:00: mouth [place] (VITAFOL-OB 00 daily. Medica l +DHA) Branch 65-1-250 mg combo pack Prenat Vit 2022-0 Yes [id number] 1{packe Take 1 [facility] Comb.10-Iro 6-27 t} Packet by ity of n-FA-DHA 00:00: mouth [place] (VITAFOL-OB 00 daily. Medica l +DHA) Branch 65-1-250 mg combo pack Prenat Vit 2022-0 Yes [id number] 1{packe Take 1 [facility] Comb.10-Iro 6-27 t} Packet by ity of n-FA-DHA 00:00: mouth [place] (VITAFOL-OB 00 daily. Medica l +DHA) Branch 65-1-250 mg combo pack Prenat Vit 2022-0 Yes [id number] 1{packe Take 1 [facility] Comb.10-Iro 6-27 t} Packet by ity of n-FA-DHA 00:00: mouth [place] (VITAFOL-OB 00 daily. Medica l +DHA) Branch 65-1-250 mg combo pack Prenat Vit 2022-0 Yes [id number] 1{packe Take 1 [facility] Comb.10-Iro 6-27 t} Packet by ity of n-FA-DHA 00:00: mouth [place] (VITAFOL-OB 00 daily. Medica l +DHA) Branch 65-1-250 mg combo pack Prenat Vit 2022-0 Yes [id number] 1{packe Take 1 [facility] Comb.10-Iro 6-27 t} Packet by ity of n-FA-DHA 00:00: mouth [place] (VITAFOL-OB 00 daily. Medica l +DHA) Branch 65-1-250 mg combo pack Prenat Vit 2022-0 Yes [id number] 1{packe Take 1 [facility] Comb.10-Iro 6-27 t} Packet by ity of n-FA-DHA 00:00: mouth [place] (VITAFOL-OB 00 daily. Medica l +DHA) Branch 65-1-250 mg combo pack Prenat Vit 2022-0 Yes [id number] 1{packe Take 1 [facility] Comb.10-Iro 6-27 t} Packet by ity of n-FA-DHA 00:00: mouth [place] (VITAFOL-OB 00 daily. Medica l +DHA) Branch 65-1-250 mg combo pack Prenat Vit 2022-0 Yes [id number] 1{packe Take 1 [facility] Comb.10-Iro 6-27 t} Packet by ity of n-FA-DHA 00:00: mouth [place] (VITAFOL-OB 00 daily. Medica l +DHA) Branch 65-1-250 mg combo pack Prenat Vit 2022-0 Yes [id number] 1{packe Take 1 [facility] Comb.10-Iro 6-27 t} Packet by ity of n-FA-DHA 00:00: mouth [place] (VITAFOL-OB 00 daily. Medica l +DHA) Branch 65-1-250 mg combo pack Prenat Vit 2022-0 Yes [id number] 1{packe Take 1 [facility] Comb.10-Iro 6-27 t} Packet by ity of n-FA-DHA 00:00: mouth [place] (VITAFOL-OB 00 daily. Medica l +DHA) Branch 65-1-250 mg combo pack Prenat Vit 2022-0 Yes [id number] 1{packe Take 1 [facility] Comb.10-Iro 6-27 t} Packet by ity of n-FA-DHA 00:00: mouth [place] (VITAFOL-OB 00 daily. Medica l +DHA) Branch 65-1-250 mg combo pack Prenat Vit 2022-0 Yes [id number] 1{packe Take 1 [facility] Comb.10-Iro 6-27 t} Packet by ity of n-FA-DHA 00:00: mouth [place] (VITAFOL-OB 00 daily. Medica l +DHA) Branch 65-1-250 mg combo pack Prenat Vit 2022-0 Yes [id number] 1{packe Take 1 [facility] Comb.10-Iro 6-27 t} Packet by ity of n-FA-DHA 00:00: mouth [place] (VITAFOL-OB 00 daily. Medica l +DHA) Branch 65-1-250 mg combo pack Prenat Vit 2022-0 Yes [id number] 1{packe Take 1 [facility] Comb.10-Iro 6-27 t} Packet by ity of n-FA-DHA 00:00: mouth [place] (VITAFOL-OB 00 daily. Medica l +DHA) Branch 65-1-250 mg combo pack Prenat Vit 2022-0 Yes [id number] 1{packe Take 1 [facility] Comb.10-Iro 6-27 t} Packet by ity of n-FA-DHA 00:00: mouth [place] (VITAFOL-OB 00 daily. Medica l +DHA) Branch 65-1-250 mg combo pack Prenat Vit 2022-0 Yes [id number] 1{packe Take 1 [facility] Comb.10-Iro 6-27 t} Packet by ity of n-FA-DHA 00:00: mouth [place] (VITAFOL-OB 00 daily. Medica l +DHA) Branch 65-1-250 mg combo pack Prenat Vit 2022-0 Yes [id number] 1{packe Take 1 [facility] Comb.10-Iro 6-27 t} Packet by ity of n-FA-DHA 00:00: mouth [place] (VITAFOL-OB 00 daily. Medica l +DHA) Branch 65-1-250 mg combo pack Prenat Vit 2022-0 Yes [id number] 1{packe Take 1 [facility] Comb.10-Iro 6-27 t} Packet by ity of n-FA-DHA 00:00: mouth [place] (VITAFOL-OB 00 daily. Medica l +DHA) Branch 65-1-250 mg combo pack Prenat Vit 2022-0 Yes [id number] 1{packe Take 1 [facility] Comb.10-Iro 6-27 t} Packet by ity of n-FA-DHA 00:00: mouth [place] (VITAFOL-OB 00 daily. Medica l +DHA) Branch 65-1-250 mg combo pack Prenat Vit 2022-0 Yes [id number] 1{packe Take 1 [facility] Comb.10-Iro 6-27 t} Packet by ity of n-FA-DHA 00:00: mouth [place] (VITAFOL-OB 00 daily. Medica l +DHA) Branch 65-1-250 mg combo pack Prenat Vit 2022-0 Yes [id number] 1{packe Take 1 Univers Comb.10-Iro 6-27 t} Packet by ity of n-FA-DHA 00:00: mouth [place] (VITAFOL-OB 00 daily. Medica l +DHA) Branch 65-1-250 mg combo pack Prenat Vit 2022-0 Yes [id number] 1{packe Take 1 Univers Comb.10-Iro 6-27 t} Packet by ity of n-FA-DHA 00:00: mouth [place] (VITAFOL-OB 00 daily. Medica l +DHA) Branch 65-1-250 mg combo pack Prenat Vit 2022-0 Yes [id number] 1{packe Take 1 Univers Comb.10-Iro 6-27 t} Packet by ity of n-FA-DHA 00:00: mouth [place] (VITAFOL-OB 00 daily. Medica l +DHA) Branch 65-1-250 mg combo pack Prenat Vit 2022-0 Yes [id number] 1{packe Take 1 Univers Comb.10-Iro 6-27 t} Packet by ity of n-FA-DHA 00:00: mouth [place] (VITAFOL-OB 00 daily. Medica l +DHA) Branch 65-1-250 mg combo pack Prenat Vit 2022-0 Yes [id number] 1{packe Take 1 Univers Comb.10-Iro 6-27 t} Packet by ity of n-FA-DHA 00:00: mouth [place] (VITAFOL-OB 00 daily. Medica l +DHA) Branch 65-1-250 mg combo pack Prenat Vit 2022-0 Yes [id number] 1{packe Take 1 Univers Comb.10-Iro 6-27 t} Packet by ity of n-FA-DHA 00:00: mouth [place] (VITAFOL-OB 00 daily. Medica l +DHA) Branch 65-1-250 mg combo pack Prenat Vit 2021-0 Yes [id number] 1{packe Take 1 Univers Comb.10-Iro 6-27 t} Packet by ity of n-FA-DHA 00:00: mouth [place] (VITAFOL-OB 00 daily. Medica l +DHA) Branch 65-1-250 mg combo pack Prenat Vit 2021-0 Yes [id number] 1{packe Take 1 Univers Comb.10-Iro 6-27 t} Packet by ity of n-FA-DHA 00:00: mouth [place] (VITAFOL-OB 00 daily. Medica l +DHA) Branch 65-1-250 mg combo pack Prenat Vit 2021-0 Yes [id number] 1{packe Take 1 Univers Comb.10-Iro 6-27 t} Packet by ity of n-FA-DHA 00:00: mouth [place] (VITAFOL-OB 00 daily. Medica l +DHA) Branch 65-1-250 mg combo pack Prenat Vit 2021-0 2022- No [id number] 1{packe Take 1 Univers Comb.10-Iro 6-27 02-10 t} Packet by it y of n-FA-DHA 00:00: 00:00 mouth [place] (VITAFOL-OB 00 :00 daily. Medica l +DHA) Branch 65-1-250 mg combo pack Prenat Vit 2021-0 2022- No [id number] 1{packe Take 1 Univers Comb.10-Iro 6-27 02-10 t} Packet by it y of n-FA-DHA 00:00: 00:00 mouth [place] (VITAFOL-OB 00 :00 daily. Medica l +DHA) Branch 65-1-250 mg combo pack bromphenira 2021- No [id number] 5mL Take 5 mL Univers mine-pseudo 3 06-30 by mouth 4 i ty of ephedrine-D 00:00: 00:00 (four) [place] as M (BROMFED 00 :00 times Medical DM) 2-30-10 daily as Bran ch mg/5 mL needed for syrup Congestion /Allergies . bromphenira 0 2021- No [id number] 5mL Take 5 mL Univers mine-pseudo 3 06-30 by mouth 4 i ty of ephedrine-D 00:00: 00:00 (four) [place] M (BROMFED 00 :00 times Medical DM) 2-30-10 daily as Bran ch mg/5 mL needed for syrup Congestion /Allergies . albuterol 2021- No [id number] 2{puff} Inhale 2 Univers 90 2-26 06-30 Puffs ity of mcg/actuati 00:00: 00:00 every 6 [place] inhaler 00 :00 (six) Medical hours as Branch needed for Wheezing or Shortness of Breath. cetirizine 2021- No [id number] 10mg Take 1 Univers 10 mg 2- 06-30 tablet by ity of tablet 00:00: 00:00 mouth [place] 00 :00 daily. Medical Branch fluticasone 2021- No [id number] 2{spray Use 2 Univers propionate 2- 06-30 } Sprays in ity of 50 00:00: 00:00 each [place] mcg/actuati 00 :00 nostril Medic al on nasal daily. Branch spray albuterol 2021- No [id number] 2{puff} Inhale 2 Univers 90 2-26 06-30 Puffs ity of mcg/actuati 00:00: 00:00 every 6 [place] inhaler 00 :00 (six) Medical hours as Branch needed for Wheezing or Shortness of Breath. cetirizine 2021- No [id number] 10mg Take 1 Univers 10 mg 2- 06-30 tablet by ity of tablet 00:00: 00:00 mouth [place] 00 :00 daily. Medical Branch fluticasone 2021- No [id number] 2{spray Use 2 Univers propionate 2-26 06-30 } Sprays in ity of 50 00:00: 00:00 each [place] mcg/actuati 00 :00 nostril Medic al on nasal daily. Branch spray fluticasone 2020-08- No [id number] 1{puff} Inhale 1 Univers propion-ina 1-22 06-30 Puff every i ty of meteroL 00:00: 00:00 12 [place] (ADVAIR 00 :00 (twelve) Medical DISKUS) hours. Branch 250-50 mcg/dose inhalation disk fluticasone 2020-08- No [id number] 1{puff} Inhale 1 Univers propion-ina 1-22 06-30 Puff every i ty of meteroL 00:00: 00:00 12 [place] (ADVAIR 00 :00 (twelve) Medical DISKUS) hours. Branch 250-50 mcg/dose inhalation disk albuterol 2020-08- No [id number] 2{puff} Inhale 2 Univers 90 0-06 06-30 Puffs ity of mcg/actuati 00:00: 00:00 every 6 [place] inhaler 00 :00 (six) Medical hours as Branch needed for Wheezing or Shortness of Breath. cetirizine 2020-08- No [id number] 10mg Take 1 Univers (ZYRTEC) 10 0-06 06-30 tablet by it y of mg tablet 00:00: 00:00 mouth [place] 00 :00 daily. Medical Branch fluticasone 2020-08- No [id number] 1{spray Use 1 Univers propionate 0-06 06-30 } [place] in ity of 50 00:00: 00:00 each [place] mcg/actuati 00 :00 nostril Medic al on nasal daily. Branch spray azelastine 2020-08- No [id number] 1{spray Use 1 Univers 137 mcg 0-06 06-30 } [place] in ity of (0.1 %) 00:00: 00:00 each [place] nasal spray 00 :00 nostril 2 Med ical (two) Branch times daily. Use in each nostril as directed albuterol 2020-08- No [id number] 2{puff} Inhale 2 Univers 90 0-06 06-30 Puffs ity of mcg/actuati 00:00: 00:00 every 6 [place] inhaler 00 :00 (six) Medical hours as Branch needed for Wheezing or Shortness of Breath. cetirizine 2020-08- No [id number] 10mg Take 1 Univers (ZYRTEC) 10 0-06 06-30 tablet by it y of mg tablet 00:00: 00:00 mouth [place] 00 :00 daily. Medical Branch fluticasone 2020-08- No [id number] 1{spray Use 1 [facility] propionate 030 } [place] in ity of 50 00:00: 00:00 each [place] mcg/actuati 00 :00 nostril Medic al on nasal daily. Branch spray azelastine 2020-08- No [id number] 1{spray Use 1 Univers 137 mcg 030 } [place] in ity of (0.1 %) 00:00: 00:00 each [place] nasal spray 00 :00 nostril 2 Med ical (two) Branch times daily. Use in each nostril as directed Immunizations Ordered Filled Immunization Date Status Comments [facility] e Immunization Name Name Influenza Virus [...] YRS TDAP 2021-01-29 Completed University of 00:00:00 [facility] TDAP 2021-01-29 Completed University of 00:00:00 [facility] TDAP 2021-01-29 Completed University of 00:00:00 [facility] TDAP 2021-01-29 Completed University of 00:00:00 [facility] TDAP 2021-01-29 Completed University of 00:00:00 [facility] TDAP 2021-01-29 Completed University of 00:00:00 [facility] TDAP 2021-01-29 Completed University of 00:00:00 [facility] TDAP 2021-01-29 Completed University of 00:00:00 [facility] TDAP 2021-01-29 Completed University of 00:00:00 [facility] TDAP 2021-01-29 Completed University of 00:00:00 [facility] TDAP 2021-01-29 Completed University of 00:00:00 [facility] TDAP 2021-01-29 Completed University of 00:00:00 [facility] TDAP 2021-01-29 Completed University of 00:00:00 [facility] TDAP 2021-01-29 Completed University of 00:00:00 [facility] TDAP 2021-01-29 Completed University of 00:00:00 [facility] TDAP 2021-01-29 Completed University of 00:00:00 [facility] TDAP 2021-01-29 Completed University of 00:00:00 [facility] Branch TDAP 2021-01-29 Completed University of 00:00:00 [facility] Branch TDAP 2021-01-29 Completed University of 00:00:00 [facility] TDAP 2021-01-29 Completed University of 00:00:00 [facility] TDAP 2021-01-29 Completed University of 00:00:00 [facility] TDAP 2021-01-29 Completed University of 00:00:00 [facility] TDAP 2021-01-29 Completed University of 00:00:00 [facility] TDAP 2021-01-29 Completed University of 00:00:00 [facility] TDAP 2021-01-29 Completed University of 00:00:00 [facility] TDAP 2021-01-29 Completed University of 00:00:00 [facility] TDAP 2021-01-29 Completed University of 00:00:00 [facility] TDAP 2021-01-29 Completed University of 00:00:00 [facility] TDAP 2021-01-29 Completed University of 00:00:00 [facility] TDAP 2021-01-29 Completed University of 00:00:00 [facility] TDAP 2021-01-29 Completed University of 00:00:00 [facility] TDAP 2021-01-29 Completed University of 00:00:00 [facility] TDAP 2021-01-29 Completed University of 00:00:00 [facility] TDAP 2021-01-29 Completed University of 00:00:00 [facility] TDAP 2021-01-29 Completed University of 00:00:00 [facility] TDAP 2021-01-29 Completed University of 00:00:00 [facility] TDAP 2021-01-29 Completed University of 00:00:00 [facility] TDAP 2021-01-29 Completed University of 00:00:00 [facility] TDAP 2021-01-29 Completed University of 00:00:00 [facility] TDAP 2021-01-29 Completed University of 00:00:00 [facility] TDAP 2021-01-29 Completed University of 00:00:00 [facility] TDAP 2021-01-29 Completed University of 00:00:00 [facility] Branch TDAP 2021-01-29 Completed University of 00:00:00 [facility] Branch TDAP 2021-01-29 Completed University of 00:00:00 [facility] Branch TDAP 2021-01-29 Completed University of 00:00:00 [place] [facility] TDAP 2021-01-29 Completed University of 00:00:00 [facility] TDAP 2021-01-29 Completed University of 00:00:00 [facility] Branch TDAP 2021-01-29 Completed University of 00:00:00 [facility] Branch TDAP 2021-01-29 Completed University of 00:00:00 [facility] Branch TDAP 2021-01-29 Completed University of 00:00:00 [facility] Branch TDAP 2021-01-29 Completed University of 00:00:00 [facility] TDAP 2021-01-29 Completed University of 00:00:00 [facility] TDAP 2021-01-29 Completed University of 00:00:00 [facility] TDAP 2021-01-29 Completed University of 00:00:00 [facility] TDAP 2021-01-29 Completed University of 00:00:00 [facility] TDAP 2021-01-29 Completed University of 00:00:00 [facility] TDAP 2021-01-29 Completed University of 00:00:00 [facility] TDAP 2021-01-29 Completed University of 00:00:00 [facility] TDAP 2021-01-29 Completed University of 00:00:00 [facility] TDAP 2021-01-29 Completed University of 00:00:00 [facility] TDAP 2021-01-29 Completed University of 00:00:00 [facility] TDAP 2021-01-29 Completed University of 00:00:00 [facility] TDAP 2021-01-29 Completed University of 00:00:00 [facility] TDAP 2021-01-29 Completed University of 00:00:00 [facility] TDAP 2021-01-29 Completed University of 00:00:00 [facility] TDAP 2021-01-29 Completed University of 00:00:00 [facility] TDAP 2021-01-29 Completed University of 00:00:00 [facility] TDAP 2021-01-29 Completed University of 00:00:00 [facility] Branch TDAP 2021-01-29 Completed University of 00:00:00 [facility] Branch TDAP 2021-01-29 Completed University of 00:00:00 [place] [facility] TDAP 2021-01-29 Completed University of 00:00:00 [place] [facility] TDAP 2021-01-29 Completed University of 00:00:00 [facility] Branch TDAP 2021-01-29 Completed University of 00:00:00 [facility] Branch TDAP 2021-01-29 Completed University of 00:00:00 [facility] Branch TDAP 2021-01-29 Completed University of 00:00:00 [facility] Branch TDAP 2021-01-29 Completed University of 00:00:00 [facility] TDAP 2021-01-29 Completed University of 00:00:00 [facility] TDAP 2021-01-29 Completed University of 00:00:00 [facility] TDAP 2021-01-29 Completed University of 00:00:00 [facility] TDAP 2021-01-29 Completed University of 00:00:00 [facility] TDAP 2021-01-29 Completed University of 00:00:00 [facility] TDAP 2021-01-29 Completed University of 00:00:00 [facility] TDAP 2021-01-29 Completed University of 00:00:00 [facility] TDAP 2021-01-29 Completed University of 00:00:00 [facility] TDAP 2021-01-29 Completed University of 00:00:00 [facility] TDAP 2021-01-29 Completed University of 00:00:00 [facility] Branch TDAP 2021-01-29 Completed University of 00:00:00 [facility] TDAP 2021-01-29 Completed University of 00:00:00 [facility] TDAP 2021-01-29 Completed University of 00:00:00 [facility] TDAP 2021-01-29 Completed University of 00:00:00 [facility] TDAP 2021-01-29 Completed University of 00:00:00 [facility] TDAP 2021-01-29 Completed University of 00:00:00 [facility] TDAP 2021-01-29 Completed University of 00:00:00 [facility] TDAP 2021-01-29 Completed University of 00:00:00 [facility] TDAP 2021-01-29 Completed University of 00:00:00 [facility] TDAP 2021-01-29 Completed University of 00:00:00 [facility] TDAP 2021-01-29 Completed University of 00:00:00 [facility] TDAP 2021-01-29 Completed University of 00:00:00 [facility] TDAP 2021-01-29 Completed University of 00:00:00 [facility] TDAP 2021-01-29 Completed University of 00:00:00 [facility] TDAP 2021-01-29 Completed University of 00:00:00 [facility] TDAP 2021-01-29 Completed University of 00:00:00 [facility] TDAP 2021-01-29 Completed University of 00:00:00 [facility] TDAP 2021-01-29 Completed University of 00:00:00 [facility] TDAP 2021-01-29 Completed University of 00:00:00 [facility] TDAP 2021-01-29 Completed University of 00:00:00 [facility] TDAP 2021-01-29 Completed University of 00:00:00 [facility] TDAP 2021-01-29 Completed University of 00:00:00 [facility] TDAP 2021-01-29 Completed University of 00:00:00 [facility] TDAP 2021-01-29 Completed University of 00:00:00 [facility] TDAP 2021-01-29 Completed University of 00:00:00 [facility] Influenza Virus 2018-09-27 Completed Universit y [...] y of Vaccine Quad .5 mL 00:00:00 [facility] IM 6+ MO Branch Influenza Virus 2018-09-27 [...] mL 00:00:00 [place] [facility] IM 6+ MO [place] Influenza Virus 2018-09-27 Completed Universit y of Vaccine Quad .5 mL 00:00:00 [place] [facility] IM 6+ MO Branch Influenza Virus 2016-10-20 Completed Universit y of Vaccine Quad IM 3+ 00:00:00 [facility] [place] Influenza Virus 2016-10-20 Completed Universit y of Vaccine Quad IM 3+ 00:00:00 [facility] Influenza Virus 2016-10-20 Completed Universit y of Vaccine Quad IM 3+ 00:00:00 [facility] Influenza Virus 2016-10-20 Completed Universit y of Vaccine Quad IM 3+ 00:00:00 [facility] Influenza Virus 2016-10-20 Completed Universit y of Vaccine Quad IM 3+ 00:00:00 [facility] Influenza Virus 2016-10-20 Completed Universit y of Vaccine Quad IM 3+ 00:00:00 [facility] Influenza Virus 2016-10-20 Completed Universit y of Vaccine Quad IM 3+ 00:00:00 [facility] Influenza Virus 2016-10-20 Completed Universit y of Vaccine Quad IM 3+ 00:00:00 [facility] Influenza Virus 2016-10-20 Completed Universit y of Vaccine Quad IM 3+ 00:00:00 [facility] Influenza Virus 2016-10-20 Completed Universit y of Vaccine Quad IM 3+ 00:00:00 [facility] Influenza Virus 2016-10-20 Completed Universit y of Vaccine Quad IM 3+ 00:00:00 [facility] Influenza Virus 2016-10-20 Completed Universit y of Vaccine Quad IM 3+ 00:00:00 [facility] Influenza Virus 2016-10-20 Completed Universit y of Vaccine Quad IM 3+ 00:00:00 [facility] Influenza Virus 2016-10-20 Completed Universit y of Vaccine Quad IM 3+ 00:00:00 [facility] Influenza Virus 2016-10-20 Completed Universit y of Vaccine Quad IM 3+ 00:00:00 [facility] Influenza Virus 2016-10-20 Completed Universit y of Vaccine Quad IM 3+ 00:00:00 [facility] Influenza Virus 2016-10-20 Completed Universit y of Vaccine Quad IM 3+ 00:00:00 [facility] Influenza Virus 2016-10-20 Completed Universit y of Vaccine Quad IM 3+ 00:00:00 [facility] Influenza Virus 2016-10-20 Completed Universit y of Vaccine Quad IM 3+ 00:00:00 [facility] Influenza Virus 2016-10-20 Completed Universit y of Vaccine Quad IM 3+ 00:00:00 [facility] Influenza Virus 2016-10-20 Completed Universit y of Vaccine Quad IM 3+ 00:00:00 [facility] Influenza Virus 2016-10-20 Completed Universit y of Vaccine Quad IM 3+ 00:00:00 [facility] Influenza Virus 2016-10-20 Completed Universit y of Vaccine Quad IM 3+ 00:00:00 [facility] Influenza Virus 2016-10-20 Completed Universit y of Vaccine Quad IM 3+ 00:00:00 [facility] Influenza Virus 2016-10-20 Completed Universit y of Vaccine Quad IM 3+ 00:00:00 [facility] Influenza Virus 2016-10-20 Completed Universit y of Vaccine Quad IM 3+ 00:00:00 [facility] Influenza Virus 2016-10-20 Completed Universit y of Vaccine Quad IM 3+ 00:00:00 [facility] Influenza Virus 2016-10-20 Completed Universit y of Vaccine Quad IM 3+ 00:00:00 [facility] Influenza Virus 2016-10-20 Completed Universit y of Vaccine Quad IM 3+ 00:00:00 [facility] Influenza Virus 2016-10-20 Completed Universit y of Vaccine Quad IM 3+ 00:00:00 [facility] Influenza Virus 2016-10-20 Completed Universit y of Vaccine Quad IM 3+ 00:00:00 [facility] Influenza Virus 2016-10-20 Completed Universit y of Vaccine Quad IM 3+ 00:00:00 [facility] Influenza Virus 2016-10-20 Completed Universit y of Vaccine Quad IM 3+ 00:00:00 [facility] Influenza Virus 2016-10-20 Completed Universit y of Vaccine Quad IM 3+ 00:00:00 [facility] Influenza Virus 2016-10-20 Completed Universit y of Vaccine Quad IM 3+ 00:00:00 [facility] Influenza Virus 2016-10-20 Completed Universit y of Vaccine Quad IM 3+ 00:00:00 [facility] Influenza Virus 2016-10-20 Completed Universit y of Vaccine Quad IM 3+ 00:00:00 [facility] Influenza Virus 2016-10-20 Completed Universit y of Vaccine Quad IM 3+ 00:00:00 [facility] Influenza Virus 2016-10-20 Completed Universit y of Vaccine Quad IM 3+ 00:00:00 [facility] Influenza Virus 2016-10-20 Completed Universit y of Vaccine Quad IM 3+ 00:00:00 [facility] Influenza Virus 2016-10-20 Completed Universit y of Vaccine Quad IM 3+ 00:00:00 [facility] Influenza Virus 2016-10-20 Completed Universit y of Vaccine Quad IM 3+ 00:00:00 [facility] Influenza Virus 2016-10-20 Completed Universit y of Vaccine Quad IM 3+ 00:00:00 [facility] Influenza Virus 2016-10-20 Completed Universit y of Vaccine Quad IM 3+ 00:00:00 [facility] Influenza Virus 2016-10-20 Completed Universit y of Vaccine Quad IM 3+ 00:00:00 [facility] Influenza Virus 2016-10-20 Completed Universit y of Vaccine Quad IM 3+ 00:00:00 [facility] Influenza Virus 2016-10-20 Completed Universit y of Vaccine Quad IM 3+ 00:00:00 [facility] Influenza Virus 2016-10-20 Completed Universit y of Vaccine Quad IM 3+ 00:00:00 [facility] Influenza Virus 2016-10-20 Completed Universit y of Vaccine Quad IM 3+ 00:00:00 [facility] Influenza Virus 2016-10-20 Completed Universit y of Vaccine Quad IM 3+ 00:00:00 [facility] Influenza Virus 2016-10-20 Completed Universit y of Vaccine Quad IM 3+ 00:00:00 [facility] Influenza Virus 2016-10-20 Completed Universit y of Vaccine Quad IM 3+ 00:00:00 [facility] Influenza Virus 2016-10-20 Completed Universit y of Vaccine Quad IM 3+ 00:00:00 [facility] Influenza Virus 2016-10-20 Completed Universit y of Vaccine Quad IM 3+ 00:00:00 [facility] Influenza Virus 2016-10-20 Completed Universit y of Vaccine Quad IM 3+ 00:00:00 [facility] Influenza Virus 2016-10-20 Completed Universit y of Vaccine Quad IM 3+ 00:00:00 [facility] Influenza Virus 2016-10-20 Completed Universit y of Vaccine Quad IM 3+ 00:00:00 [facility] Influenza Virus 2016-10-20 Completed Universit y of Vaccine Quad IM 3+ 00:00:00 [facility] Influenza Virus 2016-10-20 Completed Universit y of Vaccine Quad IM 3+ 00:00:00 [facility] Influenza Virus 2016-10-20 Completed Universit y of Vaccine Quad IM 3+ 00:00:00 [facility] Influenza Virus 2016-10-20 Completed Universit y of Vaccine Quad IM 3+ 00:00:00 [facility] Influenza Virus 2016-10-20 Completed Universit y of Vaccine Quad IM 3+ 00:00:00 [facility] Influenza Virus 2016-10-20 Completed Universit y of Vaccine Quad IM 3+ 00:00:00 [facility] Influenza Virus 2016-10-20 Completed Universit y of Vaccine Quad IM 3+ 00:00:00 [facility] Influenza Virus 2016-10-20 Completed Universit y of Vaccine Quad IM 3+ 00:00:00 [facility] Influenza Virus 2016-10-20 Completed Universit y of Vaccine Quad IM 3+ 00:00:00 [facility] Influenza Virus 2016-10-20 Completed Universit y of Vaccine Quad IM 3+ 00:00:00 [facility] Influenza Virus 2016-10-20 Completed [facility] IM 3+ 00:00:00 [facility] Influenza Virus 2016-10-20 Completed [facility]ine [facility] IM 3+ 00:00:00 [facility] Influenza Virus 2016-10-20 Completed [facility]ine [facility] IM 3+ 00:00:00 [facility] Influenza Virus 2016-10-20 Completed [facility]ine [facility] IM 3+ 00:00:00 [facility] Influenza Virus 2016-10-20 Completed [facility]ine [facility] IM 3+ 00:00:00 [facility] Influenza Virus 2016-10-20 Completed [facility]ine [facility] IM 3+ 00:00:00 [facility] Influenza Virus 2016-10-20 Completed [facility]ine [facility] IM 3+ 00:00:00 [facility] Influenza Virus 2016-10-20 Completed [facility] Vaccine [facility] IM 3+ 00:00:00 [facility] Influenza Virus 2016-10-20 Completed [facility]ine [facility] IM 3+ 00:00:00 [facility] Influenza Virus 2016-10-20 Completed [facility]ine [facility] IM 3+ 00:00:00 [facility] Influenza Virus 2016-10-20 Completed [facility] Vaccine [facility] IM 3+ 00:00:00 [facility] Influenza Virus 2016-10-20 Completed [facility]ine [facility] IM 3+ 00:00:00 [facility] Influenza Virus 2016-10-20 Completed [facility]ine [facility] IM 3+ 00:00:00 [facility] Influenza Virus 2016-10-20 Completed [facility]ine [facility] IM 3+ 00:00:00 [facility] Influenza Virus 2016-10-20 Completed [facility]ine [facility] IM 3+ 00:00:00 [facility] Influenza Virus 2016-10-20 Completed [facility] Vaccine [facility] IM 3+ 00:00:00 [facility] Influenza Virus 2016-10-20 Completed [facility]ine [facility] IM 3+ 00:00:00 [facility] Influenza Virus 2016-10-20 Completed [facility] Vaccine [facility] IM 3+ 00:00:00 [facility] Influenza Virus 2016-10-20 Completed [facility]ine [facility] IM 3+ 00:00:00 [facility] Influenza Virus 2016-10-20 Completed [facility]ine [facility] IM 3+ 00:00:00 [facility] Influenza Virus 2016-10-20 Completed [facility] Vaccine [facility] IM 3+ 00:00:00 [facility] Influenza Virus 2016-10-20 Completed [facility] Vaccine [facility] IM 3+ 00:00:00 [facility] Influenza Virus 2016-10-20 Completed [facility] Vaccine [facility] IM 3+ 00:00:00 [facility] Influenza Virus 2016-10-20 Completed [facility]ine [facility] IM 3+ 00:00:00 [facility] Influenza Virus 2016-10-20 Completed [facility] Vaccine [facility] IM 3+ 00:00:00 [facility] Influenza Virus 2016-10-20 Completed [facility] Vaccine [facility] IM 3+ 00:00:00 [facility] Influenza Virus 2016-10-20 Completed [facility] Vaccine [facility] IM 3+ 00:00:00 [facility] Influenza Virus 2016-10-20 Completed [facility] Vaccine [facility] IM 3+ 00:00:00 [facility] Influenza Virus 2016-10-20 Completed [facility] Vaccine [facility] IM 3+ 00:00:00 [facility] Influenza Virus 2016-10-20 Completed [facility] Vaccine [facility] IM 3+ 00:00:00 [facility] Influenza Virus 2016-10-20 Completed [facility] Vaccine [facility] IM 3+ 00:00:00 [facility] Influenza Virus 2016-10-20 Completed [facility] Vaccine [facility] IM 3+ 00:00:00 [facility] Influenza Virus 2016-10-20 Completed [facility] Vaccine [facility] IM 3+ 00:00:00 [facility] Influenza Virus 2016-10-20 Completed [facility] of Vaccine [facility] IM 3+ 00:00:00 [facility] Influenza Virus 2016-10-20 Completed [facility] Vaccine [facility] IM 3+ 00:00:00 [facility] Influenza Virus 2016-10-20 Completed [facility] Vaccine [facility] IM 3+ 00:00:00 [facility] Influenza Virus 2016-10-20 Completed [facility] Vaccine [facility] IM 3+ 00:00:00 [facility] Influenza Virus 2016-10-20 Completed [facility] Vaccine [facility] IM 3+ 00:00:00 [facility] Influenza Virus 2016-10-20 Completed [facility] Vaccine [facility] IM 3+ 00:00:00 [facility] Influenza Virus 2016-10-20 Completed [facility] Vaccine [facility] IM 3+ 00:00:00 [facility] Influenza Virus 2016-10-20 Completed [facility] Vaccine [facility] IM 3+ 00:00:00 [facility] Influenza Virus 2016-10-20 Completed [facility] Vaccine [facility] IM 3+ 00:00:00 [facility] Influenza Virus 2016-10-20 Completed [facility] Vaccine [facility] IM 3+ 00:00:00 [facility] Influenza Virus 2016-10-20 Completed [facility] Vaccine [facility] IM 3+ 00:00:00 [facility] TDAP 2015-01-29 Completed [facility] of 00:00:00 [facility] TDAP 2015-01-29 Completed [facility] of 00:00:00 [facility] TDAP 2015-01-29 Completed [facility] of 00:00:00 [facility] TDAP 2015-01-29 Completed [facility] of 00:00:00 [facility] TDAP 2015-01-29 Completed [facility] 00:00:00 [place] [facility] TDAP 2015-01-29 Completed [facility] 00:00:00 [facility] TDAP 2015-01-29 Completed [facility] of 00:00:00 [facility] TDAP 2015-01-29 Completed [facility] of 00:00:00 [facility] TDAP 2015-01-29 Completed [facility] of 00:00:00 [facility] TDAP 2015-01-29 Completed [facility] of 00:00:00 [facility] TDAP 2015-01-29 Completed [facility] of 00:00:00 [facility] TDAP 2015-01-29 Completed [facility] of 00:00:00 [facility] TDAP 2015-01-29 Completed [facility] of 00:00:00 [facility] TDAP 2015-01-29 Completed [facility] of 00:00:00 [facility] TDAP 2015-01-29 Completed [facility] of 00:00:00 [facility] TDAP 2015-01-29 Completed [facility] of 00:00:00 [facility] TDAP 2015-01-29 Completed [facility] of 00:00:00 [facility] TDAP 2015-01-29 Completed [facility] of 00:00:00 [facility] TDAP 2015-01-29 Completed [facility] of 00:00:00 [facility] TDAP 2015-01-29 Completed [facility] of 00:00:00 [facility] TDAP 2015-01-29 Completed [facility] of 00:00:00 [facility] TDAP 2015-01-29 Completed [facility] of 00:00:00 [facility] TDAP 2015-01-29 Completed [facility] of 00:00:00 [facility] TDAP 2015-01-29 Completed [facility] of 00:00:00 [facility] TDAP 2015-01-29 Completed [facility] of 00:00:00 [facility] TDAP 2015-01-29 Completed [facility] of 00:00:00 [facility] TDAP 2015-01-29 Completed [facility] of 00:00:00 [facility] TDAP 2015-01-29 Completed [facility] of 00:00:00 [facility] TDAP 2015-01-29 Completed [facility] of 00:00:00 [facility] HPV 2010-07-05 Completed [facility] of 00:00:00 [facility] Influenza Virus 2010-07-05 Completed [facility] of Vaccine - Whole 00:00:00 [facility] HPV 2010-07-05 Completed [facility] of 00:00:00 [facility] Influenza Virus 2010-07-05 Completed [facility] y of Vaccine - Whole 00:00:00 [facility] HPV 2010-07-05 Completed [facility] of 00:00:00 [facility] Influenza Virus 2010-07-05 Completed [facility] of Vaccine - Whole 00:00:00 [facility] HPV 2010-07-05 Completed [facility] of 00:00:00 [facility] Influenza Virus 2010-07-05 Completed [facility] y of Vaccine - Whole 00:00:00 [facility] HPV 2010-07-05 Completed [facility] of 00:00:00 [facility] Influenza Virus 2010-07-05 Completed [facility] y of Vaccine - Whole 00:00:00 [facility] HPV 2010-07-05 Completed [facility] of 00:00:00 [facility] Influenza Virus 2010-07-05 Completed [facility] y of Vaccine - Whole 00:00:00 [facility] HPV 2010-07-05 Completed [facility] of 00:00:00 [facility] Influenza Virus 2010-07-05 Completed [facility] of Vaccine - Whole 00:00:00 [facility] HPV 2010-07-05 Completed [facility] of 00:00:00 [facility] Influenza Virus 2010-07-05 Completed [facility] of Vaccine - Whole 00:00:00 [facility] HPV 2010-07-05 Completed [facility] of 00:00:00 [facility] Influenza Virus 2010-07-05 Completed [facility] y of Vaccine - Whole 00:00:00 [facility] HPV 2010-07-05 Completed [facility] of 00:00:00 [facility] Influenza Virus 2010-07-05 Completed [facility] of Vaccine - Whole 00:00:00 [facility] HPV 2010-07-05 Completed [facility] of 00:00:00 [facility] Influenza Virus 2010-07-05 Completed [facility] of Vaccine - Whole 00:00:00 [facility] HPV 2010-07-05 Completed [facility] of 00:00:00 [facility] Influenza Virus 2010-07-05 Completed [facility] of Vaccine - Whole 00:00:00 [facility] HPV 2010-07-05 Completed [facility] of 00:00:00 [facility] Influenza Virus 2010-07-05 Completed [facility] of Vaccine - Whole 00:00:00 [facility] HPV 2010-07-05 Completed [facility] of 00:00:00 [facility] Influenza Virus 2010-07-05 Completed [facility] of Vaccine - Whole 00:00:00 [facility] HPV 2010-07-05 Completed [facility] of 00:00:00 [facility] Influenza Virus 2010-07-05 Completed [facility] of Vaccine - Whole 00:00:00 [facility] HPV 2010-07-05 Completed [facility] of 00:00:00 [facility] Influenza Virus 2010-07-05 Completed [facility] of Vaccine - Whole 00:00:00 [facility] HPV 2010-07-05 Completed [facility] of 00:00:00 [facility] Influenza Virus 2010-07-05 Completed [facility] of Vaccine - Whole 00:00:00 [facility] HPV 2010-07-05 Completed [facility] of 00:00:00 [facility] Influenza Virus 2010-07-05 Completed [facility] of Vaccine - Whole 00:00:00 [facility] HPV 2010-07-05 Completed [facility] of 00:00:00 [facility] Influenza Virus 2010-07-05 Completed [facility] of Vaccine - Whole 00:00:00 [facility] HPV 2010-07-05 Completed [facility] of 00:00:00 [facility] Influenza Virus 2010-07-05 Completed [facility] of Vaccine - Whole 00:00:00 [facility] HPV 2010-07-05 Completed [facility] of 00:00:00 [facility] Influenza Virus 2010-07-05 Completed [facility] of Vaccine - Whole 00:00:00 [facility] HPV 2010-07-05 Completed [facility] of 00:00:00 [facility] Influenza Virus 2010-07-05 Completed [facility] of Vaccine - Whole 00:00:00 [facility] HPV 2010-07-05 Completed [facility] of 00:00:00 [facility] Influenza Virus 2010-07-05 Completed [facility] of Vaccine - Whole 00:00:00 [facility] HPV 2010-02-12 Completed [facility] of 00:00:00 [facility] HPV 2010-02-12 Completed [facility] 00:00:00 [facility] HPV 2010-02-12 Completed [facility] of 00:00:00 [facility] HPV 2010-02-12 Completed [facility] of 00:00:00 [facility] HPV 2010-02-12 Completed [facility] of 00:00:00 [facility] HPV 2010-02-12 Completed [facility] of 00:00:00 [facility] HPV 2010-02-12 Completed [facility] of 00:00:00 [...] Branch HPV 2009-12-14 Completed [facility] 00:00:00 [facility] HPV 2009-12-14 Completed [facility] 00:00:00 [facility] HPV 2009-12-14 Completed [facility] 00:00:00 [facility] HPV 2009-12-14 Completed [facility] 00:00:00 [facility] HPV 2009-12-14 Completed [facility] 00:00:00 [facility] HPV 2009-12-14 Completed [facility] of 00:00:00 [facility] HPV 2009-12-14 Completed [facility] 00:00:00 [facility] HPV 2009-12-14 Completed [facility] 00:00:00 [facility] HPV 2009-12-14 Completed [facility] 00:00:00 [facility] HPV 2009-12-14 Completed [facility] of 00:00:00 [facility] Vital Signs Vital Name Observation Time Observation Value Comments Source Systolic blood 2022-09-19 16:49:00 142 mm[Hg] Univer sity of pressure [facility] Diastolic blood 2022-09-19 16:49:00 86 mm[Hg] Unive rsity of pressure [facility] Heart rate 2022-09-19 16:48:00 75 /min [facility] Body temperature 2022-09-19 16:48:[facility] 2022-09-19 16:48:00 162.6 cm [facility] Body weight 2022-09-19 16:48:00 90.266 kg [facility] BMI 2022-09-19 16:48:00 34.16 kg/m2 [facility] Heart rate 2022-09-12 16:30:00 66 /min [facility] Body temperature 2022-09-12 16:30:00 [facility]67 [facility] Respiratory rate 2022-09-12 16:30:00 17 /[facility] Systolic blood 2022-09-12 14:00:00 110 mm[Hg] Univer sity of pressure [facility] Diastolic blood 2022-09-12 14:00:00 62 mm[Hg] Unive rsity of pressure [facility] Oxygen saturation in 2022-09-12 12:00:00 99 /min [facility] Arterial blood by [facility] Body height 2022-09-11 11:55:00 162.6 cm [facility] Body weight 2022-09-11 11:55:00 91.264 kg [facility] BMI 2022-09-11 11:55:00 34.54 kg/m2 [facility] Systolic blood 2022-09-11 15:45:00 119 mm[Hg] Univer sity of pressure [facility] Diastolic blood 2022-09-11 15:45:00 54 mm[Hg] Unive rsity of pressure [facility] Heart rate 2022-09-11 15:45:00 89 /min [facility] Body temperature 2022-09-11 15:45:00 36.5 Lien Univ ers[facility] Respiratory rate 2022-09-11 15:45:00 21 /min [facility] Oxygen saturation in 2022-09-11 15:45:00 99 /min [facility] Arterial blood by [facility] Pulse oxim[facility] Body height 2022-09-11 11:55:00 162.6 cm [facility] Body weight 2022-09-11 11:55:00 91.264 kg [facility] BMI 2022-09-11 11:55:00 34.54 kg/m2 [facility] Systolic blood 2022-09-05 20:00:00 122 mm[Hg] Univer sity of pressure [facility] Diastolic blood 2022-09-05 20:00:00 80 mm[Hg] Unive rsity of pressure [facility] Heart rate 2022-09-05 20:00:00 89 /min [facility] Body temperature 2022-09-05 20:00:00 36.56 Lien Univ ers[facility] Body weight 2022-09-05 20:00:00 91.264 kg [facility] BMI 2022-09-05 20:00:00 34.54 kg/m2 [facility] Systolic blood 2022-09-04 08:30:00 109 mm[Hg] Univer sity of pressure [facility] Diastolic blood 2022-09-04 08:30:00 58 mm[Hg] Unive rsity of pressure [facility] Heart rate 2022-09-04 08:30:00 78 /min [facility] Oxygen saturation in 2022-09-04 08:30:00 96 /min [facility] Arterial blood by [facility] P[facility] Systolic blood 2022-08-29 17:05:00 128 mm[Hg] Univer sity of pressure [facility] Diastolic blood 2022-08-29 17:05:00 79 mm[Hg] Unive rsity of pressure [facility] Heart rate 2022-08-29 17:05:00 96 /min [facility] Body temperature 2022-08-29 17:05:00 36.89 Lien Univ ersity of [facility] Respiratory rate 2022-08-29 17:05:00 16 /min Univ ers[facility] of [facility] Body height 2022-08-29 17:05:00 162.6 cm [facility] Body weight 2022-08-29 17:05:00 92.262 kg [facility] BMI 2022-08-29 17:05:00 34.91 kg/m2 [facility] Oxygen saturation in 2022-08-29 17:05:00 99 /min [facility] Arterial blood by [facility] Pulse [facility] Systolic blood 2022-08-22 00:31:00 118 mm[Hg] Univer sity of pressure [facility] Diastolic blood 2022-08-22 00:31:00 77 mm[Hg] Unive rsity of pressure [facility] Heart rate 2022-08-22 00:31:00 105 /min [facility] Body temperature 2022-08-22 00:31:00 36.67 Lien Univ ersity of [facility] Respiratory rate 2022-08-22 00:31:00 16 /min Univ ers[facility] Body height 2022-08-22 00:31:00 162.6 cm [facility] Body weight 2022-08-22 00:31:00 91.808 kg [facility] BMI 2022-08-22 00:31:00 34.74 kg/m2 [facility] Oxygen saturation in 2022-08-22 00:31:00 98 /min [facility] Arterial blood by [facility] Pulse o[facility] Systolic blood 2022-08-14 15:56:00 108 mm[Hg] Univer sity of pressure [facility] Diastolic blood 2022-08-14 15:56:00 73 mm[Hg] Unive rsity of pressure [facility] Heart rate 2022-08-14 15:56:00 84 /min [facility] Body temperature 2022-08-14 15:56:00 36.72 Lien Univ ers[facility] Body weight 2022-08-14 15:56:00 90.357 kg [facility] BMI 2022-08-14 15:56:00 34.19 kg/m2 [facility] Heart rate 2022-08-12 06:00:00 85 /min [facility] Oxygen saturation in 2022-08-12 06:00:00 98 /min [facility] Arterial blood by [facility] Pulse oxim[facility] Systolic blood 2022-08-12 05:30:00 118 mm[Hg] Univer sity of pressure [facility] Diastolic blood 2022-08-12 05:30:00 81 mm[Hg] Unive rsity of pressure [facility] Body temperature 2022-08-12 02:00:00 36.83 Lien Univ ers[facility] Respiratory rate 2022-08-12 00:46:00 18 /min Univ ers[facility] Body weight 2022-08-12 00:46:00 90.493 kg [facility] BMI 2022-08-12 00:46:00 34.24 kg/m2 [facility] Systolic blood 2022-07-31 15:00:00 110 mm[Hg] Univer sity of pressure [facility] Diastolic blood 2022-07-31 15:00:00 75 mm[Hg] Unive rsity of pressure [facility] Heart rate 2022-07-31 15:00:00 89 /min [facility] Body temperature 2022-07-31 15:00:00 36.72 Lien Univ ers[facility] Respiratory rate 2022-07-31 15:00:00 18 /min Univ ers[facility] Body height 2022-07-31 15:00:00 162.6 cm [facility] Body weight 2022-07-31 15:00:00 90.629 kg [facility] BMI 2022-07-31 15:00:00 34.30 kg/m2 [facility] Systolic blood 2022-07-31 01:49:00 131 mm[Hg] Univer sity of pressure [facility] Diastolic blood 2022-07-31 01:49:00 74 mm[Hg] Unive rsity of pressure [facility] Heart rate 2022-07-31 01:49:00 98 /min [facility] Respiratory rate 2022-07-31 01:49:00 16 /min Univ ers[facility] Oxygen saturation in 2022-07-31 01:49:00 100 /min [facility] Arterial blood by [facility] Pulse oxim[facility] Body temperature 2022-07-30 23:24:00 36.72 Lien Univ ers[facility] Systolic blood 2022-07-30 08:06:57 124 mm[Hg] Univer sity of pressure [facility] Diastolic blood 2022-07-30 08:06:57 71 mm[Hg] Unive rsity of pressure [facility] Heart rate 2022-07-30 08:06:57 100 /min [facility] Respiratory rate 2022-07-30 08:06:57 18 /min Univ ers[facility] Oxygen saturation in 2022-07-30 08:06:57 98 /min [facility] Arterial blood by [facility] Pulse o[facility] Body temperature 2022-07-30 07:37:00 36.61 Lien Univ [facility] Body height 2022-07-30 07:37:00 162.6 cm [facility] Body weight 2022-07-30 07:37:00 87.091 kg [facility] BMI 2022-07-30 07:37:00 32.96 kg/m2 [facility] Systolic blood 2022-07-18 17:24:00 117 mm[Hg] Univer sity of pressure [facility] Diastolic blood 2022-07-18 17:24:00 85 mm[Hg] Unive rsity of pressure [facility] Heart rate 2022-07-18 17:24:00 100 /min [facility] Body temperature 2022-07-18 17:24:00 36.78 Lien Univ [facility] Respiratory rate 2022-07-18 17:24:00 16 /min [facility] Body height 2022-07-18 17:24:00 162.6 cm [facility] Body weight 2022-07-18 17:24:00 89.721 kg [facility] BMI 2022-07-18 17:24:00 33.95 kg/m2 [facility] ty of [facility] Oxygen saturation in 2022-07-18 17:24:00 100 /min [facility] Arterial blood by [facility] Pulse oximetry Branch Systolic blood 2022-07-18 14:49:00 118 mm[Hg] Univer sity of pressure [facility] Diastolic blood 2022-07-18 14:49:00 79 mm[Hg] Unive rsity of pressure [facility] Heart rate 2022-07-18 14:49:00 88 /min [facility] Body temperature 2022-07-18 14:49:00 36.72 Lien Univ ers[facility] Body height 2022-07-18 14:49:00 162.6 cm [facility] Body weight 2022-07-18 14:49:00 89.903 kg [facility] BMI 2022-07-18 14:49:00 34.02 kg/m2 [facility] Systolic blood 2022-07-01 16:37:00 130 mm[Hg] Univer sity of pressure [facility] Diastolic blood 2022-07-01 16:37:00 86 mm[Hg] Unive rsity of pressure [facility] Heart rate 2022-07-01 16:37:00 89 /min [facility] Body temperature 2022-07-01 16:37:00 36.83 Lien [facility] Respiratory rate 2022-07-01 16:37:00 18 /min [facility] Body height 2022-07-01 16:37:00 162.6 cm [facility] Body weight 2022-07-01 16:37:00 89.812 kg [facility] BMI 2022-07-01 16:37:00 33.99 kg/m2 [facility] Systolic blood 2022-06-20 15:29:00 112 mm[Hg] [facility] Diastolic blood 2022-06-20 15:29:00 70 mm[Hg] Unive [facility] Heart rate 2022-06-20 15:29:00 87 /min [facility] Body temperature 2022-06-20 15:29:00 36.83 Lien [facility] Respiratory rate 2022-06-20 15:29:00 16 /min [facility] Body height 2022-06-20 15:29:00 162.6 cm [facility] Body weight 2022-06-20 15:29:00 88.86 kg [facility] BMI 2022-06-20 15:29:00 33.63 kg/m2 [facility] Oxygen saturation in 2022-06-20 15:29:00 96 /min [facility] of Arterial blood by [facility] rosa isela Pulse oximetry Branch Systolic blood 2022-05-23 13:46:00 128 mm[Hg] [facility] Diastolic blood 2022-05-23 13:46:00 83 mm[Hg] Unive [facility] Heart rate 2022-05-23 13:46:00 93 /min [facility] Body temperature 2022-05-23 13:46:00 36.89 Lien [facility] Respiratory rate 2022-05-23 13:46:00 16 /min [facility] Body height 2022-05-23 13:46:00 162.6 cm [facility] Body weight 2022-05-23 13:46:00 88.089 kg [facility] BMI 2022-05-23 13:46:00 33.33 kg/m2 [facility] Oxygen saturation in 2022-05-23 13:46:00 98 /min [facility] [place] [facility] rosa isela Pulse oximetry Branch Systolic blood 2022-05-21 20:21:00 122 mm[Hg] [facility] Diastolic blood 2022-05-21 20:21:00 80 mm[Hg] [facility] Body temperature 2022-05-21 20:21:00 36.83 Lien [facility] Respiratory rate 2022-05-21 20:21:00 18 /min [facility] Body height 2022-05-21 20:21:00 162.6 cm [facility] Body weight 2022-05-21 20:21:00 87.998 kg [facility] BMI 2022-05-21 20:21:00 33.30 kg/m2 [facility] Systolic blood 2022-05-16 14:24:00 113 mm[Hg] [facility] Diastolic blood 2022-05-16 14:24:00 71 mm[Hg] [facility] Heart rate 2022-05-16 14:24:00 84 /min [facility] Body height 2022-05-16 14:24:00 162.6 cm [facility] Body weight 2022-05-16 14:24:00 90.266 kg [facility] BMI 2022-05-16 14:24:00 34.16 kg/m2 [facility] Oxygen saturation in 2022-05-16 14:24:00 98 /min [facility] Arterial blood by [facility] Pulse oximetry Branch Body weight 2022-05-16 13:20:00 90.266 kg [facility] BMI 2022-05-16 13:20:00 34.16 kg/m2 [facility] Systolic blood 2022-05-09 14:17:00 116 mm[Hg] [facility] Diastolic blood 2022-05-09 14:17:00 80 mm[Hg] [facility] Heart rate 2022-05-09 14:17:00 79 [...] 2022-05-02 19:37:00 33.64 kg/m2 [facility] Systolic blood 2022-04-25 14:49:00 116 mm[Hg] [facility] Diastolic blood 2022-04-25 14:49:00 76 mm[Hg] [facility] Heart rate 2022-04-25 14:49:00 77 /min [facility] Body temperature 2022-04-25 14:49:00 36.67 Lien [facility] Respiratory rate 2022-04-25 14:49:00 18 /min [facility] Body weight 2022-04-25 14:49:00 88.27 kg [facility] BMI 2022-04-25 14:49:00 33.39 kg/m2 [facility] Systolic blood 2022-04-11 20:50:00 135 mm[Hg] [facility] Diastolic blood 2022-04-11 20:50:00 81 mm[Hg] [facility] Heart rate 2022-04-11 20:50:00 84 /min [facility] Oxygen saturation in 2022-04-11 20:50:00 99 /min [facility] Arterial blood by [facility] Pulse oximetry Branch Body height 2022-04-11 20:45:00 162.6 cm [facility] Body weight 2022-04-11 20:45:00 86.637 kg [facility] BMI 2022-04-11 20:45:00 32.77 kg/m2 [facility] Body temperature 2022-04-11 20:18:00 37.22 Lien [facility] Respiratory rate 2022-04-11 20:18:00 18 /min [facility] Systolic blood 2022-04-11 19:39:00 116 mm[Hg] [facility] Diastolic blood 2022-04-11 19:39:00 75 mm[Hg] [facility] Heart rate 2022-04-11 19:39:00 90 /min [facility] Body temperature 2022-04-11 19:39:00 37.06 Lien [facility] Respiratory rate 2022-04-11 19:39:00 18 /min [facility] Body height 2022-04-11 19:39:00 162.6 cm [facility] Body weight 2022-04-11 19:39:00 88.083 kg [facility] BMI 2022-04-11 19:39:00 33.33 kg/m2 [facility] Oxygen saturation in 2022-04-11 19:39:00 97 /min [facility] Arterial blood by [facility] Pulse oximetry Branch Systolic blood 2022-04-02 14:51:00 114 mm[Hg] [facility] Diastolic blood 2022-04-02 14:51:00 73 mm[Hg] [facility]ive [facility] Heart rate 2022-04-02 14:51:00 82 /min [facility] Body temperature 2022-04-02 14:51:00 36.78 Lien [facility] ersity of [facility] Respiratory rate 2022-04-02 14:51:00 18 /min [facility] ersity of [facility] Body height 2022-04-02 14:51:00 162.6 cm [facility] Body weight 2022-04-02 14:51:00 89.812 kg [facility] BMI 2022-04-02 14:51:00 33.99 kg/m2 [facility] Systolic blood 2022-01-27 13:51:00 128 mm[Hg] Univer [facility]ity [facility] pressure [facility] Diastolic blood 2022-01-27 13:51:00 88 mm[Hg] Unive [facility] Heart rate 2022-01-27 13:51:00 77 /min [facility] Body temperature 2022-01-27 13:51:00 36.78 Lien [facility] 2022-01-27 13:51:00 18 /min [facility] ersity of [facility] Body height 2022-01-27 13:51:00 162.6 cm [facility] Body weight 2022-01-27 13:51:00 86.864 kg [facility] BMI 2022-01-27 13:51:00 32.87 kg/m2 [facility] Procedures Procedure Date / Time Performing Clinician Source Performed CBC WITH DIFF 2022-09-12 06:45:00 Rebekah Vaz [facility] CBC WITH DIFF 2022-09-12 06:45:00 Татьяна [facility] SECTION 2022-09-11 13:54:[address] [facility] 2022-09-11 13:54:00 Rebekah Vaz [facility] CBC WITH DIFF 2022-09-11 12:22:00 Татьяна [facility] CBC WITH DIFF 2022-09-11 12:22:00 Татьяна [facility] CONSENT/REFUSAL FOR 2022-09-11 11:37:43 Doctor Unassigned, [facility] DIAGNOSIS AND TREATMENT [facility] CBC WITH DIFF 2022-09-09 16:15:00 Rebekah Vaz [facility] HB ABO GROUPING 2022-09-09 16:15:00 ТатьянаEmateo Mcmanus [facility] RHO (D) IMMUNE GLOBULIN 2022-09-09 16:15:00 ТатьянаEmateo Mcmanus [facility] RHO (D) IMMUNE GLOBULIN 2022-09-09 16:15:00 Rebekah Vaz [facility] POCT URINALYSIS W/O 2022-09-05 00:00:00 Rebekah Vaz [facility] CBC WITH DIFF 2022-09-04 06:35:00 Rebekah Vaz [facility] ADC OR ROXANN ONLY - RPR 2022-09-04 06:35:00 Rebekah Vaz [facility] HIV 1/2 AG-AB WITH REFLEX 2022-09-04 06:35:00 Rebekah Vaz [facility] HB ABO GROUPING 2022-09-04 06:30:00 Rebekah Vaz [facility] NON-STRESS TEST 2022-08-29 18:16:56 Rebekah Vaz [facility] DSU PRE-OP 2022-08-29 06:01:00 Doctor Unassigned, [facility] DME/SUPPLY JUSTIFICATION 2022-08-20 06:01:00 Doctor Unassigned, [facility] DME/SUPPLY JUSTIFICATION 2022-08-15 06:01:00 Doctor Unassigned, [facility] POCT URINALYSIS W/O 2022-08-14 00:00:00 Rebekah Vaz [facility] URINALYSIS 2022-08-12 02:16:00 Breann Mendez [facility] US BIOPHYSICAL 2022-07-31 01:18:40 Rebekah Vaz [facility] URINALYSIS 2022-07-31 00:37:00 Rebekah Vaz [facility] ADC CLC OR LCC ONLY - WET 2022-07-31 00:37:00 Rebekah Vaz Un [facility] PREP [facility] POCT URINALYSIS W/O 2022-07-31 00:00:00 Rebekah Vaz [facility] CONSENT/REFUSAL FOR 2022-07-30 07:26:21 Doctor Unassigned, [facility] DIAGNOSIS AND TREATMENT [facility] EMERGENCY SERVICES 2022-07-30 06:01:00 Doctor Unassigned, [facility] AGREEMENTS AND [facility] AUTHORIZATIONS POCT MOLECULAR FLU 2022-07-18 17:36:00 Unknown, Attending [facility] POCT MOLECULAR STREP 2022-07-18 17:32:00 Unknown, Attending [facility] POCT URINALYSIS W/O 2022-07-18 00:00:00 Angelo Rodriguez [facility] US HEAD NECK 2022-07-03 16:58:42 Carolyn Amato [facility] URINE CULTURE 2022-07-01 17:12:00 [facility] CHLAMYDIA AMPLIFIED 2022-07-01 17:12:00 Adum, Kassidy Pan [facility] GALV ONLY - VAGINAL 2022-07-01 17:12:00 Adum, Kassidy Pan [facility] PATHOGENS BY NUCLEIC ACID Medica l [facility] TESTING POCT URINALYSIS W/O 2022-07-01 00:00:00 Admarine, Kassidy Pan [facility] STERILIZATION CONSENT 2022-06-20 06:01:00 Doctor Unassigned, [facility] FORM [facility] POCT URINALYSIS W/O 2022-06-20 00:00:00 Rebekah Vaz [facility] SECOND AND THIRD 2022-05-27 19:01:00 Rebekah Vaz [facility] TRIMESTER ULTRASOUND Medical [facility] EXTERNAL PROVIDER RECORDS 2022-05-20 05:01:00 Doctor Evans, [facility] SECOND AND THIRD 2022-05-12 19:14:00 Rebekah Vaz [facility] TRIMESTER ULTRASOUND Medical [facility] URINE CULTURE 2022-05-02 21:31:00 Rebekah Vaz [facility] FLU VACC ([phone]), 6 2022-05-02 19:55:18 Rebekah Vaz [facility] MO-64 YRS, .5ML, IM, QUAD Medica l Branch (FLUCELVAX) POCT URINALYSIS W/O 2022-05-02 00:00:00 Rebekah Vaz [facility] EXTERNAL PROVIDER RECORDS 2022-04-24 05:01:00 Doctor Unassamerica, [facility] MEDICATION CORRESPONDENCE 2022-04-15 05:01:00 Doctor Unajorge alberto, [facility] URINALYSIS 2022-04-11 21:14:00 Rebekah Vaz [facility] ADC CLC OR LCC ONLY - WET 2022-04-11 21:14:00 Rebekah Vaz [facility] CONSENT/REFUSAL FOR 2022-04-11 20:18:44 Doctor Evans, [facility] DIAGNOSIS AND TREATMENT [facility] AUTHORIZATION TO RELEASE 2022-04-02 05:01:00 Doctor Evans, [facility] PHI TO [facility] POCT URINALYSIS W/O 2022-04-02 00:00:00 Rebekah Vaz [facility] AIRCRAFT DESIGN ENGINEER CLINIC ULTRASOUND 2022-02-06 05:01:00 Doctor Evans, [facility] <14 WEEKS US 2022-01-27 15:40:51 Jamila Zaldivar [facility] URINE DRUG (IMMUNOASSAY) 2022-01-27 14:08:00 Jamila Zaldivar [facility] COMPREHENSIVE DRUG Medical Bra [facility] SCREEN URINE CULTURE 2022-01-27 14:08:00 Jamila Zaldivar [facility] GC & CHLAMYDIA AMPLIFIED 2022-01-27 14:08:00 Jamila Zaldivar [facility] TRICHOMONAS AMPLIFIED 2022-01-27 14:08:00 [facility] TEST 2022-01-27 00:00:00 Jamila Zaldivar [facility] POCT URINALYSIS W/O 2022-01-27 00:00:00 Jamila Zaldivar [facility] Encounters Start End Encounter Admission Attending Care Care Encounter Source Date/Time Date/Time Type Type Clinicians Facility Department ID 2022-08-12 Outpatient P [facility] CHRISTOPHER [id number] Univers 00:32:52 ity of [facility] 2022-04-11 Outpatient X [facility] CHRISTOPHER [id number] Univers 19:02:10 ity of [facility] 2021-06-03 Outpatient [facility] [id number] Univers 18:52:17 ity of [facility] 2021-06-03 Outpatient P [facility] CHRISTOPHER [id number] Univers 07:14:53 ity of [facility] 2021-06-03 Outpatient [facility] [id number] Univers 07:14:18 ity of [facility] 2021-06-03 Emergency [facility] [id number] Univers 04:49:13 ity of [facility] 2021-06-02 Emergency [facility] [id number] Univers 09:17:44 ity of [facility] 2022-09-19 2022-09-19 Outpatient R ANGELO RODRIGUEZ [facility] B [id number] Univers 10:45:00 11:07:02 [facility] 2022-09-19 2022-09-19 Routine [facility] 1.2.840.114 [id number] Univers 10:45:00 11:07:02 Angelo TAYLOR 350.1.13.10 i ty of [place] [id number] [facility] 134 Branch 2022-09-19 2022-09-19 Letter [facility] 1.2.840.114 [id number] Univers 00:00:00 00:00:00 (Out) Angelo MARSHALL 350.1.13.10 i ty of [place] [id number] Ma dical [facility] 225 [facility] 2022-09-19 2022-09-19 Telephone [facility] FATOU 1.2.840.11 [id number] Univers 00:00:00 00:00:00 Angelo TAYLOR 350.1.13.10 it y of [facility] 4.2.7.2.686 [facility] [id number] [facility] 134 Branch 2022-09-14 2022-09-14 Nurse Niki Mann 1.2.840.114 [id number] Univers 00:00:00 00:00:00 Triage BAILEY 350.1.13.10 it y of HOSPITAL 4.2.7.2.686 Marty as [id number] [facility] 019 Branch 2022-09-11 2022-09-12 Inpatient U VAZ REBEKAH [facility] CHRISTOPHER [id number] Univers 05:42:00 13:45:00 ity of [facility] 2022-09-11 2022-09-12 Hospital Rebekah Vaz [facility] 1.2.840.114 [id number] Univers 05:42:00 13:45:00 Encounter Yonathan MARSHALL 350.1.13.10 ity of [place] 4.2.7.2.686 [facility] [id number] [facility] 083 Branch 2022-09-11 2022-09-11 Surgery Rebekah Vaz [facility] 1.2.634.664 [id number] Univers 07:50:00 09:49:00 Yonathan MARSHALL 350.1.13.10 i ty of [place] 4.2.7.2.686 [facility] [id number] [facility] 013 Branch 2022-09-11 2022-09-11 Orders Doctor ADRIÁN 1.2.840.114 [id number] Univers 00:00:00 00:00:00 Only Unassigned, BAILEY 350.1.13.10 ity of [facility] 4.2.7.2.686 Marty as [id number] [facility] 009 Branch 2022-09-09 2022-09-09 Machine Ironer David, Mehdi Lab Main [facility] 1.2.8 40.114 [id number] Univers 10:15:00 10:30:00 Visit Татьяна Rebekah Yonathan MARSHALL 350.1.13.10 ity of [facility] 4.2.7.2.686 [facility] [id number] Ma dical [facility] 353 [facility] 2022-09-09 2022-09-09 Outpatient R REBEKAH VAZ [facility] [id number] Univers 10:15:00 10:15:00 ity of [facility] 2022-09-05 2022-09-05 Outpatient R ТАТЬЯНА [facility] [id number] Univers 14:00:00 14:14:35 ity of [facility] 2022-09-05 2022-09-05 Routine Татьяна [facility] 1.2.840.114 [id number] Univers 14:00:00 14:14:35 Cam CLAUDIA 350.1.13.10 i ty of Visit [facility] 4.2.7.2.686 [facility] [id number] [address] 2022-09-03 2022-09-04 Outpatient X VAZ [facility] CHRISTOPHER [id number] Univers 23:22:00 02:50:00 ity [facility] 2022-09-03 2022-09-04 Emergency Татьяна [facility] 1.2.840.114 [id number] Univers 23:22:00 02:50:00 [facility]onathan [facility] 350.1.13.10 i ty of [place] 4.2.7.2.686 [facility] [id number] [facility] 083 [place] 2022-09-03 2022-09-03 Machine Ironer Ultrasound, [facility] 1.2 .840.114 [id number] Univers 09:45:00 10:15:00 Visit Shawn Levy AIRCRAFT DESIGN ENGINEER 350.1.13.10 ity of Severo Mcclellan [facility] 4.2.7.2.686 [place] MATERNAL [id number] Med ical & CHILD [address] [place] [address] 2022-09-03 2022-09-03 Outpatient P SEVERO MCCLELLAN [facility] [id number] Univers 09:45:00 09:45:00 SEVERO MCCLELLAN [facility] 2022-09-03 2022-09-03 Nurse ADRIÁN Wright 1.2.840.114 [id number] Univers 00:00:00 00:00:00 Triage Manuel Álvarez BAILEY 350.1.13.10 ity of HOSPITAL 4.2.7.2.686 Marty as [id number] [address] 2022-08-29 2022-08-29 Outpatient R REBEKAH VAZ [facility] [id number] Univers 11:00:00 12:14:43 ity of [facility] 2022-08-29 2022-08-29 Routine Татьяна [facility] 1.2.840.114 [id number] Univers 11:00:00 12:14:43 Cam CLAUDIA 350.1.13.10 i ty of Visit [place] [id number] [address] 2022-08-29 2022-08-29 Orders Doctor ADRIÁN 1.2.840.114 [id number] Univers 00:00:00 00:00:00 Only Unassigned, [place]AI[place] 350.1.13.10 ity of [facility] 4.2.7.2.686 Marty as [id number] [address] 2022-08-27 2022-08-27 Telephone [facility] 1.2.840.114 10 [id number] Univers 00:00:00 00:00:00 Cam ROLANDO 350.1.13.10 i ty of [place] [id number] [address] 2022-08-27 2022-08-27 Telephone Rebekah Vaz [facility] 1.2.840.114 [id number] Univers 00:00:00 00:00:00 Cam ROLANDO 350.1.13.10 i ty of [place]2.[place] [id number] [address] 2022-08-23 2022-08-23 Nurse ADRIÁN Norton 1.2.840.114 [id number] Univers 00:00:00 00:00:00 Triage Valarie BAILEY 350.1.13.10 ity of HOSPITAL 4.2.7.2.686 [place] as [id number] [address] 2022-08-22 2022-08-22 Letter ADRIÁN Wills 1.2.840.114 [id number] Univers 00:00:00 00:00:00 (Out) Trinity AVALOS 350.1.13.10 it y of HOSPITAL 4.2.7.2.686 Marty as [id number] [facility] 019 Ismay 2022-08-21 2022-08-21 Outpatient R LELA [facility] [id number] Univers 18:40:00 19:09:45 RANIA ity of [facility] 2022-08-21 2022-08-21 Urgent Cecelia Vogel [facility] 1.2.840.114 [id number] Univers 18:40:00 19:09:45 Care Unknown, [facility] 350.1.13.10 ity of [place] 4.2.7.2.686 Marty as EMMETT?BLEA [id number] [address] MEDICAL OFFICE [facility] 2022-08-21 2022-08-21 Letter Provider, [facility] 1.2.230.558 [id number] Univers 00:00:00 00:00:00 (Out) [facility] 350.1.13.10 it y of Urgent Care [place] 4.2.7.2.686 [place] EMMETT?BLEA [id number] [address] MEDICAL OFFICE [facility] 2022-08-20 2022-08-20 Telephone Vaz Rebekah [facility] 1.2.840.114 [id number] Univers 00:00:00 00:00:00 Yonathan TAYLOR 350.1.13.10 it y of [place] [id number] [facility] 134 [place] 2022-08-20 2022-08-20 Orders Doctor ADRIÁN 1.2.840.114 [id number] Univers 00:00:00 00:00:00 Only Unassigned, BAILEY 350.1.13.10 ity of [place] 4.2.7.2.686 Marty as [id number] [facility] 009 Is[place] 2022-08-15 2022-08-15 Outpatient R DEE [facility] [id number] Univers 11:00:00 11:00:00 ROD ity of [facility] 2022-08-15 2022-08-15 Orders Doctor ADRIÁN 1.2.840.114 [id number] Univers 00:00:00 00:00:00 Only Unassigned, BAILEY 350.1.13.10 ity of [facility] 4.2.7.2.686 Marty as [id number] [facility] 009 [place] 2022-08-14 2022-08-14 Outpatient R REBEKAH VAZ [facility] [id number] Univers 09:45:00 10:43:25 ity of [facility] 2022-08-14 2022-08-14 Routine Rebekah Vaz [facility] 1.2.160.114 [id number] Univers 09:45:00 10:43:25 Cam [place] 350.1.13.10 ity of Visit [place] [id number] Ma dical NAL [address] [place] [address] 2022-08-11 2022-08-12 Outpatient P AMNA [facility] CHRISTOPHER [id number] Univers 18:26:00 00:00:00 SUSANNA ity [facility] 2022-08-11 2022-08-12 Hospital Shawn Levy 1.2.840.1 [id number] Univers 18:26:00 00:00:00 Encounter Susanna Woo Ikuvbotasiajeanette PERRYY 350. 1.13.10 ity [facility] 4.2.7.2.686 [place] as [id number] [facility] 140 [place] 2022-08-11 2022-08-11 Telephone Pcp, [facility] 1.2.585.887 [id number] Univers 00:00:00 00:00:00 Patient AIRCRAFT DESIGN ENGINEER 350.1.13.10 it y of Does Not [place] MAT[place]NAL [id number] Med ical & CHILD [address] [place] [address] 2022-08-06 2022-08-06 Machine Ironer Ultrasound, Inocenciodieter [facility] 1.2 .840.114 [id number] Univers 09:30:00 10:00:00 Visit Dominic, Shawn AIRCRAFT DESIGN ENGINEER 350.1.13.10 ity of REGIONAL 4.2.7.2.686 Marty as MATERNAL [id number] Med ical & CHILD [address] [place] [address] 2022-08-06 2022-08-06 Outpatient P DOMINIC [facility] [id number] Univers 09:30:00 09:30:00 SHAWN ity of [facility] 2022-07-31 2022-07-31 Machine Ironer 2, Adc Lab [facility] 1.2.840.114 [id number] Univers 09:45:00 10:00:00 Visit Rebekah Vaz 350.1.13.10 ity of [place] [id number] Ma dical NAL 353 [facility] 2022-07-31 2022-07-31 Outpatient R REBEKAH VAZ [facility] [id number] Univers 09:00:00 09:29:39 ity of [facility] 2022-07-31 2022-07-31 Routine Татьяна [facility] [id number] Univers 09:00:00 09:29:39 [facility] [id number] [place]y of [id number] [id number] Ma dical NAL 134 [facility] 2022-07-30 2022-07-30 Outpatient P REBEKAH VAZ [facility] CHRISTOPHER [id number] Univers 16:50:00 19:59:00 ity of [facility] 2022-07-30 2022-07-30 [facility] [id number] Univers 16:50:00 19:59:00 Encounter Yonathan MARSHALL [id number] [id number] [place] [id number] [facility] [address] 2022-07-30 2022-07-30 Emergency [facility] ERT [id number] Univers 01:40:00 02:13:00 KASHIF it y of [facility] 2022-07-30 2022-07-30 Emergency [place], [facility] 1.2.106.210 [id number] Univers 01:40:00 02:13:00 Chanodaysigene MARSHALL 350.1.13.10 ity of [facility] 4.2.7.2.[place] [id number] [address] 2022-07-30 2022-07-30 Telephone Rebekah Vaz [facility] 1.2.840.114 [id number] Univers 00:00:00 00:00:00 Yonathan MARSHALL 350.1.13.10 i ty of [place] [id number] Ma diclala [address] 2022-07-24 2022-07-24 Telephone Rebekah Vaz [facility] 1.2.840.114 [id number] Univers 00:00:00 00:00:00 Yonathan TAYLOR 350.1.13.10 it y of [place] [id number] [address] 2022-07-22 2022-07-22 Telephone [facility] 1.2.840.11 4 [id number] Univers 00:00:00 00:00:00 Angelo TAYLOR 350.1.13.10 it y of [place] [id number] [address] 2022-07-18 2022-07-18 Urgent Vernon Gonzalez [facility] 1.2.840.114 [id number] Univers 11:00:00 11:20:00 Care Unknown, Attending HEALTH 350.1.13.10 ity of [facility] 4.2.7.2.686 Marty as EMMETT?BLEA [phone] Ma dical KNEY [address] MEDICAL OFFICE BUILDING 2022-07-18 2022-07-18 Routine [facility] 1.2.840.114 [id number] Univers 10:00:00 10:00:00 Angelo TAYLOR 350.1.13.10 i ty of Visit [place].2.[place] [id number] [address] 2022-07-18 2022-07-18 Outpatient R ANGELO RODRIGUEZ [facility] B [id number] Univers 10:00:00 09:09:37 BENSONOLGABRENDAANGELO SINGLETON [facility] 2022-07-18 2022-07-18 Akil Vernon Gonzalez [facility] 1.2.840.114 [id number] Univers 00:00:00 00:00:00 (Out) [facility] 350.1.13.10 it y [facility] 4.2.7.2.686 Marty as EMMETT?BLEA [id number] Ma elroylala [address] MEDICAL OFFICE BUILDING 2022-07-11 2022-07-11 Outpatient R DEE [facility] [id number] Univers 10:00:00 10:00:00 ROD [facility] 2022-07-09 2022-07-09 Machine Ironer Ultrasound, [facility] 1.2 .840.114 [id number] Univers 09:30:00 10:00:00 Visit Shawn Levy AIRCRAFT DESIGN ENGINEER 350.1.13.10 ity [facility] 4.2.7.2.686 Marty as MATERNAL [id number] [facility] ical & CHILD [address] [place] [address] 2022-07-09 2022-07-09 Outpatient P DOMINIC [facility] [id number] Univers 09:30:00 09:30:00 SHAWN [facility] 2022-07-03 2022-07-03 Outpatient R LM [facility] [id number] Univers 10:10:36 23:59:00 [facility] 2022-07-03 2022-07-03 [facility] 1.2.840.114 [id number] Univers 10:10:36 23:59:00 Encounter Carolyn MARSHALL 350.1.13.10 ity [facility] 4.2.7.2.686 [facility] [id number] [address] 2022-07-01 2022-07-01 Outpatient R MIGUEL ANGEL [facility] [id number] Univers 10:15:00 11:12:59 [facility]IDY [facility] 2022-07-01 2022-07-01 Routine Adum, [facility] 1.2.418.874 [id number] Univers 10:15:00 11:12:59 Kassidy Maxim TAYLOR 350.1.13.10 ity of Visit WOMEN'[place] 4.2.7.2.[place] [id number] [facility] [address] 2022-07-01 2022-07-01 Telephone Rebekah Vaz [facility] 1.2.840.114 [id number] Univers 00:00:00 00:00:00 Yonathan MARSHALL 350.1.13.10 i ty of [place] 4.2.7.2.686 [place] [id number] Ma dical NAL 134 [facility] 2022-06-30 2022-06-30 Outpatient R MAICO SAINI [facility] [id number] Univers 13:45:00 14:24:52 ity of [facility] 2022-06-30 2022-06-30 Telemedici Makayla Lechuga [facility] 1.2.8 40.114 [id number] Univers 13:45:00 14:24:52 ne Visit Maico Saini AIRCRAFT DESIGN ENGINEER 350.1.13.10 ity of [facility] 4.2.7.2.686 Marty as MATERNAL [id number] Med ical & CHILD [address] [place] [address] 2022-06-30 2022-06-30 Machine Ironer Mehdi Hernandez Lab Main [facility] 1.2.8 40.114 [id number] Univers 09:45:00 10:00:00 Visit VazRebekah Yonathan MARSHALL 350.1.13.10 ity of [place] 4.2.7.2.[place] [id number] Ma dical NAL 353 [facility] 2022-06-30 2022-06-30 Nurse ADRIÁN Schultz 1.2.840.114 [id number] Univers 00:00:00 00:00:00 Triage Jennifer AVALOS 350.1.13.10 it y of [facility] 4.2.7.2.686 Marty as [id number] [address] 2022-06-25 2022-06-25 TYREL Ledesma 1.2.147.377 [id number] Univers 00:00:00 00:00:00 Management Carolyn Y HEALTH 350.1.13.10 ity of [facility] 4.2.7.2.686 [place] [id number] [facility] [address] 2022-06-23 2022-06-24 Outpatient R FANTASMA [facility] [id number] Univers 13:00:00 10:54:16 YENNY it y of S, OROPEZA [facility] 2022-06-23 2022-06-24 Telemedici Faculty, Poncho [facility] 1.2.840.114 [id number] Univers 13:00:00 10:54:16 ne Visit Fantasma WootenkimmieJohnna hdz AIRCRAFT DESIGN ENGINEER 350.1 .13.10 ity of [facility] 4.2.7.2.686 Marty as MATERNAL [id number] Med ical & CHILD [address] [place] [address] 2022-06-20 2022-06-20 Outpatient R REBEKAH VAZ [facility] [id number] Univers 09:15:00 10:20:21 ity of [facility] 2022-06-20 2022-06-20 Routine Rebekah Vaz [facility] 1.2.840.114 [id number] Univers 09:15:00 10:20:21 Cam CLAUDIA 350.1.13.10 i ty of Visit W[place] 4.2.[place].2.[place] [id number] [facility] [address] 2022-06-20 2022-06-20 Orders Doctor ADRIÁN 1.2.840.114 [id number] Univers 00:00:00 00:00:00 Only Unassigned, BAILEY 350.1.13.10 ity of [place] [facility] 4.2.7.2.686 Marty as [id number] [facility] [address] 2022-06-19 2022-06-19 Telephone Rebekah Vaz [facility] 1.2.840.114 [id number] Univers 00:00:00 00:00:00 Yonathan MARSHALL 350.1.13.10 i ty of [place] 4.2.7.2.686 [place] [id number] Ma dical [facility] 134 [facility] 2022-06-19 2022-06-19 Telephone Rebekah Vaz [facility] 1.2.840.114 [id number] Univers 00:00:00 00:00:00 Yonathan TAYLOR 350.1.13.10 it y of [place].2.[place] [id number] [address] 2022-06-11 2022-06-11 Outpatient P [facility] [id number] Univers 09:30:00 09:30:00 ity [facility] 2022-05-30 2022-05-30 Outpatient R REBEKAH VAZ [facility] [id number] Univers 09:00:00 09:00:00 ity [facility] 2022-05-27 2022-05-27 Machine Ironer Ultrasound, Mehdi [facility] 1.2 .840.114 [id number] Univers 13:45:00 14:30:51 Visit Rebekah Vaz ROLANDO 350.1.13.10 ity of [facility] 4.2.7.2. 686 [facility] [id number] Ma dical [address] 2022-05-27 2022-05-27 Outpatient P FANTASMA [facility] [id number] Univers 13:45:00 13:45:00 YENNY it y of Kris JOHNNA [facility] 2022-05-26 2022-05-26 Outpatient R RONNI [facility] [id number] Univers 11:00:00 17:02:24 JULIAN anglin [facility] 2022-05-26 2022-05-26 Telemedici Faculty, Poncho Rmchp [facility] 1.2.840.114 [id number] Univers 11:00:00 17:02:24 ne Visit Julian Elena AIRCRAFT DESIGN ENGINEER 350.1.13. 10 ity of [facility] 4.2.7.2.686 Marty as MATERNAL [id number] Med ical & CHILD [address] [place] [address] 2022-05-26 2022-05-26 Telephone Dee [facility] 1.2.840.114 [id number] Univers 00:00:00 00:00:00 Rod HEALTH 350.1.13.10 it y of [place] 4.2.7.2.686 Marty as EMMETT?BLEA [id number] Ma marcela MYERS [address] [place] [address] MEDICAL OFFICE BUILDING 2022-05-23 2022-05-23 Outpatient R REBEKAH VAZ [facility] [id number] Univers 09:15:00 09:17:22 ity of [facility] 2022-05-23 2022-05-23 Routine Rebekah Vaz [facility] 1.2.840.114 97 [id number] Univers 09:15:00 09:17:22 Yonathan TAYLOR 350.1.13.10 i ty of Visit [place].2.[place] [id number] [address] 2022-05-23 2022-05-23 Letter Rebekah Vaz [facility] 1.2.840.114 97 [id number] Univers 00:00:00 00:00:00 (Out) Yonathan TAYLOR 350.1.13.10 it y of [place] 4.2.7.2.[place] [id number] [address] 2022-05-21 2022-05-21 Outpatient R ANGELO RODRIGUEZ [facility] B [id number] Univers 15:00:00 15:39:34 ANGELO RODRIGUEZ [facility] 2022-05-21 2022-05-21 Routine [facility] 1.2.840.114 [id number] Univers 15:00:00 15:39:34 Angelo TAYLOR 350.1.13.10 i ty of Visit [place] 4.2.7.2.[place] [id number] [address] 2022-05-21 2022-05-21 Letter [facility] 1.2.840.114 [id number] Univers 00:00:00 00:00:00 (Out) Angelo TAYLOR 350.1.13.10 it y of [place] 4.2.7.2.[place] [id number] [address] 2022-05-20 2022-05-20 Orders Doctor SAMPSON 1.2.840.114 [id number] Univers 00:00:00 00:00:00 Only Unassigned, BAILEY 350.1.13.10 ity of [facility] 4.2.7.2.686 Marty as [id number] [facility] [address] 2022-05-19 2022-05-19 Telephone Rebekah Vaz [facility] 1.2.840.114 [id number] Univers 00:00:00 00:00:00 Yonathan TAYLOR 350.1.13.10 it y of [place] [id number] [facility] [address] 2022-05-16 2022-05-16 Machine Ironer Lab, Ang - Db [facility] 1.2.840.1 14 [id number] Univers 11:15:00 11:15:00 Visit Rod Price Jaylin Dindong 350.1.13.10 ity of [place] 4.2.7.2.686 Marty as EMMETT?BLEA [id number] Ma marcela ALCANTARA [address] MEDICAL OFFICE [facility] 2022-05-16 2022-05-16 [facility] [id number] Univers 10:30:00 10:30:00 ROD ity of [facility] 2022-05-16 2022-05-16 Office [facility] 1.2.634.077 [id number] Univers 10:30:00 10:30:00 Visit Rod Mosqueda Dindong 350.1.13.10 it y of [place] 4.2.7.2.686 Marty as EMMETT?BLEA [id number] Ma marcela [facility] [address] MEDICAL OFFICE [facility] 2022-05-16 2022-05-16 Nurse Nurse, Lkj [facility] 1.2.840.114 [id number] Univers 09:00:00 09:15:00 Visit Vaz Rebekah TAYLOR 350.1.13.10 ity of [place] 4.2.[place].2.[place] [id number] [facility] [address] 2022-05-16 2022-05-16 Letter [facility] 1.2.947.079 [id number] Univers 00:00:00 00:00:00 (Out) Rod Mosqueda HEALTH 350.1.13.10 it y of [place] 4.2.7.2.686 Marty as EMMETT?BLEA [id number] Ma marcela [facility] [address] MEDICAL OFFICE [facility] 2022-05-12 2022-05-12 Machine Ironer 1, [facility] Us Room UNIVERSIT 1 .2.840.114 [id number] Univers 13:30:00 14:29:00 Visit Severo Mcclellan [place] HEALTH 350.1.13.10 ity of [facility] 4.2.7.2.686 [place] [id number] [facility] [address] 2022-05-12 2022-05-12 Outpatient P SEVERO MCCLELLAN [facility] [id number] Univers 13:30:00 13:30:00 [facility] 2022-05-10 2022-05-10 Nurse ADRIÁN Huber 1.2.840.114 [id number] Univers 00:00:00 00:00:00 Triage Christine BAILEY 350.1.13.10 it y of HOSPITAL 4.2.7.2.686 Marty as [id number] [facility] [address] 2022-05-09 2022-05-09 Outpatient R REBEKAH VAZ [facility] [id number] Univers 09:00:00 09:15:22 ity of [facility] 2022-05-09 2022-05-09 Nurse Nurse, Lkj [facility] 1.2.840.114 [id number] Univers 09:00:00 09:15:22 Visit Rebekah Vaz 350.1.13.10 ity of [place] [id number] [facility] [address] 2022-05-09 2022-05-09 Telephone Dee [facility] 1.2.840.114 [id number] Univers 00:00:00 00:00:00 Rod Mosqueda HEALTH 350.1.13.10 it y of [place] 4.2.7.2.686 Marty as EMMETT?BLEA [id number] [facility] [address] MEDICAL OFFICE [facility] 2022-05-05 2022-05-05 Machine Ironer David, Mehdi Lab Main [facility] 1.2.8 40.114 [id number] Univers 13:45:00 14:00:00 Visit Aydin Ferrera ROLANDO 350.1.13.10 ity of Rebekah Vaz 4.2.7.2.686 [place] PROFESSIO [id number] Ma dical [facility] 353 [facility] 2022-05-05 2022-05-05 Outpatient R REBEKAH VAZ [facility] [id number] Univers 13:45:00 13:45:00 ity of [facility] 2022-05-05 2022-05-05 Telephone Татьяна [facility] 1.2.840.114 [id number] Univers 00:00:00 00:00:00 Yonathan MARSHALL 350.1.13.10 i ty of [place].2.7.2.686 [place] [id number] [facility] 134 [facility] 2022-05-02 2022-05-02 Outpatient R REBEKAH VAZ [facility] [id number] Univers 14:30:00 16:22:52 ity of [facility] 2022-05-02 2022-05-02 Routine Rebekah Vaz [facility] 1.2.840.114 [id number] Univers 14:30:00 16:22:52 Cam CLAUDIA 350.1.13.10 i ty of Visit [place] 4.2.[place].2.[place] [id number] [address] 2022-04-28 2022-04-28 Outpatient P RONNI [facility] [id number] Univers 14:15:00 15:28:24 JULIAN itcorona [facility] 2022-04-28 2022-04-28 Machine Ironer 2, [facility] Room UNIVERSIT 1 .2.840.114 [id number] Univers 14:15:00 14:45:00 Visit Julian Elena Y HEALTH 350.1.13. 10 ity of [facility] 4.2.7.2.686 [place] [id number] [address] 2022-04-28 2022-04-28 Telephone Jamila Zaldivar [facility] 1.2.840.11 [id number] Univers 00:00:00 00:00:00 CLAUDIA 350.1.13.10 it [place] [id number] [address] 2022-04-25 2022-04-25 Nurse Nurse, [facility] 1.2.840.114 [id number] Univers 10:00:00 10:00:00 Visit Rebekah Vaz 350.1.13.10 ity of [facility] 4.2.7.2.[place] [id number] [address] 2022-04-25 2022-04-25 Outpatient R REBEKAH VAZ [facility] [id number] Univers 10:00:00 09:46:21 ity of [facility] 2022-04-24 2022-04-24 Orders Doctor ADRIÁN 1.2.840.114 [id number] Univers 00:00:00 00:00:00 Only Unassigned, BAILEY 350.1.13.10 ity of [place] [facility] 4.2.7.2.686 Marty as [id number] [address] 2022-04-22 2022-04-22 Telephone Rebekah Vaz [facility] 1.2.840.114 [id number] Univers 00:00:00 00:00:00 Yonathan MARSHALL 350.1.13.10 i ty of [facility] 4.2.7.2.[place] [id number] Ma dic[address] 2022-04-18 2022-04-18 Telephone Rebekah Vaz [facility] 1.2.840.114 [id number] Univers 00:00:00 00:00:00 Yonathan MARSHALL 350.1.13.10 i ty of [facility] 4.2.7.2.686 [place] [id number] Ma dic[address] 2022-04-15 2022-04-15 Orders Doctor ADRIÁN 1.2.840.114 [id number] Univers 00:00:00 00:00:00 Only Unassigned, BAILEY 350.1.13.10 ity of [place] [facility] 4.2.7.2.686 Marty as [id number] [facility] [address] 2022-04-14 2022-04-14 Patient Jaxon [facility] 1.2.840.114 [id number] Univers 00:00:00 00:00:00 Secure Msg De La Paz ROLANDO 350.1.13.10 ity of [place] 4.2.7.2.[place] [id number] Ma dical NAL [address] BUILDING 2022-04-13 2022-04-13 Case REID Hoskins 1.2.758.235 [id number] Univers 00:00:00 00:00:00 Management Conchita PEDIATRIC 350.1.13.10 ity of [place].2.7.2.686 [place] AD[place] [id number] [facility] PRIMARY [address] CARE CLINIC 2022-04-11 2022-04-11 Outpatient X REBEKAH VAZ [facility] CHRISTOPHER [id number] Univers 15:23:00 19:00:00 ity of [facility] 2022-04-11 2022-04-11 Emergency Wicho Boateng [facility] 1.2.840.1 14 [id number] Univers 15:23:00 19:00:00 Jamila Zaldivar 350.1.13.10 ity of Rebekah Vaz 4.2.7.2.686 [facility] [id number] [facility] [address] 2022-04-11 2022-04-11 Nurse Nurse, Poncho [facility] 1.2.840.114 [id number] Univers 14:45:00 15:05:00 Visit Cecelia Vogel 350.1.13.10 ity of [facility] 4.2.7.2.686 Marty as EMMETT?BLEA [id number] Ma dical EY [address] MEDICAL OFFICE BUILDING 2022-04-11 2022-04-11 Outpatient R LELA [facility] [id number] Univers 14:45:00 15:02:41 CECELIA anglin [facility] 2022-04-11 2022-04-11 Outpatient R LELA [facility] [id number] Univers 14:20:00 14:20:00 RANIA [facility] 2022-04-10 2022-04-10 Outpatient R [facility] [id number] Univers 08:45:00 08:45:00 ity of [facility] 2022-04-02 2022-04-02 Outpatient R REBEKAH VAZ [facility] [id number] Univers 10:00:00 10:44:45 ity of [facility] 2022-04-02 2022-04-02 Routine Vaz [facility] 1.2.585.232 [id number] Univers 10:00:00 10:44:45 Cam ROLANDO 350.1.13.10 ity of Visit [place]2.[place].2.[place] [id number] [facility] 134 [facility] 2022-04-02 2022-04-02 Outpatient R REBEKAH VAZ [facility] [id number] Univers 10:00:00 10:44:45 ity of [facility] 2022-04-02 2022-04-02 Telephone Татьяна [facility] 1.2.840.114 [id number] Univers 00:00:00 00:00:00 Cam ROLANDO 350.1.13.10 i ty of [place] 4.2.7.2.[place] [id number] [facility] 134 [facility] 2022-04-02 2022-04-02 Orders Doctor ADRIÁN 1.2.840.114 [id number] Univers 00:00:00 00:00:00 Only Unassigned, BAILEY 350.1.13.10 ity of [place] [facility] 4.2.7.2.686 Marty as [id number] [address] 2022-03-30 2022-03-30 Shirley Denson [facility] 1.2.840.114 [id number] Univers 00:00:00 00:00:00 Linda HEALTH 350.1.13.10 it y of [place] 4.2.7.2.686 Marty as EMMETT?BLEA [id number] [facility] [address] MEDICAL OFFICE BUILDING 2022-03-24 2022-03-24 ANNETTE Haley 1.2.840.114 [id number] Univers 00:00:00 00:00:00 Management Rosa OLIVAS 350.1.13.10 ity of [place]2.7.2.[place] [id number] [place] [address] 2022-03-21 2022-03-21 Letter ADRIÁN Josue 1.2.840.114 [id number] Univers 00:00:00 00:00:00 (Out) Rhonda AVALOS 350.1.13.10 it y of [facility] 4.2.7.2.686 Marty as [id number] [address] 2022-03-20 2022-03-20 Outpatient R LELA [facility] [id number] Univers 17:40:00 18:04:01 [facility] 2022-03-20 2022-03-20 Urgent [facility] 1.2.840.114 [id number] Univers 17:40:00 18:00:00 Care Rania [facility] 350.1.13.10 it y of [place] 4.2.7.2.686 Marty as EMMETT?BLEA [id number] [address] MEDICAL OFFICE [facility] 2022-03-20 2022-03-20 Outpatient R LELA [facility] [id number] Univers 17:15:00 17:15:00 [facility] 2022-03-20 2022-03-20 Letter Gracy, [facility] 1.2.215.482 [id number] Univers 00:00:00 00:00:00 (Out) [facility] HEALTH 350.1.13.10 it y of Urgent Care [place] 4.2.7.2.686 [place] EMMETT?BLEA [id number] [address] MEDICAL OFFICE BUILDING 2022-03-18 2022-03-18 Outpatient JAMILA ALEGRIA [facility] [id number] Univers 13:00:00 13:00:00 ity [facility] 2022-03-07 2022-03-07 Outpatient R JAMILA ZALDIVAR [facility] [id number] Univers 08:30:00 08:30:00 ity [facility] 2022-03-03 2022-03-03 Emergency X RIDKALPANA, [facility] ERT [id number] Univers 16:18:00 16:40:00 KASHIF it y [facility] 2022-03-03 2022-03-03 Emergency [facility] 1.2.476.694 [id number] Univers 16:18:00 16:40:00 Kashif MARSHALL 350.1.13.10 ity [facility] 4.2.7.2.686 [facility] [id number] [facility] [address] 2022-03-03 2022-03-03 Outpatient R DIANE [facility] [id number] Univers 09:45:00 09:45:00 SONI ity [facility] 2022-02-27 2022-02-27 Outpatient R ZEN JAMILA [facility] [id number] Univers 13:45:00 14:33:07 ity [facility] 2022-02-27 2022-02-27 Routine Zen Jamila [facility] 1.2.840.114 [id number] Univers 13:45:00 14:33:07 CLAUDIA 350.1.13.10 i ty of Visit [facility] 4.2.7.2.686 [facility] [id number] [facility] [address] 2022-02-27 2022-02-27 Outpatient R ZENNATIVIDADN [facility] [id number] Univers 13:45:00 13:45:00 ity [facility] 2022-02-11 2022-02-11 Outpatient R KOBE [facility] [id number] Univers 14:00:00 14:00:00 ABRAHAMONG ity [facility] 2022-02-11 2022-02-11 Outpatient R KOBE [facility] [id number] Univers 14:00:00 14:00:00 WENTONG ity [facility] 2022-02-08 2022-02-08 ADRIÁN Murray 1.2.840.114 [id number] Univers 00:00:00 00:00:00 (Out) Rhonda BAILEY 350.1.13.10 it y of [facility] 4.2.7.2.686 [facility] [id number] [facility] [address] 2022-02-07 2022-02-07 Urgent Jarett [facility] 1.2.840.114 [id number] Univers 17:40:00 18:00:00 Care Linda [facility] 350.1.13.10 it y [facility] 4.2.7.2.686 Marty as EMMETT?BLEA [phone] Ma marcela [address] MEDICAL OFFICE BUILDING 2022-02-07 2022-02-07 Outpatient R JARETT [facility] [id number] Univers 17:40:00 17:49:36 LINDA ity of [facility] 2022-02-07 2022-02-07 Outpatient R [facility] [id number] Univers 09:00:00 09:00:00 ity [facility] 2022-02-06 2022-02-06 Outpatient R JAMILA ZALDIVAR [facility] [id number] Univers 13:00:00 13:54:43 ity [facility] 2022-02-06 2022-02-06 Routine Jamila Zaldivar [facility] 1.2.840.114 [id number] Univers 13:00:00 13:54:43 CLAUDIA 350.1.13.10 i ty of [place] [facility] [facility] [id number] [facility] [address] 2022-02-06 2022-02-06 Outpatient R JAMILA ZALDIVAR [facility] [id number] Univers 13:00:00 13:00:00 ity [facility] 2022-02-06 2022-02-06 Orders Doctor SAMPSON 1.2.840.114 [id number] Univers 00:00:00 00:00:00 Only Unassigned, BAILEY 350.1.13.10 ity of [place] [facility] 4.2.7.2.686 Marty as [id number] [facility] [address] 2022-01-31 2022-01-31 Outpatient R JAMILA ZALDIVAR [facility] [id number] Univers 13:15:00 14:15:21 ity [facility] 2022-01-31 2022-01-31 Routine Jamila Zaldivar [facility] 1.2.840.114 [id number] Univers 13:15:00 14:15:21 ROLANDO 350.1.13.10 ity of Visit [place] [facility] [id number] [address] 2022-01-31 2022-01-31 Outpatient R JAMILA ZALDIAVR [facility] [id number] Univers 13:30:00 13:30:00 ity of [facility] 2022-01-29 2022-01-29 [facility], [facility] 1.2.840.1 [id number] Univers 14:30:00 14:58:49 Visit Jamila Zaldivar [facility] 350.1.13.10 ity of [place] 4.2.7.2.686 Marty as EMMETT?BLEA [id number] [address] 2022-01-29 2022-01-29 Machine Ironer Lab, [facility] 1.2.840.1 14 [id number] Univers 14:30:00 14:45:00 Visit Zen Jamila [facility] 350.1.13.10 ity of [place] 4.2.7.2.686 Marty as EMMETT?BLEA [id number] [address] 2022-01-29 2022-01-29 Outpatient R JAMILA ZALDIVAR [facility] [id number] Univers 14:30:00 14:30:00 ity of [facility] 2022-01-29 2022-01-29 Outpatient R JAMILA ZALDIVAR [facility] [id number] Univers 10:30:00 10:30:00 ity of [facility] 2022-01-29 2022-01-29 Telephone Zen Jamila [facility] 1.2.840.11 [id number] Univers 00:00:00 00:00:00 CLAUDIA 350.1.13.10 it y of PEDIATRIC 4.[address].7.2[address] [facility] [id number] [address] 2022-01-29 2022-01-29 Patient Jaxon [facility] 1.2.840.114 [id number] Univers 00:00:00 00:00:00 Secure Msg Ana Cristina [place] 350.1.13.10 ity of [place] [id number] Ma marcela WALSH 134 [facility] 2022-01-29 2022-01-29 Telephone Jamila Zaldivar LAINEZ 1.2.840.11 4 [id number] Univers 00:00:00 00:00:00 CLAUDIA 350.1.13.10 it y of [place] [id number] [address] 2022-01-27 2022-01-27 Machine Ironer Lab, Ang - Db [facility] 1.2.840.1 14 [id number] Univers 10:45:00 10:45:00 Visit Jamila Zaldivar 350.1.13.10 ity [facility] 4.2.7.2.686 Marty as EMMETT?BLEA [phone] Ma marcela ALCANTARA [address] [facility] OFFICE [facility] 2022-01-27 2022-01-27 Urgent Amanda Chinchilla [facility] 1.2.840. 114 [id number] Univers 10:20:00 10:40:00 Care [facility] 350.1.13.10 ity of [place] 4.2.7.2.686 Marty as EMMETT?BLEA [id number] Ma marcela MYERS [address] [facility] OFFICE [facility] 2022-01-27 2022-01-27 Outpatient R JAMILA ZALDIVAR [facility] [id number] Univers 08:30:00 09:36:17 ity of [facility] 2022-01-27 2022-01-27 Initial Jamila Zaldivar [facility] 1.2.840.114 [id number] Univers 08:30:00 09:36:17 CLAUDIA 350.1.13.10 i ty of Visit [place] [id number] [address] 2022-01-27 2022-01-27 Letter Jamila Zaldivar WARREN 1.2.840.114 [id number] Univers 00:00:00 00:00:00 (Out) CLAUDIA 350.1.13.10 it y of [place] [id number] [facility] [address] 2022-01-27 2022-01-27 Telephone Jamila Zaldivar [facility] FATOU 1.2.840.11 4 [id number] Univers 00:00:00 00:00:00 CLAUDIA 350.1.13.10 it y of [place] 4.2.7.2.686 [facility] [id number] [address] 2022-01-27 2022-01-27 Orders Doctor ADRIÁN 1.2.840.114 [id number] Univers 00:00:00 00:00:00 Only Unassigned, BAILEY 350.1.13.10 ity of [place] [facility] 4.2.7.2.686 Marty as [id number] [address] 2022-01-08 2022-01-08 Refill [facility] 1.2.840.114 [id number] Univers 00:00:00 00:00:00 Rania HEALTH 350.1.13.10 it y of [place] 4.2.7.2.686 Marty as EMMETT?BLEA [id number] [address] MEDICAL OFFICE BUILDING 2021-12-11 2021-12-11 Telephone ADRIÁN Josue 1.2.578.930 [id number] Univers 00:00:00 00:00:00 Rhonda AVALOS 350.1.13.10 it y of HOSPITAL 4.2.7.2.686 Marty as [id number] [address] 2021-12-10 2021-12-10 Outpatient R LELA, [facility] [id number] Univers 15:40:00 16:07:31 RANIA ity of [facility] 2021-12-10 2021-12-10 Urgent EbCecelia austin [facility] 1.2.840.114 [id number] Univers 15:40:00 16:07:31 Care Cassius, Nelson HEALTH 350.1.13.10 ity of [facility] 4.2.7.2.686 Marty as EMMETT?BLEA [id number] [address] MEDICAL OFFICE BUILDING 2021-12-10 2021-12-10 Outpatient R EBRARODDY [facility] [id number] Univers 15:40:00 16:07:31 CECELIA [facility] 2021-10-28 2021-10-28 Outpatient Ruben DENSON [facility] [id number] Univers 17:20:00 17:53:40 LINDA [facility] 2021-10-28 2021-10-28 Jimbo [facility] 1.2.840.114 [id number] Univers 17:20:00 17:53:40 Care Linda HEALTH 350.1.13.10 it y of [facility] 4.2.7.2.686 Marty as EMMETT?BLEA [id number] [address] OFFICE [facility] 2021-10-21 2021-10-21 Shirley [facility] 1.2.229.231 [id number] Univers 00:00:00 00:00:00 Conchita HEALTH 350.1.13.10 it y of [place] 4.2.7.2.686 Marty as EMMETT?BLEA [id number] [address] 2021-10-02 2021-10-02 Outpatient REBEKAH KWON [facility] [id number] Univers 14:00:00 14:00:00 [facility] 2021-10-01 2021-10-01 Outpatient Ruben BULLOCK [facility] [id number] Univers 12:30:00 12:30:00 [facility] 2021-10-01 2021-10-01 Outpatient Ruben BULLOCK [facility] [id number] Univers 10:00:00 10:00:00 [facility] 2021-09-30 2021-09-30 Outpatient Ruben ASHLEY [facility] [id number] Univers 17:00:00 17:00:00 SONI [facility] 2021-09-28 2021-09-28 Outpatient R KING ALLISON [facility] [id number] Univers 09:20:00 09:35:47 VERNON [facility] 2021-09-27 2021-09-27 Outpatient REBEKAH KWON [facility] [id number] Univers 12:30:00 12:30:00 ity of [facility] 2021-09-27 2021-09-27 Telephone Rebekah Vaz 1.2.840.114 [id number] Univers 00:00:00 00:00:00 Yonathan TAYLOR 350.1.13.10 it y of [place] [id number] [address] 2021-09-20 2021-09-20 Telephone Rebekah Vaz 1.2.840.114 [id number] Univers 00:00:00 00:00:00 Yonathan TAYLOR 350.1.13.10 it y of [place] [id number] [address] 2021-09-14 2021-09-14 Patient Kobe IDANTONELLA 1.2.840.114 [id number] Univers 00:00:00 00:00:00 Secure [facility] 350.1.13.10 ity of [place] 4.2.7.2.686 Marty as EMMETT?BLEA [id number] [address] MEDICAL OFFICE BUILDING 2021-09-13 2021-09-13 Outpatient R REBEKAH VAZ [facility] [id number] Univers 11:15:00 12:08:16 ity of [facility] 2021-09-13 2021-09-13 Routine Rebekah Vaz IDANTONELLA LAINEZ 1.2.840.114 [id number] Univers 11:15:00 12:08:16 Yonathan TAYLOR 350.1.13.10 i ty of Visit [place] 4.2.[place] [id number] [address] 2021-09-13 2021-09-13 Letter Rebekah Vaz 1.2.840.114 [id number] Univers 00:00:00 00:00:00 (Out) Yonathan TAYLOR 350.1.13.10 it y of [place] [id number] [address] 2021-09-13 2021-09-13 Orders Doctor SAMPSON 1.2.840.114 [id number] Univers 00:00:00 00:00:00 Only Unassigned, BAILEY 350.1.13.10 ity of [place] [facility] 4.2.7.2.686 Marty as [id number] [address] 2021-09-04 2021-09-04 Outpatient R REBEKAH VAZ [facility] [id number] Univers 15:00:00 15:00:00 ity [facility] 2021-09-02 2021-09-02 Outpatient R DIANE [facility] [id number] Univers 09:45:00 09:45:00 SONI ity [facility] 2021-09-02 2021-09-02 Outpatient R KOBE [facility] [id number] Univers 00:00:00 00:00:00 WENTONG ity [facility] 2021-09-02 2021-09-02 Outpatient R KOBE [facility] [id number] Univers 00:00:00 00:00:00 WENTONG ity [facility] 2021-09-02 2021-09-02 Outpatient R KOBE [facility] [id number] Univers 00:00:00 00:00:00 [facility] 2021-08-30 2021-08-30 Outpatient R REBEKAH VAZ [facility] [id number] Univers 12:30:00 13:36:54 ity [facility] 2021-08-30 2021-08-30 Initial Rebekah Vaz [facility] 1.2.840.114 [id number] Univers 12:30:00 13:36:54 Yonathan TAYLOR 350.1.13.10 i ty of Visit [place] 4.2.[place].2.[place] [id number] [address] 2021-08-30 2021-08-30 Letter Rebekah Vaz IDANTONELLA LAINEZ 1.2.840.114 [id number] Univers 00:00:00 00:00:00 (Out) Yonathan TAYLOR 350.1.13.10 it y of [place] 4.2.[place] [id number] [address] 2021-08-29 2021-08-29 Outpatient R CASSIUS [facility] [id number] Univers 18:40:00 19:35:58 NELSON [facility] 2021-08-29 2021-08-29 Urgent Vernon Gonzalez [facility] 1.2.840.114 [id number] Univers 18:40:00 19:00:00 Nleson Ferguson [facility] 350.1.13.10 ity of [facility] 4.2.7.2.686 Marty as EMMETT?BLEA [id number] Ma marcela MYERS [address] MEDICAL OFFICE BUILDING 2021-08-29 2021-08-29 Outpatient Ruben CASSIUS [facility] [id number] Univers 18:40:00 18:40:00 NELSON [facility] 2021-08-27 2021-08-27 Machine Ironer Lab, Poncho - Lobo [facility] 1.2.840.1 14 [id number] Univers 14:00:00 14:15:00 Visit Kobe [facility] 350.1.13.10 ity of [facility] 4.2.7.2.686 Marty as EMMETT?BLEA [id number] Ma marcela ALCANTARA [address] MEDICAL OFFICE [facility] 2021-08-27 2021-08-27 Office Kobe [facility] 1.2.840.114 [id number] Univers 13:00:00 14:05:18 Visit [facility] 350.1.13.10 it y of [facility] 4.2.7.2.686 Marty as EMMETT?BLEA [id number] Ma marcela [facility] [address] MEDICAL OFFICE [facility] 2021-08-27 2021-08-27 Outpatient R KOBE [facility] [id number] Univers 13:00:00 14:05:18 JEANNA [facility] 2021-08-27 2021-08-27 Outpatient R COLTON [facility] [id number] Univers 14:00:00 14:00:00 MAR [facility] 2021-08-27 2021-08-27 Outpatient R KOBE [facility] [id number] Univers 14:00:00 14:00:00 [facility] 2021-08-27 2021-08-27 Orders Doctor SAMPSON 1.2.840.114 [id number] Univers 00:00:00 00:00:00 Only Unassigned, BAILEY 350.1.13.10 ity of [facility] 4.2.7.2.686 Marty as [id number] [address] 2021-08-27 2021-08-27 Akil [facility] 1.2.840.114 [id number] Univers 00:00:00 00:00:00 (Out) [place] HEALTH 350.1.13.10 it y of [place] 4.2.7.2.686 Marty as EMMETT?BLEA [phone] [facility] [address] MEDICAL OFFICE BUILDING 2021-08-26 2021-08-26 Outpatient R CHAPINCITO [facility] [id number] Univers 09:00:00 09:00:00 [facility] 2021-08-26 2021-08-26 Outpatient R CHAPINCITO [facility] [id number] Univers 09:00:00 09:00:00 [facility] 2021-08-26 2021-08-26 Outpatient R CHAPINCITO [facility] [id number] Univers 09:00:00 09:00:00 [facility] 2021-08-23 2021-08-23 Outpatient R REBEKAH VAZ [facility] [id number] Univers 10:45:00 10:45:00 ity [facility] 2021-07-23 2021-07-23 Laboratory Only, Ang Db Test [facility] 1.2.8 40.114 [id number] Univers 18:00:00 18:15:00 Only Cassius, Nelson HEALTH 350.1.13.10 ity [facility] 4.2.7.2.686 Matry as EMMETT?BLEA [id number] [facility] [address] MEDICAL OFFICE BUILDING 2021-07-23 2021-07-23 Outpatient R CASSIUS [facility] [id number] Univers 18:00:00 18:00:00 NELSON ity [facility] 2021-07-23 2021-07-23 Outpatient R CASSIUS [facility] [id number] Univers 16:00:00 16:00:00 NELSON ity [facility] 2021-07-23 2021-07-23 Outpatient R [facility] [id number] Univers 15:45:00 [facility]:45:[facility] 2021-07-04 2021-07-04 Orders Doctor ADRIÁN 1.2.840.114 [id number] Univers 00:00:00 00:00:00 Only Unassigned, BAILEY 350.1.13.10 ity of [facility] 4.2.7.2.686 Marty as [id number] [address] 2021-06-26 2021-06-26 [facility] [id number] Univers 16:00:00 16:11:06 LIBBY banda [facility] 2021-06-26 2021-06-26 Urgent Green Nelson [facility] 1.2.840.114 [id number] Univers 14:02:21 14:22:21 Care Libby Gr [facility] 350.1.13.10 ity of [place] 4.2.7.2.686 Marty as EMMETT?BLEA [id number] Ma marcela [address] MEDICAL OFFICE [facility] 2021-06-26 2021-06-26 Outpatient R [facility] [id number] Univers 14:00:00 14:00:00 LIBBY mckeon [facility] 2021-06-26 2021-06-26 Outpatient R [facility] [id number] Univers 10:00:00 10:00:00 [facility] 2021-06-24 2021-06-24 Outpatient [facility] [id number] Univers 10:00:00 10:00:00 SONI [facility] 2021-06-24 2021-06-24 Telephone [facility] 1.2.137.570 [id number] Univers 00:00:00 00:00:00 Soni Hinojosa HEALTH 350.1.13.10 i ty of [place] 4.2.7.2.686 Marty as EMMETT?BLEA [id number] Ma marcela [address] MEDICAL OFFICE BUILDING 2021-06-21 2021-06-21 Outpatient [facility] [id number] Univers 09:30:00 09:30:00 MUKUND anglin [facility] 2021-06-21 2021-06-21 Refill [facility] 1.2.840.114 [id number] Univers 00:00:00 00:00:00 Mukund HEALTH 350.1.13.10 it y of [place] 4.2.7.2.686 Marty as EMMETT?BLEA [id number] [address] MEDICAL OFFICE [facility] 2021-06-18 2021-06-18 Outpatient [facility] [id number] Univers 09:30:00 09:30:00 MUKUND anglin [facility] 2021-06-18 2021-06-18 Telephone LeticiamachelleL[facility]EL[facility] 1.2.119.119 [id number] Univers 00:00:00 00:00:00 Mukund Dindong 350.1.13.10 it y of [place] 4.2.7.2.686 Marty as EMMETT?BLEA [id number] [address] OFFICE [facility] 2021-06-13 2021-06-13 Patient [facility] 1.2.840.114 [id number] Univers 00:00:00 00:00:00 Secure Msg Mukund Dindong 350.1.13.10 ity [facility] 4.2.7.2.686 Marty as EMMETT?BLEA [id number] [address] OFFICE [facility] 2021-06-12 2021-06-12 Outpatient Ruben MOCK [facility] [id number] Univers 13:30:00 14:12:46 ERIC anglin [facility] 2021-06-12 2021-06-12 Office [facility] 1.2.694.520 [id number] Univers 13:23:25 14:12:46 Visit Eric Hammond AIRCRAFT DESIGN ENGINEER 350.1.13.10 it y of [facility] 4.2.7.2.686 Marty as MATERNAL [phone] [facility] ical & CHILD [address] [place] [address] 2021-06-12 2021-06-12 Outpatient [facility] [id number] Univers 13:30:00 13:30:00 ERIC anglin [facility] 2021-06-07 2021-06-07 [facility] 1.2.840.114 [id number] Univers 10:32:59 23:59:00 Encounter Mukund CANDELARIA 350.1.13.10 ity of [place] 4.2.7.2.686 Marty as EMMETT?BLEA [phone] Ma elroylala MYERS [address] MEDICAL OFFICE [facility] 2021-06-07 2021-06-07 Outpatient [facility] [id number] Univers 10:32:59 23:59:00 MUKUND anglin [facility] 2021-06-07 2021-06-07 Outpatient [facility] [id number] Univers 09:30:00 10:38:03 MUKUND anglin [facility] 2021-06-07 2021-06-07 Office [facility] 1.2.840.114 [id number] Univers 09:27:17 10:38:03 Visit Mukund CANDELARIA 350.1.13.10 it y of [place] 4.2.7.2.686 Marty as EMMETT?BLEA [id number] Ma marcela MYERS [address] [facility] OFFICE [facility] 2021-06-07 2021-06-07 Outpatient [facility] [id number] Univers 09:30:00 09:30:00 MUKUND anglin [facility] 2021-06-05 2021-06-05 [facility] 1.2.840.114 [id number] Univers 00:00:00 00:00:00 Linda HEALTH 350.1.13.10 it y of [place] 4.2.7.2.686 Marty as EMMETT?BLEA [id number] Ma elroylala MYERS [address] [facility] OFFICE [facility] 2021-06-04 2021-06-04 Outpatient [facility] [id number] Univers 09:30:00 09:30:00 MUKUND anglin [facility] 2021-06-01 2021-06-01 Refilana SotoLOVELACE [facility] 1.2.840.114 [id number] Univers 00:00:00 00:00:00 Mukund HEALTH 350.1.13.10 it y of [place] 4.2.7.2.686 Marty as EMMETT?BLEA [phone] [facility] [address] MEDICAL OFFICE [facility] 2021-05-31 2021-05-31 Shirley Denson [facility] 1.2.840.114 [id number] Univers 00:00:00 00:00:00 Linda HEALTH 350.1.13.10 it y of [place] 4.2.7.2.686 Marty as EMMETT?BLEA [id number] [facility] [address] MEDICAL OFFICE [facility] 2021-05-20 2021-05-20 Outpatient R CHAPINCITO [facility] [id number] Univers 13:30:00 13:30:00 JOSH [facility] 2021-05-17 2021-05-17 Outpatient R EMILI [facility] [id number] Univers 10:15:00 10:15:00 ERIC [facility] 2021-05-10 2021-05-10 Machine Ironer Lab, Ang - [facility] 1.2.840.1 14 [id number] Univers 13:53:17 14:07:26 Visit Diane Soni [facility] 350.1.13.10 ity of [place] 4.2.7.2.686 Marty as Emmett?Blea [phone] [facility] [address] [facility] Office [facility] 2021-05-10 2021-05-10 Office Mukund Soto [facility] 1.2.840.114 [id number] Univers 12:57:45 13:53:07 Visit DianeSoni malave Health 350.1.13.10 ity of [place] 4.2.7.2.686 Marty as Emmett?Blea [id number] [facility] 0[address] [facility] Office [facility] 2021-05-10 2021-05-10 Outpatient [facility] [id number] Univers 13:00:00 13:00:00 SONI corona [facility] 2021-05-08 2021-05-08 Linda Bhakta [facility] 1.2.840.114 [id number] Univers 18:49:53 19:09:53 Care [facility] 350.1.13.10 [facility] 4.2.7.2.686 Marty as Emmett?Blea [phone] Ma marcela [address] Medical Office Building 2021-05-08 2021-05-08 Outpatient R [facility] [id number] Univers 19:00:00 19:00:00 [facility] o f [facility] 2021-05-08 2021-05-08 Outpatient R [facility] [id number] Univers 17:20:00 17:20:00 [facility] 2021-04-25 2021-04-25 Routine [facility] 1.2.902.803 [id number] Univers 15:59:10 16:44:08 Eric Hammond AIRCRAFT DESIGN ENGINEER 350.1.13.10 i ty of Visit REGIONAL 4.2.7.2.686 Marty as MATERNAL [phone] Med ical & CHILD [address] [place] [address] 2021-04-25 2021-04-25 Outpatient [facility] [id number] Univers 16:00:00 16:00:00 ERIC anglin [facility] 2021-03-31 2021-04-03 Hospital ADRIÁN Elena 1.2.470.267 [id number] Univers 16:58:00 13:59:00 Encounter Julian AVALOS 350.1.13.10 [place] [address].2.7.2.686 Marty as [phone] [facility] [address] 2021-04-02 2021-04-02 Outpatient R [facility] [id number] Univers 14:15:00 14:15:00 ERIC anglin [facility] 2021-03-31 2021-04-01 Anesthesia [place] 1.2.840 .114 [id number] Univers 20:35:00 03:48:00 Event Adrián Parikh 350.1.13.10 [facility] 4.2.7.2.686 Marty as [id number] [address] 2021-03-31 2021-04-01 Surgery ADRIÁN Elena 1.2.840.114 [id number] Univers 23:00:00 00:43:00 Julian PERRYY 350.1.13.10 ity [facility] 4.2.7.2.686 Marty as [id number] [address] 2021-03-27 2021-03-27 Outpatient R BONNIE [facility] [id number] Univers 15:45:00 15:45:00 TAB banda f [facility] 2021-03-26 2021-03-26 Machine Ironer Ultrasound, [facility] 1.2 .840.114 [id number] Univers 15:04:09 15:34:09 Visit Eric Mock AIRCRAFT DESIGN ENGINEER 350.1.13.10 ity of [facility] 4.2.7.2 .686 [place] MATERNAL [phone] [facility] [address] [place] [address] 2021-03-26 2021-03-26 Machine Ironer Ultrasound, [facility] 1.2 .840.114 [id number] Univers 15:04:09 15:34:09 Visit Eric Mock AIRCRAFT DESIGN ENGINEER 350.1.13.10 ity of Susanna Woo [facility] 4.2.7.2 .686 [place] MATERNAL [phone] [facility] [address] [place] [address] 2021-03-26 2021-03-26 Outpatient P EMILI [facility] [id number] Univers 15:15:00 15:15:00 EIRC anglin of [facility] 2021-03-26 2021-03-26 Routine EmiliDOWNIEVILLE, UTANTONELLA 1.2.742.722 [id number] Univers 14:15:58 15:03:13 Eric Hammond AIRCRAFT DESIGN ENGINEER 350.1.13.10 i ty of Visit REGIONAL 4.2.7.2.686 Marty as MATERNAL [id number] [facility] ical & CHILD [address] [facility] 2021-03-26 2021-03-26 Routine Emili IDANTONELLA 1.2.506.879 [id number] Univers 14:15:58 15:03:13 Eric Hammond AIRCRAFT DESIGN ENGINEER 350.1.13.10 i ty of Visit REGIONAL 4.2.7.2.686 Marty as MATERNAL [phone] [facility] [address] [place] [address] 2021-03-21 2021-03-21 [facility] 1.2.840.114 [id number] Univers 00:00:00 00:00:00 Eric N [employer]CRA[employer] DESIGN ENGINEER 350.1.13.10 it y of REGIONAL 4.2.7.2.686 Marty as MATERNAL [phone] [facility] [address] [place] [address] 2021-03-20 2021-03-20 Outpatient R EMILI [facility] [id number] Univers 12:45:00 12:45:00 ERIC anglin [facility] 2021-03-20 2021-03-20 [facility], [facility] 1.2.840. 114 [id number] Univers 12:42:40 12:42:47 Visit Eric Mock [employer] DESIGN ENGINEER 350.1.13.10 ity of REGIONAL 4.2.7.2.686 Marty as MATERNAL [phone] [facility] [address] [place] [address] 2021-03-20 2021-03-20 Telephone [facility] 1.2.840.114 [id number] Univers 00:00:00 00:00:00 Eric Hammond [employer]CRA[employer] DESIGN ENGINEER 350.1.13.10 it y of REGIONAL 4.2.7.2.686 Marty as MATERNAL [phone] [facility] & CHILD [address] [place] [address] 2021-03-19 2021-03-19 [facility] [id number] Univers 14:24:31 15:03:42 Eric Hammond [employer]CRA[employer] DESIGN ENGINEER 350.1.13.10 i ty of Visit REGIONAL 4.2.7.2.686 Marty as MATERNAL [phone] [facility] [address] [place] [address] 2021-03-19 2021-03-19 [facility] [id number] Univers 14:15:00 14:15:00 ERIC anglin [facility] 2021-03-12 2021-03-12 Outpatient R [facility] [id number] Univers 09:30:00 09:30:00 ity [facility] 2021-03-05 2021-03-05 [facility] 1.2.789.411 [id number] Univers 10:48:25 11:35:50 Eric Hammond [employer] DESIGN ENGINEER 350.1.13.10 i ty of Visit REGIONAL 4.2.7.2.686 Marty as MATERNAL [phone] Med ical & CHILD [address] [place] [address] 2021-03-05 2021-03-05 [facility] [id number] Univers 11:00:00 11:00:00 ERIC [facility] 2021-02-27 2021-02-27 [facility] 1.2 .840.114 [id number] Univers 15:40:08 15:58:05 Visit Kathryn Fry [employer]CRA[employer] DESIGN ENGINEER 350.1.13.10 ity of REGIONAL 4.2.7.2.686 Marty as MATERNAL [phone] [facility] ical & CHILD [address] [place] [address] 2021-02-27 2021-02-27 Machine Ironer Ultrasound, Inocenciodieter [facility] 1.2 .840.114 [id number] Univers 14:55:25 15:25:25 Visit Eric Mock AIRCRAFT DESIGN ENGINEER 350.1.13.10 ity of REGIONAL 4.2.7.2.686 [place] as MATERNAL [id number] [facility] [address] [place] [address] 2021-02-27 2021-02-27 Outpatient P [facility] [id number] Univers 15:00:00 15:00:00 itcorona [facility] 2021-02-26 2021-02-26 Outpatient R EMILI [facility] [id number] Univers 10:45:00 10:45:00 ERIC anglin [facility] 2021-02-22 2021-02-22 Outpatient R SEVERO MCCLELLAN [facility] [id number] Univers 10:45:00 10:45:00 SEVERO MCCLELLAN [facility] 2021-02-22 2021-02-22 Telemedici Fellow, Len [facility] U NIVERSIT 1.2.840.114 [id number] Univers 08:26:49 08:41:49 ne Visit EleuterioSevero [facility] 350.1.13.10 ity of [facility] 4.2.7.2.686 [place] [phone] [address] 2021-02-19 2021-02-19 Routine [facility] 1.2.336.100 [id number] Univers 13:04:02 13:55:40 Eric N AIRCRAFT DESIGN ENGINEER 350.1.13.10 i ty of Visit REGIONAL 4.2.7.2.686 Marty as MATERNAL [phone] [facility] ical & CHILD [address] [place] [address] 2021-02-19 2021-02-19 Outpatient R [facility] [id number] Univers 13:00:00 13:00:00 ity [facility] 2021-02-19 2021-02-19 [facility] [id number] Univers 13:00:00 13:00:00 ERIC ity [facility] 2021-02-19 2021-02-19 Telephone [facility] 1.2.840.114 [id number] Univers 00:00:00 00:00:00 Eric Hammond AIRCRAFT DESIGN ENGINEER 350.1.13.10 it y of [facility] 4.2.7.2.686 Marty as MATERNAL [id number] [facility] & CHILD [address] [place] [address] 2021-02-18 2021-02-18 Outpatient R [facility] [id number] Univers 10:00:00 10:00:00 ity [facility] 2021-02-18 2021-02-18 Telephone Hortencia [facility] 1.2.840.114 [id number] Univers 00:00:00 00:00:00 [facility] AIRCRAFT DESIGN ENGINEER 350.1.13.10 ity [facility] 4.2.7.2.686 Marty as MATERNAL [id number] [facility] ical & CHILD [address] [place] [address] 2021-02-15 2021-02-15 Telemedici Makayla Lechuga [facility] 1.2.8 40.114 [id number] Univers 12:53:36 12:53:48 ne Visit ParveenMaico Vivek AIRCRAFT DESIGN ENGINEER 350.1.13.10 ity of [facility] 4.2.7.2.686 [place] as MATERNAL [id number] [address] 2021-02-15 2021-02-15 Outpatient P [facility] [id number] Univers 09:45:00 09:45:00 ity [facility] 2021-02-12 2021-02-12 Routine [facility] 1.2.341.653 [id number] Univers 13:33:25 14:47:59 Eric Hammond AIRCRAFT DESIGN ENGINEER 350.1.13.10 i ty of Visit [facility] 4.2.7.2.686 Marty as MATERNAL [phone] [address] 2021-02-12 2021-02-12 Outpatient R [facility] [id number] Univers 14:00:00 14:00:00 [facility] 2021-02-08 2021-02-08 Telephone [facility] 1.2.840.114 [id number] Univers 00:00:00 00:00:00 Eric Hammond AIRCRAFT DESIGN ENGINEER 350.1.13.10 it y of [facility] 4.2.7.2.686 Marty as MATERNAL [id number] [address] 2021-02-08 2021-02-08 Nurse ADRIÁN Seaman 1.2.840.114 [id number] Univers 00:00:00 00:00:00 Triage Aneatricjeanette AVALOS 350.1.13.10 ity [facility] 4.2.7.2.686 Marty as [id number] [address] 2021-02-05 2021-02-05 Outpatient R [facility] [id number] Univers 12:45:00 12:45:00 [facility] 2021-02-01 2021-02-01 Abstract [facility] 1.2.840.114 [id number] Univers 00:00:00 00:00:00 Tab Guerrero AIRCRAFT DESIGN ENGINEER 350.1.13.10 ity of [facility] 4.2.7.2.686 Marty as MATERNAL [id number] [facility] [address] [place] [address] 2021-01-31 2021-01-31 Machine Ironer 1, [facility] Us Room UNIVERSIT 1 .2.840.114 [id number] Univers 15:10:46 16:18:12 Visit Johnna Chowdhury Dindong 350.1 .13.10 ity of [facility] 4.2.7.2.[place] [phone] [facility] [address] [place] 2021-01-31 2021-01-31 Outpatient P [facility] [id number] Univers 15:30:00 15:30:00 ity [facility] 2021-01-29 2021-01-29 Emergency Jamila Zaldivar [facility] 1.2.840.114 [id number] Univers 22:06:00 23:25:00 Gormania 350.1.13.10 i ty of [place] 4.2.7.2.686 [place] [phone] [facility] [address] [place] 2021-01-29 2021-01-29 Routine [facility] 1.2.602.221 [id number] Univers 13:29:22 14:23:00 Eric Hammond AIRCRAFT DESIGN ENGINEER 350.1.13.10 i ty of Visit [facility] 4.2.7.2.686 Marty as MATERNAL [phone] [address] 2021-01-29 2021-01-29 [facility] [id number] Univers 13:45:00 13:45:00 ERIC anglin [facility] 2021-01-29 2021-01-29 Telephone [facility] 1.2.840.114 [id number] Univers 00:00:00 00:00:00 Eric N AIRCRAFT DESIGN ENGINEER 350.1.13.10 it y of [facility] 4.2.7.2.686 Marty as MATERNAL [phone] [facility] CHILD [address] [place] [address] 2021-01-29 2021-01-29 Nurse ADRIÁN Quezada 1.2.840.114 [id number] Univers 00:00:00 00:00:00 Triage Ellie AVALOS 350.1.13.10 ity of [facility] 42.7.2.686 Marty as [phone] [facility] [address] [place] 2021-01-29 2021-01-29 Orders Doctor ADRIÁN 1.2.840.114 [id number] Univers 00:00:00 00:00:00 Only Unassigned, BAILEY 350.1.13.10 ity of [place] [facility] 4.2.7.2.686 Marty as [id number] [facility] 009 [place] 2021-01-21 2021-01-21 Outpatient R [facility] [id number] Univers 11:00:00 11:00:00 ity of [facility] 2021-01-21 2021-01-21 Telemedici Faculty, Poncho Berry [facility] 1.2.840.114 [id number] Univers 09:02:46 09:17:46 ne Visit Julian Elena AIRCRAFT DESIGN ENGINEER 350.1.13. 10 ity of [facility] 4.2.7.2.686 Marty as MATERNAL [phone] Med ical & CHILD [address] [place] [address] 2021-01-18 2021-01-18 Telephone [facility] 1.2.840.114 [id number] Univers 00:00:00 00:00:00 Eric Hammond AIRCRAFT DESIGN ENGINEER 350.1.13.10 it y of [facility] 4.2.7.2.686 Marty as MATERNAL [phone] Med ical & CHILD [address] [place] [address] 2021-01-15 2021-01-15 Outpatient [facility] [id number] Univers 10:00:00 10:00:00 ERIC ity of [facility] 2021-01-15 2021-01-15 Telephone [facility] 1.2.840.114 [id number] Univers 00:00:00 00:00:00 Eric Hammond AIRCRAFT DESIGN ENGINEER 350.1.13.10 it y of [facility] 4.2.7.2.686 Marty as MATERNAL [phone] Med ical & CHILD [address] [place] [address] 2021-01-08 2021-01-08 Nurse Visit, Ruperto Nurse [facility] 1.2 .840.114 [id number] Univers 10:03:31 10:18:41 Visit Eric Mock AIRCRAFT DESIGN ENGINEER 350.1.13.10 ity of [facility] 4.2.7.2.686 Marty as MATERNAL [id number] [facility] & [address] 2021-01-08 2021-01-08 Outpatient R [facility] [id number] Univers 10:00:00 10:00:00 [facility] 2021-01-03 2021-01-03 Machine Ironer Lab[facility] 1.2.840. 114 [id number] Univers 08:59:03 10:31:23 Visit Eric Mock AIRCRAFT DESIGN ENGINEER 350.1.13.10 ity of [facility] 4.2.7.2.686 Marty as MATERNAL [id number] [address] 2021-01-03 2021-01-03 Outpatient R [facility] [id number] Univers 08:30:00 08:30:00 [facility] 2021-01-02 2021-01-02 Outpatient R [facility] [id number] Univers 10:30:00 10:30:00 [facility] 2021-01-01 2021-01-01 [facility]patient [facility] [id number] Univers 12:45:00 12:45:00 ERIC corona [facility] 2021-01-01 2021-01-01 Routine [facility] 1.2.752.199 [id number] Univers 08:34:05 09:19:16 Eric Hammond AIRCRAFT DESIGN ENGINEER 350.1.13.10 i ty of Visit [facility] 4.2.7.2.686 Marty as MATERNAL [id number] [facility] & CHILD [address] [place] [address] 2021-01-01 2021-01-01 Outpatient [facility] [id number] Univers 08:45:00 08:45:00 ERIC anglin [facility] 2020-12-26 2020-12-26 [facility] 1.2 .840.114 [id number] Univers 09:32:52 10:04:57 Visit Eric Mock AIRCRAFT DESIGN ENGINEER 350.1.13.10 ity of REGIONAL 4.2.7.2.686 Marty as MATERNAL [id number] [facility] [address] [place] [address] 2020-12-26 2020-12-26 Outpatient R [facility] [id number] Univers 09:30:00 09:30:00 ity [facility] 2020-12-24 2020-12-24 Outpatient R [facility] [id number] Univers 15:00:00 15:00:00 ity [facility] 2020-12-24 2020-12-24 Telemedici Faculty, Poncho Tuckerantonio [facility] 1.2.840.114 [id number] Univers 08:59:50 09:14:50 ne Visit Kandi Reid AIRCRAFT DESIGN ENGINEER 350.1.13.10 ity of [facility] 4.2.7.2.686 Marty as MATERNAL [phone] [facility] & CHILD [address] [place] [address] 2020-12-21 2020-12-21 Outpatient MAICO DIETRICH [facility] [id number] Univers 11:15:00 11:15:00 ity [facility] 2020-12-21 2020-12-21 Telephone Emili IDANTONELLA 1.2.840.114 [id number] Univers 00:00:00 00:00:00 Eric Hammond AIRCRAFT DESIGN ENGINEER 350.1.13.10 it y of [place] 4.2.7.2.686 Marty as MATERNAL [phone] [address] 2020-12-19 2020-12-19 [facility] 1.2 .840.114 [id number] Univers 09:52:56 10:23:27 Visit Eric Mock AIRCRAFT DESIGN ENGINEER 350.1.13.10 ity of [facility] 4.2.7.2.686 Marty as MATERNAL [id number] [facility] & CHILD [address] [place] [address] 2020-12-19 2020-12-19 Outpatient R [facility] [id number] Univers 09:30:00 09:30:00 ity [facility] 2020-12-18 2020-12-18 Orders Doctor SAMPSON 1.2.840.114 [id number] Univers 00:00:00 00:00:00 Only Unassigned, BAILEY 350.1.13.10 ity of [place] [facility] 4.2.7.2.686 Marty as [id number] [facility] [address] 2020-12-15 2020-12-15 Nurse ADRIÁN Quezada 1.2.840.114 [id number] Univers 00:00:00 00:00:00 Triage Ellie AVALOS 350.1.13.10 ity of [facility] 4.2.7.2.686 Marty as [phone] [facility] 019 [place] 2020-12-12 2020-12-12 Nurse [facility] 1.2 .840.114 [id number] Univers 10:18:52 10:44:10 Visit Eric Mock AIRCRAFT DESIGN ENGINEER 350.1.13.10 ity of [facility] 4.2.7.2.686 Marty as MATERNAL [id number] Med ical & CHILD [address] [place] [address] 2020-12-12 2020-12-12 Outpatient R [facility] [id number] Univers 10:00:00 10:00:00 ity [facility] 2020-12-12 2020-12-12 Machine Ironer Ultrasound, Margie [facility] 1.2 .840.114 [id number] Univers 09:28:22 09:58:22 Visit Kathryn Fry AIRCRAFT DESIGN ENGINEER 350.1.13.10 ity Brandon Whitten [facility] 4.2.7.2.686 [place] Tammy Ortiz MATERNAL [id number] Medical & CHILD [address] [place] [address] 2020-12-10 2020-12-10 Outpatient R CANDICE [facility] [id number] Univers 08:30:00 08:30:00 ROBERT ity [facility] 2020-12-05 2020-12-05 Routine [facility] 1.2.531.408 [id number] Univers 08:24:48 09:04:09 Eric Hammond AIRCRAFT DESIGN ENGINEER 350.1.13.10 i ty of Visit [facility] 4.2.7.2.686 Marty as MATERNAL [phone] Med ical & CHILD [address] [place] [address] [place] 2020-12-05 2020-12-05 Outpatient R EMILI [facility] [id number] Univers 08:30:00 08:30:00 ERIC katycorona [facility] 2020-12-05 2020-12-05 Machine Ironer Ultrasound, [facility] 1.2 .840.114 [id number] Univers 07:59:46 08:24:35 Visit Kathryn Fry AIRCRAFT DESIGN ENGINEER 350.1.13.10 ity of Brandon Whitten [facility] 4.2.7.2.686 [place] Severo Mcclellan MATERNAL [phone] Medical & CHILD [address] [place] [address] 2020-12-03 2020-12-03 Telephone Emili [facility] 1.2.840.114 [id number] Univers 00:00:00 00:00:00 Eric Hammond AIRCRAFT DESIGN ENGINEER 350.1.13.10 it y of [facility] 4.2.7.2.686 Marty as MATERNAL [phone] [facility] & [address] 2020-11-29 2020-11-29 Outpatient [facility] [id number] Univers 08:45:00 08:45:00 ERIC anglin [facility] 2020-11-28 2020-11-28 Nurse Visit, InocencioRmchp Nurse [facility] 1.2 .840.114 [id number] Univers 09:01:14 09:28:22 Visit Eric Mock AIRCRAFT DESIGN ENGINEER 350.1.13.10 ity [facility] 4.2.7.2.686 Marty as MATERNAL [id number] [address] 2020-11-28 2020-11-28 Outpatient [facility]en [facility] [id number] Univers 08:30:00 08:30:00 ERIC anglin [facility] 2020-11-22 2020-11-22 Machine Ironer Ultrasound, [facility] 1.2 .840.114 [id number] Univers 08:53:19 10:08:19 Visit Emmanuel Lepe AIRCRAFT DESIGN ENGINEER 350.1.13.10 ity of [facility] 4.2.7.2.686 Marty as MATERNAL [id number] Med ical & CHILD [address] [facility] 2020-11-22 2020-11-22 Outpatient P [facility] [id number] Univers 08:45:00 08:45:00 ity of [facility] 2020-11-21 2020-11-21 Nurse Visit, InocencioRmchp Nurse [facility] 1.2 .840.114 [id number] Univers 08:53:59 09:10:18 Visit Eric Mock AIRCRAFT DESIGN ENGINEER 350.1.13.10 ity of [facility] 4.2.7.2.686 Marty as MATERNAL [id number] Med ical & CHILD [address] [place] [address] 2020-11-21 2020-11-21 Outpatient R EMILI [facility] [id number] Univers 08:30:00 08:30:00 ERIC itcorona [facility] 2020-11-14 2020-11-14 Machine Ironer Ultrasound, Margie [facility] 1.2 .840.114 [id number] Univers 08:56:46 09:26:46 Visit Kathryn Fry AIRCRAFT DESIGN ENGINEER 350.1.13.10 ity of FishBrandon raymundo R REGIONAL 4.2.7.2.686 [place] MATERNAL [id number] [facility] ical & CHILD [address] [place] [address] 2020-11-14 2020-11-14 Routine Ang [facility] 1.2.840.114 [id number] Univers 08:23:13 08:38:13 Kathryn Miranda AIRCRAFT DESIGN ENGINEER 350.1.13.10 ity of Visit [facility] 4.2.7.2.686 Marty as MATERNAL [id number] [facility] ical & CHILD [address] [place] [address] 2020-11-14 2020-11-14 Outpatient R [facility] [id number] Univers 08:30:00 08:30:00 ity of [facility] 2020-11-13 2020-11-13 Outpatient R [facility] [id number] Univers 17:20:00 17:20:00 ity of [facility] 2020-11-13 2020-11-13 Telephone Emili [facility] 1.2.840.114 [id number] Univers 00:00:00 00:00:00 Eric N AIRCRAFT DESIGN ENGINEER 350.1.13.10 it y of [facility] 4.2.7.2.686 Marty as MATERNAL [id number] Med ical & CHILD [address] [place] [address] 2020-11-07 2020-11-07 Routine [facility] 1.2.391.814 [id number] Univers 10:03:48 10:53:52 Eric Hammond AIRCRAFT DESIGN ENGINEER 350.1.13.10 i ty of Visit [facility] 4.2.7.2.686 Marty as MATERNAL [id number] [facility] [address] [place] [address] 2020-11-07 2020-11-07 Routine [facility] 1.2.304.046 [id number] 10:03:48 10:53:52 Eric Hammond AIRCRAFT DESIGN ENGINEER 350.1.13.10 Visit REGIONAL 4.2.7.2.686 MATERNAL [phone] & [address] 2020-11-07 2020-11-07 [facility] [id number] Univers 09:15:00 09:15:00 ERIC anglin [facility] 2020-11-06 2020-11-06 Outpatient [facility] [id number] Univers 14:15:00 14:15:00 ERIC anglin [facility] 2020-11-05 2020-11-05 Telephone [facility] 1.2.840.114 [id number] Univers 00:00:00 00:00:00 Eric N AIRCRAFT DESIGN ENGINEER 350.1.13.10 it y of [facility] 4.2.7.2.686 Marty as MATERNAL [id number] [facility] [address] [place] [address] 2020-10-31 2020-10-31 Telephone [facility] 1.2.840.114 [id number] Univers 00:00:00 00:00:00 Eric N AIRCRAFT DESIGN ENGINEER 350.1.13.10 it y of [facility] 4.2.7.2.686 Marty as MATERNAL [id number] Med ical & CHILD [address] [place] [address] 2020-10-31 2020-10-31 Telephone [facility] 1.2.840.114 [id number] Univers 00:00:00 00:00:00 Eric Hammond AIRCRAFT DESIGN ENGINEER 350.1.13.10 it y of [facility] 4.2.7.2.686 Marty as MATERNAL [id number] [facility] ical & CHILD [address] [place] [address] 2020-10-30 2020-10-30 Telephone [facility] 1.2.840.114 [id number] Univers 00:00:00 00:00:00 Eric Hammond AIRCRAFT DESIGN ENGINEER 350.1.13.10 it y of [facility] 4.2.7.2.686 Marty as MATERNAL [id number] [facility] ical & CHILD [address] [place] [address] 2020-10-29 2020-10-29 Emergency Cynthia [facility] 1.2.285.116 [id number] Univers 15:24:00 18:12:00 [place] Gormania 350.1.13.10 ity of [place] 4.2.7.2.686 [place] [facility] [id number] [address] 2020-10-29 2020-10-29 Outpatient R [facility] [id number] Univers 09:30:00 09:30:00 ity of [facility] 2020-10-29 2020-10-29 Telemedici Faculty, Poncho [facility] 1.2.840.114 [id number] Univers 08:09:37 08:24:37 ne Visit Brandon Whitten AIRCRAFT DESIGN ENGINEER 350.1.13.10 ity of [facility] 4.2.7.2.686 Marty as MATERNAL [id number] [facility] & CHILD [address] [place] [address] 2020-10-29 2020-10-29 Telephone [facility] 1.2.840.114 [id number] Univers 00:00:00 00:00:00 Eric Hammond AIRCRAFT DESIGN ENGINEER 350.1.13.10 it y of [facility] 4.2.7.2.686 Marty as MATERNAL [id number] [facility] [address] [place] [address] 2020-10-29 2020-10-29 Orders Doctor SAMPSON 1.2.840.114 [id number] Univers 00:00:00 00:00:00 Only Unassigned, BAILEY 350.1.13.10 ity of [place] [facility] 4.2.7.2.686 Marty as [phone] [address] 2020-10-28 2020-10-28 Telephone Ana [facility] 1.2.728.557 [id number] Univers 00:00:00 00:00:00 Rhonda Howe AIRCRAFT DESIGN ENGINEER 350.1.13.10 ity of [facility] 4.2.7.2.686 Marty as MATERNAL [id number] Med ical & CHILD [address] [facility] 2020-10-26 2020-10-26 Telephone [facility] 1.2.840.114 [id number] Univers 00:00:00 00:00:00 Eric Hammond AIRCRAFT DESIGN ENGINEER 350.1.13.10 it y of [facility] 4.2.7.2.686 Marty as MATERNAL [id number] [facility] ical & CHILD [address] [place] [address] 2020-10-24 2020-10-24 Telephone Emili [facility] 1.2.840.114 [id number] Univers 00:00:00 00:00:00 Eric Hammond AIRCRAFT DESIGN ENGINEER 350.1.13.10 it y of [facility] 4.2.7.2.686 Marty as MATERNAL [id number] [facility] ical & CHILD [address] [place] [address] 2020-10-22 2020-10-22 Telephone Ana [facility] 1.2.721.798 [id number] Univers 00:00:00 00:00:00 Rhonda Howe AIRCRAFT DESIGN ENGINEER 350.1.13.10 ity of [facility] 4.2.7.2.686 Marty as MATERNAL [id number] [facility] ical & CHILD [address] [place] [address] 2020-10-04 2020-10-04 Routine Risk, Nmm-Pzcry-Gx/High [facility] 1. 2.840.114 [id number] Univers 14:35:18 15:12:11 Rhonda Perez AIRCRAFT DESIGN ENGINEER 350.1.13.10 ity of Visit [facility] 4.2.7.2.686 [place] as MATERNAL [id number] Med ical & CHILD [address] [facility] 2020-10-04 2020-10-04 Outpatient R [facility] [id number] Univers 14:30:00 14:30:00 ity of [facility] 2020-10-04 2020-10-04 Telephone [facility] 1.2.840.114 [id number] Univers 00:00:00 00:00:00 Eric Hammond AIRCRAFT DESIGN ENGINEER 350.1.13.10 it y of [facility] 4.2.7.2.686 Marty as MATERNAL [id number] [facility] & CHILD [address] [place] [address] 2020-10-03 2020-10-03 Telephone [facility] 1.2.840.114 [id number] Univers 00:00:00 00:00:00 Eric Hammond AIRCRAFT DESIGN ENGINEER 350.1.13.10 it y of [facility] 4.2.7.2.686 Marty as MATERNAL [id number] [address] 2020-10-01 2020-10-01 Telephone [facility] 1.2.840.114 [id number] Univers 00:00:00 00:00:00 Eric Hammond AIRCRAFT DESIGN ENGINEER 350.1.13.10 it y of [facility] 4.2.7.2.686 Marty as MATERNAL [id number] [facility] & CHILD [address] [place] [address] 2020-09-25 2020-09-25 Orders Doctor ADRIÁN 1.2.840.114 [id number] Univers 00:00:00 00:00:00 Only Unassigned, BAILEY 350.1.13.10 ity of [place] [facility] 4.2.7.2.686 Marty as [id number] [address] 2020-09-13 2020-09-13 Routine Risk, Ztc-Sthxb-Ef/High [facility] 1. 2.840.114 [id number] Univers 15:33:54 16:21:30 Onelia Price AIRCRAFT DESIGN ENGINEER 350.1.13.10 ity of Visit [facility] 4.2.7.2.686 Marty as MATERNAL [id number] [facility] & CHILD [address] [place] [address] 2020-09-13 2020-09-13 Outpatient R [facility] [id number] Univers 15:30:00 15:30:00 ity of [facility] 2020-09-06 2020-09-06 Outpatient R [facility] [id number] Univers 15:00:00 15:00:00 ity [facility] 2020-09-03 2020-09-03 Telephone Emili IDANTONELLA 1.2.840.114 [id number] Univers 00:00:00 00:00:00 Eric Hammond AIRCRAFT DESIGN ENGINEER 350.1.13.10 it y of [facility] 4.2.7.2.686 [place] as MATERNAL [id number] Med ical & CHILD [address] [place] [address] 2020-08-31 2020-08-31 [facility].2 .840.114 [id number] Univers 15:11:17 15:41:17 Visit Johnna Chowdhury AIRCRA[employer] DESIGN ENGINEER 350.1. 13.10 ity of REGIONAL [id number] Marty as MATERNAL [phone] [facility] [address] [place] [address] 2020-08-31 2020-08-31 Outpatient P [facility] [id number] Univers 15:00:00 15:00:00 ity [facility] 2020-08-31 2020-08-31 Abstract Emili [facility] 1.2.840.114 [id number] Univers 00:00:00 00:00:00 Eric Hammond AIRCRAFT DESIGN ENGINEER [id number] it y of REGIONAL [id number] Marty as MATERNAL [id number] [facility] [address] [place] [address] 2020-08-31 2020-08-31 Telephone Emili [facility] 1.2.840.114 [id number] Univers 00:00:00 00:00:00 Eric Hammond AIRCRAFT DESIGN ENGINEER [id number] it y of REGIONAL [id number] Marty as MATERNAL [id number] [facility] [address] [place] [address] 2020-08-29 2020-08-29 Telephone Emili [facility] 1.2.840.114 [id number] Univers 00:00:00 00:00:00 Eric Hammond AIRCRAFT DESIGN ENGINEER [id number] it y of REGIONAL [id number] Marty as MATERNAL [phone] Med ical & CHILD [address] [place] [address] 2020-08-27 2020-08-27 Telephone [facility] 1.2.840.114 [id number] Univers 00:00:00 00:00:00 Eric N AIRCRAFT DESIGN ENGINEER [id number] it y of [facility] [id number] Marty as MATERNAL [phone] [address] 2020-08-22 2020-08-22 Telephone [facility] 1.2.840.114 [id number] Univers 00:00:00 00:00:00 Eric Manish AIRCRAFT DESIGN ENGINEER 350.1.13.10 it y of [facility] 4.2.7.2.686 Marty as MATERNAL [phone] [address] 2020-08-21 2020-08-21 Initial [facility] [id number] Univers 14:51:44 16:19:05 Eric Hammond AIRCRAFT DESIGN ENGINEER 350.1.13.10 i ty of Visit REGIONAL 4.2.7.2.686 Marty as MATERNAL [id number] [facility] CHILD [address] [place] [address] 2020-08-21 2020-08-21 [facility] [id number] Univers 14:00:00 14:00:00 ERIC anglin [facility] 2020-08-21 2020-08-21 Orders Doctor SAMPSON [id number] [id number] Univers 00:00:00 00:00:00 Only Unassigned, BAILEY 350.1.13.10 ity of [place] [facility] 4.2.7.2.686 Marty as [id number] [address] 2020-08-14 2020-08-14 Outpatient R [facility] [id number] Univers 09:15:00 09:15:00 ity [facility] 2019-10-28 2019-10-28 Outpatient Raju_P MMG MMG [id number] [place] 02:06:00 02:06:00 [facility] 2019-03-02 2019-03-02 Orders Doctor ADRIÁN Mclaughlin.2.840.114 [id number] Univers 00:00:00 00:00:00 Only Unassigned, BAILEY 350.1.13.10 ity of [place] [facility] 4.2.7.2.686 Marty as [phone] [address] Results Test Description Test Time Test Comments Results Result Comments Source RHO (D) IMMUNE GLOBULIN 2022-09-11 16:36:07 Test Item Value Reference Range Interpretation Comme nts RHIG CANDIDATE? (test code = No- see comment Patient is not a candidate for RhIg- 5055) Patient is Rh P ositive.Performed at [facility] Laboratory [facility] Blood [address] [place], [place] [address]Toll Free: [phone] A No. [id number] [facility] [id number] 16:36:07 Test Item Value Reference Range Interpretation Comments RHIG CANDIDATE? No- see comment Patient i s not a (test code = candidate for R hIg- 5055) Patient is Rh Positive.Perfor med at [facility] Laboratory [facility] Blood [address] [place] [address] Free: [phone] A No. [id number] [facility] with [id number] 13:09:16 Test Item Value Reference Range Interpretation Comments WBC (test code = 8.41 See_Comment [Automated 2908-2) message] The sy stem which generated this result transmitted reference range : 4.30 - 11.10 10*3/?L. The reference range was not used to interpret this result as normal/abnormal . RBC (test code = 4.93 See_Comment [Automated 384-8) message] The sy stem which generated this [...] RDW-SD (test code = 40.0 fL 39.0-49.9 68006-5) RDW-CV (test code = 18.6 % 12.0-15.5 H 788-0) PLT (test code = 272 See_Comment [Automated 777-3) message] The sy stem which generated this result transmitted reference range : 166 - 358 10*3/ ?L. The reference r eliezer was not used to interpret this result as normal/abnormal . MPV (test code = 9.8 fL 9.5-12.9 87459-5) NRBC/100 WBC (test 0.0 See_Comment [Automat ed code = 7606603686) message] The system which generated this result transmitted reference range : 0.0 - 10.0 /100 WBCs. The refer ence range was not u sed to interpret th is result as normal/abnormal . NRBC x10^3 (test code See_Comment [Auto mated = 6020835136) message] The s ystem which generated this result transmitted reference range : 10*3/?L. The reference range was not used to interpret this result as normal/abnormal . GRAN MAT (NEUT) % 68.7 % (test code = 770-8) IMM GRAN % (test code 0.60 % = 3155255908) LYMPH % (test code = 24.4 % 736-9) MONO % (test code = 5.4 % 5905-5) EOS % (test code = 0.5 % 713-8) BASO % (test code = 0.4 % 706-2) GRAN MAT x10^3(ANC) 5.79 10*3/uL 1.88-7.09 (test code = 4897986652) IMM GRAN x10^3 (test 0.05 10*3/uL 0.00-0.06 code = 7263727859) LYMPH x10^3 (test code 2.05 10*3/uL 1.32-3.29 = 731-0) MONO x10^3 (test code 0.45 10*3/uL 0.33-0.92 = 742-7) EOS x10^3 (test code = 0.04 10*3/uL 0.03-0.39 711-2) BASO x10^3 (test code 0.03 10*3/uL 0.01-0.07 = 704-7) Lab Interpretation Abnormal (test code = 59348-6) [facility] with [id number] 13:09:16 Test Item Value Reference Range Interpretation Comments WBC (test code = 8.41 See_Comment [Automated 3790-2) message] The sy stem which generated this result transmitted reference range : 4.30 - 11.10 10*3/?L. The reference range was not used to interpret this result as normal/abnormal . RBC (test code = 4.93 See_Comment [Automated 789-8) message] The sy stem [...] RDW-SD (test code = 40.0 fL 39.0-49.9 01270-6) RDW-CV (test code = 18.6 % 12.0-15.5 H 788-0) PLT (test code = 272 See_Comment [Automated 777-3) message] The sy stem which generated this result transmitted reference range : 166 - 358 10*3/ ?L. The reference r eliezer was not used to interpret this result as normal/abnormal . MPV (test code = 9.8 fL 9.5-12.9 09854-8) NRBC/100 WBC (test 0.0 See_Comment [Automat ed code = 0418689406) message] The system which generated this result transmitted reference range : 0.0 - 10.0 /100 WBCs. The refer ence range was not u sed to interpret th is result as normal/abnormal . NRBC x10^3 (test code See_Comment [Auto mated = 7216490216) message] The s ystem which generated this result transmitted reference range : 10*3/?L. The reference range was not used to interpret this result as normal/abnormal . GRAN MAT (NEUT) % 68.7 % (test code = 770-8) IMM GRAN % (test code 0.60 % = 2700055109) LYMPH % (test code = 24.4 % 736-9) MONO % (test code = 5.4 % 5905-5) EOS % (test code = 0.5 % 713-8) BASO % (test code = 0.4 % 706-2) GRAN MAT x10^3(ANC) 5.79 10*3/uL 1.88-7.09 (test code = 8498395916) IMM GRAN x10^3 (test 0.05 10*3/uL 0.00-0.06 code = 5336958317) LYMPH x10^3 (test code 2.05 10*3/uL 1.32-3.29 = 731-0) MONO x10^3 (test code 0.45 10*3/uL 0.33-0.92 = 742-7) EOS x10^3 (test code = 0.04 10*3/uL 0.03-0.39 711-2) BASO x10^3 (test code 0.03 10*3/uL 0.01-0.07 = 704-7) Lab Interpretation Abnormal (test code = 32623-4) [facility] System[facility] WORKUP, BLOOD [id number] 17:00:38 Test Item Value Reference Range Interpretation Comments ABO & RH (test code O Positive Performe d at [facility] = 20) Laboratory Serv [facility] [place] [phone] Free: [phone] A No. [id number] IAT (test code = Negative Performed a t [facility] 1185) Laboratory Serv [facility] [address] [place] [address]Aowz Free: [phone] A No. [id number] [facility] WITH [id number] 16:26:18 Test Item Value Reference Range Interpretation [...] RDW-SD (test code = 40.9 fL 39.0-49.9 09553-2) RDW-CV (test code = 18.7 % 12.0-15.5 H 788-0) PLT (test code = 256 See_Comment [Automated 777-3) message] The sy stem which generated this result transmitted reference range : 166 - 358 10*3/ ?L. The reference r eliezer was not used to interpret this result as normal/abnormal . MPV (test code = 9.4 fL 9.5-12.9 L 70849-2) NRBC/100 WBC (test 0.0 See_Comment [Automat ed code = 6404730985) message] The system which generated this result transmitted reference range : 0.0 - 10.0 /100 WBCs. The refer ence range was not u sed to interpret th is result as normal/abnormal . NRBC x10^3 (test code See_Comment [Auto mated = 2780966796) message] The s ystem which generated this result transmitted reference range : 10*3/?L. The reference range was not used to interpret this result as normal/abnormal . GRAN MAT (NEUT) % 75.4 % (test code = 770-8) IMM GRAN % (test code 0.70 % = 4800368519) LYMPH % (test code = 19.2 % 736-9) MONO % (test code = 4.1 % 5905-5) EOS % (test code = 0.4 % 713-8) BASO % (test code = 0.2 % 706-2) GRAN MAT x10^3(ANC) 6.37 10*3/uL 1.88-7.09 (test code = 6868885000) IMM GRAN x10^3 (test 0.06 10*3/uL 0.00-0.06 code = 7841176255) LYMPH x10^3 (test code 1.62 10*3/uL 1.32-3.29 = 731-0) MONO x10^3 (test code 0.35 10*3/uL 0.33-0.92 = 742-7) EOS x10^3 (test code = 0.03 10*3/uL 0.03-0.39 711-2) BASO x10^3 (test code 0.01-0.07 = 704-7) Lab Interpretation Abnormal (test code = 04825-2) [facility] WITH [id number] 16:26:18 Test Item Value Reference Range Interpretation Comments WBC (test code = 8.45 See_Comment [Automated 0019-2) message] The sy stem which generated this result transmitted reference range : 4.30 - 11.10 10*3/?L. The reference range was not used to interpret this result as normal/abnormal . RBC (test code = 5.01 See_Comment [Automated 782-8) message] The sy stem which generated this [...] RDW-SD (test code = 40.9 fL 39.0-49.9 18488-0) RDW-CV (test code = 18.7 % 12.0-15.5 H 788-0) PLT (test code = 256 See_Comment [Automated 777-3) message] The sy stem which generated this result transmitted reference range : 166 - 358 10*3/ ?L. The reference r eliezer was not used to interpret this result as normal/abnormal . MPV (test code = 9.4 fL 9.5-12.9 L 87634-8) NRBC/100 WBC (test 0.0 See_Comment [Automat ed code = 4600436230) message] The system which generated this result transmitted reference range : 0.0 - 10.0 /100 WBCs. The refer ence range was not u sed to interpret th is result as normal/abnormal . NRBC x10^3 (test code See_Comment [Auto mated = 8092038824) message] The s ystem which generated this result transmitted reference range : 10*3/?L. The reference range was not used to interpret this result as normal/abnormal . GRAN MAT (NEUT) % 75.4 % (test code = 770-8) IMM GRAN % (test code 0.70 % = 4968458359) LYMPH % (test code = 19.2 % 736-9) MONO % (test code = 4.1 % 5905-5) EOS % (test code = 0.4 % 713-8) BASO % (test code = 0.2 % 706-2) GRAN MAT x10^3(ANC) 6.37 10*3/uL 1.88-7.09 (test code = 9515252951) IMM GRAN x10^3 (test 0.06 10*3/uL 0.00-0.06 code = 9156046842) LYMPH x10^3 (test code 1.62 10*3/uL 1.32-3.29 = 731-0) MONO x10^3 (test code 0.35 10*3/uL 0.33-0.92 = 742-7) EOS x10^3 (test code = 0.03 10*3/uL 0.03-0.39 711-2) BASO x10^3 (test code 0.01-0.07 = 704-7) Lab Interpretation Abnormal (test code = 70938-6) [facility] W/O SPECIFIC [id number] 19:58:00 Test Item Value Reference Range Interpretation [...] code = 3257) n/a Negative - Negative [facility] ONLY - [id number] 11:38:01 Test Item Value Reference Range Interpretation Comments RPR (Qualitative) (test code = Nonreactive Nonreactive 11934-4) Lab Interpretation (test code = Normal 26477-8) [facility] SystemHIV 1/2 AG-AB WITH [id number] 08:22:15 Test Item Value Reference Range Interpretation Comments HIV 0.14 Negative Semi-quantitative (test code = 99458-1) NORM (test code = Non-reactive for HIV-1 NORM) antigen and HIV-1/HIV-2 antibodies. ?No laboratory evidence of HIV infection. ?Repeat in 2-4 weeks if acute HIV infection is suspected. [facility] SystemType and Screen - ONCE [id number] 07:35:21 Test Item Value Reference Range Interpretation Comments ABO & RH (test code O Positive Performe d at [facility] = 20) Laboratory Serv [facility] [address] [place] [address]Ifse Free: [phone] A No. [id number] IAT (test code = Negative Performed a t [facility] 1185) Laboratory Serv [facility] [address] [place] [phone] Free: [phone] A No. [id number] [facility] WITH [id number] 07:08:09 Test Item Value Reference Range Interpretation Comments WBC (test code = 10.11 See_Comment [Automated 0590-2) message] The sy stem which generated this result transmitted reference range : 4.30 - 11.10 10*3/?L. The reference range was not used to interpret this result as normal/abnormal . RBC (test code = 4.81 See_Comment [Automated 789-8) message] The sy stem [...] RDW-SD (test code = 39.1 fL 39.0-49.9 11226-8) RDW-CV (test code = 17.8 % 12.0-15.5 H 788-0) PLT (test code = 293 See_Comment [Automated 777-3) message] The sy stem which generated this result transmitted reference range : 166 - 358 10*3/ ?L. The reference r eliezer was not used to interpret this result as normal/abnormal . MPV (test code = 10.2 fL 9.5-12.9 42409-2) NRBC/100 WBC (test 0.0 See_Comment [Automat ed code = 9412007318) message] The system which generated this result transmitted reference range : 0.0 - 10.0 /100 WBCs. The refer ence range was not u sed to interpret th is result as normal/abnormal . NRBC x10^3 (test code See_Comment [Auto mated = 9671821765) message] The s ystem which generated this result transmitted reference range : 10*3/?L. The reference range was not used to interpret this result as normal/abnormal . GRAN MAT (NEUT) % 70.4 % (test code = 770-8) IMM GRAN % (test code 0.80 % = 3524214508) LYMPH % (test code = 22.0 % 736-9) MONO % (test code = 5.6 % 5905-5) EOS % (test code = 0.7 % 713-8) BASO % (test code = 0.5 % 706-2) GRAN MAT x10^3(ANC) 7.12 10*3/uL 1.88-7.09 H (test code = 2591596813) IMM GRAN x10^3 (test 0.08 10*3/uL 0.00-0.06 H code = 4832256237) LYMPH x10^3 (test code 2.22 10*3/uL 1.32-3.29 = 731-0) MONO x10^3 (test code 0.57 10*3/uL 0.33-0.92 = 742-7) EOS x10^3 (test code = 0.07 10*3/uL 0.03-0.39 711-2) BASO x10^3 (test code 0.05 10*3/uL 0.01-0.07 = 704-7) Lab Interpretation Abnormal (test code = 85430-6) [facility] URINALYSIS W/O SPECIFIC [id number] 15:51:00 Test Item Value Reference Range Interpretation Comments POCT PH U (test code = 3254) 6 mg/dl 5-8 POCT U LEUK EST (test code = Trace Negative - Negative 3) POCT U NIT (test code = 3262) negative Negative - Negative POCT U PROT (test code = 3259) Trace Negative - Negative POCT U GLU (test code = 3256) negative Negative - Negative POCT U KETONE (test code = 3258) 1+ Negative - Negative POCT U BLD (test code = 3257) negative Negative - Negative [facility] URINALYSIS W/O SPECIFIC [id number] 15:47:00 Test Item Value Reference Range Interpretation [...] code = 3257) negative Negative - Negative [facility] URINALYSIS W/O SPECIFIC [id number] 15:04:00 Test Item Value Reference Range Interpretation [...] code = 3257) n/a Negative - Negative [facility] MOLECULAR [id number] 17:47:40 Test Item Value Reference Range Interpretation Comments POCT Molecular FluA (test code = Negative Negative 78957-6) POCT Molecular FluB (test code = Negative Negative 89081-0) Lab Interpretation (test code = Normal 25059-7) [facility] MOLECULAR [id number] 17:40:36 Test Item Value Reference Range Interpretation Comments POCT Molecular Strep (test code = Negative Negative 91170-2) Lab Interpretation (test code = Normal 55907-3) [facility] URINALYSIS W/O SPECIFIC [id number] 14:49:00 Test Item Value Reference Range Interpretation [...] code = 3257) Negative Negative - Negative [facility] URINALYSIS W/O SPECIFIC [id number] 16:35:00 Test Item Value Reference Range Interpretation [...] (test code = 3257) Negative - Negative [facility] URINALYSIS W/O SPECIFIC [id number] 15:41:00 Test Item Value Reference Range Interpretation [...] code = 3257) n/a Negative - Negative [facility] URINALYSIS W/O SPECIFIC [id number] 15:41:00 Test Item Value Reference Range Interpretation [...] = 3257) n/a Negative - [facility] [id number] 21:58:00 Test Item Value Reference Range Interpretation [...] code = 3257) na Negative - Negative [facility]/O SPECIFIC [id number] 21:58:00 Test Item Value Reference Range Interpretation [...] code = 3257) na Negative - Negative [facility] W/O SPECIFIC [id number] 21:58:00 Test Item Value Reference Range Interpretation [...] code = 3257) na Negative - Negative [facility] [id number] 22:00:08 Test Item Value Reference Range Interpretation Comments APPEARANCE (test code = Clear Clear 9199334083) COLOR (test code = Yellow Colorless A 9484546760) PH (test code = 4.8-8.0 4875139421) SP GRAVITY (test code = 1.003-1.035 4373904821) GLU U QUAL (test code = Negative Negative 6377958396) BLOOD (test code = Negative Negative 5391098461) KETONES (test code = Negative Negative 6095554305) PROTEIN (test code = Negative Negative 2887-8) UROBILIN (test code = Normal Normal 9412539472) BILIRUBIN (test code = Negative Negative 9189397233) NITRITE (test code = Negative Negative 2878275024) LEUK VALENTINE (test code = Negative Negative 6633675285) RBC/HPF (test code = See_Comment [Autom ated message] 2723916417) The system [employer] generated this result transmitted ref erence range: 0 - 3 HP F. The reference range was not used to int erpret this result as normal/abnormal . WBC/HPF (test code = See_Comment [Autom ated message] 9499430316) The system [employer] generated this result transmitted ref erence range: 0 - 5 HP F. The reference range was not used to int erpret this result as normal/abnormal . BACTERIA (test code = Few Negative A 1835436194) MUCOUS (test code = Slight Negative LPF A 6377671957) SQ EPITH (test code = HPF 0015241142) Lab Interpretation (test Abnormal code = 87929-5) [facility] CLC OR LCC ONLY - WET [id number] 21:45:14 Test Item Value Reference Range Interpretation Comments CLUE CELLS WET PREP (test code = Moderate None Seen HPF A 6535165304) BACTERIA WET PREP (test code = Few None Seen HPF A 4545280989) WBC WET PREP (test code = Few None Seen HPF A 0023246904) RBC WET PREP (test code = None Seen None Seen HPF 6463441351) TRICHOMONAS WET PREP (test code = None Seen None Seen HPF 1559255542) YEAST WET PREP (test code = Few None Seen HPF A 2860026583) Lab Interpretation (test code = Abnormal 36614-2) [facility] URINALYSIS W/O SPECIFIC [id number] 14:51:00 Test Item Value Reference Range Interpretation [...] code = 3257) n/a Negative - Negative [facility] [id number] 13:51:00 Test Item Value Reference Range Interpretation Comments POCT PREG (test code = 1605) Positive On board controls acceptable with C Yes Line (test code = 3574) POCT PREG LOT # (test code = 3575) POCT PREG TEST DATE (test code = 357) [facility] URINALYSIS W/O SPECIFIC [id number] 13:51:00 Test Item Value Reference Range Interpretation [...] code = 3257) n/a Negative - Negative [facility] [id number] 13:51:00 Test Item Value Reference Range Interpretation Comments POCT PREG (test code = 1605) Positive On board controls acceptable with C Yes Line (test code = 3574) POCT PREG LOT # (test code = 3575) POCT PREG TEST DATE (test code = 3576) [facility] URINALYSIS W/O SPECIFIC [id number] 13:51:00 Test Item Value Reference Range Interpretation [...] code = 3257) n/a Negative - Negative [facility]
[2022-09-23] MEDS ORDERED: NA CHLORIDE 0.9% 500 ML ONE (21:20)
[2022-09-23 21:26] LABS: Absolute Lymphocytes (CBC) 2.4 K/uL (0.7-4.9); Hematocrit 29.6 % (36.0-45.0); Lymphocytes % 29.6 % (15.3-44.8); MCV 62.6 fL (80-100); MPV 8.5 fL (7.6-11.3); RBC Red Blood Cell Count 4.72 M/uL (3.86-4.86)
[2022-09-23 21:27] LABS: Anisocytosis 2+; Blood Morphology Comment NOTED (NOT SEEN); Hypochromasia 2+; Platelet Estimate ADEQ; White Blood Cell Scan OK (OK)
[2022-09-23 21:29] LABS: Protime INR 0.96
--- NOTE | 2022-09-23 21:46 | RAD REPORT ---
EXAM DESCRIPTION: RADChest Single View09/23/2022 9:29 pm CLINICAL HISTORY: SWELLING COMPARISON: Chest Single View dated 03/29/2022; Chest Single View dated 03/28/2019; Chest Pa And Lat ( 2 Views) dated 10/25/2017; CHEST SINGLE VIEW dated 10/24/2015 TECHNIQUE: Portable AP view of the chest. FINDINGS: The lungs are clear. No pneumothorax or effusion. The cardiomediastinal contours are unrem arkable. IMPRESSION: No acute cardiopulmonary process.
[2022-09-23 21:48] LABS: Albumin 2.9 g/dL (3.4-5.0); Bilirubin Direct 0.1 mg/dL (0-0.2); Bilirubin Total 0.6 mg/dL (0.2-1.0); Magnesium 2.4 mg/dL (1.6-2.4); Potassium 3.6 mmol/L (3.5-5.1); Protein, Total 7.1 g/dL (6.4-8.2); Troponin High Sensitivity 5.3 pg/mL (<58.9)
--- NOTE | 2022-09-23 21:55 | RAD REPORT ---
EXAM DESCRIPTION: CT - Head Brain Wo Cont - 09/23/2022 9:31 pm CLINICAL HISTORY: HEADACHE COMPARISON: Head Brain Wo Cont dated 03/29/2022; HEAD BRAIN W O CONTRAST dated 02/19/2009 TECHNIQUE: Noncontrast head CT images ad were obtained without IV contrast. Multiplanar reformats we re generated and reviewed. All CT scans are performed using dose optimization technique as appropriate and may include automated exposure control or mA/KV adjustment according to patient size. FINDINGS: No intracranial hemorrhage, mass, or edema. Midline structures are unremarkable. Normal ventricular caliber for age. Rosen-white matter differentiation is preserved, without evidence of acute infarct. No abnormal extra- axial fluid collections. Moderate mucosal thickening within the maxillary sinuses. Mastoid air cells are well aerated. No acute bony findings. IMPRESSION: No evidence of an acute intracranial process. Moderate inflammatory mucosal thickening within both maxillary sinuses.
--- NOTE | 2022-09-23 21:56 | RAD REPORT ---
EXAM DESCRIPTION: US - Extrem Venous W Compress Lito - 09/23/2022 9:35 pm CLINICAL HISTORY: Swelling COMPARISON: None. TECHNIQUE: Real-time sonographic evaluation of the bilateral lower extremity deep venous systems was performed. FINDINGS: Normal compressibility, flow augmentation, phasic flow and spontaneous flow is identified throughout the evaluated left and right lower extremity deep venous systems. Ability to evaluate the right saphenous femoral junction is limited, given inability to do venous compressions in that region as patient is status post recent . No intraluminal filling defects seen. IMPRESSION: No DVT in either lower extremity.
[2022-09-23] MEDS ORDERED: KETOROLAC 30 MG/ML INJ ONE (22:30)
--- NOTE | 2022-09-23 22:34 | ER ---
Nurse's Notes [facility] Name: Deborah Torres Age: 27 yrs Sex: Female : 1995 Arrival Date: 09/23/2022 Time: 16:57 Bed 13 Private MD: Diagnosis: Headache;Elevated blood-pressure reading, without diagnosis of hypertension;Edema, unspecified;Anemia, unspecified Presentation: 09/23 17:14 Chief complaint: Patient states: she had a on 09/11/2022 and is complaining of ap3 headache, back pain and feet/leg swelling since her spinal block at that time. Coronavirus screen: At this time, the client does not indicate any symptoms associated with coronavirus-19. Ebola Screen: No symptoms or risks identified at this time. Risk Assessment: Do you want to hurt yourself or someone else? Patient reports no desire to harm self or others. Onset of symptoms was September 18, 2022. 17:14 Method Of Arrival: Ambulatory ap3 17:17 Initial Sepsis Screen: Does the patient meet any 2 criteria? No. Patient's initial ap3 sepsis screen is negative. Does the patient have a suspected source of infection? No. Patient's initial sepsis screen is negative. 17:17 Acuity: NORM 3 ap3 Triage Assessment: 17:16 Headache History: The patient has had previous headaches. General: Appears in no ap3 apparent distress. Behavior is cooperative, anxious. Pain: Complains of pain in back and head Pain Pain began gradually, one week ago. Pain: Also complains of. Neuro: Level of Consciousness is awake, alert, obeys commands, Oriented to person, place, time, situation, Speech is normal. Cardiovascular: Patient's skin is warm and dry. Respiratory: Airway is patent Respiratory effort is even, unlabored, Respiratory pattern is regular, symmetrical. KILN BURNER: 17:18 LMP N/A - Recent ap3 Historical: - Allergies: 17:15 HYDROCODONE; ap3 17:15 PENICILLINS; ap3 17:15 promethazine HCl; ap3 17:15 Tape; ap3 - PMHx: 17:15 Anxiety; Asthma; Bipolar disorder; Depression; Hypertension; Migraines; Pre-eclampsia; ap3 Thyroid problem; - PSHx: 17:15 section; Tonsillectomy; ap3 - Immunization history:: Client reports having NOT received the Covid vaccine. Flu vaccine is not up to date. - Social history:: Smoking status: Patient reports the use of cigarette tobacco products, denies chronic smoking, but will smoke occasionally. Screenin:18 Abuse screen: Denies threats or abuse. Nutritional screening: No deficits noted. ap3 Tuberculosis screening: No symptoms or risk factors identified. 22:50 [facility] ED Fall Risk Assessment (Adult) History of falling in the last 3 months, kl including since admission No falls in past 3 months (0 pts) Confusion or Disorientation No (0 pts) Intoxicated or Sedated No (0 pts) Impaired Gait Mobility Assist Device Used No (0 pt) Altered Elimination No (0 pt) Score/Fall Risk Level 0 - 2 = Low Risk Oriented to surroundings, Maintained a safe environment. Assessment: 21:44 Reassessment: Patient appears in no apparent distress at this time. Patient and/or family updated on plan of care and expected duration. Pain level reassessed. Patient is alert, oriented x 3, equal unlabored respirations, skin warm/dry/pink. Patient states feeling better. Patient states symptoms have improved. General: Appears in no apparent distress. comfortable. Pain: Complains of pain in left leg. Neuro: No deficits noted. Cardiovascular: No deficits noted. Respiratory: No deficits noted. GI: No deficits noted. No signs and/or symptoms were reported involving the gastrointestinal system. : No deficits noted. No signs and/or symptoms were reported regarding the genitourinary system. EENT: No deficits noted. No signs and/or symptoms were reported regarding the EENT system. Derm: No deficits noted. No signs and/or symptoms reported regarding the dermatologic system. 22:49 Reassessment: Patient and/or family updated on plan of care and expected duration. Pain kl level reassessed. Patient is alert, oriented x 3, equal unlabored respirations, skin warm/dry/pink. Patient states feeling better. Patient states symptoms have improved. Vital Signs: 17:17 BP 143 / 95; Pulse 72; Resp 18; Temp 97.9; Pulse Ox 98% ; Weight 90.26 kg; Height 5 ft. ap3 4 in. (162.56 cm); Pain 7/10; 21:43 BP 140 / 87; Pulse 70; Resp 16; Pulse Ox 100% ; kl 22:29 BP 156 / 93; Pulse 53; Resp 16; Pulse Ox 100% on R/A; kl 17:17 Body Mass Index 34.16 (90.26 kg, 162.56 cm) ap3 ED Course: 16:57 Patient arrived in ED. as 17:17 Shawn Pollard MD is Attending Physician. emilie 17:18 Triage completed. ap3 17:18 Arm band placed on left wrist. ap3 19:44 Shawn Roberts PA is PHCP. cp 21:18 Basic Metabolic Panel Sent. bc6 21:18 CBC with Diff Sent. bc6 21:18 LFT's Sent. bc6 21:18 Magnesium Sent. bc6 21:18 NT PRO-BNP Sent. bc6 21:18 PT-INR Sent. bc6 21:18 Troponin HS Sent. bc6 21:18 Inserted saline lock: 20 gauge in left antecubital area, using aseptic technique. bc6 22:49 No provider procedures requiring assistance completed. IV discontinued, intact, kl bleeding controlled, No redness/swelling at site. Pressure dressing applied. Administered Medications: 21:42 Drug: NS 0.9% 500 ml Route: IV; Rate: bolus; Site: left antecubital; kl 22:28 Follow up: IV Status: Completed infusion; IV Intake: 500ml kl 22:28 Drug: Ketorolac 15 mg Route: IVP; Site: left antecubital; kl Medication: 21:45 VIS not applicable for this client. kl Intake: 22:28 IV: 500ml; Total: 500ml. kl Outcome: 22:33 Discharge ordered by . cp 22:50 Discharged to home ambulatory. kl 22:50 Condition: stable 22:50 Discharge instructions given to patient, Instructed on Demonstrated understanding of instructions, follow-up care, medications, Prescriptions given X 1. 22:50 Patient left the ED. kl Signatures: Libby Simmons RN RN kl Anderson, Corey, MD MD cha Martinez, Amelia as Page, Corey, PA PA cp Prokisch, Amanda, RN RN [facility] Cristine Gordon bc6
--- NOTE | 2022-09-23 22:34 | EDPHYS ---
Physician Documentation [facility] Name: Deborah Torres Age: 27 yrs Sex: Female : 1995 Arrival Date: 09/23/2022 Time: 16:57 Bed 13 Private MD: JUDY Physician Shawn Pollard HPI: 09/23 21:00 This 27 yrs old Female presents to ER via Ambulatory with complaints of Leg Swelling, cp Feet Swelling, Headache. 21:00 The patient complains of pain to the top of head and back of head. The patient cp describes the headache as aching, waxing and waning. Onset: The symptoms/episode began/occurred gradually. 21:00 The patient presents with swelling, tenderness. cp 21:00 The complaints affect the right lower leg and left lower leg. Onset: The cp symptoms/episode began/occurred gradually, increasing since recent delivery of healthy infant on 09-11-2022. Patient reports having anesthesia block performed, continued back pain, headache. 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 Flu vaccine is not up to date. - Social history:: Smoking status: Patient reports the use of cigarette tobacco products, denies chronic smoking, but will smoke occasionally. ROS: 21:05 Constitutional: Negative for body aches, chills, fever, poor PO intake. cp 21:05 Eyes: Negative for injury, pain, redness, and discharge. cp 21:05 ENT: Negative for drainage from ear(s), ear pain, sore throat, difficulty swallowing, difficulty handling secretions. 21:05 Cardiovascular: Positive for edema, Negative for chest pain, palpitations. 21:05 Respiratory: Negative for cough, shortness of breath, wheezing. 21:05 Abdomen/GI: Negative for abdominal pain, vomiting, diarrhea, constipation. 21:05 Back: Positive for pain at rest, pain with movement. 21:05 MS/extremity: Positive for swelling, tenderness, of the right lower leg and left lower leg, paresthesias to right ankle, Negative for injury or acute deformity, decreased range of motion. 21:05 Skin: Negative for cellulitis, rash. 21:05 Neuro: Positive for headache, Negative for altered mental status, dizziness, loss of consciousness, syncope, weakness. 21:05 All other systems are negative. Exam: 21:10 Constitutional: The patient appears in no acute distress, alert, awake, cp non-diaphoretic, non-toxic, well developed, well nourished, overweight 21:10 Head/Face: Normocephalic, atraumatic. cp 21:10 Eyes: Periorbital structures: appear normal, Conjunctiva: normal, no exudate, no injection, Sclera: no appreciated abnormality, Lids and lashes: appear normal, bilaterally. 21:10 ENT: External ear(s): are unremarkable, Nose: is normal, Mouth: Lips: moist, Oral mucosa: pink and intact, moist, Posterior pharynx: is normal, airway is patent, no erythema, no exudate. 21:10 Neck: ROM/movement: is normal, is supple, without pain, no range of motions limitations. 21:10 Chest/axilla: Inspection: normal, Palpation: is normal, no crepitus, no tenderness. 21:10 Cardiovascular: Rate: normal, Rhythm: regular, Edema: ankle edema, that is moderate, right ankle worse than left, JVD: is not appreciated. 21:10 Respiratory: the patient does not display signs of respiratory distress, Respirations: normal, no use of accessory muscles, no retractions, labored breathing, is not present, Breath sounds: are clear throughout, no decreased breath sounds, no stridor, no wheezing. 21:10 Abdomen/GI: Inspection: abdomen appears normal, Bowel sounds: active, all quadrants, Palpation: soft, in all quadrants, mild abdominal tenderness, in the lower abdomen along incision. 21:10 Back: CVA tenderness, is absent. 21:10 Skin: cellulitis, is not appreciated, no rash present. 21:10 Neuro: Orientation: to person, place \T\ time. Mentation: is normal, Cerebellar function: is grossly normal, Motor: moves all fours, strength is normal, Sensation: is normal. 21:57 ECG was reviewed by the Attending Physician. Vital Signs: 17:17 BP 143 / 95; Pulse 72; Resp 18; Temp 97.9; Pulse Ox 98% ; Weight 90.26 kg; Height 5 ft. ap3 4 in. (162.56 cm); Pain 7/10; 21:43 BP 140 / 87; Pulse 70; Resp 16; Pulse Ox 100% ; kl 22:29 BP 156 / 93; Pulse 53; Resp 16; Pulse Ox 100% on R/A; kl 17:17 Body Mass Index 34.16 (90.26 kg, 162.56 cm) ap3 MDM: 17:18 Patient medically screened. emilie 21:00 Differential diagnosis: dependent edema, cellulitis, anemia, electrolyte abnormality, cp PE, DVT. 22:32 Data reviewed: vital signs, nurses notes, lab test result(s), EKG, radiologic studies, cp plain films, ultrasound. 22:32 I considered the following discharge prescriptions or medication management in the emergency department Medications were administered in the Emergency Department. See MAR. Independent interpretation of the following test(s) in the Emergency Department EKG: See my EKG interpretation above X-Ray: My interpretation is chest xray image negative for infiltrates. Test considered but Not performed: CT: chest to r/o pulmonary embolism. Care significantly affected by the following chronic conditions: Hypertension, migraines. 22:32 Counseling: I had a detailed discussion with the patient and/or guardian regarding: the cp historical points, exam findings, and any diagnostic results supporting the discharge/admit diagnosis, lab results, radiology results, the need for outpatient follow up, an OB/Gyne specialist, to return to the emergency department if symptoms worsen or persist or if there are any questions or concerns that arise at home. 22:32 Response to treatment: the patient's symptoms have mildly improved after treatment, and as a result, I will discharge patient. 09/23 20:54 Order name: Basic Metabolic Panel cp 09/23 20:54 Order name: CBC with Diff cp 09/23 20:54 Order name: LFT's cp 09/23 20:54 Order name: Magnesium cp 09/23 20:54 Order name: NT PRO-BNP cp 09/23 20:54 Order name: PT-INR cp 09/23 20:54 Order name: Troponin HS cp 09/23 20:54 Order name: Urine Microscopic Only cp 09/23 21:28 Order name: CBC with Automated Diff; Complete Time: 21:34 EDMS 09/23 21:34 Interpretation: Normal except: HGB 9.2; HCT 29.6; MCV 62.6; MCH 19.4; MCHC 31.0; RDW cp 23.9. 09/23 21:28 Order name: CBC Smear Scan; Complete Time: 21:34 EDMS 09/23 21:29 Order name: Protime (+INR); Complete Time: 21:34 EDMS 09/23 21:48 Order name: Basic Metabolic Panel; Complete Time: 22:10 EDMS 09/23 22:10 Interpretation: Normal except: CL 109; CA 7.9. cp 09/23 21:48 Order name: Liver (Hepatic) Function; Complete Time: 22:10 EDMS 09/23 22:11 Interpretation: Normal except: ALK 146; ALB 2.9; GLOB 4.2; A/G 0.7. cp 09/23 21:48 Order name: Troponin High Sensitivity; Complete Time: 22:10 EDMS 09/23 22:11 Interpretation: Reviewed. 09/23 20:54 Order name: XRAY Chest (1 view) cp 09/23 20:54 Order name: EKG; Complete Time: 20:55 cp 09/23 20:54 Order name: Cardiac monitoring; Complete Time: 21:58 cp 09/23 20:54 Order name: EKG - Nurse/Tech; Complete Time: 21:58 cp 09/23 20:54 Order name: IV Saline Lock; Complete Time: 21:18 cp 09/23 20:54 Order name: Labs collected and sent; Complete Time: 21:18 cp 09/23 20:54 Order name: O2 Per Protocol; Complete Time: 21:58 cp 09/23 20:54 Order name: US Extremity Venous W Compression Lito cp 09/23 20:54 Order name: CT Head Brain wo Cont cp 09/23 21:47 Order name: RAD; Complete Time: 22:10 EDMS 09/23 22:11 Interpretation: Report reviewed. cp 09/23 21:48 Order name: NT PRO-BNP; Complete Time: 22:10 EDMS 09/23 22:11 Interpretation: NT PRO-BNP 128; Reviewed. cp 09/23 21:48 Order name: Magnesium; Complete Time: 22:10 EDMS 09/23 22:11 Interpretation: Reviewed. cp 09/23 21:55 Order name: CT; Complete Time: 22:10 EDMS 09/23 22:12 Interpretation: Report reviewed. cp 09/23 21:57 Order name: US; Complete Time: 22:10 EDMS 09/23 22:12 Interpretation: Report reviewed. cp 09/23 20:54 Order name: O2 Sat Monitoring cp 09/23 20:54 Order name: Orthostatic Blood Pressure cp 09/23 20:54 Order name: Urine Dipstick-Ancillary (obtain specimen) cp EC:57 Rate is 59 beats/min. Rhythm is regular. ND interval is normal. QRS interval is normal. cp QT interval is normal. T waves are Inverted in lead aVR. Interpreted by me. Reviewed by me. Administered Medications: 21:42 Drug: NS 0.9% 500 ml Route: IV; Rate: bolus; Site: left antecubital; 22:28 Follow up: IV Status: Completed infusion; IV Intake: 500ml 22:28 Drug: Ketorolac 15 mg Route: IVP; Site: left antecubital; Disposition Summary: 09/23/22 22:33 Discharge Ordered Location: Home cp Problem: new cp Symptoms: have improved cp Condition: Stable cp Diagnosis - Headache cp - Elevated blood-pressure reading, without diagnosis of hypertension cp - Edema, unspecified cp - Anemia, unspecified cp Followup: cp - With: Private Physician - When: 2 - 3 days - Reason: Recheck today's complaints Discharge Instructions: - Discharge Summary Sheet cp - Anemia cp - General Headache Without Cause cp - How to Take Your Blood Pressure, [id number] cp - Form - Blood Pressure Record Sheet cp - Peripheral Edema cp - How to Use Compression Stockings cp Forms: - Medication Reconciliation Form cp - Thank You Letter cp - Antibiotic Education cp - Prescription Opioid Use cp Prescriptions: - Ibuprofen 800 mg Oral Tablet - take 1 tablet by ORAL route every 8 hours As needed take with food; 30 tablet; cp Refills: 0, Product Selection Permitted Signatures: Dispatcher [employer] Libby Cardenas RN RN kl Anderson, Corey, MD MD cha Page, Corey, PA PA cp Prokisch, Amanda RN RN ap3
[2022-09-23 23:13] VITALS: TEMP 97.9
[2022-09-23 23:14] VITALS: O2SAT 100
[2022-09-23 23:15] VITALS: BP 156/93
--- NOTE | 2022-09-24 15:21 | EKG ---
Test Date: 2022-09-23 Test Time: 21:51:08 [facility] Director: FAM MEASUREMENT RESULTS: Intervals: Rate: 59 MA: 134 QRSD: 78 QT: 408 QTc: 403 [place]: P: 31 MA: 134 QRS: 92 T: 65 INTERPRETIVE STATEMENTS: Sinus bradycardia Rightward axis Borderline ECG Compared to ECG 10/24/2015 18:08:04 Right-axis deviation now present Sinus tachycardia no longer present Electronically Signed On 09-24-22 15:19:21 SMALL APPLIANCE ASSEMBLY SUPERVISOR by Adebayo Zamora
== END 2022-09-23 22:50 | disposition home or self-care (01) ==
LOC: ER 16:52
DX: R51.9 Headache, unspecified (principal); I10 Essential (primary) hypertension; R60.9 Edema, unspecified; D64.9 Anemia, unspecified; F17.210 Nicotine dependence, cigarettes, uncomplicated; Z88.0 Allergy status to penicillin; Z88.5 Allergy status to narcotic agent; Z88.8 Allergy status to other drugs, medicaments and biological substances; Z91.048 Other nonmedicinal substance allergy status
CPT/HCPCS: 85025; 80048; 36415; 83735; 85610; 80076; 84484; 83880; 70450; 71045; 93970; J7040; 93005

== ENCOUNTER 2022-12-01 08:17 | Emergency (ER) | payer OTHER ==
--- NOTE | 2022-12-01 08:37 | ER ---
Nurse's Notes [facility] [place] Name: Deborah Torres Age: 27 yrs Sex: Female : 1995 Arrival Date: 12/01/2022 Time: 08:17 Bed 6 Private MD: Diagnosis: Hordeolum externum right lower eyelid;Other conjunctivitis Presentation: 12/01 08:28 Chief complaint: Patient states: Stye to L lower eyelid started 3 days ago. Tried OTC ll1 stye eye drops and the site got worse. No fever. Coronavirus screen: Vaccine status: Patient reports being unvaccinated. Client denies travel out of the [place] in the last 14 days. At this time, the client does not indicate any symptoms associated with coronavirus-19. Ebola Screen: Patient denies travel to an Ebola-affected area in the 21 days before illness onset. Initial Sepsis Screen: Does the patient meet any 2 criteria? No. Patient's initial sepsis screen is negative. Does the patient have a suspected source of infection? Yes: Skin breakdown/wound. Risk Assessment: Do you want to hurt yourself or someone else? Patient reports no desire to harm self or others. Onset of symptoms was November 28, 2022. 08:28 Method Of Arrival: Ambulatory ll1 08:28 Acuity: NORM 4 ll1 Triage Assessment: 08:29 General: Appears uncomfortable, Behavior is calm, cooperative, appropriate for age. ll1 Pain: Complains of pain in right eye Pain currently is 10 out of 10 on a pain scale. Derm: Reports stye R eye. Historical: - Allergies: 08:27 HYDROCODONE; ll1 08:27 PENICILLINS; ll1 08:27 promethazine HCl; ll1 08:27 Tape; ll1 - PMHx: 08:27 Anxiety; Asthma; Bipolar disorder; Depression; Hypertension; Migraines; Pre-eclampsia; ll1 Thyroid problem; - PSHx: 08:27 section; Tonsillectomy; ll1 - Immunization history:: Client reports having NOT received the Covid vaccine. - Social history:: Smoking status: Patient reports the use of cigarette tobacco products, denies chronic smoking, but will smoke occasionally. Screenin:[facility] ED Fall Risk Assessment (Adult) History of falling in the last 3 months, cm9 including since admission No falls in past 3 months (0 pts) Confusion or Disorientation No (0 pts) Intoxicated or Sedated No (0 pts) Impaired Gait No (0 pts) Mobility Assist Device Used No (0 pt) Altered Elimination No (0 pt) Score/Fall Risk Level 0 - 2 = Low Risk Oriented to surroundings, Maintained a safe environment, Educated pt \T\ family on fall prevention, incl call for assistance when getting out of bed, Assessed \T\ reinforced patient's understanding of fall precautions, Hourly rounding (assess needs \T\ fall precautionary measures) done. Abuse screen: Denies threats or abuse. Nutritional screening: No deficits noted. Tuberculosis screening: No symptoms or risk factors identified. Assessment: 08:50 General: Appears in no apparent distress. Behavior is calm, cooperative. Pain: cm9 Complains of pain in right eye Pain does not radiate. Pain currently is 10 out of 10 on a pain scale. Neuro: Level of Consciousness is awake, alert, obeys commands, Oriented to person, place, time, situation. Cardiovascular: Capillary refill < 3 seconds Patient's skin is warm and dry. Respiratory: Airway is patent Respiratory effort is even, unlabored. EENT: Eyes are tearing on outer aspect of conjuctiva of right eye, iris of right eye and inner aspect of conjuctiva of right eye Sclera/Cornea are reddened in outer aspect of conjuctiva of right eye, iris of right eye and inner aspect of conjuctiva of right eye Lid(s) w/ stye noted iris of right eye and right lower eyelid. Vital Signs: 08:28 BP 153 / 92; Pulse 85; Resp 16; Temp 98.1(O); Pulse Ox 100% on R/A; Weight 86.18 kg; ll1 Height 5 ft. 4 in. ; Pain 10/10; 09:22 BP 121 / 73; Pulse 88; Resp 16; Pulse Ox 99% on R/A; Pain 2/10; cm9 08:28 Body Mass Index 32.61 (86.18 kg, 162.56 cm) ll1 08:28 Pain Scale: Adult ll1 09:22 Pain Scale: Adult cm9 ED Course: 08:19 Patient arrived in ED. rg4 08:21 [facility] kb 08:21 Luke Hi MD is Attending Physician. kb 08:27 Arm band placed on Patient placed in an exam room, on a stretcher. ll1 08:29 Triage completed. ll1 08:35 Kelly Crowley, RN is Primary Nurse. cm9 08:50 Patient has correct armband on for positive identification. Allergy band placed. Bed in cm9 low position. Call light in reach. Side rails up X 1. 08:50 No provider procedures requiring assistance completed. Patient did not have IV access cm9 during this emergency room visit. Administered Medications: 08:50 Drug: predniSONE PO 40 mg Route: PO; cm9 08:50 Drug: Famotidine PO 20 mg Route: PO; cm9 Medication: 08:50 VIS not applicable for this client. cm9 Outcome: 08:36 Discharge ordered by . kb 08:50 Discharged to home ambulatory. cm9 08:50 Condition: good 08:50 Discharge instructions given to patient. 09:27 Patient left the ED. cm9 Signatures: Tea Hooper, PEDIATRIC NEUROLOGIST-C PEDIATRIC NEUROLOGIST-Anna Garcia rg4 Geeta Simmons, RN RN 1 Kelly Crowley, RN RN cm9
--- NOTE | 2022-12-01 08:37 | EDPHYS ---
Physician Documentation [facility] Name: Deborah Torres Age: 27 yrs Sex: Female : 1995 Arrival Date: 12/01/2022 Time: 08:17 Bed 6 Private MD: ED Physician Luke Hi HPI: 12/01 08:34 This 27 yrs old Female presents to ER via Ambulatory with complaints of Eye Swelling, kb Facial Swelling. 08:34 The patient is experiencing pain, redness, The patient sustained None. to the right kb eye. Onset: The symptoms/episode began/occurred yesterday. Duration: the symptoms are continuous. Aggravated by nothing. Alleviated by nothing. Associated signs and symptoms: Pertinent positives: None. Patient wears glasses. Severity of symptoms: At their worst the symptoms were moderate in the emergency department the symptoms are unchanged. The patient has not experienced similar symptoms in the past. The patient has not recently seen a physician. Pt reports she developed a stye to right lower lid so she has been doing warm compresses. Last night her mother brought her some eye drops for styes and she started having burning, swelling and itching after putting them in. States she took benadryl and symptoms got better, but are not completed gone. . Historical: - Allergies: 08:27 HYDROCODONE; ll1 08:27 PENICILLINS; ll1 08:27 promethazine HCl; ll1 08:27 Tape; ll1 - PMHx: 08:27 Anxiety; Asthma; Bipolar disorder; Depression; Hypertension; Migraines; Pre-eclampsia; ll1 Thyroid problem; - PSHx: 08:27 section; Tonsillectomy; ll1 - Immunization history:: Client reports having NOT received the Covid vaccine. - Social history:: Smoking status: Patient reports the use of cigarette tobacco products, denies chronic smoking, but will smoke occasionally. ROS: 08:33 Constitutional: Negative for fever, chills, and weight loss. kb 08:33 Eyes: Positive for itching, pain, stye. 08:33 All other systems are negative. Exam: 08:33 Constitutional: This is a well developed, well nourished patient who is awake, alert, kb and in no acute distress. Head/Face: Normocephalic, atraumatic. ENT: Moist Mucous membranes Cardiovascular: Regular rate and rhythm with a normal S1 and S2. No gallops, murmurs, or rubs. No pulse deficits. Respiratory: Respirations even and unlabored. No increased work of breathing. Talking in full sentences Skin: Warm, dry with normal turgor. Normal color. MS/ Extremity: Pulses equal, no cyanosis. Neurovascular intact. Full, normal range of motion. Neuro: Awake and alert, GCS 15, oriented to person, place, time, and situation. Moves all extremities. Normal gait. 08:33 Eyes: Periorbital structures: appear normal, Pupils: equal, round, and reactive to light and accomodation, Extraocular movements: intact throughout, Conjunctiva: injected, in the right eye, Lids and lashes: stye, seen on the right lid. Vital Signs: 08:28 BP 153 / 92; Pulse 85; Resp 16; Temp 98.1(O); Pulse Ox 100% on R/A; Weight 86.18 kg; ll1 Height 5 ft. 4 in. ; Pain 10/10; 09:22 BP 121 / 73; Pulse 88; Resp 16; Pulse Ox 99% on R/A; Pain 2/10; cm9 08:28 Body Mass Index 32.61 (86.18 kg, 162.56 cm) ll1 08:28 Pain Scale: Adult ll1 09:22 Pain Scale: Adult cm9 MDM: 08:21 Patient medically screened. kb 08:33 Differential diagnosis: Corneal abrasion of Corneal ulcer of Foreign body in [facility], allergic reaction. Data reviewed: vital signs, nurses notes. Counseling: I had a detailed discussion with the patient and/or guardian regarding: the historical points, exam findings, and any diagnostic results supporting the discharge/admit diagnosis, the need for outpatient follow up, an opthalmologist, to return to the emergency department if symptoms worsen or persist or if there are any questions or concerns that arise at home. Administered Medications: 08:50 Drug: predniSONE PO 40 mg Route: PO; cm9 08:50 Drug: Famotidine PO 20 mg Route: PO; cm9 Disposition: 11:02 Co-signature as Attending Physician, Luke Hi MD I reviewed the patient's care rn provided by the Advanced Practice Provider and agree with the diagnosis and treatment plan. Disposition Summary: 12/01/22 08:36 Discharge Ordered Location: Home kb Condition: Stable kb Diagnosis - Hordeolum externum right lower eyelid kb - Other conjunctivitis kb Followup: kb - With: Emergency Department - When: As needed - Reason: Worsening of condition Followup: kb - With: Private Physician - When: 2 - 3 days - Reason: Recheck today's complaints, Continuance of care, Re-evaluation by your physician Discharge Instructions: - Discharge Summary Sheet nicki - Baudilio kb Forms: - Work release form kb - Medication Reconciliation Form kb - Thank You Letter kb - Antibiotic Education kb - Prescription Opioid Use kb Prescriptions: - Erythromycin 5 mg/gram (0.5 %) Ophthalmic Ointment - apply 1 centimeter by OPHTHALMIC route 3 times per day for 7 days; 1 unit; kb Refills: 0, Product Selection Permitted Signatures: Tea Hooper FNP-C FNP-Ckb Nieto, Roman, MD MD rn Lewis, Lynsay, RN RN ll1 Kelly Crowley RN RN cm9
--- OUTSIDE RECORDS SUMMARY | 2022-12-01 08:44 | XMS REPORT | Continuity of Care Document ---
:1995 Author Organization [facility] t Address [address] [facility] [address] [place] [address] Care Team Providers Name Role Phone Pcp, Patient Does Not Have A Primary Care Physician [phone] REBEKAH VAZ Attending Clinician Unavailable Doctor Unassigned, Croom Attending Clinician Unavailable Rebekah Vaz MD Attending Clinician Ghanshyam DAWSON Attending Clinician Unavailable Ghanshyam Denise Attending Clinician Kip Ware Attending Clinician Unknown, Attending Attending Clinician Unavailable KIP DANIEL Attending Clinician Unavailable Severo Pal RN Attending Clinician Unavailable ANGELO RODRIGUEZ Attending Clinician Unavailable ANGELO RODRIGUEZ Attending Clinician Unavailable Niki Mann RN Attending Clinician Unavailable Fontanilla III, KNITTING INSPECTOR, R Attending Clinician Jereime Baugh MD Attending Clinician [phone] Pob, Ad[facility] Lab Main Attending Clinician Unavailable Ultrasound, Ang-Mfm Attending Clinician Unavailable Shawn Levy DO Attending Clinician Severo Mcclellan MD Attending Clinician SEVERO MCCLELLAN Attending Clinician Unavailable SEVERO MCCLELLAN Attending Clinician Unavailable Kyle RN, Manuel Álvarez Attending Clinician Unavailable Cierra MCKINLEY, Valarie Attending Clinician Unavailable Johann MCKINLEY, Trinity Álvarez Attending Clinician Unavailable CECELIA VOGEL Attending Clinician Unavailable EbCecelia Juarez Attending Clinician Provider, [facility] Attending Clinician Unavailable ROD PRICE Attending Clinician Unavailable SUSANNA WOO Attending Clinician Unavailable Susanna Woo MD Attending Clinician [phone] Pcp, Patient Does Not Have A Attending Clinician [phone], [facility] Attending Clinician Unavailable KASHIF RYAN Attending Clinician Unavailable Kashif Solano Attending Clinician King ALLISON MD, James C Attending Clinician CAROLYN AMATO Attending Clinician Unavailable Carolyn Amato DO Attending Clinician KASSIDY PARSONS Attending Clinician Unavailable Kassidy Parsons MD Attending Clinician MAICO SAINI Attending Clinician Unavailable Makayla Lechuga Attending Clinician Unavailable Maico Saini MD Attending Clinician Jennifer Schultz RN Attending Clinician Unavailable JOHNNA CHOWDHURY Attending Clinician Unavailable Hortencia, Poncho Berry M[facility] Attending Clinician Unavailable Fantasma Lorenzo MD, Johnna Attending Clinician [phone] Ultrasound, Adc Mfm Attending Clinician Unavailable JULIAN ELENA Attending Clinician Unavailable Ulices GOTTLIEB, Julian Austin Attending Clinician Rod Price MD Attending Clinician Lab, Ang - Db Attending Clinician Unavailable Nurse, tish [facility] Attending Clinician Unavailable 1, [facility] Usg Room Attending Clinician Unavailable Mayo MCKINLEY, Christine Attending Clinician Unavailable Aydin Ferrera MD Attending Clinician 2, [facility] Usg Room Attending Clinician Unavailable Jamila Zaldivar MD Attending Clinician Nurse, [facility] Attending Clinician Unavailable Ana Cristina Coates RN Attending Clinician Unavailable Conchita Hoskins PA-C Attending Clinician Wicoh Boateng DO Attending Clinician Nurse, [facility] [...] Unavailable LIBBY GR Attending Clinician Unavailable Simón SUPERVISOR DIE CASTINGLibby Colón Attending Clinician Soni Rivera Attending Clinician MUKUND SOTO Attending Clinician Unavailable Charles SUPERVISOR DIE CASTINGMukund Attending Clinician ERIC MOCK Attending Clinician Unavailable Eric Osorio Attending Clinician AMANDA CHINCHILLA Attending Clinician Unavailable Hill Barfield MD Attending Clinician Adrián Parikh MD Attending Clinician TAB KERNS Attending Clinician Unavailable Lab, Ang-Rmchp Attending Clinician Unavailable Visit, [facility] Nurse Attending Clinician Unavailable Ang SNOWP, Kathryn Miranda Attending Clinician Fellow, [facility] Attending Clinician Unavailable Jurgen MCKINLEY, Chuy Attending Clinician Unavailable Bonnie [facility], Tab Guerrero Attending Clinician [phone] Damien MCKINLEY, Ellei Zhao Attending Clinician Unavailable Franklin GOTTLIEB, Kandi Attending Clinician Fish GOTTLIEB, Brandon Miranda Attending Clinician Diana GOTTLIEB, Tammy Garcias Attending Clinician ROBERT HARVEY Attending Clinician Unavailable Roberth GOTTLIEB, Emmanuel Mckeon Attending Clinician Cynthia GOTTLIEB, Maldonado Jacobo Attending Clinician Ana [facility], Rhonda Howe Attending Clinician Risk, Dwx-Bcpgm-Ex/High Attending Clinician Unavailable Dee [facility], Onelia Pan Attending Clinician Raju_P Attending Clinician Unavailable SUSANNA WOO Admitting Clinician Unavailable JAMILA ZALDIVAR Admitting Clinician Unavailable SEVERO MCCLELLAN Admitting Clinician Unavailable Ghanshyam DAWSON Admitting Clinician Unavailable REBEKAH VAZ Admitting Clinician Unavailable Rebekah Vaz MD Admitting Clinician Susanna Woo MD Admitting Clinician [phone] CAROLYN AMATO Admitting Clinician Unavailable Jamila Zaldivar MD Admitting Clinician Julian Elena MD Admitting Clinician Raju_P Admitting Clinician Unavailable Payers Payer Name Policy Type Policy Number Effective Date Expiration Date S dave [employer] [id number] 2020 00:00:00 Problems Condition Condition Condition Status Onset Resolution Last Treating Co mments Source Name Details Category Date Date Treatment Clinician Date Liveborn Liveborn Disease Active Unive rs , of infant, of 2-09 it y of merlos merlos 00:00: Mel zhao , , 00 Me dical born in born in [facility] hospital by by delivery delivery Tubal Tubal Disease Active Univers ligation ligation 1-27 [place] [facility] Chronic Chronic Disease Active 2021-08 Univers hypertensi hypertensi 2-29 it y of on during on during 00:00: Mel zhao 00 [facility] Round Round Disease Active Univers ligament ligament 9-30 ity of pain pain 00:00: [place] 00 [facility] History of History of Disease Active U nivers 6-30 ity of delivery, delivery, 00:00: Mel zhao currently currently 00 [facility] History of History of Disease Active U nivers miscarriag miscarriag 6-27 it y of e, e, 00:00: [place] currently currently 00 [facility] Tobacco Tobacco Disease Active Univers abuse abuse 6-27 ity of 00:00: [place] [facility] Previous Previous Disease Active Unive rs 9 ity of section section 00:00: [place] 00 [facility] 38 weeks 38 weeks Disease Active Unive rs gestation gestation 8-29 ity of of of 00:00: [place] 00 [facility] COVID-19 COVID-19 Disease Active Unive rs virus IgG virus IgG 8-18 ity of antibody antibody 00:00: [place] detected detected 00 Medica l Branch High risk High risk Disease Active Uni vers , , 7-20 [place] y of antepartum antepartum [place] [facility] Marijuana Marijuana Disease Active Uni vers use use 1-19 ity of 00:00: [place] 00 [facility] History of History of Disease Active U [...] nodule nodule 7-15 ity of 00:00: [place] [facility] Asthma Asthma Disease Active Overview: Univer s affecting affecting 2-16 Formattin i ty of 00:00: [place] of this [place] third in third 00 note Medica l trimester trimester might be Br anch different from the original. Dx at age 6-7. Inhaler combivent , albuterol nebulizer and xopinex.I CD10 Diagnosis Term Scrape Gatherer Utility Anxiety Anxiety Disease Active Overview: Univ [...] 00:00: Medical Branch Adhesive Propensi Active Rash Univer s Tape-Fannie ty to 3-08 ity of icones adverse 00:00: [place] reaction Medical s Branch ADHESIVE DRUG Active Rash Univers TAPE-FANNIE 3-08 ity of ICONES 00:00: Medical Branch Hydrocod Drug Active Itching itching Univer s one Allergy 8-27 ity of 00:00: [address] HYDROCOD DRUG Active Low Rash 2011- Univers ONE INGREDI 8-27 ity of 00:00: [address] Social History Social Habit Start Date Stop Date Quantity Comments Source ASSERTION 2022-01-02 University of 00:00:00 [facility] Exposure to 2022-09-30 2022-10-10 Not sure [facility] SARS-CoV-2 (event) 00:00:00 10:25:00 [facility] Alcohol intake 2022-08-14 2022-08-14 0 /d University of 00:00:00 00:00:00 [facility] Cigarettes smoked 2022-02-27 2022-02-27 Univers ity of current (pack per 00:00:00 00:00:00 [facility] ) - Reported Branch Cigarette 2022-02-27 2022-02-27 University of pack-years 00:00:00 00:00:00 [facility] Tobacco use and 2022-02-27 2022-02-27 Smokeless Universit y of exposure 00:00:00 00:00:00 tobacco non-user [facility] Tobacco Comment 2022-02-27 2022-02-27 2-3 cig /day Univers ity of 00:00:00 00:00:00 [facility] History of tobacco 2020-08-14 Cigarette Smoker University of use 00:00:00 [facility] Sex Assigned At [address] [facility] 00:00[facility]00 [facility]00 [facility] Smoking Status Start Date Stop Date Source Smokes tobacco daily 2022-02-27 00:00:00 Univers ity of [place] [facility] Medications Ordered Filled Start Stop Current Ordering Indication Dosage Frequency Signature Comments Components Source Medication Medication Date Date Medication? Clinician (SIG) Name Name NaCl 0.9% 2022- Yes 1000mL at 999 Uni vers (NS) bolus 10-06 mL/hr, ity of infusion 23:45: 11:44 1,000 mL, Marty as 1,000 mL 00 :00 IV Medical Infusion, Branch ONCE, 1 dose, On 10/06/22 at 1745, STAT ketorolac 2022- No 15mg 15 mg, Unive rs (TORADOL) 10-06 Slow IV ity of injection 21:45: 21:25 Push, [place] 15 mg 00 :00 ONCE, 1 Medical dose, On Branch Thu10/06/22 at 1545, WENDI iopamidol 2022- No [id number] 100mL 100 mL, Univers (ISOVUE 10-06 Intravenou ity o f 370-500 mL) 21:14: 21:13 s, ONCE, 1 [place] injection 00 :00 dose, On Medica l 100 mL Thu10/06/22 Branch at 1530, Routine cefTRIAXone 2022- No 1000mg 1,000 mg, Univers (ROCEPHIN) 10-06 IV ity of 1,000 mg in 20:45: 22:56 Piggyback, [place] NaCl 0.9% 00 :00 ONCE, 1 Medical (NS) 100 mL dose, On Bran ch MINI-BAG Thu10/06/22 at 1445, Administer over 30 Minutes, 100 mL
Reas on for Anti-Infec tive: Documented Infection< br>Documen vivek Infection Site: Urine<br&g t;Duration of Therapy: 7 days cephALEXin 2022- Yes [id number] 500mg Take 1 Univers (KEFLEX) 10-06 capsule by ity of 500 mg 00:00: 04:59 mouth 4 [place] capsule 00 :00 (four) Medical times Branch daily for 10 days. cephALEXin 2022- Yes [id number] 500mg Take 1 Univers (KEFLEX) 10-06 capsule by ity of 500 mg 00:00: 04:59 mouth 4 [place] capsule 00 :00 (four) Medical times Branch daily for 10 days. cephALEXin 2022- Yes [id number] 500mg Take 1 Univers (KEFLEX) 10-06 capsule by ity of 500 mg 00:00: 04:59 mouth 4 [place] capsule 00 :00 (four) Medical times Branch daily for 10 days. cephALEXin 2022- Yes [id number] 500mg Take 1 Univers (KEFLEX) 10-06 capsule by ity of 500 mg 00:00: 04:59 mouth 4 [place] capsule 00 :00 (four) Medical times Branch daily for 10 days. cephALEXin 2022- Yes [id number] 500mg Take 1 Univers (KEFLEX) 10-06-17 capsule by ity of 500 mg 00:00: 04:59 mouth 4 [place] capsule 00 :00 (four) [facility] daily for 10 days. cefdinir 2022-0 2022- Yes [id number] 300mg Take 1 U nivers 300 mg 10-06-14 capsule by ity of capsule 00:00: 04:59 mouth in [place] 00 :00 the [facility] morning [place] and 1 capsule in the evening. Do all this for 7 days. cefdinir 2022-0 2022- Yes [id number] 300mg Take 1 U nivers 300 mg 10-06-14 capsule by ity of capsule 00:00: 04:59 mouth in [place] 00 :00 the [facility] morning [place] and 1 capsule in the evening. Do all this for 7 days. cefdinir 2022-2022- Yes [id number] 300mg Take 1 U nivers 300 mg 10-0614 capsule by ity of capsule 00:00: 04:59 mouth in [place] 00 :00 the [facility] and 1 capsule in the evening. Do all this for 7 days. ibuprofen 2022-0 Yes 600mg 600 mg, Univ ers (IBU) 2-11 Oral, Q6H ity of tablet 600 06:00: ABX, First [place] mg 00 dose on [facility] 09/13/22 at 0000, Until Discontinu ed, Routine ibuprofen 2022-0 Yes 600mg 600 mg, Univ ers (IBU) 2-11 Oral, Q6H ity of tablet 600 06:00: ABX, First [place] mg 00 dose on [facility] 09/13/22 at 0000, Until Discontinu ed, Routine cetirizine 2022-0 Yes 5mg 5 mg, Univer s (ZYRTEC) 2-10 Oral, ity of tablet 5 mg 15:00: [place]ILY[place] First [place] Medical on Thu [place] 09/12/22 at 0900, Until Discontinu ed, Routine cetirizine 3-0 Yes 5mg 5 mg, Univer s (ZYRTEC) 2-10 Oral, ity of tablet 5 mg 15:00: DAILY, [place] First dose Medical on Thu [place] 09/12/22 at 0900, Until Discontinu ed, Routine [...] 650 00 dose on Medica l mg [facility] 09/11/22 Branch at 1999, Until Discontinu ed, Routine acetaminoph 0 Yes 650mg 650 mg, Un mohamud en 2-10 Oral, Q6H ity of (TYLENOL) 02:00: ABX, [place] tablet 650 00 dose on Medica l mg [facility] 09/11/22 Branch at 1999, Until Discontinu ed, Routine acetaminoph 2022-0 Yes [id number] 650mg Take 2 Univers en 325 mg 2-10 103 tablets by ity of tablet 00:00: mouth [place] 00 every 6 Medical (six) Branch hours as needed for Pain (scale 1-3) or Pain (scale 4-6). 2022-0 Yes [id number] 1{tbl} Take 1 Univers vitamin 2-10 103 tablet by ity of w/FA tablet 00:00: mouth in [place] 00 the Medical morning. Branch docusate 2022-0 Yes [id number] 200mg Take 2 Univers 100 mg 2-10 103 capsules ity of capsule 00:00: by mouth [place] 00 once daily Medical as needed Branch for Constipati on. ferrous 2022-0 Yes [id number] 325mg Take 1 Univers sulfate 325 2-10 103 tablet by ity of mg (65 mg 00:00: [place] iron[place] 00 the Medical tablet morning Branch and 1 tablet in the evening. ibuprofen 2022-0 Yes [id number] 600mg Take 1 Univers 600 mg 2-10 103 tablet by ity of tablet 00:00: mouth [place] 00 every 6 Medical (six) Branch hours as needed (Pain). Take with food or milk. acetaminoph 2022-0 Yes [id number] 650mg Take 2 Univers en 325 mg 2-10 103 tablets by ity of tablet 00:00: mouth [place] 00 every 6 Medical (six) Branch hours as needed for Pain (scale 1-3) or Pain (scale 4-6). 2022-0 Yes [id number] 1{tbl} Take 1 Univers vitamin 2-10 103 tablet by ity of w/FA tablet 00:00: mouth in [place] 00 the Medical morning. Branch docusate 2022-0 Yes [id number] 200mg Take 2 Univers 100 mg 2-10 103 capsules ity of capsule 00:00: by mouth [place] 00 once daily Medical as needed Branch for Constipati on. ferrous 2022-0 Yes [id number] 325mg Take 1 Univers sulfate 325 2-10 103 tablet by ity of mg (65 mg 00:00: [place] iron[place] 00 the Medical tablet morning Branch and 1 tablet in the evening. ibuprofen 2022-0 Yes [id number] 600mg Take 1 Univers 600 mg 2-10 103 tablet by ity of tablet 00:00: mouth [place] 00 every 6 Medical (six) Branch hours as needed (Pain). Take with food or milk. acetaminoph 2022-0 Yes [id number] 650mg Take 2 Univers en 325 mg 2-10 103 tablets by ity of tablet 00:00: mouth [place] 00 every 6 Medical (six) Branch hours as needed for Pain (scale 1-3) or Pain (scale 4-6). 2022-0 Yes [id number] 1{tbl} Take 1 Univers vitamin 2-10 103 tablet by ity of w/FA tablet 00:00: mouth in [place] 00 the Medical morning. Branch docusate 2022-0 Yes [id number] 200mg Take 2 Univers 100 mg 2-10 103 capsules ity of capsule 00:00: by mouth [place] 00 once daily Medical as needed Branch for Constipati on. ferrous 2022-0 Yes [id number] 325mg Take 1 Univers sulfate 325 2-10 103 tablet by ity of mg (65 mg 00:00: [place] iron[place] 00 the Medical tablet morning Branch and 1 tablet in the evening. ibuprofen 2022-0 Yes [id number] 600mg Take 1 Univers 600 mg 2-10 103 tablet by ity of tablet 00:00: mouth [place] 00 every 6 Medical (six) Branch hours as needed (Pain). Take with food or milk. acetaminoph 2022-0 Yes [id number] 650mg Take 2 Univers en 325 mg 2-10 103 tablets by ity of tablet 00:00: mouth [place] 00 every 6 Medical (six) Branch hours as needed for Pain (scale 1-3) or Pain (scale 4-6). 2022-0 Yes [id number] 1{tbl} Take 1 Univers vitamin 2-10 103 tablet by ity of w/FA tablet 00:00: mouth in [place] 00 the Medical morning. Branch docusate 0 Yes [id number] 200mg Take 2 Univers 100 mg 2-10 103 capsules ity of capsule 00:00: by mouth [place] 00 once daily Medical as needed Branch for Constipati on. ferrous 0 Yes [id number] 325mg Take 1 Univers sulfate 325 2-10 103 tablet by ity of mg (65 mg 00:00: [place] iron[place] 00 the Medical tablet morning Branch and 1 tablet in the evening. ibuprofen 2022-0 Yes [id number] 600mg Take 1 Univers 600 mg 2-10 103 tablet by ity of tablet 00:00: mouth [place] 00 every 6 Medical (six) Branch hours as needed (Pain). Take with food or milk. acetaminoph 2022-0 Yes [id number] 650mg Take 2 Univers en 325 mg 2-10 103 tablets by ity of tablet 00:00: mouth [place] 00 every 6 Medical (six) Branch hours as needed for Pain (scale 1-3) or Pain (scale 4-6). 2022-0 Yes [id number] 1{tbl} Take 1 Univers vitamin 2-10 103 tablet by ity of w/FA tablet 00:00: mouth in [place] 00 the Medical morning. Branch docusate 2022-0 Yes [id number] 200mg Take 2 Univers 100 mg 2-10 103 capsules ity of capsule 00:00: by mouth [place] 00 once daily Medical as needed Branch for Constipati on. ferrous 2022-0 Yes [id number] 325mg Take 1 Univers sulfate 325 2-10 103 tablet by ity of mg (65 mg 00:00: [place] iron[place] 00 the Medical tablet morning Branch and 1 tablet in the evening. ibuprofen 2022-0 Yes [id number] 600mg Take 1 Univers 600 mg 2-10 103 tablet by ity of tablet 00:00: mouth [place] 00 every 6 Medical (six) Branch hours as needed (Pain). Take with food or milk. acetaminoph 2022-0 Yes [id number] 650mg Take 2 Univers en 325 mg 2-10 103 tablets by ity of tablet 00:00: mouth [place] 00 every 6 Medical (six) Branch hours as needed for Pain (scale 1-3) or Pain (scale 4-6). 2022-0 Yes [id number] 1{tbl} Take 1 Univers vitamin 2-10 103 tablet by ity of w/FA tablet 00:00: mouth in [place] 00 the Medical morning. Branch docusate 2022-0 Yes [id number] 200mg Take 2 Univers 100 mg 2-10 103 capsules ity of capsule 00:00: by mouth [place] 00 once daily Medical as needed Branch for Constipati on. ferrous 2022-0 Yes [id number] 325mg Take 1 Univers sulfate 325 2-10 103 tablet by ity of mg (65 mg 00:00: [place] iron[place] 00 the Medical tablet morning Branch and 1 tablet in the evening. ibuprofen 2022-0 Yes [id number] 600mg Take 1 Univers 600 mg 2-10 103 tablet by ity of tablet 00:00: mouth [place] 00 every 6 Medical (six) Branch hours as needed (Pain). Take with food or milk. acetaminoph 2022-0 Yes [id number] 650mg Take 2 Univers en 325 mg 2-10 103 tablets by ity of tablet 00:00: mouth [place] 00 every 6 Medical (six) Branch hours as needed for Pain (scale 1-3) or Pain (scale 4-6). 2022-0 Yes [id number] 1{tbl} Take 1 Univers vitamin 2-10 103 tablet by ity of w/FA tablet 00:00: mouth in [place] 00 the Medical morning. Branch docusate 2022-0 Yes [id number] 200mg Take 2 Univers 100 mg 2-10 103 capsules ity of capsule 00:00: by mouth [place] 00 once daily Medical as needed Branch for Constipati on. ferrous 2022-0 Yes [id number] 325mg Take 1 Univers sulfate 325 2-10 103 tablet by ity of mg (65 mg 00:00: [place] iron[place] 00 the Medical tablet morning Branch and 1 tablet in the evening. ibuprofen 2022-0 Yes [id number] 600mg Take 1 Univers 600 mg 2-10 103 tablet by ity of tablet 00:00: mouth [place] 00 every 6 Medical (six) Branch hours as needed (Pain). Take with food or milk. acetaminoph 2022-0 Yes [id number] 650mg Take 2 Univers en 325 mg 2-10 103 tablets by ity of tablet 00:00: mouth [place] 00 every 6 Medical (six) Branch hours as needed for Pain (scale 1-3) or Pain (scale 4-6). 2022-0 Yes [id number] 1{tbl} Take 1 Univers vitamin 2-10 103 tablet by ity of w/FA tablet 00:00: mouth in [place] 00 the Medical morning. Branch docusate 2022-0 Yes [id number] 200mg Take 2 Univers 100 mg 2-10 103 capsules ity of capsule 00:00: by mouth [place] 00 once daily Medical as needed Branch for Constipati on. ferrous 2022-0 Yes [id number] 325mg Take 1 Univers sulfate 325 2-10 103 tablet by ity of mg (65 mg 00:00: [place] iron[place] 00 the Medical tablet morning Branch and 1 tablet in the evening. ibuprofen 2022-0 Yes [id number] 600mg Take 1 Univers 600 mg 2-10 103 tablet by ity of tablet 00:00: mouth [place] 00 every 6 Medical (six) Branch hours as needed (Pain). Take with food or milk. acetaminoph 2022-0 Yes [id number] 650mg Take 2 Univers en 325 mg 2-10 103 tablets by ity of tablet 00:00: mouth [place] 00 every 6 Medical (six) Branch hours as needed for Pain (scale 1-3) or Pain (scale 4-6). 2022-0 Yes [id number] 1{tbl} Take 1 Univers vitamin 2-10 103 tablet by ity of w/FA tablet 00:00: mouth in [place] 00 the Medical morning. Branch docusate 2022-0 Yes [id number] 200mg Take 2 Univers 100 mg 2-10 103 capsules ity of capsule 00:00: by mouth [place] 00 once daily Medical as needed Branch for Constipati on. ferrous 2022-0 Yes [id number] 325mg Take 1 Univers sulfate 325 2-10 103 tablet by ity of mg (65 mg 00:00: [place] iron[place] 00 the Medical tablet morning Branch and 1 tablet in the evening. ibuprofen 2022-0 Yes [id number] 600mg Take 1 Univers 600 mg 2-10 103 tablet by ity of tablet 00:00: mouth [place] 00 every 6 Medical (six) Branch hours as needed (Pain). Take with food or milk. acetaminoph 2022-0 Yes [id number] 650mg Take 2 Univers en 325 mg 2-10 103 tablets by ity of tablet 00:00: mouth [place] 00 every 6 Medical (six) Branch hours as needed for Pain (scale 1-3) or Pain (scale 4-6). 2022-0 Yes [id number] 1{tbl} Take 1 Univers vitamin 2-10 103 tablet by ity of w/FA tablet 00:00: mouth in [place] 00 the Medical morning. Branch docusate 2022-0 Yes [id number] 200mg Take 2 Univers 100 mg 2-10 103 capsules ity of capsule 00:00: by mouth [place] 00 once daily Medical as needed Branch for Constipati on. ferrous 2022-0 Yes [id number] 325mg Take 1 Univers sulfate 325 2-10 103 tablet by ity of mg (65 mg 00:00: [place] iron[place] 00 the Medical tablet morning Branch and 1 tablet in the evening. ibuprofen 2022-0 Yes [id number] 600mg Take 1 Univers 600 mg 2-10 103 tablet by ity of tablet 00:00: mouth [place] 00 every 6 Medical (six) Branch hours as needed (Pain). Take with food or milk. acetaminoph 2022-0 Yes [id number] 650mg Take 2 Univers en 325 mg 2-10 103 tablets by ity of tablet 00:00: mouth [place] 00 every 6 Medical (six) Branch hours as needed for Pain (scale 1-3) or Pain (scale 4-6). ferrous 2023-0 Yes [id number] 325mg Take 1 Univers sulfate 325 2-10 103 tablet by ity of mg (65 mg 00:00: [place] iron[place] 00 the Medical tablet morning Branch and 1 tablet in the evening. ibuprofen 2023-0 Yes [id number] 600mg Take 1 Univers 600 mg 2-10 103 tablet by ity of tablet 00:00: mouth [place] 00 every 6 Medical (six) Branch hours as needed (Pain). Take with food or milk. acetaminoph 2023-0 Yes [id number] 650mg Take 2 Univers en 325 mg 2-10 103 tablets by ity of tablet 00:00: mouth [place] 00 every 6 Medical (six) Branch hours as needed for Pain (scale 1-3) or Pain (scale 4-6). ferrous 2023-0 Yes [id number] 325mg Take 1 Univers sulfate 325 2-10 103 tablet by ity of mg (65 mg 00:00: [place] iron[place] 00 the Medical tablet morning Branch and 1 tablet in the evening. ibuprofen 2023-0 Yes [id number] 600mg Take 1 Univers 600 mg 2-10 103 tablet by ity of tablet 00:00: mouth [place] 00 every 6 Medical (six) Branch hours as needed (Pain). Take with food or milk. acetaminoph 2023-0 Yes [id number] 650mg Take 2 Univers en 325 mg 2-10 103 tablets by ity of tablet 00:00: mouth [place] 00 every 6 Medical (six) Branch hours as needed for Pain (scale 1-3) or Pain (scale 4-6). ferrous 2023-0 Yes [id number] 325mg Take 1 Univers sulfate 325 2-10 103 tablet by ity of mg (65 mg 00:00: [place] iron[place] 00 the Medical tablet morning Branch and 1 tablet in the evening. ibuprofen 2023-0 Yes [id number] 600mg Take 1 Univers 600 mg 2-10 103 tablet by ity of tablet 00:00: mouth [place] 00 every 6 Medical (six) Branch hours as needed (Pain). Take with food or milk. acetaminoph 2023-0 Yes [id number] 650mg Take 2 [facility] en 325 mg 2-10 103 tablets by ity of tablet 00:00: mouth [place] 00 every 6 Medical (six) Branch hours as needed for Pain (scale 1-3) or Pain (scale 4-6). ferrous 2022-0 Yes [id number] 325mg Take 1 [facility] sulfate 325 2-10 103 tablet by ity of mg (65 mg 00:00: [place] iron) 00 the Medical tablet morning Branch and 1 tablet in the evening. ibuprofen 2022-0 Yes [id number] 600mg Take 1 [facility] 600 mg 2-10 103 tablet by ity of tablet 00:00: mouth [place] 00 every 6 Medical (six) Branch hours as needed (Pain). Take with food or milk. acetaminoph 0 Yes [id number] 650mg Take 2 [facility] en 325 mg 2-10 103 tablets by ity of tablet 00:00: mouth [place] 00 every 6 Medical (six) Branch hours as needed for Pain (scale 1-3) or Pain (scale 4-6). ferrous 2022-0 Yes [id number] 325mg Take 1 [facility] sulfate 325 2-10 103 tablet by ity of mg (65 mg 00:00: [place] iron) 00 the Medical tablet morning Branch and 1 tablet in the evening. ibuprofen 2022-0 Yes [id number] 600mg Take 1 [facility] 600 mg 2-10 103 tablet by ity of tablet 00:00: mouth [place] 00 every 6 Medical (six) Branch hours as needed (Pain). Take with food or milk. 2022-0 2022- No [id number] 1{tbl} Take 1 [facility] vitamin 2-10 03-10 103 tablet by ity of w/FA tablet 00:00: 00:00 mouth in [place] 00 :00 the Medical morning. Branch docusate 2022-0 2022- No [id number] 200mg Take 2 [facility] 100 mg 2-10 03-10 103 capsules ity of capsule 00:00: 00:00 by mouth [place] 00 :00 once daily Medical as needed Branch for Constipati on. 2022-0 2022- No [id number] 1{tbl} Take 1 [facility] vitamin 2-10 03-10 103 tablet by ity of w/FA tablet 00:00: 00:00 mouth in [place] 00 :00 the Medical morning. Branch docusate 2022-2022- No [id number] 200mg Take 2 [facility] 100 mg 09-12 103 capsules ity of capsule 00:00: 00:00 by mouth [place] 00 :00 once daily Medical as needed Branch for Constipati on. traMADoL 50 2022- Yes [id number] 50mg Take 1 Uni vers mg tablet 09-12-18 tablet by ity of 00:00: 05:59 mouth [place] 00 :00 every 6 Medical (six) Branch hours as needed for Pain (scale 7-10) for up to 7 days. Indication s: acute pain traMADoL 50 2022-2022- Yes [id number] 50mg Take 1 Uni vers mg tablet 09-12-18 tablet by ity of 00:00: 05:59 mouth [place] 00 :00 every 6 Medical (six) Branch hours as needed for Pain (scale 7-10) for up to 7 days. Indication s: acute pain traMADoL 50 2022- Yes [id number] 50mg Take 1 Uni vers mg tablet 09-12-18 tablet by ity of 00:00: 05:59 mouth [place] 00 :00 every 6 Medical (six) Branch hours as needed for Pain (scale 7-10) for up to 7 days. Indication s: acute pain traMADoL 50 2022- No 4647 50mg Take 1 [facility] vers mg tablet 09-12-18 tablet by ity of 00:00: 05:59 mouth [place] 00 :00 every 6 Medical (six) Branch hours as needed for Pain (scale 7-10) for up to 7 days. Indication s: acute pain gabapentin 2022-2022- Yes [id number] 300mg Take 1 [facility] 300 mg 09-12 103 capsule by ity of capsule 00:00: 05:59 mouth in [place] 00 :00 the Medical morning Branch and 1 capsule at noon and 1 capsule in the evening. Do all this for 5 days. gabapentin 2022-2022- Yes [id number] 300mg Take 1 [facility] 300 mg 09-12 103 capsule by ity of capsule 00:00: 05:59 mouth in [place] 00 :00 the Medical morning Branch and 1 capsule at noon and 1 capsule in the evening. Do all this for 5 days. gabapentin 0 2022- Yes [id number] 300mg Take 1 [facility] 300 mg 09-12 103 capsule by ity of capsule 00:00: 05:59 mouth in [place] 00 :00 the Medical morning Branch and 1 capsule at noon and 1 capsule in the evening. Do all this for 5 days. gabapentin 2022-0 Yes 300mg 300 mg, Uni vers (NEURONTIN) 2-09 Oral, TID, it y of capsule 300 20:00: First dose [place] mg 00 on [facility] 09/11/22 at Branch 1400, Until Discontinu ed, Routine gabapentin 2022-0 Yes 300mg 300 mg, Uni vers (NEURONTIN) 2- Oral, TID, it y of capsule 300 20:00: First dose [place] mg 00 on [facility] 09/11/22 at Branch 1400, Until Discontinu ed, Routine ondansetron 2022- No 4mg 4 mg, Slow Univers (ZOFRAN 09-11 IV Push, ity of (PF)) 16:15: 16:22 ONCE, 1 [place] injection 4 00 :00 dose, On Medi rosa isela mg [facility] 09/11/22 Branch at 1015, Routine nalbuphine 0 Yes 5mg 5 mg, Univer s (NUBAIN) 2-09 Intravenou ity o f injection 5 15:58: s, PRN, 1 [place] mg 16 dose, Medical Starting Branch on [facility] 09/11/22 at 0958, Until Discontinu ed, Routine, itching nalbuphine 0 Yes 5mg 5 mg, Univer s (NUBAIN) 2- Intravenou ity o f injection 5 15:58: s, PRN, 1 [place] mg 16 dose, Medical Starting Branch on [facility] 09/11/22 at 0958, Until Discontinu ed, Routine, itching naloxone 2022- Yes .4mg 0.4 mg, Unive rs (NARCAN) 09-1112 Slow IV ity of injection 15:58: 00:14 Push, PRN [place] 0.4 mg 16 :19 - SEE Medical INSTRUCTIO Branch NS, Starting on [facility] 09/11/22 at 0958, Until 09/13/22 at 1814, Routine, Analgesia Recovery naloxone 2022- Yes .4mg 0.4 mg, Unive rs (NARCAN) 09-11-12 Slow IV ity of injection 15:58: 00:14 Push, PRN [place] 0.4 mg 16 :19 - SEE Medical INSTRUCTIO Branch NS, Starting on [place] 09/11/22 at 0958, Until 09/13/22 at 1814, Routine, Analgesia Recovery mupirocin 0 Yes Intra-op Univ ers (BACTROBAN - ity of OINT) 2 % 15:23: [place] skin 00 Medical ointment Branch mupirocin 0 Yes Intra-op Univ ers (BACTROBAN 2-09 ity of OINT) 2 % 15:23: [place] skin 00 Medical ointment Branch lactated 2022- No 1000mL at 125 Univ ers ringers IV 09-11- mL/hr, ity of infusion 15:15: 21:15 1,000 mL, [place] 1,000 mL 00 :00 IV Medical Infusion, Branch ONCE, 1 dose, On [place] 09/11/22 at 0915, Routine LR 1000 mL 2022- No IV Univer s + oxytocin 09-11 Infusion, ity of 40 units 40 15:03: 15:45 CONTINUOUS [place] unit/ 1,000 00 :23 PRN, Medical mL IV Starting Branch Solution on [place] 09/11/22 at 0903, Until [place] 09/11/22 at 0945, Routine, Intra-op sodium 0 Yes PRN, Univers chloride 09-11 Starting ity of 0.9 % 14:56: on [place] irrigation 00 09/11/22 at Medi rosa isela solution 0856, Branch Until Discontinu ed, Intra-op sodium 0 Yes PRN, Univers chloride 2-09 Starting ity of 0.9 % 14:56: on [place] irrigation 00 09/11/22 at Medi rosa isela solution 0856, Branch Until Discontinu ed, Intra-op phenylephri 2022- No Intravenou Univers ne 09-11 s, ity of (VAZCULEP) 14:42: 15:45 CONTINUOUS [place] injection 00 :23 PRN, Medical Starting Branch on [place] 09/11/22 at 0842, Until [place] 09/11/22 at 0945, Routine, Intra-op morpHINE PF 2022- No Intratheca Univers (DURAMORPH- 09-11 l, ONCE ity of PF) 14:36: 14:09 INTRA [place] injection 00 :36 PROCEDURE, [facility] Starting Branch on [facility] 09/11/22 at 0836, Until 09/29/22 at 0809, Routine, Intra-op FENTanyl PF 2022- No Intratheca Univers (SUBLIMAZE 09-11 l, ONCE ity o f (PF)) 14:36: 14:09 INTRA [place] injection 00 :01 PROCEDURE, [facility] Starting Branch on [facility] 09/11/22 at 0836, Until 09/29/22 at 0809, Routine, Intra-op ziprasidone Yes 20mg 20 mg, Univ ers (GEODON) 2-09 Oral, BID, ity o f capsule 20 14:30: First dose [place] mg 00 on [facility] 09/11/22 at Branch 0830, Until Discontinu ed ziprasidone Yes 20mg 20 mg, Univ ers (GEODON) 2-09 Oral, BID, ity o f capsule 20 14:30: First dose [place] mg 00 on [facility] 09/11/22 at Branch 0830, Until Discontinu ed rho(D) Yes 300ug 300 mcg, Univer s immune 09-11 Intramuscu ity of globulin 14:21: lar, ONCE, [place] (RHOGAM) 17 For 1 Medical syringe 300 dose, Branch mcg Conditiona l, Routine rho(D) Yes 300ug 300 mcg, Univer s immune 2- Intramuscu ity of globulin 14:21: lar, ONCE, [place] (RHOGAM) 17 For 1 Medical syringe 300 dose, Branch mcg Conditiona l, Routine diphenhydrA Yes 25mg 25 mg, Univ ers MINE 2 Slow IV ity of (BENADRYL) 14:21: Push, [place] injection 11 Q6HPRN, Medical 25 mg Starting Branch on [facility] 09/11/22 at 0821, Until Discontinu ed, Routine, Itching diphenhydrA 2023-0 Yes 25mg 25 mg, Univ ers MINE 2-09 Oral, ity of (BENADRYL) 14:21: Q6HPRN, [place] tablet 25 11 Starting Medica l mg on [facility] Branch 09/11/22 at 0821, Until Discontinu ed, Routine, Sleep, Itching ondansetron 2023-0 Yes 4mg 4 mg, Slow Univers (ZOFRAN 2-09 IV Push, ity of (PF)) 14:21: Q8HPRN, [place] injection 4 11 Starting Medi rosa isela mg on [facility] Branch 09/11/22 at 0821, Until Discontinu ed, Routine, Nausea and Vomiting (N/V) bisacodyL 2023-0 Yes 10mg 10 mg, Univer s (DULCOLAX) 2-09 Rectal, ity of suppository 14:21: QDAILYPRN, [place] 10 mg 11 Starting Medical on [facility] Branch 09/11/22 at 0821, Until Discontinu ed, Routine, Constipati on simethicone 2023-0 Yes 160mg 160 mg, Un mohamud (GAS RELIEF 2-09 Oral, ity of (SIMETHICON 14:21: PC+HSPRN, [place] E)) 11 Starting Medical chewable on [facility] Branch tablet 160 09/11/22 at mg 0821, [...] 25 11 Starting Medica l mg on [facility] Branch 09/11/22 at 0821, Until Discontinu ed, Routine, Sleep, Itching ondansetron 2023-0 Yes 4mg 4 mg, Slow Univers (ZOFRAN 2-09 IV Push, ity of (PF)) 14:21: Q8HPRN, [place] injection 4 11 Starting Medi rosa isela mg on [place] Branch 09/11/22 at 0821, Until Discontinu ed, Routine, Nausea and Vomiting (N/V) bisacodyL 2023-0 Yes 10mg 10 mg, Univer s (DULCOLAX) 2-09 Rectal, ity of suppository 14:21: QDAILYPRN, [place] 10 mg 11 Starting Medical on [place] Branch 09/11/22 at 0821, Until Discontinu ed, Routine, Constipati on simethicone 2023-0 Yes 160mg 160 mg, Un mohamud (GAS RELIEF 2-09 Oral, ity of (SIMETHICON 14:21: PC+HSPRN, [place] E)) 11 Starting Medical chewable on [facility] Branch tablet 160 09/11/22 at mg 0821, Until Discontinu ed, Routine, Gas docusate 2023-0 Yes 200mg 200 mg, Unive rs (COLACE) 2-09 Oral, ity of capsule 200 14:21: QDAILYPRN, [place] mg 10 Starting Medical on [facility] Branch 09/11/22 at 0821, Until Discontinu ed, Routine, Constipati on magnesium 2023-0 Yes 30mL 30 mL, Univer s hydroxide 2-09 Oral, ity of (MILK OF 14:21: QDAILYPRN, [place] MAGNESIA) 10 Starting Medica l 400 mg/5 mL on [facility] Branch suspension 09/11/22 at 30 mL 0821, Until Discontinu ed, Routine, Constipati on lactated 2023-0 Yes 1000mL at 125 Unive rs ringers IV 2-09 mL/hr, ity of infusion 14:21: 1,000 mL, [place] 1,000 mL 10 IV Medical Infusion, Branch PRN, 1 dose, Starting on [place] 09/11/22 at 0821, Until Discontinu ed, Routine docusate 2023-0 Yes 200mg 200 mg, Unive rs (COLACE) 2-09 Oral, ity of capsule 200 14:21: QDAILYPRN, [place] mg 10 Starting Medical on [facility] Branch 09/11/22 at 0821, Until Discontinu ed, Routine, Constipati on magnesium 2023-0 Yes 30mL 30 mL, Univer s hydroxide 2-09 Oral, ity of (MILK OF 14:21: QDAILYPRN, [place] MAGNESIA) 10 Starting Medica l 400 mg/5 mL on [place] Branch suspension 09/11/22 at 30 mL 0821, Until Discontinu ed, Routine, Constipati on lactated Yes 1000mL at 125 Unive rs ringers IV 2- mL/hr, ity of infusion 14:21: 1,000 mL, [place] 1,000 mL 10 IV Medical Infusion, Branch PRN, 1 dose, Starting on [place] 09/11/22 at 0821, Until Discontinu ed, Routine ondansetron 2022- No Slow IV Un mohamud (ZOFRAN 09-11 Push, ONCE ity o f (PF)) 14:17: 15:45 INTRA [place] injection 00 :23 PROCEDURE, Medi rosa isela Starting Branch on [place] 09/11/22 at 0817, Until [place] 09/11/22 at 0945, Routine, Intra-op lactated 2022- No IV Univers ringers IV 09-11 Infusion, ity of infusion 14:05: 15:45 CONTINUOUS [place] 00 :23 PRN, Medical Starting Branch on [place] 09/11/22 at 0805, Until [place] 09/11/22 at 0945, Routine, Intra-op sodium 2022- No 30mL 30 mL, Univers citrate-cit 09-11 Oral, ity of cm acid 11:59: 13:17 PRE-PROCED [place] (BICITRA) 02 :00 URE ONCE, Medic al 500-334 1 dose, Branch mg/5 mL Starting solution 30 on [place] mL 09/11/22 at 0559, Until Discontinu ed, Routine, Surgery/Pr ocedure [id number] IV 2022- No 1000mL at 1-125 U nivers infusion 09-11 mL/hr, IV ity o f 1,000 mL 11:59: 14:21 Infusion, [place] 02 :15 TITRATE, Medical Starting Branch on [place] 09/11/22 at 0559, Until [place] 09/11/22 at 0821, Routine ceFAZolin 2022- No 2000mg 2,000 mg, Univers (ANCEF) 09-11 IV ity of 2,000 mg in 11:59: 14:21 Piggyback, [place] NaCl 0.9% 02 :15 O.R. Medical (NS) 100 mL HOLDING Branc h MINI-BAG ONCE, Starting on [place] 09/11/22 at 0559, Until [place] 09/11/22 at 0821, Administer over 30 Minutes, 100 mL
Reas on for Anti-Infec tive: Surgical Prophylaxi s
Surgi rosa isela Prophylaxi s: COMPUTER SECURITY COORDINATOR
Duration of therapy: within 24 hours of [...] 00 :00 dose, On Medica l mg [place] 09/04/22 Branch at 0230, Routine NaCl 0.9% [...] at 2359, Routine, Pain (scale 7-10) alum-mag Yes 30mL 30 mL, Univers hydroxide-s 02 Oral, ity of imeth 06:13: Q6HPRN, [place] (MAALOX 18 Starting Medical PLUS / on [place] Branch MAG-AL 09/04/22 at PLUS) 0013, 200-200-20 Until mg/5 mL Discontinu suspension ed, 30 mL Routine, Indigestio n ferrous 2022-0 2022- No Take by Univer s sulfate 08-29 mouth. ity of (IRON ORAL) 11:17: 00:00 [place] 46 :00 [facility] ferrous 2022-0 Yes Take by Univers sulfate 1-12 mouth. ity of (IRON ORAL) 09:59: [address] ferrous 0 Yes Take by Univers sulfate 1-12 mouth. ity of (IRON ORAL) 09:59: [address] ferrous 0 Yes Take by [facility] sulfate 1-12 mouth. ity of (IRON ORAL) 09:59: [address] ferrous 0 Yes Take by [facility] sulfate 1-12 mouth. ity of (IRON ORAL) 09:59: [address] ferrous 0 Yes Take by [facility] sulfate 1-12 mouth. ity of (IRON ORAL) 09:59: [address] ferrous 0 Yes Take by [facility] sulfate 1-12 mouth. ity of (IRON ORAL) 09:59: [address] ferrous 2022-0 Yes Take by [facility] sulfate 1-12 mouth. ity of (IRON ORAL) 09:59: [address] ferrous 2022-0 Yes Take by [facility] sulfate 1-12 mouth. ity of (IRON ORAL) 09:59: [address] ferrous 2022-0 Yes Take by [facility] sulfate 1-12 mouth. ity of (IRON ORAL) 09:59: [address] butorphanol 2022-0 2022- No 1mg 1 mg, Univ ers (STADOL) 08-12 Intravenou ity of injection 1 05:00: 04:25 s, ONCE, 1 [place] mg 00 :00 dose, On Medical 08/11/22 Branch at 2300, Routine diphenhydrA 2022- No 25mg 25 mg, Uni vers MINE 08-12-10 Oral, ity of (BENADRYL) 02:45: 02:07 ONCE, 1 [place] tablet 25 00 :00 dose, On Medica l mg 08/11/22 Branch at 2044, Routine metoclopram 2022- No 10mg 10 mg, Uni vers richa HCl -10 01-10 Oral, ity of (REGLAN) 02:45: 02:07 ONCE, 1 [place] tablet 10 00 :00 dose, On Medica l mg 08/11/22 Branch at 204, Routine acetaminoph Yes 1000mg 1,000 mg, Univers en 1-10 Oral, ity of (TYLENOL) 02:44: Q8HPRN, [place] tablet 03 Starting Medical 1,000 mg on [facility] Branch 08/11/22 at 204, Until Discontinu ed, Routine, pain ferrous Yes Take by Univers sulfate 1-10 mouth. ity of (IRON ORAL) 00:32: [address] ferrous Yes Take by Univers sulfate 1-10 mouth. ity of (IRON ORAL) 00:32: [address] ondansetron 2021-08 No 4mg 4 mg, Slow Univers (ZOFRAN 07-31 IV Push, ity of (PF)) 02:00: 01:18 ONCE, On [place] injection 4 00 :00 Wed Medical mg [...] 00 :00 1 dose, On Medica l Wed Branch 07/30/22 at 1915, Routine NaCl 0.9% 2021-08 No 1000mL at 999 Uni vers (NS) IV 12-29 mL/hr, IV ity of infusion 01:15: 00:50 Infusion, [place] 1,000 mL 00 :29 ONCE, 1 Medical dose, On Branch 07/30/22 at 1915, Routine ferrous 2021-08 Yes Take by Univers sulfate 2-28 mouth. ity of (IRON ORAL) 21:21: [address] ferrous 2021-08 Yes Take by [facility] sulfate 2-28 mouth. ity of (IRON ORAL) 21:21: [address] ferrous 2021-08 Yes Take by [facility] sulfate 2-28 mouth. ity of (IRON ORAL) 21:21: [address] ferrous 2021-08 Yes Take by [facility] sulfate 2-28 mouth. ity of (IRON ORAL) 21:21: [address] ondansetron 2021-08- 4mg 4 mg, Univ ers (ZOFRAN-ODT 2-28 - Oral, ity of ) 08:45: 07:48 ONCE, 1 [place] disintegrat 00 :00 dose, On Medi rosa isela ing tablet [facility] Branch 4 mg 07/30/22 at 0245, Routine ondansetron 2021-08 Yes [id number] 4mg Take 1 Univers 4 mg 2-28 tablet by ity of disintegrat 00:00: mouth [place] ing tablet 00 every 8 Medica l (eight) Branch hours as needed for Nausea and Vomiting (N/V). ondansetron 2021-08 Yes [id number] 4mg Take 1 Univers 4 mg 2-28 tablet by ity of disintegrat 00:00: mouth [place] ing tablet 00 every 8 Medica l (eight) Branch hours as needed for Nausea and Vomiting (N/V). ondansetron 2021-08 Yes [id number] 4mg Take 1 Univers 4 mg 2-28 tablet by ity of disintegrat 00:00: mouth [place] ing tablet 00 every 8 Medica l (eight) Branch hours as needed for Nausea and Vomiting (N/V). ondansetron 2021-08 Yes [id number] 4mg Take 1 Univers 4 mg 2-28 tablet by ity of disintegrat 00:00: mouth [place] ing tablet 00 every 8 Medica l (eight) Branch hours as needed for Nausea and Vomiting (N/V). ondansetron 2021-08 Yes [id number] 4mg Take 1 [facility] 4 mg 2-28 tablet by ity of disintegrat 00:00: mouth [place] ing tablet 00 every 8 Medica l (eight) Branch hours as needed for Nausea and Vomiting (N/V). ondansetron 2021-08 Yes [id number] 4mg Take 1 Univers 4 mg 2-28 tablet by ity of disintegrat 00:00: mouth [place] ing tablet 00 every 8 Medica l (eight) Branch hours as needed for Nausea and Vomiting (N/V). ondansetron 2021-08 Yes [id number] 4mg Take 1 [facility] 4 mg 2-28 tablet by ity of disintegrat 00:00: mouth [place] ing tablet 00 every 8 Medica l (eight) Branch hours as needed for Nausea and Vomiting (N/V). ondansetron 2021-08 Yes [id number] 4mg Take 1 [facility] 4 mg 2-28 tablet by ity of disintegrat 00:00: mouth [place] ing tablet 00 every 8 Medica l (eight) Branch hours as needed for Nausea and Vomiting (N/V). ondansetron 2021-08 Yes [id number] 4mg Take 1 Univers 4 mg 2-28 tablet by ity of disintegrat 00:00: mouth [place] ing tablet 00 every 8 Medica l (eight) Branch hours as needed for Nausea and Vomiting (N/V). ondansetron 2021-08 Yes [id number] 4mg Take 1 Univers 4 mg 2-28 tablet by ity of disintegrat 00:00: mouth [place] ing tablet 00 every 8 Medica l (eight) Branch hours as needed for Nausea and Vomiting (N/V). ondansetron 2021-08 Yes [id number] 4mg Take 1 Univers 4 mg 2-28 tablet by ity of disintegrat 00:00: mouth [place] ing tablet 00 every 8 Medica l (eight) Branch hours as needed for Nausea and Vomiting (N/V). ondansetron 2021-08 Yes [id number] 4mg Take 1 Univers 4 mg 2-28 tablet by ity of disintegrat 00:00: mouth [place] ing tablet 00 every 8 Medica l (eight) Branch hours as needed for Nausea and Vomiting (N/V). ondansetron 2021-08 Yes [id number] 4mg Take 1 Univers 4 mg 2-28 tablet by ity of disintegrat 00:00: mouth [place] ing tablet 00 every 8 Medica l (eight) Branch hours as needed for Nausea and Vomiting (N/V). ondansetron 2021-08 Yes [id number] 4mg Take 1 Univers 4 mg 2-28 tablet by ity of disintegrat 00:00: mouth [place] ing tablet 00 every 8 Medica l (eight) Branch hours as needed for Nausea and Vomiting (N/V). ondansetron 2021-08 Yes [id number] 4mg Take 1 Univers 4 mg 2-28 tablet by ity of disintegrat 00:00: mouth [place] ing tablet 00 every 8 Medica l (eight) Branch hours as needed for Nausea and Vomiting (N/V). ondansetron 2021-08 Yes [id number] 4mg Take 1 Univers 4 mg 2-28 tablet by ity of disintegrat 00:00: mouth [place] ing tablet 00 every 8 Medica l (eight) Branch hours as needed for Nausea and Vomiting (N/V). ondansetron 2021-08 Yes [id number] 4mg Take 1 Univers 4 mg 2-28 tablet by ity of disintegrat 00:00: mouth [place] ing tablet 00 every 8 Medica l (eight) Branch hours as needed for Nausea and Vomiting (N/V). ondansetron 2021-08 Yes [id number] 4mg Take 1 Univers 4 mg 2-28 tablet by ity of disintegrat 00:00: mouth [place] ing tablet 00 every 8 Medica l (eight) Branch hours as needed for Nausea and Vomiting (N/V). ondansetron 2021-08 Yes [id number] 4mg Take 1 Univers 4 mg 2-28 tablet by ity of disintegrat 00:00: mouth [place] ing tablet 00 every 8 Medica l (eight) Branch hours as needed for Nausea and Vomiting (N/V). ondansetron 2021-08 Yes [id number] 4mg Take 1 Univers 4 mg 2-28 tablet by ity of disintegrat 00:00: mouth [place] ing tablet 00 every 8 Medica l (eight) Branch hours as needed for Nausea and Vomiting (N/V). ondansetron 2021-08 Yes [id number] 4mg Take 1 Univers 4 mg 2-28 tablet by ity of disintegrat 00:00: mouth [place] ing tablet 00 every 8 Medica l (eight) Branch hours as needed for Nausea and Vomiting (N/V). ondansetron 2021-08 Yes [id number] 4mg Take 1 Univers 4 mg 2-28 tablet by ity of disintegrat 00:00: mouth [place] ing tablet 00 every 8 Medica l (eight) Branch hours as needed for Nausea and Vomiting (N/V). ondansetron 2021-08 Yes [id number] 4mg Take 1 Univers 4 mg 2-28 tablet by ity of disintegrat 00:00: mouth [place] ing tablet 00 every 8 Medica l (eight) Branch hours as needed for Nausea and Vomiting (N/V). ondansetron 2021-08 Yes [id number] 4mg Take 1 Univers 4 mg 2-28 tablet by ity of disintegrat 00:00: mouth [place] ing tablet 00 every 8 Medica l (eight) Branch hours as needed for Nausea and Vomiting (N/V). ondansetron 2021-08 Yes [id number] 4mg Take 1 Univers 4 mg 2-28 tablet by ity of disintegrat 00:00: mouth [place] ing tablet 00 every 8 Medica l (eight) Branch hours as needed for Nausea and Vomiting (N/V). ondansetron 2021-08 Yes [id number] 4mg Take 1 Univers 4 mg 2-28 tablet by ity of disintegrat 00:00: mouth [place] ing tablet 00 every 8 Medica l (eight) Branch hours as needed for Nausea and Vomiting (N/V). ondansetron 2021-08 Yes [id number] 4mg Take 1 Univers 4 mg 2-28 tablet by ity of disintegrat 00:00: mouth [place] ing tablet 00 every 8 Medica l (eight) Branch hours as needed for Nausea and Vomiting (N/V). ondansetron 2021-08 Yes [id number] 4mg Take 1 Univers 4 mg 2-28 tablet by ity of disintegrat 00:00: mouth [place] ing tablet 00 every 8 Medica l (eight) Branch hours as needed for Nausea and Vomiting (N/V). ondansetron 2021-08 No [id number] 4mg Take 1 Univers 4 mg 2-28 02-10 tablet by ity of disintegrat 00:00: 00:00 mouth [place] ing tablet 00 :00 every 8 Medica l (eight) Branch hours as needed for Nausea and Vomiting (N/V). ferrous 2021-08 Yes Take by Univers sulfate 2-16 mouth. ity of (IRON ORAL) 08:50: [address] ferrous 2021-08 Yes Take by Univers sulfate 2-16 mouth. ity of (IRON ORAL) 08:50: [address] ferrous 2021-08 Yes Take by Univers sulfate 2-16 mouth. ity of (IRON ORAL) 08:50: [address] ferrous 2021-08 Yes Take by [facility] sulfate 2-16 mouth. ity of (IRON ORAL) 08:50: [address] ferrous 2021-08 Yes Take by [facility] sulfate 2-16 mouth. ity of (IRON ORAL) 08:50: [address] ferrous 2021-08 Yes Take by [facility] sulfate 2-16 mouth. ity of (IRON ORAL) 08:50: [address] ferrous 2021-08 Yes Take by [facility] sulfate 2-16 mouth. ity of (IRON ORAL) 08:50: [address] ferrous 2021-08 Yes Take by [facility] sulfate 2-16 mouth. ity of (IRON ORAL) 08:50: [address] ferrous 2021-08 Yes Take by Univers sulfate 2-16 mouth. ity of (IRON ORAL) 08:50: [address] benzonatate 2021-08 Yes [id number] 100mg Take 1 [facility] 100 mg 2-16 capsule by ity of capsule 00:00: mouth [place] 00 every 8 Medical (eight) Branch hours as needed for Cough. benzonatate 2021-08 Yes [id number] 100mg Take 1 [facility] 100 mg 2-16 capsule by ity of capsule 00:00: mouth [place] 00 every 8 Medical (eight) Branch hours as needed for Cough. benzonatate 2021-08 Yes [id number] 100mg Take 1 [facility] 100 mg 2-16 capsule by ity of capsule 00:00: mouth [place] 00 every 8 Medical (eight) Branch hours as needed for Cough. benzonatate 2021-08 Yes [id number] 100mg Take 1 [facility] 100 mg 2-16 capsule by ity of capsule 00:00: mouth [place] 00 every 8 Medical (eight) Branch hours as needed for Cough. benzonatate 2021-08 Yes [id number] 100mg Take 1 [facility] 100 mg 2-16 capsule by ity of capsule 00:00: mouth [place] 00 every 8 Medical (eight) Branch hours as needed for Cough. benzonatate 2021-08 Yes [id number] 100mg Take 1 [facility] 100 mg 2-16 capsule by ity of capsule 00:00: mouth [place] 00 every 8 Medical (eight) Branch hours as needed for Cough. benzonatate 2021-08 Yes [id number] 100mg Take 1 [facility] 100 mg 2-16 capsule by ity of capsule 00:00: mouth [place] 00 every 8 Medical (eight) Branch hours as needed for Cough. benzonatate 2021-08 Yes [id number] 100mg Take 1 [facility] 100 mg 2-16 capsule by ity of capsule 00:00: mouth [place] 00 every 8 Medical (eight) Branch hours as needed for Cough. benzonatate 2021-08 Yes [id number] 100mg Take 1 [facility] 100 mg 2-16 capsule by ity of capsule 00:00: mouth [place] 00 every 8 Medical (eight) Branch hours as needed for Cough. benzonatate 2021-08 Yes [id number] 100mg Take 1 [facility] 100 mg 2-16 capsule by [facility] of capsule 00:00: mouth [place] 00 every 8 Medical (eight) Branch hours as needed for Cough. benzonatate 2021-08 Yes [id number] 100mg Take 1 [facility] 100 mg 2-16 capsule by ity of capsule 00:00: mouth [place] 00 every 8 Medical (eight) Branch hours as needed for Cough. benzonatate 2021-08 Yes [id number] 100mg Take 1 [facility] 100 mg 2-16 capsule by ity of capsule 00:00: mouth [place] 00 every 8 Medical (eight) Branch hours as needed for Cough. benzonatate 2021-08 Yes [id number] 100mg Take 1 [facility] 100 mg 2-16 capsule by ity of capsule 00:00: mouth [place] 00 every 8 Medical (eight) Branch hours as needed for Cough. benzonatate 2021-08 Yes [id number] 100mg Take 1 [facility] 100 mg 2-16 capsule by ity of capsule 00:00: mouth [place] 00 every 8 Medical (eight) Branch hours as needed for Cough. benzonatate 2021-08 Yes [id number] 100mg Take 1 [facility] 100 mg 2-16 capsule by ity of capsule 00:00: mouth [place] 00 every 8 Medical (eight) Branch hours as needed for Cough. benzonatate 2021-08 Yes [id number] 100mg Take 1 [facility] 100 mg 2-16 capsule by ity of capsule 00:00: mouth [place] 00 every 8 Medical (eight) Branch hours as needed for Cough. benzonatate 2021-08 Yes [id number] 100mg Take 1 [facility] 100 mg 2-16 capsule by [facility]y of capsule 00:00: mouth [place] 00 every 8 Medical (eight) Branch hours as needed for Cough. benzonatate 2021-08 Yes [id number] 100mg Take 1 [facility] 100 mg 2-16 capsule by ity of capsule 00:00: mouth [place] 00 every 8 Medical (eight) Branch hours as needed for Cough. benzonatate 2021-08 Yes [id number] 100mg Take 1 [facility] 100 mg 2-16 capsule by ity of capsule 00:00: mouth [place] 00 every 8 Medical (eight) Branch hours as needed for Cough. benzonatate 2021-08 Yes [id number] 100mg Take 1 [facility] 100 mg 2-16 capsule by ity of capsule 00:00: mouth [place] 00 every 8 Medical (eight) Branch hours as needed for Cough. benzonatate 2021-08 Yes [id number] 100mg Take 1 [facility] 100 mg 2-16 capsule by [facility]y of capsule 00:00: mouth [place] 00 every 8 Medical (eight) Branch hours as needed for Cough. benzonatate 2021-08 Yes [id number] 100mg Take 1 [facility] 100 mg 2-16 capsule by ity of capsule 00:00: mouth [place] 00 every 8 Medical (eight) Branch hours as needed for Cough. benzonatate 2021-08 Yes [id number] 100mg Take 1 [facility] 100 mg 2-16 capsule by ity of capsule 00:00: mouth [place] 00 every 8 Medical (eight) Branch hours as needed for Cough. benzonatate 2021-08 Yes [id number] 100mg Take 1 [facility] 100 mg 2-16 capsule by [facility]y of capsule 00:00: mouth [place] 00 every 8 Medical (eight) Branch hours as needed for Cough. benzonatate 2021-08 Yes [id number] 100mg Take 1 [facility] 100 mg 2-16 capsule by [facility]y of capsule 00:00: mouth [place] 00 every 8 Medical (eight) Branch hours as needed for Cough. benzonatate 2021-08 Yes [id number] 100mg Take 1 [facility] 100 mg 2-16 capsule by [facility]y of capsule 00:00: mouth [place] 00 every 8 Medical (eight) Branch hours as needed for Cough. benzonatate 2021-08 Yes [id number] 100mg Take 1 [facility] 100 mg 2-16 capsule by ity of capsule 00:00: mouth [place] 00 every 8 Medical (eight) Branch hours as needed for Cough. benzonatate 2021-08 Yes [id number] 100mg Take 1 [facility] 100 mg 2-16 capsule by ity of capsule 00:00: mouth [place] 00 every 8 Medical (eight) Branch hours as needed for Cough. benzonatate 2021-08 Yes [id number] 100mg Take 1 [facility] 100 mg 2-16 capsule by ity of capsule 00:00: mouth [place] 00 every 8 Medical (eight) Branch hours as needed for Cough. benzonatate 2021-08 Yes [id number] 100mg Take 1 [facility] 100 mg 2-16 capsule by ity of capsule 00:00: mouth [place] 00 every 8 Medical (eight) Branch hours as needed for Cough. benzonatate 2021-08 Yes [id number] 100mg Take 1 [facility] 100 mg 2-16 capsule by [facility]y of capsule 00:00: mouth [place] 00 every 8 Medical (eight) Branch hours as needed for Cough. benzonatate 2021-08 Yes [id number] 100mg Take 1 [facility] 100 mg 2-16 capsule by ity of capsule 00:00: mouth [place] 00 every 8 Medical (eight) Branch hours as needed for Cough. benzonatate 2021-08 Yes [id number] 100mg Take 1 [facility] 100 mg 2-16 capsule by [facility]y of capsule 00:00: mouth [place] 00 every 8 Medical (eight) Branch hours as needed for Cough. benzonatate 2021-08 Yes [id number] 100mg Take 1 [facility] 100 mg 2-16 capsule by ity of capsule 00:00: mouth [place] 00 every 8 Medical (eight) Branch hours as needed for Cough. benzonatate 2021-08- No [id number] 100mg Take 1 [facility] 100 mg 2-16 02-10 capsule by ity of capsule 00:00: 00:00 mouth [place] 00 :00 every 8 Medical (eight) Branch hours as needed for Cough. LATUDA 2021-08 Yes PLEASE SEE Un [facility] mg tablet 0-27 ATTACHED ity of 00:00: FOR [place] 00 DETAILED Medical DIRECTIONS Branch LATUDA 20 2021-08 Yes PLEASE SEE Un [facility] mg tablet 0-27 ATTACHED ity of 00:00: FOR [place] 00 DETAILED Medical DIRECTIONS Branch LATUDA 20 2022-1 Yes PLEASE SEE Un [facility] mg tablet [...] DETAILED Medical DIRECTIONS Branch methIMAzole 2021- Yes [id number] 5mg Take 1 [facility] 5 mg tablet 0-25 tablet by ity of 00:00: mouth in [place] the morning. Branch methIMAzole 2021- Yes [id number] 5mg Take 1 [facility] 5 mg tablet 0-25 tablet by ity of 00:00: mouth in [place] the Medical morning. Branch methIMAzole 2021- Yes [id number] 5mg Take 1 [facility] 5 mg tablet 0-25 tablet by ity of 00:00: mouth in [place] the morning. Branch methIMAzole 2021- Yes [id number] 5mg Take 1 [facility] 5 mg tablet 0-25 tablet by ity of 00:00: mouth in [place] the morning. Branch methIMAzole 2021-08 Yes [id number] 5mg Take 1 [facility] 5 mg tablet 0-25 tablet by ity of 00:00: mouth in [place] the Medical morning. Branch methIMAzole 2021-08 Yes [id number] 5mg Take 1 [facility] 5 mg tablet 0-25 tablet by ity of 00:00: mouth in [place] the Medical morning. Branch methIMAzole 2021-08 Yes [id number] 5mg Take 1 [facility] 5 mg tablet 0-25 tablet by ity of 00:00: mouth in [place] the Medical morning. Branch methIMAzole 2021-08 Yes [id number] 5mg Take 1 [facility] 5 mg tablet 0-25 tablet by ity of 00:00: mouth in [place] the Medical morning. Branch methIMAzole 2021-08 Yes [id number] 5mg Take 1 [facility] 5 mg tablet 0-25 tablet by ity of 00:00: mouth in [place] the Medical morning. Branch methIMAzole 2021-08 Yes [id number] 5mg Take 1 [facility] 5 mg tablet 0-25 tablet by ity of 00:00: mouth in [place] the Medical morning. Branch methIMAzole 2021-08 Yes [id number] 5mg Take 1 [facility] 5 mg tablet 0-25 tablet by ity of 00:00: mouth in [place] the Medical morning. Branch methIMAzole 2021-08 Yes [id number] 5mg Take 1 [facility] 5 mg tablet 0-25 tablet by ity of 00:00: mouth in [place] the morning. Branch methIMAzole 2021-08 Yes [id number] 5mg Take 1 [facility] 5 mg tablet 0-25 tablet by ity of 00:00: mouth in [place] the morning. Branch methIMAzole 2021-08 Yes [id number] 5mg Take 1 [facility] 5 mg tablet 0-25 tablet by ity of 00:00: mouth in [place] the Medical morning. Branch methIMAzole 2021-08 Yes [id number] 5mg Take 1 [facility] 5 mg tablet 0-25 tablet by ity of 00:00: mouth in [place] the Medical morning. Branch methIMAzole 2021-08 Yes [id number] 5mg Take 1 [facility] 5 mg tablet 0-25 tablet by ity of 00:00: mouth in [place] the Medical morning. Branch methIMAzole 2021-08 Yes [id number] 5mg Take 1 [facility] 5 mg tablet 0-25 tablet by ity of 00:00: mouth in [place] the Medical morning. Branch methIMAzole 2021-08 Yes [id number] 5mg Take 1 [facility] 5 mg tablet 0-25 tablet by ity of 00:00: mouth in [place] the Medical morning. Branch methIMAzole 2021- Yes [id number] 5mg Take 1 [facility] 5 mg tablet 0-25 tablet by ity of 00:00: mouth in [place] the Medical morning. Branch methIMAzole 2021- Yes [id number] 5mg Take 1 [facility] 5 mg tablet 0-25 tablet by ity of 00:00: mouth in [place] the Medical morning. Branch methIMAzole 2021-08 Yes [id number] 5mg Take 1 [facility] 5 mg tablet 0-25 tablet by ity of 00:00: mouth in [place] the Medical morning. Branch methIMAzole 2021- Yes [id number] 5mg Take 1 [facility] 5 mg tablet 0-25 tablet by ity of 00:00: mouth in [place] the Medical morning. Branch methIMAzole 2021-08 Yes [id number] 5mg Take 1 [facility] 5 mg tablet 0-25 tablet by ity of 00:00: mouth in [place] the Medical morning. Branch methIMAzole 2021-08 Yes [id number] 5mg Take 1 [facility] 5 mg tablet 0-25 tablet by ity of 00:00: mouth in [place] the Medical morning. Branch methIMAzole 2021-08 Yes [id number] 5mg Take 1 [facility] 5 mg tablet 0-25 tablet by ity of 00:00: mouth in [place] the Medical morning. Branch methIMAzole 2021- Yes [id number] 5mg Take 1 [facility] 5 mg tablet 0-25 tablet by ity of 00:00: mouth in [place] the Medical morning. Branch methIMAzole 2021- Yes [id number] 5mg Take 1 [facility] 5 mg tablet 0-25 tablet by ity of 00:00: mouth in [place] the Medical morning. Branch methIMAzole 2021- Yes [id number] 5mg Take 1 [facility] 5 mg tablet 0-25 tablet by ity of 00:00: mouth in [place] the Medical morning. Branch methIMAzole 2021- Yes [id number] 5mg Take 1 [facility] 5 mg tablet 0-25 tablet by ity of 00:00: mouth in [place] the Medical morning. Branch methIMAzole 2021-08 Yes [id number] 5mg Take 1 [facility] 5 mg tablet 0-25 tablet by ity of 00:00: mouth in [place] the morning. Branch methIMAzole 2021-08 Yes [id number] 5mg Take 1 [facility] 5 mg tablet 0-25 tablet by ity of 00:00: mouth in [place] the morning. Branch methIMAzole 2021-08 Yes [id number] 5mg Take 1 [facility] 5 mg tablet 0-25 tablet by ity of 00:00: mouth in [place] the Medical morning. Branch methIMAzole 2021-08 Yes [id number] 5mg Take 1 [facility] 5 mg tablet 0-25 tablet by ity of 00:00: mouth in [place] the Medical morning. Branch methIMAzole 2021-08 Yes [id number] 5mg Take 1 [facility] 5 mg tablet 0-25 tablet by ity of 00:00: mouth in [place] the morning. Branch methIMAzole 2021-08 Yes [id number] 5mg Take 1 [facility] 5 mg tablet 0-25 tablet by ity of 00:00: mouth in [place] the morning. Branch methIMAzole 2021-08 Yes [id number] 5mg Take 1 [facility] 5 mg tablet 0-25 tablet by ity of 00:00: mouth in [place] the morning. Branch methIMAzole 2021-08 Yes [id number] 5mg Take 1 [facility] 5 mg tablet 0-25 tablet by ity of 00:00: mouth in [place] the morning. Branch methIMAzole 2021-08 Yes [id number] 5mg Take 1 [facility] 5 mg tablet 0-25 tablet by ity of 00:00: mouth in [place] the Medical morning. Branch methIMAzole 2021-08 Yes [id number] 5mg Take 1 [facility] 5 mg tablet 0-25 tablet by ity of 00:00: mouth in [place] the Medical morning. Branch methIMAzole 2021-08 Yes [id number] 5mg Take 1 [facility] 5 mg tablet 0-25 tablet by ity of 00:00: mouth in [place] the Medical morning. Branch methIMAzole 2021-08 Yes [id number] 5mg Take 1 [facility] 5 mg tablet 0-25 tablet by ity of 00:00: mouth in [place] the morning. Branch methIMAzole 2021-08 Yes [id number] 5mg Take 1 [facility] 5 mg tablet 0-25 tablet by ity of 00:00: mouth in [place] the morning. Branch methIMAzole 2021-08 Yes [id number] 5mg Take 1 [facility] 5 mg tablet 0-25 tablet by ity of 00:00: mouth in [place] the morning. Branch methIMAzole 2021-08 Yes [id number] 5mg Take 1 [facility] 5 mg tablet 0-25 tablet by ity of 00:00: mouth in [place] the Medical morning. Branch methIMAzole 2021-08 Yes [id number] 5mg Take 1 [facility] 5 mg tablet 0-25 tablet by ity of 00:00: mouth in [place] the morning. Branch methIMAzole 2021-08 Yes [id number] 5mg Take 1 [facility] 5 mg tablet 0-25 tablet by ity of 00:00: mouth in [place] the morning. Branch methIMAzole 2021-08 Yes [id number] 5mg Take 1 [facility] 5 mg tablet 0-25 tablet by ity of 00:00: mouth in [place] the morning. Branch methIMAzole 2021-08 Yes [id number] 5mg Take 1 [facility] 5 mg tablet 0-25 tablet by ity of 00:00: mouth in [place] the morning. Branch methIMAzole 2021-08 Yes [id number] 5mg Take 1 [facility] 5 mg tablet 0-25 tablet by ity of 00:00: mouth in [place] the morning. Branch methIMAzole 2021-08 Yes [id number] 5mg Take 1 [facility] 5 mg tablet 0-25 tablet by ity of 00:00: mouth in [place] the Medical morning. Branch methIMAzole 2021-08 Yes [id number] 5mg Take 1 [facility] 5 mg tablet 0-25 tablet by ity of 00:00: mouth in [place] the Medical morning. Branch methIMAzole 2021-08 Yes [id number] 5mg Take 1 [facility] 5 mg tablet 0-25 tablet by ity of 00:00: mouth in [place] the Medical morning. Branch methIMAzole 2021- Yes [id number] 5mg Take 1 [facility] 5 mg tablet 0-25 tablet by ity of 00:00: mouth in [place] 00 the Medical morning. Branch methIMAzole 2021-08 Yes [id number] 5mg Take 1 [facility] 5 mg tablet 0-25 tablet by ity of 00:00: mouth in [place] the Medical morning. Branch methIMAzole 2021-08 Yes [id number] 5mg Take 1 [facility] 5 mg tablet 0-25 tablet by ity of 00:00: mouth in [place] the Medical morning. Branch methIMAzole 2021-08 Yes [id number] 5mg Take 1 [facility] 5 mg tablet 0-25 tablet by ity of 00:00: mouth in [place] the Medical morning. Branch methIMAzole 2021-08 Yes [id number] 5mg Take 1 [facility] 5 mg tablet 0-25 tablet by ity of 00:00: mouth in [place] the Medical morning. Branch methIMAzole 2021-08 Yes [id number] 5mg Take 1 [facility] 5 mg tablet 0-25 tablet by ity of 00:00: mouth in [place] the Medical morning. Branch methIMAzole 2021-08 Yes [id number] 5mg Take 1 [facility] 5 mg tablet 0-25 tablet by ity of 00:00: mouth in [place] the Medical morning. Branch methIMAzole 2021-08 Yes [id number] 5mg Take 1 [facility] 5 mg tablet 0-25 tablet by ity of 00:00: mouth in [place] the Medical morning. Branch methIMAzole 2021-08 Yes [id number] 5mg Take 1 [facility] 5 mg tablet 0-25 tablet by ity of 00:00: mouth in [place] the Medical morning. Branch methIMAzole 2021-08 Yes [id number] 5mg Take 1 [facility] 5 mg tablet 0-25 tablet by ity of 00:00: mouth in [place] 00 the Medical morning. Branch methIMAzole 2021-08- No [id number] 5mg Take 1 [facility] 5 mg tablet 0-25 02-10 tablet by it y of 00:00: 00:00 mouth in [place] 00 :00 the Medical morning. Branch methIMAzole 2021-08- No [id number] 5mg Take 1 [facility] 5 mg tablet 0-25 02-10 tablet by it y of 00:00: 00:00 mouth in [place] 00 :00 the Medical morning. Branch methIMAzole 2021-08- No [id number] 5mg Take 1 [facility] 5 mg tablet 0-25 02-10 tablet by it y of 00:00: 00:00 mouth in [place] 00 :00 the Medical morning. Branch traMADoL 50 2021-08 Yes Univer s mg tablet 0-18 ity of 00:00: [place] [facility] Branch traMADoL 50 2021-08 Yes Univer s mg tablet 0-18 ity of 00:00: [place] 00 Medical Branch traMADoL 50 2021-08 Yes Univer s mg tablet 0-18 ity of 00:00: [place] [facility] traMADoL 50 2021-08 Yes Univer s mg tablet 0-18 ity of 00:00: [place] [facility] traMADoL 50 2021-08 Yes Univer s mg tablet 0-18 ity of 00:00: [place] 00 Medical Branch traMADoL 50 2021-08 Yes Univer s mg tablet 0-18 ity of 00:00: [place] [facility] traMADoL 50 2021-08 Yes Univer s mg tablet 0-18 ity of 00:00: [place] 00 Medical Branch traMADoL 50 2021-08 Yes Univer s mg tablet 0-18 ity of 00:00: [place] 00 Medical Branch traMADoL 50 2021-08 Yes Univer s mg tablet 0-18 ity of 00:00: [place] [facility] traMADoL 50 2021-08 Yes Univer s mg tablet 0-18 ity of 00:00: [place] 00 Medical Branch traMADoL 50 2021-08- No Unive rs mg tablet 0-18 11-18 ity of 00:00: 00:00 [place] 00 :00 Medical Branch traMADoL 50 2021-08- No Unive rs mg tablet 0-18 11-18 ity of 00:00: 00:00 [place] 00 :00 Medical Branch hydroxyprog 2021-08- No [id number] 275mg [facility] esterone(PF 0-14 -14 ity of ) (YI 14:30: 13:21 [place] AUTO-INJECT 00 :00 Medical OR) 275 Branch mg/1.1 mL injection 275 mg hydroxyprog 2021-08- No [id number] 275mg 275 mg, [facility] esterone(PF 0-14 -14 Subcutaneo i ty of ) (YI 14:30: 13:21 [place], [place], [place] AUTO-INJECT 00 :00 1 dose, On Me dical OR) 275 Fri Branch mg/1.1 mL 05/16/22 injection at 0930, 275 mg Routine hydroxyprog 2021-08- No [id number] 275mg [facility] esterone(PF 05-09 ity of ) (YI 15:15: 14:19 [place] AUTO-INJECT 00 :00 Medical OR) 275 Branch mg/1.1 mL injection 275 mg hydroxyprog 2021-08- No [id number] 275mg 275 mg, [facility] esterone(PF 05-09 Subcutaneo i ty of ) (YI 15:15: 14:19 [place], ONCE, [place] AUTO-INJECT 00 :00 1 dose, On Me dical OR) 275 Fri Branch mg/1.1 mL 05/09/22 at injection 1015, 275 mg Routine hydroxyprog 2021-0 2021- No [id number] 275mg [facility] esterone(PF 05-02 ity of ) (YI 21:45: 21:31 [place] AUTO-INJECT 00 :00 Medical OR) 275 Branch mg/1.1 mL injection 275 mg hydroxyprog 2021-0 2021- No [id number] 275mg 275 mg, [facility] esterone(PF 05-02 Subcutaneo i ty of ) (YI 21:45: 21:31 [place], ONCE, [place] AUTO-INJECT 00 :00 1 dose, On Me dical OR) 275 Fri Branch mg/1.1 mL 05/02/22 at injection 1645, 275 mg Routine hydroxyprog 2022-0 2021- No [id number] 275mg [facility] esterone(PF 05-02 ity of ) (YI 21:45: 21:31 [place] AUTO-INJECT 00 :00 Medical OR) 275 Branch mg/1.1 mL injection 275 mg hydroxyprog 2-0 202- No [id number] 275mg 275 mg, [facility] esterone(PF 05-02 Subcutaneo i ty of ) (YI 21:45: 21:31 [place], ONCE, [place] AUTO-INJECT 00 :00 1 dose, On Me dical OR) 275 Fri Branch mg/1.1 mL 05/02/22 at injection 1645, 275 mg Routine hydroxyprog 2-0 2- No [id number] 275mg [facility] esterone(PF 05-02 ity of ) (YI 21:45: 21:31 [place] AUTO-INJECT 00 :00 Medical OR) 275 Branch mg/1.1 mL injection 275 mg hydroxyprog 2021-0 2- No [id number] 275mg 275 mg, [facility] esterone(PF 05-02 Subcutaneo i ty of ) (YI :45: 21:31 [place], ONCE, [place] AUTO-INJECT 00 :00 1 dose, On Me dical OR) 275 Fri Branch mg/1.1 mL 05/02/22 at injection 1645, 275 mg Routine hydroxyprog 2021-0 2- No [id number] 275mg [facility] esterone(PF 04-25 ity of ) (YI 15:45: 14:56 [place] AUTO-INJECT 00 :00 Medical OR) 275 Branch mg/1.1 mL injection 275 mg hydroxyprog 2021-0 2021- No [id number] 275mg 275 mg, [facility] esterone(PF 04-25 Subcutaneo i ty of ) (YI 15:45: 14:56 [place], ONCE, [place] AUTO-INJECT 00 :00 1 dose, On Me dical OR) 275 Fri Branch mg/1.1 mL 04/25/22 at injection 1045, 275 mg Routine hydroxyprog 2021-0 2- No [id number] 275mg [facility] esterone(PF 04-25 ity of ) (YI 15:45: 14:56 [place] AUTO-INJECT 00 :00 Medical OR) 275 Branch mg/1.1 mL injection 275 mg hydroxyprog 2021-0 2- No [id number] 275mg 275 mg, [facility] esterone(PF 04-25 Subcutaneo [...] injection 00 Medical Branch YI, PF, 2021-0 2022- No Unive rs 275 mg/1.1 -16 -18 ity of mL 00:00: 00:00 [place] injection 00 :00 Medical Branch YI, PF, 2021-0 2022- No Unive rs 275 mg/1.1 04-18-18 ity of mL 00:00: 00:00 [place] injection 00 :00 Medical Branch cephALEXin 2021-0 Yes [id number] 500mg Take 1 [facility] (KEFLEX) 9-11 capsule by ity o f 500 mg 00:00: mouth in [place] capsule 00 the Medical morning Branch and 1 capsule in the evening. cephALEXin 2021-0 Yes [id number] 500mg Take 1 [facility] (KEFLEX) 9-11 capsule by ity o f 500 mg 00:00: mouth in [place] capsule 00 the Medical morning Branch and 1 capsule in the evening. cephALEXin 2021-0 Yes [id number] 500mg Take 1 [facility] (KEFLEX) 9-11 capsule by ity o f 500 mg 00:00: mouth in [place] capsule 00 the Medical morning Branch and 1 capsule in the evening. cephALEXin 2021-0 Yes [id number] 500mg Take 1 [facility] (KEFLEX) 9-11 capsule by ity o f 500 mg 00:00: mouth in [place] capsule 00 the Medical morning Branch and 1 capsule in the evening. cephALEXin 2021-0 Yes [id number] 500mg Take 1 [facility] (KEFLEX) 9-11 capsule by ity o f 500 mg 00:00: mouth in [place] capsule 00 the Medical morning Branch and 1 capsule in the evening. cephALEXin 2021-0 Yes [id number] 500mg Take 1 [facility] (KEFLEX) 9-11 capsule by ity o f 500 mg 00:00: mouth in [place] capsule 00 the Medical morning Branch and 1 capsule in the evening. cephALEXin 2022-0 Yes [id number] 500mg Take 1 [facility] (KEFLEX) 9-11 capsule by ity o f 500 mg 00:00: mouth in [place] capsule 00 the Medical morning Branch and 1 capsule in the evening. cephALEXin 2022-0 Yes [id number] 500mg Take 1 [facility] (KEFLEX) 9-11 capsule by ity o f 500 mg 00:00: mouth in [place] capsule 00 the Medical morning Branch and 1 capsule in the evening. cephALEXin 2022-0 Yes [id number] 500mg Take 1 [facility] (KEFLEX) 9-11 capsule by ity o f 500 mg 00:00: mouth in [place] capsule 00 the Medical morning Branch and 1 capsule in the evening. cephALEXin 2022-0 Yes [id number] 500mg Take 1 [facility] (KEFLEX) 9-11 capsule by ity o f 500 mg 00:00: mouth in [place] capsule 00 the Medical morning Branch and 1 capsule in the evening. cephALEXin 2022-0 Yes [id number] 500mg Take 1 [facility] (KEFLEX) 9-11 capsule by ity o f 500 mg 00:00: mouth in [place] capsule 00 the Medical morning Branch and 1 capsule in the evening. cephALEXin 2022-0 Yes [id number] 500mg Take 1 [facility] (KEFLEX) 9-11 capsule by ity o f 500 mg 00:00: mouth in [place] capsule 00 the Medical morning Branch and 1 capsule in the evening. cephALEXin 2022-0 Yes [id number] 500mg Take 1 [facility] (KEFLEX) 9-11 capsule by ity o f 500 mg 00:00: mouth in [place] capsule 00 the Medical morning Branch and 1 capsule in the evening. cephALEXin 2022-0 Yes [id number] 500mg Take 1 [facility] (KEFLEX) 9-11 capsule by ity o f 500 mg 00:00: mouth in [place] capsule 00 the Medical morning Branch and 1 capsule in the evening. cephALEXin 2022-0 Yes [id number] 500mg Take 1 [facility] (KEFLEX) 9-11 capsule by ity o f 500 mg 00:00: mouth in [place] capsule 00 the Medical morning Branch and 1 capsule in the evening. cephALEXin 2022-0 Yes [id number] 500mg Take 1 [facility] (KEFLEX) 9-11 capsule by ity o f 500 mg 00:00: mouth in [place] capsule 00 the Medical morning Branch and 1 capsule in the evening. cephALEXin 2022-0 Yes [id number] 500mg Take 1 [facility] (KEFLEX) 9-11 capsule by ity o f 500 mg 00:00: mouth in [place] capsule 00 the Medical morning Branch and 1 capsule in the evening. cephALEXin 2022-0 Yes [id number] 500mg Take 1 [facility] (KEFLEX) 9-11 capsule by ity o f 500 mg 00:00: mouth in [place] capsule 00 the Medical morning Branch and 1 capsule in the evening. cephALEXin 2022-0 Yes [id number] 500mg Take 1 [facility] (KEFLEX) 9-11 capsule by ity o f 500 mg 00:00: mouth in [place] capsule 00 the Medical morning Branch and 1 capsule in the evening. cephALEXin 2022-0 Yes [id number] 500mg Take 1 [facility] (KEFLEX) 9-11 capsule by ity o f 500 mg 00:00: mouth in [place] capsule 00 the Medical morning Branch and 1 capsule in the evening. cephALEXin 2022-0 Yes [id number] 500mg Take 1 [facility] (KEFLEX) 9-11 capsule by ity o f 500 mg 00:00: mouth in [place] capsule 00 the Medical morning Branch and 1 capsule in the evening. cephALEXin 2022-0 Yes [id number] 500mg Take 1 [facility] (KEFLEX) 9-11 capsule by ity o f 500 mg 00:00: mouth in [place] capsule 00 the Medical morning Branch and 1 capsule in the evening. cephALEXin 2022-0 Yes [id number] 500mg Take 1 [facility] (KEFLEX) 9-11 capsule by ity o f 500 mg 00:00: mouth in [place] capsule 00 the Medical morning Branch and 1 capsule in the evening. cephALEXin 2022-0 Yes [id number] 500mg Take 1 [facility] (KEFLEX) 9-11 capsule by ity o f 500 mg 00:00: mouth in [place] capsule 00 the Medical morning Branch and 1 capsule in the evening. cephALEXin 2022-0 Yes [id number] 500mg Take 1 [facility] (KEFLEX) 9-11 capsule by ity o f 500 mg 00:00: mouth in [place] capsule 00 the Medical morning Branch and 1 capsule in the evening. cephALEXin 2022-0 Yes [id number] 500mg Take 1 [facility] (KEFLEX) 9-11 capsule by ity o f 500 mg 00:00: mouth in [place] capsule 00 the Medical morning Branch and 1 capsule in the evening. cephALEXin 2022-0 Yes [id number] 500mg Take 1 [facility] (KEFLEX) 9-11 capsule by ity o f 500 mg 00:00: mouth in [place] capsule 00 the Medical morning Branch and 1 capsule in the evening. cephALEXin 2022-0 Yes [id number] 500mg Take 1 [facility] (KEFLEX) 9-11 capsule by ity o f 500 mg 00:00: mouth in [place] capsule 00 the Medical morning Branch and 1 capsule in the evening. cephALEXin 2022-0 Yes [id number] 500mg Take 1 [facility] (KEFLEX) 9-11 capsule by ity o f 500 mg 00:00: mouth in [place] capsule 00 the Medical morning Branch and 1 capsule in the evening. cephALEXin 2021-0 2022- No [id number] 500mg Take 1 [facility] (KEFLEX) 9-11 10-21 capsule by ity of 500 mg 00:00: 00:00 mouth in [place] capsule 00 :00 the [facility] morning Branch and 1 capsule in the evening. cephALEXin 2021-0 2022- No [id number] 500mg Take 1 [facility] (KEFLEX) 9-11 10-21 capsule by ity of 500 mg 00:00: 00:00 mouth in [place] capsule 00 :00 the Medical morning Branch and 1 capsule in the evening. cephALEXin 2-0 2022- No [id number] 500mg Take 1 [facility] (KEFLEX) 9-11 10-21 capsule by ity of 500 mg 00:00: 00:00 mouth in [place] capsule 00 :00 the Medical morning Branch and 1 capsule in the evening. cephALEXin 2021-0 2022- No [id number] 500mg Take 1 [facility] (KEFLEX) 9-11 10-21 capsule by ity of 500 mg 00:00: 00:00 mouth in [place] capsule 00 :00 the Medical morning Branch and 1 capsule in the evening. metroNIDAZO 2021-0 2021- No 500mg 500 mg, [facility] STILL (FLAGYL) 04-11 Oral, ity of tablet 500 23:15: 23:48 ONCE, 1 [facility] as mg 00 :00 dose, On Medical Thu04/11/22 Branch at 1815, Routine
Reason for Anti-Infec tive: Documented Infection< br>Documen vivek Infection Site: Other
O ther site: vaginal
Duration of Therapy: 7 days metroNIDAZO 2022-0 Yes [id number] 500mg Take 1 [facility] (FLAGYL) 9-09 tablet by [facility] of 500 mg 00:00: mouth [place] tablet 00 every 12 Medical (twelve) Branch hours. metroNIDAZO 2022-0 Yes [id number] 500mg Take 1 [facility] (FLAGYL) 9-09 tablet by [facility] of 500 mg 00:00: mouth [place] tablet 00 every 12 Medical (twelve) Branch hours. metroNIDAZO 2022-0 Yes [id number] 500mg Take 1 [facility] (FLAGYL) 9-09 tablet by ity of 500 mg 00:00: mouth [place] tablet 00 every 12 Medical (twelve) Branch hours. metroNIDAZO 2022-0 Yes [id number] 500mg Take 1 [facility] (FLAGYL) 9-09 tablet by [facility] of 500 mg 00:00: mouth [place] tablet 00 every 12 Medical (twelve) Branch hours. metroNIDAZO 2-0 Yes [id number] 500mg Take 1 [facility] (FLAGYL) 9-09 tablet by [facility] of 500 mg 00:00: mouth [place] tablet 00 every 12 Medical (twelve) Branch hours. metroNIDAZO 2-0 Yes [id number] 500mg Take 1 [facility] (FLAGYL) 9-09 tablet by it[facility] of 500 mg 00:00: mouth [place] tablet 00 every 12 Medical (twelve) Branch hours. metroNIDAZO 2022-0 Yes [id number] 500mg Take 1 [facility] (FLAGYL) 9-09 tablet by [facility] of 500 mg 00:00: mouth [place] tablet 00 every 12 Medical (twelve) Branch hours. metroNIDAZO 2-0 Yes [id number] 500mg Take 1 [facility] (FLAGYL) 9-09 tablet by [facility] of 500 mg 00:00: mouth [place] tablet 00 every 12 Medical (twelve) Branch hours. metroNIDAZO 2022-0 Yes [id number] 500mg Take 1 [facility] (FLAGYL) 9-09 tablet by [facility] of 500 mg 00:00: mouth [place] tablet 00 every 12 Medical (twelve) Branch hours. metroNIDAZO 2022-0 Yes [id number] 500mg Take 1 [facility] (FLAGYL) 9-09 tablet by it[facility] of 500 mg 00:00: mouth [place] tablet 00 every 12 Medical (twelve) Branch hours. metroNIDAZO 2022-0 Yes [id number] 500mg Take 1 [facility] (FLAGYL) 9-09 tablet by [facility] of 500 mg 00:00: mouth [place] tablet 00 every 12 Medical (twelve) Branch hours. metroNIDAZO 2022-0 Yes [id number] 500mg Take 1 [facility] (FLAGYL) 9-09 tablet by [facility] of 500 mg 00:00: mouth [place] tablet 00 every 12 Medical (twelve) Branch hours. metroNIDAZO 2-0 Yes [id number] 500mg Take 1 [facility] (FLAGYL) 9-09 tablet by [facility] of 500 mg 00:00: mouth [place] tablet 00 every 12 Medical (twelve) Branch hours. metroNIDAZO 2-0 Yes [id number] 500mg Take 1 [facility] (FLAGYL) 9-09 tablet by [facility] of 500 mg 00:00: mouth [place] tablet 00 every 12 Medical (twelve) Branch hours. metroNIDAZO 2021-0 Yes [id number] 500mg Take 1 [facility] (FLAGYL) 9-09 tablet by [facility] of 500 mg 00:00: mouth [place] tablet 00 every 12 Medical (twelve) Branch hours. metroNIDAZO 2021-0 Yes [id number] 500mg Take 1 [facility] (FLAGYL) 9-09 tablet by [facility] of 500 mg 00:00: mouth [place] tablet 00 every 12 Medical (twelve) Branch hours. metroNIDAZO 2-0 Yes [id number] 500mg Take 1 [facility] (FLAGYL) 9-09 tablet by [facility] of 500 mg 00:00: mouth [place] tablet 00 every 12 Medical (twelve) Branch hours. metroNIDAZO 2-0 Yes [id number] 500mg Take 1 [facility] (FLAGYL) 9-09 tablet by ity of 500 mg 00:00: mouth [place] tablet 00 every 12 Medical (twelve) Branch hours. metroNIDAZO 2022-0 Yes [id number] 500mg Take 1 [facility] (FLAGYL) 9-09 tablet by it[facility] of 500 mg 00:00: mouth [place] tablet 00 every 12 Medical (twelve) Branch hours. metroNIDAZO 2022-0 Yes [id number] 500mg Take 1 [facility] (FLAGYL) 9-09 tablet by ity of 500 mg 00:00: mouth [place] tablet 00 every 12 Medical (twelve) Branch hours. metroNIDAZO 2-0 Yes [id number] 500mg Take 1 [facility] (FLAGYL) 9-09 tablet by ity of 500 mg 00:00: mouth [place] tablet 00 every 12 Medical (twelve) Branch hours. metroNIDAZO 2022-0 Yes [id number] 500mg Take 1 [facility] (FLAGYL) 9-09 tablet by it[facility] of 500 mg 00:00: mouth [place] tablet 00 every 12 Medical (twelve) Branch hours. metroNIDAZO 2-0 Yes [id number] 500mg Take 1 [facility] (FLAGYL) 9-09 tablet by [facility] of 500 mg 00:00: mouth [place] tablet 00 every 12 Medical (twelve) Branch hours. metroNIDAZO 2-0 Yes [id number] 500mg Take 1 [facility] (FLAGYL) 9-09 tablet by it[facility] of 500 mg 00:00: mouth [place] tablet 00 every 12 Medical (twelve) Branch hours. metroNIDAZO 2021-0 Yes [id number] 500mg Take 1 [facility] (FLAGYL) 9-09 tablet by it[facility] of 500 mg 00:00: mouth [place] tablet 00 every 12 Medical (twelve) Branch hours. metroNIDAZO 2021-0 Yes [id number] 500mg Take 1 [facility] (FLAGYL) 9-09 tablet by [facility] of 500 mg 00:00: mouth [place] tablet 00 every 12 Medical (twelve) Branch hours. metroNIDAZO 2021-0 Yes [id number] 500mg Take 1 [facility] (FLAGYL) 9-09 tablet by [facility] of 500 mg 00:00: mouth [place] tablet 00 every 12 Medical (twelve) Branch hours. metroNIDAZO 2021-0 Yes [id number] 500mg Take 1 [facility] (FLAGYL) 9-09 tablet by it[facility] of 500 mg 00:00: mouth [place] tablet 00 every 12 Medical (twelve) Branch hours. metroNIDAZO 2022-0 Yes [id number] 500mg Take 1 [facility] (FLAGYL) 9-09 tablet by it[facility] of 500 mg 00:00: mouth [place] tablet 00 every 12 Medical (twelve) Branch hours. metroNIDAZO 2-0 Yes [id number] 500mg Take 1 [facility] (FLAGYL) 9-09 tablet by [facility] of 500 mg 00:00: mouth [place] tablet 00 every 12 Medical (twelve) Branch hours. metroNIDAZO 2-0 Yes [id number] 500mg Take 1 [facility] (FLAGYL) 9-09 tablet by ity of 500 mg 00:00: mouth [place] tablet 00 every 12 Medical (twelve) Branch hours. metroNIDAZO 2-0 Yes [id number] 500mg Take 1 [facility] (FLAGYL) 9-09 tablet by ity of 500 mg 00:00: mouth [place] tablet 00 every 12 Medical (twelve) Branch hours. metroNIDAZO 2022-0 Yes [id number] 500mg Take 1 [facility] (FLAGYL) 9-09 tablet by [facility] of 500 mg 00:00: mouth [place] tablet 00 every 12 Medical (twelve) Branch hours. metroNIDAZO 2021-0 Yes [id number] 500mg Take 1 [facility] (FLAGYL) 9-09 tablet by [facility] of 500 mg 00:00: mouth [place] tablet 00 every 12 Medical (twelve) Branch hours. metroNIDAZO 2021-0 Yes [id number] 500mg Take 1 [facility] (FLAGYL) 9-09 tablet by ity of 500 mg 00:00: mouth [place] tablet 00 every 12 Medical (twelve) Branch hours. metroNIDAZO 2021-0 Yes [id number] 500mg Take 1 [facility] (FLAGYL) 9-09 tablet by it[facility] of 500 mg 00:00: mouth [place] tablet 00 every 12 Medical (twelve) Branch hours. metroNIDAZO 2021-0 Yes [id number] 500mg Take 1 [facility] (FLAGYL) 9-09 tablet by it[facility] of 500 mg 00:00: mouth [place] tablet 00 every 12 Medical (twelve) Branch hours. metroNIDAZO 2021-0 Yes [id number] 500mg Take 1 [facility] (FLAGYL) 9-09 tablet by ity of 500 mg 00:00: mouth [place] tablet 00 every 12 Medical (twelve) Branch hours. metroNIDAZO 2-0 Yes [id number] 500mg Take 1 [facility] (FLAGYL) 9-09 tablet by it[facility] of 500 mg 00:00: mouth [place] tablet 00 every 12 Medical (twelve) Branch hours. metroNIDAZO 2-0 Yes [id number] 500mg Take 1 [facility] (FLAGYL) 9-09 tablet by it[facility] of 500 mg 00:00: mouth [place] tablet 00 every 12 Medical (twelve) Branch hours. metroNIDAZO 2-0 Yes [id number] 500mg Take 1 [facility] (FLAGYL) 9-09 tablet by it[facility] of 500 mg 00:00: mouth [place] tablet 00 every 12 Medical (twelve) Branch hours. metroNIDAZO 2022-0 Yes [id number] 500mg Take 1 [facility] (FLAGYL) 9-09 tablet by ity of 500 mg 00:00: mouth [place] tablet 00 every 12 Medical (twelve) Branch hours. metroNIDAZO 2-0 2- No [id number] 500mg Take 1 [facility] (FLAGYL) -04 13-18 tablet by it y of 500 mg 00:00: 00:00 mouth [place] tablet 00 :00 every 12 Medical (twelve) Branch hours. metroNIDAZO 2-0 2022- No [id number] 500mg Take 1 [facility] (FLAGYL) -04 13-18 tablet by it y of 500 mg 00:00: 00:00 mouth [place] tablet 00 :00 every 12 Medical (twelve) Branch hours. metoclopram 2-0 Yes [id number] 10mg Take 1 [facility] HCl 10 8-31 tablet by ity of mg tablet 00:00: mouth [place] 00 every 6 Medical (six) Branch hours as needed for Nausea and Vomiting (N/V) or Gastroesop hageal reflux. famotidine 2-0 Yes [id number] 20mg Take 1 [facility] nivers 20 mg 8-31 tablet by ity of tablet 00:00: mouth in [place] 00 the Medical morning Branch and 1 tablet in the evening. metoclopram 2022-0 Yes [id number] 10mg Take 1 [facility] HCl 10 8-31 tablet by it[facility] of mg tablet 00:00: mouth [place] 00 every 6 Medical (six) Branch hours as needed for Nausea and Vomiting (N/V) or Gastroesop hageal reflux. famotidine 2022-0 Yes [id number] 20mg Take 1 [facility] nivers 20 mg 8-31 tablet by ity of tablet 00:00: mouth in [place] 00 the Medical morning Branch and 1 tablet in the evening. metoclopram 2022-0 Yes [id number] 10mg Take 1 [facility] HCl 10 8-31 tablet by ity of mg tablet 00:00: mouth [place] 00 every 6 Medical (six) Branch hours as needed for Nausea and Vomiting (N/V) or Gastroesop hageal reflux. famotidine 2022-0 Yes [id number] 20mg Take 1 [facility] nivers 20 mg 8-31 tablet by ity of tablet 00:00: mouth in [place] 00 the Medical morning Branch and 1 tablet in the evening. metoclopram 2022-0 Yes [id number] 10mg Take 1 [facility] HCl 10 8-31 tablet by ity of mg tablet 00:00: mouth [place] 00 every 6 Medical (six) Branch hours as needed for Nausea and Vomiting (N/V) or Gastroesop hageal reflux. famotidine 2022-0 Yes [id number] 20mg Take 1 [facility] nivers 20 mg 8-31 tablet by ity of tablet 00:00: mouth in [place] 00 the Medical morning Branch and 1 tablet in the evening. metoclopram 2022-0 Yes [id number] 10mg Take 1 [facility] HCl 10 8-31 tablet by ity of mg tablet 00:00: mouth [place] 00 every 6 Medical (six) Branch hours as needed for Nausea and Vomiting (N/V) or Gastroesop hageal reflux. famotidine 2022-0 Yes [id number] 20mg Take 1 [facility] nivers 20 mg 8-31 tablet by ity of tablet 00:00: mouth in [place] 00 the Medical morning Branch and 1 tablet in the evening. metoclopram 2022-0 Yes [id number] 10mg Take 1 [facility] HCl 10 8-31 tablet by it[facility] of mg tablet 00:00: mouth [place] 00 every 6 Medical (six) Branch hours as needed for Nausea and Vomiting (N/V) or Gastroesop hageal reflux. famotidine 2022-0 Yes [id number] 20mg Take 1 [facility] nivers 20 mg 8-31 tablet by ity of tablet 00:00: mouth in [place] 00 the Medical morning Branch and 1 tablet in the evening. metoclopram 2022-0 Yes [id number] 10mg Take 1 [facility] HCl 10 8-31 tablet by ity of mg tablet 00:00: mouth [place] 00 every 6 Medical (six) Branch hours as needed for Nausea and Vomiting (N/V) or Gastroesop hageal reflux. famotidine 2022-0 Yes [id number] 20mg Take 1 [facility] nivers 20 mg 8-31 tablet by ity of tablet 00:00: mouth in [place] 00 the Medical morning Branch and 1 tablet in the evening. metoclopram 2022-0 Yes [id number] 10mg Take 1 [facility] HCl 10 8-31 tablet by ity of mg tablet 00:00: mouth [place] 00 every 6 Medical (six) Branch hours as needed for Nausea and Vomiting (N/V) or Gastroesop hageal reflux. famotidine 2022-0 Yes [id number] 20mg Take 1 [facility] nivers 20 mg 8-31 tablet by ity of tablet 00:00: mouth in [place] 00 the Medical morning Branch and 1 tablet in the evening. metoclopram 2022-0 Yes [id number] 10mg Take 1 [facility] HCl 10 8-31 tablet by ity of mg tablet 00:00: mouth [place] 00 every 6 Medical (six) Branch hours as needed for Nausea and Vomiting (N/V) or Gastroesop hageal reflux. famotidine 2022-0 Yes [id number] 20mg Take 1 [facility] nivers 20 mg 8-31 tablet by ity of tablet 00:00: mouth in [place] 00 the Medical morning Branch and 1 tablet in the evening. metoclopram 2022-0 Yes [id number] 10mg Take 1 [facility] HCl 10 8-31 tablet by ity of mg tablet 00:00: mouth [place] 00 every 6 Medical (six) Branch hours as needed for Nausea and Vomiting (N/V) or Gastroesop hageal reflux. famotidine 2022-0 Yes [id number] 20mg Take 1 [facility] nivers 20 mg 8-31 tablet by ity of tablet 00:00: mouth in [place] 00 the Medical morning Branch and 1 tablet in the evening. metoclopram 2022-0 Yes [id number] 10mg Take 1 [facility] HCl 10 8-31 tablet by ity of mg tablet 00:00: mouth [place] 00 every 6 Medical (six) Branch hours as needed for Nausea and Vomiting (N/V) or Gastroesop hageal reflux. famotidine 2022-0 Yes [id number] 20mg Take 1 [facility] nivers 20 mg 8-31 tablet by ity of tablet 00:00: mouth in [place] 00 the Medical morning Branch and 1 tablet in the evening. metoclopram 2022-0 Yes [id number] 10mg Take 1 [facility] HCl 10 8-31 tablet by ity of mg tablet 00:00: mouth [place] 00 every 6 Medical (six) Branch hours as needed for Nausea and Vomiting (N/V) or Gastroesop hageal reflux. famotidine 2022-0 Yes [id number] 20mg Take 1 [facility] nivers 20 mg 8-31 tablet by ity of tablet 00:00: mouth in [place] 00 the Medical morning Branch and 1 tablet in the evening. metoclopram 2022-0 Yes [id number] 10mg Take 1 [facility] HCl 10 8-31 tablet by ity of mg tablet 00:00: mouth [place] 00 every 6 Medical (six) Branch hours as needed for Nausea and Vomiting (N/V) or Gastroesop hageal reflux. famotidine 2022-0 Yes [id number] 20mg Take 1 [facility] nivers 20 mg 8-31 tablet by ity of tablet 00:00: mouth in [place] 00 the Medical morning Branch and 1 tablet in the evening. metoclopram 2022-0 Yes [id number] 10mg Take 1 [facility] HCl 10 8-31 tablet by ity of mg tablet 00:00: mouth [place] [address] every 6 Medical (six) Branch hours as needed for Nausea and Vomiting (N/V) or Gastroesop hageal reflux. famotidine 2022-0 Yes [id number] 20mg Take 1 [facility] nivers 20 mg 8-31 tablet by ity of tablet 00:00: mouth in [place] 00 the Medical morning Branch and 1 tablet in the evening. metoclopram 2022-0 Yes [id number] 10mg Take 1 [facility] HCl 10 8-31 tablet by ity of mg tablet 00:00: mouth [place] 00 every 6 Medical (six) Branch hours as needed for Nausea and Vomiting (N/V) or Gastroesop hageal reflux. famotidine 2022-0 Yes [id number] 20mg Take 1 [facility] nivers 20 mg 8-31 tablet by ity of tablet 00:00: mouth in [place] 00 the Medical morning Branch and 1 tablet in the evening. metoclopram 2022-0 Yes [id number] 10mg Take 1 [facility] HCl 10 8-31 tablet by it[facility] of mg tablet 00:00: mouth [place] 00 every 6 Medical (six) Branch hours as needed for Nausea and Vomiting (N/V) or Gastroesop hageal reflux. famotidine 2022-0 Yes [id number] 20mg Take 1 [facility] nivers 20 mg 8-31 tablet by ity of tablet 00:00: mouth in [place] 00 the Medical morning Branch and 1 tablet in the evening. metoclopram 2022-0 Yes [id number] 10mg Take 1 [facility] HCl 10 8-31 tablet by it[facility] of mg tablet 00:00: mouth [place] 00 every 6 Medical (six) Branch hours as needed for Nausea and Vomiting (N/V) or Gastroesop hageal reflux. famotidine 2022-0 Yes [id number] 20mg Take 1 [facility] nivers 20 mg 8-31 tablet by ity of tablet 00:00: mouth in [place] 00 the Medical morning Branch and 1 tablet in the evening. metoclopram 2022-0 Yes [id number] 10mg Take 1 [facility] HCl 10 8-31 tablet by it[facility] of mg tablet 00:00: mouth [place] 00 every 6 Medical (six) Branch hours as needed for Nausea and Vomiting (N/V) or Gastroesop hageal reflux. famotidine 2022-0 Yes [id number] 20mg Take 1 [facility] nivers 20 mg 8-31 tablet by ity of tablet 00:00: mouth in [place] 00 the Medical morning Branch and 1 tablet in the evening. metoclopram 2022-0 Yes [id number] 10mg Take 1 [facility] HCl 10 8-31 tablet by ity of mg tablet 00:00: mouth [place] [address] every 6 Medical (six) Branch hours as needed for Nausea and Vomiting (N/V) or Gastroesop hageal reflux. famotidine 2022-0 Yes [id number] 20mg Take 1 [facility] nivers 20 mg 8-31 tablet by ity of tablet 00:00: mouth in [place] 00 the Medical morning Branch and 1 tablet in the evening. metoclopram 2022-0 Yes [id number] 10mg Take 1 [facility] HCl 10 8-31 tablet by it[facility] of mg tablet 00:00: mouth [place] 00 every 6 Medical (six) Branch hours as needed for Nausea and Vomiting (N/V) or Gastroesop hageal reflux. famotidine 2022-0 Yes [id number] 20mg Take 1 [facility] nivers 20 mg 8-31 tablet by ity of tablet 00:00: mouth in [place] 00 the Medical morning Branch and 1 tablet in the evening. metoclopram 2022-0 Yes [id number] 10mg Take 1 [facility] HCl 10 8-31 tablet by it[facility] of mg tablet 00:00: mouth [place] 00 every 6 Medical (six) Branch hours as needed for Nausea and Vomiting (N/V) or Gastroesop hageal reflux. famotidine 2022-0 Yes [id number] 20mg Take 1 [facility] nivers 20 mg 8-31 tablet by ity of tablet 00:00: mouth in [place] 00 the Medical morning Branch and 1 tablet in the evening. metoclopram 2022-0 Yes [id number] 10mg Take 1 [facility] HCl 10 8-31 tablet by it[facility] of mg tablet 00:00: mouth [place] 00 every 6 Medical (six) Branch hours as needed for Nausea and Vomiting (N/V) or Gastroesop hageal reflux. famotidine 2022-0 Yes [id number] 20mg Take 1 [facility] nivers 20 mg 8-31 tablet by ity of tablet 00:00: mouth in [place] 00 the Medical morning Branch and 1 tablet in the evening. metoclopram 2022-0 Yes [id number] 10mg Take 1 [facility] HCl 10 8-31 tablet by ity of mg tablet 00:00: mouth [place] [address] every 6 Medical (six) Branch hours as needed for Nausea and Vomiting (N/V) or Gastroesop hageal reflux. famotidine 2022-0 Yes [id number] 20mg Take 1 [facility] nivers 20 mg 8-31 tablet by ity of tablet 00:00: mouth in [place] 00 the Medical morning Branch and 1 tablet in the evening. metoclopram 2022-0 Yes [id number] 10mg Take 1 [facility] HCl 10 8-31 tablet by ity of mg tablet 00:00: mouth [place] 00 every 6 Medical (six) Branch hours as needed for Nausea and Vomiting (N/V) or Gastroesop hageal reflux. famotidine 2022-0 Yes [id number] 20mg Take 1 [facility] nivers 20 mg 8-31 tablet by ity of tablet 00:00: mouth in [place] 00 the Medical morning Branch and 1 tablet in the evening. metoclopram 2022-0 Yes [id number] 10mg Take 1 [facility] HCl 10 8-31 tablet by ity of mg tablet 00:00: mouth [place] 00 every 6 Medical (six) Branch hours as needed for Nausea and Vomiting (N/V) or Gastroesop hageal reflux. famotidine 2022-0 Yes [id number] 20mg Take 1 [facility] nivers 20 mg 8-31 tablet by ity of tablet 00:00: mouth in [place] 00 the Medical morning Branch and 1 tablet in the evening. metoclopram 2022-0 Yes [id number] 10mg Take 1 [facility] HCl 10 8-31 tablet by ity of mg tablet 00:00: mouth [place] 00 every 6 Medical (six) Branch hours as needed for Nausea and Vomiting (N/V) or Gastroesop hageal reflux. famotidine 2022-0 Yes [id number] 20mg Take 1 [facility] nivers 20 mg 8-31 tablet by ity of tablet 00:00: mouth in [place] 00 the Medical morning Branch and 1 tablet in the evening. metoclopram 2022-0 Yes [id number] 10mg Take 1 [facility] HCl 10 8-31 tablet by ity of mg tablet 00:00: mouth [place] 00 every 6 Medical (six) Branch hours as needed for Nausea and Vomiting (N/V) or Gastroesop hageal reflux. famotidine 2022-0 Yes [id number] 20mg Take 1 [facility] nivers 20 mg 8-31 tablet by ity of tablet 00:00: mouth in [place] 00 the Medical morning Branch and 1 tablet in the evening. metoclopram 2022-0 Yes [id number] 10mg Take 1 [facility] HCl 10 8-31 tablet by ity of mg tablet 00:00: mouth [place] [address] every 6 Medical (six) Branch hours as needed for Nausea and Vomiting (N/V) or Gastroesop hageal reflux. famotidine 2022-0 Yes [id number] 20mg Take 1 [facility] nivers 20 mg 8-31 tablet by ity of tablet 00:00: mouth in [place] 00 the Medical morning Branch and 1 tablet in the evening. metoclopram 2022-0 Yes [id number] 10mg Take 1 [facility] HCl 10 8-31 tablet by ity of mg tablet 00:00: mouth [place] 00 every 6 Medical (six) Branch hours as needed for Nausea and Vomiting (N/V) or Gastroesop hageal reflux. famotidine 2022-0 Yes [id number] 20mg Take 1 [facility] nivers 20 mg 8-31 tablet by ity of tablet 00:00: mouth in [place] 00 the Medical morning Branch and 1 tablet in the evening. metoclopram 2022-0 Yes [id number] 10mg Take 1 [facility] HCl 10 8-31 tablet by ity of mg tablet 00:00: mouth [place] 00 every 6 Medical (six) Branch hours as needed for Nausea and Vomiting (N/V) or Gastroesop hageal reflux. famotidine 2022-0 Yes [id number] 20mg Take 1 [facility] nivers 20 mg 8-31 tablet by it[facility] of tablet 00:00: mouth in [place] 00 the Medical morning Branch and 1 tablet in the evening. metoclopram 2022-0 Yes [id number] 10mg Take 1 [facility] HCl 10 8-31 tablet by ity of mg tablet 00:00: mouth [place] 00 every 6 Medical (six) Branch hours as needed for Nausea and Vomiting (N/V) or Gastroesop hageal reflux. famotidine 2022-0 Yes [id number] 20mg Take 1 [facility] nivers 20 mg 8-31 tablet by it[facility] of tablet 00:00: mouth in [place] 00 the Medical morning Branch and 1 tablet in the evening. metoclopram 2022-0 Yes [id number] 10mg Take 1 [facility] HCl 10 8-31 tablet by ity of mg tablet 00:00: mouth [place] 00 every 6 Medical (six) Branch hours as needed for Nausea and Vomiting (N/V) or Gastroesop hageal reflux. famotidine 2022-0 Yes [id number] 20mg Take 1 [facility] nivers 20 mg 8-31 tablet by ity of tablet 00:00: mouth in [place] 00 the Medical morning Branch and 1 tablet in the evening. metoclopram 2022-0 Yes [id number] 10mg Take 1 [facility] HCl 10 8-31 tablet by ity of mg tablet 00:00: mouth [place] 00 every 6 Medical (six) Branch hours as needed for Nausea and Vomiting (N/V) or Gastroesop hageal reflux. famotidine 2022-0 Yes [id number] 20mg Take 1 [facility] nivers 20 mg 8-31 tablet by it[facility] of tablet 00:00: mouth in [place] 00 the Medical morning Branch and 1 tablet in the evening. metoclopram 2022-0 Yes [id number] 10mg Take 1 [facility] HCl 10 8-31 tablet by it[facility] of mg tablet 00:00: mouth [place] 00 every 6 Medical (six) Branch hours as needed for Nausea and Vomiting (N/V) or Gastroesop hageal reflux. famotidine 2022-0 Yes [id number] 20mg Take 1 [facility] nivers 20 mg 8-31 tablet by it[facility] of tablet 00:00: mouth in [place] 00 the Medical morning Branch and 1 tablet in the evening. metoclopram 2022-0 Yes [id number] 10mg Take 1 [facility] HCl 10 8-31 tablet by ity of mg tablet 00:00: mouth [place] 00 every 6 Medical (six) Branch hours as needed for Nausea and Vomiting (N/V) or Gastroesop hageal reflux. famotidine 2022-0 Yes [id number] 20mg Take 1 [facility] nivers 20 mg 8-31 tablet by it[facility] of tablet 00:00: mouth in [place] 00 the Medical morning Branch and 1 tablet in the evening. metoclopram 2022-0 Yes [id number] 10mg Take 1 [facility] HCl 10 8-31 tablet by ity of mg tablet 00:00: mouth [place] 00 every 6 Medical (six) Branch hours as needed for Nausea and Vomiting (N/V) or Gastroesop hageal reflux. famotidine 2022-0 Yes [id number] 20mg Take 1 [facility] nivers 20 mg 8-31 tablet by ity of tablet 00:00: mouth in [place] 00 the Medical morning Branch and 1 tablet in the evening. metoclopram 2022-0 Yes [id number] 10mg Take 1 [facility] HCl 10 8-31 tablet by ity of mg tablet 00:00: mouth [place] 00 every 6 Medical (six) Branch hours as needed for Nausea and Vomiting (N/V) or Gastroesop hageal reflux. famotidine 2022-0 Yes [id number] 20mg Take 1 [facility] nivers 20 mg 8-31 tablet by ity of tablet 00:00: mouth in [place] 00 the Medical morning Branch and 1 tablet in the evening. metoclopram 2022-0 Yes [id number] 10mg Take 1 [facility] HCl 10 8-31 tablet by ity of mg tablet 00:00: mouth [place] 00 every 6 Medical (six) Branch hours as needed for Nausea and Vomiting (N/V) or Gastroesop hageal reflux. famotidine 2022-0 Yes [id number] 20mg Take 1 [facility] nivers 20 mg 8-31 tablet by ity of tablet 00:00: mouth in [place] 00 the Medical morning Branch and 1 tablet in the evening. metoclopram 2022-0 Yes [id number] 10mg Take 1 [facility] HCl 10 8-31 tablet by ity of mg tablet 00:00: mouth [place] 00 every 6 Medical (six) Branch hours as needed for Nausea and Vomiting (N/V) or Gastroesop hageal reflux. famotidine 2022-0 Yes [id number] 20mg Take 1 [facility] nivers 20 mg 8-31 tablet by it[facility] of tablet 00:00: mouth in [place] 00 the Medical morning Branch and 1 tablet in the evening. metoclopram 2022-0 Yes [id number] 10mg Take 1 [facility] HCl 10 8-31 tablet by ity of mg tablet 00:00: mouth [place] 00 every 6 Medical (six) Branch hours as needed for Nausea and Vomiting (N/V) or Gastroesop hageal reflux. famotidine 2022-0 Yes [id number] 20mg Take 1 [facility] nivers 20 mg 8-31 tablet by ity of tablet 00:00: mouth in [place] 00 the Medical morning Branch and 1 tablet in the evening. metoclopram 2022-0 Yes [id number] 10mg Take 1 [facility] HCl 10 8-31 tablet by ity of mg tablet 00:00: mouth [place] 00 every 6 Medical (six) Branch hours as needed for Nausea and Vomiting (N/V) or Gastroesop hageal reflux. famotidine 2022-0 Yes [id number] 20mg Take 1 [facility] nivers 20 mg 8-31 tablet by ity of tablet 00:00: mouth in [place] 00 the Medical morning Branch and 1 tablet in the evening. metoclopram 2022-0 Yes [id number] 10mg Take 1 [facility] HCl 10 8-31 tablet by ity of mg tablet 00:00: mouth [place] 00 every 6 Medical (six) Branch hours as needed for Nausea and Vomiting (N/V) or Gastroesop hageal reflux. famotidine 2022-0 Yes [id number] 20mg Take 1 [facility] 20 mg 8-31 tablet by [facility] tablet 00:00: mouth in [place] 00 the Medical morning Branch and 1 tablet in the evening. metoclopram 2022-0 Yes [id number] 10mg Take 1 [facility] 8-31 tablet by [facility] mg tablet 00:00: mouth [place] 00 every 6 Medical (six) Branch hours as needed for Nausea and Vomiting (N/V) or Gastroesop hageal reflux. famotidine 2022-0 Yes [id number] 20mg Take 1 [facility] 20 mg 8-31 tablet by [facility] tablet 00:00: mouth in [place] 00 the Medical morning Branch and 1 tablet in the evening. metoclopram 2022-0 Yes [id number] 10mg Take 1 [facility] 10 8-31 tablet by [facility] mg tablet 00:00: mouth [place] 00 every 6 Medical (six) Branch hours as needed for Nausea and Vomiting (N/V) or Gastroesop hageal reflux. famotidine 2022-0 Yes [id number] 20mg Take 1 [facility] 20 mg 8-31 tablet by [facility] tablet 00:00: mouth in [place] 00 the Medical morning Branch and 1 tablet in the evening. metoclopram 2022-0 Yes [id number] 10mg Take 1 [facility] 10 8-31 tablet by [facility] mg tablet 00:00: mouth [place] [address] every 6 Medical (six) Branch hours as needed for Nausea and Vomiting (N/V) or Gastroesop hageal reflux. famotidine 2022-0 Yes [id number] 20mg Take 1 [facility] 20 mg 8-31 tablet by [facility] tablet 00:00: mouth in [place] 00 the Medical morning Branch and 1 tablet in the evening. metoclopram 2022-0 Yes [id number] 10mg Take 1 [facility] 10 8-31 tablet by [facility] mg tablet 00:00: mouth [place] [address] every 6 Medical (six) Branch hours as needed for Nausea and Vomiting (N/V) or Gastroesop hageal reflux. famotidine 2022-0 Yes [id number] 20mg Take 1 [facility] 20 mg 8-31 tablet by [facility] tablet 00:00: mouth in [place] 00 the Medical morning Branch and 1 tablet in the evening. metoclopram 2022-0 Yes [id number] 10mg Take 1 [facility] 10 8-31 tablet by [facility] mg tablet 00:00: mouth [place] 00 every 6 Medical (six) Branch hours as needed for Nausea and Vomiting (N/V) or Gastroesop hageal reflux. famotidine 2022-0 Yes [id number] 20mg Take 1 [facility] 20 mg 8-31 tablet by [facility] tablet 00:00: mouth in [place] 00 the Medical morning Branch and 1 tablet in the evening. metoclopram 2022-0 Yes [id number] 10mg Take 1 [facility] 10 8-31 tablet by [facility] mg tablet 00:00: mouth [place] 00 every 6 Medical (six) Branch hours as needed for Nausea and Vomiting (N/V) or Gastroesop hageal reflux. famotidine 2022-0 Yes [id number] 20mg Take 1 [facility] 20 mg 8-31 tablet by [facility] tablet 00:00: mouth in [place] 00 the Medical morning Branch and 1 tablet in the evening. metoclopram 2022-0 Yes [id number] 10mg Take 1 [facility] 10 8-31 tablet by [facility] mg tablet 00:00: mouth [place] [address] every 6 Medical (six) Branch hours as needed for Nausea and Vomiting (N/V) or Gastroesop hageal reflux. famotidine 2022-0 Yes [id number] 20mg Take 1 [facility] 20 mg 8-31 tablet by [facility] tablet 00:00: mouth in [place] 00 the Medical morning Branch and 1 tablet in the evening. metoclopram 2022-0 Yes [id number] 10mg Take 1 [facility] 10 8-31 tablet by [facility] mg tablet 00:00: mouth [place] [address] every 6 Medical (six) Branch hours as needed for Nausea and Vomiting (N/V) or Gastroesop hageal reflux. famotidine 2022-0 Yes [id number] 20mg Take 1 [facility] 20 mg 8-31 tablet by [facility] tablet 00:00: mouth in [place] 00 the Medical morning Branch and 1 tablet in the evening. metoclopram 2022-0 Yes [id number] 10mg Take 1 [facility] 10 8-31 tablet by [facility] mg tablet 00:00: mouth [place] 00 every 6 Medical (six) Branch hours as needed for Nausea and Vomiting (N/V) or Gastroesop hageal reflux. famotidine 2022-0 Yes [id number] 20mg Take 1 [facility] 20 mg 8-31 tablet by [facility] tablet 00:00: mouth in [place] 00 the Medical morning Branch and 1 tablet in the evening. metoclopram 2022-0 Yes [id number] 10mg Take 1 [facility] 10 8-31 tablet by [facility] mg tablet 00:00: mouth [place] 00 every 6 Medical (six) Branch hours as needed for Nausea and Vomiting (N/V) or Gastroesop hageal reflux. famotidine 2022-0 Yes [id number] 20mg Take 1 [facility] 20 mg 8-31 tablet by [facility] tablet 00:00: mouth in [place] 00 the Medical morning Branch and 1 tablet in the evening. metoclopram 2022-0 Yes [id number] 10mg Take 1 [facility] 10 8-31 tablet by [facility] mg tablet 00:00: mouth [place] 00 every 6 Medical (six) Branch hours as needed for Nausea and Vomiting (N/V) or Gastroesop hageal reflux. famotidine 2022-0 Yes [id number] 20mg Take 1 [facility] 20 mg 8-31 tablet by [facility] tablet 00:00: mouth in [place] 00 the Medical morning Branch and 1 tablet in the evening. metoclopram 2022-0 Yes [id number] 10mg Take 1 [facility] 10 8-31 tablet by [facility] mg tablet 00:00: mouth [place] 00 every 6 Medical (six) Branch hours as needed for Nausea and Vomiting (N/V) or Gastroesop hageal reflux. famotidine 2022-0 Yes [id number] 20mg Take 1 [facility] 20 mg 8-31 tablet by [facility] tablet 00:00: mouth in [place] 00 the Medical morning Branch and 1 tablet in the evening. metoclopram 2022-0 Yes [id number] 10mg Take 1 [facility] 10 8-31 tablet by [facility] mg tablet 00:00: mouth [place] 00 every 6 Medical (six) Branch hours as needed for Nausea and Vomiting (N/V) or Gastroesop hageal reflux. famotidine 2022-0 Yes [id number] 20mg Take 1 [facility] 20 mg 8-31 tablet by [facility] tablet 00:00: mouth in [place] 00 the Medical morning Branch and 1 tablet in the evening. metoclopram 2022-0 Yes [id number] 10mg Take 1 [facility] 10 8-31 tablet by [facility] mg tablet 00:00: mouth [place] 00 every 6 Medical (six) Branch hours as needed for Nausea and Vomiting (N/V) or Gastroesop hageal reflux. famotidine 2022-0 Yes [id number] 20mg Take 1 [facility] 20 mg 8-31 tablet by [facility] tablet 00:00: mouth in [place] 00 the Medical morning Branch and 1 tablet in the evening. metoclopram 2022-0 Yes [id number] 10mg Take 1 [facility] 10 8-31 tablet by [facility] mg tablet 00:00: mouth [place] 00 every 6 Medical (six) Branch hours as needed for Nausea and Vomiting (N/V) or Gastroesop hageal reflux. famotidine 2022-0 Yes [id number] 20mg Take 1 [facility] 20 mg 8-31 tablet by [facility] tablet 00:00: mouth in [place] 00 the Medical morning Branch and 1 tablet in the evening. metoclopram 2022-0 Yes [id number] 10mg Take 1 [facility] 10 8-31 tablet by [facility] mg tablet 00:00: mouth [place] 00 every 6 Medical (six) Branch hours as needed for Nausea and Vomiting (N/V) or Gastroesop hageal reflux. famotidine 2022-0 Yes [id number] 20mg Take 1 [facility] 20 mg 8-31 tablet by [facility] tablet 00:00: mouth in [place] 00 the Medical morning Branch and 1 tablet in the evening. metoclopram 2022-0 Yes [id number] 10mg Take 1 [facility] 10 8-31 tablet by [facility] mg tablet 00:00: mouth [place] 00 every 6 Medical (six) Branch hours as needed for Nausea and Vomiting (N/V) or Gastroesop hageal reflux. famotidine 2022-0 Yes [id number] 20mg Take 1 [facility] 20 mg 8-31 tablet by [facility] tablet 00:00: mouth in [place] 00 the Medical morning Branch and 1 tablet in the evening. metoclopram 2022-0 Yes [id number] 10mg Take 1 [facility] 10 8-31 tablet by [facility] mg tablet 00:00: mouth [place] 00 every 6 Medical (six) Branch hours as needed for Nausea and Vomiting (N/V) or Gastroesop hageal reflux. famotidine 2022-0 Yes [id number] 20mg Take 1 [facility] 20 mg 8-31 tablet by [facility] tablet 00:00: mouth in [place] 00 the Medical morning Branch and 1 tablet in the evening. metoclopram 2022-0 Yes [id number] 10mg Take 1 [facility] 10 8-31 tablet by [facility] mg tablet 00:00: mouth [place] 00 every 6 Medical (six) Branch hours as needed for Nausea and Vomiting (N/V) or Gastroesop hageal reflux. famotidine 2022-0 Yes [id number] 20mg Take 1 [facility] 20 mg 8-31 tablet by [facility] tablet 00:00: mouth in [place] 00 the Medical morning Branch and 1 tablet in the evening. metoclopram 2022-0 Yes [id number] 10mg Take 1 [facility] 10 8-31 tablet by [facility] mg tablet 00:00: mouth [place] 00 every 6 Medical (six) Branch hours as needed for Nausea and Vomiting (N/V) or Gastroesop hageal reflux. famotidine 2022-0 Yes [id number] 20mg Take 1 [facility] 20 mg 8-31 tablet by [facility] tablet 00:00: mouth in [place] 00 the Medical morning Branch and 1 tablet in the evening. metoclopram 2022-0 Yes [id number] 10mg Take 1 [facility] 10 8-31 tablet by [facility] mg tablet 00:00: mouth [place] 00 every 6 Medical (six) Branch hours as needed for Nausea and Vomiting (N/V) or Gastroesop hageal reflux. famotidine 2022-0 Yes [id number] 20mg Take 1 [facility] 20 mg 8-31 tablet by [facility] tablet 00:00: mouth in [place] 00 the Medical morning Branch and 1 tablet in the evening. metoclopram 2022-0 Yes [id number] 10mg Take 1 [facility] 10 8-31 tablet by [facility] mg tablet 00:00: mouth [place] 00 every 6 Medical (six) Branch hours as needed for Nausea and Vomiting (N/V) or Gastroesop hageal reflux. famotidine 2022-0 Yes [id number] 20mg Take 1 [facility] 20 mg 8-31 tablet by [facility] tablet 00:00: mouth in [place] 00 the Medical morning Branch and 1 tablet in the evening. metoclopram 2022-0 Yes [id number] 10mg Take 1 [facility] 10 8-31 tablet by [facility] mg tablet 00:00: mouth [place] 00 every 6 Medical (six) Branch hours as needed for Nausea and Vomiting (N/V) or Gastroesop hageal reflux. famotidine 2022-0 Yes [id number] 20mg Take 1 [facility] 20 mg 8-31 tablet by [facility] tablet 00:00: mouth in [place] 00 the Medical morning Branch and 1 tablet in the evening. metoclopram 2022-0 Yes [id number] 10mg Take 1 [facility] 10 8-31 tablet by [facility] mg tablet 00:00: mouth [place] 00 every 6 Medical (six) Branch hours as needed for Nausea and Vomiting (N/V) or Gastroesop hageal reflux. famotidine 2022-0 Yes [id number] 20mg Take 1 [facility] 20 mg 8-31 tablet by [facility] tablet 00:00: mouth in [place] 00 the Medical morning Branch and 1 tablet in the evening. metoclopram 2022-0 Yes [id number] 10mg Take 1 [facility] 10 8-31 tablet by [facility] mg tablet 00:00: mouth [place] 00 every 6 Medical (six) Branch hours as needed for Nausea and Vomiting (N/V) or Gastroesop hageal reflux. famotidine 2022-0 Yes [id number] 20mg Take 1 [facility] 20 mg 8-31 tablet by [facility] tablet 00:00: mouth in [place] 00 the Medical morning Branch and 1 tablet in the evening. metoclopram 2022-0 Yes [id number] 10mg Take 1 [facility] 10 8-31 tablet by [facility] mg tablet 00:00: mouth [place] 00 every 6 Medical (six) Branch hours as needed for Nausea and Vomiting (N/V) or Gastroesop hageal reflux. famotidine 2022-0 Yes [id number] 20mg Take 1 [facility] 20 mg 8-31 tablet by [facility] tablet 00:00: mouth in [place] 00 the Medical morning Branch and 1 tablet in the evening. metoclopram 2022-0 Yes [id number] 10mg Take 1 [facility] 10 8-31 tablet by [facility] mg tablet 00:00: mouth [place] 00 every 6 Medical (six) Branch hours as needed for Nausea and Vomiting (N/V) or Gastroesop hageal reflux. famotidine 2022-0 Yes [id number] 20mg Take 1 [facility] 20 mg 8-31 tablet by [facility] tablet 00:00: mouth in [place] 00 the Medical morning Branch and 1 tablet in the evening. metoclopram 2022-0 Yes [id number] 10mg Take 1 [facility] 10 8-31 tablet by [facility] mg tablet 00:00: mouth [place] 00 every 6 Medical (six) Branch hours as needed for Nausea and Vomiting (N/V) or Gastroesop hageal reflux. famotidine 2022-0 Yes [id number] 20mg Take 1 [facility] 20 mg 8-31 tablet by [facility] tablet 00:00: mouth in [place] 00 the Medical morning Branch and 1 tablet in the evening. metoclopram 2022-0 Yes [id number] 10mg Take 1 [facility] 10 8-31 tablet by [facility] mg tablet 00:00: mouth [place] 00 every 6 Medical (six) Branch hours as needed for Nausea and Vomiting (N/V) or Gastroesop hageal reflux. famotidine 2022-0 Yes [id number] 20mg Take 1 [facility] 20 mg 8-31 tablet by [facility] tablet 00:00: mouth in [place] 00 the Medical morning Branch and 1 tablet in the evening. metoclopram 2022-0 Yes [id number] 10mg Take 1 [facility] 10 8-31 tablet by [facility] mg tablet 00:00: mouth [place] 00 every 6 Medical (six) Branch hours as needed for Nausea and Vomiting (N/V) or Gastroesop hageal reflux. famotidine 2022-0 Yes [id number] 20mg Take 1 [facility] 20 mg 8-31 tablet by [facility] tablet 00:00: mouth in [place] 00 the Medical morning Branch and 1 tablet in the evening. metoclopram 2022-0 Yes [id number] 10mg Take 1 [facility] 10 8-31 tablet by [facility] mg tablet 00:00: mouth [place] 00 every 6 Medical (six) Branch hours as needed for Nausea and Vomiting (N/V) or Gastroesop hageal reflux. famotidine 2022-0 Yes [id number] 20mg Take 1 [facility] 20 mg 8-31 tablet by [facility] tablet 00:00: mouth in [place] 00 the Medical morning Branch and 1 tablet in the evening. metoclopram 2022-0 Yes [id number] 10mg Take 1 [facility] 10 8-31 tablet by [facility] mg tablet 00:00: mouth [place] 00 every 6 Medical (six) Branch hours as needed for Nausea and Vomiting (N/V) or Gastroesop hageal reflux. famotidine 2022-0 Yes [id number] 20mg Take 1 [facility] 20 mg 8-31 tablet by [facility] tablet 00:00: mouth in [place] 00 the Medical morning Branch and 1 tablet in the evening. metoclopram 2022-0 Yes [id number] 10mg Take 1 [facility] 10 8-31 tablet by [facility] mg tablet 00:00: mouth [place] 00 every 6 Medical (six) Branch hours as needed for Nausea and Vomiting (N/V) or Gastroesop hageal reflux. famotidine 2022-0 Yes [id number] 20mg Take 1 [facility] 20 mg 8-31 tablet by [facility] tablet 00:00: mouth in [place] 00 the Medical morning Branch and 1 tablet in the evening. metoclopram 2022-0 Yes [id number] 10mg Take 1 [facility] 10 8-31 tablet by [facility] mg tablet 00:00: mouth [place] [address] every 6 Medical (six) Branch hours as needed for Nausea and Vomiting (N/V) or Gastroesop hageal reflux. famotidine 2022-0 Yes [id number] 20mg Take 1 [facility] 20 mg 8-31 tablet by [facility] tablet 00:00: mouth in [place] 00 the Medical morning Branch and 1 tablet in the evening. metoclopram 2022-0 Yes [id number] 10mg Take 1 [facility] 10 8-31 tablet by [facility] mg tablet 00:00: mouth [place] 00 every 6 Medical (six) Branch hours as needed for Nausea and Vomiting (N/V) or Gastroesop hageal reflux. famotidine 2022-0 Yes [id number] 20mg Take 1 [facility] 20 mg 8-31 tablet by [facility] tablet 00:00: mouth in [place] 00 the Medical morning Branch and 1 tablet in the evening. metoclopram 2022-0 Yes [id number] 10mg Take 1 [facility] 10 8-31 tablet by [facility] mg tablet 00:00: mouth [place] 00 every 6 Medical (six) Branch hours as needed for Nausea and Vomiting (N/V) or Gastroesop hageal reflux. famotidine 2022-0 Yes [id number] 20mg Take 1 [facility] 20 mg 8-31 tablet by [facility] tablet 00:00: mouth in [place] 00 the Medical morning Branch and 1 tablet in the evening. metoclopram 2022-0 Yes [id number] 10mg Take 1 [facility] 10 8-31 tablet by [facility] mg tablet 00:00: mouth [place] 00 every 6 Medical (six) Branch hours as needed for Nausea and Vomiting (N/V) or Gastroesop hageal reflux. famotidine 2022-0 Yes [id number] 20mg Take 1 [facility] 20 mg 8-31 tablet by [facility] tablet 00:00: mouth in [place] 00 the Medical morning Branch and 1 tablet in the evening. metoclopram 2022-0 Yes [id number] 10mg Take 1 [facility] 10 8-31 tablet by [facility] mg tablet 00:00: mouth [place] 00 every 6 Medical (six) Branch hours as needed for Nausea and Vomiting (N/V) or Gastroesop hageal reflux. famotidine 2022-0 Yes [id number] 20mg Take 1 [facility] 20 mg 8-31 tablet by [facility] tablet 00:00: mouth in [place] 00 the Medical morning Branch and 1 tablet in the evening. metoclopram 2022-0 Yes [id number] 10mg Take 1 [facility] 10 8-31 tablet by [facility] mg tablet 00:00: mouth [place] 00 every 6 Medical (six) Branch hours as needed for Nausea and Vomiting (N/V) or Gastroesop hageal reflux. famotidine 2022-0 Yes [id number] 20mg Take 1 [facility] 20 mg 8-31 tablet by [facility] tablet 00:00: mouth in [place] 00 the Medical morning Branch and 1 tablet in the evening. metoclopram 2022-0 Yes [id number] 10mg Take 1 [facility] 10 8-31 tablet by [facility] mg tablet 00:00: mouth [place] 00 every 6 Medical (six) Branch hours as needed for Nausea and Vomiting (N/V) or Gastroesop hageal reflux. famotidine 2022-0 Yes [id number] 20mg Take 1 [facility] 20 mg 8-31 tablet by [facility] tablet 00:00: mouth in [place] [address] the Medical morning Branch and 1 tablet in the evening. metoclopram 2022-0 Yes [id number] 10mg Take 1 [facility] 10 8-31 tablet by [facility] mg tablet 00:00: mouth [place] 00 every 6 Medical (six) Branch hours as needed for Nausea and Vomiting (N/V) or Gastroesop hageal reflux. famotidine 2022-0 Yes [id number] 20mg Take 1 [facility] 20 mg 8-31 tablet by [facility] tablet 00:00: mouth in [place] 00 the Medical morning Branch and 1 tablet in the evening. metoclopram 2022-0 Yes [id number] 10mg Take 1 [facility] 10 8-31 tablet by [facility] mg tablet 00:00: mouth [place] 00 every 6 Medical (six) Branch hours as needed for Nausea and Vomiting (N/V) or Gastroesop hageal reflux. famotidine 2022-0 Yes [id number] 20mg Take 1 [facility] 20 mg 8-31 tablet by [facility] tablet 00:00: mouth in [place] 00 the Medical morning Branch and 1 tablet in the evening. metoclopram 2022-0 Yes [id number] 10mg Take 1 [facility] 10 8-31 tablet by [facility] mg tablet 00:00: mouth [place] 00 every 6 Medical (six) Branch hours as needed for Nausea and Vomiting (N/V) or Gastroesop hageal reflux. famotidine 2022-0 Yes [id number] 20mg Take 1 [facility] 20 mg 8-31 tablet by [facility] tablet 00:00: mouth in [place] 00 the Medical morning Branch and 1 tablet in the evening. metoclopram 2022-0 Yes [id number] 10mg Take 1 [facility] 10 8-31 tablet by [facility] mg tablet 00:00: mouth [place] 00 every 6 Medical (six) Branch hours as needed for Nausea and Vomiting (N/V) or Gastroesop hageal reflux. famotidine 2022-0 Yes [id number] 20mg Take 1 [facility] 20 mg 8-31 tablet by [facility] tablet 00:00: mouth in [place] 00 the Medical morning Branch and 1 tablet in the evening. metoclopram 2022-0 Yes [id number] 10mg Take 1 [facility] 10 8-31 tablet by [facility] mg tablet 00:00: mouth [place] 00 every 6 Medical (six) Branch hours as needed for Nausea and Vomiting (N/V) or Gastroesop hageal reflux. famotidine 2022-0 Yes [id number] 20mg Take 1 [facility] 20 mg 8-31 tablet by [facility] tablet 00:00: mouth in [place] 00 the Medical morning Branch and 1 tablet in the evening. metoclopram 2022-0 Yes [id number] 10mg Take 1 [facility] 10 8-31 tablet by [facility] mg tablet 00:00: mouth [place] 00 every 6 Medical (six) Branch hours as needed for Nausea and Vomiting (N/V) or Gastroesop hageal reflux. famotidine 2022-0 Yes [id number] 20mg Take 1 [facility] 20 mg 8-31 tablet by [facility] tablet 00:00: mouth in [place] 00 the Medical morning Branch and 1 tablet in the evening. metoclopram 2022-0 Yes [id number] 10mg Take 1 [facility] 10 8-31 tablet by [facility] mg tablet 00:00: mouth [place] 00 every 6 Medical (six) Branch hours as needed for Nausea and Vomiting (N/V) or Gastroesop hageal reflux. famotidine 2022-0 Yes [id number] 20mg Take 1 [facility] 20 mg 8-31 tablet by [facility] tablet 00:00: mouth in [place] 00 the Medical morning Branch and 1 tablet in the evening. metoclopram 2022-0 Yes [id number] 10mg Take 1 [facility] 10 8-31 tablet by [facility] mg tablet 00:00: mouth [place] 00 every 6 Medical (six) Branch hours as needed for Nausea and Vomiting (N/V) or Gastroesop hageal reflux. famotidine 2022-0 Yes [id number] 20mg Take 1 [facility] 20 mg 8-31 tablet by [facility] tablet 00:00: mouth in [place] 00 the Medical morning Branch and 1 tablet in the evening. metoclopram 2022-0 Yes [id number] 10mg Take 1 [facility] 10 8-31 tablet by [facility] mg tablet 00:00: mouth [place] 00 every 6 Medical (six) Branch hours as needed for Nausea and Vomiting (N/V) or Gastroesop hageal reflux. famotidine 2022-0 Yes [id number] 20mg Take 1 [facility] 20 mg 8-31 tablet by [facility] tablet 00:00: mouth in [place] 00 the Medical morning Branch and 1 tablet in the evening. metoclopram 2022-0 Yes [id number] 10mg Take 1 [facility] 10 8-31 tablet by [facility] mg tablet 00:00: mouth [place] 00 every 6 Medical (six) Branch hours as needed for Nausea and Vomiting (N/V) or Gastroesop hageal reflux. famotidine 2022-0 Yes [id number] 20mg Take 1 [facility] 20 mg 8-31 tablet by [facility] tablet 00:00: mouth in [place] 00 the Medical morning Branch and 1 tablet in the evening. metoclopram 2022-0 Yes [id number] 10mg Take 1 [facility] 10 8-31 tablet by [facility] mg tablet 00:00: mouth [place] 00 every 6 Medical (six) Branch hours as needed for Nausea and Vomiting (N/V) or Gastroesop hageal reflux. famotidine 2022-0 Yes [id number] 20mg Take 1 [facility] 20 mg 8-31 tablet by [facility] tablet 00:00: mouth in [place] 00 the Medical morning Branch and 1 tablet in the evening. metoclopram 2022-0 Yes [id number] 10mg Take 1 [facility] 10 8-31 tablet by [facility] mg tablet 00:00: mouth [place] 00 every 6 Medical (six) Branch hours as needed for Nausea and Vomiting (N/V) or Gastroesop hageal reflux. famotidine 2022-0 Yes [id number] 20mg Take 1 [facility] 20 mg 8-31 tablet by [facility] tablet 00:00: mouth in [place] 00 the Medical morning Branch and 1 tablet in the evening. metoclopram 2022-0 Yes [id number] 10mg Take 1 [facility] 10 8-31 tablet by [facility] mg tablet 00:00: mouth [place] 00 every 6 Medical (six) Branch hours as needed for Nausea and Vomiting (N/V) or Gastroesop hageal reflux. famotidine 2022-0 Yes [id number] 20mg Take 1 [facility] 20 mg 8-31 tablet by [facility] tablet 00:00: mouth in [place] 00 the Medical morning Branch and 1 tablet in the evening. metoclopram 2022-0 Yes [id number] 10mg Take 1 [facility] 10 8-31 tablet by [facility] mg tablet 00:00: mouth [place] 00 every 6 Medical (six) Branch hours as needed for Nausea and Vomiting (N/V) or Gastroesop hageal reflux. famotidine 2022-0 Yes [id number] 20mg Take 1 [facility] 20 mg 8-31 tablet by [facility] tablet 00:00: mouth in [place] 00 the Medical morning Branch and 1 tablet in the evening. metoclopram 2022-0 Yes [id number] 10mg Take 1 [facility] 10 8-31 tablet by [facility] mg tablet 00:00: mouth [place] 00 every 6 Medical (six) Branch hours as needed for Nausea and Vomiting (N/V) or Gastroesop hageal reflux. famotidine 2022-0 Yes [id number] 20mg Take 1 [facility] 20 mg 8-31 tablet by [facility] tablet 00:00: mouth in [place] 00 the Medical morning Branch and 1 tablet in the evening. metoclopram 2022-0 Yes [id number] 10mg Take 1 [facility] 10 8-31 tablet by [facility] mg tablet 00:00: mouth [place] 00 every 6 Medical (six) Branch hours as needed for Nausea and Vomiting (N/V) or Gastroesop hageal reflux. famotidine 2022-0 Yes [id number] 20mg Take 1 [facility] 20 mg 8-31 tablet by [facility] tablet 00:00: mouth in [place] 00 the Medical morning Branch and 1 tablet in the evening. metoclopram 2022-0 Yes [id number] 10mg Take 1 [facility] 10 8-31 tablet by [facility] mg tablet 00:00: mouth [place] 00 every 6 Medical (six) Branch hours as needed for Nausea and Vomiting (N/V) or Gastroesop hageal reflux. famotidine 2022-0 Yes [id number] 20mg Take 1 [facility] 20 mg 8-31 tablet by [facility] tablet 00:00: mouth in [place] 00 the Medical morning Branch and 1 tablet in the evening. metoclopram 2022-0 Yes [id number] 10mg Take 1 [facility] 10 8-31 tablet by [facility] mg tablet 00:00: mouth [place] 00 every 6 Medical (six) Branch hours as needed for Nausea and Vomiting (N/V) or Gastroesop hageal reflux. famotidine 2022-0 Yes [id number] 20mg Take 1 [facility] 20 mg 8-31 tablet by [facility] tablet 00:00: mouth in [place] 00 the Medical morning Branch and 1 tablet in the evening. metoclopram 2022-0 Yes [id number] 10mg Take 1 [facility] 10 8-31 tablet by [facility] mg tablet 00:00: mouth [place] 00 every 6 Medical (six) Branch hours as needed for Nausea and Vomiting (N/V) or Gastroesop hageal reflux. famotidine 2-0 Yes [id number] 20mg Take 1 [facility] 20 mg 8-31 tablet by [facility] tablet 00:00: mouth in [place] 00 the Medical morning Branch and 1 tablet in the evening. metoclopram 2-0 Yes [id number] 10mg Take 1 [facility] 10 8-31 tablet by [facility] mg tablet 00:00: mouth [place] 00 every 6 Medical (six) Branch hours as needed for Nausea and Vomiting (N/V) or Gastroesop hageal reflux. famotidine 2-0 Yes [id number] 20mg Take 1 [facility] 20 mg 8-31 tablet by [facility] of tablet 00:00: mouth in [place] 00 the Medical morning Branch and 1 tablet in the evening. metoclopram 2-0 2022- No [id number] 10mg Take 1 [facility] richa HCl 10 8-31 02-10 tablet by ity of mg tablet 00:00: 00:00 mouth [place] 00 :00 every 6 Medical (six) Branch hours as needed for Nausea and Vomiting (N/V) or Gastroesop hageal reflux. famotidine 2-0 2022- No [id number] 20mg Take 1 [facility] 20 mg 8-31 02-10 tablet by ity of tablet 00:00: 00:00 mouth in [place] 00 :00 the Medical morning Branch and 1 tablet in the evening. metoclopram 2-0 2022- No [id number] 10mg Take 1 [facility] HCl 10 8-31 02-10 tablet by ity of mg tablet 00:00: 00:00 mouth [place] 00 :00 every 6 Medical (six) Branch hours as needed for Nausea and Vomiting (N/V) or Gastroesop hageal reflux. famotidine 2-0 2022- No [id number] 20mg Take 1 [facility] 20 mg 8-31 02-10 tablet by ity of tablet 00:00: 00:00 mouth in [place] 00 :00 the Medical morning Branch and 1 tablet in the evening. metoclopram 2022-0 2023- No [id number] 10mg Take 1 [facility] HCl 10 04-02-10 tablet by ity of mg tablet 00:00: 00:00 mouth [place] 00 :00 every 6 Medical (six) Branch hours as needed for Nausea and Vomiting (N/V) or Gastroesop hageal reflux. famotidine 2022- No [id number] 20mg Take 1 [facility] 20 mg 04-02-10 tablet by ity of tablet 00:00: 00:00 mouth in [place] 00 :00 the Medical morning Branch and 1 tablet in the evening. doxylamine Yes [id number] 25mg Take 1 [facility] 25 mg 7-28 tablet by ity of tablet 00:00: mouth at [place] [address] bedtime. Medical Branch doxylamine Yes [id number] 25mg Take 1 [facility] 25 mg 7-28 tablet by ity of tablet 00:00: mouth at [place] [address] bedtime. Medical Branch doxylamine Yes [id number] 25mg Take 1 [facility] 25 mg 7-28 tablet by ity of tablet 00:00: mouth at [place] [address] bedtime. Medical Branch doxylamine Yes [id number] 25mg Take 1 [facility] 25 mg 7-28 tablet by ity of tablet 00:00: mouth at [place] [address] bedtime. Medical Branch doxylamine Yes [id number] 25mg Take 1 [facility] 25 mg 7-28 tablet by ity of tablet 00:00: mouth at [place] [address] bedtime. Medical Branch doxylamine Yes [id number] 25mg Take 1 [facility] 25 mg 7-28 tablet by ity of tablet 00:00: mouth at [place] [address] bedtime. Medical Branch doxylamine 0 Yes [id number] 25mg Take 1 [facility] 25 mg 7-28 tablet by ity of tablet 00:00: mouth at [place] [address] bedtime. Medical Branch doxylamine 0 Yes [id number] 25mg Take 1 [facility] 25 mg 7-28 tablet by ity of tablet 00:00: mouth at [place] [address] bedtime. Medical Branch doxylamine Yes [id number] 25mg Take 1 [facility] 25 mg 7-28 tablet by ity of tablet 00:00: mouth at [place] [address] bedtime. Medical Branch doxylamine 0 Yes [id number] 25mg Take 1 [facility] 25 mg 7-28 tablet by ity of tablet 00:00: mouth at [place] [address] bedtime. Medical Branch doxylamine Yes [id number] 25mg Take 1 [facility] 25 mg 7-28 tablet by ity of tablet 00:00: mouth at [place] [address] bedtime. Medical Branch doxylamine 0 Yes [id number] 25mg Take 1 [facility] 25 mg 7-28 tablet by ity of tablet 00:00: mouth at [place] [address] bedtime. Medical Branch doxylamine Yes [id number] 25mg Take 1 [facility] 25 mg 7-28 tablet by ity of tablet 00:00: mouth at [place] [address] bedtime. Medical Branch doxylamine Yes [id number] 25mg Take 1 [facility] 25 mg 7-28 tablet by ity of tablet 00:00: mouth at [place] [address] bedtime. Medical Branch doxylamine Yes [id number] 25mg Take 1 [facility] 25 mg 7-28 tablet by ity of tablet 00:00: mouth at [place] [address] bedtime. Medical Branch doxylamine Yes [id number] 25mg Take 1 [facility] 25 mg 7-28 tablet by ity of tablet 00:00: mouth at [place] [address] bedtime. Medical Branch doxylamine Yes [id number] 25mg Take 1 [facility] 25 mg 7-28 tablet by ity of tablet 00:00: mouth at [place] [address] bedtime. Medical Branch doxylamine Yes [id number] 25mg Take 1 [facility] 25 mg 7-28 tablet by ity of tablet 00:00: mouth at [place] [address] bedtime. Medical Branch doxylamine 0 Yes [id number] 25mg Take 1 [facility] 25 mg 7-28 tablet by ity of tablet 00:00: mouth at [place] [address] bedtime. Medical Branch doxylamine 0 Yes [id number] 25mg Take 1 [facility] 25 mg 7-28 tablet by ity of tablet 00:00: mouth at [place] [address] bedtime. Medical Branch doxylamine Yes [id number] 25mg Take 1 [facility] 25 mg 7-28 tablet by ity of tablet 00:00: mouth at [place] [address] bedtime. Medical Branch doxylamine Yes [id number] 25mg Take 1 [facility] 25 mg 7-28 tablet by ity of tablet 00:00: mouth at [place] [address] bedtime. Medical Branch doxylamine 0 Yes [id number] 25mg Take 1 [facility] 25 mg 7-28 tablet by ity of tablet 00:00: mouth at [place] [address] bedtime. Medical Branch doxylamine 0 Yes [id number] 25mg Take 1 [facility] 25 mg 7-28 tablet by ity of tablet 00:00: mouth at [place] [address] bedtime. Medical Branch doxylamine Yes [id number] 25mg Take 1 [facility] 25 mg 7-28 tablet by ity of tablet 00:00: mouth at [place] [address] bedtime. Medical Branch doxylamine Yes [id number] 25mg Take 1 [facility] 25 mg 7-28 tablet by ity of tablet 00:00: mouth at [place] [address] bedtime. Medical Branch doxylamine Yes [id number] 25mg Take 1 [facility] 25 mg 7-28 tablet by ity of tablet 00:00: mouth at [place] [address] bedtime. Medical Branch doxylamine Yes [id number] 25mg Take 1 [facility] 25 mg 7-28 tablet by ity of tablet 00:00: mouth at [place] [address] bedtime. Medical Branch doxylamine 0 Yes [id number] 25mg Take 1 [facility] 25 mg 7-28 tablet by ity of tablet 00:00: mouth at [place] [address] bedtime. Medical Branch doxylamine 0 Yes [id number] 25mg Take 1 [facility] 25 mg 7-28 tablet by ity of tablet 00:00: mouth at [place] [address] bedtime. Medical Branch doxylamine 0 Yes [id number] 25mg Take 1 [facility] 25 mg 7-28 tablet by ity of tablet 00:00: mouth at [place] [address] bedtime. Medical Branch doxylamine 0 Yes [id number] 25mg Take 1 [facility] 25 mg 7-28 tablet by ity of tablet 00:00: mouth at [place] [address] bedtime. Medical Branch doxylamine 0 Yes [id number] 25mg Take 1 [facility] 25 mg 7-28 tablet by ity of tablet 00:00: mouth at [place] [address] bedtime. Medical Branch doxylamine 2021- No [id number] 25mg Take 1 [facility] 25 mg 7-28 10-21 tablet by ity of tablet 00:00: 00:00 mouth at [place] 00 :00 bedtime. Medical Branch doxylamine 2021- No [id number] 25mg Take 1 [facility] 25 mg 7-28 10-21 tablet by ity of tablet 00:00: 00:00 mouth at [place] 00 :00 bedtime. Medical Branch doxylamine 2021- No [id number] 25mg Take 1 [facility] 25 mg 7-28 10-21 tablet by ity of tablet 00:00: 00:00 mouth at [place] 00 :00 bedtime. Medical Branch doxylamine 2021- No [id number] 25mg Take 1 [facility] 25 mg 7-28 10-21 tablet by ity of tablet 00:00: 00:00 mouth at [place] 00 :00 bedtime. Medical Branch doxylamine- Yes [id number] Doxylamine [facility] pyridoxine, 02-07 10 ity of [...] mg (4 tablets) per day). albuterol Yes [id number] 2{puff} Inhale 2 [facility] 90 - Puffs ity of mcg/actuati 00:00: every 6 [place] as on inhaler 00 (six) Medical hours as Branch needed for Shortness of Breath. doxylamine- Yes [id number] Doxylamine [facility] pyridoxine, 02-07 10 ity of [...] mg (4 tablets) per day). albuterol Yes [id number] 2{puff} Inhale 2 [facility] 90 7-08 Puffs ity of mcg/actuati 00:00: every 6 [place] as on inhaler 00 (six) Medical hours as Branch needed for Shortness of Breath. doxylamine- Yes [id number] Doxylamine [facility] pyridoxine, 02-07 10 ity of [...] mg (4 tablets) per day). albuterol Yes [id number] 2{puff} Inhale 2 [facility] 90 7-08 Puffs ity of mcg/actuati 00:00: every 6 [place] as on inhaler 00 (six) Medical hours as Branch needed for Shortness of Breath. doxylamine- Yes [id number] Doxylamine [facility] pyridoxine, 02-07 10 ity of [...] mg (4 tablets) per day). albuterol Yes [id number] 2{puff} Inhale 2 [facility] 90 7-08 Puffs ity of mcg/actuati 00:00: every 6 [place] as on inhaler 00 (six) Medical hours as Branch needed for Shortness of Breath. doxylamine- Yes [id number] Doxylamine [facility] pyridoxine, 08 10 ity of vit B6, 00:00: mg/pyridox [...] mg (4 tablets) per day). albuterol Yes [id number] 2{puff} Inhale 2 [facility] 90 7-08 Puffs ity of mcg/actuati 00:00: every 6 [place] as on inhaler 00 (six) Medical hours as Branch needed for Shortness of Breath. doxylamine- Yes [id number] Doxylamine [facility] pyridoxine, 02-07 10 ity of [...] mg (4 tablets) per day). albuterol Yes [id number] 2{puff} Inhale 2 [facility] 90 7-08 Puffs ity of mcg/actuati 00:00: every 6 [place] as on inhaler 00 (six) Medical hours as Branch needed for Shortness of Breath. doxylamine- Yes [id number] Doxylamine [facility] pyridoxine, 708 10 ity of [...] mg (4 tablets) per day). albuterol Yes [id number] 2{puff} Inhale 2 [facility] 90 7-08 Puffs ity of mcg/actuati 00:00: every 6 [place] as on inhaler 00 (six) Medical hours as Branch needed for Shortness of Breath. doxylamine- Yes [id number] Doxylamine [facility] pyridoxine, 02-07 10 ity of [...] mg (4 tablets) per day). albuterol Yes [id number] 2{puff} Inhale 2 [facility] 90 7-08 Puffs ity of mcg/actuati 00:00: every 6 [place] as on inhaler 00 (six) Medical hours as Branch needed for Shortness of Breath. doxylamine- Yes [id number] Doxylamine [facility] pyridoxine, 02-07 10 ity of [...] mg (4 tablets) per day). albuterol Yes [id number] 2{puff} Inhale 2 [facility] 90 7-08 Puffs ity of mcg/actuati 00:00: every 6 [place] as on inhaler 00 (six) Medical hours as Branch needed for Shortness of Breath. doxylamine- Yes [id number] Doxylamine [facility] pyridoxine, 02-07 10 ity of [...] mg (4 tablets) per day). albuterol Yes [id number] 2{puff} Inhale 2 [facility] 90 7-08 Puffs ity of mcg/actuati 00:00: every 6 [place] as on inhaler 00 (six) Medical hours as Branch needed for Shortness of Breath. doxylamine- Yes [id number] Doxylamine [facility] pyridoxine, 02-07 10 ity of [...] mg (4 tablets) per day). albuterol Yes [id number] 2{puff} Inhale 2 [facility] 90 7-08 Puffs ity of mcg/actuati 00:00: every 6 [place] on inhaler 00 (six) Medical hours as Branch needed for Shortness of Breath. doxylamine- Yes [id number] Doxylamine [facility] pyridoxine, 02-07 10 ity of [...] mg (4 tablets) per day). albuterol Yes [id number] 2{puff} Inhale 2 [facility] 90 7-08 Puffs ity of mcg/actuati 00:00: every 6 [place] on inhaler 00 (six) Medical hours as Branch needed for Shortness of Breath. doxylamine- Yes [id number] Doxylamine [facility] pyridoxine, 02-07 10 ity of [...] mg (4 tablets) per day). albuterol Yes [id number] 2{puff} Inhale 2 [facility] 90 7-08 Puffs ity of mcg/actuati 00:00: every 6 [place] as on inhaler 00 (six) Medical hours as Branch needed for Shortness of Breath. doxylamine- Yes [id number] Doxylamine [facility] pyridoxine, 02-07 10 ity of [...] mg (4 tablets) per day). albuterol Yes [id number] 2{puff} Inhale 2 [facility] 90 7-08 Puffs ity of mcg/actuati 00:00: every 6 [place] as on inhaler 00 (six) Medical hours as Branch needed for Shortness of Breath. doxylamine- Yes [id number] Doxylamine [facility] pyridoxine, 02-07 10 ity of [...] mg (4 tablets) per day). albuterol Yes [id number] 2{puff} Inhale 2 [facility] 90 7-08 Puffs ity of mcg/actuati 00:00: every 6 [place] as on inhaler 00 (six) Medical hours as Branch needed for Shortness of Breath. doxylamine- Yes [id number] Doxylamine [facility] pyridoxine, 02-07 10 ity of [...] mg (4 tablets) per day). albuterol Yes [id number] 2{puff} Inhale 2 [facility] 90 7-08 Puffs ity of mcg/actuati 00:00: every 6 [place] as on inhaler 00 (six) Medical hours as Branch needed for Shortness of Breath. doxylamine- Yes [id number] Doxylamine [facility] pyridoxine, 02-07 10 ity of [...] mg (4 tablets) per day). albuterol Yes [id number] 2{puff} Inhale 2 [facility] 90 7-08 Puffs ity of mcg/actuati 00:00: every 6 [place] as on inhaler 00 (six) Medical hours as Branch needed for Shortness of Breath. doxylamine- Yes [id number] Doxylamine [facility] pyridoxine, 02-07 10 ity of [...] mg (4 tablets) per day). albuterol Yes [id number] 2{puff} Inhale 2 [facility] 90 7-08 Puffs ity of mcg/actuati 00:00: every 6 [place] as on inhaler 00 (six) Medical hours as Branch needed for Shortness of Breath. doxylamine- Yes [id number] Doxylamine [facility] pyridoxine, 02-07 10 ity of [...] mg (4 tablets) per day). albuterol Yes [id number] 2{puff} Inhale 2 [facility] 90 7-08 Puffs ity of mcg/actuati 00:00: every 6 [place] as on inhaler 00 (six) Medical hours as Branch needed for Shortness of Breath. doxylamine- Yes [id number] Doxylamine [facility] pyridoxine, 02-07 10 ity of [...] mg (4 tablets) per day). albuterol Yes [id number] 2{puff} Inhale 2 [facility] 90 7-08 Puffs ity of mcg/actuati 00:00: every 6 [place] as on inhaler 00 (six) Medical hours as Branch needed for Shortness of Breath. doxylamine- Yes [id number] Doxylamine [facility] pyridoxine, 02-07 10 ity of [...] mg (4 tablets) per day). albuterol Yes [id number] 2{puff} Inhale 2 [facility] 90 7-08 Puffs ity of mcg/actuati 00:00: every 6 [place] as on inhaler 00 (six) Medical hours as Branch needed for Shortness of Breath. doxylamine Yes [id number] Doxylamine [facility] pyridoxine, 02-07 10 ity of [...] mg (4 tablets) per day). albuterol Yes [id number] 2{puff} Inhale 2 [facility] 90 7-08 Puffs ity of mcg/actuati 00:00: every 6 [place] as on inhaler 00 (six) Medical hours as Branch needed for Shortness of Breath. doxylamine- Yes [id number] Doxylamine [facility] pyridoxine, 02-07 10 ity of [...] mg (4 tablets) per day). albuterol Yes [id number] 2{puff} Inhale 2 [facility] 90 7-08 Puffs ity of mcg/actuati 00:00: every 6 [place] as on inhaler 00 (six) Medical hours as Branch needed for Shortness of Breath. doxylamine- Yes [id number] Doxylamine [facility] pyridoxine, 02-07 10 ity of [...] mg (4 tablets) per day). albuterol Yes [id number] 2{puff} Inhale 2 [facility] 90 7-08 Puffs ity of mcg/actuati 00:00: every 6 [place] as on inhaler 00 (six) Medical hours as Branch needed for Shortness of Breath. doxylamine- Yes [id number] Doxylamine [facility] pyridoxine, 02-07 10 ity of [...] mg (4 tablets) per day). albuterol Yes [id number] 2{puff} Inhale 2 [facility] 90 7-08 Puffs ity of mcg/actuati 00:00: every 6 [place] as on inhaler 00 (six) Medical hours as Branch needed for Shortness of Breath. doxylamine- Yes [id number] Doxylamine [facility] pyridoxine, 02-07 10 ity of [...] mg (4 tablets) per day). albuterol Yes [id number] 2{puff} Inhale 2 [facility] 90 7-08 Puffs ity of mcg/actuati 00:00: every 6 [place] as on inhaler 00 (six) Medical hours as Branch needed for Shortness of Breath. doxylamine- Yes [id number] Doxylamine [facility] pyridoxine, 02-07 10 ity of [...] mg (4 tablets) per day). albuterol Yes [id number] 2{puff} Inhale 2 [facility] 90 7-08 Puffs ity of mcg/actuati 00:00: every 6 [place] as on inhaler 00 (six) Medical hours as Branch needed for Shortness of Breath. doxylamine- Yes [id number] Doxylamine [facility] pyridoxine, 02-07 10 ity of [...] mg (4 tablets) per day). albuterol Yes [id number] 2{puff} Inhale 2 [facility] 90 7-08 Puffs ity of mcg/actuati 00:00: every 6 [place] as on inhaler 00 (six) Medical hours as Branch needed for Shortness of Breath. doxylamine- Yes [id number] Doxylamine [facility] pyridoxine, 02-07 10 ity of [...] mg (4 tablets) per day). albuterol Yes [id number] 2{puff} Inhale 2 [facility] 90 7-08 Puffs ity of mcg/actuati 00:00: every 6 [place] as on inhaler 00 (six) Medical hours as Branch needed for Shortness of Breath. doxylamine- Yes [id number] Doxylamine [facility] pyridoxine, 02-07 10 ity of [...] mg (4 tablets) per day). albuterol Yes [id number] 2{puff} Inhale 2 [facility] 90 7-08 Puffs ity of mcg/actuati 00:00: every 6 [place] as on inhaler 00 (six) Medical hours as Branch needed for Shortness of Breath. doxylamine- Yes [id number] Doxylamine [facility] pyridoxine, 02-07 10 ity of [...] mg (4 tablets) per day). albuterol Yes [id number] 2{puff} Inhale 2 [facility] 90 7-08 Puffs ity of mcg/actuati 00:00: every 6 [place] as on inhaler 00 (six) Medical hours as Branch needed for Shortness of Breath. doxylamine- Yes [id number] Doxylamine [facility] pyridoxine, 02-07 10 ity of [...] mg (4 tablets) per day). albuterol Yes [id number] 2{puff} Inhale 2 [facility] 90 7-08 Puffs ity of mcg/actuati 00:00: every 6 [place] as on inhaler 00 (six) Medical hours as Branch needed for Shortness of Breath. doxylamine- Yes [id number] Doxylamine [facility] pyridoxine, 7-08 10 ity of [...] mg (4 tablets) per day). albuterol Yes [id number] 2{puff} Inhale 2 [facility] 90 7-08 Puffs ity of mcg/actuati 00:00: every 6 [place] as on inhaler 00 (six) Medical hours as Branch needed for Shortness of Breath. albuterol Yes [id number] 2{puff} Inhale 2 [facility] 90 7-08 Puffs ity of mcg/actuati 00:00: every 6 [place] as on inhaler 00 (six) Medical hours as Branch needed for Shortness of Breath. albuterol Yes [id number] 2{puff} Inhale 2 [facility] 90 7-08 Puffs ity of mcg/actuati 00:00: every 6 [place] as on inhaler 00 (six) Medical hours as Branch needed for Shortness of Breath. albuterol Yes [id number] 2{puff} Inhale 2 [facility] 90 7-08 Puffs ity of mcg/actuati 00:00: every 6 [place] as on inhaler 00 (six) Medical hours as Branch needed for Shortness of Breath. albuterol Yes [id number] 2{puff} Inhale 2 [facility] 90 7-08 Puffs ity of mcg/actuati 00:00: every 6 [place] as on inhaler 00 (six) Medical hours as Branch needed for Shortness of Breath. albuterol Yes [id number] 2{puff} Inhale 2 [facility] 90 7-08 Puffs ity of mcg/actuati 00:00: every 6 [place] as on inhaler 00 (six) Medical hours as Branch needed for Shortness of Breath. albuterol Yes [id number] 2{puff} Inhale 2 [facility] 90 7-08 Puffs ity of mcg/actuati 00:00: every 6 [place] as on inhaler 00 (six) Medical hours as Branch needed for Shortness of Breath. albuterol Yes [id number] 2{puff} Inhale 2 [facility] 90 7-08 Puffs ity of mcg/actuati 00:00: every 6 [place] as on inhaler 00 (six) Medical hours as Branch needed for Shortness of Breath. albuterol Yes [id number] 2{puff} Inhale 2 [facility] 90 7-08 Puffs ity of mcg/actuati 00:00: every 6 [place] as on inhaler 00 (six) Medical hours as Branch needed for Shortness of Breath. albuterol Yes [id number] 2{puff} Inhale 2 [facility] 90 7-08 Puffs ity of mcg/actuati 00:00: every 6 [place] as on inhaler 00 (six) Medical hours as Branch needed for Shortness of Breath. albuterol Yes [id number] 2{puff} Inhale 2 [facility] 90 7-08 Puffs ity of mcg/actuati 00:00: every 6 [place] as on inhaler 00 (six) Medical hours as Branch needed for Shortness of Breath. albuterol Yes [id number] 2{puff} Inhale 2 [facility] 90 7-08 Puffs ity of mcg/actuati 00:00: every 6 [place] as on inhaler 00 (six) Medical hours as Branch needed for Shortness of Breath. albuterol Yes [id number] 2{puff} Inhale 2 [facility] 90 7-08 Puffs ity of mcg/actuati 00:00: every 6 [place] as on inhaler 00 (six) Medical hours as Branch needed for Shortness of Breath. albuterol Yes [id number] 2{puff} Inhale 2 [facility] 90 7-08 Puffs ity of mcg/actuati 00:00: every 6 [place] as on inhaler 00 (six) Medical hours as Branch needed for Shortness of Breath. albuterol Yes [id number] 2{puff} Inhale 2 [facility] 90 7-08 Puffs ity of mcg/actuati 00:00: every 6 [place] as on inhaler 00 (six) Medical hours as Branch needed for Shortness of Breath. albuterol Yes [id number] 2{puff} Inhale 2 [facility] 90 7-08 Puffs ity of mcg/actuati 00:00: every 6 [place] as on inhaler 00 (six) Medical hours as Branch needed for Shortness of Breath. albuterol Yes [id number] 2{puff} Inhale 2 [facility] 90 7-08 Puffs ity of mcg/actuati 00:00: every 6 [place] as on inhaler 00 (six) Medical hours as Branch needed for Shortness of Breath. albuterol Yes [id number] 2{puff} Inhale 2 [facility] 90 7-08 Puffs ity of mcg/actuati 00:00: every 6 [place] as on inhaler 00 (six) Medical hours as Branch needed for Shortness of Breath. albuterol Yes [id number] 2{puff} Inhale 2 [facility] 90 7-08 Puffs ity of mcg/actuati 00:00: every 6 [place] as on inhaler 00 (six) Medical hours as Branch needed for Shortness of Breath. albuterol Yes [id number] 2{puff} Inhale 2 [facility] 90 7-08 Puffs ity of mcg/actuati 00:00: every 6 [place] as on inhaler 00 (six) Medical hours as Branch needed for Shortness of Breath. albuterol Yes [id number] 2{puff} Inhale 2 [facility] 90 7-08 Puffs ity of mcg/actuati 00:00: every 6 [place] as on inhaler 00 (six) Medical hours as Branch needed for Shortness of Breath. albuterol Yes [id number] 2{puff} Inhale 2 [facility] 90 7-08 Puffs ity of mcg/actuati 00:00: every 6 [place] as on inhaler 00 (six) Medical hours as Branch needed for Shortness of Breath. albuterol Yes [id number] 2{puff} Inhale 2 [facility] 90 7-08 Puffs ity of mcg/actuati 00:00: every 6 [place] as on inhaler 00 (six) Medical hours as Branch needed for Shortness of Breath. albuterol Yes [id number] 2{puff} Inhale 2 [facility] 90 7-08 Puffs ity of mcg/actuati 00:00: every 6 [place] as on inhaler 00 (six) Medical hours as Branch needed for Shortness of Breath. albuterol Yes [id number] 2{puff} Inhale 2 [facility] 90 7-08 Puffs ity of mcg/actuati 00:00: every 6 [place] as on inhaler 00 (six) Medical hours as Branch needed for Shortness of Breath. albuterol Yes [id number] 2{puff} Inhale 2 [facility] 90 7-08 Puffs ity of mcg/actuati 00:00: every 6 [place] as on inhaler 00 (six) Medical hours as Branch needed for Shortness of Breath. albuterol Yes [id number] 2{puff} Inhale 2 [facility] 90 7-08 Puffs ity of mcg/actuati 00:00: every 6 [place] as on inhaler 00 (six) Medical hours as Branch needed for Shortness of Breath. albuterol Yes [id number] 2{puff} Inhale 2 [facility] 90 7-08 Puffs ity of mcg/actuati 00:00: every 6 [place] as on inhaler 00 (six) Medical hours as Branch needed for Shortness of Breath. albuterol Yes [id number] 2{puff} Inhale 2 [facility] 90 7-08 Puffs ity of mcg/actuati 00:00: every 6 [place] as on inhaler 00 (six) Medical hours as Branch needed for Shortness of Breath. albuterol Yes [id number] 2{puff} Inhale 2 [facility] 90 7-08 Puffs ity of mcg/actuati 00:00: every 6 [place] as on inhaler 00 (six) Medical hours as Branch needed for Shortness of Breath. albuterol Yes [id number] 2{puff} Inhale 2 [facility] 90 7-08 Puffs ity of mcg/actuati 00:00: every 6 [place] as on inhaler 00 (six) Medical hours as Branch needed for Shortness of Breath. albuterol Yes [id number] 2{puff} Inhale 2 [facility] 90 7-08 Puffs ity of mcg/actuati 00:00: every 6 [place] as on inhaler 00 (six) Medical hours as Branch needed for Shortness of Breath. albuterol Yes [id number] 2{puff} Inhale 2 [facility] 90 7-08 Puffs ity of mcg/actuati 00:00: every 6 [place] as on inhaler 00 (six) Medical hours as Branch needed for Shortness of Breath. albuterol Yes [id number] 2{puff} Inhale 2 [facility] 90 7-08 Puffs ity of mcg/actuati 00:00: every 6 [place] as on inhaler 00 (six) Medical hours as Branch needed for Shortness of Breath. albuterol Yes [id number] 2{puff} Inhale 2 [facility] 90 7-08 Puffs ity of mcg/actuati 00:00: every 6 [place] as on inhaler 00 (six) Medical hours as Branch needed for Shortness of Breath. albuterol Yes [id number] 2{puff} Inhale 2 [facility] 90 7-08 Puffs ity of mcg/actuati 00:00: every 6 [place] as on inhaler 00 (six) Medical hours as Branch needed for Shortness of Breath. albuterol Yes [id number] 2{puff} Inhale 2 [facility] 90 7-08 Puffs ity of mcg/actuati 00:00: every 6 [place] as on inhaler 00 (six) Medical hours as Branch needed for Shortness of Breath. albuterol Yes [id number] 2{puff} Inhale 2 [facility] 90 7-08 Puffs ity of mcg/actuati 00:00: every 6 [place] as on inhaler 00 (six) Medical hours as Branch needed for Shortness of Breath. albuterol Yes [id number] 2{puff} Inhale 2 [facility] 90 7-08 Puffs ity of mcg/actuati 00:00: every 6 [place] as on inhaler 00 (six) Medical hours as Branch needed for Shortness of Breath. albuterol Yes [id number] 2{puff} Inhale 2 [facility] 90 7-08 Puffs ity of mcg/actuati 00:00: every 6 [place] as on inhaler 00 (six) Medical hours as Branch needed for Shortness of Breath. albuterol Yes [id number] 2{puff} Inhale 2 [facility] 90 7-08 Puffs ity of mcg/actuati 00:00: every 6 [place] as on inhaler 00 (six) Medical hours as Branch needed for Shortness of Breath. albuterol Yes [id number] 2{puff} Inhale 2 [facility] 90 7-08 Puffs ity of mcg/actuati 00:00: every 6 [place] as on inhaler 00 (six) Medical hours as Branch needed for Shortness of Breath. albuterol Yes [id number] 2{puff} Inhale 2 [facility] 90 7-08 Puffs ity of mcg/actuati 00:00: every 6 [place] as on inhaler 00 (six) Medical hours as Branch needed for Shortness of Breath. albuterol Yes [id number] 2{puff} Inhale 2 [facility] 90 7-08 Puffs ity of mcg/actuati 00:00: every 6 [place] as on inhaler 00 (six) Medical hours as Branch needed for Shortness of Breath. albuterol Yes [id number] 2{puff} Inhale 2 [facility] 90 7-08 Puffs ity of mcg/actuati 00:00: every 6 [place] as on inhaler 00 (six) Medical hours as Branch needed for Shortness of Breath. albuterol Yes [id number] 2{puff} Inhale 2 [facility] 90 7-08 Puffs [facility] of mcg/actuati 00:00: every 6 [place] [facility] on inhaler 00 (six) Medical hours as Branch needed for Shortness of Breath. albuterol Yes [id number] 2{puff} Inhale 2 [facility] 90 7-08 Puffs [facility] of mcg/actuati 00:00: every 6 [place] [facility] on inhaler 00 (six) Medical hours as [facility] needed for Shortness of Breath. albuterol Yes [id number] 2{puff} Inhale 2 [facility] 90 7-08 Puffs [facility] of mcg/actuati 00:00: every 6 [place] [facility] inhaler 00 (six) Medical hours as [facility] needed for Shortness of Breath. albuterol Yes [id number] 2{puff} Inhale 2 [facility] 90 7-08 Puffs [facility] of mcg/actuati 00:00: every 6 [place] [facility] inhaler 00 (six) Medical hours as Branch needed for Shortness of Breath. albuterol Yes [id number] 2{puff} Inhale 2 [facility] 90 7-08 Puffs [facility] of mcg/actuati 00:00: every 6 [place] [facility] inhaler 00 (six) Medical hours as [facility] needed for Shortness of Breath. albuterol Yes [id number] 2{puff} Inhale 2 [facility] 90 7-08 Puffs [facility] of mcg/actuati 00:00: every 6 [place] [facility] inhaler 00 (six) Medical hours as Branch needed for Shortness of Breath. albuterol Yes [id number] 2{puff} Inhale 2 [facility] 90 7-08 Puffs [facility] of mcg/actuati 00:00: every 6 [place] [facility] on inhaler 00 (six) Medical hours as Branch needed for Shortness of Breath. albuterol Yes [id number] 2{puff} Inhale 2 [facility] 90 7-08 Puffs [facility] of mcg/actuati 00:00: every 6 [place] [facility] inhaler 00 (six) Medical hours as [facility] needed for Shortness of Breath. albuterol Yes [id number] 2{puff} Inhale 2 [facility] 90 7-08 Puffs [facility] of mcg/actuati 00:00: every 6 [place] [facility] inhaler 00 (six) Medical hours as Branch needed for Shortness of Breath. albuterol Yes [id number] 2{puff} Inhale 2 [facility] 90 7-08 Puffs [facility] of mcg/actuati 00:00: every 6 [place] [facility] inhaler 00 (six) Medical hours as Branch needed for Shortness of Breath. albuterol Yes [id number] 2{puff} Inhale 2 [facility] 90 7-08 Puffs [facility] of mcg/actuati 00:00: every 6 [place] [facility] on inhaler 00 (six) Medical hours as Branch needed for Shortness of Breath. albuterol Yes [id number] 2{puff} Inhale 2 [facility] 90 7-08 Puffs [facility] of mcg/actuati 00:00: every 6 [place] [facility] inhaler 00 (six) Medical hours as [facility] needed for Shortness of Breath. albuterol Yes [id number] 2{puff} Inhale 2 [facility] 90 7-08 Puffs [facility] of mcg/actuati 00:00: every 6 [place] [facility] inhaler 00 (six) Medical hours as Branch needed for Shortness of Breath. albuterol Yes [id number] 2{puff} Inhale 2 [facility] 90 7-08 Puffs [facility] of mcg/actuati 00:00: every 6 [place] [facility] on inhaler 00 (six) Medical hours as Branch needed for Shortness of Breath. albuterol Yes [id number] 2{puff} Inhale 2 [facility] 90 7-08 Puffs [facility] of mcg/actuati 00:00: every 6 [place] [facility] inhaler 00 (six) Medical hours as Branch needed for Shortness of Breath. albuterol Yes [id number] 2{puff} Inhale 2 [facility] 90 7-08 Puffs [facility] of mcg/actuati 00:00: every 6 [place] [facility] inhaler 00 (six) Medical hours as [facility] needed for Shortness of Breath. albuterol Yes [id number] 2{puff} Inhale 2 [facility] 90 7-08 Puffs [facility]y of mcg/actuati 00:00: every 6 [place] [facility] on inhaler 00 (six) Medical hours as [facility] needed for Shortness of Breath. albuterol Yes [id number] 2{puff} Inhale 2 [facility] 90 7-08 Puffs [facility]y of mcg/actuati 00:00: every 6 [place] [facility] on inhaler 00 (six) Medical hours as [facility] needed for Shortness of Breath. albuterol Yes [id number] 2{puff} Inhale 2 [facility] 90 7-08 Puffs [facility]y of mcg/actuati 00:00: every 6 [place] [facility] inhaler 00 (six) Medical hours as [facility] needed for Shortness of Breath. albuterol Yes [id number] 2{puff} Inhale 2 [facility] 90 7-08 Puffs [facility]y of mcg/actuati 00:00: every 6 [place] [facility] on inhaler 00 (six) Medical hours as [facility] needed for Shortness of Breath. albuterol Yes [id number] 2{puff} Inhale 2 [facility] 90 7-08 Puffs [facility]y of mcg/actuati 00:00: every 6 [place] [facility] inhaler 00 (six) Medical hours as [facility] needed for Shortness of Breath. albuterol Yes [id number] 2{puff} Inhale 2 [facility] 90 7-08 Puffs [facility]y of mcg/actuati 00:00: every 6 [place] [facility] on inhaler 00 (six) Medical hours as [facility] needed for Shortness of Breath. albuterol Yes [id number] 2{puff} Inhale 2 [facility] 90 7-08 Puffs [facility]y of mcg/actuati 00:00: every 6 [place] [facility] on inhaler 00 (six) Medical hours as [facility] needed for Shortness of Breath. albuterol Yes [id number] 2{puff} Inhale 2 [facility] 90 7-08 Puffs [facility]y of mcg/actuati 00:00: every 6 [place] [facility] on inhaler 00 (six) Medical hours as Branch needed for Shortness of Breath. albuterol Yes [id number] 2{puff} Inhale 2 [facility] 90 7-08 Puffs [facility]y of mcg/actuati 00:00: every 6 [place] [facility] on inhaler 00 (six) Medical hours as [facility] needed for Shortness of Breath. albuterol Yes [id number] 2{puff} Inhale 2 [facility] 90 7-08 Puffs [facility]y of mcg/actuati 00:00: every 6 [place] [facility] on inhaler 00 (six) Medical hours as Branch needed for Shortness of Breath. albuterol Yes [id number] 2{puff} Inhale 2 [facility] 90 7-08 Puffs [facility]y of mcg/actuati 00:00: every 6 [place] [facility] on inhaler 00 (six) Medical hours as Branch needed for Shortness of Breath. albuterol Yes [id number] 2{puff} Inhale 2 [facility] 90 7-08 Puffs [facility]y of mcg/actuati 00:00: every 6 [place] [facility] on inhaler 00 (six) Medical hours as Branch needed for Shortness of Breath. albuterol Yes [id number] 2{puff} Inhale 2 [facility] 90 7-08 Puffs [facility]y of mcg/actuati 00:00: every 6 [place] [facility] on inhaler 00 (six) Medical hours as Branch needed for Shortness of Breath. albuterol Yes [id number] 2{puff} Inhale 2 [facility] 90 7-08 Puffs [facility]y of mcg/actuati 00:00: every 6 [place] [facility] on inhaler 00 (six) Medical hours as Branch needed for Shortness of Breath. albuterol Yes [id number] 2{puff} Inhale 2 [facility] 90 7-08 Puffs [facility]y of mcg/actuati 00:00: every 6 [place] [facility] on inhaler 00 (six) Medical hours as Branch needed for Shortness of Breath. albuterol Yes [id number] 2{puff} Inhale 2 [facility] 90 7-08 Puffs [facility]y of mcg/actuati 00:00: every 6 [place] [facility] on inhaler 00 (six) Medical hours as Branch needed for Shortness of Breath. albuterol Yes [id number] 2{puff} Inhale 2 [facility] 90 7-08 Puffs [facility]y of mcg/actuati 00:00: every 6 [place] [facility] on inhaler 00 (six) Medical hours as Branch needed for Shortness of Breath. albuterol Yes [id number] 2{puff} Inhale 2 [facility] 90 7-08 Puffs [facility]y of mcg/actuati 00:00: every 6 [place] [facility] on inhaler 00 (six) Medical hours as Branch needed for Shortness of Breath. albuterol Yes [id number] 2{puff} Inhale 2 [facility] 90 7-08 Puffs [facility]y of mcg/actuati 00:00: every 6 [place] [facility] on inhaler 00 (six) Medical hours as Branch needed for Shortness of Breath. albuterol Yes [id number] 2{puff} Inhale 2 [facility] 90 7-08 Puffs [facility]y of mcg/actuati 00:00: every 6 [place] [facility] on inhaler 00 (six) Medical hours as [facility] needed for Shortness of Breath. albuterol Yes [id number] 2{puff} Inhale 2 [facility] 90 7-08 Puffs [facility]y of mcg/actuati 00:00: every 6 [place] [facility] on inhaler 00 (six) Medical hours as Branch needed for Shortness of Breath. albuterol Yes [id number] 2{puff} Inhale 2 [facility] 90 7-08 Puffs [facility]y of mcg/actuati 00:00: every 6 [place] [facility] on inhaler 00 (six) Medical hours as Branch needed for Shortness of Breath. albuterol Yes [id number] 2{puff} Inhale 2 [facility] 90 7-08 Puffs [facility] of mcg/actuati 00:00: every 6 [place] [facility] on inhaler 00 (six) Medical hours as [facility] needed for Shortness of Breath. albuterol Yes [id number] 2{puff} Inhale 2 [facility] 90 7-08 Puffs [facility]y of mcg/actuati 00:00: every 6 [place] [facility] on inhaler 00 (six) Medical hours as Branch needed for Shortness of Breath. albuterol Yes [id number] 2{puff} Inhale 2 [facility] 90 7-08 Puffs ity of mcg/actuati 00:00: every 6 [place] [facility] on inhaler 00 (six) Medical hours as Branch needed for Shortness of Breath. doxylamine- 2021- No [id number] Doxylamine [facility] pyridoxine, 02-07 10-21 10 ity of vit B6, 00:00: [...] (4 tablets) per day). doxylamine- 2021- No [id number] Doxylamine [facility] pyridoxine, 02-07 10 ity of [...] (4 tablets) per day). doxylamine- 2021- No [id number] Doxylamine [facility] pyridoxine, 02-07 10 ity of [...] (4 tablets) per day). doxylamine- 2021- No [id number] Doxylamine [facility] pyridoxine, 02-07 10 ity of [...] tablets) per day). aspirin 81 2021-0 Yes [id number] 81mg Take 1 [facility] mg EC 7-07 tablet by [facility]y of tablet 00:00: mouth [place] 00 daily. [facility] aspirin 81 2021-0 Yes [id number] 81mg Take 1 [facility] mg EC 7-07 tablet by ity of tablet 00:00: mouth [place] 00 daily. [facility] aspirin 81 0 Yes [id number] 81mg Take 1 [facility] mg EC 7-07 tablet by ity of tablet 00:00: mouth [place] 00 daily. [facility] aspirin 81 2021-0 Yes [id number] 81mg Take 1 [facility] mg EC 7-07 tablet by ity of tablet 00:00: mouth [place] 00 daily. [facility] aspirin 81 2021-0 Yes [id number] 81mg Take 1 [facility] mg EC 7-07 tablet by ity of tablet 00:00: mouth [place] 00 daily. [facility] aspirin 81 0 Yes [id number] 81mg Take 1 [facility] mg EC 7-07 tablet by ity of tablet 00:00: mouth [place] 00 daily. [facility] aspirin 81 2021-0 Yes [id number] 81mg Take 1 [facility] mg EC 7-07 tablet by ity of tablet 00:00: mouth [place] 00 daily. [facility] aspirin 81 2021-0 Yes [id number] 81mg Take 1 [facility] mg EC 7-07 tablet by ity of tablet 00:00: mouth [place] 00 daily. [facility] aspirin 81 2021-0 Yes [id number] 81mg Take 1 [facility] mg EC 7-07 tablet by ity of tablet 00:00: mouth [place] 00 daily. [facility] aspirin 81 2021-0 Yes [id number] 81mg Take 1 [facility] mg EC 7-07 tablet by ity of tablet 00:00: mouth [place] 00 daily. [facility] aspirin 81 2021-0 Yes [id number] 81mg Take 1 [facility] mg EC 7-07 tablet by ity of tablet 00:00: mouth [place] 00 daily. [facility] aspirin 81 2021-0 Yes [id number] 81mg Take 1 [facility] mg EC 7-07 tablet by ity of tablet 00:00: mouth [place] 00 daily. [facility] aspirin 81 2021-0 Yes [id number] 81mg Take 1 [facility] mg EC 7-07 tablet by ity of tablet 00:00: mouth [place] 00 daily. [facility] aspirin 81 2021-0 Yes [id number] 81mg Take 1 [facility] mg EC 7-07 tablet by ity of tablet 00:00: mouth [place] 00 daily. [facility] aspirin 81 2021-0 Yes [id number] 81mg Take 1 [facility] mg EC 7-07 tablet by ity of tablet 00:00: mouth [place] 00 daily. [facility] aspirin 81 2021-0 Yes [id number] 81mg Take 1 [facility] mg EC 7-07 tablet by ity of tablet 00:00: mouth [place] 00 daily. [facility] aspirin 81 2021-0 Yes [id number] 81mg Take 1 [facility] mg EC 7-07 tablet by ity of tablet 00:00: mouth [place] 00 daily. [facility] aspirin 81 2021-0 Yes [id number] 81mg Take 1 [facility] mg EC 7-07 tablet by ity of tablet 00:00: mouth [place] 00 daily. [facility] aspirin 81 2021-0 Yes [id number] 81mg Take 1 [facility] mg EC 7-07 tablet by ity of tablet 00:00: mouth [place] 00 daily. [facility] aspirin 81 2021-0 Yes [id number] 81mg Take 1 [facility] mg EC 7-07 tablet by ity of tablet 00:00: mouth [place] 00 daily. [facility] aspirin 81 2021-0 Yes [id number] 81mg Take 1 [facility] mg EC 7-07 tablet by ity of tablet 00:00: mouth [place] 00 daily. [facility] aspirin 81 2021-0 Yes [id number] 81mg Take 1 [facility] mg EC 7-07 tablet by ity of tablet 00:00: mouth [place] 00 daily. [facility] aspirin 81 2021-0 Yes [id number] 81mg Take 1 [facility] mg EC 7-07 tablet by ity of tablet 00:00: mouth [place] 00 daily. [facility] aspirin 81 2021-0 Yes [id number] 81mg Take 1 [facility] mg EC 7-07 tablet by ity of tablet 00:00: mouth [place] 00 daily. [facility] aspirin 81 2021-0 Yes [id number] 81mg Take 1 [facility] mg EC 7-07 tablet by ity of tablet 00:00: mouth [place] 00 daily. [facility] aspirin 81 2022-0 Yes [id number] 81mg Take 1 [facility] mg EC 7-07 tablet by ity of tablet 00:00: mouth [place] 00 daily. [facility] aspirin 81 2021-0 Yes [id number] 81mg Take 1 [facility] mg EC 7-07 tablet by ity of tablet 00:00: mouth [place] 00 daily. [facility] aspirin 81 2021-0 Yes [id number] 81mg Take 1 [facility] mg EC 7-07 tablet by ity of tablet 00:00: mouth [place] 00 daily. [facility] aspirin 81 2021-0 Yes [id number] 81mg Take 1 [facility] mg EC 7-07 tablet by ity of tablet 00:00: mouth [place] 00 daily. [facility] aspirin 81 2021-0 Yes [id number] 81mg Take 1 [facility] mg EC 7-07 tablet by ity of tablet 00:00: mouth [place] 00 daily. [facility] aspirin 81 2021-0 Yes [id number] 81mg Take 1 [facility] mg EC 7-07 tablet by ity of tablet 00:00: mouth [place] 00 daily. [facility] aspirin 81 0 Yes [id number] 81mg Take 1 [facility] mg EC 7-07 tablet by ity of tablet 00:00: mouth [place] 00 daily. [facility] aspirin 81 0 Yes [id number] 81mg Take 1 [facility] mg EC 7-07 tablet by ity of tablet 00:00: mouth [place] 00 daily. [facility] aspirin 81 2021-0 Yes [id number] 81mg Take 1 [facility] mg EC 7-07 tablet by ity of tablet 00:00: mouth [place] 00 daily. [facility] aspirin 81 2021-0 Yes [id number] 81mg Take 1 [facility] mg EC 7-07 tablet by ity of tablet 00:00: mouth [place] 00 daily. [facility] aspirin 81 2021-0 Yes [id number] 81mg Take 1 [facility] mg EC 7-07 tablet by ity of tablet 00:00: mouth [place] 00 daily. [facility] aspirin 81 2021-0 Yes [id number] 81mg Take 1 [facility] mg EC 7-07 tablet by ity of tablet 00:00: mouth [place] 00 daily. [facility] aspirin 81 2021-0 Yes [id number] 81mg Take 1 [facility] mg EC 7-07 tablet by ity of tablet 00:00: mouth [place] 00 daily. [facility] aspirin 81 2021-0 Yes [id number] 81mg Take 1 [facility] mg EC 7-07 tablet by ity of tablet 00:00: mouth [place] 00 daily. [facility] aspirin 81 2021-0 Yes [id number] 81mg Take 1 [facility] mg EC 7-07 tablet by ity of tablet 00:00: mouth [place] 00 daily. [facility] aspirin 81 2021-0 Yes [id number] 81mg Take 1 [facility] mg EC 7-07 tablet by ity of tablet 00:00: mouth [place] 00 daily. [facility] aspirin 81 2021-0 Yes [id number] 81mg Take 1 [facility] mg EC 7-07 tablet by ity of tablet 00:00: mouth [place] 00 daily. [facility] aspirin 81 2021-0 Yes [id number] 81mg Take 1 [facility] mg EC 7-07 tablet by ity of tablet 00:00: mouth [place] 00 daily. [facility] aspirin 81 2021-0 Yes [id number] 81mg Take 1 [facility] mg EC 7-07 tablet by ity of tablet 00:00: mouth [place] 00 daily. [facility] aspirin 81 2021-0 Yes [id number] 81mg Take 1 [facility] mg EC 7-07 tablet by ity of tablet 00:00: mouth [place] 00 daily. [facility] aspirin 81 0 Yes [id number] 81mg Take 1 [facility] mg EC 7-07 tablet by ity of tablet 00:00: mouth [place] 00 daily. [facility] aspirin 81 2021-0 Yes [id number] 81mg Take 1 [facility] mg EC 7-07 tablet by ity of tablet 00:00: mouth [place] 00 daily. [facility] aspirin 81 2021-0 Yes [id number] 81mg Take 1 [facility] mg EC 7-07 tablet by ity of tablet 00:00: mouth [place] 00 daily. [facility] aspirin 81 2021-0 Yes [id number] 81mg Take 1 [facility] mg EC 7-07 tablet by ity of tablet 00:00: mouth [place] 00 daily. [facility] aspirin 81 2021-0 Yes [id number] 81mg Take 1 [facility] mg EC 7-07 tablet by ity of tablet 00:00: mouth [place] 00 daily. [facility] aspirin 81 2021-0 Yes [id number] 81mg Take 1 [facility] mg EC 7-07 tablet by ity of tablet 00:00: mouth [place] 00 daily. [facility] aspirin 81 2021-0 Yes [id number] 81mg Take 1 [facility] mg EC 7-07 tablet by ity of tablet 00:00: mouth [place] 00 daily. [facility] aspirin 81 2021-0 Yes [id number] 81mg Take 1 [facility] mg EC 7-07 tablet by ity of tablet 00:00: mouth [place] 00 daily. [facility] aspirin 81 2021-0 Yes [id number] 81mg Take 1 [facility] mg EC 7-07 tablet by ity of tablet 00:00: mouth [place] 00 daily. [facility] aspirin 81 2021-0 Yes [id number] 81mg Take 1 [facility] mg EC 7-07 tablet by ity of tablet 00:00: mouth [place] 00 daily. [facility] aspirin 81 2021-0 Yes [id number] 81mg Take 1 [facility] mg EC 7-07 tablet by ity of tablet 00:00: mouth [place] 00 daily. [facility] aspirin 81 2021-0 Yes [id number] 81mg Take 1 [facility] mg EC 7-07 tablet by ity of tablet 00:00: mouth [place] 00 daily. [facility] aspirin 81 2021-0 Yes [id number] 81mg Take 1 [facility] mg EC 7-07 tablet by ity of tablet 00:00: mouth [place] 00 daily. [facility] aspirin 81 2021-0 Yes [id number] 81mg Take 1 [facility] mg EC 7-07 tablet by ity of tablet 00:00: mouth [place] 00 daily. [facility] aspirin 81 2021-0 Yes [id number] 81mg Take 1 [facility] mg EC 7-07 tablet by ity of tablet 00:00: mouth [place] 00 daily. [facility] aspirin 81 2021-0 Yes [id number] 81mg Take 1 [facility] mg EC 7-07 tablet by ity of tablet 00:00: mouth [place] 00 daily. [facility] aspirin 81 2021-0 Yes [id number] 81mg Take 1 [facility] mg EC 7-07 tablet by ity of tablet 00:00: mouth [place] 00 daily. [facility] aspirin 81 2021-0 Yes [id number] 81mg Take 1 [facility] mg EC 7-07 tablet by ity of tablet 00:00: mouth [place] 00 daily. [facility] aspirin 81 2021-0 Yes [id number] 81mg Take 1 [facility] mg EC 7-07 tablet by ity of tablet 00:00: mouth [place] 00 daily. [facility] aspirin 81 2021-0 Yes [id number] 81mg Take 1 [facility] mg EC 7-07 tablet by ity of tablet 00:00: mouth [place] 00 daily. [facility] aspirin 81 2021-0 Yes [id number] 81mg Take 1 [facility] mg EC 7-07 tablet by ity of tablet 00:00: mouth [place] 00 daily. [facility] aspirin 81 2021-0 Yes [id number] 81mg Take 1 [facility] mg EC 7-07 tablet by ity of tablet 00:00: mouth [place] 00 daily. [facility] aspirin 81 2021-0 Yes [id number] 81mg Take 1 [facility] mg EC 7-07 tablet by ity of tablet 00:00: mouth [place] 00 daily. [facility] aspirin 81 2021-0 Yes [id number] 81mg Take 1 [facility] mg EC 7-07 tablet by ity of tablet 00:00: mouth [place] 00 daily. [facility] aspirin 81 2021-0 Yes [id number] 81mg Take 1 [facility] mg EC 7-07 tablet by ity of tablet 00:00: mouth [place] 00 daily. [facility] aspirin 81 2021-0 Yes [id number] 81mg Take 1 [facility] mg EC 7-07 tablet by ity of tablet 00:00: mouth [place] 00 daily. [facility] aspirin 81 2021-0 Yes [id number] 81mg Take 1 [facility] mg EC 7-07 tablet by ity of tablet 00:00: mouth [place] 00 daily. [facility] aspirin 81 2021-0 Yes [id number] 81mg Take 1 [facility] mg EC 7-07 tablet by ity of tablet 00:00: mouth [place] 00 daily. [facility] aspirin 81 2021-0 Yes [id number] 81mg Take 1 [facility] mg EC 7-07 tablet by ity of tablet 00:00: mouth [place] 00 daily. [facility] aspirin 81 2021-0 Yes [id number] 81mg Take 1 [facility] mg EC 7-07 tablet by ity of tablet 00:00: mouth [place] 00 daily. [facility] aspirin 81 2021-0 Yes [id number] 81mg Take 1 [facility] mg EC 7-07 tablet by ity of tablet 00:00: mouth [place] 00 daily. [facility] aspirin 81 2021-0 Yes [id number] 81mg Take 1 [facility] mg EC 7-07 tablet by ity of tablet 00:00: mouth [place] 00 daily. [facility] aspirin 81 2021-0 Yes [id number] 81mg Take 1 [facility] mg EC 7-07 tablet by ity of tablet 00:00: mouth [place] 00 daily. [facility] aspirin 81 2021-0 Yes [id number] 81mg Take 1 [facility] mg EC 7-07 tablet by ity of tablet 00:00: mouth [place] 00 daily. [facility] aspirin 81 2021-0 Yes [id number] 81mg Take 1 [facility] mg EC 7-07 tablet by ity of tablet 00:00: mouth [place] 00 daily. [facility] aspirin 81 2021-0 Yes [id number] 81mg Take 1 [facility] mg EC 7-07 tablet by ity of tablet 00:00: mouth [place] 00 daily. [facility] aspirin 81 2021-0 Yes [id number] 81mg Take 1 [facility] mg EC 7-07 tablet by ity of tablet 00:00: mouth [place] 00 daily. [facility] aspirin 81 2021-0 Yes [id number] 81mg Take 1 [facility] mg EC 7-07 tablet by ity of tablet 00:00: mouth [place] 00 daily. [facility] aspirin 81 2021-0 Yes [id number] 81mg Take 1 [facility] mg EC 7-07 tablet by ity of tablet 00:00: mouth [place] 00 daily. [facility] aspirin 81 2021-0 Yes [id number] 81mg Take 1 [facility] mg EC 7-07 tablet by ity of tablet 00:00: mouth [place] 00 daily. [facility] aspirin 81 2021-0 Yes [id number] 81mg Take 1 [facility] mg EC 7-07 tablet by ity of tablet 00:00: mouth [place] 00 daily. [facility] aspirin 81 2021-0 Yes [id number] 81mg Take 1 [facility] mg EC 7-07 tablet by ity of tablet 00:00: mouth [place] 00 daily. [facility] aspirin 81 2021-0 Yes [id number] 81mg Take 1 [facility] mg EC 7-07 tablet by ity of tablet 00:00: mouth [place] 00 daily. [facility] aspirin 81 2021-0 Yes [id number] 81mg Take 1 [facility] mg EC 7-07 tablet by ity of tablet 00:00: mouth [place] 00 daily. [facility] aspirin 81 2021-0 Yes [id number] 81mg Take 1 [facility] mg EC 7-07 tablet by ity of tablet 00:00: mouth [place] 00 daily. [facility] aspirin 81 2021-0 Yes [id number] 81mg Take 1 [facility] mg EC 7-07 tablet by ity of tablet 00:00: mouth [place] 00 daily. [facility] aspirin 81 2021-0 Yes [id number] 81mg Take 1 [facility] mg EC 7-07 tablet by ity of tablet 00:00: mouth [place] 00 daily. [facility] aspirin 81 2021-0 Yes [id number] 81mg Take 1 [facility] mg EC 7-07 tablet by ity of tablet 00:00: mouth [place] 00 daily. [facility] aspirin 81 2021-0 Yes [id number] 81mg Take 1 [facility] mg EC 7-07 tablet by ity of tablet 00:00: mouth [place] 00 daily. [facility] aspirin 81 2021-0 Yes [id number] 81mg Take 1 [facility] mg EC 7-07 tablet by ity of tablet 00:00: mouth [place] 00 daily. [facility] aspirin 81 2021-0 Yes [id number] 81mg Take 1 [facility] mg EC 7-07 tablet by ity of tablet 00:00: mouth [place] 00 daily. [facility] aspirin 81 2021-0 Yes [id number] 81mg Take 1 [facility] mg EC 7-07 tablet by ity of tablet 00:00: mouth [place] 00 daily. [facility] aspirin 81 2021-0 Yes [id number] 81mg Take 1 [facility] mg EC 7-07 tablet by ity of tablet 00:00: mouth [place] 00 daily. [facility] aspirin 81 2021-0 Yes [id number] 81mg Take 1 [facility] mg EC 7-07 tablet by ity of tablet 00:00: mouth [place] 00 daily. [facility] aspirin 81 2021-0 Yes [id number] 81mg Take 1 [facility] mg EC 7-07 tablet by ity of tablet 00:00: mouth [place] 00 daily. [facility] aspirin 81 2021-0 Yes [id number] 81mg Take 1 [facility] mg EC 7-07 tablet by ity of tablet 00:00: mouth [place] 00 daily. [facility] aspirin 81 2021-0 Yes [id number] 81mg Take 1 [facility] mg EC 7-07 tablet by ity of tablet 00:00: mouth [place] 00 daily. [facility] aspirin 81 2021-0 Yes [id number] 81mg Take 1 [facility] mg EC 7-07 tablet by ity of tablet 00:00: mouth [place] 00 daily. [facility] aspirin 81 2021-0 2023- No [id number] 81mg Take 1 [facility] mg EC 7-07 02-10 tablet by ity of tablet 00:00: 00:00 mouth [place] 00 :00 daily. [facility] aspirin 81 0 2022- No [id number] 81mg Take 1 [facility] mg EC 02-06-10 tablet by ity of tablet 00:00: 00:00 mouth [place] 00 :00 daily. [facility] aspirin 81 2021-0 2022- No [id number] 81mg Take 1 [facility] mg EC 02-06-10 tablet by ity of tablet 00:00: 00:00 mouth [place] 00 :00 daily. [facility] acetaminoph 2021- No Take by [facility] (TYLENOL 630 -30 mouth. ity o f ORAL) 08:26: 00:00 [place] 40 :00 [facility] acetaminoph 2021- No Take by [facility] (TYLENOL 6-30 -30 mouth. ity o f ORAL) 08:26: 00:00 [place] 40 :00 [facility] Prenat Vit 0 Yes [id number] 1{packe Take 1 [facility] Comb.10-Iro 6-27 t} Packet by ity of n-FA-DHA 00:00: mouth [place] (VITAFOL-OB 00 daily. Medica l +DHA) Branch 65-1-250 mg combo pack Prenat Vit 0 Yes [id number] 1{packe Take 1 [facility] Comb.10-Iro 6-27 t} Packet by ity of n-FA-DHA 00:00: mouth [place] (VITAFOL-OB 00 daily. Medica l +DHA) Branch 65-1-250 mg combo pack Prenat Vit 2021-0 Yes [id number] 1{packe Take 1 [facility] Comb.10-Iro 6-27 t} Packet by ity of n-FA-DHA 00:00: mouth [place] (VITAFOL-OB 00 daily. Medica l +DHA) Branch 65-1-250 mg combo pack Prenat Vit 2021-0 Yes [id number] 1{packe Take 1 [facility] Comb.10-Iro 6-27 t} Packet by ity of n-FA-DHA 00:00: mouth [place] (VITAFOL-OB 00 daily. Medica l +DHA) Branch 65-1-250 mg combo pack Prenat Vit 2021-0 Yes [id number] 1{packe Take 1 [facility] Comb.10-Iro 6-27 t} Packet by ity of n-FA-DHA 00:00: mouth [place] (VITAFOL-OB 00 daily. Medica l +DHA) Branch 65-1-250 mg combo pack Prenat Vit 2022-0 Yes [id number] 1{packe Take 1 [facility] Comb.10-Iro 6-27 t} Packet by ity of n-FA-DHA 00:00: mouth [place] (VITAFOL-OB 00 daily. Medica l +DHA) Branch 65-1-250 mg combo pack Prenat Vit 2022-0 Yes [id number] 1{packe Take 1 [facility] Comb.10-Iro 6-27 t} Packet by ity of n-FA-DHA 00:00: mouth [place] (VITAFOL-OB 00 daily. Medica l +DHA) Branch 65-1-250 mg combo pack Prenat Vit 2022-0 Yes [id number] 1{packe Take 1 [facility] Comb.10-Iro 6-27 t} Packet by ity of n-FA-DHA 00:00: mouth [place] (VITAFOL-OB 00 daily. Medica l +DHA) Branch 65-1-250 mg combo pack Prenat Vit 2022-0 Yes [id number] 1{packe Take 1 [facility] Comb.10-Iro 6-27 t} Packet by ity of n-FA-DHA 00:00: mouth [place] (VITAFOL-OB 00 daily. Medica l +DHA) Branch 65-1-250 mg combo pack Prenat Vit 2022-0 Yes [id number] 1{packe Take 1 [facility] Comb.10-Iro 6-27 t} Packet by ity of n-FA-DHA 00:00: mouth [place] (VITAFOL-OB 00 daily. Medica l +DHA) Branch 65-1-250 mg combo pack Prenat Vit 2022-0 Yes [id number] 1{packe Take 1 [facility] Comb.10-Iro 6-27 t} Packet by ity of n-FA-DHA 00:00: mouth [place] (VITAFOL-OB 00 daily. [facility] +DHA) Branch 65-1-250 mg combo pack Prenat Vit 2022-0 Yes [id number] 1{packe Take 1 [facility] Comb.10-Iro 6-27 t} Packet by ity of n-FA-DHA 00:00: mouth [place] (VITAFOL-OB 00 daily. [facility] +DHA) Branch 65-1-250 mg combo pack Prenat Vit 2022-0 Yes [id number] 1{packe Take 1 [facility] Comb.10-Iro 6-27 t} Packet by ity of n-FA-DHA 00:00: mouth [place] (VITAFOL-OB 00 daily. Med[facility] +DHA) Branch 65-1-250 mg combo pack Prenat Vit 2022-0 Yes [id number] 1{packe Take 1 [facility] Comb.10-Iro 6-27 t} Packet by ity of n-FA-DHA 00:00: mouth [place] (VITAFOL-OB 00 daily. Med[facility] +DHA) Branch 65-1-250 mg combo pack Prenat Vit 2022-0 Yes [id number] 1{packe Take 1 [facility] Comb.10-Iro 6-27 t} Packet by ity of n-FA-DHA 00:00: mouth [place] (VITAFOL-OB 00 daily. Med[facility] +DHA) Branch 65-1-250 mg combo pack Prenat Vit 2022-0 Yes [id number] 1{packe Take 1 [facility] Comb.10-Iro 6-27 t} Packet by ity of n-FA-DHA 00:00: mouth [place] (VITAFOL-OB 00 daily. Med[facility] +DHA) Branch 65-1-250 mg combo pack Prenat Vit 2022-0 Yes [id number] 1{packe Take 1 [facility] Comb.10-Iro 6-27 t} Packet by ity of n-FA-DHA 00:00: mouth [place] (VITAFOL-OB 00 daily. [facility] +DHA) Branch 65-1-250 mg combo pack Prenat Vit 2022-0 Yes [id number] 1{packe Take 1 [facility] Comb.10-Iro 6-27 t} Packet by ity of n-FA-DHA 00:00: mouth [place] (VITAFOL-OB 00 daily. Med[facility] +DHA) Branch 65-1-250 mg combo pack Prenat Vit 2022-0 Yes [id number] 1{packe Take 1 [facility] Comb.10-Iro 6-27 t} Packet by ity of n-FA-DHA 00:00: mouth [place] (VITAFOL-OB 00 daily. Med[facility] +DHA) Branch 65-1-250 mg combo pack Prenat Vit 2022-0 Yes [id number] 1{packe Take 1 [facility] Comb.10-Iro 6-27 t} Packet by ity of n-FA-DHA 00:00: mouth [place] (VITAFOL-OB 00 daily. Med[facility] +DHA) Branch 65-1-250 mg combo pack Prenat Vit 2022-0 Yes [id number] 1{packe Take 1 [facility] Comb.10-Iro 6-27 t} Packet by ity of n-FA-DHA 00:00: mouth [place] (VITAFOL-OB 00 daily. [facility] +DHA) Branch 65-1-250 mg combo pack Prenat Vit 2022-0 Yes [id number] 1{packe Take 1 [facility] Comb.10-Iro 6-27 t} Packet by [facility]y of n-FA-DHA 00:00: mouth [place] (VITAFOL-OB 00 daily. Med[facility] +DHA) Branch 65-1-250 mg combo pack Prenat Vit 2022-0 Yes [id number] 1{packe Take 1 [facility] Comb.10-Iro 6-27 t} Packet by [facility]y of n-FA-DHA 00:00: mouth [place] (VITAFOL-OB 00 daily. Med[facility] +DHA) Branch 65-1-250 mg combo pack Prenat Vit 2022-0 Yes [id number] 1{packe Take 1 [facility] Comb.10-Iro 6-27 t} Packet by [facility]y of n-FA-DHA 00:00: mouth [place] (VITAFOL-OB 00 daily. Med[facility] l +DHA) Branch 65-1-250 mg combo pack Prenat Vit 2022-0 Yes [id number] 1{packe Take 1 [facility] Comb.10-Iro 6-27 t} Packet by ity of n-FA-DHA 00:00: mouth [place] (VITAFOL-OB 00 daily. Med[facility] l +DHA) Branch 65-1-250 mg combo pack Prenat Vit 2022-0 Yes [id number] 1{packe Take 1 [facility] Comb.10-Iro 6-27 t} Packet by ity of n-FA-DHA 00:00: mouth [place] (VITAFOL-OB 00 daily. Med[facility] l +DHA) Branch 65-1-250 mg combo pack Prenat Vit 2022-0 Yes [id number] 1{packe Take 1 [facility] Comb.10-Iro 6-27 t} Packet by ity of n-FA-DHA 00:00: mouth [place] (VITAFOL-OB 00 daily. Med[facility] l +DHA) Branch 65-1-250 mg combo pack Prenat Vit 2022-0 Yes [id number] 1{packe Take 1 [facility] Comb.10-Iro 6-27 t} Packet by ity of n-FA-DHA 00:00: mouth [place] (VITAFOL-OB 00 daily. Med[facility] l +DHA) Branch 65-1-250 mg combo pack Prenat Vit 2022-0 Yes [id number] 1{packe Take 1 [facility] Comb.10-Iro 6-27 t} Packet by ity of n-FA-DHA 00:00: mouth [place] (VITAFOL-OB 00 daily. Med[facility] l +DHA) Branch 65-1-250 mg combo pack Prenat Vit 2022-0 Yes [id number] 1{packe Take 1 [facility] Comb.10-Iro 6-27 t} Packet by ity of n-FA-DHA 00:00: mouth [place] (VITAFOL-OB 00 daily. Med[facility] l +DHA) Branch 65-1-250 mg combo pack Prenat Vit 2022-0 Yes [id number] 1{packe Take 1 [facility] Comb.10-Iro 6-27 t} Packet by ity of n-FA-DHA 00:00: mouth [place] (VITAFOL-OB 00 daily. Med[facility] +DHA) Branch 65-1-250 mg combo pack Prenat Vit 2022-0 Yes [id number] 1{packe Take 1 [facility] Comb.10-Iro 6-27 t} Packet by ity of n-FA-DHA 00:00: mouth [place] (VITAFOL-OB 00 daily. Med[facility] +DHA) Branch 65-1-250 mg combo pack Prenat Vit 2022-0 Yes [id number] 1{packe Take 1 [facility] Comb.10-Iro 6-27 t} Packet by ity of n-FA-DHA 00:00: mouth [place] (VITAFOL-OB 00 daily. Med[facility] +DHA) Branch 65-1-250 mg combo pack Prenat Vit 2022-0 Yes [id number] 1{packe Take 1 [facility] Comb.10-Iro 6-27 t} Packet by ity of n-FA-DHA 00:00: mouth [place] (VITAFOL-OB 00 daily. Med[facility] l +DHA) Branch 65-1-250 mg combo pack Prenat Vit 2022-0 Yes [id number] 1{packe Take 1 [facility] Comb.10-Iro 6-27 t} Packet by ity of n-FA-DHA 00:00: mouth [place] (VITAFOL-OB 00 daily. Med[facility] +DHA) Branch 65-1-250 mg combo pack Prenat Vit 2022-0 Yes [id number] 1{packe Take 1 [facility] Comb.10-Iro 6-27 t} Packet by ity of n-FA-DHA 00:00: mouth [place] (VITAFOL-OB 00 daily. Med[facility] +DHA) Branch 65-1-250 mg combo pack Prenat Vit 2022-0 Yes [id number] 1{packe Take 1 [facility] Comb.10-Iro 6-27 t} Packet by [facility]y of n-FA-DHA 00:00: mouth [place] (VITAFOL-OB 00 daily. Med[facility] +DHA) Branch 65-1-250 mg combo pack Prenat Vit 2022-0 Yes [id number] 1{packe Take 1 [facility] Comb.10-Iro 6-27 t} Packet by ity of n-FA-DHA 00:00: mouth [place] (VITAFOL-OB 00 daily. Med[facility] l +DHA) Branch 65-1-250 mg combo pack Prenat Vit 2022-0 Yes [id number] 1{packe Take 1 [facility] Comb.10-Iro 6-27 t} Packet by ity of n-FA-DHA 00:00: mouth [place] (VITAFOL-OB 00 daily. Med[facility] l +DHA) Branch 65-1-250 mg combo pack Prenat Vit 2022-0 Yes [id number] 1{packe Take 1 [facility] Comb.10-Iro 6-27 t} Packet by ity of n-FA-DHA 00:00: mouth [place] (VITAFOL-OB 00 daily. Med[facility] l +DHA) Branch 65-1-250 mg combo pack Prenat Vit 2022-0 Yes [id number] 1{packe Take 1 [facility] Comb.10-Iro 6-27 t} Packet by ity of n-FA-DHA 00:00: mouth [place] (VITAFOL-OB 00 daily. Med[facility] l +DHA) Branch 65-1-250 mg combo pack Prenat Vit 2022-0 Yes [id number] 1{packe Take 1 [facility] Comb.10-Iro 6-27 t} Packet by ity of n-FA-DHA 00:00: mouth [place] (VITAFOL-OB 00 daily. Med[facility] l +DHA) Branch 65-1-250 mg combo pack Prenat Vit 2022-0 Yes [id number] 1{packe Take 1 [facility] Comb.10-Iro 6-27 t} Packet by ity of n-FA-DHA 00:00: mouth [place] (VITAFOL-OB 00 daily. Med[facility] l +DHA) Branch 65-1-250 mg combo pack Prenat Vit 2022-0 Yes [id number] 1{packe Take 1 [facility] Comb.10-Iro 6-27 t} Packet by ity of n-FA-DHA 00:00: mouth [place] (VITAFOL-OB 00 daily. Med[facility] l +DHA) Branch 65-1-250 mg combo pack Prenat Vit 2022-0 Yes [id number] 1{packe Take 1 [facility] Comb.10-Iro 6-27 t} Packet by [facility]y of n-FA-DHA 00:00: mouth [place] (VITAFOL-OB 00 daily. Med[facility] l +DHA) Branch 65-1-250 mg combo pack Prenat Vit 2022-0 Yes [id number] 1{packe Take 1 [facility] Comb.10-Iro 6-27 t} Packet by ity of n-FA-DHA 00:00: mouth [place] (VITAFOL-OB 00 daily. Med[facility] l +DHA) Branch 65-1-250 mg combo pack Prenat Vit 2022-0 Yes [id number] 1{packe Take 1 [facility] Comb.10-Iro 6-27 t} Packet by ity of n-FA-DHA 00:00: mouth [place] (VITAFOL-OB 00 daily. Med[facility] l +DHA) Branch 65-1-250 mg combo pack Prenat Vit 2022-0 Yes [id number] 1{packe Take 1 [facility] Comb.10-Iro 6-27 t} Packet by ity of n-FA-DHA 00:00: mouth [place] (VITAFOL-OB 00 daily. Med[facility] l +DHA) Branch 65-1-250 mg combo pack Prenat Vit 2022-0 Yes [id number] 1{packe Take 1 [facility] Comb.10-Iro 6-27 t} Packet by ity of n-FA-DHA 00:00: mouth [place] (VITAFOL-OB 00 daily. Med[facility] l +DHA) Branch 65-1-250 mg combo pack Prenat Vit 2022-0 Yes [id number] 1{packe Take 1 [facility] Comb.10-Iro 6-27 t} Packet by ity of n-FA-DHA 00:00: mouth [place] (VITAFOL-OB 00 daily. Medica l +DHA) Branch 65-1-250 mg combo pack Prenat Vit 2022-0 Yes [id number] 1{packe Take 1 [facility] Comb.10-Iro 6-27 t} Packet by ity of n-FA-DHA 00:00: mouth [place] (VITAFOL-OB 00 daily. Med[facility] l +DHA) Branch 65-1-250 mg combo pack Prenat Vit 2022-0 Yes [id number] 1{packe Take 1 [facility] Comb.10-Iro 6-27 t} Packet by ity of n-FA-DHA 00:00: mouth [place] (VITAFOL-OB 00 daily. Medica l +DHA) Branch 65-1-250 mg combo pack Prenat Vit 2022-0 Yes [id number] 1{packe Take 1 [facility] Comb.10-Iro 6-27 t} Packet by ity of n-FA-DHA 00:00: mouth [place] (VITAFOL-OB 00 daily. Med[facility] l +DHA) Branch 65-1-250 mg combo pack Prenat Vit 2022-0 Yes [id number] 1{packe Take 1 [facility] Comb.10-Iro 6-27 t} Packet by ity of n-FA-DHA 00:00: mouth [place] (VITAFOL-OB 00 daily. Med[facility] l +DHA) Branch 65-1-250 mg combo pack Prenat Vit 2022-0 Yes [id number] 1{packe Take 1 [facility] Comb.10-Iro 6-27 t} Packet by ity of n-FA-DHA 00:00: mouth [place] (VITAFOL-OB 00 daily. Medica l +DHA) Branch 65-1-250 mg combo pack Prenat Vit 2022-0 Yes [id number] 1{packe Take 1 [facility] Comb.10-Iro 6-27 t} Packet by ity of n-FA-DHA 00:00: mouth [place] (VITAFOL-OB 00 daily. Medica l +DHA) Branch 65-1-250 mg combo pack Prenat Vit 2022-0 Yes [id number] 1{packe Take 1 [facility] Comb.10-Iro 6-27 t} Packet by ity of n-FA-DHA 00:00: mouth [place] (VITAFOL-OB 00 daily. Medica l +DHA) Branch 65-1-250 mg combo pack Prenat Vit 2022-0 Yes [id number] 1{packe Take 1 [facility] Comb.10-Iro 6-27 t} Packet by ity of n-FA-DHA 00:00: mouth [place] (VITAFOL-OB 00 daily. Medica l +DHA) Branch 65-1-250 mg combo pack Prenat Vit 2022-0 Yes [id number] 1{packe Take 1 [facility] Comb.10-Iro 6-27 t} Packet by ity of n-FA-DHA 00:00: mouth [place] (VITAFOL-OB 00 daily. Med[facility] l +DHA) Branch 65-1-250 mg combo pack Prenat Vit 2022-0 Yes [id number] 1{packe Take 1 [facility] Comb.10-Iro 6-27 t} Packet by ity of n-FA-DHA 00:00: mouth [place] (VITAFOL-OB 00 daily. Medica l +DHA) Branch 65-1-250 mg combo pack Prenat Vit 2022-0 Yes [id number] 1{packe Take 1 [facility] Comb.10-Iro 6-27 t} Packet by ity of n-FA-DHA 00:00: mouth [place] (VITAFOL-OB 00 daily. Medica l +DHA) Branch 65-1-250 mg combo pack Prenat Vit 2022-0 Yes [id number] 1{packe Take 1 [facility] Comb.10-Iro 6-27 t} Packet by ity of n-FA-DHA 00:00: mouth [place] (VITAFOL-OB 00 daily. Medica l +DHA) Branch 65-1-250 mg combo pack Prenat Vit 2022-0 Yes [id number] 1{packe Take 1 [facility] Comb.10-Iro 6-27 t} Packet by ity of n-FA-DHA 00:00: mouth [place] (VITAFOL-OB 00 daily. Medica l +DHA) Branch 65-1-250 mg combo pack Prenat Vit 2022-0 Yes [id number] 1{packe Take 1 [facility] Comb.10-Iro 6-27 t} Packet by ity of n-FA-DHA 00:00: mouth [place] (VITAFOL-OB 00 daily. Med[facility] l +DHA) Branch 65-1-250 mg combo pack Prenat Vit 2022-0 Yes [id number] 1{packe Take 1 [facility] Comb.10-Iro 6-27 t} Packet by ity of n-FA-DHA 00:00: mouth [place] (VITAFOL-OB 00 daily. Medica l +DHA) Branch 65-1-250 mg combo pack Prenat Vit 2022-0 Yes [id number] 1{packe Take 1 [facility] Comb.10-Iro 6-27 t} Packet by ity of n-FA-DHA 00:00: mouth [place] (VITAFOL-OB 00 daily. Medica l +DHA) Branch 65-1-250 mg combo pack Prenat Vit 2022-0 Yes [id number] 1{packe Take 1 [facility] Comb.10-Iro 6-27 t} Packet by ity of n-FA-DHA 00:00: mouth [place] (VITAFOL-OB 00 daily. Medica l +DHA) Branch 65-1-250 mg combo pack Prenat Vit 2022-0 Yes [id number] 1{packe Take 1 [facility] Comb.10-Iro 6-27 t} Packet by ity of n-FA-DHA 00:00: mouth [place] (VITAFOL-OB 00 daily. Medica l +DHA) Branch 65-1-250 mg combo pack Prenat Vit 2022-0 Yes [id number] 1{packe Take 1 [facility] Comb.10-Iro 6-27 t} Packet by ity of n-FA-DHA 00:00: mouth [place] (VITAFOL-OB 00 daily. Medica l +DHA) Branch 65-1-250 mg combo pack Prenat Vit 2022-0 Yes [id number] 1{packe Take 1 [facility] Comb.10-Iro 6-27 t} Packet by ity of n-FA-DHA 00:00: mouth [place] (VITAFOL-OB 00 daily. Medica l +DHA) Branch 65-1-250 mg combo pack Prenat Vit 2022-0 Yes [id number] 1{packe Take 1 [facility] Comb.10-Iro 6-27 t} Packet by ity of n-FA-DHA 00:00: mouth [place] (VITAFOL-OB 00 daily. Medica l +DHA) Branch 65-1-250 mg combo pack Prenat Vit 2022-0 Yes [id number] 1{packe Take 1 [facility] Comb.10-Iro 6-27 t} Packet by ity of n-FA-DHA 00:00: mouth [place] (VITAFOL-OB 00 daily. Medica l +DHA) Branch 65-1-250 mg combo pack Prenat Vit 2022-0 Yes [id number] 1{packe Take 1 [facility] Comb.10-Iro 6-27 t} Packet by ity of n-FA-DHA 00:00: mouth [place] (VITAFOL-OB 00 daily. Medica l +DHA) Branch 65-1-250 mg combo pack Prenat Vit 2022-0 Yes [id number] 1{packe Take 1 [facility] Comb.10-Iro 6-27 t} Packet by ity of n-FA-DHA 00:00: mouth [place] (VITAFOL-OB 00 daily. Medica l +DHA) Branch 65-1-250 mg combo pack Prenat Vit 2022-0 Yes [id number] 1{packe Take 1 [facility] Comb.10-Iro 6-27 t} Packet by ity of n-FA-DHA 00:00: mouth [place] (VITAFOL-OB 00 daily. Medica l +DHA) Branch 65-1-250 mg combo pack Prenat Vit 2022-0 Yes [id number] 1{packe Take 1 [facility] Comb.10-Iro 6-27 t} Packet by ity of n-FA-DHA 00:00: mouth [place] (VITAFOL-OB 00 daily. Medica l +DHA) Branch 65-1-250 mg combo pack Prenat Vit 2022-0 Yes [id number] 1{packe Take 1 [facility] Comb.10-Iro 6-27 t} Packet by ity of n-FA-DHA 00:00: mouth [place] (VITAFOL-OB 00 daily. Medica l +DHA) Branch 65-1-250 mg combo pack Prenat Vit 2022-0 Yes [id number] 1{packe Take 1 [facility] Comb.10-Iro 6-27 t} Packet by ity of n-FA-DHA 00:00: mouth [place] (VITAFOL-OB 00 daily. Medica l +DHA) Branch 65-1-250 mg combo pack Prenat Vit 2022-0 Yes [id number] 1{packe Take 1 [facility] Comb.10-Iro 6-27 t} Packet by ity of n-FA-DHA 00:00: mouth [place] (VITAFOL-OB 00 daily. Medica l +DHA) Branch 65-1-250 mg combo pack Prenat Vit 2022-0 Yes [id number] 1{packe Take 1 [facility] Comb.10-Iro 6-27 t} Packet by ity of n-FA-DHA 00:00: mouth [place] (VITAFOL-OB 00 daily. Medica l +DHA) Branch 65-1-250 mg combo pack Prenat Vit 2022-0 Yes [id number] 1{packe Take 1 [facility] Comb.10-Iro 6-27 t} Packet by ity of n-FA-DHA 00:00: mouth [place] (VITAFOL-OB 00 daily. Medica l +DHA) Branch 65-1-250 mg combo pack Prenat Vit 2022-0 Yes [id number] 1{packe Take 1 [facility] Comb.10-Iro 6-27 t} Packet by ity of n-FA-DHA 00:00: mouth [place] (VITAFOL-OB 00 daily. Medica l +DHA) Branch 65-1-250 mg combo pack Prenat Vit 2022-0 Yes [id number] 1{packe Take 1 [facility] Comb.10-Iro 6-27 t} Packet by ity of n-FA-DHA 00:00: mouth [place] (VITAFOL-OB 00 daily. Medica l +DHA) Branch 65-1-250 mg combo pack Prenat Vit 2022-0 Yes [id number] 1{packe Take 1 [facility] Comb.10-Iro 6-27 t} Packet by ity of n-FA-DHA 00:00: mouth [place] (VITAFOL-OB 00 daily. Medica l +DHA) Branch 65-1-250 mg combo pack Prenat Vit 2022-0 Yes [id number] 1{packe Take 1 [facility] Comb.10-Iro 6-27 t} Packet by ity of n-FA-DHA 00:00: mouth [place] (VITAFOL-OB 00 daily. Medica l +DHA) Branch 65-1-250 mg combo pack Prenat Vit 2022-0 Yes [id number] 1{packe Take 1 [facility] Comb.10-Iro 6-27 t} Packet by ity of n-FA-DHA 00:00: mouth [place] (VITAFOL-OB 00 daily. Medica l +DHA) Branch 65-1-250 mg combo pack Prenat Vit 2022-0 Yes [id number] 1{packe Take 1 [facility] Comb.10-Iro 6-27 t} Packet by ity of n-FA-DHA 00:00: mouth [place] (VITAFOL-OB 00 daily. Medica l +DHA) Branch 65-1-250 mg combo pack Prenat Vit 2022-0 Yes [id number] 1{packe Take 1 [facility] Comb.10-Iro 6-27 t} Packet by ity of n-FA-DHA 00:00: mouth [place] (VITAFOL-OB 00 daily. Medica l +DHA) Branch 65-1-250 mg combo pack Prenat Vit 2022-0 Yes [id number] 1{packe Take 1 [facility] Comb.10-Iro 6-27 t} Packet by ity of n-FA-DHA 00:00: mouth [place] (VITAFOL-OB 00 daily. Medica l +DHA) Branch 65-1-250 mg combo pack Prenat Vit 2022-0 Yes [id number] 1{packe Take 1 [facility] Comb.10-Iro 6-27 t} Packet by ity of n-FA-DHA 00:00: mouth [place] (VITAFOL-OB 00 daily. Medica l +DHA) Branch 65-1-250 mg combo pack Prenat Vit 2022-0 Yes [id number] 1{packe Take 1 [facility] Comb.10-Iro 6-27 t} Packet by ity of n-FA-DHA 00:00: mouth [place] (VITAFOL-OB 00 daily. Medica l +DHA) Branch 65-1-250 mg combo pack Prenat Vit 2022-0 Yes [id number] 1{packe Take 1 [facility] Comb.10-Iro 6-27 t} Packet by ity of n-FA-DHA 00:00: mouth [place] (VITAFOL-OB 00 daily. Medica l +DHA) Branch 65-1-250 mg combo pack Prenat Vit 2022-0 Yes [id number] 1{packe Take 1 [facility] Comb.10-Iro 6-27 t} Packet by ity of n-FA-DHA 00:00: mouth [place] (VITAFOL-OB 00 daily. Medica l +DHA) Branch 65-1-250 mg combo pack Prenat Vit 2022-0 Yes [id number] 1{packe Take 1 [facility] Comb.10-Iro 6-27 t} Packet by ity of n-FA-DHA 00:00: mouth [place] (VITAFOL-OB 00 daily. Medica l +DHA) Branch 65-1-250 mg combo pack Prenat Vit 2022-0 Yes [id number] 1{packe Take 1 [facility] Comb.10-Iro 6-27 t} Packet by ity of n-FA-DHA 00:00: mouth [place] (VITAFOL-OB 00 daily. Medica l +DHA) Branch 65-1-250 mg combo pack Prenat Vit 2022-0 Yes [id number] 1{packe Take 1 [facility] Comb.10-Iro 6-27 t} Packet by ity of n-FA-DHA 00:00: mouth [place] (VITAFOL-OB 00 daily. Medica l +DHA) Branch 65-1-250 mg combo pack Prenat Vit 2022-0 Yes [id number] 1{packe Take 1 [facility] Comb.10-Iro 6-27 t} Packet by ity of n-FA-DHA 00:00: mouth [place] (VITAFOL-OB 00 daily. Medica l +DHA) Branch 65-1-250 mg combo pack Prenat Vit 2022-0 Yes [id number] 1{packe Take 1 [facility] Comb.10-Iro 6-27 t} Packet by ity of n-FA-DHA 00:00: mouth [place] (VITAFOL-OB 00 daily. Medica l +DHA) Branch 65-1-250 mg combo pack Prenat Vit 2022-0 Yes [id number] 1{packe Take 1 [facility] Comb.10-Iro 6-27 t} Packet by ity of n-FA-DHA 00:00: mouth [place] (VITAFOL-OB 00 daily. Medica l +DHA) Branch 65-1-250 mg combo pack Prenat Vit 2022-0 Yes [id number] 1{packe Take 1 [facility] Comb.10-Iro 6-27 t} Packet by ity of n-FA-DHA 00:00: mouth [place] (VITAFOL-OB 00 daily. Medica l +DHA) Branch 65-1-250 mg combo pack Prenat Vit 2022-0 Yes [id number] 1{packe Take 1 [facility] Comb.10-Iro 6-27 t} Packet by ity of n-FA-DHA 00:00: mouth [place] (VITAFOL-OB 00 daily. Medica l +DHA) Branch 65-1-250 mg combo pack Prenat Vit 2022-0 Yes [id number] 1{packe Take 1 [facility] Comb.10-Iro 6-27 t} Packet by ity of n-FA-DHA 00:00: mouth [place] (VITAFOL-OB 00 daily. Medica l +DHA) Branch 65-1-250 mg combo pack Prenat Vit 2022-0 Yes [id number] 1{packe Take 1 [facility] Comb.10-Iro 6-27 t} Packet by ity of n-FA-DHA 00:00: mouth [place] (VITAFOL-OB 00 daily. Medica l +DHA) Branch 65-1-250 mg combo pack Prenat Vit 2021-0 Yes [id number] 1{packe Take 1 [facility] Comb.10-Iro 627 t} Packet by ity of n-FA-DHA 00:00: mouth [place] (VITAFOL-OB 00 daily. Medica l +DHA) Branch 65-1-250 mg combo pack Prenat Vit 0 Yes [id number] 1{packe Take 1 [facility] Comb.10-Iro 627 t} Packet by ity of n-FA-DHA 00:00: mouth [place] (VITAFOL-OB 00 daily. Medica l +DHA) Branch 65-1-250 mg combo pack Prenat Vit 2021-0 2022- No [id number] 1{packe Take 1 [facility] Comb.10-Iro 627 02-10 t} Packet by it y of n-FA-DHA 00:00: 00:00 mouth [place] (VITAFOL-OB 00 :00 daily. Medica l +DHA) Branch 65-1-250 mg combo pack Prenat Vit 0 2022- No [id number] 1{packe Take 1 [facility] Comb.10-Iro 627 02-10 t} Packet by it y of n-FA-DHA 00:00: 00:00 mouth [place] (VITAFOL-OB 00 :00 daily. Medica l +DHA) Branch 65-1-250 mg combo pack Prenat Vit 2021-2022- No [id number] 1{packe Take 1 [facility] Comb.10-Iro 627 02-10 t} Packet by it y of n-FA-DHA 00:00: 00:00 mouth [place] (VITAFOL-OB 00 :00 daily. Medica l +DHA) Branch 65-1-250 mg combo pack bromphenira 2021- No [id number] 5mL Take 5 mL [facility] mine-pseudo 10-28-30 by mouth 4 i ty of ephedrine-D 00:00: 00:00 (four) [place] as M (BROMFED 00 :00 times Medical DM) 2-30-10 daily as Bran ch mg/5 mL needed for syrup Congestion /Allergies . bromphenira 2021- No [id number] 5mL Take 5 mL [facility] mine-pseudo 3 06-30 by mouth 4 i ty of ephedrine-D 00:00: 00:00 (four) [place] [facility] (BROMFED 00 :00 times Medical DM) 2-30-10 daily as Bran ch mg/5 mL needed for syrup Congestion /Allergies . albuterol 2021- No [id number] 2{puff} Inhale 2 [facility] 90 2-26 06-30 Puffs ity of mcg/actuati 00:00: 00:00 every 6 [place] on inhaler 00 :00 (six) Medical hours as Branch needed for Wheezing or Shortness of Breath. cetirizine 2021- No [id number] 10mg Take 1 [facility] 10 mg 2- 06-30 tablet by ity of tablet 00:00: 00:00 mouth [place] 00 :00 daily. Medical Branch fluticasone 2021- No [id number] 2{spray Use 2 [facility] propionate 2- 06-30 } Sprays in ity of 50 00:00: 00:00 each [place] mcg/actuati 00 :00 nostril Medic al on nasal daily. Branch spray albuterol 2021- No [id number] 2{puff} Inhale 2 [facility] 90 2-26 06-30 Puffs ity of mcg/actuati 00:00: 00:00 every 6 [place] on inhaler 00 :00 (six) Medical hours as Branch needed for Wheezing or Shortness of Breath. cetirizine 2021- No [id number] 10mg Take 1 [facility] 10 mg 2-26 06-30 tablet by ity of tablet 00:00: 00:00 mouth [place] 00 :00 daily. Medical Branch fluticasone 2021- No [id number] 2{spray Use 2 [facility] propionate 2-26 06-30 } Sprays in ity of 50 00:00: 00:00 each [place] mcg/actuati 00 :00 nostril Medic al on nasal daily. Branch spray fluticasone 2020-08- No [id number] 1{puff} Inhale 1 [facility] propion-ina 1-22 06-30 Puff every i ty of meteroL 00:00: 00:00 12 [place] (ADVAIR 00 :00 (twelve) Medical DISKUS) hours. Branch 250-50 mcg/dose inhalation disk fluticasone 2020-08- No [id number] 1{puff} Inhale 1 [facility] propion-ina 1-22 06-30 Puff every i ty of meteroL 00:00: 00:00 12 [place] (ADVAIR 00 :00 (twelve) Medical DISKUS) hours. Branch 250-50 mcg/dose inhalation disk albuterol 2020-08- No [id number] 2{puff} Inhale 2 [facility] 90 0-06 06-30 Puffs ity of mcg/actuati 00:00: 00:00 every 6 [place] on inhaler 00 :00 (six) Medical hours as Branch needed for Wheezing or Shortness of Breath. cetirizine 2020-08- No [id number] 10mg Take 1 [facility] (ZYRTEC) 10 0-06 06-30 tablet by it y of mg tablet 00:00: 00:00 mouth [place] 00 :00 daily. Medical Branch fluticasone 2020-08- No [id number] 1{spray Use 1 [facility] propionate 0-06 06-30 } Olar in ity of 50 00:00: 00:00 each [place] mcg/actuati 00 :00 nostril Medic al on nasal daily. Branch spray azelastine 2020-08- No [id number] 1{spray Use 1 [facility] 137 mcg 0-06 06-30 } [place] in ity of (0.1 %) 00:00: 00:00 each [place] nasal spray 00 :00 nostril 2 Med ical (two) Branch times daily. Use in each nostril as directed albuterol 2020-08- No [id number] 2{puff} Inhale 2 [facility] 90 0-06 06-30 Puffs ity of mcg/actuati 00:00: 00:00 every 6 [place] inhaler 00 :00 (six) Medical hours as Branch needed for Wheezing or Shortness of Breath. cetirizine 2020-08- No [id number] 10mg Take 1 [facility] (ZYRTEC) 10 0-06 06-30 tablet by it y of mg tablet 00:00: 00:00 mouth [place] 00 :00 daily. Medical Branch fluticasone 2020-08- No [id number] 1{spray Use 1 [facility] propionate 030 } Olar in ity of 50 00:00: 00:00 each [place] mcg/actuati 00 :00 nostril Medic al on nasal daily. Branch spray azelastine 2020-08- No [id number] 1{spray Use 1 [facility] 137 mcg 030 } [place] in ity of (0.1 %) 00:00: 00:00 each [place] nasal spray 00 :00 nostril 2 Med ical (two) Branch times daily. Use in each nostril as directed Immunizations Ordered Filled Immunization Date Status Comments [facility] e Immunization Name Name Influenza Virus [...] [facility] of Vaccine [facility], 00:00:00 [place] [facility] Preserv and ABX Branch Free 6 MO-64 YRS Influenza Virus 2022-05-02 Completed [facility]it [facility] of Vaccine [facility], 00:00:00 [place] [facility] Preserv and ABX Branch Free 6 MO-64 YRS Influenza Virus 2022-05-02 Completed Universit y of Vaccine [facility], 00:00:00 [place] [facility] Preserv and ABX Branch Free 6 MO-64 YRS TDAP 2021-01-29 Completed University of 00:00:00 [facility] TDAP 2021-01-29 Completed University of 00:00:00 [facility] TDAP 2021-01-29 Completed University of 00:00:00 [facility] TDAP 2021-01-29 Completed University of 00:00:00 [facility] TDAP 2021-01-29 Completed University of 00:00:00 [facility] TDAP 2021-01-29 Completed University of 00:00:00 [facility] TDAP 2021-01-29 Completed University of 00:00:00 [facility] TDAP 2021-01-29 Completed University of 00:00:00 [facility] TDAP 2021-01-29 Completed University of 00:00:00 [facility] TDAP 2021-01-29 Completed University of 00:00:00 [facility] TDAP 2021-01-29 Completed University of 00:00:00 [facility] TDAP 2021-01-29 Completed University of 00:00:00 [facility] TDAP 2021-01-29 Completed University of 00:00:00 [facility] TDAP 2021-01-29 Completed University of 00:00:00 [facility] TDAP 2021-01-29 Completed University of 00:00:00 [facility] TDAP 2021-01-29 Completed University of 00:00:00 [facility] TDAP 2021-01-29 Completed University of 00:00:00 [facility] TDAP 2021-01-29 Completed [facility] 00:00:00 [facility] TDAP 2021-01-29 Completed [facility] 00:00:00 [facility] TDAP 2021-01-29 Completed [facility] 00:00:00 [facility] TDAP 2021-01-29 Completed [facility] 00[facility]00:00 [facility] TDAP 2021-01-29 Completed [facility] 00:00:00 [facility] TDAP 2021-01-29 Completed [facility] 00[facility]00:00 [facility] TDAP 2021-01-29 Completed [facility] 00[facility]00:00 [facility] TDAP 2021-01-29 Completed [facility] 00:00:00 [facility] TDAP 2021-01-29 Completed [facility] 00:00:00 [facility] TDAP 2021-01-29 Completed [facility] 00:00:00 [facility] TDAP 2021-01-29 Completed [facility] 00:00:00 [facility] TDAP 2021-01-29 Completed [facility] 00:00:00 [facility] TDAP 2021-01-29 Completed [facility] 00:00:00 [facility] TDAP 2021-01-29 Completed [facility] 00[facility]00:00 [facility] TDAP 2021-01-29 Completed [facility] 00[facility]00:00 [facility] TDAP 2021-01-29 Completed [facility] 00:00:00 [facility] TDAP 2021-01-29 Completed [facility] 00[facility]00:00 [facility] TDAP 2021-01-29 Completed [facility] 00[facility]00:00 [facility] TDAP 2021-01-29 Completed [facility] 00:00:00 [facility] TDAP 2021-01-29 Completed [facility] 00[facility]00:00 [facility] TDAP 2021-01-29 Completed [facility] 00[facility]00:00 [facility] TDAP 2021-01-29 Completed [facility] 00:00:00 [facility] TDAP 2021-01-29 Completed [facility] 00[facility]00:00 [facility] TDAP 2021-01-29 Completed [facility] 00:00:00 [facility] TDAP 2021-01-29 Completed [facility] 00:00:00 [facility] TDAP 2021-01-29 Completed [facility] 00:00:00 [facility] TDAP 2021-01-29 Completed [facility] 00:00:00 [facility] TDAP 2021-01-29 Completed [facility] 00:00:00 [facility] TDAP 2021-01-29 Completed [facility] 00:00:00 [facility] TDAP 2021-01-29 Completed [facility] 00:00:00 [facility] TDAP 2021-01-29 Completed [facility] 00:00:00 [facility] TDAP 2021-01-29 Completed [facility] 00:00:00 [facility] TDAP 2021-01-29 Completed [facility] 00:00:00 [facility] TDAP 2021-01-29 Completed [facility] 00[facility]00:00 [facility] TDAP 2021-01-29 Completed [facility] 00[facility]00:00 [facility] TDAP 2021-01-29 Completed [facility] 00:00:00 [facility] TDAP 2021-01-29 Completed [facility] 00[facility]00:00 [facility] TDAP 2021-01-29 Completed [facility] 00[facility]00:00 [facility] TDAP 2021-01-29 Completed [facility] 00[facility]00:00 [facility] TDAP 2021-01-29 Completed [facility] 00[facility]00:00 [facility] TDAP 2021-01-29 Completed [facility] 00:00:00 [facility] TDAP 2021-01-29 Completed [facility] 00:00:00 [facility] TDAP 2021-01-29 Completed [facility] 00[facility]00:00 [facility] TDAP 2021-01-29 Completed [facility] 00:00:00 [facility] TDAP 2021-01-29 Completed [facility] 00:00:00 [facility] TDAP 2021-01-29 Completed [facility] 00:00:00 [facility] TDAP 2021-01-29 Completed [facility] 00:00:00 [facility] TDAP 2021-01-29 Completed [facility] 00:00:00 [facility] TDAP 2021-01-29 Completed [facility] 00:00:00 [facility] TDAP 2021-01-29 Completed [facility] 00:00:00 [facility] TDAP 2021-01-29 Completed [facility] 00:00:00 [facility] TDAP 2021-01-29 Completed [facility] 00:00:00 [facility] TDAP 2021-01-29 Completed [facility] 00:00:00 [facility] TDAP 2021-01-29 Completed [facility] 00:00:00 [facility] TDAP 2021-01-29 Completed [facility] 00:00:00 [facility] TDAP 2021-01-29 Completed [facility] 00:00:00 [facility] TDAP 2021-01-29 Completed [facility] 00:00:00 [facility] TDAP 2021-01-29 Completed [facility] 00:00:00 [facility] TDAP 2021-01-29 Completed [facility] 00:00:00 [facility] TDAP 2021-01-29 Completed [facility] 00:00:00 [facility] TDAP 2021-01-29 Completed [facility] 00:00:00 [facility] TDAP 2021-01-29 Completed [facility] 00:00:00 [facility] TDAP 2021-01-29 Completed [facility] 00[facility]00:00 [facility] TDAP 2021-01-29 Completed [facility] 00:00:00 [facility] TDAP 2021-01-29 Completed [facility] 00:00:00 [facility] TDAP 2021-01-29 Completed [facility] 00:00:00 [facility] TDAP 2021-01-29 Completed [facility] 00:00:00 [facility] TDAP 2021-01-29 Completed [facility] 00:00:00 [facility] TDAP 2021-01-29 Completed [facility] 00:00:00 [facility] TDAP 2021-01-29 Completed [facility] 00:00:00 [facility] TDAP 2021-01-29 Completed [facility] 00:00:00 [facility] TDAP 2021-01-29 Completed [facility] 00:00:00 [facility] TDAP 2021-01-29 Completed [facility] 00:00:00 [facility] TDAP 2021-01-29 Completed [facility] 00:00:00 [facility] TDAP 2021-01-29 Completed [facility] 00:00:00 [facility] TDAP 2021-01-29 Completed [facility] 00[facility]00:00 [facility] TDAP 2021-01-29 Completed [facility] 00:00:00 [facility] TDAP 2021-01-29 Completed [facility] 00:00:00 [facility] TDAP 2021-01-29 Completed [facility] 00:00:00 [facility] TDAP 2021-01-29 Completed [facility] 00:00:00 [facility] TDAP 2021-01-29 Completed [facility] 00:00:00 [facility] TDAP 2021-01-29 Completed [facility] 00:00:00 [facility] TDAP 2021-01-29 Completed [facility] 00:00:00 [facility] TDAP 2021-01-29 Completed [facility] 00:00:00 [facility] TDAP 2021-01-29 Completed [facility] 00:00:00 [facility] TDAP 2021-01-29 Completed [facility] 00[facility]00:00 [facility] TDAP 2021-01-29 Completed [facility] 00[facility]00:00 [facility] TDAP 2021-01-29 Completed [facility] 00:00:00 [facility] TDAP 2021-01-29 Completed [facility] 00:00:00 [facility] TDAP 2021-01-29 Completed [facility] 00:00:00 [facility] TDAP 2021-01-29 Completed [facility] 00:00:00 [facility] TDAP 2021-01-29 Completed [facility] 00:00:00 [facility] TDAP 2021-01-29 Completed [facility] 00:00:00 [facility] TDAP 2021-01-29 Completed [facility] 00:00:00 [facility] TDAP 2021-01-29 Completed [facility] 00:00:00 [facility] TDAP 2021-01-29 Completed [facility] 00:00:00 [facility] TDAP 2021-01-29 Completed [facility] 00:00:00 [facility] TDAP 2021-01-29 Completed [facility] 00:00:00 [facility] TDAP 2021-01-29 Completed [facility] 00:00:00 [facility] TDAP 2021-01-29 Completed [facility] 00:00:00 [facility] TDAP 2021-01-29 Completed [facility] 00:00:00 [facility] TDAP 2021-01-29 Completed [facility] 00:00:00 [facility] TDAP 2021-01-29 Completed [facility] 00:00:00 [facility] TDAP 2021-01-29 Completed [facility] 00:00:00 [facility] Influenza Virus 2018-09-27 Completed [facility]5 mL 00:00:00 [facility] Influenza Virus 2018-09-27 Completed [facility] .5 mL 00:00:00 [facility] Influenza Virus 2018-09-27 Completed [facility] .5 mL 00:00:00 [facility] Influenza Virus [...] y of [facility] .5 mL 00:00:00 [facility] Influenza Virus 2018-09-27 Completed [facility]5 mL 00:00:00 [facility] Influenza Virus 2018-09-27 Completed [facility] .5 mL 00:00:00 [facility] Influenza Virus 2018-09-27 Completed [facility] .5 mL 00:00:00 [facility] Influenza Virus 2018-09-27 Completed [facility] .5 mL 00:00:00 [facility] Influenza Virus 2018-09-27 Completed [facility] .5 mL 00:00:00 [facility] Influenza Virus [...] y of [facility] .5 mL 00:00:00 [facility] Influenza Virus [...] y of [facility] .5 mL 00:00:00 [facility] Influenza Virus 2018-09-27 Completed [facility] .5 mL 00:00:00 [facility] Influenza Virus 2018-09-27 Completed [facility] .5 mL 00:00:00 [facility] Influenza Virus 2018-09-27 Completed [facility] .5 mL 00:00:00 [facility] Influenza Virus 2018-09-27 Completed [facility] .5 mL 00:00:00 [facility] Influenza Virus 2018-09-27 Completed [facility] .5 mL 00:00:00 [facility] Influenza Virus 2018-09-27 [...] y of [facility] .5 mL 00:00:00 [facility] Influenza Virus 2018-09-27 Completed [facility]5 mL 00:00:00 [facility] Influenza Virus 2018-09-27 Completed [facility] .5 mL 00:00:00 [facility] Influenza Virus [...] y of [facility] .5 mL 00:00:00 [facility] Influenza Virus 2018-09-27 Completed [facility] .5 mL 00:00:00 [facility] Influenza Virus 2018-09-27 Completed [facility] .5 mL 00:00:00 [facility] Influenza Virus 2018-09-27 Completed [facility] .5 mL 00:00:00 [facility] Influenza Virus 2018-09-27 Completed [facility] .5 mL 00:00:00 [facility] Influenza Virus 2018-09-27 Completed [facility] .5 mL 00:00:00 [facility] Influenza Virus 2018-09-27 [...] y of [facility] .5 mL 00:00:00 [facility] Influenza Virus 2018-09-27 Completed [facility] .5 mL 00:00:00 [facility] Influenza Virus [...] y of [facility] .5 mL 00:00:00 [facility] Influenza Virus 2018-09-27 Completed [facility] .5 mL 00:00:00 [facility] Influenza Virus 2018-09-27 Completed [facility] .5 mL 00:00:00 [facility] Influenza Virus 2018-09-27 Completed [facility] .5 mL 00:00:00 [facility] Influenza Virus 2018-09-27 Completed [facility] .5 mL 00:00:00 [facility] Influenza Virus 2018-09-27 Completed [facility] .5 mL 00:00:00 [facility] Influenza Virus 2018-09-27 Completed [facility] .5 mL 00:00:00 [facility] Influenza Virus 2018-09-27 Completed [facility] .5 mL 00:00:00 [facility] Influenza Virus 2018-09-27 Completed [facility] .5 mL 00:00:00 [facility] Influenza Virus 2018-09-27 Completed [facility] .5 mL 00:00:00 [facility] Influenza Virus 2018-09-27 Completed [facility] .5 mL 00:00:00 [facility] Influenza Virus 2018-09-27 Completed [facility] .5 mL 00:00:00 [facility] Influenza Virus 2018-09-27 Completed [facility] .5 mL 00:00:00 [facility] Influenza Virus 2018-09-27 Completed [facility] .5 mL 00:00:00 [facility] Influenza Virus 2018-09-27 Completed [facility] .5 mL 00:00:00 [facility] Influenza Virus 2018-09-27 Completed [facility] .5 mL 00:00:00 [facility] Influenza Virus 2018-09-27 Completed [facility] .5 mL 00:00:00 [facility] Influenza Virus 2018-09-27 Completed [facility] .5 mL 00:00:00 [facility] Influenza Virus 2018-09-27 Completed [facility] .5 mL 00:00:00 [facility] Influenza Virus 2018-09-27 Completed [facility] .5 mL 00:00:00 [facility] Influenza Virus 2018-09-27 Completed [facility] .5 mL 00:00:00 [facility] Influenza Virus 2018-09-27 Completed [facility] .5 mL 00:00:00 [facility] Influenza Virus 2018-09-27 Completed [facility] .5 mL 00:00:00 [facility] Influenza Virus 2018-09-27 Completed [facility] .5 mL 00:00:00 [facility] Influenza Virus 2018-09-27 Completed [facility] .5 mL 00:00:00 [facility] Influenza Virus 2018-09-27 Completed [facility] .5 mL 00:00:00 [facility] Influenza Virus 2018-09-27 Completed [facility] .5 mL 00:00:00 [facility] Influenza Virus 2018-09-27 Completed [facility] .5 mL 00:00:00 [facility] Influenza Virus 2018-09-27 Completed [facility] .5 mL 00:00:00 [facility] Influenza Virus [...] y of [facility] .5 mL 00:00:00 [facility] Influenza Virus 2018-09-27 Completed [facility] .5 mL 00:00:00 [facility] Influenza Virus 2018-09-27 Completed [facility] .5 mL 00:00:00 [facility] Influenza Virus 2018-09-27 Completed [facility] .5 mL 00:00:00 [facility] Influenza Virus 2018-09-27 Completed [facility] .5 mL 00:00:00 [facility] Influenza Virus 2018-09-27 Completed [facility] .5 mL 00:00:00 [facility] Influenza Virus [...] y of [facility] .5 mL 00:00:00 [facility] Influenza Virus [...] y of [facility] .5 mL 00:00:00 [facility] Influenza Virus 2018-09-27 Completed [facility] .5 mL 00:00:00 [facility] Influenza Virus 2018-09-27 Completed [facility] .5 mL 00:00:00 [facility] Influenza Virus 2018-09-27 Completed [facility] .5 mL 00:00:00 [facility] Influenza Virus 2018-09-27 Completed [facility] .5 mL 00:00:00 [facility] Influenza Virus 2018-09-27 Completed [facility] .5 mL 00:00:00 [facility] Influenza Virus 2018-09-27 Completed [facility] .5 mL 00:00:00 [facility] Influenza Virus 2018-09-27 Completed [facility] .5 mL 00:00:00 [facility] Influenza Virus 2018-09-27 Completed [facility] .5 mL 00:00:00 [facility] Influenza Virus 2016-10-20 Completed [facility] IM 3+ 00:00:00 [facility] Influenza Virus 2016-10-20 Completed [facility] IM 3+ 00:00:00 [facility] Influenza Virus 2016-10-20 Completed [facility] IM 3+ 00:00:00 [facility] Influenza Virus 2016-10-20 Completed [facility] IM 3+ 00:00:00 [facility] Influenza Virus 2016-10-20 Completed [facility] 3+ 00:00:00 [facility] Influenza Virus 2016-10-20 Completed [facility] 3+ 00:00:00 [facility] Influenza Virus 2016-10-20 Completed [facility] 3+ 00:00:00 [facility] Influenza Virus 2016-10-20 Completed [facility] 3+ 00:00:00 [facility] Influenza Virus 2016-10-20 Completed [facility] IM 3+ 00:00:00 [facility] Influenza Virus 2016-10-20 Completed [facility] 3+ 00:00:00 [facility] Influenza Virus 2016-10-20 Completed [facility] IM 3+ 00:00:00 [facility] Influenza Virus 2016-10-20 Completed [facility] IM 3+ 00:00:00 [facility] Influenza Virus 2016-10-20 Completed [facility] IM 3+ 00:00:00 [facility] Influenza Virus 2016-10-20 Completed [facility] IM 3+ 00:00:00 [facility] Influenza Virus 2016-10-20 Completed [facility] IM 3+ 00:00:00 [facility] Influenza Virus 2016-10-20 Completed [facility] IM 3+ 00:00:00 [facility] Influenza Virus 2016-10-20 Completed [facility] IM 3+ 00:00:00 [facility] Influenza Virus 2016-10-20 Completed [facility] IM 3+ 00:00:00 [facility] Influenza Virus 2016-10-20 Completed [facility] IM 3+ 00:00:00 [facility] Influenza Virus 2016-10-20 Completed [facility] IM 3+ 00:00:00 [facility] Influenza Virus 2016-10-20 Completed [facility] 3+ 00:00:00 [facility] Influenza Virus 2016-10-20 Completed [facility] 3+ 00:00:00 [facility] Influenza Virus 2016-10-20 Completed [facility] IM 3+ 00:00:00 [facility] Influenza Virus 2016-10-20 Completed [facility] 3+ 00:00:00 [facility] Influenza Virus 2016-10-20 Completed [facility] 3+ 00:00:00 [facility] Influenza Virus 2016-10-20 Completed [facility] 3+ 00:00:00 [facility] Influenza Virus 2016-10-20 Completed [facility] 3+ 00:00:00 [facility] Influenza Virus 2016-10-20 Completed [facility] 3+ 00:00:00 [facility] Influenza Virus 2016-10-20 Completed [facility] 3+ 00:00:00 [facility] Influenza Virus 2016-10-20 Completed [facility] 3+ 00:00:00 [facility] Influenza Virus 2016-10-20 Completed [facility] 3+ 00:00:00 [facility] Influenza Virus 2016-10-20 Completed [facility] 3+ 00:00:00 [facility] Influenza Virus 2016-10-20 Completed [facility] 3+ 00:00:00 [facility] Influenza Virus 2016-10-20 Completed [facility] 3+ 00:00:00 [facility] Influenza Virus 2016-10-20 Completed [facility] 3+ 00:00:00 [facility] Influenza Virus 2016-10-20 Completed [facility] 3+ 00:00:00 [facility] Influenza Virus 2016-10-20 Completed [facility] 3+ 00:00:00 [facility] Influenza Virus 2016-10-20 Completed [facility] 3+ 00:00:00 [facility] Influenza Virus 2016-10-20 Completed [facility] 3+ 00:00:00 [facility] Influenza Virus 2016-10-20 Completed [facility] 3+ 00:00:00 [facility] Influenza Virus 2016-10-20 Completed [facility] 3+ 00:00:00 [facility] Influenza Virus 2016-10-20 Completed [facility] 3+ 00:00:00 [facility] Influenza Virus 2016-10-20 Completed [facility] 3+ 00:00:00 [facility] Influenza Virus 2016-10-20 Completed [facility] 3+ 00:00:00 [facility] Influenza Virus 2016-10-20 Completed [facility] IM 3+ 00:00:00 [facility] Influenza Virus 2016-10-20 Completed [facility] 3+ 00:00:00 [facility] Influenza Virus 2016-10-20 Completed [facility] 3+ 00:00:00 [facility] Influenza Virus 2016-10-20 Completed [facility] 3+ 00[facility]00 [facility] [facility] Influenza Virus 2016-10-20 Completed [facility] Vaccine Quad IM 3+ 00:00:00 [facility] Influenza Virus 2016-10-20 Completed [facility] Vaccine Quad IM 3+ 00:00:00 [facility] Influenza Virus 2016-10-20 Completed [facility] Vaccine Quad IM 3+ 00:00:00 [facility] Influenza Virus 2016-10-20 Completed [facility] Vaccine Quad IM 3+ 00:00:00 [facility] Influenza Virus 2016-10-20 Completed [facility] Vaccine Quad IM 3+ 00:00:00 [facility] Influenza Virus 2016-10-20 Completed [facility] Vaccine Quad IM 3+ 00:00:00 [facility] Influenza Virus 2016-10-20 Completed [facility] Vaccine Quad IM 3+ 00:00:00 [facility] Influenza Virus 2016-10-20 Completed [facility] Vaccine Quad IM 3+ 00:00:00 [facility] Influenza Virus 2016-10-20 Completed [facility] Vaccine Quad IM 3+ 00:00:00 [facility] Influenza Virus 2016-10-20 Completed [facility] Vaccine Quad IM 3+ 00:00:00 [facility] Influenza Virus 2016-10-20 Completed [facility] Vaccine Quad IM 3+ 00:00:00 [facility] Influenza Virus 2016-10-20 Completed [facility] Vaccine Quad IM 3+ 00:00:00 [facility] Influenza Virus 2016-10-20 Completed [facility] Vaccine Quad IM 3+ 00:00:00 [facility] Influenza Virus 2016-10-20 Completed [facility] Vaccine Quad IM 3+ 00:00:00 [facility] Influenza Virus 2016-10-20 Completed [facility] Vaccine Quad IM 3+ 00:00:00 [facility] Influenza Virus 2016-10-20 Completed [facility] Vaccine Quad IM 3+ 00:00:00 [facility] Influenza Virus 2016-10-20 Completed [facility] Vaccine Quad IM 3+ 00:00:00 [facility] Influenza Virus 2016-10-20 Completed [facility] Vaccine Quad IM 3+ 00:00:00 [facility] Influenza Virus 2016-10-20 Completed [facility] Vaccine Quad IM 3+ 00:00:00 [facility] Influenza Virus 2016-10-20 Completed [facility] Vaccine Quad IM 3+ 00:00:00 [facility] Influenza Virus 2016-10-20 Completed [facility] Vaccine Quad IM 3+ 00:00:00 [facility] Influenza Virus 2016-10-20 Completed [facility] Vaccine Quad IM 3+ 00:00:00 [facility] Influenza Virus 2016-10-20 Completed [facility] Vaccine Quad IM 3+ 00:00:00 [facility] Influenza Virus 2016-10-20 Completed [facility] Vaccine Quad IM 3+ 00:00:00 [facility] Influenza Virus 2016-10-20 Completed [facility] Vaccine Quad IM 3+ 00:00:00 [facility] Influenza Virus 2016-10-20 Completed [facility] Vaccine Quad IM 3+ 00:00:00 [facility] Influenza Virus 2016-10-20 Completed [facility] Vaccine Quad IM 3+ 00:00:00 [facility] Influenza Virus 2016-10-20 Completed [facility] Vaccine Quad IM 3+ 00:00:00 [facility] Influenza Virus 2016-10-20 Completed [facility] Vaccine Quad IM 3+ 00:00:00 [facility] Influenza Virus 2016-10-20 Completed [facility] Vaccine Quad IM 3+ 00:00:00 [facility] Influenza Virus 2016-10-20 Completed [facility] Vaccine Quad IM 3+ 00:00:00 [facility] Influenza Virus 2016-10-20 Completed [facility] Vaccine Quad IM 3+ 00:00:00 [facility] Influenza Virus 2016-10-20 Completed [facility] Vaccine Quad IM 3+ 00:00:00 [facility] Influenza Virus 2016-10-20 Completed [facility] Vaccine Quad IM 3+ 00:00:00 [facility] Influenza Virus 2016-10-20 Completed [facility] Vaccine Quad IM 3+ 00:00:00 [facility] Influenza Virus 2016-10-20 Completed [facility] Vaccine Quad IM 3+ 00:00:00 [facility] Influenza Virus 2016-10-20 Completed [facility] Vaccine Quad IM 3+ 00:00:00 [facility] Influenza Virus 2016-10-20 Completed [facility] Vaccine Quad IM 3+ 00:00:00 [facility] Influenza Virus 2016-10-20 Completed [facility] Vaccine Quad IM 3+ 00:00:00 [facility] Influenza Virus 2016-10-20 Completed [facility] Vaccine Quad IM 3+ 00:00:00 [facility] Influenza Virus 2016-10-20 Completed [facility] Vaccine Quad IM 3+ 00:00:00 [facility] Influenza Virus 2016-10-20 Completed [facility] Vaccine Quad IM 3+ 00:00:00 [facility] Influenza Virus 2016-10-20 Completed [facility] Vaccine Quad IM 3+ 00:00:00 [facility] Influenza Virus 2016-10-20 Completed [facility] Vaccine Quad IM 3+ 00:00:00 [facility] Influenza Virus 2016-10-20 Completed [facility] Vaccine Quad IM 3+ 00:00:00 [facility] Influenza Virus 2016-10-20 Completed [facility] Vaccine Quad IM 3+ 00:00:00 [facility] Influenza Virus 2016-10-20 Completed [facility] Vaccine Quad IM 3+ 00:00:00 [facility] Influenza Virus 2016-10-20 Completed [facility] Vaccine Quad IM 3+ 00:00:00 [facility] Influenza Virus 2016-10-20 Completed [facility] Vaccine Quad IM 3+ 00:00:00 [facility] Influenza Virus 2016-10-20 Completed [facility] Vaccine Quad IM 3+ 00:00:00 [facility] Influenza Virus 2016-10-20 Completed [facility] Vaccine Quad IM 3+ 00:00:00 [facility] Influenza Virus 2016-10-20 Completed [facility] Vaccine Quad IM 3+ 00:00:00 [facility] Influenza Virus 2016-10-20 Completed [facility] Vaccine Quad IM 3+ 00:00:00 [facility] Influenza Virus 2016-10-20 Completed [facility] Vaccine Quad IM 3+ 00:00:00 [facility] Influenza Virus 2016-10-20 Completed [facility] Vaccine Quad IM 3+ 00:00:00 [facility] Influenza Virus 2016-10-20 Completed [facility] Vaccine Quad IM 3+ 00:00:00 [facility] Influenza Virus 2016-10-20 Completed [facility] Vaccine Quad IM 3+ 00:00:00 [facility] Influenza Virus 2016-10-20 Completed [facility] Vaccine Quad IM 3+ 00:00:00 [facility] Influenza Virus 2016-10-20 Completed [facility] Vaccine Quad IM 3+ 00:00:00 [facility] Influenza Virus 2016-10-20 Completed [facility] Vaccine Quad IM 3+ 00:00:00 [facility] Influenza Virus 2016-10-20 Completed [facility] Vaccine Quad IM 3+ 00:00:00 [facility] Influenza Virus 2016-10-20 Completed [facility] Vaccine Quad IM 3+ 00:00:00 [facility] Influenza Virus 2016-10-20 Completed [facility] Vaccine Quad IM 3+ 00:00:00 [facility] Influenza Virus 2016-10-20 Completed [facility] Vaccine Quad IM 3+ 00:00:00 [facility] Influenza Virus 2016-10-20 Completed [facility] Vaccine Quad IM 3+ 00:00:00 [facility] Influenza Virus 2016-10-20 Completed [facility] Vaccine Quad IM 3+ 00:00:00 [facility] Influenza Virus 2016-10-20 Completed [facility] Vaccine Quad IM 3+ 00:00:00 [facility] Influenza Virus 2016-10-20 Completed [facility] Vaccine Quad IM 3+ 00:00:00 [facility] Influenza Virus 2016-10-20 Completed [facility] Vaccine Quad IM 3+ 00:00:00 [facility] Influenza Virus 2016-10-20 Completed [facility] Vaccine Quad IM 3+ 00:00:00 [facility] Influenza Virus 2016-10-20 Completed [facility] Vaccine Quad IM 3+ 00:00:00 [facility] Influenza Virus 2016-10-20 Completed [facility] Vaccine Quad IM 3+ 00:00:00 [facility] Influenza Virus 2016-10-20 Completed [facility] Vaccine Quad IM 3+ 00:00:00 [facility] TDAP 2015-01-29 Completed [facility] of 00:00:00 [facility] TDAP 2015-01-29 Completed [facility] 00:00:00 [facility] TDAP 2015-01-29 Completed [facility] 00:00:00 [facility] TDAP 2015-01-29 Completed [facility] 00:00:00 [facility] TDAP 2015-01-29 Completed [facility] 00:00:00 [facility] TDAP 2015-01-29 Completed [facility] 00:00:00 [facility] TDAP 2015-01-29 Completed [facility] 00:00:00 [facility] TDAP 2015-01-29 Completed [facility] 00:00:00 [facility] TDAP 2015-01-29 Completed [facility] 00:00:00 [facility] TDAP 2015-01-29 Completed [facility] 00:00:00 [facility] TDAP 2015-01-29 Completed [facility] 00:00:00 [facility] TDAP 2015-01-29 Completed [facility] 00:00:00 [facility] TDAP 2015-01-29 Completed [facility] 00:00:00 [facility] TDAP 2015-01-29 Completed [facility] 00:00:00 [facility] TDAP 2015-01-29 Completed [facility] 00:00:00 [facility] TDAP 2015-01-29 Completed [facility] 00:00:00 [facility] TDAP 2015-01-29 Completed [facility] 00:00:00 [facility] TDAP 2015-01-29 Completed [facility] 00:00:00 [facility] TDAP 2015-01-29 Completed [facility] 00:00:00 [facility] TDAP 2015-01-29 Completed [facility] 00:00:00 [facility] TDAP 2015-01-29 Completed [facility] 00:00:00 [facility] TDAP 2015-01-29 Completed [facility] 00:00:00 [facility] TDAP 2015-01-29 Completed [facility] 00:00:00 [facility] TDAP 2015-01-29 Completed [facility] 00:00:00 [facility] TDAP 2015-01-29 Completed [facility] 00:00:00 [facility] TDAP 2015-01-29 Completed [facility] 00:00:00 [facility] TDAP 2015-01-29 Completed [facility] 00:00:00 [facility] TDAP 2015-01-29 Completed [facility] 00:00:00 [facility] TDAP 2015-01-29 Completed [facility] 00:00:00 [facility] TDAP 2015-01-29 Completed [facility] 00:00:00 [facility] TDAP 2015-01-29 Completed [facility] 00:00:00 [facility] TDAP 2015-01-29 Completed [facility] 00:00:00 [facility] TDAP 2015-01-29 Completed [facility] 00:00:00 [facility] TDAP 2015-01-29 Completed [facility] 00:00:00 [facility] TDAP 2015-01-29 Completed [facility] 00:00:00 [facility] TDAP 2015-01-29 Completed [facility] 00:00:00 [facility] TDAP 2015-01-29 Completed [facility] 00:00:00 [facility] TDAP 2015-01-29 Completed [facility] 00:00:00 [facility] TDAP 2015-01-29 Completed [facility] 00:00:00 [facility] TDAP 2015-01-29 Completed [facility] 00:00:00 [facility] TDAP 2015-01-29 Completed [facility] 00:00:00 [facility] TDAP 2015-01-29 Completed [facility] 00:00:00 [facility] TDAP 2015-01-29 Completed [facility] 00:00:00 [facility] TDAP 2015-01-29 Completed [facility] 00:00:00 [facility] TDAP 2015-01-29 Completed [facility] 00:00:00 [facility] TDAP 2015-01-29 Completed [facility] 00:00:00 [facility] TDAP 2015-01-29 Completed [facility] 00:00:00 [facility] TDAP 2015-01-29 Completed [facility] 00:00:00 [facility] TDAP 2015-01-29 Completed [facility] 00:00:00 [facility] TDAP 2015-01-29 Completed [facility] 00:00:00 [facility] TDAP 2015-01-29 Completed [facility] 00:00:00 [facility] TDAP 2015-01-29 Completed [facility] 00:00:00 [facility] TDAP 2015-01-29 Completed [facility] 00:00:00 [facility] TDAP 2015-01-29 Completed [facility] 00:00:00 [facility] TDAP 2015-01-29 Completed [facility] 00:00:00 [facility] TDAP 2015-01-29 Completed [facility] 00:00:00 [facility] TDAP 2015-01-29 Completed [facility] 00:00:00 [facility] TDAP 2015-01-29 Completed [facility] 00:00:00 [facility] TDAP 2015-01-29 Completed [facility] 00:00:00 [facility] TDAP 2015-01-29 Completed [facility] 00:00:00 [facility] TDAP 2015-01-29 Completed [facility] 00:00:00 [facility] TDAP 2015-01-29 Completed [facility] 00:00:00 [facility] TDAP 2015-01-29 Completed [facility] 00:00:00 [facility] TDAP 2015-01-29 Completed [facility] 00:00:00 [facility] TDAP 2015-01-29 Completed [facility] 00:00:00 [facility] TDAP 2015-01-29 Completed [facility] 00:00:00 [facility] TDAP 2015-01-29 Completed [facility] 00:00:00 [facility] TDAP 2015-01-29 Completed [facility] 00:00:00 [facility] TDAP 2015-01-29 Completed [facility] 00:00:00 [facility] TDAP 2015-01-29 Completed [facility] 00:00:00 [facility] TDAP 2015-01-29 Completed [facility] 00:00:00 [facility] TDAP 2015-01-29 Completed [facility] 00:00:00 [facility] TDAP 2015-01-29 Completed [facility] 00:00:00 [facility] TDAP 2015-01-29 Completed [facility] 00:00:00 [facility] TDAP 2015-01-29 Completed [facility] 00:00:00 [facility] TDAP 2015-01-29 Completed [facility] 00:00:00 [facility] TDAP 2015-01-29 Completed [facility] 00:00:00 [facility] TDAP 2015-01-29 Completed [facility] 00:00:00 [facility] TDAP 2015-01-29 Completed [facility] 00:00:00 [facility] TDAP 2015-01-29 Completed [facility] 00:00:00 [facility] TDAP 2015-01-29 Completed [facility] 00:00:00 [facility] TDAP 2015-01-29 Completed [facility] 00:00:00 [facility] TDAP 2015-01-29 Completed [facility] 00:00:00 [facility] TDAP 2015-01-29 Completed [facility] 00:00:00 [facility] TDAP 2015-01-29 Completed [facility] 00:00:00 [facility] TDAP 2015-01-29 Completed [facility] 00:00:00 [facility] TDAP 2015-01-29 Completed [facility] 00:00:00 [facility] TDAP 2015-01-29 Completed [facility] 00:00:00 [facility] TDAP 2015-01-29 Completed [facility] 00:00:00 [facility] TDAP 2015-01-29 Completed [facility] 00:00:00 [facility] TDAP 2015-01-29 Completed [facility] 00:00:00 [facility] TDAP 2015-01-29 Completed [facility] 00:00:00 [facility] TDAP 2015-01-29 Completed [facility] 00:00:00 [facility] TDAP 2015-01-29 Completed [facility] 00:00:00 [facility] TDAP 2015-01-29 Completed [facility] 00:00:00 [facility] TDAP 2015-01-29 Completed [facility] 00:00:00 [facility] TDAP 2015-01-29 Completed [facility] 00:00:00 [facility] TDAP 2015-01-29 Completed [facility] 00:00:00 [facility] TDAP 2015-01-29 Completed [facility] 00:00:00 [facility] TDAP 2015-01-29 Completed [facility] 00:00:00 [facility] TDAP 2015-01-29 Completed [facility] 00:00:00 [facility] TDAP 2015-01-29 Completed [facility] 00:00:00 [facility] TDAP 2015-01-29 Completed [facility] 00:00:00 [facility] TDAP 2015-01-29 Completed [facility] 00:00:00 [facility] TDAP 2015-01-29 Completed [facility] 00:00:00 [facility] TDAP 2015-01-29 Completed [facility] 00:00:00 [facility] TDAP 2015-01-29 Completed [facility] 00:00:00 [facility] TDAP 2015-01-29 Completed [facility] 00:00:00 [facility] TDAP 2015-01-29 Completed [facility] 00:00:00 [facility] TDAP 2015-01-29 Completed [facility] 00:00:00 [facility] TDAP 2015-01-29 Completed [facility] 00:00:00 [facility] TDAP 2015-01-29 Completed [facility] 00:00:00 [facility] TDAP 2015-01-29 Completed [facility] 00:00:00 [facility] TDAP 2015-01-29 Completed [facility] 00:00:00 [facility] TDAP 2015-01-29 Completed [facility] 00:00:00 [facility] TDAP 2015-01-29 Completed [facility] 00:00:00 [facility] TDAP 2015-01-29 Completed [facility] 00:00:00 [facility] TDAP 2015-01-29 Completed [facility] 00:00:00 [facility] TDAP 2015-01-29 Completed [facility] 00:00:00 [facility] TDAP 2015-01-29 Completed [facility] 00:00:00 [facility] TDAP 2015-01-29 Completed [facility] 00:00:00 [facility] HPV 2010-07-05 Completed [facility] of 00:00:00 [facility] Influenza Virus 2010-07-05 Completed [facility] y of Vaccine - Whole 00:00:00 [facility] HPV 2010-07-05 Completed [facility] of 00:00:00 [facility] Influenza Virus 2010-07-05 Completed [facility] y of Vaccine - Whole 00:00:00 [facility] HPV 2010-07-05 Completed [facility] 00:00:00 [facility] Influenza Virus 2010-07-05 Completed [facility] y of Vaccine - Whole 00:00:00 [facility] HPV 2010-07-05 Completed [facility] 00:00:00 [facility] Influenza Virus 2010-07-05 Completed [facility] y of Vaccine - Whole 00:00:00 [facility] HPV 2010-07-05 Completed [facility] of 00:00:00 [facility] Influenza Virus 2010-07-05 Completed [facility] y of Vaccine - Whole 00:00:00 [facility] HPV 2010-07-05 Completed [facility] 00:00:00 [facility] Influenza Virus 2010-07-05 Completed [facility] y of Vaccine - Whole 00:00:00 [facility] HPV 2010-07-05 Completed [facility] 00:00:00 [facility] Influenza Virus 2010-07-05 Completed [facility] y of Vaccine - Whole 00:00:00 [facility] HPV 2010-07-05 Completed [facility] 00:00:00 [facility] Influenza Virus 2010-07-05 Completed [facility] y of Vaccine - Whole 00:00:00 [facility] HPV 2010-07-05 Completed [facility] 00:00:00 [facility] Influenza Virus 2010-07-05 Completed [facility] y of Vaccine - Whole 00:00:00 [facility] HPV 2010-07-05 Completed [facility] 00:00:00 [facility] Influenza Virus 2010-07-05 Completed [facility] y of Vaccine - Whole 00:00:00 [facility] HPV 2010-07-05 Completed [facility] 00:00:00 [facility] Influenza Virus 2010-07-05 Completed [facility] y of Vaccine - Whole 00:00:00 [facility] HPV 2010-07-05 Completed [facility] 00:00:00 [facility] Influenza Virus 2010-07-05 Completed [facility] y of Vaccine - Whole 00:00:00 [facility] HPV 2010-07-05 Completed [facility] 00:00:00 [facility] Influenza Virus 2010-07-05 Completed [facility] y of Vaccine - Whole 00:00:00 [facility] HPV 2010-07-05 Completed [facility] 00:00:00 [facility] Influenza Virus 2010-07-05 Completed [facility] y of Vaccine - Whole 00:00:00 [facility] HPV 2010-07-05 Completed [facility] 00:00:00 [facility] Influenza Virus 2010-07-05 Completed [facility] y of Vaccine - Whole 00:00:00 [facility] HPV 2010-07-05 Completed [facility] 00:00:00 [facility] Influenza Virus 2010-07-05 Completed [facility] y of Vaccine - Whole 00:00:00 [facility] HPV 2010-07-05 Completed [facility] 00:00:00 [facility] Influenza Virus 2010-07-05 Completed [facility] y of Vaccine - Whole 00:00:00 [facility] HPV 2010-07-05 Completed [facility] of 00:00:00 [facility] Influenza Virus 2010-07-05 Completed [facility] y of Vaccine - Whole 00:00:00 [facility] HPV 2010-07-05 Completed [facility] 00[facility]00:00 [facility] Influenza Virus 2010-07-05 Completed [facility] y of Vaccine - Whole 00:00:00 [facility] HPV 2010-07-05 Completed [facility] 00:00:00 [facility] Influenza Virus 2010-07-05 Completed [facility] y of Vaccine - Whole 00:00:00 [facility] HPV 2010-07-05 Completed [facility] of 00:00:00 [facility] Influenza Virus 2010-07-05 Completed Universit y of Vaccine - Whole 00:00:00 [facility] HPV 2010-07-05 Completed University of 00:00:00 [facility] Influenza Virus 2010-07-05 Completed Universit y of Vaccine - Whole 00:00:00 [facility] HPV 2010-07-05 Completed University of 00:00:00 [facility] Influenza Virus 2010-07-05 Completed Universit y of Vaccine - Whole 00:00:00 [facility] HPV 2010-07-05 Completed University of 00:00:00 [facility] Influenza Virus 2010-07-05 Completed Universit y of Vaccine - Whole 00:00:00 [facility] HPV 2010-07-05 Completed University of 00:00:00 [facility] Influenza Virus 2010-07-05 Completed Universit y of Vaccine - Whole 00:00:00 [facility] HPV 2010-02-12 Completed University of 00:00:00 [facility] HPV 2010-02-12 Completed University of 00:00:00 [facility] HPV 2010-02-12 Completed University of 00:00:00 [facility] HPV 2010-02-12 Completed University of 00:00:00 [facility] HPV 2010-02-12 Completed University of 00:00:00 [facility] HPV 2010-02-12 Completed University of 00:00:00 [facility] HPV 2010-02-12 Completed University of 00:00:00 [facility] HPV 2010-02-12 Completed University of 00:00:00 [facility] HPV 2010-02-12 Completed University of 00:00:00 [facility] HPV 2010-02-12 Completed University of 00:00:00 [facility] HPV 2010-02-12 Completed University of 00:00:00 [facility] HPV 2010-02-12 Completed University of 00:00:00 [facility] HPV 2010-02-12 Completed University [...] Branch HPV 2009-12-14 Completed University of 00:00:00 [facility] HPV 2009-12-14 Completed University of 00:00:00 [facility] HPV 2009-12-14 Completed University of 00:00:00 [facility] HPV 2009-12-14 Completed University of 00:00:00 [facility] HPV 2009-12-14 Completed University of 00:00:00 [facility] HPV 2009-12-14 Completed University of 00:00:00 [facility] HPV 2009-12-14 Completed University of 00:00:00 [facility] HPV 2009-12-14 Completed University of 00:00:00 [facility] Vital Signs Vital Name Observation Time Observation Value Comments Source Systolic blood 2022-10-10 17:30:00 127 mm[Hg] Univer sity of pressure [facility] Diastolic blood 2022-10-10 17:30:00 81 mm[Hg] Unive rsity of pressure [facility] Heart rate 2022-10-10 17:30:00 88 /min Universi [facility] Body temperature 2022-10-10 17:30:00 36.72 Lien [facility] Respiratory rate 2022-10-10 17:30:00 16 /min [facility] Body weight 2022-10-10 17:30:00 86.456 kg [facility] BMI 2022-10-10 17:30:00 32.72 [facility] 2022-10-06 23:00:00 124 mm[Hg] Univer sity of pressure [facility] Diastolic blood 2022-10-06 23:00:00 73 mm[Hg] Unive rsity of pressure [facility] Heart rate 2022-10-06 23:00:00 87 /min Universi ty of [facility] Respiratory rate 2022-10-06 23:00:00 16 /min [facility] Oxygen saturation in 2022-10-06 23:00:00 97 /min [facility] Arterial blood by [facility] Pulse oximetry [place] Body temperature 2022-10-06 19:03:00 37.39 Lien [facility] Body weight 2022-10-06 19:03:00 83.462 kg Universi [facility] BMI 2022-10-06 19:03:00 31.58 kg/m2 Universi ty of [facility] Systolic blood 2022-10-06 18:50:00 155 mm[Hg] Univer sity of pressure [facility] Diastolic blood 2022-10-06 18:50:00 90 mm[Hg] Unive rsity of pressure [facility] Heart rate 2022-10-06 18:38:00 95 /min Universi ty of [facility] Body temperature 2022-10-06 18:38:00 36.11 Lien Univ ersity of [facility] Respiratory rate 2022-10-06 18:38:00 18 /min Univ ersity of [facility] Body height 2022-10-06 18:38:00 162.6 cm Universi ty [facility] Body weight 2022-10-06 18:38:00 84.624 kg [facility] ty [facility] BMI 2022-10-06 18:38:00 32.02 kg/m2 Universi ty of [facility] Oxygen saturation in 2022-10-06 18:38:00 99 /min University of Arterial blood by [facility] Pulse oximetry Branch Systolic blood 2022-09-19 16:49:00 142 mm[Hg] Univer sity of pressure [facility] Diastolic blood 2022-09-19 16:49:00 86 mm[Hg] Unive rsity of pressure [facility] Heart rate 2022-09-19 16:48:00 75 /min Universi ty of [facility] Body temperature 2022-09-19 16:48:00 36.83 Lien Univ ersity of [facility] Body height 2022-09-19 16:48:00 162.6 cm [facility] ty [facility] Body weight 2022-09-19 16:48:00 90.266 kg [facility] BMI 2022-09-19 16:48:00 34.16 kg/m2 Universi ty of [facility] Heart rate 2022-09-12 16:30:00 66 /min [facility]i ty [facility] Body temperature 2022-09-12 16:30:00 36.67 Lien Univ ersity of [facility] Respiratory rate 2022-09-12 16:30:00 17 /min Univ ersity of [facility] Systolic blood 2022-09-12 14:00:00 110 mm[Hg] Univer sity of pressure [facility] Diastolic blood 2022-09-12 14:00:00 62 mm[Hg] Unive rsity of pressure [facility] Oxygen saturation in 2022-09-12 12:00:00 99 /min University of Arterial blood by [facility] Pulse oxim[facility] Body height 2022-09-11 11:55:00 162.6 cm Universi ty of [facility] Body weight 2022-09-11 11:55:00 91.264 kg [facility]i ty [facility] BMI 2022-09-11 11:55:00 34.54 kg/m2 [facility] ty [facility] Systolic blood 2022-09-11 15:45:00 119 mm[Hg] Univer sity of pressure [facility] Diastolic blood 2022-09-11 15:45:00 54 mm[Hg] Unive rsity of pressure [facility] Heart rate 2022-09-11 15:45:00 89 /min Universi ty of [facility] Body temperature 2022-09-11 15:45:00 36.5 Lien Univ ersity of [facility] Respiratory rate 2022-09-11 15:45:00 21 /min Univ ersity of [facility] Oxygen saturation in 2022-09-11 15:45:00 99 /min University of Arterial blood by [facility] Pulse oxim[facility] Body height 2022-09-11 11:55:00 162.6 cm [facility]i ty [facility] Body weight 2022-09-11 11:55:00 91.264 kg [facility] BMI 2022-09-11 11:55:00 34.54 kg/m2 [facility] ty [facility] Respiratory rate 2022-09-11 15:30:00 35 /min Univ ersity of [facility] Systolic blood 2022-09-05 20:00:00 122 mm[Hg] Univer sity of pressure [facility] Diastolic blood 2022-09-05 20:00:00 80 mm[Hg] Unive rsity of pressure [facility] Heart rate 2022-09-05 20:00:00 89 /min Universi ty of [facility] Body temperature 2022-09-05 20:00:00 36.56 Lien Univ ersity of [facility] Body weight 2022-09-05 20:00:00 91.264 kg [facility]i ty [facility] BMI 2022-09-05 20:00:00 34.54 kg/m2 [facility] ty [facility] Systolic blood 2022-09-04 08:30:00 109 mm[Hg] Univer sity of pressure [facility] Diastolic blood 2022-09-04 08:30:00 58 mm[Hg] Unive rsity of pressure [facility] Heart rate 2022-09-04 08:30:00 78 /min Universi ty of [facility] Oxygen saturation in 2022-09-04 08:30:00 96 /min University of Arterial blood by [employer] [facility] Pulse oximetry [facility] Systolic blood 2022-08-29 17:05:00 128 mm[Hg] Univer sity of pressure [facility] Diastolic blood 2022-08-29 17:05:00 79 mm[Hg] Unive rsity of pressure [facility] Heart rate 2022-08-29 17:05:00 96 /min Universi ty of [facility] Body temperature 2022-08-29 17:05:00 36.89 Lien Univ ersity of [facility] Respiratory rate 2022-08-29 17:05:00 16 /min Univ ersity of [facility] Body height 2022-08-29 17:05:00 162.6 cm [facility]i ty [facility] Body weight 2022-08-29 17:05:00 92.262 kg [facility] ty [facility] BMI 2022-08-29 17:05:00 34.91 kg/m2 [facility] ty [facility] Oxygen saturation in 2022-08-29 17:05:00 99 /min University of Arterial blood by [place] [facility] P[facility] Systolic blood 2022-08-22 00:31:00 118 mm[Hg] Univer sity of pressure [facility] Diastolic blood 2022-08-22 00:31:00 77 mm[Hg] Unive rsity of pressure [facility] Heart rate 2022-08-22 00:31:00 105 /min Universi ty [facility] Body temperature 2022-08-22 00:31:00 36.67 Lien Univ ersity of [facility] Respiratory rate 2022-08-22 00:31:00 16 /min Univ ersity [facility] Body height 2022-08-22 00:31:00 162.6 cm [facility] Body weight 2022-08-22 00:31:00 91.808 kg [facility] BMI 2022-08-22 00:31:00 34.74 kg/m2 [facility] Oxygen saturation in 2022-08-22 00:31:00 98 /min University of Arterial blood by [facility] Pulse oxim[facility] Systolic blood 2022-08-14 15:56:00 108 mm[Hg] Univer sity of pressure [facility] Diastolic blood 2022-08-14 15:56:00 73 mm[Hg] Unive rsity of pressure [facility] Heart rate 2022-08-14 15:56:00 84 /min [facility] ty [facility] Body temperature 2022-08-14 15:56:00 36.72 Lien Univ ersity [facility] Body weight 2022-08-14 15:56:00 90.357 kg [facility] BMI 2022-08-14 15:56:00 34.19 kg/m2 [facility] Heart rate 2022-08-12 06:00:00 85 /min [facility] Oxygen saturation in 2022-08-12 06:00:00 98 /min University of Arterial blood by [facility] Pulse oxim[facility] Systolic blood 2022-08-12 05:30:00 118 mm[Hg] Univer sity of pressure [facility] Diastolic blood 2022-08-12 05:30:00 81 mm[Hg] Unive rsity of pressure [facility] Body temperature 2022-08-12 02:00:00 36.83 Lien Univ ersity of [facility] Respiratory rate 2022-08-12 00:46:00 18 /min Univ ers[facility] Body weight 2022-08-12 00:46:00 90.493 kg [facility] BMI 2022-08-12 00:46:00 34.24 kg/m2 [facility] Systolic blood 2022-07-31 15:00:00 110 mm[Hg] Univer sity of pressure [facility] Diastolic blood 2022-07-31 15:00:00 75 mm[Hg] Unive rsity of pressure [facility] Heart rate 2022-07-31 15:00:00 89 /min [facility] Body temperature 2022-07-31 15:00:00 36.72 Lien Univ ers[facility] Respiratory rate 2022-07-31 15:00:00 18 /min Univ ers[facility] Body height 2022-07-31 15:00:00 162.6 cm [facility] Body weight 2022-07-31 15:00:00 90.629 kg [facility] BMI 2022-07-31 15:00:00 34.30 kg/m2 [facility] ty [facility] Systolic blood 2022-07-31 01:49:00 131 mm[Hg] Univer sity of pressure [facility] Diastolic blood 2022-07-31 01:49:00 74 mm[Hg] Unive rsity of pressure [facility] Heart rate 2022-07-31 01:49:00 98 /min [facility] ty [facility] Respiratory rate 2022-07-31 01:49:00 16 /min Univ ers[facility] Oxygen saturation in 2022-07-31 01:49:00 100 /min University of Arterial blood by [place] [facility] Body temperature 2022-07-30 23:24:00 36.72 Lien Univ ers[facility] Systolic blood 2022-07-30 08:06:57 124 mm[Hg] Univer sity of pressure [facility] Diastolic blood 2022-07-30 08:06:57 71 mm[Hg] Unive rsity of pressure [facility] Heart rate 2022-07-30 08:06:57 100 /min [facility]i ty [facility] Respiratory rate 2022-07-30 08:06:57 18 /min Univ ersity [facility] Oxygen saturation in 2022-07-30 08:06:57 98 /min University of Arterial blood by [place] [facility] Body temperature 2022-07-30 07:37:00 36.61 Lien Univ ers[facility] Body height 2022-07-30 07:37:00 162.6 cm [facility] ty [facility] Body weight 2022-07-30 07:37:00 87.091 kg [facility] BMI 2022-07-30 07:37:00 32.96 kg/m2 Universi ty of [facility] Systolic blood 2022-07-18 17:24:00 117 mm[Hg] Univer sity of pressure [facility] Diastolic blood 2022-07-18 17:24:00 85 mm[Hg] Unive rsity of pressure [facility] Heart rate 2022-07-18 17:24:00 100 /min Universi ty of [facility] Body temperature 2022-07-18 17:24:00 36.78 Lien Univ ersity of [facility] Respiratory rate 2022-07-18 17:24:00 16 /min Univ ersity of [facility] Body height 2022-07-18 17:24:00 162.6 cm Universi ty of [facility] Body weight 2022-07-18 17:24:00 89.721 kg Universi ty of [facility] BMI 2022-07-18 17:24:00 33.95 kg/m2 Universi ty of [facility] Oxygen saturation in 2022-07-18 17:24:00 100 /min University of Arterial blood by [facility] Pulse oximetry Branch Systolic blood 2022-07-18 14:49:00 118 mm[Hg] Univer sity of pressure [facility] Diastolic blood 2022-07-18 14:49:00 79 mm[Hg] Unive rsity of pressure [facility] Heart rate 2022-07-18 14:49:00 88 /min Universi ty of [facility] Body temperature 2022-07-18 14:49:00 36.72 Lien Univ ersity of [facility] Body height 2022-07-18 14:49:00 162.6 cm [facility]i ty [facility] Body weight 2022-07-18 14:49:00 89.903 kg [facility] ty [facility] BMI 2022-07-18 14:49:00 34.02 kg/m2 [facility] Systolic blood 2022-07-01 16:37:00 130 mm[Hg] Univer sity of pressure [facility] Diastolic blood 2022-07-01 16:37:00 86 mm[Hg] Unive rsity of pressure [facility] Heart rate 2022-07-01 16:37:00 89 /min [facility] Body temperature 2022-07-01 16:37:00 36.83 Lien Univ [facility] Respiratory rate 2022-07-01 16:37:00 18 /min Univ [facility] Body height 2022-07-01 16:37:00 162.6 cm Universi ty of [facility] Body weight 2022-07-01 16:37:00 89.812 kg [facility] BMI 2022-07-01 16:37:00 33.99 kg/m2 Universi ty of [facility] Systolic blood 2022-06-20 15:29:00 112 mm[Hg] Univer sity of pressure [facility] Diastolic blood 2022-06-20 15:29:00 70 mm[Hg] Unive rsity of pressure [facility] Heart rate 2022-06-20 15:29:00 87 /min Universi ty of [facility] Body temperature 2022-06-20 15:29:00 36.83 Lien Univ [facility] Respiratory rate 2022-06-20 15:29:00 16 /min Univ [facility] Body height 2022-06-20 15:29:00 162.6 cm [facility] Body weight 2022-06-20 15:29:00 88.86 kg [facility] BMI 2022-06-20 15:29:00 33.63 kg/m2 Universi ty of [facility] Oxygen saturation in 2022-06-20 15:29:00 96 /min University of Arterial blood by [facility] Pulse oxim[facility] Systolic blood 2022-05-23 13:46:00 128 mm[Hg] Univer sity of pressure [facility] Diastolic blood 2022-05-23 13:46:00 83 mm[Hg] Unive rsity of pressure [facility] Heart rate 2022-05-23 13:46:00 93 /min Universi ty of [facility] Body temperature 2022-05-23 13:46:00 36.89 Lien Univ ersity of [facility] Respiratory rate 2022-05-23 13:46:00 16 /min Univ ersity of [facility] Body height 2022-05-23 13:46:00 162.6 cm [facility]i ty [facility] Body weight 2022-05-23 13:46:00 88.089 kg [facility] ty [facility] BMI 2022-05-23 13:46:00 33.33 kg/m2 [facility] Oxygen saturation in 2022-05-23 13:46:00 98 /min University of Arterial blood by [facility] Systolic blood 2022-05-21 20:21:00 122 mm[Hg] Univer sity of pressure [facility] Diastolic blood 2022-05-21 20:21:00 80 mm[Hg] Unive rsity of pressure [facility] Body temperature 2022-05-21 20:21:00 36.83 Lien Univ [facility] Respiratory rate 2022-05-21 20:21:00 18 /min Univ [facility] Body height 2022-05-21 20:21:00 162.6 cm [facility] Body weight 2022-05-21 20:21:00 87.998 kg [facility] BMI 2022-05-21 20:21:00 33.30 kg/m2 [facility] Systolic blood 2022-05-16 14:24:00 113 mm[Hg] Univer sity of pressure [facility] Diastolic blood 2022-05-16 14:24:00 71 mm[Hg] Unive rsity of pressure [facility] Heart rate 2022-05-16 14:24:00 84 /min [facility] Body height 2022-05-16 14:24:00 162.6 cm [facility] Body weight 2022-05-16 14:24:00 90.266 kg [facility] BMI 2022-05-16 14:24:00 34.16 kg/m2 [facility] Oxygen saturation in 2022-05-16 14:24:00 98 /min [facility] Arterial blood by [facility] Body weight 2022-05-16 13:20:00 90.266 kg [facility] BMI 2022-05-16 13:20:00 34.16 kg/m2 [facility] Systolic blood 2022-05-09 14:17:00 116 mm[Hg] Univer sity of pressure [facility] Diastolic blood 2022-05-09 14:17:00 80 mm[Hg] Unive rsity of pressure [facility] Heart rate 2022-05-09 14:17:00 79 /min [facility] ty [facility] Body temperature 2022-05-09 14:17:00 36.56 Lien Univ [facility] Respiratory rate 2022-05-09 14:17:00 18 /min Univ [facility] Body height 2022-05-09 14:17:00 162.6 cm [facility] Body weight 2022-05-09 14:17:00 88.451 kg [facility] BMI 2022-05-09 14:17:00 33.47 kg/m2 [facility] Systolic blood 2022-05-02 19:37:00 120 mm[Hg] Univer sity of pressure [facility] Diastolic blood 2022-05-02 19:37:00 82 mm[Hg] Unive rsity of pressure [facility] Heart rate 2022-05-02 19:37:00 85 /min [facility] ty [facility] Body temperature 2022-05-02 19:37:00 36.67 Lien Univ [facility] Respiratory rate 2022-05-02 19:37:00 18 /min Univ [facility] Body height 2022-05-02 19:37:00 162.6 cm [facility] Body weight 2022-05-02 19:37:00 88.905 kg [facility] BMI 2022-05-02 19:37:00 33.64 kg/m2 [facility] Systolic blood 2022-04-25 14:49:00 116 mm[Hg] Univer sity of pressure [facility] Diastolic blood 2022-04-25 14:49:00 76 mm[Hg] Unive rsity of pressure [facility] Heart rate 2022-04-25 14:49:00 77 /min [facility] Body temperature 2022-04-25 14:49:00 36.67 Lien Univ [facility] Respiratory rate 2022-04-25 14:49:00 18 /min Univ [facility] Body weight 2022-04-25 14:49:00 88.27 kg [facility] BMI 2022-04-25 14:49:00 33.39 kg/m2 [facility] Systolic blood 2022-04-11 20:50:00 135 mm[Hg] Univer sity of pressure [facility] Diastolic blood 2022-04-11 20:50:00 81 mm[Hg] Unive rsity of pressure [facility] Heart rate 2022-04-11 20:50:00 84 /min Universi ty of [facility] Oxygen saturation in 2022-04-11 20:50:00 99 /min University of Arterial blood by [facility] Pulse oxim[facility] Body height 2022-04-11 20:45:00 162.6 cm [facility] ty [facility] Body weight 2022-04-11 20:45:00 86.637 kg [facility] [place] BMI 2022-04-11 20:45:00 32.77 kg/m2 [facility] [place] Body temperature 2022-04-11 20:18:00 37.22 Lien Univ [facility] Respiratory rate 2022-04-11 20:18:00 18 /min Univ [facility] Systolic blood 2022-04-11 19:39:00 116 mm[Hg] Univer sity of pressure [facility] Diastolic blood 2022-04-11 19:39:00 75 mm[Hg] Unive rsity of pressure [facility] Heart rate 2022-04-11 19:39:00 90 /min [facility] ty [facility] [place] Body temperature 2022-04-11 19:39:00 37.06 Lien Univ [facility] Respiratory rate 2022-04-11 19:39:00 18 /min Univ ersity of [facility] Body height 2022-04-11 19:39:00 162.6 cm [facility]i ty [facility] Body weight 2022-04-11 19:39:00 88.083 kg [facility] BMI 2022-04-11 19:39:00 33.33 kg/m2 [facility] Oxygen saturation in 2022-04-11 19:39:00 97 /min University of Arterial blood by [facility] Pulse oximetry [facility] Systolic blood 2022-04-02 14:51:00 114 mm[Hg] Univer sity of pressure [facility] Diastolic blood 2022-04-02 14:51:00 73 mm[Hg] Unive rsity of pressure [facility] Heart rate 2022-04-02 14:51:00 82 /min Universi ty of [facility] Body temperature 2022-04-02 14:51:00 36.78 Lien Univ ersity of [facility] Respiratory rate 2022-04-02 14:51:00 18 /min Univ ersity of [facility] Body height 2022-04-02 14:51:00 162.6 cm Universi ty of [facility] Body weight 2022-04-02 14:51:00 89.812 kg Universi ty of [facility] BMI 2022-04-02 14:51:00 33.99 kg/m2 Universi ty of [facility] Systolic blood 2022-01-27 13:51:00 128 mm[Hg] Univer sity of pressure [facility] Diastolic blood 2022-01-27 13:51:00 88 mm[Hg] Unive rsity of pressure [facility] Heart rate 2022-01-27 13:51:00 77 /min Universi ty of [facility] Body temperature 2022-01-27 13:51:00 36.78 Lien Univ ersity of [facility] Respiratory rate 2022-01-27 13:51:00 18 /min Univ ersity of [facility] Body height 2022-01-27 13:51:00 162.6 cm [facility] Body weight 2022-01-27 13:51:00 86.864 kg [facility] BMI 2022-01-27 13:51:00 32.87 kg/m2 [facility] Procedures Procedure Date / Time Performing Clinician Source Performed DME/SUPPLY JUSTIFICATION 2022-10-14 05:01:00 Doctor Unassigned, [facility] LIPASE 2022-10-06 19:24:00 Ghanshyam Dawson [facility] MAGNESIUM 2022-10-06 19:24:00 Ghanshyam Dawson [facility] COMP. METABOLIC PANEL 2022-10-06 19:24:00 Ghanshyam Dawson [facility] ([id number]) Medical Branch CBC WITH DIFF 2022-10-06 19:24:00 Ghanshyam Dawson Sully [facility] URINALYSIS 2022-10-06 19:06:00 Singer Rodolfo [facility] CONSENT/REFUSAL FOR 2022-10-06 18:54:44 Doctor Unassigned, [facility] DIAGNOSIS AND TREATMENT [facility] PATIENT FINANCIAL 2022-10-06 18:17:23 Doctor Unassigned, [facility] POLICY [facility] CBC WITH DIFF 2022-09-12 06:45:00 Татьяна [facility] CBC WITH DIFF 2022-09-12 06:45:00 Татьяна [facility] SECTION 2022-09-11 13:54:00 Татьяна [facility] SECTION 2022-09-11 13:54:00 Татьяна [facility] CBC WITH DIFF 2022-09-11 12:22:00 Vaz [facility] CBC WITH DIFF 2022-09-11 12:22:00 [facility] CONSENT/REFUSAL FOR 2022-09-11 11:37:43 Doctor Unassigned, [facility] DIAGNOSIS AND TREATMENT [facility] [place] CBC WITH DIFF 2022-09-09 16:15:00 Татьяна [facility] HB ABO GROUPING 2022-09-09 16:15:00 Vaz [facility] RHO (D) IMMUNE GLOBULIN 2022-09-09 16:15:00 [facility] RHO (D) IMMUNE GLOBULIN 2022-09-09 16:15:00 [facility] POCT URINALYSIS W/O 2022-09-05 00:00:00 Rebekah Vaz [facility] SPECIFIC GRAVITY [facility] Branch CBC WITH DIFF 2022-09-04 06:35:00 Татьяна [facility] ADC OR ROXANN AHMADI - RPR 2022-09-04 06:35:00 Rebekah Vaz Un [facility] HIV 1/2 AG-AB WITH REFLEX 2022-09-04 06:35:00 Rebekha Vaz Un [facility] HB ABO GROUPING 2022-09-04 06:30:00 Rebekah Vaz [facility] NON-STRESS TEST 2022-08-29 18:16:56 Rebekah Vaz [facility] DSU PRE-OP 2022-08-29 06:01:00 Doctor Unassigned, [facility] [place] DME/SUPPLY JUSTIFICATION 2022-08-27 06:01:00 Doctor Unassigned, [facility] DME/SUPPLY JUSTIFICATION 2022-08-20 06:01:00 Doctor Evans, [facility] DME/SUPPLY JUSTIFICATION 2022-08-15 06:01:00 Doctor Evans, [facility] POCT URINALYSIS W/O 2022-08-14 00:00:00 Rebekah Vaz [facility] URINALYSIS 2022-08-12 02:16:00 Breann Mendez [facility] US BIOPHYSICAL 2022-07-31 01:18:40 Rebekah Vaz [facility] URINALYSIS 2022-07-31 00:37:00 Rebekah Vaz [facility] ADC CLC OR LCC ONLY - WET 2022-07-31 00:37:[address] [facility] POCT URINALYSIS W/O 2022-07-31 00:00:00 Rebekah Vaz [facility] CONSENT/REFUSAL FOR 2022-07-30 07:26:21 Doctor Unajorge alberto, [facility] DIAGNOSIS AND TREATMENT [facility] [place] EMERGENCY SERVICES 2022-07-30 06:01:00 Doctor Evans, [facility] AGREEMENTS AND [facility] [place] AUTHORIZATIONS POCT MOLECULAR FLU 2022-07-18 17:36:00 Unknown, Attending [facility] POCT MOLECULAR STREP 2022-07-18 17:32:00 Unknown, Attending [facility] POCT URINALYSIS W/O 2022-07-18 00:00:00 Angelo Rodriguez [facility] US HEAD NECK 2022-07-03 16:58:42 Carolyn Amato [facility] URINE CULTURE 2022-07-01 17:12:00 [facility] GC & CHLAMYDIA AMPLIFIED 2022-07-01 17:12:00 Adum, Kassidy [facility] GALV ONLY - VAGINAL 2022-07-01 17:12:00 Adum, [facility] PATHOGENS BY NUCLEIC ACID Medica l Branch TESTING POCT URINALYSIS W/O 2022-07-01 00:00:00 Adum, Kassidy [facility] STERILIZATION CONSENT 2022-06-20 06:01:00 Doctor Unassigned, [facility] POCT URINALYSIS W/O 2022-06-20 00:00:00 Rebekah Vaz [facility] SECOND AND THIRD 2022-05-27 19:01:00 Татьяна [facility] ULTRASOUND Medical [facility] EXTERNAL PROVIDER RECORDS 2022-05-20 05:01:00 Doctor Evans, [facility] Name [facility] SECOND AND THIRD 2022-05-12 19:14:[address] [facility] TRIMESTER ULTRASOUND [facility] URINE CULTURE 2022-05-02 21:31:00 Татьяна [facility] FLU VACC (), 6 2022-05-02 19:55:18 Rebekah Vaz [facility] MO-64 YRS, .5ML, IM, QUAD Medica l Branch (FLUCELVAX) POCT URINALYSIS W/O 2022-05-02 00:00:00 Rebekah Vaz [facility] [place] EXTERNAL PROVIDER RECORDS 2022-04-24 05:01:00 Doctor Unajorge alberto, [facility] Name [facility] [place] MEDICATION CORRESPONDENCE 2022-04-15 05:01:00 [facility] [place] URINALYSIS 2022-04-11 21:14:00 Rebekah Vaz [place] [facility] ADC CLC OR LCC ONLY - WET 2022-04-11 21:14:00 Rebekah Vaz [facility] CONSENT/REFUSAL FOR 2022-04-11 20:18:44 Doctor Krueger [facility] DIAGNOSIS AND TREATMENT [facility] AUTHORIZATION TO RELEASE 2022-04-02 05:01:00 Doctor Krueger [facility] PHI TO [facility] POCT URINALYSIS W/O 2022-04-02 00:00:00 Rebekah Vaz [facility] COMPUTER SECURITY COORDINATOR CLINIC ULTRASOUND 2022-02-06 05:01:00 Doctor Krueger [facility] <14 WEEKS US 2022-01-27 15:40:51 Jamila Zaldivar [facility] URINE DRUG (IMMUNOASSAY) 2022-01-27 14:08:00 Jamila Zaldivar [facility] SCREEN URINE CULTURE 2022-01-27 14:08:00 Jamila Zaldivar [facility] GC & CHLAMYDIA AMPLIFIED 2022-01-27 14:08:00 Jamila Zaldivar [facility] TRICHOMONAS AMPLIFIED 2022-01-27 14:08:00 Jamila Zaldivar [facility] POCT TEST 2022-01-27 00:00:00 Jamila Zaldivar [facility] POCT URINALYSIS W/O 2022-01-27 00:00:00 Jamila Zaldivar [facility] Encounters Start End Encounter Admission Attending Care Care Encounter Source Date/Time Date/Time Type Type Clinicians Facility Department ID 2022-08-12 Outpatient P [facility] [id number] [facility] Outpatient X [facility] [id number] Univers 19:02[facility] 2021-06-03 Outpatient [facility] [id number] Univers 18:52:17 [facility] 2021-06-03 Outpatient P [facility] [id number] Univers 07:14:53 [facility] 2021-06-03 Outpatient [facility] [id number] Univers 07:14:18 [facility] 2021-06-03 Emergency [facility] [id number] Univers 04:49:13 [facility] 2021-06-02 Emergency [facility] [id number] Univers 09:17:44 [facility] 2022-11-07 2022-11-07 Outpatient R ТАТЬЯНА REBEKAH [facility] [id number] Univers 11:00:00 11:00:00 [facility] 2022-10-14 2022-10-14 Orders Doctor ADRIÁN 1.2.840.114 [id number] Univers 00:00:00 00:00:00 Only Unassigned, BAILEY 350.1.13.10 ity of Croom [facility] 4.2.7.2.686 Marty as [id number] [place] [address] Branch 2022-10-13 2022-10-13 Telephone Татьяна [facility] 1.2.840.114 10 [id number] Univers 00:00:00 00:00:00 Cam ROLANDO 350.1.13.10 i [place] [phone] Ga dical [address] 2022-10-10 2022-10-10 Outpatient R REBEKAH VAZ [facility] [id number] Univers 11:00:00 11:46:39 [facility] 2022-10-10 2022-10-10 Routine Татьяна [facility] 1.2.840.114 10 [id number] Univers 11:00:00 11:46:39 Cam CLAUDIA 350.1.13.10 i ty of Visit [place] [id number] [address] 2022-10-06 2022-10-06 Emergency X Ghanshyam DAWSON [facility] ERT [id number] Univers 13:08:00 17:39:00 ity of [facility] 2022-10-06 2022-10-06 Emergency Ghanshyam Dawson [facility] 1.2.840.114 10 [id number] Univers 13:08:00 17:39:00 Sully MARSHALL 350.1.13.10 i ty of [place]AH[place] 4.2.7.2.686 [facility] [id number] [facility] 084 Branch 2022-10-06 2022-10-06 Urgent DanielKip [facility] 1.2.840.11 4 [id number] Univers 12:20:00 12:40:00 Care Unknown, Attending [facility] 350.1.13.10 ity of [place] 4.2.7.2.686 Marty as EMMETT?BLEA [id number] Ga dical [address] MEDICAL OFFICE BUILDING 2022-10-06 2022-10-06 Outpatient R CLAUDIA [facility] [id number] Univers 12:20:00 12:20:00 REENU ity [facility] 2022-10-06 2022-10-06 Orders Doctor ADRIÁN 1.2.840.114 [id number] Univers 00:00:00 00:00:00 Only Unassigned, BAILEY 350.1.13.10 ity of Croom HOSPITAL 4.2.7.2.686 Marty as [id number] [facility] 009 Branch 2022-09-26 2022-09-26 Telephone Demarco [facility] FAT[facility] 1.2.840.114 10 [id number] Univers 00:00:00 00:00:00 Severo TAYLOR 350.1.13.10 it y [place] [id number] [facility] 134 Branch 2022-09-19 2022-09-19 Outpatient R ANGELO RODRIGUEZ [facility] B [id number] Univers 10:45:00 11:07:02 ANGELO RODRIGUEZ [facility] 2022-09-19 2022-09-19 Routine Phu [facility] 1.2.840.114 [id number] Univers 10:45:00 11:07:02 Angelo TAYLOR 350.1.13.10 i ty of Visit WOMEN'S 4.2.7.2.[address] [facility] [id number] Medi [address] 2022-09-19 2022-09-19 Letter [facility] 1.2.840.114 10 [id number] Univers 00:00:00 00:00:00 (Out) Angelo MARSHALL 350.1.13.10 i ty of [place] 4.2.7.2.686 [facility] PROFESSIO [phone] Ga dical [facility] 225 [facility] 2022-09-19 2022-09-19 Telephone [facility] 1.2.840.11 4 [id number] Univers 00:00:00 00:00:00 Angelo TAYLOR 350.1.13.10 it y of [facility] 4.2.7.2.[address] [facility] [id number] [address] 2022-09-14 2022-09-14 Nurse Niki Mann 1.2.840.114 10 [id number] Univers 00:00:00 00:00:00 Triage BAILEY 350.1.13.10 it y of HOSPITAL 4.2.7.2.686 Marty [id number] [facility] 019 [place] 2022-09-11 2022-09-12 Inpatient U VAZ [facility] [id number] Univers 05:42:00 13:45:00 ity of [facility] 2022-09-11 2022-09-12 Hospital Vaz [facility] 1.2.840.114 [id number] Univers 05:42:00 13:45:00 Encounter Yonathan MARSHALL 350.1.13.10 ity of [place] 4.2.7.2.686 [facility] [id number] [facility] 083 [place] 2022-09-11 2022-09-11 Surgery Vaz [facility] 1.2.924.481 [id number] Univers 07:50:00 09:49:00 Cam [place] 350.1.13.10 i ty of [place] 4.2.7.2.686 [facility] [id number] [facility] 013 [place] 2022-09-11 2022-09-11 Anesthesia Ruben Sibley [facility] 1.2.840.1 14 [id number] Univers 08:08:00 09:45:00 Event AlkyleeJeremie Riojas ROLANDO 35 0.1.13.10 ity of [place] 4.2.7.2.686 [facility] [id number] [facility] 013 Branch 2022-09-11 2022-09-11 Orders Doctor ADRIÁN 1.2.840.114 [id number] Univers 00:00:00 00:00:00 Only Unassigned, BAILEY 350.1.13.10 ity of Croom [facility] 4.2.7.2.686 Marty [id number] [facility] 009 Branch 2022-09-09 2022-09-09 Digital Sales Assistant David, Adc Lab Main [facility] 1.2.8 40.114 [id number] Univers 10:15:00 10:30:00 Visit Rebekah Vaz 350.1.13.10 ity of [facility] 4.2.7.2.686 [facility] PROFESSIO [phone] Ga dical [facility] 353 [facility] 2022-09-09 2022-09-09 Outpatient R REBEKAH VAZ [facility] [id number] Univers 10:15:00 10:15:00 ity of [facility] 2022-09-05 2022-09-05 Outpatient R REBEKAH VAZ [facility] [id number] Univers 14:00:00 14:14:35 ity of [facility] 2022-09-05 2022-09-05 Routine Rebekah Vaz [facility] 1.2.840.114 10 [id number] Univers 14:00:00 14:14:35 Yonathan TAYLOR 350.1.13.10 i ty of Visit WOMEN'S 4.2.7.2.[address] [facility] [id number] [facility] 134 Branch 2022-09-03 2022-09-04 Outpatient X ТАТЬЯНА REBEKAH [facility] [id number] Univers 23:22:00 02:50:00 ity of [facility] 2022-09-03 2022-09-04 Emergency Rebekah Vaz [facility] 1.2.840.114 10 [id number] Univers 23:22:00 02:50:00 Yonathan MARSHALL 350.1.13.10 i ty of [place] 4.2.7.2.686 [facility] [id number] [facility] 083 Branch 2022-09-03 2022-09-03 Digital Sales Assistant Ultrasound, [place] [facility] 1.2 .840.114 [id number] Univers 09:45:00 10:15:00 Visit DominicShawn manzano COMPUTER SECURITY COORDINATOR 350.1.13.10 ity of Severo Mcclellan [facility] 4.2.7.2.686 [place] MATERNAL [id number] Med ical & CHILD [address] [place] [address] 2022-09-03 2022-09-03 Outpatient P SEVERO MCCLELLAN [facility] [id number] Univers 09:45:00 09:45:00 SEVERO MCCLELLAN [facility] 2022-09-03 2022-09-03 Nurse ADRIÁN Wright 1.2.840.114 [id number] Univers 00:00:00 00:00:00 Triage Chessica T BAILEY 350.1.13.10 ity of HOSPITAL 4.2.7.2.686 Marty as [id number] [facility] 019 Branch 2022-08-29 2022-08-29 Outpatient R REBEKAH VAZ [facility] [id number] Univers 11:00:00 12:14:43 ity of [facility] 2022-08-29 2022-08-29 [facility] 1.2.840.114 [id number] Univers 11:00:00 12:14:43 Yonathan TAYLOR 350.1.13.10 i ty of Visit WOMEN'S 4.2.7.2.[address] [facility] [id number] [facility] 134 Branch 2022-08-29 2022-08-29 Orders Doctor ADRIÁN 1.2.840.114 [id number] Univers 00:00:00 00:00:00 Only Unassigned, BAILEY 350.1.13.10 ity of [facility] HOSPITAL 4.2.7.2.686 Marty as [id number] [facility] 009 Branch 2022-08-27 2022-08-27 Telephone Rebekah Vaz [facility] 1.2.840.114 10 [id number] Univers 00:00:00 00:00:00 Yonathan MARSHALL 350.1.13.10 i ty of [place] [id number] Ga dical NAL 134 Branch BUILDING 2022-08-27 2022-08-27 Telephone Rebekah Vaz [facility] 1.2.840.114 10 [id number] Univers 00:00:00 00:00:00 Cam ROLANDO 350.1.13.10 i ty of [facility] 4.2.7.2.[place] [id number] Ga dical NAL 134 [facility] 2022-08-27 2022-08-27 Orders Doctor ADRIÁN 1.2.840.114 [id number] Univers 00:00:00 00:00:00 Only Unassigned, BAILEY 350.1.13.10 ity of [facility]room HOSPITAL 4.2.7.2.686 Marty as [id number] [address] 2022-08-23 2022-08-23 Nurse ADRIÁN Norton 1.2.840.114 [id number] Univers 00:00:00 00:00:00 Triage Valarie AVALOS 350.1.13.10 ity of HOSPITAL 4.2.7.2.686 Marty as [id number] [facility] 019 [place] 2022-08-22 2022-08-22 Letter ADRIÁN Wills 1.2.840.114 [id number] Univers 00:00:00 00:00:00 (Out) Trinity AVALOS 350.1.13.10 it y of HOSPITAL 4.2.7.2.686 Marty as [id number] [address] 2022-08-21 2022-08-21 Outpatient R LELA [facility] [id number] Univers 18:40:00 19:09:45 RANIA ity of [facility] 2022-08-21 2022-08-21 Urgent Cecelia Vogel [facility] 1.2.840.114 [id number] Univers 18:40:00 19:09:45 Care Unknown, Attending HEALTH 350.1.13.10 ity of [place] 4.2.7.2.686 Marty as EMMETT?BLEA [phone] Ga dical KNEY [address] [place] MEDICAL OFFICE BUILDING 2022-08-212022-08-21 Letter Provider, [facility] 1.2.834.720 [id number] Univers 00:00:00 00:00:00 (Out) Ang [facility] 350.1.13.10 it y of Urgent Care [place] 4.2.7.2.686 [place] EMMETT?BLEA [phone] Ga dical KNEY [address] [place] MEDICAL OFFICE BUILDING 2022-08-20 2022-08-20 Telephone Rebekah Vaz [facility] 1.2.840.114 [id number] Univers 00:00:00 00:00:00 Cam CLAUDIA 350.1.13.10 it [place] [id number] [facility] 134 [place] 2022-08-20 2022-08-20 Orders Doctor ADRIÁN 1.2.840.114 [id number] Univers 00:00:00 00:00:00 Only Unassigned, BAILEY 350.1.13.10 ity of [facility] HOSPITAL 4.2.7.2.686 Marty as [id number] [address] 2022-08-15 2022-08-15 Outpatient R DEE [facility] [id number] Univers 11:00:00 11:00:00 ROD anglin of [facility] 2022-08-15 2022-08-15 Orders Doctor ADRIÁN 1.2.840.114 [id number] Univers 00:00:00 00:00:00 Only Unassigned, BAILEY 350.1.13.10 ity of Croom [facility] 4.2.7.2.686 Marty as [id number] [address] 2022-08-14 2022-08-14 Outpatient R REBEKAH VAZ [facility] [id number] Univers 09:45:00 10:43:25 ity of [facility] 2022-08-14 2022-08-14 Routine Rebekah Vaz [facility] 1.2.979.890 [id number] Univers 09:45:00 10:43:25 Cam ROLANDO 350.1.13.10 ity of [place] [id number] Ga dical [facility] 134 [facility] 2022-08-112022-08-12 Outpatient P LIALGINA [facility] [id number] Univers 18:26:00 00:00:00 CHASEY ity [facility] 2022-08-11 2022-08-12 [facility] Shawn Levy ADRIÁN 1.2.840.1 14 [id number] Univers 18:26:00 00:00:00 Encounter Susanna Woo 350. 1.13.10 ity [facility] 4.2.7.2.686 [place] as [id number] [address] 2022-08-11 2022-08-11 Telephone Pcp, [facility] 1.2.409.067 [id number] Univers 00:00:00 00:00:00 Patient COMPUTER SECURITY COORDINATOR 350.1.13.10 it y of [facility] [place].7.2.686 [place] MATERNAL [id number] Med ical & CHILD 107 [facility] 2022-08-06 2022-08-06 Digital Sales Assistant [facility] 1.2 .840.114 [id number] Univers 09:30:00 10:00:00 Visit Shawn Levy COMPUTER SECURITY COORDINATOR 350.1.13.10 [facility] 4.2.7.2.686 [place] as MATERNAL [id number] Med ical & CHILD 369 [facility] 2022-08-06 2022-08-06 Outpatient P DOMINIC [facility] [id number] Univers 09:30:00 09:30:00 SHAWN ity [facility] 2022-07-31 2022-07-31 Digital Sales Assistant 2, Adc Lab [facility] 1.2.840.114 [id number] Univers 09:45:00 10:00:00 Visit [facility]bekah [facility].1.13.10 [facility] [place].7.2.[place] [id number] [address] 2022-07-31 2022-07-31 Outpatient R REBEKAH VAZ [facility] [id number] Univers 09:00:00 09:29:39 ity [facility] 2022-07-31 2022-07-31 Routine Rebekah Vaz [facility] 1.2.325.356 [id number] Univers 09:00:00 09:29:39 Yonathan MARSHALL 350.1.13.10 ity of [place] [id number] Ga dical [address] 2022-07-30 2022-07-30 Outpatient P REBEKAH VAZ [facility] CH[facility] [id number] Univers 16:50:00 19:59:00 ity of [facility] 2022-07-30 2022-07-30 [facility] Rebekah Vaz [facility] 1.2.840.114 [id number] Univers 16:50:00 19:59:00 Encounter Yonathan MARSHALL 350.1.13.10 [place]y of [place] [id number] [place] 835583 [place] 2022-07-30 2022-07-30 Emergency [facility] ERT [id number] Univers 01:40:00 02:13:00 CHRISTOPHER it y of [facility] 2022-07-30 2022-07-30 Emergency [place], [facility] 1.2.897.067 [id number] Univers 01:40:00 02:13:00 Christguerrero MARSHALL 350.1.13.10 ity of [place].2.[place] [id number] [place] 835584 [place] 2022-07-30 2022-07-30 Telephone Rebekah Vaz [facility] 1.2.840.114 [id number] Univers 00:00:00 00:00:00 Yonathan MARSHALL 350.1.13.10 i ty of [place] [id number] Ga dic[address] 2022-07-24 2022-07-24 Telephone Rebekah Vaz [facility] 1.2.840.114 [id number] Univers 00:00:00 00:00:00 Yonathan TAYLOR 350.1.13.10 it y of W[place] 4.[place].7.2.[place] [id number] [address] 2022-07-22 2022-07-22 Telephone [facility] 1.2.840.11 4 [id number] Univers 00:00:00 00:00:00 Angelo TAYLOR 350.1.13.10 it y of W[place] 4[place]2.7.2.[place] [id number] [address] 2022-07-18 2022-07-18 Urgent [place] Guerrero [facility] 1.2.840.114 [id number] Univers 11:00:00 11:20:00 Care Unknown, Attending HEALTH 350.1.13.10 ity of [facility] 4.2.7.2.686 Marty as EMMETT?BLEA [id number] [address] MEDICAL OFFICE BUILDING 2022-07-18 2022-07-18 Routine [facility] 1.2.840.114 [id number] Univers 10:00:00 10:00:00 Angelo TAYLOR 350.1.13.10 i ty of Visit [place] [phone] [address] 2022-07-18 2022-07-18 Outpatient R ANGELO RODRIGUEZ [facility] B [id number] Univers 10:00:00 09:09:37 GENTRYANGELO SINGLETON corona [facility] 2022-07-18 2022-07-18 Letter Vernon Gonzalez [facility] 1.2.840.114 [id number] Univers 00:00:00 00:00:00 (Out) HEALTH 350.1.13.10 it y of [place] 4.2.7.2.686 Marty as EMMETT?BLEA [phone] [place] [address] MEDICAL OFFICE BUILDING 2022-07-11 2022-07-11 Outpatient R DEE [facility] [id number] Univers 10:00:00 10:00:00 ROD anglin [facility] 2022-07-09 2022-07-09 Digital Sales Assistant Ultrasound, [facility] 1.2 .840.114 [id number] Univers 09:30:00 10:00:00 Visit Shawn Levy COMPUTER SECURITY COORDINATOR 350.1.13.10 ity of [facility] 4.2.7.2.686 Marty as MATERNAL [phone] Med ical & CHILD [address] [place] [address] 2022-07-09 2022-07-09 Outpatient P DOMINIC [facility] [id number] Univers 09:30:00 09:30:00 [facility] 2022-07-03 Outpatient R LM [facility] [id number] Univers 10:10:36 23:59:00 CAROLYN ity [facility] 2022-07-03 2022-07-03 [facility] 1.2.840.114 [id number] Univers 10:10:36 23:59:00 Encounter Carolyn MARSHALL 350.1.13.10 ity [facility] 4[place]2.7.2.[place] [id number] [facility] [address] [place] 2022-07-01 2022-07-01 Outpatient R MIGUEL ANGEL [facility] [id number] Univers 10:15:00 11:12:59 [facility]01 2022-07-01 [facility] 1.2.336.639 [id number] Univers 10:15:00 11:12:59 Kassidy TAYLOR 350.1.13.10 ity of Visit [place] [id number] [address] 2022-07-01 2022-07-01 Telephone Rebekah Vaz [facility] 1.2.840.114 [id number] Univers 00:00:00 00:00:00 Yonathan MARSHALL 350.1.13.10 i ty of [place] [id number] Ga dical [address] 2022-06-30 2022-06-30 Outpatient R MAICO SAINI [facility] [id number] Univers 13:45:00 14:24:52 ity of [facility] 2022-06-30 2022-06-30 Telemedici Makayla Lechuga [facility] 1.2.8 40.114 [id number] Univers 13:45:00 14:24:52 ne Visit Parveen Maico Doyle COMPUTER SECURITY COORDINATOR 350.1.13.10 ity of [facility] 4.2.7.2.686 Marty as MATERNAL [id number] Med ical & CHILD 125 [facility] 2022-06-30 2022-06-30 Digital Sales Assistant Mehdi Hernandez Lab Main [facility] 1.2.8 40.114 [id number] Univers 09:45:00 10:00:00 Visit Rebekah Vaz 350.1.13.10 ity [facility] 4.2.7.2.[place] [id number] [facility] 353 [facility] 2022-06-30 2022-06-30 Nurse ADRIÁN Schultz 1.2.840.114 [id number] Univers 00:00:00 00:00:00 Triage Jennifer [place] 350.1.13.10 it y of [facility] 4.2.7.2.686 Marty as [id number] [facility] [address] [place] 2022-06-25 2022-06-[address] [facility] 1.2.324.052 [id number] Univers 00:00:00 00:00:[address] [facility] 350.1.13.10 ity of [facility] 4.2.7.2.[place] [id number] [facility] [address] [place] 2022-06-23 2022-06-24 Outpatient R FANTASMA [facility] [id number] Univers 13:00:00 10:54:16 YENNY it y of JOHNNA Zhao [facility] 2022-06-23 2022-06-24 Telemedici Faculty, [facility] 1.2.840.114 [id number] Univers 13:00:00 10:54:16 ne Visit Johnna Chowdhury COMPUTER SECURITY COORDINATOR 350.1 .13.10 ity of [facility] 4.2.7.2.686 [place] as MATERNAL [id number] Med ical & CHILD 107 [facility] 2022-06-20 2022-06-20 Outpatient R REBEKAH VAZ [facility] [id number] Univers 09:15:00 10:20:21 ity of [facility] 2022-06-20 2022-06-20 Routine Rebekah Vaz ALANTONELLA LAINEZ 1.2.840.114 97 [id number] Univers 09:15:00 10:20:21 Yonathan TAYLOR 350.1.13.10 i ty of Visit [place] 4.[place] [id number] [address] 2022-06-20 2022-06-20 Orders Doctor ADRIÁN 1.2.840.114 [id number] Univers 00:00:00 00:00:00 Only Unassigned, BAILEY 350.1.13.10 ity of Croom [facility] 4.2.7.2.686 Marty as [id number] [address] 2022-06-19 2022-06-19 Telephone Rebekah Vaz [facility] 1.2.840.114 [id number] Univers 00:00:00 00:00:00 Yonathan MARSHALL 350.1.13.10 i ty of [facility] 4.2.7.2.[place] [id number] Ga dical [address] 2022-06-19 2022-06-19 Telephone Rebekah Vaz ALANTONELL[facility] FATOU 1.2.840.114 [id number] Univers 00:00:00 00:00:00 Yonathan TAYLOR 350.1.13.10 it y of [place] [id number] [address] 2022-06-11 2022-06-11 Outpatient P [facility] [id number] Univers 09:30:00 09:30:00 ity of [facility] 2022-05-30 2022-05-30 Outpatient R REBEKAH VAZ [facility] [id number] Univers 09:00:00 09:00:00 ity of [facility] 2022-05-27 2022-05-27 Digital Sales Assistant Ultrasound, Mehdi [facility] 1.2 .840.114 [id number] Univers 13:45:00 14:30:51 Visit Rebekah Vaz 350.1.13.10 ity of Johnna Chowdhury 4.2.7.2. 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 10 ity of [facility] 4.2.7.2.686 Marty as MATERNAL [id number] Med ical & CHILD [address] [place] [address] 2022-05-26 2022-05-26 Telephone [facility] 1.2.840.114 97 [id number] Univers 00:00:00 00:00:00 [facility] 350.1.13.10 it y of [place] 4.2.7.2.686 Marty as EMMETT?BLEA [id number] Ga diclala MYERS [address] [place] MEDICAL OFFICE BUILDING 2022-05-23 2022-05-23 Outpatient R REBEKAH VAZ [facility] [id number] Univers 09:15:00 09:17:22 ity of [facility] 2022-05-23 2022-05-23 Routine Rebekah Vaz [facility] LAINE[facility] 1.2.840.114 97 [id number] Univers 09:15:00 09:17:22 Yonathan TAYLOR 350.1.13.10 i ty of [place] 4.2.[place] [id number] [address] 2022-05-23 2022-05-23 Letter Rebekah Vaz [facility]ANTONELL[facility] LAINEZ 1.2.840.114 97 [id number] Univers 00:00:00 00:00:00 (Out) Yonathan TAYLOR 350.1.13.10 it y of [place] [id number] [address] 2022-05-21 2022-05-21 Outpatient R GENTRYANGELO [facility] B [id number] Univers 15:00:00 15:39:34 VIOLETAANGELO RENE ity of [facility] 2022-05-21 2022-05-21 Routine [facility] 1.2.840.114 [id number] Univers 15:00:00 15:39:34 Angelo TAYLOR 350.1.13.10 i ty of Visit W[place]'S 4.2.7.2.686 [place] HE[place] [id number] [address] 2022-05-21 2022-05-21 Letter [facility] 1.2.840.114 [id number] Univers 00:00:00 00:00:00 (Out) Angelo TAYLOR 350.1.13.10 it y of [facility] 4.2.7.2.686 [facility] [id number] [address] 2022-05-20 2022-05-20 Orders Doctor ADRIÁN 1.2.840.114 [id number] Univers 00:00:00 00:00:00 Only Unassigned, BAILEY 350.1.13.10 ity of Croom [facility] 4.2.7.2.686 Marty as [id number] [address] 2022-05-19 2022-05-19 Telephone Rebekah Vaz [facility] 1.2.840.114 [id number] Univers 00:00:00 00:00:00 Yonathan TAYLOR 350.1.13.10 it y of [place] [id number] [address] 2022-05-16 2022-05-16 Digital Sales Assistant Lab, Poncho - Lobo [facility] 1.2.840.1 14 [id number] Univers 11:15:00 11:15:00 Visit Rod Price [facility] 350.1.13.10 ity of [place] 4.2.7.2.686 Marty as EMMETT?BLEA [id number] Ga marcela [address] MEDICAL OFFICE BUILDING 2022-05-16 2022-05-16 Outpatient R DEE [facility] [id number] Univers 10:30:00 10:30:00 ROD anglin [facility] 2022-05-16 2022-05-16 Office [facility] 1.2.984.956 [id number] Univers 10:30:00 10:30:00 Visit Rod CANDELARIA 350.1.13.10 it y of [place] 4.2.7.2.686 Marty as EMMETT?BLEA [id number] [address] MEDICAL OFFICE [facility] 2022-05-16 2022-05-16 Nurse Nurse, Rusty [facility] 1.2.840.114 [id number] Univers 09:00:00 09:15:00 Visit Rebekah Vaz 350.1.13.10 ity of [place] 4[place]2.[place] [id number] [place] [address] 2022-05-16 2022-05-16 Letter [facility] 1.2.605.137 [id number] Univers 00:00:00 00:00:00 (Out) Rod CANDELARIA 350.1.13.10 it y of [place] 4.2.7.2.686 Marty as EMMETT?BLEA [id number] [address] MEDICAL OFFICE [facility] 2022-05-12 2022-05-12 Digital Sales Assistant 1, [facility] Room UNIVERSIT 1 .2.840.114 [id number] Univers 13:30:00 14:29:00 Visit Severo Mcclellan HEALTH 350.1.13.10 ity of CLINICS 4.2.7.2.[place] [id number] [facility] [address] 2022-05-12 2022-05-12 Outpatient P SEVERO MCCLELLAN [facility] [id number] Univers 13:30:00 13:30:00 SEVERO MCCLELLAN [facility] 2022-05-10 2022-05-10 Nurse ADRIÁN Huber 1.2.840.114 [id number] Univers 00:00:00 00:00:00 Triage Christine AVALOS 350.1.13.10 it y of [facility] 4.2.7.2.686 Marty as [id number] [facility] [address] [place] 2022-05-09 2022-05-09 Outpatient R REBEKAH VAZ [facility] [id number] Univers 09:00:00 09:15:22 ity of [facility] 2022-05-09 2022-05-09 Nurse Nurse, Lkj [facility] 1.2.840.114 [id number] Univers 09:00:00 09:15:22 Visit Rebekah Vaz 350.1.13.[address] [facility] 4.2.7.2.[place] [id number] [facility] [address] [place] 2022-05-09 2022-05-09 Telephone Dee [facility] 1.2.840.114 97 [id number] Univers 00:00:00 00:00:00 Rod [facility] 350.1.13.10 it y of [place] 4.2.7.2.686 Marty as EMMETT?BLEA [id number] Ga marcela MYERS [address] [place] MEDICAL OFFICE [facility] 2022-05-05 2022-05-05 Digital Sales Assistant David, Adc Lab Main [facility] 1.2.8 40.114 [id number] Univers 13:45:00 14:00:00 Visit Aydin Ferrera 350.1.13.10 ity of Татьяна Rebekahteo [place] 4.2.7.2.686 [place] PROFESSIO [id number] Ga diclala WALSH 353 [facility] 2022-05-05 2022-05-05 Outpatient R REBEKAH VAZ [facility] [id number] Univers 13:45:00 13:45:00 ity of [facility] 2022-05-05 2022-05-05 Telephone Татьяна [facility] 1.2.840.114 [id number] Univers 00:00:00 00:00:00 Yonathan MARSHALL 350.1.13.10 i ty of [facility] 4.2.7.2.686 [place] [phone] Ga dical NAL 134 [facility] 2022-05-02 2022-05-02 Outpatient R REBEKAH VAZ [facility] [id number] Univers 14:30:00 16:22:52 ity of [facility] 2022-05-02 2022-05-02 Routine Rebekah Vaz [facility] 1.2.840.114 96 [id number] Univers 14:30:00 16:22:52 Yonathan TAYLOR 350.1.13.10 i ty of Visit [place] 4.2.7.2.[place] [id number] [address] 2022-04-28 2022-04-28 Outpatient P ULICES [facility] [id number] Univers 14:15:00 15:28:24 JULIAN ity [facility] 2022-04-28 2022-04-28 Digital Sales Assistant 2, [facility] Us Room UNIVERSIT 1 .2.840.114 [id number] Univers 14:15:00 14:45:00 Visit Julian Elena Y HEALTH 350.1.13. 10 ity of CLINICS 4.2.7.2.[place] [id number] [address] 2022-04-28 2022-04-28 Telephone Jamila Zaldivar [facility] 1.2.840.11 4 [id number] Univers 00:00:00 00:00:00 CLAUDIA 350.1.13.10 it y [place] [id number] [address] 2022-04-25 2022-04-25 Nurse Nurse, [facility] 1.2.840.114 [id number] Univers 10:00:00 10:00:00 Visit Rebekah Vaz 350.1.13.10 ity of [place] 4.2.7.2.[place] [id number] Ga dical [address] 2022-04-25 2022-04-25 Outpatient R ТАТЬЯНАDARSHANEN [facility] [id number] Univers 10:00:00 09:46:21 ity of [facility] 2022-04-24 2022-04-24 Orders Doctor SAMPSON 1.2.840.114 [id number] Univers 00:00:00 00:00:00 Only Unassigned, BAILEY 350.1.13.10 ity of [place] [facility] 4.2.7.2.686 Marty as [id number] [facility] [address] 2022-04-22 2022-04-22 Telephone Rebekah Vaz [facility] 1.2.840.114 96 [id number] Univers 00:00:00 00:00:00 Cam ANGLEKENNETH 350.1.13.10 i ty of [facility] 4.2.7.2.686 [place] [id number] [facility] 134 [facility] 2022-04-18 2022-04-18 Telephone Rebekah Vaz [facility] 1.2.840.114 96 [id number] Univers 00:00:00 00:00:00 Cam [place] 350.1.13.10 i ty of [facility] 4.2.7.2.686 [place] [id number] Ga dic[address] 2022-04-15 2022-04-15 Orders Doctor ADRIÁN 1.2.840.114 [id number] Univers 00:00:00 00:00:00 Only Unassigned, BAILEY 350.1.13.10 ity of [place] [facility]PITAL 4.2.7.2.686 Marty as [id number] [address] 2022-04-14 2022-04-14 Patient Jaxon [facility] 1.2.840.114 [id number] Univers 00:00:00 00:00:00 Secure Msg Ana Cristina TIMOTHYKENNETH 350.1.13.10 ity of [facility] 4.2.7.2.686 [place] [id number] [address] 2022-04-13 2022-04-13 Case REID Hoskins 1.2.450.289 [id number] Univers 00:00:00 00:00:00 Management Conchita PEDIATRIC 350.1.13.10 ity of [place] 4.2.7.2.686 [place] AD[place] [id number] [address] CARE CLINIC 2022-04-11 2022-04-11 Outpatient X REBEKAH VAZ [facility] CHRISTOPHER [id number] Univers 15:23:00 19:00:00 ity of [facility] 2022-04-11 2022-04-11 Emergency Wicho Boateng [facility] 1.2.840.1 14 [id number] Univers 15:23:00 19:00:00 Jamila ZaldivarKENNETH 350.1.13.10 ity of Rebekah Vaz 4.2.7.2.686 [facility] [id number] [facility] [address] [place] 2022-04-11 2022-04-11 Nurse Nurse, [facility] 1.2.840.114 [id number] Univers 14:45:00 15:05:00 Visit MichaelakCecelia garcias [facility] 350.1.13.10 ity of [place] 4.2.7.2.686 Marty as EMMETT?BLEA [id number] Ga marcela ALCANTARA [address] [place] MEDICAL OFFICE BUILDING 2022-04-11 2022-04-11 [facility] [id number] Univers 14:45:00 15:02:41 [facility] 2022-04-11 2022-04-11 Outpatient R [facility] [id number] Univers 14:20:00 14:20:00 [facility] ity [facility] 2022-04-10 2022-04-10 Outpatient R [facility] [id number] Univers 08:45:00 08:45:00 ity of [facility] 2022-04-02 2022-04-02 Outpatient R REBEKAH VAZ [facility] [id number] Univers 10:00:00 10:44:45 ity of [facility] 2022-04-02 2022-04-02 Routine Татьяна Rebekah [facility] 1.2.591.508 [id number] Univers 10:00:00 10:44:45 Yonathan MARSHALL 350.1.13.10 ity of Visit [place] 4.2.7.2.686 [place] [id number] Ga marcela WALSH [address] BUILDING 2022-04-02 2022-04-02 Outpatient R REBEKAH VAZ [facility] [id number] Univers 10:00:00 10:44:45 ity of [facility] 2022-04-02 2022-04-02 Telephone Rebekah Vaz [facility] 1.2.840.114 [id number] Univers 00:00:00 00:00:00 Cam ROLANDO 350.1.13.10 i ty of [facility] 4.2.7.2.686 [place] ESSIO 809.2501712 Ga dical NAL [address] BU[address]ING 2022-04-02 2022-04-02 Orders Doctor ADRIÁN 1.2.840.114 [id number] Univers 00:00:00 00:00:00 Only Unassigned, BAILEY 350.1.13.10 ity of [place] [facility] 4.2.7.2.686 Marty as [id number] [facility] [address] 2022-03-30 2022-03-30 Shirley Denson [facility] 1.2.840.114 [id number] Univers 00:00:00 00:00:00 Linda HEALTH 350.1.13.10 it y of [place] 4.2.7.2.686 Marty as EMMETT?BLEA 210.2577388 Ga dical KNEY [address] [place] MEDICAL OFFICE BUILDING 2022-03-24 2022-03-24 Kyrie ANNETTE Velasco 1.2.840.114 [id number] Univers 00:00:00 00:00:00 Management Rosa OLIVAS 350.1.13.10 ity of [place] 4.2.7.2.686 [place] [id number] [facility] [address] [place] 2022-03-21 2022-03-21 ADRIÁN Murray 1.2.840.114 [id number] Univers 00:00:00 00:00:00 (Out) Rhonda AVALOS 350.1.13.10 it y of [facility] 4.2.7.2.686 Marty as [id number] [facility] [address] 2022-03-20 2022-03-20 Outpatient R LELA [facility] [id number] Univers 17:40:00 18:04:01 CECELIA anglin of [facility] 2022-03-20 2022-03-20 Urgent Lela [facility] 1.2.840.114 [id number] Univers 17:40:00 18:00:00 [facility] 350.1.13.10 it y of [place] 4.2.7.2.686 Marty as EMMETT?BLEA [id number] Ga marcela [address] MEDICAL OFFICE BUILDING 2022-03-20 2022-03-20 Outpatient R MALENAIris [facility] [id number] Univers 17:15:00 17:15:00 CECELIA ity of [facility] 2022-03-20 2022-03-20 Letter Provider, [facility] 1.2.854.795 [id number] Univers 00:00:00 00:00:00 (Out) [facility] 350.1.13.10 it y of Urgent Care [place] 4.2.7.2.686 [place] EMMETT?BLEA [id number] Ga [address]roy[address] MEDICAL OFFICE [facility] 2022-03-18 2022-03-18 Outpatient R ZEN JAMILA [facility] [id number] Univers 13:00:00 13:00:00 ity [facility] 2022-03-07 2022-03-07 Outpatient R ZEN JAMILA [facility] [id number] Univers 08:30:00 08:30:00 ity of [facility] 2022-03-03 2022-03-03 Emergency [facility] ERT [id number] Univers 16:18:00 16:40:00 [facility] 2022-03-03 2022-03-03 Emergency [facility] 1.2.032.467 [id number] Univers 16:18:00 16:40:00 [facility] 350.1.13.10 ity [facility] 4.2.7.2.686 [facility] [id number] [address] 2022-03-03 2022-03-03 Outpatient R DIANE [facility] [id number] Univers 09:45:00 09:45:00 SONI ity [facility] 2022-02-27 2022-02-27 Outpatient R ZEN JAMILA [facility] [id number] Univers 13:45:00 14:33:07 ity [facility] 2022-02-27 2022-02-27 Routine Zen Jamila [facility] 1.2.840.114 [id number] Univers 13:45:00 14:33:07 CLAUDIA 350.1.13.10 i ty of Visit [facility] 4.2.7.2.686 [facility] [id number] [facility] [address] 2022-02-27 2022-02-27 Outpatient R JAMILA ZALDIVAR [facility] [id number] Univers 13:45:00 13:45:00 ity [facility] 2022-02-11 2022-02-11 Outpatient R KOBE [facility] [id number] Univers 14:00:00 14:00:00 WENTONG ity [facility] 2022-02-11 2022-02-11 Outpatient R KOBE [facility] [id number] Univers 14:00:00 14:00:00 [facility] 2022-02-08 2022-02-08 ADRIÁN Murray 1.2.840.114 [id number] Univers 00:00:00 00:00:00 (Out) Rhonda AVALOS 350.1.13.10 it y of [facility] 4.2.7.2.686 Marty as [id number] [facility] [address] [place] 2022-02-07 2022-02-07 Jimbo Denson ALANTONELLA 1.2.840.114 [id number] Univers 17:40:00 18:00:00 [facility] 350.1.13.10 it y of [place] 4.2.7.2.686 Marty as EMMETT?BLEA 146.1205583 Ga elroy[address] MEDICAL OFFICE BUILDING 2022-02-07 2022-02-07 Outpatient R JARETT [facility] [id number] Univers 17:40:00 17:49:36 LINDA ity [facility] 2022-02-07 2022-02-07 Outpatient R [facility] [id number] Univers 09:00:00 09:00:00 ity [facility] 2022-02-06 2022-02-06 Outpatient R JAMILA ZALDIVAR [facility] [id number] Univers 13:00:00 13:54:43 ity [facility] 2022-02-06 2022-02-06 Routine Jamila Zaldivar [facility] 1.2.840.114 [id number] Univers 13:00:00 13:54:43 CLAUDIA 350.1.13.10 i ty of Visit [facility] 4.2.7.2.686 [place] zhao HEALTH [id number] [facility] [address] [place] 2022-02-06 2022-02-06 Outpatient R JAMILA ZALDIVAR [facility] [id number] Univers 13:00:00 13:00:00 ity of [facility] 2022-02-06 2022-02-06 Orders Doctor ADRIÁN 1.2.840.114 [id number] Univers 00:00:00 00:00:00 Only Unassigned, BAILEY 350.1.13.10 ity of [place] [facility] 4.2.7.2.686 Marty as [id number] [address] 2022-01-31 2022-01-31 Outpatient R JAMILA ZALDIVAR [facility] [id number] Univers 13:15:00 14:15:21 ity of [facility] 2022-01-31 2022-01-31 Routine Zen [facility] 1.2.840.114 [id number] Univers 13:15:00 14:15:21 [place] 350.1.13.10 ity of Visit [place] 4.2.7.2.686 Mel zhao [facility] [id number] [address] 2022-01-31 2022-01-31 Outpatient R JAMILA ZALDIVAR [facility] [id number] Univers 13:30:00 13:30:00 ity of [facility] 2022-01-29 2022-01-29 Digital Sales Assistant Lab, Ang - Db [facility] 1.2.840.1 14 [id number] Univers 14:30:00 14:58:49 Visit Jamila Zaldivar [facility] [employer] 350.1.13.10 ity of [place] 4.2.7.2.686 Marty as EMMETT?BLEA [phone] [address] MEDICAL OFFICE BUILDING 2022-01-29 2022-01-29 Digital Sales Assistant Lab, Ang - Db [facility] 1.2.840.1 14 [id number] Univers 14:30:00 14:45:00 Visit FishJamila [facility] [employer] 350.1.13.10 ity of [place] 4.2.7.2.686 Marty as EMMETT?BLEA [phone] Ga marcela MYERS [address] [place] [address] 2022-01-29 2022-01-29 Outpatient R JAMILA ZALDIVAR [facility] [id number] Univers 14:30:00 14:30:00 ity [facility] 2022-01-29 2022-01-29 Outpatient R JAMILA ZALDIVAR [facility] [id number] Univers 10:30:00 10:30:00 ity of [facility] 2022-01-29 2022-01-29 Telephone Jamila Zaldivar [facility] 1.2.840.11 4 [id number] Univers 00:00:00 00:00:00 CLAUDIA 350.1.13.10 it y of [place] [facility] [id number] [address] 2022-01-29 2022-01-29 Patient Jaxon [facility] 1.2.840.114 [id number] Univers 00:00:00 00:00:00 Secure Msg Ana Cristina MARSHALL 350.1.13.10 [place] [id number] [address] 2022-01-29 2022-01-29 Telephone Jamila Zaldivar [facility] 1.2.840.11 4 [id number] Univers 00:00:00 00:00:00 CLAUDIA 350.1.13.10 it [place] [id number] [address] 2022-01-27 2022-01-27 Digital Sales Assistant Lab, Ang - Db [facility] 1.2.840.1 14 [id number] Univers 10:45:00 10:45:00 Visit Zen Jamila [facility] [employer] 350.1.13.10 ity of [place] 4.2.7.2.686 Marty as EMMETT?BLEA [phone] [address] 2022-01-27 2022-01-27 Urgent Amanda Chinchilla [facility] 1.2.840. 114 [id number] Univers 10:20:00 10:40:00 Care Linda Denson [facility] 350.1.13.10 ity of [place] 4.2.7.2.686 Marty as EMMETT?BLEA [phone] Ga marcela [address] MEDICAL OFFICE BUILDING 2022-01-27 2022-01-27 Outpatient R JAMILA ZALDIVAR [facility] [id number] Univers 08:30:00 09:36:17 ity of [facility] 2022-01-27 2022-01-27 Initial Jamila Zaldivar [facility] 1.2.840.114 [id number] Univers 08:30:00 09:36:17 CLAUDIA 350.1.13.10 i ty of [place] [id number] [address] 2022-01-27 2022-01-27 Letter Jamila Zaldivar [facility] 1.2.840.114 [id number] Univers 00:00:00 00:00:00 (Out) CLAUDIA 350.1.13.10 it [place] [id number] [address] 2022-01-27 2022-01-27 Telephone Jamila Zaldivar [facility] 1.2.840.11 4 [id number] Univers 00:00:00 00:00:00 CLAUDIA 350.1.13.10 it y of [place] [id number] [address] 2022-01-27 2022-01-27 Orders Doctor ADRIÁN 1.2.840.114 [id number] Univers 00:00:00 00:00:00 Only Unassigned, BAILEY 350.1.13.10 ity of [place] [facility] 4.2.7.2.686 Marty as [id number] [address] 2022-01-08 2022-01-08 Refill Lela [facility] 1.2.840.114 [id number] Univers 00:00:00 00:00:00 Rania HEALTH 350.1.13.10 it y of [place] 4.2.7.2.686 Marty as EMMETT?BLEA [id number] [address] MEDICAL OFFICE [facility] 2021-12-11 2021-12-11 Telephone ADRIÁN Josue 1.2.411.571 [id number] Univers 00:00:00 00:00:00 Rhonda AVALOS 350.1.13.10 it y of [facility] 4.2.7.2.686 Marty as [id number] [address] 2021-12-10 2021-12-10 Outpatient R LELA [facility] [id number] Univers 15:40:00 16:07:31 [facility] 2021-12-10 2021-12-10 Urgent [facility] 1..840.114 [id number] Univers 15:40:00 16:07:31 Care [facility] 350.1.13.10 ity of [place] 4.2.7.2.686 Marty as EMMETT?BLEA [id number] [address] MEDICAL OFFICE [facility] 2021-12-10 2021-12-10 Outpatient R LELA [facility] [id number] Univers 15:40:00 16:07:31 [facility] 2021-10-28 2021-10-28 [facility] [id number] Univers 17:20:00 17:53:40 [facility] 2021-10-28 2021-10-28 [facility] 1.2.840.114 [id number] Univers 17:20:00 17:53:40 Care [facility] 350.1.13.10 it y of [place] 4.2.7.2.686 Marty as EMMETT?BLEA [id number] [address] MEDICAL OFFICE [facility] 2021-10-21 2021-10-21 Shirley [facility] 1.2.057.652 [id number] Univers 00:00:00 00:00:00 Conchita HEALTH 350.1.13.10 it y of [place] 4.2.7.2.686 Marty as EMMETT?BLEA [id number] Ga marcela MYERS [address] [place] [address] MEDICAL OFFICE BUILDING 2021-10-02 2021-10-02 Outpatient R ТАТЬЯНА REBEKAH [facility] [id number] Univers 14:00:00 14:00:00 ity [facility] 2021-10-01 2021-10-01 Outpatient R KOBE [facility] [id number] Univers 12:30:00 12:30:00 [facility] [place] [facility]-10-01 2021-10-01 Outpatient R KOBE [facility] [id number] Univers 10:00:00 10:00:00 [facility] 2021-09-30 2021-09-30 Outpatient R DIANE [facility] [id number] Univers 17:00:00 17:00:00 SONI [facility] 2021-09-28 2021-09-28 Outpatient R KING ALLISON [facility] [id number] Univers 09:20:00 09:35:47 VERNON [facility] 2021-09-27 2021-09-27 Outpatient R REBEKAH VAZ [facility] [id number] Univers 12:30:00 12:30:00 ity [facility] 2021-09-27 2021-09-27 Telephone Darshan Vazen [facility] LAINE[facility] 1.2.840.114 [id number] Univers 00:00:00 00:00:00 Yonathan TAYLOR 350.1.13.10 it y [place] [id number] [address] 2021-09-20 2021-09-20 Telephone Татьяна Rebekah [facility] 1.2.840.114 [id number] Univers 00:00:00 00:00:00 Yonathan TAYLOR 350.1.13.10 it y [place] [id number] [address] 2021-09-14 2021-09-14 Patient Kobe [facility] 1.2.840.114 [id number] Univers 00:00:00 00:00:00 Secure [facility] 350.1.13.10 ity of [place] 4.2.7.2.686 Marty as EMMETT?BLEA [id number] Ga marcela [address] MEDICAL OFFICE BUILDING 2021-09-13 2021-09-13 Outpatient R VAZ REBEKAH [facility] [id number] Univers 11:15:00 12:08:16 ity [facility] 2021-09-13 2021-09-13 Routine Rebekah Vaz [facility] 1.2.840.114 [id number] Univers 11:15:00 12:08:16 Cam CLAUDIA 350.1.13.10 i ty of Visit [place] [id number] [address] 2021-09-13 2021-09-13 Letter Rebekah Vaz [facility] 1.2.840.114 [id number] Univers 00:00:00 00:00:00 (Out) Yonathan TAYLOR 350.1.13.10 it y [place] [id number] [address] 2021-09-13 2021-09-13 Orders Doctor ADRIÁN 1.2.840.114 [id number] Univers 00:00:00 00:00:00 Only Unassigned, BAILEY 350.1.13.10 ity of [place] [facility] 4.2.7.2.686 Marty as [id number] [address] 2021-09-04 2021-09-04 Outpatient R ТАТЬЯНА REBEKAH [facility] [id number] Univers 15:00:00 15:00:00 ity [facility] 2021-09-02 2021-09-02 Outpatient R DIANE [facility] [id number] Univers 09:45:00 09:45:00 SONI ity [facility] 2021-09-02 2021-09-02 Outpatient R KOBE [facility] [id number] Univers 00:00:00 00:00:00 JEANNA ity [facility] 2021-09-02 2021-09-02 Outpatient R KOBE [facility] [id number] Univers 00:00:00 00:00:00 ABRAHAMONG ity [facility] 2021-09-02 2021-09-02 Outpatient R KOBE [facility] [id number] Univers 00:00:00 00:00:00 JEANNA [facility] 2021-08-30 2021-08-30 Outpatient R REBEKAH VAZ [facility] [id number] Univers 12:30:00 13:36:54 ity of [facility] 2021-08-30 2021-08-30 Initial Rebekah Vaz [facility] 1.2.840.114 [id number] Univers 12:30:00 13:36:54 Yonathan TAYLOR 350.1.13.10 i ty of [place] [id number] [address] 2021-08-30 2021-08-30 Letter Rebekah Vaz [facility] 1.2.840.114 [id number] Univers 00:00:00 00:00:00 (Out) Yonathan TAYLOR 350.1.13.10 it y [place] [id number] [address] 2021-08-29 2021-08-29 Outpatient R CASSIUS [facility] [id number] Univers 18:40:00 19:35:58 [facility] [place] 2021-08-29 2021-08-29 Urgent Vernon Gonzalez [facility] 1.2.840.114 [id number] Univers 18:40:00 19:00:[address] [facility] 350.1.13.10 ity of [place] 4.2.7.2.686 Marty as EMMETT?BLEA [phone] Ga elroy[address] MEDICAL OFFICE BUILDING 2021-08-29 2021-08-29 Outpatient R CASSIUS [facility] [id number] Univers 18:40:00 18:40:00 [facility] [place] 2021-08-27 2021-08-27 Digital Sales Assistant Lab, Ang - Db [facility] 1.2.840.1 14 [id number] Univers 14:00:00 14:15:00 Visit KobeJeanna [facility] 350.1.13.10 ity of [place] 4.2.7.2.686 Marty as EMMETT?BLEA [id number] Me marcela ALCANTARA [address] MEDICAL OFFICE [facility] 2021-08-27 2021-08-27 Office Kobe [facility] 1.2.840.114 [id number] Univers 13:00:00 14:05:18 Visit [facility] 350.1.13.10 it y [facility] 4.2.7.2.686 Marty as EMMETT?BLEA [id number] Ga marcela MYERS [address] MEDICAL OFFICE [facility] 2021-08-27 2021-08-27 Outpatient R KOBE [facility] [id number] Univers 13:00:00 14:05:18 [facility] 2021-08-27 2021-08-27 Outpatient R COLTON [facility] [id number] Univers 14:00:00 14:00:00 MAR [facility] 2021-08-27 2021-08-27 Outpatient R KOBE [facility] [id number] Univers 14:00:00 14:00:00 [facility] 2021-08-27 2021-08-27 Orders Doctor ADRIÁN 1.2.840.114 [id number] Univers 00:00:00 00:00:00 Only Unassigned, BAILEY 350.1.13.10 ity of [place] [facility] 4.2.7.2.686 Marty as [id number] [address] 2021-08-27 2021-08-27 Letter Kobe [facility] 1.2.840.114 [id number] Univers 00:00:00 00:00:00 (Out) [facility] 350.1.13.10 it y [facility] 4.2.7.2.686 Marty as EMMETT?BLEA [id number] Ga marcela MYERS [address] MEDICAL OFFICE [facility] 2021-08-26 2021-08-26 Outpatient R CHAPINCITO [facility] [id number] Univers 09:00:00 09:00:00 [facility] 2021-08-26 2021-08-26 Outpatient R CHAPINCITO [facility] [id number] Univers 09:00:00 09:00:00 JOSH ity [facility] 2021-08-26 2021-08-26 Outpatient R GRACEALDEN [facility] [id number] Univers 09:00:00 09:00:00 JOSH ity [facility] 2021-08-23 2021-08-23 Outpatient R REBEKAH VAZ [facility] [id number] Univers 10:45:00 10:45:00 ity [facility] 2021-07-23 2021-07-23 Laboratory Only, Ang Db Test [facility] 1.2.8 40.114 [id number] Univers 18:00:00 18:15:00 Only Cassius [employer] 350.1.13.10 ity of [place] 4.2.7.2.686 Marty as EMMETT?BLEA [phone] [address] MEDICAL OFFICE BUILDING 2021-07-23 2021-07-23 [facility] [id number] Univers 18:00:00 18:00:00 NELSON ity [facility] 2021-07-23 2021-07-23 Outpatient R CASSIUS [facility] [id number] Univers 16:00:00 16:00:00 [facility] [place] 2021-07-23 2021-07-23 Outpatient R [facility] [id number] Univers 15:45:00 15:45:00 ity [facility] 2021-07-04 2021-07-04 Orders Doctor SAMPSON 1.2.840.114 [id number] Univers 00:00:00 00:00:00 Only UnassignedBAILEY 350.1.13.10 [facility] 4.2.7.2.686 Marty as [phone] [address] 2021-06-26 2021-06-26 Outpatient R SIMÓN [facility] [id number] Univers 16:00:00 16:11:06 LIBBY banda f [facility] 2021-06-26 2021-06-26 Urgent Nelson Hammonds [facility] 1.2.840.114 [id number] Univers 14:02:21 14:22:21 Libby Santamaria [facility] 350.1.13.10 ity of [place] 4.2.7.2.686 Marty as EMMETT?BLEA [id number] Ga marcela [facility] [address] MEDICAL OFFICE [facility] 2021-06-26 2021-06-26 Outpatient R SIMÓN, [facility] [id number] Univers 14:00:00 14:00:00 LIBBY ity o f [facility] 2021-06-26 2021-06-26 Outpatient R [facility] [id number] Univers 10:00:00 10:00:00 ity [facility] 2021-06-24 2021-06-24 [facility] [id number] Univers 10:00:00 10:00:00 SONI ity [facility] 2021-06-24 2021-06-24 Telephone [facility] 1.2.480.062 [id number] Univers 00:00:00 00:00:00 Soni A HEALTH 350.1.13.10 i ty of [place] 4.2.7.2.686 Marty as EMMETT?BLEA [id number] [address] MEDICAL OFFICE [facility] 2021-06-21 2021-06-21 [facility] [id number] Univers 09:30:00 09:30:00 MUKUND ity [facility] 2021-06-21 2021-06-21 Refill [facility] 1.2.840.114 [id number] Univers 00:00:00 00:00:00 Mukund HEALTH 350.1.13.10 it y [facility] 4.2.7.2.686 Marty as EMMETT?BLEA [id number] [address] MEDICAL OFFICE [facility] 2021-06-18 2021-06-18 Outpatient [facility] [id number] Univers 09:30:00 09:30:00 MUKUND ity [facility] 2021-06-18 2021-06-18 Telephone [facility] 1.2.653.817 [id number] Univers 00:00:00 00:00:00 Mukund HEALTH 350.1.13.10 it y of [facility] 4.2.7.2.686 Marty as EMMETT?BLEA [id number] Ga marcela MYERS 0[address] [facility] OFFICE [facility] 2021-06-13 2021-06-13 Patient [facility] 1.2.840.114 [id number] Univers 00:00:00 00:00:00 Secure Msg Mukund HEALTH 350.1.13.10 ity [facility] 4.2.7.2.686 Marty as EMMETT?BLEA [id number] Ga marcela MYERS 044 [facility] OFFICE [facility] 2021-06-12 2021-06-12 [facility] [id number] Univers 13:30:00 14:12:46 ERIC derrek [facility] 2021-06-12 2021-06-12 Office [facility] 1.2.412.609 [id number] Univers 13:23:25 14:12:46 Visit Eric Hammond COMPUTER SECURITY COORDINATOR 350.1.13.10 it y [facility] 4.2.7.2.686 Marty as MATERNAL [id number] [facility] ical & CHILD [address] [place] [address] 2021-06-12 2021-06-12 Outpatient R EMILI [facility] [id number] Univers 13:30:00 13:30:00 ERIC anglin [facility] 2021-06-07 2021-06-07 [facility] 1.2.840.114 [id number] Univers 10:32:59 23:59:00 Encounter Mukund [employer] [facility].13.10 [facility] 4.2.7.2.686 Marty as EMMETT?BLEA [id number] Ga marcela MYERS 809 [facility] OFFICE [facility] 2021-06-07 2021-06-07 Outpatient R CHARLES [facility] [id number] Univers 10:32:59 23:59:00 MUKUND katycorona [facility] 2021-06-07 2021-06-07 [facility] [id number] Univers 09:30:00 10:38:03 MUKUND burnscorona [facility] 2021-06-07 2021-06-07 Office [facility] 1.2.840.114 [id number] Univers 09:27:17 10:38:03 Visit [facility] 350.1.13.10 it y of [place] 4.2.7.2.686 Marty as EMMETT?BLEA [phone] [facility] [address] 2021-06-07 2021-06-07 Outpatient [facility] [id number] Univers 09:30:00 09:30:00 MUKUND anglin [facility] 2021-06-05 2021-06-05 Shirley [facility] 1.2.840.114 [id number] Univers 00:00:00 00:00:00 Linda HEALTH 350.1.13.10 it y of [place] 4.2.7.2.686 Marty as EMMETT?BLEA [id number] [address] 2021-06-04 2021-06-04 Outpatient [facility] [id number] Univers 09:30:00 09:30:00 MUKUND anglin [facility] 2021-06-01 2021-06-01 Shirley [facility] 1.2.840.114 [id number] Univers 00:00:00 00:00:00 Mukund HEALTH 350.1.13.10 it y of [place] 4.2.7.2.686 Marty as EMMETT?BLEA [id number] [address] 2021-05-31 2021-05-31 Shirley [facility]GALLUP [facility] 1.2.840.114 [id number] Univers 00:00:00 00:00:00 Linda HEALTH 350.1.13.10 it y of [place] 4.2.7.2.686 Marty as EMMETT?BLEA [id number] [address] 2021-05-20 2021-05-20 Outpatient Ruben BECKHAM [facility] [id number] Univers 13:30:00 13:30:00 JOSH derrek [facility] 2021-05-17 2021-05-17 Outpatient Ruben MOCK [facility] [id number] Univers 10:15:00 10:15:00 ERIC anglin [facility] 2021-05-10 2021-05-10 Digital Sales Assistant Lab, Ang - Db [facility] 1.2.840.1 14 [id number] Univers 13:53:17 14:07:26 Visit Soni Contreras [facility] 350.1.13.10 ity of [place] 4.2.7.2.686 Marty as Emmett?Blea [phone] Ga marcela myers [address] [facility] Office [facility] 2021-05-10 2021-05-10 Office Anabell Sotothia [facility] 1.2.840.114 [id number] Univers 12:57:45 13:53:07 Visit Soni Contreras [facility] 350.1.13.10 ity of [place] 4.2.7.2.686 Marty as Emmett?Blea [id number] Ga marcela myers 044 [facility] Office [facility] 2021-05-10 2021-05-10 Out[facility] [id number] Univers 13:00:00 13:00:00 SONI anglin [facility] 2021-05-08 2021-05-08 Urgent Linda Denson [facility] 1.2.840.114 [id number] Univers 18:49:53 19:09:53 Care [facility] 350.1.13.10 ity of [place] 4.2.7.2.686 Marty as Emmett?Blea [id number] [facility] [address] [facility] Office [facility] 2021-05-08 2021-05-08 Outpatient R RENÉE [facility] [id number] Univers 19:00:00 19:00:00 AMANDA anglin o f [facility] 2021-05-08 2021-05-08 Outpatient R [facility] [id number] Univers 17:20:00 17:20:00 [facility] 2021-04-25 2021-04-25 Routine Emili [facility] 1.2.593.753 [id number] Univers 15:59:10 16:44:08 Eric Hammond COMPUTER SECURITY COORDINATOR 350.1.13.10 i ty of Visit [facility] 4.2.7.2.686 Marty as MATERNAL [id number] Med ical & CHILD 107 [facility] 2021-04-25 2021-04-25 Outpatient R EMILI [facility] [id number] Univers 16:00:00 16:00:00 ERIC anglin [facility] 2021-03-31 2021-04-03 Hospital ADRIÁN Elena 1.2.024.823 [id number] Univers 16:58:00 13:59:00 Encounter Julian AVALOS 350.1.13.10 ity of [facility] 4.2.7.2.686 Marty as [id number] [address] 2021-04-02 2021-04-02 [facility] [id number] Univers 14:15:00 14:15:00 ERIC anglin [facility] 2021-03-31 2021-04-01 Anesthesia [place] 1.2.840 .114 [id number] Univers 20:35:00 03:48:00 Event Adrián Parikh 350.1.13.10 ity [facility] 4.2.7.2.686 Marty as [id number] [address] 2021-03-31 2021-04-01 Surgery ADRIÁN Elena 1.2.840.114 [id number] Univers 23:00:00 00:43:00 Julian AVALOS 350.1.13.10 ity [facility] 4.2.7.2.686 Marty as [id number] [address] 2021-03-27 2021-03-27 Outpatient R BONNIE [facility] [id number] Univers 15:45:00 15:45:00 TAB mckeon [facility] 2021-03-26 2021-03-26 Digital Sales Assistant Ultrasound, [facility] 1.2 .840.114 [id number] Univers 15:04:09 15:34:09 Visit Eric Mock COMPUTER SECURITY COORDINATOR 350.1.13.10 ity [facility] 4.2.7.2 .686 [place] MATERNAL [phone] [facility] ical & CHILD 369 [facility] 2021-03-26 2021-03-26 Digital Sales Assistant Ultrasound, [place] 1.2 .840.114 [id number] Univers 15:04:09 15:34:09 Visit Eric Mock COMPUTER SECURITY COORDINATOR 350.1.13.10 ity of [place] REGIONAL 4.2.7.2 .686 [place] MATERNAL [id number] [facility] ical & CHILD 369 [facility] 2021-03-26 2021-03-26 Outpatient P EMILI [facility] [id number] Univers 15:15:00 15:15:00 ERIC anglin [facility] 2021-03-26 2021-03-26 Routine [facility] 1.2.821.178 [id number] Univers 14:15:58 15:03:13 Eric Hammond COMPUTER SECURITY COORDINATOR 350.1.13.10 i ty of Visit REGIONAL 4.2.7.2.686 Marty as MATERNAL [id number] [facility] CHILD [address] [place] [address] 2021-03-26 2021-03-26 Routine [facility] 1.2.814.999 [id number] Univers 14:15:58 15:03:13 Eric Hammond COMPUTER SECURITY COORDINATOR 350.1.13.10 i ty of Visit REGIONAL 4.2.7.2.686 Marty as MATERNAL [id number] [facility] [address] 2021-03-21 2021-03-21 Telephone Emili [facility] 1.2.840.114 [id number] Univers 00:00:00 00:00:00 Eric Hammond COMPUTER SECURITY COORDINATOR 350.1.13.10 it y of REGIONAL 4.2.7.2.686 Marty as MATERNAL [id number] [facility] CH[facility] [address] [place] [address] 2021-03-20 2021-03-20 Outpatient R EMILI [facility] [id number] Univers 12:45:00 12:45:00 ERIC anglin [facility] 2021-03-20 2021-03-20 Digital Sales Assistant Lab, Ang-Rmchp [facility] 1.2.840. 114 [id number] Univers 12:42:40 12:42:47 Visit Eric Mock COMPUTER SECURITY COORDINATOR 350.1.13.10 ity of [facility] 4.2.7.2.686 Marty as MATERNAL [id number] [facility] CH[facility] [address] [place] [address] 2021-03-20 2021-03-20 Telephone [facility] 1.2.840.114 [id number] Univers 00:00:00 00:00:00 Eric Manish COMPUTER SECURITY COORDINATOR 350.1.13.10 it y of [facility] 4.2.7.2.686 Marty as MATERNAL [id number] [facility] CH[facility] [address] [place] [address] 2021-03-19 2021-03-19 Routine [facility] 1.2.037.462 [id number] Univers 14:24:31 15:03:42 Eric Manish COMPUTER SECURITY COORDINATOR 350.1.13.10 i ty of Visit [facility] 4.2.7.2.686 Marty as MATERNAL [id number] [facility] & [address] 2021-03-19 2021-03-19 [facility] [id number] Univers 14:15:00 14:15:00 ERIC anglin [facility] 2021-03-12 2021-03-12 Outpatient R [facility] [id number] Univers 09:30:00 09:30:00 ity [facility] 2021-03-05 2021-03-05 Routine [facility] 1.2.495.730 [id number] Univers 10:48:25 11:35:50 Eric Manish COMPUTER SECURITY COORDINATOR 350.1.13.10 i ty of Visit [facility] 4.2.7.2.686 Marty as MATERNAL [id number] [facility] & CHILD [address] [place] [address] 2021-03-05 2021-03-05 [facility] [id number] Univers 11:00:00 11:00:00 ERIC anglin [facility] 2021-02-27 2021-02-27 Nurse Visit, Ang-Rmchp Nurse [facility] 1.2 .840.114 [id number] Univers 15:40:08 15:58:05 Visit Kathryn Fry COMPUTER SECURITY COORDINATOR 350.1.13.10 ity of REGIONAL 4.2.7.2.686 [place] as MATERNAL [id number] [facility] ical & CHILD 107 [facility] 2021-02-27 2021-02-27 Digital Sales Assistant Ultrasound, [facility] 1.2 .840.114 [id number] Univers 14:55:25 15:25:25 Visit Eric Mock COMPUTER SECURITY COORDINATOR 350.1.13.10 ity of REGIONAL 4.2.7.2.686 Marty as MATERNAL [id number] [facility] ical & CHILD 369 [facility] 2021-02-27 2021-02-27 Outpatient P [facility] [id number] Univers 15:00:00 15:00:00 ity [facility] 2021-02-26 2021-02-26 Outpatient R EMILI [facility] [id number] Univers 10:45:00 10:45:00 ERIC anglin [facility] 2021-02-22 2021-02-22 Outpatient R SEVERO MCCLELLAN [facility] [id number] Univers 10:45:00 10:45:00 SEVERO MCCLELLAN [facility] 2021-02-22 2021-02-22 Telemedici Fellow, [facility] Rmp [facility] NIVERSIT [id number] Univers 08:26:49 08:41:49 ne Visit Severo Mcclellan [facility] [id number] ity of CLINICS [id number] [id number] [address] 2021-02-19 2021-02-19 Routine Emili [facility] [id number] Univers 13:04:02 13:55:40 Eric Hammond COMPUTER SECURITY COORDINATOR [id number] i ty of Visit REGIONAL [id number] Marty as MATERNAL [id number] [facility] & CHILD [address] [place] [address] 2021-02-19 2021-02-19 Outpatient R [facility] [id number] Univers 13:00:00 13:00:00 ity [facility] 2021-02-19 2021-02-19 Outpatient Ruben MOCK [facility] [id number] Univers 13:00:00 13:00:00 ERICJESUSITA burnscorona [facility] 2021-02-19 2021-02-19 Telephone Emili [facility] [id number] Univers 00:00:00 00:00:00 Eric Hammond COMPUTER SECURITY COORDINATOR [id number] it y of REGIONAL [id number] Marty as MATERNAL [id number] [facility] & CHILD [address] [place] [address] 2021-02-18 2021-02-18 Outpatient R [facility] [id number] Univers 10:00:00 10:00:00 ity [facility] 2021-02-18 2021-02-18 Telephone Hortencia [facility] [id number] [id number] Univers 00:00:00 00:00:00 Ang chp COMPUTER SECURITY COORDINATOR [id number] ity of [facility] REGIONAL [id number] Marty as MATERNAL [id number] [address] 2021-02-15 2021-02-15 Telemedici Makayla Lechuga [facility] 1.2.8 40.114 [id number] Univers 12:53:36 12:53:48 ne Visit Maico Saini COMPUTER SECURITY COORDINATOR 350.1.13.10 ity of REGIONAL 4.2.7.2.686 Marty as MATERNAL [phone] [facility] & CHILD [address] [place] [address] 2021-02-15 2021-02-15 Outpatient P [facility] [id number] Univers 09:45:00 09:45:00 ity of [facility] 2021-02-12 2021-02-12 Routine Emili [facility] 1.2.366.924 [id number] Univers 13:33:25 14:47:59 Eric Hammond COMPUTER SECURITY COORDINATOR 350.1.13.10 i ty of Visit REGIONAL 4.2.7.2.686 Marty as MATERNAL [phone] [facility] & CHILD [address] [place] [address] 2021-02-12 2021-02-12 Outpatient R EMILI [facility] [id number] Univers 14:00:00 14:00:00 ERICJESUSITA anglin [facility] 2021-02-08 2021-02-08 [facility]phone [facility] 1.2.840.114 [id number] Univers 00:00:00 00:00:00 Eric Hammond COMPUTER SECURITY COORDINATOR 350.1.13.10 it y of [facility] 4.2.7.2.686 Marty as MATERNAL [phone] [facility] CH[facility] [address] [place] [address] 2021-02-08 2021-02-08 Nurse ADRIÁN Seaman 1.2.840.114 [id number] Univers 00:00:00 00:00:00 Triage Chuy AVALOS 350.1.13.10 ity of [facility] 4.2.7.2.686 Marty as [id number] [facility] 019 [place] 2021-02-05 2021-02-05 Outpatient R [facility] [id number] Univers 12:45:00 12:45:00 ity of [facility] 2021-02-01 2021-02-01 Abstract Bonnie [facility] 1.2.840.114 [id number] Univers 00:00:00 00:00:00 Tab Guerrero COMPUTER SECURITY COORDINATOR 350.1.13.10 ity of [facility] 4.2.7.2.686 Marty as MATERNAL [phone] [facility] & [address] 2021-01-31 2021-01-31 Digital Sales Assistant 1, [facility] Us Room UNIVERSIT 1 .2.840.114 [id number] Univers 15:10:46 16:18:12 Visit Johnna Chowdhury [facility] 350.1 .13.10 ity of [facility] 4.2.7.2.[place] [phone] [facility] 104 [place] 2021-01-31 2021-01-31 Outpatient P [facility] [id number] Univers 15:30:00 15:30:00 ity of [facility] 2021-01-29 2021-01-29 Emergency Zen Jamila [facility] 1.2.840.114 [id number] Univers 22:06:00 23:25:00 Malone 350.1.13.10 i ty of [place].7.2.686 [place] [phone] [facility] 083 [place] 2021-01-29 2021-01-29 [facility]ine [facility] 1.2.823.475 [id number] Univers 13:29:22 14:23:00 Eric N COMPUTER SECURITY COORDINATOR 350.1.13.10 i ty of Visit [facility] 4.2.7.2.686 Marty as MATERNAL [phone] Med ical & CHILD [address] [place] [address] 2021-01-29 2021-01-29 [facility] [id number] Univers 13:45:00 13:45:00 ERIC ity of [facility] 2021-01-29 2021-01-29 Telephone [facility] 1.2.840.114 [id number] Univers 00:00:00 00:00:00 Eric Hammond COMPUTER SECURITY COORDINATOR 350.1.13.10 it y of [facility] 4.2.7.2.686 Marty as MATERNAL [phone] [facility] & CHILD [address] [place] [address] 2021-01-29 2021-01-29 Nurse ADRIÁN Quezada 1.2.840.114 [id number] Univers 00:00:00 00:00:00 Triage Ellie Zhao B[place] 350.1.13.10 ity of HOSPITAL 4.2.7.2.686 Marty as [phone] [facility] 019 [place] 2021-01-29 2021-01-29 Orders Doctor ADRIÁN 1.2.840.114 [id number] Univers 00:00:00 00:00:00 Only Unassigned, BAILEY 350.1.13.10 ity of [facility] 4.2.7.2.686 Marty as [phone] [facility] 009 [place] 2021-01-21 2021-01-21 Outpatient R [facility] [id number] Univers 11:00:00 11:00:00 ity of [facility] 2021-01-21 2021-01-21 Telemedici Faculty, Poncho Berry [facility] 1.2.840.114 [id number] Univers 09:02:46 09:17:46 ne Visit Julian Elena COMPUTER SECURITY COORDINATOR 350.1.13. 10 ity of [facility] 4.2.7.2.686 Marty as MATERNAL [phone] Med ical & CHILD [address] [place] [address] 2021-01-18 2021-01-18 Telephone Emili [facility] 1.2.840.114 [id number] Univers 00:00:00 00:00:00 Eric N COMPUTER SECURITY COORDINATOR 350.1.13.10 it y of REGIONAL 4.2.7.2.686 Marty as MATERNAL [phone] [facility] ical & CHILD [address] [place] [address] 2021-01-15 2021-01-15 Outpatient R EMILI [facility] [id number] Univers 10:00:00 10:00:00 ERIC itcorona [facility] 2021-01-15 2021-01-15 Telephone [facility] 1.2.840.114 [id number] Univers 00:00:00 00:00:00 Eric Hammond COMPUTER SECURITY COORDINATOR 350.1.13.10 it y of REGIONAL 4.2.7.2.686 Marty as MATERNAL [phone] [facility] [address] [place] [address] 2021-01-08 2021-01-08 Nurse Visit, [facility] Nurse [facility] 1.2 .840.114 [id number] Univers 10:03:31 10:18:41 Visit Eric Mock COMPUTER SECURITY COORDINATOR 350.1.13.10 ity of [facility] 4.2.7.2.686 Marty as MATERNAL [phone] [facility] ical & CHILD [address] [place] [address] 2021-01-08 2021-01-08 Outpatient R [facility] [id number] Univers 10:00:00 10:00:00 ity [facility] 2021-01-03 2021-01-03 Digital Sales Assistant Lab, [facility] 1.2.840. 114 [id number] Univers 08:59:03 10:31:23 Visit Eric Mock COMPUTER SECURITY COORDINATOR 350.1.13.10 ity of [facility] 4.2.7.2.686 Marty as MATERNAL [phone] [facility] ical & CHILD [address] [place] [address] 2021-01-03 2021-01-03 Outpatient R [facility] [id number] Univers 08:30:00 08:30:00 ity of [facility] 2021-01-02 2021-01-02 Outpatient R [facility] [id number] Univers 10:30:00 10:30:00 [facility] [place] 2021-01-01 2021-01-01 [facility] [id number] Univers 12:45:00 12:45:00 ERIC corona [facility] 2021-01-01 2021-01-01 Routine [facility] 1.2.740.632 [id number] Univers 08:34:05 09:19:16 Eric Hammond COMPUTER SECURITY COORDINATOR 350.1.13.10 i ty of Visit REGIONAL 4.2.7.2.686 Marty as MATERNAL [phone] [facility] ical & CHILD [address] [place] [address] 2021-01-01 2021-01-01 Outpatient R EMILI [facility] [id number] Univers 08:45:00 08:45:00 ERIC [facility] 2020-12-26 2020-12-26 Nurse Visit, Ruperto Nurse [facility] 1.2 .840.114 [id number] Univers 09:32:52 10:04:57 Visit Eric Mock COMPUTER SECURITY COORDINATOR 350.1.13.10 ity of REGIONAL 4.2.7.2.686 Marty as MATERNAL [phone] [facility] & [address] 2020-12-26 2020-12-26 Outpatient R [facility] [id number] Univers 09:30:00 09:30:00 [facility] [place] 2020-12-24 2020-12-24 Outpatient R [facility] [id number] Univers 15:00:00 15:00:00 ity [facility] 2020-12-24 2020-12-24 Telemedici Faculty, Poncho Berry [facility] 1.2.840.114 [id number] Univers 08:59:50 09:14:50 ne Visit Kandi Reid COMPUTER SECURITY COORDINATOR 350.1.13.10 ity of REGIONAL 4.2.7.2.686 Marty as MATERNAL [phone] [facility] [address] [place] [address] 2020-12-21 2020-12-21 Outpatient MAICO DIETRICH [facility] [id number] Univers 11:15:00 11:15:00 ity of [facility] 2020-12-21 2020-12-21 Telephone Emili [facility] 1.2.840.114 [id number] Univers 00:00:00 00:00:00 Eric Hammond COMPUTER SECURITY COORDINATOR 350.1.13.10 it y of [facility] 4.2.7.2.686 Marty as MATERNAL [phone] [facility] ical & CHILD [address] [place] [address] 2020-12-19 2020-12-19 Nurse Visit, Ruperto Nurse [facility] 1.2 .840.114 [id number] Univers 09:52:56 10:23:27 Visit Eric Mock COMPUTER SECURITY COORDINATOR 350.1.13.10 ity of [facility] 4.2.7.2.686 Marty as MATERNAL [phone] [facility] [address] [place] [address] 2020-12-19 2020-12-19 Outpatient R [facility] [id number] Univers 09:30:00 09:30:00 ity of [facility] 2020-12-18 2020-12-18 Orders Doctor ADRIÁN 1.2.840.114 [id number] Univers 00:00:00 00:00:00 Only Unassigned, BAILEY 350.1.13.10 ity of [place] [facility] 4.2.7.2.686 Marty as [phone] [facility] 009 [place] 2020-12-15 2020-12-15 Nurse ADRIÁN Quezada 1.2.840.114 [id number] Univers 00:00:00 00:00:00 Triage Ellie Zhao BAILEY 350.1.13.10 ity of [facility] 4.2.7.2.686 Marty as [phone] [facility] 019 [place] 2020-12-12 2020-12-12 Nurse Visit, Ruperto Nurse [facility] 1.2 .840.114 [id number] Univers 10:18:52 10:44:10 Visit Eric Mock COMPUTER SECURITY COORDINATOR 350.1.13.10 ity of [facility] 4.2.7.2.686 Marty as MATERNAL [phone] [facility] [address] [place] [address] 2020-12-12 2020-12-12 Outpatient R [facility] [id number] Univers 10:00:00 10:00:00 ity [facility] 2020-12-12 2020-12-12 Digital Sales Assistant [facility] 1.2 .840.114 [id number] Univers 09:28:22 09:58:22 Visit Ang Amiraquoc Miranda COMPUTER SECURITY COORDINATOR 350.1.13.10 ity of [place] Whitten REGIONAL 4.2.7.2.686 [place] Tammy Ortiz MATERNAL [phone] Medical & CHILD [address] [place] [address] 2020-12-10 2020-12-10 [facility] [id number] Univers 08:30:00 08:30:00 [facility] [place] 2020-12-05 2020-12-05 Routine [facility] 1.2.872.665 [id number] Univers 08:24:48 09:04:09 Eric Hammond COMPUTER SECURITY COORDINATOR 350.1.13.10 i ty of Visit REGIONAL 4.2.7.2.686 Marty as MATERNAL [phone] Med ical & CHILD [address] [place] [address] 2020-12-05 2020-12-05 Outpatient R EMILI [facility] [id number] Univers 08:30:00 08:30:00 ERIC anglin [facility] 2020-12-05 2020-12-05 Digital Sales Assistant [facility] 1.2 .840.114 [id number] Univers 07:59:46 08:24:35 Visit Kathryn Fry COMPUTER SECURITY COORDINATOR 350.1.13.10 ity of [place] REGIONAL 4.2.7.2.686 Severo Evangelista MATERNAL [phone] [facility] & CHILD [address] [place] [address] 2020-12-03 2020-12-03 Telephone [facility] 1.2.840.114 [id number] Univers 00:00:00 00:00:00 Eric Hammond COMPUTER SECURITY COORDINATOR 350.1.13.10 it y of REGIONAL 4.2.7.2.686 Marty as MATERNAL [phone] Med ical & CHILD 107 [place] [facility] 2020-11-29 2020-11-29 Outpatient R EMILI [facility] [id number] Univers 08:45:00 08:45:00 ERIC [facility] 2020-11-28 2020-11-28 Nurse Visit, Ruperto Nurse [facility] 1.2 .840.114 [id number] Univers 09:01:14 09:28:22 Visit Eric Mock COMPUTER SECURITY COORDINATOR 350.1.13.10 ity of [facility] 4.2.7.2.686 Marty as MATERNAL [phone] [facility] [address] [place] [address] 2020-11-28 2020-11-28 Outpatient Ruben MOCK [facility] [id number] Univers 08:30:00 08:30:00 ERIC [facility] 2020-11-22 2020-11-22 Digital Sales Assistant [facility]trasound[facility] 1.2 .840.114 [id number] Univers 08:53:19 10:08:19 Visit Emmanuel Lepe COMPUTER SECURITY COORDINATOR 350.1.13.10 ity of REGIONAL 4.2.7.2.686 Marty as MATERNAL [phone] [facility] [address] [facility] 2020-11-22 2020-11-22 Outpatient P [facility] [id number] Univers 08:45:00 08:45:00 ity [facility] 2020-11-21 2020-11-21 Nurse Visit, Ruperto Nurse [facility] 1.2 .840.114 [id number] Univers 08:53:59 09:10:18 Visit Eric Mock COMPUTER SECURITY COORDINATOR 350.1.13.10 ity of REGIONAL 4.2.7.2.686 Marty as MATERNAL [id number] [facility] & CHILD [address] [place] [address] 2020-11-21 2020-11-21 Outpatient R EMILI [facility] [id number] Univers 08:30:00 08:30:00 ERIC corona [facility] 2020-11-14 2020-11-14 Digital Sales Assistant [facility]trasound, [facility] 1.2 .840.114 [id number] Univers 08:56:46 09:26:46 Visit Kathryn Fry R COMPUTER SECURITY COORDINATOR 350.1.13.10 ity of [place] Whitten R REGIONAL 4.2.7.2.686 [place] MATERNAL [phone] Med ical & CHILD [address] [facility] 2020-11-14 2020-11-14 Routine [facility] 1.2.840.114 [id number] Univers 08:23:13 08:38:13 Kathryn R COMPUTER SECURITY COORDINATOR 350.1.13.10 ity of Visit REGIONAL 4.2.7.2.686 Marty as MATERNAL [phone] [facility] ical & CHILD [address] [place] [address] 2020-11-14 2020-11-14 Outpatient R [facility] [id number] Univers 08:30:00 08:30:00 ity [facility] 2020-11-13 2020-11-13 Outpatient R [facility] [id number] Univers 17:20:00 17:20:00 ity [facility] 2020-11-13 2020-11-13 Telephone [facility] 1.2.840.114 [id number] Univers 00:00:00 00:00:00 Eric N COMPUTER SECURITY COORDINATOR 350.1.13.10 it y of REGIONAL 4.2.7.2.686 Marty as MATERNAL [id number] [facility] & CHILD [address] [place] [address] 2020-11-07 2020-11-07 [facility] 1.2.500.859 [id number] Univers 10:03:48 10:53:52 Eric N COMPUTER SECURITY COORDINATOR 350.1.13.10 i ty of Visit REGIONAL 4.2.7.2.686 Marty as MATERNAL [id number] Med ical & CHILD [address] [place] [address] 2020-11-07 2020-11-07 Routine [facility] 1.2.552.254 [id number] 10:03:48 10:53:52 Eric N COMPUTER SECURITY COORDINATOR 350.1.13.10 Visit REGIONAL 4.2.7.2.686 MATERNAL [phone] & [address] 2020-11-07 2020-11-07 [facility] [id number] Univers 09:15:00 09:15:00 ERIC anglin [facility] 2020-11-06 2020-11-06 Outpatient Ruben MOCK [facility] [id number] Univers 14:15:00 14:15:00 ERIC anglin [facility] 2020-11-05 2020-11-05 Telephone [facility] 1.2.840.114 [id number] Univers 00:00:00 00:00:00 Eric N COMPUTER SECURITY COORDINATOR 350.1.13.10 it y of REGIONAL 4.2.7.2.686 Marty as MATERNAL [phone] Med ical & CHILD [address] [place] [address] 2020-10-31 2020-10-31 Telephone [facility] 1.2.840.114 [id number] Univers 00:00:00 00:00:00 Eric Manish COMPUTER SECURITY COORDINATOR 350.1.13.10 it y of REGIONAL 4.2.7.2.686 Marty as MATERNAL [phone] Med ical & CHILD [address] [place] [address] 2020-10-31 2020-10-31 Telephone [facility] 1.2.840.114 [id number] Univers 00:00:00 00:00:00 Eric Manish COMPUTER SECURITY COORDINATOR 350.1.13.10 it y of REGIONAL 4.2.7.2.686 Marty as MATERNAL [phone] Med ical & CHILD [address] [place] [address] 2020-10-30 2020-10-30 Telephone [facility] 1.2.840.114 [id number] Univers 00:00:00 00:00:00 Eric N COMPUTER SECURITY COORDINATOR 350.1.13.10 it y of REGIONAL 4.2.7.2.686 Marty as MATERNAL [phone] [facility] ical & CHILD [address] [place] [address] 2020-10-29 2020-10-29 Emergency Cynthia [facility] 1.2.457.394 [id number] Univers 15:24:00 18:12:00 Maldonado Jacobo Malone 350.1.13.10 ity of [place].7.2.686 [place] [id number] [address] 2020-10-29 2020-10-29 Outpatient R [facility] [id number] Univers 09:30:00 09:30:00 ity of [facility] 2020-10-29 2020-10-29 Telemedici Faculty, [facility] 1.2.840.114 [id number] Univers 08:09:37 08:24:37 ne Visit Brandon Whitten Ruben COMPUTER SECURITY COORDINATOR 350.1.13.10 ity of [facility] 4.2.7.2.686 Marty as MATERNAL [phone] [facility] ical & CHILD [address] [place] [address] 2020-10-29 2020-10-29 Telephone [facility] 1.2.840.114 [id number] Univers 00:00:00 00:00:00 Eric Hammond COMPUTER SECURITY COORDINATOR 350.1.13.10 it y of [facility] 4.2.7.2.686 Marty as MATERNAL [phone] [facility] & CHILD [address] [place] [address] 2020-10-29 2020-10-29 Orders Doctor ADRIÁN 1.2.840.114 [id number] Univers 00:00:00 00:00:00 Only Unassigned, BAILEY 350.1.13.10 ity of [place] [facility] 4.2.7.2.686 Marty as [id number] [address] 2020-10-28 2020-10-28 Telephone [facility] 1.2.564.615 [id number] Univers 00:00:00 00:00:00 Rhonda Howe COMPUTER SECURITY COORDINATOR 350.1.13.10 ity of [facility] 4.2.7.2.686 Marty as MATERNAL [phone] [facility] [address] [place] [address] 2020-10-26 2020-10-26 Telephone [facility] 1.2.840.114 [id number] Univers 00:00:00 00:00:00 Eric Hammond COMPUTER SECURITY COORDINATOR 350.1.13.10 it y of [facility] 4.2.7.2.686 Marty as MATERNAL [phone] [facility] & CHILD [address] [place] [address] 2020-10-24 2020-10-24 Telephone [facility] 1.2.840.114 [id number] Univers 00:00:00 00:00:00 Eric N COMPUTER SECURITY COORDINATOR 350.1.13.10 it y of REGIONAL 4.2.7.2.686 Marty as MATERNAL [phone] [facility] [address] [place] [address] 2020-10-22 2020-10-22 Telephone Ana [facility] 1.2.189.680 [id number] Univers 00:00:00 00:00:00 Rhonda Howe COMPUTER SECURITY COORDINATOR 350.1.13.10 ity of REGIONAL 4.2.7.2.686 Marty as MATERNAL [id number] [facility] [address] [place] [address] 2020-10-04 2020-10-04 Routine Risk, Mcl-Rumzm-Cv/High [facility] 1. 2.840.114 [id number] Univers 14:35:18 15:12:11 Perez, Rhonda Howe COMPUTER SECURITY COORDINATOR 350.1.13.10 ity of Visit REGIONAL 4.2.7.2.686 Marty as MATERNAL [phone] [facility] & CHILD [address] [place] [address] 2020-10-04 2020-10-04 Outpatient R [facility] [id number] Univers 14:30:00 14:30:00 ity of [facility] 2020-10-04 2020-10-04 Telephone [facility] 1.2.840.114 [id number] Univers 00:00:00 00:00:00 Eric Hammond COMPUTER SECURITY COORDINATOR 350.1.13.10 it y of REGIONAL 4.2.7.2.686 Marty as MATERNAL [id number] [facility] & CHILD [address] [place] [address] 2020-10-03 2020-10-03 Telephone [facility] 1.2.840.114 [id number] Univers 00:00:00 00:00:00 Eric N COMPUTER SECURITY COORDINATOR 350.1.13.10 it y of REGIONAL 4.2.7.2.686 Marty as MATERNAL [phone] [facility] [address] [place] [address] 2020-10-01 2020-10-01 Telephone [facility] 1.2.840.114 [id number] Univers 00:00:00 00:00:00 Eric N COMPUTER SECURITY COORDINATOR 350.1.13.10 it y of REGIONAL 4.2.7.2.686 Marty as MATERNAL [phone] Med ical & CHILD [address] [place] [address] 2020-09-25 2020-09-25 Orders Doctor ADRIÁN 1.2.840.114 [id number] Univers 00:00:00 00:00:00 Only Unassigned, BAILEY 350.1.13.10 ity of [place] [facility] 4.2.7.2.686 Marty as [id number] [address] 2020-09-13 2020-09-13 Routine Risk, Gqn-Kpuha-Pd/High [facility] 1. 2.840.114 [id number] Univers 15:33:54 16:21:30 Onelia Price COMPUTER SECURITY COORDINATOR 350.1.13.10 ity of Visit [facility] 4.2.7.2.686 Marty as MATERNAL [phone] [facility] ical & CHILD [address] [place] [address] 2020-09-13 2020-09-13 Outpatient R [facility] [id number] Univers 15:30:00 15:30:00 ity [facility] 2020-09-06 2020-09-06 Outpatient R [facility] [id number] Univers 15:00:00 15:00:00 ity [facility] 2020-09-03 2020-09-03 Telephone Emili [facility] 1.2.840.114 [id number] Univers 00:00:00 00:00:00 Eric Hammond COMPUTER SECURITY COORDINATOR 350.1.13.10 it y of REGIONAL 4.2.7.2.686 Marty as MATERNAL [id number] [facility] ical & CHILD [address] [place] [address] 2020-08-31 2020-08-31 Digital Sales Assistant [facility]trasound, [facility] 1.2 .840.114 [id number] Univers 15:11:17 15:41:17 Visit Johnna Chowdhury COMPUTER SECURITY COORDINATOR 350.1. 13.10 ity of REGIONAL 4.2.7.2.686 [place] as MATERNAL [id number] [facility] ical & CHILD [address] [facility] 2020-08-31 2020-08-31 Outpatient P [facility] [id number] Univers 15:00:00 15:00:00 ity of [facility] 2020-08-31 2020-08-31 Abstract SAJI Mock 1.2.840.114 [id number] Univers 00:00:00 00:00:00 Eric N COMPUTER SECURITY COORDINATOR 350.1.13.10 it y of REGIONAL 4.2.7.2.686 [place] as MATERNAL [phone] Med ical & CHILD [address] [place] [address] 2020-08-31 2020-08-31 Telephone Emili [facility] 1.2.840.114 [id number] Univers 00:00:00 00:00:00 Eric N COMPUTER SECURITY COORDINATOR 350.1.13.10 it y of REGIONAL 4.2.7.2.686 Marty as MATERNAL [id number] [facility] ical & CHILD [address] [place] [address] 2020-08-29 2020-08-29 Telephone Emili [facility] 1.2.840.114 [id number] Univers 00:00:00 00:00:00 Eric N COMPUTER SECURITY COORDINATOR 350.1.13.10 it y of REGIONAL 4.2.7.2.686 Marty as MATERNAL [id number] [facility] ical & CHILD [address] [place] [address] 2020-08-27 2020-08-27 Telephone SAJI Mock 1.2.840.114 [id number] Univers 00:00:00 00:00:00 Eric N COMPUTER SECURITY COORDINATOR 350.1.13.10 it y of REGIONAL 4.2.7.2.686 Marty as MATERNAL [id number] [facility] ical & CHILD [address] [place] [address] 2020-08-22 2020-08-22 Telephone Emili [facility] 1.2.840.114 [id number] Univers 00:00:00 00:00:00 Eric N COMPUTER SECURITY COORDINATOR 350.1.13.10 it y of REGIONAL 4.2.7.2.686 Marty as MATERNAL [phone] [facility] ical & CHILD [address] [place] [address] 2020-08-21 2020-08-21 Initial Emili [facility] [id number] Univers 14:51:44 16:19:05 Eric N COMPUTER SECURITY COORDINATOR 350.1.13.10 i ty of Visit [facility] 4.2.7.2.686 Marty as MATERNAL [phone] Med ical & CHILD [address] [place] [address] 2020-08-21 2020-08-21 Outpatient R EMILI, [facility] [id number] Univers 14:00:00 14:00:00 ERIC derrek of [facility] 2020-08-21 2020-08-21 Orders Doctor ADRIÁN 1.2.840.114 [id number] [facility] 00:00:00 00:00:00 Only Unassigned, BAILEY 350.1.13.10 ity of [facility] 4.2.7.2.686 Marty as [phone] [address] 2020-08-14 2020-08-14 Outpatient R [facility] [id number] [facility] 09:15:00 [facility] 2019-10-28 Outpatient Raju_P [facility] [id number] [place] 02:06:00 02:06:00 [facility] 2019-03-02 2019-03-02 Orders Doctor ADRIÁN 1.2.840.114 [id number] Univers 00:00:00 00:00:00 Only UnassignedBAILEY 350.1.13.10 ity of [place]room [facility] 4.2.7.2.686 Marty as [phone] [address] Results Test Description Test Time Test Comments Results Result Comments Source [facility] 2022-10-06 20:08:24 Test Item Value Reference Range Interpretation Comme nts MAGN[facility]IUM (test code = 9901091155) 1.9 mg/dL 1.7-2.4 Lab Interpretation (test code = 42313-2) [facility] (46359[facility]2022-10-06 20:08:04 Test Item Value Reference Range Interpretation Comments NA (test code = 137 mmol/L 135-145 0813178212) K (test code = 4.3 mmol/L 3.5-5.0 3189336359) CL (test code = 105 mmol/L 98-108 0697883852) CO2 TOTAL (test code = 22 mmol/L 23-31 L 2276529525) AGAP (test code = 10 2-16 2808881062) BUN (test code = 16 mg/dL 7-23 4219772714) GLUCOSE (test code = 82 mg/dL 70-110 6234016780) CREATININE (test code = 0.62 mg/dL 0.50-1.04 1005591326) TOTAL BILI (test code = 1.3 mg/dL 0.1-1.1 H 3704571066) CALCIUM (test code = 8.7 mg/dL 8.6-10.6 6660572179) T PROTEIN (test code = 7.8 g/dL 6.3-8.2 1224095527) ALBUMIN (test code = 4.4 g/dL 3.5-5.0 7443196063) ALK PHOS (test code = 123 U/L 34-122 H 0757177248) ALTv (test code = 28 U/L 5-35 1742-6) AST(SGOT) (test code = 24 U/L 13-40 7278232300) eGFR (test code = 115.5 mL/min/1.73m2 1703488148) NORM (test code = NORM) Association of Glomerular Filtration Rate (GFR) and Staging of Kidney Disease* + --+ --+ ------+| GFR (mL/min/1.73 m2) ?| With Kidney Damage ?| ?Without Kidney Damage+ --------+ --------+ +| ?>90 ?| ?Stage one ?| ? Normal ?+ ---+ ---+ -------+| ?60-89 ?| ?Stage two ?| ? Decreased GFR ? + --+ --+ ------+| ?30-59 ?| ?Stage three ?| ? Stage three ? + --+ --+ ------+| ?15-29 ?| ?Stage four ? | ? Stage four ?+ ---+ ---+ -------+| ?<15 (or dialysis) ? ?| ?Stage five ? | ? Stage five ?+ ---+ ---+ -------+ *Each stage assumes the associated GFR level has been in effect for at least three months. ?Stages 1 to 5, with or without kidney disease, indicate chronic kidney disease. Notes: Determination of stages one and two (with eGFR >59mL/min/1.73 m2) requires estimation of kidney damage for at least three months as defined by structural or functional abnormalities of the kidney, manifested by either:Pathological abnormalities or Markers of kidney damage (including abnormalities in the composition of the blood or urine or abnormalities in imaging tests). Lab Interpretation Abnormal (test code = 47031-6) [facility] Test Item Value Reference Range Interpretation Comments LIPASE (test code = 5974283545) 61 U/L 0-220 Lab Interpretation (test code = Normal 71810-6) [facility] WITH [id number] 20:04:23 Test Item Value Reference Range Interpretation Comments WBC (test code = 12.32 See_Comment H [Automated 6690-2) message] The sy stem which generated this result transmitted reference range : 4.30 - 11.10 10*3/?L. The reference range was not used to interpret this result as normal/abnormal . RBC (test code = 5.83 See_Comment H [Automated 789-8) message] The sy stem which generated this result transmitted reference range : 3.93 - 5.25 10*6/?L. The reference range was not used to interpret this result as normal/abnormal . HGB (test code = 11.3 g/dL 11.6-15.0 L 718-7) HCT (test code = 39.2 % 35.7-45.2 4544-3) MCV (test code = 67.2 fL 80.6-95.5 L 787-2) MCH (test code = 19.4 pg 25.9-32.8 L 785-6) MCHC (test code = 28.8 g/dL 31.6-35.1 L 786-4) RDW-SD (test code = 51.2 fL 39.0-49.9 H 34967-8) RDW-CV (test code = 22.5 % 12.0-15.5 H 788-0) PLT (test code = 333 See_Comment [Automated 777-3) message] The sy stem which generated this result transmitted reference range : 166 - 358 10*3/ ?L. The reference r eliezer was not used to interpret this result as normal/abnormal . MPV (test code = 10.9 fL 9.5-12.9 55733-6) IPF % (test code = 5.2 % 1.3-7.7 Platelet count 2755372591) measured by fluorescence method. NRBC/100 WBC (test 0.0 See_Comment [Automat ed code = 9268891352) message] The system which generated this result transmitted reference range : 0.0 - 10.0 /100 WBCs. The refer ence range was not u sed to interpret th is result as normal/abnormal . NRBC x10^3 (test code See_Comment [Auto mated = 2276054410) message] The s ystem which generated this result transmitted reference range : 10*3/?L. The reference range was not used to interpret this result as normal/abnormal . GRAN MAT (NEUT) % 76.9 % (test code = 770-8) IMM GRAN % (test code 0.30 % = 6811018130) LYMPH % (test code = 15.4 % 736-9) MONO % (test code = 4.5 % 5905-5) EOS % (test code = 2.3 % 713-8) BASO % (test code = 0.6 % 706-2) GRAN MAT x10^3(ANC) 9.46 10*3/uL 1.88-7.09 H (test code = 2103037257) IMM GRAN x10^3 (test 0.04 10*3/uL 0.00-0.06 code = 5239666369) LYMPH x10^3 (test code 1.90 10*3/uL 1.32-3.29 = 731-0) MONO x10^3 (test code 0.56 10*3/uL 0.33-0.92 = 742-7) EOS x10^3 (test code = 0.28 10*3/uL 0.03-0.39 711-2) BASO x10^3 (test code 0.08 10*3/uL 0.01-0.07 H = 704-7) Lab Interpretation Abnormal (test code = 14918-3) [facility]D) IMMUNE [id number] 16:36:07 Test Item Value Reference Range Interpretation Comments RHIG CANDIDATE? No- see comment Patient i s not a (test code = candidate for R hIg- 5055) Patient is Rh Positive.Perfor med at [facility] Laboratory [facility] Blood [address] [place] [id number] Free: [phone] A No. [id number] [facility] HospitalRHO (D) IMMUNE [id number] 16:36:07 Test Item Value Reference Range Interpretation Comments RHIG CANDIDATE? No- see comment Patient i s not a (test code = candidate for R hIg- 5055) Patient is Rh Positive.Perfor med at [facility] Laboratory [facility] Blood [address] [place] [id number] Free: [phone] A No. [id number] [facility] with Bfjvqmjwjbsv9389-18-86 13:09:16 Test Item Value Reference Range Interpretation Comments WBC (test code = 8.41 See_Comment [Automated 6875-2) message] The sy stem which generated this result transmitted reference range : 4.30 - 11.10 10*3/?L. The reference range was not used to interpret this result as normal/abnormal . RBC (test code = 4.93 See_Comment [Automated 753-8) message] The sy stem which generated this [...] RDW-SD (test code = 40.0 fL 39.0-49.9 26009-2) RDW-CV (test code = 18.6 % 12.0-15.5 H 788-0) PLT (test code = 272 See_Comment [Automated 615-3) message] The sy stem which generated this result transmitted reference range : 166 - 358 10*3/ ?L. The reference r eliezer was not used to interpret this result as normal/abnormal . MPV (test code = 9.8 fL 9.5-12.9 73536-2) NRBC/100 WBC (test 0.0 See_Comment [Automat ed code = 8429780045) message] The system which generated this result transmitted reference range : 0.0 - 10.0 /100 WBCs. The refer ence range was not u sed to interpret th is result as normal/abnormal . NRBC x10^3 (test code See_Comment [Auto mated = 1591176912) message] The s ystem which generated this result transmitted reference range : 10*3/?L. The reference range was not used to interpret this result as normal/abnormal . GRAN MAT (NEUT) % 68.7 % (test code = 770-8) IMM GRAN % (test code 0.60 % = 1684059637) LYMPH % (test code = 24.4 % 736-9) MONO % (test code = 5.4 % 5905-5) EOS % (test code = 0.5 % 713-8) BASO % (test code = 0.4 % 706-2) GRAN MAT x10^3(ANC) 5.79 10*3/uL 1.88-7.09 (test code = 3786932288) IMM GRAN x10^3 (test 0.05 10*3/uL 0.00-0.06 code = 8705600836) LYMPH x10^3 (test code 2.05 10*3/uL 1.32-3.29 = 731-0) MONO x10^3 (test code 0.45 10*3/uL 0.33-0.92 = 742-7) EOS x10^3 (test code = 0.04 10*3/uL 0.03-0.39 711-2) BASO x10^3 (test code 0.03 10*3/uL 0.01-0.07 = 704-7) Lab Interpretation Abnormal (test code = 25641-9) [facility] with Ryyowxngproa2720-51-71 13:09:16 Test Item Value Reference Range Interpretation Comments WBC (test code = 8.41 See_Comment [Automated 6690-2) message] The sy stem [...] RDW-SD (test code = 40.0 fL 39.0-49.9 67110-6) RDW-CV (test code = 18.6 % 12.0-15.5 H 788-0) PLT (test code = 272 See_Comment [Automated 777-3) message] The sy stem which generated this result transmitted reference range : 166 - 358 10*3/ ?L. The reference r eliezer was not used to interpret this result as normal/abnormal . MPV (test code = 9.8 fL 9.5-12.9 23830-0) NRBC/100 WBC (test 0.0 See_Comment [Automat ed code = 6999858154) message] The system which generated this result transmitted reference range : 0.0 - 10.0 /100 WBCs. The refer ence range was not u sed to interpret th is result as normal/abnormal . NRBC x10^3 (test code See_Comment [Auto mated = 8819091397) message] The s ystem which generated this result transmitted reference range : 10*3/?L. The reference range was not used to interpret this result as normal/abnormal . GRAN MAT (NEUT) % 68.7 % (test code = 770-8) IMM GRAN % (test code 0.60 % = 6253246623) LYMPH % (test code = 24.4 % 736-9) MONO % (test code = 5.4 % 5905-5) EOS % (test code = 0.5 % 713-8) BASO % (test code = 0.4 % 706-2) GRAN MAT x10^3(ANC) 5.79 10*3/uL 1.88-7.09 (test code = 7115436163) IMM GRAN x10^3 (test 0.05 10*3/uL 0.00-0.06 code = 3864721727) LYMPH x10^3 (test code 2.05 10*3/uL 1.32-3.29 = 731-0) MONO x10^3 (test code 0.45 10*3/uL 0.33-0.92 = 742-7) EOS x10^3 (test code = 0.04 10*3/uL 0.03-0.39 711-2) BASO x10^3 (test code 0.03 10*3/uL 0.01-0.07 = 704-7) Lab Interpretation Abnormal (test code = 21407-1) [facility]PRENATAL WORKUP, BLOOD [id number] 17:00:38 Test Item Value Reference Range Interpretation Comments ABO & RH (test code O Positive Performe d at [facility] = 20) Laboratory Serv [facility] Blood Bank[address] [place], [place] [address]Toll Free: [phone] A No. [id number] IAT (test code = Negative Performed a t [facility] 1185) Laboratory Serv [facility] Blood [address] [place], [place] [id number] Free: [phone] A No. [id number] [facility] WITH [id number] 16:26:18 Test Item Value Reference Range Interpretation Comments WBC (test code = 8.45 See_Comment [Automated 8390-2) message] The sy stem which generated this [...] RDW-SD (test code = 40.9 fL 39.0-49.9 31039-2) RDW-CV (test code = 18.7 % 12.0-15.5 H 788-0) PLT (test code = 256 See_Comment [Automated 777-3) message] The sy stem which generated this result transmitted reference range : 166 - 358 10*3/ ?L. The reference r eliezer was not used to interpret this result as normal/abnormal . MPV (test code = 9.4 fL 9.5-12.9 L 35544-3) NRBC/100 WBC (test 0.0 See_Comment [Automat ed code = 5074611966) message] The system which generated this result transmitted reference range : 0.0 - 10.0 /100 WBCs. The refer ence range was not u sed to interpret th is result as normal/abnormal . NRBC x10^3 (test code See_Comment [Auto mated = 2149377599) message] The s ystem which generated this result transmitted reference range : 10*3/?L. The reference range was not used to interpret this result as normal/abnormal . GRAN MAT (NEUT) % 75.4 % (test code = 770-8) IMM GRAN % (test code 0.70 % = 9641237118) LYMPH % (test code = 19.2 % 736-9) MONO % (test code = 4.1 % 5905-5) EOS % (test code = 0.4 % 713-8) BASO % (test code = 0.2 % 706-2) GRAN MAT x10^3(ANC) 6.37 10*3/uL 1.88-7.09 (test code = 4504251149) IMM GRAN x10^3 (test 0.06 10*3/uL 0.00-0.06 code = 5822112881) LYMPH x10^3 (test code 1.62 10*3/uL 1.32-3.29 = 731-0) MONO x10^3 (test code 0.35 10*3/uL 0.33-0.92 = 742-7) EOS x10^3 (test code = 0.03 10*3/uL 0.03-0.39 711-2) BASO x10^3 (test code 0.01-0.07 = 704-7) Lab Interpretation Abnormal (test code = 75349-4) [facility] WITH [id number] 16:26:18 Test Item Value Reference Range Interpretation Comments WBC (test code = 8.45 See_Comment [Automated 6690-2) message] The sy stem which generated this result transmitted reference range : 4.30 - 11.10 10*3/?L. The reference range was not used to interpret this result as normal/abnormal . RBC (test code = 5.01 See_Comment [Automated 569-8) message] The sy stem which generated this [...] RDW-SD (test code = 40.9 fL 39.0-49.9 08297-8) RDW-CV (test code = 18.7 % 12.0-15.5 H 788-0) PLT (test code = 256 See_Comment [Automated 777-3) message] The sy stem which generated this result transmitted reference range : 166 - 358 10*3/ ?L. The reference r eliezer was not used to interpret this result as normal/abnormal . MPV (test code = 9.4 fL 9.5-12.9 L 04183-8) NRBC/100 WBC (test 0.0 See_Comment [Automat ed code = 0634805328) message] The system which generated this result transmitted reference range : 0.0 - 10.0 /100 WBCs. The refer ence range was not u sed to interpret th is result as normal/abnormal . NRBC x10^3 (test code See_Comment [Auto mated = 9293964835) message] The s ystem which generated this result transmitted reference range : 10*3/?L. The reference range was not used to interpret this result as normal/abnormal . GRAN MAT (NEUT) % 75.4 % (test code = 770-8) IMM GRAN % (test code 0.70 % = 9631828222) LYMPH % (test code = 19.2 % 736-9) MONO % (test code = 4.1 % 5905-5) EOS % (test code = 0.4 % 713-8) BASO % (test code = 0.2 % 706-2) GRAN MAT x10^3(ANC) 6.37 10*3/uL 1.88-7.09 (test code = 3528953796) IMM GRAN x10^3 (test 0.06 10*3/uL 0.00-0.06 code = 9577512047) LYMPH x10^3 (test code 1.62 10*3/uL 1.32-3.29 = 731-0) MONO x10^3 (test code 0.35 10*3/uL 0.33-0.92 = 742-7) EOS x10^3 (test code = 0.03 10*3/uL 0.03-0.39 711-2) BASO x10^3 (test code 0.01-0.07 = 704-7) Lab Interpretation Abnormal (test code = 57832-3) [facility] URINALYSIS W/O SPECIFIC [id number] 19:58:00 Test Item Value Reference Range Interpretation [...] code = 3257) n/a Negative - Negative [facility]AD [facility] ONLY - [id number] 11:38:01 Test Item Value Reference Range Interpretation Comments RPR (Qualitative) (test code = Nonreactive Nonreactive 78123-4) Lab Interpretation (test code = Normal 09096-2) [facility] HospitalHIV 1/2 AG-AB WITH [id number] 08:22:15 Test Item Value Reference Range Interpretation Comments HIV 0.14 Negative Semi-quantitative (test code = 16392-3) NORM (test code = Non-reactive for HIV-1 NORM) antigen and HIV-1/HIV-2 antibodies. ?No laboratory evidence of HIV infection. ?Repeat in 2-4 weeks if acute HIV infection is suspected. [facility] HospitalType and Screen - ONCE [id number] 07:35:21 Test Item Value Reference Range Interpretation Comments ABO & RH (test code O Positive Performe d at [facility] = 20) Laboratory Serv [facility] Blood Bank[address] [place], [place] [address]Toll Free: [phone] A No. [id number] IAT (test code = Negative Performed a t [facility] 1185) Laboratory Serv [facility] Blood Bank[address] [place], [place] [address]Toll Free: [phone] A No. [id number] [facility]CBC WITH [id number] 07:08:09 Test Item Value Reference Range Interpretation Comments WBC (test code = 10.11 See_Comment [Automated 6190-2) message] The sy stem which generated this [...] RDW-SD (test code = 39.1 fL 39.0-49.9 89055-7) RDW-CV (test code = 17.8 % 12.0-15.5 H 788-0) PLT (test code = 293 See_Comment [Automated 777-3) message] The sy stem which generated this result transmitted reference range : 166 - 358 10*3/ ?L. The reference r eliezer was not used to interpret this result as normal/abnormal . MPV (test code = 10.2 fL 9.5-12.9 59323-6) NRBC/100 WBC (test 0.0 See_Comment [Automat ed code = 9904840312) message] The system which generated this result transmitted reference range : 0.0 - 10.0 /100 WBCs. The refer ence range was not u sed to interpret th is result as normal/abnormal . NRBC x10^3 (test code See_Comment [Auto mated = 5815564539) message] The s ystem which generated this result transmitted reference range : 10*3/?L. The reference range was not used to interpret this result as normal/abnormal . GRAN MAT (NEUT) % 70.4 % (test code = 770-8) IMM GRAN % (test code 0.80 % = 1120370012) LYMPH % (test code = 22.0 % 736-9) MONO % (test code = 5.6 % 5905-5) EOS % (test code = 0.7 % 713-8) BASO % (test code = 0.5 % 706-2) GRAN MAT x10^3(ANC) 7.12 10*3/uL 1.88-7.09 H (test code = 3987238574) IMM GRAN x10^3 (test 0.08 10*3/uL 0.00-0.06 H code = 3023033492) LYMPH x10^3 (test code 2.22 10*3/uL 1.32-3.29 = 731-0) MONO x10^3 (test code 0.57 10*3/uL 0.33-0.92 = 742-7) EOS x10^3 (test code = 0.07 10*3/uL 0.03-0.39 711-2) BASO x10^3 (test code 0.05 10*3/uL 0.01-0.07 = 704-7) Lab Interpretation Abnormal (test code = 01710-8) [facility] [id number] 15:51:00 Test Item Value Reference Range Interpretation [...] code = 3257) negative Negative - Negative [facility] HospitalPOCT [facility] W/O SPECIFIC [id number] 15:47:00 Test Item Value Reference Range Interpretation [...] code = 3257) negative Negative - Negative [facility] URINALYSIS W/O SPECIFIC [id number] 15:04:00 Test Item Value Reference Range Interpretation [...] code = 3257) n/a Negative - Negative [facility] MOLECULAR [id number] 17:47:40 Test Item Value Reference Range Interpretation Comments POCT Molecular FluA (test code = Negative Negative 74599-0) POCT Molecular FluB (test code = Negative Negative 13869-5) Lab Interpretation (test code = Normal 81176-1) [facility] MOLECULAR [id number] 17:40:36 Test Item Value Reference Range Interpretation Comments POCT Molecular Strep (test code = Negative Negative 64212-9) Lab Interpretation (test code = Normal 69996-4) [facility] URINALYSIS W/O SPECIFIC [id number] 14:49:00 Test Item Value Reference Range Interpretation [...] code = 3257) Negative Negative - Negative [facility] URINALYSIS W/O SPECIFIC [id number] 16:35:00 Test Item Value Reference Range Interpretation [...] (test code = 3257) Negative - Negative [facility]PO[facility] W/O SPECIFIC [id number] 15:41:00 Test Item Value Reference Range Interpretation [...] code = 3257) n/a Negative - Negative [facility]CIFIC [id number] 15:41:00 Test Item Value Reference Range Interpretation [...] code = 3257) n/a Negative - Negative [facility]CIFIC [id number] 21:58:00 Test Item Value Reference Range Interpretation [...] code = 3257) na Negative - Negative [facility] W/O SPECIFIC [id number] 21:58:00 Test Item Value Reference Range Interpretation [...] code = 3257) na Negative - Negative [facility] W/O SPECIFIC [id number] 21:58:00 Test Item Value Reference Range Interpretation [...] code = 3257) na Negative - Negative [facility] [id number] 22:00:08 Test Item Value Reference Range Interpretation Comments APPEARANCE (test code = Clear Clear 0074145782) COLOR (test code = Yellow Colorless A 4410800418) PH (test code = 4.8-8.0 1800382293) SP GRAVITY (test code = 1.003-1.035 6052242464) GLU U QUAL (test code = Negative Negative 4423204592) BLOOD (test code = Negative Negative 8284926286) KETONES (test code = Negative Negative 6033299707) PROTEIN (test code = Negative Negative 2887-8) UROBILIN (test code = Normal Normal 3271291523) BILIRUBIN (test code = Negative Negative 5513527598) NITRITE (test code = Negative Negative 1474502937) LEUK VALENTINE (test code = Negative Negative 4490873421) RBC/HPF (test code = See_Comment [Autom ated message] 8763308505) The system [employer] generated this result transmitted ref erence range: 0 - 3 HP F. The reference range was not used to int erpret this result as normal/abnormal . WBC/HPF (test code = See_Comment [Autom ated message] 1381460784) The system [employer] generated this result transmitted ref erence range: 0 - 5 HP F. The reference range was not used to int erpret this result as normal/abnormal . BACTERIA (test code = Few Negative A 0624591791) MUCOUS (test code = Slight Negative LPF A 1265845998) SQ EPITH (test code = HPF 5026946731) Lab Interpretation (test Abnormal code = 69235-8) [facility] CLC OR L[facility] ONLY - WET [id number] 21:45:14 Test Item Value Reference Range Interpretation Comments CLUE CELLS WET PREP (test code = Moderate None Seen HPF A 9051969964) BACTERIA WET PREP (test code = Few None Seen HPF A 3954061110) WBC WET PREP (test code = Few None Seen HPF A 9049310289) RBC WET PREP (test code = None Seen None Seen HPF 9341108604) TRICHOMONAS WET PREP (test code = None Seen None Seen HPF 3655916519) YEAST WET PREP (test code = Few None Seen HPF A 9492527241) Lab Interpretation (test code = Abnormal 06719-9) [facility] URINALYSIS W/O SPECIFIC [id number] 14:51:00 Test Item Value Reference Range Interpretation [...] code = 3257) n/a Negative - Negative [facility] [id number] 13:51:00 Test Item Value Reference Range Interpretation Comments POCT PREG (test code = 1605) Positive On board controls acceptable with C Yes Line (test code = 3574) POCT PREG LOT # (test code = 3575) POCT PREG TEST DATE (test code = 3576) [facility] W/O SPECIFIC [id number] 13:51:00 Test Item Value Reference Range Interpretation [...] code = 3257) n/a Negative - Negative [facility]POIA [id number] 13:51:00 Test Item Value Reference Range Interpretation Comments POCT PREG (test code = 1605) Positive On board controls acceptable with C Yes Line (test code = 3574) POCT PREG LOT # (test code = 3575) POCT PREG TEST DATE (test code = 3576) [facility] W/O SPECIFIC [id number] 13:51:00 Test Item Value Reference Range Interpretation [...] code = 3257) n/a Negative - Negative [facility]"
[2022-12-01] MEDS ORDERED: predniSONE 20 MG TAB ONE (08:47)
[2022-12-01] MEDS ORDERED: FAMOTIDINE 20 MG TAB ONE (08:47)
[2022-12-01 09:44] VITALS: TEMP 98.1
[2022-12-01 09:46] VITALS: BP 121/73; O2SAT 99
== END 2022-12-01 09:27 | disposition home or self-care (01) ==
LOC: ER 08:17
DX: H00.012 Hordeolum externum right lower eyelid (principal); H10.89 Other conjunctivitis
CPT/HCPCS: 99283; J7512

== ENCOUNTER 2023-03-30 20:37 | Emergency (ER) | payer OTHER ==
--- OUTSIDE RECORDS SUMMARY | 2023-03-30 21:13 | XMS REPORT | Continuity of Care Document ---
:1995 Author Organization [facility] t Address [address] [place] [address] Care Team Providers Name Role Phone Avelino Roman Primary Care Physician AVELINO REID Attending Clinician Unavailable Doctor Unassigned, [place] Attending Clinician Unavailable Lab, Ang - Db Attending Clinician Unavailable Avelino Roman Attending Clinician Tamara Alexis LVN Attending Clinician Unavailable Rebekah Vaz MD Attending Clinician REBEKAH VAZ Attending Clinician Unavailable Ghanshyam DAWSON Attending Clinician Unavailable Ghanshyam Denise Attending Clinician Kip Ware Attending Clinician Unknown, Attending Attending Clinician Unavailable KIP DANIEL Attending Clinician Unavailable Demarco MCKINLEY, Severo Attending Clinician Unavailable ANGELO RODRIGUEZ Attending Clinician Unavailable ANGELO RODRIGUEZ Attending Clinician Unavailable Niki Mann RN Attending Clinician Unavailable Fontanevangelist III, ADMINISTRATIVE OFFICE ASSISTANT, R Attending Clinician Lupis GOTTLIEB, Jeremie Attending Clinician [phone] Pob, Adc Lab Main Attending Clinician Unavailable Ultrasound, Ang-Mfm Attending Clinician Unavailable Shawn Alfaro DO Attending Clinician Eleuterio GOTTLIEB, Severo Simmons Attending Clinician SEVERO MCCLELLAN Attending Clinician Unavailable SEVERO MCCLELLAN Attending Clinician Unavailable Kyle MCKINLEY, Manuel Álvarez Attending Clinician Unavailable Cierra MCKINLEY, Valarie Attending Clinician Unavailable Johann MCKINLEY, Trinity Álvarez Attending Clinician Unavailable EBCECELIA LARA Attending Clinician Unavailable Ebrahim BSS SOLUTION ARCHITECTCecelia Attending Clinician Provider, [facility] Attending Clinician Unavailable ROD PRICE Attending Clinician Unavailable SUSANNA WOO Attending Clinician Unavailable Amna GOTTLIEB, Susanna Negrete Attending Clinician [phone] Pcp, Patient Does Not Have A Attending Clinician [phone] SHAWN ALFARO Attending Clinician Unavailable 2, [facility] Attending Clinician Unavailable KASHIF RYAN Attending Clinician Unavailable [place] Kashif COY Attending Clinician King ALLISON MD, James C Attending Clinician CAROLYN AMATO Attending Clinician Unavailable Carolyn Amato DO Attending Clinician KASSIDY PARSONS Attending Clinician Unavailable Kassidy Parsons MD Attending Clinician MAICO SAINI Attending Clinician Unavailable Makayla Lechuga Attending Clinician Unavailable Maico Saini MD Attending Clinician Antoine MCKINLEY, Jennifer Attending Clinician Unavailable JOHNNA CHOWDHURY Attending Clinician Unavailable Faculty, [facility] R[facility]anton[facility] Attending Clinician Unavailable Johnna Chowdhury MD Attending Clinician [phone] Ultrasound, [facility] Attending Clinician Unavailable JULIAN ELENA Attending Clinician Unavailable Julian Elena MD Attending Clinician Rod Price MD Attending Clinician Nurse, [facility] Attending Clinician Unavailable 1, [facility] Attending Clinician Unavailable Mayo MCKINLEY, Christine Attending Clinician Unavailable Aydin Ferrera MD Attending Clinician 2, [facility] Attending Clinician Unavailable Jamila Zaldivar MD Attending Clinician Nurse, [facility] Attending Clinician Unavailable Ana Cristina Coates RN Attending Clinician Unavailable Conchita Hoskins PA-C Attending Clinician Wicho Boateng DO Attending Clinician Nurse, [facility] Attending Clinician Unavailable Linda Denson [...] Unavailable LIBBY GR Attending Clinician Unavailable Simón BSS SOLUTION ARCHITECTLibby Colón Attending Clinician Soni Rivera Attending Clinician MUKUND SOTO Attending Clinician Unavailable Mukund Celaya Attending Clinician ERIC MOCK Attending Clinician Unavailable Eric Osorio Attending Clinician AMANDA CHINCHILLA Attending Clinician Unavailable Hill Barfield MD Attending Clinician Jl GOTTLIEB, Adrián Simmons Attending Clinician TAB KERNS Attending Clinician Unavailable Jeanne, Ang-Rmchp Attending Clinician Unavailable Visit, Ang-chp Nurse Attending Clinician Unavailable Ang SNOWP, Kathryn Miranda Attending Clinician Fellow, [facility] Attending Clinician Unavailable Jurgen MCKINLEY, Chuy Attending Clinician Unavailable Bonnie [facility], Tab Guerrero Attending Clinician [phone] Damien MCKINLEY, Ellie Zhao Attending Clinician Unavailable Franklin GOTTLIEB, Kandi Attending Clinician Fish GOTTLIEB, Brandon Miranda Attending Clinician Diana GOTTLIEB, Tammy Simmons Attending Clinician ROBERT HARVEY Attending Clinician Unavailable Roberth GOTTLIEB, Emmanuel Mckeon Attending Clinician Maldonado Marie MD Attending Clinician [facility] Rhonda Howe Attending Clinician Risk, Xyv-Bwlbk-Aq/High Attending Clinician Unavailable Dee [facility], Onelia Pan Attending Clinician Raju_P Attending Clinician Unavailable SUSANNA WOO Admitting Clinician Unavailable JAMILA ZALDIVAR Admitting Clinician Unavailable SEVERO MCCLELLAN Admitting Clinician Unavailable Ghanshyam DAWSON Admitting Clinician Unavailable REBEKAH VAZ Admitting Clinician Unavailable Татьяна GOTTLIEB, Rebekah Mcmanus Admitting Clinician Susanna Woo MD Admitting Clinician [phone] CAROLYN AMATO Admitting Clinician Unavailable Jamila Zaldivar MD Admitting Clinician Julian Elena MD Admitting Clinician Raju_P Admitting Clinician Unavailable Payers Payer Name Policy Type Policy Number Effective Date Expiration Date Kris dave [facility] [id number] 2020 00:00:00 Problems Condition Condition Condition Status Onset Resolution Last Treating Co mments Source Name Details Category Date Date Treatment Clinician Date Acute Acute Disease Active Univers cough cough 01-02 ity of 00:00: [place] [facility] Upper Upper Disease Active Univers respirator respirator 01-02 it y of y tract y tract 00:00: [place] infection, infection, 00 Me dical unspecifie unspecifie Br anch d type d type Bipolar Bipolar Disease Active Univers affective affective 12-09 ity of disorder, disorder, 00:00: [place] z[place] current current 00 Medical episode episode Branch mixed, mixed, current current episode episode severity severity unspecifie unspecifie d d Abnormal Abnormal Disease Active Unive rs finding on finding on 12-09 it y of diagnostic diagnostic [place] imaging of 00 Me dical kidney kidney Branch Acute Acute Disease Active Univers midline midline 12-09 ity of low back low back 00:00: [place] pain with pain with 00 [facility] bilateral bilateral Bran ch sciatica sciatica Liveborn Liveborn Disease Active Unive rs , of , of 2-09 it y of mer[place] merlos 00:00: [place] , , 00 Me dical born in born in [facility] hospital by by delivery delivery Tubal Tubal Disease Active Univers ligation ligation 1-27 [place] of evaluation [place] [facility] Chronic Chronic Disease Active 2021-08 Univers hypertensi hypertensi 2-29 it y of on during on during 00:00: Mel zhao [address] [facility] Disease Active Univers ligament ligament 9-30 ity of pain pain 00:00: [place] 00 Medical Branch History of History of Disease Active U nivers 6-30 ity of delivery, delivery, 00:00: [place] currently currently 00 [facility] Branch History of History of Disease Active U nivers miscarriag miscarriag 6-27 it y of e, e, 00:00: [place] currently currently 00 [facility] Branch Tobacco Tobacco Disease Active Univers abuse abuse 6-27 ity of 00:00: [place] 00 Medical Branch Previous Previous Disease Active Unive rs 9-01 ity of section section 00:00: [place] 00 Medical Branch 38 weeks 38 weeks Disease Active Unive rs gestation gestation 8-29 ity of of of 00:00: [place] 00 Medi rosa isela Branch COVID-19 COVID-19 Disease Active Unive rs [...] of Disease Active U nivers gestationa gestationa 1- it y of l l 00:00: [place] [...] albuterol nebulizer and xopinex.I CD10 Diagnosis Term Video Manager Utility Anxiety Anxiety Disease Active Overview: Univ ers and and 2-16 Formattin ity of depression depression 00:00: g of this [place] 00 note Medical might be Branch different from the original. Bipolar- since age 16-17 with suicidal attempt with conflict with mom. Trial of antidepre ssant and stopped med due to thyroid med problem. No med last 2 years.. Cannot control anger. No manic state. History of History of Disease Active Overview : Univers seizures seizures 2-16 Formattin ity of 00:00: g of this [place] 00 note Medical might be Branch different [...] [place] [facility] Prometha Propensi Active Itching 2018- Itching Univ ers zine Hcl ty to 09-02 and hives ity o f adverse 00:00: [place] reaction 00 Medical s Branch PROMETHA DRUG Active ITCHING 2018- Univers ZINE HCL INGREDI 09-02 ity of 00:00: [place] 00 Medical Branch Adhesive Propensi Active Rash 2016-0 Univer s Tape-Fannie ty to 3-08 ity of icones adverse 00:00: [place] reaction 00 Medical s Branch ADHESIVE DRUG Active Rash 2015- Univers TAPE-FANNIE 3-08 ity of ICONES 00:00: [place] 00 [facility] Branch Hydrocod Drug Active Itching 2011-0 itching Univer s one Allergy 8-27 ity of 00:00: [place] 00 [facility] HYDROCOD DRUG Active Low Rash 2011- Univers ONE INGREDI 8-27 ity of 00:00: [place] 00 [facility] Social History Social Habit Start Date Stop Date Quantity Comments Source ASSERTION 2022-01-02 [place] of 00:00:00 [facility] Gender identity Universit y of [facility] Sexual orientation Univer sity of [facility] Alcohol intake 2023-01-02 2023-01-02 0 /d University of 00:00:00 00:00:00 [facility] Exposure to 2022-11-29 2022-12-09 Not sure [facility] SARS-CoV-2 (event) 00:00:00 10:48:00 [facility] History of Social 2022-08-21 2022-08-21 Univers ity of function 00:00:00 00:00:00 [facility] Cigarettes smoked 2022-02-27 2022-02-27 Univers ity of current (pack per 00:00:00 00:00:00 [facility] ) - Reported Branch Cigarette 2022-02-27 2022-02-27 University of pack-years 00:00:00 00:00:00 [facility] Tobacco use and 2022-02-27 2022-02-27 Smokeless Universit y of exposure 00:00:00 00:00:00 tobacco non-user [facility] Tobacco Comment 2022-02-27 2022-02-27 2-3 cig /day Univers ity of 00:00:00 00:00:00 [facility] History of tobacco 2020-08-14 Cigarette Smoker University of use 00:00:00 [facility] Sex Ass[birth year] At [birth year] NIKIA Child[facility] 00:00:00 00:00:00 [facility] Smoking Status Start Date Stop Date Source Smokes tobacco daily 2022-02-27 00:00:00 Univers ity of [facility] Medications Ordered Filled Start Stop Current Ordering Indication Dosage Frequency Signature Comments Components Source Medication Medication Date Date Medication? Clinician (SIG) Name Name medroxyPROG 2022- No [id number] 150mg Univers ESTERone 01-02 ity of (DEPO-PROVE 20:45: 20:12 [place] RA) syringe 00 :00 Medical 150 mg Branch medroxyPROG 2022- No [id number] 150mg 150 mg, Univers ESTERone 01-02 Intramuscu ity of (DEPO-PROVE 20:45: 20:12 lar, ONCE, [place] RA) syringe 00 :00 1 dose, On Me dical 150 mg Thu01/02/23 Branch at 1545, Routine medroxyPROG 2022- No [id number] 150mg Univers ESTERone 01-02 ity of (DEPO-PROVE 20:45: 20:12 [place] RA) syringe 00 :00 Medical 150 mg Branch medroxyPROG 2022- No [id number] 150mg 150 mg, Univers ESTERone 01-02 Intramuscu ity of (DEPO-PROVE 20:45: 20:12 lar, ONCE, [place] RA) syringe 00 :00 1 dose, On Me dical 150 mg Thu01/02/23 Branch at 1545, Routine AZITHROMYCI Yes [id number] 500MG on Univers N 250 mg 01-02 day 1, ity of tablet 00:00: then 250mg [place] days 2-5 Medical Branch AZITHROMYCI 2022-0 Yes [id number] 500MG on Univers N 250 mg 01-02 day 1, ity of tablet 00:00: then 250mg [place] days 2-5 Medical Branch AZITHROMYCI 2022-0 Yes [id number] 500MG on Univers N 250 mg 01-02 day 1, ity of tablet 00:00: then 250mg days 2-5 Medical Branch AZITHROMYCI 2022-0 Yes [id number] 500MG on Univers N 250 mg 01-02 day 1, ity of tablet 00:00: then 250mg days 2-5 Medical Branch AZITHROMYCI 2022-0 Yes [id number] 500MG on Univers N 250 mg 01-02 day 1, ity of tablet 00:00: then 250mg days 2-5 Medical Branch AZITHROMYCI 2022-0 Yes [id number] 500MG on Univers N 250 mg 01-02 day 1, ity of tablet 00:00: then 250mg days 2-5 Medical Branch AZITHROMYCI 2022-0 Yes [id number] 500MG on Univers N 250 mg 01-02 day 1, ity of tablet 00:00: then 250mg days 2-5 Medical Branch AZITHROMYCI 2022-0 Yes [id number] 500MG on Univers N 250 mg 01-02 day 1, ity of tablet 00:00: then 250mg days 2-5 Medical Branch AZITHROMYCI 2022-0 Yes [id number] 500MG on Univers N 250 mg 01-02 day 1, ity of tablet 00:00: then 250mg days 2-5 Medical Branch bromphenira 2022-0 2022- Yes [id number] 10mL Take 10 mL Univers mine-pseudo 01-02 by mouth 4 i ty of ephedrine-D 00:00: 04:59 (four) [place] as M (BROMFED 00 :00 times Medical DM) 2-30-10 daily as Bran ch mg/5 mL needed for syrup Congestion /Allergies for up to 10 days. ondansetron 2022-0 2022- Yes [id number] 4mg Take 1 Univers (ZOFRAN) 4 01-02 tablet by ity of mg tablet 00:00: 04:59 mouth [place] 00 :00 every 8 Medical (eight) Branch hours as needed for Nausea and Vomiting (N/V) for up to 10 days. bromphenira 2022- Yes [id number] 10mL Take 10 mL Univers mine-pseudo 01-0213 by mouth 4 i ty of ephedrine-D 00:00: 04:59 (four) [place] M (BROMFED 00 :00 times Medical DM) 2-30-10 daily as Bran ch mg/5 mL needed for syrup Congestion /Allergies for up to 10 days. ondansetron 2022-2022- Yes [id number] 4mg Take 1 Univers (ZOFRAN) 4 01-02 tablet by ity of mg tablet 00:00: 04:59 mouth [place] 00 :00 every 8 Medical (eight) Branch hours as needed for Nausea and Vomiting (N/V) for up to 10 days. bromphenira 2022- Yes [id number] 10mL Take 10 mL Univers mine-pseudo 01-02 by mouth 4 i ty of ephedrine-D 00:00: 04:59 (four) [place] M (BROMFED 00 :00 times Medical DM) 2-30-10 daily as Bran ch mg/5 mL needed for syrup Congestion /Allergies for up to 10 days. ondansetron 2022-2022- Yes [id number] 4mg Take 1 Univers (ZOFRAN) 4 01-02 tablet by ity of mg tablet 00:00: 04:59 mouth [place] 00 :00 every 8 Medical (eight) Branch hours as needed for Nausea and Vomiting (N/V) for up to 10 days. bromphenira 2022- Yes [id number] 10mL Take 10 mL Univers mine-pseudo 01-0213 by mouth 4 i ty of ephedrine-D 00:00: 04:59 (four) [place] M (BROMFED 00 :00 times Medical DM) 2-30-10 daily as Bran ch mg/5 mL needed for syrup Congestion /Allergies for up to 10 days. ondansetron 2022-0 2022- Yes [id number] 4mg Take 1 Univers (ZOFRAN) 4 01-0213 tablet by ity of mg tablet 00:00: 04:59 mouth [place] 00 :00 every 8 Medical (eight) Branch hours as needed for Nausea and Vomiting (N/V) for up to 10 days. bromphenira 2022- Yes [id number] 10mL Take 10 mL Univers mine-pseudo 01-0213 by mouth 4 i ty of ephedrine-D 00:00: 04:59 (four) [place] M (BROMFED 00 :00 times Medical DM) 2-30-10 daily as Bran ch mg/5 mL needed for syrup Congestion /Allergies for up to 10 days. ondansetron 2022- Yes [id number] 4mg Take 1 Univers (ZOFRAN) 4 01-02 tablet by ity of mg tablet 00:00: 04:59 mouth [place] 00 :00 every 8 Medical (eight) Branch hours as needed for Nausea and Vomiting (N/V) for up to 10 days. bromphenira 2022- Yes [id number] 10mL Take 10 mL Univers mine-pseudo 01-02 by mouth 4 i ty of ephedrine-D 00:00: 04:59 (four) [place] M (BROMFED 00 :00 times Medical DM) 2-30-10 daily as Bran ch mg/5 mL needed for syrup Congestion /Allergies for up to 10 days. ondansetron 2022-2022- Yes [id number] 4mg Take 1 Univers (ZOFRAN) 4 01-02 tablet by ity of mg tablet 00:00: 04:59 mouth [place] 00 :00 every 8 Medical (eight) Branch hours as needed for Nausea and Vomiting (N/V) for up to 10 days. bromphenira 2022- Yes [id number] 10mL Take 10 mL Univers mine-pseudo 01-0213 by mouth 4 i ty of ephedrine-D 00:00: 04:59 (four) [place] M (BROMFED 00 :00 times Medical DM) 2-30-10 daily as Bran ch mg/5 mL needed for syrup Congestion /Allergies for up to 10 days. ondansetron 2022-2022- Yes [id number] 4mg Take 1 Univers (ZOFRAN) 4 01-02-13 tablet by ity of mg tablet 00:00: 04:59 mouth [place] 00 :00 every 8 Medical (eight) Branch hours as needed for Nausea and Vomiting (N/V) for up to 10 days. ibuprofen 2022-0 2022- No [id number] 600mg Take 1 Univers 600 mg 5-09 05-24 tablet by ity of tablet 00:00: 04:59 mouth [place] 00 :00 every 6 Medical (six) Branch hours as needed for Temp > 38.5 C for up to 14 days. ibuprofen 2022-0 2022- No [id number] 600mg Take 1 Univers 600 mg 5-09 05-24 tablet by ity of tablet 00:00: 04:59 mouth [place] 00 :00 every 6 Medical (six) Branch hours as needed for Temp > 38.5 C for up to 14 days. ibuprofen 2022-0 2022- No [id number] 600mg Take 1 Univers 600 mg 5-09 05-24 tablet by ity of tablet 00:00: 04:59 mouth [place] 00 :00 every 6 Medical (six) Branch hours as needed for Temp > 38.5 C for up to 14 days. ibuprofen 2022-0 2022- No [id number] 600mg Take 1 Univers 600 mg 5-09 05-24 tablet by ity of tablet 00:00: 04:59 mouth [place] 00 :00 every 6 Medical (six) Branch hours as needed for Temp > 38.5 C for up to 14 days. ibuprofen 2022-0 2022- No [id number] 600mg Take 1 Univers 600 mg 5-09 05-24 tablet by ity of tablet 00:00: 04:59 mouth [place] 00 :00 every 6 Medical (six) Branch hours as needed for Temp > 38.5 C for up to 14 days. ibuprofen 2022-0 2022- No [id number] 600mg Take 1 Univers 600 mg 5-09 05-24 tablet by ity of tablet 00:00: 04:59 mouth [place] 00 :00 every 6 Medical (six) Branch hours as needed for Temp > 38.5 C for up to 14 days. ibuprofen 2022-0 2022- No [id number] 600mg Take 1 Univers 600 mg 5-09 05-24 tablet by ity of tablet 00:00: 04:59 mouth [place] 00 :00 every 6 Medical (six) Branch hours as needed for Temp > 38.5 C for up to 14 days. ibuprofen 2022-2022- No [id number] 600mg Take 1 Univers 600 mg 12-0924 tablet by ity of tablet 00:00: 04:59 mouth [place] 00 :00 every 6 Medical (six) Branch hours as needed for Temp > 38.5 C for up to 14 days. ibuprofen 2022-0 2022- No [id number] 600mg Take 1 Univers 600 mg 12-0924 tablet by ity of tablet 00:00: 04:59 mouth [place] 00 :00 every 6 Medical (six) Branch hours as needed for Temp > 38.5 C for up to 14 days. NaCl 0.9% 2022- No 1000mL at 999 Uni vers (NS) bolus 10-0607 mL/hr, ity of infusion 23:45: 11:44 1,000 mL, [place] as 1,000 mL 00 :00 IV Medical Infusion, Branch ONCE, 1 dose, On Thu10/06/22 at 1745, STAT ketorolac 2022- No 15mg 15 mg, Unive rs (TORADOL) 10-06 Slow IV ity of injection 21:45: 21:25 Push, [place] 15 mg 00 :00 ONCE, 1 Medical dose, On Branch Thu10/06/22 at 1545, WENDI iopamidol 2022- No [id number] 100mL 100 mL, Univers (ISOVUE 10-06 Intravenou ity o f 370-500 mL) 21:14: 21:13 s, ONCE, 1 [place] injection 00 :00 dose, On Medica l 100 mL Thu10/06/22 Branch at 1530, Routine cefTRIAXone 2022- No 1000mg 1,000 mg, Univers (ROCEPHIN) 10-06 IV ity of 1,000 mg in 20:45: 22:56 Piggyback, [place] NaCl 0.9% 00 :00 ONCE, 1 Medical (NS) 100 mL dose, On Bran ch MINI-BAG Thu10/06/22 at 1445, Administer over 30 Minutes, 100 mL
Reas on for Anti-Infec tive: Documented Infection< br>Documen vivek Infection Site: Urine<br&g t;Duration of Therapy: 7 days cephALEXin 2023-0 2023- No [id number] 500mg Take 1 Univers (KEFLEX) 10-06 capsule by ity of 500 mg 00:00: 04:59 mouth 4 [place] capsule 00 :00 ([facility] times [place] daily for 10 days. cephALEXin 2023-0 2023- No [id number] 500mg Take 1 Univers (KEFLEX) 10-06 capsule by ity of 500 mg 00:00: 04:59 mouth 4 [place] capsule 00 :00 ([facility] times [place] daily for 10 days. cephALEXin 3-0 2023- No [id number] 500mg Take 1 Univers (KEFLEX) 10-06 capsule by ity of 500 mg 00:00: 04:59 mouth 4 [place] capsule 00 :00 ([facility] times [place] daily for 10 days. cephALEXin 3-0 2023- No [id number] 500mg Take 1 Univers (KEFLEX) 10-06 capsule by ity of 500 mg 00:00: 04:59 mouth 4 [place] capsule 00 :00 ([facility] times [place] daily for 10 days. cephALEXin 3-0 2022- No [id number] 500mg Take 1 Univers (KEFLEX) 10-06 capsule by ity of 500 mg 00:00: 04:59 mouth 4 [place] capsule 00 :00 ([facility] daily for 10 days. cefdinir 3-0 2023- No [id number] 300mg Take 1 U nivers 300 mg 10-06 capsule by ity of capsule 00:00: 04:59 mouth in [place] 00 :00 the Medical morning Branch and 1 capsule in the evening. Do all this for 7 days. cefdinir 3-0 2023- No [id number] 300mg Take 1 U nivers 300 mg 10-06 capsule by ity of capsule 00:00: 04:59 mouth in [place] 00 :00 the [facility] morning Branch and 1 capsule in the evening. Do all this for 7 days. cefdinir 2023-0 2023- No [id number] 300mg Take 1 U nivers 300 mg 10-06 capsule by ity of capsule 00:00: 04:59 mouth in [place] 00 :00 the [facility] morning Branch and 1 capsule in the evening. Do all this for 7 days. ibuprofen 2023-0 Yes 600mg 600 mg, Univ ers (IBU) 2-11 Oral, Q6H ity of tablet 600 06:00: ABX, First [place] mg 00 dose on Medical Sat Branch 09/13/22 at 0000, Until Discontinu ed, Routine ibuprofen 2023-0 Yes 600mg 600 mg, Univ ers (IBU) 2-11 Oral, Q6H ity of tablet 600 06:00: ABX, [place] mg 00 dose on Medical Sat Branch 09/13/22 at 0000, Until Discontinu ed, Routine cetirizine 2023-0 Yes 5mg 5 mg, Univer s (ZYRTEC) 2-10 Oral, ity of tablet 5 mg 15:00: DAILY, [place] 00 First dose Medical on Thu Branch 09/12/22 at 0900, Until Discontinu ed, Routine cetirizine 2023-0 Yes 5mg 5 mg, Univer s (ZYRTEC) 2-10 Oral, ity of tablet 5 mg 15:00: DAILY, [place] 00 First dose Medical on Thu Branch 09/12/22 at 0900, Until Discontinu ed, Routine ketorolac 3-0 2023- No 30mg 30 mg, Unive rs (TORADOL) 09-12- Slow IV ity of injection 06:00: 05:59 [place], Q6H [place] 30 mg 00 :00 ABX, 4 Medical doses, Branch First dose on Thu09/12/22 at 0000, Last dose on Thu09/12/22 at 1800, Routine ketorolac 2023-0 2023- No 30mg 30 mg, Unive rs (TORADOL) 09-12- Slow IV ity of injection 06:00: 05:59 [place], Q6H [place] 30 mg 00 :00 ABX, 4 Medical doses, Branch First dose on Thu09/12/22 at 0000, Last dose on Thu09/12/22 at 1800, Routine acetaminoph 2023-0 Yes 650mg 650 mg, Un mohamud en 2-10 Oral, Q6H ity of (TYLENOL) 02:00: ABX, First [place] tablet 650 00 dose on Medica l mg [facility] 09/11/22 Branch at 2000, Until Discontinu ed, Routine acetaminoph 2023-0 Yes 650mg 650 mg, Un mohamud en 2-10 Oral, Q6H ity of (TYLENOL) 02:00: ABX, First [place] tablet 650 00 dose on Medica l mg [place] 09/11/22 Branch at 1999, Until Discontinu ed, Routine acetaminoph 0 Yes [id number] 650mg Take 2 Univers en 325 mg 2-10 103 tablets by ity of tablet 00:00: mouth [place] 00 every 6 Medical (six) Branch hours as needed for Pain (scale 1-3) or Pain (scale 4-6). Yes [id number] 1{tbl} Take 1 Univers vitamin 2-10 103 tablet by ity of w/FA tablet 00:00: mouth in [place] 00 the Medical morning. Branch docusate 0 Yes [id number] 200mg Take 2 Univers 100 mg 2-10 103 capsules ity of capsule 00:00: by mouth [place] 00 once daily Medical as needed Branch for Constipati on. ferrous 0 Yes [id number] 325mg Take 1 Univers sulfate 325 2-10 103 tablet by ity of mg (65 mg 00:00: [place] iron) 00 the Medical tablet morning Branch and 1 tablet in the evening. ibuprofen 0 Yes [id number] 600mg Take 1 Univers 600 mg 2-10 103 tablet by ity of tablet 00:00: mouth [place] 00 every 6 Medical (six) Branch hours as needed (Pain). Take with food or milk. acetaminoph 0 Yes [id number] 650mg Take 2 Univers en 325 mg 2-10 103 tablets by ity of tablet 00:00: mouth [place] 00 every 6 Medical (six) Branch hours as needed for Pain (scale 1-3) or Pain (scale 4-6). 0 Yes [id number] 1{tbl} Take 1 Univers vitamin 2-10 103 tablet by ity of w/FA tablet 00:00: mouth in [place] 00 the Medical morning. Branch docusate 0 Yes [id number] 200mg Take 2 Univers 100 mg 2-10 103 capsules [facility] of capsule 00:00: by mouth [place] 00 once daily Medical as needed Branch for Constipati on. ferrous 2022-0 Yes [id number] 325mg Take 1 [facility] sulfate 325 2-10 103 tablet by [facility] mg (65 mg 00:00: [place] [facility] 00 the Medical tablet morning Branch and 1 tablet in the evening. ibuprofen 2022-0 Yes [id number] 600mg Take 1 [facility] 600 mg 2-10 103 tablet by [facility] of tablet 00:00: mouth [place] 00 every 6 Medical (six) Branch hours as needed (Pain). Take with food or milk. acetaminoph 0 Yes [id number] 650mg Take 2 [facility] en 325 mg 2-10 103 tablets by [facility] of tablet 00:00: mouth [place] 00 every 6 Medical (six) Branch hours as needed for Pain (scale 1-3) or Pain (scale 4-6). 0 Yes [id number] 1{tbl} Take 1 [facility] vitamin 2-10 103 tablet by [facility] of w/FA tablet 00:00: mouth in [place] 00 the Medical morning. Branch docusate 0 Yes [id number] 200mg Take 2 [facility] 100 mg 2-10 103 capsules [facility] of capsule 00:00: by mouth [place] 00 once daily Medical as needed Branch for Constipati on. ferrous 0 Yes [id number] 325mg Take 1 [facility] sulfate 325 2-10 103 tablet by [facility] mg (65 mg 00:00: mouth [place] [facility] 00 the Medical tablet morning Branch and 1 tablet in the evening. ibuprofen 0 Yes [id number] 600mg Take 1 [facility] 600 mg 2-10 103 tablet by [facility] of tablet 00:00: mouth [place] 00 every 6 Medical (six) Branch hours as needed (Pain). Take with food or milk. acetaminoph 0 Yes [id number] 650mg Take 2 [facility] en 325 mg 2-10 103 tablets by [facility] of tablet 00:00: mouth [place] 00 every 6 Medical (six) Branch hours as needed for Pain (scale 1-3) or Pain (scale 4-6). 2022-0 Yes [id number] 1{tbl} Take 1 [facility] vitamin 2-10 103 tablet by [facility] of w/FA tablet 00:00: mouth in [place] 00 the Medical morning. Branch docusate 2022-0 Yes [id number] 200mg Take 2 [facility] 100 mg 2-10 103 capsules it[facility] of capsule 00:00: by mouth [place] 00 once daily Medical as needed Branch for Constipati on. ferrous 2022-0 Yes [id number] 325mg Take 1 [facility] sulfate 325 2-10 103 tablet by [facility] mg (65 mg 00:00: mouth [place] 00 the Medical tablet morning Branch and 1 tablet in the evening. ibuprofen 2022-0 Yes [id number] 600mg Take 1 [facility] 600 mg 2-10 103 tablet by [facility] of tablet 00:00: mouth [place] 00 every 6 Medical (six) Branch hours as needed (Pain). Take with food or milk. acetaminoph 2022-0 Yes [id number] 650mg Take 2 [facility] en 325 mg 2-10 103 tablets by [facility] of tablet 00:00: mouth [place] 00 every 6 Medical (six) Branch hours as needed for Pain (scale 1-3) or Pain (scale 4-6). 2022-0 Yes [id number] 1{tbl} Take 1 [facility] vitamin 2-10 103 tablet by [facility] of w/FA tablet 00:00: mouth in [place] 00 the Medical morning. Branch docusate 2022-0 Yes [id number] 200mg Take 2 [facility] 100 mg 2-10 103 capsules [facility] of capsule 00:00: by mouth [place] 00 once daily Medical as needed Branch for Constipati on. ferrous 2022-0 Yes [id number] 325mg Take 1 [facility] sulfate 325 2-10 103 tablet by [facility] mg (65 mg 00:00: mouth [place] 00 the Medical tablet morning Branch and 1 tablet in the evening. ibuprofen 2022-0 Yes [id number] 600mg Take 1 [facility] 600 mg 2-10 103 tablet by [facility] of tablet 00:00: mouth [place] 00 every 6 Medical (six) Branch hours as needed (Pain). Take with food or milk. acetaminoph 2022-0 Yes [id number] 650mg Take 2 [facility] en 325 mg 2-10 103 tablets by [facility] of tablet 00:00: mouth [place] 00 every 6 Medical (six) Branch hours as needed for Pain (scale 1-3) or Pain (scale 4-6). 2022-0 Yes [id number] 1{tbl} Take 1 [facility] vitamin 2-10 103 tablet by [facility] of w/FA tablet 00:00: mouth in [place] 00 the Medical morning. Branch docusate 2022-0 Yes [id number] 200mg Take 2 [facility] 100 mg 2-10 103 capsules it[facility] of capsule 00:00: by mouth [place] 00 once daily Medical as needed Branch for Constipati on. ferrous 2022-0 Yes [id number] 325mg Take 1 [facility] sulfate 325 2-10 103 tablet by [facility] mg (65 mg 00:00: mouth [place] 00 the Medical tablet morning Branch and 1 tablet in the evening. ibuprofen 2022-0 Yes [id number] 600mg Take 1 [facility] 600 mg 2-10 103 tablet by [facility] of tablet 00:00: mouth [place] 00 every 6 Medical (six) Branch hours as needed (Pain). Take with food or milk. acetaminoph 2022-0 Yes [id number] 650mg Take 2 [facility] en 325 mg 2-10 103 tablets by [facility] of tablet 00:00: mouth [place] 00 every 6 Medical (six) Branch hours as needed for Pain (scale 1-3) or Pain (scale 4-6). 2022-0 Yes [id number] 1{tbl} Take 1 [facility] vitamin 2-10 103 tablet by [facility] of w/FA tablet 00:00: mouth in [place] 00 the Medical morning. Branch docusate 2022-0 Yes [id number] 200mg Take 2 [facility] 100 mg 2-10 103 capsules it[facility] of capsule 00:00: by mouth [place] 00 once daily Medical as needed Branch for Constipati on. ferrous 2022-0 Yes [id number] 325mg Take 1 [facility] sulfate 325 2-10 103 tablet by [facility] mg (65 mg 00:00: mouth [place] 00 the Medical tablet morning Branch and 1 tablet in the evening. ibuprofen 2022-0 Yes [id number] 600mg Take 1 [facility] 600 mg 2-10 103 tablet by [facility] of tablet 00:00: mouth [place] 00 every 6 Medical (six) Branch hours as needed (Pain). Take with food or milk. acetaminoph 2022-0 Yes [id number] 650mg Take 2 [facility] en 325 mg 2-10 103 tablets by [facility] of tablet 00:00: mouth [place] 00 every 6 Medical (six) Branch hours as needed for Pain (scale 1-3) or Pain (scale 4-6). 2022-0 Yes [id number] 1{tbl} Take 1 [facility] vitamin 2-10 103 tablet by [facility] of w/FA tablet 00:00: mouth in [place] 00 the Medical morning. Branch docusate 2022-0 Yes [id number] 200mg Take 2 [facility] 100 mg 2-10 103 capsules ity of capsule 00:00: by mouth [place] 00 once daily Medical as needed Branch for Constipati on. ferrous 2022-0 Yes [id number] 325mg Take 1 [facility] sulfate 325 2-10 103 tablet by [facility] mg (65 mg 00:00: mouth [place] 00 the Medical tablet morning Branch and 1 tablet in the evening. ibuprofen 2022-0 Yes [id number] 600mg Take 1 [facility] 600 mg 2-10 103 tablet by [facility] of tablet 00:00: mouth [place] 00 every 6 Medical (six) Branch hours as needed (Pain). Take with food or milk. acetaminoph 2022-0 Yes [id number] 650mg Take 2 [facility] en 325 mg 2-10 103 tablets by [facility] of tablet 00:00: mouth [place] 00 every 6 Medical (six) Branch hours as needed for Pain (scale 1-3) or Pain (scale 4-6). 2022-0 Yes [id number] 1{tbl} Take 1 [facility] vitamin 2-10 103 tablet by [facility] of w/FA tablet 00:00: mouth in [place] 00 the Medical morning. Branch docusate 2022-0 Yes [id number] 200mg Take 2 [facility] 100 mg 2-10 103 capsules ity of capsule 00:00: by mouth [place] 00 once daily Medical as needed Branch for Constipati on. ferrous 2022-0 Yes [id number] 325mg Take 1 [facility] sulfate 325 2-10 103 tablet by [facility] mg (65 mg 00:00: mouth [place] 00 the Medical tablet morning Branch and 1 tablet in the evening. ibuprofen 2022-0 Yes [id number] 600mg Take 1 [facility] 600 mg 2-10 103 tablet by [facility] of tablet 00:00: mouth [place] 00 every 6 Medical (six) Branch hours as needed (Pain). Take with food or milk. acetaminoph 2022-0 Yes [id number] 650mg Take 2 [facility] en 325 mg 2-10 103 tablets by [facility] of tablet 00:00: mouth [place] 00 every 6 Medical (six) Branch hours as needed for Pain (scale 1-3) or Pain (scale 4-6). 2022-0 Yes [id number] 1{tbl} Take 1 [facility] vitamin 2-10 103 tablet by [facility] of w/FA tablet 00:00: mouth in [place] 00 the Medical morning. Branch docusate 2022-0 Yes [id number] 200mg Take 2 [facility] 100 mg 2-10 103 capsules it[facility] of capsule 00:00: by mouth [place] 00 once daily Medical as needed Branch for Constipati on. ferrous 2022-0 Yes [id number] 325mg Take 1 [facility] sulfate 325 2-10 103 tablet by it[facility] of mg (65 mg 00:00: mouth in [facility] s iron) 00 the Medical tablet morning Branch and 1 tablet in the evening. ibuprofen 2022-0 Yes [id number] 600mg Take 1 [facility] 600 mg 2-10 103 tablet by it[facility] of tablet 00:00: mouth [place] 00 every 6 Medical (six) Branch hours as needed (Pain). Take with food or milk. acetaminoph 2022-0 Yes [id number] 650mg Take 2 [facility] en 325 mg 2-10 103 tablets by it[facility] of tablet 00:00: mouth [place] 00 every 6 Medical (six) Branch hours as needed for Pain (scale 1-3) or Pain (scale 4-6). ferrous 2022-0 Yes [id number] 325mg Take 1 [facility] sulfate 325 2-10 103 tablet by ity of mg (65 mg 00:00: mouth in [facility] s iron) 00 the Medical tablet morning Branch and 1 tablet in the evening. ibuprofen 2022-0 Yes [id number] 600mg Take 1 [facility] 600 mg 2-10 103 tablet by ity of tablet 00:00: mouth [place] 00 every 6 Medical (six) Branch hours as needed (Pain). Take with food or milk. acetaminoph 2022-0 Yes [id number] 650mg Take 2 [facility] en 325 mg 2-10 103 tablets by ity of tablet 00:00: mouth [place] 00 every 6 Medical (six) Branch hours as needed for Pain (scale 1-3) or Pain (scale 4-6). ferrous 2022-0 Yes [id number] 325mg Take 1 [facility] sulfate 325 2-10 103 tablet by [facility] of mg (65 mg 00:00: [facility] tablet morning Branch and 1 tablet in the evening. ibuprofen 2023-0 Yes [id number] 600mg Take 1 [facility] 600 mg 2-10 103 tablet by ity of tablet 00:00: mouth [place] 00 every 6 Medical (six) Branch hours as needed (Pain). Take with food or milk. acetaminoph 2023-0 Yes [id number] 650mg Take 2 [facility] en 325 mg 2-10 103 tablets by ity of tablet 00:00: mouth [place] 00 every 6 Medical (six) Branch hours as needed for Pain (scale 1-3) or Pain (scale 4-6). ferrous 2023-0 Yes [id number] 325mg Take 1 [facility] sulfate 325 2-10 103 tablet by [facility] of mg (65 mg 00:00: [facility] the [facility] tablet morning Branch and 1 tablet in the evening. ibuprofen 3-0 Yes [id number] 600mg Take 1 [facility] 600 mg 2-10 103 tablet by ity of tablet 00:00: mouth [place] 00 every 6 Medical (six) Branch hours as needed (Pain). Take with food or milk. acetaminoph 3-0 Yes [id number] 650mg Take 2 [facility] en 325 mg 2-10 103 tablets by ity of tablet 00:00: mouth [place] 00 every 6 Medical (six) Branch hours as needed for Pain (scale 1-3) or Pain (scale 4-6). ferrous 2023-0 Yes [id number] 325mg Take 1 [facility] sulfate 325 2-10 103 tablet by [facility] of mg (65 mg 00:00: [facility] the Medical tablet morning Branch and 1 tablet in the evening. ibuprofen 2023-0 Yes [id number] 600mg Take 1 [facility] 600 mg 2-10 103 tablet by ity of tablet 00:00: mouth [place] 00 every 6 Medical (six) Branch hours as needed (Pain). Take with food or milk. acetaminoph 2023-0 Yes [id number] 650mg Take 2 [facility] en 325 mg 2-10 103 tablets by ity of tablet 00:00: mouth [place] 00 every 6 Medical (six) Branch hours as needed for Pain (scale 1-3) or Pain (scale 4-6). ferrous 2023-0 Yes [id number] 325mg Take 1 [facility] sulfate 325 2-10 103 tablet by [facility] of mg (65 mg 00:00: mouth [place] iron[place] 00 the Medical tablet morning Branch and 1 tablet in the evening. ibuprofen 3-0 Yes [id number] 600mg Take 1 [facility] 600 mg 2-10 103 tablet by ity of tablet 00:00: mouth [place] 00 every 6 Medical (six) Branch hours as needed (Pain). Take with food or milk. acetaminoph 2023-0 Yes [id number] 650mg Take 2 [facility] en 325 mg 2-10 103 tablets by ity of tablet 00:00: mouth [place] 00 every 6 Medical (six) Branch hours as needed for Pain (scale 1-3) or Pain (scale 4-6). ferrous 2023-0 Yes [id number] 325mg Take 1 [facility] sulfate 325 2-10 103 tablet by [facility] of mg (65 mg 00:00: mouth [place] iron[place] 00 the Medical tablet morning Branch and 1 tablet in the evening. ibuprofen 2022-0 Yes [id number] 600mg Take 1 [facility] 600 mg 2-10 103 tablet by ity of tablet 00:00: mouth [place] 00 every 6 Medical (six) Branch hours as needed (Pain). Take with food or milk. acetaminoph 3-0 Yes [id number] 650mg Take 2 [facility] en 325 mg 2-10 103 tablets by ity of tablet 00:00: mouth [place] 00 every 6 Medical (six) Branch hours as needed for Pain (scale 1-3) or Pain (scale 4-6). ferrous 2023-0 Yes [id number] 325mg Take 1 [facility] sulfate 325 2-10 103 tablet by ity of mg (65 mg 00:00: mouth [place] iron[place] 00 the Medical tablet morning Branch and 1 tablet in the evening. ibuprofen 3-0 Yes [id number] 600mg Take 1 [facility] 600 mg 2-10 103 tablet by ity of tablet 00:00: mouth [place] 00 every 6 Medical (six) Branch hours as needed (Pain). Take with food or milk. acetaminoph 2023-0 Yes [id number] 650mg Take 2 [facility] en 325 mg 2-10 103 tablets by ity of tablet 00:00: mouth [place] 00 every 6 Medical (six) Branch hours as needed for Pain (scale 1-3) or Pain (scale 4-6). ferrous 2023-0 Yes [id number] 325mg Take 1 [facility] sulfate 325 2-10 103 tablet by ity of mg (65 mg 00:00: mouth [place] iron[place] 00 the Medical tablet morning Branch and 1 tablet in the evening. ibuprofen 2023-0 Yes [id number] 600mg Take 1 [facility] 600 mg 2-10 103 tablet by ity of tablet 00:00: mouth [place] 00 every 6 Medical (six) Branch hours as needed (Pain). Take with food or milk. acetaminoph 2023-0 Yes [id number] 650mg Take 2 [facility] en 325 mg 2-10 103 tablets by ity of tablet 00:00: mouth [place] 00 every 6 Medical (six) Branch hours as needed for Pain (scale 1-3) or Pain (scale 4-6). ferrous 2023-0 Yes [id number] 325mg Take 1 [facility] sulfate 325 2-10 103 tablet by ity of mg (65 mg 00:00: mouth [place] iron[place] 00 the Medical tablet morning Branch and 1 tablet in the evening. ibuprofen 2023-0 Yes [id number] 600mg Take 1 [facility] 600 mg 2-10 103 tablet by ity of tablet 00:00: mouth [place] 00 every 6 Medical (six) Branch hours as needed (Pain). Take with food or milk. acetaminoph 2023-0 Yes [id number] 650mg Take 2 [facility] en 325 mg 2-10 103 tablets by ity of tablet 00:00: mouth [place] 00 every 6 Medical (six) Branch hours as needed for Pain (scale 1-3) or Pain (scale 4-6). ferrous 2023-0 Yes [id number] 325mg Take 1 [facility] sulfate 325 2-10 103 tablet by ity of mg (65 mg 00:00: mouth [place] iron[place] 00 the Medical tablet morning Branch and 1 tablet in the evening. ibuprofen 2023-0 Yes [id number] 600mg Take 1 [facility] 600 mg 2-10 103 tablet by ity of tablet 00:00: mouth [place] 00 every 6 Medical (six) Branch hours as needed (Pain). Take with food or milk. acetaminoph 2023-0 Yes [id number] 650mg Take 2 [facility] en 325 mg 2-10 103 tablets by ity of tablet 00:00: mouth [place] 00 every 6 Medical (six) Branch hours as needed for Pain (scale 1-3) or Pain (scale 4-6). ferrous 2023-0 Yes [id number] 325mg Take 1 [facility] sulfate 325 2-10 103 tablet by ity of mg (65 mg 00:00: mouth [place] iron[place] 00 the Medical tablet morning Branch and 1 tablet in the evening. ibuprofen 2023-0 Yes [id number] 600mg Take 1 [facility] 600 mg 2-10 103 tablet by ity of tablet 00:00: mouth [place] 00 every 6 Medical (six) Branch hours as needed (Pain). Take with food or milk. acetaminoph 2023-0 Yes [id number] 650mg Take 2 [facility] en 325 mg 2-10 103 tablets by ity of tablet 00:00: mouth [place] 00 every 6 Medical (six) Branch hours as needed for Pain (scale 1-3) or Pain (scale 4-6). ferrous 3-0 Yes [id number] 325mg Take 1 [facility] sulfate 325 2-10 103 tablet by ity of mg (65 mg 00:00: mouth [place] iron[place] 00 the Medical tablet morning Branch and 1 tablet in the evening. ibuprofen 3-0 Yes [id number] 600mg Take 1 [facility] 600 mg 2-10 103 tablet by ity of tablet 00:00: mouth [place] 00 every 6 Medical (six) Branch hours as needed (Pain). Take with food or milk. acetaminoph 3-0 Yes [id number] 650mg Take 2 [facility] en 325 mg 2-10 103 tablets by ity of tablet 00:00: mouth [place] 00 every 6 Medical (six) Branch hours as needed for Pain (scale 1-3) or Pain (scale 4-6). ferrous 2023-0 Yes [id number] 325mg Take 1 [facility] sulfate 325 2-10 103 tablet by ity of mg (65 mg 00:00: mouth [place] iron[place] 00 the Medical tablet morning Branch and 1 tablet in the evening. ibuprofen 2023-0 Yes [id number] 600mg Take 1 [facility] 600 mg 2-10 103 tablet by ity of tablet 00:00: mouth [place] 00 every 6 Medical (six) Branch hours as needed (Pain). Take with food or milk. acetaminoph 2023-0 Yes [id number] 650mg Take 2 [facility] en 325 mg 2-10 103 tablets by ity of tablet 00:00: mouth [place] 00 every 6 Medical (six) Branch hours as needed for Pain (scale 1-3) or Pain (scale 4-6). ferrous 2023-0 Yes [id number] 325mg Take 1 [facility] sulfate 325 2-10 103 tablet by ity of mg (65 mg 00:00: mouth [place] iron[place] 00 the Medical tablet morning Branch and 1 tablet in the evening. ibuprofen 2023-0 Yes [id number] 600mg Take 1 [facility] 600 mg 2-10 103 tablet by ity of tablet 00:00: mouth [place] 00 every 6 Medical (six) Branch hours as needed (Pain). Take with food or milk. acetaminoph 2023-0 Yes [id number] 650mg Take 2 [facility] en 325 mg 2-10 103 tablets by ity of tablet 00:00: mouth [place] 00 every 6 Medical (six) Branch hours as needed for Pain (scale 1-3) or Pain (scale 4-6). ferrous 2023-0 Yes [id number] 325mg Take 1 [facility] sulfate 325 2-10 103 tablet by ity of mg (65 mg 00:00: mouth [place] iron[place] 00 the Medical tablet morning Branch and 1 tablet in the evening. ibuprofen 2023-0 Yes [id number] 600mg Take 1 [facility] 600 mg 2-10 103 tablet by ity of tablet 00:00: mouth [place] 00 every 6 Medical (six) Branch hours as needed (Pain). Take with food or milk. acetaminoph 2023-0 Yes [id number] 650mg Take 2 [facility] en 325 mg 2-10 103 tablets by ity of tablet 00:00: mouth [place] 00 every 6 Medical (six) Branch hours as needed for Pain (scale 1-3) or Pain (scale 4-6). ferrous 2023-0 Yes [id number] 325mg Take 1 [facility] sulfate 325 2-10 103 tablet by ity of mg (65 mg 00:00: mouth [place] iron[place] 00 the Medical tablet morning Branch and 1 tablet in the evening. ibuprofen 2023-0 Yes [id number] 600mg Take 1 [facility] 600 mg 2-10 103 tablet by ity of tablet 00:00: mouth [place] 00 every 6 Medical (six) Branch hours as needed (Pain). Take with food or milk. acetaminoph 2023-0 Yes [id number] 650mg Take 2 [facility] en 325 mg 2-10 103 tablets by ity of tablet 00:00: mouth [place] 00 every 6 Medical (six) Branch hours as needed for Pain (scale 1-3) or Pain (scale 4-6). ferrous 2023-0 Yes [id number] 325mg Take 1 [facility] sulfate 325 2-10 103 tablet by ity of mg (65 mg 00:00: mouth [place] iron[place] 00 the Medical tablet morning Branch and 1 tablet in the evening. ibuprofen 2023-0 Yes [id number] 600mg Take 1 [facility] 600 mg 2-10 103 tablet by ity of tablet 00:00: mouth [place] 00 every 6 Medical (six) Branch hours as needed (Pain). Take with food or milk. acetaminoph 2023-0 Yes [id number] 650mg Take 2 [facility] en 325 mg 2-10 103 tablets by ity of tablet 00:00: mouth [place] 00 every 6 Medical (six) Branch hours as needed for Pain (scale 1-3) or Pain (scale 4-6). ferrous 2023-0 Yes [id number] 325mg Take 1 [facility] sulfate 325 2-10 103 tablet by [facility]y of mg (65 mg 00:00: mouth [place] iron[place] 00 the Medical tablet morning Branch and 1 tablet in the evening. ibuprofen 2023-0 Yes [id number] 600mg Take 1 [facility] 600 mg 2-10 103 tablet by ity of tablet 00:00: mouth [place] 00 every 6 Medical (six) Branch hours as needed (Pain). Take with food or milk. acetaminoph 2023-0 Yes [id number] 650mg Take 2 [facility] en 325 mg 2-10 103 tablets by ity of tablet 00:00: mouth [place] 00 every 6 Medical (six) Branch hours as needed for Pain (scale 1-3) or Pain (scale 4-6). ferrous 2023-0 Yes [id number] 325mg Take 1 [facility] sulfate 325 2-10 103 tablet by [facility]y of mg (65 mg 00:00: mouth [place] iron[place] 00 the Medical tablet morning Branch and 1 tablet in the evening. ibuprofen 2023-0 Yes [id number] 600mg Take 1 [facility] 600 mg 2-10 103 tablet by ity of tablet 00:00: mouth [place] 00 every 6 Medical (six) Branch hours as needed (Pain). Take with food or milk. acetaminoph 2023-0 Yes [id number] 650mg Take 2 [facility] en 325 mg 2-10 103 tablets by ity of tablet 00:00: mouth [place] 00 every 6 Medical (six) Branch hours as needed for Pain (scale 1-3) or Pain (scale 4-6). ferrous 2023-0 Yes [id number] 325mg Take 1 [facility] sulfate 325 2-10 103 tablet by ity of mg (65 mg 00:00: mouth [place] iron[place] 00 the Medical tablet morning Branch and 1 tablet in the evening. ibuprofen 2023-0 Yes [id number] 600mg Take 1 [facility] 600 mg 2-10 103 tablet by ity of tablet 00:00: mouth [place] 00 every 6 Medical (six) Branch hours as needed (Pain). Take with food or milk. acetaminoph 3-0 Yes [id number] 650mg Take 2 [facility] en 325 mg 2-10 103 tablets by ity of tablet 00:00: mouth [place] 00 every 6 Medical (six) Branch hours as needed for Pain (scale 1-3) or Pain (scale 4-6). ferrous 3-0 Yes [id number] 325mg Take 1 [facility] sulfate 325 2-10 103 tablet by ity of mg (65 mg 00:00: mouth [place] iron[place] 00 the Medical tablet morning Branch and 1 tablet in the evening. ibuprofen 2023-0 Yes [id number] 600mg Take 1 [facility] 600 mg 2-10 103 tablet by ity of tablet 00:00: mouth [place] 00 every 6 Medical (six) Branch hours as needed (Pain). Take with food or milk. acetaminoph 2023-0 Yes [id number] 650mg Take 2 [facility] en 325 mg 2-10 103 tablets by ity of tablet 00:00: mouth [place] 00 every 6 Medical (six) Branch hours as needed for Pain (scale 1-3) or Pain (scale 4-6). ferrous 2023-0 Yes [id number] 325mg Take 1 [facility] sulfate 325 2-10 103 tablet by ity of mg (65 mg 00:00: mouth [place] iron[place] 00 the Medical tablet morning Branch and 1 tablet in the evening. ibuprofen 2023-0 Yes [id number] 600mg Take 1 [facility] 600 mg 2-10 103 tablet by ity of tablet 00:00: mouth [place] 00 every 6 Medical (six) Branch hours as needed (Pain). Take with food or milk. acetaminoph 2022-0 Yes [id number] 650mg Take 2 [facility] en 325 mg 2-10 103 tablets by ity of tablet 00:00: mouth [place] 00 every 6 Medical (six) Branch hours as needed for Pain (scale 1-3) or Pain (scale 4-6). ferrous 2022-0 Yes [id number] 325mg Take 1 [facility] sulfate 325 2-10 103 tablet by ity of mg (65 mg 00:00: mouth [place] iron[place] 00 the Medical tablet morning Branch and 1 tablet in the evening. ibuprofen 2022-0 Yes [id number] 600mg Take 1 [facility] 600 mg 2-10 103 tablet by ity of tablet 00:00: mouth [place] 00 every 6 Medical (six) Branch hours as needed (Pain). Take with food or milk. acetaminoph 2022-0 Yes [id number] 650mg Take 2 [facility] en 325 mg 2-10 103 tablets by ity of tablet 00:00: mouth [place] 00 every 6 Medical (six) Branch hours as needed for Pain (scale 1-3) or Pain (scale 4-6). ferrous 2022-0 Yes [id number] 325mg Take 1 [facility] sulfate 325 2-10 103 tablet by [facility]y of mg (65 mg 00:00: mouth [place] iron[place] 00 the Medical tablet morning Branch and 1 tablet in the evening. ibuprofen 2022-0 Yes [id number] 600mg Take 1 [facility] 600 mg 2-10 103 tablet by ity of tablet 00:00: mouth [place] 00 every 6 Medical (six) Branch hours as needed (Pain). Take with food or milk. 2022- No [id number] 1{tbl} Take 1 [facility] vitamin 2-10 03-10 103 tablet by ity of w/FA tablet 00:00: 00:00 mouth in [place] 00 :00 the Medical morning. Branch docusate 2022- No [id number] 200mg Take 2 [facility] 100 mg 2-10 03-10 103 capsules ity of capsule 00:00: 00:00 by mouth [place] 00 :00 once daily Medical as needed Branch for Constipati on. 2022-2022- No [id number] 1{tbl} Take 1 [facility] vitamin 2-10 03-10 103 tablet by ity of w/FA tablet 00:00: 00:00 mouth in [place] 00 :00 the Medical morning. Branch docusate 2022- No [id number] 200mg Take 2 [facility] 100 mg 09-12 103 capsules ity of capsule 00:00: 00:00 by mouth [place] 00 :00 once daily Medical as needed Branch for Constipati on. traMADoL 50 2022-2022- No [id number] 50mg Take 1 [facility] vers mg tablet 09-12-18 tablet by ity of 00:00: 05:59 mouth [place] 00 :00 every 6 Medical (six) Branch hours as needed for Pain (scale 7-10) for up to 7 days. Indication s: acute pain traMADoL 50 2022-2022- No [id number] 50mg Take 1 [facility] vers mg tablet 09-12- tablet by ity of 00:00: 05:59 mouth [place] 00 :00 every 6 Medical (six) Branch hours as needed for Pain (scale 7-10) for up to 7 days. Indication s: acute pain traMADoL 50 2022- No [id number] 50mg Take 1 [facility] vers mg tablet 09-12- tablet by ity of 00:00: 05:59 mouth [place] 00 :00 every 6 Medical (six) Branch hours as needed for Pain (scale 7-10) for up to 7 days. Indication s: acute pain traMADoL 50 2022-2022- No [id number] 50mg Take 1 [facility] vers mg tablet 09-12-18 tablet by ity of 00:00: 05:59 mouth [place] 00 :00 every 6 Medical (six) Branch hours as needed for Pain (scale 7-10) for up to 7 days. Indication s: acute pain gabapentin 2022-2022- No [id number] 300mg Take 1 [facility] 300 mg 09-12 103 capsule by ity of capsule 00:00: 05:59 mouth in [place] 00 :00 the Medical morning Branch and 1 capsule at noon and 1 capsule in the evening. Do all this for 5 days. gabapentin 2022-2022- No [id number] 300mg Take 1 [facility] 300 mg 09-12 103 capsule by ity of capsule 00:00: 05:59 mouth in [place] 00 :00 the Medical morning Branch and 1 capsule at noon and 1 capsule in the evening. Do all this for 5 days. gabapentin 2022-0 2022- No [id number] 300mg Take 1 [facility] 300 mg 09-12 103 capsule by ity of capsule 00:00: 05:59 mouth in [place] 00 :00 the [facility] and 1 capsule at noon and 1 capsule in the evening. Do all this for 5 days. gabapentin 2022-0 Yes 300mg 300 mg, Uni vers (NEURONTIN) 2-09 Oral, TID, it y of capsule 300 20:00: First dose [place] mg 00 on [facility] 09/11/22 at Branch 1400, Until Discontinu ed, Routine gabapentin 2022-0 Yes 300mg 300 mg, Uni vers (NEURONTIN) 09-11 Oral, TID, it y of capsule 300 20:00: First dose [place] mg 00 on [facility] 09/11/22 at Branch 1400, Until Discontinu ed, Routine ondansetron 2022- No 4mg 4 mg, Slow Univers (ZOFRAN 09-11 IV Push, ity of (PF)) 16:15: 16:22 ONCE, 1 [place] injection 4 00 :00 dose, On Medi rosa isela mg [facility] 09/11/22 Branch at 1015, Routine nalbuphine 2022-0 Yes 5mg 5 mg, Univer s (NUBAIN) - Intravenou ity o f injection 5 15:58: s, PRN, 1 [place] mg 16 dose, Medical Starting Branch on [facility] 09/11/22 at 0958, Until Discontinu ed, Routine, itching nalbuphine 2022-0 Yes 5mg 5 mg, Univer s (NUBAIN) 09-11 Intravenou ity o f injection 5 15:58: s, PRN, 1 [place] mg 16 dose, Medical Starting Branch on [facility] 09/11/22 at 0958, Until Discontinu ed, Routine, itching naloxone 2022-0 2022- No .4mg 0.4 mg, Unive rs (NARCAN) 09-1112 Slow IV ity of injection 15:58: 00:14 Push, PRN [place] 0.4 mg 16 :19 - SEE Medical INSTRUCTIO Branch NS, Starting on [facility] 09/11/22 at 0958, Until 09/13/22 at 1814, Routine, Analgesia Recovery naloxone 2022- No .4mg 0.4 mg, Unive rs (NARCAN) 09-1112 Slow IV ity of injection 15:58: 00:14 [place] PRN [place] 0.4 mg 16 :19 - SEE Medical INSTRUCTIO Branch NS, Starting on [place] 09/11/22 at 0958, Until 09/13/22 at 1814, Routine, Analgesia Recovery mupirocin 0 Yes Intra-op Univ ers (BACTROBAN 09-11 ity of OINT) 2 % 15:23: [place] skin 00 Medical ointment Branch mupirocin Yes Intra-op Univ ers (BACTROBAN 09-11 ity of OINT) 2 % 15:23: [place] skin 00 Medical ointment Branch lactated 2022- No 1000mL at 125 Univ ers ringers IV 09-11 mL/hr, ity of infusion 15:15: 21:15 1,000 [...] [place] 09/11/22 at 0945, Routine, Intra-op sodium Yes PRN, Univers chloride 09-11 Starting ity of 0.9 % 14:56: on [place] irrigation 00 09/11/22 at Medi rosa isela solution 0856, Branch Until Discontinu ed, Intra-op sodium Yes PRN, Univers chloride - Starting ity of 0.9 % 14:56: on [...] 14:09 INTRA [place] injection 00 :36 PROCEDURE, [facility] Starting Branch on [place] 09/11/22 at 0836, Until 09/29/22 at 0809, Routine, Intra-op FENTanyl PF 2022- No Intratheca Univers (SUBLIMAZE 09-11 l, ONCE ity o f (PF)) 14:36: 14:09 INTRA [place] injection 00 :01 PROCEDURE, [facility] Starting Branch on [facility] 09/11/22 at 0836, Until 09/29/22 at 0809, Routine, Intra-op ziprasidone Yes 20mg 20 mg, Univ ers (GEODON) 2-09 Oral, BID, ity o f capsule 20 14:30: First dose [place] mg 00 on [facility] 09/11/22 at Branch 0830, Until Discontinu ed ziprasidone Yes 20mg 20 mg, Univ ers (GEODON) 2-09 Oral, BID, ity o f capsule 20 14:30: First dose [place] mg 00 on [facility] 09/11/22 at Branch 0830, Until Discontinu ed rho(D) Yes 300ug 300 mcg, Univer s immune 2- Intramuscu ity of globulin 14:21: lar, ONCE, [place] (RHOGAM) 17 For 1 Medical syringe 300 dose, Branch mcg Conditiona l, Routine rho(D) Yes 300ug 300 mcg, Univer s immune 2-09 Intramuscu ity of globulin 14:21: lar, ONCE, [place] (RHOGAM) 17 For 1 Medical syringe 300 dose, Branch mcg Conditiona l, Routine diphenhydrA Yes 25mg 25 mg, Univ ers MINE 2-09 Slow IV ity of (BENADRYL) 14:21: Push, [place] injection 11 Q6HPRN, Medical 25 mg Starting Branch on [facility] 09/11/22 at 0821, Until Discontinu ed, Routine, Itching diphenhydrA 2023-0 Yes 25mg 25 mg, Univ ers MINE 2-09 Oral, ity of (BENADRYL) 14:21: Q6HPRN, [place] tablet 25 11 Starting Medica l mg on [facility] Branch 09/11/22 at 0821, Until Discontinu ed, Routine, Sleep, Itching ondansetron 2023-0 Yes 4mg 4 mg, Slow Univers (ZOFRAN 2-09 IV Push, ity of (PF)) 14:21: Q8HPRN, [place] injection 4 11 Starting Medi rosa isela mg on [facility] Branch 09/11/22 at 0821, Until Discontinu ed, Routine, Nausea and Vomiting (N/V) bisacodyL 2023-0 Yes 10mg 10 mg, Univer s (DULCOLAX) 2-09 Rectal, ity of suppository 14:21: QDAILYPRN, [place] 10 mg 11 Starting Medical on [facility] Branch 09/11/22 at 0821, Until Discontinu ed, Routine, Constipati on simethicone 2023-0 Yes 160mg 160 mg, Un mohamud (GAS RELIEF 2-09 Oral, ity of (SIMETHICON 14:21: PC+HSPRN, [place] E)) 11 Starting Medical chewable on [facility] Branch tablet 160 09/11/22 at mg 0821, Until Discontinu ed, Routine, Gas diphenhydrA 2023-0 Yes 25mg 25 mg, Univ ers MINE 2-09 Slow IV ity of (BENADRYL) 14:21: Push, [place] injection 11 Q6HPRN, Medical 25 mg Starting Branch on [facility] 09/11/22 at 0821, Until Discontinu ed, Routine, Itching diphenhydrA 2023-0 Yes 25mg 25 mg, Univ ers MINE 2-09 Oral, ity of (BENADRYL) 14:21: Q6HPRN, [place] tablet 25 11 Starting Medica l mg on [facility] Branch 09/11/22 at 0821, Until Discontinu ed, [...] Until Discontinu ed, Routine, Constipati on magnesium 3-0 Yes 30mL 30 mL, Univer s hydroxide [...] Prophylaxi s
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
Duration of therapy: within 24 hours of surgery famotidine Yes 20mg 20 mg, Unive rs (PEPCID 09-04 Slow IV ity of (PF)) 14:00: Push, [place] injection 00 Q12H, Medical 20 mg First dose Branch on [place] 09/04/22 at 0800, Until Discontinu ed, Routine acetaminoph No 1000mg 1,000 mg, Univers en 09-04 Oral, ity of (TYLENOL) 08:30: 07:44 ONCE, 1 [place] tablet 00 :00 dose, On Medical 1,000 mg [place] 09/04/22 Branc h at 0230, Routine diphenhydrA No 25mg 25 mg, Uni vers MINE [...] [place] 09/04/22 at 0100, Routine FENTanyl PF No 50ug 50 mcg, Un mohamud (SUBLIMAZE 09-04 Slow IV ity o f (PF)) 06:14: 05:59 Push, ONCE [place] injection 37 :00 PRN, 1 Medical 50 mcg dose, Branch Starting on [place] 09/04/22 at 0014, Until [place] 09/04/22 at 2359, Routine, Pain (scale 7-10) alum-mag 0 Yes 30mL 30 mL, Univers hydroxide-s 2-02 Oral, ity of imeth 06:13: Q6HPRN, [place] (MAALOX 18 Starting Medical PLUS / on [place] Branch MAG-AL 09/04/22 at PLUS) 0013, 200-200-20 Until mg/5 mL Discontinu suspension ed, 30 mL Routine, Indigestio n ferrous 2022-0 2022- No Take by Univer s sulfate 08-29-27 mouth. ity of (IRON ORAL) 11:17: 00:00 [place] 46 :00 [facility] ferrous 2022-0 Yes Take by Univers sulfate 1-12 mouth. ity of (IRON ORAL) 09:59: [address] ferrous 2022-0 Yes Take by Univers sulfate 1-12 mouth. ity of (IRON ORAL) 09:59: [address] ferrous 2022-0 Yes Take by Univers sulfate 1-12 mouth. ity of (IRON ORAL) 09:59: [address] ferrous 2022-0 Yes Take by Univers sulfate 1-12 mouth. ity of (IRON ORAL) 09:59: [address] ferrous 2022-0 Yes Take by Univers sulfate 1-12 mouth. ity of (IRON ORAL) 09:59: [address] ferrous 2022-0 Yes Take by Univers sulfate 1-12 mouth. ity of (IRON ORAL) 09:59: [address] ferrous 2022-0 Yes Take by Univers sulfate 1-12 mouth. ity of (IRON ORAL) 09:59: [address] ferrous 2022-0 Yes Take by Univers sulfate 1-12 mouth. ity of (IRON ORAL) 09:59: [address] ferrous 2022-0 Yes Take by Univers sulfate 1-12 mouth. ity of (IRON ORAL) 09:59: [address] butorphanol 2022-0 2022- No 1mg 1 mg, Univ ers (STADOL) 1-10 01-10 Intravenou ity of injection 1 05:00: 04:25 s, ONCE, 1 [place] mg 00 :00 dose, On Medical 08/11/22 Branch at 2300, Routine diphenhydrA 2022- No 25mg 25 mg, Uni vers MINE 1-10 01-10 Oral, ity of (BENADRYL) 02:45: 02:07 ONCE, 1 [place] tablet 25 00 :00 dose, On Medica l mg 08/11/22 Branch at 2045, Routine metoclopram 2022- No 10mg 10 mg, Uni vers richa HCl - 01-10 Oral, ity of (REGLAN) 02:45: 02:07 ONCE, 1 [place] tablet 10 00 :00 dose, On Medica l mg 08/11/22 Branch at 2045, Routine acetaminoph Yes 1000mg 1,000 mg, Univers en -10 Oral, ity of (TYLENOL) 02:44: Q8HPRN, [place] tablet 03 Starting Medical 1,000 mg on Mon Branch 08/11/22 at 2044, Until Discontinu ed, Routine, pain ferrous Yes Take by Univers sulfate 1-10 mouth. ity of (IRON ORAL) 00:32: [address] ferrous Yes Take by Univers sulfate 1-10 mouth. ity of (IRON ORAL) 00:32: [address] ondansetron 2021-08 No 4mg 4 mg, [...] 1000mL at 999 Uni vers (NS) IV 2-29 12-29 mL/hr, IV ity of infusion 01:15: 00:50 Infusion, [place] 1,000 mL 00 :29 ONCE, 1 Medical dose, On Branch 07/30/22 at 1915, Routine ferrous 2021-08 Yes Take by Univers sulfate 2-28 mouth. ity of (IRON ORAL) 21:21: [address] ferrous 2021-08 Yes Take by Univers sulfate 2-28 mouth. ity of (IRON ORAL) 21:21: [address] ferrous 2021-08 Yes Take by Univers sulfate 2-28 mouth. ity of (IRON ORAL) 21:21: [address] ferrous 2021-08 Yes Take by Univers sulfate 2-28 mouth. ity of (IRON ORAL) 21:21: [address] ondansetron 2021-08 4mg 4 mg, Univ ers (ZOFRAN-ODT 2-28 - Oral, ity of ) 08:45: 07:48 ONCE, 1 [place] disintegrat 00 :00 dose, On Medi rosa isela ing tablet Thu [place] 4 mg 07/30/22 at 0245, Routine ondansetron 2021-08 Yes [id number] 4mg Take 1 Univers 4 mg 2-28 tablet by ity of disintegrat 00:00: mouth [place] ing tablet 00 every 8 Medica l (eight) Branch hours as needed for Nausea and Vomiting (N/V). ondansetron 2021-08 Yes [id number] 4mg Take 1 Univers 4 mg 2-28 tablet by ity of disintegrat 00:00: mouth [place] ing tablet 00 every 8 Medica l (eight) Branch hours as needed for Nausea and Vomiting (N/V). ondansetron 2021-08 Yes [id number] 4mg Take 1 Univers 4 mg 2-28 tablet by ity of disintegrat 00:00: mouth [place] ing tablet 00 every 8 Medica l (eight) Branch hours as needed for Nausea and Vomiting (N/V). ondansetron 2021-08 Yes [id number] 4mg Take 1 Univers 4 mg 2-28 tablet by ity of disintegrat 00:00: mouth [place] ing tablet 00 every 8 Medica l (eight) Branch hours as needed for Nausea and Vomiting (N/V). ondansetron 2021-08 Yes [id number] 4mg Take 1 [facility] 4 mg 2-28 tablet by ity of disintegrat 00:00: mouth [place] ing tablet 00 every 8 Medica l (eight) Branch hours as needed for Nausea and Vomiting (N/V). ondansetron 2021-08 Yes [id number] 4mg Take 1 Univers 4 mg 2-28 tablet by ity of disintegrat 00:00: mouth [place] ing tablet 00 every 8 Medica l (eight) Branch hours as needed for Nausea and Vomiting (N/V). ondansetron 2021-08 Yes [id number] 4mg Take 1 [facility] 4 mg 2-28 tablet by ity of disintegrat 00:00: mouth [place] ing tablet 00 every 8 Medica l (eight) Branch hours as needed for Nausea and Vomiting (N/V). ondansetron 2021-08 Yes [id number] 4mg Take 1 [facility] 4 mg 2-28 tablet by ity of disintegrat 00:00: mouth [place] ing tablet 00 every 8 Medica l (eight) Branch hours as needed for Nausea and Vomiting (N/V). ondansetron 2021-08 Yes [id number] 4mg Take 1 [facility] 4 mg 2-28 tablet by ity of disintegrat 00:00: mouth [place] ing tablet 00 every 8 Medica l (eight) Branch hours as needed for Nausea and Vomiting (N/V). ondansetron 2021-08 Yes [id number] 4mg Take 1 Univers 4 mg 2-28 tablet by ity of disintegrat 00:00: mouth [place] ing tablet 00 every 8 Medica l (eight) Branch hours as needed for Nausea and Vomiting (N/V). ondansetron 2021-08 Yes [id number] 4mg Take 1 Univers 4 mg 2-28 tablet by ity of disintegrat 00:00: mouth [place] ing tablet 00 every 8 Medica l (eight) Branch hours as needed for Nausea and Vomiting (N/V). ondansetron 2021-08 Yes [id number] 4mg Take 1 [facility] 4 mg 2-28 tablet by ity of disintegrat 00:00: mouth [place] ing tablet 00 every 8 Medica l (eight) Branch hours as needed for Nausea and Vomiting (N/V). ondansetron 2021-08 Yes [id number] 4mg Take 1 [facility] 4 mg 2-28 tablet by ity of disintegrat 00:00: mouth [place] ing tablet 00 every 8 Medica l (eight) Branch hours as needed for Nausea and Vomiting (N/V). ondansetron 2021-08 Yes [id number] 4mg Take 1 [facility] 4 mg 2-28 tablet by ity of disintegrat 00:00: mouth [place] ing tablet 00 every 8 Medica l (eight) Branch hours as needed for Nausea and Vomiting (N/V). ondansetron 2021-08 Yes [id number] 4mg Take 1 Univers 4 mg 2-28 tablet by ity of disintegrat 00:00: mouth [place] ing tablet 00 every 8 Medica l (eight) Branch hours as needed for Nausea and Vomiting (N/V). ondansetron 2021-08 Yes [id number] 4mg Take 1 Univers 4 mg 2-28 tablet by ity of disintegrat 00:00: mouth [place] ing tablet 00 every 8 Medica l (eight) Branch hours as needed for Nausea and Vomiting (N/V). ondansetron 2021-08 Yes [id number] 4mg Take 1 Univers 4 mg 2-28 tablet by ity of disintegrat 00:00: mouth [place] ing tablet 00 every 8 Medica l (eight) Branch hours as needed for Nausea and Vomiting (N/V). ondansetron 2021-08 Yes [id number] 4mg Take 1 Univers 4 mg 2-28 tablet by ity of disintegrat 00:00: mouth [place] ing tablet 00 every 8 Medica l (eight) Branch hours as needed for Nausea and Vomiting (N/V). ondansetron 2021-08 Yes [id number] 4mg Take 1 Univers 4 mg 2-28 tablet by ity of disintegrat 00:00: mouth [place] ing tablet 00 every 8 Medica l (eight) Branch hours as needed for Nausea and Vomiting (N/V). ondansetron 2021-08 Yes [id number] 4mg Take 1 Univers 4 mg 2-28 tablet by ity of disintegrat 00:00: mouth [place] ing tablet 00 every 8 Medica l (eight) Branch hours as needed for Nausea and Vomiting (N/V). ondansetron 2021-08 Yes [id number] 4mg Take 1 Univers 4 mg 2-28 tablet by ity of disintegrat 00:00: mouth [place] ing tablet 00 every 8 Medica l (eight) Branch hours as needed for Nausea and Vomiting (N/V). ondansetron 2021-08 Yes [id number] 4mg Take 1 Univers 4 mg 2-28 tablet by ity of disintegrat 00:00: mouth [place] ing tablet 00 every 8 Medica l (eight) Branch hours as needed for Nausea and Vomiting (N/V). ondansetron 2021-08 Yes [id number] 4mg Take 1 Univers 4 mg 2-28 tablet by ity of disintegrat 00:00: mouth [place] ing tablet 00 every 8 Medica l (eight) Branch hours as needed for Nausea and Vomiting (N/V). ondansetron 2021-08 Yes [id number] 4mg Take 1 Univers 4 mg 2-28 tablet by ity of disintegrat 00:00: mouth [place] ing tablet 00 every 8 Medica l (eight) Branch hours as needed for Nausea and Vomiting (N/V). ondansetron 2021-08 Yes [id number] 4mg Take 1 Univers 4 mg 2-28 tablet by ity of disintegrat 00:00: mouth [place] ing tablet 00 every 8 Medica l (eight) Branch hours as needed for Nausea and Vomiting (N/V). ondansetron 2021-08 Yes [id number] 4mg Take 1 Univers 4 mg 2-28 tablet by ity of disintegrat 00:00: mouth [place] ing tablet 00 every 8 Medica l (eight) Branch hours as needed for Nausea and Vomiting (N/V). ondansetron 2021-08 Yes [id number] 4mg Take 1 Univers 4 mg 2-28 tablet by ity of disintegrat 00:00: mouth [place] ing tablet 00 every 8 Medica l (eight) Branch hours as needed for Nausea and Vomiting (N/V). ondansetron 2021-08 Yes [id number] 4mg Take 1 Univers 4 mg 2-28 tablet by ity of disintegrat 00:00: mouth [place] ing tablet 00 every 8 Medica l (eight) Branch hours as needed for Nausea and Vomiting (N/V). ondansetron 2021-08- No [id number] 4mg Take 1 Univers 4 mg 2-28 02-10 tablet by ity of disintegrat 00:00: 00:00 [place] tablet 00 :00 every 8 Medica l (eight) Branch hours as needed for Nausea and Vomiting (N/V). ferrous 2021-08 Yes Take by Univers sulfate 2-16 mouth. ity of (IRON ORAL) 08:50: [address] ferrous 2021-08 Yes Take by Univers sulfate 2-16 mouth. ity of (IRON ORAL) 08:50: [address] ferrous 2021-08 Yes Take by Univers sulfate 2-16 mouth. ity of (IRON ORAL) 08:50: [address] ferrous 2021- Yes Take by Univers sulfate 2-16 mouth. ity of (IRON ORAL) 08:50: [address] ferrous 2021-08 Yes Take by Univers sulfate 2-16 mouth. ity of (IRON ORAL) 08:50: [address] ferrous 2021-08 Yes Take by Univers sulfate 2-16 mouth. ity of (IRON ORAL) 08:50: [address] ferrous 2021-08 Yes Take by Univers sulfate 2-16 mouth. ity of (IRON ORAL) 08:50: [address] ferrous 2021-08 Yes Take by Univers sulfate 2-16 mouth. ity of (IRON ORAL) 08:50: [address] ferrous 2021-08 Yes Take by Univers sulfate 2-16 mouth. ity of (IRON ORAL) 08:50: [address] benzonatate 2021-08 Yes [id number] 100mg Take 1 Univers 100 mg 2-16 capsule by ity of capsule 00:00: mouth [place] 00 every 8 Medical (eight) Branch hours as needed for Cough. benzonatate 2021-08 Yes [id number] 100mg Take 1 Univers 100 mg 2-16 capsule by ity of capsule 00:00: mouth [place] 00 every 8 Medical (eight) Branch hours as needed for Cough. benzonatate 2021-08 Yes [id number] 100mg Take 1 [facility] 100 mg 2-16 capsule by ity of capsule 00:00: mouth [place] 00 every 8 Medical (eight) Branch hours as needed for Cough. benzonatate 2021-08 Yes [id number] 100mg Take 1 [facility] 100 mg 2-16 capsule by ity of capsule 00:00: mouth [place] 00 every 8 Medical (eight) Branch hours as needed for Cough. benzonatate 2021-08 Yes [id number] 100mg Take 1 [facility] 100 mg 2-16 capsule by ity of capsule 00:00: mouth [place] 00 every 8 Medical (eight) Branch hours as needed for Cough. benzonatate 2021-08 Yes [id number] 100mg Take 1 [facility] 100 mg 2-16 capsule by ity of capsule 00:00: mouth [place] 00 every 8 Medical (eight) Branch hours as needed for Cough. benzonatate 2021-08 Yes [id number] 100mg Take 1 [facility] 100 mg 2-16 capsule by ity of capsule 00:00: mouth [place] 00 every 8 Medical (eight) Branch hours as needed for Cough. benzonatate 2021-08 Yes [id number] 100mg Take 1 [facility] 100 mg 2-16 capsule by ity of capsule 00:00: mouth [place] 00 every 8 Medical (eight) Branch hours as needed for Cough. benzonatate 2021-08 Yes [id number] 100mg Take 1 [facility] 100 mg 2-16 capsule by ity of capsule 00:00: mouth [place] 00 every 8 Medical (eight) Branch hours as needed for Cough. benzonatate 2021-08 Yes [id number] 100mg Take 1 [facility] 100 mg 2-16 capsule by ity of capsule 00:00: mouth [place] 00 every 8 Medical (eight) Branch hours as needed for Cough. benzonatate 2021-08 Yes [id number] 100mg Take 1 [facility] 100 mg 2-16 capsule by ity of capsule 00:00: mouth [place] 00 every 8 Medical (eight) Branch hours as needed for Cough. benzonatate 2021-08 Yes [id number] 100mg Take 1 [facility] 100 mg 2-16 capsule by ity of capsule 00:00: mouth [place] 00 every 8 Medical (eight) Branch hours as needed for Cough. benzonatate 2021-08 Yes [id number] 100mg Take 1 [facility] 100 mg 2-16 capsule by ity of capsule 00:00: mouth [place] 00 every 8 Medical (eight) Branch hours as needed for Cough. benzonatate 2021-08 Yes [id number] 100mg Take 1 [facility] 100 mg 2-16 capsule by ity of capsule 00:00: mouth [place] 00 every 8 Medical (eight) Branch hours as needed for Cough. benzonatate 2021-08 Yes [id number] 100mg Take 1 [facility] 100 mg 2-16 capsule by ity of capsule 00:00: mouth [place] 00 every 8 Medical (eight) Branch hours as needed for Cough. benzonatate 2021-08 Yes [id number] 100mg Take 1 [facility] 100 mg 2-16 capsule by ity of capsule 00:00: mouth [place] 00 every 8 Medical (eight) Branch hours as needed for Cough. benzonatate 2021-08 Yes [id number] 100mg Take 1 [facility] 100 mg 2-16 capsule by ity of capsule 00:00: mouth [place] 00 every 8 Medical (eight) Branch hours as needed for Cough. benzonatate 2021-08 Yes [id number] 100mg Take 1 [facility] 100 mg 2-16 capsule by ity of capsule 00:00: mouth [place] 00 every 8 Medical (eight) Branch hours as needed for Cough. benzonatate 2021-08 Yes [id number] 100mg Take 1 Univers 100 mg 2-16 capsule by ity of capsule 00:00: mouth [place] 00 every 8 Medical (eight) Branch hours as needed for Cough. benzonatate 2021-08 Yes [id number] 100mg Take 1 Univers 100 mg 2-16 capsule by ity of capsule 00:00: mouth [place] 00 every 8 Medical (eight) Branch hours as needed for Cough. benzonatate 2021-08 Yes [id number] 100mg Take 1 [facility] 100 mg 2-16 capsule by ity of capsule 00:00: mouth [place] 00 every 8 Medical (eight) Branch hours as needed for Cough. benzonatate 2021-08 Yes [id number] 100mg Take 1 [facility] 100 mg 2-16 capsule by ity of capsule 00:00: mouth [place] 00 every 8 Medical (eight) Branch hours as needed for Cough. benzonatate 2021-08 Yes [id number] 100mg Take 1 [facility] 100 mg 2-16 capsule by ity of capsule 00:00: mouth [place] 00 every 8 Medical (eight) Branch hours as needed for Cough. benzonatate 2021-08 Yes [id number] 100mg Take 1 [facility] 100 mg 2-16 capsule by ity of capsule 00:00: mouth [place] 00 every 8 Medical (eight) Branch hours as needed for Cough. benzonatate 2021-08 Yes [id number] 100mg Take 1 [facility] 100 mg 2-16 capsule by ity of capsule 00:00: mouth [place] 00 every 8 Medical (eight) Branch hours as needed for Cough. benzonatate 2021-08 Yes [id number] 100mg Take 1 Univers 100 mg 2-16 capsule by ity of capsule 00:00: mouth [place] 00 every 8 Medical (eight) Branch hours as needed for Cough. benzonatate 2021-08 Yes [id number] 100mg Take 1 [facility] 100 mg 2-16 capsule by ity of capsule 00:00: mouth [place] 00 every 8 Medical (eight) Branch hours as needed for Cough. benzonatate 2021-08 Yes [id number] 100mg Take 1 [facility] 100 mg 2-16 capsule by ity of capsule 00:00: mouth [place] 00 every 8 Medical (eight) Branch hours as needed for Cough. benzonatate 2021-08 Yes [id number] 100mg Take 1 Univers 100 mg 2-16 capsule by ity of capsule 00:00: mouth [place] 00 every 8 Medical (eight) Branch hours as needed for Cough. benzonatate 2021-08 Yes [id number] 100mg Take 1 [facility] 100 mg 2-16 capsule by ity of capsule 00:00: mouth [place] 00 every 8 Medical (eight) Branch hours as needed for Cough. benzonatate 2021-08 Yes [id number] 100mg Take 1 [facility] 100 mg 2-16 capsule by ity of capsule 00:00: mouth [place] 00 every 8 Medical (eight) Branch hours as needed for Cough. benzonatate 2021-08 Yes [id number] 100mg Take 1 [facility] 100 mg 2-16 capsule by ity of capsule 00:00: mouth [place] 00 every 8 Medical (eight) Branch hours as needed for Cough. benzonatate 2021-08 Yes [id number] 100mg Take 1 [facility] 100 mg 2-16 capsule by ity of capsule 00:00: mouth [place] 00 every 8 Medical (eight) Branch hours as needed for Cough. benzonatate 2021-08 Yes [id number] 100mg Take 1 [facility] 100 mg 2-16 capsule by ity of capsule 00:00: mouth [place] 00 every 8 Medical (eight) Branch hours as needed for Cough. benzonatate 2021-08- No [id number] 100mg Take 1 Univers 100 mg 2-16 [...] DETAILED Medical DIRECTIONS Branch methIMAzole 2021- Yes [id number] 5mg Take 1 Univers 5 mg tablet 0-25 tablet by ity of 00:00: mouth in [place] the Medical morning. Branch methIMAzole 2021- Yes [id number] 5mg Take 1 Univers 5 mg tablet 0-25 tablet by ity of 00:00: mouth in [place] the Medical morning. Branch methIMAzole 2021-08 Yes [id number] 5mg Take 1 Univers 5 mg tablet 0-25 tablet by ity of 00:00: mouth in [place] the Medical morning. Branch methIMAzole 2021-08 Yes [id number] 5mg Take 1 Univers 5 mg tablet 0-25 tablet by ity of 00:00: mouth in [place] the Medical morning. Branch methIMAzole 2021-08 Yes [id number] 5mg Take 1 Univers 5 mg tablet 0-25 tablet by ity of 00:00: mouth in [place] the Medical morning. Branch methIMAzole 2021-08 Yes [id number] 5mg Take 1 Univers 5 mg tablet 0-25 tablet by ity of 00:00: mouth in [place] the Medical morning. Branch methIMAzole 2021-08 Yes [id number] 5mg Take 1 Univers 5 mg tablet 0-25 tablet by ity of 00:00: mouth in [place] the Medical morning. Branch methIMAzole 2021-08 Yes [id number] 5mg Take 1 Univers 5 mg tablet 0-25 tablet by ity of 00:00: mouth in [place] the Medical morning. Branch methIMAzole 2021-08 Yes [id number] 5mg Take 1 Univers 5 mg tablet 0-25 tablet by ity of 00:00: mouth in [place] the Medical morning. Branch methIMAzole 2021-08 Yes [id number] 5mg Take 1 Univers 5 mg tablet 0-25 tablet by ity of 00:00: mouth in [place] the Medical morning. Branch methIMAzole 2021-08 Yes [id number] 5mg Take 1 [facility] 5 mg tablet 0-25 tablet by [facility]y of 00:00: mouth in [place] the Medical morning. Branch methIMAzole 2021-08 Yes [id number] 5mg Take 1 [facility] 5 mg tablet 0-25 tablet by [facility]y of 00:00: mouth in [place] the Medical morning. Branch methIMAzole 2021-08 Yes [id number] 5mg Take 1 [facility] 5 mg tablet 0-25 tablet by [facility]y of 00:00: mouth in [place] the Medical morning. Branch methIMAzole 2021-08 Yes [id number] 5mg Take 1 [facility] 5 mg tablet 0-25 tablet by ity of 00:00: mouth in [place] the Medical morning. Branch methIMAzole 2021-08 Yes [id number] 5mg Take 1 [facility] 5 mg tablet 0-25 tablet by [facility]y of 00:00: mouth in [place] the Medical morning. Branch methIMAzole 2021-08 Yes [id number] 5mg Take 1 [facility] 5 mg tablet 0-25 tablet by ity of 00:00: mouth in [place] the Medical morning. Branch methIMAzole 2021-08 Yes [id number] 5mg Take 1 [facility] 5 mg tablet 0-25 tablet by ity of 00:00: mouth in [place] the Medical morning. Branch methIMAzole 2021-08 Yes [id number] 5mg Take 1 [facility] 5 mg tablet 0-25 tablet by ity of 00:00: mouth in [place] the Medical morning. Branch methIMAzole 2021-08 Yes [id number] 5mg Take 1 [facility] 5 mg tablet 0-25 tablet by [facility]y of 00:00: mouth in [place] the Medical morning. Branch methIMAzole 2021-08 Yes [id number] 5mg Take 1 [facility] 5 mg tablet 0-25 tablet by ity of 00:00: mouth in [place] the Medical morning. Branch methIMAzole 2021-08 Yes [id number] 5mg Take 1 [facility] 5 mg tablet 0-25 tablet by ity of 00:00: mouth in [place] the Medical morning. Branch methIMAzole 2021-08 Yes [id number] 5mg Take 1 [facility] 5 mg tablet 0-25 tablet by ity of 00:00: mouth in [place] the Medical morning. Branch methIMAzole 2021-08 Yes [id number] 5mg Take 1 [facility] 5 mg tablet 0-25 tablet by ity of 00:00: mouth in [place] the Medical morning. Branch methIMAzole 2021-08 Yes [id number] 5mg Take 1 [facility] 5 mg tablet 0-25 tablet by ity of 00:00: mouth in [place] the Medical morning. Branch methIMAzole 2021-08 Yes [id number] 5mg Take 1 [facility] 5 mg tablet 0-25 tablet by ity of 00:00: mouth in [place] the Medical morning. Branch methIMAzole Yes [id number] 5mg Take 1 [facility] 5 mg tablet 0-25 tablet by [facility]y of 00:00: mouth in [place] the Medical morning. Branch methIMAzole 2021-08 Yes [id number] 5mg Take 1 [facility] 5 mg tablet 0-25 tablet by [facility]y of 00:00: mouth in [place] the Medical morning. Branch methIMAzole 2021-08 Yes [id number] 5mg Take 1 [facility] 5 mg tablet 0-25 tablet by [facility]y of 00:00: mouth in [place] the Medical morning. Branch methIMAzole 2021-08 Yes [id number] 5mg Take 1 [facility] 5 mg tablet 0-25 tablet by [facility]y of 00:00: mouth in [place] the Medical morning. Branch methIMAzole 2021-08 Yes [id number] 5mg Take 1 [facility] 5 mg tablet 0-25 tablet by ity of 00:00: mouth in [place] the Medical morning. Branch methIMAzole 2021-08 Yes [id number] 5mg Take 1 [facility] 5 mg tablet 0-25 tablet by ity of 00:00: mouth in [place] the Medical morning. Branch methIMAzole 2021-08 Yes [id number] 5mg Take 1 [facility] 5 mg tablet 0-25 tablet by [facility]y of 00:00: mouth in [place] the Medical morning. Branch methIMAzole 2021-08 Yes [id number] 5mg Take 1 [facility] 5 mg tablet 0-25 tablet by ity of 00:00: mouth in [place] the Medical morning. Branch methIMAzole 2021-08 Yes [id number] 5mg Take 1 [facility] 5 mg tablet 0-25 tablet by ity of 00:00: mouth in [place] the Medical morning. Branch methIMAzole 2021-08 Yes [id number] 5mg Take 1 [facility] 5 mg tablet 0-25 tablet by ity of 00:00: mouth in [place] the Medical morning. Branch methIMAzole 2021-08 Yes [id number] 5mg Take 1 [facility] 5 mg tablet 0-25 tablet by ity of 00:00: mouth in [place] the Medical morning. Branch methIMAzole 2021-08 Yes [id number] 5mg Take 1 [facility] 5 mg tablet 0-25 tablet by ity of 00:00: mouth in [place] the Medical morning. Branch methIMAzole 2021- Yes [id number] 5mg Take 1 [facility] 5 mg tablet 0-25 tablet by ity of 00:00: mouth in [place] the Medical morning. Branch methIMAzole 2021- Yes [id number] 5mg Take 1 [facility] 5 mg tablet 0-25 tablet by ity of 00:00: mouth in [place] the Medical morning. Branch methIMAzole 2021- Yes [id number] 5mg Take 1 [facility] 5 mg tablet 0-25 tablet by ity of 00:00: mouth in [place] the Medical morning. Branch methIMAzole 2021- Yes [id number] 5mg Take 1 [facility] 5 mg tablet 0-25 tablet by ity of 00:00: mouth in [place] the Medical morning. Branch methIMAzole 2021- Yes [id number] 5mg Take 1 [facility] 5 mg tablet 0-25 tablet by ity of 00:00: mouth in [place] the Medical morning. Branch methIMAzole 2021- Yes [id number] 5mg Take 1 [facility] 5 mg tablet 0-25 tablet by ity of 00:00: mouth in [place] the Medical morning. Branch methIMAzole 2021-08 Yes [id number] 5mg Take 1 [facility] 5 mg tablet 0-25 tablet by ity of 00:00: mouth in [place] the morning. Branch methIMAzole 2021-08 Yes [id number] 5mg Take 1 [facility] 5 mg tablet 0-25 tablet by ity of 00:00: mouth in [place] the Medical morning. Branch methIMAzole 2021- Yes [id number] 5mg Take 1 [facility] 5 mg tablet 0-25 tablet by ity of 00:00: mouth in [place] the Medical morning. Branch methIMAzole 2021-08 Yes [id number] 5mg Take 1 [facility] 5 mg tablet 0-25 tablet by ity of 00:00: mouth in [place] the Medical morning. Branch methIMAzole 2021- Yes [id number] 5mg Take 1 [facility] 5 mg tablet 0-25 tablet by ity of 00:00: mouth in [place] the Medical morning. Branch methIMAzole 2021- Yes [id number] 5mg Take 1 [facility] 5 mg tablet 0-25 tablet by ity of 00:00: mouth in [place] the Medical morning. Branch methIMAzole 2021- Yes [id number] 5mg Take 1 [facility] 5 mg tablet 0-25 tablet by ity of 00:00: mouth in [place] the Medical morning. Branch methIMAzole 2021- Yes [id number] 5mg Take 1 [facility] 5 mg tablet 0-25 tablet by ity of 00:00: mouth in [place] the Medical morning. Branch methIMAzole 2021- Yes [id number] 5mg Take 1 [facility] 5 mg tablet 0-25 tablet by ity of 00:00: mouth in [place] the Medical morning. Branch methIMAzole 2021- Yes [id number] 5mg Take 1 [facility] 5 mg tablet 0-25 tablet by ity of 00:00: mouth in [place] the Medical morning. Branch methIMAzole 2021- Yes [id number] 5mg Take 1 [facility] 5 mg tablet 0-25 tablet by [facility]y of 00:00: mouth in [place] the Medical morning. Branch methIMAzole 2021- Yes [id number] 5mg Take 1 [facility] 5 mg tablet 0-25 tablet by ity of 00:00: mouth in [place] the Medical morning. Branch methIMAzole 2021-08 Yes [id number] 5mg Take 1 [facility] 5 mg tablet 0-25 tablet by ity of 00:00: mouth in [place] the Medical morning. Branch methIMAzole 2021-08 Yes [id number] 5mg Take 1 [facility] 5 mg tablet 0-25 tablet by ity of 00:00: mouth in [place] the Medical morning. Branch methIMAzole 2021- Yes [id number] 5mg Take 1 [facility] 5 mg tablet 0-25 tablet by ity of 00:00: mouth in [place] the Medical morning. Branch methIMAzole 2021- Yes [id number] 5mg Take 1 [facility] 5 mg tablet 0-25 tablet by ity of 00:00: mouth in [place] the Medical morning. Branch methIMAzole 2021- Yes [id number] 5mg Take 1 [facility] 5 mg tablet 0-25 tablet by ity of 00:00: mouth in [place] the Medical morning. Branch methIMAzole 2021- Yes [id number] 5mg Take 1 [facility] 5 mg tablet 0-25 tablet by ity of 00:00: mouth in [place] 00 the Medical morning. Branch methIMAzole 2021-08 Yes [id number] 5mg Take 1 [facility] 5 mg tablet 0-25 tablet by ity of 00:00: mouth in [place] 00 the Medical morning. Branch methIMAzole 2021-08- No [id number] 5mg Take 1 [facility] 5 mg tablet 0-25 02-10 tablet by it y of 00:00: 00:00 mouth in [place] 00 :00 the Medical morning. Branch methIMAzole 2021-08- No [id number] 5mg Take 1 [facility] 5 mg tablet 0-25 02-10 tablet by it y of 00:00: 00:00 mouth in [place] 00 :00 the Medical morning. Branch methIMAzole 2021-08- No [id number] 5mg Take 1 [facility] 5 mg tablet 0-25 02-10 tablet by it y of 00:00: 00:00 mouth in [place] 00 :00 the Medical morning. Branch traMADoL 50 2021-08 Yes [facility] mg tablet 0-18 ity of 00:00: [place] 00 Medical Branch traMADoL 50 2021-08 Yes Univer s mg tablet 0-18 ity of 00:00: [place] 00 Medical Branch traMADoL 50 2021-08 Yes Univer s mg tablet 0-18 ity of 00:00: [place] 00 Medical Branch traMADoL 50 2021-08 Yes Univer s mg tablet 0-18 ity of 00:00: [place] 00 Medical Branch traMADoL 50 2021-08 Yes Univer s mg tablet 0-18 ity of 00:00: [place] 00 Medical Branch traMADoL 50 2021-08 Yes Univer s mg tablet 0-18 ity of 00:00: [place] 00 Medical Branch traMADoL 50 2021-08 Yes Univer s mg tablet 0-18 ity of 00:00: [place] 00 Medical Branch traMADoL 50 2021-08 Yes Univer s mg tablet 0-18 ity of 00:00: [place] 00 Medical Branch traMADoL 50 2021-08 Yes Univer s mg tablet 0-18 ity of 00:00: [place] 00 Medical Branch traMADoL 50 2021-08 Yes Univer s mg tablet 0-18 ity of 00:00: [place] 00 Medical Branch traMADoL 50 2021-2021- No Unive rs mg tablet 0-18 11-18 ity of 00:00: 00:00 [place] 00 :00 Medical Branch traMADoL 50 2021-08- No Unive rs mg tablet 006-20 ity of 00:00: 00:00 [place] 00 :00 Medical Branch hydroxyprog 2021-08- No [id number] 275mg [facility] esterone(PF 0-14 - ity of ) (YI 14:30: 13:21 [place] AUTO-INJECT 00 :00 Medical OR) 275 Branch mg/1.1 mL injection 275 mg hydroxyprog 2021-08- No [id number] 275mg 275 mg, [facility] esterone(PF 0- Subcutaneo i ty of ) ([place]I 14:30: 13:21 [place] AUTO-INJECT 00 :00 1 dose, On Me dical OR) 275 Fri Branch mg/1.1 mL 05/16/22 injection at 0930, 275 mg Routine hydroxyprog 2021-08- No [id number] 275mg [facility] esterone(PF 005-09 ity of ) (YI 15:15: 14:19 [place] AUTO-INJECT 00 :00 Medical OR) 275 Branch mg/1.1 mL injection 275 mg hydroxyprog 2021-08- No [id number] 275mg 275 mg, [facility] esterone(PF 005-09 Subcutaneo i ty of ) (YI 15:15: 14:19 [place], [place]CE, [place] AUTO-INJECT 00 :00 1 dose, On Me dical OR) 275 Fri Branch mg/1.1 mL 05/09/22 at injection 1015, 275 mg Routine hydroxyprog 2021- No [id number] 275mg [facility] esterone(PF 05-02 ity of ) (YI 21:45: 21:31 [place] AUTO-INJECT 00 :00 Medical OR) 275 Branch mg/1.1 mL injection 275 mg hydroxyprog 2021- No [id number] 275mg 275 mg, [facility] esterone(PF 05-02 Subcutaneo i ty of ) (YI 21:45: 21:31 [place], [place]CE, [place] AUTO-INJECT 00 :00 1 dose, On Me dical OR) 275 Fri Branch mg/1.1 mL 05/02/22 at injection 1645, 275 mg Routine hydroxyprog 2022-0 2022- No [id number] 275mg [facility] esterone(PF 05-02 ity of ) (YI :45: 21:31 [place] AUTO-INJECT 00 :00 Medical OR) 275 Branch mg/1.1 mL injection 275 mg hydroxyprog 2022-0 2022- No [id number] 275mg 275 mg, [facility] esterone(PF 05-02 Subcutaneo i ty of ) (YI :45: 21:31 [place], ONCE, [place] AUTO-INJECT 00 :00 1 dose, On Me dical OR) 275 Fri Branch mg/1.1 mL 05/02/22 at injection 1645, 275 mg Routine hydroxyprog 2022-0 2022- No [id number] 275mg [facility] esterone(PF 05-02 ity of ) (YI :45: 21:31 [place] AUTO-INJECT 00 :00 Medical OR) 275 Branch mg/1.1 mL injection 275 mg hydroxyprog 2022-0 2022- No [id number] 275mg 275 mg, [facility] esterone(PF 05-02 Subcutaneo i ty of ) (YI :45: 21:31 [place], ONCE, [place] AUTO-INJECT 00 :00 1 dose, On Me dical OR) 275 Fri Branch mg/1.1 mL 05/02/22 at injection 1645, 275 mg Routine hydroxyprog 2022-0 2022- No [id number] 275mg [facility] esterone(PF 04-25 ity of ) (YI 15:45: 14:56 [place] AUTO-INJECT 00 :00 Medical OR) 275 Branch mg/1.1 mL injection 275 mg hydroxyprog 2022-0 2022- No [id number] 275mg 275 mg, [facility] esterone(PF 04-25 Subcutaneo i ty of ) (YI 15:45: 14:56 [place], ONCE, [place] AUTO-INJECT 00 :00 1 dose, On Me dical OR) 275 Fri Branch mg/1.1 mL 04/25/22 at injection 1045, 275 mg Routine hydroxyprog 2022-0 2022- No [id number] 275mg [facility] esterone(PF 04-25 ity of ) (YI 15:45: 14:56 [place] AUTO-INJECT 00 :00 Medical OR) 275 Branch mg/1.1 mL injection 275 mg hydroxyprog 2021-0 2021- No [id number] 275mg 275 mg, [facility] esterone(PF 04-25 Subcutaneo [...] injection 00 :00 Medical Branch YI, PF, 2-0 2022- No Unive rs 275 mg/1.1 16 11-18 ity of mL 00:00: 00:00 [place] injection 00 :00 Medical Branch cephALEXin 2-0 Yes [id number] 500mg Take 1 [facility] (KEFLEX) 9-11 capsule by ity o f 500 mg 00:00: mouth in [place] capsule 00 the Medical morning Branch and 1 capsule in the evening. cephALEXin 2-0 Yes [id number] 500mg Take 1 [facility] (KEFLEX) 9-11 capsule by ity o f 500 mg 00:00: mouth in [place] capsule 00 the Medical morning Branch and 1 capsule in the evening. cephALEXin 2-0 Yes [id number] 500mg Take 1 [facility] (KEFLEX) 9-11 capsule by ity o f 500 mg 00:00: mouth in [place] capsule 00 the Medical morning Branch and 1 capsule in the evening. cephALEXin 2022-0 Yes [id number] 500mg Take 1 [facility] (KEFLEX) 9-11 capsule by ity o f 500 mg 00:00: mouth in [place] capsule 00 the Medical morning Branch and 1 capsule in the evening. cephALEXin 2022-0 Yes [id number] 500mg Take 1 [facility] (KEFLEX) 9-11 capsule by ity o f 500 mg 00:00: mouth in [place] capsule 00 the Medical morning Branch and 1 capsule in the evening. cephALEXin 2022-0 Yes [id number] 500mg Take 1 [facility] (KEFLEX) 9-11 capsule by ity o f 500 mg 00:00: mouth in [place] capsule 00 the Medical morning Branch and 1 capsule in the evening. cephALEXin 2022-0 Yes [id number] 500mg Take 1 [facility] (KEFLEX) 9-11 capsule by ity o f 500 mg 00:00: mouth in [place] capsule 00 the Medical morning Branch and 1 capsule in the evening. cephALEXin 2022-0 Yes [id number] 500mg Take 1 [facility] (KEFLEX) 9-11 capsule by ity o f 500 mg 00:00: mouth in [place] capsule 00 the Medical morning Branch and 1 capsule in the evening. cephALEXin 2022-0 Yes [id number] 500mg Take 1 [facility] (KEFLEX) 9-11 capsule by ity o f 500 mg 00:00: mouth in [place] capsule 00 the Medical morning Branch and 1 capsule in the evening. cephALEXin 2022-0 Yes [id number] 500mg Take 1 [facility] (KEFLEX) 9-11 capsule by ity o f 500 mg 00:00: mouth in [place] capsule 00 the Medical morning Branch and 1 capsule in the evening. cephALEXin 2022-0 Yes [id number] 500mg Take 1 [facility] (KEFLEX) 9-11 capsule by ity o f 500 mg 00:00: mouth in [place] capsule 00 the Medical morning Branch and 1 capsule in the evening. cephALEXin 2022-0 Yes [id number] 500mg Take 1 [facility] (KEFLEX) 9-11 capsule by ity o f 500 mg 00:00: mouth in [place] capsule 00 the Medical morning Branch and 1 capsule in the evening. cephALEXin 2022-0 Yes [id number] 500mg Take 1 [facility] (KEFLEX) 9-11 capsule by ity o f 500 mg 00:00: mouth in [place] capsule 00 the Medical morning Branch and 1 capsule in the evening. cephALEXin 2022-0 Yes [id number] 500mg Take 1 [facility] (KEFLEX) 9-11 capsule by ity o f 500 mg 00:00: mouth in [place] capsule 00 the Medical morning Branch and 1 capsule in the evening. cephALEXin 2022-0 Yes [id number] 500mg Take 1 [facility] (KEFLEX) 9-11 capsule by ity o f 500 mg 00:00: mouth in [place] capsule 00 the Medical morning Branch and 1 capsule in the evening. cephALEXin 2022-0 Yes [id number] 500mg Take 1 [facility] (KEFLEX) 9-11 capsule by ity o f 500 mg 00:00: mouth in [place] capsule 00 the Medical morning Branch and 1 capsule in the evening. cephALEXin 2022-0 Yes [id number] 500mg Take 1 [facility] (KEFLEX) 9-11 capsule by ity o f 500 mg 00:00: mouth in [place] capsule 00 the Medical morning Branch and 1 capsule in the evening. cephALEXin 2022-0 Yes [id number] 500mg Take 1 [facility] (KEFLEX) 9-11 capsule by ity o f 500 mg 00:00: mouth in [place] capsule 00 the Medical morning Branch and 1 capsule in the evening. cephALEXin 2022-0 Yes [id number] 500mg Take 1 [facility] (KEFLEX) 9-11 capsule by ity o f 500 mg 00:00: mouth in [place] capsule 00 the Medical morning Branch and 1 capsule in the evening. cephALEXin 2022-0 Yes [id number] 500mg Take 1 [facility] (KEFLEX) 9-11 capsule by ity o f 500 mg 00:00: mouth in [place] capsule 00 the Medical morning Branch and 1 capsule in the evening. cephALEXin 2022-0 Yes [id number] 500mg Take 1 [facility] (KEFLEX) 9-11 capsule by ity o f 500 mg 00:00: mouth in [place] capsule 00 the Medical morning Branch and 1 capsule in the evening. cephALEXin 2022-0 Yes [id number] 500mg Take 1 [facility] (KEFLEX) 9-11 capsule by ity o f 500 mg 00:00: mouth in [place] capsule 00 the Medical morning Branch and 1 capsule in the evening. cephALEXin 2022-0 Yes [id number] 500mg Take 1 [facility] (KEFLEX) 9-11 capsule by ity o f 500 mg 00:00: mouth in [place] capsule 00 the Medical morning Branch and 1 capsule in the evening. cephALEXin 2022-0 Yes [id number] 500mg Take 1 [facility] (KEFLEX) 9-11 capsule by ity o f 500 mg 00:00: mouth in [place] capsule 00 the Medical morning Branch and 1 capsule in the evening. cephALEXin 2022-0 Yes [id number] 500mg Take 1 [facility] (KEFLEX) 9-11 capsule by ity o f 500 mg 00:00: mouth in [place] capsule 00 the Medical morning Branch and 1 capsule in the evening. cephALEXin 2022-0 Yes [id number] 500mg Take 1 [facility] (KEFLEX) 9-11 capsule by ity o f 500 mg 00:00: mouth in [place] capsule 00 the Medical morning Branch and 1 capsule in the evening. cephALEXin 2022-0 Yes [id number] 500mg Take 1 [facility] (KEFLEX) 9-11 capsule by ity o f 500 mg 00:00: mouth in [place] capsule 00 the Medical morning Branch and 1 capsule in the evening. cephALEXin 2022-0 Yes [id number] 500mg Take 1 [facility] (KEFLEX) 9-11 capsule by ity o f 500 mg 00:00: mouth in [place] capsule 00 the Medical morning Branch and 1 capsule in the evening. cephALEXin 2022-0 Yes [id number] 500mg Take 1 [facility] (KEFLEX) 9-11 capsule by ity o f 500 mg 00:00: mouth in [place] capsule 00 the Medical morning Branch and 1 capsule in the evening. cephALEXin 2022-0 2022- No [id number] 500mg Take 1 [facility] (KEFLEX) 9-11 10-21 capsule by ity of 500 mg 00:00: 00:00 mouth in [place] capsule 00 :00 the Medical morning Branch and 1 capsule in the evening. cephALEXin 2022-0 2022- No [id number] 500mg Take 1 [facility] (KEFLEX) 9-11 10-21 capsule by ity of 500 mg 00:00: 00:00 mouth in [place] capsule 00 :00 the Medical morning Branch and 1 capsule in the evening. cephALEXin 2022-0 2022- No [id number] 500mg Take 1 [facility] (KEFLEX) 9-11 10-21 capsule by ity of 500 mg 00:00: 00:00 mouth in [place] capsule 00 :00 the Medical morning Branch and 1 capsule in the evening. cephALEXin 2021- No [id number] 500mg Take 1 [facility] (KEFLEX) 9-11 10-21 capsule by ity of 500 mg 00:00: 00:00 mouth in [place] capsule 00 :00 the Medical morning Branch and 1 capsule in the evening. metroNIDAZO 0 2021- No 500mg 500 mg, U n[facility] LE (FLAGYL) 04-11- Oral, ity of tablet 500 23:15: 23:48 ONCE, 1 [place] as mg 00 :00 dose, On Medical Thu04/11/22 Branch at 1815, Routine
Reason for Anti-Infec tive: Documented Infection< br>Documen vivek Infection Site: Other
O ther site: vaginal
Duration of Therapy: 7 days metroNIDAZO 2021-0 Yes [id number] 500mg Take 1 [facility] LE (FLAGYL) 9- tablet by ity of 500 mg 00:00: mouth [place] tablet 00 every 12 Medical (twelve) Branch hours. metroNIDAZO 2021-0 Yes [id number] 500mg Take 1 [facility] LE (FLAGYL) 9- tablet by ity of 500 mg 00:00: mouth [place] tablet 00 every 12 Medical (twelve) Branch hours. metroNIDAZO 2021-0 Yes [id number] 500mg Take 1 [facility] LE (FLAGYL) 9- tablet by ity of 500 mg 00:00: mouth [place] tablet 00 every 12 Medical (twelve) Branch hours. metroNIDAZO 2021-0 Yes [id number] 500mg Take 1 [facility] LE (FLAGYL) 9-09 tablet by ity of 500 mg 00:00: mouth [place] tablet 00 every 12 Medical (twelve) Branch hours. metroNIDAZO 2021-0 Yes [id number] 500mg Take 1 [facility] LE (FLAGYL) 9-09 tablet by ity of 500 mg 00:00: mouth [place] tablet 00 every 12 Medical (twelve) Branch hours. metroNIDAZO 2021-0 Yes [id number] 500mg Take 1 [facility] LE (FLAGYL) 9-09 tablet by ity of 500 mg 00:00: mouth [place] tablet 00 every 12 Medical (twelve) Branch hours. metroNIDAZO 2021-0 Yes [id number] 500mg Take 1 [facility] LE (FLAGYL) 9-09 tablet by ity of 500 mg 00:00: mouth [place] tablet 00 every 12 Medical (twelve) Branch hours. metroNIDAZO 2022-0 Yes [id number] 500mg Take 1 [facility] LE (FLAGYL) 9-09 tablet by ity of 500 mg 00:00: mouth [place] tablet 00 every 12 Medical (twelve) Branch hours. metroNIDAZO 2022-0 Yes [id number] 500mg Take 1 [facility] LE (FLAGYL) 9-09 tablet by ity of 500 mg 00:00: mouth [place] tablet 00 every 12 Medical (twelve) Branch hours. metroNIDAZO 2022-0 Yes [id number] 500mg Take 1 [facility] LE (FLAGYL) 9-09 tablet by ity of 500 mg 00:00: mouth [place] tablet 00 every 12 Medical (twelve) Branch hours. metroNIDAZO 2-0 Yes [id number] 500mg Take 1 [facility] LE (FLAGYL) 9-09 tablet by ity of 500 mg 00:00: mouth [place] tablet 00 every 12 Medical (twelve) Branch hours. metroNIDAZO 2-0 Yes [id number] 500mg Take 1 [facility] LE (FLAGYL) 9-09 tablet by ity of 500 mg 00:00: mouth [place] tablet 00 every 12 Medical (twelve) Branch hours. metroNIDAZO 2-0 Yes [id number] 500mg Take 1 [facility] LE (FLAGYL) 9-09 tablet by ity of 500 mg 00:00: mouth [place] tablet 00 every 12 Medical (twelve) Branch hours. metroNIDAZO 2-0 Yes [id number] 500mg Take 1 [facility] LE (FLAGYL) 9-09 tablet by ity of 500 mg 00:00: mouth [place] tablet 00 every 12 Medical (twelve) Branch hours. metroNIDAZO 2-0 Yes [id number] 500mg Take 1 [facility] LE (FLAGYL) 9-09 tablet by ity of 500 mg 00:00: mouth [place] tablet 00 every 12 Medical (twelve) Branch hours. metroNIDAZO 2022-0 Yes [id number] 500mg Take 1 [facility] LE (FLAGYL) 9-09 tablet by ity of 500 mg 00:00: mouth [place] tablet 00 every 12 Medical (twelve) Branch hours. metroNIDAZO 2022-0 Yes [id number] 500mg Take 1 [facility] LE (FLAGYL) 9-09 tablet by ity of 500 mg 00:00: mouth [place] tablet 00 every 12 Medical (twelve) Branch hours. metroNIDAZO 2-0 Yes [id number] 500mg Take 1 [facility] LE (FLAGYL) 9-09 tablet by ity of 500 mg 00:00: mouth [place] tablet 00 every 12 Medical (twelve) Branch hours. metroNIDAZO 2021-0 Yes [id number] 500mg Take 1 [facility] LE (FLAGYL) 9-09 tablet by ity of 500 mg 00:00: mouth [place] tablet 00 every 12 Medical (twelve) Branch hours. metroNIDAZO 2021-0 Yes [id number] 500mg Take 1 [facility] LE (FLAGYL) 9-09 tablet by ity of 500 mg 00:00: mouth [place] tablet 00 every 12 Medical (twelve) Branch hours. metroNIDAZO 2021-0 Yes [id number] 500mg Take 1 [facility] LE (FLAGYL) 9-09 tablet by ity of 500 mg 00:00: mouth [place] tablet 00 every 12 Medical (twelve) Branch hours. metroNIDAZO 2021-0 Yes [id number] 500mg Take 1 [facility] LE (FLAGYL) 9-09 tablet by ity of 500 mg 00:00: mouth [place] tablet 00 every 12 Medical (twelve) Branch hours. metroNIDAZO 2021-0 Yes [id number] 500mg Take 1 [facility] LE (FLAGYL) 9-09 tablet by ity of 500 mg 00:00: mouth [place] tablet 00 every 12 Medical (twelve) Branch hours. metroNIDAZO 2021-0 Yes [id number] 500mg Take 1 [facility] LE (FLAGYL) 9-09 tablet by ity of 500 mg 00:00: mouth [place] tablet 00 every 12 Medical (twelve) Branch hours. metroNIDAZO 2021-0 Yes [id number] 500mg Take 1 [facility] LE (FLAGYL) 9-09 tablet by ity of 500 mg 00:00: mouth [place] tablet 00 every 12 Medical (twelve) Branch hours. metroNIDAZO 2021-0 Yes [id number] 500mg Take 1 [facility] LE (FLAGYL) 9-09 tablet by ity of 500 mg 00:00: mouth [place] tablet 00 every 12 Medical (twelve) Branch hours. metroNIDAZO 2-0 Yes [id number] 500mg Take 1 [facility] LE (FLAGYL) 9-09 tablet by ity of 500 mg 00:00: mouth [place] tablet 00 every 12 Medical (twelve) Branch hours. metroNIDAZO 2022-0 Yes [id number] 500mg Take 1 [facility] LE (FLAGYL) 9-09 tablet by ity of 500 mg 00:00: mouth [place] tablet 00 every 12 Medical (twelve) Branch hours. metroNIDAZO 2-0 Yes [id number] 500mg Take 1 [facility] LE (FLAGYL) 9-09 tablet by ity of 500 mg 00:00: mouth [place] tablet 00 every 12 Medical (twelve) Branch hours. metroNIDAZO 2-0 Yes [id number] 500mg Take 1 [facility] LE (FLAGYL) 9-09 tablet by ity of 500 mg 00:00: mouth [place] tablet 00 every 12 Medical (twelve) Branch hours. metroNIDAZO 2021-0 Yes [id number] 500mg Take 1 [facility] LE (FLAGYL) 9-09 tablet by ity of 500 mg 00:00: mouth [place] tablet 00 every 12 Medical (twelve) Branch hours. metroNIDAZO 2021-0 Yes [id number] 500mg Take 1 [facility] LE (FLAGYL) 9-09 tablet by ity of 500 mg 00:00: mouth [place] tablet 00 every 12 Medical (twelve) Branch hours. metroNIDAZO 2021-0 Yes [id number] 500mg Take 1 [facility] LE (FLAGYL) 9-09 tablet by ity of 500 mg 00:00: mouth [place] tablet 00 every 12 Medical (twelve) Branch hours. metroNIDAZO 2021-0 Yes [id number] 500mg Take 1 [facility] LE (FLAGYL) 9-09 tablet by ity of 500 mg 00:00: mouth [place] tablet 00 every 12 Medical (twelve) Branch hours. metroNIDAZO 2021-0 Yes [id number] 500mg Take 1 [facility] LE (FLAGYL) 9-09 tablet by ity of 500 mg 00:00: mouth [place] tablet 00 every 12 Medical (twelve) Branch hours. metroNIDAZO 2-0 Yes [id number] 500mg Take 1 [facility] LE (FLAGYL) 9-09 tablet by ity of 500 mg 00:00: mouth [place] tablet 00 every 12 Medical (twelve) Branch hours. metroNIDAZO 2-0 Yes [id number] 500mg Take 1 [facility] LE (FLAGYL) 9-09 tablet by [facility] 500 mg 00:00: mouth [place] tablet 00 every 12 Medical (twelve) Branch hours. metroNIDAZO 2-0 Yes [id number] 500mg Take 1 [facility] (FLAGYL) 9-09 tablet by [facility] 500 mg 00:00: mouth [place] tablet 00 every 12 Medical (twelve) Branch hours. metroNIDAZO 2-0 Yes [id number] 500mg Take 1 [facility] (FLAGYL) 9-09 tablet by [facility] of 500 mg 00:00: mouth [place] tablet 00 every 12 Medical (twelve) Branch hours. metroNIDAZO 2-0 Yes [id number] 500mg Take 1 [facility] (FLAGYL) 9-09 tablet by [facility] of 500 mg 00:00: mouth [place] tablet 00 every 12 Medical (twelve) Branch hours. metroNIDAZO 2021-0 Yes [id number] 500mg Take 1 [facility] (FLAGYL) 9-09 tablet by [facility] of 500 mg 00:00: mouth [place] tablet 00 every 12 Medical (twelve) Branch hours. metroNIDAZO 2021-0 Yes [id number] 500mg Take 1 [facility] (FLAGYL) 9-09 tablet by [facility] of 500 mg 00:00: mouth [place] tablet 00 every 12 Medical (twelve) Branch hours. metroNIDAZO 2021-0 2022- No [id number] 500mg Take 1 [facility] (FLAGYL) 9-09 11-18 tablet by it y of 500 mg 00:00: 00:00 mouth [place] tablet 00 :00 every 12 Medical (twelve) Branch hours. metroNIDAZO 2021-0 2022- No [id number] 500mg Take 1 [facility] (FLAGYL) 9-09 11-18 tablet by it y of 500 mg 00:00: 00:00 mouth [place] tablet 00 :00 every 12 Medical (twelve) Branch hours. metoclopram 2-0 Yes [id number] 10mg Take 1 [facility] HCl 10 8-31 tablet by [facility] of mg tablet 00:00: mouth [place] 00 every 6 Medical (six) Branch hours as needed for Nausea and Vomiting (N/V) or Gastroesop hageal reflux. famotidine 2022-0 Yes [id number] 20mg Take 1 [facility] 20 mg 8-31 tablet by [facility] of tablet 00:00: mouth in [place] 00 the Medical morning Branch and 1 tablet in the evening. metoclopram 2022-0 Yes [id number] 10mg Take 1 [facility] HCl 10 8-31 tablet by [facility] of mg tablet 00:00: mouth [place] 00 every 6 Medical (six) Branch hours as needed for Nausea and Vomiting (N/V) or Gastroesop hageal reflux. famotidine 2022-0 Yes [id number] 20mg Take 1 [facility] 20 mg 8-31 tablet by [facility] of tablet 00:00: mouth in [place] 00 the Medical morning Branch and 1 tablet in the evening. metoclopram 2022-0 Yes [id number] 10mg Take 1 [facility] HCl 10 8-31 tablet by [facility] of mg tablet 00:00: mouth [place] 00 every 6 Medical (six) Branch hours as needed for Nausea and Vomiting (N/V) or Gastroesop hageal reflux. famotidine 2022-0 Yes [id number] 20mg Take 1 [facility] 20 mg 8-31 tablet by [facility] of tablet 00:00: mouth in [place] 00 the Medical morning Branch and 1 tablet in the evening. metoclopram 2022-0 Yes [id number] 10mg Take 1 [facility] HCl 10 8-31 tablet by [facility] of mg tablet 00:00: mouth [place] [address] every 6 Medical (six) Branch hours as needed for Nausea and Vomiting (N/V) or Gastroesop hageal reflux. famotidine 2022-0 Yes [id number] 20mg Take 1 [facility] 20 mg 8-31 tablet by [facility] of tablet 00:00: mouth in [place] 00 the Medical morning Branch and 1 tablet in the evening. metoclopram 2022-0 Yes [id number] 10mg Take 1 [facility] HCl 10 8-31 tablet by [facility] of mg tablet 00:00: mouth [place] 00 every 6 Medical (six) Branch hours as needed for Nausea and Vomiting (N/V) or Gastroesop hageal reflux. famotidine 2022-0 Yes [id number] 20mg Take 1 [facility] 20 mg 8-31 tablet by [facility] of tablet 00:00: mouth in [place] 00 the Medical morning Branch and 1 tablet in the evening. metoclopram 2022-0 Yes [id number] 10mg Take 1 [facility] HCl 10 8-31 tablet by [facility] of mg tablet 00:00: mouth [place] 00 every 6 Medical (six) Branch hours as needed for Nausea and Vomiting (N/V) or Gastroesop hageal reflux. famotidine 2022-0 Yes [id number] 20mg Take 1 [facility] 20 mg 8-31 tablet by [facility] of tablet 00:00: mouth in [place] 00 the Medical morning Branch and 1 tablet in the evening. metoclopram 2022-0 Yes [id number] 10mg Take 1 [facility] HCl 10 8-31 tablet by [facility] of mg tablet 00:00: mouth [place] 00 every 6 Medical (six) Branch hours as needed for Nausea and Vomiting (N/V) or Gastroesop hageal reflux. famotidine 2022-0 Yes [id number] 20mg Take 1 [facility] 20 mg 8-31 tablet by [facility] of tablet 00:00: mouth in [place] 00 the Medical morning Branch and 1 tablet in the evening. metoclopram 2022-0 Yes [id number] 10mg Take 1 [facility] HCl 10 8-31 tablet by [facility] of mg tablet 00:00: mouth [place] 00 every 6 Medical (six) Branch hours as needed for Nausea and Vomiting (N/V) or Gastroesop hageal reflux. famotidine 2022-0 Yes [id number] 20mg Take 1 [facility] 20 mg 8-31 tablet by [facility] of tablet 00:00: mouth in [place] 00 the Medical morning Branch and 1 tablet in the evening. metoclopram 2022-0 Yes [id number] 10mg Take 1 [facility] HCl 10 8-31 tablet by [facility] of mg tablet 00:00: mouth [place] 00 every 6 Medical (six) Branch hours as needed for Nausea and Vomiting (N/V) or Gastroesop hageal reflux. famotidine 2022-0 Yes [id number] 20mg Take 1 [facility] 20 mg 8-31 tablet by [facility] of tablet 00:00: mouth in [place] 00 the Medical morning Branch and 1 tablet in the evening. metoclopram 2022-0 Yes [id number] 10mg Take 1 [facility] HCl 10 8-31 tablet by [facility] of mg tablet 00:00: mouth [place] 00 every 6 Medical (six) Branch hours as needed for Nausea and Vomiting (N/V) or Gastroesop hageal reflux. famotidine 2022-0 Yes [id number] 20mg Take 1 [facility] 20 mg 8-31 tablet by [facility] of tablet 00:00: mouth in [place] 00 the Medical morning Branch and 1 tablet in the evening. metoclopram 2022-0 Yes [id number] 10mg Take 1 [facility] HCl 10 8-31 tablet by [facility] of mg tablet 00:00: mouth [place] 00 every 6 Medical (six) Branch hours as needed for Nausea and Vomiting (N/V) or Gastroesop hageal reflux. famotidine 2022-0 Yes [id number] 20mg Take 1 [facility] 20 mg 8-31 tablet by [facility] of tablet 00:00: mouth in [place] 00 the Medical morning Branch and 1 tablet in the evening. metoclopram 2022-0 Yes [id number] 10mg Take 1 [facility] HCl 10 8-31 tablet by [facility] of mg tablet 00:00: mouth [place] 00 every 6 Medical (six) Branch hours as needed for Nausea and Vomiting (N/V) or Gastroesop hageal reflux. famotidine 2022-0 Yes [id number] 20mg Take 1 [facility] 20 mg 8-31 tablet by [facility] of tablet 00:00: mouth in [place] 00 the Medical morning Branch and 1 tablet in the evening. metoclopram 2022-0 Yes [id number] 10mg Take 1 [facility] HCl 10 8-31 tablet by [facility] of mg tablet 00:00: mouth [place] 00 every 6 Medical (six) Branch hours as needed for Nausea and Vomiting (N/V) or Gastroesop hageal reflux. famotidine 2022-0 Yes [id number] 20mg Take 1 [facility] 20 mg 8-31 tablet by [facility] of tablet 00:00: mouth in [place] 00 the Medical morning Branch and 1 tablet in the evening. metoclopram 2022-0 Yes [id number] 10mg Take 1 [facility] HCl 10 8-31 tablet by [facility] of mg tablet 00:00: mouth [place] 00 every 6 Medical (six) Branch hours as needed for Nausea and Vomiting (N/V) or Gastroesop hageal reflux. famotidine 2022-0 Yes [id number] 20mg Take 1 [facility] 20 mg 8-31 tablet by [facility] of tablet 00:00: mouth in [place] 00 the Medical morning Branch and 1 tablet in the evening. metoclopram 2022-0 Yes [id number] 10mg Take 1 [facility] HCl 10 8-31 tablet by [facility] of mg tablet 00:00: mouth [place] 00 every 6 Medical (six) Branch hours as needed for Nausea and Vomiting (N/V) or Gastroesop hageal reflux. famotidine 2022-0 Yes [id number] 20mg Take 1 [facility] 20 mg 8-31 tablet by [facility] of tablet 00:00: mouth in [place] 00 the Medical morning Branch and 1 tablet in the evening. metoclopram 2022-0 Yes [id number] 10mg Take 1 [facility] HCl 10 8-31 tablet by [facility] of mg tablet 00:00: mouth [place] 00 every 6 Medical (six) Branch hours as needed for Nausea and Vomiting (N/V) or Gastroesop hageal reflux. famotidine 2022-0 Yes [id number] 20mg Take 1 [facility] 20 mg 8-31 tablet by [facility] of tablet 00:00: mouth in [place] 00 the Medical morning Branch and 1 tablet in the evening. metoclopram 2022-0 Yes [id number] 10mg Take 1 [facility] HCl 10 8-31 tablet by [facility] of mg tablet 00:00: mouth [place] 00 every 6 Medical (six) Branch hours as needed for Nausea and Vomiting (N/V) or Gastroesop hageal reflux. famotidine 2022-0 Yes [id number] 20mg Take 1 [facility] 20 mg 8-31 tablet by [facility] of tablet 00:00: mouth in [place] 00 the Medical morning Branch and 1 tablet in the evening. metoclopram 2022-0 Yes [id number] 10mg Take 1 [facility] HCl 10 8-31 tablet by [facility] of mg tablet 00:00: mouth [place] 00 every 6 Medical (six) Branch hours as needed for Nausea and Vomiting (N/V) or Gastroesop hageal reflux. famotidine 2022-0 Yes [id number] 20mg Take 1 [facility] 20 mg 8-31 tablet by [facility] of tablet 00:00: mouth in [place] 00 the Medical morning Branch and 1 tablet in the evening. metoclopram 2022-0 Yes [id number] 10mg Take 1 [facility] HCl 10 8-31 tablet by [facility] of mg tablet 00:00: mouth [place] 00 every 6 Medical (six) Branch hours as needed for Nausea and Vomiting (N/V) or Gastroesop hageal reflux. famotidine 2022-0 Yes [id number] 20mg Take 1 [facility] 20 mg 8-31 tablet by [facility] of tablet 00:00: mouth in [place] 00 the Medical morning Branch and 1 tablet in the evening. metoclopram 2022-0 Yes [id number] 10mg Take 1 [facility] HCl 10 8-31 tablet by [facility] of mg tablet 00:00: mouth [place] 00 every 6 Medical (six) Branch hours as needed for Nausea and Vomiting (N/V) or Gastroesop hageal reflux. famotidine 2022-0 Yes [id number] 20mg Take 1 [facility] 20 mg 8-31 tablet by [facility] of tablet 00:00: mouth in [place] 00 the Medical morning Branch and 1 tablet in the evening. metoclopram 2022-0 Yes [id number] 10mg Take 1 [facility] HCl 10 8-31 tablet by [facility] of mg tablet 00:00: mouth [place] 00 every 6 Medical (six) Branch hours as needed for Nausea and Vomiting (N/V) or Gastroesop hageal reflux. famotidine 2022-0 Yes [id number] 20mg Take 1 [facility] 20 mg 8-31 tablet by [facility] of tablet 00:00: mouth in [place] 00 the Medical morning Branch and 1 tablet in the evening. metoclopram 2022-0 Yes [id number] 10mg Take 1 [facility] HCl 10 8-31 tablet by [facility] of mg tablet 00:00: mouth [place] 00 every 6 Medical (six) Branch hours as needed for Nausea and Vomiting (N/V) or Gastroesop hageal reflux. famotidine 2022-0 Yes [id number] 20mg Take 1 [facility] 20 mg 8-31 tablet by [facility] of tablet 00:00: mouth in [place] 00 the Medical morning Branch and 1 tablet in the evening. metoclopram 2022-0 Yes [id number] 10mg Take 1 [facility] HCl 10 8-31 tablet by [facility] of mg tablet 00:00: mouth [place] 00 every 6 Medical (six) Branch hours as needed for Nausea and Vomiting (N/V) or Gastroesop hageal reflux. famotidine 2022-0 Yes [id number] 20mg Take 1 [facility] 20 mg 8-31 tablet by [facility] of tablet 00:00: mouth in [place] 00 the Medical morning Branch and 1 tablet in the evening. metoclopram 2022-0 Yes [id number] 10mg Take 1 [facility] HCl 10 8-31 tablet by [facility] of mg tablet 00:00: mouth [place] 00 every 6 Medical (six) Branch hours as needed for Nausea and Vomiting (N/V) or Gastroesop hageal reflux. famotidine 2022-0 Yes [id number] 20mg Take 1 [facility] 20 mg 8-31 tablet by [facility] of tablet 00:00: mouth in [place] 00 the Medical morning Branch and 1 tablet in the evening. metoclopram 2022-0 Yes [id number] 10mg Take 1 [facility] HCl 10 8-31 tablet by [facility] of mg tablet 00:00: mouth [place] 00 every 6 Medical (six) Branch hours as needed for Nausea and Vomiting (N/V) or Gastroesop hageal reflux. famotidine 2022-0 Yes [id number] 20mg Take 1 [facility] 20 mg 8-31 tablet by [facility] of tablet 00:00: mouth in [place] 00 the Medical morning Branch and 1 tablet in the evening. metoclopram 2022-0 Yes [id number] 10mg Take 1 [facility] HCl 10 8-31 tablet by [facility] of mg tablet 00:00: mouth [place] [address] every 6 Medical (six) Branch hours as needed for Nausea and Vomiting (N/V) or Gastroesop hageal reflux. famotidine 2022-0 Yes [id number] 20mg Take 1 [facility] 20 mg 8-31 tablet by [facility] of tablet 00:00: mouth in [place] 00 the Medical morning Branch and 1 tablet in the evening. metoclopram 2022-0 Yes [id number] 10mg Take 1 [facility] HCl 10 8-31 tablet by [facility] of mg tablet 00:00: mouth [place] 00 every 6 Medical (six) Branch hours as needed for Nausea and Vomiting (N/V) or Gastroesop hageal reflux. famotidine 2022-0 Yes [id number] 20mg Take 1 [facility] 20 mg 8-31 tablet by [facility] of tablet 00:00: mouth in [place] 00 the Medical morning Branch and 1 tablet in the evening. metoclopram 2022-0 Yes [id number] 10mg Take 1 [facility] HCl 10 8-31 tablet by [facility] of mg tablet 00:00: mouth [place] 00 every 6 Medical (six) Branch hours as needed for Nausea and Vomiting (N/V) or Gastroesop hageal reflux. famotidine 2022-0 Yes [id number] 20mg Take 1 [facility] 20 mg 8-31 tablet by [facility] of tablet 00:00: mouth in [place] 00 the Medical morning Branch and 1 tablet in the evening. metoclopram 2022-0 Yes [id number] 10mg Take 1 [facility] HCl 10 8-31 tablet by [facility] of mg tablet 00:00: mouth [place] 00 every 6 Medical (six) Branch hours as needed for Nausea and Vomiting (N/V) or Gastroesop hageal reflux. famotidine 2022-0 Yes [id number] 20mg Take 1 [facility] 20 mg 8-31 tablet by it[facility] of tablet 00:00: mouth in [place] 00 the Medical morning Branch and 1 tablet in the evening. metoclopram 2022-0 Yes [id number] 10mg Take 1 [facility] HCl 10 8-31 tablet by [facility] of mg tablet 00:00: mouth [place] [address] every 6 Medical (six) Branch hours as needed for Nausea and Vomiting (N/V) or Gastroesop hageal reflux. famotidine 2022-0 Yes [id number] 20mg Take 1 [facility] 20 mg 8-31 tablet by [facility] of tablet 00:00: mouth in [place] 00 the Medical morning Branch and 1 tablet in the evening. metoclopram 2022-0 Yes [id number] 10mg Take 1 [facility] HCl 10 8-31 tablet by [facility] of mg tablet 00:00: mouth [place] [address] every 6 Medical (six) Branch hours as needed for Nausea and Vomiting (N/V) or Gastroesop hageal reflux. famotidine 2022-0 Yes [id number] 20mg Take 1 [facility] 20 mg 8-31 tablet by [facility] of tablet 00:00: mouth in [place] 00 the Medical morning Branch and 1 tablet in the evening. metoclopram 2022-0 Yes [id number] 10mg Take 1 [facility] HCl 10 8-31 tablet by [facility] of mg tablet 00:00: mouth [place] [address] every 6 Medical (six) Branch hours as needed for Nausea and Vomiting (N/V) or Gastroesop hageal reflux. famotidine 2022-0 Yes [id number] 20mg Take 1 [facility] 20 mg 8-31 tablet by [facility] of tablet 00:00: mouth in [place] 00 the Medical morning Branch and 1 tablet in the evening. metoclopram 2022-0 Yes [id number] 10mg Take 1 [facility] HCl 10 8-31 tablet by [facility] of mg tablet 00:00: mouth [place] 00 every 6 Medical (six) Branch hours as needed for Nausea and Vomiting (N/V) or Gastroesop hageal reflux. famotidine 2022-0 Yes [id number] 20mg Take 1 [facility] 20 mg 8-31 tablet by [facility] of tablet 00:00: mouth in [place] 00 the Medical morning Branch and 1 tablet in the evening. metoclopram 2022-0 Yes [id number] 10mg Take 1 [facility] HCl 10 8-31 tablet by [facility] of mg tablet 00:00: mouth [place] 00 every 6 Medical (six) Branch hours as needed for Nausea and Vomiting (N/V) or Gastroesop hageal reflux. famotidine 2022-0 Yes [id number] 20mg Take 1 [facility] 20 mg 8-31 tablet by [facility] of tablet 00:00: mouth in [place] 00 the Medical morning Branch and 1 tablet in the evening. metoclopram 2022-0 Yes [id number] 10mg Take 1 [facility] HCl 10 8-31 tablet by [facility] of mg tablet 00:00: mouth [place] 00 every 6 Medical (six) Branch hours as needed for Nausea and Vomiting (N/V) or Gastroesop hageal reflux. famotidine 2022-0 Yes [id number] 20mg Take 1 [facility] 20 mg 8-31 tablet by [facility] of tablet 00:00: mouth in [place] 00 the Medical morning Branch and 1 tablet in the evening. metoclopram 2022-0 Yes [id number] 10mg Take 1 [facility] HCl 10 8-31 tablet by [facility] of mg tablet 00:00: mouth [place] 00 every 6 Medical (six) Branch hours as needed for Nausea and Vomiting (N/V) or Gastroesop hageal reflux. famotidine 2022-0 Yes [id number] 20mg Take 1 [facility] 20 mg 8-31 tablet by [facility] of tablet 00:00: mouth in [place] 00 the Medical morning Branch and 1 tablet in the evening. metoclopram 2022-0 Yes [id number] 10mg Take 1 [facility] HCl 10 8-31 tablet by [facility] of mg tablet 00:00: mouth [place] 00 every 6 Medical (six) Branch hours as needed for Nausea and Vomiting (N/V) or Gastroesop hageal reflux. famotidine 2022-0 Yes [id number] 20mg Take 1 [facility] 20 mg 8-31 tablet by [facility] of tablet 00:00: mouth in [place] 00 the Medical morning Branch and 1 tablet in the evening. metoclopram 2022-0 Yes [id number] 10mg Take 1 [facility] HCl 10 8-31 tablet by [facility] of mg tablet 00:00: mouth [place] 00 every 6 Medical (six) Branch hours as needed for Nausea and Vomiting (N/V) or Gastroesop hageal reflux. famotidine 2022-0 Yes [id number] 20mg Take 1 [facility] 20 mg 8-31 tablet by [facility] of tablet 00:00: mouth in [place] 00 the Medical morning Branch and 1 tablet in the evening. metoclopram 2022-0 Yes [id number] 10mg Take 1 [facility] HCl 10 8-31 tablet by [facility] of mg tablet 00:00: mouth [place] 00 every 6 Medical (six) Branch hours as needed for Nausea and Vomiting (N/V) or Gastroesop hageal reflux. famotidine 2022-0 Yes [id number] 20mg Take 1 [facility] 20 mg 8-31 tablet by [facility] of tablet 00:00: mouth in [place] 00 the Medical morning Branch and 1 tablet in the evening. metoclopram 2022-0 Yes [id number] 10mg Take 1 [facility] HCl 10 8-31 tablet by [facility] of mg tablet 00:00: mouth [place] 00 every 6 Medical (six) Branch hours as needed for Nausea and Vomiting (N/V) or Gastroesop hageal reflux. famotidine 2022-0 Yes [id number] 20mg Take 1 [facility] 20 mg 8-31 tablet by [facility] of tablet 00:00: mouth in [place] 00 the Medical morning Branch and 1 tablet in the evening. metoclopram 2022-0 Yes [id number] 10mg Take 1 [facility] HCl 10 8-31 tablet by [facility] of mg tablet 00:00: mouth [place] 00 every 6 Medical (six) Branch hours as needed for Nausea and Vomiting (N/V) or Gastroesop hageal reflux. famotidine 2022-0 Yes [id number] 20mg Take 1 [facility] 20 mg 8-31 tablet by [facility] of tablet 00:00: mouth in [place] 00 the Medical morning Branch and 1 tablet in the evening. metoclopram 2022-0 Yes [id number] 10mg Take 1 [facility] HCl 10 8-31 tablet by [facility] of mg tablet 00:00: mouth [place] 00 every 6 Medical (six) Branch hours as needed for Nausea and Vomiting (N/V) or Gastroesop hageal reflux. famotidine 2022-0 Yes [id number] 20mg Take 1 [facility] 20 mg 8-31 tablet by [facility] of tablet 00:00: mouth in [place] 00 the Medical morning Branch and 1 tablet in the evening. metoclopram 2022-0 Yes [id number] 10mg Take 1 [facility] HCl 10 8-31 tablet by [facility] of mg tablet 00:00: mouth [place] 00 every 6 Medical (six) Branch hours as needed for Nausea and Vomiting (N/V) or Gastroesop hageal reflux. famotidine 2022-0 Yes [id number] 20mg Take 1 [facility] 20 mg 8-31 tablet by [facility] of tablet 00:00: mouth in [place] 00 the Medical morning Branch and 1 tablet in the evening. metoclopram 2022-0 Yes [id number] 10mg Take 1 [facility] HCl 10 8-31 tablet by [facility] of mg tablet 00:00: mouth [place] 00 every 6 Medical (six) Branch hours as needed for Nausea and Vomiting (N/V) or Gastroesop hageal reflux. famotidine 2022-0 Yes [id number] 20mg Take 1 [facility] 20 mg 8-31 tablet by [facility] of tablet 00:00: mouth in [place] 00 the Medical morning Branch and 1 tablet in the evening. metoclopram 2022-0 Yes [id number] 10mg Take 1 [facility] HCl 10 8-31 tablet by [facility] of mg tablet 00:00: mouth [place] 00 every 6 Medical (six) Branch hours as needed for Nausea and Vomiting (N/V) or Gastroesop hageal reflux. famotidine 2022-0 Yes [id number] 20mg Take 1 [facility] 20 mg 8-31 tablet by [facility] of tablet 00:00: mouth in [place] 00 the Medical morning Branch and 1 tablet in the evening. metoclopram 2022-0 Yes [id number] 10mg Take 1 [facility] HCl 10 8-31 tablet by [facility] of mg tablet 00:00: mouth [place] 00 every 6 Medical (six) Branch hours as needed for Nausea and Vomiting (N/V) or Gastroesop hageal reflux. famotidine 2022-0 Yes [id number] 20mg Take 1 [facility] 20 mg 8-31 tablet by [facility] of tablet 00:00: mouth in [place] 00 the Medical morning Branch and 1 tablet in the evening. metoclopram 2022-0 Yes [id number] 10mg Take 1 [facility] HCl 10 8-31 tablet by [facility] of mg tablet 00:00: mouth [place] 00 every 6 Medical (six) Branch hours as needed for Nausea and Vomiting (N/V) or Gastroesop hageal reflux. famotidine 2022-0 Yes [id number] 20mg Take 1 [facility] 20 mg 8-31 tablet by [facility] of tablet 00:00: mouth in [place] 00 the Medical morning Branch and 1 tablet in the evening. metoclopram 2022-0 Yes [id number] 10mg Take 1 [facility] HCl 10 8-31 tablet by [facility] of mg tablet 00:00: mouth [place] 00 every 6 Medical (six) Branch hours as needed for Nausea and Vomiting (N/V) or Gastroesop hageal reflux. famotidine 2022-0 Yes [id number] 20mg Take 1 [facility] 20 mg 8-31 tablet by [facility] of tablet 00:00: mouth in [place] 00 the Medical morning Branch and 1 tablet in the evening. metoclopram 2022-0 Yes [id number] 10mg Take 1 [facility] HCl 10 8-31 tablet by [facility] of mg tablet 00:00: mouth [place] 00 every 6 Medical (six) Branch hours as needed for Nausea and Vomiting (N/V) or Gastroesop hageal reflux. famotidine 2022-0 Yes [id number] 20mg Take 1 [facility] 20 mg 8-31 tablet by [facility] of tablet 00:00: mouth in [place] 00 the Medical morning Branch and 1 tablet in the evening. metoclopram 2022-0 Yes [id number] 10mg Take 1 [facility] HCl 10 8-31 tablet by [facility] of mg tablet 00:00: mouth [place] 00 every 6 Medical (six) Branch hours as needed for Nausea and Vomiting (N/V) or Gastroesop hageal reflux. famotidine 2022-0 Yes [id number] 20mg Take 1 [facility] 20 mg 8-31 tablet by [facility] of tablet 00:00: mouth in [place] 00 the Medical morning Branch and 1 tablet in the evening. metoclopram 2022-0 Yes [id number] 10mg Take 1 [facility] HCl 10 8-31 tablet by [facility] of mg tablet 00:00: mouth [place] 00 every 6 Medical (six) Branch hours as needed for Nausea and Vomiting (N/V) or Gastroesop hageal reflux. famotidine 2022-0 Yes [id number] 20mg Take 1 [facility] 20 mg 8-31 tablet by [facility] of tablet 00:00: mouth in [place] 00 the Medical morning Branch and 1 tablet in the evening. metoclopram 2022-0 Yes [id number] 10mg Take 1 [facility] HCl 10 8-31 tablet by [facility] of mg tablet 00:00: mouth [place] 00 every 6 Medical (six) Branch hours as needed for Nausea and Vomiting (N/V) or Gastroesop hageal reflux. famotidine 2022-0 Yes [id number] 20mg Take 1 [facility] 20 mg 8-31 tablet by [facility] of tablet 00:00: mouth in [place] 00 the Medical morning Branch and 1 tablet in the evening. metoclopram 2022-0 Yes [id number] 10mg Take 1 [facility] HCl 10 8-31 tablet by [facility] of mg tablet 00:00: mouth [place] 00 every 6 Medical (six) Branch hours as needed for Nausea and Vomiting (N/V) or Gastroesop hageal reflux. famotidine 2022-0 Yes [id number] 20mg Take 1 [facility] 20 mg 8-31 tablet by [facility] of tablet 00:00: mouth in [place] 00 the Medical morning Branch and 1 tablet in the evening. metoclopram 2022-0 Yes [id number] 10mg Take 1 [facility] HCl 10 8-31 tablet by [facility] of mg tablet 00:00: mouth [place] 00 every 6 Medical (six) Branch hours as needed for Nausea and Vomiting (N/V) or Gastroesop hageal reflux. famotidine 2022-0 Yes [id number] 20mg Take 1 [facility] 20 mg 8-31 tablet by [facility] of tablet 00:00: mouth in [place] 00 the Medical morning Branch and 1 tablet in the evening. metoclopram 2022-0 Yes [id number] 10mg Take 1 [facility] HCl 10 8-31 tablet by [facility] of mg tablet 00:00: mouth [place] 00 every 6 Medical (six) Branch hours as needed for Nausea and Vomiting (N/V) or Gastroesop hageal reflux. famotidine 2022-0 Yes [id number] 20mg Take 1 [facility] 20 mg 8-31 tablet by [facility] of tablet 00:00: mouth in [place] 00 the Medical morning Branch and 1 tablet in the evening. metoclopram 2022-0 Yes [id number] 10mg Take 1 [facility] HCl 10 8-31 tablet by [facility] of mg tablet 00:00: mouth [place] 00 every 6 Medical (six) Branch hours as needed for Nausea and Vomiting (N/V) or Gastroesop hageal reflux. famotidine 2022-0 Yes [id number] 20mg Take 1 [facility] 20 mg 8-31 tablet by [facility] of tablet 00:00: mouth in [place] 00 the Medical morning Branch and 1 tablet in the evening. metoclopram 2022-0 Yes [id number] 10mg Take 1 [facility] HCl 10 8-31 tablet by [facility] of mg tablet 00:00: mouth [place] [address] every 6 Medical (six) Branch hours as needed for Nausea and Vomiting (N/V) or Gastroesop hageal reflux. famotidine 2022-0 Yes [id number] 20mg Take 1 [facility] 20 mg 8-31 tablet by [facility] of tablet 00:00: mouth in [place] 00 the Medical morning Branch and 1 tablet in the evening. metoclopram 2022-0 Yes [id number] 10mg Take 1 [facility] HCl 10 8-31 tablet by [facility] of mg tablet 00:00: mouth [place] 00 every 6 Medical (six) Branch hours as needed for Nausea and Vomiting (N/V) or Gastroesop hageal reflux. famotidine 2022-0 Yes [id number] 20mg Take 1 [facility] 20 mg 8-31 tablet by [facility] tablet 00:00: mouth in [place] 00 the Medical morning Branch and 1 tablet in the evening. metoclopram 2022-0 Yes [id number] 10mg Take 1 [facility] 10 8-31 tablet by [facility] mg tablet 00:00: mouth [place] 00 every 6 Medical (six) Branch hours as needed for Nausea and Vomiting (N/V) or Gastroesop hageal reflux. famotidine 2022-0 Yes [id number] 20mg Take 1 [facility] 20 mg 8-31 tablet by [facility] tablet 00:00: mouth in [place] 00 the Medical morning Branch and 1 tablet in the evening. metoclopram 2022-0 Yes [id number] 10mg Take 1 [facility] HCl 10 8-31 tablet by [facility] mg tablet 00:00: mouth [place] 00 every 6 Medical (six) Branch hours as needed for Nausea and Vomiting (N/V) or Gastroesop hageal reflux. famotidine 2022-0 Yes [id number] 20mg Take 1 [facility] 20 mg 8-31 tablet by [facility] tablet 00:00: mouth in [place] 00 the Medical morning Branch and 1 tablet in the evening. metoclopram 2022-0 Yes [id number] 10mg Take 1 [facility] 10 8-31 tablet by [facility] mg tablet 00:00: mouth [place] 00 every 6 Medical (six) Branch hours as needed for Nausea and Vomiting (N/V) or Gastroesop hageal reflux. famotidine 2022-0 Yes [id number] 20mg Take 1 [facility] 20 mg 8-31 tablet by [facility] tablet 00:00: mouth in [place] 00 the Medical morning Branch and 1 tablet in the evening. metoclopram 2022-0 Yes [id number] 10mg Take 1 [facility] 10 8-31 tablet by [facility] mg tablet 00:00: mouth [place] [address] every 6 Medical (six) Branch hours as needed for Nausea and Vomiting (N/V) or Gastroesop hageal reflux. famotidine 2022-0 Yes [id number] 20mg Take 1 [facility] 20 mg 8-31 tablet by [facility] tablet 00:00: mouth in [place] 00 the Medical morning Branch and 1 tablet in the evening. metoclopram 2022-0 Yes [id number] 10mg Take 1 [facility] 10 8-31 tablet by [facility] mg tablet 00:00: mouth [place] 00 every 6 Medical (six) Branch hours as needed for Nausea and Vomiting (N/V) or Gastroesop hageal reflux. famotidine 2022-0 Yes [id number] 20mg Take 1 [facility] 20 mg 8-31 tablet by [facility] tablet 00:00: mouth in [place] [address] the Medical morning Branch and 1 tablet in the evening. metoclopram 2022-0 Yes [id number] 10mg Take 1 [facility] 10 8-31 tablet by [facility] mg tablet 00:00: mouth [place] 00 every 6 Medical (six) Branch hours as needed for Nausea and Vomiting (N/V) or Gastroesop hageal reflux. famotidine 2022-0 Yes [id number] 20mg Take 1 [facility] 20 mg 8-31 tablet by [facility] tablet 00:00: mouth in [place] 00 the Medical morning Branch and 1 tablet in the evening. metoclopram 2022-0 Yes [id number] 10mg Take 1 [facility] 10 8-31 tablet by [facility] mg tablet 00:00: mouth [place] 00 every 6 Medical (six) Branch hours as needed for Nausea and Vomiting (N/V) or Gastroesop hageal reflux. famotidine 2022-0 Yes [id number] 20mg Take 1 [facility] 20 mg 8-31 tablet by [facility] tablet 00:00: mouth in [place] 00 the Medical morning Branch and 1 tablet in the evening. metoclopram 2022-0 Yes [id number] 10mg Take 1 [facility] 10 8-31 tablet by [facility] mg tablet 00:00: mouth [place] 00 every 6 Medical (six) Branch hours as needed for Nausea and Vomiting (N/V) or Gastroesop hageal reflux. famotidine 2022-0 Yes [id number] 20mg Take 1 [facility] 20 mg 8-31 tablet by [facility] tablet 00:00: mouth in [place] 00 the Medical morning Branch and 1 tablet in the evening. metoclopram 2022-0 Yes [id number] 10mg Take 1 [facility] 10 8-31 tablet by [facility] mg tablet 00:00: mouth [place] 00 every 6 Medical (six) Branch hours as needed for Nausea and Vomiting (N/V) or Gastroesop hageal reflux. famotidine 2022-0 Yes [id number] 20mg Take 1 [facility] 20 mg 8-31 tablet by [facility] tablet 00:00: mouth in [place] 00 the Medical morning Branch and 1 tablet in the evening. metoclopram 2022-0 Yes [id number] 10mg Take 1 [facility] HCl 10 8-31 tablet by [facility] mg tablet 00:00: mouth [place] 00 every 6 Medical (six) Branch hours as needed for Nausea and Vomiting (N/V) or Gastroesop hageal reflux. famotidine 2022-0 Yes [id number] 20mg Take 1 [facility] 20 mg 8-31 tablet by [facility] tablet 00:00: mouth in [place] 00 the Medical morning Branch and 1 tablet in the evening. metoclopram 2022-0 Yes [id number] 10mg Take 1 [facility] 10 8-31 tablet by [facility] mg tablet 00:00: mouth [place] 00 every 6 Medical (six) Branch hours as needed for Nausea and Vomiting (N/V) or Gastroesop hageal reflux. famotidine 2022-0 Yes [id number] 20mg Take 1 [facility] 20 mg 8-31 tablet by [facility] tablet 00:00: mouth in [place] 00 the Medical morning Branch and 1 tablet in the evening. metoclopram 2022-0 Yes [id number] 10mg Take 1 [facility] 10 8-31 tablet by [facility] mg tablet 00:00: mouth [place] 00 every 6 Medical (six) Branch hours as needed for Nausea and Vomiting (N/V) or Gastroesop hageal reflux. famotidine 2022-0 Yes [id number] 20mg Take 1 [facility] 20 mg 8-31 tablet by [facility] tablet 00:00: mouth in [place] 00 the Medical morning Branch and 1 tablet in the evening. metoclopram 2022-0 Yes [id number] 10mg Take 1 [facility] 10 8-31 tablet by [facility] mg tablet 00:00: mouth [place] 00 every 6 Medical (six) Branch hours as needed for Nausea and Vomiting (N/V) or Gastroesop hageal reflux. famotidine 2022-0 Yes [id number] 20mg Take 1 [facility] 20 mg 8-31 tablet by [facility] tablet 00:00: mouth in [place] 00 the Medical morning Branch and 1 tablet in the evening. metoclopram 2022-0 Yes [id number] 10mg Take 1 [facility] HCl 10 8-31 tablet by [facility] mg tablet 00:00: mouth [place] 00 every 6 Medical (six) Branch hours as needed for Nausea and Vomiting (N/V) or Gastroesop hageal reflux. famotidine 2022-0 Yes [id number] 20mg Take 1 [facility] 20 mg 8-31 tablet by [facility] tablet 00:00: mouth in [place] 00 the Medical morning Branch and 1 tablet in the evening. metoclopram 2022-0 Yes [id number] 10mg Take 1 [facility] 10 8-31 tablet by [facility] mg tablet 00:00: mouth [place] 00 every 6 Medical (six) Branch hours as needed for Nausea and Vomiting (N/V) or Gastroesop hageal reflux. famotidine 2022-0 Yes [id number] 20mg Take 1 [facility] 20 mg 8-31 tablet by [facility] tablet 00:00: mouth in [place] 00 the Medical morning Branch and 1 tablet in the evening. metoclopram 2022-0 Yes [id number] 10mg Take 1 [facility] 10 8-31 tablet by [facility] mg tablet 00:00: mouth [place] 00 every 6 Medical (six) Branch hours as needed for Nausea and Vomiting (N/V) or Gastroesop hageal reflux. famotidine 2022-0 Yes [id number] 20mg Take 1 [facility] 20 mg 8-31 tablet by [facility] tablet 00:00: mouth in [place] 00 the Medical morning Branch and 1 tablet in the evening. metoclopram 2022-0 Yes [id number] 10mg Take 1 [facility] HCl 10 8-31 tablet by [facility] mg tablet 00:00: mouth [place] 00 every 6 Medical (six) Branch hours as needed for Nausea and Vomiting (N/V) or Gastroesop hageal reflux. famotidine 2022-0 Yes [id number] 20mg Take 1 [facility] 20 mg 8-31 tablet by [facility] tablet 00:00: mouth in [place] 00 the Medical morning Branch and 1 tablet in the evening. metoclopram 2022-0 Yes [id number] 10mg Take 1 [facility] 10 8-31 tablet by [facility] mg tablet 00:00: mouth [place] 00 every 6 Medical (six) Branch hours as needed for Nausea and Vomiting (N/V) or Gastroesop hageal reflux. famotidine 2022-0 Yes [id number] 20mg Take 1 [facility] 20 mg 8-31 tablet by [facility] tablet 00:00: mouth in [place] 00 the Medical morning Branch and 1 tablet in the evening. metoclopram 2022-0 Yes [id number] 10mg Take 1 [facility] 10 8-31 tablet by [facility] mg tablet 00:00: mouth [place] 00 every 6 Medical (six) Branch hours as needed for Nausea and Vomiting (N/V) or Gastroesop hageal reflux. famotidine 2022-0 Yes [id number] 20mg Take 1 [facility] 20 mg 8-31 tablet by [facility] tablet 00:00: mouth in [place] 00 the Medical morning Branch and 1 tablet in the evening. metoclopram 2022-0 Yes [id number] 10mg Take 1 [facility] 10 8-31 tablet by [facility] mg tablet 00:00: mouth [place] 00 every 6 Medical (six) Branch hours as needed for Nausea and Vomiting (N/V) or Gastroesop hageal reflux. famotidine 2022-0 Yes [id number] 20mg Take 1 [facility] 20 mg 8-31 tablet by [facility] tablet 00:00: mouth in [place] 00 the Medical morning Branch and 1 tablet in the evening. metoclopram 2022-0 Yes [id number] 10mg Take 1 [facility] 10 8-31 tablet by [facility] mg tablet 00:00: mouth [place] 00 every 6 Medical (six) Branch hours as needed for Nausea and Vomiting (N/V) or Gastroesop hageal reflux. famotidine 2022-0 Yes [id number] 20mg Take 1 [facility] 20 mg 8-31 tablet by [facility] tablet 00:00: mouth in [place] 00 the Medical morning Branch and 1 tablet in the evening. metoclopram 2022-0 Yes [id number] 10mg Take 1 [facility] 10 8-31 tablet by [facility] mg tablet 00:00: mouth [place] 00 every 6 Medical (six) Branch hours as needed for Nausea and Vomiting (N/V) or Gastroesop hageal reflux. famotidine 2022-0 Yes [id number] 20mg Take 1 [facility] 20 mg 8-31 tablet by [facility] tablet 00:00: mouth in [place] 00 the Medical morning Branch and 1 tablet in the evening. metoclopram 2022-0 Yes [id number] 10mg Take 1 [facility] 10 8-31 tablet by [facility] mg tablet 00:00: mouth [place] 00 every 6 Medical (six) Branch hours as needed for Nausea and Vomiting (N/V) or Gastroesop hageal reflux. famotidine 2022-0 Yes [id number] 20mg Take 1 [facility] 20 mg 8-31 tablet by [facility] tablet 00:00: mouth in [place] 00 the Medical morning Branch and 1 tablet in the evening. metoclopram 2022-0 Yes [id number] 10mg Take 1 [facility] 10 8-31 tablet by [facility] mg tablet 00:00: mouth [place] 00 every 6 Medical (six) Branch hours as needed for Nausea and Vomiting (N/V) or Gastroesop hageal reflux. famotidine 2022-0 Yes [id number] 20mg Take 1 [facility] 20 mg 8-31 tablet by [facility] tablet 00:00: mouth in [place] 00 the Medical morning Branch and 1 tablet in the evening. metoclopram 2022-0 Yes [id number] 10mg Take 1 [facility] 10 8-31 tablet by [facility] mg tablet 00:00: mouth [place] 00 every 6 Medical (six) Branch hours as needed for Nausea and Vomiting (N/V) or Gastroesop hageal reflux. famotidine 2022-0 Yes [id number] 20mg Take 1 [facility] 20 mg 8-31 tablet by [facility] tablet 00:00: mouth in [place] 00 the Medical morning Branch and 1 tablet in the evening. metoclopram 2022-0 Yes [id number] 10mg Take 1 [facility] 10 8-31 tablet by [facility] mg tablet 00:00: mouth [place] 00 every 6 Medical (six) Branch hours as needed for Nausea and Vomiting (N/V) or Gastroesop hageal reflux. famotidine 2022-0 Yes [id number] 20mg Take 1 [facility] 20 mg 8-31 tablet by [facility] tablet 00:00: mouth in [place] 00 the Medical morning Branch and 1 tablet in the evening. metoclopram 2022-0 Yes [id number] 10mg Take 1 [facility] 10 8-31 tablet by [facility] mg tablet 00:00: mouth [place] 00 every 6 Medical (six) Branch hours as needed for Nausea and Vomiting (N/V) or Gastroesop hageal reflux. famotidine 2022-0 Yes [id number] 20mg Take 1 [facility] 20 mg 8-31 tablet by [facility] tablet 00:00: mouth in [place] 00 the Medical morning Branch and 1 tablet in the evening. metoclopram 2022-0 Yes [id number] 10mg Take 1 [facility] 10 8-31 tablet by [facility] mg tablet 00:00: mouth [place] 00 every 6 Medical (six) Branch hours as needed for Nausea and Vomiting (N/V) or Gastroesop hageal reflux. famotidine 2022-0 Yes [id number] 20mg Take 1 [facility] 20 mg 8-31 tablet by [facility] tablet 00:00: mouth in [place] 00 the Medical morning Branch and 1 tablet in the evening. metoclopram 2022-0 Yes [id number] 10mg Take 1 [facility] 10 8-31 tablet by [facility] mg tablet 00:00: mouth [place] 00 every 6 Medical (six) Branch hours as needed for Nausea and Vomiting (N/V) or Gastroesop hageal reflux. famotidine 2022-0 Yes [id number] 20mg Take 1 [facility] 20 mg 8-31 tablet by [facility] tablet 00:00: mouth in [place] 00 the Medical morning Branch and 1 tablet in the evening. metoclopram 2022-0 Yes [id number] 10mg Take 1 [facility] 10 8-31 tablet by [facility] mg tablet 00:00: mouth [place] [address] every 6 Medical (six) Branch hours as needed for Nausea and Vomiting (N/V) or Gastroesop hageal reflux. famotidine 2022-0 Yes [id number] 20mg Take 1 [facility] 20 mg 8-31 tablet by [facility] tablet 00:00: mouth in [place] 00 the Medical morning Branch and 1 tablet in the evening. metoclopram 2022-0 Yes [id number] 10mg Take 1 [facility] 10 8-31 tablet by [facility] mg tablet 00:00: mouth [place] 00 every 6 Medical (six) Branch hours as needed for Nausea and Vomiting (N/V) or Gastroesop hageal reflux. famotidine 2022-0 Yes [id number] 20mg Take 1 [facility] 20 mg 8-31 tablet by [facility] tablet 00:00: mouth in [place] 00 the Medical morning Branch and 1 tablet in the evening. metoclopram 2022-0 Yes [id number] 10mg Take 1 [facility] 10 8-31 tablet by [facility] mg tablet 00:00: mouth [place] 00 every 6 Medical (six) Branch hours as needed for Nausea and Vomiting (N/V) or Gastroesop hageal reflux. famotidine 2022-0 Yes [id number] 20mg Take 1 [facility] 20 mg 8-31 tablet by [facility] tablet 00:00: mouth in [place] 00 the Medical morning Branch and 1 tablet in the evening. metoclopram 2022-0 Yes [id number] 10mg Take 1 [facility] 10 8-31 tablet by [facility] mg tablet 00:00: mouth [place] 00 every 6 Medical (six) Branch hours as needed for Nausea and Vomiting (N/V) or Gastroesop hageal reflux. famotidine 2022-0 Yes [id number] 20mg Take 1 [facility] 20 mg 8-31 tablet by [facility] tablet 00:00: mouth in [place] 00 the Medical morning Branch and 1 tablet in the evening. metoclopram 2022-0 Yes [id number] 10mg Take 1 [facility] 10 8-31 tablet by [facility] mg tablet 00:00: mouth [place] 00 every 6 Medical (six) Branch hours as needed for Nausea and Vomiting (N/V) or Gastroesop hageal reflux. famotidine 2022-0 Yes [id number] 20mg Take 1 [facility] 20 mg 8-31 tablet by [facility] tablet 00:00: mouth in [place] 00 the Medical morning Branch and 1 tablet in the evening. metoclopram 2022-0 Yes [id number] 10mg Take 1 [facility] HCl 10 8-31 tablet by [facility] mg tablet 00:00: mouth [place] [address] every 6 Medical (six) Branch hours as needed for Nausea and Vomiting (N/V) or Gastroesop hageal reflux. famotidine 2022-0 Yes [id number] 20mg Take 1 [facility] 20 mg 8-31 tablet by [facility] tablet 00:00: mouth in [place] 00 the Medical morning Branch and 1 tablet in the evening. metoclopram 2022-0 Yes [id number] 10mg Take 1 [facility] 10 8-31 tablet by [facility] mg tablet 00:00: mouth [place] 00 every 6 Medical (six) Branch hours as needed for Nausea and Vomiting (N/V) or Gastroesop hageal reflux. famotidine 2022-0 Yes [id number] 20mg Take 1 [facility] 20 mg 8-31 tablet by [facility] tablet 00:00: mouth in [place] 00 the Medical morning Branch and 1 tablet in the evening. metoclopram 2022-0 Yes [id number] 10mg Take 1 [facility] 10 8-31 tablet by [facility] mg tablet 00:00: mouth [place] 00 every 6 Medical (six) Branch hours as needed for Nausea and Vomiting (N/V) or Gastroesop hageal reflux. famotidine 2022-0 Yes [id number] 20mg Take 1 [facility] 20 mg 8-31 tablet by [facility] tablet 00:00: mouth in [place] 00 the Medical morning Branch and 1 tablet in the evening. metoclopram 2022-0 Yes [id number] 10mg Take 1 [facility] 10 8-31 tablet by [facility] mg tablet 00:00: mouth [place] 00 every 6 Medical (six) Branch hours as needed for Nausea and Vomiting (N/V) or Gastroesop hageal reflux. famotidine 2022-0 Yes [id number] 20mg Take 1 [facility] 20 mg 8-31 tablet by [facility] tablet 00:00: mouth in [place] 00 the Medical morning Branch and 1 tablet in the evening. metoclopram 2022-0 Yes [id number] 10mg Take 1 [facility] 10 8-31 tablet by [facility] mg tablet 00:00: mouth [place] 00 every 6 Medical (six) Branch hours as needed for Nausea and Vomiting (N/V) or Gastroesop hageal reflux. famotidine 2022-0 Yes [id number] 20mg Take 1 [facility] 20 mg 8-31 tablet by [facility] tablet 00:00: mouth in [place] 00 the Medical morning Branch and 1 tablet in the evening. metoclopram 2022-0 Yes [id number] 10mg Take 1 [facility] 10 8-31 tablet by [facility] mg tablet 00:00: mouth [place] 00 every 6 Medical (six) Branch hours as needed for Nausea and Vomiting (N/V) or Gastroesop hageal reflux. famotidine 2022-0 Yes [id number] 20mg Take 1 [facility] 20 mg 8-31 tablet by [facility] tablet 00:00: mouth in [place] 00 the Medical morning Branch and 1 tablet in the evening. metoclopram 2022-0 Yes [id number] 10mg Take 1 [facility] HCl 10 8-31 tablet by [facility] mg tablet 00:00: mouth [place] 00 every 6 Medical (six) Branch hours as needed for Nausea and Vomiting (N/V) or Gastroesop hageal reflux. famotidine 2022-0 Yes [id number] 20mg Take 1 [facility] 20 mg 8-31 tablet by [facility] tablet 00:00: mouth in [place] 00 the Medical morning Branch and 1 tablet in the evening. metoclopram 2022-0 Yes [id number] 10mg Take 1 [facility] HCl 10 8-31 tablet by [facility] mg tablet 00:00: mouth [place] 00 every 6 Medical (six) Branch hours as needed for Nausea and Vomiting (N/V) or Gastroesop hageal reflux. famotidine 2022-0 Yes [id number] 20mg Take 1 [facility] 20 mg 8-31 tablet by [facility] tablet 00:00: mouth in [place] 00 the Medical morning Branch and 1 tablet in the evening. metoclopram 2022-0 Yes [id number] 10mg Take 1 [facility] 10 8-31 tablet by [facility] mg tablet 00:00: mouth [place] 00 every 6 Medical (six) Branch hours as needed for Nausea and Vomiting (N/V) or Gastroesop hageal reflux. famotidine 2022-0 Yes [id number] 20mg Take 1 [facility] 20 mg 8-31 tablet by [facility] tablet 00:00: mouth in [place] 00 the Medical morning Branch and 1 tablet in the evening. metoclopram 2022-0 Yes [id number] 10mg Take 1 [facility] HCl 10 8-31 tablet by [facility] mg tablet 00:00: mouth [place] 00 every 6 Medical (six) Branch hours as needed for Nausea and Vomiting (N/V) or Gastroesop hageal reflux. famotidine 2022-0 Yes [id number] 20mg Take 1 [facility] 20 mg 8-31 tablet by [facility] tablet 00:00: mouth in [place] 00 the Medical morning Branch and 1 tablet in the evening. metoclopram 2022-0 2023- No [id number] 10mg Take 1 [facility] HCl 10 8-31 02-10 tablet by [facility] mg tablet 00:00: 00:00 mouth [place] 00 :00 every 6 Medical (six) Branch hours as needed for Nausea and Vomiting (N/V) or Gastroesop hageal reflux. famotidine 2022-0 2023- No [id number] 20mg Take 1 [facility] 20 mg 8-31 02-10 tablet by [facility] tablet 00:00: 00:00 mouth in [place] 00 :00 the Medical morning Branch and 1 tablet in the evening. metoclopram 2021-2022- No [id number] 10mg Take 1 [facility] HCl 10 8- 02-10 tablet by [facility] mg tablet 00:00: 00:00 mouth [place] 00 :00 every 6 Medical (six) Branch hours as needed for Nausea and Vomiting (N/V) or Gastroesop hageal reflux. famotidine 2022- No [id number] 20mg Take 1 [facility] 20 mg 8- 02-10 tablet by [facility] tablet 00:00: 00:00 mouth in [place] 00 :00 the Medical morning Branch and 1 tablet in the evening. metoclopram 2021-2022- No [id number] 10mg Take 1 [facility] HCl 10 8- 02-10 tablet by [facility] mg tablet 00:00: 00:00 mouth [place] 00 :00 every 6 Medical (six) Branch hours as needed for Nausea and Vomiting (N/V) or Gastroesop hageal reflux. famotidine 2022- No [id number] 20mg Take 1 [facility] 20 mg 8-31 02-10 tablet by [facility] tablet 00:00: 00:00 mouth in [place] 00 :00 the Medical morning Branch and 1 tablet in the evening. doxylamine 2021-0 Yes [id number] 25mg Take 1 [facility] 25 mg 7-28 tablet by [facility] tablet 00:00: mouth at [place] [address] bedtime. Medical Branch doxylamine 2021-0 Yes [id number] 25mg Take 1 [facility] 25 mg 7-28 tablet by [facility] tablet 00:00: mouth at [place] [address] bedtime. Medical Branch doxylamine 2021-0 Yes [id number] 25mg Take 1 [facility] 25 mg 7-28 tablet by [facility] tablet 00:00: mouth at [place] [address] bedtime. Medical Branch doxylamine 2021-0 Yes [id number] 25mg Take 1 [facility] 25 mg 7-28 tablet by [facility] tablet 00:00: mouth at [place] [address] bedtime. Medical Branch doxylamine 2021-0 Yes [id number] 25mg Take 1 [facility] 25 mg 7-28 tablet by [facility] tablet 00:00: mouth at [place] [address] bedtime. Medical Branch doxylamine 2021-0 Yes [id number] 25mg Take 1 [facility] 25 mg 7-28 tablet by [facility] tablet 00:00: mouth at [place] [address] bedtime. Medical Branch doxylamine 0 Yes [id number] 25mg Take 1 [facility] 25 mg 7-28 tablet by [facility] tablet 00:00: mouth at [place] [address] bedtime. Medical Branch doxylamine Yes [id number] 25mg Take 1 [facility] 25 mg 7-28 tablet by [facility] tablet 00:00: mouth at [place] [address] bedtime. Medical Branch doxylamine Yes [id number] 25mg Take 1 [facility] 25 mg 7-28 tablet by [facility] tablet 00:00: mouth at [place] [address] bedtime. Medical Branch doxylamine Yes [id number] 25mg Take 1 [facility] 25 mg 7-28 tablet by [facility] tablet 00:00: mouth at [place] [address] bedtime. [facility] Branch doxylamine Yes [id number] 25mg Take 1 [facility] 25 mg 7-28 tablet by [facility] tablet 00:00: mouth at [place] [address] bedtime. [facility] Branch doxylamine Yes [id number] 25mg Take 1 [facility] 25 mg 7-28 tablet by [facility] tablet 00:00: mouth at [place] [address] bedtime. [facility] Branch doxylamine Yes [id number] 25mg Take 1 [facility] 25 mg 7-28 tablet by [facility] tablet 00:00: mouth at [place] [address] bedtime. Medical Branch doxylamine Yes [id number] 25mg Take 1 [facility] 25 mg 7-28 tablet by [facility] tablet 00:00: mouth at [place] [address] bedtime. [facility] Branch doxylamine Yes [id number] 25mg Take 1 [facility] 25 mg 7-28 tablet by [facility] tablet 00:00: mouth at [place] [address] bedtime. [facility] Branch doxylamine 0 Yes [id number] 25mg Take 1 [facility] 25 mg 7-28 tablet by [facility] tablet 00:00: mouth at [place] [address] bedtime. Medical Branch doxylamine 0 Yes [id number] 25mg Take 1 [facility] 25 mg 7-28 tablet by [facility] tablet 00:00: mouth at [place] [address] bedtime. [facility] Branch doxylamine Yes [id number] 25mg Take 1 [facility] 25 mg 7-28 tablet by [facility] tablet 00:00: mouth at [place] [address] bedtime. Medical Branch doxylamine 2021-0 Yes [id number] 25mg Take 1 [facility] 25 mg 7-28 tablet by [facility] tablet 00:00: mouth at [place] [address] bedtime. [facility] Branch doxylamine 2021-0 Yes [id number] 25mg Take 1 [facility] 25 mg 7-28 tablet by [facility] tablet 00:00: mouth at [place] [address] bedtime. Medical Branch doxylamine 2021-0 Yes [id number] 25mg Take 1 [facility] 25 mg 7-28 tablet by [facility] tablet 00:00: mouth at [place] [address] bedtime. Medical Branch doxylamine 2021-0 Yes [id number] 25mg Take 1 [facility] 25 mg 7-28 tablet by [facility] of tablet 00:00: mouth at [place] [address] bedtime. Medical Branch doxylamine 2021-0 Yes [id number] 25mg Take 1 [facility] 25 mg 7-28 tablet by [facility] tablet 00:00: mouth at [place] [address] bedtime. [facility] Branch doxylamine 0 Yes [id number] 25mg Take 1 [facility] 25 mg 7-28 tablet by [facility] of tablet 00:00: mouth at [place] [address] bedtime. Medical Branch doxylamine 2021-0 Yes [id number] 25mg Take 1 [facility] 25 mg 7-28 tablet by [facility] tablet 00:00: mouth at [place] [address] bedtime. [facility] Branch doxylamine 2021-0 Yes [id number] 25mg Take 1 [facility] 25 mg 7-28 tablet by [facility] tablet 00:00: mouth at [place] [address] bedtime. [facility] Branch doxylamine 2021-0 Yes [id number] 25mg Take 1 [facility] 25 mg 7-28 tablet by [facility] tablet 00:00: mouth at [place] [address] bedtime. [facility] Branch doxylamine 2021-0 Yes [id number] 25mg Take 1 [facility] 25 mg 7-28 tablet by [facility] of tablet 00:00: mouth at [place] [address] bedtime. Medical Branch doxylamine 2021-0 Yes [id number] 25mg Take 1 [facility] 25 mg 7-28 tablet by [facility] of tablet 00:00: mouth at [place] [address] bedtime. Medical Branch doxylamine 2021-0 Yes [id number] 25mg Take 1 [facility] 25 mg 7-28 tablet by [facility] of tablet 00:00: mouth at [place] [address] bedtime. [facility] doxylamine Yes [id number] 25mg Take 1 [facility] 25 mg 7-28 tablet by [facility] of tablet 00:00: mouth at [place] [address] bedtime. [facility] doxylamine Yes [id number] 25mg Take 1 [facility] 25 mg 7-28 tablet by [facility] of tablet 00:00: mouth at [place] [address] bedtime. [facility] doxylamine Yes [id number] 25mg Take 1 [facility] 25 mg 7-28 tablet by [facility] of tablet 00:00: mouth at [place] [address] bedtime. [facility] doxylamine 2021- No [id number] 25mg Take 1 [facility] 25 mg 7-28 10-21 tablet by [facility] of tablet 00:00: 00:00 mouth at [place] 00 :00 bedtime. [facility] doxylamine 2021- No [id number] 25mg Take 1 [facility] 25 mg 7-28 10-21 tablet by ity of tablet 00:00: 00:00 mouth at [place] 00 :00 bedtime. [facility] doxylamine 2021- No [id number] 25mg Take 1 [facility] 25 mg 7-28 10-21 tablet by ity of tablet 00:00: 00:00 mouth at [place] 00 :00 bedtime. [facility] doxylamine 2021- No [id number] 25mg Take 1 [facility] 25 mg 7-28 10-21 tablet by ity of tablet 00:00: 00:00 mouth at [place] 00 :00 bedtime. [facility] doxylamine- Yes [id number] Doxylamine [facility] pyridoxine, 02-07 10 ity of [...] mg (4 tablets) per day). albuterol Yes [id number] 2{puff} Inhale 2 [facility] 90 7-08 Puffs ity of mcg/actuati 00:00: every 6 [facility] as on inhaler 00 (six) Medical hours as Branch needed for Shortness of Breath. doxylamine- Yes [id number] Doxylamine [facility] pyridoxine, 02-07 10 ity of [...] mg (4 tablets) per day). albuterol Yes [id number] 2{puff} Inhale 2 [facility] 90 7-08 Puffs ity of mcg/actuati 00:00: every 6 [facility] as on inhaler 00 (six) Medical hours as Branch needed for Shortness of Breath. doxylamine- Yes [id number] Doxylamine [facility] pyridoxine, 02-07 10 ity of [...] mg (4 tablets) per day). albuterol Yes [id number] 2{puff} Inhale 2 [facility] 90 7-08 Puffs ity of mcg/actuati 00:00: every 6 [facility] as on inhaler 00 (six) Medical hours as Branch needed for Shortness of Breath. doxylamine- Yes [id number] Doxylamine [facility] pyridoxine, 02-07 10 ity of [...] mg (4 tablets) per day). albuterol Yes [id number] 2{puff} Inhale 2 [facility] 90 7-08 Puffs ity of mcg/actuati 00:00: every 6 [facility] as on inhaler 00 (six) Medical hours as Branch needed for Shortness of Breath. doxylamine- Yes [id number] Doxylamine [facility] pyridoxine, 02-07 10 ity of [...] mg (4 tablets) per day). albuterol Yes [id number] 2{puff} Inhale 2 [facility] 90 7-08 Puffs ity of mcg/actuati 00:00: every 6 [facility] as on inhaler 00 (six) Medical hours as Branch needed for Shortness of Breath. doxylamine- Yes [id number] Doxylamine [facility] pyridoxine, 02-07 10 ity of [...] mg (4 tablets) per day). albuterol Yes [id number] 2{puff} Inhale 2 [facility] 90 7-08 Puffs ity of mcg/actuati 00:00: every 6 [facility] as on inhaler 00 (six) Medical hours as Branch needed for Shortness of Breath. doxylamine- Yes [id number] Doxylamine [facility] pyridoxine, 02-07 10 ity of [...] mg (4 tablets) per day). albuterol Yes [id number] 2{puff} Inhale 2 [facility] 90 7-08 Puffs ity of mcg/actuati 00:00: every 6 [facility] as on inhaler 00 (six) Medical hours as Branch needed for Shortness of Breath. doxylamine- Yes [id number] Doxylamine [facility] pyridoxine, 02-07 10 ity of [...] mg (4 tablets) per day). albuterol Yes [id number] 2{puff} Inhale 2 [facility] 90 7-08 Puffs ity of mcg/actuati 00:00: every 6 [facility] as on inhaler 00 (six) Medical hours as Branch needed for Shortness of Breath. doxylamine- Yes [id number] Doxylamine [facility] pyridoxine, 02-07 10 ity of [...] mg (4 tablets) per day). albuterol Yes [id number] 2{puff} Inhale 2 [facility] 90 7-08 Puffs ity of mcg/actuati 00:00: every 6 [facility] as on inhaler 00 (six) Medical hours as Branch needed for Shortness of Breath. doxylamine- Yes [id number] Doxylamine [facility] pyridoxine, 02-07 10 ity of [...] mg (4 tablets) per day). albuterol Yes [id number] 2{puff} Inhale 2 [facility] 90 7-08 Puffs ity of mcg/actuati 00:00: every 6 [facility] as on inhaler 00 (six) Medical hours as Branch needed for Shortness of Breath. doxylamine- Yes [id number] Doxylamine [facility] pyridoxine, 02-07 10 ity of [...] mg (4 tablets) per day). albuterol Yes [id number] 2{puff} Inhale 2 [facility] 90 7-08 Puffs ity of mcg/actuati 00:00: every 6 [facility] as on inhaler 00 (six) Medical hours as Branch needed for Shortness of Breath. doxylamine- Yes [id number] Doxylamine [facility] pyridoxine, 02-07 10 ity of [...] mg (4 tablets) per day). albuterol Yes [id number] 2{puff} Inhale 2 [facility] 90 7-08 Puffs ity of mcg/actuati 00:00: every 6 [facility] as on inhaler 00 (six) Medical hours as Branch needed for Shortness of Breath. doxylamine- Yes [id number] Doxylamine [facility] pyridoxine, 02-07 10 ity of [...] mg (4 tablets) per day). albuterol Yes [id number] 2{puff} Inhale 2 [facility] 90 7-08 Puffs ity of mcg/actuati 00:00: every 6 [facility] as on inhaler 00 (six) Medical hours as Branch needed for Shortness of Breath. doxylamine- Yes [id number] Doxylamine [facility] pyridoxine, 02-07 10 ity of [...] mg (4 tablets) per day). albuterol Yes [id number] 2{puff} Inhale 2 [facility] 90 7-08 Puffs ity of mcg/actuati 00:00: every 6 [facility] as on inhaler 00 (six) Medical hours as Branch needed for Shortness of Breath. doxylamine- Yes [id number] Doxylamine [facility] pyridoxine, 02-07 10 ity of [...] mg (4 tablets) per day). albuterol Yes [id number] 2{puff} Inhale 2 [facility] 90 7-08 Puffs ity of mcg/actuati 00:00: every 6 [facility] as on inhaler 00 (six) Medical hours as Branch needed for Shortness of Breath. doxylamine- Yes [id number] Doxylamine [facility] pyridoxine, 02-07 10 ity of [...] mg (4 tablets) per day). albuterol Yes [id number] 2{puff} Inhale 2 [facility] 90 7-08 Puffs ity of mcg/actuati 00:00: every 6 [facility] as on inhaler 00 (six) Medical hours as Branch needed for Shortness of Breath. doxylamine- Yes [id number] Doxylamine [facility] pyridoxine, 02-07 10 ity of [...] mg (4 tablets) per day). albuterol Yes [id number] 2{puff} Inhale 2 [facility] 90 7-08 Puffs ity of mcg/actuati 00:00: every 6 [facility] as on inhaler 00 (six) Medical hours as Branch needed for Shortness of Breath. doxylamine- Yes [id number] Doxylamine [facility] pyridoxine, 02-07 10 ity of [...] mg (4 tablets) per day). albuterol Yes [id number] 2{puff} Inhale 2 [facility] 90 7-08 Puffs ity of mcg/actuati 00:00: every 6 [facility] as on inhaler 00 (six) Medical hours as Branch needed for Shortness of Breath. doxylamine- Yes [id number] Doxylamine [facility] pyridoxine, 02-07 10 ity of [...] mg (4 tablets) per day). albuterol Yes [id number] 2{puff} Inhale 2 [facility] 90 7-08 Puffs ity of mcg/actuati 00:00: every 6 [facility] as on inhaler 00 (six) Medical hours as Branch needed for Shortness of Breath. doxylamine- Yes [id number] Doxylamine [facility] pyridoxine, 02-07 10 ity of [...] mg (4 tablets) per day). albuterol Yes [id number] 2{puff} Inhale 2 [facility] 90 7-08 Puffs ity of mcg/actuati 00:00: every 6 [facility] as on inhaler 00 (six) Medical hours as Branch needed for Shortness of Breath. doxylamine- Yes [id number] Doxylamine [facility] pyridoxine, 02-07 10 ity of [...] mg (4 tablets) per day). albuterol Yes [id number] 2{puff} Inhale 2 [facility] 90 7-08 Puffs ity of mcg/actuati 00:00: every 6 [facility] as on inhaler 00 (six) Medical hours as Branch needed for Shortness of Breath. doxylamine- Yes [id number] Doxylamine [facility] pyridoxine, 02-07 10 ity of [...] mg (4 tablets) per day). albuterol Yes [id number] 2{puff} Inhale 2 [facility] 90 7-08 Puffs ity of mcg/actuati 00:00: every 6 [facility] as on inhaler 00 (six) Medical hours as Branch needed for Shortness of Breath. doxylamine- Yes [id number] Doxylamine [facility] pyridoxine, 02-07 10 ity of [...] mg (4 tablets) per day). albuterol Yes [id number] 2{puff} Inhale 2 [facility] 90 7-08 Puffs ity of mcg/actuati 00:00: every 6 [facility] as on inhaler 00 (six) Medical hours as Branch needed for Shortness of Breath. doxylamine- Yes [id number] Doxylamine [facility] pyridoxine, 02-07 10 ity of [...] mg (4 tablets) per day). albuterol Yes [id number] 2{puff} Inhale 2 [facility] 90 7-08 Puffs ity of mcg/actuati 00:00: every 6 [facility] as on inhaler 00 (six) Medical hours as Branch needed for Shortness of Breath. doxylamine- Yes [id number] Doxylamine [facility] pyridoxine, 02-07 10 ity of [...] mg (4 tablets) per day). albuterol Yes [id number] 2{puff} Inhale 2 [facility] 90 7-08 Puffs ity of mcg/actuati 00:00: every 6 [facility] as on inhaler 00 (six) Medical hours as Branch needed for Shortness of Breath. doxylamine- Yes [id number] Doxylamine [facility] pyridoxine, 02-07 10 ity of [...] mg (4 tablets) per day). albuterol Yes [id number] 2{puff} Inhale 2 [facility] 90 7-08 Puffs ity of mcg/actuati 00:00: every 6 [facility] as on inhaler 00 (six) Medical hours as Branch needed for Shortness of Breath. doxylamine- Yes [id number] Doxylamine [facility] pyridoxine, 02-07 10 ity of [...] mg (4 tablets) per day). albuterol Yes [id number] 2{puff} Inhale 2 [facility] 90 7-08 Puffs ity of mcg/actuati 00:00: every 6 [facility] as on inhaler 00 (six) Medical hours as Branch needed for Shortness of Breath. doxylamine- Yes [id number] Doxylamine [facility] pyridoxine, 02-07 10 ity of [...] mg (4 tablets) per day). albuterol Yes [id number] 2{puff} Inhale 2 [facility] 90 7-08 Puffs ity of mcg/actuati 00:00: every 6 [facility] as on inhaler 00 (six) Medical hours as Branch needed for Shortness of Breath. doxylamine- Yes [id number] Doxylamine [facility] pyridoxine, 02-07 10 ity of [...] mg (4 tablets) per day). albuterol Yes [id number] 2{puff} Inhale 2 [facility] 90 7-08 Puffs ity of mcg/actuati 00:00: every 6 [facility] as on inhaler 00 (six) Medical hours as Branch needed for Shortness of Breath. doxylamine- Yes [id number] Doxylamine [facility] pyridoxine, 02-07 10 ity of [...] mg (4 tablets) per day). albuterol Yes [id number] 2{puff} Inhale 2 [facility] 90 7-08 Puffs ity of mcg/actuati 00:00: every 6 [facility] as on inhaler 00 (six) Medical hours as Branch needed for Shortness of Breath. doxylamine- Yes [id number] Doxylamine [facility] pyridoxine, 02-07 10 ity of [...] mg (4 tablets) per day). albuterol Yes [id number] 2{puff} Inhale 2 [facility] 90 7-08 Puffs ity of mcg/actuati 00:00: every 6 [facility] as on inhaler 00 (six) Medical hours as Branch needed for Shortness of Breath. doxylamine- Yes [id number] Doxylamine [facility] pyridoxine, 02-07 10 ity of [...] mg (4 tablets) per day). albuterol Yes [id number] 2{puff} Inhale 2 [facility] 90 7-08 Puffs ity of mcg/actuati 00:00: every 6 [facility] as on inhaler 00 (six) Medical hours as Branch needed for Shortness of Breath. doxylamine- Yes [id number] Doxylamine [facility] pyridoxine, 02-07 10 ity of [...] mg (4 tablets) per day). albuterol Yes [id number] 2{puff} Inhale 2 [facility] 90 7-08 Puffs ity of mcg/actuati 00:00: every 6 [facility] as on inhaler 00 (six) Medical hours as Branch needed for Shortness of Breath. albuterol Yes [id number] 2{puff} Inhale 2 [facility] 90 7-08 Puffs ity of mcg/actuati 00:00: every 6 [facility] as on inhaler 00 (six) Medical hours as Branch needed for Shortness of Breath. albuterol Yes [id number] 2{puff} Inhale 2 [facility] 90 7-08 Puffs ity of mcg/actuati 00:00: every 6 [facility] as on inhaler 00 (six) Medical hours as Branch needed for Shortness of Breath. albuterol Yes [id number] 2{puff} Inhale 2 [facility] 90 7-08 Puffs ity of mcg/actuati 00:00: every 6 [facility] as on inhaler 00 (six) Medical hours as Branch needed for Shortness of Breath. albuterol Yes [id number] 2{puff} Inhale 2 [facility] 90 7-08 Puffs ity of mcg/actuati 00:00: every 6 [facility] as on inhaler 00 (six) Medical hours as Branch needed for Shortness of Breath. albuterol Yes [id number] 2{puff} Inhale 2 [facility] 90 7-08 Puffs ity of mcg/actuati 00:00: every 6 [facility] as on inhaler 00 (six) Medical hours as Branch needed for Shortness of Breath. albuterol Yes [id number] 2{puff} Inhale 2 [facility] 90 7-08 Puffs ity of mcg/actuati 00:00: every 6 [facility] as on inhaler 00 (six) Medical hours as Branch needed for Shortness of Breath. albuterol Yes [id number] 2{puff} Inhale 2 [facility] 90 7-08 Puffs ity of mcg/actuati 00:00: every 6 [facility] as on inhaler 00 (six) Medical hours as Branch needed for Shortness of Breath. albuterol Yes [id number] 2{puff} Inhale 2 [facility] 90 7-08 Puffs ity of mcg/actuati 00:00: every 6 [facility] as on inhaler 00 (six) Medical hours as Branch needed for Shortness of Breath. albuterol Yes [id number] 2{puff} Inhale 2 [facility] 90 7-08 Puffs ity of mcg/actuati 00:00: every 6 [facility] as on inhaler 00 (six) Medical hours as Branch needed for Shortness of Breath. albuterol Yes [id number] 2{puff} Inhale 2 [facility] 90 7-08 Puffs ity of mcg/actuati 00:00: every 6 [facility] as on inhaler 00 (six) Medical hours as Branch needed for Shortness of Breath. albuterol Yes [id number] 2{puff} Inhale 2 [facility] 90 7-08 Puffs ity of mcg/actuati 00:00: every 6 [facility] as on inhaler 00 (six) Medical hours as Branch needed for Shortness of Breath. albuterol Yes [id number] 2{puff} Inhale 2 [facility] 90 7-08 Puffs ity of mcg/actuati 00:00: every 6 [facility] as on inhaler 00 (six) Medical hours as Branch needed for Shortness of Breath. albuterol Yes [id number] 2{puff} Inhale 2 [facility] 90 7-08 Puffs ity of mcg/actuati 00:00: every 6 [facility] as on inhaler 00 (six) Medical hours as Branch needed for Shortness of Breath. albuterol Yes [id number] 2{puff} Inhale 2 [facility] 90 7-08 Puffs ity of mcg/actuati 00:00: every 6 [facility] as on inhaler 00 (six) Medical hours as Branch needed for Shortness of Breath. albuterol Yes [id number] 2{puff} Inhale 2 [facility] 90 7-08 Puffs ity of mcg/actuati 00:00: every 6 [facility] as on inhaler 00 (six) Medical hours as Branch needed for Shortness of Breath. albuterol Yes [id number] 2{puff} Inhale 2 [facility] 90 7-08 Puffs ity of mcg/actuati 00:00: every 6 [facility] as on inhaler 00 (six) Medical hours as Branch needed for Shortness of Breath. albuterol Yes [id number] 2{puff} Inhale 2 [facility] 90 7-08 Puffs ity of mcg/actuati 00:00: every 6 [facility] as on inhaler 00 (six) Medical hours as Branch needed for Shortness of Breath. albuterol Yes [id number] 2{puff} Inhale 2 [facility] 90 7-08 Puffs ity of mcg/actuati 00:00: every 6 [facility] as on inhaler 00 (six) Medical hours as Branch needed for Shortness of Breath. albuterol Yes [id number] 2{puff} Inhale 2 [facility] 90 7-08 Puffs ity of mcg/actuati 00:00: every 6 [facility] as on inhaler 00 (six) Medical hours as Branch needed for Shortness of Breath. albuterol Yes [id number] 2{puff} Inhale 2 [facility] 90 7-08 Puffs ity of mcg/actuati 00:00: every 6 [facility] as on inhaler 00 (six) Medical hours as Branch needed for Shortness of Breath. albuterol Yes [id number] 2{puff} Inhale 2 [facility] 90 7-08 Puffs ity of mcg/actuati 00:00: every 6 [facility] as on inhaler 00 (six) Medical hours as Branch needed for Shortness of Breath. albuterol Yes [id number] 2{puff} Inhale 2 [facility] 90 7-08 Puffs ity of mcg/actuati 00:00: every 6 [facility] as on inhaler 00 (six) Medical hours as Branch needed for Shortness of Breath. albuterol Yes [id number] 2{puff} Inhale 2 [facility] 90 7-08 Puffs ity of mcg/actuati 00:00: every 6 [facility] as on inhaler 00 (six) Medical hours as Branch needed for Shortness of Breath. albuterol Yes [id number] 2{puff} Inhale 2 [facility] 90 7-08 Puffs ity of mcg/actuati 00:00: every 6 [facility] as on inhaler 00 (six) Medical hours as Branch needed for Shortness of Breath. albuterol Yes [id number] 2{puff} Inhale 2 [facility] 90 7-08 Puffs ity of mcg/actuati 00:00: every 6 [facility] as on inhaler 00 (six) Medical hours as Branch needed for Shortness of Breath. albuterol Yes [id number] 2{puff} Inhale 2 [facility] 90 7-08 Puffs ity of mcg/actuati 00:00: every 6 [facility] as on inhaler 00 (six) Medical hours as Branch needed for Shortness of Breath. albuterol Yes [id number] 2{puff} Inhale 2 [facility] 90 7-08 Puffs ity of mcg/actuati 00:00: every 6 [facility] as on inhaler 00 (six) Medical hours as Branch needed for Shortness of Breath. albuterol Yes [id number] 2{puff} Inhale 2 [facility] 90 7-08 Puffs ity of mcg/actuati 00:00: every 6 [facility] as on inhaler 00 (six) Medical hours as Branch needed for Shortness of Breath. albuterol Yes [id number] 2{puff} Inhale 2 [facility] 90 7-08 Puffs ity of mcg/actuati 00:00: every 6 [facility] as on inhaler 00 (six) Medical hours as Branch needed for Shortness of Breath. albuterol Yes [id number] 2{puff} Inhale 2 [facility] 90 7-08 Puffs ity of mcg/actuati 00:00: every 6 [facility] as on inhaler 00 (six) Medical hours as Branch needed for Shortness of Breath. albuterol Yes [id number] 2{puff} Inhale 2 [facility] 90 7-08 Puffs ity of mcg/actuati 00:00: every 6 [facility] as on inhaler 00 (six) Medical hours as Branch needed for Shortness of Breath. albuterol Yes [id number] 2{puff} Inhale 2 [facility] 90 7-08 Puffs ity of mcg/actuati 00:00: every 6 [facility] as on inhaler 00 (six) Medical hours as Branch needed for Shortness of Breath. albuterol Yes [id number] 2{puff} Inhale 2 [facility] 90 7-08 Puffs ity of mcg/actuati 00:00: every 6 [facility] as on inhaler 00 (six) Medical hours as Branch needed for Shortness of Breath. albuterol Yes [id number] 2{puff} Inhale 2 [facility] 90 7-08 Puffs ity of mcg/actuati 00:00: every 6 [facility] as on inhaler 00 (six) Medical hours as Branch needed for Shortness of Breath. albuterol Yes [id number] 2{puff} Inhale 2 [facility] 90 7-08 Puffs ity of mcg/actuati 00:00: every 6 [facility] as on inhaler 00 (six) Medical hours as Branch needed for Shortness of Breath. albuterol Yes [id number] 2{puff} Inhale 2 [facility] 90 7-08 Puffs ity of mcg/actuati 00:00: every 6 [facility] as on inhaler 00 (six) Medical hours as Branch needed for Shortness of Breath. albuterol Yes [id number] 2{puff} Inhale 2 [facility] 90 7-08 Puffs ity of mcg/actuati 00:00: every 6 [facility] as on inhaler 00 (six) Medical hours as Branch needed for Shortness of Breath. albuterol Yes [id number] 2{puff} Inhale 2 [facility] 90 7-08 Puffs ity of mcg/actuati 00:00: every 6 [facility] as on inhaler 00 (six) Medical hours as Branch needed for Shortness of Breath. albuterol Yes [id number] 2{puff} Inhale 2 [facility] 90 7-08 Puffs ity of mcg/actuati 00:00: every 6 [facility] as on inhaler 00 (six) Medical hours as Branch needed for Shortness of Breath. albuterol Yes [id number] 2{puff} Inhale 2 [facility] 90 7-08 Puffs ity of mcg/actuati 00:00: every 6 [facility] as on inhaler 00 (six) Medical hours as Branch needed for Shortness of Breath. albuterol Yes [id number] 2{puff} Inhale 2 [facility] 90 7-08 Puffs ity of mcg/actuati 00:00: every 6 [facility] as on inhaler 00 (six) Medical hours as Branch needed for Shortness of Breath. albuterol Yes [id number] 2{puff} Inhale 2 [facility] 90 7-08 Puffs ity of mcg/actuati 00:00: every 6 [facility] as on inhaler 00 (six) Medical hours as Branch needed for Shortness of Breath. albuterol Yes [id number] 2{puff} Inhale 2 [facility] 90 7-08 Puffs ity of mcg/actuati 00:00: every 6 [facility] as on inhaler 00 (six) Medical hours as Branch needed for Shortness of Breath. albuterol Yes [id number] 2{puff} Inhale 2 [facility] 90 7-08 Puffs ity of mcg/actuati 00:00: every 6 [facility] as on inhaler 00 (six) Medical hours as Branch needed for Shortness of Breath. albuterol Yes [id number] 2{puff} Inhale 2 [facility] 90 7-08 Puffs ity of mcg/actuati 00:00: every 6 [facility] as on inhaler 00 (six) Medical hours as Branch needed for Shortness of Breath. albuterol Yes [id number] 2{puff} Inhale 2 [facility] 90 7-08 Puffs ity of mcg/actuati 00:00: every 6 [facility] as on inhaler 00 (six) Medical hours as Branch needed for Shortness of Breath. albuterol Yes [id number] 2{puff} Inhale 2 [facility] 90 7-08 Puffs ity of mcg/actuati 00:00: every 6 [facility] as on inhaler 00 (six) Medical hours as Branch needed for Shortness of Breath. albuterol Yes [id number] 2{puff} Inhale 2 [facility] 90 7-08 Puffs ity of mcg/actuati 00:00: every 6 [facility] as on inhaler 00 (six) Medical hours as Branch needed for Shortness of Breath. albuterol Yes [id number] 2{puff} Inhale 2 [facility] 90 7-08 Puffs ity of mcg/actuati 00:00: every 6 [facility] as on inhaler 00 (six) Medical hours as Branch needed for Shortness of Breath. albuterol Yes [id number] 2{puff} Inhale 2 [facility] 90 7-08 Puffs ity of mcg/actuati 00:00: every 6 [facility] as on inhaler 00 (six) Medical hours as Branch needed for Shortness of Breath. albuterol Yes [id number] 2{puff} Inhale 2 [facility] 90 7-08 Puffs ity of mcg/actuati 00:00: every 6 [facility] as on inhaler 00 (six) Medical hours as Branch needed for Shortness of Breath. albuterol Yes [id number] 2{puff} Inhale 2 [facility] 90 7-08 Puffs ity of mcg/actuati 00:00: every 6 [facility] as on inhaler 00 (six) Medical hours as Branch needed for Shortness of Breath. albuterol Yes [id number] 2{puff} Inhale 2 [facility] 90 7-08 Puffs ity of mcg/actuati 00:00: every 6 [facility] as on inhaler 00 (six) Medical hours as Branch needed for Shortness of Breath. albuterol Yes [id number] 2{puff} Inhale 2 [facility] 90 7-08 Puffs ity of mcg/actuati 00:00: every 6 [facility] as on inhaler 00 (six) Medical hours as Branch needed for Shortness of Breath. albuterol Yes [id number] 2{puff} Inhale 2 [facility] 90 7-08 Puffs ity of mcg/actuati 00:00: every 6 [facility] as on inhaler 00 (six) Medical hours as Branch needed for Shortness of Breath. albuterol Yes [id number] 2{puff} Inhale 2 [facility] 90 7-08 Puffs ity of mcg/actuati 00:00: every 6 [facility] as on inhaler 00 (six) Medical hours as Branch needed for Shortness of Breath. albuterol Yes [id number] 2{puff} Inhale 2 [facility] 90 7-08 Puffs ity of mcg/actuati 00:00: every 6 [facility] as on inhaler 00 (six) Medical hours as Branch needed for Shortness of Breath. albuterol Yes [id number] 2{puff} Inhale 2 [facility] 90 7-08 Puffs ity of mcg/actuati 00:00: every 6 [facility] as on inhaler 00 (six) Medical hours as Branch needed for Shortness of Breath. albuterol Yes [id number] 2{puff} Inhale 2 [facility] 90 7-08 Puffs ity of mcg/actuati 00:00: every 6 [facility] as on inhaler 00 (six) Medical hours as Branch needed for Shortness of Breath. albuterol Yes [id number] 2{puff} Inhale 2 [facility] 90 7-08 Puffs ity of mcg/actuati 00:00: every 6 [facility] as on inhaler 00 (six) Medical hours as Branch needed for Shortness of Breath. albuterol Yes [id number] 2{puff} Inhale 2 [facility] 90 7-08 Puffs ity of mcg/actuati 00:00: every 6 [facility] as on inhaler 00 (six) Medical hours as Branch needed for Shortness of Breath. albuterol Yes [id number] 2{puff} Inhale 2 [facility] 90 7-08 Puffs ity of mcg/actuati 00:00: every 6 [facility] as on inhaler 00 (six) Medical hours as Branch needed for Shortness of Breath. albuterol Yes [id number] 2{puff} Inhale 2 [facility] 90 7-08 Puffs ity of mcg/actuati 00:00: every 6 [facility] as on inhaler 00 (six) Medical hours as Branch needed for Shortness of Breath. albuterol Yes [id number] 2{puff} Inhale 2 [facility] 90 7-08 Puffs ity of mcg/actuati 00:00: every 6 [facility] as on inhaler 00 (six) Medical hours as Branch needed for Shortness of Breath. albuterol Yes [id number] 2{puff} Inhale 2 [facility] 90 7-08 Puffs ity of mcg/actuati 00:00: every 6 [facility] as on inhaler 00 (six) Medical hours as Branch needed for Shortness of Breath. albuterol Yes [id number] 2{puff} Inhale 2 [facility] 90 7-08 Puffs ity of mcg/actuati 00:00: every 6 [facility] as on inhaler 00 (six) Medical hours as Branch needed for Shortness of Breath. albuterol Yes [id number] 2{puff} Inhale 2 [facility] 90 7-08 Puffs ity of mcg/actuati 00:00: every 6 [facility] as on inhaler 00 (six) Medical hours as Branch needed for Shortness of Breath. albuterol Yes [id number] 2{puff} Inhale 2 [facility] 90 7-08 Puffs ity of mcg/actuati 00:00: every 6 [facility] as on inhaler 00 (six) Medical hours as Branch needed for Shortness of Breath. albuterol Yes [id number] 2{puff} Inhale 2 [facility] 90 7-08 Puffs ity of mcg/actuati 00:00: every 6 [facility] as on inhaler 00 (six) Medical hours as Branch needed for Shortness of Breath. albuterol Yes [id number] 2{puff} Inhale 2 [facility] 90 7-08 Puffs ity of mcg/actuati 00:00: every 6 [facility] as on inhaler 00 (six) Medical hours as Branch needed for Shortness of Breath. albuterol Yes [id number] 2{puff} Inhale 2 [facility] 90 7-08 Puffs ity of mcg/actuati 00:00: every 6 [facility] as on inhaler 00 (six) Medical hours as Branch needed for Shortness of Breath. albuterol Yes [id number] 2{puff} Inhale 2 [facility] 90 7-08 Puffs ity of mcg/actuati 00:00: every 6 [facility] as on inhaler 00 (six) Medical hours as Branch needed for Shortness of Breath. albuterol Yes [id number] 2{puff} Inhale 2 [facility] 90 7-08 Puffs ity of mcg/actuati 00:00: every 6 [facility] as on inhaler 00 (six) Medical hours as Branch needed for Shortness of Breath. albuterol Yes [id number] 2{puff} Inhale 2 [facility] 90 7-08 Puffs ity of mcg/actuati 00:00: every 6 [facility] as on inhaler 00 (six) Medical hours as Branch needed for Shortness of Breath. albuterol Yes [id number] 2{puff} Inhale 2 [facility] 90 7-08 Puffs ity of mcg/actuati 00:00: every 6 [facility] as on inhaler 00 (six) Medical hours as Branch needed for Shortness of Breath. albuterol Yes [id number] 2{puff} Inhale 2 [facility] 90 7-08 Puffs ity of mcg/actuati 00:00: every 6 [facility] as on inhaler 00 (six) Medical hours as Branch needed for Shortness of Breath. albuterol Yes [id number] 2{puff} Inhale 2 [facility] 90 7-08 Puffs ity of mcg/actuati 00:00: every 6 [facility] as on inhaler 00 (six) Medical hours as Branch needed for Shortness of Breath. albuterol Yes [id number] 2{puff} Inhale 2 [facility] 90 7-08 Puffs ity of mcg/actuati 00:00: every 6 [place] as on inhaler 00 (six) Medical hours as Branch needed for Shortness of Breath. albuterol Yes [id number] 2{puff} Inhale 2 [facility] 90 7-08 Puffs ity of mcg/actuati 00:00: every 6 [place] on inhaler 00 (six) Medical hours as Branch needed for Shortness of Breath. albuterol Yes [id number] 2{puff} Inhale 2 [facility] 90 7-08 Puffs ity of mcg/actuati 00:00: every 6 [place] on inhaler 00 (six) Medical hours as Branch needed for Shortness of Breath. albuterol Yes [id number] 2{puff} Inhale 2 [facility] 90 7-08 Puffs ity of mcg/actuati 00:00: every 6 [place] on inhaler 00 (six) Medical hours as Branch needed for Shortness of Breath. albuterol Yes [id number] 2{puff} Inhale 2 [facility] 90 7-08 Puffs ity of mcg/actuati 00:00: every 6 [place] inhaler 00 (six) Medical hours as Branch needed for Shortness of Breath. albuterol Yes [id number] 2{puff} Inhale 2 [facility] 90 7-08 Puffs ity of mcg/actuati 00:00: every 6 [place] inhaler 00 (six) Medical hours as Branch needed for Shortness of Breath. albuterol Yes [id number] 2{puff} Inhale 2 [facility] 90 7-08 Puffs ity of mcg/actuati 00:00: every 6 [place] inhaler 00 (six) Medical hours as Branch needed for Shortness of Breath. albuterol Yes [id number] 2{puff} Inhale 2 [facility] 90 7-08 Puffs ity of mcg/actuati 00:00: every 6 [place] inhaler 00 (six) Medical hours as Branch needed for Shortness of Breath. albuterol Yes [id number] 2{puff} Inhale 2 [facility] 90 7-08 Puffs ity of mcg/actuati 00:00: every 6 [place] inhaler 00 (six) Medical hours as Branch needed for Shortness of Breath. albuterol Yes [id number] 2{puff} Inhale 2 [facility] 90 7-08 Puffs ity of mcg/actuati 00:00: every 6 [place] inhaler 00 (six) Medical hours as Branch needed for Shortness of Breath. albuterol Yes [id number] 2{puff} Inhale 2 [facility] 90 7-08 Puffs ity of mcg/actuati 00:00: every 6 [place] inhaler 00 (six) Medical hours as Branch needed for Shortness of Breath. albuterol Yes [id number] 2{puff} Inhale 2 [facility] 90 7-08 Puffs ity of mcg/actuati 00:00: every 6 [place] inhaler 00 (six) Medical hours as Branch needed for Shortness of Breath. albuterol Yes [id number] 2{puff} Inhale 2 [facility] 90 7-08 Puffs ity of mcg/actuati 00:00: every 6 [place] inhaler 00 (six) Medical hours as Branch needed for Shortness of Breath. albuterol Yes [id number] 2{puff} Inhale 2 [facility] 90 7-08 Puffs ity of mcg/actuati 00:00: every 6 [place] inhaler 00 (six) Medical hours as Branch needed for Shortness of Breath. albuterol Yes [id number] 2{puff} Inhale 2 [facility] 90 7-08 Puffs ity of mcg/actuati 00:00: every 6 [place] inhaler 00 (six) Medical hours as Branch needed for Shortness of Breath. albuterol Yes [id number] 2{puff} Inhale 2 [facility] 90 7-08 Puffs ity of mcg/actuati 00:00: every 6 [place] inhaler 00 (six) Medical hours as Branch needed for Shortness of Breath. albuterol Yes [id number] 2{puff} Inhale 2 [facility] 90 7-08 Puffs ity of mcg/actuati 00:00: every 6 [place] inhaler 00 (six) Medical hours as Branch needed for Shortness of Breath. albuterol Yes [id number] 2{puff} Inhale 2 [facility] 90 7-08 Puffs ity of mcg/actuati 00:00: every 6 [place] inhaler 00 (six) Medical hours as Branch needed for Shortness of Breath. albuterol Yes [id number] 2{puff} Inhale 2 [facility] 90 7-08 Puffs ity of mcg/actuati 00:00: every 6 [place] on inhaler 00 (six) Medical hours as Branch needed for Shortness of Breath. albuterol Yes [id number] 2{puff} Inhale 2 [facility] 90 7-08 Puffs ity of mcg/actuati 00:00: every 6 [place] inhaler 00 (six) Medical hours as Branch needed for Shortness of Breath. albuterol Yes [id number] 2{puff} Inhale 2 [facility] 90 7-08 Puffs ity of mcg/actuati 00:00: every 6 [place] on inhaler 00 (six) Medical hours as Branch needed for Shortness of Breath. albuterol Yes [id number] 2{puff} Inhale 2 [facility] 90 7-08 Puffs ity of mcg/actuati 00:00: every 6 [place] inhaler 00 (six) Medical hours as Branch needed for Shortness of Breath. albuterol Yes [id number] 2{puff} Inhale 2 [facility] 90 7-08 Puffs ity of mcg/actuati 00:00: every 6 [place] inhaler 00 (six) Medical hours as Branch needed for Shortness of Breath. albuterol Yes [id number] 2{puff} Inhale 2 [facility] 90 7-08 Puffs ity of mcg/actuati 00:00: every 6 [place] on inhaler 00 (six) Medical hours as Branch needed for Shortness of Breath. albuterol Yes [id number] 2{puff} Inhale 2 [facility] 90 7-08 Puffs ity of mcg/actuati 00:00: every 6 [place] on inhaler 00 (six) Medical hours as Branch needed for Shortness of Breath. albuterol Yes [id number] 2{puff} Inhale 2 [facility] 90 7-08 Puffs ity of mcg/actuati 00:00: every 6 [place] on inhaler 00 (six) Medical hours as Branch needed for Shortness of Breath. albuterol Yes [id number] 2{puff} Inhale 2 [facility] 90 7-08 Puffs ity of mcg/actuati 00:00: every 6 [place] as on inhaler 00 (six) Medical hours as Branch needed for Shortness of Breath. doxylamine- 2021- No [id number] Doxylamine [facility] pyridoxine, 02-07 10 ity of [...] (4 tablets) per day). doxylamine- 2021- No [id number] Doxylamine [facility] pyridoxine, 02-07 10 ity of [...] (4 tablets) per day). doxylamine- 2021- No [id number] Doxylamine [facility] pyridoxine, 02-07 10 ity of [...] (4 tablets) per day). doxylamine- 2021- No [id number] Doxylamine [facility] pyridoxine, 02-07 10 ity of [...] tablets) per day). aspirin 81 2021-0 Yes [id number] 81mg Take 1 [facility] mg EC 7-07 tablet by ity of tablet 00:00: mouth [place] 00 daily. [facility] Branch aspirin 81 0 Yes [id number] 81mg Take 1 [facility] mg EC 7-07 tablet by ity of tablet 00:00: mouth [place] 00 daily. [facility] Branch aspirin 81 2021-0 Yes [id number] 81mg Take 1 [facility] mg EC 7-07 tablet by ity of tablet 00:00: mouth [place] 00 daily. [facility] Branch aspirin 81 2021-0 Yes [id number] 81mg Take 1 [facility] mg EC 7-07 tablet by ity of tablet 00:00: mouth [place] 00 daily. [facility] Branch aspirin 81 0 Yes [id number] 81mg Take 1 [facility] mg EC 7-07 tablet by ity of tablet 00:00: mouth [place] 00 daily. Medical Branch aspirin 81 2021-0 Yes [id number] 81mg Take 1 [facility] mg EC 7-07 tablet by ity of tablet 00:00: mouth [place] 00 daily. Medical Branch aspirin 81 2021-0 Yes [id number] 81mg Take 1 [facility] mg EC 7-07 tablet by ity of tablet 00:00: mouth [place] 00 daily. Medical Branch aspirin 81 2021-0 Yes [id number] 81mg Take 1 [facility] mg EC 7-07 tablet by ity of tablet 00:00: mouth [place] 00 daily. Medical Branch aspirin 81 2021-0 Yes [id number] 81mg Take 1 [facility] mg EC 7-07 tablet by ity of tablet 00:00: mouth [place] 00 daily. Medical Branch aspirin 81 2021-0 Yes [id number] 81mg Take 1 [facility] mg EC 7-07 tablet by ity of tablet 00:00: mouth [place] 00 daily. Medical Branch aspirin 81 2021-0 Yes [id number] 81mg Take 1 [facility] mg EC 7-07 tablet by ity of tablet 00:00: mouth [place] 00 daily. Medical Branch aspirin 81 2021-0 Yes [id number] 81mg Take 1 [facility] mg EC 7-07 tablet by ity of tablet 00:00: mouth [place] 00 daily. Medical [facility] aspirin 81 2021-0 Yes [id number] 81mg Take 1 [facility] mg EC 7-07 tablet by ity of tablet 00:00: mouth [place] 00 daily. [facility] aspirin 81 2021-0 Yes [id number] 81mg Take 1 [facility] mg EC 7-07 tablet by ity of tablet 00:00: mouth [place] 00 daily. [facility] aspirin 81 2021-0 Yes [id number] 81mg Take 1 [facility] mg EC 7-07 tablet by ity of tablet 00:00: mouth [place] 00 daily. [facility] aspirin 81 2021-0 Yes [id number] 81mg Take 1 [facility] mg EC 7-07 tablet by ity of tablet 00:00: mouth [place] 00 daily. [facility] aspirin 81 2021-0 Yes [id number] 81mg Take 1 [facility] mg EC 7-07 tablet by ity of tablet 00:00: mouth [place] 00 daily. [facility] aspirin 81 2021-0 Yes [id number] 81mg Take 1 [facility] mg EC 7-07 tablet by ity of tablet 00:00: mouth [place] 00 daily. [facility] aspirin 81 2021-0 Yes [id number] 81mg Take 1 [facility] mg EC 7-07 tablet by ity of tablet 00:00: mouth [place] 00 daily. [facility] aspirin 81 2021-0 Yes [id number] 81mg Take 1 [facility] mg EC 7-07 tablet by ity of tablet 00:00: mouth [place] 00 daily. [facility] aspirin 81 2021-0 Yes [id number] 81mg Take 1 [facility] mg EC 7-07 tablet by ity of tablet 00:00: mouth [place] 00 daily. [facility] aspirin 81 2021-0 Yes [id number] 81mg Take 1 [facility] mg EC 7-07 tablet by ity of tablet 00:00: mouth [place] 00 daily. [facility] Branch aspirin 81 2021-0 Yes [id number] 81mg Take 1 [facility] mg EC 7-07 tablet by ity of tablet 00:00: mouth [place] 00 daily. [facility] Branch aspirin 81 2021-0 Yes [id number] 81mg Take 1 [facility] mg EC 7-07 tablet by ity of tablet 00:00: mouth [place] 00 daily. Medical Branch aspirin 81 2021-0 Yes [id number] 81mg Take 1 [facility] mg EC 7-07 tablet by ity of tablet 00:00: mouth [place] 00 daily. Medical Branch aspirin 81 2021-0 Yes [id number] 81mg Take 1 [facility] mg EC 7-07 tablet by ity of tablet 00:00: mouth [place] 00 daily. Medical Branch aspirin 81 2021-0 Yes [id number] 81mg Take 1 [facility] mg EC 7-07 tablet by ity of tablet 00:00: mouth [place] 00 daily. Medical Branch aspirin 81 2021-0 Yes [id number] 81mg Take 1 [facility] mg EC 7-07 tablet by ity of tablet 00:00: mouth [place] 00 daily. Medical Branch aspirin 81 2021-0 Yes [id number] 81mg Take 1 [facility] mg EC 7-07 tablet by ity of tablet 00:00: mouth [place] 00 daily. Medical Branch aspirin 81 2021-0 Yes [id number] 81mg Take 1 [facility] mg EC 7-07 tablet by ity of tablet 00:00: mouth [place] 00 daily. Medical Branch aspirin 81 2021-0 Yes [id number] 81mg Take 1 [facility] mg EC 7-07 tablet by ity of tablet 00:00: mouth [place] 00 daily. Medical Branch aspirin 81 2021-0 Yes [id number] 81mg Take 1 [facility] mg EC 7-07 tablet by ity of tablet 00:00: mouth [place] 00 daily. Medical Branch aspirin 81 2021-0 Yes [id number] 81mg Take 1 [facility] mg EC 7-07 tablet by ity of tablet 00:00: mouth [place] 00 daily. Medical Branch aspirin 81 2021-0 Yes [id number] 81mg Take 1 [facility] mg EC 7-07 tablet by ity of tablet 00:00: mouth [place] 00 daily. Medical Branch aspirin 81 2021-0 Yes [id number] 81mg Take 1 [facility] mg EC 7-07 tablet by ity of tablet 00:00: mouth [place] 00 daily. Medical Branch aspirin 81 2021-0 Yes [id number] 81mg Take 1 [facility] mg EC 7-07 tablet by ity of tablet 00:00: mouth [place] 00 daily. Medical Branch aspirin 81 2021-0 Yes [id number] 81mg Take 1 [facility] mg EC 7-07 tablet by ity of tablet 00:00: mouth [place] 00 daily. Medical Branch aspirin 81 2021-0 Yes [id number] 81mg Take 1 [facility] mg EC 7-07 tablet by ity of tablet 00:00: mouth [place] 00 daily. Medical Branch aspirin 81 2021-0 Yes [id number] 81mg Take 1 [facility] mg EC 7-07 tablet by ity of tablet 00:00: mouth [place] 00 daily. Medical Branch aspirin 81 2021-0 Yes [id number] 81mg Take 1 [facility] mg EC 7-07 tablet by ity of tablet 00:00: mouth [place] 00 daily. Medical Branch aspirin 81 2021-0 Yes [id number] 81mg Take 1 [facility] mg EC 7-07 tablet by ity of tablet 00:00: mouth [place] 00 daily. Medical Branch aspirin 81 2021-0 Yes [id number] 81mg Take 1 [facility] mg EC 7-07 tablet by ity of tablet 00:00: mouth [place] 00 daily. Medical Branch aspirin 81 2021-0 Yes [id number] 81mg Take 1 [facility] mg EC 7-07 tablet by ity of tablet 00:00: mouth [place] 00 daily. Medical Branch aspirin 81 2021-0 Yes [id number] 81mg Take 1 [facility] mg EC 7-07 tablet by ity of tablet 00:00: mouth [place] 00 daily. Medical Branch aspirin 81 2021-0 Yes [id number] 81mg Take 1 [facility] mg EC 7-07 tablet by ity of tablet 00:00: mouth [place] 00 daily. Medical Branch aspirin 81 2021-0 Yes [id number] 81mg Take 1 [facility] mg EC 7-07 tablet by ity of tablet 00:00: mouth [place] 00 daily. Medical Branch aspirin 81 2021-0 Yes [id number] 81mg Take 1 [facility] mg EC 7-07 tablet by ity of tablet 00:00: mouth [place] 00 daily. Medical Branch aspirin 81 2021-0 Yes [id number] 81mg Take 1 [facility] mg EC 7-07 tablet by ity of tablet 00:00: mouth [place] 00 daily. Medical Branch aspirin 81 2021-0 Yes [id number] 81mg Take 1 [facility] mg EC 7-07 tablet by ity of tablet 00:00: mouth [place] 00 daily. Medical Branch aspirin 81 2021-0 Yes [id number] 81mg Take 1 [facility] mg EC 7-07 tablet by ity of tablet 00:00: mouth [place] 00 daily. Medical Branch aspirin 81 2021-0 Yes [id number] 81mg Take 1 [facility] mg EC 7-07 tablet by ity of tablet 00:00: mouth [place] 00 daily. [facility] Branch aspirin 81 2021-0 Yes [id number] 81mg Take 1 [facility] mg EC 7-07 tablet by ity of tablet 00:00: mouth [place] 00 daily. Medical Branch aspirin 81 2021-0 Yes [id number] 81mg Take 1 [facility] mg EC 7-07 tablet by ity of tablet 00:00: mouth [place] 00 daily. Medical Branch aspirin 81 2021-0 Yes [id number] 81mg Take 1 [facility] mg EC 7-07 tablet by ity of tablet 00:00: mouth [place] 00 daily. Medical Branch aspirin 81 2021-0 Yes [id number] 81mg Take 1 [facility] mg EC 7-07 tablet by ity of tablet 00:00: mouth [place] 00 daily. Medical Branch aspirin 81 2021-0 Yes [id number] 81mg Take 1 [facility] mg EC 7-07 tablet by ity of tablet 00:00: mouth [place] 00 daily. [facility] Branch aspirin 81 2021-0 Yes [id number] 81mg Take 1 [facility] mg EC 7-07 tablet by ity of tablet 00:00: mouth [place] 00 daily. [facility] Branch aspirin 81 2022-0 Yes [id number] 81mg Take 1 [facility] mg EC 7-07 tablet by ity of tablet 00:00: mouth [place] 00 daily. [facility] Branch aspirin 81 2021-0 Yes [id number] 81mg Take 1 [facility] mg EC 7-07 tablet by ity of tablet 00:00: mouth [place] 00 daily. [facility] Branch aspirin 81 2021-0 Yes [id number] 81mg Take 1 [facility] mg EC 7-07 tablet by ity of tablet 00:00: mouth [place] 00 daily. [facility] Branch aspirin 81 2021-0 Yes [id number] 81mg Take 1 [facility] mg EC 7-07 tablet by ity of tablet 00:00: mouth [place] 00 daily. [facility] Branch aspirin 81 2021-0 Yes [id number] 81mg Take 1 [facility] mg EC 7-07 tablet by ity of tablet 00:00: mouth [place] 00 daily. [facility] Branch aspirin 81 2021-0 Yes [id number] 81mg Take 1 [facility] mg EC 7-07 tablet by ity of tablet 00:00: mouth [place] 00 daily. [facility] Branch aspirin 81 2021-0 Yes [id number] 81mg Take 1 [facility] mg EC 7-07 tablet by ity of tablet 00:00: mouth [place] 00 daily. [facility] Branch aspirin 81 2021-0 Yes [id number] 81mg Take 1 [facility] mg EC 7-07 tablet by ity of tablet 00:00: mouth [place] 00 daily. Medical Branch aspirin 81 2021-0 Yes [id number] 81mg Take 1 [facility] mg EC 7-07 tablet by ity of tablet 00:00: mouth [place] 00 daily. Medical Branch aspirin 81 2021-0 Yes [id number] 81mg Take 1 [facility] mg EC 7-07 tablet by ity of tablet 00:00: mouth [place] 00 daily. Medical Branch aspirin 81 2021-0 Yes [id number] 81mg Take 1 [facility] mg EC 7-07 tablet by ity of tablet 00:00: mouth [place] 00 daily. Medical Branch aspirin 81 2021-0 Yes [id number] 81mg Take 1 [facility] mg EC 7-07 tablet by ity of tablet 00:00: mouth [place] 00 daily. Medical Branch aspirin 81 2021-0 Yes [id number] 81mg Take 1 [facility] mg EC 7-07 tablet by ity of tablet 00:00: mouth [place] 00 daily. [facility] Branch aspirin 81 2022-0 Yes [id number] 81mg Take 1 [facility] mg EC 7-07 tablet by ity of tablet 00:00: mouth [place] 00 daily. [facility] Branch aspirin 81 2021-0 Yes [id number] 81mg Take 1 [facility] mg EC 7-07 tablet by ity of tablet 00:00: mouth [place] 00 daily. [facility] Branch aspirin 81 2021-0 Yes [id number] 81mg Take 1 [facility] mg EC 7-07 tablet by ity of tablet 00:00: mouth [place] 00 daily. [facility] Branch aspirin 81 2021-0 Yes [id number] 81mg Take 1 [facility] mg EC 7-07 tablet by ity of tablet 00:00: mouth [place] 00 daily. [facility] Branch aspirin 81 2021-0 Yes [id number] 81mg Take 1 [facility] mg EC 7-07 tablet by ity of tablet 00:00: mouth [place] 00 daily. Medical Branch aspirin 81 0 Yes [id number] 81mg Take 1 [facility] mg EC 7-07 tablet by ity of tablet 00:00: mouth [place] 00 daily. Medical Branch aspirin 81 0 Yes [id number] 81mg Take 1 [facility] mg EC 7-07 tablet by ity of tablet 00:00: mouth [place] 00 daily. [facility] Branch aspirin 81 0 Yes [id number] 81mg Take 1 [facility] mg EC 7-07 tablet by ity of tablet 00:00: mouth [place] 00 daily. [facility] Branch aspirin 81 2021-0 Yes [id number] 81mg Take 1 [facility] mg EC 7-07 tablet by ity of tablet 00:00: mouth [place] 00 daily. [facility] Branch aspirin 81 2021-0 Yes [id number] 81mg Take 1 [facility] mg EC 7-07 tablet by ity of tablet 00:00: mouth [place] 00 daily. [facility] Branch aspirin 81 2021-0 Yes [id number] 81mg Take 1 [facility] mg EC 7-07 tablet by ity of tablet 00:00: mouth [place] 00 daily. [facility] Branch aspirin 81 2021-0 Yes [id number] 81mg Take 1 [facility] mg EC 7-07 tablet by ity of tablet 00:00: mouth [place] 00 daily. [facility] Branch aspirin 81 2021-0 Yes [id number] 81mg Take 1 [facility] mg EC 7-07 tablet by ity of tablet 00:00: mouth [place] 00 daily. [facility] Branch aspirin 81 2021-0 Yes [id number] 81mg Take 1 [facility] mg EC 7-07 tablet by ity of tablet 00:00: mouth [place] 00 daily. [facility] Branch aspirin 81 2021-0 Yes [id number] 81mg Take 1 [facility] mg EC 7-07 tablet by ity of tablet 00:00: mouth [place] 00 daily. [facility] Branch aspirin 81 2021-0 Yes [id number] 81mg Take 1 [facility] mg EC 7-07 tablet by ity of tablet 00:00: mouth [place] 00 daily. [facility] Branch aspirin 81 2021-0 Yes [id number] 81mg Take 1 [facility] mg EC 7-07 tablet by ity of tablet 00:00: mouth [place] 00 daily. [facility] Branch aspirin 81 2021-0 Yes [id number] 81mg Take 1 [facility] mg EC 7-07 tablet by ity of tablet 00:00: mouth [place] 00 daily. [facility] Branch aspirin 81 2021-0 Yes [id number] 81mg Take 1 [facility] mg EC 7-07 tablet by ity of tablet 00:00: mouth [place] 00 daily. [facility] Branch aspirin 81 2021-0 Yes [id number] 81mg Take 1 [facility] mg EC 7-07 tablet by ity of tablet 00:00: mouth [place] 00 daily. [facility] Branch aspirin 81 2021-0 Yes [id number] 81mg Take 1 [facility] mg EC 7-07 tablet by ity of tablet 00:00: mouth [place] 00 daily. [facility] Branch aspirin 81 2021-0 Yes [id number] 81mg Take 1 [facility] mg EC 7-07 tablet by ity of tablet 00:00: mouth [place] 00 daily. [facility] Branch aspirin 81 2021-0 Yes [id number] 81mg Take 1 [facility] mg EC 7-07 tablet by ity of tablet 00:00: mouth [place] 00 daily. [facility] Branch aspirin 81 2021-0 Yes [id number] 81mg Take 1 [facility] mg EC 7-07 tablet by ity of tablet 00:00: mouth [place] 00 daily. Medical Branch aspirin 81 2021-0 Yes [id number] 81mg Take 1 [facility] mg EC 7-07 tablet by ity of tablet 00:00: mouth [place] 00 daily. Medical Branch aspirin 81 2021-0 Yes [id number] 81mg Take 1 [facility] mg EC 7-07 tablet by ity of tablet 00:00: mouth [place] 00 daily. [facility] Branch aspirin 81 2021-0 Yes [id number] 81mg Take 1 [facility] mg EC 7-07 tablet by ity of tablet 00:00: mouth [place] 00 daily. [facility] Branch aspirin 81 0 Yes [id number] 81mg Take 1 [facility] mg EC 7-07 tablet by ity of tablet 00:00: mouth [place] 00 daily. [facility] Branch aspirin 81 0 Yes [id number] 81mg Take 1 [facility] mg EC 7-07 tablet by ity of tablet 00:00: mouth [place] 00 daily. [facility] Branch aspirin 81 0 Yes [id number] 81mg Take 1 [facility] mg EC 7-07 tablet by ity of tablet 00:00: mouth [place] 00 daily. [facility] Branch aspirin 81 0 Yes [id number] 81mg Take 1 [facility] mg EC 7-07 tablet by ity of tablet 00:00: mouth [place] 00 daily. [facility] Branch aspirin 81 0 Yes [id number] 81mg Take 1 [facility] mg EC 7-07 tablet by ity of tablet 00:00: mouth [place] 00 daily. [facility] Branch aspirin 81 0 Yes [id number] 81mg Take 1 [facility] mg EC 7-07 tablet by ity of tablet 00:00: mouth [place] 00 daily. [facility] Branch aspirin 81 2021-0 2022- No [id number] 81mg Take 1 [facility] mg EC 7-07 02-10 tablet by ity of tablet 00:00: 00:00 mouth [place] 00 :00 daily. [facility] Branch aspirin 81 2021-0 2022- No [id number] 81mg Take 1 [facility] mg EC 7-07 02-10 tablet by ity of tablet 00:00: 00:00 mouth [place] 00 :00 daily. [facility] Branch aspirin 81 2021-0 2022- No [id number] 81mg Take 1 [facility] mg EC 7-07 [...] [place] 40 :00 Medical Branch Prenat Vit 2022-0 Yes [id number] 1{packe Take 1 [facility] Comb.10-Iro 6-27 t} Packet by ity of n-FA-DHA 00:00: mouth [place] (VITAFOL-OB 00 daily. Medica l +DHA) Branch 65-1-250 mg combo pack Prenat Vit 2022-0 Yes [id number] 1{packe Take 1 [facility] Comb.10-Iro 6-27 t} Packet by ity of n-FA-DHA 00:00: mouth [place] (VITAFOL-OB 00 daily. Medica l +DHA) Branch 65-1-250 mg combo pack Prenat Vit 2022-0 Yes [id number] 1{packe Take 1 [facility] Comb.10-Iro 6-27 t} Packet by ity of n-FA-DHA 00:00: mouth [place] (VITAFOL-OB 00 daily. Medica l +DHA) Branch 65-1-250 mg combo pack Prenat Vit 2022-0 Yes [id number] 1{packe Take 1 [facility] Comb.10-Iro 6-27 t} Packet by ity of n-FA-DHA 00:00: mouth [place] (VITAFOL-OB 00 daily. Medica l +DHA) Branch 65-1-250 mg combo pack Prenat Vit 2022-0 Yes [id number] 1{packe Take 1 [facility] Comb.10-Iro 6-27 t} Packet by ity of n-FA-DHA 00:00: mouth [place] (VITAFOL-OB 00 daily. Medica l +DHA) Branch 65-1-250 mg combo pack Prenat Vit 2022-0 Yes [id number] 1{packe Take 1 [facility] Comb.10-Iro 6-27 t} Packet by ity of n-FA-DHA 00:00: mouth [place] (VITAFOL-OB 00 daily. Medica l +DHA) Branch 65-1-250 mg combo pack Prenat Vit 2022-0 Yes [id number] 1{packe Take 1 [facility] Comb.10-Iro 6-27 t} Packet by ity of n-FA-DHA 00:00: mouth [place] (VITAFOL-OB 00 daily. Medica l +DHA) Branch 65-1-250 mg combo pack Prenat Vit 2022-0 Yes [id number] 1{packe Take 1 [facility] Comb.10-Iro 6-27 t} Packet by ity of n-FA-DHA 00:00: mouth [place] (VITAFOL-OB 00 daily. Medica l +DHA) Branch 65-1-250 mg combo pack Prenat Vit 2022-0 Yes [id number] 1{packe Take 1 [facility] Comb.10-Iro 6-27 t} Packet by ity of n-FA-DHA 00:00: mouth [place] (VITAFOL-OB 00 daily. Medica l +DHA) Branch 65-1-250 mg combo pack Prenat Vit 2022-0 Yes [id number] 1{packe Take 1 [facility] Comb.10-Iro 6-27 t} Packet by ity of n-FA-DHA 00:00: mouth [place] (VITAFOL-OB 00 daily. Medica l +DHA) Branch 65-1-250 mg combo pack Prenat Vit 2022-0 Yes [id number] 1{packe Take 1 [facility] Comb.10-Iro 6-27 t} Packet by ity of n-FA-DHA 00:00: mouth [place] (VITAFOL-OB 00 daily. Medica l +DHA) Branch 65-1-250 mg combo pack Prenat Vit 2022-0 Yes [id number] 1{packe Take 1 [facility] Comb.10-Iro 6-27 t} Packet by ity of n-FA-DHA 00:00: mouth [place] (VITAFOL-OB 00 daily. Medica l +DHA) Branch 65-1-250 mg combo pack Prenat Vit 2022-0 Yes [id number] 1{packe Take 1 [facility] Comb.10-Iro 6-27 t} Packet by ity of n-FA-DHA 00:00: mouth [place] (VITAFOL-OB 00 daily. Medica l +DHA) Branch 65-1-250 mg combo pack Prenat Vit 2022-0 Yes [id number] 1{packe Take 1 [facility] Comb.10-Iro 6-27 t} Packet by ity of n-FA-DHA 00:00: mouth [place] (VITAFOL-OB 00 daily. Medica l +DHA) Branch 65-1-250 mg combo pack Prenat Vit 2022-0 Yes [id number] 1{packe Take 1 [facility] Comb.10-Iro 6-27 t} Packet by ity of n-FA-DHA 00:00: mouth [place] (VITAFOL-OB 00 daily. Medica l +DHA) Branch 65-1-250 mg combo pack Prenat Vit 2022-0 Yes [id number] 1{packe Take 1 [facility] Comb.10-Iro 6-27 t} Packet by ity of n-FA-DHA 00:00: mouth [place] (VITAFOL-OB 00 daily. Medica l +DHA) Branch 65-1-250 mg combo pack Prenat Vit 2022-0 Yes [id number] 1{packe Take 1 [facility] Comb.10-Iro 6-27 t} Packet by ity of n-FA-DHA 00:00: mouth [place] (VITAFOL-OB 00 daily. Medica l +DHA) Branch 65-1-250 mg combo pack Prenat Vit 2022-0 Yes [id number] 1{packe Take 1 [facility] Comb.10-Iro 6-27 t} Packet by ity of n-FA-DHA 00:00: mouth [place] (VITAFOL-OB 00 daily. Medica l +DHA) Branch 65-1-250 mg combo pack Prenat Vit 2022-0 Yes [id number] 1{packe Take 1 [facility] Comb.10-Iro 6-27 t} Packet by ity of n-FA-DHA 00:00: mouth [place] (VITAFOL-OB 00 daily. Medica l +DHA) Branch 65-1-250 mg combo pack Prenat Vit 2022-0 Yes [id number] 1{packe Take 1 [facility] Comb.10-Iro 6-27 t} Packet by ity of n-FA-DHA 00:00: mouth [place] (VITAFOL-OB 00 daily. Medica l +DHA) Branch 65-1-250 mg combo pack Prenat Vit 2022-0 Yes [id number] 1{packe Take 1 [facility] Comb.10-Iro 6-27 t} Packet by ity of n-FA-DHA 00:00: mouth [place] (VITAFOL-OB 00 daily. Medica l +DHA) Branch 65-1-250 mg combo pack Prenat Vit 2022-0 Yes [id number] 1{packe Take 1 [facility] Comb.10-Iro 6-27 t} Packet by ity of n-FA-DHA 00:00: mouth [place] (VITAFOL-OB 00 daily. Medica l +DHA) Branch 65-1-250 mg combo pack Prenat Vit 2022-0 Yes [id number] 1{packe Take 1 [facility] Comb.10-Iro 6-27 t} Packet by ity of n-FA-DHA 00:00: mouth [place] (VITAFOL-OB 00 daily. Medica l +DHA) Branch 65-1-250 mg combo pack Prenat Vit 2022-0 Yes [id number] 1{packe Take 1 [facility] Comb.10-Iro 6-27 t} Packet by ity of n-FA-DHA 00:00: mouth [place] (VITAFOL-OB 00 daily. Medica l +DHA) Branch 65-1-250 mg combo pack Prenat Vit 2022-0 Yes [id number] 1{packe Take 1 [facility] Comb.10-Iro 6-27 t} Packet by ity of n-FA-DHA 00:00: mouth [place] (VITAFOL-OB 00 daily. Medica l +DHA) Branch 65-1-250 mg combo pack Prenat Vit 2022-0 Yes [id number] 1{packe Take 1 [facility] Comb.10-Iro 6-27 t} Packet by ity of n-FA-DHA 00:00: mouth [place] (VITAFOL-OB 00 daily. [facility] +DHA) Branch 65-1-250 mg combo pack Prenat Vit 2022-0 Yes [id number] 1{packe Take 1 [facility] Comb.10-Iro 6-27 t} Packet by ity of n-FA-DHA 00:00: mouth [place] (VITAFOL-OB 00 daily. [facility] +DHA) Branch 65-1-250 mg combo pack Prenat Vit 2022-0 Yes [id number] 1{packe Take 1 [facility] Comb.10-Iro 6-27 t} Packet by ity of n-FA-DHA 00:00: mouth [place] (VITAFOL-OB 00 daily. [facility] l +DHA) Branch 65-1-250 mg combo pack Prenat Vit 2022-0 Yes [id number] 1{packe Take 1 [facility] Comb.10-Iro 6-27 t} Packet by ity of n-FA-DHA 00:00: mouth [place] (VITAFOL-OB 00 daily. [facility] +DHA) Branch 65-1-250 mg combo pack Prenat Vit 2022-0 Yes [id number] 1{packe Take 1 [facility] Comb.10-Iro 6-27 t} Packet by ity of n-FA-DHA 00:00: mouth [place] (VITAFOL-OB 00 daily. [facility] +DHA) Branch 65-1-250 mg combo pack Prenat Vit 2022-0 Yes [id number] 1{packe Take 1 [facility] Comb.10-Iro 6-27 t} Packet by ity of n-FA-DHA 00:00: mouth [place] (VITAFOL-OB 00 daily. [facility] +DHA) Branch 65-1-250 mg combo pack Prenat Vit 2022-0 Yes [id number] 1{packe Take 1 [facility] Comb.10-Iro 6-27 t} Packet by ity of n-FA-DHA 00:00: mouth [place] (VITAFOL-OB 00 daily. [facility] +DHA) Branch 65-1-250 mg combo pack Prenat Vit 2022-0 Yes [id number] 1{packe Take 1 [facility] Comb.10-Iro 6-27 t} Packet by ity of n-FA-DHA 00:00: mouth [place] (VITAFOL-OB 00 daily. [facility] +DHA) Branch 65-1-250 mg combo pack Prenat Vit 2022-0 Yes [id number] 1{packe Take 1 [facility] Comb.10-Iro 6-27 t} Packet by ity of n-FA-DHA 00:00: mouth [place] (VITAFOL-OB 00 daily. [facility] +DHA) Branch 65-1-250 mg combo pack Prenat Vit 2022-0 Yes [id number] 1{packe Take 1 [facility] Comb.10-Iro 6-27 t} Packet by ity of n-FA-DHA 00:00: mouth [place] (VITAFOL-OB 00 daily. Med[facility] l +DHA) Branch 65-1-250 mg combo pack Prenat Vit 2022-0 Yes [id number] 1{packe Take 1 [facility] Comb.10-Iro 6-27 t} Packet by ity of n-FA-DHA 00:00: mouth [place] (VITAFOL-OB 00 daily. [facility] +DHA) Branch 65-1-250 mg combo pack Prenat Vit 2022-0 Yes [id number] 1{packe Take 1 [facility] Comb.10-Iro 6-27 t} Packet by ity of n-FA-DHA 00:00: mouth [place] (VITAFOL-OB 00 daily. [facility] +DHA) Branch 65-1-250 mg combo pack Prenat Vit 2022-0 Yes [id number] 1{packe Take 1 [facility] Comb.10-Iro 6-27 t} Packet by ity of n-FA-DHA 00:00: mouth [place] (VITAFOL-OB 00 daily. [facility] l +DHA) Branch 65-1-250 mg combo pack Prenat Vit 2022-0 Yes [id number] 1{packe Take 1 [facility] Comb.10-Iro 6-27 t} Packet by ity of n-FA-DHA 00:00: mouth [place] (VITAFOL-OB 00 daily. [facility] l +DHA) Branch 65-1-250 mg combo pack Prenat Vit 2022-0 Yes [id number] 1{packe Take 1 [facility] Comb.10-Iro 6-27 t} Packet by ity of n-FA-DHA 00:00: mouth [place] (VITAFOL-OB 00 daily. Med[facility] l +DHA) Branch 65-1-250 mg combo pack Prenat Vit 2022-0 Yes [id number] 1{packe Take 1 [facility] Comb.10-Iro 6-27 t} Packet by ity of n-FA-DHA 00:00: mouth [place] (VITAFOL-OB 00 daily. Med[facility] l +DHA) Branch 65-1-250 mg combo pack Prenat Vit 2022-0 Yes [id number] 1{packe Take 1 [facility] Comb.10-Iro 6-27 t} Packet by ity of n-FA-DHA 00:00: mouth [place] (VITAFOL-OB 00 daily. Med[facility] l +DHA) Branch 65-1-250 mg combo pack Prenat Vit 2022-0 Yes [id number] 1{packe Take 1 [facility] Comb.10-Iro 6-27 t} Packet by ity of n-FA-DHA 00:00: mouth [place] (VITAFOL-OB 00 daily. Med[facility] l +DHA) Branch 65-1-250 mg combo pack Prenat Vit 2022-0 Yes [id number] 1{packe Take 1 [facility] Comb.10-Iro 6-27 t} Packet by ity of n-FA-DHA 00:00: mouth [place] (VITAFOL-OB 00 daily. Med[facility] l +DHA) Branch 65-1-250 mg combo pack Prenat Vit 2022-0 Yes [id number] 1{packe Take 1 [facility] Comb.10-Iro 6-27 t} Packet by ity of n-FA-DHA 00:00: mouth [place] (VITAFOL-OB 00 daily. Med[facility] l +DHA) Branch 65-1-250 mg combo pack Prenat Vit 2022-0 Yes [id number] 1{packe Take 1 [facility] Comb.10-Iro 6-27 t} Packet by ity of n-FA-DHA 00:00: mouth [place] (VITAFOL-OB 00 daily. Med[facility] l +DHA) Branch 65-1-250 mg combo pack Prenat Vit 2022-0 Yes [id number] 1{packe Take 1 [facility] Comb.10-Iro 6-27 t} Packet by ity of n-FA-DHA 00:00: mouth [place] (VITAFOL-OB 00 daily. Med[facility] l +DHA) Branch 65-1-250 mg combo pack Prenat Vit 2022-0 Yes [id number] 1{packe Take 1 [facility] Comb.10-Iro 6-27 t} Packet by ity of n-FA-DHA 00:00: mouth [place] (VITAFOL-OB 00 daily. Med[facility] l +DHA) Branch 65-1-250 mg combo pack Prenat Vit 2022-0 Yes [id number] 1{packe Take 1 [facility] Comb.10-Iro 6-27 t} Packet by ity of n-FA-DHA 00:00: mouth [place] (VITAFOL-OB 00 daily. Medica l +DHA) Branch 65-1-250 mg combo pack Prenat Vit 2022-0 Yes [id number] 1{packe Take 1 [facility] Comb.10-Iro 6-27 t} Packet by ity of n-FA-DHA 00:00: mouth [place] (VITAFOL-OB 00 daily. Med[facility] l +DHA) Branch 65-1-250 mg combo pack Prenat Vit 2022-0 Yes [id number] 1{packe Take 1 [facility] Comb.10-Iro 6-27 t} Packet by ity of n-FA-DHA 00:00: mouth [place] (VITAFOL-OB 00 daily. Med[facility] l +DHA) Branch 65-1-250 mg combo pack Prenat Vit 2022-0 Yes [id number] 1{packe Take 1 [facility] Comb.10-Iro 6-27 t} Packet by ity of n-FA-DHA 00:00: mouth [place] (VITAFOL-OB 00 daily. Med[facility] +DHA) Branch 65-1-250 mg combo pack Prenat Vit 2022-0 Yes [id number] 1{packe Take 1 [facility] Comb.10-Iro 6-27 t} Packet by ity of n-FA-DHA 00:00: mouth [place] (VITAFOL-OB 00 daily. Med[facility] l +DHA) Branch 65-1-250 mg combo pack Prenat Vit 2022-0 Yes [id number] 1{packe Take 1 [facility] Comb.10-Iro 6-27 t} Packet by ity of n-FA-DHA 00:00: mouth [place] (VITAFOL-OB 00 daily. Med[facility] l +DHA) Branch 65-1-250 mg combo pack Prenat Vit 2022-0 Yes [id number] 1{packe Take 1 [facility] Comb.10-Iro 6-27 t} Packet by ity of n-FA-DHA 00:00: mouth [place] (VITAFOL-OB 00 daily. Medica l +DHA) Branch 65-1-250 mg combo pack Prenat Vit 2022-0 Yes [id number] 1{packe Take 1 [facility] Comb.10-Iro 6-27 t} Packet by ity of n-FA-DHA 00:00: mouth [place] (VITAFOL-OB 00 daily. Medica l +DHA) Branch 65-1-250 mg combo pack Prenat Vit 2022-0 Yes [id number] 1{packe Take 1 [facility] Comb.10-Iro 6-27 t} Packet by ity of n-FA-DHA 00:00: mouth [place] (VITAFOL-OB 00 daily. Med[facility] l +DHA) Branch 65-1-250 mg combo pack Prenat Vit 2022-0 Yes [id number] 1{packe Take 1 [facility] Comb.10-Iro 6-27 t} Packet by ity of n-FA-DHA 00:00: mouth [place] (VITAFOL-OB 00 daily. Med[facility] l +DHA) Branch 65-1-250 mg combo pack Prenat Vit 2022-0 Yes [id number] 1{packe Take 1 [facility] Comb.10-Iro 6-27 t} Packet by ity of n-FA-DHA 00:00: mouth [place] (VITAFOL-OB 00 daily. Med[facility] l +DHA) Branch 65-1-250 mg combo pack Prenat Vit 2022-0 Yes [id number] 1{packe Take 1 [facility] Comb.10-Iro 6-27 t} Packet by ity of n-FA-DHA 00:00: mouth [place] (VITAFOL-OB 00 daily. Med[facility] l +DHA) Branch 65-1-250 mg combo pack Prenat Vit 2022-0 Yes [id number] 1{packe Take 1 [facility] Comb.10-Iro 6-27 t} Packet by ity of n-FA-DHA 00:00: mouth [place] (VITAFOL-OB 00 daily. Med[facility] l +DHA) Branch 65-1-250 mg combo pack Prenat Vit 2022-0 Yes [id number] 1{packe Take 1 [facility] Comb.10-Iro 6-27 t} Packet by ity of n-FA-DHA 00:00: mouth [place] (VITAFOL-OB 00 daily. Med[facility] l +DHA) Branch 65-1-250 mg combo pack Prenat Vit 2022-0 Yes [id number] 1{packe Take 1 [facility] Comb.10-Iro 6-27 t} Packet by ity of n-FA-DHA 00:00: mouth [place] (VITAFOL-OB 00 daily. Med[facility] l +DHA) Branch 65-1-250 mg combo pack Prenat Vit 2022-0 Yes [id number] 1{packe Take 1 [facility] Comb.10-Iro 6-27 t} Packet by ity of n-FA-DHA 00:00: mouth [place] (VITAFOL-OB 00 daily. Medica l +DHA) Branch 65-1-250 mg combo pack Prenat Vit 2022-0 Yes [id number] 1{packe Take 1 [facility] Comb.10-Iro 6-27 t} Packet by ity of n-FA-DHA 00:00: mouth [place] (VITAFOL-OB 00 daily. Medica l +DHA) Branch 65-1-250 mg combo pack Prenat Vit 2022-0 Yes [id number] 1{packe Take 1 [facility] Comb.10-Iro 6-27 t} Packet by ity of n-FA-DHA 00:00: mouth [place] (VITAFOL-OB 00 daily. Medica l +DHA) Branch 65-1-250 mg combo pack Prenat Vit 2022-0 Yes [id number] 1{packe Take 1 [facility] Comb.10-Iro 6-27 t} Packet by ity of n-FA-DHA 00:00: mouth [place] (VITAFOL-OB 00 daily. Medica l +DHA) Branch 65-1-250 mg combo pack Prenat Vit 2022-0 Yes [id number] 1{packe Take 1 [facility] Comb.10-Iro 6-27 t} Packet by ity of n-FA-DHA 00:00: mouth [place] (VITAFOL-OB 00 daily. Medica l +DHA) Branch 65-1-250 mg combo pack Prenat Vit 2022-0 Yes [id number] 1{packe Take 1 [facility] Comb.10-Iro 6-27 t} Packet by ity of n-FA-DHA 00:00: mouth [place] (VITAFOL-OB 00 daily. Medica l +DHA) Branch 65-1-250 mg combo pack Prenat Vit 2022-0 Yes [id number] 1{packe Take 1 [facility] Comb.10-Iro 6-27 t} Packet by ity of n-FA-DHA 00:00: mouth [place] (VITAFOL-OB 00 daily. Medica l +DHA) Branch 65-1-250 mg combo pack Prenat Vit 2022-0 Yes [id number] 1{packe Take 1 [facility] Comb.10-Iro 6-27 t} Packet by ity of n-FA-DHA 00:00: mouth [place] (VITAFOL-OB 00 daily. Medica l +DHA) Branch 65-1-250 mg combo pack Prenat Vit 2022-0 Yes [id number] 1{packe Take 1 [facility] Comb.10-Iro 6-27 t} Packet by ity of n-FA-DHA 00:00: mouth [place] (VITAFOL-OB 00 daily. Medica l +DHA) Branch 65-1-250 mg combo pack Prenat Vit 2022-0 Yes [id number] 1{packe Take 1 [facility] Comb.10-Iro 6-27 t} Packet by ity of n-FA-DHA 00:00: mouth [place] (VITAFOL-OB 00 daily. Medica l +DHA) Branch 65-1-250 mg combo pack Prenat Vit 2022-0 Yes [id number] 1{packe Take 1 [facility] Comb.10-Iro 6-27 t} Packet by ity of n-FA-DHA 00:00: mouth [place] (VITAFOL-OB 00 daily. Med[facility] l +DHA) Branch 65-1-250 mg combo pack Prenat Vit 2022-0 Yes [id number] 1{packe Take 1 [facility] Comb.10-Iro 6-27 t} Packet by ity of n-FA-DHA 00:00: mouth [place] (VITAFOL-OB 00 daily. Medica l +DHA) Branch 65-1-250 mg combo pack Prenat Vit 2022-0 Yes [id number] 1{packe Take 1 [facility] Comb.10-Iro 6-27 t} Packet by ity of n-FA-DHA 00:00: mouth [place] (VITAFOL-OB 00 daily. Medica l +DHA) Branch 65-1-250 mg combo pack Prenat Vit 2022-0 Yes [id number] 1{packe Take 1 [facility] Comb.10-Iro 6-27 t} Packet by ity of n-FA-DHA 00:00: mouth [place] (VITAFOL-OB 00 daily. Medica l +DHA) Branch 65-1-250 mg combo pack Prenat Vit 2022-0 Yes [id number] 1{packe Take 1 [facility] Comb.10-Iro 6-27 t} Packet by ity of n-FA-DHA 00:00: mouth [place] (VITAFOL-OB 00 daily. Medica l +DHA) Branch 65-1-250 mg combo pack Prenat Vit 2022-0 Yes [id number] 1{packe Take 1 [facility] Comb.10-Iro 6-27 t} Packet by ity of n-FA-DHA 00:00: mouth [place] (VITAFOL-OB 00 daily. Medica l +DHA) Branch 65-1-250 mg combo pack Prenat Vit 2022-0 Yes [id number] 1{packe Take 1 [facility] Comb.10-Iro 6-27 t} Packet by ity of n-FA-DHA 00:00: mouth [place] (VITAFOL-OB 00 daily. Medica l +DHA) Branch 65-1-250 mg combo pack Prenat Vit 2022-0 Yes [id number] 1{packe Take 1 [facility] Comb.10-Iro 6-27 t} Packet by ity of n-FA-DHA 00:00: mouth [place] (VITAFOL-OB 00 daily. Medica l +DHA) Branch 65-1-250 mg combo pack Prenat Vit 2022-0 Yes [id number] 1{packe Take 1 [facility] Comb.10-Iro 6-27 t} Packet by ity of n-FA-DHA 00:00: mouth [place] (VITAFOL-OB 00 daily. Medica l +DHA) Branch 65-1-250 mg combo pack Prenat Vit 2022-0 Yes [id number] 1{packe Take 1 [facility] Comb.10-Iro 6-27 t} Packet by ity of n-FA-DHA 00:00: mouth [place] (VITAFOL-OB 00 daily. Medica l +DHA) Branch 65-1-250 mg combo pack Prenat Vit 2022-0 Yes [id number] 1{packe Take 1 [facility] Comb.10-Iro 6-27 t} Packet by ity of n-FA-DHA 00:00: mouth [place] (VITAFOL-OB 00 daily. Medica l +DHA) Branch 65-1-250 mg combo pack Prenat Vit 2022-0 Yes [id number] 1{packe Take 1 [facility] Comb.10-Iro 6-27 t} Packet by ity of n-FA-DHA 00:00: mouth [place] (VITAFOL-OB 00 daily. Medica l +DHA) Branch 65-1-250 mg combo pack Prenat Vit 2022-0 Yes [id number] 1{packe Take 1 [facility] Comb.10-Iro 6-27 t} Packet by ity of n-FA-DHA 00:00: mouth [place] (VITAFOL-OB 00 daily. Medica l +DHA) Branch 65-1-250 mg combo pack Prenat Vit 2022-0 Yes [id number] 1{packe Take 1 [facility] Comb.10-Iro 6-27 t} Packet by ity of n-FA-DHA 00:00: mouth [place] (VITAFOL-OB 00 daily. Medica l +DHA) Branch 65-1-250 mg combo pack Prenat Vit 2022-0 Yes [id number] 1{packe Take 1 [facility] Comb.10-Iro 6-27 t} Packet by ity of n-FA-DHA 00:00: mouth [place] (VITAFOL-OB 00 daily. Medica l +DHA) Branch 65-1-250 mg combo pack Prenat Vit 2022-0 Yes [id number] 1{packe Take 1 [facility] Comb.10-Iro 6-27 t} Packet by ity of n-FA-DHA 00:00: mouth [place] (VITAFOL-OB 00 daily. Medica l +DHA) Branch 65-1-250 mg combo pack Prenat Vit 2022-0 Yes [id number] 1{packe Take 1 [facility] Comb.10-Iro 6-27 t} Packet by ity of n-FA-DHA 00:00: mouth [place] (VITAFOL-OB 00 daily. Medica l +DHA) Branch 65-1-250 mg combo pack Prenat Vit 2022-0 Yes [id number] 1{packe Take 1 [facility] Comb.10-Iro 6-27 t} Packet by ity of n-FA-DHA 00:00: mouth [place] (VITAFOL-OB 00 daily. Medica l +DHA) Branch 65-1-250 mg combo pack Prenat Vit 2022-0 Yes [id number] 1{packe Take 1 [facility] Comb.10-Iro 6-27 t} Packet by ity of n-FA-DHA 00:00: mouth [place] (VITAFOL-OB 00 daily. Medica l +DHA) Branch 65-1-250 mg combo pack Prenat Vit 2022-0 Yes [id number] 1{packe Take 1 [facility] Comb.10-Iro 6-27 t} Packet by ity of n-FA-DHA 00:00: mouth [place] (VITAFOL-OB 00 daily. Medica l +DHA) Branch 65-1-250 mg combo pack Prenat Vit 2022-0 Yes [id number] 1{packe Take 1 [facility] Comb.10-Iro 6-27 t} Packet by ity of n-FA-DHA 00:00: mouth [place] (VITAFOL-OB 00 daily. Medica l +DHA) Branch 65-1-250 mg combo pack Prenat Vit 2022-0 Yes [id number] 1{packe Take 1 [facility] Comb.10-Iro 6-27 t} Packet by ity of n-FA-DHA 00:00: mouth [place] (VITAFOL-OB 00 daily. Medica l +DHA) Branch 65-1-250 mg combo pack Prenat Vit 2022-0 Yes [id number] 1{packe Take 1 [facility] Comb.10-Iro 6-27 t} Packet by ity of n-FA-DHA 00:00: mouth [place] (VITAFOL-OB 00 daily. Medica l +DHA) Branch 65-1-250 mg combo pack Prenat Vit 2022-0 Yes [id number] 1{packe Take 1 [facility] Comb.10-Iro 6-27 t} Packet by ity of n-FA-DHA 00:00: mouth [place] (VITAFOL-OB 00 daily. Medica l +DHA) Branch 65-1-250 mg combo pack Prenat Vit 2022-0 Yes [id number] 1{packe Take 1 [facility] Comb.10-Iro 6-27 t} Packet by ity of n-FA-DHA 00:00: mouth [place] (VITAFOL-OB 00 daily. Medica l +DHA) Branch 65-1-250 mg combo pack Prenat Vit 2022-0 Yes [id number] 1{packe Take 1 [facility] Comb.10-Iro 6-27 t} Packet by ity of n-FA-DHA 00:00: mouth [place] (VITAFOL-OB 00 daily. Medica l +DHA) Branch 65-1-250 mg combo pack Prenat Vit 2022-0 Yes [id number] 1{packe Take 1 [facility] Comb.10-Iro 6-27 t} Packet by ity of n-FA-DHA 00:00: mouth [place] (VITAFOL-OB 00 daily. Medica l +DHA) Branch 65-1-250 mg combo pack Prenat Vit 2022-0 Yes [id number] 1{packe Take 1 [facility] Comb.10-Iro 6-27 t} Packet by ity of n-FA-DHA 00:00: mouth [place] (VITAFOL-OB 00 daily. Medica l +DHA) Branch 65-1-250 mg combo pack Prenat Vit 2022-0 Yes [id number] 1{packe Take 1 [facility] Comb.10-Iro 6-27 t} Packet by ity of n-FA-DHA 00:00: mouth [place] (VITAFOL-OB 00 daily. Medica l +DHA) Branch 65-1-250 mg combo pack Prenat Vit 2022-0 Yes [id number] 1{packe Take 1 [facility] Comb.10-Iro 6-27 t} Packet by ity of n-FA-DHA 00:00: mouth [place] (VITAFOL-OB 00 daily. Medica l +DHA) Branch 65-1-250 mg combo pack Prenat Vit 2022-0 Yes [id number] 1{packe Take 1 [facility] Comb.10-Iro 6-27 t} Packet by ity of n-FA-DHA 00:00: mouth [place] (VITAFOL-OB 00 daily. Medica l +DHA) Branch 65-1-250 mg combo pack Prenat Vit 2022-0 Yes [id number] 1{packe Take 1 [facility] Comb.10-Iro 6-27 t} Packet by ity of n-FA-DHA 00:00: mouth [place] (VITAFOL-OB 00 daily. Medica l +DHA) Branch 65-1-250 mg combo pack Prenat Vit 2022-0 2023- No [id number] 1{packe Take 1 [facility] Comb.10-Iro 6-27 02-10 t} Packet by it y of n-FA-DHA 00:00: 00:00 mouth [place] (VITAFOL-OB 00 :00 daily. Medica l +DHA) Branch 65-1-250 mg combo pack Prenat Vit 2022- No [id number] 1{packe Take 1 [facility] Comb.10-Iro 6-27 02-10 t} Packet by it y of n-FA-DHA 00:00: 00:00 mouth [place] (VITAFOL-OB 00 :00 daily. Medica l +DHA) Branch 65-1-250 mg combo pack Prenat Vit 2022- No [id number] 1{packe Take 1 [facility] Comb.10-Iro 627 02-10 t} Packet by it y of n-FA-DHA 00:00: 00:00 mouth [place] (VITAFOL-OB 00 :00 daily. Medica l +DHA) Branch 65-1-250 mg combo pack bromphenira 2021- No [id number] 5mL Take 5 mL [facility] mine-pseudo 3-28 06-30 by mouth 4 i ty of ephedrine-D 00:00: 00:00 (four) [place] as M (BROMFED 00 :00 times Medical DM) 2-30-10 daily as Bran ch mg/5 mL needed for syrup Congestion /Allergies . bromphenira 2021- No [id number] 5mL Take 5 mL [facility] mine-pseudo 3-28 06-30 by mouth 4 i ty of ephedrine-D 00:00: 00:00 (four) [place] (BROMFED 00 :00 times Medical DM) 2-30-10 daily as Bran ch mg/5 mL needed for syrup Congestion /Allergies . albuterol 2021- No [id number] 2{puff} Inhale 2 Univers 90 2-26 06-30 Puffs ity of mcg/actuati 00:00: 00:00 every 6 [place] on inhaler 00 :00 (six) Medical hours as Branch needed for Wheezing or Shortness of Breath. cetirizine 2021- No [id number] 10mg Take 1 Univers 10 mg 2-26 06-30 tablet by ity of tablet 00:00: 00:00 mouth [place] 00 :00 daily. Medical Branch fluticasone 2021- No [id number] 2{spray Use 2 [facility] propionate 2-26 06-30 } Sprays in ity of 50 00:00: 00:00 each [place] mcg/actuati 00 :00 nostril Medic al on nasal daily. Branch spray albuterol 2021- No [id number] 2{puff} Inhale 2 [facility] 90 2-26 06-30 Puffs ity of mcg/actuati 00:00: 00:00 every 6 [place] inhaler 00 :00 (six) Medical hours as Branch needed for Wheezing or Shortness of Breath. cetirizine 2021- No [id number] 10mg Take 1 [facility] 10 mg 2- 06-30 tablet by ity of tablet 00:00: 00:00 mouth [place] 00 :00 daily. Medical Branch fluticasone 2021- No [id number] 2{spray Use 2 [facility] propionate 2-26 06-30 } Sprays in ity of 50 00:00: 00:00 each [place] mcg/actuati 00 :00 nostril Medic al on nasal daily. Branch spray fluticasone 2020-08- No [id number] 1{puff} Inhale 1 [facility] propion-ina 1-22 06-30 Puff every i ty of meteroL 00:00: 00:00 12 [place] (ADVAIR 00 :00 (twelve) Medical DISKUS) hours. Branch 250-50 mcg/dose inhalation disk fluticasone 2020-08- No [id number] 1{puff} Inhale 1 [facility] propion-ina 1-22 06-30 Puff every i ty of meteroL 00:00: 00:00 12 [place] (ADVAIR 00 :00 (twelve) Medical DISKUS) hours. Branch 250-50 mcg/dose inhalation disk albuterol 2020-08- No [id number] 2{puff} Inhale 2 [facility] 90 0-06 06-30 Puffs ity of mcg/actuati 00:00: 00:00 every 6 [place] inhaler 00 :00 (six) Medical hours as Branch needed for Wheezing or Shortness of Breath. cetirizine 2020-08- No [id number] 10mg Take 1 Univers (ZYRTEC) 10 0-06 06-30 tablet by it y of mg tablet 00:00: 00:00 mouth [place] 00 :00 daily. Medical Branch fluticasone 2020-08- No [id number] 1{spray Use 1 [facility] propionate 0-06 06-30 } [place] in ity of 50 00:00: 00:00 each [place] mcg/actuati 00 :00 nostril Medic al on nasal daily. Branch spray azelastine 2020-08- No [id number] 1{spray Use 1 [facility] 137 mcg 0-06 06-30 } [place] in ity of (0.1 %) 00:00: 00:00 each [place] nasal spray 00 :00 nostril 2 Med ical (two) Branch times daily. Use in each nostril as directed albuterol 2020-08- No [id number] 2{puff} Inhale 2 [facility] 90 0-06 06-30 Puffs ity of mcg/actuati 00:00: 00:00 every 6 [place] on inhaler 00 :00 (six) Medical hours as Branch needed for Wheezing or Shortness of Breath. cetirizine 2020-08- No [id number] 10mg Take 1 Univers (ZYRTEC) 10 0-06 06-30 tablet by it y of mg tablet 00:00: 00:00 mouth [place] 00 :00 daily. Medical Branch fluticasone 2020-08- No [id number] 1{spray Use 1 [facility] propionate 0-06 06-30 } [place] in ity of 50 00:00: 00:00 each [place] mcg/actuati 00 :00 nostril Medic al on nasal daily. Branch spray azelastine 2020-08- No [id number] 1{spray Use 1 [facility] 137 mcg 0-06 06-30 } [place] in ity of (0.1 %) 00:00: 00:00 each [place] nasal spray 00 :00 nostril 2 Med ical (two) Branch times daily. Use in each nostril as directed Immunizations Ordered Filled Immunization Date Status Comments [facility] e Immunization Name Name Influenza Virus [...] Universit y of Vaccine [facility], 00:00:00 [place] Me dical Preserv and ABX Branch Free 6 MO-64 YRS Influenza Virus 2022-05-02 Completed Universit y of Vaccine [facility] IM, 00:00:00 [place] Me dical Preserv and ABX Branch Free 6 MO-64 YRS Influenza Virus 2022-05-02 Completed Universit y of Vaccine [facility] IM, 00:00:00 [place] Me dical Preserv and ABX Branch Free 6 MO-64 YRS Influenza Virus 2022-05-02 Completed Universit y of Vaccine [facility] IM, 00:00:00 [place] Me dical Preserv and ABX Branch Free 6 MO-64 YRS Influenza Virus 2022-05-02 Completed Universit y of Vaccine [facility] IM, 00:00:00 [place] Me dical Preserv and ABX Branch Free 6 MO-64 YRS Influenza Virus 2022-05-02 Completed Universit y of Vaccine [facility] IM, 00:00:00 [place] Me dical Preserv and ABX Branch Free 6 MO-64 YRS Influenza Virus 2022-05-02 Completed Universit y of Vaccine [facility] IM, 00:00:00 [place] Me dical Preserv and ABX Branch Free 6 MO-64 YRS Influenza Virus 2022-05-02 Completed Universit y of Vaccine [facility] IM, 00:00:00 [place] Me dical Preserv and ABX Branch Free 6 MO-64 YRS Influenza Virus 2022-05-02 Completed Universit y of Vaccine [facility] IM, 00:00:00 [place] Me dical Preserv and ABX Branch Free [...] Universit y of Vaccine [facility] IM, 00:00:00 [place] Me dical Preserv and ABX Branch Free 6 MO-64 YRS Influenza Virus 2022-05-02 Completed Universit y of Vaccine [facility] IM, 00:00:00 [place] Me dical Preserv and ABX Branch Free 6 MO-64 YRS Influenza Virus 2022-05-02 Completed Universit y of Vaccine Quad IM, 00:00:00 [place] Me dical Preserv and ABX Branch Free 6 MO-64 YRS TDAP 2021-01-29 Completed University of 00:00:00 [facility] TDAP 2021-01-29 Completed University of 00:00:00 [facility] TDAP 2021-01-29 Completed University of 00:00:00 [facility] TDAP 2021-01-29 Completed University of 00:00:00 [facility] TDAP 2021-01-29 Completed University of 00:00:00 [facility] TDAP 2021-01-29 Completed University of 00:00:00 [facility] TDAP 2021-01-29 Completed University of 00:00:00 [facility] TDAP 2021-01-29 Completed University of 00:00:00 [facility] TDAP 2021-01-29 Completed University of 00:00:00 [facility] TDAP 2021-01-29 Completed University of 00:00:00 [facility] TDAP 2021-01-29 Completed University of 00:00:00 [facility] TDAP 2021-01-29 Completed University of 00:00:00 [facility] TDAP 2021-01-29 Completed University [facility] 00[facility]00:00 [facility] TDAP 2021-01-29 Completed [facility] 00:00:00 [facility] TDAP 2021-01-29 Completed [facility] 00[facility]00:00 [facility] TDAP 2021-01-29 Completed [facility] 00:00:00 [facility] TDAP 2021-01-29 Completed [facility] 00:00:00 [facility] TDAP 2021-01-29 Completed [facility] 00:00:00 [facility] TDAP 2021-01-29 Completed [facility] 00:00:00 [facility] TDAP 2021-01-29 Completed [facility] 00:00:00 [facility] TDAP 2021-01-29 Completed [facility] 00:00:00 [facility] TDAP 2021-01-29 Completed [facility] 00:00:00 [facility] TDAP 2021-01-29 Completed [facility] 00:00:00 [facility] TDAP 2021-01-29 Completed [facility] 00:00:00 [facility] TDAP 2021-01-29 Completed [facility] 00:00:00 [facility] TDAP 2021-01-29 Completed [facility] 00:00:00 [facility] TDAP 2021-01-29 Completed [facility] 00:00:00 [facility] TDAP 2021-01-29 Completed [facility] 00:00:00 [facility] TDAP 2021-01-29 Completed [facility] 00[facility]00:00 [facility] TDAP 2021-01-29 Completed [facility] 00[facility]00:00 [facility] TDAP 2021-01-29 Completed [facility] 00:00:00 [facility] TDAP 2021-01-29 Completed [facility] 00:00:00 [facility] TDAP 2021-01-29 Completed [facility] 00:00:00 [facility] TDAP 2021-01-29 Completed [facility] 00:00:00 [facility] TDAP 2021-01-29 Completed [facility] 00:00:00 [facility] TDAP 2021-01-29 Completed [facility] 00[facility]00:00 [facility] TDAP 2021-01-29 Completed [facility] 00[facility]00:00 [facility] TDAP 2021-01-29 Completed [facility] 00:00:00 [facility] TDAP 2021-01-29 Completed [facility] 00:00:00 [facility] TDAP 2021-01-29 Completed [facility] 00[facility]00:00 [facility] TDAP 2021-01-29 Completed [facility] 00:00:00 [facility] TDAP 2021-01-29 Completed [facility] 00:00:00 [facility] TDAP 2021-01-29 Completed [facility] 00:00:00 [facility] TDAP 2021-01-29 Completed [facility] 00:00:00 [facility] TDAP 2021-01-29 Completed [facility] 00[facility]00:00 [facility] TDAP 2021-01-29 Completed [facility] 00:00:00 [facility] TDAP 2021-01-29 Completed [facility] 00:00:00 [facility] TDAP 2021-01-29 Completed [facility] 00:00:00 [facility] TDAP 2021-01-29 Completed [facility] 00:00:00 [facility] TDAP 2021-01-29 Completed [facility] 00:00:00 [facility] TDAP 2021-01-29 Completed [facility] 00:00:00 [facility] TDAP 2021-01-29 Completed [facility] 00:00:00 [facility] TDAP 2021-01-29 Completed [facility] 00[facility]00:00 [facility] TDAP 2021-01-29 Completed [facility] 00:00:00 [facility] TDAP 2021-01-29 Completed [facility] 00:00:00 [facility] TDAP 2021-01-29 Completed [facility] 00:00:00 [facility] TDAP 2021-01-29 Completed [facility] 00:00:00 [facility] TDAP 2021-01-29 Completed [facility] 00:00:00 [facility] TDAP 2021-01-29 Completed [facility] 00[facility]00:00 [facility] TDAP 2021-01-29 Completed [facility] 00:00:00 [facility] TDAP 2021-01-29 Completed [facility] 00[facility]00:00 [facility] TDAP 2021-01-29 Completed [facility] 00[facility]00:00 [facility] TDAP 2021-01-29 Completed [facility] 00:00:00 [facility] TDAP 2021-01-29 Completed [facility] 00[facility]00:00 [facility] TDAP 2021-01-29 Completed [facility] 00[facility]00:00 [facility] TDAP 2021-01-29 Completed [facility] 00:00:00 [facility] TDAP 2021-01-29 Completed [facility] 00:00:00 [facility] TDAP 2021-01-29 Completed [facility] 00:00:00 [facility] TDAP 2021-01-29 Completed [facility] 00[facility]00:00 [facility] TDAP 2021-01-29 Completed [facility] 00:00:00 [facility] TDAP 2021-01-29 Completed [facility] 00:00:00 [facility] TDAP 2021-01-29 Completed [facility] 00[facility]00:00 [facility] TDAP 2021-01-29 Completed [facility] 00[facility]00:00 [facility] TDAP 2021-01-29 Completed [facility] 00:00:00 [facility] TDAP 2021-01-29 Completed [facility] 00:00:00 [facility] TDAP 2021-01-29 Completed [facility] 00:00:00 [facility] TDAP 2021-01-29 Completed [facility] 00:00:00 [facility] TDAP 2021-01-29 Completed [facility] 00:00:00 [facility] TDAP 2021-01-29 Completed [facility] 00:00:00 [facility] TDAP 2021-01-29 Completed [facility] 00[facility]00:00 [facility] TDAP 2021-01-29 Completed [facility] 00[facility]00:00 [facility] TDAP 2021-01-29 Completed [facility] 00:00:00 [facility] TDAP 2021-01-29 Completed [facility] 00[facility]00:00 [facility] TDAP 2021-01-29 Completed [facility] 00:00:00 [facility] TDAP 2021-01-29 Completed [facility] 00:00:00 [facility] TDAP 2021-01-29 Completed [facility] 00:00:00 [facility] TDAP 2021-01-29 Completed [facility] 00[facility]00:00 [facility] TDAP 2021-01-29 Completed [facility] 00:00:00 [facility] TDAP 2021-01-29 Completed [facility] 00:00:00 [facility] TDAP 2021-01-29 Completed [facility] 00:00:00 [facility] TDAP 2021-01-29 Completed [facility] 00[facility]00:00 [facility] TDAP 2021-01-29 Completed [facility] 00[facility]00:00 [facility] TDAP 2021-01-29 Completed [facility] 00:00:00 [facility] TDAP 2021-01-29 Completed [facility] 00:00:00 [facility] TDAP 2021-01-29 Completed [facility] 00[facility]00:00 [facility] TDAP 2021-01-29 Completed [facility] 00:00:00 [facility] TDAP 2021-01-29 Completed [facility] 00:00:00 [facility] TDAP 2021-01-29 Completed [facility] 00[facility]00:00 [facility] TDAP 2021-01-29 Completed [facility] 00:00:00 [facility] TDAP 2021-01-29 Completed [facility] 00:00:00 [facility] TDAP 2021-01-29 Completed [facility] 00:00:00 [facility] TDAP 2021-01-29 Completed [facility] 00:00:00 [facility] TDAP 2021-01-29 Completed [facility] 00:00:00 [facility] TDAP 2021-01-29 Completed [facility] 00:00:00 [facility] TDAP 2021-01-29 Completed [facility] 00:00:00 [facility] TDAP 2021-01-29 Completed [facility] 00[facility]00:00 [facility] TDAP 2021-01-29 Completed [facility] 00:00:00 [facility] TDAP 2021-01-29 Completed [facility] 00[facility]00:00 [facility] TDAP 2021-01-29 Completed [facility] 00:00:00 [facility] TDAP 2021-01-29 Completed [facility] 00:00:00 [facility] TDAP 2021-01-29 Completed [facility] 00[facility]00:00 [facility] TDAP 2021-01-29 Completed [facility] 00:00:00 [facility] TDAP 2021-01-29 Completed [facility] 00:00:00 [facility] TDAP 2021-01-29 Completed [facility] 00:00:00 [facility] TDAP 2021-01-29 Completed [facility] 00[facility]00:00 [facility] TDAP 2021-01-29 Completed [facility] 00:00:00 [facility] TDAP 2021-01-29 Completed [facility] 00[facility]00:00 [facility] TDAP 2021-01-29 Completed [facility] 00:00:00 [facility] TDAP 2021-01-29 Completed [facility] 00:00:00 [facility] TDAP 2021-01-29 Completed [facility] 00:00:00 [facility] TDAP 2021-01-29 Completed [facility] 00[facility]00:00 [facility] TDAP 2021-01-29 Completed [facility] 00:00:00 [facility] TDAP 2021-01-29 Completed [facility] 00:00:00 [facility] TDAP 2021-01-29 Completed [facility] 00[facility]00:00 [facility] TDAP 2021-01-29 Completed [facility] 00[facility]00:00 [facility] TDAP 2021-01-29 Completed [facility] 00:00:00 [facility] TDAP 2021-01-29 Completed [facility] 00[facility]00:00 [facility] TDAP 2021-01-29 Completed [facility] 00:00:00 [facility] TDAP 2021-01-29 Completed [facility] 00:00:00 [facility] TDAP 2021-01-29 Completed [facility] 00:00:00 [facility] TDAP 2021-01-29 Completed [facility] 00:00:00 [facility] TDAP 2021-01-29 Completed [facility] 00:00:00 [facility] TDAP 2021-01-29 Completed [facility] 00:00:00 [facility] TDAP 2021-01-29 Completed [facility] 00:00:00 [facility] TDAP 2021-01-29 Completed [facility] 00:00:00 [facility] [place] TDAP 2021-01-29 Completed [facility] 00:00:00 [facility] TDAP 2021-01-29 Completed [facility] 00:00:00 [facility] TDAP 2021-01-29 Completed [facility] 00[facility]00:00 [facility] TDAP 2021-01-29 Completed [facility] 00:00:00 [facility] TDAP 2021-01-29 Completed [facility] 00:00:00 [facility] Influenza Virus 2018-09-27 Completed [facility] mL 00:00:00 [facility] Influenza Virus 2018-09-27 Completed [facility]5 mL 00:00:00 [facility] Influenza Virus [...] y [facility] .5 mL 00:00:00 [facility] Influenza Virus [...] y [facility] .5 mL 00:00:00 [facility] Influenza Virus 2018-09-27 Completed [facility]5 mL 00:00:00 [facility] Influenza Virus 2018-09-27 Completed [facility]5 mL 00:00:00 [facility] Influenza Virus 2018-09-27 Completed [facility]5 mL 00:00:00 [facility] Influenza Virus 2018-09-27 Completed [facility]5 mL 00:00:00 [facility] Influenza Virus 2018-09-27 Completed [facility]5 mL 00:00:00 [facility] Influenza Virus 2018-09-27 Completed [facility] .5 mL 00:00:00 [facility] Influenza Virus 2018-09-27 Completed [facility]5 mL 00:00:00 [facility] Influenza Virus 2018-09-27 Completed [facility]5 mL 00:00:00 [facility] Influenza Virus 2018-09-27 Completed [facility]5 mL 00:00:00 [facility] Influenza Virus 2018-09-27 Completed [facility]5 mL 00:00:00 [facility] Influenza Virus 2018-09-27 Completed [facility]5 mL 00:00:00 [facility] Influenza Virus 2018-09-27 [...] y [facility] .5 mL 00:00:00 [facility] Influenza Virus [...] y [facility] .5 mL 00:00:00 [facility] Influenza Virus 2018-09-27 Completed [facility]5 mL 00:00:00 [facility] Influenza Virus 2018-09-27 Completed [facility]5 mL 00:00:00 [facility] Influenza Virus 2018-09-27 Completed [facility]5 mL 00:00:00 [facility] Influenza Virus 2018-09-27 Completed [facility]5 mL 00:00:00 [facility] Influenza Virus 2018-09-27 Completed [facility]5 mL 00:00:00 [facility] Influenza Virus [...] y [facility] .5 mL 00:00:00 [facility] Influenza Virus 2018-09-27 Completed [facility]5 mL 00:00:00 [facility] Influenza Virus 2018-09-27 Completed [facility]5 mL 00:00:00 [facility] Influenza Virus 2018-09-27 Completed [facility]5 mL 00:00:00 [facility] Influenza Virus 2018-09-27 Completed [facility] .5 mL 00:00:00 [facility] Influenza Virus [...] y of [facility] .5 mL 00:00:00 [facility] Influenza Virus 2018-09-27 Completed [facility] .5 mL 00:00:00 [facility] Influenza Virus 2018-09-27 Completed [facility] .5 mL 00:00:00 [facility] Influenza Virus 2018-09-27 Completed [facility] .5 mL 00:00:00 [facility] Influenza Virus 2018-09-27 Completed [facility] .5 mL 00:00:00 [facility] Influenza Virus 2018-09-27 Completed [facility] .5 mL 00:00:00 [facility] Influenza Virus 2018-09-27 Completed [facility] .5 mL 00:00:00 [facility] Influenza Virus 2018-09-27 Completed [facility] .5 mL 00:00:00 [facility] Influenza Virus 2018-09-27 Completed [facility] .5 mL 00:00:00 [facility] Influenza Virus 2018-09-27 Completed [facility] .5 mL 00:00:00 [facility] Influenza Virus 2018-09-27 Completed [facility]5 mL 00:00:00 [facility] Influenza Virus 2018-09-27 Completed [facility]5 mL 00:00:00 [facility] Influenza Virus [...] y of [facility] .5 mL 00:00:00 [facility] Influenza Virus 2018-09-27 Completed [facility]5 mL 00:00:00 [facility] Influenza Virus 2018-09-27 Completed [facility] .5 mL 00:00:00 [facility] Influenza Virus 2018-09-27 Completed [facility]5 mL 00:00:00 [facility] Influenza Virus 2018-09-27 Completed [facility] .5 mL 00:00:00 [facility] Influenza Virus 2018-09-27 Completed [facility] .5 mL 00:00:00 [facility] Influenza Virus 2018-09-27 Completed [facility] .5 mL 00:00:00 [facility] Influenza Virus 2018-09-27 Completed [facility] .5 mL 00:00:00 [facility] Influenza Virus 2018-09-27 Completed [facility]5 mL 00:00:00 [facility] Influenza Virus 2018-09-27 Completed [facility] .5 mL 00:00:00 [facility] Influenza Virus 2018-09-27 Completed [facility]5 mL 00:00:00 [facility] Influenza Virus 2018-09-27 Completed [facility] .5 mL 00:00:00 [facility] Influenza Virus [...] y of [facility] .5 mL 00:00:00 [facility] Influenza Virus 2018-09-27 Completed [facility]5 mL 00:00:00 [facility] Influenza Virus 2018-09-27 Completed [facility] .5 mL 00:00:00 [facility] Influenza Virus 2018-09-27 Completed [facility] .5 mL 00:00:00 [facility] Influenza Virus [...] y of [facility] .5 mL 00:00:00 [facility] Influenza Virus 2018-09-27 Completed [facility] .5 mL 00:00:00 [facility] Influenza Virus 2018-09-27 Completed [facility] .5 mL 00:00:00 [facility] Influenza Virus 2018-09-27 Completed [facility] .5 mL 00:00:00 [facility] Influenza Virus 2018-09-27 Completed [facility] .5 mL 00:00:00 [facility] Influenza Virus 2018-09-27 Completed [facility] .5 mL 00:00:00 [facility] Influenza Virus 2018-09-27 Completed [facility] .5 mL 00:00:00 [facility] Influenza Virus [...] y [facility] .5 mL 00:00:00 [facility] Influenza Virus [...] y of [facility] .5 mL 00:00:00 [facility] Influenza Virus 2018-09-27 Completed [facility] .5 mL 00:00:00 [facility] Influenza Virus 2018-09-27 Completed [facility] .5 mL 00:00:00 [facility] Influenza Virus 2018-09-27 Completed [facility]5 mL 00:00:00 [facility] Influenza Virus 2018-09-27 Completed [facility] .5 mL 00:00:00 [facility] Influenza Virus 2018-09-27 Completed [facility] .5 mL 00:00:00 [facility] Influenza Virus 2016-10-20 Completed [facility] IM 3+ 00:00:00 [facility] Influenza Virus 2016-10-20 Completed [facility] IM 3+ 00:00:00 [facility] Influenza Virus 2016-10-20 Completed [facility] IM 3+ 00:00:00 [facility] Influenza Virus 2016-10-20 Completed [facility] IM 3+ 00:00:00 [facility] Influenza Virus 2016-10-20 Completed [facility] 3+ 00:00:00 [facility] Influenza Virus 2016-10-20 Completed [facility] 3+ 00:00:00 [facility] Influenza Virus 2016-10-20 Completed [facility] IM 3+ 00:00:00 [facility] Influenza Virus 2016-10-20 Completed [facility] IM 3+ 00:00:00 [facility] Influenza Virus 2016-10-20 Completed [facility] IM 3+ 00:00:00 [facility] Influenza Virus 2016-10-20 Completed [facility] 3+ 00:00:00 [facility] Influenza Virus 2016-10-20 Completed [facility] IM 3+ 00:00:00 [facility] Influenza Virus 2016-10-20 Completed [facility] IM 3+ 00:00:00 [facility] Influenza Virus 2016-10-20 Completed [facility] IM 3+ 00:00:00 [facility] Influenza Virus 2016-10-20 Completed [facility] IM 3+ 00:00:00 [facility] Influenza Virus 2016-10-20 Completed [facility] IM 3+ 00:00:00 [facility] Influenza Virus 2016-10-20 Completed [facility] IM 3+ 00:00:00 [facility] Influenza Virus 2016-10-20 Completed [facility] IM 3+ 00:00:00 [facility] Influenza Virus 2016-10-20 Completed [facility] IM 3+ 00:00:00 [facility] Influenza Virus 2016-10-20 Completed [facility] IM 3+ 00:00:00 [facility] Influenza Virus 2016-10-20 Completed [facility] IM 3+ 00:00:00 [facility] Influenza Virus 2016-10-20 Completed [facility] IM 3+ 00:00:00 [facility] Influenza Virus 2016-10-20 Completed [facility] IM 3+ 00:00:00 [facility] Influenza Virus 2016-10-20 Completed [facility] IM 3+ 00:00:00 [facility] Influenza Virus 2016-10-20 Completed [facility] IM 3+ 00:00:00 [facility] Influenza Virus 2016-10-20 Completed [facility] IM 3+ 00:00:00 [facility] Influenza Virus 2016-10-20 Completed [facility] IM 3+ 00:00:00 [facility] Influenza Virus 2016-10-20 Completed [facility] IM 3+ 00:00:00 [facility] Influenza Virus 2016-10-20 Completed [facility] IM 3+ 00:00:00 [facility] Influenza Virus 2016-10-20 Completed [facility] IM 3+ 00:00:00 [facility] Influenza Virus 2016-10-20 Completed [facility] 3+ 00:00:00 [facility] Influenza Virus 2016-10-20 Completed [facility] 3+ 00:00:00 [facility] Influenza Virus 2016-10-20 Completed [facility] 3+ 00:00:00 [facility] Influenza Virus 2016-10-20 Completed [facility] 3+ 00:00:00 [facility] Influenza Virus 2016-10-20 Completed [facility] 3+ 00:00:00 [facility] Influenza Virus 2016-10-20 Completed [facility] 3+ 00:00:00 [facility] Influenza Virus 2016-10-20 Completed [facility] 3+ 00:00:00 [facility] Influenza Virus 2016-10-20 Completed [facility] IM 3+ 00:00:00 [facility] Influenza Virus 2016-10-20 Completed [facility] IM 3+ 00:00:00 [facility] Influenza Virus 2016-10-20 Completed [facility] IM 3+ 00:00:00 [facility] Influenza Virus 2016-10-20 Completed [facility] 3+ 00:00:00 [facility] Influenza Virus 2016-10-20 Completed [facility] 3+ 00:00:00 [facility] Influenza Virus 2016-10-20 Completed [facility] 3+ 00:00:00 [facility] Influenza Virus 2016-10-20 Completed [facility] 3+ 00:00:00 [facility] Influenza Virus 2016-10-20 Completed [facility] 3+ 00:00:00 [facility] Influenza Virus 2016-10-20 Completed [facility] 3+ 00:00:00 [facility] Influenza Virus 2016-10-20 Completed [facility] 3+ 00:00:00 [facility] Influenza Virus 2016-10-20 Completed [facility] 3+ 00:00:00 [facility] Influenza Virus 2016-10-20 Completed [facility] 3+ 00:00:00 [facility] Influenza Virus 2016-10-20 Completed [facility] 3+ 00:00:00 [facility] Influenza Virus 2016-10-20 Completed [facility] 3+ 00:00:00 [facility] Influenza Virus 2016-10-20 Completed [facility] 3+ 00:00:00 [facility] Influenza Virus 2016-10-20 Completed [facility] 3+ 00:00:00 [facility] Influenza Virus 2016-10-20 Completed [facility] 3+ 00:00:00 [facility] Influenza Virus 2016-10-20 Completed [facility] 3+ 00:00:00 [facility] Influenza Virus 2016-10-20 Completed [facility] 3+ 00:00:00 [facility] Influenza Virus 2016-10-20 Completed [facility] 3+ 00:00:00 [facility] Influenza Virus 2016-10-20 Completed [facility] 3+ 00:00:00 [facility] Influenza Virus 2016-10-20 Completed [facility] 3+ 00:00:00 [facility] Influenza Virus 2016-10-20 Completed [facility] 3+ 00:00:00 [facility] Influenza Virus 2016-10-20 Completed [facility] 3+ 00:00:00 [facility] Influenza Virus 2016-10-20 Completed [facility] 3+ 00:00:00 [facility] Influenza Virus 2016-10-20 Completed [facility] 3+ 00:00:00 [facility] Influenza Virus 2016-10-20 Completed [facility] 3+ 00:00:00 [facility] Influenza Virus 2016-10-20 Completed [facility] 3+ 00:00:00 [facility] Influenza Virus 2016-10-20 Completed [facility] 3+ 00:00:00 [facility] Influenza Virus 2016-10-20 Completed [facility] IM 3+ 00:00:00 [facility] Influenza Virus 2016-10-20 Completed [facility] IM 3+ 00:00:00 [facility] Influenza Virus 2016-10-20 Completed [facility] 3+ 00:00:00 [facility] Influenza Virus 2016-10-20 Completed [facility] 3+ 00:00:00 [facility] Influenza Virus 2016-10-20 Completed [facility] 3+ 00:00:00 [facility] Influenza Virus 2016-10-20 Completed [facility] 3+ 00:00:00 [facility] Influenza Virus 2016-10-20 Completed [facility] 3+ 00:00:00 [facility] Influenza Virus 2016-10-20 Completed [facility] [facility] Influenza Virus 2016-10-20 Completed [facility]ine [facility] IM 3+ 00:00:00 [facility] Influenza Virus 2016-10-20 Completed [facility]ine [facility] IM 3+ 00:00:00 [facility] Influenza Virus 2016-10-20 Completed [facility] Vaccine [facility] IM 3+ 00:00:00 [facility] Influenza Virus 2016-10-20 Completed [facility]ine [facility] IM 3+ 00:00:00 [facility] Influenza Virus 2016-10-20 Completed [facility]ine [facility] IM 3+ 00:00:00 [facility] Influenza Virus 2016-10-20 Completed [facility]ine [facility] IM 3+ 00:00:00 [facility] Influenza Virus 2016-10-20 Completed [facility]ine [facility] IM 3+ 00:00:00 [facility] Influenza Virus 2016-10-20 Completed [facility]ine [facility] IM 3+ 00:00:00 [facility] Influenza Virus 2016-10-20 Completed [facility]ine [facility] IM 3+ 00:00:00 [facility] Influenza Virus 2016-10-20 Completed [facility] Vaccine [facility] IM 3+ 00:00:00 [facility] Influenza Virus 2016-10-20 Completed [facility] Vaccine [facility] IM 3+ 00:00:00 [facility] Influenza Virus 2016-10-20 Completed [facility] Vaccine [facility] IM 3+ 00:00:00 [facility] Influenza Virus 2016-10-20 Completed [facility] Vaccine [facility] IM 3+ 00:00:00 [facility] Influenza Virus 2016-10-20 Completed [facility] Vaccine [facility] IM 3+ 00:00:00 [facility] Influenza Virus 2016-10-20 Completed [facility] Vaccine [facility] IM 3+ 00:00:00 [facility] Influenza Virus 2016-10-20 Completed [facility] Vaccine [facility] IM 3+ 00:00:00 [facility] Influenza Virus 2016-10-20 Completed [facility] Vaccine [facility] IM 3+ 00:00:00 [facility] Influenza Virus 2016-10-20 Completed [facility] Vaccine [facility] IM 3+ 00:00:00 [facility] Influenza Virus 2016-10-20 Completed [facility] Vaccine [facility] IM 3+ 00:00:00 [facility] Influenza Virus 2016-10-20 Completed [facility] Vaccine [facility] IM 3+ 00:00:00 [facility] Influenza Virus 2016-10-20 Completed [facility] Vaccine [facility] IM 3+ 00:00:00 [facility] Influenza Virus 2016-10-20 Completed [facility] Vaccine [facility] IM 3+ 00:00:00 [facility] Influenza Virus 2016-10-20 Completed [facility] Vaccine [facility] IM 3+ 00:00:00 [facility] Influenza Virus 2016-10-20 Completed [facility] Vaccine [facility] IM 3+ 00:00:00 [facility] Influenza Virus 2016-10-20 Completed [facility] Vaccine [facility] IM 3+ 00:00:00 [facility] Influenza Virus 2016-10-20 Completed [facility] Vaccine [facility] IM 3+ 00:00:00 [facility] Influenza Virus 2016-10-20 Completed [facility] Vaccine [facility] IM 3+ 00:00:00 [facility] Influenza Virus 2016-10-20 Completed [facility] Vaccine [facility] IM 3+ 00:00:00 [facility] Influenza Virus 2016-10-20 Completed [facility] Vaccine [facility] IM 3+ 00:00:00 [facility] Influenza Virus 2016-10-20 Completed [facility] Vaccine [facility] IM 3+ 00:00:00 [facility] Influenza Virus 2016-10-20 Completed [facility] Vaccine [facility] IM 3+ 00:00:00 [facility] Influenza Virus 2016-10-20 Completed [facility] Vaccine [facility] IM 3+ 00:00:00 [facility] Influenza Virus 2016-10-20 Completed [facility] Vaccine [facility] IM 3+ 00:00:00 [facility] Influenza Virus 2016-10-20 Completed [facility] Vaccine [facility] IM 3+ 00:00:00 [facility] Influenza Virus 2016-10-20 Completed [facility] Vaccine [facility] IM 3+ 00:00:00 [facility] Influenza Virus 2016-10-20 Completed [facility] Vaccine [facility] IM 3+ 00:00:00 [facility] Influenza Virus 2016-10-20 Completed [facility] Vaccine [facility] IM 3+ 00:00:00 [facility] Influenza Virus 2016-10-20 Completed [facility] Vaccine [facility] IM 3+ 00:00:00 [facility] Influenza Virus 2016-10-20 Completed [facility] Vaccine [facility] IM 3+ 00:00:00 [facility] Influenza Virus 2016-10-20 Completed [facility] Vaccine [facility] IM 3+ 00:00:00 [facility] Influenza Virus 2016-10-20 Completed [facility] Vaccine [facility] IM 3+ 00:00:00 [facility] Influenza Virus 2016-10-20 Completed [facility] Vaccine [facility] IM 3+ 00:00:00 [facility] Influenza Virus 2016-10-20 Completed [facility] Vaccine Quad IM 3+ 00:00:00 [facility] Influenza Virus 2016-10-20 Completed [facility] Vaccine [facility] IM 3+ 00:00:00 [facility] Influenza Virus 2016-10-20 Completed [facility] Vaccine [facility] IM 3+ 00:00:00 [facility] Influenza Virus 2016-10-20 Completed [facility] Vaccine Quad IM 3+ 00:00:00 [facility] Influenza Virus 2016-10-20 Completed [facility] Vaccine Quad IM 3+ 00:00:00 [facility] Influenza Virus 2016-10-20 Completed [facility] Vaccine Quad IM 3+ 00:00:00 [facility] Influenza Virus 2016-10-20 Completed [facility] Vaccine Quad IM 3+ 00:00:00 [facility] Influenza Virus 2016-10-20 Completed [facility] Vaccine [facility] IM 3+ 00:00:00 [facility] Influenza Virus 2016-10-20 Completed [facility] Vaccine Quad IM 3+ 00:00:00 [facility] Influenza Virus 2016-10-20 Completed [facility] Vaccine Quad IM 3+ 00:00:00 [facility] Influenza Virus 2016-10-20 Completed [facility] Vaccine Quad IM 3+ 00:00:00 [facility] Influenza Virus 2016-10-20 Completed [facility] Vaccine Quad IM 3+ 00:00:00 [facility] Influenza Virus 2016-10-20 Completed [facility] Vaccine Quad IM 3+ 00:00:00 [facility] Influenza Virus 2016-10-20 Completed [facility] Vaccine [facility] IM 3+ 00:00:00 [facility] Influenza Virus 2016-10-20 Completed [facility] Vaccine Quad IM 3+ 00:00:00 [facility] Influenza Virus 2016-10-20 Completed [facility] Vaccine [facility] IM 3+ 00:00:00 [facility] Influenza Virus 2016-10-20 Completed [facility] Vaccine [facility] IM 3+ 00:00:00 [facility] Influenza Virus 2016-10-20 Completed [facility] Vaccine Quad IM 3+ 00:00:00 [facility] Influenza Virus 2016-10-20 Completed [facility] Vaccine [facility] IM 3+ 00:00:00 [facility] Influenza Virus 2016-10-20 Completed [facility] Vaccine [facility] IM 3+ 00:00:00 [facility] Influenza Virus 2016-10-20 Completed [facility] Vaccine Quad IM 3+ 00:00:00 [facility] Influenza Virus 2016-10-20 Completed [facility] Vaccine Quad IM 3+ 00:00:00 [facility] Influenza Virus 2016-10-20 Completed [facility] Vaccine Quad IM 3+ 00:00:00 [facility] Influenza Virus 2016-10-20 Completed [facility] Vaccine Quad IM 3+ 00:00:00 [facility] Influenza Virus 2016-10-20 Completed [facility] Vaccine Quad IM 3+ 00:00:00 [facility] TDAP 2015-01-29 Completed [facility] 00:00:00 [facility] TDAP 2015-01-29 Completed [facility] 00:00:00 [facility] TDAP 2015-01-29 Completed [facility] 00:00:00 [facility] TDAP 2015-01-29 Completed [facility] 00:00:00 [facility] TDAP 2015-01-29 Completed [facility] 00:00:00 [facility] TDAP 2015-01-29 Completed [facility] 00:00:00 [facility] TDAP 2015-01-29 Completed [facility] 00:00:00 [facility] TDAP 2015-01-29 Completed [facility] 00:00:00 [facility] TDAP 2015-01-29 Completed [facility] 00:00:00 [facility] TDAP 2015-01-29 Completed [facility] 00:00:00 [facility] TDAP 2015-01-29 Completed [facility] 00:00:00 [facility] TDAP 2015-01-29 Completed [facility] 00:00:00 [facility] TDAP 2015-01-29 Completed [facility] 00:00:00 [facility] TDAP 2015-01-29 Completed [facility] 00:00:00 [facility] TDAP 2015-01-29 Completed [facility] 00:00:00 [facility] TDAP 2015-01-29 Completed [facility] 00:00:00 [facility] TDAP 2015-01-29 Completed [facility] 00:00:00 [facility] TDAP 2015-01-29 Completed [facility] 00:00:00 [facility] TDAP 2015-01-29 Completed [facility] 00:00:00 [facility] TDAP 2015-01-29 Completed [facility] 00:00:00 [facility] TDAP 2015-01-29 Completed [facility] 00:00:00 [facility] TDAP 2015-01-29 Completed [facility] 00:00:00 [facility] TDAP 2015-01-29 Completed [facility] 00:00:00 [facility] TDAP 2015-01-29 Completed [facility] 00:00:00 [facility] TDAP 2015-01-29 Completed [facility] 00:00:00 [facility] TDAP 2015-01-29 Completed [facility] 00:00:00 [facility] TDAP 2015-01-29 Completed [facility] 00:00:00 [facility] TDAP 2015-01-29 Completed [facility] 00:00:00 [facility] TDAP 2015-01-29 Completed [facility] 00:00:00 [facility] TDAP 2015-01-29 Completed [facility] 00:00:00 [facility] TDAP 2015-01-29 Completed [facility] 00:00:00 [facility] TDAP 2015-01-29 Completed [facility] 00:00:00 [facility] TDAP 2015-01-29 Completed [facility] 00:00:00 [facility] TDAP 2015-01-29 Completed [facility] 00:00:00 [facility] TDAP 2015-01-29 Completed [facility] 00:00:00 [facility] TDAP 2015-01-29 Completed [facility] 00:00:00 [facility] TDAP 2015-01-29 Completed [facility] 00:00:00 [facility] TDAP 2015-01-29 Completed [facility] 00:00:00 [facility] TDAP 2015-01-29 Completed [facility] 00:00:00 [facility] TDAP 2015-01-29 Completed [facility] 00:00:00 [facility] TDAP 2015-01-29 Completed [facility] 00:00:00 [facility] TDAP 2015-01-29 Completed [facility] 00:00:00 [facility] TDAP 2015-01-29 Completed [facility] 00:00:00 [facility] TDAP 2015-01-29 Completed [facility] 00:00:00 [facility] TDAP 2015-01-29 Completed [facility] 00:00:00 [facility] TDAP 2015-01-29 Completed [facility] 00:00:00 [facility] TDAP 2015-01-29 Completed [facility] 00:00:00 [facility] TDAP 2015-01-29 Completed [facility] 00:00:00 [facility] TDAP 2015-01-29 Completed [facility] 00:00:00 [facility] TDAP 2015-01-29 Completed [facility] 00:00:00 [facility] TDAP 2015-01-29 Completed [facility] 00:00:00 [facility] TDAP 2015-01-29 Completed [facility] 00:00:00 [facility] TDAP 2015-01-29 Completed [facility] 00:00:00 [facility] TDAP 2015-01-29 Completed [facility] 00:00:00 [facility] TDAP 2015-01-29 Completed [facility] 00:00:00 [facility] TDAP 2015-01-29 Completed [facility] 00:00:00 [facility] TDAP 2015-01-29 Completed [facility] 00:00:00 [facility] TDAP 2015-01-29 Completed [facility] 00:00:00 [facility] TDAP 2015-01-29 Completed [facility] 00:00:00 [facility] TDAP 2015-01-29 Completed [facility] 00:00:00 [facility] TDAP 2015-01-29 Completed [facility] 00:00:00 [facility] TDAP 2015-01-29 Completed [facility] 00:00:00 [facility] TDAP 2015-01-29 Completed [facility] 00:00:00 [facility] TDAP 2015-01-29 Completed [facility] 00:00:00 [facility] TDAP 2015-01-29 Completed [facility] 00:00:00 [facility] TDAP 2015-01-29 Completed [facility] 00:00:00 [facility] TDAP 2015-01-29 Completed [facility] 00:00:00 [facility] TDAP 2015-01-29 Completed [facility] 00:00:00 [facility] TDAP 2015-01-29 Completed [facility] 00:00:00 [facility] TDAP 2015-01-29 Completed [facility] 00:00:00 [facility] TDAP 2015-01-29 Completed [facility] 00:00:00 [facility] TDAP 2015-01-29 Completed [facility] 00:00:00 [facility] TDAP 2015-01-29 Completed [facility] 00:00:00 [facility] TDAP 2015-01-29 Completed [facility] 00:00:00 [facility] TDAP 2015-01-29 Completed [facility] 00:00:00 [facility] TDAP 2015-01-29 Completed [facility] 00:00:00 [facility] TDAP 2015-01-29 Completed [facility] 00:00:00 [facility] TDAP 2015-01-29 Completed [facility] 00:00:00 [facility] TDAP 2015-01-29 Completed [facility] 00:00:00 [facility] TDAP 2015-01-29 Completed [facility] 00:00:00 [facility] TDAP 2015-01-29 Completed [facility] 00:00:00 [facility] TDAP 2015-01-29 Completed [facility] 00:00:00 [facility] TDAP 2015-01-29 Completed [facility] 00:00:00 [facility] TDAP 2015-01-29 Completed [facility] 00:00:00 [facility] TDAP 2015-01-29 Completed [facility] 00:00:00 [facility] TDAP 2015-01-29 Completed [facility] 00:00:00 [facility] TDAP 2015-01-29 Completed [facility] 00:00:00 [facility] TDAP 2015-01-29 Completed [facility] 00:00:00 [facility] TDAP 2015-01-29 Completed [facility] 00:00:00 [facility] TDAP 2015-01-29 Completed [facility] 00:00:00 [facility] TDAP 2015-01-29 Completed [facility] 00:00:00 [facility] TDAP 2015-01-29 Completed [facility] 00:00:00 [facility] TDAP 2015-01-29 Completed [facility] 00:00:00 [facility] TDAP 2015-01-29 Completed [facility] 00:00:00 [facility] TDAP 2015-01-29 Completed [facility] 00:00:00 [facility] TDAP 2015-01-29 Completed [facility] 00:00:00 [facility] TDAP 2015-01-29 Completed [facility] 00:00:00 [facility] TDAP 2015-01-29 Completed [facility] 00:00:00 [facility] TDAP 2015-01-29 Completed [facility] 00:00:00 [facility] TDAP 2015-01-29 Completed [facility] 00:00:00 [facility] TDAP 2015-01-29 Completed [facility] 00:00:00 [facility] TDAP 2015-01-29 Completed [facility] 00:00:00 [facility] TDAP 2015-01-29 Completed [facility] 00:00:00 [facility] TDAP 2015-01-29 Completed [facility] 00:00:00 [facility] TDAP 2015-01-29 Completed [facility] 00:00:00 [facility] TDAP 2015-01-29 Completed [facility] 00:00:00 [facility] TDAP 2015-01-29 Completed [facility] 00:00:00 [facility] TDAP 2015-01-29 Completed [facility] 00:00:00 [facility] TDAP 2015-01-29 Completed [facility] 00:00:00 [facility] TDAP 2015-01-29 Completed [facility] 00:00:00 [facility] TDAP 2015-01-29 Completed [facility] 00:00:00 [facility] TDAP 2015-01-29 Completed [facility] 00:00:00 [facility] TDAP 2015-01-29 Completed [facility] 00:00:00 [facility] TDAP 2015-01-29 Completed [facility] 00:00:00 [facility] TDAP 2015-01-29 Completed [facility] 00:00:00 [facility] TDAP 2015-01-29 Completed [facility] 00:00:00 [facility] TDAP 2015-01-29 Completed [facility] 00:00:00 [facility] TDAP 2015-01-29 Completed [facility] 00:00:00 [facility] TDAP 2015-01-29 Completed [facility] 00:00:00 [facility] TDAP 2015-01-29 Completed [facility] 00:00:00 [facility] TDAP 2015-01-29 Completed [facility] 00:00:00 [facility] TDAP 2015-01-29 Completed [facility] 00:00:00 [facility] TDAP 2015-01-29 Completed [facility] 00:00:00 [facility] TDAP 2015-01-29 Completed [facility] 00:00:00 [facility] TDAP 2015-01-29 Completed [facility] 00:00:00 [facility] TDAP 2015-01-29 Completed [facility] 00:00:00 [facility] TDAP 2015-01-29 Completed [facility] 00:00:00 [facility] TDAP 2015-01-29 Completed [facility] 00:00:00 [facility] TDAP 2015-01-29 Completed [facility] 00:00:00 [facility] TDAP 2015-01-29 Completed [facility] 00:00:00 [facility] TDAP 2015-01-29 Completed [facility] 00:00:00 [facility] TDAP 2015-01-29 Completed [facility] 00:00:00 [facility] TDAP 2015-01-29 Completed [facility] 00:00:00 [facility] TDAP 2015-01-29 Completed [facility] 00:00:00 [facility] TDAP 2015-01-29 Completed [facility] 00:00:00 [facility] TDAP 2015-01-29 Completed [facility] 00:00:00 [facility] TDAP 2015-01-29 Completed [facility] 00:00:00 [facility] TDAP 2015-01-29 Completed [facility] 00:00:00 [facility] TDAP 2015-01-29 Completed [facility] 00:00:00 [facility] TDAP 2015-01-29 Completed [facility] 00:00:00 [facility] HPV 2010-07-05 Completed [facility] 00:00:00 [facility] Influenza Virus 2010-07-05 Completed [facility] Vaccine - Whole 00:00:00 [facility] HPV 2010-07-05 Completed [facility] 00:00:00 [facility] Influenza Virus 2010-07-05 Completed [facility] of Vaccine - Whole 00:00:00 [facility] HPV 2010-07-05 Completed [facility] 00:00:00 [facility] Influenza Virus 2010-07-05 Completed [facility] of Vaccine - Whole 00:00:00 [facility] HPV 2010-07-05 Completed [facility] 00:00:00 [facility] Influenza Virus 2010-07-05 Completed [facility] of Vaccine - Whole 00:00:00 [facility] HPV 2010-07-05 Completed [facility] 00:00:00 [facility] Influenza Virus 2010-07-05 Completed [facility] of Vaccine - Whole 00:00:00 [facility] HPV 2010-07-05 Completed [facility] 00:00:00 [facility] Influenza Virus 2010-07-05 Completed [facility] of Vaccine - Whole 00:00:00 [facility] HPV 2010-07-05 Completed [facility] 00:00:00 [facility] Influenza Virus 2010-07-05 Completed [facility] of Vaccine - Whole 00:00:00 [facility] HPV 2010-07-05 Completed [facility] 00:00:00 [facility] Influenza Virus 2010-07-05 Completed [facility] of Vaccine - Whole 00:00:00 [facility] HPV 2010-07-05 Completed [facility] 00:00:00 [facility] Influenza Virus 2010-07-05 Completed [facility] of Vaccine - Whole 00:00:00 [facility] HPV 2010-07-05 Completed [facility] 00:00:00 [facility] Influenza Virus 2010-07-05 Completed [facility] of Vaccine - Whole 00:00:00 [facility] HPV 2010-07-05 Completed [facility] 00:00:00 [facility] Influenza Virus 2010-07-05 Completed [facility] of Vaccine - Whole 00:00:00 [facility] HPV 2010-07-05 Completed [facility] 00:00:00 [facility] Influenza Virus 2010-07-05 Completed [facility] of Vaccine - Whole 00:00:00 [facility] HPV 2010-07-05 Completed [facility] 00:00:00 [facility] Influenza Virus 2010-07-05 Completed [facility] of Vaccine - Whole 00:00:00 [facility] HPV 2010-07-05 Completed [facility] 00:00:00 [facility] Influenza Virus 2010-07-05 Completed [facility] of Vaccine - Whole 00:00:00 [facility] HPV 2010-07-05 Completed [facility] 00:00:00 [facility] Influenza Virus 2010-07-05 Completed [facility] of Vaccine - Whole 00:00:00 [facility] HPV 2010-07-05 Completed [facility] 00:00:00 [facility] Influenza Virus 2010-07-05 Completed [facility] of Vaccine - Whole 00:00:00 [facility] HPV 2010-07-05 Completed [facility] 00:00:00 [facility] Influenza Virus 2010-07-05 Completed [facility] y of Vaccine - Whole 00:00:00 [facility] HPV 2010-07-05 Completed [facility] 00:00:00 [facility] Influenza Virus 2010-07-05 Completed [facility] of Vaccine - Whole 00:00:00 [facility] HPV 2010-07-05 Completed [facility] 00:00:00 [facility] Influenza Virus 2010-07-05 Completed [facility] of Vaccine - Whole 00:00:00 [facility] HPV 2010-07-05 Completed [facility] 00:00:00 [facility] Influenza Virus 2010-07-05 Completed [facility] of Vaccine - Whole 00:00:00 [facility] HPV 2010-07-05 Completed [facility] 00:00:00 [facility] Influenza Virus 2010-07-05 Completed [facility] of Vaccine - Whole 00:00:00 [facility] HPV 2010-07-05 Completed [facility] 00:00:00 [facility] Influenza Virus 2010-07-05 Completed [facility] of Vaccine - Whole 00:00:00 [facility] HPV 2010-07-05 Completed [facility] 00:00:00 [facility] Influenza Virus 2010-07-05 Completed [facility] of Vaccine - Whole 00:00:00 [facility] HPV 2010-07-05 Completed [facility] 00:00:00 [facility] Influenza Virus 2010-07-05 Completed [facility] of Vaccine - Whole 00:00:00 [facility] HPV 2010-07-05 Completed [facility] 00:00:00 [facility] Influenza Virus 2010-07-05 Completed [facility] Vaccine - Whole 00:00:00 [facility] HPV 2010-07-05 Completed [facility] 00:00:00 [facility] Influenza Virus 2010-07-05 Completed [facility] of Vaccine - Whole 00:00:00 [facility] HPV 2010-07-05 Completed [facility] 00:00:00 [facility] Influenza Virus 2010-07-05 Completed [facility] of Vaccine - Whole 00:00:00 [facility] HPV 2010-07-05 Completed [facility] 00:00:00 [facility] Influenza Virus 2010-07-05 Completed [facility] Vaccine - Whole 00:00:00 [facility] HPV 2010-02-12 Completed [facility] 00:00:00 [facility] HPV 2010-02-12 Completed [facility] 00:00:00 [facility] HPV 2010-02-12 Completed [facility] 00:00:00 [facility] HPV 2010-02-12 Completed [facility] 00:00:00 [facility] HPV 2010-02-12 Completed University of 00:00:00 [facility] HPV 2010-02-12 Completed University of 00:00:00 [facility] HPV 2010-02-12 Completed [facility] of 00:00:00 [facility] HPV 2010-02-12 Completed University of 00:00:00 [facility] HPV 2010-02-12 Completed University of 00:00:00 [facility] HPV 2010-02-12 Completed [facility] of 00:00:00 [facility] HPV 2010-02-12 Completed [facility] 00:00:00 [facility] HPV 2010-02-12 Completed [facility] of 00:00:00 [facility] HPV 2010-02-12 Completed [facility] of 00:00:00 [facility] HPV 2010-02-12 Completed University of 00:00:00 [facility] HPV 2010-02-12 Completed [facility] 00:00:00 [facility] HPV 2010-02-12 Completed [facility] 00:00:00 [facility] HPV 2010-02-12 Completed [facility] of 00:00:00 [facility] HPV 2010-02-12 Completed University of [...] Branch HPV 2009-12-14 Completed [facility] of 00:00:00 [facility] HPV 2009-12-14 Completed [facility] of 00:00:00 [facility] HPV 2009-12-14 Completed [facility] of 00:00:00 [facility] HPV 2009-12-14 Completed [facility] of 00:00:00 [facility] HPV 2009-12-14 Completed [facility] of 00:00:00 [facility] HPV 2009-12-14 Completed [facility] of 00:00:00 [facility] HPV 2009-12-14 Completed University of 00:00:00 [facility] Vital Signs Vital Name Observation Time Observation Value Comments Source Systolic blood 2023-01-02 19:11:00 132 mm[Hg] Univer sity of pressure [facility] Diastolic blood 2023-01-02 19:11:00 89 mm[Hg] Unive rsity of pressure [facility] Heart rate 2023-01-02 19:11:00 78 /min Universi ty of [facility] Body temperature 2023-01-02 19:11:00 36.78 Lien Univ ersity of [facility] Body height 2023-01-02 19:11:00 162.6 cm Universi ty of [facility] Body weight 2023-01-02 19:11:00 92.126 kg Universi ty of [facility] BMI 2023-01-02 19:11:00 34.86 kg/m2 Universi ty of [facility] Oxygen saturation in 2023-01-02 19:11:00 98 /min University Arterial blood by [facility] Pulse oximetry Branch Systolic blood 2022-12-09 16:12:00 113 mm[Hg] Univer sity of pressure [facility] Diastolic blood 2022-12-09 16:12:00 79 mm[Hg] Unive rsity of pressure [facility] Heart rate 2022-12-09 16:12:00 71 /min Universi ty of [facility] Body temperature 2022-12-09 16:12:00 36.83 Lien Univ ersity of [facility] Body height 2022-12-09 16:12:00 162.6 cm Universi ty of [facility] Body weight 2022-12-09 16:12:00 89.767 kg Universi ty of [facility] BMI 2022-12-09 16:12:00 33.97 kg/m2 [facility]i ty of [facility] Oxygen saturation in 2022-12-09 16:12:00 100 /min University of Arterial blood by [facility] Pulse oxim[facility] Branch Systolic blood 2022-10-10 17:30:00 127 mm[Hg] Univer sity of pressure [facility] Diastolic blood 2022-10-10 17:30:00 81 mm[Hg] Unive rsity of pressure [facility] Heart rate 2022-10-10 17:30:00 88 /min [facility]i ty [facility] Body temperature 2022-10-10 17:30:00 36.72 Lien Univ ersity of [facility] Respiratory rate 2022-10-10 17:30:00 16 /min Univ ersity of [facility] Body weight 2022-10-10 17:30:00 86.456 kg [facility]i ty [facility] BMI 2022-10-10 17:30:00 32.72 kg/m2 [facility] Systolic blood 2022-10-06 23:00:00 124 mm[Hg] Univer sity of pressure [facility] Diastolic blood 2022-10-06 23:00:00 73 mm[Hg] Unive rsity of pressure [facility] Heart rate 2022-10-06 23:00:00 87 /min [facility]i ty [facility] Respiratory rate 2022-10-06 23:00:00 16 /min Univ ersity of [facility] Oxygen saturation in 2022-10-06 23:00:00 97 /min University of Arterial blood by [facility] Branch Body temperature 2022-10-06 19:03:00 37.39 Lien Univ ersity of [facility] Body weight 2022-10-06 19:03:00 83.462 kg Universi ty of [facility] BMI 2022-10-06 19:03:00 31.58 kg/m2 [facility] Systolic blood 2022-10-06 18:50:00 155 mm[Hg] Univer sity of pressure [facility] Diastolic blood 2022-10-06 18:50:00 90 mm[Hg] Unive rsity of pressure [facility] Heart rate 2022-10-06 18:38:00 95 /min [facility] ty [facility] Body temperature 2022-10-06 18:38:00 36.11 Lien Univ ersity of [facility] Respiratory rate 2022-10-06 18:38:00 18 /min Univ ersity of [facility] Body height 2022-10-06 18:38:00 162.6 cm [facility] Body weight 2022-10-06 18:38:00 84.624 kg [facility] BMI 2022-10-06 18:38:00 32.02 kg/m2 [facility] Oxygen saturation in 2022-10-06 18:38:00 99 /min [facility] of Arterial blood by [place] [employer] [facility]sa [facility]ela [facility] Systolic blood 2022-09-19 16:49:00 142 mm[Hg] Univer sity of pressure [facility] Diastolic blood 2022-09-19 16:49:00 86 mm[Hg] Unive rsity of pressure [facility] Heart rate 2022-09-19 16:48:00 75 /min [facility]i ty [facility] Body temperature 2022-09-19 16:48:00 36.83 Lien Univ ersity of [facility] Body height 2022-09-19 16:48:00 162.6 cm [facility]i ty [facility] Body weight 2022-09-19 16:48:00 90.266 kg [facility] BMI 2022-09-19 16:48:00 34.16 kg/m2 [facility] Heart rate 2022-09-12 16:30:00 66 /min [facility] Body temperature 2022-09-12 16:30:00 36.67 Ilen Univ ersity of [facility] Respiratory rate 2022-09-12 16:30:00 17 /min Univ ersity of [facility] Systolic blood 2022-09-12 14:00:00 110 mm[Hg] Univer sity of pressure [facility] Diastolic blood 2022-09-12 14:00:00 62 mm[Hg] Unive rsity of pressure [facility] Oxygen saturation in 2022-09-12 12:00:00 99 /min [facility] Body height 2022-09-11 11:55:00 162.6 cm [facility]i [facility] Body weight 2022-09-11 11:55:00 91.264 kg [facility] BMI 2022-09-11 11:55:00 34.54 kg/m2 [facility] Systolic blood 2022-09-11 15:45:00 119 mm[Hg] Univer sity of pressure [facility] Diastolic blood 2022-09-11 15:45:00 54 mm[Hg] Unive rsity of pressure [facility] Heart rate 2022-09-11 15:45:00 89 /min [facility] ty [facility] Body temperature 2022-09-11 15:45:00 36.5 Lien Univ ersity of [facility] Respiratory rate 2022-09-11 15:45:00 21 /min Univ ersity of [facility] Oxygen saturation in 2022-09-11 15:45:00 99 /min University of Arterial blood by [facility] Body height 2022-09-11 11:55:00 162.6 cm [facility] [place] Body weight 2022-09-11 11:55:00 91.264 kg [facility] ty [facility] BMI 2022-09-11 11:55:00 34.54 kg/m2 [facility] Respiratory rate 2022-09-11 15:30:00 35 /min Univ ersity of [facility] Systolic blood 2022-09-05 20:00:00 122 mm[Hg] Univer sity of pressure [facility] Diastolic blood 2022-09-05 20:00:00 80 mm[Hg] Unive rsity of pressure [facility] Heart rate 2022-09-05 20:00:00 89 /min [facility] Body temperature 2022-09-05 20:00:00 36.56 Lien Univ ers[facility] of [facility] Body weight 2022-09-05 20:00:00 91.264 kg [facility] BMI 2022-09-05 20:00:00 34.54 kg/m2 [facility] Systolic blood 2022-09-04 08:30:00 109 mm[Hg] Univer sity of pressure [facility] Diastolic blood 2022-09-04 08:30:00 58 mm[Hg] Unive rsity of pressure [facility] Heart rate 2022-09-04 08:30:00 78 /min [facility] ty [facility] Oxygen saturation in 2022-09-04 08:30:00 96 /min University of Arterial blood by [place] [employer] [facility]ela [facility] Systolic blood 2022-08-29 17:05:00 128 mm[Hg] Univer sity of pressure [facility] Diastolic blood 2022-08-29 17:05:00 79 mm[Hg] Unive rsity of pressure [facility] Heart rate 2022-08-29 17:05:00 96 /min [facility] Body temperature 2022-08-29 17:05:00 36.89 Lien Univ ersity of [facility] Respiratory rate 2022-08-29 17:05:00 16 /min Univ ersity of [facility] Body height 2022-08-29 17:05:00 162.6 cm [facility] Body weight 2022-08-29 17:05:00 92.262 kg [facility] BMI 2022-08-29 17:05:00 34.91 kg/m2 [facility] Oxygen saturation in 2022-08-29 17:05:00 99 /min [facility] of Arterial blood by [place] [employer] [facility]ela [facility] Systolic blood 2022-08-22 00:31:00 118 mm[Hg] Univer sity of pressure [facility] Diastolic blood 2022-08-22 00:31:00 77 mm[Hg] Unive rsity of pressure [facility] Heart rate 2022-08-22 00:31:00 105 /min [facility] ty [facility] Body temperature 2022-08-22 00:31:00 36.67 Lien Univ ersity of [facility] Respiratory rate 2022-08-22 00:31:00 16 /min Univ ersity of [facility] Body height 2022-08-22 00:31:00 162.6 cm [facility] Body weight 2022-08-22 00:31:00 91.808 kg [facility] BMI 2022-08-22 00:31:00 34.74 kg/m2 [facility] Oxygen saturation in 2022-08-22 00:31:00 98 /min University of Arterial blood by [place] [employer] [facility]ela [facility] Systolic blood 2022-08-14 15:56:00 108 mm[Hg] Univer sity of pressure [facility] Diastolic blood 2022-08-14 15:56:00 73 mm[Hg] Unive rsity of pressure [facility] Heart rate 2022-08-14 15:56:00 84 /min [facility] ty [facility] Body temperature 2022-08-14 15:56:00 36.72 Lien Univ ersity of [facility] Body weight 2022-08-14 15:56:00 90.357 kg [facility] BMI 2022-08-14 15:56:00 34.19 kg/m2 [facility] Heart rate 2022-08-12 06:00:00 85 /min [facility] Oxygen saturation in 2022-08-12 06:00:00 98 /min University of Arterial blood by [facility] Systolic blood 2022-08-12 05:30:00 118 mm[Hg] Univer sity of pressure [facility] Diastolic blood 2022-08-12 05:30:00 81 mm[Hg] Unive rsity of pressure [facility] Body temperature 2022-08-12 02:00:00 36.83 Lien Univ ersity of [facility] Respiratory rate 2022-08-12 00:46:00 18 /min Univ ersity of [facility] Body weight 2022-08-12 00:46:00 90.493 kg [facility] BMI 2022-08-12 00:46:00 34.24 kg/m2 [facility] Systolic blood 2022-07-31 15:00:00 110 mm[Hg] Univer sity of pressure [facility] Diastolic blood 2022-07-31 15:00:00 75 mm[Hg] Unive rsity of pressure [facility] Heart rate 2022-07-31 15:00:00 89 /min [facility] Body temperature 2022-07-31 15:00:00 36.72 Lien Univ ers[facility] of [facility] Respiratory rate 2022-07-31 15:00:00 18 /min Univ ersity of [facility] Body height 2022-07-31 15:00:00 162.6 cm [facility] Body weight 2022-07-31 15:00:00 90.629 kg [facility] BMI 2022-07-31 15:00:00 34.30 kg/m2 [facility] Systolic blood 2022-07-31 01:49:00 131 mm[Hg] Univer sity of pressure [facility] Diastolic blood 2022-07-31 01:49:00 74 mm[Hg] Unive rsity of pressure [facility] Heart rate 2022-07-31 01:49:00 98 /min [facility] ty [facility] Respiratory rate 2022-07-31 01:49:00 16 /min Univ ersity of [facility] Oxygen saturation in 2022-07-31 01:49:00 100 /min University of Arterial blood by [place] [employer] [facility]ela [facility] Body temperature 2022-07-30 23:24:00 36.72 Lien Univ ersity of [facility] Systolic blood 2022-07-30 08:06:57 124 mm[Hg] Univer sity of pressure [facility] Diastolic blood 2022-07-30 08:06:57 71 mm[Hg] Unive rsity of pressure [facility] Heart rate 2022-07-30 08:06:57 100 /min [facility] ty [facility] Respiratory rate 2022-07-30 08:06:57 18 /min Univ ersity of [facility] Oxygen saturation in 2022-07-30 08:06:57 98 /min [facility] of Arterial blood by [place] [employer] [facility] isela [facility] Body temperature 2022-07-30 07:37:00 36.61 Lien Univ ersity of [facility] Body height 2022-07-30 07:37:00 162.6 cm [facility] Body weight 2022-07-30 07:37:00 87.091 kg [facility] BMI 2022-07-30 07:37:00 32.96 kg/m2 [facility] Systolic blood 2022-07-18 17:24:00 117 mm[Hg] Univer sity of pressure [facility] Diastolic blood 2022-07-18 17:24:00 85 mm[Hg] Unive rsity of pressure [facility] Heart rate 2022-07-18 17:24:00 100 /min [facility] ty [facility] Body temperature 2022-07-18 17:24:00 36.78 Lien Univ ersity of [facility] Respiratory rate 2022-07-18 17:24:00 16 /min Univ ersity of [facility] Body height 2022-07-18 17:24:00 162.6 cm [facility] Body weight 2022-07-18 17:24:00 89.721 kg [facility] BMI 2022-07-18 17:24:00 33.95 kg/m2 [facility] Oxygen saturation in 2022-07-18 17:24:00 100 /min University of Arterial blood by [facility] Systolic blood 2022-07-18 14:49:00 118 mm[Hg] Univer sity of pressure [facility] [place] Diastolic blood 2022-07-18 14:49:00 79 mm[Hg] Unive rsity of pressure [facility] Heart rate 2022-07-18 14:49:00 88 /min [facility] ty [facility] Body temperature 2022-07-18 14:49:00 36.72 Lien Univ ersity of [facility] Body height 2022-07-18 14:49:00 162.6 cm [facility] Body weight 2022-07-18 14:49:00 89.903 kg [facility] BMI 2022-07-18 14:49:00 34.02 kg/m2 Universi ty of [facility] Systolic blood 2022-07-01 16:37:00 130 mm[Hg] Univer sity of pressure [facility] Diastolic blood 2022-07-01 16:37:00 86 mm[Hg] Unive rsity of pressure [facility] Heart rate 2022-07-01 16:37:00 89 /min [facility] ty [facility] Body temperature 2022-07-01 16:37:00 36.83 Lien Univ ersity of [facility] Respiratory rate 2022-07-01 16:37:00 18 /min Univ ersity of [facility] Body height 2022-07-01 16:37:00 162.6 cm [facility] Body weight 2022-07-01 16:37:00 89.812 kg [facility] BMI 2022-07-01 16:37:00 33.99 kg/m2 [facility] Systolic blood 2022-06-20 15:29:00 112 mm[Hg] Univer sity of pressure [facility] Diastolic blood 2022-06-20 15:29:00 70 mm[Hg] Unive rsity of pressure [facility] Heart rate 2022-06-20 15:29:00 87 /min [facility] Body temperature 2022-06-20 15:29:00 36.83 Lien Univ [facility] of [facility] Respiratory rate 2022-06-20 15:29:00 16 /min Univ ersity of [facility] Body height 2022-06-20 15:29:00 162.6 cm [facility] Body weight 2022-06-20 15:29:00 88.86 kg [facility] BMI 2022-06-20 15:29:00 33.63 kg/m2 [facility] Oxygen saturation in 2022-06-20 15:29:00 96 /min University of Arterial blood by [employer] rosa isela [facility] Systolic blood 2022-05-23 13:46:00 128 mm[Hg] Univer sity of pressure [facility] Diastolic blood 2022-05-23 13:46:00 83 mm[Hg] Unive rsity of pressure [facility] Heart rate 2022-05-23 13:46:00 93 /min [facility] Body temperature 2022-05-23 13:46:00 36.89 Lien Univ [facility] of [facility] Respiratory rate 2022-05-23 13:46:00 16 /min Univ ersity of [facility] Body height 2022-05-23 13:46:00 162.6 cm [facility] Body weight 2022-05-23 13:46:00 88.089 kg [facility] BMI 2022-05-23 13:46:00 33.33 kg/m2 [facility] Oxygen saturation in 2022-05-23 13:46:00 98 /min [facility] of Arterial blood by [employer] rosa isela [facility] Systolic blood 2022-05-21 20:21:00 122 mm[Hg] Univer sity of pressure [facility] Diastolic blood 2022-05-21 20:21:00 80 mm[Hg] Unive rsity of pressure [facility] Body temperature 2022-05-21 20:21:00 36.83 Lien Univ [facility] of [facility] Respiratory rate 2022-05-21 20:21:00 18 /min Univ ersity of [facility] Body height 2022-05-21 20:21:00 162.6 cm [facility] Body weight 2022-05-21 20:21:00 87.998 kg [facility] BMI 2022-05-21 20:21:00 33.30 kg/m2 [facility] Systolic blood 2022-05-16 14:24:00 113 mm[Hg] Univer sity of pressure [facility] Diastolic blood 2022-05-16 14:24:00 71 mm[Hg] Unive rsity of pressure [facility] Heart rate 2022-05-16 14:24:00 84 /min [facility] Body height 2022-05-16 14:24:00 162.6 cm [facility] Body weight 2022-05-16 14:24:00 90.266 kg [facility] BMI 2022-05-16 14:24:00 34.16 kg/m2 [facility] Oxygen saturation in 2022-05-16 14:24:00 98 /min University Arterial blood by [facility] Body weight 2022-05-16 13:20:00 90.266 kg [facility] BMI 2022-05-16 13:20:00 34.16 kg/m2 [facility] Systolic blood 2022-05-09 14:17:00 116 mm[Hg] Univer sity of pressure [facility] Diastolic blood 2022-05-09 14:17:00 80 mm[Hg] Unive rsity of pressure [facility] Heart rate 2022-05-09 14:17:00 79 /min [facility] Body temperature 2022-05-09 14:17:00 36.56 Lien Univ ers[facility] of [facility] Respiratory rate 2022-05-09 14:17:00 18 /min Univ ersity of [facility] Body height 2022-05-09 14:17:00 162.6 cm [facility] Body weight 2022-05-09 14:17:00 88.451 kg [facility] BMI 2022-05-09 14:17:00 33.47 kg/m2 [facility] Systolic blood 2022-05-02 19:37:00 120 mm[Hg] Univer sity of pressure [facility] Diastolic blood 2022-05-02 19:37:00 82 mm[Hg] Unive rsity of pressure [facility] Heart rate 2022-05-02 19:37:00 85 /min [facility] Body temperature 2022-05-02 19:37:00 36.67 Lien Univ [facility] Respiratory rate 2022-05-02 19:37:00 18 /min Univ ersity of [facility] Body height 2022-05-02 19:37:00 162.6 cm [facility] Body weight 2022-05-02 19:37:00 88.905 kg [facility] BMI 2022-05-02 19:37:00 33.64 kg/m2 [facility] Systolic blood 2022-04-25 14:49:00 116 mm[Hg] Univer sity of pressure [facility] Diastolic blood 2022-04-25 14:49:00 76 mm[Hg] Unive rsity of pressure [facility] Heart rate 2022-04-25 14:49:00 77 /min [facility] Body temperature 2022-04-25 14:49:00 36.67 Lien Univ [facility] Respiratory rate 2022-04-25 14:49:00 18 /min Univ ersity of [facility] Body weight 2022-04-25 14:49:00 88.27 kg [facility] BMI 2022-04-25 14:49:00 33.39 kg/m2 [facility] Systolic blood 2022-04-11 20:50:00 135 mm[Hg] Univer sity of pressure [facility] Diastolic blood 2022-04-11 20:50:00 81 mm[Hg] Unive rsity of pressure [facility] Heart rate 2022-04-11 20:50:00 84 /min [facility] ty [facility] Oxygen saturation in 2022-04-11 20:50:00 99 /min University of Arterial blood by [facility] Body height 2022-04-11 20:45:00 162.6 cm [facility] Body weight 2022-04-11 20:45:00 86.637 kg [facility] BMI 2022-04-11 20:45:00 32.77 kg/m2 [facility] Body temperature 2022-04-11 20:18:00 37.22 Lien Univ [facility] of [facility] Respiratory rate 2022-04-11 20:18:00 18 /min Univ ersity of [facility] Systolic blood 2022-04-11 19:39:00 116 mm[Hg] Univer sity of pressure [facility] Diastolic blood 2022-04-11 19:39:00 75 mm[Hg] Unive rsity of pressure [facility] Heart rate 2022-04-11 19:39:00 90 /min [facility] Body temperature 2022-04-11 19:39:00 37.06 Lien Univ [facility] Respiratory rate 2022-04-11 19:39:00 18 /min Univ [facility]ity of [facility] Body height 2022-04-11 19:39:00 162.6 cm [facility] Body weight 2022-04-11 19:39:00 88.083 kg [facility] BMI 2022-04-11 19:39:00 33.33 kg/m2 [facility] Oxygen saturation in 2022-04-11 19:39:00 97 /min [facility] of Arterial blood by [facility] Systolic blood 2022-04-02 14:51:00 114 mm[Hg] Univer sity of pressure [facility] Diastolic blood 2022-04-02 14:51:00 73 mm[Hg] Unive rsity of pressure [facility] Heart rate 2022-04-02 14:51:00 82 /min [facility] Body temperature 2022-04-02 14:51:00 36.78 Lien [facility] Respiratory rate 2022-04-02 14:51:00 18 /min [facility] 2022-04-02 14:51:00 162.6 cm Universi ty [facility] Body weight 2022-04-02 14:51:00 89.812 kg Universi ty [facility] BMI 2022-04-02 14:51:00 33.99 kg/m2 [facility] Systolic blood 2022-01-27 13:51:00 128 mm[Hg] Univer sity of pressure [facility] Diastolic blood 2022-01-27 13:51:00 88 mm[facility]Hg] [facility] Heart rate 2022-01-27 13:51:00 77 /min [facility] ty [facility] Body temperature 2022-01-27 13:51:00 36.78 Lien [facility] Respiratory rate 2022-01-27 13:51:00 18 /min [facility] Body height 2022-01-27 13:51:00 162.6 cm Universi ty [facility] Body weight 2022-01-27 13:51:00 86.864 kg [facility] BMI 2022-01-27 13:51:00 32.87 kg/m2 [facility] Procedures Procedure Date / Time Performing Clinician Source Performed AUTHORIZATION TO RELEASE 2023-02-17 05:01:00 [facility] PHI TO [facility] [place] [facility] POCT TEST 2023-01-02 19:57:00 Avelino Reid [facility] POCT MOLECULAR STREP 2023-01-02 19:31:00 Avelino Reid [facility] POCT SARS-COV-2 ANTIGEN 2023-01-02 19:30:00 Avelino Reid [facility] (BINAX NOW) [facility] CONSENT FOR DEPO-PROVERA 2023-01-02 05:01:00 Doctor Evans, [facility] [place] [facility] [facility] CONSENT/REFUSAL FOR 2022-12-09 17:44:44 Doctor Evans, [facility] DIAGNOSIS AND TREATMENT [place] [facility] ASSIGNMENT OF BENEFITS 2022-12-09 17:44:23 Doctor [facility], [facility] [place] POCT TEST 2022-12-09 16:52:00 Avelino Reid [facility] DME/SUPPLY JUSTIFICATION 2022-10-14 05:01:00 Doctor Unassamerica, [facility] Name Medical Branch LIPASE 2022-10-06 19:24:00 Ghanshyam Dawson [facility] MAGNESIUM 2022-10-06 19:24:00 Ghanshyam Dawson Sully [facility] COMP. METABOLIC PANEL 2022-10-06 19:24:00 Ghanshyam Dawson [facility] ([id number]) [facility] CBC WITH DIFF 2022-10-06 19:24:00 Ghanshyam Dawson Sully [facility] URINALYSIS 2022-10-06 19:06:00 Singer [facility] CONSENT/REFUSAL FOR 2022-10-06 18:54:44 Doctor Unassamerica, [facility]ANCIAL 2022-10-06 18:17:23 Doctor Unassigned, [facility] POLICY [facility] CBC WITH DIFF 2022-09-12 06:45:00 Татьяна [facility] CBC WITH DIFF 2022-09-12 06:45:00 [facility] SECTION 2022-09-11 13:54:00 Татьяна [facility] SECTION 2022-09-11 13:54:00 Татьяна [facility] CBC WITH DIFF 2022-09-11 12:22:00 [facility] CBC WITH DIFF 2022-09-11 12:22:00 [facility] CONSENT/REFUSAL FOR 2022-09-11 11:37:43 Doctor Evans, [facility] DIAGNOSIS AND TREATMENT [facility] CBC WITH DIFF 2022-09-09 16:15:00 Татьяна [facility] HB ABO GROUPING 2022-09-09 16:15:00 Vaz, Rebekah Cam [facility] RHO (D) IMMUNE GLOBULIN 2022-09-09 16:15:00 Rebekah Vaz [facility] RHO (D) IMMUNE GLOBULIN 2022-09-09 16:15:00 Rebekah Vaz [facility] POCT URINALYSIS W/O 2022-09-05 00:00:00 Rebekah Vaz [facility] CBC WITH DIFF 2022-09-04 06:35:00 Rebekah Vaz [facility] ADC OR ROXANN ONLY - RPR 2022-09-04 06:35:00 Rebekah Vaz Un [facility] HIV 1/2 AG-AB WITH REFLEX 2022-09-04 06:35:00 Rebekah Vaz [facility] HB ABO GROUPING 2022-09-04 06:30:00 Rebekah Vaz [facility] NON-STRESS TEST 2022-08-29 18:16:56 Rebekah Vaz [facility] DSU PRE-OP 2022-08-29 06:01:00 Doctor Unassigned, [facility] DME/SUPPLY JUSTIFICATION 2022-08-27 06:01:00 Doctor Unassigned, [facility] DME/SUPPLY JUSTIFICATION 2022-08-20 06:01:00 Doctor Unassigned, [facility] DME/SUPPLY JUSTIFICATION 2022-08-15 06:01:00 Doctor Unassigned, [facility] POCT URINALYSIS W/O 2022-08-14 00:00:00 Rebekah Vaz [facility] URINALYSIS 2022-08-12 02:16:00 Breann Mendez [facility] US BIOPHYSICAL 2022-07-31 01:18:40 Rebekah Vaz [facility] URINALYSIS 2022-07-31 00:37:00 Rebekah Vaz [facility] ADC CLC OR LCC ONLY - WET 2022-07-31 00:37:00 Rebekah Vaz Un [facility] POCT URINALYSIS W/O 2022-07-31 00:00:00 Rebekah Vaz [facility] CONSENT/REFUSAL FOR 2022-07-30 07:26:21 Doctor Unassigned, [facility] 2022-07-30 06:01:00 Doctor Unassamerica, [facility] AGREEMENTS AND [place] Medical [place] AUTHORIZATIONS POCT MOLECULAR FLU 2022-07-18 17:36:00 Unknown, Attending [facility] POCT MOLECULAR STREP 2022-07-18 17:32:00 Unknown, Attending [facility] POCT URINALYSIS W/O 2022-07-18 00:00:00 Angelo Rodriguez [facility] US HEAD NECK 2022-07-03 16:58:42 Carolyn Amato [facility] URINE CULTURE 2022-07-01 17:12:00 Adum, Kassidy Pan [facility] GC & CHLAMYDIA AMPLIFIED 2022-07-01 17:12:00 Adum, Kassidy Pan [facility] GALV ONLY - VAGINAL 2022-07-01 17:12:00 Adum, Kassidy Pan [facility] PATHOGENS BY NUCLEIC ACID [facility] TESTING POCT URINALYSIS W/O 2022-07-01 00:00:00 Admarine, Kassidy Pan [facility] STERILIZATION CONSENT 2022-06-20 06:01:00 Doctor Unassamerica, [facility] FORM [facility] POCT URINALYSIS W/O 2022-06-20 00:00:00 Rebekah Vaz [facility] SECOND AND THIRD 2022-05-27 19:01:00 Rebekah Vaz [facility] TRIMESTER ULTRASOUND Medical [facility] EXTERNAL PROVIDER RECORDS 2022-05-20 05:01:00 Doctor Evans [facility] SECOND AND THIRD 2022-05-12 19:14:00 Rebekah Vaz [facility] TRIMESTER ULTRASOUND Medical [facility] URINE CULTURE 2022-05-02 21:31:00 Rebekah Vaz [facility] FLU VACC (), 6 2022-05-02 19:55:18 Rebekah Vaz [facility] MO-64 YRS, .5ML, IM, QUAD Medica l Branch (FLUCELVAX) POCT URINALYSIS W/O 2022-05-02 00:00:00 Rebekah Vaz [facility] EXTERNAL PROVIDER RECORDS 2022-04-24 05:01:00 Doctor Evans [facility] [place] [facility] [place] MEDICATION CORRESPONDENCE 2022-04-15 05:01:00 Doctor Evans [facility] [place] [facility] [place] URINALYSIS 2022-04-11 21:14:00 Rebekah Vaz [facility] ADC CLC OR LCC ONLY - WET 2022-04-11 21:14:00 Rebekah Vaz [facility] CONSENT/REFUSAL FOR 2022-04-11 20:18:44 Doctor Evans [facility] DIAGNOSIS AND TREATMENT [place] Medical Branch AUTHORIZATION TO RELEASE 2022-04-02 05:01:00 Doctor Evans [facility] PHI TO [facility] [place] [facility] [place] POCT URINALYSIS W/O 2022-04-02 00:00:00 Rebekah Vaz [facility] HOUSING DEVELOPMENT SPECIALIST CLINIC ULTRASOUND 2022-02-06 05:01:00 Doctor Krueger [facility] [place] Medical Branch <14 WEEKS US 2022-01-27 15:40:51 Jamila Zaldivar [facility] URINE DRUG (IMMUNOASSAY) 2022-01-27 14:08:00 Jamila Zaldivar [facility] DRUG [facility] SCREEN URINE CULTURE 2022-01-27 14:08:00 Jamila Zaldivar [facility] GC & CHLAMYDIA AMPLIFIED 2022-01-27 14:08:00 Jamila Zaldivar [facility] TRICHOMONAS AMPLIFIED 2022-01-27 14:08:00 Jamila Zaldivar [facility] POCT TEST 2022-01-27 00:00:00 [facility] POCT URINALYSIS W/O 2022-01-27 00:00:00 Jamila Zaldivar [facility] [place] SPECIFIC GRAVITY [facility] Encounters Start End Encounter Admission Attending Care Care Encounter Source Date/Time Date/Time Type Type Clinicians Facility Department ID 2022-08-12 Outpatient P [facility] [id number] Univers 00:32:52 ity of [facility] 2022-04-11 Outpatient X [facility] [id number] Univers 19:02:10 ity of [facility] 2021-06-03 Outpatient [facility] [id number] Univers 18:52:17 ity of [facility] 2021-06-03 Outpatient P [facility] [id number] Univers 07:14:53 ity of [facility] 2021-06-03 Outpatient [facility] [id number] Univers 07:14:18 ity of [facility] 2021-06-03 Emergency [facility] [id number] Univers 04:49:13 ity of [facility] 2021-06-02 Emergency [facility] [id number] Univers 09:17:44 ity [facility] 2023-02-17 2023-02-17 Orders Doctor ADRIÁN 1.2.840.114 [id number] Univers 00:00:00 00:00:00 Only Unassigned, BAILEY 350.1.13.10 ity of [place] [facility] 4.2.7.2.686 Marty as [id number] [address] 2023-01-08 2023-01-08 Outpatient Ruben REID [facility] [id number] Univers 00:00:00 00:00:00 AVELINO anglin [facility] 2023-01-02 2023-01-02 Sexer Lab, Ang - Db [facility] 1.2.840.1 14 [id number] Univers 15:30:00 15:45:00 Visit Avelino Reid 350.1.13.10 ity of [place] 4.2.7.2.686 Marty as EMMETT?BLEA [id number] [address] MEDICAL OFFICE BUILDING 2023-01-02 2023-01-02 Outpatient Ruben REID [facility] [id number] Univers 14:30:00 15:19:03 AVELINO anglin [facility] 2023-01-02 2023-01-02 Office Franklin [facility] 1.2.840.114 [id number] Univers 14:30:00 15:19:03 Visit Avelino CANDELARIA 350.1.13.10 it y of [facility] 4.2.7.2.686 Marty as EMMETT?BLEA [id number] Nj marcela [address] MEDICAL OFFICE [facility] 2023-01-02 2023-01-02 Telephone [facility] 1.2.431.987 [id number] Univers 00:00:00 00:00:00 Avelino HEALTH 350.1.13.10 it y of [place] 4.2.7.2.686 Marty as EMMETT?BLEA [id number] [address] OFFICE [facility] 2023-01-02 2023-01-02 Orders Doctor ADRIÁN 1.2.840.114 [id number] Univers 00:00:00 00:00:00 Only Unassigned, BAILEY 350.1.13.10 ity of [place] [facility] 4.2.7.2.686 Marty as [id number] [facility] [address] [place] 2022-12-10 2022-12-10 Patient [facility] 1.2.840.114 [id number] Univers 00:00:00 00:00:00 Secure Msg Tamara Simmons HEALTH 350.1.13.10 ity of [place] 4.2.7.2.686 Marty as EMMETT?BLEA [id number] [address] OFFICE [facility] 2022-12-09 2022-12-09 Outpatient R FRANKLIN [facility] [id number] Univers 12:43:34 23:59:00 AVELINO ity of [facility] 2022-12-09 2022-12-09 Hospital [facility] 1.2.840.114 [id number] Univers 12:43:34 23:59:00 Encounter Avelino MARSHALL 350.1.13.10 it[place] of [place].7.2.[place] [phone] [facility] 807 [place] 2022-12-09 2022-12-09 Sexer Lab, [place] - Lobo [facility] 1.2.840.1 14 [id number] Univers 12:00:00 12:15:00 Visit Avelino Reid 350.1.13.10 ity of [facility] 4.2.7.2.686 [place] as EMMETT?BLEA [id number] Nj marcela MYERS [address] [place] MEDICAL OFFICE BUILDING 2022-12-09 2022-12-09 Office [facility] 1.2.840.114 [id number] Univers 11:00:00 11:58:55 Visit Avelino CANDELARIA 350.1.13.10 it y of [place] 4.2.7.2.686 Marty as EMMETT?BLEA [id number] Nj diclala MARQUES 044 [facility] OFFICE [facility] 2022-12-05 2022-12-05 Telephone Татьяна [facility] 1.2.840.114 [id number] Univers 00:00:00 00:00:00 Cam CLAUDIA 350.1.13.10 it y of [place].2.[place] [id number] [address] 2022-11-07 2022-11-07 Outpatient R ТАТЬЯНА [facility] [id number] Univers 11:00:00 11:00:00 ity of [facility] 2022-10-14 2022-10-14 Orders Doctor ADRIÁN 1.2.840.114 [id number] Univers 00:00:00 00:00:00 Only Unassigned, BAILEY 350.1.13.10 ity of [place] [facility] 4.2.7.2.686 Marty as [id number] [address] 2022-10-13 2022-10-13 Telephone Татьяна [facility] 1.2.840.114 10 [id number] Univers 00:00:00 00:00:00 Cam ROLANDO 350.1.13.10 i ty of [place].2.7.2.[place] [phone] Nj elroylala [address] 2022-10-10 2022-10-10 Outpatient R ТАТЬЯНА [facility] [id number] Univers 11:00:00 11:46:39 ity of [facility] 2022-10-10 2022-10-10 Routine Татьяна [facility] 1.2.840.114 10 [id number] Univers 11:00:00 11:46:39 Cam CLAUDIA 350.1.13.10 i ty of Visit WOMEN'S 4.2.7.2.686 [place] [facility] [id number] [facility] 134 Branch 2022-10-06 2022-10-06 Emergency X SAMIR, K [facility] ERT [id number] Univers 13:08:00 17:39:00 ity of [facility] 2022-10-06 2022-10-06 Emergency Samir [facility] 1.2.840.114 10 [id number] Univers 13:08:00 17:39:00 Sully MARSHALL 350.1.13.10 i ty of [facility] 4.2.7.2.686 [place] [id number] [facility] 084 Branch 2022-10-06 2022-10-06 Urgent Kip Daniel [facility] 1.2.840.11 [id number] Univers 12:20:00 12:40:00 Care Unknown, Attending [facility] 350.1.13.10 ity of [place] 4.2.7.2.686 Marty as EMMETT?BLEA [id number] [address] MEDICAL OFFICE BUILDING 2022-10-06 2022-10-06 Outpatient R CLAUDIA [facility] [id number] Univers 12:20:00 12:20:00 REEANÍBAL ity of [facility] 2022-10-06 2022-10-06 Orders Doctor ADRIÁN 1.2.840.114 [id number] Univers 00:00:00 00:00:00 Only Unassigned, BAILEY 350.1.13.10 ity of [place] HOSPITAL 4.2.7.2.686 Marty as [id number] [facility] 009 [place] 2022-09-26 2022-09-26 Telephone Demarco [facility] FATOU 1.2.840.114 10 [id number] Univers 00:00:00 00:00:00 Severo TAYLOR 350.1.13.10 it y of [place] [phone] [facility] 134 Branch 2022-09-19 2022-09-19 Outpatient R BENSONENEIDA RENEREYNA [facility] B [id number] Univers 10:45:00 11:07:02 BENSONANGELO RENE ity of [facility] 2022-09-19 2022-09-19 Routine [facility] 1.2.840.114 [id number] Univers 10:45:00 11:07:02 Angelo TAYLOR 350.1.13.10 i ty of Visit [place].2.[place] HE[place] [id number] [address] 2022-09-19 2022-09-[address] [facility] 1.2.840.114 10 [id number] Univers 00:00:00 00:00:00 (Out) Eneidareyna TIMOTHYKENNETH 350.1.13.10 i ty of [place].2.7.2.[place] [id number] Nj dical NAL [address] [place] [address] 2022-09-19 2022-09-19 Telephone [facility] 1.2.840.11 4 [id number] Univers 00:00:00 00:00:00 Angelo TAYLOR 350.1.13.10 it y of [place].2.[place] [facility] [id number] [address] 2022-09-14 2022-09-14 Nurse Niki Mann 1.2.840.114 10 [id number] Univers 00:00:00 00:00:00 Triage BAILEY 350.1.13.10 it y of HOSPITAL 4.2.7.2.686 Marty as [id number] [address] 2022-09-11 2022-09-12 Inpatient U REBEKAH VAZ [facility] [id number] Univers 05:42:00 13:45:00 ity of [facility] 2022-09-11 2022-09-12 Hospital Rebekah Vaz [facility] 1.2.840.114 [id number] Univers 05:42:00 13:45:00 Encounter Yonathan MARSHALL 350.1.13.10 ity of [place].2.7.2.[place] [id number] [facility] 083 Branch 2022-09-11 2022-09-11 Surgery Rebekah Vaz [facility] 1.2.184.897 [id number] Univers 07:50:00 09:49:00 Yonathan MARSHALL 350.1.13.10 i ty of [place] 4.2.7.2.686 [facility] [id number] [facility] 013 [place] 2022-09-11 2022-09-11 Anesthesia Ruben Sibley [facility] 1.2.840.1 14 [id number] Univers 08:08:00 09:45:00 Event Jeremie Baugh 35 0.1.13.10 ity of [place] 4.2.7.2.686 [facility] [phone] [facility] 013 [place] 2022-09-11 2022-09-11 Orders Doctor ADRIÁN 1.2.840.114 [id number] Univers 00:00:00 00:00:00 Only Unassigned, BAILEY 350.1.13.10 [facility] 4.2.7.2.686 [facility] [phone] [facility] 009 [place] 2022-09-09 2022-09-09 Sexer Mehdi Hernandez Lab Main [facility] 1.2.8 40.114 [id number] Univers 10:15:00 10:30:00 Visit Rebekah Vaz Yonathan MARSHALL 350.1.13.10 ity of [place] 4.2.7.2.686 [facility] PROFESSIO [phone] Nj dical NAL 353 [facility] 2022-09-09 2022-09-09 Outpatient R REBEKAH VAZ [facility] [id number] Univers 10:15:00 10:15:00 ity of [facility] 2022-09-05 2022-09-05 Outpatient R ТАТЬЯНА REBEKAH [facility] [id number] Univers 14:00:00 14:14:35 ity of [facility] 2022-09-05 2022-09-05 Routine Татьяна [facility] 1.2.840.114 10 [id number] Univers 14:00:00 14:14:35 Yonathan TAYLOR 350.1.13.10 i ty of Visit WOMEN'S 4.2.7.2.686 [facility] [id number] [address] 2022-09-03 2022-09-04 Outpatient X REBEKAH VAZ [facility] [id number] Univers 23:22:00 02:50:00 ity of [facility] 2022-09-03 2022-09-04 [facility] 1.2.840.114 10 [id number] Univers 23:22:00 02:50:00 Cam ROLANDO 350.1.13.10 i ty of [place] 4.2.7.2.686 [facility] [id number] [facility] 0[address] [place] 2022-09-03 2022-09-03 Sexer Ultrasound[facility] 1.2 .840.114 [id number] Univers 09:45:00 10:15:00 Visit Shawn Alfaro HOUSING DEVELOPMENT SPECIALIST 350.1.13.10 ity Severo [facility] 4.2.7.2.686 [facility] [id number] Med ical & CHILD [address] [place] [address] 2022-09-03 2022-09-03 Outpatient P SEVERO MCCLELLAN [facility] [id number] Univers 09:45:00 10:10:35 [facility] 2022-09-03 2022-09-03 Nurse ADRIÁN Wright 1.2.840.114 [id number] Univers 00:00:00 00:00:00 Triage Manuel AVALOS 350.1.13.10 ity of [facility] 4.2.7.2.686 [facility] [id number] [facility] 019 [place] 2022-08-29 2022-08-29 Outpatient R REBEKAH VAZ [facility] [id number] Univers 11:00:00 12:14:43 ity [facility] 2022-08-29 2022-08-29 Routine Rebekah Vaz [facility] LAINEZ 1.2.840.114 [id number] Univers 11:00:00 12:14:43 Cam CLAUDIA 350.1.13.10 i ty of Visit WOMEN'S 4.2.7.2.686 [facility] [id number] [address] 2022-08-29 2022-08-29 Orders Doctor ADRIÁN 1.2.840.114 [id number] Univers 00:00:00 00:00:00 Only Unassigned, BAILYE 350.1.13.10 ity of [place] HOSPITAL 4.2.7.2.686 Marty as [id number] [address] 2022-08-27 2022-08-27 Telephone Rebekah Vaz [facility] 1.2.840.114 10 [id number] Univers 00:00:00 00:00:00 Cam [place] 350.1.13.10 i ty of [place].2.7.2.[place] [id number] [address] 2022-08-27 2022-08-27 Telephone Rebekah Vaz [facility] 1.2.840.114 10 [id number] Univers 00:00:00 00:00:00 Cam [place] 350.1.13.10 i ty of [place] 4.2.7.2.[place] [id number] [address] 2022-08-27 2022-08-27 Orders Doctor ADRIÁN 1.2.840.114 [id number] Univers 00:00:00 00:00:00 Only Unassigned, BAILEY 350.1.13.10 ity of [place] HOSPITAL 4.2.7.2.686 Marty as [id number] [address] 2022-08-23 2022-08-23 Nurse ADRIÁN Norton 1.2.840.114 [id number] Univers 00:00:00 00:00:00 Triage Valarie AVALOS 350.1.13.10 ity of HOSPITAL 4.2.7.2.686 [place] as [id number] [address] 2022-08-22 2022-08-22 Letter ADRIÁN Wills 1.2.840.114 [id number] Univers 00:00:00 00:00:00 (Out) Trinity AVALOS 350.1.13.10 it y of HOSPITAL 4.2.7.2.686 [place] as [id number] [address] 2022-08-21 2022-08-21 Outpatient R LELA [facility] [id number] Univers 18:40:00 19:09:45 CECELIA ity of [facility] 2022-08-21 2022-08-21 Urgent Cecelia Vogel [facility] 1.2.840.114 [id number] Univers 18:40:00 19:09:45 Care Unknown, Attending HEALTH 350.1.13.10 ity of [place] 4.2.7.2.686 Marty as EMMETT?BLEA [id number] [address] MEDICAL OFFICE [facility] 2022-08-21 2022-08-21 Letter Provider, [facility] 1.2.916.818 [id number] Univers 00:00:00 00:00:00 (Out) Ang HEALTH 350.1.13.10 it y of Urgent Care [place] 4.2.7.2.686 [place] EMMETT?BLEA [id number] [address] OFFICE [facility] 2022-08-20 2022-08-20 Telephone Vaz Rebekah [facility] 1.2.840.114 [id number] Univers 00:00:00 00:00:00 Cam CLAUDIA 350.1.13.10 it [place] [id number] [address] 2022-08-20 2022-08-20 Orders Doctor ADRIÁN 1.2.840.114 [id number] Univers 00:00:00 00:00:00 Only Unassigned, BAILEY 350.1.13.10 ity of [place] [facility] 4.2.7.2.686 Marty as [id number] [address] 2022-08-15 2022-08-15 Outpatient R DEE [facility] [id number] Univers 11:00:00 11:00:00 ROD anglin of [facility] 2022-08-15 2022-08-15 Orders Doctor ADRIÁN 1.2.840.114 [id number] Univers 00:00:00 00:00:00 Only Unassigned, BAILEY 350.1.13.10 ity of [place] [facility] 4.2.7.2.686 Marty as [id number] [address] 2022-08-14 2022-08-14 Outpatient R REBEKAH VAZ [facility] [id number] Univers 09:45:00 10:43:25 ity of [facility] 2022-08-14 2022-08-14 Routine Rebekah Vaz [facility] 1.2.023.586 [id number] Univers 09:45:00 10:43:25 Cam [place] 350.1.13.10 ity of Visit [place].2.[place] [id number] Nj dical NAL 134 [facility] 2022-08-11 2022-08-12 Outpatient P AMNA [facility] [id number] Univers 18:26:00 [facility]:00[facility] 2022-08-11 2022-08-12 [facility] Shawn Alfaro COUNT INCLUDES THE [facility] 1.2.840.1 14 [id number] Univers 18:26:00 00:00:00 Encounter Susanna Woo [place] 350. 1.13.10 ity [facility] 4.2.7.2.686 [place] as [id number] [address] 2022-08-11 2022-08-11 Telephone Pcp, [facility] 1.2.755.834 [id number] Univers 00:00:00 00:00:00 Patient HOUSING DEVELOPMENT SPECIALIST 350.1.13.10 it y of Does Not [place] MATERNAL [id number] Med ical & CHILD 107 [facility] 2022-08-06 2022-08-06 Outpatient P SHAWN ALFARO [facility] [id number] Univers 09:30:00 10:31:07 [facility] 2022-08-06 2022-08-06 Sexer Ultrasound, Margie [facility] 1.2 .840.114 [id number] Univers 09:30:00 10:00:00 Visit Shawn Alfaro HOUSING DEVELOPMENT SPECIALIST 350.1.13.10 ity of [facility] 4.2.7.2.686 Marty as MATERNAL [id number] Med ical & CHILD 369 [facility] 2022-07-312022-07-31 Sexer 2, Adc Lab [facility] 1.2.840.114 [id number] Univers 09:45:00 10:00:00 Visit Rebekah Vaz ROLANDO 350.1.13.10 ity of [place] 4[place]7.2.[place] [phone] [place]ical NAL 353 [facility] 2022-07-31 2022-07-31 Outpatient R REBEKAH VAZ [facility] [id number] Univers 09:00:00 09:29:39 ity of [facility] 2022-07-31 2022-07-31 Routine Rebekah Vaz [facility] [id number] [id number] Univers 09:00:00 09:29:39 Yonathan MARSHALL 350.1.13.10 ity of [place] 4[place] [phone] [place] dical NAL 134 [facility] 2022-07-30 2022-07-30 Outpatient P ТАТЬЯНА REBEKAH [facility] CHRISTOPHER [id number] Univers 16:50:00 19:59:00 ity of [facility] 2022-07-30 2022-07-30 Hospital Rebekah Vaz [facility] 1.2.840.114 [id number] Univers 16:50:00 19:59:00 Encounter Yonathan MARSHALL 350.1.13.10 ity of [place] 4.2.7.2.686 [facility] [id number] [address] 2022-07-30 2022-07-30 Emergency X [facility]FORMERLY [facility], [facility] ERT [id number] Univers 01:40:00 02:13:00 CHRISTOPHMANI it y of [facility] 2022-07-30 2022-07-30 Emergency [place], [facility] 1.2.336.490 [id number] Univers 01:40:00 02:13:00 Kashif MARSHALL 350.1.13.10 ity of [place] 4.2.7.2.686 [facility] [id number] [address] 2022-07-30 2022-07-30 Telephone Rebekah Vaz [facility] 1.2.840.114 [id number] Univers 00:00:00 00:00:00 Cam ROLANDO 350.1.13.10 i ty of [facility] 4.2.[place] [id number] Nj elroylala NICO 134 [facility] 2022-07-24 2022-07-24 Telephone Rebekah Vaz [facility] 1.2.840.114 [id number] Univers 00:00:00 00:00:00 Yonathan TAYLOR 350.1.13.10 it y of [place] [id number] [address] 2022-07-22 2022-07-22 Telephone [facility] 1.2.840.11 4 [id number] Univers 00:00:00 00:00:00 Angelo TAYLOR 350.1.13.10 it y of [place] [id number] [address] 2022-07-18 2022-07-18 Urgent Vernon Gonzalez [facility] 1.2.840.114 [id number] Univers 11:00:00 11:20:00 Care Unknown, Attending HEALTH 350.1.13.10 ity of [place] 4.2.7.2.686 Marty as EMMETT?BLEA [id number] Nj marcela [address] MEDICAL OFFICE [facility] 2022-07-18 2022-07-18 Routine [facility] 1.2.840.114 [id number] Univers 10:00:00 10:00:00 Angelo TAYLOR 350.1.13.10 i ty of Visit [place] [id number] [address] 2022-07-18 2022-07-18 Outpatient R ANGELO RODRIGUEZ [facility] B [id number] Univers 10:00:00 09:09:37 ANGELO RODRIGUEZ ity of [facility] 2022-07-18 2022-07-18 Letter Vernon Gonzalez [facility] 1.2.840.114 [id number] Univers 00:00:00 00:00:00 (Out) C HEALTH 350.1.13.10 it y of [place] 4.2.7.2.686 Marty as EMMETT?BLEA [phone] N[place] marcela MYERS [address] [place] [address] MEDICAL OFFICE BUILDING 2022-07-11 2022-07-11 Outpatient R DEE [facility] [id number] Univers 10:00:00 10:00:00 ROD anglin [facility] 2022-07-09 2022-07-09 Sexer Ultrasound, [facility] 1.2 .840.114 [id number] Univers 09:30:00 10:00:00 Visit Shawn Alfaro HOUSING DEVELOPMENT SPECIALIST 350.1.13.10 ity of REGIONAL 4.2.7.2.686 Marty as MATERNAL [id number] Med ical & CHILD [address] [place] [address] 2022-07-09 2022-07-09 Outpatient P SHAWN ALFARO [facility] [id number] Univers 09:30:00 09:46:22 [facility] 2022-07-03 2022-07-03 Outpatient R LM [facility] [id number] Univers 10:10:36 23:59:00 [facility] 2022-07-03 2022-07-03 [facility] Lm [facility] 1.2.840.114 [id number] Univers 10:10:36 23:59:00 Encounter Carolyn [facility] 350.1.13.10 ity of [place] 4.2.7.2.686 [facility] [id number] [facility] [address] [place] 2022-07-01 2022-07-01 Outpatient R MIGUEL ANGEL [facility] [id number] Univers 10:15:00 11:12:59 KASSIDY anglin [facility] 2022-07-01 2022-07-01 Routine Admarine, [facility] 1.2.584.729 [id number] Univers 10:15:00 11:12:59 Kassidy TAYLOR 350.1.13.10 ity of Visit WOMEN'S 4.2.7.2.686 [facility] [id number] [facility] [address] [place] 2022-07-01 2022-07-01 Telephone Rebekah Vaz [facility] 1.2.840.114 [id number] Univers 00:00:00 00:00:00 Yonathan MARSHALL 350.1.13.10 i ty of [place] 4.2.7.2.[place] [id number] Nj dical NAL 134 [facility] 2022-06-30 2022-06-30 Outpatient R MAICO SAINI [facility] [id number] Univers 13:45:00 14:24:52 ity of [facility] 2022-06-30 2022-06-30 Telemedici [facility] 1.2.8 40.114 [id number] Univers 13:45:00 14:24:52 ne Visit Maico Saini HOUSING DEVELOPMENT SPECIALIST 350.1.13.10 ity General acute hospital 4.2.7.2.686 Marty as MATERNAL [id number] Med ical & CHILD 125 [facility] 2022-06-30 2022-06-30 Sexer Mehdi [facility] Main [facility] 1.2.8 40.114 [id number] Univers 09:45:00 10:00:00 Visit Rebekah Vaz Yonathan MARSHALL 350.1.13.10 ity [facility] 4.2.7.2.[place] [phone] Nj dical [facility] 353 [facility] 2022-06-30 2022-06-30 Nurse ADRIÁN Schultz 1.2.840.114 [id number] Univers 00:00:00 00:00:00 Triage Jennifer AVALOS 350.1.13.10 it y of [facility] 4.2.7.2.686 Marty as [id number] [facility] [address] [place] 2022-06-25 2022-06-25 Case KELLI Amato 1.2.997.397 [id number] Univers 00:00:00 00:00:00 Management [facility] 350.1.13.10 ity of [facility] 4.2.7.2.686 [place] [id number] [facility] [address] [place] 2022-06-23 2022-06-24 Outpatient R FANTASMA [facility] [id number] Univers 13:00:00 10:54:16 YENNY it y of S, OROPEZA [facility] 2022-06-23 2022-06-24 Telemedici Faculty, Pon[facility] 1.2.840.114 [id number] Univers 13:00:00 10:54:16 ne Visit Johnna Chowdhury HOUSING DEVELOPMENT SPECIALIST 350.1 .13.10 ity of [facility] 4.2.7.2.686 Marty as MATERNAL [id number] Med ical & CHILD 107 [facility] 2022-06-20 2022-06-20 Outpatient R REBEKAH VAZ [facility] [id number] Univers 09:15:00 10:20:21 ity of [facility] 2022-06-20 2022-06-20 Routine Rebekah Vaz [facility] LAINEZ 1.2.840.114 [id number] Univers 09:15:00 10:20:21 Yonathan TAYLOR 350.1.13.10 i ty of Visit [place] [id number] [address] 2022-06-20 2022-06-20 Orders Doctor ADRIÁN 1.2.840.114 [id number] Univers 00:00:00 00:00:00 Only Unassigned, BAILEY 350.1.13.10 ity of [place] [facility] 4.2.7.2.686 Marty as [id number] [address] 2022-06-19 2022-06-19 Telephone Rebekah Vaz [facility] 1.2.840.114 [id number] Univers 00:00:00 00:00:00 Yonathan [facility] 350.1.13.10 i ty of [place] 4.2.7.2.[place] [id number] Nj dical [address] 2022-06-19 2022-06-19 Telephone Rebekah Vaz [facility] 1.2.840.114 [id number] Univers 00:00:00 00:00:00 Yonathan TAYLOR 350.1.13.10 it y of [place] [id number] [address] 2022-06-11 2022-06-11 Outpatient P [facility] [id number] Univers 09:30:00 09:30:00 ity of [facility] 2022-05-30 2022-05-30 Outpatient R DARSHAN VAZEN [facility] [id number] Univers 09:00:00 09:00:00 ity [facility] 2022-05-27 2022-05-27 Sexer Ultrasound, Mehdi [facility] 1.2 .840.114 [id number] Univers 13:45:00 14:30:51 Visit VazRebekah Yonathan MARSHALL 350.1.13.10 ity of Fantasma WootensolomonJohnna [place] 4.2.7.2. 686 [facility] [id number] Nj marcela WALSH [address] BUILDING 2022-05-27 2022-05-27 Outpatient P MEEK [facility] [id number] Univers 13:45:00 13:45:00 YENNY it y of JOHNNA Zhao [facility] 2022-05-26 2022-05-26 Outpatient R RONNI [facility] [id number] Univers 11:00:00 17:02:24 [facility] 2022-05-26 2022-05-26 Telemedici Faculty, Poncho Rmchp [facility] 1.2.840.114 [id number] Univers 11:00:00 17:02:24 ne Visit Julian Elena HOUSING DEVELOPMENT SPECIALIST 350.1.13. 10 ity General acute hospital 4.2.7.2.686 Marty as MATERNAL [id number] Med ical & CHILD 107 [facility] 2022-05-26 2022-05-26 Telephone [facility] 1.2.840.114 [id number] Univers 00:00:00 00:00:00 Resale Therapy 350.1.13.10 it y of [place] 4.2.7.2.686 Marty as EMMETT?BLEA [id number] Nj marcela MARQUESEY [address] [place] MEDICAL OFFICE BUILDING 2022-05-23 2022-05-23 Outpatient R ТАТЬЯНА REBEKAH [facility] [id number] Univers 09:15:00 09:17:22 ity [facility] 2022-05-23 2022-05-23 Routine Rebekah Vaz [facility] 1.2.840.114 97 [id number] Univers 09:15:00 09:17:22 Yonathan TAYLOR 350.1.13.10 i ty of Visit [place] [id number] [address] 2022-05-23 2022-05-23 Letter Rebekah Vaz [facility] 1.2.840.114 97 [id number] Univers 00:00:00 00:00:00 (Out) Yonathan TAYLOR 350.1.13.10 it y of [place].2.[place].2.[place] [id number] [address] 2022-05-21 2022-05-21 Outpatient R ANGELO RODRIGUEZ [facility] [id number] Univers 15:00:00 15:39:34 [facility] 2022-05-21 2022-05-21 Routine [facility] 1.2.840.114 [id number] Univers 15:00:00 15:39:34 Angelo TAYLOR 350.1.13.10 i ty of Visit [place] 4.2.7.2.[place] [id number] [address] 2022-05-21 2022-05-21 Letter Phu [facility] 1.2.840.114 [id number] Univers 00:00:00 00:00:00 (Out) Angelo TAYLOR 350.1.13.10 it y of [place] [id number] [address] 2022-05-20 2022-05-20 Orders Doctor ADRIÁN 1.2.840.114 [id number] Univers 00:00:00 00:00:00 Only Unassigned, BAILEY 350.1.13.10 ity of [place] [facility] 4.2.7.2.686 Marty as [id number] [address] 2022-05-19 2022-05-19 Telephone Rebekah Vaz [facility] 1.2.840.114 [id number] Univers 00:00:00 00:00:00 Yonathan TAYLOR 350.1.13.10 it y [place].2.[place] [facility] [id number] [address] 2022-05-16 2022-05-16 Sexer Lab, Ang - Db [facility] 1.2.840.1 14 [id number] Univers 11:15:00 11:15:00 Visit Darrin Pricenick CANDELARIA 350.1.13.10 ity of [place] 4.2.7.2.686 Marty as EMMETT?BLEA [id number] [facility] 353 [facility] OFFICE [facility] 2022-05-16 2022-05-16 Outpatient [facility] [id number] Univers 10:30:00 10:30:00 ROD itcorona [facility] 2022-05-16 2022-05-16 Office [facility] 1.2.873.547 [id number] Univers 10:30:00 10:30:00 Visit Rod Mosqueda [employer] 350.1.13.10 it y of [place] 4.2.7.2.686 Matry as EMMETT?BLEA [id number] [facility]ICE [facility] 2022-05-16 2022-05-16 Nurse Nurse, Rusty [facility] 1.2.840.114 [id number] Univers 09:00:00 09:15:00 Visit Rebekah Vaz 350.1.13.10 ity of [place] [id number] [address] 2022-05-16 2022-05-16 Letter [facility] 1.2.231.954 [id number] Univers 00:00:00 00:00:00 (Out) Rod Mosqueda HEALTH 350.1.13.10 it y of [place] 4.2.7.2.686 Marty as EMMETT?BLEA [id number] [facility] OFFICE [facility] 2022-05-12 2022-05-12 Sexer 1, [facility] UNIVERSIT 1 .2.840.114 [id number] Univers 13:30:00 14:29:00 Visit Severo Mcclellan HEALTH 350.1.13.10 ity of [facility] 4.2.7.2.686 [place] [id number] [facility] [address] [place] 2022-05-12 2022-05-12 Outpatient P SEVERO MCCLELLAN [facility] [id number] Univers 13:30:00 13:30:00 ELEUTERIOSEVERO ity of [facility] 2022-05-10 2022-05-10 Nurse ADRIÁN Huber 1.2.840.114 [id number] Univers 00:00:00 00:00:00 Triage Christine AVALOS 350.1.13.10 it y of [facility] 4.2.7.2.686 Marty as [id number] [facility] [address] [place] 2022-05-09 2022-05-09 Outpatient R REBEKAH VAZ [facility] [id number] Univers 09:00:00 09:15:22 ity of [facility] 2022-05-09 2022-05-09 Nurse Nurse, Rusty [facility] 1.2.840.114 [id number] Univers 09:00:00 09:15:22 Visit Rebekah Vaz 350.1.13.10 ity of [facility] 4.2.7.2.[place] [id number] [facility] [address] 2022-05-09 2022-05-09 Telephone [facility] 1.2.840.114 [id number] Univers 00:00:00 00:00:00 Rod Mosqueda [facility] 350.1.13.10 it y of [place] 4.2.7.2.686 Marty as EMMETT?BLEA [id number] Nj marcela MYERS [address] [place] MEDICAL OFFICE [facility] 2022-05-05 2022-05-05 Sexer Mehdi [facility] Main [facility] 1.2.8 40.114 [id number] Univers 13:45:00 14:00:00 Visit Aydin Ferrera 350.1.13.10 ity of Rebekah Vaz 4.2.7.2.686 [place] PROFESSIO [id number] Nj marcela WALSH 353 [facility] 2022-05-05 2022-05-05 Outpatient R DARSHAN VAZEN [facility] [id number] Univers 13:45:00 13:45:00 ity [facility] 2022-05-05 2022-05-05 Telephone Татьяна [facility] 1.2.840.114 [id number] Univers 00:00:00 00:00:00 Cam ROLANDO 350.1.13.10 i ty of [place] 4.2.7.2.686 [place] [id number] Nj dical [address] 2022-05-02 2022-05-02 Outpatient R ТАТЬЯНА [facility] [id number] Univers 14:30:00 16:22:52 ity of [facility] 2022-05-02 2022-05-02 Routine Татьяна [facility] 1.2.840.114 [id number] Univers 14:30:00 16:22:52 Cam CLAUDIA 350.1.13.10 i ty of Visit [facility] 4.2.7.2.686 [facility] [id number] [address] 2022-04-28 2022-04-28 Outpatient P RONNI [facility] [id number] Univers 14:15:00 15:28:24 JULIAN anglin [facility] 2022-04-28 2022-04-28 Sexer 2, [facility] 1 .2.840.114 [id number] Univers 14:15:00 14:45:00 Visit Julian Elena [facility] 350.1.13. 10 ity of CL[place] 4.2.7.2.[place] [id number] [address] 2022-04-28 2022-04-28 Telephone Jamila Zaldivar [facility] FATOU 1.2.840.11 4 [id number] Univers 00:00:00 00:00:00 CLAUDIA 350.1.13.10 it [place] [id number] [address] 2022-04-25 2022-04-25 Nurse Nurse, [facility] Womens [facility] 1.2.840.114 [id number] Univers 10:00:00 10:00:00 Visit Rebekah Vaz Yonathan MARSHALL 350.1.13.10 ity of [facility] 4.2.7.2.686 [place] [id number] Nj dic[address] 2022-04-25 2022-04-25 Outpatient R REBEKAH VAZ [facility] [id number] Univers 10:00:00 09:46:21 ity of [facility] 2022-04-24 2022-04-24 Orders Doctor ADRIÁN 1.2.840.114 [id number] Univers 00:00:00 00:00:00 Only Unassigned, BAILEY 350.1.13.10 ity of [place] [facility] 4.2.7.2.686 Marty as [id number] [address] 2022-04-22 2022-04-22 Telephone Rebekah Vaz [facility] 1.2.840.114 [id number] Univers 00:00:00 00:00:00 Yonathan MARSHALL 350.1.13.10 i ty of [facility] 4.2.7.2.686 [place] [id number] Nj dical NAL [address] [place] [address] 2022-04-18 2022-04-18 Telephone Rebekah Vaz [facility] 1.2.840.114 96 [id number] Univers 00:00:00 00:00:00 Yonathan MARSHALL 350.1.13.10 i ty of [facility] 4.2.7.2.686 [place] 277.0597489 Nj dic[address] 2022-04-15 2022-04-15 Orders Doctor ADRIÁN 1.2.840.114 [id number] Univers 00:00:00 00:00:00 Only Unassigned, BAILEY 350.1.13.10 ity of [place] [facility] 4.2.7.2.686 Marty as [id number] [address] 2022-04-14 2022-04-14 Patient Jaxon [facility] 1.2.840.114 [id number] Univers 00:00:00 00:00:00 Secure Msg Ana Cristina MARSHALL 350.1.13.10 ity of [facility] 4.2.7.2.686 [place] [id number] Nj dical NAL [address] BUILDING 2022-04-13 2022-04-13 Case REID Hoskins 1.2.038.166 [id number] Univers 00:00:00 00:00:00 Management Conchita PEDIATRIC 350.1.13.10 ity of [place].2.7.2.[place] [id number] [facility] PRIMARY [address] CARE CLINIC 2022-04-11 2022-04-11 Outpatient X REBEKAH VAZ [facility] CHRISTOPHER [id number] Univers 15:23:00 19:00:00 ity of [facility] 2022-04-11 2022-04-11 Emergency Wicho Boateng [facility] 1.2.840.1 14 [id number] Univers 15:23:00 19:00:00 ZenNatividdabarrett MARSHALL 350.1.13.10 ity of Rebekah Vaz 4.2.7.2.686 [facility] [id number] [facility] [address] 2022-04-11 2022-04-11 Nurse Nurse, [facility] 1.2.840.114 [id number] Univers 14:45:00 15:05:00 Visit Cecelia Vogel [facility] 350.1.13.[address] [facility] 4.2.7.2.686 Marty as EMMETT?BLEA [id number] Nj dical KNEY [address] [place] MEDICAL OFFICE BUILDING 2022-04-11 2022-04-11 Outpatient R LELA [facility] [id number] Univers 14:45:00 15:02:41 NANCYIA ity [facility] 2022-04-11 2022-04-11 Outpatient R LELA [facility] [id number] Univers 14:20:00 14:20:00 CECELIA ity [facility] 2022-04-10 2022-04-10 Outpatient R [facility] [id number] Univers 08:45:00 08:45:00 ity [facility] 2022-04-02 2022-04-02 Outpatient R REBEKAH VAZ [facility] [id number] Univers 10:00:00 10:44:45 ity of [facility] 2022-04-02 2022-04-02 [facility] 1.2.653.682 [id number] Univers 10:00:00 10:44:45 Cam ROLANDO 350.1.13.10 ity of Visit [facility] 4.2.7.2.[place] [id number] [facility] [address] [facility] 2022-04-02 2022-04-02 Outpatient R REBEKAH VAZ [facility] [id number] Univers 10:00:00 10:44:45 ity of [facility] 2022-04-02 2022-04-02 Telephone Татьяна [facility] 1.2.840.114 [id number] Univers 00:00:00 00:00:00 Cam ROLANDO 350.1.13.10 i ty of [place] 4.2.7.2.[place] [id number] [address] 2022-04-02 2022-04-02 Orders Doctor ADRIÁN 1.2.840.114 [id number] Univers 00:00:00 00:00:00 Only Unassigned, BAILEY 350.1.13.10 ity of [place] [facility] 4.2.7.2.686 Marty as [id number] [facility] [address] [place] 2022-03-30 2022-03-30 Shirley Denson [facility] 1.2.840.114 [id number] Univers 00:00:00 00:00:00 Linda HEALTH 350.1.13.10 it y of [place] 4.2.7.2.686 Marty as EMMETT?BLEA [id number] [facility] [address] [place] MEDICAL OFFICE BUILDING 2022-03-24 2022-03-24 ANNETTE Haley 1.2.840.114 [id number] Univers 00:00:00 00:00:00 Management Rosa OLIVAS 350.1.13.10 ity of [place].2.7.2.[place] [id number] [facility] [address] [place] 2022-03-21 2022-03-21 ADRIÁN Murray 1.2.840.114 [id number] Univers 00:00:00 00:00:00 (Out) Rhonda AVALOS 350.1.13.10 it y of [facility] 4.2.7.2.686 Marty as [id number] [address] 2022-03-20 2022-03-20 Outpatient R LELA [facility] [id number] Univers 17:40:00 18:04:01 [facility] 2022-03-20 2022-03-20 Urgent [facility] 1.2.840.114 [id number] Univers 17:40:00 18:00:00 Care [facility] 350.1.13.10 it y of [place] 4.2.7.2.686 Marty as EMMETT?BLEA [id number] [address] MEDICAL OFFICE [facility] 2022-03-20 2022-03-20 Outpatient [facility] [id number] Univers 17:15:00 17:15:00 [facility] 2022-03-20 2022-03-20 Letter Provider, [facility] 1.2.091.110 [id number] Univers 00:00:00 00:00:00 (Out) [facility] 350.1.13.10 it y of Urgent Care [place] 4.2.7.2.686 [place] EMMETT?BLEA [id number] [address] MEDICAL OFFICE [facility] 2022-03-18 2022-03-18 Outpatient R NATIVIDAD ZALDIVARN [facility] [id number] Univers 13:00:00 13:00:00 ity of [facility] 2022-03-07 2022-03-07 Outpatient R NTAIVIDAD ZALDIVARN [facility] [id number] Univers 08:30:00 08:30:00 ity of [facility] 2022-03-03 2022-03-03 Emergency X SHELBY, [facility] ERT [id number] Univers 16:18:00 16:40:00 KASHIF it y of [facility] 2022-03-03 2022-03-03 [facility] 1.2.125.861 [id number] Univers 16:18:00 16:40:00 Christopher [place] 350.1.13.10 ity of [place] 4.2.7.2.686 [facility] [id number] [facility] [address] 2022-03-03 2022-03-03 Outpatient R DIANE [facility] [id number] Univers 09:45:00 09:45:00 SONI ity [facility] 2022-02-27 2022-02-27 Outpatient R JAMILA ZALDIVAR [facility] [id number] Univers 13:45:00 14:33:07 ity [facility] 2022-02-27 2022-02-27 Routine Jamila Zaldivar [facility] 1.2.840.114 [id number] Univers 13:45:00 14:33:07 CLAUDIA 350.1.13.10 i ty of Visit [place] 4.2.7.2.686 [facility] [id number] [facility] [address] 2022-02-27 2022-02-27 Outpatient R JAMILA ZALDIVAR [facility] [id number] Univers 13:45:00 13:45:00 ity [facility] 2022-02-11 2022-02-11 Outpatient R KOBE [facility] [id number] Univers 14:00:00 14:00:00 WENTONG ity [facility] 2022-02-11 2022-02-11 Outpatient R KOBE [facility] [id number] Univers 14:00:00 14:00:00 [facility] 2022-02-08 2022-02-08 ADRIÁN Murray 1.2.840.114 [id number] Univers 00:00:00 00:00:00 (Out) Rhonda AVALOS 350.1.13.10 it y of HOSPITAL 4.2.7.2.686 Marty as [id number] [facility] [address] 2022-02-07 2022-02-07 Urgent Jarett ARANTONELLA 1.2.840.114 [id number] Univers 17:40:00 18:00:00 Care [facility] 350.1.13.10 it y of [place] 4.2.7.2.686 Marty as EMMETT?BLEA [phone] [place] [address] MEDICAL OFFICE [facility]ILDING 2022-02-07 2022-02-07 Outpatient R JARETT [facility] [id number] Univers 17:40:00 17:49:36 LINDA ity [facility] 2022-02-07 2022-02-07 Outpatient R [facility] [id number] Univers 09:00:00 09:00:00 ity of [facility] 2022-02-06 2022-02-06 Outpatient R JAMILA ZALDIVAR [facility] [id number] Univers 13:00:00 13:54:43 ity of [facility] 2022-02-06 2022-02-06 Routine Jamila Zaldivar [facility] 1.2.840.114 [id number] Univers 13:00:00 13:54:43 CLAUDIA 350.1.13.10 i ty of Visit [facility] 4.2.7.2.686 [place] [facility] [id number] [address] 2022-02-06 2022-02-06 Outpatient R JAMILA ZALDIVAR [facility] [id number] Univers 13:00:00 13:00:00 ity of [facility] 2022-02-06 2022-02-06 Orders Doctor ADRIÁN 1.2.840.114 [id number] Univers 00:00:00 00:00:00 Only Unassigned, BAILEY 350.1.13.10 ity of [place] [facility] 4.2.7.2.686 Marty as [id number] [address] 2022-01-31 2022-01-31 Outpatient R JAMILA ZALDIVAR [facility] [id number] Univers 13:15:00 14:15:21 ity of [facility] 2022-01-31 2022-01-31 Routine Jamila Zaldivar [facility] 1.2.840.114 [id number] Univers 13:15:00 14:15:21 ROLANDO 350.1.13.10 ity of [place]2.7.2.[place] [facility] [id number] [place] [address] 2022-01-31 2022-01-31 Outpatient R NATIVIDAD ZALDIVARN [facility] [id number] Univers 13:30:00 13:30:00 ity of [facility] 2022-01-29 2022-01-29 [facility], Ang - Db [facility] 1.2.840.1 [id number] Univers 14:30:00 14:58:49 Visit Jamila Zaldivar 350.1.13.10 ity of [place] 4.2.7.2.686 Marty as EMMETT?BLEA [id number] [address] OFFICE [facility] 2022-01-29 2022-01-29 Sexer Lab, Ang [facility] 1.2.840.1 14 [id number] Univers 14:30:00 14:45:00 Visit Jamila Zaldivar [facility] 350.1.13.10 ity of [place] 4.2.7.2.686 Marty as EMMETT?BLEA [phone] [address] 2022-01-29 2022-01-29 Outpatient R JAMILA ZALDIVAR [facility] [id number] Univers 14:30:00 14:30:00 ity of [facility] 2022-01-29 2022-01-29 Outpatient R JAMILA ZALDIVAR [facility] [id number] Univers 10:30:00 10:30:00 ity [facility] 2022-01-29 2022-01-29 Telephone Jamila Zaldivar [facility] 1.2.840.11 [id number] Univers 00:00:00 00:00:00 CLAUDIA 350.1.13.10 it [place] [id number] [address] 2022-01-29 2022-01-29 Patient Jaxon [facility] 1.2.840.114 [id number] Univers 00:00:00 00:00:00 Secure Msg Ana Cristina MARSHALL 350.1.13.10 ity of [facility] [place] [id number] [address] 2022-01-29 2022-01-29 Telephone Jamila Zaldivar [facility] 1.2.840.11 4 [id number] Univers 00:00:00 00:00:00 CLAUDIA 350.1.13.10 it y of [place] [id number] [address] 2022-01-27 2022-01-27 Sexer Lab, Ang - Db [facility] 1.2.840.1 14 [id number] Univers 10:45:00 10:45:00 Visit Jamila Zaldivar [employer] 350.1.13.10 ity of [place] 4.2.7.2.686 Marty as EMMETT?BLEA [id number] [facility] [address] [place] MEDICAL OFFICE [facility] 2022-01-27 2022-01-27 Urgent Amanda Chinchilla [facility] 1.2.840. 114 [id number] Univers 10:20:00 10:40:00 [facility] 350.1.13.10 ity of [facility] 4.2.7.2.686 [place] as EMMETT?BLEA [id number] [facility] OFFICE [facility] 2022-01-27 2022-01-27 Outpatient R JAMILA ZALDIVAR [facility] [id number] Univers 08:30:00 09:36:17 ity of [facility] 2022-01-27 2022-01-27 Initial Jamila Zaldivar [facility] 1.2.840.114 [id number] Univers 08:30:00 09:36:17 CLAUDIA 350.1.13.10 i ty of Visit [place] [id number] [address] 2022-01-27 2022-01-27 Letter Jamila Zaldivar [facility] 1.2.840.114 [id number] Univers 00:00:00 00:00:00 (Out) CLAUDIA 350.1.13.10 it y of [place] [id number] [address] 2022-01-27 2022-01-27 Telephone Jamila Zaldivar LAINEZ 1.2.840.11 4 [id number] Univers 00:00:00 00:00:00 CLAUDIA 350.1.13.10 it y of [place] [id number] [facility] [address] 2022-01-27 2022-01-27 Orders Doctor ADRIÁN 1.2.840.114 [id number] Univers 00:00:00 00:00:00 Only Unassigned, BAILEY 350.1.13.10 ity of [place] [facility] 4.2.7.2.686 Marty as [id number] [facility] [address] 2022-01-08 2022-01-08 Refill Lela [facility] 1.2.840.114 [id number] Univers 00:00:00 00:00:00 Ranak HEALTH 350.1.13.10 it y of [place] 4.2.7.2.686 [place] as EMMETT?BLEA [id number] [address] MEDICAL OFFICE BUILDING 2021-12-11 2021-12-11 Telephone ADRIÁN Josue 1.2.058.092 [id number] Univers 00:00:00 00:00:00 Rhonda BAILEY 350.1.13.10 it y of [facility] 4.2.7.2.686 [place] as [id number] [facility] [address] [place] 2021-12-10 2021-12-10 Outpatient R LELA [facility] [id number] Univers 15:40:00 16:07:31 [facility] 2021-12-10 2021-12-10 Urgent Cecelia Vogel [facility] 1.2.840.114 [id number] Univers 15:40:00 16:07:31 Care Cassius [facility] 350.1.13.10 ity of [place] 42.7.2.686 Marty as EMMETT?BLEA [id number] [address] MEDICAL OFFICE BUILDING 2021-12-10 2021-12-10 Outpatient R LELA [facility] [id number] Univers 15:40:00 16:07:31 CECELIA corona [facility] 2021-10-28 2021-10-28 Outpatient R JARETT [facility] [id number] Univers 17:20:00 17:53:40 LINDA corona [facility] 2021-10-28 2021-10-28 [facility] 1.2.840.114 [id number] Univers 17:20:00 17:53:40 Care Linda HEALTH 350.1.13.10 it y of [place] 4.2.7.2.686 [place] as EMMETT?BLEA [id number] [address] MEDICAL OFFICE [facility] 2021-10-21 2021-10-21 Shirley [facility] 1.2.434.658 [id number] Univers 00:00:00 00:00:00 Conchita HEALTH 350.1.13.10 it y of [facility] 4.2.7.2.686 Marty as EMMETT?BLEA [id number] [address] MEDICAL OFFICE [facility] 2021-10-02 2021-10-02 Outpatient R REBEKAH VAZ [facility] [id number] Univers 14:00:00 14:00:00 [facility] 2021-10-01 2021-10-01 Outpatient R KOBE [facility] [id number] Univers 12:30:00 12:30:00 [facility] 2021-10-01 2021-10-01 Outpatient R KOBE [facility] [id number] Univers 10:00:00 10:00:00 [facility] 2021-09-30 2021-09-30 [facility] [id number] Univers 17:00:00 17:00:00 SONI [facility] 2021-09-28 2021-09-28 Outpatient R KING ALLISON [facility] [id number] Univers 09:20:00 09:35:47 VERNON [facility] 2021-09-27 2021-09-27 Outpatient R ERBEKAH VAZ [facility] [id number] Univers 12:30:00 12:30:00 [facility] 2021-09-27 2021-09-27 Rebekah Yao [facility] FATOU 1.2.840.114 [id number] Univers 00:00:00 00:00:00 Yonathan CLAUDIA 350.1.13.10 it y [place] [id number] [address] 2021-09-20 2021-09-20 Telephone [facility] 1.2.840.114 [id number] Univers 00:00:00 00:00:00 Yonathan TAYLOR 350.1.13.10 it y [place] [id number] [address] 2021-09-14 2021-09-14 Patient Kobe [facility] 1.2.840.114 [id number] Univers 00:00:00 00:00:00 Secure [facility] 350.1.13.10 ity of [facility] 4.2.7.2.686 Marty as EMMETT?BLEA [phone] Nj marcela [address] MEDICAL OFFICE BUILDING 2021-09-13 2021-09-13 Outpatient R ТАТЬЯНА [facility] [id number] Univers 11:15:00 12:08:16 ity of [facility] 2021-09-13 2021-09-13 Routine Татьяна [facility] 1.2.840.114 [id number] Univers 11:15:00 12:08:16 Yonathan TAYLOR 350.1.13.10 i ty of Visit [place] [id number] [address] 2021-09-13 2021-09-13 Letter Татьяна [facility] 1.2.840.114 [id number] Univers 00:00:00 00:00:00 (Out) Yonathan TAYLOR 350.1.13.10 it y of [place] [id number] [address] 2021-09-13 2021-09-13 Orders Doctor ADRIÁN 1.2.840.114 [id number] Univers 00:00:00 00:00:00 Only Unassigned, BAILEY 350.1.13.10 ity of [place] [facility] 4.2.7.2.686 Marty as [id number] [address] 2021-09-04 2021-09-04 Outpatient R ТАТЬЯНА [facility] [id number] Univers 15:00:00 15:00:00 ity of [facility] 2021-09-02 2021-09-02 Outpatient R DIANE [facility] [id number] Univers 09:45:00 09:45:00 SONI ity [facility] 2021-09-02 2021-09-02 Outpatient R KOBE [facility] [id number] Univers 00:00:00 00:00:00 [facility] 2021-09-02 2021-09-02 Outpatient R KOBE [facility] [id number] Univers 00:00:00 00:00:00 [facility] 2021-09-02 2021-09-02 Outpatient R KOBE [facility] [id number] Univers 00:00:00 00:00:00 [facility] 2021-08-30 2021-08-30 Outpatient R REBEKAH VAZ [facility] [id number] Univers 12:30:00 13:36:54 ity [facility] 2021-08-30 2021-08-30 Initial Rebekah Vaz [facility] 1.2.840.114 [id number] Univers 12:30:00 13:36:54 Yonathan TAYLOR 350.1.13.10 i ty of Visit [facility] 4.2.7.2.686 [facility] [id number] [address] 2021-08-30 2021-08-30 Letter Rebekah Vaz [facility] 1.2.840.114 [id number] Univers 00:00:00 00:00:00 (Out) Yonathan TAYLOR 350.1.13.10 it y [place] [id number] [address] 2021-08-29 2021-08-29 Outpatient R CASSIUS [facility] [id number] Univers 18:40:00 19:35:58 [facility] 2021-08-29 2021-08-29 Urgent Vernon Gonzalez [facility] 1.2.840.114 [id number] Univers 18:40:00 19:00:00 [facility] 350.1.13.10 ity of [place] 4.2.7.2.686 Marty as EMMETT?BLEA [id number] Nj marcela MYERS [address] [place] [place] MEDICAL OFFICE BUILDING 2021-08-29 2021-08-29 Outpatient R CASSIUS [facility] [id number] Univers 18:40:00 18:40:00 NELSON ity [facility] 2021-08-27 2021-08-27 Sexer Lab, Ang - Db [facility] 1.2.840.1 14 [id number] Univers 14:00:00 14:15:00 Visit Kobe [facility] 350.1.13.10 ity of [place] 4.2.7.2.686 Marty as EMMETT?BLEA [id number] Nj marcela MYERS [address] [place] MEDICAL OFFICE [facility] 2021-08-27 2021-08-27 Office Kobe [facility] 1.2.840.114 [id number] Univers 13:00:00 14:05:18 Visit [facility] 350.1.13.10 it y of [place] 4.2.7.2.686 Marty as EMMETT?BLEA [id number] Nj marcela MYERS [address] [place] MEDICAL OFFICE [facility] 2021-08-27 2021-08-27 Outpatient R KOBE [facility] [id number] Univers 13:00:00 14:05:18 [facility] 2021-08-27 2021-08-27 Outpatient R COLTON [facility] [id number] Univers 14:00:00 14:00:00 [facility] 2021-08-27 2021-08-27 Outpatient R KOBE [facility] [id number] Univers 14:00:00 14:00:00 [facility] 2021-08-27 2021-08-27 Orders Doctor ADRIÁN 1.2.840.114 [id number] Univers 00:00:00 00:00:00 Only Unassigned, BAILEY 350.1.13.10 ity of [place] [facility] 4.2.7.2.686 Marty as [phone] [address] 2021-08-27 2021-08-27 Letter Kobe [facility] 1.2.840.114 [id number] Univers 00:00:00 00:00:00 (Out) [facility] 350.1.13.10 it y of [place] 4.2.7.2.686 Marty as EMMETT?BLEA [id number] [facility] [address] [place] MEDICAL OFFICE BUILDING 2021-08-26 2021-08-26 Outpatient R CHAPINCITO [facility] [id number] Univers 09:00:00 09:00:00 [facility] 2021-08-26 2021-08-26 Outpatient R CHAPINCITO [facility] [id number] Univers 09:00:00 09:00:00 [facility] 2021-08-26 2021-08-26 Outpatient R CHAPINCITO [facility] [id number] Univers 09:00:00 09:00:00 [facility] 2021-08-23 2021-08-23 Outpatient R REBEKAH VAZ [facility] [id number] Univers 10:45:00 10:45:00 [facility] 2021-07-23 2021-07-23 Laboratory Only, Ang Db Test [facility] 1.2.8 40.114 [id number] Univers 18:00:00 18:15:00 Only Cassius [facility] 350.1.13.10 ity of [place] 4.2.7.2.686 Marty as EMMETT?BLEA [phone] [facility] [address] [place] MEDICAL OFFICE [facility] 2021-07-23 2021-07-23 Out[facility] [id number] Univers 18:00:00 18:00:00 NELSON ity [facility] 2021-07-23 2021-07-23 Outpatient [facility] [id number] Univers 16:00:00 16:00:00 NELSON ity [facility] 2021-07-23 2021-07-23 Outpatient R [facility] [id number] Univers 15:45:00 15:45:00 ity [facility] 2021-07-04 2021-07-04 Orders Doctor SAMPSON 1.2.840.114 [id number] Univers 00:00:00 00:00:00 Only Unassigned, BAILEY 350.1.13.10 [facility] 4.2.7.2.686 Marty as [id number] [address] 2021-06-26 2021-06-26 Outpatient R [facility] [id number] Univers 16:00:00 16:11:06 LIBBY mckeon [facility] 2021-06-26 2021-06-26 Urgent GreenNelson [facility] 1.2.840.114 [id number] Univers 14:02:21 14:22:21 Care Libby Gr J HEALTH 350.1.13.10 ity of [place] 4.2.7.2.686 Marty as EMMETT?BLEA [id number] [address] MEDICAL OFFICE BUILDING 2021-06-26 2021-06-26 Outpatient R [facility] [id number] Univers 14:00:00 14:00:00 LIBBY mckeon [facility] 2021-06-26 2021-06-26 Outpatient R [facility] [id number] Univers 10:00:00 10:00:00 ity [facility] 2021-06-24 2021-06-24 Outpatient [facility] [id number] Univers 10:00:00 10:00:00 SONI itcorona [facility] 2021-06-24 2021-06-24 Telephone [facility] 1.2.124.927 [id number] Univers 00:00:00 00:00:00 Soni Hinojosa HEALTH 350.1.13.10 i ty of [place] 4.2.7.2.686 Marty as EMMETT?BLEA [id number] [facility] [address] [place] MEDICAL OFFICE BUILDING 2021-06-21 2021-06-21 Outpatient R [facility] [id number] Univers 09:30:00 09:30:00 MUKUND ity [facility] 2021-06-21 2021-06-21 Shirley [facility] 1.2.840.114 [id number] Univers 00:00:00 00:00:00 Mukund HEALTH 350.1.13.10 it y of [place] 4.2.7.2.686 Marty as EMMETT?BLEA [id number] [address] MEDICAL OFFICE [facility] 2021-06-18 2021-06-18 Outpatient R CHARLES [facility] [id number] Univers 09:30:00 09:30:00 MUKUND anglin [facility] 2021-06-18 2021-06-18 [facility] 1.2.258.223 [id number] Univers 00:00:00 00:00:00 Mukund [employer] 350.1.13.10 it y of [place] 4.2.7.2.686 Marty as EMMETT?BLEA [id number] [address] MEDICAL OFFICE [facility] 2021-06-13 2021-06-13 Patient [facility] 1.2.840.114 [id number] Univers 00:00:00 00:00:00 Secure Msg Mukund [employer] 350.1.13.10 ity of [place] 4.2.7.2.686 Marty as EMMETT?BLEA [id number] [address] OFFICE [facility] 2021-06-12 2021-06-12 Outpatient R EMILI [facility] [id number] Univers 13:30:00 14:12:46 ERICJESUSITA anglin [facility] 2021-06-12 2021-06-12 Office [facility] 1.2.963.238 [id number] Univers 13:23:25 14:12:46 Visit Eric Hammond HOUSING DEVELOPMENT SPECIALIST 350.1.13.10 it y of [facility] 4.2.7.2.686 Marty as MATERNAL [id number] [facility] ical & CHILD [address] [place] [address] 2021-06-12 2021-06-12 Outpatient R EMILI [facility] [id number] Univers 13:30:00 13:30:00 ERICJESUSITA anglin [facility] 2021-06-07 2021-06-07 [facility] 1.2.840.114 [id number] Univers 10:32:59 23:59:00 Encounter Mukund [employer] 350.1.13.10 ity of [place] 4.2.7.2.686 Marty as EMMETT?BLEA [id number] Nj marcela MYERS [address] [place] MEDICAL OFFICE [facility] 2021-06-07 2021-06-07 Outpatient R CHARLES [facility] [id number] Univers 10:32:59 23:59:00 MUKUND anglin [facility] 2021-06-07 2021-06-07 Outpatient R CHARLES [facility] [id number] Univers 09:30:00 10:38:03 MUKUND anglin [facility] 2021-06-07 2021-06-07 Office [facility] 1.2.840.114 [id number] Univers 09:27:17 10:38:03 Visit Mukund HEALTH 350.1.13.10 it y of [place] 4.2.7.2.686 Marty as EMMETT?BLEA [id number] Nj marcela MYERS [address] [facility] OFFICE [facility] 2021-06-07 2021-06-07 Outpatient R CHARLES [facility] [id number] Univers 09:30:00 09:30:00 MUKUND anglin [facility] 2021-06-05 2021-06-05 Shirley [facility] 1.2.840.114 [id number] Univers 00:00:00 00:00:00 Linda HEALTH 350.1.13.10 it y of [place] 4.2.7.2.686 Marty as EMMETT?BLEA [id number] Nj marcela MYERS [address] [facility] OFFICE [facility] 2021-06-04 2021-06-04 Outpatient R CHARLES [facility] [id number] Univers 09:30:00 09:30:00 MUKUND anglin [facility] 2021-06-01 2021-06-01 Shirley [facility] 1.2.840.114 [id number] Univers 00:00:00 00:00:00 Mukund HEALTH 350.1.13.10 it y of [place] 4.2.7.2.686 Marty as EMMETT?BLEA [phone] Nj marclea [facility] 0[address] [facility] OFFICE [facility] 2021-05-31 2021-05-31 Shirley Denson [facility] 1.2.840.114 [id number] Univers 00:00:00 00:00:00 Linda HEALTH 350.1.13.10 it y of [place] 4.2.7.2.686 Marty as EMMETT?BLEA [id number] [facility] MY[facility] [address] [facility] OFFICE [facility] 2021-05-20 2021-05-20 Outpatient R CHAPINCITO [facility] [id number] Univers 13:30:00 13:30:00 JOSH derrek [facility] 2021-05-17 2021-05-17 Outpatient [facility] [id number] Univers 10:15:00 10:15:00 ERIC corona [facility] 2021-05-10 2021-05-10 Sexer Lab, [place] [facility] 1.2.840.1 14 [id number] Univers 13:53:17 14:07:26 Visit Soni Contreras [facility] 350.1.13.10 ity of [place] 4.2.7.2.686 Marty as Emmett?Blea [id number] [facility] [address] [facility] Office [facility] 2021-05-10 2021-05-10 Office Mukund Soto [facility] 1.2.840.114 [id number] Univers 12:57:45 13:53:07 Visit Soni Contreras [facility] 350.1.13.10 ity of [place] 4.2.7.2.686 Marty as Emmett?Blea [phone] Nj marcela myers 0[address] [facility] Office [facility] 2021-05-10 2021-05-10 Outpatient R DIANE, [facility] [id number] Univers 13:00:00 13:00:00 SONI anglin [facility] 2021-05-08 2021-05-08 Urgent Linda Denson [facility] 1.2.840.114 [id number] Univers 18:49:53 19:09:53 Care Amanda Chinchilla [facility] 350.1.13.10 ity of [place] 4.2.7.2.686 Marty as Emmett?Blea [id number] [facility] [address] [facility] Office [facility] 2021-05-08 2021-05-08 Outpatient R ISAIAH [facility] [id number] Univers 19:00:00 19:00:00 AMANDA banda f [facility] 2021-05-08 2021-05-08 Outpatient R [facility] [id number] Univers 17:20:00 17:20:00 ity [facility] 2021-04-25 2021-04-25 Routine [facility] 1.2.187.576 [id number] Univers 15:59:10 16:44:08 Eric Barrett HOUSING DEVELOPMENT SPECIALIST 350.1.13.10 i ty of Visit REGIONAL 4.2.7.2.686 Marty as MATERNAL [id number] Med ical & CHILD [address] [place] [address] 2021-04-25 2021-04-25 Out[facility] [id number] Univers 16:00:00 16:00:00 ERIC derrek [facility] 2021-03-31 2021-04-03 Hospital ADRIÁN Elena 1.2.759.931 [id number] Univers 16:58:00 13:59:00 Encounter Julian AVALOS 350.1.13.10 ity of [facility] 4.2.7.2.686 Marty as [id number] [address] 2021-04-02 2021-04-02 Outpatient [facility] [id number] Univers 14:15:00 14:15:00 ERIC derrek [facility] 2021-03-31 2021-04-01 Anesthesia [place] 1.2.840 .114 [id number] Univers 20:35:00 03:48:00 Event Adrián Parikh 350.1.13.10 ity of [facility] 4.2.7.2.686 Marty as [id number] [address] 2021-03-31 2021-04-01 Surgery ADRIÁN Elena 1.2.840.114 [id number] Univers 23:00:00 00:43:00 Julian AVALOS 350.1.13.10 ity of [facility] 4.2.7.2.686 Marty as [id number] [address] 2021-03-27 2021-03-27 Outpatient R BONNIE [facility] [id number] Univers 15:45:00 15:45:00 TAB mckeon [facility] 2021-03-26 2021-03-26 Sexer Ultrasound, [facility] 1.2 .840.114 [id number] Univers 15:04:09 15:34:09 Visit Eric Mock HOUSING DEVELOPMENT SPECIALIST 350.1.13.10 ity of [place] Woo [facility] 4.2.7.2 .686 [place] MATERNAL [id number] [facility] ical & CHILD [address] [place] [address] 2021-03-26 2021-03-26 Sexer Ultrasound, [facility] 1.2 .840.114 [id number] Univers 15:04:09 15:34:09 Visit Eric Mock HOUSING DEVELOPMENT SPECIALIST 350.1.13.10 ity of AmnaMehrancorona Negrete [facility] 4.2.7.2 .686 [place] MATERNAL [id number] [facility] ical & CHILD [address] [place] [address] 2021-03-26 2021-03-26 Outpatient P [facility] [id number] Univers 15:15:00 15:15:00 ERIC anglin [facility] 2021-03-26 2021-03-26 Routine [facility] 1.2.442.129 [id number] Univers 14:15:58 15:03:13 Eric Hammond HOUSING DEVELOPMENT SPECIALIST 350.1.13.10 i ty of Visit [facility] 4.2.7.2.686 Marty as MATERNAL [id number] [facility] & CHILD [address] [place] [address] 2021-03-26 2021-03-26 Routine [facility] 1.2.347.285 [id number] Univers 14:15:58 15:03:13 Eric Hammond HOUSING DEVELOPMENT SPECIALIST 350.1.13.10 i ty of Visit [facility] 4.2.7.2.686 Marty as MATERNAL [phone] [facility] & CHILD [address] [place] [address] 2021-03-21 2021-03-21 [facility] 1.2.840.114 [id number] Univers 00:00:00 00:00:00 Eric Barrett HOUSING DEVELOPMENT SPECIALIST 350.1.13.10 it y of REGION[facility] 4.2.7.2.686 Marty as MATERNAL [id number] [facility] & CHILD [address] [place] [address] 2021-03-20 2021-03-20 [facility] [id number] Univers 12:45:00 12:45:00 ERIC [facility] 2021-03-20 2021-03-20 [facility], [facility] 1.2.840. 114 [id number] [facility] 12:42:40 12:42:47 Visit EmiliEric HOUSING DEVELOPMENT SPECIALIST 350.1.13.10 ity of [facility] 4.2.7.2.686 Marty as MATERNAL [id number] [facility] & CHILD [address] [place] [address] 2021-03-20 2021-03-20 [facility] 1.2.840.114 [id number] Univers 00:00:00 00:00:00 Eric Barrett HOUSING DEVELOPMENT SPECIALIST 350.1.13.10 it y of REGIONAL 4.2.7.2.686 Marty as MATERNAL [id number] [facility] & CHILD [address] [place] [address] 2021-03-19 2021-03-19 [facility] [id number] Univers 14:24:31 15:03:42 Eric N HOUSING DEVELOPMENT SPECIALIST 350.1.13.10 i ty of Visit [facility] 4.2.7.2.686 Marty as MATERNAL [id number] [facility] & CHILD [address] [place] [address] 2021-03-19 2021-03-19 [facility] [id number] Univers 14:15:00 14:15:00 ERIC [facility] 2021-03-12 2021-03-12 Outpatient R [facility] [id number] Univers 09:30:00 09:30:00 [facility] 2021-03-05 2021-03-05 [facility] 1.2.597.120 [id number] Univers 10:48:25 11:35:50 Eric N HOUSING DEVELOPMENT SPECIALIST 350.1.13.10 i ty of Visit [facility] 4.2.7.2.686 Marty as MATERNAL [phone] [facility] ical & CHILD [address] [facility] 2021-03-05 2021-03-05 Outpatient Ruben MOCK [facility] [id number] Univers 11:00:00 11:00:00 ERIC corona [facility] 2021-02-27 2021-02-27 [facility] 1.2 .840.114 [id number] [facility] 15:40:08 15:58:05 Visit Kathryn Fry HOUSING DEVELOPMENT SPECIALIST 350.1.13.10 ity of [facility] 4.2.7.2.686 [place] as MATERNAL [id number] [facility] ical & CHILD [address] [place] [address] 2021-02-27 2021-02-27 Sexer Ultrasound, Margie [facility] 1.2 .840.114 [id number] Univers 14:55:25 15:25:25 Visit Eric Mock HOUSING DEVELOPMENT SPECIALIST 350.1.13.10 ity of [facility] 4.2.7.2.686 [place] as MATERNAL [phone] [facility] ical & CHILD [address] [facility] 2021-02-27 2021-02-27 Outpatient P [facility] [id number] Univers 15:00[facility]00 [facility]-02-26 2021-02-26 [facility] [id number] Univers 10:45:00 10:45:00 ERIC anglin [facility] 2021-02-22 2021-02-22 Outpatient SEVERO ESCOBAR [facility] [id number] Univers 10:45:00 10:45:00 SEVERO MCCLELLAN [facility] 2021-02-22 2021-02-22 Telemedici Fellow, [facility] U N[facility]ERSIT 1.2.840.114 [id number] Univers 08:26:49 08:41:49 ne Visit Severo Mcclellan [facility] 350.1.13.10 ity of [facility] 4.2.7.2.[place] [id number] [address] 2021-02-19 2021-02-19 Routine Emili [facility] 1.2.637.776 [id number] Univers 13:04:02 13:55:40 Eric N HOUSING DEVELOPMENT SPECIALIST 350.1.13.10 i ty of Visit REGIONAL 4.2.7.2.686 [place] as MATERNAL [id number] Med ical & CHILD [address] [place] [address] 2021-02-19 2021-02-19 Outpatient R [facility] [id number] Univers 13:00:00 13:00:00 ity [facility] 2021-02-19 2021-02-19 [facility] [id number] Univers 13:00:00 13:00:00 [facility] 2021-02-19 2021-02-19 [facility] 1.2.840.114 [id number] Univers 00:00:00 00:00:00 Eric Hammond HOUSING DEVELOPMENT SPECIALIST 350.1.13.10 it y of [facility] 4.2.7.2.686 [place] as MATERNAL [id number] [facility] & CHILD [address] [place] [address] 2021-02-18 2021-02-18 Outpatient R [facility] [id number] Univers 10:00:00 10:00:00 ity [facility] 2021-02-18 2021-02-18 Telephone Hortencia [facility] 1.2.840.114 [id number] Univers 00:00:00 00:00:00 Ang Rmchp HOUSING DEVELOPMENT SPECIALIST 350.1.13.10 ity of [facility] 4.2.7.2.686 Marty as MATERNAL [id number] [facility] [address] [place] [address] 2021-02-15 2021-02-15 Telemedici Makayla Lechuga [facility] 1.2.8 40.114 [id number] Univers 12:53:36 12:53:48 ne Visit Maico Saini HOUSING DEVELOPMENT SPECIALIST 350.1.13.10 ity of [facility] 4.2.7.2.686 [place] as MATERNAL [phone] Med ical & CHILD [address] [place] [address] 2021-02-15 2021-02-15 Outpatient P [facility] [id number] Univers 09:45:00 09:45:00 ity [facility] 2021-02-12 2021-02-12 [facility]ine [facility] 1.2.505.457 [id number] Univers 13:33:25 14:47:59 Eric N HOUSING DEVELOPMENT SPECIALIST 350.1.13.10 i ty of Visit [facility] 4.2.7.2.686 [place] as MATERNAL [id number] [facility] & [address] 2021-02-12 2021-02-12 Outpatient R [facility] [id number] Univers 14:00:00 14:00:00 ERIC ity [facility] 2021-02-08 2021-02-08 Telephone [facility] 1.2.840.114 [id number] Univers 00:00:00 00:00:00 Eric Hammond HOUSING DEVELOPMENT SPECIALIST 350.1.13.10 it y of [facility] 4.2.7.2.686 [place] as MATERNAL [id number] [address] 2021-02-08 2021-02-08 Nurse ADRIÁN Seaman 1.2.840.114 [id number] Univers 00:00:00 00:00:00 Triage Aneperico AVALOS 350.1.13.10 ity [place] [address]..2.686 Marty as [id number] [address] 2021-02-05 2021-02-05 Outpatient R [facility] [id number] Univers 12:45:00 12:45:00 ity [facility] 2021-02-01 2021-02-01 Abstract Bonnie [facility] 1.2.840.114 [id number] Univers 00:00:00 00:00:00 Tab Guerrero HOUSING DEVELOPMENT SPECIALIST 350.1.13.10 ity of [facility] 42.7.2.686 [place] as MATERNAL [id number] [facility] & [address] 2021-01-31 2021-01-31 Sexer 1, [facility] UNIVERS[facility] 1 .2.840.114 [id number] Univers 15:10:46 16:18:12 Visit Johnna Chowdhury [facility] 350.1 .13.10 ity of [facility] 4.2.7.2.[place] [id number] [facility] [address] 2021-01-31 2021-01-31 Outpatient P [facility] [id number] Univers 15:30:00 15:30:00 ity of [facility] 2021-01-29 2021-01-29 Emergency Jamila Zaldivar [facility] 1.2.840.114 [id number] Univers 22:06:00 23:25:00 [place] 350.1.13.10 i ty of [place]7.[place] [id number] [facility] [address] [place] 2021-01-29 2021-01-29 Routine Emili [facility] 1.2.254.680 [id number] Univers 13:29:22 14:23:00 Eric Hammond HOUSING DEVELOPMENT SPECIALIST 350.1.13.10 i ty of Visit REGIONAL 4.2.7.2.686 [place] as MATERNAL [id number] Med ical & CHILD [address] [place] [address] 2021-01-29 2021-01-29 Outpatient R EMILI [facility] [id number] Univers 13:45:00 13:45:00 ERIC anglin of [facility] 2021-01-29 2021-01-29 Telephone Emili [facility] 1.2.840.114 [id number] Univers 00:00:00 00:00:00 Eric Hammond HOUSING DEVELOPMENT SPECIALIST 350.1.13.10 it y of [facility] 4.2.7.2.686 Marty as MATERNAL [id number] [facility] ical & CHILD [address] [place] [address] 2021-01-29 2021-01-29 Nurse ADRIÁN Quezada 1.2.840.114 [id number] Univers 00:00:00 00:00:00 Triage Ellie Zhao BAILEY 350.1.13.10 ity of [facility] 4.2.7.2.686 [place] as [id number] [facility] [address] [place] 2021-01-29 2021-01-29 Orders Doctor SAMPSON 1.2.840.114 [id number] Univers 00:00:00 00:00:00 Only Unassigned, BAILEY 350.1.13.10 ity of [place] [facility] 4.2.7.2.686 Marty as [id number] [address] 2021-01-21 2021-01-21 Outpatient R [facility] [id number] Univers 11:00:00 11:00:00 ity [facility] 2021-01-21 2021-01-21 Telemedici Faculty, [facility] 1.2.840.114 [id number] Univers 09:02:46 09:17:46 ne Visit Julian Elena HOUSING DEVELOPMENT SPECIALIST 350.1.13. 10 ity of [address]686 [place] as MATERNAL [id number] Med ical & CHILD [address] [place] [address] 2021-01-18 2021-01-18 Telephone Emili [facility] 1.2.840.114 [id number] Univers 00:00:00 00:00:00 Eric Hammond HOUSING DEVELOPMENT SPECIALIST 350.1.13.10 it y of [place] [address].7.2.686 Marty as MATERNAL [id number] Med ical & CHILD [address] [place] [address] 2021-01-15 2021-01-15 [facility] [id number] Univers 10:00:00 10:00:00 [facility] 2021-01-15 2021-01-15 Telephone Emili [facility] 1.2.840.114 [id number] Univers 00:00:00 00:00:00 Eric Hammond HOUSING DEVELOPMENT SPECIALIST 350.1.13.10 it y of [place] [address]..2.686 Marty as MATERNAL [id number] Med ical & CHILD [address] [place] [address] 2021-01-08 2021-01-08 Nurse Visit, Ruperto Nurse [facility] 1.2 .840.114 [id number] Univers 10:03:31 10:18:41 Visit Eric Mock HOUSING DEVELOPMENT SPECIALIST 350.1.13.10 ity of [place] [address]..2.686 Marty as MATERNAL [id number] Med ical & CHILD [address] [place] [address] 2021-01-08 2021-01-08 Outpatient R [facility] [id number] Univers 10:00:00 10:00:00 ity [facility] 2021-01-03 2021-01-03 Sexer Lab, Ang-Rmchp [facility] 1.2.840. 114 [id number] Univers 08:59:03 10:31:23 Visit Eric Mock HOUSING DEVELOPMENT SPECIALIST 350.1.13.10 ity of [facility] 4.2.7.2.686 Marty as MATERNAL [id number] [facility] [address] [place] [address] 2021-01-03 2021-01-03 Outpatient R [facility] [id number] Univers 08:30:00 08:30:00 ity [facility] 2021-01-02 2021-01-02 Outpatient R [facility] [id number] Univers 10:30:00 10:30:00 [facility] 2021-01-01 2021-01-01 [facility] [id number] Univers 12:45:00 12:45:00 ERIC anglin [facility] 2021-01-01 2021-01-01 Routine Emili [facility] 1.2.814.089 [id number] Univers 08:34:05 09:19:16 Eric Hammond HOUSING DEVELOPMENT SPECIALIST 350.1.13.10 i ty of Visit REGIONAL 4.2.7.2.686 [place] as MATERNAL [id number] [address] 2021-01-01 2021-01-01 Outpatient R EMILI [facility] [id number] Univers 08:45:00 08:45:00 ERIC anglin [facility] 2020-12-26 2020-12-26 Nurse Visit, Ang-Rmchp Nurse [facility] 1.2 .840.114 [id number] Univers 09:32:52 10:04:57 Visit Eric Mock HOUSING DEVELOPMENT SPECIALIST 350.1.13.10 ity of [facility] 4.2.7.2.686 [place] as MATERNAL [id number] [facility] & [address] 2020-12-26 2020-12-26 Outpatient R [facility] [id number] Univers 09:30:00 09:30:00 ity [facility] 2020-12-24 2020-12-24 Outpatient R [facility] [id number] Univers 15:00:00 15:00:00 ity of [facility] 2020-12-24 2020-12-24 Telemedici Faculty, [facility] 1.2.840.114 [id number] Univers 08:59:50 09:14:50 ne Visit Kandi Reid HOUSING DEVELOPMENT SPECIALIST 350.1.13.10 ity of [facility] 4.2.7.2.686 Marty as MATERNAL [id number] [facility] & CHILD [address] [place] [address] 2020-12-21 2020-12-21 Outpatient P MAICO SAINI [facility] [id number] Univers 11:15:00 11:15:00 ity [facility] 2020-12-21 2020-12-21 Telephone Emili [facility] 1.2.840.114 [id number] Univers 00:00:00 00:00:00 Eric Hammond HOUSING DEVELOPMENT SPECIALIST 350.1.13.10 it y of [facility] 4.2.7.2.686 Marty as MATERNAL [id number] [address] 2020-12-19 2020-12-19 Nurse Visit, Ruperto Nurse [facility] 1.2 .840.114 [id number] Univers 09:52:56 10:23:27 Visit Eric Mock HOUSING DEVELOPMENT SPECIALIST 350.1.13.10 ity of [facility] 4.2.7.2.686 Marty as MATERNAL [id number] [facility] & CHILD [address] [place] [address] 2020-12-19 2020-12-19 Outpatient R [facility] [id number] Univers 09:30:00 09:30:00 ity of [facility] 2020-12-18 2020-12-18 Orders Doctor SAMPSON 1.2.840.114 [id number] Univers 00:00:00 00:00:00 Only Unassigned, BAILEY 350.1.13.10 ity of [place] [facility] 4.2.7.2.686 Marty as [id number] [address] 2020-12-15 2020-12-15 Nurse ADRIÁN Quezada 1.2.840.114 [id number] Univers 00:00:00 00:00:00 Triage Ellie AVALOS 350.1.13.10 ity [facility] 4.2.7.2.686 Marty as [id number] [address] 2020-12-12 2020-12-12 Nurse Visit, InocencioRmchp Nurse [facility] 1.2 .840.114 [id number] Univers 10:18:52 10:44:10 Visit Eric Mock HOUSING DEVELOPMENT SPECIALIST 350.1.13.10 ity of [facility] 4.2.7.2.686 Marty as MATERNAL [id number] [facility] ical & CHILD [address] [place] [address] 2020-12-12 2020-12-12 Outpatient R [facility] [id number] Univers 10:00:00 10:00:00 ity [facility] 2020-12-12 2020-12-12 Sexer [facility] 1.2 .840.114 [id number] Univers 09:28:22 09:58:22 Visit Kathryn Fry HOUSING DEVELOPMENT SPECIALIST 350.1.13.10 ity [facility] 4.2.7.2.686 [place] Tammy Ortiz MATERNAL [phone] Medical & CHILD [address] [place] [address] 2020-12-10 2020-12-10 Outpatient R CANDICE [facility] [id number] Univers 08:30:00 08:30:00 [facility] 2020-12-05 2020-12-05 Routine Emili [facility] 1.2.451.955 [id number] Univers 08:24:48 09:04:09 Eric Hammond HOUSING DEVELOPMENT SPECIALIST 350.1.13.10 i ty of Visit [facility] 4.2.7.2.686 Marty as MATERNAL [id number] [facility] & CHILD [address] [place] [address] 2020-12-05 2020-12-05 Outpatient R EMILI [facility] [id number] Univers 08:30:00 08:30:00 [facility] 2020-12-05 2020-12-05 Sexer Ultrasound, [facility] 1.2 .840.114 [id number] Univers 07:59:46 08:24:35 Visit Kathryn Fry HOUSING DEVELOPMENT SPECIALIST 350.1.13.10 ity of [place] [facility] 4.2.7.2.686 [place] Severo Mcclellan MATERNAL [id number] Medical & CHILD [address] [place] [address] 2020-12-03 2020-12-03 Telephone Emili [facility] 1.2.840.114 [id number] Univers 00:00:00 00:00:00 Eric Hammond HOUSING DEVELOPMENT SPECIALIST 350.1.13.10 it y of [facility] 4.2.7.2.686 Marty as MATERNAL [id number] Med ical & CHILD [address] [place] [address] 2020-11-29 2020-11-29 Outpatient R EMILI [facility] [id number] Univers 08:45:00 08:45:00 ERIC anglin [facility] 2020-11-28 2020-11-28 [facility] 1.2 .840.114 [id number] Univers 09:01:14 09:28:22 Visit Eric Mock HOUSING DEVELOPMENT SPECIALIST 350.1.13.10 ity of [facility] 4.2.7.2.686 Marty as MATERNAL [id number] [address] 2020-11-28 2020-11-28 Outpatient Ruben MOCK [facility] [id number] Univers 08:30:00 08:30:00 ERIC anglin [facility] 2020-11-22 2020-11-22 Sexer Ultrasound, [facility] 1.2 .840.114 [id number] Univers 08:53:19 10:08:19 Visit Emmanuel Lepe HOUSING DEVELOPMENT SPECIALIST 350.1.13.10 ity of [facility] 4.2.7.2.686 Marty as MATERNAL [id number] [facility] & CHILD [address] [place] [address] 2020-11-22 2020-11-22 Outpatient P [facility] [id number] Univers 08:45:00 08:45:00 ity [facility] 2020-11-21 2020-11-21 Nurse [facility], [facility] 1.2 .840.114 [id number] Univers 08:53:59 09:10:18 Visit Eric Mock HOUSING DEVELOPMENT SPECIALIST 350.1.13.10 ity of [facility] 4.2.7.2.686 Marty as MATERNAL [id number] [facility] [address] [place] [address] 2020-11-21 2020-11-21 Outpatient R EMILI [facility] [id number] Univers 08:30:00 08:30:00 ERIC ity [facility] 2020-11-14 2020-11-14 Sexer Ultrasound, [facility] 1.2 .840.114 [id number] Univers 08:56:46 09:26:46 Visit Kathryn Fry HOUSING DEVELOPMENT SPECIALIST 350.1.13.10 ity of [place] [facility] 4.2.7.2.686 [place] MATERNAL [id number] [facility] & CHILD [address] [place] [address] 2020-11-14 2020-11-14 Routine Ang [facility] 1.2.840.114 [id number] Univers 08:23:13 08:38:13 Kathryn Miranda HOUSING DEVELOPMENT SPECIALIST 350.1.13.10 ity of Visit [facility] 4.2.7.2.686 Marty as MATERNAL [id number] [address] 2020-11-14 2020-11-14 Outpatient R [facility] [id number] Univers 08:30:00 08:30:00 ity of [facility] 2020-11-13 2020-11-13 Outpatient R [facility] [id number] Univers 17:20:00 17:20:00 ity of [facility] 2020-11-13 2020-11-13 Telephone [facility] 1.2.840.114 [id number] Univers 00:00:00 00:00:00 Eric Hammond HOUSING DEVELOPMENT SPECIALIST 350.1.13.10 it y of [facility] 4.2.7.2.686 Marty as MATERNAL [id number] [facility] & CHILD [address] [place] [address] 2020-11-07 2020-11-07 Routine [facility] 1.2.687.037 [id number] Univers 10:03:48 10:53:52 Eric N HOUSING DEVELOPMENT SPECIALIST 350.1.13.10 i ty of Visit [facility] 4.2.7.2.686 Marty as MATERNAL [id number] [facility] [address] [place] [address] 2020-11-07 2020-11-07 Routine [facility] 1.2.655.219 [id number] 10:03:48 10:53:52 Eric N HOUSING DEVELOPMENT SPECIALIST 350.1.13.10 Visit REGIONAL 4.2.7.2.686 MATERNAL [id number] & CHILD [address] [place] [address] 2020-11-07 2020-11-07 [facility] [id number] Univers 09:15:00 09:15:00 ERIC anglin [facility] 2020-11-06 2020-11-06 Outpatient [facility] [id number] Univers 14:15:00 14:15:00 ERIC anglin [facility] 2020-11-05 2020-11-05 Telephone [facility] 1.2.840.114 [id number] Univers 00:00:00 00:00:00 Eric N HOUSING DEVELOPMENT SPECIALIST 350.1.13.10 it y of [facility] 4.2.7.2.686 [place] as MATERNAL [id number] [facility] & CHILD [address] [place] [address] 2020-10-31 2020-10-31 Telephone [facility] 1.2.840.114 [id number] Univers 00:00:00 00:00:00 Eric N HOUSING DEVELOPMENT SPECIALIST 350.1.13.10 it y of [facility] 4.2.7.2.686 [place] as MATERNAL [id number] Med ical & CHILD [address] [place] [address] 2020-10-31 2020-10-31 Telephone [facility] 1.2.840.114 [id number] Univers 00:00:00 00:00:00 Eric N HOUSING DEVELOPMENT SPECIALIST 350.1.13.10 it y of [facility] 4.2.7.2.686 Marty as MATERNAL [id number] [facility] [address] [place] [address] 2020-10-30 2020-10-30 Telephone [facility] 1.2.840.114 [id number] Univers 00:00:00 00:00:00 Eric N HOUSING DEVELOPMENT SPECIALIST 350.1.13.10 it y of [facility] 4.2.7.2.686 Marty as MATERNAL [id number] [facility] & CHILD [address] [place] [address] 2020-10-29 2020-10-29 Emergency Cynthia [facility] 1.2.846.441 [id number] Univers 15:24:00 18:12:00 Maldonado Jacobo Marshall 350.1.13.10 ity of [place] 4.2.7.2.686 [place] [facility] [id number] [facility] [address] [place] 2020-10-29 2020-10-29 Outpatient R [facility] [id number] Univers 09:30:00 09:30:00 ity of [facility] 2020-10-29 2020-10-29 Telemedici Faculty, Poncho [facility] 1.2.840.114 [id number] Univers 08:09:37 08:24:37 ne Visit Brandon Whitten HOUSING DEVELOPMENT SPECIALIST 350.1.13.10 ity of [facility] 4.2.7.2.686 Marty as MATERNAL [id number] [facility] & CHILD [address] [place] [address] 2020-10-29 2020-10-29 Telephone [facility] 1.2.840.114 [id number] Univers 00:00:00 00:00:00 Eric Hammond HOUSING DEVELOPMENT SPECIALIST 350.1.13.10 it y of [facility] 4.2.7.2.686 Marty as MATERNAL [id number] [facility] & CHILD [address] [place] [address] 2020-10-29 2020-10-29 Orders Doctor ADRIÁN 1.2.840.114 [id number] Univers 00:00:00 00:00:00 Only Unassigned, BAILEY 350.1.13.10 ity of [place] [facility] 4.2.7.2.686 Marty as [id number] [facility] [address] [place] 2020-10-28 2020-10-28 [facility]phone [facility] 1.2.687.974 [id number] Univers 00:00:00 00:00:00 Rhonda Howe HOUSING DEVELOPMENT SPECIALIST 350.1.13.10 ity of [facility] 4.2.7.2.686 [place] as MATERNAL [id number] Med ical & CHILD 107 [facility] 2020-10-26 2020-10-26 Telephone [facility] 1.2.840.114 [id number] Univers 00:00:00 00:00:00 rEic Hammond HOUSING DEVELOPMENT SPECIALIST 350.1.13.10 it y of [facility] 4.2.7.2.686 [place] as MATERNAL [id number] Med ical & CHILD 107 [facility] 2020-10-24 2020-10-24 Telephone [facility] 1.2.840.114 [id number] Univers 00:00:00 00:00:00 Eric Hammond HOUSING DEVELOPMENT SPECIALIST 350.1.13.10 it y of [facility] 4.2.7.2.686 [place] as MATERNAL [id number] Med ical & CHILD [address] [place] [address] 2020-10-22 2020-10-22 Telephone Ana [facility] 1.2.152.727 [id number] Univers 00:00:00 00:00:00 Rhonda Howe HOUSING DEVELOPMENT SPECIALIST 350.1.13.10 ity of [facility] 4.2.7.2.686 [place] as MATERNAL [id number] Med ical & CHILD [address] [place] [address] 2020-10-04 2020-10-04 Routine Risk, Cac-Kvyua-Rl/High [facility] 1. 2.840.114 [id number] Univers 14:35:18 15:12:11 Rhonda Perez HOUSING DEVELOPMENT SPECIALIST 350.1.13.10 ity of Visit [facility] 4.2.7.2.686 [place] as MATERNAL [id number] Med ical & CHILD 107 [facility] 2020-10-04 2020-10-04 Outpatient R [facility] [id number] Univers 14:30:00 14:30:00 ity of [facility] 2020-10-04 2020-10-04 Telephone [facility] 1.2.840.114 [id number] Univers 00:00:00 00:00:00 Eric Hammond HOUSING DEVELOPMENT SPECIALIST 350.1.13.10 it y of [facility] 4.2.7.2.686 [place] as MATERNAL [id number] Med ical & CHILD [address] [place] [address] 2020-10-03 2020-10-03 Telephone Emili ARANTONELLA 1.2.840.114 [id number] Univers 00:00:00 00:00:00 Eric Hammond HOUSING DEVELOPMENT SPECIALIST 350.1.13.10 it y of [facility] 4.2.7.2.686 Marty as MATERNAL [id number] [facility] [address] [place] [address] 2020-10-01 2020-10-01 Telephone [facility] 1.2.840.114 [id number] Univers 00:00:00 00:00:00 Eric Hammond HOUSING DEVELOPMENT SPECIALIST 350.1.13.10 it y of [facility] 4.2.7.2.686 [place] as MATERNAL [id number] [facility] & CHILD [address] [place] [address] 2020-09-25 2020-09-25 Orders Doctor ADRIÁN 1.2.840.114 [id number] Univers 00:00:00 00:00:00 Only Unassigned, BAILEY 350.1.13.10 ity of [place] [facility] 4.2.7.2.686 Marty as [id number] [address] 2020-09-13 2020-09-13 Routine Risk, Nlv-Hhxhe-Et/High [facility] 1. 2.840.114 [id number] Univers 15:33:54 16:21:30 Onelia Price HOUSING DEVELOPMENT SPECIALIST 350.1.13.10 ity of Visit REGIONAL 4.2.7.2.686 [place] as MATERNAL [id number] [facility] & CHILD [address] [place] [address] 2020-09-13 2020-09-13 Outpatient R [facility] [id number] Univers 15:30:00 15:30:00 ity of [facility] 2020-09-06 2020-09-06 Outpatient R [facility] [id number] Univers 15:00:00 15:00:00 ity [facility] 2020-09-03 2020-09-03 [id number] Univers 00:00:00 00:00:00 Eric Hammond HOUSING DEVELOPMENT SPECIALIST [id number] it y of REGIONAL [id number] Marty as MATERNAL [phone] Med ical & CHILD 107 [facility] [place] 2020-08-31 2020-08-31 Sexer Ultrasound, Margie ARANTONELLA 1.2 .840.114 [id number] Univers 15:11:17 15:41:17 Visit Johnna Chowdhury HOUSING DEVELOPMENT SPECIALIST 350.1. 13.10 ity of REGIONAL [id number] Marty as MATERNAL [phone] Med ical & CHILD 369 [facility] [place] 2020-08-31 2020-08-31 Outpatient P [facility] [id number] Univers 15:00:00 15:00:00 ity of [facility] 2020-08-31 2020-08-31 Abstract Emili ARANTONELLA [id number] Univers 00:00:00 00:00:00 Eric N HOUSING DEVELOPMENT SPECIALIST [id number] it y of REGIONAL [id number] Marty as MATERNAL [phone] Med ical & CHILD [address] [place] [address] 2020-08-31 2020-08-31 Telephone Emili ARANTONELLA [id number] [id number] Univers 00:00:00 00:00:00 Eric Hammond HOUSING DEVELOPMENT SPECIALIST [id number] it y of REGIONAL [id number] Marty as MATERNAL [phone] Med ical & CHILD [address] [place] [address] 2020-08-29 2020-08-29 Telephone Emili ARANTONELLA 1.2.840.114 [id number] Univers 00:00:00 00:00:00 Eric Hammond HOUSING DEVELOPMENT SPECIALIST 350.1.13.10 it y of REGIONAL 4.2.7.2.686 Marty as MATERNAL [id number] Med ical & CHILD [address] [place] [address] 2020-08-27 2020-08-27 Telephone Emili ARANTONELLA 1.2.840.114 [id number] Univers 00:00:00 00:00:00 Eric Hammond HOUSING DEVELOPMENT SPECIALIST 350.1.13.10 it y of REGIONAL 4.2.7.2.686 Marty as MATERNAL [id number] Med ical & CHILD [address] [place] [address] 2020-08-22 2020-08-22 [facility] 1.2.840.114 [id number] Univers 00:00:00 00:00:00 Eric Hammond HOUSING DEVELOPMENT SPECIALIST 350.1.13.10 it y of REGIONAL 4.2.7.2.686 Marty as MATERNAL [id number] [facility] & CHILD [address] [place] [address] 2020-08-21 2020-08-21 Initial [facility] [id number] Univers 14:51:44 16:19:05 Eric Hammond HOUSING DEVELOPMENT SPECIALIST 350.1.13.10 i ty of Visit REGIONAL 4.2.7.2.686 Marty as MATERNAL [id number] [facility] & [address] 2020-08-21 2020-08-21 [facility] [id number] Univers 14:00:00 14:00:00 ERIC anglin of [facility] 2020-08-21 2020-08-21 Orders Doctor ADRIÁN 1.2.840.114 [id number] Univers 00:00:00 00:00:00 Only Unassigned, BAILEY 350.1.13.10 ity of [place] [facility] 4.2.7.2.686 Marty as [id number] [address] 2020-08-14 2020-08-14 Outpatient R [facility] [id number] Univers 09:15:00 09:15:00 ity of [facility] 2019-10-28 2019-10-28 Outpatient Raju_P [facility] G [id number] [place] 02:06:00 02:06:00 [facility] 2019-03-02 2019-03-02 Orders Doctor ADRIÁN 1.2.840.114 [id number] Univers 00:00:00 00:00:00 Only Unassigned, BAILEY 350.1.13.10 ity of [place] [facility] 4.2.7.2.686 Marty as [id number] [address] Results Test Description Test Time Test Comments Results Result Comments Source POCT TEST 2023-01-02 20:03:00 Test Item Value Reference Range Interpretation Comme nts POCT PREG (test code = 1605) Negative On board controls acceptable with C Line (test code = 3574) Yes POCT PREG LOT # (test code = 3575) [id number] POCT PREG TEST DATE (test code = 3576) 12/01/2023 [facility] [id number] 20:03:00 Test Item Value Reference Range Interpretation Comments POCT PREG (test code = 1605) Negative On board controls acceptable with Yes C Line (test code = 3574) POCT PREG LOT # (test code = 3575) [id number] POCT PREG TEST DATE (test 12/01/2023 code = 3576) [facility] SARS-COV-2 ANTIGEN (BINAX NOW)2023-01-02 19:45:00 Test Item Value Reference Range Interpretation Comments POCT SARS-COV-2 ANTIGEN (test Not Detected Not Detected code = 88041-9) On board controls acceptable Yes with C Line (test code = 3574) [facility] SARS-COV-2 ANTIGEN (BINAX NOW)2023-01-02 19:45:00 Test Item Value Reference Range Interpretation Comments POCT SARS-COV-2 ANTIGEN (test Not Detected Not Detected code = 62396-2) On board controls acceptable Yes with C Line (test code = 3574) [facility] MOLECULAR [id number] 19:39:18 Test Item Value Reference Range Interpretation Comments POCT Molecular Strep (test code = Negative Negative 86924-1) Lab Interpretation (test code = Normal 77119-5) [facility] MOLECULAR [id number] 19:39:18 Test Item Value Reference Range Interpretation Comments POCT Molecular Strep (test code = Negative Negative 35577-1) Lab Interpretation (test code = Normal 74933-9) [facility] [id number] 16:52:00 Test Item Value Reference Range Interpretation Comments POCT PREG (test code = 1605) Negative On board controls acceptable with C Yes Line (test code = 3574) POCT PREG LOT # (test code = 3575) POCT PREG TEST DATE (test code = 3576) [facility] [id number] 16:52:00 Test Item Value Reference Range Interpretation Comments POCT PREG (test code = 1605) Negative On board controls acceptable with C Yes Line (test code = 3574) POCT PREG LOT # (test code = 3575) POCT PREG TEST DATE (test code = 3576) [facility] 20:08:24 Test Item Value Reference Range Interpretation Comments MAGNESIUM (test code = 3101859133) 1.9 mg/dL 1.7-2.4 Lab Interpretation (test code = Normal 72256-2) [facility]. METABOLIC PANEL (55034)2022-10-06 20:08:04 Test Item Value Reference Range Interpretation Comments NA (test code = 137 mmol/L 135-145 1646118688) K (test code = 4.3 mmol/L 3.5-5.0 4309505352) CL (test code = 105 mmol/L 98-108 8460630880) CO2 TOTAL (test code = 22 mmol/L 23-31 L 1220287701) AGAP (test code = 10 2-16 8175317521) BUN (test code = 16 mg/dL 7-23 9906067612) GLUCOSE (test code = 82 mg/dL 70-110 5091724589) CREATININE (test code = 0.62 mg/dL 0.50-1.04 7466683547) TOTAL BILI (test code = 1.3 mg/dL 0.1-1.1 H 9099675729) CALCIUM (test code = 8.7 mg/dL 8.6-10.6 2596092058) T PROTEIN (test code = 7.8 g/dL 6.3-8.2 1206454803) ALBUMIN (test code = 4.4 g/dL 3.5-5.0 6172696325) ALK PHOS (test code = 123 U/L 34-122 H 7280738948) ALTv (test code = 28 U/L 5-35 1742-6) AST(SGOT) (test code = 24 U/L 13-40 9634675828) eGFR (test code = 115.5 mL/min/1.73m2 8732394415) NORM (test code = NORM) Association of [...] tests). Lab Interpretation Abnormal (test code = 49649-2) [facility] 20:08:03 Test Item Value Reference Range Interpretation Comments LIPASE (test code = 2776319459) 61 U/L 0-220 Lab Interpretation (test code = Normal 86955-4) [facility] WITH [id number] 20:04:23 Test Item Value Reference Range Interpretation Comments WBC (test code = 12.32 See_Comment H [Automated 9390-2) message] The sy stem which generated this result transmitted reference range : 4.30 - 11.10 10*3/?L. The reference range was not used to interpret this result as normal/abnormal . RBC (test code = 5.83 See_Comment H [Automated 049-8) message] The sy stem which generated this [...] (test code = 51.2 fL 39.0-49.9 H 84842-9) RDW-CV (test code = 22.5 % 12.0-15.5 H 788-0) PLT (test code = 333 See_Comment [Automated 777-3) message] The sy stem which generated this result transmitted reference range : 166 - 358 10*3/ ?L. The reference r eliezer was not used to interpret this result as normal/abnormal . MPV (test code = 10.9 fL 9.5-12.9 42151-0) IPF % (test code = 5.2 % 1.3-7.7 Platelet count 3038813941) measured by fluorescence method. NRBC/100 WBC (test 0.0 See_Comment [Automat ed code = 0481555571) message] The system which generated this result transmitted reference range : 0.0 - 10.0 /100 WBCs. The refer ence range was not u sed to interpret th is result as normal/abnormal . NRBC x10^3 (test code See_Comment [Auto mated = 2013493370) message] The s ystem which generated this result transmitted reference range : 10*3/?L. The reference range was not used to interpret this result as normal/abnormal . GRAN MAT (NEUT) % 76.9 % (test code = 770-8) IMM GRAN % (test code 0.30 % = 4893048357) LYMPH % (test code = 15.4 % 736-9) MONO % (test code = 4.5 % 5905-5) EOS % (test code = 2.3 % 713-8) BASO % (test code = 0.6 % 706-2) GRAN MAT x10^3(ANC) 9.46 10*3/uL 1.88-7.09 H (test code = 2865321368) IMM GRAN x10^3 (test 0.04 10*3/uL 0.00-0.06 code = 4899217514) LYMPH x10^3 (test code 1.90 10*3/uL 1.32-3.29 = 731-0) MONO x10^3 (test code 0.56 10*3/uL 0.33-0.92 = 742-7) EOS x10^3 (test code = 0.28 10*3/uL 0.03-0.39 711-2) BASO x10^3 (test code 0.08 10*3/uL 0.01-0.07 H = 704-7) Lab Interpretation Abnormal (test code = 24226-5) [facility] (D) IMMUNE [id number] 16:36:07 Test Item Value Reference Range Interpretation Comments RHIG CANDIDATE? No- see comment Patient i s not a (test code = candidate for R hIg- 5055) Patient is Rh Positive.Perfor med at [facility] Laboratory [facility] Blood [address] [place], [place] [address]Toll Free: [phone] A No. [id number] [facility] (D) IMMUNE [id number] 16:36:07 Test Item Value Reference Range Interpretation Comments RHIG CANDIDATE? No- see comment Patient i s not a (test code = candidate for R hIg- 5055) Patient is Rh Positive.Perfor med at [facility] Laboratory Services [facility] Blood [address] [place], [place] [address]Toll Free: [phone] A No. [id number] [facility] with [id number] 13:09:16 Test Item Value Reference Range Interpretation Comments WBC (test code = 8.41 See_Comment [Automated 2090-2) message] The sy stem which generated this [...] RDW-SD (test code = 40.0 fL 39.0-49.9 39589-5) RDW-CV (test code = 18.6 % 12.0-15.5 H 788-0) PLT (test code = 272 See_Comment [Automated 777-3) message] The sy stem which generated this result transmitted reference range : 166 - 358 10*3/ ?L. The reference r eliezer was not used to interpret this result as normal/abnormal . MPV (test code = 9.8 fL 9.5-12.9 67807-6) NRBC/100 WBC (test 0.0 See_Comment [Automat ed code = 0754718589) message] The system which generated this result transmitted reference range : 0.0 - 10.0 /100 WBCs. The refer ence range was not u sed to interpret th is result as normal/abnormal . NRBC x10^3 (test code See_Comment [Auto mated = 6748232180) message] The s ystem which generated this result transmitted reference range : 10*3/?L. The reference range was not used to interpret this result as normal/abnormal . GRAN MAT (NEUT) % 68.7 % (test code = 770-8) IMM GRAN % (test code 0.60 % = 9222086422) LYMPH % (test code = 24.4 % 736-9) MONO % (test code = 5.4 % 5905-5) EOS % (test code = 0.5 % 713-8) BASO % (test code = 0.4 % 706-2) GRAN MAT x10^3(ANC) 5.79 10*3/uL 1.88-7.09 (test code = 3670468360) IMM GRAN x10^3 (test 0.05 10*3/uL 0.00-0.06 code = 4392345606) LYMPH x10^3 (test code 2.05 10*3/uL 1.32-3.29 = 731-0) MONO x10^3 (test code 0.45 10*3/uL 0.33-0.92 = 742-7) EOS x10^3 (test code = 0.04 10*3/uL 0.03-0.39 711-2) BASO x10^3 (test code 0.03 10*3/uL 0.01-0.07 = 704-7) Lab Interpretation Abnormal (test code = 32683-5) [facility] with [id number] 13:09:16 Test Item Value Reference Range Interpretation Comments WBC (test code = 8.41 See_Comment [Automated 6690-2) message] The sy stem which generated this result transmitted reference range : 4.30 - 11.10 10*3/?L. The reference range was not used to interpret this result as normal/abnormal . RBC (test code = 4.93 See_Comment [Automated 869-8) message] The sy stem which generated this [...] RDW-SD (test code = 40.0 fL 39.0-49.9 51009-9) RDW-CV (test code = 18.6 % 12.0-15.5 H 788-0) PLT (test code = 272 See_Comment [Automated 777-3) message] The sy stem which generated this result transmitted reference range : 166 - 358 10*3/ ?L. The reference r eliezer was not used to interpret this result as normal/abnormal . MPV (test code = 9.8 fL 9.5-12.9 34000-5) NRBC/100 WBC (test 0.0 See_Comment [Automat ed code = 9793231811) message] The system which generated this result transmitted reference range : 0.0 - 10.0 /100 WBCs. The refer ence range was not u sed to interpret th is result as normal/abnormal . NRBC x10^3 (test code See_Comment [Auto mated = 6615920883) message] The s ystem which generated this result transmitted reference range : 10*3/?L. The reference range was not used to interpret this result as normal/abnormal . GRAN MAT (NEUT) % 68.7 % (test code = 770-8) IMM GRAN % (test code 0.60 % = 4526763121) LYMPH % (test code = 24.4 % 736-9) MONO % (test code = 5.4 % 5905-5) EOS % (test code = 0.5 % 713-8) BASO % (test code = 0.4 % 706-2) GRAN MAT x10^3(ANC) 5.79 10*3/uL 1.88-7.09 (test code = 2187960618) IMM GRAN x10^3 (test 0.05 10*3/uL 0.00-0.06 code = 4562287126) LYMPH x10^3 (test code 2.05 10*3/uL 1.32-3.29 = 731-0) MONO x10^3 (test code 0.45 10*3/uL 0.33-0.92 = 742-7) EOS x10^3 (test code = 0.04 10*3/uL 0.03-0.39 711-2) BASO x10^3 (test code 0.03 10*3/uL 0.01-0.07 = 704-7) Lab Interpretation Abnormal (test code = 66973-0) [facility] WORK[facility], BLOOD [id number] 17:00:38 Test Item Value Reference Range Interpretation Comments ABO & RH (test code O Positive Performe d at [facility] = 20) Laboratory [facility] Blood Bank[address] [place] [address] Free: [phone] A No. [id number] IAT (test code = Negative Performed a t [facility] 1185) Laboratory [facility] Blood [address] [place], [place] [address]Toll Free: [phone] A No. [id number] [facility] WITH [id number] 16:26:18 Test Item Value Reference Range Interpretation Comments WBC (test code = 8.45 See_Comment [Automated 8690-2) message] The sy stem which generated this result transmitted reference range : 4.30 - 11.10 10*3/?L. The reference range was not used to interpret this result as normal/abnormal . RBC (test code = 5.01 See_Comment [Automated 469-8) message] The sy stem which generated this [...] RDW-SD (test code = 40.9 fL 39.0-49.9 84102-5) RDW-CV (test code = 18.7 % 12.0-15.5 H 788-0) PLT (test code = 256 See_Comment [Automated 777-3) message] The sy stem which generated this result transmitted reference range : 166 - 358 10*3/ ?L. The reference r eliezer was not used to interpret this result as normal/abnormal . MPV (test code = 9.4 fL 9.5-12.9 L 28247-9) NRBC/100 WBC (test 0.0 See_Comment [Automat ed code = 5862386959) message] The system which generated this result transmitted reference range : 0.0 - 10.0 /100 WBCs. The refer ence range was not u sed to interpret th is result as normal/abnormal . NRBC x10^3 (test code See_Comment [Auto mated = 5682832121) message] The s ystem which generated this result transmitted reference range : 10*3/?L. The reference range was not used to interpret this result as normal/abnormal . GRAN MAT (NEUT) % 75.4 % (test code = 770-8) IMM GRAN % (test code 0.70 % = 8226928231) LYMPH % (test code = 19.2 % 736-9) MONO % (test code = 4.1 % 5905-5) EOS % (test code = 0.4 % 713-8) BASO % (test code = 0.2 % 706-2) GRAN MAT x10^3(ANC) 6.37 10*3/uL 1.88-7.09 (test code = 4911660044) IMM GRAN x10^3 (test 0.06 10*3/uL 0.00-0.06 code = 5080751793) LYMPH x10^3 (test code 1.62 10*3/uL 1.32-3.29 = 731-0) MONO x10^3 (test code 0.35 10*3/uL 0.33-0.92 = 742-7) EOS x10^3 (test code = 0.03 10*3/uL 0.03-0.39 711-2) BASO x10^3 (test code 0.01-0.07 = 704-7) Lab Interpretation Abnormal (test code = 28457-1) [facility] WITH [id number] 16:26:18 Test Item Value Reference Range Interpretation [...] RDW-SD (test code = 40.9 fL 39.0-49.9 76174-8) RDW-CV (test code = 18.7 % 12.0-15.5 H 788-0) PLT (test code = 256 See_Comment [Automated 777-3) message] The sy stem which generated this result transmitted reference range : 166 - 358 10*3/ ?L. The reference r eliezer was not used to interpret this result as normal/abnormal . MPV (test code = 9.4 fL 9.5-12.9 L 19396-1) NRBC/100 WBC (test 0.0 See_Comment [Automat ed code = 9182276673) message] The system which generated this result transmitted reference range : 0.0 - 10.0 /100 WBCs. The refer ence range was not u sed to interpret th is result as normal/abnormal . NRBC x10^3 (test code See_Comment [Auto mated = 7542353775) message] The s ystem which generated this result transmitted reference range : 10*3/?L. The reference range was not used to interpret this result as normal/abnormal . GRAN MAT (NEUT) % 75.4 % (test code = 770-8) IMM GRAN % (test code 0.70 % = 9820269744) LYMPH % (test code = 19.2 % 736-9) MONO % (test code = 4.1 % 5905-5) EOS % (test code = 0.4 % 713-8) BASO % (test code = 0.2 % 706-2) GRAN MAT x10^3(ANC) 6.37 10*3/uL 1.88-7.09 (test code = 7729055404) IMM GRAN x10^3 (test 0.06 10*3/uL 0.00-0.06 code = 5009049316) LYMPH x10^3 (test code 1.62 10*3/uL 1.32-3.29 = 731-0) MONO x10^3 (test code 0.35 10*3/uL 0.33-0.92 = 742-7) EOS x10^3 (test code = 0.03 10*3/uL 0.03-0.39 711-2) BASO x10^3 (test code 0.01-0.07 = 704-7) Lab Interpretation Abnormal (test code = 64228-2) [facility] W/O SPECIFIC [id number] 19:58:00 Test Item Value Reference Range Interpretation [...] code = 3257) n/a Negative - Negative [facility] CenterAD OR [facility] ONLY - [id number] 11:38:01 Test Item Value Reference Range Interpretation Comments RPR (Qualitative) (test code = Nonreactive Nonreactive 30209-3) Lab Interpretation (test code = Normal 02596-7) [facility] CenterHIV 1/2 AG-AB WITH [id number] 08:22:15 Test Item Value Reference Range Interpretation Comments HIV 0.14 Negative Semi-quantitative (test code = 10933-0) NORM (test code = Non-reactive for HIV-1 NORM) antigen and HIV-1/HIV-2 antibodies. ?No laboratory evidence of HIV infection. ?Repeat in 2-4 weeks if acute HIV infection is suspected. [facility] CenterType and Screen - ONCE [id number] 07:35:21 Test Item Value Reference Range Interpretation Comments ABO & RH (test code O Positive Performe d at [facility] = 20) Laboratory Serv [facility] Blood Bank[address] [place], [place] [address]Toll Free: [phone] A No. [id number] IAT (test code = Negative Performed a t [facility] 1185) Laboratory Serv [facility] Blood Bank[address] [place], [place] [address]Toll Free: [phone] A No. [id number] [facility] CenterCBC WITH [id number] 07:08:09 Test Item Value Reference Range Interpretation Comments WBC (test code = 10.11 See_Comment [Automated 1690-2) message] The sy stem which generated this result transmitted reference range : 4.30 - 11.10 10*3/?L. The reference range was not used to interpret this result as normal/abnormal . RBC (test code = 4.81 See_Comment [Automated 439-8) message] The sy stem which generated this [...] RDW-SD (test code = 39.1 fL 39.0-49.9 64574-4) RDW-CV (test code = 17.8 % 12.0-15.5 H 788-0) PLT (test code = 293 See_Comment [Automated 777-3) message] The sy stem which generated this result transmitted reference range : 166 - 358 10*3/ ?L. The reference r eliezer was not used to interpret this result as normal/abnormal . MPV (test code = 10.2 fL 9.5-12.9 23999-5) NRBC/100 WBC (test 0.0 See_Comment [Automat ed code = 5446253446) message] The system which generated this result transmitted reference range : 0.0 - 10.0 /100 WBCs. The refer ence range was not u sed to interpret th is result as normal/abnormal . NRBC x10^3 (test code See_Comment [Auto mated = 8368341405) message] The s ystem which generated this result transmitted reference range : 10*3/?L. The reference range was not used to interpret this result as normal/abnormal . GRAN MAT (NEUT) % 70.4 % (test code = 770-8) IMM GRAN % (test code 0.80 % = 1974118873) LYMPH % (test code = 22.0 % 736-9) MONO % (test code = 5.6 % 5905-5) EOS % (test code = 0.7 % 713-8) BASO % (test code = 0.5 % 706-2) GRAN MAT x10^3(ANC) 7.12 10*3/uL 1.88-7.09 H (test code = 7512139482) IMM GRAN x10^3 (test 0.08 10*3/uL 0.00-0.06 H code = 3837482219) LYMPH x10^3 (test code 2.22 10*3/uL 1.32-3.29 = 731-0) MONO x10^3 (test code 0.57 10*3/uL 0.33-0.92 = 742-7) EOS x10^3 (test code = 0.07 10*3/uL 0.03-0.39 711-2) BASO x10^3 (test code 0.05 10*3/uL 0.01-0.07 = 704-7) Lab Interpretation Abnormal (test code = 37538-2) [facility] URINALYSIS W/O SPECIFIC [id number] 15:51:00 Test Item Value Reference Range Interpretation [...] code = 3257) negative Negative - Negative [facility] URINALYSIS W/O SPECIFIC [id number] 15:47:00 Test Item Value Reference Range Interpretation [...] code = 3257) negative Negative - Negative [facility] URINALYSIS W/O SPECIFIC [id number] 15:04:00 Test Item Value Reference Range Interpretation [...] code = 3257) n/a Negative - Negative [facility] MOLECULAR [id number] 17:47:40 Test Item Value Reference Range Interpretation Comments POCT Molecular FluA (test code = Negative Negative 81959-0) POCT Molecular FluB (test code = Negative Negative 70008-6) Lab Interpretation (test code = Normal 45237-9) [facility] MOLECULAR [id number] 17:40:36 Test Item Value Reference Range Interpretation Comments POCT Molecular Strep (test code = Negative Negative 13569-3) Lab Interpretation (test code = Normal 85269-0) [facility] URINALYSIS W/O SPECIFIC [id number] 14:49:00 Test Item Value Reference Range Interpretation [...] code = 3257) Negative Negative - Negative [facility] URINALYSIS W/O SPECIFIC [id number] 16:35:00 Test Item Value Reference Range Interpretation [...] (test code = 3257) Negative - Negative [facility] URINALYSIS W/O SPECIFIC [id number] 15:41:00 Test Item Value Reference Range Interpretation [...] code = 3257) n/a Negative - Negative [facility] URINALYSIS W/O SPECIFIC [id number] 15:41:00 Test Item Value Reference Range Interpretation [...] code = 3257) n/a Negative - Negative [facility] URINALYSIS W/O SPECIFIC [id number] 21:58:00 Test Item Value Reference Range Interpretation [...] code = 3257) na Negative - Negative [facility] CenterPOCT [facility] W/O SPECIFIC [id number] 21:58:00 Test Item Value Reference Range Interpretation [...] code = 3257) na Negative - Negative [facility] BranchPOCT URINALYSIS W/O SPECIFIC [id number] 21:58:00 Test Item Value Reference Range Interpretation [...] code = 3257) na Negative - Negative [facility] CenterURINALYSIS2022-09-09 22:00:08 Test Item Value Reference Range Interpretation Comments APPEARANCE (test code = Clear Clear 8661862496) COLOR (test code = Yellow Colorless A 1490364816) PH (test code = 4.8-8.0 2207581592) SP GRAVITY (test code = 1.003-1.035 7303062794) GLU U QUAL (test code = Negative Negative 5077432918) BLOOD (test code = Negative Negative 7254736347) KETONES (test code = Negative Negative 3078355291) PROTEIN (test code = Negative Negative 2887-8) UROBILIN (test code = Normal Normal 3499048453) BILIRUBIN (test code = Negative Negative 0983489084) NITRITE (test code = Negative Negative 1837795333) LEUK VALENTINE (test code = Negative Negative 9419751640) RBC/HPF (test code = See_Comment [Autom ated message] 4552121600) The system [employer] generated this result transmitted ref erence range: 0 - 3 HP F. The reference range was not used to int erpret this result as normal/abnormal . WBC/HPF (test code = See_Comment [Autom ated message] 8818549695) The system [employer] generated this result transmitted ref erence range: 0 - 5 HP F. The reference range was not used to int erpret this result as normal/abnormal . BACTERIA (test code = Few Negative A 5406480624) MUCOUS (test code = Slight Negative LPF A 0771855450) SQ EPITH (test code = HPF 0970345488) Lab Interpretation (test Abnormal code = 97483-2) [facility] CenterAD [facility] OR [facility] ONLY - WET [id number] 21:45:14 Test Item Value Reference Range Interpretation Comments CLUE CELLS WET PREP (test code = Moderate None Seen HPF A 5514434120) BACTERIA WET PREP (test code = Few None Seen HPF A 6918511483) WBC WET PREP (test code = Few None Seen HPF A 1605850824) RBC WET PREP (test code = None Seen None Seen HPF 4313232900) TRICHOMONAS WET PREP (test code = None Seen None Seen HPF 6823143032) YEAST WET PREP (test code = Few None Seen HPF A 0603083029) Lab Interpretation (test code = Abnormal 10408-6) [facility] URINALYSIS W/O SPECIFIC [id number] 14:51:00 Test Item Value Reference Range Interpretation [...] code = 3257) n/a Negative - Negative [facility] [id number] 13:51:00 Test Item Value Reference Range Interpretation Comments POCT PREG (test code = 1605) Positive On board controls acceptable with C Yes Line (test code = 3574) POCT PREG LOT # (test code = 3575) POCT PREG TEST DATE (test code = 3576) [facility] URINALYSIS W/O SPECIFIC [id number] 13:51:00 Test Item Value Reference Range Interpretation [...] code = 3257) n/a Negative - Negative [facility] [id number] 13:51:00 Test Item Value Reference Range Interpretation Comments POCT PREG (test code = 1605) Positive On board controls acceptable with C Yes Line (test code = 3574) POCT PREG LOT # (test code = 3575) POCT PREG TEST DATE (test code = 3576) [facility] [id number] 13:51:00 Test Item Value Reference Range Interpretation [...] code = 3257) n/a Negative - Negative [facility]"
[2023-03-30] MEDS ORDERED: ONDANSETRON 4 MG (ODT) TAB ONE (21:35)
--- NOTE | 2023-03-30 22:26 | EDPHYS ---
Physician Documentation [facility] Name: Deborah Torres Age: 27 yrs Sex: Female : 1995 Arrival Date: 03/30/2023 Time: 20:37 Bed IW1 Private MD: ED Physician Shawn Pollard HPI: 03/30 23:27 This 27 yrs old Female presents to ER via Ambulatory with complaints of Fever, Vomiting.kb Historical: - Allergies: 21:15 HYDROCODONE; bp 21:15 PENICILLINS; bp 21:15 promethazine HCl; bp 21:15 Tape; bp - PMHx: 21:15 Anxiety; Asthma; Bipolar disorder; Depression; Hypertension; Migraines; Pre-eclampsia; bp Thyroid problem; - PSHx: 21:15 section; Tonsillectomy; bp - Immunization history:: Adult Immunizations up to date. - Social history:: Smoking status: Patient denies any tobacco usage or history of. ROS: 23:28 Cardiovascular: Negative for chest pain, palpitations, and edema. kb 23:28 Constitutional: Positive for body aches, chills, fatigue, fever, malaise. 23:28 ENT: Positive for rhinorrhea, sinus congestion, sore throat. 23:28 Respiratory: Positive for cough. 23:28 Abdomen/GI: Positive for vomiting. 23:28 All other systems are negative. Exam: 23:28 Constitutional: This is a well developed, well nourished patient who is awake, alert, kb and in no acute distress. Head/Face: Normocephalic, atraumatic. ENT: Moist Mucous membranes Cardiovascular: Regular rate and rhythm with a normal S1 and S2. No gallops, murmurs, or rubs. No pulse deficits. Respiratory: Respirations even and unlabored. No increased work of breathing. Talking in full sentences Abdomen/GI: Soft, non-tender. No distention Skin: Warm, dry with normal turgor. Normal color. MS/ Extremity: Pulses equal, no cyanosis. Neurovascular intact. Full, normal range of motion. Neuro: Awake and alert, GCS 15, oriented to person, place, time, and situation. Moves all extremities. Normal gait. Vital Signs: 21:14 BP 123 / 91; Pulse 97; Resp 20; Temp 97.8; Pulse Ox 100% ; bp 03/31 00:59 Pulse 78; Resp 16; Temp 97(TE); Pulse Ox 99% on R/A; kl MDM: 03/30 21:15 Patient medically screened. kb 23:26 Differential diagnosis: Flu, COVID, URI. Data reviewed: vital signs, nurses notes. kb Counseling: I had a detailed discussion with the patient and/or guardian regarding the historical points, exam findings, and any diagnostic results supporting the discharge/admit diagnosis, lab results, radiology results, the need for outpatient follow up, a family practitioner, to return to the emergency department if symptoms worsen or persist or if there are any questions or concerns that arise at home. ED course: Discussed results of COVID test with patient, educated on symptomatic treatment for COVID. Patient now reports right lower quadrant pain when she vomits. States the pain " nearly brought her to her knees." CT scan ordered.. 03/30 21:15 Order name: Flu; Complete Time: 22:26 kb 03/30 21:15 Order name: COVID-19 SARS RT PCR; Complete Time: 22:26 kb 03/30 21:15 Order name: Strep; Complete Time: 22:26 kb 03/30 22:13 Order name: Throat Culture EDMS 03/30 22:56 Order name: Test, Urine; Complete Time: 23:21 03/30 22:30 Order name: CT Stone Protocol kb Administered Medications: 03/31 00:38 Drug: Ketorolac IM 30 mg Route: IM; Site: right deltoid; kl 00:57 Follow up: Response: No adverse reaction kl 00:38 Drug: Ondansetron PO 4 mg Route: PO; kl 00:57 Follow up: Response: No adverse reaction kl Disposition Summary: 03/30/23 22:26 Discharge Ordered Location: Home kb Condition: Stable kb Diagnosis - SARS-associated coronavirus as the cause of diseases classified elsewhere kb Followup: kb - With: Emergency Department - When: As needed - Reason: Worsening of condition Followup: kb - With: Private Physician - When: 2 - 3 days - Reason: Recheck today's complaints, Continuance of care, Re-evaluation by your physician Discharge Instructions: - Discharge Summary Sheet kb - COVID-19 kb - Viral Illness, Adult kb Forms: - Medication Reconciliation Form kb - Thank You Letter kb - Antibiotic Education kb - Prescription Opioid Use kb - Patient Portal Instructions kb - Leadership Thank You Letter kb Prescriptions: - ondansetron 4 mg Oral Tablet,disintegrating - take 1 tablet by ORAL route every 6 hours As needed; 12 tablet; Refills: 0, kb Product Selection Permitted Signatures: Dispatcher [employer] EDMS Tea Hooper FNP-C FNP-Ckb Lewis, Kimberly, RN RN kl Peltier, Brian, RN RN bp Corrections: (The following items were deleted from the chart) 03/30 23:28 23:26 Differential diagnosis: Flu, COVID, URI nicki caceres
--- NOTE | 2023-03-30 22:26 | ER ---
Nurse's Notes [facility] Name: Deborah Torres Age: 27 yrs Sex: Female : 1995 Arrival Date: 03/30/2023 Time: 20:37 Bed IW1 Private MD: Diagnosis: SARS-associated coronavirus as the cause of diseases classified elsewhere Presentation: 03/30 21:14 Chief complaint: Patient states: N/V, FEVER, COUGH SINCE Y/D. Coronavirus screen: At bp this time, the client does not indicate any symptoms associated with coronavirus-19. Ebola Screen: No symptoms or risks identified at this time. Initial Sepsis Screen: Does the patient meet any 2 criteria? No. Patient's initial sepsis screen is negative. Does the patient have a suspected source of infection? No. Patient's initial sepsis screen is negative. Risk Assessment: Do you want to hurt yourself or someone else? Patient reports no desire to harm self or others. Onset of symptoms is unknown. 21:14 Method Of Arrival: Ambulatory bp 21:14 Acuity: NORM 4 bp Triage Assessment: 21:15 General: Appears uncomfortable, Behavior is cooperative, appropriate for age, anxious. bp Pain: Complains of pain in head. EENT: Reports nasal congestion. Neuro: Reports headache. Cardiovascular: No deficits noted. Respiratory: No deficits noted. GI: Reports nausea. : No signs and/or symptoms were reported regarding the genitourinary system. Derm: No deficits noted. Musculoskeletal: No deficits noted. Historical: - Allergies: 21:15 HYDROCODONE; bp 21:15 PENICILLINS; bp 21:15 promethazine HCl; bp 21:15 Tape; bp - PMHx: 21:15 Anxiety; Asthma; Bipolar disorder; Depression; Hypertension; Migraines; Pre-eclampsia; bp Thyroid problem; - PSHx: 21:15 section; Tonsillectomy; bp - Immunization history:: Adult Immunizations up to date. - Social history:: Smoking status: Patient denies any tobacco usage or history of. Screenin/29 00:58 [facility] ED Fall Risk Assessment (Adult) History of falling in the last 3 months, kl including since admission No falls in past 3 months (0 pts) Confusion or Disorientation No (0 pts) Intoxicated or Sedated No (0 pts) Impaired Gait No (0 pts) Mobility Assist Device Used No (0 pt) Altered Elimination No (0 pt) Score/Fall Risk Level 0 - 2 = Low Risk Oriented to surroundings, Maintained a safe environment. Abuse screen: Denies threats or abuse. Nutritional screening: No deficits noted. Tuberculosis screening: No symptoms or risk factors identified. Assessment: 00:57 General: Appears in no apparent distress. Behavior is calm, cooperative. GI: Abdomen is kl non-distended, Abd is soft and non tender. Vital Signs: 03/30 21:14 BP 123 / 91; Pulse 97; Resp 20; Temp 97.8; Pulse Ox 100% ; bp 03/31 00:59 Pulse 78; Resp 16; Temp 97(TE); Pulse Ox 99% on R/A; kl ED Course: 03/30 20:39 Patient arrived in ED. ag3 21:01 Tea Hooper FNP-C [facility]. kb 21:01 Shawn Pollard MD is Attending Physician. kb 21:15 Triage completed. bp 21:15 Arm band placed on. bp 03/31 00:20 CT Stone Protocol In Process Unspecified. EDMS 00:58 No provider procedures requiring assistance completed. Patient did not have IV access kl during this emergency room visit. Administered Medications: 00:38 Drug: Ketorolac IM 30 mg Route: IM; Site: right deltoid; 00:57 Follow up: Response: No adverse reaction kl 00:38 Drug: Ondansetron PO 4 mg Route: PO; 00:57 Follow up: Response: No adverse reaction kl Outcome: 03/30 22:26 Discharge ordered by . 03/31 00:58 Discharged to home ambulatory. kl Condition: stable Discharge instructions given to patient, Instructed on discharge instructions, follow up and referral plans. medication usage, Demonstrated understanding of instructions, follow-up care, medications, Prescriptions given X 1. 00:59 Patient left the ED. Signatures: Dispatcher [employer] EDCT Tea Hooper FNP-C FNP-Ckb Lewis, Kimberly, RN RN kl Peltier, Brian, RN RN bp Gomez, Alice ag3
[2023-03-30 23:15] LABS: Specific Gravity 1.027 (1.005-1.030)
[2023-03-31] MEDS ORDERED: KETOROLAC 30 MG/ML INJ ONE (00:45)
[2023-03-31] MEDS ORDERED: ONDANSETRON 4 MG (ODT) TAB ONE (00:45)
[2023-03-31 02:24] VITALS: BP 123/91
[2023-03-31 02:26] VITALS: TEMP 97; O2SAT 99
--- NOTE | 2023-03-31 17:55 | RAD REPORT ---
EXAM DESCRIPTION: CT - Stone Protocol - 03/31/2023 6:57 am CLINICAL HISTORY: The patient is 27 years old and is Female; ABD PAIN TECHNIQUE: Axial computed tomography images of the abdomen and pelvis without intravenous contrast. Sagittal and coronal reformatted images were created and reviewed. This CT exam was performed usi ng one or more of the following dose reduction techniques: automated exposure control, adjustment o f the mA and/or kV according to patient size, and/or use of iterative reconstruction technique. DLP: 1382 mGy*cm COMPARISON: CT abdomen and pelvis dated 11/16/2021. FINDINGS: LUNG BASES: Lung bases are clear. HEART: Visualized heart is normal. ABDOMEN: LIVER: Hepatic steatosis. GALLBLADDER AND BILE DUCTS: Unremarkable. No calcified stones. No ductal dilation. PANCREAS: Unremarkable. No ductal dilation. SPLEEN: Unremarkable. No splenomegaly. ADRENALS: Unremarkable. No mass. KIDNEYS AND URETERS: Unremarkable. No obstructing stones. No hydronephrosis. STOMACH AND BOWEL: Unremarkable. No obstruction. No mucosal thickening. PELVIS: APPENDIX: The appendix is seen and is within normal limits. BLADDER: Bladder is decompressed. No stones. REPRODUCTIVE: Left ovarian cyst measuring approximately 2.5 cm. ABDOMEN and PELVIS: INTRAPERITONEAL SPACE: Unremarkable. No free air. No significant fluid collection. BONES/JOINTS: No acute fracture. No dislocation. SOFT TISSUES: Unremarkable. VASCULATURE: Unremarkable. No abdominal aortic aneurysm. LYMPH NODES: Unremarkable. No enlarged lymph nodes. IMPRESSION: 1. No acute abdominal or pelvic abnormality. No obstructive uropathy. 2. Left ovarian cyst measuring approximately 2.5 cm. No follow-up imaging is recommended. Reference: JACR 2019;17(2):248-254 3. Hepatic steatosis. Electronically signed by: Nadeem Dugan DO 03/31/2023 12:45 AM CDT Due to temporary technical issues with the PACS/Fluency reporting system, reports are being signed by the in house radiologists without review as a courtesy to insure prompt reporting. The interpreting radiologist is fully responsible for the content of the report.
== END 2023-03-31 00:59 | disposition home or self-care (01) ==
LOC: ER 20:37
DX: U07.1 COVID-19 (principal); Z88.0 Allergy status to penicillin; Z88.5 Allergy status to narcotic agent; Z88.8 Allergy status to other drugs, medicaments and biological substances; Z91.048 Other nonmedicinal substance allergy status
CPT/HCPCS: 87070; 81025; 87081; 87635; 87804 ×2; 76377; 74176; Q0162 ×2

== ENCOUNTER 2024-01-02 23:00 | Emergency (ER) | payer OTHER ==
[2024-01-02] MEDS ORDERED: ACETAMINOPHEN 500 MG TAB ONE (23:48)
[2024-01-03] LABS: Absolute Basophils 0.1 K/uL (0-0.5); Absolute Eosinophils 0.2 K/uL (0-0.5); Absolute Lymphocytes (CBC) 2.3 K/uL (0.7-4.9); Absolute Monocytes 0.5 K/uL (0.1-1.3); Absolute Neutrophil 6.8 K/uL (1.8-8.0); Basophils % 0.6 % (0-1.3); Eosinophils % 1.8 % (0-4.4); Hematocrit 40.8 % (36.0-45.0); Hemoglobin 13.7 g/dL (12.0-15.0); Lymphocytes % 23.4 % (15.3-44.8); MCH 26.9 pg (27.0-35.0); MCHC 33.6 g/dL (32.0-36.0); MCV 80.1 fL (80-100); MPV 9.1 fL (7.6-11.3); Monocytes % 4.9 % (3.3-12.3); Neutrophils % 69.3 % (41.7-73.7); Nucleated Red Blood Cells % 0.3 % (0-0); Platelets 204 thou/uL (152-406); RBC Red Blood Cell Count 5.09 M/uL (3.86-4.86); Red Cell Distribution Width 15.2 % (12.1-15.2)
[2024-01-03 00:03] LABS: Specific Gravity 1.027 (1.005-1.030); Sqamous Epithelial <5 /HPF (None Seen); Urine Bacteria None Seen /HPF (<20); Urine Bilirubin NEGATIVE (Negative); Urine Blood Negative (Negative); Urine Clarity Clear (Clear); Urine Color Light-Yellow (Yellow); Urine Culture Reflex Order NOT NEEDED; Urine Glucose NEGATIVE (Negative); Urine Ketones NEGATIVE (Negative); Urine Micro Reflex YN NO BILL MICROSCOPIC; Urine Mucus Slight /HPF (None Seen); Urine Nitrite NEGATIVE (Negative); Urine Protein NEGATIVE (Negative); Urine RBC <5 /HPF (None Seen); Urine Urobilinogen 1+ (Normal); Urine WBC <5 /HPF (<5)
[2024-01-03 00:59] LABS: ALT/SGPT 25 U/L (13-56); AST/SGOT < 10 U/L (15-37); Albumin 3.6 g/dL (3.4-5.0); Alkaline Phosphatase 100 U/L (45-117); Anion Gap 3.5 mEq/L (5.0-15.0); BUN Blood Urea Nitrogen 9 mg/dL (7-18); Bicarbonate 27 mEq/L (21-32); Bilirubin Total 0.6 mg/dL (0.2-1.0); Globulin 3.7 g/dL (2.3-3.5); Glomerular Filtration Rate 123 ml/min (=/>90); Glucose Level 90 mg/dL (74-106); HCG, Quantitative 33350 mIU/mL (1-3); Potassium 3.5 mEq/L (3.5-5.1); Protein, Total 7.3 g/dL (6.4-8.2); Sodium Level 135 mEq/L (136-145)
--- NOTE | 2024-01-03 01:45 | EDPHYS ---
Physician Documentation [facility] Name: Deborah Torres Age: 28 yrs Sex: Female : 1995 Arrival Date: 01/02/2024 Time: 23:00 Bed 8 Private MD: ED Physician Reno Villalpando HPI: 01/01 23:04 This 28 yrs old Female presents to ER via Unassigned with complaints of EST 9 sp4 WKS GESTATION, Vaginal Discharge, Pelvic Pain. 01/02 02:19 28-year-old female presents with vaginal spotting and cramps. 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 Estimated delivery date 08/02/2024. EGA 9 weeks 4 days. LMP 10/27/2023. INSTRUCTIONAL MANAGER is Dr. Griffith . INSTRUCTIONAL MANAGER: 01/01 23:15 LMP 10/27/2023, Verified, EDC 08/02/2024, Gestational age from LMP: 9 weeks 5 vc1 days Historical: - Allergies: 23:13 HYDROCODONE; vc1 23:13 PENICILLINS; vc1 23:13 promethazine HCl; vc1 23:13 Tape; vc1 - Home Meds: 23:13 None [Active]; vc1 - PMHx: 23:13 Anxiety; Asthma; Bipolar disorder; Depression; Hypertension; Migraines; Pre-eclampsia; vc1 scoliosis; Thyroid problem; insomnia (Thyroid problem); Sleep apnea; - PSHx: 23:13 section; Tonsillectomy; vc1 - Immunization history:: Client reports having NOT received the Covid vaccine. Flu vaccine is not up to date. - Infectious Disease History:: Denies. - Social history:: Smoking status: Patient reports the use of cigarette tobacco products, 3-5 cigs/day. - Family history:: not pertinent. ROS: 01/02 02:19 Constitutional: Negative for fever, chills, and weight loss, positive vaginal spotting sp4 and pelvic cramps. All other systems are negative, Exam: 02:19 Constitutional: This is a well developed, well nourished patient who is awake, alert, sp4 and in no acute distress. Head/Face: Normocephalic, atraumatic. Eyes: Pupils equal round and reactive to light, extra-ocular motions intact. Lids and lashes normal. Conjunctiva and sclera are not injected. Cornea within normal limits. Periorbital areas with no swelling, redness, or edema. ENT: Nares patent. No nasal discharge, no septal abnormalities noted. Tympanic membranes are normal and external auditory canals are clear. Oropharynx with no redness, swelling, or masses, exudates, or evidence of obstruction, uvula midline. Mucous membranes moist. Neck: Trachea midline, no thyromegaly or masses palpated, and no cervical lymphadenopathy. Supple, full range of motion without nuchal rigidity, or vertebral point tenderness. Chest/axilla: Normal chest wall appearance and motion. Nontender with no deformity. No lesions are appreciated. Cardiovascular: Regular rate and rhythm with a normal S1 and S2. No gallops, murmurs, or rubs. Normal PMI, no JVD. No pulse deficits. Respiratory: Lungs have equal breath sounds bilaterally, clear to auscultation and percussion. No rales, rhonchi or wheezes noted. No increased work of breathing, no retractions or nasal flaring. Abdomen/GI: Soft, with normal bowel sounds. No distension or tympany. No guarding or rebound. No evidence of tenderness throughout. Back: No spinal tenderness. No costovertebral tenderness. Skin: Warm, dry with normal turgor. Normal color with no rashes, no lesions, and no evidence of cellulitis. MS/ Extremity: Pulses equal, no cyanosis. Neurovascular intact. Full, normal range of motion. Neuro: Awake and alert, GCS 15, oriented to person, place, time, and situation. Cranial nerves II-XII grossly intact. Motor strength 5/5 in all extremities. Sensory grossly intact. Psych: Awake, alert, with orientation to person, place and time. Behavior, mood, and affect are within normal limits Vital Signs: 01/01 23:09 BP 117 / 87; Pulse 96; Resp 16; Temp 98.6; Pulse Ox 97% ; Weight 89.81 kg; Height 5 ft. vc1 4 in. ; Pain 0/10; 01/02 00:00 BP 120 / 84; Pulse 92; Resp 16; Pulse Ox 100% on R/A; km8 01:51 BP 117 / 81; Pulse 89; Resp 17 S; Pulse Ox 100% on R/A; vc1 01/01 23:09 Body Mass Index 33.99 (89.81 kg, 162.56 cm) vc1 01/01 23:09 Pain Scale: Adult vc1 [place] Coma Score: 02:19 Eye Response: spontaneous(4). Motor Response: obeys commands(6). Verbal Response: sp4 oriented(5). Total: 15. MDM: 01/01 23:11 Patient medically screened. 4 01/02 02:19 Differential diagnosis: philipp infection, cervicitis, dysfunctional uterine bleeding, sp4 dysmenorrhea, ectopic . Data reviewed: vital signs, nurses notes, lab test result(s), radiologic studies, ultrasound. ED course: EXAMINATION: US PREGNANCYTRANSVAGINAL INDICATION: Female, 28 years old, , bleeding COMPARISON(S): None. TECHNIQUE: Transabdominal and transvaginal ultrasound evaluation of maternal and anatomic structures was performed using grayscale and color Doppler modalities. FINDINGS: UTERUS: Imaged myometrium appears normal. Cervix appears long and closed. GESTATION: Gestational Sac: Present. No perigestational hemorrhage. Yolk Sac: Present with normal morphology. Fetus/Embryo: Present Cardiac activity: 155 bpm [place] rump length: 2.6 cm Estimated gestational age: 9 weeks 4 days Estimated delivery date (JEIMY): 08/02/2024 RIGHT OVARY: Measures 3 x 1.9 x 2.2 cm, with volume of 6 mL. Normal morphology. Normal color and spectral Doppler flow. LEFT OVARY: Measures 2.4 x 2 x 1.8 cm, with volume of 4.3 mL. Normal morphology. Normal color and spectral Doppler flow. OTHER: No visualized free fluid. IMPRESSION: 1. Single, living, intrauterine at 9 weeks 4 days (JEIMY 08/02/2024) on today's ultrasound. No dating discrepancy with available clinical dating. 2. No evidence of gestational complication. . 02:23 ED course: Advised to repeat hCG level in 2 days.. 4 01/01 23:09 Order name: CBC with Diff; Complete Time: :38 sp4 01/01 23:09 Order name: CMP; Complete Time: :38 sp4 01/01 23:10 Order name: HCG-Quantitative; Complete Time: sp4 01/01 23:11 Order name: Urinalysis W/Microscopic; Complete Time: 01:38 sp4 01/02 00:34 Order name: Transvaginal OB EDMS 01/01 23:09 Order name: IV Saline Lock; Complete Time: 23:53 sp4 01/01 23:09 Order name: Labs collected and sent; Complete Time: 23:53 sp4 01/01 23:10 Order name: Saline Lock; Complete Time: 23:53 sp4 Administered Medications: 01/01 23:52 Drug: Acetaminophen PO 1000 mg PO once Route: PO; cm10 01/02 01:52 Follow up: Response: No adverse reaction vc1 Disposition Summary: 01/03/24 01:45 Discharge Ordered Notes: We recommend repeat HCG level in 2 days Location: Home sp4 Problem: new sp4 Symptoms: are unchanged sp4 Condition: Stable sp4 Diagnosis - 10 weeks gestation of sp4 - Fist Trimester , Vaginal bleeding in , Threatened Miscarriage sp4 Followup: sp4 - With: Private Physician - When: 7 - 10 days - Reason: Recheck today's complaints Discharge Instructions: - Discharge Summary Sheet sp4 - Threatened Miscarriage, [id number] sp4 Forms: - Patient Portal Instructions sp4 Signatures: Dispatcher [employer] EDHeydi Chatterjee RN RN vc1 Reno Villalpando MD MD sp4 Leesa Bourne RN RN cm10 Corrections: (The following items were deleted from the chart) 00:32 01/01 23:11 OB Limited+US.RAD.ADENZ ordered. EDMS EDMS
--- NOTE | 2024-01-03 01:45 | ER ---
Nurse's Notes [facility] Name: Deborah Torres Age: 28 yrs Sex: Female : 1995 Arrival Date: 01/02/2024 Time: 23:00 Bed 8 Private MD: Diagnosis: 10 weeks gestation of ;Fist Trimester , Vaginal bleeding in , Threatened Miscarriage Presentation: 01/01 23:09 Chief complaint: Patient states: Started cramping and pink discharge after moving vc1 today. Coronavirus screen: Client denies travel out of the [place] in the last 14 days. At this time, the client does not indicate any symptoms associated with coronavirus-19. Ebola Screen: Patient negative for fever greater than or equal to 101.5 degrees Fahrenheit, and additional compatible Ebola Virus Disease symptoms Patient denies exposure to infectious person. Patient denies travel to an Ebola-affected area in the 21 days before illness onset. No symptoms or risks identified at this time. Initial Sepsis Screen: Does the patient meet any 2 criteria? No. Patient's initial sepsis screen is negative. Does the patient have a suspected source of infection? No. Patient's initial sepsis screen is negative. Risk Assessment: Do you want to hurt yourself or someone else? Patient reports no desire to harm self or others. Onset of symptoms was January 02, 2024. 23:09 Method Of Arrival: Ambulatory vc1 23:09 Acuity: NORM 4 vc1 Triage Assessment: 23:15 General: Appears in no apparent distress. comfortable, Behavior is calm, cooperative, vc1 appropriate for age. Pain: Complains of pain in anterior aspect of right lateral abdomen and anterior aspect of left lateral abdomen Pain does not radiate. Pain currently is 0 out of 10 on a pain scale. at worst was 5 out of 10 on a pain scale. Quality of pain is described as crampy. Neuro: Level of Consciousness is awake, alert, obeys commands, Oriented to person, place, time, situation, Appropriate for age. Cardiovascular: Capillary refill Patient's skin is warm and dry. Respiratory: Airway is patent Respiratory effort is even, unlabored, Respiratory pattern is regular, symmetrical. GI: Reports Cramping on lateral bilateral abdomen. : Reports discharge with a pink tint, small amount of vaginal bleeding that has stopped and back to the heavy pink discharge. Derm: Skin is intact, is healthy with good turgor, Skin is dry, Skin is normal, Skin temperature is warm. 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 Flu vaccine is not up to date. - Infectious Disease History:: Denies. - Social history:: Smoking status: Patient reports the use of cigarette tobacco products, 3-5 cigs/day. - Family history:: not pertinent. Screenin:14 [facility] ED Fall Risk Assessment (Adult) History of falling in the last 3 months, vc1 including since admission No falls in past 3 months (0 pts) Confusion or Disorientation No (0 pts) Intoxicated or Sedated No (0 pts) Impaired Gait No (0 pts) Mobility Assist Device Used No (0 pt) Altered Elimination No (0 pt) Score/Fall Risk Level 0 - 2 = Low Risk Oriented to surroundings, Maintained a safe environment, Educated pt \\T\\ family on fall prevention, incl call for assistance when getting out of bed. Abuse screen: Denies threats or abuse. Nutritional screening: No deficits noted. Tuberculosis screening: No symptoms or risk factors identified. Assessment: 23:53 General: Appears in no apparent distress. comfortable, Behavior is calm, cooperative. cm10 Neuro: No deficits noted. Level of Consciousness is awake, alert, obeys commands, Oriented to person, place, time, situation, Appropriate for age. Respiratory: No deficits noted. Airway is patent Respiratory effort is even, unlabored, Respiratory pattern is regular, symmetrical. : Reports discharge, from vagina that is malodorous, [place] and "ooey gooey". Derm: No deficits noted. Skin is healthy with good turgor, Skin is pink, warm \\T\\ dry. 01/02 00:29 Reassessment: Patient appears in no apparent distress at this time. No changes from km8 previously documented assessment. Patient and/or family updated on plan of care and expected duration. Pain level reassessed. Patient is alert, oriented x 3, equal unlabored respirations, skin warm/dry/pink. 01:51 Reassessment: Patient appears in no apparent distress at this time. No changes from vc1 previously documented assessment. Patient and/or family updated on plan of care and expected duration. Pain level reassessed. Patient is alert, oriented x 3, equal unlabored respirations, skin warm/dry/pink. Vital Signs: 01/01 23:09 BP 117 / 87; Pulse 96; Resp 16; Temp 98.6; Pulse Ox 97% ; Weight 89.81 kg; Height 5 ft. vc1 4 in. ; Pain 0/10; 01/02 00:00 BP 120 / 84; Pulse 92; Resp 16; Pulse Ox 100% on R/A; km8 01:51 BP 117 / 81; Pulse 89; Resp 17 S; Pulse Ox 100% on R/A; vc1 01/01 23:09 Body Mass Index 33.99 (89.81 kg, 162.56 cm) vc1 01/01 23:09 Pain Scale: Adult vc1 [place] Coma Score: 02:19 Eye Response: spontaneous(4). Motor Response: obeys commands(6). Verbal Response: sp4 oriented(5). Total: 15. ED Course: 01/01 23:04 Patient arrived in ED. jj6 23:04 Reno Villalpando MD is Attending Physician. sp4 23:13 Triage completed. vc1 23:14 Arm band placed on left wrist. vc1 23:41 Leesa Bourne, ELÍAS is Primary Nurse. cm10 23:53 CBC with Diff Sent. cm10 23:53 CMP Sent. cm10 23:53 HCG-Quantitative Sent. cm10 23:53 Urinalysis W/Microscopic Sent. cm10 23:53 Initial lab(s) drawn, by ED staff, sent to lab. Urine collected: clean catch specimen. cm10 Inserted saline lock: 20 gauge in right antecubital area, using aseptic technique. Blood collected. Missed attempt(s): 20 gauge in right antecubital area. Bleeding controlled, band aid applied, catheter tip intact. 23:54 Patient has correct armband on for positive identification. Bed in low position. Call cm10 light in reach. Side rails up X2. Provided Education on: ER process and procedures. Pulse ox on. NIBP on. 06 00:34 Transvaginal OB In Process Unspecified. EDMS 01:51 No provider procedures requiring assistance completed. IV discontinued, intact, vc1 bleeding controlled, No redness/swelling at site. Pressure dressing applied. Administered Medications: 01/01 23:52 Drug: Acetaminophen PO 1000 mg PO once Route: PO; cm10 01/02 01:52 Follow up: Response: No adverse reaction vc1 Medication: 01/01 23:15 VIS not applicable for this client. vc1 Outcome: 01/02 01:45 Discharge ordered by . mariam 01:52 Discharged to home ambulatory, vc1 01:52 Condition: stable 01:52 Discharge instructions given to patient, Instructed on discharge instructions, follow up and referral plans. Demonstrated understanding of instructions, follow-up care, 01:52 Patient left the ED. vc1 Signatures: Dispatcher [employer] EDNatty Cristina jj6 Heydi Li RN RN vc1 Reno Villalpando MD MD sp4 Leesa Bourne RN RN cm10 Kady Shabazz, ELÍAS RN km8 Corrections: (The following items were deleted from the chart) 00:32 00:32 In radiology for OB [facility].RAD.BRZ. EDMS EDMS
[2024-01-03 02:09] VITALS: BP 117/81; TEMP 98.6; O2SAT 100
--- NOTE | 2024-01-04 10:20 | RAD REPORT ---
EXAM DESCRIPTION: US - Transvaginal OB - 01/03/2024 12:32 am CLINICAL HISTORY: Female, 28 years old, , bleeding COMPARISON: None. TECHNIQUE: Transabdominal and transvaginal ultrasound evaluation of maternal and anatomic stru ctures was performed using grayscale and color Doppler modalities. FINDINGS: UTERUS: Imaged myometrium appears normal. Cervix appears long and closed. GESTATION: Gestational Sac: Present. No perigestational hemorrhage. Yolk Sac: Present with normal morphology. Fetus/Embryo: Present Cardiac activity: 155 bpm [place] rump length: 2.6 cm Estimated gestational age: 9 weeks 4 days Estimated delivery date (JEIMY): 08/02/2024 RIGHT OVARY: Measures 3 x 1.9 x 2.2 cm, with volume of 6 mL. Normal morphology. Normal color and spec tral Doppler flow. LEFT OVARY: Measures 2.4 x 2 x 1.8 cm, with volume of 4.3 mL. Normal morphology. Normal color and spe ctral Doppler flow. OTHER: No visualized free fluid. IMPRESSION: 1. Single, living, intrauterine at 9 weeks 4 days (JEIMY 08/02/2024) on today' s ultrasound. No dating discrepancy with available clinical dating. 2. No evidence of gestational complication. Electronically signed by: Live Morales MD 01/03/2024 01:04 AM CDT Due to temporary technical issues with the PACS/Fluency reporting system, reports are being signed by the in house radiologist without review as a courtesy to ensure prompt reporting. The interpreting r adiologist is fully responsible for the content of the report.
== END 2024-01-03 01:52 | disposition home or self-care (01) ==
LOC: ER 23:00
DX: O20.0 Threatened abortion (principal); Z3A.10 10 weeks gestation of pregnancy; O16.1 Unspecified maternal hypertension, first trimester; O26.891 Other specified pregnancy related conditions, first trimester; J45.909 Unspecified asthma, uncomplicated; G43.909 Migraine, unspecified, not intractable, without status migrainosus; G47.30 Sleep apnea, unspecified; G47.00 Insomnia, unspecified; F41.9 Anxiety disorder, unspecified; F31.9 Bipolar disorder, unspecified; O99.331 Smoking (tobacco) complicating pregnancy, first trimester; F17.210 Nicotine dependence, cigarettes, uncomplicated; Z88.0 Allergy status to penicillin; Z88.5 Allergy status to narcotic agent; Z91.09 Other allergy status, other than to drugs and biological substances
CPT/HCPCS: 36415; 76817; 80053; 81001; 84702; 85025; 99284

== ENCOUNTER 2024-01-08 10:54 | Emergency (ER) | payer OTHER ==
--- NOTE | 2024-01-08 12:01 | ER ---
Nurse's Notes [facility] Name: Deborah Torres Age: 28 yrs Sex: Female : 1995 Arrival Date: 01/08/2024 Time: 10:54 Bed DIS2 Private MD: Diagnosis: Vomiting;Diarrhea, unspecified;10 weeks gestation of Presentation: 01/07 11:09 Chief complaint: Patient states: N/V/D, acid reflux, 3-4 days. 10 weeks . G18, ll1 P4. Coronavirus screen: Client denies travel out of the [place] in the last 14 days. At this time, the client does not indicate any symptoms associated with coronavirus-19. Ebola Screen: Patient denies travel to an Ebola-affected area in the 21 days before illness onset. Initial Sepsis Screen: Does the patient meet any 2 criteria? No. Patient's initial sepsis screen is negative. Does the patient have a suspected source of infection? No. Patient's initial sepsis screen is negative. Risk Assessment: Do you want to hurt yourself or someone else? Patient reports no desire to harm self or others. Onset of symptoms was January 04, 2024. 11:09 Method Of Arrival: Ambulatory ll1 11:09 Acuity: NORM 3 ll1 Triage Assessment: 11:10 General: Appears in no apparent distress. Behavior is calm, cooperative, appropriate ll1 for age. GI: Reports diarrhea, nausea, vomiting. 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 - Infectious Disease History:: Denies. - Social history:: Smoking status: Patient reports the use of cigarette tobacco products, smokes one-half pack cigarettes per day. - Family history:: not pertinent. - Hospitalizations: : No recent hospitalization is reported. Screenin:59 [facility] ED Fall Risk Assessment (Adult) History of falling in the last 3 months, tl4 including since admission No falls in past 3 months (0 pts) Confusion or Disorientation No (0 pts) Intoxicated or Sedated No (0 pts) Impaired Gait No (0 pts) Mobility Assist Device Used No (0 pt) Altered Elimination No (0 pt) Score/Fall Risk Level 0 - 2 = Low Risk Oriented to surroundings, Maintained a safe environment, Educated pt \T\ family on fall prevention, incl call for assistance when getting out of bed, Assessed \T\ reinforced patient's understanding of fall precautions. Abuse screen: Denies threats or abuse. Denies injuries from another. Nutritional screening: No deficits noted. Tuberculosis screening: No symptoms or risk factors identified. Assessment: 12:57 General: Appears in no apparent distress. Behavior is calm, cooperative. Pain: Denies tl4 pain. Neuro: Level of Consciousness is awake, alert, obeys commands, Oriented to person, place, time, situation, Moves all extremities. Full function Gait is steady. Cardiovascular: Capillary refill < 3 seconds Patient's skin is warm and dry. Respiratory: Airway is patent Respiratory effort is even, unlabored, Respiratory pattern is regular, symmetrical. GI: Abdomen is non-distended, Reports nausea, vomiting. : No signs and/or symptoms were reported regarding the genitourinary system. EENT: No signs and/or symptoms were reported regarding the EENT system. Derm: No signs and/or symptoms reported regarding the dermatologic system. Musculoskeletal: No signs and/or symptoms reported regarding the musculoskeletal system. 13:09 Reassessment: Delay to discharge due to attempting to obtain FHT, pt needing to be tl4 medicated prior to discharge at her request. Vital Signs: 11:09 BP 141 / 101; Pulse 78; Resp 16; Temp 97.4; Pulse Ox 98% ; Height 5 ft. 4 in. ; Pain ll1 0/10; 12:58 BP 122 / 67; Pulse 70; Resp 16; Temp 98.6(O); Pulse Ox 98% on R/A; Pain 0/10; tl4 11:09 Pain Scale: Adult ll1 12:58 Pain Scale: Adult tl4 ED Course: 11:02 Patient arrived in ED. im 11:03 Atul, Shawn, MD is Attending Physician. [facility] 11:10 Triage completed. ll1 11:10 Arm band placed on. ll1 12:59 Patient has correct armband on for positive identification. Bed in low position. Call tl4 light in reach. Side rails up X 1. Provided Education on: call mosley. 13:00 No provider procedures requiring assistance completed. Patient did not have IV access tl4 during this emergency room visit. Administered Medications: 13:05 Drug: Ondansetron Oral Disintegrating Tablet Oral Disintegrating Tablet 4 mg PO once tl4 Route: PO; 13:05 Follow up: Response: No adverse reaction; Medication administered at discharge. tl4 Medication: 12:59 VIS not applicable for this client. tl4 Outcome: 12:01 Discharge ordered by . [facility] 13:00 Discharged to home ambulatory, with family, tl4 13:00 Condition: stable 13:00 Discharge instructions given to patient, Instructed on discharge instructions, follow up and referral plans. medication usage, Demonstrated understanding of instructions, follow-up care, medications, Prescriptions given X 1, 13:09 Patient left the ED. tl4 Signatures: Shawn Pollard MD MD cha Lewis, Lynsay, RN RN ll1 Nayeli Leone Reinaldo Lopez RN RN tl4 Corrections: (The following items were deleted from the chart) 11:14 11:09 Height 5 ft. 4 in.; Pain 0/10, Adult; ll1 ll1
--- NOTE | 2024-01-08 12:01 | EDPHYS ---
Physician Documentation [facility] Name: Deborah Torres Age: 28 yrs Sex: Female : 1995 Arrival Date: 01/08/2024 Time: 10:54 Bed DIS2 Private MD: ED Physician Shawn Pollard HPI: 01/07 11:56 This 28 yrs old Female presents to ER via Ambulatory with complaints of emilie Vomiting/Diarrhea, 10 weeks . 11:56 The patient presents to the emergency department with nausea, vomiting, that is emilie intermittent. Onset: The symptoms/episode began/occurred 2 day(s) ago. Possible causes: unknown. The symptoms are aggravated by nothing. The symptoms are alleviated by nothing. Associated signs and symptoms: The patient has no apparent associated signs or symptoms. 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 - Infectious Disease History:: Denies. - Social history:: Smoking status: Patient reports the use of cigarette tobacco products, smokes one-half pack cigarettes per day. - Family history:: not pertinent. - Hospitalizations: : No recent hospitalization is reported. ROS: 11:56 Constitutional: Negative for fever, chills, and weight loss, Eyes: Negative for injury, emilie pain, redness, and discharge, ENT: Negative for injury, pain, and discharge, Neck: Negative for injury, pain, and swelling, Cardiovascular: Negative for chest pain, palpitations, and edema, Respiratory: Negative for shortness of breath, cough, wheezing, and pleuritic chest pain, Back: Negative for injury and pain, : Negative for injury, bleeding, discharge, and swelling, MS/Extremity: Negative for injury and deformity, Skin: Negative for injury, rash, and discoloration, Neuro: Negative for headache, weakness, numbness, tingling, and seizure, Psych: Negative for depression, anxiety, suicide ideation, homicidal ideation, and hallucinations, Allergy/Immunology: Negative for hives, rash, and allergies, Endocrine: Negative for neck swelling, polydipsia, polyuria, polyphagia, and marked weight changes, Hematologic/Lymphatic: Negative for swollen nodes, abnormal bleeding, and unusual bruising, 11:56 Abdomen/GI: Positive for abdominal cramps, Exam: 11:56 Constitutional: This is a well developed, well nourished patient who is awake, alert, emilie and in no acute distress. Head/Face: Normocephalic, atraumatic. Eyes: Pupils equal round and reactive to light, extra-ocular motions intact. Lids and lashes normal. Conjunctiva and sclera are non-icteric and not injected. Cornea within normal limits. Periorbital areas with no swelling, redness, or edema. ENT: Nares patent. No nasal discharge, no septal abnormalities noted. Tympanic membranes are normal and external auditory canals are clear. Oropharynx with no redness, swelling, or masses, exudates, or evidence of obstruction, uvula midline. Mucous membranes moist. Neck: Trachea midline, no thyromegaly or masses palpated, and no cervical lymphadenopathy. Supple, full range of motion without nuchal rigidity, or vertebral point tenderness. No Meningismus. Chest/axilla: Normal chest wall appearance and motion. Nontender with no deformity. No lesions are appreciated. Cardiovascular: Regular rate and rhythm with a normal S1 and S2. No gallops, murmurs, or rubs. Normal PMI, no JVD. No pulse deficits. Respiratory: Lungs have equal breath sounds bilaterally, clear to auscultation and percussion. No rales, rhonchi or wheezes noted. No increased work of breathing, no retractions or nasal flaring. Abdomen/GI: Soft, non-tender, with normal bowel sounds. No distension or tympany. No guarding or rebound. No evidence of tenderness throughout. Back: No spinal tenderness. No costovertebral tenderness. Full range of motion. Skin: Warm, dry with normal turgor. Normal color with no rashes, no lesions, and no evidence of cellulitis. MS/ Extremity: Pulses equal, no cyanosis. Neurovascular intact. Full, normal range of motion. Neuro: Awake and alert, GCS 15, oriented to person, place, time, and situation. Cranial nerves II-XII grossly intact. Motor strength 5/5 in all extremities. Sensory grossly intact. Cerebellar exam normal. Normal gait. Psych: Awake, alert, with orientation to person, place and time. Behavior, mood, and affect are within normal limits. Vital Signs: 11:09 BP 141 / 101; Pulse 78; Resp 16; Temp 97.4; Pulse Ox 98% ; Height 5 ft. 4 in. ; Pain ll1 0/10; 12:58 BP 122 / 67; Pulse 70; Resp 16; Temp 98.6(O); Pulse Ox 98% on R/A; Pain 0/10; tl4 11:09 Pain Scale: Adult ll1 12:58 Pain Scale: Adult tl4 MDM: 11:03 Patient medically screened. [facility] 12:00 Differential diagnosis: Nonspecific abd pain, viral gastroenteritis, gastroenteritis. emilie Data reviewed: vital signs, nurses notes. Consideration of Admission/Observation Escalation of care including admission/observation considered. I considered the following discharge prescriptions or medication management in the emergency department Medications were administered in the Emergency Department. See MAR. Test considered but Not performed: Labs: NO LABS. 01/07 11:56 Order name: PO challenge; Complete Time: 12:30 [facility] 01/07 11:56 Order name: FHT's; Complete Time: 12:49 emilie Administered Medications: 13:05 Drug: Ondansetron Oral Disintegrating Tablet Oral Disintegrating Tablet 4 mg PO once tl4 Route: PO; 13:05 Follow up: Response: No adverse reaction; Medication administered at discharge. tl4 Disposition Summary: 01/08/24 12:01 Discharge Ordered Notes: Location: Home emilie Problem: new emilie Symptoms: have improved emilie Condition: Stable emilie Diagnosis - Vomiting emilie - Diarrhea, unspecified emilie - 10 weeks gestation of emilie Followup: emilie - With: Private Physician - When: 5 - 6 days - Reason: Recheck today's complaints, Re-evaluation by your physician Discharge Instructions: - Discharge Summary Sheet emilie - Food Choices to Help Relieve Diarrhea, Adult emilie - Diarrhea, Adult emilie - First Trimester of , [id number] emilie - First Trimester of emilie - Vomiting, Adult emilie Forms: - Medication Reconciliation Form emilie - Antibiotic Education emilie - Prescription Opioid Use emilie - Patient Portal Instructions [facility] - Leadership Thank You Letter emilie Prescriptions: - ondansetron 4 mg Oral Tablet,disintegrating - take 1 tablet ORAL route every 8-12 hours for 5 days; 20 tablet; Refills: 0, emilie Product Selection Permitted Signatures: Shawn Pollard, Geeta Casarez MD, cha RN RN ll1 Reinaldo Lopez RN RN tl4
[2024-01-08] MEDS ORDERED: ONDANSETRON 4 MG (ODT) TAB ONE (13:04)
[2024-01-08 14:22] VITALS: BP 122/67; TEMP 98.6; O2SAT 98
== END 2024-01-08 13:09 | disposition home or self-care (01) ==
LOC: ER 10:54
DX: O21.9 Vomiting of pregnancy, unspecified (principal); O26.891 Other specified pregnancy related conditions, first trimester; R19.7 Diarrhea, unspecified; Z3A.10 10 weeks gestation of pregnancy; O99.331 Smoking (tobacco) complicating pregnancy, first trimester; F17.210 Nicotine dependence, cigarettes, uncomplicated; Z88.0 Allergy status to penicillin; Z88.5 Allergy status to narcotic agent
CPT/HCPCS: 99283; Q0162

== ENCOUNTER 2024-04-13 20:39 | Emergency (ER) | payer OTHER ==
--- NOTE | 2024-04-13 21:35 | RAD REPORT ---
EXAM DESCRIPTION: US - OB Limited - 04/13/2024 9:24 pm CLINICAL HISTORY: with abdominal pain FINDINGS: Single live intrauterine in breech presentation. Placenta posterior. No subchorionic/retroplacental bleed. Amniotic fluid normal. Cervix 5 centimeters. Femur length 4.3 centimeters Cardiac activity 144 beats per minute. Right and left at adnexa unremarkable IMPRESSION: Single live intrauterine in breech presentation Estimated gestational age 24 weeks 2 days JEIMY 08/01/2024 No retroplacental/subchorionic bleed
[2024-04-13] MEDS ORDERED: NA CHLORIDE 0.9% 1,000 ML ONE (21:41)
[2024-04-13] MEDS ORDERED: PROMETHAZINE INJ 25 MG/ML AMP ONE (21:41)
[2024-04-13] MEDS ORDERED: ONDANSETRON 4 MG/2 ML VIAL ONE (21:48)
[2024-04-13 22:04] LABS: Absolute Eosinophils 0.2 K/uL (0-0.5); Absolute Lymphocytes (CBC) 2.2 K/uL (0.7-4.9); Absolute Monocytes 0.5 K/uL (0.1-1.3); Absolute Neutrophil 8.7 K/uL (1.8-8.0); Basophils % 0.3 % (0-1.3); Eosinophils % 1.4 % (0-4.4); Hematocrit 36.1 % (36.0-45.0); Hemoglobin 12.4 g/dL (12.0-15.0); Lymphocytes % 19.3 % (15.3-44.8); MCH 28.1 pg (27.0-35.0); MCHC 34.3 g/dL (32.0-36.0); MCV 81.9 fL (80-100); MPV 8.9 fL (7.6-11.3); Monocytes % 4.1 % (3.3-12.3); Neutrophils % 74.9 % (41.7-73.7); Platelets 196 thou/uL (152-406); RBC Red Blood Cell Count 4.41 M/uL (3.86-4.86); Red Cell Distribution Width 13.6 % (12.1-15.2)
[2024-04-13 22:13] LABS: ALT/SGPT 16 U/L (13-56); Albumin 2.7 g/dL (3.4-5.0); Albumin/Globulin Ratio 0.6 (1.1-1.8); Alkaline Phosphatase 112 U/L (45-117); Anion Gap 9.5 mEq/L (5.0-15.0); BUN Blood Urea Nitrogen 6 mg/dL (7-18); Bicarbonate 26 mEq/L (21-32); Bilirubin Total 0.5 mg/dL (0.2-1.0); Globulin 4.2 g/dL (2.3-3.5); Glomerular Filtration Rate 125 ml/min (=/>90); Glucose Level 80 mg/dL (74-106); Potassium 3.5 mEq/L (3.5-5.1); Protein, Total 6.9 g/dL (6.4-8.2); Sodium Level 139 mEq/L (136-145)
[2024-04-13 22:14] LABS: AST/SGOT < 10 U/L (15-37)
[2024-04-13] MEDS ORDERED: FAMOTIDINE 20 MG/2 ML VIAL IV ONE (22:23)
[2024-04-13 22:25] LABS: SARS-CoV-2 Antigen CONTROL BLUE LINE VIS/BG OK; SARS-CoV-2 Antigen Rapid Res Negative (Negative)
[2024-04-13 22:35] LABS: Specific Gravity 1.022 (1.005-1.030); Urine Bacteria None Seen /HPF (<20); Urine Bilirubin NEGATIVE (Negative); Urine Blood Negative (Negative); Urine Clarity Extremely Turbid (Clear); Urine Color Yellow (Yellow); Urine Culture Reflex Order NOT NEEDED; Urine Glucose NEGATIVE (Negative); Urine Ketones NEGATIVE (Negative); Urine Microscopic Reflex YN ORDER UMIC; Urine Mucus Slight /HPF (None Seen); Urine Nitrite NEGATIVE (Negative); Urine Protein TRACE (Negative); Urine RBC <5 /HPF (None Seen); Urine Urobilinogen Normal (Normal); Urine WBC <5 /HPF (<5)
--- NOTE | 2024-04-13 22:43 | ER ---
Nurse's Notes [facility] Name: Deborah Torres Age: 28 yrs Sex: Female : 1995 Arrival Date: 04/13/2024 Time: 20:39 Bed DX3 Private MD: Diagnosis: Nausea with vomiting, unspecified;Abdominal pain, Generalized Presentation: 04/13 21:05 Chief complaint: Patient states: Body aches, nausea and vomiting X2 days. PT reports cm10 that her kids had COVID and Strep last week. Coronavirus screen: Client denies travel out of the [place] in the last 14 days. At this time, the client does not indicate any symptoms associated with coronavirus-19. Ebola Screen: Patient denies travel to an Ebola-affected area in the 21 days before illness onset. No symptoms or risks identified at this time. Initial Sepsis Screen: Does the patient meet any 2 criteria? No. Patient's initial sepsis screen is negative. Does the patient have a suspected source of infection? No. Patient's initial sepsis screen is negative. Risk Assessment: Do you want to hurt yourself or someone else? Patient reports no desire to harm self or others. Onset of symptoms was April 11, 2024. 21:05 Method Of Arrival: Ambulatory cm10 21:05 Acuity: NORM 3 cm10 Triage Assessment: 21:07 General: Appears in no apparent distress. comfortable, Behavior is calm, cooperative. cm10 Neuro: No deficits noted. Level of Consciousness is awake, alert, obeys commands, Oriented to person, place, time, situation, Appropriate for age. Respiratory: No deficits noted. Airway is patent Respiratory effort is even, unlabored, Respiratory pattern is regular, symmetrical. Historical: - Allergies: 21:07 HYDROCODONE; cm10 21:07 PENICILLINS; cm10 21:07 promethazine HCl; cm10 21:07 Tape; cm10 - PMHx: 21:07 Anxiety; Asthma; Bipolar disorder; Depression; Hypertension; insomnia (Thyroid cm10 problem); Migraines; Pre-eclampsia; scoliosis; Sleep Apnea; Thyroid problem; - PSHx: 21:07 section; Tonsillectomy; cm10 - Immunization history:: Adult Immunizations up to date. - Infectious Disease History:: Denies. - Social history:: Smoking status: unknown. Screenin:50 [facility] ED Fall Risk Assessment (Adult) History of falling in the last 3 months, lg3 including since admission No falls in past 3 months (0 pts) Confusion or Disorientation No (0 pts) Intoxicated or Sedated No (0 pts) Impaired Gait No (0 pts) Mobility Assist Device Used No (0 pt) Altered Elimination No (0 pt) Score/Fall Risk Level 0 - 2 = Low Risk Oriented to surroundings, Maintained a safe environment, Educated pt \T\ family on fall prevention, incl call for assistance when getting out of bed, Assessed \T\ reinforced patient's understanding of fall precautions. Abuse screen: Denies threats or abuse. Denies injuries from another. Nutritional screening: No deficits noted. Tuberculosis screening: No symptoms or risk factors identified. Assessment: 21:50 General: Appears in no apparent distress. comfortable, Behavior is calm, cooperative. lg3 Pain: Complains of pain in body aches. Neuro: No deficits noted. [place] Agitation-Sedation Scale (RASS): 0 - Alert and Calm Level of Consciousness is awake, alert, obeys commands, Oriented to person, place, time, situation. Cardiovascular: No deficits noted. Denies chest pain, shortness of breath, Capillary refill < 3 seconds Clubbing of nail beds is absent JVD is absent Patient's skin is warm and dry. Respiratory: No deficits noted. Airway is patent Respiratory effort is even, unlabored, Respiratory pattern is regular, symmetrical. GI: Abdomen is round non-distended, Reports nausea, vomiting. : No deficits noted. No signs and/or symptoms were reported regarding the genitourinary system. EENT: No deficits noted. No signs and/or symptoms were reported regarding the EENT system. Derm: No deficits noted. No signs and/or symptoms reported regarding the dermatologic system. Skin is intact, is healthy with good turgor, Skin is dry, Skin is normal, Skin temperature is warm. Musculoskeletal: No deficits noted. Circulation, motion, and sensation intact. Range of motion: intact in all extremities. 22:51 Reassessment: Patient appears in no apparent distress at this time. No changes from lg3 previously documented assessment. Patient and/or family updated on plan of care and expected duration. Pain level reassessed. Patient is alert, oriented x 3, equal unlabored respirations, skin warm/dry/pink. Patient states feeling better. Patient states symptoms have improved. Vital Signs: 21:05 BP 128 / 81; Pulse 95; Resp 16; Temp 98.3(O); Pulse Ox 98% on R/A; Weight 88.9 kg (R); cm10 Height 5 ft. 4 in. ; Pain 7/10; 21:05 Body Mass Index 33.64 (88.90 kg, 162.56 cm) cm10 21:05 Pain Scale: Adult cm10 ED Course: 20:40 Patient arrived in ED. [id number] 20:42 Tea Hooper FNP-C [facility] kb 20:42 Reno Villalpando MD is Attending Physician. kb 21:07 Triage completed. cm10 21:07 Arm band placed on Patient placed in waiting room. cm10 21:26 OB Limited US In Process Unspecified. EDMS 21:45 Inserted saline lock: 20 gauge in right antecubital area, using aseptic technique. ty Blood collected. Flushed with 10 mL NS. 21:45 Initial lab(s) drawn, by me, sent to lab. COVID swab sent to lab. Flu and/or RSV swab ty sent to lab. Strep swab sent to lab. 21:49 Flu Sent. ty 21:49 SARS-COV-2 Antigen Rapid Sent. ty 21:49 Strep Sent. ty 21:49 CMP Sent. ty 21:49 CBC with Diff Sent. ty 21:50 Patient has correct armband on for positive identification. lg3 22:52 No provider procedures requiring assistance completed. IV discontinued, intact, lg3 bleeding controlled, No redness/swelling at site. Pressure dressing applied. Administered Medications: 21:45 Drug: NS 0.9% IV 1000 ml IV at 1000 ml once Route: IV; Rate: 1000 ml; Site: right lg3 antecubital; 22:52 Follow up: IV Status: Completed infusion; IV Intake: 1000ml lg3 21:46 CANCELLED (Other Intervention Used): promethazine6.25 mg IVP once kb 21:49 Drug: Ondansetron IVP 4 mg IVP once; over 2 minutes Route: IVP; Site: right antecubital;lg3 22:51 Follow up: Response: No adverse reaction; Marked relief of symptoms lg3 22:27 Drug: Famotidine IVP 20 mg IVP once; dilute with 10 mL 0.9% NaCl; give over 2 minutes lg3 Route: IVP; Site: right antecubital; 22:51 Follow up: Response: No adverse reaction; Marked relief of symptoms lg3 Medication: 21:50 VIS not applicable for this client. lg3 Intake: :52 IV: 1000ml; Total: 1000ml. lg3 Outcome: 22:42 Discharge ordered by MD. caceres 22:52 Discharged to home ambulatory, lg3 22:52 Condition: stable 22:52 Discharge instructions given to patient, Instructed on discharge instructions, follow up and referral plans. Demonstrated understanding of instructions, follow-up care, :52 Patient left the ED. lg3 Signatures: Dispatcher [employer] EDMS Tea Hooper, HUMERA-C PLATING OPERATOR-Diane Sanchez RN RN lg3 Natty Cruz6 Leesa Bourne RN RN cm10 Orlando Troy
--- NOTE | 2024-04-13 22:43 | EDPHYS ---
Physician Documentation [facility] Name: Deborah Torres Age: 28 yrs Sex: Female : 1995 Arrival Date: 04/13/2024 Time: 20:39 Bed DX3 Private MD: ED Physician Reno Villalpando HPI: 04/14 00:34 This 28 yrs old Female presents to ER via Ambulatory with complaints of Est 24 wks kb gestation, Nausea/Vomiting. 00:34 Patient is a 28-year-old female who presents for body aches, nausea, vomiting, kb abdominal pain, malaise and fatigue for 2 days. States that 2 of her children had COVID last week and the other 2 had strep last week so she thinks she is getting 1 of those. Patient also reports she is approximately 24 weeks .. Historical: - Allergies: 04/13 21:07 HYDROCODONE; cm10 21:07 PENICILLINS; cm10 21:07 promethazine HCl; cm10 21:07 Tape; cm10 - PMHx: 21:07 Anxiety; Asthma; Bipolar disorder; Depression; Hypertension; insomnia (Thyroid cm10 problem); Migraines; Pre-eclampsia; scoliosis; Sleep Apnea; Thyroid problem; - PSHx: 21:07 section; Tonsillectomy; cm10 - Immunization history:: Adult Immunizations up to date. - Infectious Disease History:: Denies. - Social history:: Smoking status: unknown. ROS: 04/14 00:33 Constitutional: As per HPI kb Exam: 00:32 Constitutional: This is a well developed, well nourished patient who is awake, alert, kb and in no acute distress. Head/Face: Normocephalic, atraumatic. ENT: Moist Mucous membranes Cardiovascular: Regular rate Respiratory: Respirations even and unlabored. No increased work of breathing. Talking in full sentences Skin: Warm, dry with normal turgor. Normal color. MS/ Extremity: Pulses equal, no cyanosis. Neurovascular intact. Full, normal range of motion. Neuro: Awake and alert, GCS 15, oriented to person, place, time, and situation. Moves all extremities. Normal gait. 00:32 Abdomen/GI: Inspection: abdomen appears normal, Bowel sounds: normal, Palpation: soft, in all quadrants, mild abdominal tenderness, in all quadrants, Vital Signs: 04/13 21:05 BP 128 / 81; Pulse 95; Resp 16; Temp 98.3(O); Pulse Ox 98% on R/A; Weight 88.9 kg (R); cm10 Height 5 ft. 4 in. ; Pain 02/09; 21:05 Body Mass Index 33.64 (88.90 kg, 162.56 cm) cm10 21:05 Pain Scale: Adult cm10 MDM: 20:42 Patient medically screened. kb 04/14 00:33 Differential diagnosis: Abnormal electrolytes, dehydration, COVID, flu, strep. Data kb reviewed: vital signs, nurses notes. Counseling: I had a detailed discussion with the patient and/or guardian regarding the historical points, exam findings, and any diagnostic results supporting the discharge/admit diagnosis, lab results, radiology results, the need for outpatient follow up, a family practitioner, to return to the emergency department if symptoms worsen or persist or if there are any questions or concerns that arise at home. ED course: Patient tolerating p.o. intake after treatment. Educated to follow-up with OB.. 04/13 21:08 Order name: CBC with Diff; Complete Time: 22:13 kb 04/13 21:08 Order name: CMP; Complete Time: 22:18 kb 04/13 21:08 Order name: Strep; Complete Time: 22:13 kb 04/13 21:08 Order name: SARS-COV-2 Antigen Rapid; Complete Time: 22:27 kb 04/13 21:08 Order name: Flu; Complete Time: 22:29 kb 04/13 21:08 Order name: Urinalysis w/ reflexes; Complete Time: 22:38 kb 04/13 22:15 Order name: Throat Culture EDAL 04/13 21:08 Order name: OB Limited US; Complete Time: 21:45 kb 04/13 21:08 Order name: IV Start; Complete Time: 21:49 kb Administered Medications: 04/13 21:45 Drug: NS 0.9% IV 1000 ml IV at 1000 ml once Route: IV; Rate: 1000 ml; Site: right lg3 antecubital; 22:52 Follow up: IV Status: Completed infusion; IV Intake: 1000ml lg3 21:46 CANCELLED (Other Intervention Used): promethazine6.25 mg IVP once kb 21:49 Drug: Ondansetron IVP 4 mg IVP once; over 2 minutes Route: IVP; Site: right antecubital;lg3 22:51 Follow up: Response: No adverse reaction; Marked relief of symptoms lg3 22:27 Drug: Famotidine IVP 20 mg IVP once; dilute with 10 mL 0.9% NaCl; give over 2 minutes lg3 Route: IVP; Site: right antecubital; 22:51 Follow up: Response: No adverse reaction; Marked relief of symptoms lg3 Disposition Summary: 04/13/24 22:42 Discharge Ordered Notes: Location: Home kb Condition: Stable kb Diagnosis - Nausea with vomiting, unspecified kb - Abdominal pain, Generalized kb Followup: kb - With: Emergency Department - When: As needed - Reason: Worsening of condition Followup: kb - With: Private Physician - When: 2 - 3 days - Reason: Recheck today's complaints, Continuance of care, Re-evaluation by your physician Discharge Instructions: - Discharge Summary Sheet kb - Nausea and Vomiting, Adult, [id number] kb - Abdominal Pain, Adult, [id number] kb Forms: - Medication Reconciliation Form kb - Antibiotic Education kb - Prescription Opioid Use kb - Patient Portal Instructions kb - Leadership Thank You Letter kb Addendum: 04/14/2024 23:53 Co-signature as Attending Physician, Reno Villalpando MD I agree with the assessment s p4 and plan of care. I reviewed the patient's care provided by the Advanced Practice Provider and agree with the diagnosis and treatment plan. Signatures: Dispatcher [employer] [facility] Tea Hooper, LEAD MATERIAL HANDLER-C LEAD MATERIAL HANDLER-Ckb Diane Vega, RN RN lg3 Reno Villalpando MD MD sp4 Leesa Bourne RN RN cm10 Corrections: (The following items were deleted from the chart) 04/13 21:08 21:08 CBC+H.LAB.BRZ ordered. EDMS EDMS 21:08 21:08 COMPREHENSIVE METABOLIC PANEL+C.LAB.BRZ ordered. EDAL EDMS 21:08 21:08 Group A Streptococcus Rapid Sc+BA.LAB.BRZ ordered. EDAL EDMS 21:08 21:08 SARS-COV-2 Antigen Rapid+I.LAB.BRZ ordered. EDAL EDMS 21:08 21:08 Influenza Screen (A \T\ B)+BA.LAB.BRZ ordered. EDMS EDMS 21:46 21:08 Promethazine IVP 6.25 mg IVP once ordered. kb kb
[2024-04-13 23:09] VITALS: BP 128/81; TEMP 98.3; O2SAT 98
== END 2024-04-13 22:52 | disposition home or self-care (01) ==
LOC: ER 20:39
DX: O21.9 Vomiting of pregnancy, unspecified (principal); O26.892 Other specified pregnancy related conditions, second trimester; Z3A.24 24 weeks gestation of pregnancy; Z11.52 Encounter for screening for COVID-19
CPT/HCPCS: 96361; 87070; 85025; 81001; 36415; 87081; 80053; 87804 ×2; 76815; 96375; 96374; 99284; 87811; J2550; J2405; J7030